=== PATIENT | female | born 1945 | race Caucasian/White ===

== ENCOUNTER → 2016-11-03 | Outpatient (CLI) | payer BC ==
[~2016-11-03] MED LIST: AMOX500C3 PO; ASPEC81 PO; ATOR10TA82 PO; B-CO1CAP3 PO; CEPH500C2 PO; CLTP PO; COEN75CA PO; CYAN100T6 PO; FISHOIL PO; GLC5 PO; GLC500 PO; LISI-725 PO; MULT-506 PO; PROP1TAB PO; SULF800T23 PO; [UNRECOGNIZED DRUG - OTHER]
--- NOTE | 2016-11-03 15:10 | DIAGNOSTIC IMAGING REPORT ---
RIGHT FOOT MIN 3 VIEWS ROUTINE CLINICAL HISTORY: Right first toe nonhealing wound. Evaluate for osteomyelitis. COMPARISON: None FINDINGS: There is extensive posterior calcaneal spurring. No acute fracture is identified. Tarsometatarsal joints are intact. There is mild soft tissue swelling along the medial aspect of the right first toe. There is no radiographic evidence of osteomyelitis. Lateral view demonstrates a suspected wound along the plantar aspect of the first toe. IMPRESSION: 1. No radiographic evidence of osteomyelitis. 2. Suspected wound along the plantar aspect of the right first toe at the level the proximal phalanx. Electronically signed by: Mando Garzon M.D. 11/03/2016 3:09 PM Dictated Date/Time: 11/03/2016 3:05 PM
== END | disposition home or self-care (01) ==
LOC: C.RAD 14:20
PROVIDERS: ATTEND Physician Assistant
DX: S91.301A Unspecified open wound, right foot, initial encounter (principal); X58.XXXA Exposure to other specified factors, initial encounter

== ENCOUNTER 2017-10-13 12:21 | Inpatient (IN) | payer BC, OTHER ==
[~2017-10-13] VITALS: Ht 162.6 cm; Wt 130.7 kg
[~2017-10-13 12:21] MED LIST changes: -AMOX500C3 PO; -CEPH500C2 PO; -SULF800T23 PO
[2017-10-13] MEDS ORDERED: ETOMIDATE 2 MG/ML 20 ML VIAL IV ONE (12:34)
--- NOTE | 2017-10-13 12:36 | EMERGENCY ROOM VISIT NOTE ---
History Report prepared by Laila: Tino Kennedy Under the Supervision of: Dr. Broderick Singh D.O. First contact with patient: 12:18 Stated Complaint: CARDIAC ASSESSMNET History of Present Illness The patient is a 72 year old female who presents to the Emergency Room via EMS with a persistent need for a cardiac assessment that started this morning. Per EMS, the patient had a syncopal episode, and was found laying next to her television. The patient has been having episodes of vomiting and diarrhea since then, and was presently vomiting upon EMS arrival. She says that every time she vomited, she would be incontinent of urine. The patient was then put on the monitor, and was noted to be in SVT. EMS tried to break it with Adenosine, but the patient would shortly thereafter go back into SVT. Per EMS, the patient would get a little chest pain when she did break out of SVT. The patient states that she currently has abdominal pain. She denies any headaches. She states that she has been eating and drinking okay. Her sugars were noted to be 319. The patient states that she has been compliant with her medications. She notes no history of heart attacks. Source of History: patient, EMS, nursing staff Onset: This morning Position: chest Symptom Intensity: noted to be in SVT that won't break Quality: other (need for cardiac assessment) Associated Symptoms: + LOC, + chest pain, + vomiting, + abdominal pain, + diarrhea, + urinary symptoms (incontinence) Review of Systems See HPI for pertinent positives & negatives. A total of 10 systems reviewed and were otherwise negative. Past Medical & Surgical Medical Problems: (1) Diabetic foot ulcer (2) Diabetic peripheral neuropathy associated with type 2 diabetes mellitus (3) Foot deformity (4) Leukocytosis (5) Loss of sensation Family History No pertinent family history Social History Smoking Status: Former Smoker Alcohol Use: none Drug Use: none Marital Status: Occupation Status: retired Current/Historical Medications Scheduled Aspirin (Aspirin Ec), 81 MG PO DAILY Atorvastatin (Lipitor), 10 MG PO DAILY Calcium Carbonate-Vitamin D W/ (Caltrate 600 Plus), 2 TAB PO DAILY Coenzyme Q10 (Ubidecarenone) (Coq10), 1 TAB PO DAILY Dulaglutide (Trulicity), 1.5 MG INJ WK Glipizide (Glucotrol), 10 MG PO BID Hctz/Lisinopril (Lisinopril/Hctz 10/12.5 Mg), 1 TAB PO DAILY Magnesium Oxide (Mag-Ox), 400 MG PO DAILY Metformin Hcl (Glucophage), 500 MG PO TID Multivitamin (Multivitamin), 1 TAB PO DAILY Oxybutynin Chloride (Ditropan), 5 MG PO BID Polyethylene Glycol-Propylene (Systane), 1 DROPS OPB Q2H Propranolol (Inderal), 60 MG PO BID Venlafaxine Hcl (Venlafaxine Hcl Er), 1 TAB PO DAILY Miscellaneous Medications Cinnamon (Cinnamon), 500 MG PO Allergies Coded Allergies: Cetirizine & Related (Verified Allergy, Intermediate, ANAPHYLAXIS, 10/13/17 ) Hallucinations Hydroxyzine (Verified Allergy, Unknown, 10/13/17) Physical Exam Vital Signs Date Time Temp Pulse Resp B/P (MAP) Pulse Ox O2 Delivery O2 Flow Rate FiO2 10/13/17 16:17 96 Room Air 10/13/17 16:14 79 16 135/100 96 Room Air 10/13/17 15:22 84 16 149/72 96 Room Air 10/13/17 14:41 83 15 97 Room Air 10/13/17 14:40 138/73 10/13/17 14:32 118/68 10/13/17 14:11 86 21 98 Room Air 10/13/17 14:03 117/70 10/13/17 14:00 36.4 87 21 117/70 98 Room Air 10/13/17 13:41 87 20 95 10/13/17 13:36 87 21 112/82 98 Room Air 10/13/17 13:31 89 95/60 10/13/17 13:26 90 27 129/80 97 Room Air 10/13/17 13:21 87 24 126/84 95 Room Air 10/13/17 13:19 89 26 119/74 97 Room Air 10/13/17 13:16 134/62 10/13/17 13:11 119/74 10/13/17 13:10 87 29 119/74 100 Nasal Cannula 2.0 10/13/17 13:07 119/82 10/13/17 13:06 31 119/82 100 Nasal Cannula 3.0 10/13/17 13:03 94 10/13/17 13:02 202/173 10/13/17 12:58 143/103 10/13/17 12:58 94 32 143/103 98 Nasal Cannula 4.0 10/13/17 12:56 /80 10/13/17 12:54 100 43 92 Ambu-Bag 15.0 10/13/17 12:52 120/100 10/13/17 12:51 194 23 99 10/13/17 12:50 194 19 99 10/13/17 12:43 195 31 141/90 100 Nasal Cannula 4.0 10/13/17 12:41 141/90 10/13/17 12:41 200 10/13/17 12:38 97 Nasal Cannula 4.0 10/13/17 12:33 99 Nasal Cannula 4.0 10/13/17 12:33 Nasal Cannula 4.0 10/13/17 12:33 202 29 95 Room Air Physical Exam GENERAL: Patient is listless and slow to respond to questioning. Appeared to be very anxious appearing. EYES: The conjunctivae are clear. The pupils are round and reactive. EARS, NOSE, MOUTH AND THROAT: The nose is without any evidence of any deformity. Mucous membranes are moist tongue is midline NECK: The neck is nontender and supple. RESPIRATORY: Lung sounds are shallow with rales at both bases. No tachypnea appreciated. CARDIOVASCULAR: Heart sounds are tachycardic and regular. No definite murmur noted. GASTROINTESTINAL: The abdomen is moderately distended. No guarding or rigidity noted. MUSCULOSKELETAL/EXTREMITIES: There is no evidence of gross deformity full range of motion is noted in the hips and shoulders SKIN: There is pedal edema bilaterally. NEUROLOGIC: Patient is oriented x3, strength is symmetric. Medical Decision & Procedures ER Provider Diagnostic Interpretation: X-ray results as stated below per interpretation by me and the radiologist. CHEST ONE VIEW PORTABLE CLINICAL HISTORY: EVALUATE RESPIRATORY DISTRESS.DYSPNEA dyspnea COMPARISON STUDY: No previous studies for comparison. FINDINGS: The bones soft tissues and hemidiaphragms are normal. The cardiomediastinal silhouette is normal. The lungs are clear. The pulmonary vasculature is normal. IMPRESSION: Negative chest. The above report was generated using voice recognition software. It may contain grammatical, syntax or spelling errors. Electronically signed by: Aurelio Bee M.D. 10/13/2017 12:59 PM Dictated Date/Time: 10/13/2017 12:59 PM Laboratory Results 10/13/17 12:40 Red Blood Count 5.90, Mean Corpuscular Volume 86.4, Mean Corpuscular Hemoglobin 28.3, Mean Corpuscular Hemoglobin Concent 32.7, Mean Platelet Volume 9.6, Neutrophils (%) (Auto) 89.5, Lymphocytes (%) (Auto) 6.3, Monocytes (%) (Auto) 3.6, Eosinophils (%) (Auto) 0.1, Basophils (%) (Auto) 0.1, Neutrophils # (Auto) 20.20, Lymphocytes # (Auto) 1.41, Monocytes # (Auto) 0.81, Eosinophils # (Auto) 0.02, Basophils # (Auto) 0.03 10/13/17 16:13 Test 10/13/17 12:40 10/13/17 12:45 10/13/17 13:44 10/13/17 16:13 White Blood Count 22.55 K/uL (4.8-10.8) Red Blood Count 5.90 M/uL (4.2-5.4) Hemoglobin 16.7 g/dL (12.0-16.0) Hematocrit 51.0 % (37-47) Mean Corpuscular Volume 86.4 fL (80-100) Mean Corpuscular Hemoglobin 28.3 pg (25-34) Mean Corpuscular Hemoglobin Concent 32.7 g/dl (32-36) Platelet Count 337 K/uL (130-400) Mean Platelet Volume 9.6 fL (7.4-10.4) Neutrophils (%) (Auto) 89.5 % Lymphocytes (%) (Auto) 6.3 % Monocytes (%) (Auto) 3.6 % Eosinophils (%) (Auto) 0.1 % Basophils (%) (Auto) 0.1 % Neutrophils # (Auto) 20.20 K/uL (1.4-6.5) Lymphocytes # (Auto) 1.41 K/uL (1.2-3.4) Monocytes # (Auto) 0.81 K/uL (0.11-0.59) Eosinophils # (Auto) 0.02 K/uL (0-0.5) Basophils # (Auto) 0.03 K/uL (0-0.2) RDW Standard Deviation 42.3 fL (36.4-46.3) RDW Coefficient of Variation 13.4 % (11.5-14.5) Immature Granulocyte % (Auto) 0.4 % Immature Granulocyte # (Auto) 0.08 K/uL (0.00-0.02) Prothrombin Time 11.5 SECONDS (9.0-12.0) Prothromb Time International Ratio 1.1 (0.9-1.1) Activated Partial Thromboplast Time 23.0 SECONDS (21.0-31.0) Partial Thromboplastin Ratio 0.9 Magnesium Level 1.8 mg/dl (1.8-2.4) Total Bilirubin 0.3 mg/dl (0.2-1) Aspartate Amino Transf (AST/SGOT) 52 U/L (15-37) Alanine Aminotransferase (ALT/SGPT) 49 U/L (12-78) Alkaline Phosphatase 111 U/L (45-117) Total Creatine Kinase 67 U/L (26-192) Creatine Kinase MB 1.0 ng/ml (0.5-3.6) Creatine Kinase MB Ratio 1.5 (0-3.0) Troponin I < 0.015 ng/ml (0-0.045) Pro-B-Type Natriuretic Peptide 522 pg/ml (0-900) Total Protein 7.8 gm/dl (6.4-8.2) Albumin 3.2 gm/dl (3.4-5.0) Globulin 4.6 gm/dl (2.5-4.0) Albumin/Globulin Ratio 0.7 (0.9-2) Thyroid Stimulating Hormone (TSH) 3.410 uIu/ml (0.300-4.500) Free Thyroxine 1.23 ng/dl (0.80-1.60) Chemistry Specimen Hemolysis Bedside Hemoglobin 19.0 g/dl (12.0-16.0) Bedside Hematocrit 56 % (37-47) Bedside Sodium 138 mEq/L (135-144) Bedside Potassium 6.6 mEq/L (3.3-5.0) Bedside Chloride 100 mEq/L (101-112) Bedside Total CO2 29 mEq/l (24-31) Bedside Blood Urea Nitrogen 33 mg/dl (7-18) Bedside Creatinine 1.0 mg/dl (0.6-1.3) Bedside Glucose (other) 329 mg/dl (70-99) Bedside Ionized Calcium (Mary) 1.05 mmol/l (1.12-1.32) Bedside Lactic Acid Venous 2.75 mmol/L (0.90-1.70) Anion Gap 8.0 mmol/L (3-11) Est Creatinine Clear Calc Drug Dose 68.9 ml/min Estimated GFR () 63.2 Estimated GFR (Non- 54.5 BUN/Creatinine Ratio 21.6 (10-20) Lactic Acid Level 4.1 mmol/L (0.4-2.0) Calcium Level 8.8 mg/dl (8.5-10.1) Lipase 190 U/L (73-393) Laboratory results per my review. Medications Administered Medications (Trade) Dose Ordered Sig/Tasha Route Start Time Stop Time Status Last Admin Dose Admin Etomidate (Amidate Inj) 40 mg STK-MED ONCE IV 10/13/17 12:34 10/13/17 12:35 DC 10/13/17 12:52 20 MG Adenosine (Adenosine Iv) 6 mg STK-MED ONCE .ROUTE 10/13/17 12:43 10/13/17 12:44 DC 10/13/17 12:48 6 MG Adenosine (Adenosine Iv) 6 mg STK-MED ONCE .ROUTE 10/13/17 12:44 10/13/17 12:45 DC 10/13/17 12:48 6 MG Sodium Chloride 1,000 ml @ 999 mls/hr Q1H1M STAT IV 10/13/17 12:51 10/13/17 13:51 DC 10/13/17 12:51 999 MLS/HR Procedure Indication: Unstable SVT. Written consent was obtained after the risks and benefits were explained, including but not limited to pain, thermal burn, allergic reaction, aspiration, airway obstruction, laryngospasm, infection, hypotension, and cardiorespiratory arrest. At this time, the risks of the procedure are less than the risks of NOT performing the procedure. A time out was taken and the correct patient and procedure identified. The patient was on 100% via NRB and end tidal CO2 monitoring prior to the procedure. Suction, airway equipment, medications, respiratory equipment, ACLS cart, and appropriate personnel were prepared prior to the initiation of the procedure. Sedation was achieved utilizing Etomidate 20 mg. The biphasic defibrillator was set to 200 joules of energy and synched. After confirmation of sedation and "all clear" safety check the synchronized shock was delivered. This resulted in successful conversion of the dysrhythmia back into sinus rhythm. See nursing notes for dosages and times. There were no complications and the patient recovered uneventfully from the procedure. ECG Per My Interpretation Indication: chest pain Rate (beats per minute): 198 Rhythm: SVT Findings: ST depression (diffuse), other (no PVCs) Change: Repeat ECG: Normal sinus rhythm at 100 bpm. No ectopy, no acute ST segment abnormalities. No change from 02/22/12. ED Course 1226: The patient was evaluated in room A1. A complete history and physical examination were performed. 1251: NSS 1000 ml @ 999 mls/hr IV. 1255: The cardioversion with sedation was complete and the patient is recovering. 1328: I reevaluated and updated the patient. 1416: Upon reevaluation, the patient is resting. I discussed results and treatment plan with her. She verbalizes agreement and understanding. The patient will be evaluated for further management and care. 1421: I discussed the patient with Thu Emanuel. She will evaluate the patient for further treatment. Medical Decision Differential diagnosis: Etiologies such as cardiac ischemia, aortic dissection, pulmonary embolism, pneumonia, pneumothorax, musculoskeletal, infections, pericarditis, myocarditis , esophageal rupture, gastrointestinal, as well as others were entertained. Nursing notes reviewed. Additional history is obtained from the prehospital personnel. Additional history was obtained from patient's family members. The patient is a 72-year-old female who presented to the emergency department for syncope. She was found to be in SVT by the prehospital personnel. I received a prehospital medical command call about this patient. Valsalva maneuvers failed to resolve the SVT she also received multiple doses of adenosine. The patient arrived in the emergency department with improvement of her prehospital blood pressure. She was given another dose of adenosine and she still did not resolve her narrow complex tachycardia. Ultimately she started having more symptoms and was treated with synchronized cardioversion. The patient was treated with IV fluids. I discussed the patient's laboratory and radiographic studies with her. She was found to have an elevated white blood cell count but at this time I feel could be consistent with the ongoing SVT. The patient was feeling much better on subsequent reevaluation. I discussed her case with the on-call Critical access hospitalist group. They have agreed to evaluate the patient in the emergency department for further management and disposition. Medication Reconcilliation Current Medication List: was personally reviewed by me Blood Pressure Screening Patient's blood pressure: Normal blood pressure Consults Time Called: 1417 Consulting Physician: Thu Emanuel Returned Call: 1421 I discussed the patient with Thu Emanuel. She will evaluate the patient for further treatment. Impression Primary Impression: SVT (supraventricular tachycardia) Additional Impressions: Elevated WBC count Hyperglycemia Hyperkalemia Critical Care I have personally spent greater than 35 minutes of critical care time in the direct management of this patient. This includes bedside care, interpretation of diagnostic studies, and testing, discussion with consultants, patient, and family members, and other required patient management activities. This 35 minutes is in excess of all separately billable procedures. Scribe Attestation The scribe's documentation has been prepared under my direction and personally reviewed by me in its entirety. I confirm that the note above accurately reflects all work, treatment, procedures, and medical decision making performed by me. Departure Information Dispostion Being Evaluated By Hospitalist Jason Connolly M.D. (PCP) Problem Qualifiers Additional Impressions: Elevated WBC count Leukocytosis type: unspecified Qualified Codes: D72.829 - Elevated white blood cell count, unspecified
[2017-10-13] MEDS ORDERED: ADENOSINE IV SOLN 3 MG/ML 2 ML VIAL ONE ×2 (12:43→12:44)
[2017-10-13] MEDS ORDERED: SODIUM CHLORIDE 0.9% 1000ML 1,000 ML IV STA (12:51)
[2017-10-13 12:54] LABS: HEMOGLOBIN 16.7 g/dL (12.0-16.0); MEAN CELL VOLUME 86.4 fL (80-100); MEAN CORPUSCULAR HEMOGLOBIN 28.3 pg (25-34); MEAN CORPUSCULAR HGB CONC 32.7 g/dl (32-36); MEAN PLATELET VOLUME 9.6 fL (7.4-10.4); PLATELET COUNT 337 K/uL (130-400); RED CELL DISTRIBUTION WIDTH CV 13.4 % (11.5-14.5); RED CELL DISTRIBUTION WIDTH SD 42.3 fL (36.4-46.3); WHITE BLOOD COUNT 22.55 K/uL (4.8-10.8)
[2017-10-13 12:58] LABS: ISTAT IONIZED CALCIUM 1.05 mmol/l (1.12-1.32); ISTAT POTASSIUM 6.6 mEq/L (3.3-5.0)
--- NOTE | 2017-10-13 13:01 | DIAGNOSTIC IMAGING REPORT ---
CHEST ONE VIEW PORTABLE CLINICAL HISTORY: EVALUATE RESPIRATORY DISTRESS.DYSPNEA dyspnea COMPARISON STUDY: No previous studies for comparison. FINDINGS: The bones soft tissues and hemidiaphragms are normal. The cardiomediastinal silhouette is normal. The lungs are clear. The pulmonary vasculature is normal. IMPRESSION: Negative chest. The above report was generated using voice recognition software. It may contain grammatical, syntax or spelling errors. Electronically signed by: Aurelio Bee M.D. 10/13/2017 12:59 PM Dictated Date/Time: 10/13/2017 12:59 PM
[2017-10-13] MEDS ORDERED: VENL75CA73 PO (13:05)
[2017-10-13] MEDS ORDERED: DTR/5 PO (13:05)
[2017-10-13] MEDS ORDERED: GLIP10TA3 PO (13:05)
[2017-10-13] MEDS ORDERED: LISI-786 PO (13:05)
[2017-10-13] MEDS ORDERED: GLC/500 PO (13:05)
[2017-10-13] MEDS ORDERED: ASPI81TA28 PO (13:05)
[2017-10-13] MEDS ORDERED: CALCTAB7 PO (13:05)
[2017-10-13 13:06] VITALS: BP 119/82; O2SAT 100
[2017-10-13 13:08] LABS: INR 1.1 (0.9-1.1)
[2017-10-13 13:10] VITALS: BP 119/74; PULSE 87; O2SAT 100
[2017-10-13 13:17] LABS: ALBUMIN 3.2 gm/dl (3.4-5.0); ALT/SGPT 49 U/L (12-78); BLOOD UREA NITROGEN 21 mg/dl (7-18); CALCIUM 9.4 mg/dl (8.5-10.1); CARBON DIOXIDE 25 mmol/L (21-32); CREATININE 1.12 mg/dl (0.60-1.20); GLUCOSE 320 mg/dl (70-99); POTASSIUM 5.9 mmol/L (3.5-5.1); SODIUM 136 mmol/L (136-145)
[2017-10-13 13:19] VITALS: BP 119/74; PULSE 89; O2SAT 97
[2017-10-13 13:23] LABS: ALKALINE PHOSPHATASE 111 U/L (45-117); AST/SGOT 52 U/L (15-37); TOTAL PROTEIN 7.8 gm/dl (6.4-8.2)
[2017-10-13] MEDS ORDERED: MULT-506 PO (13:28)
[2017-10-13] MEDS ORDERED: CINN1CAP2 PO (13:31)
[2017-10-13] MEDS ORDERED: MAGN400T6 PO (13:31)
[2017-10-13] MEDS ORDERED: COEN1CAP PO (13:31)
[2017-10-13 13:34] LABS: BASO % 0.1 %; BASO ABS # 0.03 K/uL (0-0.2); EOS % 0.1 %; EOS ABS # 0.02 K/uL (0-0.5); IG# 0.08 K/uL (0.00-0.02); LYMPH % 6.3 %; LYMPH ABS # 1.41 K/uL (1.2-3.4); MONO % 3.6 %; MONO ABS # 0.81 K/uL (0.11-0.59); NEUT % 89.5 %
[2017-10-13] MEDS ORDERED: POLYETHYLENE (MIRALAX) 17 GM PACK PO PRN (16:00)
[2017-10-13] MEDS ORDERED: ACETAMINOPHEN 325 MG TAB PO PRN (16:00)
[2017-10-13] MEDS ORDERED: NITROGLYCERIN 0.4 MG SL PER TAB CHARGE SL PRN (16:00)
[2017-10-13] MEDS ORDERED: LSN/10125 PO (16:15)
[2017-10-13] MEDS ORDERED: VENL-273 PO (16:15)
[2017-10-13] MEDS ORDERED: POLYSOL4 OPB (16:15)
[2017-10-13] MEDS ORDERED: COEN150C4 PO (16:15)
[2017-10-13] MEDS ORDERED: DULA0.5I INJ (16:15)
[2017-10-13 16:17] VITALS: O2SAT 96; Ht 162.6 cm; Wt 130.7 kg
[2017-10-13] MEDS ORDERED: ONDANSETRON INJ 2 MG/ML 2 ML VIAL IV PRN (16:30)
[2017-10-13 16:47] LABS: CALCIUM 8.8 mg/dl (8.5-10.1); CREATININE 1.02 mg/dl (0.60-1.20); POTASSIUM 5.6 mmol/L (3.5-5.1)
[2017-10-13] MEDS ORDERED: INSULIN HUMAN REGULAR SC STA (17:31)
[2017-10-13] MEDS ORDERED: SODIUM POLYST. SULF SUSP 15G/60ML PO STA (17:31)
[2017-10-13] MEDS ORDERED: GLUCOSE 10 TABS/TUBE PO PRN (17:45)
[2017-10-13] MEDS ORDERED: DEXTROSE 50% 50 ML SYR IV PRN (17:45)
[2017-10-13] MEDS ORDERED: DC ALL PREVIOUSLY ORDERED DIABETES MEDS ONE (17:45)
[2017-10-13] MEDS ORDERED: GLUCAGON FOR INJ 1 MG VIAL SQ PRN (17:45)
[2017-10-13] MEDS ORDERED: GLUCOSE 40% GEL 15 GM TUBE PO PRN (17:45)
[2017-10-13] MEDS ORDERED: CALCIUM GLUCONATE 10% 1,000 MG in SODIUM CHLORIDE 0.9% 50ML 50 ML IV STA (17:55)
[2017-10-13] MEDS ORDERED: INSULIN HUMAN REGULAR PER UNIT 5 UNITS in SYRINGE 4.95 ML IV SCH (18:00)
[2017-10-13] MEDS ORDERED: INSULIN HUMAN REGULAR PER UNIT 10 UNITS in SYRINGE 9.9 ML IV SCH (18:00)
[2017-10-13] MEDS: SODIUM CHLORIDE 0.9% 1000ML 1,000 ML IV SCH (18:25)
[2017-10-13 20:00] VITALS: PULSE 79; TEMP 36.8; O2SAT 95
--- NOTE | 2017-10-13 20:32 | History and Physical ---
History & Physical Date & Time of Service: Oct 13, 2017 at 16:16 Chief Complaint: Cardiac Assessmnet Primary Care Physician: Jason West M.D. History of Present Illness Source: patient, clinic records, hospital records Pt is 72 y/o F with PMH diabetes mellitus 2, GERD, hypertension, PMR, obesity presented to ER via EMS for SVT. Patient reports this morning was feeling well , ate breakfast at 5:00AM, reports around 8 AM was going to go take a shower. Next thing patient knows she woke up on the floor. Patient reports tried to sit up when she did she had dizziness and reports had recurrent syncope times approximately 8 episodes. 2 family members who found her. EMS was called, upon their arrival patient was found to have repetitive vomiting and loose stools and was found to be in SVT. Patient was given adenosine 2 without conversion. Upon arrival to ER patient was sedated and cardioverted and converted to sinus rhythm. Patient given 1 L normal saline in ER. Patient reports prior to cardioversion was having nausea and diffuse abdominal pain. That has since resolved, no further vomiting or diarrhea. Patient denies any chest pain, shortness of breath, palpitations and denies any further dizziness. Patient denies any recent illness or fevers. Reports has been eating and drinking normally. Drinks 2 cups coffee and 4 cups green tea daily. Fasting blood sugars running 120-140. Was using tylenol a couple of weeks ago for left posterior neck discomfort after reported strain. Denies NSAID use. Denies any history of arrhythmias in the past, denies any history of AK. Patient reports chronic lower extremity edema, denies any worsening. Has ALEXANDER hose and compression boots to wear however reports has not been wearing compression boots recently. Denies fever/chills, SOLORZANO, orthopnea, cough, sore throat, choking , otalgia, rhinorrhea, rashes, hematuria, dysuria. History of cardiac cath 2004: Less than 30% LAD, hyperdynamic LV function. History dobutamine stress test in 2011: No inducible ischemia, EF: 55-59%, no significant valvular disease. Past Medical/Surgical History Medical Problems: (1) Diabetic peripheral neuropathy associated with type 2 diabetes mellitus Status: Chronic (2) DM type 2 (diabetes mellitus, type 2) Status: Chronic (3) GERD (gastroesophageal reflux disease) Status: Chronic (4) HTN (hypertension) Status: Chronic (5) Polymyalgia rheumatica Status: Chronic Surgical Problems: (1) Hx of appendectomy Status: Resolved (2) Hx of carpal tunnel repair Status: Resolved (3) Hx of cholecystitis Status: Resolved (4) Hx of rotator cuff surgery Status: Resolved (5) Hx of total hip arthroplasty Status: Resolved (6) Hx of total knee arthroplasty Status: Resolved Family History FH: CAD (coronary artery disease) FH: cancer Hypertension Social History Smoking Status: Former Smoker (quit 1999 - smoked 1.5 ppd x 35 years) Smokeless Tobacco Use: No Alcohol Use: none Drug Use: none Marital Status: Housing status: lives alone Occupational Status: retired Immunizations History of Influenza Vaccine: N/A Influenza Vaccine Date: May 23, 2010 History of Tetanus Vaccine?: Unknown History of Pneumococcal: Yes History of Hepatitis B Vaccine: No Allergies Coded Allergies: Cetirizine & Related (Verified Allergy, Intermediate, ANAPHYLAXIS, 10/13/17 ) Hallucinations Hydroxyzine (Verified Allergy, Unknown, 10/13/17) Home Medications Scheduled Aspirin (Aspirin Ec), 81 MG PO DAILY Atorvastatin (Lipitor), 10 MG PO DAILY Calcium Carbonate-Vitamin D W/ (Caltrate 600 Plus), 2 TAB PO DAILY Coenzyme Q10 (Ubidecarenone) (Coq10), 1 TAB PO DAILY Dulaglutide (Trulicity), 1.5 MG INJ WK Glipizide (Glucotrol), 10 MG PO BID Hctz/Lisinopril (Lisinopril/Hctz 10/12.5 Mg), 1 TAB PO DAILY Magnesium Oxide (Mag-Ox), 400 MG PO DAILY Metformin Hcl (Glucophage), 500 MG PO TID Multivitamin (Multivitamin), 1 TAB PO DAILY Oxybutynin Chloride (Ditropan), 5 MG PO BID Polyethylene Glycol-Propylene (Systane), 1 DROPS OPB Q2H Propranolol (Inderal), 60 MG PO BID Venlafaxine Hcl (Venlafaxine Hcl Er), 1 TAB PO DAILY Miscellaneous Medications Cinnamon (Cinnamon), 500 MG PO Review of Systems Constitutional: No fever, No chills, No weight loss Eyes: No worsening of vision, No eye pain, No redness, No discharge, No diplopia ENT: No hearing loss, No unusual epistaxis, No nasal symptoms, No sore throat, No tinnitus, No trouble swallowing Respiratory: No cough, No sputum, No wheezing, No dyspnea on exertion, No dyspnea at rest, No hemoptysis Cardiovascular: + problem reported (see HPI), No orthopnea, No PND, No palpitations Abdomen: + problem reported (see HPI), No GI bleeding Musculoskeletal: No joint pain, No muscle pain, No calf pain Neurologic: + balance problems (uses walker) Endocrine: No excessive thirst, No excessive urination Hematologic / Lymphatic: No abnormal bleeding/bruising, No clotting problems, No night sweats Integumentary: No rash, No itch Physical Exam Vital Signs Date Time Temp Pulse Resp B/P (MAP) Pulse Ox O2 Delivery O2 Flow Rate FiO2 10/13/17 16:14 79 16 135/100 96 Room Air 10/13/17 15:22 84 16 149/72 96 Room Air 10/13/17 14:41 83 15 97 Room Air 10/13/17 14:40 138/73 10/13/17 14:32 118/68 10/13/17 14:11 86 21 98 Room Air 10/13/17 14:03 117/70 10/13/17 14:00 36.4 87 21 117/70 98 Room Air 10/13/17 13:41 87 20 95 10/13/17 13:36 87 21 112/82 98 Room Air 10/13/17 13:31 89 95/60 10/13/17 13:26 90 27 129/80 97 Room Air 10/13/17 13:21 87 24 126/84 95 Room Air 10/13/17 13:19 89 26 119/74 97 Room Air 10/13/17 13:16 134/62 10/13/17 13:11 119/74 10/13/17 13:10 87 29 119/74 100 Nasal Cannula 2.0 10/13/17 13:07 119/82 10/13/17 13:06 31 119/82 100 Nasal Cannula 3.0 10/13/17 13:03 94 10/13/17 13:02 202/173 10/13/17 12:58 143/103 10/13/17 12:58 94 32 143/103 98 Nasal Cannula 4.0 10/13/17 12:56 /80 10/13/17 12:54 100 43 92 Ambu-Bag 15.0 10/13/17 12:52 120/100 10/13/17 12:51 194 23 99 10/13/17 12:50 194 19 99 10/13/17 12:43 195 31 141/90 100 Nasal Cannula 4.0 10/13/17 12:41 141/90 10/13/17 12:41 200 10/13/17 12:38 97 Nasal Cannula 4.0 10/13/17 12:33 99 Nasal Cannula 4.0 10/13/17 12:33 Nasal Cannula 4.0 10/13/17 12:33 202 29 95 Room Air General Appearance: no apparent distress (at this time), + obese Head: normocephalic, atraumatic Eyes: normal inspection, PERRL, EOMI, sclerae normal ENT: hearing grossly normal, pharynx normal, + pertinent finding (mucous membranes slightly dry) Neck: supple, no JVD, trachea midline Respiratory/Chest: lungs clear, normal breath sounds, no respiratory distress Cardiovascular: regular rate, rhythm, no murmur Abdomen/GI: normal bowel sounds, non tender, soft Extremities/Musculoskelatal: no calf tenderness, normal capillary refill, non- tender, + pertinent finding (pedal pushes and pulls intact, +venous stasis changes bilateral LE. +non-pitting edema LE) Neurologic/Psych: alert, normal mood/affect, oriented x 3 Skin: normal color, warm/dry (noted hair wet, from previous diaphoresis with SVT) Diagnostics Laboratory Results Results Past 24 Hours Test 10/13/17 12:40 10/13/17 12:45 10/13/17 16:13 Range/Units White Blood Count 22.55 4.8-10.8 K/uL Red Blood Count 5.90 4.2-5.4 M/uL Hemoglobin 16.7 12.0-16.0 g/dL Hematocrit 51.0 37-47 % Mean Corpuscular Volume 86.4 80-100 fL Mean Corpuscular Hemoglobin 28.3 25-34 pg Mean Corpuscular Hemoglobin Concent 32.7 32-36 g/dl Platelet Count 337 130-400 K/uL Mean Platelet Volume 9.6 7.4-10.4 fL Neutrophils (%) (Auto) 89.5 % Lymphocytes (%) (Auto) 6.3 % Monocytes (%) (Auto) 3.6 % Eosinophils (%) (Auto) 0.1 % Basophils (%) (Auto) 0.1 % Neutrophils # (Auto) 20.20 1.4-6.5 K/uL Lymphocytes # (Auto) 1.41 1.2-3.4 K/uL Monocytes # (Auto) 0.81 0.11-0.59 K/uL Eosinophils # (Auto) 0.02 0-0.5 K/uL Basophils # (Auto) 0.03 0-0.2 K/uL RDW Standard Deviation 42.3 36.4-46.3 fL RDW Coefficient of Variation 13.4 11.5-14.5 % Immature Granulocyte % (Auto) 0.4 % Immature Granulocyte # (Auto) 0.08 0.00-0.02 K/uL Prothrombin Time 11.5 9.0-12.0 SECONDS Prothromb Time International Ratio 1.1 0.9-1.1 Activated Partial Thromboplast Time 23.0 21.0-31.0 SECONDS Partial Thromboplastin Ratio 0.9 Sodium Level 136 136-145 mmol/L Potassium Level 5.9 3.5-5.1 mmol/L Chloride Level 100 98-107 mmol/L Carbon Dioxide Level 25 21-32 mmol/L Anion Gap 11.0 17.0 16-25 mmol/L Blood Urea Nitrogen 21 7-18 mg/dl Creatinine 1.12 0.60-1.20 mg/dl Estimated GFR () 56.4 Estimated GFR (Non- 48.7 BUN/Creatinine Ratio 19.1 10-20 Random Glucose 320 70-99 mg/dl Calcium Level 9.4 8.5-10.1 mg/dl Magnesium Level 1.8 1.8-2.4 mg/dl Total Bilirubin 0.3 0.2-1 mg/dl Aspartate Amino Transf (AST/SGOT) 52 15-37 U/L Alanine Aminotransferase (ALT/SGPT) 49 12-78 U/L Alkaline Phosphatase 111 45-117 U/L Total Creatine Kinase 67 26-192 U/L Creatine Kinase MB 1.0 0.5-3.6 ng/ml Creatine Kinase MB Ratio 1.5 0-3.0 Troponin I < 0.015 0-0.045 ng/ml Pro-B-Type Natriuretic Peptide 522 0-900 pg/ml Total Protein 7.8 6.4-8.2 gm/dl Albumin 3.2 3.4-5.0 gm/dl Globulin 4.6 2.5-4.0 gm/dl Albumin/Globulin Ratio 0.7 0.9-2 Beta-Hydroxybutyric Acid 0.2-2.81 mg/dL Thyroid Stimulating Hormone (TSH) 3.410 0.300-4.500 uIu/ml Free Thyroxine 1.23 0.80-1.60 ng/dl Chemistry Specimen Hemolysis Bedside Hemoglobin 19.0 12.0-16.0 g/dl Bedside Hematocrit 56 37-47 % Bedside Sodium 138 135-144 mEq/L Bedside Potassium 6.6 3.3-5.0 mEq/L Bedside Chloride 100 101-112 mEq/L Bedside Total CO2 29 24-31 mEq/l Bedside Blood Urea Nitrogen 33 7-18 mg/dl Bedside Creatinine 1.0 0.6-1.3 mg/dl Bedside Glucose (other) 329 70-99 mg/dl Bedside Ionized Calcium (Mary) 1.05 1.12-1.32 mmol/l Microbiology Results 10/13/17 Blood Culture, Received Pending 10/13/17 Blood Culture, Received Pending Diagnostic Radiology CXR: IMPRESSION: Negative chest. EKG Initial EKG: SVT, ST depression inferior, anterior/lateral leads Read by cardiology: Supraventricular tachycardia Left axis deviation Marked ST abnormality, possible inferolateral subendocardial injury Abnormal ECG When compared with ECG of 22-FEB-2012 11:31, Vent. rate has increased BY [address] now depressed in Inferior leads ST now depressed in Lateral leads Confirmed by VIDA MORIN ([id number]) on 10/13/2017 1:22:36 PM Repeat EKG: Sinus rhythm, no further ST depression in V5,V6, poor tracing II, III Read by cardiology: Normal sinus rhythm Low voltage QRS Inferior infarct , age undetermined Cannot rule out Anterior infarct , age undetermined Abnormal ECG When compared with ECG of 13-OCT-2017 12:37, (unconfirmed) Vent. rate has decreased BY 98 BPM Inferior infarct is now Present ST no longer depressed in Inferior leads ST no longer depressed in Anterolateral leads ... Impression Assessment and Plan SVT Pt with syncope this am, found to be in SVT with episodes of vomiting and diarrhea, did not respond to adenosine x 2 by EMS, was cardioverted in ER and in sinus rhythm. Since pt asymptomatic. TSH WNL. Pt given 1L NSS in ER. Magnesium 1.8 -IVF -trend troponin -echo -cardiology consult -cbc, bmp, magnesium in am HYPERKALEMIA K: 5.9 on hemolyzed specimen. repeat K: 5.6. No peaked T waves noted on EKG. -Pt given calcium IV, Insulin 5U IV,Kayexalate -monitor K -hold lisinopril at this time LEUKOCYTOSIS/ELEVATED LACTATE WBC: 22, Lactic acid: 4. Negative CXR. pending U/A and urine culture, pt without urine symptoms. Suspect stress response -IVF -repeat lactic acid -repeat cbc in am N/V/D, ABDOMINAL PAIN Pt had symptoms while in SVT, since converted no further N/V/D or abdominal pain. normal lipase. no abd tenderness on exam -continue to monitor, consider abd/pelvis CT if recurrent symptoms DM II/HYPERGLYCEMIA Glucose: 320, negative beta-hydroxybutyric acid. HA1C was 7.7 on 06/2017 -hold oral meds -Insulin R 5 U IV given -Lantus, NovoLog sliding scale per protocol HTN Stable, monitor at this time -holding lisinopril/hctz secondary to hyperkalemia -will continue propranolol at this time ELEVATED HGB Hgb: 16.7, previous out-pt Hgb WNL. may be concentrated -repeat cbc in am. if continued elevated consider heme/onc consult DVT Prophylaxis -Heparin SQ Disposition admit Tele Full Code as per discussion with pt Follows with Dr West for routine care Pt was seen with Dr Looney. See addendum Addendum: I have seen and examined the patient and agree with the provider above. Patient is stable and asymptomatic status post DC cardioversion earlier today. There is no further nausea vomiting or diarrhea. She denies chest pain or trouble breathing. Of concern is an elevated potassium. Initial sample was hemolyzed and repeated with persistent elevation. Etiologies include but not limited to lisinopril use, beta-iman use, transient acidosis. Will hold lisinopril for now, calcium given 5 units of insulin given with a sugar in the mid 300s which improved to 208, Kayexalate given. Repeat PRP is pending. It is possible that potassium elevation may have caused arrhythmia. Consult cardiology is pending for further workup. Monitor on telemetry overnight. Regarding CBC abnormalities, leukocytosis may be a stress response however in the presence of polycythemia, which the patient needs by diagnostic criteria, malignancy must be considered. Will hydrate overnight and repeat CBC in the morning, however, if abnormalities persist may consider hematology consult. Of note patient is a non-smoker with normal CBC in June of last year and does not have DERRICK or other secondary cause for polycythemia that is obvious at this time. DO Aayush Resuscitation Status Full code VTE Prophylaxis Will order VTE Prophylaxis: Yes Additional Copies To Jason West M.D.
[2017-10-13] MEDS ORDERED: PROPRANOLOL HCL 20 MG TAB PO SCH (21:00)
[2017-10-13 22:07] LABS: CALCIUM 8.9 mg/dl (8.5-10.1); CREATININE 0.88 mg/dl (0.60-1.20); POTASSIUM 4.6 mmol/L (3.5-5.1)
[2017-10-13] MEDS: OXYBUTYNIN CHLORIDE 5 MG TAB PO SCH (22:20)
[2017-10-13] MEDS: INSULIN ASPART 100 UNITS/ML 3 ML PEN SC SCH (22:24)
[2017-10-13] MEDS: INSULIN GLARGINE SOLOSTAR 100 UNITS/ML 3 ML PEN SC SCH (22:24)
[2017-10-13] MEDS: HEPARIN SOD 5000 UNIT/0.5 ML CARP SQ SCH (22:25)
[2017-10-14] VITALS (8 sets, daily range): BP systolic 108–131; BP diastolic 64–97; PULSE 67–118; TEMP 36.4–36.9; O2SAT 92–97
[2017-10-14] MEDS ORDERED: LORAZEPAM 0.5 MG TAB PO ONE (01:28)
[2017-10-14] MEDS: SODIUM CHLORIDE 0.9% 1000ML 1,000 ML IV SCH (02:53)
[2017-10-14 03:58] LABS: PTT PATIENT 23.8 SECONDS (21.0-31.0)
[2017-10-14 04:06] LABS: CALCIUM 8.1 mg/dl (8.5-10.1); CREATININE 0.78 mg/dl (0.60-1.20); POTASSIUM 4.6 mmol/L (3.5-5.1)
[2017-10-14 04:27] LABS: BASO % 0.1 %; BASO ABS # 0.02 K/uL (0-0.2); EOS % 0.9 %; EOS ABS # 0.15 K/uL (0-0.5); HEMATOCRIT 37.1 % (37-47); HEMOGLOBIN 11.9 g/dL (12.0-16.0); IG# 0.05 K/uL (0.00-0.02); LYMPH % 27.7 %; LYMPH ABS # 4.79 K/uL (1.2-3.4); MEAN CELL VOLUME 86.3 fL (80-100); MEAN CORPUSCULAR HEMOGLOBIN 27.7 pg (25-34); MEAN CORPUSCULAR HGB CONC 32.1 g/dl (32-36); MONO % 5.6 %; MONO ABS # 0.97 K/uL (0.11-0.59); NEUT % 65.4 %; NEUT ABS # 11.31 K/uL (1.4-6.5); PLATELET COUNT 271 K/uL (130-400); RED CELL DISTRIBUTION WIDTH CV 13.5 % (11.5-14.5); RED CELL DISTRIBUTION WIDTH SD 42.4 fL (36.4-46.3); WHITE BLOOD COUNT 17.29 K/uL (4.8-10.8)
[2017-10-14] MEDS: HEPARIN SOD 5000 UNIT/0.5 ML CARP SQ SCH ×3 (05:50→21:21)
[2017-10-14 06:54] LABS: HEMOGLOBIN A1C 9.3 % (4.5-5.6)
[2017-10-14] MEDS ORDERED: PROPRANOLOL HCL 20 MG TAB PO ONE (06:58)
[2017-10-14] MEDS: OXYBUTYNIN CHLORIDE 5 MG TAB PO SCH ×2 (07:35→21:19)
[2017-10-14] MEDS: ATORVASTATIN 10 MG TAB PO SCH (07:35)
[2017-10-14] MEDS: MAGNESIUM SULFATE 1GM / D5W 1 GM in PREMIXED IN D5W 100 ML IV SCH ×2 (07:35→07:37)
[2017-10-14] MEDS: MAGNESIUM OXIDE 400 MG TAB PO SCH (07:36)
[2017-10-14] MEDS: CALCIUM 600MG + VIT D 400 IU TAB PO SCH (07:36)
[2017-10-14] MEDS: VENLAFAXINE HCL XR 75 MG CAPXR PO SCH (07:36)
[2017-10-14] MEDS: ASPIRIN 81 MG ECTAB PO SCH (07:36)
[2017-10-14] MEDS: MULTIVITAMIN TAB PO SCH (07:37)
[2017-10-14] MEDS: INSULIN GLARGINE SOLOSTAR 100 UNITS/ML 3 ML PEN SC SCH ×2 (07:38→21:21)
[2017-10-14] MEDS: INSULIN ASPART 100 UNITS/ML 3 ML PEN SC SCH ×4 (07:57→21:00)
[2017-10-14] MEDS ORDERED: LISINOPRIL 10 MG TAB PO SCH (09:00)
[2017-10-14] MEDS ORDERED: APIXABAN 2.5 MG TAB PO ONE (11:00)
[2017-10-14] MEDS ORDERED: METOPROLOL TARTRATE 25 MG TAB PO ONE (11:00)
--- NOTE | 2017-10-14 11:15 | Cardiology Consultation ---
Cardiology Consultation Date of Consultation: Oct 14, 2017 History of Present Illness Ciara Baig is a 72-year-old female seen in cardiology consultation per the request of Shahana De PA-C and Dr Looney for the evaluation of tachycardia and syncope. The patient's primary care provider is Dr. Jason West. The patient has not followed with cardiology in the past. She has a long-standing history of propranolol therapy for hypertension she has been on this medication for years The patient recently been seen as an outpatient by family [facility] and complained of dizziness. An EKG performed as an outpatient was reportedly normal. Earwax was removed from her ears and she felt that her dizziness had since improved. Yesterday she was going about her morning routine she states that she was in her kitchen between 5 AM and 6 AM in the next thing she knew she woke up on the floor and it was closer to 8 AM. She stated that she felt like the room was going "up and down". Every time she would try to get up, she had severe nausea and vomited. She also lost control of both her bowels and bladder. She was ultimately able to retrieve her phone off a nearby table and family members came to her aid. EMS was summoned and upon arrival the patient was found to be in a narrow complex tachycardia at 198 bpm. The patient received adenosine 2 which was unsuccessful in converting her. She was assessed acutely in the emergency room by Dr. Singh and underwent emergent synchronized recurrent cardioversion receiving 200 J of biphasic energy with successful conversion to sinus rhythm yesterday. She remained in a sinus rhythm on telemetry overnight on the telemetry floor until 6:46 AM this morning when she has since converted to atrial fibrillation with mildly elevated ventricular rates in the range of 100 150 bpm at rest. Findings on presentation yesterday included elevated potassium of 5.9-6.6 and she subsequently received medication therapy for this including insulin, calcium gluconate, and Kayexalate as well as IV fluids. Her potassium has improved to 4.6 mmol/L this morning. She had a mildly elevated lactate level of 2.75 mmol/L yesterday. Her initial troponin at 1240 yesterday was negative, but she had 2 borderline mild elevations in the meantime just after midnight last night and at 3:39 AM of 0.077 and 0.73 ng/ml respectively. The patient states that she feels completely fine at present. She describes not having any josias passing out spells prior to yesterday. She denies any cardiac history. Denies any history of tachycardia. As noted above she takes propranolol for the diagnosis of hypertension. She states that she has been in her normal state of health without any recent cough or cold symptoms. She is sitting out of bed in the bedside chair and is completely asymptomatic at the present time. She specifically denies headache. Past Medical/Surgical History Problem List: Medical Problems: (1) Diabetic foot ulcer (2) Diabetic peripheral neuropathy associated with type 2 diabetes mellitus (3) DM type 2 (diabetes mellitus, type 2) (4) Foot deformity (5) GERD (gastroesophageal reflux disease) (6) HTN (hypertension) (7) Leukocytosis (8) Loss of sensation (9) Polymyalgia rheumatica Surgical Problems: (1) Hx of appendectomy (2) Hx of carpal tunnel repair (3) Hx of cholecystitis (4) Hx of rotator cuff surgery (5) Hx of total hip arthroplasty (6) Hx of total knee arthroplasty History Social History: The patient is a non-smoker. She is retired from the [employer]. Family History: No family history of premature coronary heart disease or significant arrhythmia that she recalls. Review Of Systems A 10 point review of systems is reviewed and is negative with the exception of that above. Allergies Coded Allergies: Cetirizine & Related (Verified Allergy, Intermediate, ANAPHYLAXIS, 10/13/17 ) Hallucinations Hydroxyzine (Verified Allergy, Unknown, 10/13/17) Medications Reported Home Medications Medications Dose Route/Sig Max Daily Dose Days Date Category Systane (Polyethylene Glycol-Propylene) 1 Luna Luna 1 Drops OPB Q2H 10/13/17 Reported Venlafaxine Hcl Er (Venlafaxine Hcl) 75 Mg Tab 1 Tab PO DAILY 10/13/17 Reported Lisinopril/Hctz 10/12.5 Mg (HCTZ/Lisinopril) 1 Ea Tab 1 Tab PO DAILY 30 10/13/17 Reported Trulicity (Dulaglutide) 1.5 Mg/0.5 Ml Inj 1.5 Mg INJ WK 10/13/17 Reported Coq10 (Coenzyme Q10 (Ubidecarenone)) 150 Mg Cap 1 Tab PO DAILY 10/13/17 Reported Mag-Ox (Magnesium Oxide) 400 Mg Tab 400 Mg PO DAILY 10/13/17 Reported Cinnamon 500 Mg Cap 500 Mg PO 10/13/17 Reported Multivitamin (Multivitamins) Tab 1 Tab PO DAILY 10/13/17 Reported Caltrate 600 Plus (Calcium Carbonate-Vitamin D W/) 1 Tab Tab 2 Tab PO DAILY 10/13/17 Reported Ditropan (Oxybutynin Chloride) 5 Mg Tab 5 Mg PO BID 10/13/17 Reported Glucotrol (Glipizide) 10 Mg Tab 10 Mg PO BID 10/13/17 Reported Glucophage (Metformin Hcl) 500 Mg Tab 500 Mg PO TID 10/13/17 Reported Aspirin Ec (Aspirin) 81 Mg Tab 81 Mg PO DAILY 10/13/17 Reported Lipitor (Atorvastatin Calcium) 10 Mg Tab 10 Mg PO DAILY 01/27/10 Reported Inderal (Propranolol HCl) 60 Mg Tab 60 Mg PO BID 01/27/10 Reported Physical Exam Vital Signs (Last 8hrs): Last 8 Hrs Date Time Temp Pulse Resp B/P (MAP) Pulse Ox O2 Delivery O2 Flow Rate FiO2 10/14/17 08:00 Room Air 10/14/17 07:42 36.9 117 18 122/92 (102) 97 Room Air 10/14/17 07:27 36.6 116 18 128/86 (100) 94 Room Air 10/14/17 04:17 36.8 67 18 131/64 (86) 96 Room Air 10/14/17 04:00 Room Air General Appearance: Alert and Oriented x3. NAD. Head: Normocephalic Atraumatic. Eyes: PERRLA, EOMI, conjunctiva and sclera clear Neck: Supple. No carotid bruits noted. No JVD. No HJD. Respiratory: Breath sounds clear to auscultation bilaterally. No w/r/r. Cardiovascular: Regular rhythm, tachycardic, no murmurs Abdomen: Normal bowel sounds, soft nontender. no abdominal bruits. Extremities: No edema, no clubbing or cyanosis. distal pulses 2/4 bilaterally. Neuro: No focal deficits. Psychiatric: Normal affect. Data Last Resulted 10/14/17 03:39 Red Blood Count 4.30, Mean Corpuscular Volume 86.3, Mean Corpuscular Hemoglobin 27.7, Mean Corpuscular Hemoglobin Concent 32.1, Mean Platelet Volume 9.0, Neutrophils (%) (Auto) 65.4, Lymphocytes (%) (Auto) 27.7, Monocytes (%) (Auto) 5.6, Eosinophils (%) (Auto) 0.9, Basophils (%) (Auto) 0.1, Neutrophils # (Auto) 11.31, Lymphocytes # (Auto) 4.79, Monocytes # (Auto) 0.97, Eosinophils # (Auto) 0.15, Basophils # (Auto) 0.02 Last Resulted 10/14/17 03:39 Past 24 Hours Test 10/13/17 12:40 10/13/17 18:53 10/14/17 00:20 10/14/17 03:39 Range/Units Creatine Kinase MB 1.0 0.5-3.6 ng/ml Creatine Kinase MB Ratio 1.5 0-3.0 Prothromb Time International Ratio 1.1 0.9-1.1 Prothrombin Time 11.5 9.0-12.0 SECONDS Total Creatine Kinase 67 26-192 U/L Troponin I < 0.015 0.038 0.077 *H 0.073 *H 0-0.045 ng/ml TSH screen is within normal limits at 3.4 EKG #1 ,10/13/2017 at 12:37 PM: Narrow complex tachycardia at 190 bpm, suggestive of supraventricular tachycardia or perhaps atrial flutter with one-to -one conduction. Market ST segment depression was noted in the inferior leads with ST elevation limited to lead aVR consistent with subendocardial ischemia. Compared to the prior EKG performed in 2011 the ventricular rate had increased by 125 bpm. EKG #2, post cardioversion on 10/13/2017 at 1255: Sinus rhythm at 100 bpm, cannot rule out anterior infarct, the previously noted ST segment depression and resolved. EKG # 3, performed this morning 10/14/2017 9:17 AM and reviewed independently: Atrial fibrillation with mildly elevated ventricular rate 101 bpm, previously under poor R-wave progression has resolved, ST segment depression noted on the first EKG remains resolved. Assessment & Plan Impression: 72-year-old female 1. Presented status post syncopal episode in the setting of very rapid tachycardia, EKG consistent with a supraventricular tachycardia or perhaps atrial flutter with one-to-one conduction, the patient had lost postural tone had a somewhat prolonged downtime, and was associated with nauseousness, vomiting, was found to have significant electrolyte abnormalities including hyperkalemia. -Significant ST segment depression was noted on her initial EKG with tachycardia -The tachycardia was refractory to adenosine treatment 2 prehospital by EMS, responded to synchronized emergent direct current cardioversion receiving [address] segment depression resolved. -Sinus rhythm was noted overnight with subsequent conversion to atrial fibrillation at 8:46 AM remains in atrial fibrillation with rapid ventricular rate, asymptomatic 2. History is otherwise notable for type 2 diabetes mellitus with peripheral neuropathy, hypertension, polymyalgia rheumatica Recommendations: At this time her hyperkalemia has resolved. Discontinue Propranolol. Proceed with metoprolol tartrate 25 mg by mouth every 6 hours for rate control. Start anticoagulation with Eliquis 5 mg twice daily for stroke prophylaxis. She is at high risk of cardioembolic stroke given her risk factors of female, age over 65 and almost 74, hypertension, and I do diabetes mellitus. [id number] score 4. I will have my office call her pharmacy to try to predict her out-of- pocket cost for her Eliquis. An echocardiogram has been ordered and will be reviewed when available. Future considerations include outpatient monitor to assess for recurrence of the very rapid narrow complex arrhythmia. This is refractory to conservative medication therapy, electrophysiology study may be necessary in the future.
--- NOTE | 2017-10-14 13:34 | Progress Note ---
Medicine Progress Note Date & Time of Visit: Oct 14, 2017 at 13:08. Subjective Pt was seen and examined Sitting in chair comfortable with family member Pt said that she feels fine Diarrhea and vomiting, dizziness resolved Denies any chest pain, palpitation, SOB Objective Last 8 Hrs Date Time Temp Pulse Resp B/P (MAP) Pulse Ox O2 Delivery O2 Flow Rate FiO2 10/14/17 11:52 36.8 92 20 120/78 (92) 97 Room Air 10/14/17 08:00 Room Air 10/14/17 07:42 36.9 117 18 122/92 (102) 97 Room Air 10/14/17 07:27 36.6 116 18 128/86 (100) 94 Room Air Physical Exam: General- No acute distress Head- atraumatic Eyes- PERRL, EOMI ENT- oropharynx clear Neck- supple, no JVD Lungs- clear to auscultation Heart- No murmur Abdomen- normal bowel sounds, soft Extremities- no calf tenderness Neuro- alert, oriented x 3; PERRL, EOMI Skin- warm & dry Laboratory Results: Last 24 Hours Test 10/13/17 13:44 10/13/17 16:12 10/13/17 16:13 10/13/17 18:53 Bedside Lactic Acid Venous 2.75 mmol/L Bedside Glucose 322 mg/dl Sodium Level 135 mmol/L Potassium Level 5.6 mmol/L Chloride Level 103 mmol/L Carbon Dioxide Level 24 mmol/L Anion Gap 8.0 mmol/L Blood Urea Nitrogen 22 mg/dl Creatinine 1.02 mg/dl Est Creatinine Clear Calc Drug Dose 68.9 ml/min Estimated GFR () 63.2 Estimated GFR (Non- 54.5 BUN/Creatinine Ratio 21.6 Random Glucose 351 mg/dl Lactic Acid Level 4.1 mmol/L Calcium Level 8.8 mg/dl Lipase 190 U/L Beta-Hydroxybutyric Acid 2.37 mg/dL Procalcitonin 0.25 ng/ml Troponin I 0.038 ng/ml Test 10/13/17 20:40 10/13/17 21:19 10/14/17 00:20 10/14/17 03:39 Bedside Glucose 208 mg/dl Sodium Level 137 mmol/L 138 mmol/L Potassium Level 4.6 mmol/L 4.6 mmol/L Chloride Level 103 mmol/L 104 mmol/L Carbon Dioxide Level 28 mmol/L 31 mmol/L Anion Gap 7.0 mmol/L 3.0 mmol/L Blood Urea Nitrogen 21 mg/dl 20 mg/dl Creatinine 0.88 mg/dl 0.78 mg/dl Est Creatinine Clear Calc Drug Dose 79.9 ml/min 90.1 ml/min Estimated GFR () 75.5 87.4 Estimated GFR (Non- 65.2 75.4 BUN/Creatinine Ratio 24.1 25.7 Random Glucose 224 mg/dl 182 mg/dl Lactic Acid Level 3.2 mmol/L Calcium Level 8.9 mg/dl 8.1 mg/dl Troponin I 0.077 ng/ml 0.073 ng/ml White Blood Count 17.29 K/uL Red Blood Count 4.30 M/uL Hemoglobin 11.9 g/dL Hematocrit 37.1 % Mean Corpuscular Volume 86.3 fL Mean Corpuscular Hemoglobin 27.7 pg Mean Corpuscular Hemoglobin Concent 32.1 g/dl Platelet Count 271 K/uL Mean Platelet Volume 9.0 fL Neutrophils (%) (Auto) 65.4 % Lymphocytes (%) (Auto) 27.7 % Monocytes (%) (Auto) 5.6 % Eosinophils (%) (Auto) 0.9 % Basophils (%) (Auto) 0.1 % Neutrophils # (Auto) 11.31 K/uL Lymphocytes # (Auto) 4.79 K/uL Monocytes # (Auto) 0.97 K/uL Eosinophils # (Auto) 0.15 K/uL Basophils # (Auto) 0.02 K/uL RDW Standard Deviation 42.4 fL RDW Coefficient of Variation 13.5 % Immature Granulocyte % (Auto) 0.3 % Immature Granulocyte # (Auto) 0.05 K/uL Activated Partial Thromboplast Time 23.8 SECONDS Partial Thromboplastin Ratio 0.9 Estimated Average Glucose 220 mg/dl Hemoglobin A1c 9.3 % Magnesium Level 1.5 mg/dl Triglycerides Level 228 mg/dl Cholesterol Level 103 mg/dl HDL Cholesterol 32 mg/dl LDL Cholesterol, Calculated 25 mg/dl VLDL Cholesterol, Calculated 46 mg/dl Cholesterol/HDL Ratio 3.2 Test 10/14/17 07:23 10/14/17 07:34 10/14/17 09:59 Bedside Glucose 182 mg/dl Lactic Acid Level 1.6 mmol/L Urine Color YELLOW Urine Appearance CLEAR Urine pH 5.0 Urine Specific [place] 1.015 Urine Protein NEG Urine Glucose (UA) 2+ Urine Ketones NEG Urine Occult Blood NEG Urine Nitrite NEG Urine Bilirubin NEG Urine Urobilinogen NEG Urine Leukocyte Esterase SMALL Urine WBC (Auto) 1-5 /hpf Urine RBC (Auto) 0-4 /hpf Urine Hyaline Casts (Auto) 1-5 /lpf Urine Epithelial Cells (Auto) >30 /lpf Urine Bacteria (Auto) NEG Date/Time Source Procedure Growth Status 10/13/17 13:40 Blood Blood Culture Pending Received 10/13/17 13:35 Blood Blood Culture Pending Received 10/14/17 09:59 Urine , Clean Catch Urine Culture Pending Received Assessment & Plan Rapid Tachycardia Possible supraventricular tachycardia VS atrial flutter with one-to-one conduction Received Adenosine x2 by EMS that was unsuccessful Was cardioverted in the ER at 200J that converted back to Sinus rhythm Now on Afib cardio on board Starting on metoprolol 25 mg q6h by cardio Continue monitor in tele Echo pending Afib HR has been btw 120 to 130 On metoprolol 25 mg q6h [id number] score 4 Starting on eliquis continue monitor HYPERKALEMIA K: 5.9 on admission Seems to be hemolyzed specimen. K stable Continue monitor BMP ELEVATED TROPONIN secondary to cardiovert with 200J Initial troponin negative on admission trop mildly elevated Denies any chest pain ELEVATED WBC Lactate elevated Possible reactive due to stress No signs of infection WBC trending down N/V/D, ABDOMINAL PAIN Resolved DM II/HYPERGLYCEMIA Recent Hba1c 9.3 oral meds on hold Insulin R 5 U IV given Lantus, NovoLog sliding scale per protocol HTN Stable DVT Prophylaxis D/C Heparin SQ since pt starting on eliquis Disposition Continue monitor in Tele Current Inpatient Medications: Current Inpatient Medications Medications (Trade) Dose Ordered Sig/Tasha Route Start Time Stop Time Status Last Admin Dose Admin Acetaminophen (Tylenol Tab) 650 mg Q4H PRN PO 10/13/17 16:00 11/12/17 15:59 Nitroglycerin (Nitrostat Tab) 0.4 mg UD PRN SL 10/13/17 16:00 11/12/17 15:59 Polyethylene (Miralax Powder Packet) 17 gm DAILY PRN PO 10/13/17 16:00 11/12/17 15:59 Ondansetron HCl (Zofran Inj) 4 mg Q6H PRN IV 10/13/17 16:30 11/12/17 16:29 Heparin Sodium (Porcine) (Heparin Sq 5000 Unit/0.5ml) 5,000 unit Q8 SQ 10/13/17 22:00 11/12/17 21:59 10/14/17 05:50 5,000 UNIT Aspirin (Ecotrin Tab) 81 mg DAILY PO 10/14/17 09:00 11/13/17 08:59 10/14/17 07:36 81 MG Atorvastatin Calcium (Lipitor Tab) 10 mg DAILY PO 10/14/17 09:00 11/13/17 08:59 10/14/17 07:35 10 MG Calcium/Vitamin D (Caltrate Plus Tab) 2 tab DAILY PO 10/14/17 09:00 11/13/17 08:59 10/14/17 07:36 2 TAB Magnesium Oxide (Mag-Ox Tab) 400 mg DAILY PO 10/14/17 09:00 11/13/17 08:59 10/14/17 07:36 400 MG Multivitamins (Multivitamin Tab) 1 tab DAILY PO 10/14/17 09:00 11/13/17 08:59 10/14/17 07:37 1 TAB Oxybutynin Chloride (Ditropan Tab) 5 mg BID PO 10/13/17 21:00 11/12/17 20:59 10/14/17 07:35 5 MG Venlafaxine HCl (effeXOR EXTENDED REL CAP) 75 mg DAILY PO 10/14/17 09:00 11/13/17 08:59 10/14/17 07:36 75 MG Miscellaneous Information (Order Awaiting Action) 1 ea QS N/A 10/14/17 00:00 11/13/17 00:00 Insulin Glargine (Lantus Solostar Pen) 10 units Q12 SC 10/13/17 21:00 11/12/17 20:59 10/14/17 07:38 10 UNITS Insulin Aspart (novoLOG ASPART) SLIDING SCALE If C... ACHS SC 10/13/17 21:00 11/12/17 20:59 10/14/17 12:08 6 UNITS Glucose (Glucose 40% Gel) 15-30 GRAMS 15 GRAMS... UD PRN PO 10/13/17 17:45 11/12/17 17:44 Glucose (Glucose Chew Tab) 4-8 Tablets 4 Tabl... UD PRN PO 10/13/17 17:45 11/12/17 17:44 Dextrose (Dextrose 50% 50ML Syringe) 25-50ML OF 50% DW IV FOR... UD PRN IV 10/13/17 17:45 11/12/17 17:44 Glucagon (Glucagon Inj) 1 mg UD PRN SQ 10/13/17 17:45 11/12/17 17:44 Metoprolol Tartrate (Lopressor Tab) 25 mg Q6 PO 10/14/17 18:00 11/13/17 17:59 Apixaban (Eliquis Tab) 5 mg BID PO 10/14/17 21:00 11/13/17 20:59
[2017-10-14] MEDS: METOPROLOL TARTRATE 25 MG TAB PO SCH ×2 (17:22→23:43)
[2017-10-14] MEDS ORDERED: PROPRANOLOL HCL 20 MG TAB PO SCH (21:00)
[2017-10-14] MEDS: APIXABAN 2.5 MG TAB PO SCH (21:20)
[2017-10-15 00:20] VITALS: BP 98/63; PULSE 117; TEMP 36.7; O2SAT 95
[2017-10-15] MEDS: METOPROLOL TARTRATE 25 MG TAB PO SCH ×3 (05:55→17:44)
[2017-10-15] MEDS: HEPARIN SOD 5000 UNIT/0.5 ML CARP SQ SCH ×2 (05:57→13:42)
[2017-10-15 07:35] VITALS: BP 137/80; PULSE 97; TEMP 36.5; O2SAT 95
[2017-10-15] MEDS: CALCIUM 600MG + VIT D 400 IU TAB PO SCH (07:51)
[2017-10-15] MEDS: OXYBUTYNIN CHLORIDE 5 MG TAB PO SCH ×2 (07:51→21:06)
[2017-10-15] MEDS: MULTIVITAMIN TAB PO SCH (07:51)
[2017-10-15] MEDS: APIXABAN 2.5 MG TAB PO SCH ×2 (07:51→21:07)
[2017-10-15] MEDS: ASPIRIN 81 MG ECTAB PO SCH (07:51)
[2017-10-15] MEDS: ATORVASTATIN 10 MG TAB PO SCH (07:51)
[2017-10-15] MEDS: VENLAFAXINE HCL XR 75 MG CAPXR PO SCH (07:51)
[2017-10-15] MEDS: MAGNESIUM OXIDE 400 MG TAB PO SCH (07:51)
[2017-10-15] MEDS: INSULIN GLARGINE SOLOSTAR 100 UNITS/ML 3 ML PEN SC SCH ×2 (08:24→21:13)
[2017-10-15] MEDS: INSULIN ASPART 100 UNITS/ML 3 ML PEN SC SCH ×4 (08:24→21:00)
[2017-10-15 09:46] LABS: HEMATOCRIT 39.5 % (37-47); HEMOGLOBIN 12.1 g/dL (12.0-16.0); MEAN CORPUSCULAR HEMOGLOBIN 26.7 pg (25-34); MEAN CORPUSCULAR HGB CONC 30.6 g/dl (32-36); MEAN PLATELET VOLUME 9.1 fL (7.4-10.4); PLATELET COUNT 256 K/uL (130-400); RED CELL DISTRIBUTION WIDTH CV 13.4 % (11.5-14.5); RED CELL DISTRIBUTION WIDTH SD 42.6 fL (36.4-46.3)
[2017-10-15 10:30] LABS: CALCIUM 8.4 mg/dl (8.5-10.1); CREATININE 0.68 mg/dl (0.60-1.20); POTASSIUM 4.4 mmol/L (3.5-5.1)
[2017-10-15 11:44] VITALS: BP 134/74; PULSE 101; TEMP 36.6; O2SAT 97
[2017-10-15] MEDS ORDERED: DILTIAZEM BOLUS / DRIP IV STA (12:29)
--- NOTE | 2017-10-15 12:40 | ECHOCARDIOGRAM REPORT ---
*NOTICE TO RECEIVING [employer] This information is strictly Confidential and protected under [place] law. [place] law prohibits you from making any further disclosure of this information unless further disclosure is expressly permitted by the written consent of the person to whom it pertains or is authorized by law. A general authorization for the release of medical or other information is not sufficient for this purpose. Hospital accepts no responsibility if the information is made available to any other person, INCLUDING THE PATIENT. Interpretation Summary * Name: ISIDRO MURPHY Study Date: 10/14/2017 02:12 PM BP: 120/78 mmHg * Patient Location: [facility] HR: 92 * : 1945 (M/d/yyyy) Gender: Female Height: 64 in * Age: 72 yrs Ethnicity: [place] Weight: 308 lb * Ordering Physician: Shahana De * Performed By: Imelda Gomes RDCS * * Reason For Study: Supraventricular Tachycardia * BSA: 2.4 m2 * -- Conclusions -- * The study was technically adequate for the referral indication. * Atrial fibrillation with mildly elevated ventricular rate was present during echocardiogram. * There is mild concentric left ventricular hypertrophy. * The left ventricular wall motion is normal. * Ejection Fraction = 60-65%. * The right ventricle is normal size. * The right ventricular systolic function is normal as assessed by tricuspid annular plane systolic excursion (TAPSE) (normal >1.5 cm). * The left atrium is mildly dilated. * Aortic valve sclerosis mild, without significant aortic valvular stenosis. Procedure Details * Limited views were obtained. * A complete two-dimensional transthoracic echocardiogram was performed (2D, M-mode, Doppler and color flow Doppler). Left Ventricle * The left ventricle is normal in size. * There is mild concentric left ventricular hypertrophy. * The basal septum is thickened and angulated consistent with sigmoid septum. * Left ventricular systolic function is normal. * Ejection Fraction = 60-65%. * The left ventricular wall motion is normal. Right Ventricle * The right ventricle is normal size. * The right ventricular systolic function is normal as assessed by tricuspid annular plane systolic excursion (TAPSE) (normal >1.5 cm). Atria * The left atrium is mildly dilated. * Right atrial size is normal. * There is no evidence of atrial septal defect, but resolution does not allow assessment for a patent foramen ovale. Mitral Valve * There is no mitral valve stenosis. * Significant mitral regurgitation is absent. Tricuspid Valve * The tricuspid valve is normal. * There is no tricuspid stenosis. * Significant tricuspid regurgitation is absent. * Doppler findings do not suggest pulmonary hypertension. Aortic Valve * The aortic valve is trileaflet. * Aortic valve sclerosis mild, without significant aortic valvular stenosis. * Aortic stenosis is absent. * There is no significant aortic regurgitation. Pulmonic Valve * The pulmonary valve is not well seen, but the Doppler examination is normal without significant regurgitation or stenosis. Great Vessels * The aortic root and proximal ascending aorta are normal sized. Pericardium/Pleural * There is no pericardial effusion. Great Vessels * Normal inferior vena cava diameter and respiratory variation suggests normal central venous pressure. * Normal inferior vena cava size and collapsability with sniff indicates a normal right atrial pressure of 3 mmHg Left Ventricular Diastolic Function * Left ventricular diastolic function is abnormal based on left atrial enlargement and left ventricular hypertrophy, but is not graded due to the presence of underlying atrial fibrillation. MMode 2D Measurements and Calculations IVSd 1.4 cm IVSs 1.7 cm LVIDd 3.8 cm LVIDs 2.5 cm LVPWd 1.0 cm LVPWs 1.1 cm IVS/LVPW 1.4 FS 35.2 % EDV(Teich) 62.0 ml ESV(Teich) 21.5 ml EF(Teich) 65.3 % EDV(cubed) 54.9 ml ESV(cubed) 14.9 ml EF(cubed) 72.8 % % IVS thick 22.2 % % LVPW thick 6.4 % LV mass(C)d 150.2 grams LV mass(C)dI 63.9 grams/m\S\2 LV mass(C)s 105.0 grams LV mass(C)sI 44.7 grams/m\S\2 SV(Teich) 40.5 ml SI(Teich) 17.2 ml/m\S\2 SV(cubed) 40.0 ml SI(cubed) 17.0 ml/m\S\2 Ao root diam 2.9 cm Ao root area 6.6 cm\S\2 ACS 1.9 cm LA dimension 5.1 cm LA/Ao 1.8 LVAd ap4 33.5 cm\S\2 LVLd ap4 8.7 cm EDV(MOD-sp4) 109.3 ml EDV(sp4-el) 109.6 ml LVAs ap4 17.6 cm\S\2 LVLs ap4 6.8 cm ESV(MOD-sp4) 41.6 ml ESV(sp4-el) 38.6 ml EF(MOD-sp4) 62.0 % EF(sp4-el) 64.8 % LVAd ap2 22.7 cm\S\2 LVLd ap2 7.9 cm EDV(MOD-sp2) 56.1 ml EDV(sp2-el) 55.5 ml LVAs ap2 12.7 cm\S\2 LVLs ap2 6.6 cm ESV(MOD-sp2) 22.4 ml ESV(sp2-el) 20.8 ml EF(MOD-sp2) 60.0 % EF(sp2-el) 62.5 % LVLd %diff -9.78 % EDV(MOD-bp) 78.9 ml LVLs %diff -3.34 % ESV(MOD-bp) 30.3 ml EF(MOD-bp) 61.7 % SV(MOD-sp4) 67.7 ml SI(MOD-sp4) 28.8 ml/m\S\2 SV(MOD-sp2) 33.7 ml SI(MOD-sp2) 14.3 ml/m\S\2 SV(MOD-bp) 48.6 ml SI(MOD-bp) 20.7 ml/m\S\2 SV(sp4-el) 71.0 ml SI(sp4-el) 30.2 ml/m\S\2 SV(sp2-el) 34.7 ml SI(sp2-el) 14.8 ml/m\S\2 Doppler Measurements and Calculations MV E max socrates 120.8 cm/sec MV dec time 0.15 sec Ao V2 max 184.6 cm/sec Ao max PG 13.6 mmHg Ao max PG (full) 9.1 mmHg LV V1 max PG 4.5 mmHg LV V1 max 106.2 cm/sec PA V2 max 138.5 cm/sec PA max PG 7.8 mmHg TR max socrates 207.5 cm/sec
[2017-10-15] MEDS ORDERED: DILTIAZEM HCL INJ 5 MG in SYRINGE 0 ML IV ONE (12:45)
[2017-10-15 13:38] VITALS: BP 121/76; PULSE 108; O2SAT 94
[2017-10-15] MEDS: DILTIAZEM HCL INJ 125 MG in DEXTROSE 5% 100ML IV PRN (13:40)
[2017-10-15] MEDS: MAGNESIUM SULFATE 1GM / D5W 1 GM in PREMIXED IN D5W 100 ML IV SCH ×2 (15:22→16:29)
[2017-10-15 15:29] VITALS: BP 132/85; PULSE 107; TEMP 37; O2SAT 95
--- NOTE | 2017-10-15 16:08 | Cardiology Follow-Up ---
Subjective General Date of Service: Oct 15, 2017. Chief Complaint: follow up atrial fibrillation Pt evaluation today including: conversation w/ patient, physical exam History of Present Illness The patient is a 72 year old female seen in follow up. Patient denies complaints. On telemetry earlier today AF in the 100-120 bpm range present. Pt tx to room 230-2 and Diltiazem infusion initiated at 5 mg/hr, and V rates now 90s. Allergies Coded Allergies: Cetirizine & Related (Verified Allergy, Intermediate, ANAPHYLAXIS, 10/13/17 ) Hallucinations Hydroxyzine (Verified Allergy, Unknown, 10/13/17) Social History Smoking Status: Former Smoker (quit 1999 - smoked 1.5 ppd x 35 years) Hx Tobacco Use In Past Year?: No Hx Alcohol Use - Type And Amou: No Hx Substance Use - Type And Am: No Problem List Medical Problems: (1) Elevated WBC count Status: Acute (2) Hyperglycemia Status: Acute (3) Hyperkalemia Status: Acute (4) SVT (supraventricular tachycardia) Status: Acute Physical Exam Vital Signs Last Vital Signs Documentation Date Time Temp Pulse Resp B/P (MAP) Pulse Ox O2 Delivery O2 Flow Rate FiO2 10/15/17 13:38 108 16 121/76 (91) 94 Room Air 10/15/17 11:44 36.6 10/13/17 13:10 2.0 Physical Exam Constitutional: Level of Distress: NAD Head: normocephalic Neck: supple Lungs: Auscultation: breath sounds normal, no wheezing, no rales/crackles Cardiovascular: Heart Auscultation: RRR, no murmurs, no rubs, irregular rate rhythm Abdomen: Inspection & Palpation: soft, non-distended Extremities: no edema Neurologic: Gait & Station: pertinent finding (no focal neuro deficits ) Assessment and Plan Assessment and Plan Impression: 72 year old female 1. AF, RVR, minimally symptomatic to asymptomatic 2. Presented with episode of josias sycope SVT vs AFL with 1:1: conduction, rate of 200 bpm, requiring emergent DCCV in ED. Plan: Rate control with oral metoprolol and diltiazem. Eliquis for AC. Checked outpt coverage, out of pocket cost $20 /day. Laboratory Results Last 24 Hours Test 10/14/17 16:43 10/14/17 20:54 10/15/17 07:54 10/15/17 09:36 Bedside Glucose 127 mg/dl 128 mg/dl 142 mg/dl White Blood Count 9.00 K/uL Red Blood Count 4.54 M/uL Hemoglobin 12.1 g/dL Hematocrit 39.5 % Mean Corpuscular Volume 87.0 fL Mean Corpuscular Hemoglobin 26.7 pg Mean Corpuscular Hemoglobin Concent 30.6 g/dl RDW Standard Deviation 42.6 fL RDW Coefficient of Variation 13.4 % Platelet Count 256 K/uL Mean Platelet Volume 9.1 fL Sodium Level 139 mmol/L Potassium Level 4.4 mmol/L Chloride Level 104 mmol/L Carbon Dioxide Level 28 mmol/L Anion Gap 7.0 mmol/L Blood Urea Nitrogen 13 mg/dl Creatinine 0.68 mg/dl Est Creatinine Clear Calc Drug Dose 100.0 ml/min Estimated GFR () 100.6 Estimated GFR (Non- 86.8 BUN/Creatinine Ratio 19.5 Random Glucose 214 mg/dl Calcium Level 8.4 mg/dl Magnesium Level 1.5 mg/dl Test 10/15/17 11:51 Bedside Glucose 175 mg/dl
--- NOTE | 2017-10-15 19:07 | Progress Note ---
Medicine Progress Note Date & Time of Visit: Oct 15, 2017 at 18:59. Subjective Pt was seen and examined Sitting at the edge of bed with no distress Pt said that she feels fine Denies any chest pain, palpitation, dizziness and SOB Objective Last 8 Hrs Date Time Temp Pulse Resp B/P (MAP) Pulse Ox O2 Delivery O2 Flow Rate FiO2 10/15/17 15:29 37.0 107 20 132/85 (101) 95 Room Air 10/15/17 13:38 108 16 121/76 (91) 94 Room Air 10/15/17 12:00 Room Air 10/15/17 11:44 36.6 101 17 134/74 (94) 97 Room Air Physical Exam: General- No acute distress Head- atraumatic Eyes- PERRL, EOMI ENT- oropharynx clear Neck- supple, no JVD Lungs- clear to auscultation Heart- No murmur Abdomen- normal bowel sounds, soft Extremities- no calf tenderness Neuro- alert, oriented x 3; PERRL, EOMI Skin- warm & dry Laboratory Results: Last 24 Hours Test 10/14/17 20:54 10/15/17 07:54 10/15/17 09:36 10/15/17 11:51 Bedside Glucose 128 mg/dl 142 mg/dl 175 mg/dl White Blood Count 9.00 K/uL Red Blood Count 4.54 M/uL Hemoglobin 12.1 g/dL Hematocrit 39.5 % Mean Corpuscular Volume 87.0 fL Mean Corpuscular Hemoglobin 26.7 pg Mean Corpuscular Hemoglobin Concent 30.6 g/dl RDW Standard Deviation 42.6 fL RDW Coefficient of Variation 13.4 % Platelet Count 256 K/uL Mean Platelet Volume 9.1 fL Sodium Level 139 mmol/L Potassium Level 4.4 mmol/L Chloride Level 104 mmol/L Carbon Dioxide Level 28 mmol/L Anion Gap 7.0 mmol/L Blood Urea Nitrogen 13 mg/dl Creatinine 0.68 mg/dl Est Creatinine Clear Calc Drug Dose 100.0 ml/min Estimated GFR () 100.6 Estimated GFR (Non- 86.8 BUN/Creatinine Ratio 19.5 Random Glucose 214 mg/dl Calcium Level 8.4 mg/dl Magnesium Level 1.5 mg/dl Test 10/15/17 16:43 Bedside Glucose 119 mg/dl Assessment & Plan AFIB Rapid Tachycardia Possible supraventricular tachycardia VS atrial flutter with one-to-one conduction Received Adenosine x2 by EMS that was unsuccessful Was cardioverted in the ER at 200J that converted back to Sinus rhythm HR has been in the low 100's cardio on board Continue metoprolol 25 mg q6h cardizem 5 mg IV given [id number] score 4 Continue Eliquis Continue monitor in tele Echo showed * The study was technically adequate for the referral indication. * Atrial fibrillation with mildly elevated ventricular rate was present during echocardiogram. * There is mild concentric left ventricular hypertrophy. * The left ventricular wall motion is normal. * Ejection Fraction = 60-65%. * The right ventricle is normal size. * The right ventricular systolic function is normal as assessed by tricuspid annular plane systolic excursion (TAPSE) (normal >1.5 cm). * The left atrium is mildly dilated. * Aortic valve sclerosis mild, without significant aortic valvular stenosis. r HYPERKALEMIA K: 5.9 on admission Seems to be hemolyzed specimen. K stable Continue monitor BMP HYPOMAGNESEMIA Mg 1.5 Replaced Monitor Mg level ELEVATED TROPONIN secondary to cardiovert with 200J Initial troponin negative on admission trop mildly elevated Denies any chest pain ELEVATED WBC Lactate elevated Possible reactive due to stress No signs of infection WBC trending wnl N/V/D, ABDOMINAL PAIN Resolved DM II/HYPERGLYCEMIA Recent Hba1c 9.3 oral meds on hold Insulin R 5 U IV given Lantus, NovoLog sliding scale per protocol HTN Stable DVT Prophylaxis D/C Heparin SQ since pt starting on eliquis Disposition Continue monitor in Tele Current Inpatient Medications: Current Inpatient Medications Medications (Trade) Dose Ordered Sig/Tasha Route Start Time Stop Time Status Last Admin Dose Admin Acetaminophen (Tylenol Tab) 650 mg Q4H PRN PO 10/13/17 16:00 11/12/17 15:59 10/15/17 11:53 650 MG Nitroglycerin (Nitrostat Tab) 0.4 mg UD PRN SL 10/13/17 16:00 11/12/17 15:59 Polyethylene (Miralax Powder Packet) 17 gm DAILY PRN PO 10/13/17 16:00 11/12/17 15:59 Ondansetron HCl (Zofran Inj) 4 mg Q6H PRN IV 10/13/17 16:30 11/12/17 16:29 Heparin Sodium (Porcine) (Heparin Sq 5000 Unit/0.5ml) 5,000 unit Q8 SQ 10/13/17 22:00 11/12/17 21:59 10/15/17 13:42 5,000 UNIT Aspirin (Ecotrin Tab) 81 mg DAILY PO 10/14/17 09:00 11/13/17 08:59 10/15/17 07:51 81 MG Atorvastatin Calcium (Lipitor Tab) 10 mg DAILY PO 10/14/17 09:00 11/13/17 08:59 10/15/17 07:51 10 MG Calcium/Vitamin D (Caltrate Plus Tab) 2 tab DAILY PO 10/14/17 09:00 11/13/17 08:59 10/15/17 07:51 2 TAB Magnesium Oxide (Mag-Ox Tab) 400 mg DAILY PO 10/14/17 09:00 11/13/17 08:59 10/15/17 07:51 400 MG Multivitamins (Multivitamin Tab) 1 tab DAILY PO 10/14/17 09:00 11/13/17 08:59 10/15/17 07:51 1 TAB Oxybutynin Chloride (Ditropan Tab) 5 mg BID PO 10/13/17 21:00 11/12/17 20:59 10/15/17 07:51 5 MG Venlafaxine HCl (effeXOR EXTENDED REL CAP) 75 mg DAILY PO 10/14/17 09:00 11/13/17 08:59 10/15/17 07:51 75 MG Miscellaneous Information (Order Awaiting Action) 1 ea QS N/A 10/14/17 00:00 11/13/17 00:00 Insulin Glargine (Lantus Solostar Pen) 10 units Q12 SC 10/13/17 21:00 11/12/17 20:59 10/15/17 08:24 10 UNITS Insulin Aspart (novoLOG ASPART) SLIDING SCALE If C... ACHS SC 10/13/17 21:00 11/12/17 20:59 10/15/17 17:47 4 UNITS Glucose (Glucose 40% Gel) 15-30 GRAMS 15 GRAMS... UD PRN PO 10/13/17 17:45 11/12/17 17:44 Glucose (Glucose Chew Tab) 4-8 Tablets 4 Tabl... UD PRN PO 10/13/17 17:45 11/12/17 17:44 Dextrose (Dextrose 50% 50ML Syringe) 25-50ML OF 50% DW IV FOR... UD PRN IV 10/13/17 17:45 11/12/17 17:44 Glucagon (Glucagon Inj) 1 mg UD PRN SQ 10/13/17 17:45 11/12/17 17:44 Metoprolol Tartrate (Lopressor Tab) 25 mg Q6 PO 10/14/17 18:00 11/13/17 17:59 10/15/17 17:44 25 MG Apixaban (Eliquis Tab) 5 mg BID PO 10/14/17 21:00 11/13/17 20:59 10/15/17 07:51 5 MG Diltiazem HCl 125 mg/Dextrose 125 ml @ 0 mls/hr Q0M PRN IV 10/15/17 12:45 11/14/17 12:44 10/15/17 13:40 5 MLS/HR
[2017-10-15 20:04] VITALS: BP 159/88; PULSE 114; TEMP 36.7; O2SAT 94
[2017-10-16] VITALS (12 sets, daily range): BP systolic 113–149; BP diastolic 50–96; PULSE 76–112; TEMP 36.3–37.1; O2SAT 93–97
[2017-10-16] MEDS: METOPROLOL TARTRATE 25 MG TAB PO SCH ×4 (00:15→17:01)
[2017-10-16] MEDS: MULTIVITAMIN TAB PO SCH (08:02)
[2017-10-16] MEDS: MAGNESIUM OXIDE 400 MG TAB PO SCH (08:03)
[2017-10-16] MEDS: ASPIRIN 81 MG ECTAB PO SCH (08:03)
[2017-10-16] MEDS: ATORVASTATIN 10 MG TAB PO SCH (08:03)
[2017-10-16] MEDS: CALCIUM 600MG + VIT D 400 IU TAB PO SCH (08:04)
[2017-10-16] MEDS: OXYBUTYNIN CHLORIDE 5 MG TAB PO SCH ×2 (08:04→21:05)
[2017-10-16] MEDS: APIXABAN 2.5 MG TAB PO SCH ×2 (08:04→21:06)
[2017-10-16] MEDS: VENLAFAXINE HCL XR 75 MG CAPXR PO SCH (08:06)
[2017-10-16] MEDS: INSULIN ASPART 100 UNITS/ML 3 ML PEN SC SCH ×4 (08:10→21:00)
[2017-10-16] MEDS: INSULIN GLARGINE SOLOSTAR 100 UNITS/ML 3 ML PEN SC SCH ×2 (08:10→21:08)
[2017-10-16 08:24] LABS: CALCIUM 8.4 mg/dl (8.5-10.1); CREATININE 0.56 mg/dl (0.60-1.20); POTASSIUM 4.5 mmol/L (3.5-5.1)
--- NOTE | 2017-10-16 10:54 | Cardiology Follow-Up ---
Subjective General Date of Service: Oct 16, 2017. Chief Complaint: follow up atrial fibrillation Pt evaluation today including: conversation w/ patient, conversation w/ family , physical exam, chart review, lab review, review of studies, review of inpatient medication list History of Present Illness The patient is a 72 year old female seen in follow-up. States she is feeling well. Denies chest pain or dyspnea on exertion with ambulation in her room. Telemetry demonstrates atrial fibrillation with an average heart rate of 90-100 bpm. Tolerating diet and medications. Intravenous Cardizem infusing at a rate of 5 mg/hr. Family present at bedside. Allergies Coded Allergies: Cetirizine & Related (Verified Allergy, Intermediate, ANAPHYLAXIS, 10/13/17 ) Hallucinations Hydroxyzine (Verified Allergy, Unknown, 10/13/17) Social History Smoking Status: Former Smoker (quit 1999 - smoked 1.5 ppd x 35 years) Hx Tobacco Use In Past Year?: No Hx Alcohol Use - Type And Amou: No Hx Substance Use - Type And Am: No Problem List Medical Problems: (1) Elevated WBC count Status: Acute (2) Hyperglycemia Status: Acute (3) Hyperkalemia Status: Acute (4) SVT (supraventricular tachycardia) Status: Acute Review of Systems Respiratory: + dyspnea on exertion, No cough, No sputum, No wheezing, No shortness of breath, No dyspnea at rest, No hemoptysis Cardiac: No chest pain, No orthopnea, No PND, No edema, No claudication, No palpitations Physical Exam Vital Signs Last Vital Signs Documentation Date Time Temp Pulse Resp B/P (MAP) Pulse Ox O2 Delivery O2 Flow Rate FiO2 10/16/17 08:01 36.8 102 18 131/84 (100) 95 Room Air 10/13/17 13:10 2.0 Physical Exam Constitutional: Level of Distress: NAD Head: normocephalic Neck: supple Lungs: Auscultation: breath sounds normal, no wheezing, no rales/crackles Cardiovascular: Heart Auscultation: RRR, no murmurs, no rubs, irregular rate rhythm Peripheral Pulses: Bruits: none appreciated Abdomen: Inspection & Palpation: soft, non-distended, no tenderness, guarding & rebound Extremities: no edema Neurologic: Gait & Station: pertinent finding (no focal neuro deficits ) Assessment and Plan Assessment and Plan Impression: 1. Atrial fibrillation with borderline rate control on an average ventricular rate of 90-100 bpm -Patient minimally symptomatic to asymptomatic 2. Syncope on presentation secondary to SVT vs AFL with 1:1: conduction, rate of 200 bpm, requiring emergent DCCV in ED. Plan: Continue rate control strategy with oral metoprolol and IV Cardizem. Eliquis for anticoagulation. Continue to monitor telemetry. Laboratory Results Last 24 Hours Test 10/15/17 11:51 10/15/17 16:43 10/15/17 21:04 10/16/17 06:55 Bedside Glucose 175 mg/dl 119 mg/dl 134 mg/dl 138 mg/dl Test 10/16/17 07:51 Sodium Level 139 mmol/L Potassium Level 4.5 mmol/L Chloride Level 105 mmol/L Carbon Dioxide Level 28 mmol/L Anion Gap 6.0 mmol/L Blood Urea Nitrogen 15 mg/dl Creatinine 0.56 mg/dl Est Creatinine Clear Calc Drug Dose 118.4 ml/min Estimated GFR () 107.2 Estimated GFR (Non- 92.5 BUN/Creatinine Ratio 26.3 Random Glucose 157 mg/dl Calcium Level 8.4 mg/dl Magnesium Level 1.6 mg/dl
[2017-10-16] MEDS: MAGNESIUM SULFATE 1GM / D5W 1 GM in PREMIXED IN D5W 100 ML IV SCH ×2 (11:17→12:38)
[2017-10-16] MEDS: DILTIAZEM HCL INJ 125 MG in DEXTROSE 5% 100ML IV PRN (11:53)
[2017-10-16] MEDS ORDERED: NURSING DECISION MEDICATION ORDER SCH (15:00)
[2017-10-16] MEDS ORDERED: LEVALBUTEROL 0.63MG/3 ML NEB INH PRN (15:00)
--- NOTE | 2017-10-16 16:49 | Progress Note ---
Medicine Progress Note Date & Time of Visit: Oct 16, 2017 at 16:36. Subjective Pt was seen and examined Lying in bed with no distress Pt was dizzy when she walked to the bathroom early She said that she was having a hard time to breath She said that she feels someone sitting in her chest Symptoms only last for about 5 minutes I checked the monitor and there was no burst on her HR currently she said that she feels better Pt is very anxious Objective Last 8 Hrs Date Time Temp Pulse Resp B/P (MAP) Pulse Ox O2 Delivery O2 Flow Rate FiO2 10/16/17 15:32 37.1 100 20 135/89 (104) 97 Nasal Cannula 2.0 10/16/17 15:05 98 21 128/96 (107) 97 Nasal Cannula 2.0 10/16/17 12:00 96 Room Air 10/16/17 11:52 36.7 103 18 113/59 (77) 93 Room Air Physical Exam: General- No acute distress Head- atraumatic Eyes- PERRL, EOMI ENT- oropharynx clear Neck- supple, no JVD Lungs- faint wheezing Heart- No murmur Abdomen- normal bowel sounds, soft Extremities- no calf tenderness Neuro- alert, oriented x 3; PERRL, EOMI Skin- warm & dry Laboratory Results: Last 24 Hours Test 10/15/17 16:43 10/15/17 21:04 10/16/17 06:55 10/16/17 07:51 Bedside Glucose 119 mg/dl 134 mg/dl 138 mg/dl Sodium Level 139 mmol/L Potassium Level 4.5 mmol/L Chloride Level 105 mmol/L Carbon Dioxide Level 28 mmol/L Anion Gap 6.0 mmol/L Blood Urea Nitrogen 15 mg/dl Creatinine 0.56 mg/dl Est Creatinine Clear Calc Drug Dose 118.4 ml/min Estimated GFR () 107.2 Estimated GFR (Non- 92.5 BUN/Creatinine Ratio 26.3 Random Glucose 157 mg/dl Calcium Level 8.4 mg/dl Magnesium Level 1.6 mg/dl Test 10/16/17 10:59 Bedside Glucose 187 mg/dl Assessment & Plan AFIB Rapid Tachycardia Possible supraventricular tachycardia VS atrial flutter with one-to-one conduction Received Adenosine x2 by EMS that was unsuccessful Was cardioverted in the ER at 200J that converted back to Sinus rhythm HR has been 90's 100's cardio on board Continue metoprolol 25 mg q6h Continue cardizem infusion [id number] score 4 Continue Eliquis Continue monitor in tele Echo showed * The study was technically adequate for the referral indication. * Atrial fibrillation with mildly elevated ventricular rate was present during echocardiogram. * There is mild concentric left ventricular hypertrophy. * The left ventricular wall motion is normal. * Ejection Fraction = 60-65%. * The right ventricle is normal size. * The right ventricular systolic function is normal as assessed by tricuspid annular plane systolic excursion (TAPSE) (normal >1.5 cm). * The left atrium is mildly dilated. * Aortic valve sclerosis mild, without significant aortic valvular stenosis. DIZZINESS Possible related to vasovagal vs orthostatic No burst or arrhythmia on tele EKG showed no ischemic changes SOB/Chest pressure Possible related to anxiety when she developed dizziness EKG no ischemic changes Will get a chest xray Resolved HYPERKALEMIA K: 5.9 on admission Seems to be hemolyzed specimen. K stable Continue monitor BMP HYPOMAGNESEMIA Mg 1.6 Replaced Monitor Mg level ELEVATED TROPONIN secondary to cardiovert with 200J Initial troponin negative on admission trop mildly elevated Denies any chest pain ELEVATED WBC Lactate elevated Possible reactive due to stress No signs of infection WBC trending wnl N/V/D, ABDOMINAL PAIN Resolved DM II/HYPERGLYCEMIA Recent Hba1c 9.3 oral meds on hold Insulin R 5 U IV given Lantus, NovoLog sliding scale per protocol HTN Stable DVT Prophylaxis D/C Heparin SQ since pt starting on eliquis Disposition Continue monitor in Tele Current Inpatient Medications: Current Inpatient Medications Medications (Trade) Dose Ordered Sig/Tasha Route Start Time Stop Time Status Last Admin Dose Admin Acetaminophen (Tylenol Tab) 650 mg Q4H PRN PO 10/13/17 16:00 11/12/17 15:59 10/15/17 11:53 650 MG Nitroglycerin (Nitrostat Tab) 0.4 mg UD PRN SL 10/13/17 16:00 11/12/17 15:59 Polyethylene (Miralax Powder Packet) 17 gm DAILY PRN PO 10/13/17 16:00 11/12/17 15:59 Ondansetron HCl (Zofran Inj) 4 mg Q6H PRN IV 10/13/17 16:30 11/12/17 16:29 Aspirin (Ecotrin Tab) 81 mg DAILY PO 10/14/17 09:00 11/13/17 08:59 10/16/17 08:03 81 MG Atorvastatin Calcium (Lipitor Tab) 10 mg DAILY PO 10/14/17 09:00 11/13/17 08:59 10/16/17 08:03 10 MG Calcium/Vitamin D (Caltrate Plus Tab) 2 tab DAILY PO 10/14/17 09:00 11/13/17 08:59 10/16/17 08:04 2 TAB Magnesium Oxide (Mag-Ox Tab) 400 mg DAILY PO 10/14/17 09:00 11/13/17 08:59 10/16/17 08:03 400 MG Multivitamins (Multivitamin Tab) 1 tab DAILY PO 10/14/17 09:00 11/13/17 08:59 10/16/17 08:02 1 TAB Oxybutynin Chloride (Ditropan Tab) 5 mg BID PO 10/13/17 21:00 11/12/17 20:59 10/16/17 08:04 5 MG Venlafaxine HCl (effeXOR EXTENDED REL CAP) 75 mg DAILY PO 10/14/17 09:00 11/13/17 08:59 10/16/17 08:06 75 MG Miscellaneous Information (Order Awaiting Action) 1 ea QS N/A 10/14/17 00:00 11/13/17 00:00 Insulin Glargine (Lantus Solostar Pen) 10 units Q12 SC 10/13/17 21:00 11/12/17 20:59 10/16/17 08:10 10 UNITS Insulin Aspart (novoLOG ASPART) SLIDING SCALE If C... ACHS SC 10/13/17 21:00 11/12/17 20:59 10/16/17 11:55 3 UNITS Glucose (Glucose 40% Gel) 15-30 GRAMS 15 GRAMS... UD PRN PO 10/13/17 17:45 11/12/17 17:44 Glucose (Glucose Chew Tab) 4-8 Tablets 4 Tabl... UD PRN PO 10/13/17 17:45 11/12/17 17:44 Dextrose (Dextrose 50% 50ML Syringe) 25-50ML OF 50% DW IV FOR... UD PRN IV 10/13/17 17:45 11/12/17 17:44 Glucagon (Glucagon Inj) 1 mg UD PRN SQ 10/13/17 17:45 11/12/17 17:44 Metoprolol Tartrate (Lopressor Tab) 25 mg Q6 PO 10/14/17 18:00 11/13/17 17:59 10/16/17 11:18 25 MG Apixaban (Eliquis Tab) 5 mg BID PO 10/14/17 21:00 11/13/17 20:59 10/16/17 08:04 5 MG Diltiazem HCl 125 mg/Dextrose 125 ml @ 0 mls/hr Q0M PRN IV 10/15/17 12:45 11/14/17 12:44 10/16/17 11:53 5 MLS/HR Levalbuterol (Xopenex 0.63 Mg/ 3 Ml Neb) 0.63 mg Q6R PRN INH 10/16/17 15:00 11/15/17 14:59 Multi-Ingredient Ointment (Eucerin Unscented Cr) 1 appln BID EXT 10/16/17 21:00 11/15/17 20:59
--- NOTE | 2017-10-16 20:27 | DIAGNOSTIC IMAGING REPORT ---
CHEST ONE VIEW PORTABLE CLINICAL HISTORY: SOB dyspnea COMPARISON STUDY: 10/13/2017 FINDINGS: Mild stable cardia megaly. Chronic elevation right hemidiaphragm. Lungs remain generally clear. Slight accentuation left basilar parenchymal markings. IMPRESSION: Slight accentuation left basilar parenchymal markings. Mild stable cardia megaly. The above report was generated using voice recognition software. It may contain grammatical, syntax or spelling errors. Electronically signed by: Aurelio Bee M.D. 10/16/2017 8:26 PM Dictated Date/Time: 10/16/2017 8:25 PM
[2017-10-16] MEDS: EUCERIN CR 120 GM JAR EXT SCH (21:06)
[2017-10-17] VITALS (8 sets, daily range): BP systolic 107–152; BP diastolic 67–84; PULSE 70–106; TEMP 36.5–36.9; O2SAT 92–96
[2017-10-17] MEDS: METOPROLOL TARTRATE 25 MG TAB PO SCH ×5 (00:28→23:59)
[2017-10-17 06:15] LABS: CALCIUM 8.6 mg/dl (8.5-10.1); CREATININE 0.59 mg/dl (0.60-1.20); POTASSIUM 4.4 mmol/L (3.5-5.1)
[2017-10-17] MEDS: EUCERIN CR 120 GM JAR EXT SCH ×2 (07:43→21:01)
[2017-10-17] MEDS: CALCIUM 600MG + VIT D 400 IU TAB PO SCH (07:44)
[2017-10-17] MEDS: OXYBUTYNIN CHLORIDE 5 MG TAB PO SCH ×2 (08:08→21:00)
[2017-10-17] MEDS: VENLAFAXINE HCL XR 75 MG CAPXR PO SCH (08:09)
[2017-10-17] MEDS: ASPIRIN 81 MG ECTAB PO SCH (08:09)
[2017-10-17] MEDS: ATORVASTATIN 10 MG TAB PO SCH (08:10)
[2017-10-17] MEDS: MULTIVITAMIN TAB PO SCH (08:10)
[2017-10-17] MEDS: APIXABAN 2.5 MG TAB PO SCH ×2 (08:10→21:00)
[2017-10-17] MEDS: MAGNESIUM SULFATE 1GM / D5W 1 GM in PREMIXED IN D5W 100 ML IV SCH ×2 (08:11→10:22)
[2017-10-17] MEDS: INSULIN ASPART 100 UNITS/ML 3 ML PEN SC SCH ×4 (08:16→21:07)
[2017-10-17] MEDS: INSULIN GLARGINE SOLOSTAR 100 UNITS/ML 3 ML PEN SC SCH ×2 (08:17→21:08)
[2017-10-17] MEDS ORDERED: MAGNESIUM SULFATE 1GM / D5W 1 GM in PREMIXED IN D5W 100 ML IV SCH (08:30)
--- NOTE | 2017-10-17 11:35 | Cardiology Follow-Up ---
Subjective General Date of Service: Oct 17, 2017. Chief Complaint: follow up atrial fibrillation Pt evaluation today including: conversation w/ patient, physical exam, chart review, lab review, review of studies, review of inpatient medication list History of Present Illness The patient is a 72 year old female seen in follow-up. Reports episode of dizziness yesterday followed by shortness of breath. Remains in atrial fibrillation on telemetry with an average heart rate of approximately 95-110 bpm. Feeling better today. Denies chest pain or unusual shortness of breath. No lightheadedness, dizziness, syncope, or near syncope. Allergies Coded Allergies: Cetirizine & Related (Verified Allergy, Intermediate, ANAPHYLAXIS, 10/13/17 ) Hallucinations Hydroxyzine (Verified Allergy, Unknown, 10/13/17) Social History Smoking Status: Former Smoker (quit 1999 - smoked 1.5 ppd x 35 years) Hx Tobacco Use In Past Year?: No Hx Alcohol Use - Type And Amou: No Hx Substance Use - Type And Am: No Problem List Medical Problems: (1) Elevated WBC count Status: Acute (2) Hyperglycemia Status: Acute (3) Hyperkalemia Status: Acute (4) SVT (supraventricular tachycardia) Status: Acute Review of Systems Respiratory: + dyspnea on exertion, No cough, No wheezing, No shortness of breath, No dyspnea at rest, No hemoptysis Cardiac: + edema, No chest pain, No orthopnea, No PND, No claudication, No palpitations Physical Exam Vital Signs Last Vital Signs Documentation Date Time Temp Pulse Resp B/P (MAP) Pulse Ox O2 Delivery O2 Flow Rate FiO2 10/17/17 08:00 36.7 70 18 124/84 (97) 92 Room Air 10/16/17 17:29 2.0 Physical Exam Constitutional: Level of Distress: NAD Head: normocephalic Neck: supple Lungs: Auscultation: breath sounds normal, no wheezing, no rales/crackles Cardiovascular: Heart Auscultation: RRR, no murmurs, no rubs, irregular rate rhythm Peripheral Pulses: Bruits: none appreciated Abdomen: Inspection & Palpation: soft, non-distended, no tenderness, guarding & rebound Extremities: no edema Neurologic: Gait & Station: pertinent finding (no focal neuro deficits ) Cranial Nerves: grossly intact Assessment and Plan Assessment and Plan Impression: 1. Atrial fibrillation with borderline rate control on an average ventricular rate of 90-110 bpm -Patient minimally symptomatic 2. Syncope on presentation secondary to SVT vs AFL with 1:1: conduction, rate of 200 bpm, requiring emergent DCCV in ED. Plan: Continue rate control strategy. Increase metoprolol to 37.5 mg every 6 hours. Wean intravenous Cardizem as tolerated. Eliquis for anticoagulation. Continue to monitor telemetry. Laboratory Results Last 24 Hours Test 10/16/17 16:18 10/16/17 20:35 10/17/17 05:20 10/17/17 06:34 Bedside Glucose 143 mg/dl 127 mg/dl 132 mg/dl Sodium Level 140 mmol/L Potassium Level 4.4 mmol/L Chloride Level 106 mmol/L Carbon Dioxide Level 30 mmol/L Anion Gap 5.0 mmol/L Blood Urea Nitrogen 12 mg/dl Creatinine 0.59 mg/dl Est Creatinine Clear Calc Drug Dose 112.3 ml/min Estimated GFR () 105.4 Estimated GFR (Non- 90.9 BUN/Creatinine Ratio 21.0 Random Glucose 134 mg/dl Calcium Level 8.6 mg/dl Magnesium Level 1.5 mg/dl
[2017-10-17] MEDS: DILTIAZEM HCL INJ 125 MG in DEXTROSE 5% 100ML IV PRN (17:13)
--- NOTE | 2017-10-17 17:50 | Progress Note ---
Medicine Progress Note Date & Time of Visit: Oct 17, 2017 at 17:47. Subjective Pt was seen and examined Sitting in chair comfortable with no distress Pt said that she feels much better today She said that she does not have any dizziness and chest pressure today Denies any chest pain, palpitation and SOB Objective Last 8 Hrs Date Time Temp Pulse Resp B/P (MAP) Pulse Ox O2 Delivery O2 Flow Rate FiO2 10/17/17 16:00 36.7 88 18 122/71 (88) 94 Room Air 10/17/17 16:00 96 Room Air 10/17/17 12:00 95 Room Air 10/17/17 11:55 36.5 84 18 107/72 (84) 96 Physical Exam: General- No acute distress Head- atraumatic Eyes- PERRL, EOMI ENT- oropharynx clear Neck- supple, no JVD Lungs- faint wheezing Heart- No murmur, irregular Abdomen- normal bowel sounds, soft Extremities- no calf tenderness Neuro- alert, oriented x 3; PERRL, EOMI Skin- warm & dry Laboratory Results: Last 24 Hours Test 10/16/17 20:35 10/17/17 05:20 10/17/17 06:34 10/17/17 11:38 Bedside Glucose 127 mg/dl 132 mg/dl 187 mg/dl Sodium Level 140 mmol/L Potassium Level 4.4 mmol/L Chloride Level 106 mmol/L Carbon Dioxide Level 30 mmol/L Anion Gap 5.0 mmol/L Blood Urea Nitrogen 12 mg/dl Creatinine 0.59 mg/dl Est Creatinine Clear Calc Drug Dose 112.3 ml/min Estimated GFR () 105.4 Estimated GFR (Non- 90.9 BUN/Creatinine Ratio 21.0 Random Glucose 134 mg/dl Calcium Level 8.6 mg/dl Magnesium Level 1.5 mg/dl Test 10/17/17 16:19 Bedside Glucose 167 mg/dl Assessment & Plan AFIB Rapid Tachycardia Possible supraventricular tachycardia VS atrial flutter with one-to-one conduction Received Adenosine x2 by EMS that was unsuccessful Was cardioverted in the ER at 200J that converted back to Sinus rhythm HR has been 90's 100's cardio on board Metoprolol increased to 37.5 mg BID Continue cardizem infusion [id number] score 4 Continue Eliquis Continue monitor in tele Echo showed * The study was technically adequate for the referral indication. * Atrial fibrillation with mildly elevated ventricular rate was present during echocardiogram. * There is mild concentric left ventricular hypertrophy. * The left ventricular wall motion is normal. * Ejection Fraction = 60-65%. * The right ventricle is normal size. * The right ventricular systolic function is normal as assessed by tricuspid annular plane systolic excursion (TAPSE) (normal >1.5 cm). * The left atrium is mildly dilated. * Aortic valve sclerosis mild, without significant aortic valvular stenosis. DIZZINESS Possible related to vasovagal vs orthostatic No burst or arrhythmia on tele EKG showed no ischemic changes resoled SOB/Chest pressure Possible related to anxiety when she developed dizziness EKG no ischemic changes Will get a chest xray Resolved HYPERKALEMIA K: 5.9 on admission Seems to be hemolyzed specimen. K stable Continue monitor BMP resolved HYPOMAGNESEMIA Mg 1.5 Replaced Check Mg later Monitor Mg level ELEVATED TROPONIN secondary to cardiovert with 200J Initial troponin negative on admission trop mildly elevated Denies any chest pain ELEVATED WBC Lactate elevated Possible reactive due to stress No signs of infection WBC trending wnl resolved N/V/D, ABDOMINAL PAIN Resolved DM II/HYPERGLYCEMIA Recent Hba1c 9.3 oral meds on hold Insulin R 5 U IV given Lantus, NovoLog sliding scale per protocol HTN Stable DVT Prophylaxis D/C Heparin SQ since pt starting on eliquis Disposition Continue monitor in Tele Current Inpatient Medications: Current Inpatient Medications Medications (Trade) Dose Ordered Sig/Tasha Route Start Time Stop Time Status Last Admin Dose Admin Acetaminophen (Tylenol Tab) 650 mg Q4H PRN PO 10/13/17 16:00 11/12/17 15:59 10/15/17 11:53 650 MG Nitroglycerin (Nitrostat Tab) 0.4 mg UD PRN SL 10/13/17 16:00 11/12/17 15:59 Polyethylene (Miralax Powder Packet) 17 gm DAILY PRN PO 10/13/17 16:00 11/12/17 15:59 Ondansetron HCl (Zofran Inj) 4 mg Q6H PRN IV 10/13/17 16:30 11/12/17 16:29 Aspirin (Ecotrin Tab) 81 mg DAILY PO 10/14/17 09:00 11/13/17 08:59 10/17/17 08:09 81 MG Atorvastatin Calcium (Lipitor Tab) 10 mg DAILY PO 10/14/17 09:00 11/13/17 08:59 10/17/17 08:10 10 MG Calcium/Vitamin D (Caltrate Plus Tab) 2 tab DAILY PO 10/14/17 09:00 11/13/17 08:59 10/17/17 07:44 2 TAB Multivitamins (Multivitamin Tab) 1 tab DAILY PO 10/14/17 09:00 11/13/17 08:59 10/17/17 08:10 1 TAB Oxybutynin Chloride (Ditropan Tab) 5 mg BID PO 10/13/17 21:00 11/12/17 20:59 10/17/17 08:08 5 MG Venlafaxine HCl (effeXOR EXTENDED REL CAP) 75 mg DAILY PO 10/14/17 09:00 11/13/17 08:59 10/17/17 08:09 75 MG Miscellaneous Information (Order Awaiting Action) 1 ea QS N/A 10/14/17 00:00 11/13/17 00:00 Insulin Glargine (Lantus Solostar Pen) 10 units Q12 SC 10/13/17 21:00 11/12/17 20:59 10/17/17 08:17 10 UNITS Insulin Aspart (novoLOG ASPART) SLIDING SCALE If C... ACHS SC 10/13/17 21:00 11/12/17 20:59 10/17/17 17:13 9 UNITS Glucose (Glucose 40% Gel) 15-30 GRAMS 15 GRAMS... UD PRN PO 10/13/17 17:45 11/12/17 17:44 Glucose (Glucose Chew Tab) 4-8 Tablets 4 Tabl... UD PRN PO 10/13/17 17:45 11/12/17 17:44 Dextrose (Dextrose 50% 50ML Syringe) 25-50ML OF 50% DW IV FOR... UD PRN IV 10/13/17 17:45 11/12/17 17:44 Glucagon (Glucagon Inj) 1 mg UD PRN SQ 10/13/17 17:45 11/12/17 17:44 Apixaban (Eliquis Tab) 5 mg BID PO 10/14/17 21:00 11/13/17 20:59 10/17/17 08:10 5 MG Diltiazem HCl 125 mg/Dextrose 125 ml @ 0 mls/hr Q0M PRN IV 10/15/17 12:45 11/14/17 12:44 10/17/17 17:13 5 MLS/HR Levalbuterol (Xopenex 0.63 Mg/ 3 Ml Neb) 0.63 mg Q6R PRN INH 10/16/17 15:00 11/15/17 14:59 10/16/17 17:26 0.63 MG Multi-Ingredient Ointment (Eucerin Unscented Cr) 1 appln BID EXT 10/16/17 21:00 11/15/17 20:59 10/17/17 07:43 1 APPLN Magnesium Oxide (Mag-Ox Tab) 400 mg DAILY PO 10/18/17 09:00 11/13/17 08:59 Metoprolol Tartrate (Lopressor Tab) 37.5 mg Q6 PO 10/17/17 12:00 11/13/17 17:59 10/17/17 17:10 37.5 MG
[2017-10-18] VITALS (10 sets, daily range): BP systolic 98–172; BP diastolic 62–86; PULSE 76–100; TEMP 36.3–36.7; O2SAT 94–96
[2017-10-18] MEDS: METOPROLOL TARTRATE 25 MG TAB PO SCH ×3 (06:09→17:14)
[2017-10-18 06:21] LABS: CALCIUM 9.1 mg/dl (8.5-10.1); CREATININE 0.55 mg/dl (0.60-1.20); POTASSIUM 4.6 mmol/L (3.5-5.1)
[2017-10-18] MEDS: APIXABAN 2.5 MG TAB PO SCH ×2 (08:16→20:48)
[2017-10-18] MEDS: OXYBUTYNIN CHLORIDE 5 MG TAB PO SCH ×2 (08:16→21:41)
[2017-10-18] MEDS: CALCIUM 600MG + VIT D 400 IU TAB PO SCH (08:16)
[2017-10-18] MEDS: ATORVASTATIN 10 MG TAB PO SCH (08:16)
[2017-10-18] MEDS: VENLAFAXINE HCL XR 75 MG CAPXR PO SCH (08:16)
[2017-10-18] MEDS: ASPIRIN 81 MG ECTAB PO SCH (08:16)
[2017-10-18] MEDS: EUCERIN CR 120 GM JAR EXT SCH ×2 (08:16→20:46)
[2017-10-18] MEDS: MULTIVITAMIN TAB PO SCH (08:17)
[2017-10-18] MEDS: INSULIN GLARGINE SOLOSTAR 100 UNITS/ML 3 ML PEN SC SCH ×2 (08:18→20:37)
[2017-10-18] MEDS: INSULIN ASPART 100 UNITS/ML 3 ML PEN SC SCH ×4 (08:18→20:37)
[2017-10-18] MEDS ORDERED: MAGNESIUM OXIDE 400 MG TAB PO SCH (09:00)
[2017-10-18] MEDS: MAGNESIUM SULFATE 1GM / D5W 1 GM in PREMIXED IN D5W 100 ML IV SCH ×3 (10:31→13:55)
--- NOTE | 2017-10-18 11:00 | Cardiology Follow-Up ---
Subjective General Date of Service: Oct 18, 2017. Chief Complaint: follow up atrial fibrillation Pt evaluation today including: conversation w/ patient, physical exam, chart review, lab review, review of studies, review of inpatient medication list History of Present Illness The patient is a 72 year old female seen in follow-up. Feeling better today. Denies dizziness or shortness of breath. Ambulating in her room without symptoms. Heart rate improved with titration of metoprolol. Receiving intravenous magnesium infusion. Requesting discharge. Allergies Coded Allergies: Cetirizine & Related (Verified Allergy, Intermediate, ANAPHYLAXIS, 10/13/17 ) Hallucinations Hydroxyzine (Verified Allergy, Unknown, 10/13/17) Social History Smoking Status: Former Smoker (quit 1999 - smoked 1.5 ppd x 35 years) Hx Tobacco Use In Past Year?: No Hx Alcohol Use - Type And Amou: No Hx Substance Use - Type And Am: No Problem List Medical Problems: (1) Elevated WBC count Status: Acute (2) Hyperglycemia Status: Acute (3) Hyperkalemia Status: Acute (4) SVT (supraventricular tachycardia) Status: Acute Review of Systems Respiratory: + dyspnea on exertion, No cough, No wheezing, No shortness of breath, No dyspnea at rest, No hemoptysis Cardiac: No chest pain, No orthopnea, No PND, No edema, No claudication Physical Exam Vital Signs Last Vital Signs Documentation Date Time Temp Pulse Resp B/P (MAP) Pulse Ox O2 Delivery O2 Flow Rate FiO2 10/18/17 08:01 96 Room Air 10/18/17 07:43 36.6 88 16 116/62 (80) 10/16/17 17:29 2.0 Physical Exam Constitutional: Level of Distress: NAD Head: normocephalic Neck: supple Lungs: Auscultation: breath sounds normal, no wheezing, no rales/crackles Cardiovascular: Heart Auscultation: no murmurs, no rubs, irregular rate rhythm Peripheral Pulses: Bruits: none appreciated Abdomen: Inspection & Palpation: soft, non-distended, no tenderness, guarding & rebound Extremities: no clubbing, no ulcers, pertinent finding (Lymphedema with stasis changes.) Neurologic: Gait & Station: pertinent finding (no focal neuro deficits ) Cranial Nerves: grossly intact Assessment and Plan Assessment and Plan Impression: 1. Atrial fibrillation with improved rate control -Patient asymptomatic 2. Syncope on presentation secondary to SVT vs AFL with 1:1: conduction, rate of 200 bpm, requiring emergent DCCV in ED. 3. Hypomagnesemia Plan: Transition patient to Toprol-XL 100 mg in the a.m., 50 mg in the evening at time of discharge. Continue intravenous magnesium replacement with oral supplementation as an outpatient. Discontinue intravenous Cardizem. Eliquis for anticoagulation. Continue to monitor telemetry. Patient may be discharged later after magnesium infusion if heart rate remains within acceptable range. Outpatient electrophysiology consultation recommended. I will schedule close outpatient cardiology follow-up in 1 week. Laboratory Results Last 24 Hours Test 10/17/17 11:38 10/17/17 16:19 10/17/17 19:44 10/17/17 20:22 Bedside Glucose 187 mg/dl 167 mg/dl 187 mg/dl Magnesium Level 1.5 mg/dl Test 10/18/17 05:31 10/18/17 06:56 Sodium Level 140 mmol/L Potassium Level 4.6 mmol/L Chloride Level 104 mmol/L Carbon Dioxide Level 29 mmol/L Anion Gap 7.0 mmol/L Blood Urea Nitrogen 12 mg/dl Creatinine 0.55 mg/dl Est Creatinine Clear Calc Drug Dose 119.1 ml/min Estimated GFR () 107.8 Estimated GFR (Non- 93.1 BUN/Creatinine Ratio 22.0 Random Glucose 162 mg/dl Calcium Level 9.1 mg/dl Magnesium Level 1.4 mg/dl Bedside Glucose 166 mg/dl
--- NOTE | 2017-10-18 17:55 | Progress Note ---
Medicine Progress Note Date & Time of Visit: Oct 18, 2017 at 17:49. Subjective Pt was seen and examined Sitting in chair with no distress eating lunch Pt said that she feels fine She would like to go home She denies any dizziness, palpitation and SOB Objective Last 8 Hrs Date Time Temp Pulse Resp B/P (MAP) Pulse Ox O2 Delivery O2 Flow Rate FiO2 10/18/17 16:07 96 Room Air 10/18/17 15:20 36.7 100 22 123/84 (97) 96 Room Air 10/18/17 12:35 96 Room Air 10/18/17 12:13 36.6 91 18 98/69 (79) 94 Physical Exam: General- No acute distress Head- atraumatic Eyes- PERRL, EOMI ENT- oropharynx clear Neck- supple, no JVD Lungs- faint wheezing Heart- No murmur, irregular Abdomen- normal bowel sounds, soft Extremities- no calf tenderness Neuro- alert, oriented x 3; PERRL, EOMI Skin- warm & dry Laboratory Results: Last 24 Hours Test 10/17/17 19:44 10/17/17 20:22 10/18/17 05:31 10/18/17 06:56 Magnesium Level 1.5 mg/dl 1.4 mg/dl Bedside Glucose 187 mg/dl 166 mg/dl Sodium Level 140 mmol/L Potassium Level 4.6 mmol/L Chloride Level 104 mmol/L Carbon Dioxide Level 29 mmol/L Anion Gap 7.0 mmol/L Blood Urea Nitrogen 12 mg/dl Creatinine 0.55 mg/dl Est Creatinine Clear Calc Drug Dose 119.1 ml/min Estimated GFR () 107.8 Estimated GFR (Non- 93.1 BUN/Creatinine Ratio 22.0 Random Glucose 162 mg/dl Calcium Level 9.1 mg/dl Test 10/18/17 11:06 10/18/17 16:04 Bedside Glucose 157 mg/dl 134 mg/dl Assessment & Plan AFIB Rapid Tachycardia Possible supraventricular tachycardia VS atrial flutter with one-to-one conduction Received Adenosine x2 by EMS that was unsuccessful Was cardioverted in the ER at 200J that converted back to Sinus rhythm HR has btw 115 to 130 on average in the last hour cardio on board Recommended to increase metoprolol to 100mg in am and 50mg HS on discharge cardizem infusion was d/c [id number] score 4 Continue Eliquis Pt just received metoprolol 37.5 mg, will give an additional 12.5 mg Continue monitor in tele Echo showed * The study was technically adequate for the referral indication. * Atrial fibrillation with mildly elevated ventricular rate was present during echocardiogram. * There is mild concentric left ventricular hypertrophy. * The left ventricular wall motion is normal. * Ejection Fraction = 60-65%. * The right ventricle is normal size. * The right ventricular systolic function is normal as assessed by tricuspid annular plane systolic excursion (TAPSE) (normal >1.5 cm). * The left atrium is mildly dilated. * Aortic valve sclerosis mild, without significant aortic valvular stenosis. DIZZINESS Possible related to vasovagal vs orthostatic No burst or arrhythmia on tele EKG showed no ischemic changes resoled SOB/Chest pressure Possible related to anxiety when she developed dizziness EKG no ischemic changes Will get a chest xray Resolved HYPERKALEMIA K: 5.9 on admission Seems to be hemolyzed specimen. K stable Continue monitor BMP resolved HYPOMAGNESEMIA Mg 1.5 Replaced Check Mg later starting on mg supplement ELEVATED TROPONIN secondary to cardiovert with 200J Initial troponin negative on admission trop mildly elevated Denies any chest pain ELEVATED WBC Lactate elevated Possible reactive due to stress No signs of infection WBC trending wnl resolved N/V/D, ABDOMINAL PAIN Resolved DM II/HYPERGLYCEMIA Recent Hba1c 9.3 oral meds on hold Insulin R 5 U IV given Lantus, NovoLog sliding scale per protocol HTN Stable DVT Prophylaxis D/C Heparin SQ since pt starting on eliquis Disposition Continue monitor in Tele Follow up with PCP Dr. West on 10/20 @ 2:45 PM Follow up with Cardiology Dr. sorensen on 10/25 @ 10:45 AM Consultants: Cardio Current Inpatient Medications: Current Inpatient Medications Medications (Trade) Dose Ordered Sig/Tasha Route Start Time Stop Time Status Last Admin Dose Admin Acetaminophen (Tylenol Tab) 650 mg Q4H PRN PO 10/13/17 16:00 11/12/17 15:59 10/15/17 11:53 650 MG Nitroglycerin (Nitrostat Tab) 0.4 mg UD PRN SL 10/13/17 16:00 11/12/17 15:59 Polyethylene (Miralax Powder Packet) 17 gm DAILY PRN PO 10/13/17 16:00 4/13/18 15:59 Ondansetron HCl (Zofran Inj) 4 mg Q6H PRN IV 10/13/17 16:30 11/12/17 16:29 Aspirin (Ecotrin Tab) 81 mg DAILY PO 10/14/17 09:00 11/13/17 08:59 10/18/17 08:16 81 MG Atorvastatin Calcium (Lipitor Tab) 10 mg DAILY PO 10/14/17 09:00 11/13/17 08:59 10/18/17 08:16 10 MG Calcium/Vitamin D (Caltrate Plus Tab) 2 tab DAILY PO 10/14/17 09:00 11/13/17 08:59 10/18/17 08:16 2 TAB Multivitamins (Multivitamin Tab) 1 tab DAILY PO 10/14/17 09:00 11/13/17 08:59 10/18/17 08:17 1 TAB Oxybutynin Chloride (Ditropan Tab) 5 mg BID PO 10/13/17 21:00 11/12/17 20:59 10/18/17 08:16 5 MG Venlafaxine HCl (effeXOR EXTENDED REL CAP) 75 mg DAILY PO 10/14/17 09:00 11/13/17 08:59 10/18/17 08:16 75 MG Miscellaneous Information (Order Awaiting Action) 1 ea QS N/A 10/14/17 00:00 11/13/17 00:00 Insulin Glargine (Lantus Solostar Pen) 10 units Q12 SC 10/13/17 21:00 11/12/17 20:59 10/18/17 08:18 10 UNITS Insulin Aspart (novoLOG ASPART) SLIDING SCALE If C... ACHS SC 10/13/17 21:00 11/12/17 20:59 10/18/17 17:16 5 UNITS Glucose (Glucose 40% Gel) 15-30 GRAMS 15 GRAMS... UD PRN PO 10/13/17 17:45 11/12/17 17:44 Glucose (Glucose Chew Tab) 4-8 Tablets 4 Tabl... UD PRN PO 10/13/17 17:45 11/12/17 17:44 Dextrose (Dextrose 50% 50ML Syringe) 25-50ML OF 50% DW IV FOR... UD PRN IV 10/13/17 17:45 11/12/17 17:44 Glucagon (Glucagon Inj) 1 mg UD PRN SQ 10/13/17 17:45 11/12/17 17:44 Apixaban (Eliquis Tab) 5 mg BID PO 10/14/17 21:00 11/13/17 20:59 10/18/17 08:16 5 MG Levalbuterol (Xopenex 0.63 Mg/ 3 Ml Neb) 0.63 mg Q6R PRN INH 10/16/17 15:00 11/15/17 14:59 10/16/17 17:26 0.63 MG Multi-Ingredient Ointment (Eucerin Unscented Cr) 1 appln BID EXT 10/16/17 21:00 11/15/17 20:59 10/18/17 08:16 1 APPLN Metoprolol Tartrate (Lopressor Tab) 37.5 mg Q6 PO 10/17/17 12:00 11/13/17 17:59 10/18/17 17:14 37.5 MG Magnesium Oxide (Mag-Ox Tab) 400 mg BID PO 10/18/17 21:00 11/13/17 08:59
[2017-10-18] MEDS ORDERED: METOPROLOL TARTRATE 25 MG TAB PO ONE (18:00)
[2017-10-18] MEDS: MAGNESIUM OXIDE 400 MG TAB PO SCH (20:47)
[2017-10-19] MEDS: METOPROLOL TARTRATE 25 MG TAB PO SCH ×3 (00:40→12:24)
[2017-10-19 03:50] VITALS: BP 167/88; PULSE 103; TEMP 36.5; O2SAT 94
[2017-10-19 07:03] VITALS: BP 139/82; PULSE 82; TEMP 36.5; O2SAT 96
[2017-10-19] MEDS: INSULIN ASPART 100 UNITS/ML 3 ML PEN SC SCH ×2 (08:35→12:26)
[2017-10-19] MEDS: ASPIRIN 81 MG ECTAB PO SCH (08:36)
[2017-10-19] MEDS: CALCIUM 600MG + VIT D 400 IU TAB PO SCH (08:36)
[2017-10-19] MEDS: MAGNESIUM OXIDE 400 MG TAB PO SCH (08:36)
[2017-10-19] MEDS: INSULIN GLARGINE SOLOSTAR 100 UNITS/ML 3 ML PEN SC SCH (08:36)
[2017-10-19] MEDS: OXYBUTYNIN CHLORIDE 5 MG TAB PO SCH (08:36)
[2017-10-19] MEDS: MULTIVITAMIN TAB PO SCH (08:36)
[2017-10-19] MEDS: EUCERIN CR 120 GM JAR EXT SCH (08:37)
[2017-10-19] MEDS: APIXABAN 2.5 MG TAB PO SCH (08:37)
[2017-10-19 09:57] LABS: HEMATOCRIT 40.9 % (37-47); HEMOGLOBIN 12.8 g/dL (12.0-16.0); MEAN CELL VOLUME 88.1 fL (80-100); MEAN CORPUSCULAR HEMOGLOBIN 27.6 pg (25-34); MEAN CORPUSCULAR HGB CONC 31.3 g/dl (32-36); PLATELET COUNT 297 K/uL (130-400); RED CELL DISTRIBUTION WIDTH CV 13.6 % (11.5-14.5); RED CELL DISTRIBUTION WIDTH SD 43.3 fL (36.4-46.3); WHITE BLOOD COUNT 10.28 K/uL (4.8-10.8)
[2017-10-19] MEDS: VENLAFAXINE HCL XR 75 MG CAPXR PO SCH (10:13)
[2017-10-19] MEDS: ATORVASTATIN 10 MG TAB PO SCH (10:13)
--- NOTE | 2017-10-19 10:31 | Progress Note ---
Internal Med Progress Note Date of Service: Oct 19, 2017. Provider Documentation: SUBJECTIVE: The patient was seen and examined Denies any complaints No arrhythmia observed in Tele OBJECTIVE: Vital Signs-as noted below Exam: General-No distress at rest Eyes-Normal ENT-normal Neck-supple Lungs-clear to ausucltate bilaterally Heart-Regular,no murmur appreciated Abdomen-Benign,no masses,bowel sound present Extremities-Chronic edema bilaterally Neuro-AAOx3 No focal neuro deficit Lab data as noted below. ASSESSMENT & PLAN: Atrial Fibrillation with RVR Possible supraventricular tachycardia VS atrial flutter with one-to-one conduction Received Adenosine x2 by EMS that was unsuccessful Was cardioverted in the ER at 200J that converted back to Sinus rhythm Was on Cardizem drip Appreciate cardiology input Recommended to increase metoprolol to 100mg in am and 50mg HS on discharge [id number] score 4 Continue Eliquis Echo showed * The study was technically adequate for the referral indication. * Atrial fibrillation with mildly elevated ventricular rate was present during echocardiogram. * There is mild concentric left ventricular hypertrophy. * The left ventricular wall motion is normal. * Ejection Fraction = 60-65%. * The right ventricle is normal size. * The right ventricular systolic function is normal as assessed by tricuspid annular plane systolic excursion (TAPSE) (normal >1.5 cm). * The left atrium is mildly dilated. * Aortic valve sclerosis mild, without significant aortic valvular stenosis. Rate is controlled Will check Electrolytes today Increase ambulation Likely to discharge this afternoon DIZZINESS Possible related to vasovagal vs orthostatic No burst or arrhythmia on tele EKG showed no ischemic changes No more episodes SOB/Chest pressure Possible related to anxiety when she developed dizziness EKG no ischemic changes Will get a chest xray -unremarkable No more episode HYPERKALEMIA K: 5.9 on admission Seems to be hemolyzed specimen. K stable Continue monitor BMP resolved HYPOMAGNESEMIA Mg 1.5 Replaced Check today ELEVATED TROPONIN secondary to cardiovert with 200J Initial troponin negative on admission trop mildly elevated Doubt any ACS ELEVATED WBC Lactate elevated Possible reactive due to stress No signs of infection WBC trending wnl resolved N/V/D, ABDOMINAL PAIN Resolved DM II/HYPERGLYCEMIA Recent Hba1c 9.3 oral meds on hold Insulin R 5 U IV given Lantus, NovoLog sliding scale per protocol HTN Stable DVT Prophylaxis D/C Heparin SQ since pt starting on eliquis Disposition Continue monitor in Tele Follow up with PCP Dr. West on 10/20 @ 2:45 PM Follow up with Cardiology Dr. sorensen on 10/25 @ 10:45 AM Consultants: Cardio Vital Signs: Date Time Temp Pulse Resp B/P (MAP) Pulse Ox O2 Delivery O2 Flow Rate FiO2 10/19/17 07:03 36.5 82 20 139/82 (101) 96 Room Air 10/19/17 04:00 Room Air Nasal Cannula 10/19/17 03:50 36.5 103 20 167/88 (114) 94 Room Air 10/18/17 23:59 Room Air Nasal Cannula 10/18/17 23:50 36.3 87 20 172/76 (108) 95 Room Air 10/18/17 20:00 Room Air Nasal Cannula 10/18/17 19:16 36.6 76 19 162/77 (105) 95 Room Air 10/18/17 16:07 96 Room Air 10/18/17 15:20 36.7 100 22 123/84 (97) 96 Room Air 10/18/17 12:35 96 Room Air 10/18/17 12:13 36.6 91 18 98/69 (79) 94 Lab Results: Results Past 24 Hours Test 10/18/17 11:06 10/18/17 16:04 10/18/17 17:55 10/18/17 20:07 Range/Units Bedside Glucose 157 134 175 70-90 mg/dl Magnesium Level 1.9 1.8-2.4 mg/dl Test 10/19/17 08:31 10/19/17 09:46 Range/Units Bedside Glucose 184 70-90 mg/dl White Blood Count 10.28 4.8-10.8 K/uL Red Blood Count 4.64 4.2-5.4 M/uL Hemoglobin 12.8 12.0-16.0 g/dL Hematocrit 40.9 37-47 % Mean Corpuscular Volume 88.1 80-100 fL Mean Corpuscular Hemoglobin 27.6 25-34 pg Mean Corpuscular Hemoglobin Concent 31.3 32-36 g/dl RDW Standard Deviation 43.3 36.4-46.3 fL RDW Coefficient of Variation 13.6 11.5-14.5 % Platelet Count 297 130-400 K/uL Mean Platelet Volume 9.0 7.4-10.4 fL
[2017-10-19 10:36] LABS: CALCIUM 8.9 mg/dl (8.5-10.1); CREATININE 0.71 mg/dl (0.60-1.20); POTASSIUM 4.7 mmol/L (3.5-5.1)
[2017-10-19 11:57] VITALS: BP 130/70; PULSE 71; TEMP 36.8; O2SAT 91
--- NOTE | 2017-10-19 13:06 | Cardiology Follow-Up ---
Subjective General Date of Service: Oct 19, 2017. Chief Complaint: follow up atrial fibrillation Pt evaluation today including: conversation w/ patient, physical exam, chart review, lab review, review of studies, review of inpatient medication list History of Present Illness The patient is a 72 year old female seen in follow-up. Spontaneously converted to normal sinus rhythm at 8 AM. Patient unaware of rhythm change. Feels well from a cardiovascular standpoint. No recurrent dizziness. Denies chest discomfort or unusual shortness of breath. Denies palpitations. Anxious for discharge. Allergies Coded Allergies: Cetirizine & Related (Verified Allergy, Intermediate, ANAPHYLAXIS, 10/13/17 ) Hallucinations Hydroxyzine (Verified Allergy, Unknown, 10/13/17) Social History Smoking Status: Former Smoker (quit 1999 - smoked 1.5 ppd x 35 years) Hx Tobacco Use In Past Year?: No Hx Alcohol Use - Type And Amou: No Hx Substance Use - Type And Am: No Problem List Medical Problems: (1) Elevated WBC count Status: Acute (2) Hyperglycemia Status: Acute (3) Hyperkalemia Status: Acute (4) SVT (supraventricular tachycardia) Status: Acute Review of Systems Respiratory: + dyspnea on exertion, No cough, No sputum, No wheezing, No shortness of breath, No dyspnea at rest, No hemoptysis Cardiac: No chest pain, No orthopnea, No PND, No edema, No claudication, No palpitations Physical Exam Vital Signs Last Vital Signs Documentation Date Time Temp Pulse Resp B/P (MAP) Pulse Ox O2 Delivery O2 Flow Rate FiO2 10/19/17 12:00 Room Air Nasal Cannula 10/19/17 11:57 36.8 71 19 130/70 (90) 91 10/16/17 17:29 2.0 Physical Exam Constitutional: Level of Distress: NAD Head: normocephalic Neck: supple Lungs: Auscultation: breath sounds normal, no wheezing, no rales/crackles Cardiovascular: Heart Auscultation: no murmurs, no rubs, irregular rate rhythm Peripheral Pulses: Bruits: none appreciated Abdomen: Inspection & Palpation: soft, non-distended, no tenderness, guarding & rebound Extremities: no clubbing, no ulcers, pertinent finding (Lymphedema with stasis changes.) Neurologic: Gait & Station: pertinent finding (no focal neuro deficits ) Cranial Nerves: grossly intact Assessment and Plan Assessment and Plan Impression: 1. Atrial fibrillation with spontaneous conversion to normal sinus rhythm -Patient asymptomatic 2. Syncope on presentation secondary to SVT vs AFL with 1:1: conduction, rate of 200 bpm, requiring emergent DCCV in ED. 3. Hypomagnesemia - supplemented Plan: Continue Toprol-XL 100 mg daily. Will give patient 50 mg Toprol-XL this afternoon prior to discharge. Continue p.o. magnesium supplementation with repeat basic metabolic panel and serum magnesium level in 1 week. Eliquis for anticoagulation. Outpatient electrophysiology consultation ordered. Close outpatient cardiology follow-up in 1 week. Laboratory Results Last 24 Hours Test 10/18/17 16:04 10/18/17 17:55 10/18/17 20:07 10/19/17 08:31 Bedside Glucose 134 mg/dl 175 mg/dl 184 mg/dl Magnesium Level 1.9 mg/dl Test 10/19/17 09:46 10/19/17 11:11 White Blood Count 10.28 K/uL Red Blood Count 4.64 M/uL Hemoglobin 12.8 g/dL Hematocrit 40.9 % Mean Corpuscular Volume 88.1 fL Mean Corpuscular Hemoglobin 27.6 pg Mean Corpuscular Hemoglobin Concent 31.3 g/dl RDW Standard Deviation 43.3 fL RDW Coefficient of Variation 13.6 % Platelet Count 297 K/uL Mean Platelet Volume 9.0 fL Sodium Level 138 mmol/L Potassium Level 4.7 mmol/L Chloride Level 101 mmol/L Carbon Dioxide Level 31 mmol/L Anion Gap 6.0 mmol/L Blood Urea Nitrogen 15 mg/dl Creatinine 0.71 mg/dl Est Creatinine Clear Calc Drug Dose 94.8 ml/min Estimated GFR () 97.9 Estimated GFR (Non- 84.5 BUN/Creatinine Ratio 20.5 Random Glucose 143 mg/dl Calcium Level 8.9 mg/dl Magnesium Level 1.6 mg/dl Chemistry Specimen Hemolysis Bedside Glucose 128 mg/dl
[2017-10-19 14:31] VITALS: BP 109/62; PULSE 67; TEMP 36.7; O2SAT 97
[2017-10-19] MEDS ORDERED: METOPROLOL SUCC 50MG EXT REL TAB PO ONE (15:00)
[2017-10-19] MEDS ORDERED: TPRSR50 PO (16:05)
[2017-10-19] MEDS ORDERED: APIX1TAB3 PO (16:05)
--- NOTE | 2017-10-19 16:07 | Discharge Instructions ---
Discharge Instructions Date of Service Oct 19, 2017. Admission Reason for Admission: Leukocytosis, Svt Discharge Discharge Diagnosis / Problem: A Fib with RVR Discharge Goals Goal(s): Prevent Disease Progression Activity Recommendations Activity Limitations: resume your previous activity . Instructions / Follow-Up Instructions / Follow-Up Follow up with PCP Dr. West on 10/20 @ 2:45 PM Follow up with Cardiology Dr. sorensen on 10/25 @ 10:45 AM Current Hospital Diet Patient's current hospital diet: AHA Diet (Heart Healthy), Diabetes Type 2 Diet Discharge Diet Recommended Diet: AHA Diet (Heart Healthy), Diabetes Type 2 Diet Pending Studies Studies pending at discharge: no Laboratory Results Hemoglobin A1c Test 10/14/17 03:39 Range/Units Estimated Average Glucose 220 mg/dl Hemoglobin A1c 9.3 H 4.5-5.6 % Lipid Panel Test 10/14/17 03:39 Range/Units Triglycerides Level 228 H 0-150 mg/dl Cholesterol Level 103 0-200 mg/dl HDL Cholesterol 32 mg/dl Cholesterol/HDL Ratio 3.2 LDL Cholesterol, Calculated 25 mg/dl Medical Emergencies . Who to Call and When: Medical Emergencies: If at any time you feel your situation is an emergency, please call 911 immediately. . Non-Emergent Contact Non-Emergency issues call your: Primary Care Provider . Past History Medical & Surgical History: (1) Atrial fibrillation with RVR (2) Diabetic peripheral neuropathy associated with type 2 diabetes mellitus (3) SVT (supraventricular tachycardia) (4) HTN (hypertension) (5) DM type 2 (diabetes mellitus, type 2) (6) Polymyalgia rheumatica . "Provider Documentation" section prepared by Franco Pinedo. .
[2017-10-19 16:23] VITALS: BP 109/62; PULSE 67; TEMP 36.7; O2SAT 97
--- NOTE | 2017-10-20 07:37 | Discharge Summary ---
Discharge Summary Date of Service Oct 20, 2017. Discharge Summary Admission Date: Oct 13, 2017 at 15:53 Discharge Date: Oct 19, 2017 Discharge Disposition: Home Principal Diagnosis: A Fib with RVR Secondary Diagnoses/Problems: Please see H&P and Hospital Progress note Consultations: Cardio Medication Reconciliation New Medications: Apixaban (Eliquis) 5 Mg Tab 5 MG PO BID, #60 TAB Metoprolol Succinate (Metoprolol Succinate ER) 50 Mg Tabcr 100 MG PO QAM for 30 Days, #30 Continued Medications: Aspirin (Aspirin Ec) 81 Mg Tab 81 MG PO DAILY Atorvastatin (Lipitor) 10 Mg Tab 10 MG PO DAILY, 0 Refills Calcium Carbonate-Vitamin D W/ (Caltrate 600 Plus) 1 Tab Tab 2 TAB PO DAILY, TAB Cinnamon (Cinnamon) 500 Mg Cap 500 MG PO Coenzyme Q10 (Ubidecarenone) (Coq10) 150 Mg Cap 1 TAB PO DAILY Dulaglutide (Trulicity) 1.5 Mg/0.5 Ml Inj 1.5 MG INJ WK Glipizide (Glucotrol) 10 Mg Tab 10 MG PO BID, TAB Magnesium Oxide (Mag-Ox) 400 Mg Tab 400 MG PO BID, TAB Metformin Hcl (Glucophage) 500 Mg Tab 500 MG PO TID, TAB Multivitamin (Multivitamin) Tab 1 TAB PO DAILY, TAB Oxybutynin Chloride (Ditropan) 5 Mg Tab 5 MG PO BID, TAB Polyethylene Glycol-Propylene (Systane) 1 Luna Luna 1 DROPS OPB Q2H for DRYNESS, #30 ML 5 Refills Venlafaxine Hcl (Venlafaxine Hcl Er) 75 Mg Tab 1 TAB PO DAILY Discontinued Medications: Hctz/Lisinopril (Lisinopril/Hctz 10/12.5 Mg) 1 Ea Tab 1 TAB PO DAILY for 30 Days, #30 TAB 5 Refills Propranolol (Inderal) 60 Mg Tab 60 MG PO BID, 0 Refills Admission Information HPI (per Admitting provider): Pt is 72 y/o F with PMH diabetes mellitus 2, GERD, hypertension, PMR, obesity presented to ER via EMS for SVT. Patient reports this morning was feeling well , ate breakfast at 5:00AM, reports around 8 AM was going to go take a shower. Next thing patient knows she woke up on the floor. Patient reports tried to sit up when she did she had dizziness and reports had recurrent syncope times approximately 8 episodes. 2 family members who found her. EMS was called, upon their arrival patient was found to have repetitive vomiting and loose stools and was found to be in SVT. Patient was given adenosine 2 without conversion. Upon arrival to ER patient was sedated and cardioverted and converted to sinus rhythm. Patient given 1 L normal saline in ER. Patient reports prior to cardioversion was having nausea and diffuse abdominal pain. That has since resolved, no further vomiting or diarrhea. Patient denies any chest pain, shortness of breath, palpitations and denies any further dizziness. Patient denies any recent illness or fevers. Reports has been eating and drinking normally. Drinks 2 cups coffee and 4 cups green tea daily. Fasting blood sugars running 120-140. Was using tylenol a couple of weeks ago for left posterior neck discomfort after reported strain. Denies NSAID use. Denies any history of arrhythmias in the past, denies any history of MS. Patient reports chronic lower extremity edema, denies any worsening. Has ALEXANDER hose and compression boots to wear however reports has not been wearing compression boots recently. Denies fever/chills, SOLORZANO, orthopnea, cough, sore throat, choking , otalgia, rhinorrhea, rashes, hematuria, dysuria. History of cardiac cath 2004: Less than 30% LAD, hyperdynamic LV function. History dobutamine stress test in 2011: No inducible ischemia, EF: 55-59%, no significant valvular disease. Past Medical/Surgical History Medical Problems: (1) Diabetic peripheral neuropathy associated with type 2 diabetes mellitus Status: Chronic (2) DM type 2 (diabetes mellitus, type 2) Status: Chronic (3) GERD (gastroesophageal reflux disease) Status: Chronic (4) HTN (hypertension) Status: Chronic (5) Polymyalgia rheumatica Status: Chronic Surgical Problems: (1) Hx of appendectomy Status: Resolved (2) Hx of carpal tunnel repair Status: Resolved (3) Hx of cholecystitis Status: Resolved (4) Hx of rotator cuff surgery Status: Resolved (5) Hx of total hip arthroplasty Status: Resolved (6) Hx of total knee arthroplasty Status: Resolved Family History FH: CAD (coronary artery disease) FH: cancer Hypertension Social History Smoking Status: Former Smoker (quit 1999 - smoked 1.5 ppd x 35 years) Smokeless Tobacco Use: No Alcohol Use: none Drug Use: none Marital Status: Housing status: lives alone Occupational Status: retired Immunizations History of Influenza Vaccine: N/A Influenza Vaccine Date: May 23, 2010 History of Tetanus Vaccine?: Unknown History of Pneumococcal: Yes History of Hepatitis B Vaccine: No Allergies Coded Allergies: Cetirizine & Related (Verified Allergy, Intermediate, ANAPHYLAXIS, 10/13/17 ) Hallucinations Hydroxyzine (Verified Allergy, Unknown, 10/13/17) Home Medications Scheduled Aspirin (Aspirin Ec), 81 MG PO DAILY Atorvastatin (Lipitor), 10 MG PO DAILY Calcium Carbonate-Vitamin D W/ (Caltrate 600 Plus), 2 TAB PO DAILY Coenzyme Q10 (Ubidecarenone) (Coq10), 1 TAB PO DAILY Dulaglutide (Trulicity), 1.5 MG INJ WK Glipizide (Glucotrol), 10 MG PO BID Hctz/Lisinopril (Lisinopril/Hctz 10/12.5 Mg), 1 TAB PO DAILY Magnesium Oxide (Mag-Ox), 400 MG PO DAILY Metformin Hcl (Glucophage), 500 MG PO TID Multivitamin (Multivitamin), 1 TAB PO DAILY Oxybutynin Chloride (Ditropan), 5 MG PO BID Polyethylene Glycol-Propylene (Systane), 1 DROPS OPB Q2H Propranolol (Inderal), 60 MG PO BID Venlafaxine Hcl (Venlafaxine Hcl Er), 1 TAB PO DAILY Miscellaneous Medications Cinnamon (Cinnamon), 500 MG PO Review of Systems Constitutional: No fever, No chills, No weight loss Eyes: No worsening of vision, No eye pain, No redness, No discharge, No diplopia ENT: No hearing loss, No unusual epistaxis, No nasal symptoms, No sore throat, No tinnitus, No trouble swallowing Respiratory: No cough, No sputum, No wheezing, No dyspnea on exertion, No dyspnea at rest, No hemoptysis Cardiovascular: + problem reported (see HPI), No orthopnea, No PND, No palpitations Abdomen: + problem reported (see HPI), No GI bleeding Musculoskeletal: No joint pain, No muscle pain, No calf pain Neurologic: + balance problems (uses walker) Endocrine: No excessive thirst, No excessive urination Hematologic / Lymphatic: No abnormal bleeding/bruising, No clotting problems, No night sweats Integumentary: No rash, No itch Physical Exam H&P v2 Physical Exam Vital Signs Date Time Temp Pulse Resp B/P (MAP) Pulse Ox O2 Delivery O2 Flow Rate FiO2 10/13/17 16:14 79 16 135/100 96 Room Air 10/13/17 15:22 84 16 149/72 96 Room Air 10/13/17 14:41 83 15 97 Room Air 10/13/17 14:40 138/73 10/13/17 14:32 118/68 10/13/17 14:11 86 21 98 Room Air 10/13/17 14:03 117/70 10/13/17 14:00 36.4 87 21 117/70 98 Room Air 10/13/17 13:41 87 20 95 10/13/17 13:36 87 21 112/82 98 Room Air 10/13/17 13:31 89 95/60 10/13/17 13:26 90 27 129/80 97 Room Air 10/13/17 13:21 87 24 126/84 95 Room Air 10/13/17 13:19 89 26 119/74 97 Room Air 10/13/17 13:16 134/62 10/13/17 13:11 119/74 10/13/17 13:10 87 29 119/74 100 Nasal Cannula 2.0 10/13/17 13:07 119/82 10/13/17 13:06 31 119/82 100 Nasal Cannula 3.0 10/13/17 13:03 94 10/13/17 13:02 202/173 10/13/17 12:58 143/103 10/13/17 12:58 94 32 143/103 98 Nasal Cannula 4.0 10/13/17 12:56 /80 10/13/17 12:54 100 43 92 Ambu-Bag 15.0 10/13/17 12:52 120/100 10/13/17 12:51 194 23 99 10/13/17 12:50 194 19 99 10/13/17 12:43 195 31 141/90 100 Nasal Cannula 4.0 10/13/17 12:41 141/90 10/13/17 12:41 200 10/13/17 12:38 97 Nasal Cannula 4.0 10/13/17 12:33 99 Nasal Cannula 4.0 10/13/17 12:33 Nasal Cannula 4.0 10/13/17 12:33 202 29 95 Room Air General Appearance: no apparent distress (at this time), + obese Head: normocephalic, atraumatic Eyes: normal inspection, PERRL, EOMI, sclerae normal ENT: hearing grossly normal, pharynx normal, + pertinent finding (mucous membranes slightly dry) Neck: supple, no JVD, trachea midline Respiratory/Chest: lungs clear, normal breath sounds, no respiratory distress Cardiovascular: regular rate, rhythm, no murmur Abdomen/GI: normal bowel sounds, non tender, soft Extremities/Musculoskelatal: no calf tenderness, normal capillary refill, non- tender, + pertinent finding (pedal pushes and pulls intact, +venous stasis changes bilateral LE. +non-pitting edema LE) Neurologic/Psych: alert, normal mood/affect, oriented x 3 Skin: normal color, warm/dry (noted hair wet, from previous diaphoresis with SVT) Diagnostics H&P v2 Diagnostics Laboratory Results Results Past 24 Hours Test 10/13/17 12:40 10/13/17 12:45 10/13/17 16:13 Range/Units White Blood Count 22.55 4.8-10.8 K/uL Red Blood Count 5.90 4.2-5.4 M/uL Hemoglobin 16.7 12.0-16.0 g/dL Hematocrit 51.0 37-47 % Mean Corpuscular Volume 86.4 80-100 fL Mean Corpuscular Hemoglobin 28.3 25-34 pg Mean Corpuscular Hemoglobin Concent 32.7 32-36 g/dl Platelet Count 337 130-400 K/uL Mean Platelet Volume 9.6 7.4-10.4 fL Neutrophils (%) (Auto) 89.5 % Lymphocytes (%) (Auto) 6.3 % Monocytes (%) (Auto) 3.6 % Eosinophils (%) (Auto) 0.1 % Basophils (%) (Auto) 0.1 % Neutrophils # (Auto) 20.20 1.4-6.5 K/uL Lymphocytes # (Auto) 1.41 1.2-3.4 K/uL Monocytes # (Auto) 0.81 0.11-0.59 K/uL Eosinophils # (Auto) 0.02 0-0.5 K/uL Basophils # (Auto) 0.03 0-0.2 K/uL RDW Standard Deviation 42.3 36.4-46.3 fL RDW Coefficient of Variation 13.4 11.5-14.5 % Immature Granulocyte % (Auto) 0.4 % Immature Granulocyte # (Auto) 0.08 0.00-0.02 K/uL Prothrombin Time 11.5 9.0-12.0 SECONDS Prothromb Time International Ratio 1.1 0.9-1.1 Activated Partial Thromboplast Time 23.0 21.0-31.0 SECONDS Partial Thromboplastin Ratio 0.9 Sodium Level 136 136-145 mmol/L Potassium Level 5.9 3.5-5.1 mmol/L Chloride Level 100 98-107 mmol/L Carbon Dioxide Level 25 21-32 mmol/L Anion Gap 11.0 17.0 16-25 mmol/L Blood Urea Nitrogen 21 7-18 mg/dl Creatinine 1.12 0.60-1.20 mg/dl Estimated GFR () 56.4 Estimated GFR (Non- 48.7 BUN/Creatinine Ratio 19.1 10-20 Random Glucose 320 70-99 mg/dl Calcium Level 9.4 8.5-10.1 mg/dl Magnesium Level 1.8 1.8-2.4 mg/dl Total Bilirubin 0.3 0.2-1 mg/dl Aspartate Amino Transf (AST/SGOT) 52 15-37 U/L Alanine Aminotransferase (ALT/SGPT) 49 12-78 U/L Alkaline Phosphatase 111 45-117 U/L Total Creatine Kinase 67 26-192 U/L Creatine Kinase MB 1.0 0.5-3.6 ng/ml Creatine Kinase MB Ratio 1.5 0-3.0 Troponin I < 0.015 0-0.045 ng/ml Pro-B-Type Natriuretic Peptide 522 0-900 pg/ml Total Protein 7.8 6.4-8.2 gm/dl Albumin 3.2 3.4-5.0 gm/dl Globulin 4.6 2.5-4.0 gm/dl Albumin/Globulin Ratio 0.7 0.9-2 Beta-Hydroxybutyric Acid 0.2-2.81 mg/dL Thyroid Stimulating Hormone (TSH) 3.410 0.300-4.500 uIu/ml Free Thyroxine 1.23 0.80-1.60 ng/dl Chemistry Specimen Hemolysis Bedside Hemoglobin 19.0 12.0-16.0 g/dl Bedside Hematocrit 56 37-47 % Bedside Sodium 138 135-144 mEq/L Bedside Potassium 6.6 3.3-5.0 mEq/L Bedside Chloride 100 101-112 mEq/L Bedside Total CO2 29 24-31 mEq/l Bedside Blood Urea Nitrogen 33 7-18 mg/dl Bedside Creatinine 1.0 0.6-1.3 mg/dl Bedside Glucose (other) 329 70-99 mg/dl Bedside Ionized Calcium (Mary) 1.05 1.12-1.32 mmol/l Microbiology Results 10/13/17 Blood Culture, Received Pending 10/13/17 Blood Culture, Received Pending Diagnostic Radiology CXR: IMPRESSION: Negative chest. EKG Initial EKG: SVT, ST depression inferior, anterior/lateral leads Read by cardiology: Supraventricular tachycardia Left axis deviation Marked ST abnormality, possible inferolateral subendocardial injury Abnormal ECG When compared with ECG of 22-FEB-2012 11:31, Vent. rate has increased BY [address] now depressed in Inferior leads ST now depressed in Lateral leads Confirmed by VIDA MORIN ([id number]) on 10/13/2017 1:22:36 PM Repeat EKG: Sinus rhythm, no further ST depression in V5,V6, poor tracing II, III Read by cardiology: Normal sinus rhythm Low voltage QRS Inferior infarct , age undetermined Cannot rule out Anterior infarct , age undetermined Abnormal ECG When compared with ECG of 13-OCT-2017 12:37, (unconfirmed) Vent. rate has decreased BY 98 BPM Inferior infarct is now Present ST no longer depressed in Inferior leads ST no longer depressed in Anterolateral leads ... Impression H&P v2 Impression Assessment and Plan SVT Pt with syncope this am, found to be in SVT with episodes of vomiting and diarrhea, did not respond to adenosine x 2 by EMS, was cardioverted in ER and in sinus rhythm. Since pt asymptomatic. TSH WNL. Pt given 1L NSS in ER. Magnesium 1.8 -IVF -trend troponin -echo -cardiology consult -cbc, bmp, magnesium in am HYPERKALEMIA K: 5.9 on hemolyzed specimen. repeat K: 5.6. No peaked T waves noted on EKG. -Pt given calcium IV, Insulin 5U IV,Kayexalate -monitor K -hold lisinopril at this time LEUKOCYTOSIS/ELEVATED LACTATE WBC: 22, Lactic acid: 4. Negative CXR. pending U/A and urine culture, pt without urine symptoms. Suspect stress response -IVF -repeat lactic acid -repeat cbc in am N/V/D, ABDOMINAL PAIN Pt had symptoms while in SVT, since converted no further N/V/D or abdominal pain. normal lipase. no abd tenderness on exam -continue to monitor, consider abd/pelvis CT if recurrent symptoms DM II/HYPERGLYCEMIA Glucose: 320, negative beta-hydroxybutyric acid. HA1C was 7.7 on 06/2017 -hold oral meds -Insulin R 5 U IV given -Lantus, NovoLog sliding scale per protocol HTN Stable, monitor at this time -holding lisinopril/hctz secondary to hyperkalemia -will continue propranolol at this time ELEVATED HGB Hgb: 16.7, previous out-pt Hgb WNL. may be concentrated -repeat cbc in am. if continued elevated consider heme/onc consult DVT Prophylaxis -Heparin SQ Disposition admit Tele Full Code as per discussion with pt Follows with Dr West for routine care Pt was seen with Dr Looney. See addendum Addendum: I have seen and examined the patient and agree with the provider above. Patient is stable and asymptomatic status post DC cardioversion earlier today. There is no further nausea vomiting or diarrhea. She denies chest pain or trouble breathing. Of concern is an elevated potassium. Initial sample was hemolyzed and repeated with persistent elevation. Etiologies include but not limited to lisinopril use, beta-iman use, transient acidosis. Will hold lisinopril for now, calcium given 5 units of insulin given with a sugar in the mid 300s which improved to 208, Kayexalate given. Repeat PRP is pending. It is possible that potassium elevation may have caused arrhythmia. Consult cardiology is pending for further workup. Monitor on telemetry overnight. Regarding CBC abnormalities, leukocytosis may be a stress response however in the presence of polycythemia, which the patient needs by diagnostic criteria, malignancy must be considered. Will hydrate overnight and repeat CBC in the morning, however, if abnormalities persist may consider hematology consult. Of note patient is a non-smoker with normal CBC in June of last year and does not have DERRICK or other secondary cause for polycythemia that is obvious at this time. DO Aayush Resuscitation Status Full code VTE Prophylaxis Will order VTE Prophylaxis: Yes Additional Copies To Jason West M.D. Physical Exam (per Admitting): General Appearance: no apparent distress (at this time), + obese Head: normocephalic, atraumatic Eyes: normal inspection, PERRL, EOMI, sclerae normal ENT: hearing grossly normal, pharynx normal, + pertinent finding (mucous membranes slightly dry) Neck: supple, no JVD, trachea midline Respiratory/Chest: lungs clear, normal breath sounds, no respiratory distress Cardiovascular: regular rate, rhythm, no murmur Abdomen/GI: normal bowel sounds, non tender, soft Extremities/Musculoskelatal: no calf tenderness, normal capillary refill, non-tender, + pertinent finding (pedal pushes and pulls intact, +venous stasis changes bilateral LE. +non-pitting edema LE) Neurologic/Psych: alert, normal mood/affect, oriented x 3 Skin: normal color, warm/dry (noted hair wet, from previous diaphoresis with SVT) Hospital Course Atrial Fibrillation with RVR Possible supraventricular tachycardia VS atrial flutter with one-to-one conduction Received Adenosine x2 by EMS that was unsuccessful Was cardioverted in the ER at 200J that converted back to Sinus rhythm Was on Cardizem drip Appreciate cardiology input Recommended to increase metoprolol to 100mg in am and 50mg HS on discharge [id number] score 4 Continue Eliquis Echo showed * The study was technically adequate for the referral indication. * Atrial fibrillation with mildly elevated ventricular rate was present during echocardiogram. * There is mild concentric left ventricular hypertrophy. * The left ventricular wall motion is normal. * Ejection Fraction = 60-65%. * The right ventricle is normal size. * The right ventricular systolic function is normal as assessed by tricuspid annular plane systolic excursion (TAPSE) (normal >1.5 cm). * The left atrium is mildly dilated. * Aortic valve sclerosis mild, without significant aortic valvular stenosis. Rate is controlled Will check Electrolytes today Increase ambulation Likely to discharge this afternoon DIZZINESS Possible related to vasovagal vs orthostatic No burst or arrhythmia on tele EKG showed no ischemic changes No more episodes SOB/Chest pressure Possible related to anxiety when she developed dizziness EKG no ischemic changes Will get a chest xray -unremarkable No more episode HYPERKALEMIA K: 5.9 on admission Seems to be hemolyzed specimen. K stable Continue monitor BMP resolved HYPOMAGNESEMIA Mg 1.5 Replaced Check today ELEVATED TROPONIN secondary to cardiovert with 200J Initial troponin negative on admission trop mildly elevated Doubt any ACS ELEVATED WBC Lactate elevated Possible reactive due to stress No signs of infection WBC trending wnl resolved N/V/D, ABDOMINAL PAIN Resolved DM II/HYPERGLYCEMIA Recent Hba1c 9.3 oral meds on hold Insulin R 5 U IV given Lantus, NovoLog sliding scale per protocol HTN Stable DVT Prophylaxis D/C Heparin SQ since pt starting on eliquis Disposition Continue monitor in Tele Follow up with PCP Dr. West on 10/20 @ 2:45 PM Follow up with Cardiology Dr. sorensen on 10/25 @ 10:45 AM Consultants: Cardio Total time spent on discharge = 35 minutes This includes examination of the patient, discharge planning, medication reconciliation, and communication with other providers. Discharge Instructions Date of Service Oct 19, 2017. Admission Reason for Admission: Leukocytosis, Svt Discharge Discharge Diagnosis / Problem: A Fib with RVR Discharge Goals Goal(s): Prevent Disease Progression Activity Recommendations Activity Limitations: resume your previous activity . Instructions / Follow-Up Instructions / Follow-Up Follow up with PCP Dr. West on 10/20 @ 2:45 PM Follow up with Cardiology Dr. sorensen on 10/25 @ 10:45 AM Current Hospital Diet Patient's current hospital diet: AHA Diet (Heart Healthy), Diabetes Type 2 Diet Discharge Diet Recommended Diet: AHA Diet (Heart Healthy), Diabetes Type 2 Diet Pending Studies Studies pending at discharge: no Laboratory Results Hemoglobin A1c Test 10/14/17 03:39 Range/Units Estimated Average Glucose 220 mg/dl Hemoglobin A1c 9.3 H 4.5-5.6 % Lipid Panel Test 10/14/17 03:39 Range/Units Triglycerides Level 228 H 0-150 mg/dl Cholesterol Level 103 0-200 mg/dl HDL Cholesterol 32 mg/dl Cholesterol/HDL Ratio 3.2 LDL Cholesterol, Calculated 25 mg/dl Medical Emergencies . Who to Call and When: Medical Emergencies: If at any time you feel your situation is an emergency, please call 911 immediately. . Non-Emergent Contact Non-Emergency issues call your: Primary Care Provider . Past History Medical & Surgical History: (1) Atrial fibrillation with RVR (2) Diabetic peripheral neuropathy associated with type 2 diabetes mellitus (3) SVT (supraventricular tachycardia) (4) HTN (hypertension) (5) DM type 2 (diabetes mellitus, type 2) (6) Polymyalgia rheumatica . "Provider Documentation" section prepared by Franco Pinedo. . <Electronically signed by Franco Pinedo M.D.> Additional Copies To Jason West M.D.
[2017-10-20] MEDS ORDERED: METOPROLOL SUCC 50MG EXT REL TAB PO SCH (09:00)
== END 2017-10-19 18:10 | disposition home or self-care (01) | DRG 309 ==
LOC: EDBD 12:21 → C.EDA 12:22 → C.MED 15:53 → ENRESERV 16:09 → C.2T 10-15 13:35
PROVIDERS: ADMIT Hospitalist; ATTEND Internal Medicine
PROC: 5A2204Z Restoration of Cardiac Rhythm, Single (ICD-10-PCS; principal; 2017-10-13)
DX: I47.1 Supraventricular tachycardia (principal); Z68.42 Body mass index [BMI] 45.0-49.9, adult; I48.91 Unspecified atrial fibrillation; E11.40 Type 2 diabetes mellitus with diabetic neuropathy, unspecified; E11.65 Type 2 diabetes mellitus with hyperglycemia; K21.9 Gastro-esophageal reflux disease without esophagitis; I10 Essential (primary) hypertension; M35.3 Polymyalgia rheumatica; E87.5 Hyperkalemia; R19.7 Diarrhea, unspecified; R11.2 Nausea with vomiting, unspecified; E66.9 Obesity, unspecified; Z79.82 Long term (current) use of aspirin; Z79.84 Long term (current) use of oral hypoglycemic drugs; Z79.899 Other long term (current) drug therapy; Z87.891 Personal history of nicotine dependence; Z88.8 Allergy status to other drugs, medicaments and biological substances; E83.42 Hypomagnesemia; R42 Dizziness and giddiness; F41.9 Anxiety disorder, unspecified

== ENCOUNTER 2017-11-10 13:36 | Inpatient (IN) | payer BC, OTHER ==
[2017-11-10] VITALS (13 sets, daily range): BP systolic 105–150; BP diastolic 57–89; PULSE 80–98; TEMP 36.3–37.3; O2SAT 92–100; Ht 162.6 cm; Wt 122.8 kg
[~2017-11-10] VITALS: Ht 162.6 cm; Wt 122.8 kg
[~2017-11-10 13:36] MED LIST changes: +APIX1TAB3 PO; -ASPEC81 PO; +ASPI81TA28 PO; -B-CO1CAP3 PO; +CALCTAB7 PO; +CINN1CAP2 PO; -CLTP PO; +COEN150C4 PO; -COEN75CA PO; -CYAN100T6 PO; +DTR/5 PO; +DULA0.5I INJ; -FISHOIL PO; +GLC/500 PO; -GLC5 PO; -GLC500 PO; +GLIP10TA3 PO; -LISI-725 PO; +MAGN400T6 PO; +POLYSOL4 OPB; -PROP1TAB PO; +TPRSR50 PO; +VENL-273 PO; -[UNRECOGNIZED DRUG - OTHER]
[2017-11-10] MEDS ORDERED: NITROGLYCERIN 0.4 MG SL PER TAB CHARGE ONE (13:56)
[2017-11-10 13:57] LABS: BASO % 0.2 %; BASO ABS # 0.03 K/uL (0-0.2); EOS % 1.3 %; EOS ABS # 0.17 K/uL (0-0.5); HEMATOCRIT 38.2 % (37-47); HEMOGLOBIN 12.2 g/dL (12.0-16.0); IG# 0.03 K/uL (0.00-0.02); LYMPH % 5.6 %; LYMPH ABS # 0.72 K/uL (1.2-3.4); MEAN CELL VOLUME 86.4 fL (80-100); MEAN CORPUSCULAR HEMOGLOBIN 27.6 pg (25-34); MEAN CORPUSCULAR HGB CONC 31.9 g/dl (32-36); MONO % 4.3 %; MONO ABS # 0.55 K/uL (0.11-0.59); NEUT % 88.4 %; NEUT ABS # 11.39 K/uL (1.4-6.5); PLATELET COUNT 274 K/uL (130-400); RED CELL DISTRIBUTION WIDTH CV 13.4 % (11.5-14.5); RED CELL DISTRIBUTION WIDTH SD 42.4 fL (36.4-46.3); WHITE BLOOD COUNT 12.89 K/uL (4.8-10.8)
[2017-11-10] MEDS ORDERED: NITROGLYCERIN 0.4 MG SL PER TAB CHARGE SL STA (14:02)
[2017-11-10] MEDS ORDERED: SODIUM CHLORIDE 0.9% 1000ML 1,000 ML IV STA (14:02)
[2017-11-10] MEDS ORDERED: MIDAZOLAM HCL 1 MG/ML 2ML VIAL ONE ×2 (14:07→15:47)
[2017-11-10] MEDS ORDERED: FENTANYL CITRATE INJ 50 MCG/1 ML 2 ML VIAL ONE (14:07)
[2017-11-10] MEDS ORDERED: HEPARIN SOD (PORCINE) 1000 UNIT/ML 10 ML VIAL ONE ×2 (14:08→15:21)
[2017-11-10] MEDS ORDERED: NiCARDipine HCL INJ 2.5 MG/ML 10 ML AMP ONE (14:08)
[2017-11-10] MEDS ORDERED: NITROGLYCERIN/D5W 100MCG/ML 20ML SYR ONE (14:08)
[2017-11-10 14:10] LABS: CALCIUM 8.8 mg/dl (8.5-10.1); CREATININE 0.8 mg/dl (0.60-1.20); POTASSIUM 4.4 mmol/L (3.5-5.1)
[2017-11-10 14:13] LABS: TOTAL PROTEIN 7.5 gm/dl (6.4-8.2)
--- NOTE | 2017-11-10 14:21 | Pre Sedation Assessment ---
Pre Sedation Assessment General Date of Sedation: Nov 10, 2017. Vital Signs Past 12 Hours Date Time Temp Pulse Resp B/P (MAP) Pulse Ox O2 Delivery O2 Flow Rate FiO2 11/10/17 13:58 97 28 136/90 100 Nasal Cannula 2.0 11/10/17 13:52 94 Nasal Cannula 2.0 11/10/17 13:52 37.3 102 24 140/79 91 Room Air 11/10/17 13:51 94 Nasal Cannula 3.0 11/10/17 13:51 104 11/10/17 13:51 94 Nasal Cannula 3.0 Review Cardiovascular: regular rate, rhythm, no edema Lungs: chest non-tender, normal breath sounds Pre-Sedation Airway Assessment Smoking Status: Former Smoker Hx of Sleep Apnea: No Hx of difficult intubation: No Short Thick Neck: No Thyro-mental Distance: > 3 Finger Breadths Oral Cavity: WNL Mallampati Classification: Class III ASA Classification: Class III Procedure Planning Contraindications for Sedation: None Current Medications Reviewed: Yes Notes The planned sedation has been discussed with the patient. Informed Consent was obtained. I have identified the patient, determined the appropriateness of sedation and have assessed the patient immediately prior to the procedure. All medicine(s) and interventions are by my order.
--- NOTE | 2017-11-10 14:21 | DIAGNOSTIC IMAGING REPORT ---
SINGLE VIEW CHEST CLINICAL HISTORY: Atypical chest pain. FINDINGS: An AP, portable, upright chest radiograph is compared to study dated 10/16/2017. The examination is degraded by portable technique and patient rotation. The heart is top normal for projection. There is moderate atherosclerotic calcification of the thoracic aorta. There is chronic elevation right hemidiaphragm and bibasilar atelectasis. Chronic interstitial thickening is similar to previous. No airspace consolidation or MR pleural effusion is identified. No pneumothorax is seen. The skeletal structures are osteopenic. The bony thorax is grossly intact. Advanced arthritic change is seen in the shoulders. Surgical anchors are noted in the right humeral head. IMPRESSION: No acute cardiopulmonary abnormality. Electronically signed by: Kofi Lopez M.D. 11/10/2017 2:19 PM Dictated Date/Time: 11/10/2017 2:18 PM
[2017-11-10 14:26] LABS: ISTAT CREATININE 0.6 mg/dl (0.6-1.3); ISTAT IONIZED CALCIUM 1.17 mmol/l (1.12-1.32); ISTAT POTASSIUM 4.3 mEq/L (3.3-5.0)
[2017-11-10] MEDS ORDERED: LIDOCAINE HCL 1% 20 ML VIAL ONE (14:29)
[2017-11-10] MEDS ORDERED: CLOPIDOGREL BISULFATE 300 MG TAB PO ONE (15:58)
[2017-11-10] MEDS ORDERED: IV FLUIDS COMPLETED PRN (16:00)
--- NOTE | 2017-11-10 16:12 | [facility] Post Operative Brief Note ---
Preliminary Procedure Note Procedure Date Nov 10, 2017. Pre-Procedure Diagnosis Non STEMI AUC Score 8 Post-Procedure Diagnosis Severe CAD, Successful PCI, Normal Intracardiac Pressures Procedure(s) Performed Coronary Angiography, Left Heart Cath, Drug Eluting Stent, IVUS Metals Analyst Emanuel Regulatory Lead(s) Glunt Estimated Blood Loss 15 Medication(s) Clopidogrel, Fentanyl, Heparin, Nicardipine, Nitroglycerin, Versed, Lidocaine 1% Preliminary Findings Severe single vessel disease. -80-90% calcified mid LAD stenosis. Successful PCI of mid LAD with one drug-eluting stent. Recommendations PCI without planned CABG Specimens None Anesthesia Moderate Procedural Complication(s) None Disposition PCU
--- NOTE | 2017-11-10 16:14 | Post Sedation Assessment ---
Post Sedation Assessment General Date of Sedation Nov 10, 2017. Vital Signs: Vital Signs Past 12 Hours Date Time Temp Pulse Resp B/P (MAP) Pulse Ox O2 Delivery O2 Flow Rate FiO2 11/10/17 13:58 97 28 136/90 100 Nasal Cannula 2.0 11/10/17 13:52 94 Nasal Cannula 2.0 11/10/17 13:52 37.3 102 24 140/79 91 Room Air 11/10/17 13:51 94 Nasal Cannula 3.0 11/10/17 13:51 104 11/10/17 13:51 94 Nasal Cannula 3.0 Post Procedure Recovery Score Activity: (2) Moves 4 extremities * Respiration: (2) Deep breath/cough Circulation: (2) +/-20% PreAnes Value Consciousness: (2) Fully Awake Oxygen Saturation: (2) > 92% On Room Air Discharge Sedation Level of Care: Fast Track Phase II Post Sedation Plan On clinical assessment, the patient appears to have tolerated the sedation without complications. Patient is recovering as anticipated. Patient will continue to be monitored by nursing and may be discharged when sedation discharge criteria are met per below protocol. Upon Completions of procedure and additional 15 minutes continue every 5 minute vital signs and the P.A.R. score; then discharge to a Phase I or Fast Track to Phase II per the following guidelines: * Discharge Patient to appropriate Phase II area if PAR is 8 or greater or return to pre- procedure baseline. The post - procedure orders will be as directed. * If PAR score is less than 8 or not return to pre-procedure baseline then patient will follow Phase I monitoring till PAR is reached for Phase II. The Phase I may be done in procedure room or may call to secure a Phase I area. * If naloxone or flumazenil are used for reversal, hold in Phase I for an additional 60 -120 minutes before discharge to Phase II. Please call the Sedation Physician to re-evaluate and complete post-note for discharge to Phase II area. Do NOT discharge from procedure sedation or Phase 1 until post- sedation evaluation note is complete by procedure /sedation MD Sedation Discharge Instructions to be given to the patient at discharge to home.
[2017-11-10] MEDS ORDERED: ONDANSETRON INJ 2 MG/ML 2 ML VIAL IV PRN ×2 (16:15→17:00)
[2017-11-10] MEDS ORDERED: ACETAMINOPHEN 325 MG TAB PO PRN ×2 (16:15→17:00)
--- NOTE | 2017-11-10 16:35 | Cardiac Catheterization ---
Procedure Note Procedure Date Nov 10, 2017. 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 2nd diagonal moderate caliber vessel with luminal irregularities Circumflex - Moderate caliber vessel, 30% mid segment; focal 50-60% distal stenosis after take-off of large OM2. OM2 with 40% proximal stenosis. RCA - Dominant, 20% proximal stenosis, distal luminal irregularities. LVEDP - 17 -- PCI -- Antithrombotic therapy: Heparin, Clopidogrel Procedure: LM cannulated with EBU 3.5 guide BMW wire passed across lesion into distal LAD Prowater wire placed into distal 2nd diagonal IVUS used to assess length of lesion, extent of calcification and severity of stenosis -- IVUS revealed moderate to severe calcified disease from 1st diagonal past 2nd diagonal -- IVUS unable to be passed further initially. Mid LAD lesion predilated with 2.5 and 3.0 compliant balloons Dilated lesion stented with 3.0 x 34 Mason ISABEL 2nd diagonal re-wired with whisper wire and prowater wire removed Stent post-dilated with 3.75 noncompliant balloon to high atmospheres IC vasodilators administered for spasm IVUS showed well expanded, well-apposed stent without proximal or distal vessel complications. Post procedure TELMA 3 flow, stent well expanded with minimal residual stenosis and no apparent cardiac complications. Arterial Closure: TR Band Summary: 1. Severe single vessel coronary artery disease - 80-90% calcified diffuse mid LAD stenosis 2. Borderline elevated intracardiac filling pressures 3. Successful PCI of mid LAD with single drug-eluting stent (3.0 x 34 Mason; post -dilated with 3.75 NC). 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 Recommend triple therapy with ASA/Clopidogrel/Apixaban for 1 month, then can drop ASA and continue dual therapy for 1 year Trend troponins until peak, Check Echo Continue beta-iman, start CHRISTINA as BP allows High-dose statin Consult cardiac Rehab Hemodynamics Rest Ao: 110/69/86 Final Ao: 133/79/103 LV: 117/17 Recommendations PCI without planned CABG Specimens None Radiation Exposure (mGy) 4976 Contrast (mls) 135 Fluids (cc crystalloids) 75 Drains None Anesthesia Moderate Procedural Complication(s) None Disposition PCU ACC Data Cardiac Status Clinical evaluation leading to the procedure CAD Presntation: Non STEMI Anginal Classification: CCS IV Heart Failure: No, NYHA Class: CCS I Cardiogenic Shock w/in 24Hrs: No Cardiac Arrest w/in 24Hrs: No Imaging studies past 6 months: Yes Stress studies past 6 months: No Closure Device Percutaneous Entry Location: Radial Closure Device: Radial Band Recommendations: PCI without planned CABG PCI Indication: PCI for high risk Non-STEMI Lesion Segment Name: Mid LAD Culprit Artery: Yes Stenosis Prior to Rx (%): 80-90 Chronic Total Occlusion: No IVUS: Yes FFR: No Pre-Procedure TELMA Flow: 3 Previously Treated Lesion: No Lesion Complexity: High/C Lesion Length (mm): 30 Thrombus Present: Yes Bifurcation Lesion: Yes Guidewire Across Lesion: Yes Guidewire: Stenosis Post-Procedure (%): 0 Post-Procedure TELMA Flow: 3 Device(s) Deployed: Yes Intraprocedure Events Significant Dissection: No Perforation: No
[2017-11-10] MEDS ORDERED: SODIUM CHLORIDE 0.9% 1000ML 1,000 ML IV SCH (16:45)
[2017-11-10] MEDS ORDERED: NITROGLYCERIN 0.4 MG SL PER TAB CHARGE SL PRN (17:00)
[2017-11-10] MEDS ORDERED: GLUCAGON FOR INJ 1 MG VIAL SQ PRN (17:15)
[2017-11-10] MEDS ORDERED: GLUCOSE 40% GEL 15 GM TUBE PO PRN (17:15)
[2017-11-10] MEDS ORDERED: GLUCOSE 10 TABS/TUBE PO PRN (17:15)
[2017-11-10] MEDS ORDERED: DEXTROSE 50% 50 ML SYR IV PRN (17:15)
--- NOTE | 2017-11-10 17:33 | EMERGENCY ROOM VISIT NOTE ---
History Report prepared by Laila: Napoleon Lobato Under the Supervision of: Dr. Francisco Pugh M.D. First contact with patient: 13:34 Chief Complaint: SHORTNESS OF BREATH Stated Complaint: CHEST PAIN/SHORTNESS OF BREATH History of Present Illness The patient is a 72 year old female who presents to the Emergency Room via EMS with complaints of chest pain and dyspnea that began at 1230, 1 hour and 15 minutes ago. The patient states that her symptoms began when she "started to feel very cold" and began shaking. The patient then developed bilateral chest pain and dyspnea. Her pain was initially an 8/10 in severity, which was improved to a 4/10 in severity by 2 tablets of nitroglycerin. She does still currently feel short of breath and has a headache from the nitroglycerin. She denies losing consciousness at any time. She also denies any nausea, vomiting, or diarrhea. She has no history of asthma or COPD. Source of History: patient Onset: 1 hour and 15 minutes ago Position: chest Symptom Intensity: 8/10 at onset, 4/10 currently Modifying Factors (Relieving): other (Nitroglycerin) Associated Symptoms: + SOB (dyspnea), No nausea, No vomiting, No diarrhea Review of Systems See HPI for pertinent positives and negatives. A total of ten systems were reviewed and were otherwise negative. Past Medical & Surgical Medical Problems: (1) Atrial fibrillation (2) DM type 2 (diabetes mellitus, type 2) (3) Dyslipidemia (4) Hypertension (5) Osteoarthritis Surgical Problems: (1) H/O ovarian cystectomy (2) History of appendectomy (3) History of cholecystectomy (4) History of right knee joint replacement (5) History of tonsillectomy Family History FH: CAD (coronary artery disease) FH: cancer Hypertension Social History Smoking Status: Former Smoker Alcohol Use: none Drug Use: none Marital Status: Occupation Status: retired Current/Historical Medications Scheduled Apixaban (Eliquis), 5 MG PO BID Aspirin (Aspirin Ec), 81 MG PO DAILY Atorvastatin (Lipitor), 10 MG PO DAILY Calcium Carbonate-Vitamin D W/ (Caltrate 600 Plus), 2 TAB PO DAILY Coenzyme Q10 (Ubidecarenone) (Coq10), 1 TAB PO DAILY Dulaglutide (Trulicity), 1.5 MG INJ WK Glipizide (Glucotrol), 10 MG PO BID Magnesium Oxide (Mag-Ox), 400 MG PO BID Metformin Hcl (Glucophage), 500 MG PO TID Metoprolol Succinate (Metoprolol Succinate ER), 100 MG PO QAM Multivitamin (Multivitamin), 1 TAB PO DAILY Oxybutynin Chloride (Ditropan), 5 MG PO BID Polyethylene Glycol-Propylene (Systane), 1 DROPS OPB Q2H Venlafaxine Hcl (Venlafaxine Hcl Er), 1 TAB PO DAILY Miscellaneous Medications Cinnamon (Cinnamon), 500 MG PO Allergies Coded Allergies: Cetirizine & Related (Verified Allergy, Intermediate, ANAPHYLAXIS, 10/13/17 ) Hallucinations Hydroxyzine (Verified Allergy, Unknown, 10/13/17) Physical Exam Vital Signs Date Time Temp Pulse Resp B/P (MAP) Pulse Ox O2 Delivery O2 Flow Rate FiO2 11/10/17 13:58 97 28 136/90 100 Nasal Cannula 2.0 11/10/17 13:52 94 Nasal Cannula 2.0 11/10/17 13:52 37.3 102 24 140/79 91 Room Air 11/10/17 13:51 94 Nasal Cannula 3.0 11/10/17 13:51 104 11/10/17 13:51 94 Nasal Cannula 3.0 Physical Exam Physical Exam GENERAL: She is oriented to person, place, and time. She appears well- developed and well-nourished. She does not appear distressed. ____ HENT: Exam performed. Head: Normocephalic and atraumatic. Right Ear: External ear normal. No mastoid tenderness. Left Ear: External ear normal. No mastoid tenderness. Mouth/Throat: The oropharynx is clear and moist. No trismus in the jaw. No dental abscesses or uvula swelling. No oropharyngeal exudate or tonsillar abscesses. ____ EYES: Conjunctivae and EOM are normal. Pupils are equal, round, and reactive to light. Right eye exhibits no discharge. Left eye exhibits no discharge. No scleral icterus. ____ NECK: Normal range of motion. Neck supple. No JVD present. No spinous process tenderness present. No carotid bruit present. No rigidity. No tracheal deviation and normal range of motion present. No Brudzinski's sign and no Kernig 's sign noted. ____ CV: Tachycardic rate, regular rhythm, normal heart sounds and intact distal pulses. There is no peripheral edema. Palpable radial pulses bue. ____ PULM/CHEST: Shallow breathing, rhonchi bilaterally. No respiratory distress. No stridor. She has no wheezes. She has no rales. Chest Wall: She exhibits no tenderness. ____ ABD: Obese. No tenderness to palpation across the abdomen. The abdomen is soft. Bowel sounds are normal. She has no distension. No mass is present. There is no tenderness. There is no rebound, no guarding, no Dacosta's sign and no tenderness at McBurney's point. Rovsig negative MUSC/SKEL: Normal range of motion. 1+ pitting edema edema, tenderness or deformity. Palpable radial pulses in the UE, palpable DP pulses in bilateral LE. LYMPH: No cervical adenopathy. ____ NEURO: She is alert and oriented to person, place, and time. She has normal strength. No cranial nerve deficit or sensory deficit. Coordination and gait normal. GCS eye subscore is 4. GCS verbal subscore is 5. GCS motor subscore is 6. Cerebellar tests wnl. ____ SKIN: Skin is warm and dry. She is not diaphoretic. ____ PSYCH: She has a normal mood and affect. Her behavior is normal. Judgment and thought content normal. ____ Medical Decision & Procedures ER Provider Diagnostic Interpretation: Radiology results as stated below per my review and radiologist interpretation: SINGLE VIEW CHEST CLINICAL HISTORY: Atypical chest pain. FINDINGS: An AP, portable, upright chest radiograph is compared to study dated 10/16/2017. The examination is degraded by portable technique and patient rotation. The heart is top normal for projection. There is moderate atherosclerotic calcification of the thoracic aorta. There is chronic elevation right hemidiaphragm and bibasilar atelectasis. Chronic interstitial thickening is similar to previous. No airspace consolidation or MR pleural effusion is identified. No pneumothorax is seen. The skeletal structures are osteopenic. The bony thorax is grossly intact. Advanced arthritic change is seen in the shoulders. Surgical anchors are noted in the right humeral head. IMPRESSION: No acute cardiopulmonary abnormality. Electronically signed by: Kofi Lopez M.D. 11/10/2017 2:19 PM Dictated Date/Time: 11/10/2017 2:18 PM Laboratory Results 11/10/17 13:45 Red Blood Count 4.42, Mean Corpuscular Volume 86.4, Mean Corpuscular Hemoglobin 27.6, Mean Corpuscular Hemoglobin Concent 31.9, Mean Platelet Volume 9.0, Neutrophils (%) (Auto) 88.4, Lymphocytes (%) (Auto) 5.6, Monocytes (%) (Auto) 4.3, Eosinophils (%) (Auto) 1.3, Basophils (%) (Auto) 0.2, Neutrophils # (Auto) 11.39, Lymphocytes # (Auto) 0.72, Monocytes # (Auto) 0.55, Eosinophils # (Auto) 0.17, Basophils # (Auto) 0.03 11/10/17 13:45 Test 11/10/17 13:45 11/10/17 13:51 11/10/17 13:52 11/10/17 14:11 White Blood Count 12.89 K/uL (4.8-10.8) Red Blood Count 4.42 M/uL (4.2-5.4) Hemoglobin 12.2 g/dL (12.0-16.0) Hematocrit 38.2 % (37-47) Mean Corpuscular Volume 86.4 fL (80-100) Mean Corpuscular Hemoglobin 27.6 pg (25-34) Mean Corpuscular Hemoglobin Concent 31.9 g/dl (32-36) Platelet Count 274 K/uL (130-400) Mean Platelet Volume 9.0 fL (7.4-10.4) Neutrophils (%) (Auto) 88.4 % Lymphocytes (%) (Auto) 5.6 % Monocytes (%) (Auto) 4.3 % Eosinophils (%) (Auto) 1.3 % Basophils (%) (Auto) 0.2 % Neutrophils # (Auto) 11.39 K/uL (1.4-6.5) Lymphocytes # (Auto) 0.72 K/uL (1.2-3.4) Monocytes # (Auto) 0.55 K/uL (0.11-0.59) Eosinophils # (Auto) 0.17 K/uL (0-0.5) Basophils # (Auto) 0.03 K/uL (0-0.2) RDW Standard Deviation 42.4 fL (36.4-46.3) RDW Coefficient of Variation 13.4 % (11.5-14.5) Immature Granulocyte % (Auto) 0.2 % Immature Granulocyte # (Auto) 0.03 K/uL (0.00-0.02) Est Creatinine Clear Calc Drug Dose 86.3 ml/min Estimated GFR () 84.8 Estimated GFR (Non- 73.1 BUN/Creatinine Ratio 17.9 (10-20) Calcium Level 8.8 mg/dl (8.5-10.1) Total Bilirubin 0.4 mg/dl (0.2-1) Direct Bilirubin 0.1 mg/dl (0-0.2) Aspartate Amino Transf (AST/SGOT) 21 U/L (15-37) Alanine Aminotransferase (ALT/SGPT) 26 U/L (12-78) Alkaline Phosphatase 97 U/L (45-117) Total Protein 7.5 gm/dl (6.4-8.2) Albumin 3.0 gm/dl (3.4-5.0) Lipase 148 U/L (73-393) Bedside Troponin I 0.160 ng/ml (0-0.045) Bedside Lactic Acid Venous 2.42 mmol/L (0.90-1.70) Bedside Hemoglobin 13.3 g/dl (12.0-16.0) Bedside Hematocrit 39 % (37-47) Bedside Sodium 138 mEq/L (135-144) Bedside Potassium 4.3 mEq/L (3.3-5.0) Bedside Chloride 98 mEq/L (101-112) Bedside Total CO2 27 mEq/l (24-31) Anion Gap 18.0 mmol/L (16-25) Bedside Blood Urea Nitrogen 15 mg/dl (7-18) Bedside Creatinine 0.6 mg/dl (0.6-1.3) Bedside Glucose (other) 210 mg/dl (70-99) Bedside Ionized Calcium (Mary) 1.17 mmol/l (1.12-1.32) Test 11/10/17 15:34 Kaolin Activated Coagulation Time 257 SECONDS (94-140) Laboratory results reviewed by me Medications Administered Medications (Trade) Dose Ordered Sig/Tasha Route Start Time Stop Time Status Last Admin Dose Admin Nitroglycerin (Nitrostat Tab) 0.4 mg K-MED ONCE .ROUTE 11/10/17 13:56 11/10/17 13:57 DC 11/10/17 13:58 0.4 MG Midazolam HCl (Versed Inj) 2 mg STK-MED ONCE .ROUTE 11/10/17 14:07 11/10/17 14:08 DC 11/10/17 14:07 2 MG Fentanyl Citrate (Fentanyl Inj) 100 mcg STK-MED ONCE .ROUTE 11/10/17 14:07 11/10/17 14:08 DC 11/10/17 14:07 75 MCG Heparin Sodium (Porcine) (Heparin Iv Bolus) 10,000 unit STK-MED ONCE .ROUTE 11/10/17 14:08 11/10/17 14:09 DC 11/10/17 14:08 10,000 UNIT Heparin Sodium (Porcine) (Heparin Iv Bolus) 10,000 unit STK-MED ONCE .ROUTE 11/10/17 15:21 11/10/17 15:22 DC 11/10/17 15:21 2,000 UNIT ECG Per My Interpretation Rate (beats per minute): 107 Rhythm: sinus tachycardia Findings: ST elevation (Mild ST elevation/biphasic T waves in lead V1 V2. Concerning for Wellens/proximal LAD occlusion. ), other (QRS, QTC, MS within normal limits, ) ED Course 1337: The patient was evaluated in room A2. A complete history and physical exam was performed. Called by EMS from the field taken by me. Patient's initial EKG in the field done at 1310 showed sinus tachycardia with a rate of 110 MS QRS and QTc intervals are within normal limits. There was ST elevation in lead V2 as well as slight ST depression in leads V5 and V6. After seeing the initial EKG I instructed the EMS crew to provide aspirin 324 mg as well as sublingual nitro and morphine per ACS protocols. Repeat EKG sent from the field at 1331 showed sinus tachycardia with rate of 104. MS QRS and QTc intervals within normal limits. Continued ST elevation in lead V2. On arrival here in the emergency department, EKG showed sinus tachycardia with a rate of 107. MS QRS and QTc intervals within normal limits. Mild ST elevation/ biphasic T waves in lead V1 V2. Concerning for Wellens/proximal LAD occlusion. Will page Dr. Castellanos interventional cardiology. 1356: Ordered Nitroglycerin 0.4 mg. 1358: Patient reports pain has improved after nitroglycerin. 1401: I discussed the case with Dr. Emanuel Harrington Cardiology. He states to not call the heart alert yet, he will be down to evaluate the patient. 1419: Dr. Castellanos is taking the patient to the record label intern at this time. Medical Decision 1337: The patient was evaluated in room A2. A complete history and physical exam was performed. Called by EMS from the field taken by me. Patient's initial EKG in the field done at 1310 showed sinus tachycardia with a rate of 110 MS QRS and QTc intervals are within normal limits. There was ST elevation in lead V2 as well as slight ST depression in leads V5 and V6. After seeing the initial EKG I instructed the EMS crew to provide aspirin 324 mg as well as sublingual nitro and morphine per ACS protocols. Repeat EKG sent from the field at 1331 showed sinus tachycardia with rate of 104. MS QRS and QTc intervals within normal limits. Continued ST elevation in lead V2. On arrival here in the emergency department, EKG showed sinus tachycardia with a rate of 107. MS QRS and QTc intervals within normal limits. Mild ST elevation/ biphasic T waves in lead V1 V2. Concerning for Wellens/proximal LAD occlusion. Will page Dr. Castellanos interventional cardiology. 1356: Ordered Nitroglycerin 0.4 mg. 1358: Patient reports pain has improved after nitroglycerin. 1401: I discussed the case with Dr. Emanuel Adamson. He states to not call the heart alert yet, he will be down to evaluate the patient. 1419: Dr. Castellanos is taking the patient to the record label intern at this time. Medication Reconcilliation Current Medication List: was personally reviewed by me Blood Pressure Screening Patient's blood pressure: Elevated blood pressure Referred to cardiology. Consults Time Called: 1348 Consulting Physician: Dr. Emanuel Harrington Cardiology Returned Call: 1351 I discussed the case with Dr. Emanuel Harrington Cardiology. He states to not call the heart alert yet, he will be down to evaluate the patient. Impression Primary Impression: STEMI (ST elevation myocardial infarction) Critical Care I have personally spent greater than 40 minutes of critical care time in the direct management of this patient. This includes bedside care, interpretation of diagnostic studies, and testing, discussion with consultants, patient, and family members, and other required patient management activities. This 40 minutes is in excess of all separately billable procedures. Scribe Attestation The scribe's documentation has been prepared under my direction and personally reviewed by me in its entirety. I confirm that the note above accurately reflects all work, treatment, procedures, and medical decision making performed by me. The chart was completed utilizing [employer] Speech voice recognition software. Grammatical errors, random word insertions, pronoun errors, and incomplete sentences are an occasional consequence of this system due to software limitations, ambient noise, and hardware issues. Any formal questions or concerns about the content, text, or information contained within the body of this dictation should be directly addressed to the physician for clarification. Departure Information Dispostion Being Evaluated By Hospitalist Jason Connolly M.D. (PCP) Patient Instructions My [facility] Problem Qualifiers Primary Impression: STEMI (ST elevation myocardial infarction) Involved coronary artery: unspecified coronary artery Qualified Codes: I21.3 - ST elevation (STEMI) myocardial infarction of unspecified site
--- NOTE | 2017-11-10 18:22 | CARDIOLOGY CONSULTATION ---
DATE OF CONSULTATION: 11/10/2017 CONSULTATION REQUESTED BY: Dr. Pugh. REASON FOR CONSULTATION: Chest pain, ST changes. HISTORY OF PRESENT ILLNESS: Ms. Baig is a 72-year-old woman followed by the [facility] cardiology service who was admitted today in the setting of acute onset chest pain, found to have new ST changes and elevated troponin. Ms. Baig's recent cardiac care has been remarkable for an episode of syncope back in September of 2017 where she was found to be in SVT/AFib with RVR. Patient was treated with cardioversion in the ED with return to sinus rhythm. Has since been evaluated by electrophysiology and has plans for SVT ablation next month. Today, patient was at rest, sitting down when all of a sudden developed bilateral chest pain with associated shortness of breath and feeling of chills. Pain lasted for more than half an hour and presented to the ED. Upon arrival, patient received sublingual nitroglycerin and chest pain improved with mild residual 2-3/10 right-sided pain. EKG showed subtle ST elevations in 1, 2, and V1 and V2 as well as new T-wave inversions across V1 through V3. As patient was having active ongoing chest pain and new EKG changes as well as a mildly elevated troponin to 0.14 on presentation, decision was made to proceed with urgent cardiac catheterization and potential PCI. PAST MEDICAL HISTORY: Includes: 1. SVT. 2. AFib with RVR, on anticoagulation. 3. Type 2 diabetes complicated by peripheral neuropathy and prior foot ulcer. 4. Hypertension. 5. GERD. 6. Polymyalgia rheumatica. PAST SURGICAL HISTORY: Includes history of appendectomy, carpal tunnel syndrome, cholecystitis, rotator cuff surgery, total hip arthroplasty and total knee arthroplasty. SOCIAL HISTORY: Patient is a long-term nonsmoker. She is retired from [employer]. FAMILY HISTORY: She reports significant family history of coronary artery disease with her mother who had bypass surgery in her 50s. Her brother had a stroke in age 30s and her sister had an OK in her 40s-50s. REVIEW OF SYSTEMS: Ten-point review of systems completed and otherwise negative unless stated in HPI. PHYSICAL EXAMINATION: VITAL SIGNS: Temperature 37.3, pulse 104, blood pressure was 140/79. She was satting 94% on 3 liters. GENERAL: The patient appeared mildly uncomfortable, in no acute distress. HEENT: Sclerae are anicteric. Oropharynx is clear. Mucous members are moist. NECK: Supple with no lymphadenopathy. LUNGS: Clear to auscultation bilaterally, although breath sounds were distant. HEART: Regular with no appreciable murmurs. ABDOMEN: Soft, nontender, nondistended, obese but with positive bowel sounds. EXTREMITIES: Warm. She has 2+ longstanding edema with signs of chronic venous insufficiency and prior healed ulceration on her anterior house, most notably on the left more than right. NEUROLOGIC: Nonfocal. PSYCHIATRIC: Alert, oriented and appropriate. LABORATORY DATA: White blood cell count 12.9, hemoglobin 12.2, platelets of 274. Sodium of 138, potassium 4.3, BUN of 14, creatinine of 0.8, point care troponin was 0.16. IMAGING: EKG as discussed above. Chest x-ray showed no acute cardiopulmonary process. IMPRESSION AND PLAN: 1. High risk non-ST elevation myocardial infarction. 2. History of supraventricular tachycardia, atrial fibrillation with rapid ventricular response on anticoagulation. 3. Hypertension. 4. Type 2 diabetes. 5. Dyslipidemia. 6. Morbid obesity. Mrs. Baig is here with acute onset of chest pain with associated EKG changes and elevated troponin. At time of interview, she was having active chest pain. Decision was made to proceed with urgent cardiac catheterization and possible PCI. She was found to have a severe 80-90% mid LAD stenosis which was treated with 1 single drug-eluting stent. Post-procedure, patient is chest pain free and will be admitted to telemetry for further monitoring. Going forward, we plan to continue on aspirin and Plavix in addition to home apixaban for at least 1 month. At that time, consider dual antiplatelet therapy with clopidogrel and apixaban for 1 year. Patient was started on high intensity statin, continue on home metoprolol and low dose CHRISTINA inhibitor was added. We will plan for repeat echocardiogram and to trend troponin until peak. Going forward, [facility] cardiology service will resume care of patient tomorrow. Thank you for allowing us to participate in the care of this patient.
--- NOTE | 2017-11-10 19:54 | History and Physical ---
History & Physical Date & Time of Service: Nov 10, 2017 ~ 16:30 Chief Complaint: Chest Pain/Shortness Of Breath Primary Care Physician: Jason West M.D. History of Present Illness 72-year-old female who presented to the ER with a chief complaint of chest pain and shortness of breath. Patient was recently admitted to [facility] 10/13 through [place] 10/23 new onset atrial fibrillation. Patient was discharged on Eliquis and metoprolol. Patient was recently evaluated by electrophysiology as an outpatient and is planning on ablation next week. Patient reports she woke up this morning feeling in her usual state of health. She reports she was working on a puzzle and then developed chills. She then laid down. When she woke up, she reports she had midsternal chest pain. She describes as an ache. She rates the pain at its worst a #6/10. She also had associated shortness of breath. She denies diaphoresis, nausea, or lightheadedness. She has chronic lower extremity edema which is unchanged from baseline. She denies orthopnea. Reports she has been feeling well recently. She denies any fevers. No abdominal pain, vomiting, or diarrhea. She denies any urinary symptoms. In the ED, patient was found to have less than [address] elevation in leads V1 and V2. She also had a mildly elevated troponin. She was evaluated by Dr. Castellanos of interventional cardiology who took the patient to the [facility]. She was found to have an 80-90% mid LAD stenosis and had a drug- eluting stent placed. Patient is doing well post procedure. Past Medical/Surgical History Medical Problems: (1) Atrial fibrillation Status: Chronic (2) DM type 2 (diabetes mellitus, type 2) Status: Chronic (3) Dyslipidemia Status: Chronic (4) Hypertension Status: Chronic (5) Osteoarthritis Status: Chronic Surgical Problems: (1) H/O ovarian cystectomy Status: Chronic (2) History of appendectomy Status: Chronic (3) History of cholecystectomy Status: Chronic (4) History of right knee joint replacement Status: Chronic (5) History of tonsillectomy Status: Chronic Family History FH: CAD (coronary artery disease) MOTHER Hypertension MOTHER Social History Smoking Status: Former Smoker Alcohol Use: occasionally Immunizations History of Influenza Vaccine: Yes Influenza Vaccine Date: Jun 16, 2017 History of Tetanus Vaccine?: Yes Tetanus Immunization Date: Feb 28, 2008 History of Pneumococcal: Yes Pneumococcal Date: Oct 24, 2014 Allergies Coded Allergies: Cetirizine & Related (Verified Allergy, Intermediate, ANAPHYLAXIS, 10/13/17 ) Hallucinations Hydroxyzine (Verified Allergy, Unknown, 10/13/17) Home Medications Scheduled Apixaban (Eliquis), 5 MG PO BID Aspirin (Aspirin Ec), 81 MG PO DAILY Atorvastatin (Lipitor), 10 MG PO DAILY Calcium Carbonate-Vitamin D W/ (Caltrate 600 Plus), 2 TAB PO DAILY Coenzyme Q10 (Ubidecarenone) (Coq10), 1 TAB PO DAILY Dulaglutide (Trulicity), 1.5 MG INJ WK Glipizide (Glucotrol), 10 MG PO BID Magnesium Oxide (Mag-Ox), 400 MG PO BID Metformin Hcl (Glucophage), 500 MG PO TID Metoprolol Succinate (Metoprolol Succinate ER), 100 MG PO QAM Multivitamin (Multivitamin), 1 TAB PO DAILY Oxybutynin Chloride (Ditropan), 5 MG PO BID Polyethylene Glycol-Propylene (Systane), 1 DROPS OPB Q2H Venlafaxine Hcl (Venlafaxine Hcl Er), 1 TAB PO DAILY Miscellaneous Medications Cinnamon (Cinnamon), 500 MG PO Review of Systems ROS per HPI, all other systems reviewed and negative Physical Exam Vital Signs Date Time Temp Pulse Resp B/P (MAP) Pulse Ox O2 Delivery O2 Flow Rate FiO2 11/10/17 16:49 82 18 109/57 (74) 100 Nasal Cannula 2.0 11/10/17 16:34 80 18 113/74 (87) 95 Nasal Cannula 2.0 11/10/17 16:19 36.3 85 18 105/67 (80) 93 Nasal Cannula 2.0 11/10/17 16:11 95 18 128/74 (92) 94 Mask 11/10/17 15:56 94 18 138/80 (99) 96 Mask 11/10/17 13:58 97 28 136/90 100 Nasal Cannula 2.0 11/10/17 13:52 94 Nasal Cannula 2.0 11/10/17 13:52 37.3 102 24 140/79 91 Room Air 11/10/17 13:51 94 Nasal Cannula 3.0 11/10/17 13:51 104 11/10/17 13:51 94 Nasal Cannula 3.0 General Appearance: WD/WN, no apparent distress, + obese Head: normocephalic, atraumatic Eyes: normal inspection, EOMI, sclerae normal ENT: hearing grossly normal, + pertinent finding (Mucous membranes moist) Neck: supple, no JVD, trachea midline Respiratory/Chest: lungs clear, normal breath sounds, no respiratory distress Cardiovascular: regular rate, rhythm, normal peripheral pulses, + pertinent finding (+2 edema BLE) Abdomen/GI: normal bowel sounds, non tender, soft, no organomegaly Extremities/Musculoskelatal: normal inspection, no calf tenderness, normal capillary refill, + pertinent finding (Right radial compression dressing intact , no signs of bleeding) Neurologic/Psych: no motor/sensory deficits, alert, normal mood/affect, oriented x 3 Skin: normal color, warm/dry Diagnostics Laboratory Results Results Past 24 Hours Test 11/10/17 13:45 11/10/17 13:51 11/10/17 13:52 11/10/17 14:11 Range/Units White Blood Count 12.89 4.8-10.8 K/uL Red Blood Count 4.42 4.2-5.4 M/uL Hemoglobin 12.2 12.0-16.0 g/dL Hematocrit 38.2 37-47 % Mean Corpuscular Volume 86.4 80-100 fL Mean Corpuscular Hemoglobin 27.6 25-34 pg Mean Corpuscular Hemoglobin Concent 31.9 32-36 g/dl Platelet Count 274 130-400 K/uL Mean Platelet Volume 9.0 7.4-10.4 fL Neutrophils (%) (Auto) 88.4 % Lymphocytes (%) (Auto) 5.6 % Monocytes (%) (Auto) 4.3 % Eosinophils (%) (Auto) 1.3 % Basophils (%) (Auto) 0.2 % Neutrophils # (Auto) 11.39 1.4-6.5 K/uL Lymphocytes # (Auto) 0.72 1.2-3.4 K/uL Monocytes # (Auto) 0.55 0.11-0.59 K/uL Eosinophils # (Auto) 0.17 0-0.5 K/uL Basophils # (Auto) 0.03 0-0.2 K/uL RDW Standard Deviation 42.4 36.4-46.3 fL RDW Coefficient of Variation 13.4 11.5-14.5 % Immature Granulocyte % (Auto) 0.2 % Immature Granulocyte # (Auto) 0.03 0.00-0.02 K/uL Sodium Level 137 136-145 mmol/L Potassium Level 4.4 3.5-5.1 mmol/L Chloride Level 101 98-107 mmol/L Carbon Dioxide Level 30 21-32 mmol/L Anion Gap 5.0 18.0 16-25 mmol/L Blood Urea Nitrogen 14 7-18 mg/dl Creatinine 0.80 0.60-1.20 mg/dl Est Creatinine Clear Calc Drug Dose 86.3 ml/min Estimated GFR () 84.8 Estimated GFR (Non- 73.1 BUN/Creatinine Ratio 17.9 10-20 Random Glucose 202 70-99 mg/dl Calcium Level 8.8 8.5-10.1 mg/dl Total Bilirubin 0.4 0.2-1 mg/dl Direct Bilirubin 0.1 0-0.2 mg/dl Aspartate Amino Transf (AST/SGOT) 21 15-37 U/L Alanine Aminotransferase (ALT/SGPT) 26 12-78 U/L Alkaline Phosphatase 97 45-117 U/L Total Protein 7.5 6.4-8.2 gm/dl Albumin 3.0 3.4-5.0 gm/dl Lipase 148 73-393 U/L Bedside Troponin I 0.160 0-0.045 ng/ml Bedside Lactic Acid Venous 2.42 0.90-1.70 mmol/L Bedside Hemoglobin 13.3 12.0-16.0 g/dl Bedside Hematocrit 39 37-47 % Bedside Sodium 138 135-144 mEq/L Bedside Potassium 4.3 3.3-5.0 mEq/L Bedside Chloride 98 101-112 mEq/L Bedside Total CO2 27 24-31 mEq/l Bedside Blood Urea Nitrogen 15 7-18 mg/dl Bedside Creatinine 0.6 0.6-1.3 mg/dl Bedside Glucose (other) 210 70-99 mg/dl Bedside Ionized Calcium (Mary) 1.17 1.12-1.32 mmol/l Test 11/10/17 15:07 11/10/17 15:34 Range/Units Kaolin Activated Coagulation Time 257 257 94-140 SECONDS Diagnostic Radiology CXR IMPRESSION: No acute cardiopulmonary abnormality. 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, will continue with Plavix 75 mg daily and aspirin 81 mg daily 1 month then Plavix and Eliquis only -Statin increased to high-dose -Continue beta-iman, started on CHRISTINA inhibitor -Continue to cycle cardiac enzymes until peak -Check resting echocardiogram LEUKOCYTOSIS -WBC 12.8 K -Patient does report chills today however no documented fevers -Mildly elevated lactic acid -Chest x-ray clear -Will check urine -Continue IV fluids, follow lactic acid ATRIAL FIBRILLATION -On beta-iman for rate control -Anticoagulated on Eliquis -Following with EP as an outpatient and is scheduled for ablation next month HTN -BP controlled, continue metoprolol and lisinopril added due to NSTEMI DM -Hgb A1c 9. -Hold oral agents and utilize NovoLog per protocol while hospitalized DVT PROPHYLAXIS -SCDs DISPO -The patient will be placed as observation status for now until further work up is complete. ATTENDING ADDENDUM: The patient was seen and examined the medical floor following cardiac catheterization. She was admitted with chest pain and non-ST elevation KS, underwent cardiac cath with the drug-eluting stent LAD Following the procedure she has been complaining of some chest pain but no other symptoms associated with it. She feels generally well following the procedure On examination: No apparent distress at rest. Hemodynamically stable. Chest-clear to auscultate bilaterally. Heart-S1-S2 regular.,no murmur appreciated Abdomen-benign, nontender, no masses, bowel sounds present. Extremities- trace edema bilaterally. ELECTRONIC ASSEMBLER -alert,awake, orientedX3 Admission labs, EKG, imaging studies and cath report reviewed. Non-ST elevation [place] status post drug-eluting stent in LAD with history of atrial fibrillation on Eliquis. Remains is reasonably stable, Agree with assessment and plan as mentioned above. Dr. Kei Pinedo Resuscitation Status VTE Prophylaxis Will order VTE Prophylaxis: Yes
[2017-11-10] MEDS: MAGNESIUM OXIDE 400 MG TAB PO SCH (20:52)
[2017-11-10] MEDS: OXYBUTYNIN CHLORIDE 5 MG TAB PO SCH (20:52)
[2017-11-10] MEDS: INSULIN ASPART 100 UNITS/ML 3 ML PEN SC SCH (20:55)
[2017-11-10] MEDS ORDERED: BUTALBITAL/ACETAMIN/CAFFEINE TAB PO ONE (21:00)
[2017-11-11] VITALS (34 sets, daily range): BP systolic 52–144; BP diastolic 30–92; PULSE 80–137; TEMP 36.6–37.8; O2SAT 33–100
[2017-11-11] MEDS ORDERED: FUROSEMIDE INJ 20 MG in SYRINGE 0 ML IV ONE ×2 (04:45→08:15)
[2017-11-11 06:05] LABS: BASO % 0.2 %; BASO ABS # 0.02 K/uL (0-0.2); EOS % 0.1 %; EOS ABS # 0.01 K/uL (0-0.5); HEMATOCRIT 39.4 % (37-47); HEMOGLOBIN 12.3 g/dL (12.0-16.0); IG# 0.04 K/uL (0.00-0.02); LYMPH % 9.4 %; MEAN CELL VOLUME 86.2 fL (80-100); MEAN CORPUSCULAR HEMOGLOBIN 26.9 pg (25-34); MEAN CORPUSCULAR HGB CONC 31.2 g/dl (32-36); MEAN PLATELET VOLUME 9.7 fL (7.4-10.4); MONO ABS # 0.42 K/uL (0.11-0.59); NEUT % 85.9 %; NEUT ABS # 9.14 K/uL (1.4-6.5); PLATELET COUNT 268 K/uL (130-400); RED CELL DISTRIBUTION WIDTH CV 13.5 % (11.5-14.5); RED CELL DISTRIBUTION WIDTH SD 42.6 fL (36.4-46.3); WHITE BLOOD COUNT 10.63 K/uL (4.8-10.8)
[2017-11-11 06:34] LABS: CALCIUM 8.6 mg/dl (8.5-10.1); CREATININE 0.7 mg/dl (0.60-1.20); POTASSIUM 4.6 mmol/L (3.5-5.1)
[2017-11-11] MEDS: INSULIN ASPART 100 UNITS/ML 3 ML PEN SC SCH ×4 (07:00→20:53)
[2017-11-11] MEDS: NITROGLYCERIN 0.4 MG SL PER TAB CHARGE SL PRN (07:05)
[2017-11-11] MEDS: METOPROLOL SUCC 50MG EXT REL TAB PO SCH (07:07)
--- NOTE | 2017-11-11 07:42 | DIAGNOSTIC IMAGING REPORT ---
CHEST ONE VIEW PORTABLE CLINICAL HISTORY: 72 years-old Female presenting with SOB. TECHNIQUE: Portable upright AP view of the chest was obtained. COMPARISON: 11/10/2017. FINDINGS: Atherosclerosis of aortic arch. Cardiac silhouette enlarged. Pulmonary vascular prominence. Mildly low lung volumes with chronic elevation of the right hemidiaphragm. Interval development of a small right pleural effusion. Prominent lung markings bilaterally with a basilar predominance. Mild bronchial wall cuffing. No large pneumothorax. Degenerative changes of the thoracic spine. Cholecystectomy clips noted. IMPRESSION: 1. Cardiomegaly with volume overload/congestive change and small right pleural effusion. Developing pulmonary edema may be present. Electronically signed by: Jonas Olivera M.D. 11/11/2017 7:41 AM Dictated Date/Time: 11/11/2017 6:51 AM
[2017-11-11] MEDS ORDERED: FUROSEMIDE 40 MG/4 ML VIAL ONE (07:53)
[2017-11-11] MEDS ORDERED: FENTANYL CITRATE INJ 50 MCG/1 ML 2 ML VIAL ONE (08:32)
[2017-11-11] MEDS ORDERED: NiCARDipine HCL INJ 2.5 MG/ML 10 ML AMP ONE (08:32)
[2017-11-11] MEDS ORDERED: HEPARIN SOD (PORCINE) 1000 UNIT/ML 10 ML VIAL ONE (08:32)
[2017-11-11] MEDS ORDERED: MIDAZOLAM HCL 1 MG/ML 2ML VIAL ONE (08:33)
[2017-11-11] MEDS ORDERED: NITROGLYCERIN/D5W 100MCG/ML 20ML SYR ONE (08:33)
[2017-11-11] MEDS ORDERED: LIDOCAINE HCL 1% 20 ML VIAL ONE (08:45)
[2017-11-11] MEDS ORDERED: COENZYME Q10 PO SCH (09:00)
[2017-11-11] MEDS ORDERED: LISINOPRIL 5 MG TAB PO SCH (09:00)
--- NOTE | 2017-11-11 09:29 | Cardiac Catheterization ---
Procedure Note Procedure Date Nov 11, 2017. Pre-Procedure Diagnosis Angina AUC Score 8 Post-Procedure Diagnosis Moderate CAD, Elevated Intracardiac Pressures Procedure(s) Performed Coronary Angiography, Left Heart Cath Head Operator Emanuel [employer] Specialist(s) Estimated Blood Loss 10 Medication(s) Fentanyl, Nicardipine, Nitroglycerin, Versed, Lidocaine 1% Summary of Findings Patient brought back to the lab coordinator in the setting of recurrent chest pain, heart failure and new severe LV dysfunction. 6Fr right radial artery access [place] catheter FINDINGS: LAD stent widely patent with no apparent coronary complications. Persistent moderate to severe distal circumflex disease after take-off of 2nd OM. RCA with unchanged mild proximal disease. LVEDP: 25 SUMMARY: 1. Widely patent mid LAD stent 2. Elevated left sided filling pressures. RECOMMENDATIONS: - Continue current antiplatelet therapy. - Continued diuresis. Hemodynamics Rest Ao: 118/78/96 Final Ao: 125/77/99 LV: 120/25 Recommendations Medical therapy and/or Counseling Specimens None Radiation Exposure (mGy) 1003 Contrast (mls) 30 Visi Fluids (cc crystalloids) 40 Drains none Anesthesia moderate Procedural Complication(s) None Disposition ICU ACC Data Cardiac Status Clinical evaluation leading to the procedure CAD Presntation: Non STEMI Anginal Classification: CCS IV Heart Failure: NYHA Class: CCS IV Cardiogenic Shock w/in 24Hrs: No Cardiac Arrest w/in 24Hrs: No Imaging studies past 6 months: Yes Stress studies past 6 months: No Diagnostic Status: Urgent Closure Device Percutaneous Entry Location: Radial Closure Device: Radial Band Recommendations: Medical therapy and/or Counseling Intraprocedure Events Significant Dissection: No Perforation: No
[2017-11-11] MEDS ORDERED: LISINOPRIL 5 MG TAB PO ONE (11:30)
--- NOTE | 2017-11-11 11:47 | Progress Note ---
Medicine Progress Note Date & Time of Visit: Nov 11, 2017 at 10:57. Subjective Pt was seen and examined Lying in bed complaining of chest pain Nurse was at bedside Pt said that her breathing seems to improved slightly after given the lasix He said that her chest pain seems to improve slightly She was breathing heavily in the bed Repeat Stat EKG done Case discussed with cardiology Pt was brought to the cardiac lab to evaluate the stent that was placed yesterday Objective Last 8 Hrs Date Time Temp Pulse Resp B/P (MAP) Pulse Ox O2 Delivery O2 Flow Rate FiO2 11/11/17 10:28 98 99 40 11/11/17 09:20 108 28 125/80 (95) 99 Oxymask 10 11/11/17 07:21 37.8 137 26 141/81 (101) 95 Oxymask 8.0 11/11/17 04:00 Oxymask 5.0 11/11/17 03:23 37.1 107 24 121/78 (92) 96 Oxymask 8.0 Physical Exam: General- No acute distress Head- atraumatic Eyes- PERRL, EOMI ENT- oropharynx clear Neck- supple, no JVD Lungs- Decrease breath sound Heart- +tachycardia Abdomen- normal bowel sounds, soft Extremities- no calf tenderness Neuro- alert, oriented x 3; PERRL, EOMI Skin- warm & dry Laboratory Results: Last 24 Hours Test 11/10/17 13:45 11/10/17 13:51 11/10/17 13:52 11/10/17 14:11 White Blood Count 12.89 K/uL Red Blood Count 4.42 M/uL Hemoglobin 12.2 g/dL Hematocrit 38.2 % Mean Corpuscular Volume 86.4 fL Mean Corpuscular Hemoglobin 27.6 pg Mean Corpuscular Hemoglobin Concent 31.9 g/dl Platelet Count 274 K/uL Mean Platelet Volume 9.0 fL Neutrophils (%) (Auto) 88.4 % Lymphocytes (%) (Auto) 5.6 % Monocytes (%) (Auto) 4.3 % Eosinophils (%) (Auto) 1.3 % Basophils (%) (Auto) 0.2 % Neutrophils # (Auto) 11.39 K/uL Lymphocytes # (Auto) 0.72 K/uL Monocytes # (Auto) 0.55 K/uL Eosinophils # (Auto) 0.17 K/uL Basophils # (Auto) 0.03 K/uL RDW Standard Deviation 42.4 fL RDW Coefficient of Variation 13.4 % Immature Granulocyte % (Auto) 0.2 % Immature Granulocyte # (Auto) 0.03 K/uL Sodium Level 137 mmol/L Potassium Level 4.4 mmol/L Chloride Level 101 mmol/L Carbon Dioxide Level 30 mmol/L Anion Gap 5.0 mmol/L 18.0 mmol/L Blood Urea Nitrogen 14 mg/dl Creatinine 0.80 mg/dl Est Creatinine Clear Calc Drug Dose 86.3 ml/min Estimated GFR () 84.8 Estimated GFR (Non- 73.1 BUN/Creatinine Ratio 17.9 Random Glucose 202 mg/dl Calcium Level 8.8 mg/dl Total Bilirubin 0.4 mg/dl Direct Bilirubin 0.1 mg/dl Aspartate Amino Transf (AST/SGOT) 21 U/L Alanine Aminotransferase (ALT/SGPT) 26 U/L Alkaline Phosphatase 97 U/L Total Protein 7.5 gm/dl Albumin 3.0 gm/dl Lipase 148 U/L Bedside Troponin I 0.160 ng/ml Bedside Lactic Acid Venous 2.42 mmol/L Bedside Hemoglobin 13.3 g/dl Bedside Hematocrit 39 % Bedside Sodium 138 mEq/L Bedside Potassium 4.3 mEq/L Bedside Chloride 98 mEq/L Bedside Total CO2 27 mEq/l Bedside Blood Urea Nitrogen 15 mg/dl Bedside Creatinine 0.6 mg/dl Bedside Glucose (other) 210 mg/dl Bedside Ionized Calcium (Mary) 1.17 mmol/l Test 11/10/17 15:07 11/10/17 15:34 11/10/17 17:38 11/10/17 19:58 Kaolin Activated Coagulation Time 257 SECONDS 257 SECONDS Lactic Acid Level 2.2 mmol/L Troponin I 1.860 ng/ml Bedside Glucose 226 mg/dl Test 11/10/17 21:45 11/10/17 22:55 11/11/17 05:16 11/11/17 07:04 Urine Color YELLOW Urine Appearance CLOUDY Urine pH 5.0 Urine Specific [place] > 1.045 Urine Protein 1+ Urine Glucose (UA) 2+ Urine Ketones NEG Urine Occult Blood 3+ Urine Nitrite NEG Urine Bilirubin NEG Urine Urobilinogen NEG Urine Leukocyte Esterase NEG Urine WBC (Auto) 1-5 /hpf Urine RBC (Auto) >30 /hpf Urine Hyaline Casts (Auto) 1-5 /lpf Urine Epithelial Cells (Auto) 5-10 /lpf Urine Bacteria (Auto) NEG Urine Yeast (Auto) BUDDING Lactic Acid Level 1.6 mmol/L Troponin I 2.390 ng/ml 3.780 ng/ml White Blood Count 10.63 K/uL Red Blood Count 4.57 M/uL Hemoglobin 12.3 g/dL Hematocrit 39.4 % Mean Corpuscular Volume 86.2 fL Mean Corpuscular Hemoglobin 26.9 pg Mean Corpuscular Hemoglobin Concent 31.2 g/dl Platelet Count 268 K/uL Mean Platelet Volume 9.7 fL Neutrophils (%) (Auto) 85.9 % Lymphocytes (%) (Auto) 9.4 % Monocytes (%) (Auto) 4.0 % Eosinophils (%) (Auto) 0.1 % Basophils (%) (Auto) 0.2 % Neutrophils # (Auto) 9.14 K/uL Lymphocytes # (Auto) 1.00 K/uL Monocytes # (Auto) 0.42 K/uL Eosinophils # (Auto) 0.01 K/uL Basophils # (Auto) 0.02 K/uL RDW Standard Deviation 42.6 fL RDW Coefficient of Variation 13.5 % Immature Granulocyte % (Auto) 0.4 % Immature Granulocyte # (Auto) 0.04 K/uL Sodium Level 131 mmol/L Potassium Level 4.6 mmol/L Chloride Level 99 mmol/L Carbon Dioxide Level 23 mmol/L Anion Gap 9.0 mmol/L Blood Urea Nitrogen 12 mg/dl Creatinine 0.70 mg/dl Est Creatinine Clear Calc Drug Dose 97.1 ml/min Estimated GFR () 99.6 Estimated GFR (Non- 86.0 BUN/Creatinine Ratio 16.8 Random Glucose 253 mg/dl Calcium Level 8.6 mg/dl Bedside Glucose 317 mg/dl Test 11/11/17 10:15 Blood Gas Sample Site L Radial Bedside Blood Gas pH (LAB) 7.42 Bedside Blood Gas pCO2 (LAB) 39 mmHg Bedside Blood Gas pO2 (LAB) 134 mmHg Bedside Blood Gas HCO3 (LAB) 25 meq/L Bedside Blood Gas Total CO2 27 mEq/l Bedside Blood Gas Base Excess (LAB) 1.0 meq/L Bedside Blood Gas O2 Saturation 99.0 % Bro Test Pass Oxygen Delivery Device Cannula Date/Time Source Procedure Growth Status 11/10/17 21:45 Urine,Catheterized Urine Culture Pending Received Assessment & Plan NSTEMI Presenting with chest pain and shortness of breath on admission n the ED on admission EKG showed subtle ST elevations in 1, 2, and V1 and V2 as well as new T-wave inversions in V1, V2 and V3. Had Cath done yesterday that showed 80-90% LAD lesion and had a drug-eluting stent placed Starting on Aspirin and Plavix and continue eliquis for 1 month, then Plavix and Eliquis for 1 year Continue Statin, Metoprolol and ACEI Developed chest pain this morning Troponin trending up to 3.7 Case discussed with Cardiology and brought her to cardiac cath for eval of the stent that was placed yesterday Widely patent mid LAD stent ECHO done this morning showed new severe LV dysfunction. Pt will be monitor in the ICU ACUTE SYSTOLIC CHF CXR showed cardiomegaly with volume overload/congestive change and small right pleural effusion. Received lasix 20mgx1 Will continue lasix as per cardiology management Final echo report pending LEUKOCYTOSIS WBC 12.8 K on admission, now 10K Mildly elevated lactic acid possible related to NSTEMI CXR showed no sign of pneumonia and UA negative for UTI Continue monitor ATRIAL FIBRILLATION HR was elevated in the 140 Metoprolol was given Now HR in the 90's Continue Eliquis Scheduled for ablation next month HTN BP controlled continue metoprolol and lisinopril DM Last Hgb A1c 9. BS elevated Hold oral agents and utilize NovoLog per protocol while hospitalized Will monitor BS closely DVT PROPHYLAXIS On Eliquis Disposition Will monitor in the ICU Current Inpatient Medications: Current Inpatient Medications Medications (Trade) Dose Ordered Sig/Tasha Route Start Time Stop Time Status Last Admin Dose Admin Miscellaneous (Iv Fluids Completed) 1 ea PRN PRN N/A 11/10/17 16:00 11/10/18 15:59 Nitroglycerin (Nitrostat Tab) 0.4 mg UD PRN SL 11/10/17 16:15 12/10/17 16:14 11/11/17 07:05 0.4 MG Ondansetron HCl (Zofran Inj) 4 mg Q6H PRN IV 11/10/17 16:15 12/10/17 16:14 Clopidogrel Bisulfate (plAVix TAB) 75 mg QAM PO 11/11/17 09:00 12/11/17 08:59 Atorvastatin Calcium (Lipitor Tab) 80 mg QAM PO 4/12/18 09:00 12/11/17 08:59 Lisinopril (Zestril Tab) 5 mg QAM PO 11/11/17 09:00 12/11/17 08:59 Acetaminophen (Tylenol Tab) 650 mg Q4H PRN PO 11/10/17 16:15 12/10/17 16:14 11/10/17 19:12 650 MG Aspirin (Ecotrin Tab) 81 mg DAILY PO 11/11/17 09:00 12/11/17 08:59 Calcium/Vitamin D (Caltrate Plus Tab) 2 tab DAILY PO 11/11/17 09:00 12/11/17 08:59 Magnesium Oxide (Mag-Ox Tab) 400 mg BID PO 11/10/17 21:00 12/10/17 20:59 11/10/17 20:52 400 MG Metoprolol Succinate (Toprol Xl Tab) 100 mg QAM PO 11/11/17 09:00 12/11/17 08:59 11/11/17 07:07 100 MG Multivitamins (Multivitamin Tab) 1 tab DAILY PO 11/11/17 09:00 12/11/17 08:59 Oxybutynin Chloride (Ditropan Tab) 5 mg BID PO 11/10/17 21:00 12/10/17 20:59 11/10/17 20:52 5 MG Venlafaxine HCl (effeXOR EXTENDED REL CAP) 75 mg DAILY PO 11/11/17 09:00 12/11/17 08:59 Apixaban (Eliquis Tab) 5 mg BID PO 11/11/17 09:00 12/11/17 08:59 Insulin Aspart (novoLOG ASPART) SLIDING SCALE If C... ACHS SC 11/10/17 21:00 12/10/17 20:59 11/10/17 20:55 4 UNITS Glucose (Glucose 40% Gel) 15-30 GRAMS 15 GRAMS... UD PRN PO 11/10/17 17:15 12/10/17 17:14 Glucose (Glucose Chew Tab) 4-8 Tablets 4 Tabl... UD PRN PO 11/10/17 17:15 12/10/17 17:14 Dextrose (Dextrose 50% 50ML Syringe) 25-50ML OF 50% DW IV FOR... UD PRN IV 11/10/17 17:15 12/10/17 17:14 Glucagon (Glucagon Inj) 1 mg UD PRN SQ 11/10/17 17:15 12/10/17 17:14
--- NOTE | 2017-11-11 11:52 | Cardiology Consultation ---
Cardiology Consultation Date of Service Nov 11, 2017. Cardiology Consultation Indication: Consultation for acute coronary syndrome History: This is a 72-year-old female who was in the hospital approximately a month ago and found to have an SVT. She was being worked up by the EP service as an outpatient and had actually been scheduled for an EP study if possible ablation for AV davian reentry tachycardia. The patient presented yesterday with chest discomfort and was found to have EKG changes suggesting a possible infarct. Patient was taken to the cardiac catheterization lab by Dr. Castellanos who placed a coronary stent within the LAD. The procedure went well and the patient was doing well on PCU until early this morning she developed what is reported as an SVT. She then went into heart failure. I reviewed the telemetry from last night I think she actually was in a sinus rhythm and developed sinus tachycardia most likely due to respiratory distress from heart failure. The patient's echocardiogram was reviewed and she has an extensive area of hypo-to akinesis of the anterior myocardium consistent with the LAD distribution. Overall the estimated left ventricular ejection fraction is estimated to be 20%. She was placed on BiPAP and given IV diuretics. She was also taken again to the cardiac catheterization lab by Dr. Castellanos for a relook and the coronary stent was open. She is now admitted to the ICU. She is comfortable receiving BiPAP and has had a brisk diuresis. Her heart rates have improved. Her family was there and all questions were addressed and answered. Allergies: Cetirizine and hydroxyzine Reported Home Medications Medications Dose Route/Sig Max Daily Dose Days Date Category Metoprolol Succinate ER (Metoprolol Succinate) 50 Mg Tabcr 100 Mg PO QAM 30 10/19/17 Rx Eliquis (Apixaban) 5 Mg Tab 5 Mg PO BID 10/19/17 Rx Systane (Polyethylene Glycol-Propylene) 1 Luna Luna 1 Drops OPB Q2H 10/13/17 Reported Venlafaxine Hcl Er (Venlafaxine Hcl) 75 Mg Tab 1 Tab PO DAILY 10/13/17 Reported Trulicity (Dulaglutide) 1.5 Mg/0.5 Ml Inj 1.5 Mg INJ WK 10/13/17 Reported Coq10 (Coenzyme Q10 (Ubidecarenone)) 150 Mg Cap 1 Tab PO DAILY 10/13/17 Reported Mag-Ox (Magnesium Oxide) 400 Mg Tab 400 Mg PO BID 10/13/17 Reported Cinnamon 500 Mg Cap 500 Mg PO 10/13/17 Reported Multivitamin (Multivitamins) Tab 1 Tab PO DAILY 10/13/17 Reported Caltrate 600 Plus (Calcium Carbonate-Vitamin D W/) 1 Tab Tab 2 Tab PO DAILY 10/13/17 Reported Ditropan (Oxybutynin Chloride) 5 Mg Tab 5 Mg PO BID 10/13/17 Reported Glucotrol (Glipizide) 10 Mg Tab 10 Mg PO BID 10/13/17 Reported Glucophage (Metformin Hcl) 500 Mg Tab 500 Mg PO TID 10/13/17 Reported Aspirin Ec (Aspirin) 81 Mg Tab 81 Mg PO DAILY 10/13/17 Reported Lipitor (Atorvastatin Calcium) 10 Mg Tab 10 Mg PO DAILY 01/27/10 Reported Past medical history: Including the above the patient has a history of diabetes , hypertension and dyslipidemia. No prior history of coronary artery disease. No prior history of strokes or kidney disease. Social history: Patient is a non-smoker Family medical history: Significant for diabetes. General: The patient is currently on BiPAP Head: The patient denies headache and prior head trauma. Cardiovascular: The patient denies chest pain or chest discomfort, dyspnea on exertion, palpitations, PND, orthopnea, edema, spontaneous shortness of breath, syncope and near syncope. Pulmonary: The patient denies cough, wheeze, pleurisy, hemoptysis, sputum, and excessive snoring. Gastrointestinal: The patient denies nausea, vomiting, diarrhea, constipation, bloating, hematemesis, hematochezia, and abdominal pain. Skin: The patient denies diaphoresis and rash. Musculoskeletal: The patient denies joint pain, joint swelling, myalgia, back pain, neck pain and prior injuries. Neurological: The patient denies prior stroke and seizures Vital Signs Past 12 Hours Date Time Temp Pulse Resp B/P (MAP) Pulse Ox O2 Delivery O2 Flow Rate FiO2 11/11/17 10:28 98 99 40 11/11/17 09:20 108 28 125/80 (95) 99 Oxymask 10 11/11/17 07:21 37.8 137 26 141/81 (101) 95 Oxymask 8.0 11/11/17 04:00 Oxymask 5.0 11/11/17 03:23 37.1 107 24 121/78 (92) 96 Oxymask 8.0 11/10/17 23:59 Oxymask 2.0 11/10/17 23:50 37.1 93 22 145/78 (100) 96 Nasal Cannula 2.0 General Appearance: Alert and Oriented x3. NAD. Head: Normocephalic Atraumatic. Eyes: PERRLA, EOMI, conjunctiva and sclera clear Neck: Supple. No carotid bruits noted. No JVD. No HJD. Respiratory: Breath sounds clear to auscultation bilaterally. No w/r/r. Cardiovascular: Reg rate and rhythm. S1 and S2 noted. No murmurs, rubs, gallops. PMI non displace. Abdomen: Normal bowel sounds, soft nontender. no abdominal bruits. Extremities: No edema, no clubbing or cyanosis. distal pulses 2/4 bilaterally. Neuro: No focal deficits. Psychiatric: Normal affect. Last 24 Hours Test 11/10/17 13:45 11/10/17 13:51 11/10/17 13:52 11/10/17 14:11 White Blood Count 12.89 K/uL Red Blood Count 4.42 M/uL Hemoglobin 12.2 g/dL Hematocrit 38.2 % Mean Corpuscular Volume 86.4 fL Mean Corpuscular Hemoglobin 27.6 pg Mean Corpuscular Hemoglobin Concent 31.9 g/dl Platelet Count 274 K/uL Mean Platelet Volume 9.0 fL Neutrophils (%) (Auto) 88.4 % Lymphocytes (%) (Auto) 5.6 % Monocytes (%) (Auto) 4.3 % Eosinophils (%) (Auto) 1.3 % Basophils (%) (Auto) 0.2 % Neutrophils # (Auto) 11.39 K/uL Lymphocytes # (Auto) 0.72 K/uL Monocytes # (Auto) 0.55 K/uL Eosinophils # (Auto) 0.17 K/uL Basophils # (Auto) 0.03 K/uL RDW Standard Deviation 42.4 fL RDW Coefficient of Variation 13.4 % Immature Granulocyte % (Auto) 0.2 % Immature Granulocyte # (Auto) 0.03 K/uL Sodium Level 137 mmol/L Potassium Level 4.4 mmol/L Chloride Level 101 mmol/L Carbon Dioxide Level 30 mmol/L Anion Gap 5.0 mmol/L 18.0 mmol/L Blood Urea Nitrogen 14 mg/dl Creatinine 0.80 mg/dl Est Creatinine Clear Calc Drug Dose 86.3 ml/min Estimated GFR () 84.8 Estimated GFR (Non- 73.1 BUN/Creatinine Ratio 17.9 Random Glucose 202 mg/dl Calcium Level 8.8 mg/dl Total Bilirubin 0.4 mg/dl Direct Bilirubin 0.1 mg/dl Aspartate Amino Transf (AST/SGOT) 21 U/L Alanine Aminotransferase (ALT/SGPT) 26 U/L Alkaline Phosphatase 97 U/L Total Protein 7.5 gm/dl Albumin 3.0 gm/dl Lipase 148 U/L Bedside Troponin I 0.160 ng/ml Bedside Lactic Acid Venous 2.42 mmol/L Bedside Hemoglobin 13.3 g/dl Bedside Hematocrit 39 % Bedside Sodium 138 mEq/L Bedside Potassium 4.3 mEq/L Bedside Chloride 98 mEq/L Bedside Total CO2 27 mEq/l Bedside Blood Urea Nitrogen 15 mg/dl Bedside Creatinine 0.6 mg/dl Bedside Glucose (other) 210 mg/dl Bedside Ionized Calcium (Mary) 1.17 mmol/l Test 11/10/17 15:07 11/10/17 15:34 11/10/17 17:38 11/10/17 19:58 Kaolin Activated Coagulation Time 257 SECONDS 257 SECONDS Lactic Acid Level 2.2 mmol/L Troponin I 1.860 ng/ml Bedside Glucose 226 mg/dl Test 11/10/17 21:45 11/10/17 22:55 11/11/17 05:16 11/11/17 07:04 Urine Color YELLOW Urine Appearance CLOUDY Urine pH 5.0 Urine Specific [place] > 1.045 Urine Protein 1+ Urine Glucose (UA) 2+ Urine Ketones NEG Urine Occult Blood 3+ Urine Nitrite NEG Urine Bilirubin NEG Urine Urobilinogen NEG Urine Leukocyte Esterase NEG Urine WBC (Auto) 1-5 /hpf Urine RBC (Auto) >30 /hpf Urine Hyaline Casts (Auto) 1-5 /lpf Urine Epithelial Cells (Auto) 5-10 /lpf Urine Bacteria (Auto) NEG Urine Yeast (Auto) BUDDING Lactic Acid Level 1.6 mmol/L Troponin I 2.390 ng/ml 3.780 ng/ml White Blood Count 10.63 K/uL Red Blood Count 4.57 M/uL Hemoglobin 12.3 g/dL Hematocrit 39.4 % Mean Corpuscular Volume 86.2 fL Mean Corpuscular Hemoglobin 26.9 pg Mean Corpuscular Hemoglobin Concent 31.2 g/dl Platelet Count 268 K/uL Mean Platelet Volume 9.7 fL Neutrophils (%) (Auto) 85.9 % Lymphocytes (%) (Auto) 9.4 % Monocytes (%) (Auto) 4.0 % Eosinophils (%) (Auto) 0.1 % Basophils (%) (Auto) 0.2 % Neutrophils # (Auto) 9.14 K/uL Lymphocytes # (Auto) 1.00 K/uL Monocytes # (Auto) 0.42 K/uL Eosinophils # (Auto) 0.01 K/uL Basophils # (Auto) 0.02 K/uL RDW Standard Deviation 42.6 fL RDW Coefficient of Variation 13.5 % Immature Granulocyte % (Auto) 0.4 % Immature Granulocyte # (Auto) 0.04 K/uL Sodium Level 131 mmol/L Potassium Level 4.6 mmol/L Chloride Level 99 mmol/L Carbon Dioxide Level 23 mmol/L Anion Gap 9.0 mmol/L Blood Urea Nitrogen 12 mg/dl Creatinine 0.70 mg/dl Est Creatinine Clear Calc Drug Dose 97.1 ml/min Estimated GFR () 99.6 Estimated GFR (Non- 86.0 BUN/Creatinine Ratio 16.8 Random Glucose 253 mg/dl Calcium Level 8.6 mg/dl Bedside Glucose 317 mg/dl Test 11/11/17 10:15 Blood Gas Sample Site L Radial Bedside Blood Gas pH (LAB) 7.42 Bedside Blood Gas pCO2 (LAB) 39 mmHg Bedside Blood Gas pO2 (LAB) 134 mmHg Bedside Blood Gas HCO3 (LAB) 25 meq/L Bedside Blood Gas Total CO2 27 mEq/l Bedside Blood Gas Base Excess (LAB) 1.0 meq/L Bedside Blood Gas O2 Saturation 99.0 % Bro Test Pass Oxygen Delivery Device Cannula Impression/recommendations:: This is a 72-year-old female who most likely had an anterior wall myocardial infarction within the past several weeks. She presented with chest pain and EKGs changes suggesting ACS was taken to the cardiac catheterization lab where she received a stent within the proximal LAD. The patient's echocardiogram has changed dramatically from the one performed about a month ago, showing extensive wall motion abnormalities of the anterior myocardium consistent with the LAD distribution. The patient has not had a significant rise in her cardiac troponins and this would suggest that she has had perhaps a stuttering course or previous event prior to this hospital admission. She went into heart failure last night after her stent procedure. She has an ischemic cardiomyopathy with very poor LV function and estimated left ventricular ejection fraction 20%. I am hopeful but it is unlikely that this is due to stunned myocardium, but if stunned, we should start to see an improvement over time. Currently she is stable and in the ICU on BiPAP and diuresing nicely after diuretics. I am going to increase her CHRISTINA inhibitor and she will be continued on Eliquis, Plavix and aspirin along with her metoprolol.
--- NOTE | 2017-11-11 12:01 | Critical Care Consultation ---
Critical Care Consultation Date of Consultation: Nov 11, 2017. Attending Physician: Abhinav Moreno DO Reason for Consultation: Acute hypoxic failure in the setting of heart failure History of Present Illness Ms. Baig is a 72 year old female here in the ICU for acute hypoxic failure in the setting of congestive heart failure. Pt presented to the ED yesterday afternoon via EMS due to chest pain and shortness of breath. On arrival here in the emergency department, EKG showed sinus tachycardia, rate of 107. QTc intervals within normal limits, mild ST elevation/biphasic T waves in lead V1 V2, concerning for Wellens/proximal LAD occlusion. Dr. Castellanos performed urgent cardiac catheterization -- she was found to have a severe 80-90% mid LAD stenosis which was treated with 1 single drug-eluting stent. Pt began experiencing symptoms this morning, echo and repeat ECG done. Per Dr. Castellanos, echo showed anterior wall hypokinesis, EF 25-30%. Decision made to re- catheterize. Vessels were patent. Pt hypoxic, decision made to be admitted to ICU for respiratory support and diuresis. Per pt's daughter who is at bedside, had an episode of syncope and fall while at home earlier this month, and was hospitalized here for several days. Per records, pt was here in late September for SVT, was cardioverted and started on Eliquis. Follows with [facility]. Upon arrival to ICU pt was dyspneic. At this time, pt endorses feeling improvement in her breathing at this time with BiPaP in place. Does c/o dry mouth and feeling somewhat nauseous to her stomach, although denies vomiting. Denies chest pain. Reports her leg swelling at this point is at her baseline. Past Medical/Surgical History PAST MEDICAL HISTORY: SVT. AFib with RVR, on anticoagulation. Type 2 diabetes complicated by peripheral neuropathy and prior foot ulcer. Hypertension. GERD. Polymyalgia rheumatica. PAST SURGICAL HISTORY: appendectomy carpal tunnel syndrome cholecystitis rotator cuff surgery total hip arthroplasty total knee arthroplasty. Family History FH: CAD (coronary artery disease) MOTHER Hypertension MOTHER Social History Smoking Status: Former Smoker Alcohol Use: occasionally Marital Status: Housing Status: lives alone Occupation Status: retired Allergies Coded Allergies: Cetirizine & Related (Verified Allergy, Intermediate, ANAPHYLAXIS, 10/13/17 ) Hallucinations Hydroxyzine (Verified Allergy, Unknown, 10/13/17) Home Medications Scheduled Apixaban (Eliquis), 5 MG PO BID Aspirin (Aspirin Ec), 81 MG PO DAILY Atorvastatin (Lipitor), 10 MG PO DAILY Calcium Carbonate-Vitamin D W/ (Caltrate 600 Plus), 2 TAB PO DAILY Coenzyme Q10 (Ubidecarenone) (Coq10), 1 TAB PO DAILY Dulaglutide (Trulicity), 1.5 MG INJ WK Glipizide (Glucotrol), 10 MG PO BID Magnesium Oxide (Mag-Ox), 400 MG PO BID Metformin Hcl (Glucophage), 500 MG PO TID Metoprolol Succinate (Metoprolol Succinate ER), 100 MG PO QAM Multivitamin (Multivitamin), 1 TAB PO DAILY Oxybutynin Chloride (Ditropan), 5 MG PO BID Polyethylene Glycol-Propylene (Systane), 1 DROPS OPB Q2H Venlafaxine Hcl (Venlafaxine Hcl Er), 1 TAB PO DAILY Miscellaneous Medications Cinnamon (Cinnamon), 500 MG PO Current Inpatient Medications Current Inpatient Medications Medications (Trade) Dose Ordered Sig/Tasha Route Start Time Stop Time Status Last Admin Dose Admin Miscellaneous (Iv Fluids Completed) 1 ea PRN PRN N/A 11/10/17 16:00 11/10/18 15:59 Nitroglycerin (Nitrostat Tab) 0.4 mg UD PRN SL 11/10/17 16:15 12/10/17 16:14 11/11/17 07:05 0.4 MG Ondansetron HCl (Zofran Inj) 4 mg Q6H PRN IV 11/10/17 16:15 12/10/17 16:14 Clopidogrel Bisulfate (plAVix TAB) 75 mg QAM PO 11/11/17 09:00 12/11/17 08:59 Atorvastatin Calcium (Lipitor Tab) 80 mg QAM PO 11/11/17 09:00 12/11/17 08:59 Acetaminophen (Tylenol Tab) 650 mg Q4H PRN PO 11/10/17 16:15 12/10/17 16:14 11/10/17 19:12 650 MG Aspirin (Ecotrin Tab) 81 mg DAILY PO 11/11/17 09:00 12/11/17 08:59 Calcium/Vitamin D (Caltrate Plus Tab) 2 tab DAILY PO 11/11/17 09:00 12/11/17 08:59 Magnesium Oxide (Mag-Ox Tab) 400 mg BID PO 11/10/17 21:00 12/10/17 20:59 11/10/17 20:52 400 MG Metoprolol Succinate (Toprol Xl Tab) 100 mg QAM PO 11/11/17 09:00 12/11/17 08:59 11/11/17 07:07 100 MG Multivitamins (Multivitamin Tab) 1 tab DAILY PO 11/11/17 09:00 12/11/17 08:59 Oxybutynin Chloride (Ditropan Tab) 5 mg BID PO 11/10/17 21:00 12/10/17 20:59 11/10/17 20:52 5 MG Venlafaxine HCl (effeXOR EXTENDED REL CAP) 75 mg DAILY PO 11/11/17 09:00 12/11/17 08:59 Apixaban (Eliquis Tab) 5 mg BID PO 11/11/17 09:00 12/11/17 08:59 Insulin Aspart (novoLOG ASPART) SLIDING SCALE If C... ACHS SC 11/10/17 21:00 12/10/17 20:59 11/10/17 20:55 4 UNITS Glucose (Glucose 40% Gel) 15-30 GRAMS 15 GRAMS... UD PRN PO 11/10/17 17:15 12/10/17 17:14 Glucose (Glucose Chew Tab) 4-8 Tablets 4 Tabl... UD PRN PO 11/10/17 17:15 12/10/17 17:14 Dextrose (Dextrose 50% 50ML Syringe) 25-50ML OF 50% DW IV FOR... UD PRN IV 11/10/17 17:15 12/10/17 17:14 Glucagon (Glucagon Inj) 1 mg UD PRN SQ 11/10/17 17:15 12/10/17 17:14 Lisinopril (Zestril Tab) 10 mg QAM PO 11/12/17 09:00 12/11/17 08:59 Review of Systems ROS See HPI for pertinent positives and negatives. Physical Exam Date Time Temp Pulse Resp B/P (MAP) Pulse Ox O2 Delivery O2 Flow Rate FiO2 11/11/17 10:28 98 99 40 11/11/17 09:20 108 28 125/80 (95) 99 Oxymask 10 11/11/17 07:21 37.8 137 26 141/81 (101) 95 Oxymask 8.0 11/11/17 04:00 Oxymask 5.0 11/11/17 03:23 37.1 107 24 121/78 (92) 96 Oxymask 8.0 11/10/17 23:59 Oxymask 2.0 11/10/17 23:50 37.1 93 22 145/78 (100) 96 Nasal Cannula 2.0 11/10/17 22:04 92 20 150/89 (109) 92 Nasal Cannula 2.0 11/10/17 21:04 98 20 139/80 (99) 97 Nasal Cannula 2.0 11/10/17 20:04 37.3 92 20 134/79 (97) 97 Nasal Cannula 2.0 11/10/17 20:00 37.3 92 20 134/79 (97) 97 Nasal Cannula 2.0 11/10/17 20:00 97 Nasal Cannula 2.0 11/10/17 19:04 88 18 126/80 (95) 100 Nasal Cannula 2.0 11/10/17 18:13 36.3 85 20 105/67 93 Nasal Cannula 2.0 11/10/17 18:04 83 18 128/76 (93) 99 Nasal Cannula 2.0 11/10/17 17:34 83 18 118/82 (94) 100 Nasal Cannula 2.0 11/10/17 17:04 83 18 123/80 (94) 95 Nasal Cannula 2.0 11/10/17 16:49 82 18 109/57 (74) 100 Nasal Cannula 2.0 11/10/17 16:34 80 18 113/74 (87) 95 Nasal Cannula 2.0 11/10/17 16:19 36.3 85 18 105/67 (80) 93 Nasal Cannula 2.0 11/10/17 16:11 95 18 128/74 (92) 94 Mask 11/10/17 15:56 94 18 138/80 (99) 96 Mask 11/10/17 13:58 97 28 136/90 100 Nasal Cannula 2.0 11/10/17 13:52 94 Nasal Cannula 2.0 11/10/17 13:52 37.3 102 24 140/79 91 Room Air 11/10/17 13:51 94 Nasal Cannula 3.0 11/10/17 13:51 104 11/10/17 13:51 94 Nasal Cannula 3.0 GENERAL: Awake, alert, tired-appearing, in no distress. BiPaP mask in place. Obese habitus. HENT: Normocephalic, atraumatic. EYES: Normal conjunctiva. Sclera non-icteric. NECK: Supple. No nuchal rigidity. FROM. RESPIRATORY: Somewhat coarse breath sounds bilaterally. CARDIAC: Regular rate, normal rhythm, 97 bpm. Extremities warm and well perfused. Pulses equal. ABDOMEN: Soft, non-distended. No tenderness to palpation. No rebound or guarding. No masses. LOWER EXTREMITIES: Calves are equal size bilaterally. 2+ edema. Some discoloration evident of venous stasis. ACCESS: LT arm PIV x [address], RT arm PIV x [address] NEURO: Normal sensorium. No sensory or motor deficits noted. SKIN: No rash or jaundice noted. Laboratory Results Last 24 Hours Test 11/10/17 13:45 11/10/17 13:51 11/10/17 13:52 11/10/17 14:11 White Blood Count 12.89 K/uL Red Blood Count 4.42 M/uL Hemoglobin 12.2 g/dL Hematocrit 38.2 % Mean Corpuscular Volume 86.4 fL Mean Corpuscular Hemoglobin 27.6 pg Mean Corpuscular Hemoglobin Concent 31.9 g/dl Platelet Count 274 K/uL Mean Platelet Volume 9.0 fL Neutrophils (%) (Auto) 88.4 % Lymphocytes (%) (Auto) 5.6 % Monocytes (%) (Auto) 4.3 % Eosinophils (%) (Auto) 1.3 % Basophils (%) (Auto) 0.2 % Neutrophils # (Auto) 11.39 K/uL Lymphocytes # (Auto) 0.72 K/uL Monocytes # (Auto) 0.55 K/uL Eosinophils # (Auto) 0.17 K/uL Basophils # (Auto) 0.03 K/uL RDW Standard Deviation 42.4 fL RDW Coefficient of Variation 13.4 % Immature Granulocyte % (Auto) 0.2 % Immature Granulocyte # (Auto) 0.03 K/uL Sodium Level 137 mmol/L Potassium Level 4.4 mmol/L Chloride Level 101 mmol/L Carbon Dioxide Level 30 mmol/L Anion Gap 5.0 mmol/L 18.0 mmol/L Blood Urea Nitrogen 14 mg/dl Creatinine 0.80 mg/dl Est Creatinine Clear Calc Drug Dose 86.3 ml/min Estimated GFR () 84.8 Estimated GFR (Non- 73.1 BUN/Creatinine Ratio 17.9 Random Glucose 202 mg/dl Calcium Level 8.8 mg/dl Total Bilirubin 0.4 mg/dl Direct Bilirubin 0.1 mg/dl Aspartate Amino Transf (AST/SGOT) 21 U/L Alanine Aminotransferase (ALT/SGPT) 26 U/L Alkaline Phosphatase 97 U/L Total Protein 7.5 gm/dl Albumin 3.0 gm/dl Lipase 148 U/L Bedside Troponin I 0.160 ng/ml Bedside Lactic Acid Venous 2.42 mmol/L Bedside Hemoglobin 13.3 g/dl Bedside Hematocrit 39 % Bedside Sodium 138 mEq/L Bedside Potassium 4.3 mEq/L Bedside Chloride 98 mEq/L Bedside Total CO2 27 mEq/l Bedside Blood Urea Nitrogen 15 mg/dl Bedside Creatinine 0.6 mg/dl Bedside Glucose (other) 210 mg/dl Bedside Ionized Calcium (Mary) 1.17 mmol/l Test 11/10/17 15:07 11/10/17 15:34 11/10/17 17:38 11/10/17 19:58 Kaolin Activated Coagulation Time 257 SECONDS 257 SECONDS Lactic Acid Level 2.2 mmol/L Troponin I 1.860 ng/ml Bedside Glucose 226 mg/dl Test 11/10/17 21:45 11/10/17 22:55 11/11/17 05:16 11/11/17 07:04 Urine Color YELLOW Urine Appearance CLOUDY Urine pH 5.0 Urine Specific [place] > 1.045 Urine Protein 1+ Urine Glucose (UA) 2+ Urine Ketones NEG Urine Occult Blood 3+ Urine Nitrite NEG Urine Bilirubin NEG Urine Urobilinogen NEG Urine Leukocyte Esterase NEG Urine WBC (Auto) 1-5 /hpf Urine RBC (Auto) >30 /hpf Urine Hyaline Casts (Auto) 1-5 /lpf Urine Epithelial Cells (Auto) 5-10 /lpf Urine Bacteria (Auto) NEG Urine Yeast (Auto) BUDDING Lactic Acid Level 1.6 mmol/L Troponin I 2.390 ng/ml 3.780 ng/ml White Blood Count 10.63 K/uL Red Blood Count 4.57 M/uL Hemoglobin 12.3 g/dL Hematocrit 39.4 % Mean Corpuscular Volume 86.2 fL Mean Corpuscular Hemoglobin 26.9 pg Mean Corpuscular Hemoglobin Concent 31.2 g/dl Platelet Count 268 K/uL Mean Platelet Volume 9.7 fL Neutrophils (%) (Auto) 85.9 % Lymphocytes (%) (Auto) 9.4 % Monocytes (%) (Auto) 4.0 % Eosinophils (%) (Auto) 0.1 % Basophils (%) (Auto) 0.2 % Neutrophils # (Auto) 9.14 K/uL Lymphocytes # (Auto) 1.00 K/uL Monocytes # (Auto) 0.42 K/uL Eosinophils # (Auto) 0.01 K/uL Basophils # (Auto) 0.02 K/uL RDW Standard Deviation 42.6 fL RDW Coefficient of Variation 13.5 % Immature Granulocyte % (Auto) 0.4 % Immature Granulocyte # (Auto) 0.04 K/uL Sodium Level 131 mmol/L Potassium Level 4.6 mmol/L Chloride Level 99 mmol/L Carbon Dioxide Level 23 mmol/L Anion Gap 9.0 mmol/L Blood Urea Nitrogen 12 mg/dl Creatinine 0.70 mg/dl Est Creatinine Clear Calc Drug Dose 97.1 ml/min Estimated GFR () 99.6 Estimated GFR (Non- 86.0 BUN/Creatinine Ratio 16.8 Random Glucose 253 mg/dl Calcium Level 8.6 mg/dl Bedside Glucose 317 mg/dl Test 11/11/17 10:15 Blood Gas Sample Site L Radial Bedside Blood Gas pH (LAB) 7.42 Bedside Blood Gas pCO2 (LAB) 39 mmHg Bedside Blood Gas pO2 (LAB) 134 mmHg Bedside Blood Gas HCO3 (LAB) 25 meq/L Bedside Blood Gas Total CO2 27 mEq/l Bedside Blood Gas Base Excess (LAB) 1.0 meq/L Bedside Blood Gas O2 Saturation 99.0 % Bro Test Pass Oxygen Delivery Device Cannula Diagnostic Results Procedures performed: Cardiac catheterization 11/10/17 Cardiac catheterization 11/11/17 Assessment & Plan (1) STEMI (ST elevation myocardial infarction) (2) Osteoarthritis (3) DM type 2 (diabetes mellitus, type 2) (4) Atrial fibrillation (5) Dyslipidemia (6) Hypertension Reason Critically Ill: 72-year-old female with a significant past medical history of SVT, here for acute hypoxic respiratory failure in the setting of congestive heart failure. Neuro - [facility] ICU: NEGATIVE No concerns at this time. Cardiac - ECHO report shows severe wall motion abnormalities of the anterior, anterior septal, lateral and apical myocardium consistent with an infarct of the LAD distribution. Ejection fraction is around 20%. Repeat catheterization found vessels patent. CARMEN confirmed pleural edema and effusion. Not enough to tap. BiPaP on, tolerating. I/O: almost -1L so far. Lasix 40 BID. 1200 mL fluid restriction. Respiratory - 98 on BiPaP 40%. Last ABG 11/11 7.42/39/134/25 GI - AHA and ADA T2 diet ordered. RENAL/LYTES - No significant electrolyte derangement. Replace lytes as needed. - Whitaker in place. No concerns at this time. ENDO - BSG in high 200s-317. Added 20 units Lantus ONE now. And 10 units BID - tolerated 10 u BID during last hospitalization. Follow. ISS HEME - On Eliquis 5mg BID PO, and plavix 75mg QAM. Stable H&H. ID - No concerns for infection at this point. LINES/IV ACCESS - PIVs intact. DVT PROPHYLAXIS - Eliquis as above. Thank you for allowing us to be part of this patient's care. Please refer to Dr. Meng's documentation for any further recommendations. Resident Physician Supervision Note: Dr. Ashley Dow was resident physician during care of patient. I separately evaluated patient and did history and exam. I discussed the case with the resident and generally agree with the findings and plan. Patient with volume overload secondary to acute systolic congestive heart failure. Completed limited thoracic ultrasound, type B profile bilaterally will utilize CPAP 10, diuretics cautiously add beta iman when able. I have personally spent 40 minutes of critical care time in the direct management of this patient. This is a life/limb threatening event. This includes time spent evaluating patient, direct bedside care, chart review, placing orders, interpretation of diagnostic studies, discussion with consultants, patient, and/or family members regarding treatment decisions, as well as other required patient management activities. This time is exclusive of all separately billable procedures, and teaching time and separate from and in addition to any other critical care service time. Documented By: Domo Meng DO Resident Tracking Resident Involvement: Resident Care Provided Care Provided: Adult Hospital Medicine Problem Qualifiers (1) STEMI (ST elevation myocardial infarction): Involved coronary artery: unspecified coronary artery Qualified Codes: I21.3 - ST elevation (STEMI) myocardial infarction of unspecified site
[2017-11-11] MEDS ORDERED: INSULIN GLARGINE SOLOSTAR 100 UNITS/ML 3 ML PEN SC ONE (14:15)
[2017-11-11] MEDS: CALCIUM 600MG + VIT D 400 IU TAB PO SCH (14:27)
[2017-11-11] MEDS: MAGNESIUM OXIDE 400 MG TAB PO SCH ×2 (14:28→20:49)
[2017-11-11] MEDS: APIXABAN 2.5 MG TAB PO SCH ×2 (14:28→20:49)
[2017-11-11] MEDS: ATORVASTATIN 40 MG TAB PO SCH (14:29)
[2017-11-11] MEDS: ASPIRIN 81 MG ECTAB PO SCH (14:29)
[2017-11-11] MEDS: CLOPIDOGREL BISULFATE 75 MG TAB PO SCH (14:29)
[2017-11-11] MEDS: MULTIVITAMIN TAB PO SCH (14:30)
[2017-11-11] MEDS: OXYBUTYNIN CHLORIDE 5 MG TAB PO SCH ×2 (14:30→20:49)
[2017-11-11] MEDS: VENLAFAXINE HCL XR 75 MG CAPXR PO SCH (14:30)
--- NOTE | 2017-11-11 15:45 | ECHOCARDIOGRAM REPORT ---
*NOTICE TO RECEIVING [employer] This information is strictly Confidential and protected under [place] law. [place] law prohibits you from making any further disclosure of this information unless further disclosure is expressly permitted by the written consent of the person to whom it pertains or is authorized by law. A general authorization for the release of medical or other information is not sufficient for this purpose. Hospital accepts no responsibility if the information is made available to any other person, INCLUDING THE PATIENT. Interpretation Summary * Name: ISIDRO MURPHY Study Date: 11/11/2017 06:53 AM BP: 113/74 mmHg * Patient Location: C.2T\S\S239\S\1 HR: 149 * : 1945 (M/d/y) Gender: Female Height: 65 in * Age: 72 yrs Ethnicity: CA Weight: 292 lb * Ordering Physician: Jd Castellanos * Referring Physician: Self, Referred * Performed By: Imelda Gomes RDCS * * Reason For Study: AMI * BSA: 2.3 m2 * -- Conclusions -- * The left ventricle is normal in size. * There are severe wall motion abnormalities of the anterior, anterior septal, lateral and apical myocardium consistent with an infarct of the LAD distribution. * The estimated left ventricular ejection fraction is around 20%. * The left atrium is severely dilated. * There is moderate mitral regurgitation. Procedure Details * A complete two-dimensional transthoracic echocardiogram was performed (2D, M-mode, Doppler and color flow Doppler). * The study was technically difficult. * The study was technically difficult, but visualization was adequate with the administration of Definity ultrasound contrast. * There were technical limitations due to patient'spoor positioning * A contrast injection of Definity was performed to improve assessment of LV function. * Contrast was injected into an intravenous site in the left arm. * One vial of Definity ultrasound contrast was diluted in normal saline to a total volume of 10 ml. A total of '3' ml of solution was administered during imaging. * Lot # [id number] of Definity utilized for procedure. * Expiration date 1Apr19. * The attending nurse who injected the contrast agent was LONA Capellan. Left Ventricle * The left ventricle is normal in size. * Ejection Fraction = 20-25%. * There is anterior wall akinesis. * There is apical akinesis. * There is severe lateral wall hypokinesis. * There is severe septal hypokinesis. Right Ventricle * The right ventricle is normal size. * The right ventricular systolic function is normal. Atria * The left atrium is severely dilated. * Right atrial size is normal. Mitral Valve * The mitral valve anatomy is normal. * There is moderate mitral regurgitation. Tricuspid Valve * The tricuspid valve anatomy is normal. * Significant tricuspid regurgitation is absent. Aortic Valve * The aortic valve is tricuspid. The leaflet thickness if normal. There is no aortic stenosis, and no significant insufficiency. * No hemodynamically significant valvular aortic stenosis. * There is no significant aortic regurgitation. Pulmonic Valve * The pulmonic valve is not well visualized. Great Vessels * The aortic root and proximal ascending aorta are normal sized. Pericardium/Pleural * There is no pericardial effusion. MMode 2D Measurements and Calculations Ao root diam 2.7 cm Ao root area 5.9 cm\S\2 ACS 1.6 cm LVAd ap4 34.0 cm\S\2 LVLd ap4 8.0 cm EDV(MOD-sp4) 116.7 ml EDV(sp4-el) 122.9 ml LVAs ap4 29.5 cm\S\2 LVLs ap4 7.4 cm ESV(MOD-sp4) 95.5 ml ESV(sp4-el) 99.7 ml EF(MOD-sp4) 18.1 % EF(sp4-el) 18.9 % LVAd ap2 43.2 cm\S\2 LVLd ap2 8.6 cm EDV(MOD-sp2) 177.4 ml EDV(sp2-el) 184.6 ml LVAs ap2 36.3 cm\S\2 LVLs ap2 8.1 cm ESV(MOD-sp2) 134.1 ml ESV(sp2-el) 138.3 ml EF(MOD-sp2) 24.4 % EF(sp2-el) 25.1 % LVLd %diff 7.2 % EDV(MOD-bp) 149.5 ml LVLs %diff 8.4 % ESV(MOD-bp) 117.9 ml EF(MOD-bp) 21.1 % SV(MOD-sp4) 21.2 ml SI(MOD-sp4) 9.1 ml/m\S\2 SV(MOD-sp2) 43.3 ml SI(MOD-sp2) 18.6 ml/m\S\2 SV(MOD-bp) 31.6 ml SI(MOD-bp) 13.6 ml/m\S\2 SV(sp4-el) 23.2 ml SI(sp4-el) 10.0 ml/m\S\2 SV(sp2-el) 46.3 ml SI(sp2-el) 19.9 ml/m\S\2 Doppler Measurements and Calculations MV E max socrates 127.1 cm/sec MV dec time 0.12 sec Ao V2 max 112.2 cm/sec Ao max PG 5.0 mmHg Ao max PG (full) 2.9 mmHg LV V1 max PG 2.1 mmHg LV V1 max 72.3 cm/sec PA V2 max 104.2 cm/sec PA max PG 4.3 mmHg TR max socrates 267.8 cm/sec
[2017-11-11] MEDS: FUROSEMIDE INJ 40 MG in SYRINGE 0 ML IV SCH (20:49)
[2017-11-11] MEDS: INSULIN GLARGINE SOLOSTAR 100 UNITS/ML 3 ML PEN SC SCH (20:54)
[2017-11-11] MEDS ORDERED: POTASSIUM CHLORIDE 20 MEQ TABCR PO SCH (21:00)
[2017-11-12] VITALS (32 sets, daily range): BP systolic 70–128; BP diastolic 45–90; PULSE 69–142; TEMP 36.4–37.3; O2SAT 92–100
[2017-11-12 05:44] LABS: BASO % 0.3 %; BASO ABS # 0.03 K/uL (0-0.2); EOS % 1.3 %; EOS ABS # 0.13 K/uL (0-0.5); HEMATOCRIT 35.9 % (37-47); HEMOGLOBIN 11.3 g/dL (12.0-16.0); IG# 0.02 K/uL (0.00-0.02); LYMPH % 20.7 %; LYMPH ABS # 2.12 K/uL (1.2-3.4); MEAN CELL VOLUME 86.1 fL (80-100); MEAN CORPUSCULAR HEMOGLOBIN 27.1 pg (25-34); MEAN CORPUSCULAR HGB CONC 31.5 g/dl (32-36); MEAN PLATELET VOLUME 9.3 fL (7.4-10.4); MONO % 12.1 %; MONO ABS # 1.24 K/uL (0.11-0.59); NEUT % 65.4 %; NEUT ABS # 6.72 K/uL (1.4-6.5); PLATELET COUNT 244 K/uL (130-400); RED CELL DISTRIBUTION WIDTH CV 13.8 % (11.5-14.5); RED CELL DISTRIBUTION WIDTH SD 43.2 fL (36.4-46.3); WHITE BLOOD COUNT 10.26 K/uL (4.8-10.8)
[2017-11-12 06:13] LABS: CALCIUM 8.2 mg/dl (8.5-10.1); CREATININE 0.9 mg/dl (0.60-1.20); PHOSPHORUS 2.6 mg/dl (2.5-4.9); POTASSIUM 4.6 mmol/L (3.5-5.1)
[2017-11-12] MEDS: MAGNESIUM SULFATE 1GM / D5W 1 GM in PREMIXED IN D5W 100 ML IV SCH ×2 (06:53→08:30)
[2017-11-12] MEDS: FUROSEMIDE INJ 40 MG in SYRINGE 0 ML IV SCH ×2 (08:03→16:49)
[2017-11-12] MEDS ORDERED: ACETAZOLAMIDE IV INFUSION 500 MG in DEXTROSE 5% 100ML 100 ML IV ONE (08:30)
[2017-11-12] MEDS: INSULIN ASPART 100 UNITS/ML 3 ML PEN SC SCH ×4 (08:34→20:53)
[2017-11-12] MEDS: ATORVASTATIN 40 MG TAB PO SCH (08:36)
[2017-11-12] MEDS: METOPROLOL SUCC 50MG EXT REL TAB PO SCH (08:36)
--- NOTE | 2017-11-12 08:36 | Cardiology Follow-Up ---
Subjective Subjective Date of Service: Nov 12, 2017. Pt evaluation today including: conversation w/ patient, physical exam, chart review, lab review, review of studies, review of inpatient medication list Additional Details: The patient has been weaned from BiPAP. She was effectively diuresed overnight. She has no complaints this morning and is feeling better. She has maintained sinus rhythm. I reviewed the results of the echocardiogram as well as her cardiac catheterization. She has evidence of a recent large LAD distribution infarct. Whether this is due to stunning myocardium or completed infarct is unknown. She currently has an ischemic cardiomyopathy with severe LV dysfunction and an estimated left ventricular ejection fraction of around 20% . Hopefully with treatment will be some improvement in her overall cardiac function. Problem List Medical Problems: (1) Elevated WBC count Status: Acute (2) Hyperglycemia Status: Acute (3) Hyperkalemia Status: Acute (4) STEMI (ST elevation myocardial infarction) Status: Acute (5) SVT (supraventricular tachycardia) Status: Acute Review of Systems Respiratory: + dyspnea on exertion Additional ROS Details: General: The patient denies weight change, night sweats, fever, chills. Head: The patient denies headache and prior head trauma. Cardiovascular: The patient denies chest pain or chest discomfort, dyspnea on exertion, palpitations, PND, orthopnea, edema, spontaneous shortness of breath, syncope and near syncope. Pulmonary: The patient denies cough, wheeze, pleurisy, hemoptysis, sputum, and excessive snoring. Gastrointestinal: The patient denies nausea, vomiting, diarrhea, constipation, bloating, hematemesis, hematochezia, and abdominal pain. Skin: The patient denies diaphoresis and rash. Musculoskeletal: The patient denies joint pain, joint swelling, myalgia, back pain, neck pain and prior injuries. Neurological: The patient denies prior stroke and seizures Objective Vital Signs Last Vital Signs Documentation Date Time Temp Pulse Resp B/P (MAP) Pulse Ox O2 Delivery O2 Flow Rate FiO2 11/12/17 06:01 74 28 114/49 (70) 99 BiPAP 40 11/12/17 04:01 36.4 11/12/17 04:00 5.0 Physical Exam: General Appearance: no apparent distress ENT: normal ENT inspection Neck: supple, no adenopathy, thyroid normal, no JVD Respiratory/Chest: chest non-tender, lungs clear, normal breath sounds Cardiovascular: regular rate, rhythm, no gallop, no JVD, no murmur Abdomen: normal bowel sounds, non tender, no organomegaly Extremities: normal inspection, no pedal edema, no calf tenderness Neurologic/Psychiatric: no motor/sensory deficits, alert, normal mood/affect, oriented x 3 Skin: normal color, warm/dry, no rash Lymphatic: no adenopathy Assessment and Plan Impression: 1. Recent anterior wall infarct 2. LAD drug-eluting stent 3. Ischemic cardiomyopathy 4. Diabetes Recommendations: The patient has been on chronic Eliquis for long-term anticoagulation. She received a drug-eluting stent within the LAD. Recommendations are to continue dual antiplatelet therapy along with Eliquis for about a month. Thereafter the patient will remain on Plavix and Eliquis only. She should continue to receive guideline directed medical therapy for her ischemic heart disease. Consideration before discharge should be given for a LifeVest. Medications: Current Inpatient Medications Medications (Trade) Dose Ordered Sig/Tasha Route Start Time Stop Time Status Last Admin Dose Admin Miscellaneous (Iv Fluids Completed) 1 ea PRN PRN N/A 11/10/17 16:00 11/10/18 15:59 Nitroglycerin (Nitrostat Tab) 0.4 mg UD PRN SL 11/10/17 16:15 12/10/17 16:14 11/11/17 07:05 0.4 MG Ondansetron HCl (Zofran Inj) 4 mg Q6H PRN IV 11/10/17 16:15 12/10/17 16:14 Clopidogrel Bisulfate (plAVix TAB) 75 mg QAM PO 11/11/17 09:00 12/11/17 08:59 11/11/17 14:29 75 MG Atorvastatin Calcium (Lipitor Tab) 80 mg QAM PO 11/11/17 09:00 12/11/17 08:59 11/11/17 14:29 80 MG Acetaminophen (Tylenol Tab) 650 mg Q4H PRN PO 11/10/17 16:15 12/10/17 16:14 11/10/17 19:12 650 MG Aspirin (Ecotrin Tab) 81 mg DAILY PO 11/11/17 09:00 12/11/17 08:59 11/11/17 14:29 81 MG Calcium/Vitamin D (Caltrate Plus Tab) 2 tab DAILY PO 11/11/17 09:00 5/12/18 08:59 11/11/17 14:27 2 TAB Magnesium Oxide (Mag-Ox Tab) 400 mg BID PO 11/10/17 21:00 12/10/17 20:59 11/11/17 20:49 400 MG Metoprolol Succinate (Toprol Xl Tab) 100 mg QAM PO 11/11/17 09:00 12/11/17 08:59 11/11/17 07:07 100 MG Multivitamins (Multivitamin Tab) 1 tab DAILY PO 11/11/17 09:00 12/11/17 08:59 11/11/17 14:30 1 TAB Oxybutynin Chloride (Ditropan Tab) 5 mg BID PO 11/10/17 21:00 12/10/17 20:59 11/11/17 20:49 5 MG Venlafaxine HCl (effeXOR EXTENDED REL CAP) 75 mg DAILY PO 11/11/17 09:00 12/11/17 08:59 11/11/17 14:30 75 MG Apixaban (Eliquis Tab) 5 mg BID PO 11/11/17 09:00 12/11/17 08:59 11/11/17 20:49 5 MG Insulin Aspart (novoLOG ASPART) SLIDING SCALE If C... ACHS SC 11/10/17 21:00 12/10/17 20:59 11/12/17 08:34 6 UNITS Glucose (Glucose 40% Gel) 15-30 GRAMS 15 GRAMS... UD PRN PO 11/10/17 17:15 12/10/17 17:14 Glucose (Glucose Chew Tab) 4-8 Tablets 4 Tabl... UD PRN PO 11/10/17 17:15 12/10/17 17:14 Dextrose (Dextrose 50% 50ML Syringe) 25-50ML OF 50% DW IV FOR... UD PRN IV 11/10/17 17:15 12/10/17 17:14 Glucagon (Glucagon Inj) 1 mg UD PRN SQ 11/10/17 17:15 12/10/17 17:14 Lisinopril (Zestril Tab) 10 mg QAM PO 11/12/17 09:00 12/11/17 08:59 Insulin Glargine (Lantus Solostar Pen) 10 units BID SC 11/11/17 21:00 12/11/17 20:59 11/11/17 20:54 10 UNITS Furosemide 40 mg/ Syringe 4 ml @ 4 mls/min BID17 IV 11/11/17 21:00 12/11/17 20:59 11/12/17 08:03 4 MLS/MIN Potassium Chloride (Klor-Con Tab) 20 meq BID PO 11/11/17 21:00 12/11/17 20:59 11/11/17 20:49 20 MEQ Magnesium Sulfate 1 gm/Prmx 100 ml @ 100 mls/hr Q1H IV 11/12/17 06:45 11/12/17 08:44 11/12/17 08:30 100 MLS/HR Famotidine (Pepcid Tab) 20 mg BID PO 11/12/17 09:00 12/12/17 08:59 Acetazolamide Sodium 500 mg/ Dextrose 105 ml @ 100 mls/hr NOW ONCE IV 11/12/17 08:30 11/12/17 09:32 Potassium Chloride (Klor-Con Tab) 20 meq BID17 PO 11/12/17 09:00 12/12/17 08:59 Lab Results: Last 24 Hours Test 11/11/17 10:15 11/11/17 12:10 11/11/17 16:02 11/11/17 19:43 Blood Gas Sample Site L Radial Bedside Blood Gas pH (LAB) 7.42 Bedside Blood Gas pCO2 (LAB) 39 mmHg Bedside Blood Gas pO2 (LAB) 134 mmHg Bedside Blood Gas HCO3 (LAB) 25 meq/L Bedside Blood Gas Total CO2 27 mEq/l Bedside Blood Gas Base Excess (LAB) 1.0 meq/L Bedside Blood Gas O2 Saturation 99.0 % Bro Test Pass Oxygen Delivery Device Cannula Bedside Glucose 266 mg/dl 242 mg/dl 231 mg/dl Test 11/11/17 20:47 11/12/17 05:14 11/12/17 06:33 Bedside Glucose 226 mg/dl 175 mg/dl White Blood Count 10.26 K/uL Red Blood Count 4.17 M/uL Hemoglobin 11.3 g/dL Hematocrit 35.9 % Mean Corpuscular Volume 86.1 fL Mean Corpuscular Hemoglobin 27.1 pg Mean Corpuscular Hemoglobin Concent 31.5 g/dl Platelet Count 244 K/uL Mean Platelet Volume 9.3 fL Neutrophils (%) (Auto) 65.4 % Lymphocytes (%) (Auto) 20.7 % Monocytes (%) (Auto) 12.1 % Eosinophils (%) (Auto) 1.3 % Basophils (%) (Auto) 0.3 % Neutrophils # (Auto) 6.72 K/uL Lymphocytes # (Auto) 2.12 K/uL Monocytes # (Auto) 1.24 K/uL Eosinophils # (Auto) 0.13 K/uL Basophils # (Auto) 0.03 K/uL RDW Standard Deviation 43.2 fL RDW Coefficient of Variation 13.8 % Immature Granulocyte % (Auto) 0.2 % Immature Granulocyte # (Auto) 0.02 K/uL Sodium Level 137 mmol/L Potassium Level 4.6 mmol/L Chloride Level 100 mmol/L Carbon Dioxide Level 35 mmol/L Anion Gap 2.0 mmol/L Blood Urea Nitrogen 19 mg/dl Creatinine 0.90 mg/dl Est Creatinine Clear Calc Drug Dose 75.4 ml/min Estimated GFR () 73.5 Estimated GFR (Non- 63.4 BUN/Creatinine Ratio 21.0 Random Glucose 166 mg/dl Calcium Level 8.2 mg/dl Phosphorus Level 2.6 mg/dl Magnesium Level 1.6 mg/dl
[2017-11-12] MEDS: CALCIUM 600MG + VIT D 400 IU TAB PO SCH (08:37)
[2017-11-12] MEDS: LISINOPRIL 5 MG TAB PO SCH (08:37)
[2017-11-12] MEDS: MAGNESIUM OXIDE 400 MG TAB PO SCH ×2 (08:37→20:42)
[2017-11-12] MEDS: ASPIRIN 81 MG ECTAB PO SCH (08:38)
[2017-11-12] MEDS: APIXABAN 2.5 MG TAB PO SCH ×2 (08:38→20:43)
[2017-11-12] MEDS: MULTIVITAMIN TAB PO SCH (08:38)
[2017-11-12] MEDS: FAMOTIDINE 20 MG TAB PO SCH ×2 (08:39→20:41)
[2017-11-12] MEDS: POTASSIUM CHLORIDE 20 MEQ TABCR PO SCH ×2 (09:05→16:50)
[2017-11-12] MEDS: INSULIN GLARGINE SOLOSTAR 100 UNITS/ML 3 ML PEN SC SCH ×2 (09:29→20:54)
[2017-11-12] MEDS: VENLAFAXINE HCL XR 75 MG CAPXR PO SCH (09:33)
[2017-11-12] MEDS: OXYBUTYNIN CHLORIDE 5 MG TAB PO SCH ×2 (09:33→20:44)
[2017-11-12] MEDS: CLOPIDOGREL BISULFATE 75 MG TAB PO SCH (09:33)
--- NOTE | 2017-11-12 09:33 | Critical Care Progress Note ---
Critical Care Progress Note Date of Service Nov 12, 2017. ICU Day ICU Day Number: [address] Meng Subjective Pt reports feeling much better this morning, slept well overnight with CPAP running at 10 and 30%, no acute events overnight. Hemodynamically stable. This morning denies chest pain or difficulty breathing. Nausea has resolved. Diuresing adequately via man. Objective GENERAL: Awake, alert, in no distress. Nasal cannula in place. Obese habitus. HENT: Normocephalic, atraumatic. EYES: Normal conjunctiva. Sclera non-icteric. NECK: Supple. No nuchal rigidity. FROM. RESPIRATORY: Somewhat coarse breath sounds bilaterally. CARDIAC: Regular rate, normal rhythm, 97 bpm. Extremities warm and well perfused. Pulses equal. ABDOMEN: Soft, non-distended. No tenderness to palpation. No rebound or guarding. No masses. LOWER EXTREMITIES: Calves are equal size bilaterally. 2+ edema. Some discoloration evident of venous stasis. ACCESS: LT arm PIV x [address], RT arm PIV x [address] NEURO: Normal sensorium. No sensory or motor deficits noted. SKIN: Some discoloration evident of venous stasis. Assessment & Plan (1) STEMI (ST elevation myocardial infarction) (2) Osteoarthritis (3) DM type 2 (diabetes mellitus, type 2) (4) Atrial fibrillation (5) Dyslipidemia (6) Hypertension Reason Critically Ill: 72-year-old female with a significant past medical history of SVT/AFIB, here for acute hypoxic respiratory failure in the setting of congestive heart failure. Neuro - [facility] ICU: NEGATIVE No concerns at this time. Cardiac - Cardiac cath 11/10/17 showed severe single vessel coronary artery disease - 80 -90% calcified diffuse mid LAD stenosis - with successful PCI of mid LAD with single drug-eluting stent (3.0 x 34 Valerio; post-dilated with 3.75 NC). Echocardiogram 11/11/17 report showed severe wall motion abnormalities of the anterior, anterior septal, lateral and apical myocardium consistent with an infarct of the LAD distribution. Showed ejection fraction is around 20%. Repeat catheterization 11/11/17 found vessels sufficiently patent, no further intervention at that time. Limited thoracic ultrasound 11/11/17, showed type B profile bilaterally - confirmed pleural edema and effusion. Not enough to tap. CPAP on, tolerating. I/O: -1.3 L so far. Goal today another output -1.5L. Continue Lasix 40 BID. Adding Diamox 500mg IV x 1 today. 1200 mL fluid restriction. Cardiology consult, appreciate recs. Starting Lisinopril, Lipitor 80, ASA 81mg, Toprol 100mg qam, Continue Plavix and Eliquis. Respiratory - 98 on CPAP 10 and 30%. Wean as tolerated. Last ABG 11/11/17 showed 7.42/39/134/25 GI - AHA and ADA T2 diet ordered. RENAL/LYTES - Giving 20meq K PO BID, 400mg MgOx PO BID. Replace lytes as needed. - Man in place. Adequate output. I/O: -1.3 L so far. Goal today another output -1.5L. No concerns at this time. ENDO - BSG in high 200s-317. Added 20 units Lantus ONE now. And 10 units BID - tolerated 10 u BID during last hospitalization. Follow. ISS HEME - On Eliquis 5mg BID PO, and plavix 75mg QAM, ASA 81mg as above. Stable H&H. ID - No concerns for infection at this point. LINES/IV ACCESS - PIVs intact. DVT PROPHYLAXIS - Eliquis as above. Thank you for allowing us to be part of this patient's care. Please refer to Dr. Meng's documentation for any further recommendations. Resident Physician Supervision Note: Dr. sAhley Dow was resident physician during care of patient. I separately evaluated patient and did history and exam. I discussed the case with the resident and generally agree with the findings and plan. Patient required placement back on noninvasive ventilation early this morning. Reviewed I's and O's and patient is globally negative however will continue to diurese at this point. Reviewed cardiology recommendations, they are starting beta-iman at this time we will continue to monitor. Patient remains critically ill due to acute hypoxic respiratory failure in the setting of acute congestive systolic heart failure. I have personally spent 40 minutes of critical care time in the direct management of this patient. This is a life/limb threatening event. This includes time spent evaluating patient, direct bedside care, chart review, placing orders, interpretation of diagnostic studies, discussion with consultants, patient, and/or family members regarding treatment decisions, as well as other required patient management activities. This time is exclusive of all separately billable procedures, and teaching time and separate from and in addition to any other critical care service time. Documented By: Domo Meng DO Consults & Procedures Consultants: Cardiology - Dr. Moreno, Dr. Castellanos Procedures: Cardiac catheterization 11/10/17 Cardiac catheterization 11/11/17 Echocardiogram 11/11/17 Data Medications: Current Inpatient Medications Medications (Trade) Dose Ordered Sig/Tasha Route Start Time Stop Time Status Last Admin Dose Admin Miscellaneous (Iv Fluids Completed) 1 ea PRN PRN N/A 11/10/17 16:00 11/10/18 15:59 Nitroglycerin (Nitrostat Tab) 0.4 mg UD PRN SL 11/10/17 16:15 12/10/17 16:14 11/11/17 07:05 0.4 MG Ondansetron HCl (Zofran Inj) 4 mg Q6H PRN IV 11/10/17 16:15 12/10/17 16:14 Clopidogrel Bisulfate (plAVix TAB) 75 mg QAM PO 11/11/17 09:00 12/11/17 08:59 11/11/17 14:29 75 MG Atorvastatin Calcium (Lipitor Tab) 80 mg QAM PO 11/11/17 09:00 12/11/17 08:59 11/12/17 08:36 80 MG Acetaminophen (Tylenol Tab) 650 mg Q4H PRN PO 11/10/17 16:15 12/10/17 16:14 11/10/17 19:12 650 MG Aspirin (Ecotrin Tab) 81 mg DAILY PO 11/11/17 09:00 12/11/17 08:59 11/12/17 08:38 81 MG Calcium/Vitamin D (Caltrate Plus Tab) 2 tab DAILY PO 11/11/17 09:00 12/11/17 08:59 11/12/17 08:37 2 TAB Magnesium Oxide (Mag-Ox Tab) 400 mg BID PO 11/10/17 21:00 12/10/17 20:59 11/12/17 08:37 400 MG Metoprolol Succinate (Toprol Xl Tab) 100 mg QAM PO 11/11/17 09:00 12/11/17 08:59 11/12/17 08:36 100 MG Multivitamins (Multivitamin Tab) 1 tab DAILY PO 11/11/17 09:00 12/11/17 08:59 11/12/17 08:38 1 TAB Oxybutynin Chloride (Ditropan Tab) 5 mg BID PO 11/10/17 21:00 12/10/17 20:59 11/11/17 20:49 5 MG Venlafaxine HCl (effeXOR EXTENDED REL CAP) 75 mg DAILY PO 11/11/17 09:00 12/11/17 08:59 11/11/17 14:30 75 MG Apixaban (Eliquis Tab) 5 mg BID PO 11/11/17 09:00 12/11/17 08:59 11/12/17 08:38 5 MG Insulin Aspart (novoLOG ASPART) SLIDING SCALE If C... ACHS SC 11/10/17 21:00 12/10/17 20:59 11/12/17 08:34 6 UNITS Glucose (Glucose 40% Gel) 15-30 GRAMS 15 GRAMS... UD PRN PO 11/10/17 17:15 12/10/17 17:14 Glucose (Glucose Chew Tab) 4-8 Tablets 4 Tabl... UD PRN PO 11/10/17 17:15 12/10/17 17:14 Dextrose (Dextrose 50% 50ML Syringe) 25-50ML OF 50% DW IV FOR... UD PRN IV 11/10/17 17:15 12/10/17 17:14 Glucagon (Glucagon Inj) 1 mg UD PRN SQ 11/10/17 17:15 12/10/17 17:14 Lisinopril (Zestril Tab) 10 mg QAM PO 11/12/17 09:00 12/11/17 08:59 11/12/17 08:37 10 MG Insulin Glargine (Lantus Solostar Pen) 10 units BID SC 11/11/17 21:00 12/11/17 20:59 11/11/17 20:54 10 UNITS Furosemide 40 mg/ Syringe 4 ml @ 4 mls/min BID17 IV 11/11/17 21:00 12/11/17 20:59 11/12/17 08:03 4 MLS/MIN Famotidine (Pepcid Tab) 20 mg BID PO 11/12/17 09:00 12/12/17 08:59 11/12/17 08:39 20 MG Acetazolamide Sodium 500 mg/ Dextrose 105 ml @ 100 mls/hr NOW ONCE IV 11/12/17 08:30 11/12/17 09:32 Potassium Chloride (Klor-Con Tab) 20 meq BID17 PO 11/12/17 09:00 12/12/17 08:59 11/12/17 09:05 20 MEQ Vital Signs: Date Time Temp Pulse Resp B/P (MAP) Pulse Ox O2 Delivery O2 Flow Rate FiO2 11/12/17 08:00 Nasal Cannula 3.0 11/12/17 08:00 37.0 86 23 100/45 (63) 98 Nasal Cannula 3.0 11/12/17 06:01 74 28 114/49 (70) 99 BiPAP 40 11/12/17 05:53 74 100 30 11/12/17 05:31 88 23 92/61 (71) 99 BiPAP 40 11/12/17 05:01 72 28 96/70 (79) 99 BiPAP 40 11/12/17 04:31 82 27 83/58 (66) 100 BiPAP 40 11/12/17 04:01 36.4 73 25 128/53 (78) 100 BiPAP 40 11/12/17 04:00 100 BiPAP 5.0 40 11/12/17 03:31 83 29 97/63 (74) 96 BiPAP 40 11/12/17 03:01 83 24 100/58 (72) 99 BiPAP 40 11/12/17 02:26 82 99 30 11/12/17 02:01 86 25 86/52 (63) 100 11/12/17 01:31 78 27 110/57 (74) 100 11/12/17 01:01 69 27 111/60 (77) 100 11/12/17 00:31 81 29 92/51 (65) 99 11/12/17 00:01 37.0 77 30 83/55 (64) 100 11/11/17 23:59 100 BiPAP 5.0 40 11/11/17 23:31 80 30 84/50 (61) 99 11/11/17 23:01 90 20 100/58 (72) 100 11/11/17 22:31 83 29 86/68 (74) 100 11/11/17 22:14 82 100 30 11/11/17 22:01 84 31 88/60 (69) 100 11/11/17 21:31 86 31 117/55 (75) 98 18 21:05 97 23 90/60 (70) 98 11/11/17 21:02 92 29 52/38 (43) 98 11/11/17 20:31 89 31 105/55 (72) 99 18 20:01 87 32 105/66 (79) 99 18 20:00 100 BiPAP 5.0 40 11/11/17 19:32 94 34 103/30 (54) 97 11/11/17 19:27 37.7 11/11/17 19:01 87 33 104/71 (82) 98 11/11/17 18:59 89 99 40 11/11/17 18:00 91 36 104/63 (77) 99 BiPAP 40 11/11/17 16:00 98 BiPAP 40 11/11/17 15:52 102 98 40 11/11/17 15:31 36.6 99 33 144/61 (88) 100 BiPAP 11/11/17 15:30 95 31 144/61 (88) 100 BiPAP 11/11/17 14:30 107 31 126/80 (95) 92 BiPAP 11/11/17 13:30 100 31 142/78 (99) 99 BiPAP 11/11/17 12:30 96 28 111/87 (95) 99 BiPAP 11/11/17 12:00 100 BiPAP 40 11/11/17 11:30 101 28 141/86 (104) 33 BiPAP 11/11/17 11:00 98 28 128/84 (99) 100 BiPAP 11/11/17 10:30 99 28 122/85 (97) 100 BiPAP 11/11/17 10:28 98 99 40 11/11/17 10:15 104 28 108/92 (97) 98 Oxymask 15.0 11/11/17 10:00 106 28 143/83 (103) 97 Oxymask 15.0 11/11/17 09:45 106 28 138/68 (91) 98 Oxymask 15.0 Laboratory Results: Last 24 Hours Test 11/11/17 10:15 11/11/17 12:10 11/11/17 16:02 11/11/17 19:43 Blood Gas Sample Site L Radial Bedside Blood Gas pH (LAB) 7.42 Bedside Blood Gas pCO2 (LAB) 39 mmHg Bedside Blood Gas pO2 (LAB) 134 mmHg Bedside Blood Gas HCO3 (LAB) 25 meq/L Bedside Blood Gas Total CO2 27 mEq/l Bedside Blood Gas Base Excess (LAB) 1.0 meq/L Bedside Blood Gas O2 Saturation 99.0 % Bro Test Pass Oxygen Delivery Device Cannula Bedside Glucose 266 mg/dl 242 mg/dl 231 mg/dl Test 11/11/17 20:47 11/12/17 05:14 11/12/17 06:33 Bedside Glucose 226 mg/dl 175 mg/dl White Blood Count 10.26 K/uL Red Blood Count 4.17 M/uL Hemoglobin 11.3 g/dL Hematocrit 35.9 % Mean Corpuscular Volume 86.1 fL Mean Corpuscular Hemoglobin 27.1 pg Mean Corpuscular Hemoglobin Concent 31.5 g/dl Platelet Count 244 K/uL Mean Platelet Volume 9.3 fL Neutrophils (%) (Auto) 65.4 % Lymphocytes (%) (Auto) 20.7 % Monocytes (%) (Auto) 12.1 % Eosinophils (%) (Auto) 1.3 % Basophils (%) (Auto) 0.3 % Neutrophils # (Auto) 6.72 K/uL Lymphocytes # (Auto) 2.12 K/uL Monocytes # (Auto) 1.24 K/uL Eosinophils # (Auto) 0.13 K/uL Basophils # (Auto) 0.03 K/uL RDW Standard Deviation 43.2 fL RDW Coefficient of Variation 13.8 % Immature Granulocyte % (Auto) 0.2 % Immature Granulocyte # (Auto) 0.02 K/uL Sodium Level 137 mmol/L Potassium Level 4.6 mmol/L Chloride Level 100 mmol/L Carbon Dioxide Level 35 mmol/L Anion Gap 2.0 mmol/L Blood Urea Nitrogen 19 mg/dl Creatinine 0.90 mg/dl Est Creatinine Clear Calc Drug Dose 75.4 ml/min Estimated GFR () 73.5 Estimated GFR (Non- 63.4 BUN/Creatinine Ratio 21.0 Random Glucose 166 mg/dl Calcium Level 8.2 mg/dl Phosphorus Level 2.6 mg/dl Magnesium Level 1.6 mg/dl Problem Qualifiers (1) STEMI (ST elevation myocardial infarction): Involved coronary artery: unspecified coronary artery Qualified Codes: I21.3 - ST elevation (STEMI) myocardial infarction of unspecified site
[2017-11-12] MEDS ORDERED: AMIODARONE IV BOLUS / DRIP IV STA (15:51)
[2017-11-12] MEDS ORDERED: METOPROLOL TARTRATE 1 MG/ML VIAL ONE (15:59)
[2017-11-12] MEDS ORDERED: AMIODARONE / D5W 100 ML IV ONE (16:00)
[2017-11-12] MEDS ORDERED: 0.2 MICRON FILTER SET 1 EA IV SCH (16:00)
[2017-11-12] MEDS ORDERED: METOPROLOL TARTRATE 1 MG/ML VIAL IV ONE (16:05)
[2017-11-12] MEDS ORDERED: AMIODARONE / D5W 200 ML IV SCH (16:10)
[2017-11-12 16:18] LABS: HEMATOCRIT 36.5 % (37-47); HEMOGLOBIN 11.6 g/dL (12.0-16.0); MEAN CELL VOLUME 86.3 fL (80-100); MEAN CORPUSCULAR HEMOGLOBIN 27.4 pg (25-34); MEAN PLATELET VOLUME 9.5 fL (7.4-10.4); PLATELET COUNT 252 K/uL (130-400); RED CELL DISTRIBUTION WIDTH CV 13.8 % (11.5-14.5); RED CELL DISTRIBUTION WIDTH SD 43.4 fL (36.4-46.3); WHITE BLOOD COUNT 12.13 K/uL (4.8-10.8)
[2017-11-12 16:30] LABS: MEAN CORPUSCULAR HGB CONC 31.8 g/dl (32-36)
[2017-11-12 16:39] LABS: CALCIUM 8.9 mg/dl (8.5-10.1); CREATININE 0.87 mg/dl (0.60-1.20); POTASSIUM 4.4 mmol/L (3.5-5.1)
[2017-11-12] MEDS ORDERED: MAGNESIUM SULFATE 1GM / D5W 1 GM in PREMIXED IN D5W 100 ML IV STA (17:36)
--- NOTE | 2017-11-12 18:33 | Progress Note ---
Medicine Progress Note Date & Time of Visit: Nov 12, 2017 at 18:19. Subjective Pt was seen and examined Lying in bed with no distress Pt said that she feels much better today She said that her breathing is better She went back to Afib Denies any chest pain, palpitation, dizziness and SOB Objective Last 8 Hrs Date Time Temp Pulse Resp B/P (MAP) Pulse Ox O2 Delivery O2 Flow Rate FiO2 11/12/17 17:00 142 27 102/71 (81) 95 Room Air 11/12/17 16:30 113 31 103/60 (74) 94 Room Air 11/12/17 16:22 128 32 70/54 (59) 94 Room Air 11/12/17 16:09 130 104/74 11/12/17 16:00 Room Air 11/12/17 16:00 37.0 111 23 93 Room Air 11/12/17 14:00 85 22 89/50 (63) 97 Room Air 11/12/17 12:00 37.1 80 24 108/90 (96) 92 Room Air 11/12/17 12:00 Room Air 11/12/17 11:31 80 31 78/62 (67) 92 Nasal Cannula 2.0 11/12/17 11:02 82 27 85/54 (64) 94 Nasal Cannula 2.0 Physical Exam: General- No acute distress Head- atraumatic Eyes- PERRL, EOMI ENT- oropharynx clear Neck- supple, no JVD Lungs- No wheezing Heart- Irregular Abdomen- normal bowel sounds, soft Extremities- no calf tenderness Neuro- alert, oriented x 3; PERRL, EOMI Skin- warm & dry Laboratory Results: Last 24 Hours Test 11/11/17 19:43 11/11/17 20:47 11/12/17 05:14 11/12/17 06:33 Bedside Glucose 231 mg/dl 226 mg/dl 175 mg/dl White Blood Count 10.26 K/uL Red Blood Count 4.17 M/uL Hemoglobin 11.3 g/dL Hematocrit 35.9 % Mean Corpuscular Volume 86.1 fL Mean Corpuscular Hemoglobin 27.1 pg Mean Corpuscular Hemoglobin Concent 31.5 g/dl Platelet Count 244 K/uL Mean Platelet Volume 9.3 fL Neutrophils (%) (Auto) 65.4 % Lymphocytes (%) (Auto) 20.7 % Monocytes (%) (Auto) 12.1 % Eosinophils (%) (Auto) 1.3 % Basophils (%) (Auto) 0.3 % Neutrophils # (Auto) 6.72 K/uL Lymphocytes # (Auto) 2.12 K/uL Monocytes # (Auto) 1.24 K/uL Eosinophils # (Auto) 0.13 K/uL Basophils # (Auto) 0.03 K/uL RDW Standard Deviation 43.2 fL RDW Coefficient of Variation 13.8 % Immature Granulocyte % (Auto) 0.2 % Immature Granulocyte # (Auto) 0.02 K/uL Sodium Level 137 mmol/L Potassium Level 4.6 mmol/L Chloride Level 100 mmol/L Carbon Dioxide Level 35 mmol/L Anion Gap 2.0 mmol/L Blood Urea Nitrogen 19 mg/dl Creatinine 0.90 mg/dl Est Creatinine Clear Calc Drug Dose 75.4 ml/min Estimated GFR () 73.5 Estimated GFR (Non- 63.4 BUN/Creatinine Ratio 21.0 Random Glucose 166 mg/dl Calcium Level 8.2 mg/dl Phosphorus Level 2.6 mg/dl Magnesium Level 1.6 mg/dl Test 11/12/17 11:35 11/12/17 16:00 11/12/17 16:17 Bedside Glucose 184 mg/dl 155 mg/dl White Blood Count 12.13 K/uL Red Blood Count 4.23 M/uL Hemoglobin 11.6 g/dL Hematocrit 36.5 % Mean Corpuscular Volume 86.3 fL Mean Corpuscular Hemoglobin 27.4 pg Mean Corpuscular Hemoglobin Concent 31.8 g/dl RDW Standard Deviation 43.4 fL RDW Coefficient of Variation 13.8 % Platelet Count 252 K/uL Mean Platelet Volume 9.5 fL Sodium Level 134 mmol/L Potassium Level 4.4 mmol/L Chloride Level 100 mmol/L Carbon Dioxide Level 31 mmol/L Anion Gap 3.0 mmol/L Blood Urea Nitrogen 24 mg/dl Creatinine 0.87 mg/dl Est Creatinine Clear Calc Drug Dose 80.3 ml/min Estimated GFR () 76.6 Estimated GFR (Non- 66.1 BUN/Creatinine Ratio 28.2 Random Glucose 149 mg/dl Calcium Level 8.9 mg/dl Assessment & Plan NSTEMI Presenting with chest pain and shortness of breath on admission n the ED on admission EKG showed subtle ST elevations in 1, 2, and V1 and V2 as well as new T-wave inversions in V1, V2 and V3. Had Cath done yesterday that showed 80-90% LAD lesion and had a drug-eluting stent placed Starting on Aspirin and Plavix and continue eliquis for 1 month, then Plavix and Eliquis for 1 year Continue Statin, Metoprolol and ACEI Developed chest pain this morning Troponin trending up to 3.7 Case discussed with Cardiology and brought her to cardiac cath for eval of the stent that was placed yesterday Widely patent mid LAD stent Will need lifevest before discharge Clinically improved ECHO * The left ventricle is normal in size. * There are severe wall motion abnormalities of the anterior, anterior septal, lateral and apical myocardium consistent with an infarct of the LAD distribution. * The estimated left ventricular ejection fraction is around 20%. * The left atrium is severely dilated. * There is moderate mitral regurgitation. ACUTE SYSTOLIC CHF ACUTE RESPIRATORY DISTRESS CXR showed cardiomegaly with volume overload/congestive change and small right pleural effusion. Echo showed left ventricular ejection fraction is around 20%. Continue lasix 40mg BID Saturated well on RA Clinically improves LEUKOCYTOSIS WBC 12.8 K on admission Mildly elevated lactic acid possible related to NSTEMI CXR showed no sign of pneumonia and UA negative for UTI Continue monitor ATRIAL FIBRILLATION HR was elevated in the 140 Metoprolol was given Now HR in the 90's Continue Eliquis Scheduled for ablation next month HTN BP controlled continue metoprolol and lisinopril DM Last Hgb A1c 9. BS elevated Hold oral agents and utilize NovoLog per protocol while hospitalized Will monitor BS closely DVT PROPHYLAXIS On Eliquis Disposition Will monitor in the ICU Current Inpatient Medications: Current Inpatient Medications Medications (Trade) Dose Ordered Sig/Tasha Route Start Time Stop Time Status Last Admin Dose Admin Miscellaneous (Iv Fluids Completed) 1 ea PRN PRN N/A 11/10/17 16:00 11/10/18 15:59 Nitroglycerin (Nitrostat Tab) 0.4 mg UD PRN SL 11/10/17 16:15 12/10/17 16:14 11/11/17 07:05 0.4 MG Ondansetron HCl (Zofran Inj) 4 mg Q6H PRN IV 11/10/17 16:15 12/10/17 16:14 Clopidogrel Bisulfate (plAVix TAB) 75 mg QAM PO 11/11/17 09:00 12/11/17 08:59 11/12/17 09:33 75 MG Atorvastatin Calcium (Lipitor Tab) 80 mg QAM PO 11/11/17 09:00 12/11/17 08:59 11/12/17 08:36 80 MG Acetaminophen (Tylenol Tab) 650 mg Q4H PRN PO 11/10/17 16:15 12/10/17 16:14 11/10/17 19:12 650 MG Aspirin (Ecotrin Tab) 81 mg DAILY PO 11/11/17 09:00 12/11/17 08:59 11/12/17 08:38 81 MG Calcium/Vitamin D (Caltrate Plus Tab) 2 tab DAILY PO 11/11/17 09:00 12/11/17 08:59 11/12/17 08:37 2 TAB Magnesium Oxide (Mag-Ox Tab) 400 mg BID PO 11/10/17 21:00 12/10/17 20:59 11/12/17 08:37 400 MG Metoprolol Succinate (Toprol Xl Tab) 100 mg QAM PO 11/11/17 09:00 12/11/17 08:59 11/12/17 08:36 100 MG Multivitamins (Multivitamin Tab) 1 tab DAILY PO 11/11/17 09:00 12/11/17 08:59 11/12/17 08:38 1 TAB Oxybutynin Chloride (Ditropan Tab) 5 mg BID PO 11/10/17 21:00 12/10/17 20:59 11/12/17 09:33 5 MG Venlafaxine HCl (effeXOR EXTENDED REL CAP) 75 mg DAILY PO 11/11/17 09:00 12/11/17 08:59 11/12/17 09:33 75 MG Apixaban (Eliquis Tab) 5 mg BID PO 11/11/17 09:00 12/11/17 08:59 11/12/17 08:38 5 MG Insulin Aspart (novoLOG ASPART) SLIDING SCALE If C... ACHS SC 11/10/17 21:00 12/10/17 20:59 11/12/17 16:48 4 UNITS Glucose (Glucose 40% Gel) 15-30 GRAMS 15 GRAMS... UD PRN PO 11/10/17 17:15 12/10/17 17:14 Glucose (Glucose Chew Tab) 4-8 Tablets 4 Tabl... UD PRN PO 11/10/17 17:15 12/10/17 17:14 Dextrose (Dextrose 50% 50ML Syringe) 25-50ML OF 50% DW IV FOR... UD PRN IV 11/10/17 17:15 12/10/17 17:14 Glucagon (Glucagon Inj) 1 mg UD PRN SQ 11/10/17 17:15 12/10/17 17:14 Lisinopril (Zestril Tab) 10 mg QAM PO 11/12/17 09:00 12/11/17 08:59 11/12/17 08:37 10 MG Insulin Glargine (Lantus Solostar Pen) 10 units BID SC 11/11/17 21:00 12/11/17 20:59 11/12/17 09:29 10 UNITS Furosemide 40 mg/ Syringe 4 ml @ 4 mls/min BID17 IV 11/11/17 21:00 12/11/17 20:59 11/12/17 16:49 4 MLS/MIN Famotidine (Pepcid Tab) 20 mg BID PO 11/12/17 09:00 12/12/17 08:59 11/12/17 08:39 20 MG Potassium Chloride (Klor-Con Tab) 20 meq BID17 PO 11/12/17 09:00 12/12/17 08:59 11/12/17 16:50 20 MEQ Amiodarone HCL/ Dextrose 200 ml @ 33.3 mls/hr Q6H1M IV 11/12/17 16:10 11/12/17 22:10 11/12/17 16:23 33.3 MLS/HR Amiodarone HCL/ Dextrose 200 ml @ 16.7 mls/hr [id number] IV 11/12/17 22:10 12/12/17 22:09 Magnesium Sulfate 1 gm/Prmx 100 ml @ 100 mls/hr NOW STAT IV 11/12/17 17:36 11/12/17 18:35
[2017-11-12] MEDS ORDERED: DIGOXIN IV 250 MCG in SYRINGE 9 ML IV ONE (19:00)
--- NOTE | 2017-11-12 19:20 | Critical Care Progress Note ---
Critical Care Progress Note Date of Service Nov 12, 2017. Critical Care Progress Note Pt developed atrial fibrillation with RVR at about 15:45, rate 128. Pt asymptomatic, denied chest pain or difficulty breathing. ECG stat ordered showed no acute ischemic changes. Stat PRP showed adequate potassium. Repleted 1 gm of Magnesium. Gave 2.5mg Metoprolol IV, but pt did not tolerate, her SBP went down to 80s and 90s. Began Amiodarone bolus and infusion. Rate remains high in 120s and 130s one hour later, so began digoxin, .25mg loading dose x 1, then .125mg dose ordered for 6 hours later. Will review kidney function in AM labs before next dose of digoxin. Please refer to Dr. Meng's documentation for any further recommendations. Resident Tracking Resident Involvement: Resident Care Provided Care Provided: Adult [facility]
[2017-11-12] MEDS: AMIODARONE / D5W 200 ML IV SCH (21:40)
[2017-11-13] VITALS (33 sets, daily range): BP systolic 99–148; BP diastolic 70–101; PULSE 97–146; TEMP 36.5–38; O2SAT 88–97
[2017-11-13] MEDS ORDERED: DIGOXIN IV 125 MCG in SYRINGE 9.5 ML IV ONE
[2017-11-13 06:09] LABS: BASO % 0.2 %; BASO ABS # 0.02 K/uL (0-0.2); EOS % 2.3 %; EOS ABS # 0.29 K/uL (0-0.5); HEMATOCRIT 37.8 % (37-47); HEMOGLOBIN 11.9 g/dL (12.0-16.0); IG# 0.03 K/uL (0.00-0.02); LYMPH % 16.3 %; LYMPH ABS # 2.02 K/uL (1.2-3.4); MEAN CELL VOLUME 86.7 fL (80-100); MEAN CORPUSCULAR HEMOGLOBIN 27.3 pg (25-34); MEAN CORPUSCULAR HGB CONC 31.5 g/dl (32-36); MEAN PLATELET VOLUME 9.7 fL (7.4-10.4); MONO % 8.7 %; MONO ABS # 1.08 K/uL (0.11-0.59); NEUT % 72.3 %; NEUT ABS # 8.97 K/uL (1.4-6.5); PLATELET COUNT 266 K/uL (130-400); RED CELL DISTRIBUTION WIDTH CV 13.8 % (11.5-14.5); RED CELL DISTRIBUTION WIDTH SD 43.7 fL (36.4-46.3); WHITE BLOOD COUNT 12.41 K/uL (4.8-10.8)
[2017-11-13 06:40] LABS: CALCIUM 8.6 mg/dl (8.5-10.1); CREATININE 0.74 mg/dl (0.60-1.20); PHOSPHORUS 3.1 mg/dl (2.5-4.9); POTASSIUM 4.1 mmol/L (3.5-5.1)
[2017-11-13] MEDS: VENLAFAXINE HCL XR 75 MG CAPXR PO SCH (07:45)
[2017-11-13] MEDS: CALCIUM 600MG + VIT D 400 IU TAB PO SCH (07:45)
[2017-11-13] MEDS: METOPROLOL SUCC 50MG EXT REL TAB PO SCH (07:46)
[2017-11-13] MEDS: CLOPIDOGREL BISULFATE 75 MG TAB PO SCH (07:46)
[2017-11-13] MEDS: MULTIVITAMIN TAB PO SCH (07:47)
[2017-11-13] MEDS: OXYBUTYNIN CHLORIDE 5 MG TAB PO SCH ×2 (07:47→20:54)
[2017-11-13] MEDS: POTASSIUM CHLORIDE 20 MEQ TABCR PO SCH ×2 (07:48→16:23)
[2017-11-13] MEDS: MAGNESIUM OXIDE 400 MG TAB PO SCH ×2 (07:48→20:55)
[2017-11-13] MEDS: ATORVASTATIN 40 MG TAB PO SCH (07:48)
[2017-11-13] MEDS: APIXABAN 2.5 MG TAB PO SCH ×2 (07:49→20:56)
[2017-11-13] MEDS: ASPIRIN 81 MG ECTAB PO SCH (07:50)
[2017-11-13] MEDS: FAMOTIDINE 20 MG TAB PO SCH ×2 (07:50→20:56)
[2017-11-13] MEDS: INSULIN GLARGINE SOLOSTAR 100 UNITS/ML 3 ML PEN SC SCH ×2 (07:51→21:08)
[2017-11-13] MEDS: LISINOPRIL 5 MG TAB PO SCH (07:53)
[2017-11-13] MEDS: FUROSEMIDE INJ 40 MG in SYRINGE 0 ML IV SCH ×2 (08:02→16:23)
[2017-11-13] MEDS: INSULIN ASPART 100 UNITS/ML 3 ML PEN SC SCH ×4 (08:09→21:07)
--- NOTE | 2017-11-13 08:18 | Critical Care Progress Note ---
Critical Care Progress Note Date of Service Nov 13, 2017. Attending Dr. Meng Subjective Pt is doing well this morning, still asymptomatic despite afib, HR can get up to 140s. Currently on digoxin day 2 and amiodarone drip. Reports she had an episode of mild dull pain that felt like pressure on her upper chest bilaterally. She denies difficulty breathing, sweating, headache, blurry vision , no increased swelling in her legs or pain in the abdomen. Eating breakfast, voiding well. Objective GENERAL: Awake, alert, in no distress. Obese habitus. Breathing room air. HENT: Normocephalic, atraumatic. EYES: Normal conjunctiva. Sclera non-icteric. NECK: Supple. No nuchal rigidity. FROM. RESPIRATORY: Diminished breath sounds bilaterally. CARDIAC: Irregularly irregular rate. Extremities warm and well perfused. Pulses equal. ABDOMEN: Soft, non-distended. No tenderness to palpation. No rebound or guarding. No masses. LOWER EXTREMITIES: Calves are equal size bilaterally. 2+ edema. Some discoloration evident of venous stasis. SCD's in place. ACCESS: LT arm PIV x [address], RT arm PIV x [address] NEURO: Normal sensorium. No sensory or motor deficits noted. SKIN: Some discoloration evident of venous stasis. Assessment & Plan (1) STEMI (ST elevation myocardial infarction) (2) Osteoarthritis (3) DM type 2 (diabetes mellitus, type 2) (4) Atrial fibrillation (5) Dyslipidemia (6) Hypertension Reason Critically Ill: 72-year-old female with a significant past medical history of SVT and paroxysmal AFIB, here for acute hypoxic respiratory failure in the setting of congestive heart failure. Neuro - [facility] ICU: NEGATIVE No concerns at this time. Cardiac - Cardiac cath 11/10/17 showed severe single vessel coronary artery disease - 80 -90% calcified diffuse mid LAD stenosis - with successful PCI of mid LAD with single drug-eluting stent (3.0 x 34 Valerio; post-dilated with 3.75 NC). Echocardiogram 11/11/17 report showed severe wall motion abnormalities of the anterior, anterior septal, lateral and apical myocardium consistent with an infarct of the LAD distribution. Showed ejection fraction is around 20%. Repeat catheterization 11/11/17 found vessels sufficiently patent, no further intervention at that time. Limited thoracic ultrasound 11/11/17, showed type B profile bilaterally - confirmed pleural edema and effusion. Not enough to tap. I/O: -3.4 L so far. Goal today another output -1.0L. Continue Lasix 40 BID. 1200 mL fluid restriction. Cardiology consult, appreciate recs. Increase Amiodarone infusion to 1mg/ min. Diamox switched to aldactone today. Continue Lipitor 80, ASA 81mg, Toprol 100mg qam. Hold lisinopril as pt is a candidate for Entresto and will need to be off lisinopril for 48h. Continue Plavix and Eliquis. Respiratory - 92-94 on Room air. Last ABG 11/11/17 showed 7.42/39/134/25 GI - AHA and ADA T2 diet ordered. RENAL/LYTES - Giving 20meq K PO BID, 400mg MgOx PO BID. - DC'ed Whitaker, voiding well. No concerns at this time. ENDO - BSG in high 172-235. 10 units BID - tolerated 10 u BID during last hospitalization. Follow. ISS HEME - On Eliquis 5mg BID PO, and plavix 75mg QAM, ASA 81mg as above. Stable H&H. ID - No concerns for infection at this point. LINES/IV ACCESS - PIVs intact. DVT PROPHYLAXIS - Eliquis as above. Thank you for allowing us to be part of this patient's care. Please refer to Dr. Meng's documentation for any further recommendations. Resident Physician Supervision Note: Dr. Ashley Dow was resident physician during care of patient. I separately evaluated patient and did history and exam. I discussed the case with the resident and generally agree with the findings and plan. Discontinue Whitaker catheter today, still critically ill due to atrial fibrillation with rapid ventricular response. I discussed the case extensively with cardiology. Modifying diuretics slightly and increasing amiodarone for hopeful chemical cardioversion. I have personally spent 40 minutes of critical care time in the direct management of this patient. This is a life/limb threatening event. This includes time spent evaluating patient, direct bedside care, chart review, placing orders, interpretation of diagnostic studies, discussion with consultants, patient, and/or family members regarding treatment decisions, as well as other required patient management activities. This time is exclusive of all separately billable procedures, and teaching time and separate from and in addition to any other critical care service time. Documented By: Domo Meng DO Consults & Procedures Consultants: Cardiology - Dr. Moreno, Dr. Castellanos Procedures: Cardiac catheterization 11/10/17 Cardiac catheterization 11/11/17 Echocardiogram 11/11/17 Data Medications: Current Inpatient Medications Medications (Trade) Dose Ordered Sig/Tasha Route Start Time Stop Time Status Last Admin Dose Admin Miscellaneous (Iv Fluids Completed) 1 ea PRN PRN N/A 11/10/17 16:00 11/10/18 15:59 Nitroglycerin (Nitrostat Tab) 0.4 mg UD PRN SL 11/10/17 16:15 12/10/17 16:14 11/11/17 07:05 0.4 MG Ondansetron HCl (Zofran Inj) 4 mg Q6H PRN IV 11/10/17 16:15 12/10/17 16:14 Clopidogrel Bisulfate (plAVix TAB) 75 mg QAM PO 11/11/17 09:00 12/11/17 08:59 11/13/17 07:46 75 MG Atorvastatin Calcium (Lipitor Tab) 80 mg QAM PO 11/11/17 09:00 12/11/17 08:59 11/13/17 07:48 80 MG Acetaminophen (Tylenol Tab) 650 mg Q4H PRN PO 11/10/17 16:15 12/10/17 16:14 11/10/17 19:12 650 MG Aspirin (Ecotrin Tab) 81 mg DAILY PO 11/11/17 09:00 12/11/17 08:59 11/13/17 07:50 81 MG Calcium/Vitamin D (Caltrate Plus Tab) 2 tab DAILY PO 11/11/17 09:00 12/11/17 08:59 11/13/17 07:45 2 TAB Magnesium Oxide (Mag-Ox Tab) 400 mg BID PO 11/10/17 21:00 12/10/17 20:59 11/13/17 07:48 400 MG Metoprolol Succinate (Toprol Xl Tab) 100 mg QAM PO 11/11/17 09:00 12/11/17 08:59 11/13/17 07:46 100 MG Multivitamins (Multivitamin Tab) 1 tab DAILY PO 11/11/17 09:00 12/11/17 08:59 11/13/17 07:47 1 TAB Oxybutynin Chloride (Ditropan Tab) 5 mg BID PO 11/10/17 21:00 12/10/17 20:59 11/13/17 07:47 5 MG Venlafaxine HCl (effeXOR EXTENDED REL CAP) 75 mg DAILY PO 11/11/17 09:00 12/11/17 08:59 11/13/17 07:45 75 MG Apixaban (Eliquis Tab) 5 mg BID PO 11/11/17 09:00 12/11/17 08:59 11/13/17 07:49 5 MG Insulin Aspart (novoLOG ASPART) SLIDING SCALE If C... ACHS SC 11/10/17 21:00 12/10/17 20:59 11/13/17 08:09 9 UNITS Glucose (Glucose 40% Gel) 15-30 GRAMS 15 GRAMS... UD PRN PO 11/10/17 17:15 12/10/17 17:14 Glucose (Glucose Chew Tab) 4-8 Tablets 4 Tabl... UD PRN PO 11/10/17 17:15 12/10/17 17:14 Dextrose (Dextrose 50% 50ML Syringe) 25-50ML OF 50% DW IV FOR... UD PRN IV 11/10/17 17:15 12/10/17 17:14 Glucagon (Glucagon Inj) 1 mg UD PRN SQ 11/10/17 17:15 12/10/17 17:14 Lisinopril (Zestril Tab) 10 mg QAM PO 11/12/17 09:00 12/11/17 08:59 11/13/17 07:53 10 MG Insulin Glargine (Lantus Solostar Pen) 10 units BID SC 11/11/17 21:00 12/11/17 20:59 11/13/17 07:51 10 UNITS Furosemide 40 mg/ Syringe 4 ml @ 4 mls/min BID17 IV 11/11/17 21:00 12/11/17 20:59 11/13/17 08:02 4 MLS/MIN Famotidine (Pepcid Tab) 20 mg BID PO 11/12/17 09:00 12/12/17 08:59 11/13/17 07:50 20 MG Potassium Chloride (Klor-Con Tab) 20 meq BID17 PO 11/12/17 09:00 12/12/17 08:59 11/13/17 07:48 20 MEQ Amiodarone HCL/ Dextrose 200 ml @ 16.7 mls/hr [id number] IV 11/12/17 22:10 12/12/17 22:09 11/12/17 21:40 16.7 MLS/HR Digoxin 125 mcg/ Syringe 10 ml @ 2 mls/min DAILY IV 11/13/17 09:00 12/13/17 08:59 11/13/17 07:41 2 MLS/MIN Vital Signs: Date Time Temp Pulse Resp B/P (MAP) Pulse Ox O2 Delivery O2 Flow Rate FiO2 11/13/17 07:41 134 11/13/17 05:01 36.5 100 25 121/85 (97) 92 Room Air 11/13/17 04:01 97 27 125/82 (96) 91 Room Air 11/13/17 04:00 94 Room Air 11/13/17 03:01 100 24 109/88 (95) 92 Room Air 11/13/17 02:01 108 25 113/92 (99) 96 11/13/17 00:01 36.8 113 26 101/72 (82) 95 Room Air 11/12/17 23:59 94 Room Air 11/12/17 23:50 114 11/12/17 23:01 121 29 105/64 (78) 92 Room Air 11/12/17 22:01 118 31 99/71 (80) 92 Room Air 11/12/17 21:00 118 27 99/68 (78) 94 Room Air 11/12/17 20:01 37.3 120 25 109/75 (86) 94 Room Air 11/12/17 20:00 94 Room Air 11/12/17 19:18 135 11/12/17 18:00 114 27 110/64 (79) 94 Room Air 11/12/17 17:00 142 27 102/71 (81) 95 Room Air 11/12/17 16:30 113 31 103/60 (74) 94 Room Air 11/12/17 16:22 128 32 70/54 (59) 94 Room Air 11/12/17 16:09 130 104/74 11/12/17 16:00 Room Air 11/12/17 16:00 37.0 111 23 93 Room Air 4/13/18 14:00 85 22 89/50 (63) 97 Room Air 11/12/17 12:00 37.1 80 24 108/90 (96) 92 Room Air 11/12/17 12:00 Room Air 11/12/17 11:31 80 31 78/62 (67) 92 Nasal Cannula 2.0 11/12/17 11:02 82 27 85/54 (64) 94 Nasal Cannula 2.0 11/12/17 10:00 81 22 86/59 (68) 94 Nasal Cannula 2.0 Laboratory Results: Last 24 Hours Test 11/12/17 11:35 11/12/17 16:00 11/12/17 16:17 11/12/17 20:47 Bedside Glucose 184 mg/dl 155 mg/dl 184 mg/dl White Blood Count 12.13 K/uL Red Blood Count 4.23 M/uL Hemoglobin 11.6 g/dL Hematocrit 36.5 % Mean Corpuscular Volume 86.3 fL Mean Corpuscular Hemoglobin 27.4 pg Mean Corpuscular Hemoglobin Concent 31.8 g/dl RDW Standard Deviation 43.4 fL RDW Coefficient of Variation 13.8 % Platelet Count 252 K/uL Mean Platelet Volume 9.5 fL Sodium Level 134 mmol/L Potassium Level 4.4 mmol/L Chloride Level 100 mmol/L Carbon Dioxide Level 31 mmol/L Anion Gap 3.0 mmol/L Blood Urea Nitrogen 24 mg/dl Creatinine 0.87 mg/dl Est Creatinine Clear Calc Drug Dose 80.3 ml/min Estimated GFR () 76.6 Estimated GFR (Non- 66.1 BUN/Creatinine Ratio 28.2 Random Glucose 149 mg/dl Calcium Level 8.9 mg/dl Test 11/13/17 05:28 11/13/17 05:32 White Blood Count 12.41 K/uL Red Blood Count 4.36 M/uL Hemoglobin 11.9 g/dL Hematocrit 37.8 % Mean Corpuscular Volume 86.7 fL Mean Corpuscular Hemoglobin 27.3 pg Mean Corpuscular Hemoglobin Concent 31.5 g/dl Platelet Count 266 K/uL Mean Platelet Volume 9.7 fL Neutrophils (%) (Auto) 72.3 % Lymphocytes (%) (Auto) 16.3 % Monocytes (%) (Auto) 8.7 % Eosinophils (%) (Auto) 2.3 % Basophils (%) (Auto) 0.2 % Neutrophils # (Auto) 8.97 K/uL Lymphocytes # (Auto) 2.02 K/uL Monocytes # (Auto) 1.08 K/uL Eosinophils # (Auto) 0.29 K/uL Basophils # (Auto) 0.02 K/uL RDW Standard Deviation 43.7 fL RDW Coefficient of Variation 13.8 % Immature Granulocyte % (Auto) 0.2 % Immature Granulocyte # (Auto) 0.03 K/uL Sodium Level 136 mmol/L Potassium Level 4.1 mmol/L Chloride Level 102 mmol/L Carbon Dioxide Level 28 mmol/L Anion Gap 6.0 mmol/L Blood Urea Nitrogen 22 mg/dl Creatinine 0.74 mg/dl Est Creatinine Clear Calc Drug Dose 92.8 ml/min Estimated GFR () 93.2 Estimated GFR (Non- 80.4 BUN/Creatinine Ratio 29.9 Random Glucose 176 mg/dl Calcium Level 8.6 mg/dl Phosphorus Level 3.1 mg/dl Magnesium Level 2.0 mg/dl Bedside Glucose 172 mg/dl Resident Tracking Resident Involvement: Resident Care Provided Care Provided: Adult [facility] Medicine Problem Qualifiers (1) STEMI (ST elevation myocardial infarction): Involved coronary artery: unspecified coronary artery Qualified Codes: I21.3 - ST elevation (STEMI) myocardial infarction of unspecified site
[2017-11-13] MEDS ORDERED: DIGOXIN IV 125 MCG in SYRINGE 9.5 ML IV SCH (09:00)
[2017-11-13] MEDS ORDERED: ACETAZOLAMIDE IV PUSH 500 MG in SYRINGE 0 ML IV ONE (09:15)
[2017-11-13] MEDS: AMIODARONE / D5W 200 ML IV SCH (09:57)
[2017-11-13] MEDS ORDERED: AMIODARONE IV BOLUS / DRIP IV STA (10:20)
[2017-11-13] MEDS ORDERED: AMIODARONE 200 MG TAB PO ONE (10:20)
[2017-11-13] MEDS ORDERED: SPIRONOLACTONE 25 MG TAB PO ONE (10:23)
--- NOTE | 2017-11-13 10:44 | Cardiology Follow-Up ---
Subjective General Date of Service: Nov 13, 2017. Chief Complaint: follow up chest pain, shortness of breath Pt evaluation today including: conversation w/ patient, physical exam, chart review, lab review, review of inpatient medication list History of Present Illness The patient is a 72 year old female seen in cardiology follow up, having taken over rounding responsibilities for Dr Moreno today. Patient known to the undersigned as I had followed her during hospital stay for syncope, SVT, atrial fibrillation in September,. She feels well at present in ICU room 103. UO 3.2 L of urine yesterday. She had some chest discomfort shortly after breakfast, but this was short lived and resolved. On 11/12/17 , the patient reverted to AF at 15:14, with mild RVR, now V rates in the 120-127 bpm range in bed. EKG reveals stable findings. No acute ST changes. A septal Q wave is new this hospital stay that was not present in 09/2017. Allergies Coded Allergies: Cetirizine & Related (Verified Allergy, Intermediate, ANAPHYLAXIS, 10/13/17 ) Hallucinations Hydroxyzine (Verified Allergy, Unknown, 10/13/17) Social History Smoking Status: Former Smoker Hx Tobacco Use In Past Year?: No Hx Alcohol Use - Type And Amou: No Hx Substance Use - Type And Am: No Problem List Medical Problems: (1) Elevated WBC count Status: Acute (2) Hyperglycemia Status: Acute (3) Hyperkalemia Status: Acute (4) STEMI (ST elevation myocardial infarction) Status: Acute (5) SVT (supraventricular tachycardia) Status: Acute Physical Exam Vital Signs Last Vital Signs Documentation Date Time Temp Pulse Resp B/P (MAP) Pulse Ox O2 Delivery O2 Flow Rate FiO2 11/13/17 07:41 134 11/13/17 07:30 95 Room Air 11/13/17 05:01 36.5 25 121/85 (97) 11/12/17 11:31 2.0 11/12/17 06:01 40 Physical Exam Constitutional: Level of Distress: NAD ENMT: hearing grossly normal Neck: supple, trachea midline Lungs: Auscultation: no rhonchi, pertinent finding (mildly decreased BS at the bases.) Cardiovascular: Heart Auscultation: no murmurs, no rubs, irregular rate rhythm Extremities: pertinent finding (trace LE edema) Neurologic: Gait & Station: pertinent finding (no focal deficits ) Assessment and Plan Assessment and Plan IMPRESSION: 1. Presented 11/10/17 with chest pain, non ST elevation acute coronary syndrome, had emergent cardiac cath, ISABEL to LAD, residual Cx territory disease, non amenable to PCI treated medically. 2. Recurrent chest pain, new CHF 11/11/17 prompting repeat cath, Stable findings with patent LAD stent. 3. Acute , newly diagnosed systolic heart failure, new LAD wall motion abnormality this admission, severe LV systolic dysfunction, not present 09/2017, Question of timing of insult regarding this week or more remote (sometime within the last month since prior echo) 4. History of supraventricular tachycardia, episode of 200 bpm required urgent cardioversion 09/2017 5. PAF, with recurrence this admission PLAN: -for CHF DC diamox. CO2 OK on chem panel. Continue IV furosemide 40 mg IV BID. OK to DC man. Add aldactone given acute systolic heart failure (eplerenone is the aldosterone iman agent of choice given recent MD, however aldactone is generic). -Follow electrolytes. -For AF Increase amiodarone infusion to 1 mg /min, and add amiodarone. DC digoxin for now, and maintain metoprolol and amiodarone. continue Eliquis for stroke prevention. -CAD, ASA, clopidogrel, also on Eliquis for AF. plan to DC aspirin after 1 month, continue clopidogrel x 1 year and reassess. Continue Eliquis. DVT prophylaxis: on Eliquis. Discussed with ICU team, and pt's nurse. Laboratory Results Last 24 Hours Test 11/12/17 11:35 11/12/17 16:00 11/12/17 16:17 11/12/17 20:47 Bedside Glucose 184 mg/dl 155 mg/dl 184 mg/dl White Blood Count 12.13 K/uL Red Blood Count 4.23 M/uL Hemoglobin 11.6 g/dL Hematocrit 36.5 % Mean Corpuscular Volume 86.3 fL Mean Corpuscular Hemoglobin 27.4 pg Mean Corpuscular Hemoglobin Concent 31.8 g/dl RDW Standard Deviation 43.4 fL RDW Coefficient of Variation 13.8 % Platelet Count 252 K/uL Mean Platelet Volume 9.5 fL Sodium Level 134 mmol/L Potassium Level 4.4 mmol/L Chloride Level 100 mmol/L Carbon Dioxide Level 31 mmol/L Anion Gap 3.0 mmol/L Blood Urea Nitrogen 24 mg/dl Creatinine 0.87 mg/dl Est Creatinine Clear Calc Drug Dose 80.3 ml/min Estimated GFR () 76.6 Estimated GFR (Non- 66.1 BUN/Creatinine Ratio 28.2 Random Glucose 149 mg/dl Calcium Level 8.9 mg/dl Test 11/13/17 05:28 11/13/17 05:32 White Blood Count 12.41 K/uL Red Blood Count 4.36 M/uL Hemoglobin 11.9 g/dL Hematocrit 37.8 % Mean Corpuscular Volume 86.7 fL Mean Corpuscular Hemoglobin 27.3 pg Mean Corpuscular Hemoglobin Concent 31.5 g/dl Platelet Count 266 K/uL Mean Platelet Volume 9.7 fL Neutrophils (%) (Auto) 72.3 % Lymphocytes (%) (Auto) 16.3 % Monocytes (%) (Auto) 8.7 % Eosinophils (%) (Auto) 2.3 % Basophils (%) (Auto) 0.2 % Neutrophils # (Auto) 8.97 K/uL Lymphocytes # (Auto) 2.02 K/uL Monocytes # (Auto) 1.08 K/uL Eosinophils # (Auto) 0.29 K/uL Basophils # (Auto) 0.02 K/uL RDW Standard Deviation 43.7 fL RDW Coefficient of Variation 13.8 % Immature Granulocyte % (Auto) 0.2 % Immature Granulocyte # (Auto) 0.03 K/uL Sodium Level 136 mmol/L Potassium Level 4.1 mmol/L Chloride Level 102 mmol/L Carbon Dioxide Level 28 mmol/L Anion Gap 6.0 mmol/L Blood Urea Nitrogen 22 mg/dl Creatinine 0.74 mg/dl Est Creatinine Clear Calc Drug Dose 92.8 ml/min Estimated GFR () 93.2 Estimated GFR (Non- 80.4 BUN/Creatinine Ratio 29.9 Random Glucose 176 mg/dl Calcium Level 8.6 mg/dl Phosphorus Level 3.1 mg/dl Magnesium Level 2.0 mg/dl Bedside Glucose 172 mg/dl
--- NOTE | 2017-11-13 16:04 | Procedure Note ---
Procedure Note Date of Service Nov 13, 2017. Procedure Note Critical Care Medicine Point of Care Bedside Ultrasound Procedure: Limited Bedside Lung Ultrasound Procedure Date: November 11, 2017 Indication: Acute hypoxic respiratory failure Attending: Lizandro Meng DO Resident/Physician Paper Baler: Ashley Dow Organs Examined: Lung BLUE point (upper), BLUE point (lower), Phrenic Point (axillary), PLAPS point ( posterior) A lines visualized: Negative, Hemithorax: Bilateral B lines visualized: Positive, Hemithorax: Bilateral Lung Sliding: Positive, Hemithorax: Bilateral Tissue-like Sign: Negative, Hemithorax: Bilateral Shred Sign: Negative, Hemithorax: Bilateral Quad Sign: Negative, Hemithorax: Bilateral Sinusoid Sign: Positive, Hemithorax: Right Type of effusions: Simple, Hemithorax: Right Interpleural distance: Less than 1 cm Impression: Type B profile consistent with likely volume overload and probable small simple pleural effusion in the right chest Plan: Aggressive diuresis and noninvasive mechanical ventilation Images obtained are saved for permanent record
[2017-11-13] MEDS: POLYOLEFIN IV SCH ×4 (16:13→21:03)
[2017-11-13] MEDS: AMIODARONE IV SCH ×4 (16:13→21:03)
[2017-11-13] MEDS: D5W IV SCH ×4 (16:13→21:03)
[2017-11-13] MEDS: AMIODARONE 200 MG TAB PO SCH ×2 (16:14→20:57)
--- NOTE | 2017-11-13 18:06 | Progress Note ---
Medicine Progress Note Date & Time of Visit: Nov 13, 2017 at 17:56. Subjective Pt was seen and examined Lying in bed with no distress Pt said that she is breathing better She denies any chest pain, palpitation, dizziness and SOB Objective Last 8 Hrs Date Time Temp Pulse Resp B/P (MAP) Pulse Ox O2 Delivery O2 Flow Rate FiO2 11/13/17 16:26 37.1 115 24 148/70 (96) 93 Room Air 11/13/17 16:00 106 31 11/13/17 16:00 94 Room Air 11/13/17 15:26 109 27 144/79 (100) 11/13/17 15:00 115 31 144/79 (100) 92 11/13/17 14:01 108 30 112/77 (89) 11/13/17 14:00 124 20 11/13/17 13:01 125 27 122/80 (94) 92 Room Air 11/13/17 13:00 117 24 11/13/17 12:00 124 32 11/13/17 11:30 94 Room Air 11/13/17 11:01 37.2 130 29 99/77 (84) 92 Room Air 11/13/17 11:00 118 39 92 11/13/17 10:01 125 30 123/79 (94) 90 Room Air 11/13/17 10:00 117 34 92 Physical Exam: General- No acute distress Head- atraumatic Eyes- PERRL, EOMI ENT- oropharynx clear Neck- supple, no JVD Lungs- No wheezing Heart- Irregular rhythm Abdomen- normal bowel sounds, soft Extremities- no calf tenderness Neuro- alert, oriented x 3; PERRL, EOMI Skin- warm & dry Laboratory Results: Last 24 Hours Test 11/12/17 20:47 11/13/17 05:28 11/13/17 05:32 11/13/17 11:19 Bedside Glucose 184 mg/dl 172 mg/dl 235 mg/dl White Blood Count 12.41 K/uL Red Blood Count 4.36 M/uL Hemoglobin 11.9 g/dL Hematocrit 37.8 % Mean Corpuscular Volume 86.7 fL Mean Corpuscular Hemoglobin 27.3 pg Mean Corpuscular Hemoglobin Concent 31.5 g/dl Platelet Count 266 K/uL Mean Platelet Volume 9.7 fL Neutrophils (%) (Auto) 72.3 % Lymphocytes (%) (Auto) 16.3 % Monocytes (%) (Auto) 8.7 % Eosinophils (%) (Auto) 2.3 % Basophils (%) (Auto) 0.2 % Neutrophils # (Auto) 8.97 K/uL Lymphocytes # (Auto) 2.02 K/uL Monocytes # (Auto) 1.08 K/uL Eosinophils # (Auto) 0.29 K/uL Basophils # (Auto) 0.02 K/uL RDW Standard Deviation 43.7 fL RDW Coefficient of Variation 13.8 % Immature Granulocyte % (Auto) 0.2 % Immature Granulocyte # (Auto) 0.03 K/uL Sodium Level 136 mmol/L Potassium Level 4.1 mmol/L Chloride Level 102 mmol/L Carbon Dioxide Level 28 mmol/L Anion Gap 6.0 mmol/L Blood Urea Nitrogen 22 mg/dl Creatinine 0.74 mg/dl Est Creatinine Clear Calc Drug Dose 92.8 ml/min Estimated GFR () 93.2 Estimated GFR (Non- 80.4 BUN/Creatinine Ratio 29.9 Random Glucose 176 mg/dl Calcium Level 8.6 mg/dl Phosphorus Level 3.1 mg/dl Magnesium Level 2.0 mg/dl Test 11/13/17 16:16 Bedside Glucose 149 mg/dl Date/Time Source Procedure Growth Status 11/13/17 05:30 Ulcer Toe Right 1 Gram Stain Pending Received 11/13/17 05:30 Ulcer Toe Right 1 Wound Culture Pending Received Assessment & Plan NSTEMI Presenting with chest pain and shortness of breath on admission n the ED on admission EKG showed subtle ST elevations in 1, 2, and V1 and V2 as well as new T-wave inversions in V1, V2 and V3. Had Cath done yesterday that showed 80-90% LAD lesion and had a drug-eluting stent placed Starting on Aspirin and Plavix and continue eliquis for 1 month, then Plavix and Eliquis for 1 year Continue Statin, Metoprolol and ACEI Developed chest pain this morning Troponin trending up to 3.7 Case discussed with Cardiology and brought her to cardiac cath for eval of the stent that was placed yesterday Widely patent mid LAD stent Will need lifevest before discharge Clinically improved ECHO * The left ventricle is normal in size. * There are severe wall motion abnormalities of the anterior, anterior septal, lateral and apical myocardium consistent with an infarct of the LAD distribution. * The estimated left ventricular ejection fraction is around 20%. * The left atrium is severely dilated. * There is moderate mitral regurgitation. ACUTE SYSTOLIC CHF ACUTE RESPIRATORY DISTRESS CXR showed cardiomegaly with volume overload/congestive change and small right pleural effusion. Echo showed left ventricular ejection fraction is around 20%. Continue lasix 40mg BID Starting on Aldactone Saturated well on RA Clinically improves LEUKOCYTOSIS WBC 12.8 K on admission Mildly elevated lactic acid possible related to NSTEMI CXR showed no sign of pneumonia and UA negative for UTI Continue monitor ATRIAL FIBRILLATION HR in the 110 to 120 Starting on amiodarone drip Digoxin d/c Continue monitor HR Cardiology on board Continue Eliquis Scheduled for ablation next month HTN BP controlled continue metoprolol and lisinopril DM Last Hgb A1c BS elevated Hold oral agents and utilize NovoLog per protocol while hospitalized Will monitor BS closely DVT PROPHYLAXIS On Eliquis Disposition Continue monitor in the ICU Current Inpatient Medications: Current Inpatient Medications Medications (Trade) Dose Ordered Sig/Tasha Route Start Time Stop Time Status Last Admin Dose Admin Miscellaneous (Iv Fluids Completed) 1 ea PRN PRN N/A 11/10/17 16:00 11/10/18 15:59 Nitroglycerin (Nitrostat Tab) 0.4 mg UD PRN SL 11/10/17 16:15 12/10/17 16:14 11/11/17 07:05 0.4 MG Ondansetron HCl (Zofran Inj) 4 mg Q6H PRN IV 11/10/17 16:15 12/10/17 16:14 Clopidogrel Bisulfate (plAVix TAB) 75 mg QAM PO 11/11/17 09:00 12/11/17 08:59 11/13/17 07:46 75 MG Atorvastatin Calcium (Lipitor Tab) 80 mg QAM PO 11/11/17 09:00 12/11/17 08:59 11/13/17 07:48 80 MG Acetaminophen (Tylenol Tab) 650 mg Q4H PRN PO 11/10/17 16:15 12/10/17 16:14 11/10/17 19:12 650 MG Aspirin (Ecotrin Tab) 81 mg DAILY PO 11/11/17 09:00 12/11/17 08:59 11/13/17 07:50 81 MG Calcium/Vitamin D (Caltrate Plus Tab) 2 tab DAILY PO 11/11/17 09:00 12/11/17 08:59 11/13/17 07:45 2 TAB Magnesium Oxide (Mag-Ox Tab) 400 mg BID PO 11/10/17 21:00 12/10/17 20:59 11/13/17 07:48 400 MG Metoprolol Succinate (Toprol Xl Tab) 100 mg QAM PO 11/11/17 09:00 12/11/17 08:59 11/13/17 07:46 100 MG Multivitamins (Multivitamin Tab) 1 tab DAILY PO 11/11/17 09:00 12/11/17 08:59 11/13/17 07:47 1 TAB Oxybutynin Chloride (Ditropan Tab) 5 mg BID PO 11/10/17 21:00 12/10/17 20:59 11/13/17 07:47 5 MG Venlafaxine HCl (effeXOR EXTENDED REL CAP) 75 mg DAILY PO 11/11/17 09:00 12/11/17 08:59 11/13/17 07:45 75 MG Apixaban (Eliquis Tab) 5 mg BID PO 11/11/17 09:00 12/11/17 08:59 11/13/17 07:49 5 MG Insulin Aspart (novoLOG ASPART) SLIDING SCALE If C... ACHS SC 11/10/17 21:00 12/10/17 20:59 11/13/17 17:39 6 UNITS Glucose (Glucose 40% Gel) 15-30 GRAMS 15 GRAMS... UD PRN PO 11/10/17 17:15 12/10/17 17:14 Glucose (Glucose Chew Tab) 4-8 Tablets 4 Tabl... UD PRN PO 11/10/17 17:15 12/10/17 17:14 Dextrose (Dextrose 50% 50ML Syringe) 25-50ML OF 50% DW IV FOR... UD PRN IV 11/10/17 17:15 12/10/17 17:14 Glucagon (Glucagon Inj) 1 mg UD PRN SQ 11/10/17 17:15 12/10/17 17:14 Insulin Glargine (Lantus Solostar Pen) 10 units BID SC 11/11/17 21:00 12/11/17 20:59 11/13/17 07:51 10 UNITS Furosemide 40 mg/ Syringe 4 ml @ 4 mls/min BID17 IV 11/11/17 21:00 12/11/17 20:59 11/13/17 16:23 4 MLS/MIN Famotidine (Pepcid Tab) 20 mg BID PO 11/12/17 09:00 12/12/17 08:59 11/13/17 07:50 20 MG Potassium Chloride (Klor-Con Tab) 20 meq BID17 PO 11/12/17 09:00 12/12/17 08:59 11/13/17 16:23 20 MEQ Amiodarone HCl (Cordarone Tab) 200 mg TID PO 11/13/17 14:00 12/13/17 13:59 11/13/17 16:14 200 MG Spironolactone (Aldactone Tab) 12.5 mg QAM PO 11/14/17 09:00 12/14/17 08:59 Amiodarone HCl 450 mg/Dextrose 225 ml @ 30 mls/hr Q7H30M IV 11/13/17 10:30 12/13/17 10:29 11/13/17 16:13 30 MLS/HR
[2017-11-13] MEDS ORDERED: NITROGLYCERIN 0.4 MG SL PER TAB CHARGE SL STA (19:28)
[2017-11-13] MEDS: NITROGLYCERIN 0.4 MG SL PER TAB CHARGE SL PRN (19:33)
--- NOTE | 2017-11-13 19:36 | Cardiology Progress Note ---
Cardiology Progress Note Date of Service Nov 13, 2017. Cardiology Progress Note Patient assessed for acute chest pain after ambulating to [facility]. EKG revealed AF at [address] changes. BP is stable. Symptoms improved with rest when back in bed. Will proceed with SL nitro. Pt already anticoagulated with Eliquis. 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 Continue to follow .
[2017-11-14] VITALS (26 sets, daily range): BP systolic 100–152; BP diastolic 65–99; PULSE 61–114; TEMP 36.7–37.2; O2SAT 93–100
[2017-11-14] MEDS ORDERED: INSULIN IV INFUSION PROTOCOL SCH (02:30)
[2017-11-14] MEDS ORDERED: INSULIN REGULAR 250 UNITS in SODIUM CHLORIDE 0.9% 250ML 250 ML IV SCH (03:00)
[2017-11-14] MEDS ORDERED: NovoLIN R BOLUS FROM BAG IV ONE (03:00)
--- NOTE | 2017-11-14 03:31 | Critical Care Progress Note ---
Critical Care Progress Note Date of Service Nov 14, 2017. ICU Day ICU Day Number: [address] Meng Subjective Pt sleeping comfortably, no acute events overnight. Rates remained in 110s, and down to 96. Pt endorses weeks long history of an ulcer on the bottom of her right foot. Says she is seen by wound care at [facility]. Has been putting aquaporin on it daily since. Objective GENERAL: Awake, alert, in no distress. Obese habitus. Breathing room air. HENT: Normocephalic, atraumatic. EYES: Normal conjunctiva. Sclera non-icteric. NECK: Supple. No nuchal rigidity. FROM. RESPIRATORY: Diminished breath sounds bilaterally. CARDIAC: Irregularly irregular rate. Extremities warm and well perfused. Pulses equal. ABDOMEN: Soft, non-distended. No tenderness to palpation. No rebound or guarding. No masses. LOWER EXTREMITIES: Calves are equal size bilaterally. 2+ edema. Some discoloration evident of venous stasis. SCD's in place. ACCESS: LT arm PIV x [address], RT arm PIV x [address] NEURO: Normal sensorium. No sensory or motor deficits noted. SKIN: Some discoloration evident of venous stasis. 1x2 cm ulcerated lesion, non draining wound located in right plantar surface at base of hallux - no sign of crepitus or gangrene. Assessment & Plan (1) STEMI (ST elevation myocardial infarction) (2) Osteoarthritis (3) DM type 2 (diabetes mellitus, type 2) (4) Atrial fibrillation (5) Dyslipidemia (6) Hypertension Reason Critically Ill: 72-year-old female with a significant past medical history of SVT and paroxysmal AFIB, here for acute hypoxic respiratory failure in the setting of congestive heart failure. Neuro - CAM ICU: NEGATIVE No concerns at this time. Cardiac - Cardiac cath 11/10/17 showed severe single vessel coronary artery disease - 80 -90% calcified diffuse mid LAD stenosis - with successful PCI of mid LAD with single drug-eluting stent (3.0 x 34 [place]; post-dilated with 3.75 NC). Echocardiogram 11/11/17 report showed severe wall motion abnormalities of the anterior, anterior septal, lateral and apical myocardium consistent with an infarct of the LAD distribution. Showed ejection fraction is around 20%. Repeat catheterization 11/11/17 found vessels sufficiently patent, no further intervention at that time. Limited thoracic ultrasound 11/11/17, showed type B profile bilaterally - confirmed pleural edema and effusion. Not enough to tap. I/O: -4.6 L so far. Goal today another output -1.0L. Continue Lasix 40 BID -- follow creatinine, may need to scale back. Diving Fisher today is still wnl. 1200 mL fluid restriction. Cardiology consult, appreciate recs. Cardioversion scheduled today, pt is NPO. Continue Amiodarone infusion to 1mg/min. Continue Aldactone. Continue Lipitor 80, ASA 81mg, Toprol 100mg qam. Hold lisinopril as pt is a candidate for Entresto and will need to be off lisinopril for 48h. Continue Plavix and Eliquis. Respiratory - 92-94 on Room air. Last ABG 11/11/17 showed 7.42/39/134/25 GI - Currently NPO in prep for possible cardioversion. Once cardiology says ok, can resume AHA and ADA T2 diet. RENAL/LYTES - Hypomagnesemic: 20meq K PO BID, 400mg MgOx PO BID. - Voiding well. No concerns at this time. ENDO - BSG in high 240s. ?2/2 exacerbation of foot ulcer in light of myocardial ischemia and atrial fibrillation for 48 hours vs increased intake - several IV meds were also mixed with D5. Switched to insulin infusion overnight per hyperglycemia protocol, moderate stress dose. This will aid with healing ultimately and optimize recovery. HEME - On Eliquis 5mg BID PO, and plavix 75mg QAM, ASA 81mg as above. Stable H&H. ID - Urine culture negative. Wound culture pending. Treatment as below. INTEGUMENTARY - Diabetic foot ulcer, acute on chronic in context of new leukocytosis: Chronic wound, mild to moderate, at base of right plantar hallux noted. Wound care consulted. XR of foot pending. If neg for osteo, would consider starting empiric TMP -SMX 160/800 PO 2 tab q 12hrs and Amoxicillin-clavulanate 875/125 1 tab PO q 12hrs LINES/IV ACCESS - PIVs intact. DVT PROPHYLAXIS - Eliquis as above. Thank you for allowing us to be part of this patient's care. Please refer to Dr. Meng's documentation for any further recommendations. Resident Physician Supervision Note: Dr. Ashley Dow was resident physician during care of patient. I separately evaluated patient and did history and exam. I discussed the case with the resident and generally agree with the findings and plan. Patient still having atrial fibrillation with rapid ventricular response. Discussed with cardiology will provide sedation services for elective cardioversion. Treating hypomagnesemia. Additionally patient requiring insulin infusion now for hyperglycemia, I am concerned the patient has a foot ulcer on the right foot, we will obtain a radiograph and evaluate for possible osteomyelitis. Patient critically ill due to atrial fibrillation with rapid ventricular response undergoing elective cardioversion today. I have personally spent 35 minutes of critical care time in the direct management of this patient. This is a life/limb threatening event. This includes time spent evaluating patient, direct bedside care, chart review, placing orders, interpretation of diagnostic studies, discussion with consultants, patient, and/or family members regarding treatment decisions, as well as other required patient management activities. This time is exclusive of all separately billable procedures, and teaching time and separate from and in addition to any other critical care service time. Documented By: Domo Meng DO Consults & Procedures Consultants: Cardiology - Dr. Moreno, Dr. Castellanos Procedures: Cardiac catheterization 11/10/17 Cardiac catheterization 11/11/17 Echocardiogram 11/11/17 Data Medications: Current Inpatient Medications Medications (Trade) Dose Ordered Sig/Tasha Route Start Time Stop Time Status Last Admin Dose Admin Miscellaneous (Iv Fluids Completed) 1 ea PRN PRN N/A 11/10/17 16:00 11/10/18 15:59 Nitroglycerin (Nitrostat Tab) 0.4 mg UD PRN SL 11/10/17 16:15 12/10/17 16:14 11/13/17 19:33 0.4 MG Ondansetron HCl (Zofran Inj) 4 mg Q6H PRN IV 11/10/17 16:15 12/10/17 16:14 Clopidogrel Bisulfate (plAVix TAB) 75 mg QAM PO 11/11/17 09:00 12/11/17 08:59 11/13/17 07:46 75 MG Atorvastatin Calcium (Lipitor Tab) 80 mg QAM PO 11/11/17 09:00 12/11/17 08:59 11/13/17 07:48 80 MG Acetaminophen (Tylenol Tab) 650 mg Q4H PRN PO 11/10/17 16:15 12/10/17 16:14 11/10/17 19:12 650 MG Aspirin (Ecotrin Tab) 81 mg DAILY PO 11/11/17 09:00 12/11/17 08:59 11/13/17 07:50 81 MG Calcium/Vitamin D (Caltrate Plus Tab) 2 tab DAILY PO 11/11/17 09:00 12/11/17 08:59 11/13/17 07:45 2 TAB Magnesium Oxide (Mag-Ox Tab) 400 mg BID PO 11/10/17 21:00 12/10/17 20:59 11/13/17 20:55 400 MG Metoprolol Succinate (Toprol Xl Tab) 100 mg QAM PO 11/11/17 09:00 12/11/17 08:59 11/13/17 07:46 100 MG Multivitamins (Multivitamin Tab) 1 tab DAILY PO 11/11/17 09:00 12/11/17 08:59 11/13/17 07:47 1 TAB Oxybutynin Chloride (Ditropan Tab) 5 mg BID PO 11/10/17 21:00 12/10/17 20:59 11/13/17 20:54 5 MG Venlafaxine HCl (effeXOR EXTENDED REL CAP) 75 mg DAILY PO 11/11/17 09:00 12/11/17 08:59 11/13/17 07:45 75 MG Apixaban (Eliquis Tab) 5 mg BID PO 11/11/17 09:00 12/11/17 08:59 11/13/17 20:56 5 MG Glucose (Glucose 40% Gel) 15-30 GRAMS 15 GRAMS... UD PRN PO 11/10/17 17:15 12/10/17 17:14 Glucose (Glucose Chew Tab) 4-8 Tablets 4 Tabl... UD PRN PO 11/10/17 17:15 12/10/17 17:14 Dextrose (Dextrose 50% 50ML Syringe) 25-50ML OF 50% DW IV FOR... UD PRN IV 11/10/17 17:15 12/10/17 17:14 Glucagon (Glucagon Inj) 1 mg UD PRN SQ 11/10/17 17:15 12/10/17 17:14 Furosemide 40 mg/ Syringe 4 ml @ 4 mls/min BID17 IV 11/11/17 21:00 12/11/17 20:59 11/13/17 16:23 4 MLS/MIN Famotidine (Pepcid Tab) 20 mg BID PO 11/12/17 09:00 12/12/17 08:59 11/13/17 20:56 20 MG Potassium Chloride (Klor-Con Tab) 20 meq BID17 PO 11/12/17 09:00 12/12/17 08:59 11/13/17 16:23 20 MEQ Amiodarone HCl (Cordarone Tab) 200 mg TID PO 11/13/17 14:00 12/13/17 13:59 11/13/17 20:57 200 MG Spironolactone (Aldactone Tab) 12.5 mg QAM PO 11/14/17 09:00 12/14/17 08:59 Amiodarone HCl 450 mg/Dextrose 225 ml @ 30 mls/hr Q7H30M IV 11/13/17 10:30 12/13/17 10:29 11/13/17 21:03 30 MLS/HR Insulin Aspart (novoLOG ASPART) [facility] 11/14/17 08:00 12/14/17 07:59 Vital Signs: Date Time Temp Pulse Resp B/P (MAP) Pulse Ox O2 Delivery O2 Flow Rate FiO2 11/14/17 02:01 114 24 102/76 (85) 100 Nasal Cannula 2.0 11/14/17 01:01 104 29 129/92 (104) 98 11/14/17 01:01 104 29 129/92 (104) 98 Nasal Cannula 2.0 11/14/17 00:01 37.1 100 27 152/73 (99) 96 Nasal Cannula 2.0 11/13/17 23:59 93 Nasal Cannula 2.0 11/13/17 23:01 119 35 142/93 (109) 93 11/13/17 22:01 115 32 120/74 (89) 97 Nasal Cannula 2.0 11/13/17 21:00 120 38 133/101 (112) 96 Nasal Cannula 2.0 11/13/17 20:00 140 35 113/96 (102) 97 Nasal Cannula 2.0 11/13/17 20:00 93 Nasal Cannula 2.0 11/13/17 19:17 38.0 130 30 111/98 (102) 88 Room Air 11/13/17 17:00 120 23 11/13/17 16:26 37.1 115 24 148/70 (96) 93 Room Air 11/13/17 16:00 106 31 11/13/17 16:00 94 Room Air 11/13/17 15:26 109 27 144/79 (100) 11/13/17 15:00 115 31 144/79 (100) 92 11/13/17 14:01 108 30 112/77 (89) 11/13/17 14:00 124 20 11/13/17 13:01 125 27 122/80 (94) 92 Room Air 11/13/17 13:00 117 24 11/13/17 12:00 124 32 11/13/17 11:30 94 Room Air 11/13/17 11:01 37.2 130 29 99/77 (84) 92 Room Air 11/13/17 11:00 118 39 92 11/13/17 10:01 125 30 123/79 (94) 90 Room Air 11/13/17 10:00 117 34 92 11/13/17 09:01 133 29 105/86 (92) 90 Room Air 11/13/17 09:00 146 23 94 11/13/17 08:02 37.2 134 32 137/83 (101) 94 Room Air 11/13/17 08:00 130 28 94 11/13/17 07:41 134 11/13/17 07:30 95 Room Air 11/13/17 07:00 103 25 122/83 (96) 93 11/13/17 05:01 36.5 100 25 121/85 (97) 92 Room Air 11/13/17 04:01 97 27 125/82 (96) 91 Room Air 11/13/17 04:00 94 Room Air 11/13/17 03:01 100 24 109/88 (95) 92 Room Air Laboratory Results: Last 24 Hours Test 11/13/17 05:28 11/13/17 05:32 11/13/17 11:19 11/13/17 16:16 White Blood Count 12.41 K/uL Red Blood Count 4.36 M/uL Hemoglobin 11.9 g/dL Hematocrit 37.8 % Mean Corpuscular Volume 86.7 fL Mean Corpuscular Hemoglobin 27.3 pg Mean Corpuscular Hemoglobin Concent 31.5 g/dl Platelet Count 266 K/uL Mean Platelet Volume 9.7 fL Neutrophils (%) (Auto) 72.3 % Lymphocytes (%) (Auto) 16.3 % Monocytes (%) (Auto) 8.7 % Eosinophils (%) (Auto) 2.3 % Basophils (%) (Auto) 0.2 % Neutrophils # (Auto) 8.97 K/uL Lymphocytes # (Auto) 2.02 K/uL Monocytes # (Auto) 1.08 K/uL Eosinophils # (Auto) 0.29 K/uL Basophils # (Auto) 0.02 K/uL RDW Standard Deviation 43.7 fL RDW Coefficient of Variation 13.8 % Immature Granulocyte % (Auto) 0.2 % Immature Granulocyte # (Auto) 0.03 K/uL Sodium Level 136 mmol/L Potassium Level 4.1 mmol/L Chloride Level 102 mmol/L Carbon Dioxide Level 28 mmol/L Anion Gap 6.0 mmol/L Blood Urea Nitrogen 22 mg/dl Creatinine 0.74 mg/dl Est Creatinine Clear Calc Drug Dose 92.8 ml/min Estimated GFR () 93.2 Estimated GFR (Non- 80.4 BUN/Creatinine Ratio 29.9 Random Glucose 176 mg/dl Calcium Level 8.6 mg/dl Phosphorus Level 3.1 mg/dl Magnesium Level 2.0 mg/dl Bedside Glucose 172 mg/dl 235 mg/dl 149 mg/dl Test 11/13/17 20:50 11/14/17 02:00 Bedside Glucose 230 mg/dl 240 mg/dl Resident Tracking Resident Involvement: Resident Care Provided Care Provided: Adult Hospital Medicine Problem Qualifiers (1) STEMI (ST elevation myocardial infarction): Involved coronary artery: unspecified coronary artery Qualified Codes: I21.3 - ST elevation (STEMI) myocardial infarction of unspecified site
[2017-11-14] MEDS: D5W IV SCH ×8 (05:41→22:33)
[2017-11-14] MEDS: POLYOLEFIN IV SCH ×8 (05:41→22:33)
[2017-11-14] MEDS: AMIODARONE IV SCH ×8 (05:41→22:33)
[2017-11-14 06:08] LABS: HEMATOCRIT 37.3 % (37-47); HEMOGLOBIN 11.9 g/dL (12.0-16.0); MEAN CELL VOLUME 85.9 fL (80-100); MEAN CORPUSCULAR HEMOGLOBIN 27.4 pg (25-34); MEAN CORPUSCULAR HGB CONC 31.9 g/dl (32-36); MEAN PLATELET VOLUME 9.6 fL (7.4-10.4); PLATELET COUNT 297 K/uL (130-400); RED CELL DISTRIBUTION WIDTH CV 13.6 % (11.5-14.5); RED CELL DISTRIBUTION WIDTH SD 42.7 fL (36.4-46.3); WHITE BLOOD COUNT 12.59 K/uL (4.8-10.8)
[2017-11-14 06:27] LABS: CALCIUM 8.5 mg/dl (8.5-10.1); CREATININE 0.75 mg/dl (0.60-1.20); POTASSIUM 4.4 mmol/L (3.5-5.1)
[2017-11-14] MEDS ORDERED: MAGNESIUM SULFATE 1GM / D5W 1 GM in PREMIXED IN D5W 100 ML IV STA (07:08)
[2017-11-14] MEDS: METOPROLOL SUCC 50MG EXT REL TAB PO SCH (07:55)
[2017-11-14] MEDS: OXYBUTYNIN CHLORIDE 5 MG TAB PO SCH ×2 (07:55→20:39)
[2017-11-14] MEDS: ATORVASTATIN 40 MG TAB PO SCH (07:56)
[2017-11-14] MEDS: AMIODARONE 200 MG TAB PO SCH ×3 (07:56→20:41)
[2017-11-14] MEDS: CLOPIDOGREL BISULFATE 75 MG TAB PO SCH (07:56)
[2017-11-14] MEDS: MAGNESIUM OXIDE 400 MG TAB PO SCH ×2 (07:57→20:39)
[2017-11-14] MEDS: FAMOTIDINE 20 MG TAB PO SCH ×2 (07:57→20:39)
[2017-11-14] MEDS: ASPIRIN 81 MG ECTAB PO SCH (07:57)
[2017-11-14] MEDS: APIXABAN 2.5 MG TAB PO SCH ×2 (07:57→20:40)
[2017-11-14] MEDS: VENLAFAXINE HCL XR 75 MG CAPXR PO SCH (07:57)
[2017-11-14] MEDS: INSULIN ASPART 100 UNITS/ML 3 ML PEN SC SCH ×4 (08:00→20:38)
[2017-11-14] MEDS ORDERED: MAGNESIUM SULFATE 1GM / D5W 1 GM in PREMIXED IN D5W 100 ML IV ONE (08:15)
--- NOTE | 2017-11-14 08:52 | Pre Sedation Assessment ---
Pre Sedation Assessment General Date of Sedation: Nov 14, 2017. Vital Signs Past 12 Hours Date Time Temp Pulse Resp B/P (MAP) Pulse Ox O2 Delivery O2 Flow Rate FiO2 11/14/17 06:00 105 26 131/99 (110) 93 11/14/17 05:45 97 25 98 11/14/17 04:01 36.8 103 29 120/67 (84) 97 11/14/17 04:00 93 Nasal Cannula 2.0 11/14/17 02:01 114 24 102/76 (85) 100 Nasal Cannula 2.0 11/14/17 01:01 104 29 129/92 (104) 98 11/14/17 01:01 104 29 129/92 (104) 98 Nasal Cannula 2.0 11/14/17 00:01 37.1 100 27 152/73 (99) 96 Nasal Cannula 2.0 11/13/17 23:59 93 Nasal Cannula 2.0 11/13/17 23:01 119 35 142/93 (109) 93 11/13/17 22:01 115 32 120/74 (89) 97 Nasal Cannula 2.0 11/13/17 21:00 120 38 133/101 (112) 96 Nasal Cannula 2.0 Review Cardiovascular: no gallop, no JVD, + tachycardia, + irregularly irregular Lungs: chest non-tender, lungs clear, no respiratory distress Pre-Sedation Airway Assessment Smoking Status: Former Smoker Hx of Sleep Apnea: No Hx of difficult intubation: No Short Thick Neck: No Thyro-mental Distance: > 3 Finger Breadths Oral Cavity: Dental Abnormalities Mallampati Classification: Class III ASA Classification: Class IV NPO Status Date of Last Intake of Fluids: Nov 13, 2017 Date of Last Intake of Solids: Nov 13, 2017 Procedure Planning Contraindications for Sedation: None Current Medications Reviewed: Yes Notes The planned sedation has been discussed with the patient. Informed Consent was obtained. I have identified the patient, determined the appropriateness of sedation and have assessed the patient immediately prior to the procedure. All medicine(s) and interventions are by my order.
[2017-11-14] MEDS ORDERED: PERFLUTREN LIPID MICROSPHERE (DEFINITY) IV ONE (08:56)
[2017-11-14] MEDS ORDERED: ETOMIDATE 2 MG/ML 20 ML VIAL IV ONE ×2 (09:00)
[2017-11-14] MEDS ORDERED: FENTANYL CITRATE INJ 50 MCG/1 ML 2 ML VIAL IV ONE (09:00)
--- NOTE | 2017-11-14 09:00 | Cardiology Follow-Up ---
Subjective General Date of Service: Nov 14, 2017. Chief Complaint: follow up chest pain, shortness of breath Pt evaluation today including: conversation w/ patient, physical exam History of Present Illness The patient is a 72 year old female seen in follow up. Since evaluated by the undersigned last evening for chest pain after walking to commode, felt well overnight. Remains in AF, however rate is better controlled at 99 bpm at rest. Allergies Coded Allergies: Cetirizine & Related (Verified Allergy, Intermediate, ANAPHYLAXIS, 10/13/17 ) Hallucinations Hydroxyzine (Verified Allergy, Unknown, 10/13/17) Social History Smoking Status: Former Smoker Hx Tobacco Use In Past Year?: No Hx Alcohol Use - Type And Amou: No Hx Substance Use - Type And Am: No Problem List Medical Problems: (1) Elevated WBC count Status: Acute (2) Hyperglycemia Status: Acute (3) Hyperkalemia Status: Acute (4) STEMI (ST elevation myocardial infarction) Status: Acute (5) SVT (supraventricular tachycardia) Status: Acute Physical Exam Vital Signs Last Vital Signs Documentation Date Time Temp Pulse Resp B/P (MAP) Pulse Ox O2 Delivery O2 Flow Rate FiO2 11/14/17 06:00 105 26 131/99 (110) 93 11/14/17 04:01 36.8 11/14/17 04:00 Nasal Cannula 2.0 11/12/17 06:01 40 Physical Exam Constitutional: Level of Distress: NAD ENMT: hearing grossly normal Neck: supple, trachea midline Lungs: Auscultation: no rhonchi, pertinent finding (mildly decreased BS at the bases.) Cardiovascular: Heart Auscultation: no murmurs, no rubs, irregular rate rhythm Extremities: pertinent finding (trace LE edema) Neurologic: Gait & Station: pertinent finding (no focal deficits ) Assessment and Plan Assessment and Plan IMPRESSION: 1. Presented 11/10/17 with chest pain, non ST elevation acute coronary syndrome, had emergent cardiac cath, ISABEL to LAD, residual Cx territory disease, non amenable to PCI treated medically. 2. Recurrent chest pain, new CHF 11/11/17 prompting repeat cath, Stable findings with patent LAD stent. 3. Acute , newly diagnosed systolic heart failure, new LAD wall motion abnormality this admission, severe LV systolic dysfunction, not present 09/2017, Question of timing of insult regarding this week or more remote (sometime within the last month since prior echo) 4. History of supraventricular tachycardia, episode of 200 bpm required urgent cardioversion 09/2017 5. Persistent atrial fibrillation, onset 11/12/17 6. hypomagnesemia, level 1.5 mg/dl am of 11/14/17 7. Leukocytosis, chronic right sided diabetic foot ulcer PLAN: Limited echo, at bedside to reassess LV systolic function. Question if there is a superimposed tachycardia related cardiomyopathy component , as had significant persistent sinus tachycardia earlier in admission prior to the AF, HR was 140s at the time of the echocardiogram. Replace magnesium. Remains in AF despite metoprolol, IV and Oral amiodarone. Pt symptomatic with minimal walking. Recommend proceeding with direct current cardioversion. Eliquis started on 10/14/17. Missed 1 dose pm of 11/10/17 post cardiac cath, and resumed by 11/11/17. With only 1 missed dose of Eliquis in 1 month, and episode of AF had been < 48 hours, risk of stroke is low. Continue diuretic therapy, other medications. Received Eliquis this am. Laboratory Results Last 24 Hours Test 11/13/17 11:19 11/13/17 16:16 11/13/17 20:50 11/14/17 02:00 Bedside Glucose 235 mg/dl 149 mg/dl 230 mg/dl 240 mg/dl Test 11/14/17 04:11 11/14/17 05:05 11/14/17 05:37 11/14/17 05:45 Bedside Glucose 166 mg/dl 165 mg/dl 160 mg/dl White Blood Count 12.59 K/uL Red Blood Count 4.34 M/uL Hemoglobin 11.9 g/dL Hematocrit 37.3 % Mean Corpuscular Volume 85.9 fL Mean Corpuscular Hemoglobin 27.4 pg Mean Corpuscular Hemoglobin Concent 31.9 g/dl RDW Standard Deviation 42.7 fL RDW Coefficient of Variation 13.6 % Platelet Count 297 K/uL Mean Platelet Volume 9.6 fL Sodium Level 135 mmol/L Potassium Level 4.4 mmol/L Chloride Level 101 mmol/L Carbon Dioxide Level 29 mmol/L Anion Gap 5.0 mmol/L Blood Urea Nitrogen 18 mg/dl Creatinine 0.75 mg/dl Est Creatinine Clear Calc Drug Dose 91.6 ml/min Estimated GFR () 91.7 Estimated GFR (Non- 79.1 BUN/Creatinine Ratio 24.3 Random Glucose 158 mg/dl Calcium Level 8.5 mg/dl Phosphorus Level 3.0 mg/dl Magnesium Level 1.5 mg/dl Troponin I 0.908 ng/ml C-Reactive Protein 11.60 mg/dl Test 11/14/17 08:02 Bedside Glucose 133 mg/dl
[2017-11-14] MEDS ORDERED: FENTANYL CITRATE INJ 50 MCG/1 ML 2 ML VIAL ONE (09:01)
--- NOTE | 2017-11-14 09:09 | Pre Sedation Assessment ---
Pre Sedation Assessment General Date of Sedation: Nov 14, 2017. Vital Signs Past 12 Hours Date Time Temp Pulse Resp B/P (MAP) Pulse Ox O2 Delivery O2 Flow Rate FiO2 11/14/17 06:00 105 26 131/99 (110) 93 11/14/17 05:45 97 25 98 11/14/17 04:01 36.8 103 29 120/67 (84) 97 11/14/17 04:00 93 Nasal Cannula 2.0 11/14/17 02:01 114 24 102/76 (85) 100 Nasal Cannula 2.0 11/14/17 01:01 104 29 129/92 (104) 98 11/14/17 01:01 104 29 129/92 (104) 98 Nasal Cannula 2.0 11/14/17 00:01 37.1 100 27 152/73 (99) 96 Nasal Cannula 2.0 11/13/17 23:59 93 Nasal Cannula 2.0 11/13/17 23:01 119 35 142/93 (109) 93 11/13/17 22:01 115 32 120/74 (89) 97 Nasal Cannula 2.0 Review Cardiovascular: no gallop, no JVD, + tachycardia, + irregularly irregular Lungs: chest non-tender, lungs clear, no respiratory distress Pre-Sedation Airway Assessment Smoking Status: Former Smoker Hx of Sleep Apnea: No Hx of difficult intubation: No Short Thick Neck: No Thyro-mental Distance: > 3 Finger Breadths Oral Cavity: Dental Abnormalities Mallampati Classification: Class III ASA Classification: Class IV NPO Status Date of Last Intake of Fluids: Nov 13, 2017 Date of Last Intake of Solids: Nov 13, 2017 Procedure Planning Contraindications for Sedation: None Current Medications Reviewed: Yes Notes The planned sedation has been discussed with the patient by Dr Meng for sedation and Dr Vaca for cardioversion. Informed Consent was obtained for both sedation and direct current cardioversion. I have identified the patient, determined the appropriateness of sedation and have assessed the patient immediately prior to the procedure. Sedation to be administered per direction of Dr Meng of critical care.
--- NOTE | 2017-11-14 09:12 | Cardiology Progress Note ---
Cardiology Progress Note Date of Service Nov 14, 2017. Cardiology Progress Note Focused bedside echocardiogram performed. Images reviewed at bedside. Severe LV systolic dysfunction noted, with LAD territory wall motion abnormality ( hypokinesis to akinesis) however remaining myocardial segments including the mid and apical lateral wall reveal borderline to mild hypokinesis. Will proceed with cardioversion , with goal of restoring atrioventricular synchrony and improving LV systolic function and symptoms of heart failure. Volume status stable at present.
--- NOTE | 2017-11-14 10:35 | DIAGNOSTIC IMAGING REPORT ---
R FOOT MIN 3 VIEWS ROUTINE CLINICAL HISTORY: 72 years-old Female presenting with FOOT ULCER, RIGHT FOOT. TECHNIQUE: Frontal, oblique, and lateral views the right foot were obtained. COMPARISON: 11/03/2016. FINDINGS: Chronic deformity of the medial aspect of the head of the first metatarsal with erosive changes essentially stable from prior. This is immediately adjacent and overlying bandage and soft tissue swelling, potential he the site of the reported ulcer. No subcutaneous or soft tissue emphysema is radiographically evident. The first metatarsophalangeal joint is spared. Prominent enthesophyte at the insertion of the Achilles tendon. Mild degenerative changes at the ankle mortise. No acute fracture. IMPRESSION: 1. Chronic erosive changes of the first metatarsal head. These have not progressed since the prior radiograph. No convincing evidence of acute osteomyelitis. 2. Suspected wound along the medial soft tissues at the level of the first metatarsophalangeal joint. Electronically signed by: Jonas Olivera M.D. 11/14/2017 10:34 AM Dictated Date/Time: 11/14/2017 10:31 AM
--- NOTE | 2017-11-14 11:03 | Post Sedation Assessment ---
Post Sedation Assessment General Date of Sedation Nov 14, 2017. Vital Signs: Vital Signs Past 12 Hours Date Time Temp Pulse Resp B/P (MAP) Pulse Ox O2 Delivery O2 Flow Rate FiO2 11/14/17 06:00 105 26 131/99 (110) 93 11/14/17 05:45 97 25 98 11/14/17 04:01 36.8 103 29 120/67 (84) 97 11/14/17 04:00 93 Nasal Cannula 2.0 11/14/17 02:01 114 24 102/76 (85) 100 Nasal Cannula 2.0 11/14/17 01:01 104 29 129/92 (104) 98 11/14/17 01:01 104 29 129/92 (104) 98 Nasal Cannula 2.0 11/14/17 00:01 37.1 100 27 152/73 (99) 96 Nasal Cannula 2.0 11/13/17 23:59 93 Nasal Cannula 2.0 Post Procedure Recovery Score Activity: (2) Moves 4 extremities * Respiration: (2) Deep breath/cough Circulation: (2) +/-20% PreAnes Value Consciousness: (2) Fully Awake Oxygen Saturation: (1) O2 needed for >90% Post Anesthesia Score: 9 Discharge Sedation Level of Care: Higher Level of Care Post Sedation Plan On clinical assessment, the patient appears to have tolerated the sedation without complications. Patient is recovering as anticipated. Patient is to remain in ICU today and will remain under ICU monitoring guidelines. She is awake alert and following complex commands she does not have any recollection of cardioversion Medications used: 100 mcg fentanyl IV; 5 mg etomidate IV 1 Procedure start time 1050 Procedural end time 1058
--- NOTE | 2017-11-14 11:06 | Cardioversion ---
Electricial Cardioversion Rpt Date of Service: 11/14/17 Electrical Cardioversion Rprt Procedure Date Nov 14, 2017. Pre-Procedure Diagnosis symptomatic atrial fibrillation Post-Procedure Diagnosis successful conversion to sinus rhythm Procedure(s) Performed direct current cardioversion Container Filler Lisa Vaca, DO Critical Care Dr Meng Estimated Blood Loss none Preliminary Findings Procedure performed in ICU room 103. After informed consent was obtained and a time out was performed the patient was sedated with the assistance of Dr Meng of critical care receiving 100 mcg of IV fentanyl and 5 mg of IV etomidate. The patient then received a singe dose of 300 J of biphasic energy with successful conversion from atrial fibrillation to sinus rhythm at 60-65 bpm. Patient tolerated the procedure well. Procedure start time 10:50 am. End time 10:58 am. Recommendations Continue IV and oral amiodarone. Continue Eliquis. Complication(s) None Disposition Surgical ICU
[2017-11-14] MEDS: SPIRONOLACTONE 25 MG TAB PO SCH (12:23)
[2017-11-14] MEDS: CALCIUM 600MG + VIT D 400 IU TAB PO SCH (12:24)
[2017-11-14] MEDS: MULTIVITAMIN TAB PO SCH (12:24)
[2017-11-14] MEDS: POTASSIUM CHLORIDE 20 MEQ TABCR PO SCH ×2 (12:24→17:40)
[2017-11-14] MEDS: FUROSEMIDE INJ 40 MG in SYRINGE 0 ML IV SCH ×2 (12:26→17:44)
--- NOTE | 2017-11-14 14:57 | Post Sedation Assessment ---
Post Sedation Assessment General Date of Sedation Nov 14, 2017. Vital Signs: Vital Signs Past 12 Hours Date Time Temp Pulse Resp B/P (MAP) Pulse Ox O2 Delivery O2 Flow Rate FiO2 11/14/17 10:57 36.9 61 16 137/78 (97) 98 Nasal Cannula 2.0 11/14/17 10:45 95 Room Air 11/14/17 10:00 112 20 93 11/14/17 09:00 101 25 93 11/14/17 08:01 107 27 105/75 (85) 99 11/14/17 08:00 93 Room Air 11/14/17 08:00 90 29 94 11/14/17 07:53 36.9 107 28 124/75 (91) 99 Room Air 11/14/17 07:00 96 27 97 11/14/17 06:00 105 26 131/99 (110) 93 11/14/17 05:45 97 25 98 11/14/17 04:01 36.8 103 29 120/67 (84) 97 11/14/17 04:00 93 Nasal Cannula 2.0 Post Procedure Recovery Score Activity: (2) Moves 4 extremities * Respiration: (2) Deep breath/cough Circulation: (2) +/-20% PreAnes Value Consciousness: (2) Fully Awake Oxygen Saturation: (1) O2 needed for >90% Post Anesthesia Score: 9 Discharge Sedation Level of Care: Higher Level of Care Post Sedation Plan On clinical assessment, the patient appears to have tolerated the sedation without complications. Patient is recovering as anticipated. Medications used: 100 mcg fentanyl IV; 5 mg etomidate IV 1 Procedure start time 1050 Procedural end time 1058
--- NOTE | 2017-11-14 15:00 | ECHOCARDIOGRAM REPORT ---
*NOTICE TO RECEIVING DEMOCRAT AGENCY This information is strictly Confidential and protected under [place] law. [place] law prohibits you from making any further disclosure of this information unless further disclosure is expressly permitted by the written consent of the person to whom it pertains or is authorized by law. A general authorization for the release of medical or other information is not sufficient for this purpose. Hospital accepts no responsibility if the information is made available to any other person, INCLUDING THE PATIENT. Interpretation Summary * Name: ISIDRO MURPHY Study Date: 11/14/2017 08:42 AM BP: 131/99 mmHg * Patient Location: .MSICU\S\E103\S\1 HR: 105 * : 1945 (M/d/) Gender: Female Height: 64 in * Age: 72 yrs Ethnicity: [place] Weight: 278 lb * Ordering Physician: Tristian Vaca DO, [facility] * Performed By: Rimma Erickson RDCS * * Reason For Study: CHF, CARDIOMYOPATHY, TACHYCARDIA, REASSESS LV EF * BSA: 2.2 m2 * -- Conclusions -- * A focused study was performed per provider request for reassessment of the left ventricular systolic function. * Limited views were therefore obtained. * Atrial fibrillation with ventricular rate of 90-100 bpm was present during the echocardiogram. * There is severe hypokinesis to akinesis of the anteroseptal and inferoseptal segments at the mid and apical levels. * There is apical hypokinesis. * There is lateral wall hypokinesis of the mid and apical levels. * Left ventricular systolic function is severely reduced. * Left ventricle ejection Fraction = 20-25%. * There is a large LAD coronary territory wall motion abnormality, with there is borderline to mild hypokinesis of the remaining myocardial segments also. * Compared to the prior echocardiogram performed 11/11/17, ejection fraction is relatively unchanged. * There is been a significant decline in ejection fraction compared to the prior study performed 10/14/17. Procedure Details * A contrast injection of Definity was performed to improve assessment of LV function. * Contrast was injected into an intravenous site in the right arm. * One vial of Definity ultrasound contrast was diluted in normal saline to a total volume of 10 ml. A total of '3' ml of solution was administered during imaging. * Lot # [id number] of Definity utilized for procedure. * Expiration date 11/18. * The attending nurse who injected the contrast agent was GIOVANNA CADE RN. Left Ventricle * The left ventricle is normal in size. * There is mild concentric left ventricular hypertrophy. * Left ventricular systolic function is severely reduced. * Ejection Fraction = 20-25%. * There is severe hypokinesis to akinesis of the anteroseptal and inferoseptal segments at the mid and apical levels. There is apical hypokinesis. There is lateral wall hypokinesis of the mid and apical levels. Right Ventricle * The right ventricle is normal in size and function. Atria * The left atrium is mildly dilated. Mitral Valve * There is mild mitral annular calcification. Pericardium/Pleural * There is no pericardial effusion. MMode 2D Measurements and Calculations IVSd 1.2 cm IVSs 1.6 cm LVIDd 5.2 cm LVIDs 3.8 cm LVPWd 1.9 cm LVPWs 1.9 cm IVS/LVPW 0.61 FS 28.1 % EDV(Teich) 130.5 ml ESV(Teich) 60.1 ml EF(Teich) 54.0 % EDV(cubed) 142.0 ml ESV(cubed) 52.8 ml EF(cubed) 62.8 % % IVS thick 31.5 % % LVPW thick -2.68 % LV mass(C)d 368.5 grams LV mass(C)dI 163.8 grams/m\S\2 LV mass(C)s 269.5 grams LV mass(C)sI 119.8 grams/m\S\2 SV(Teich) 70.4 ml SI(Teich) 31.3 ml/m\S\2 SV(cubed) 89.2 ml SI(cubed) 39.7 ml/m\S\2 LVAd ap4 36.0 cm\S\2 LVLd ap4 7.9 cm EDV(MOD-sp4) 128.1 ml EDV(sp4-el) 139.4 ml LVAs ap4 23.2 cm\S\2 LVLs ap4 7.1 cm ESV(MOD-sp4) 61.9 ml ESV(sp4-el) 64.0 ml EF(MOD-sp4) 51.7 % EF(sp4-el) 54.1 % LVAd ap2 24.5 cm\S\2 LVLd ap2 6.8 cm EDV(MOD-sp2) 69.9 ml EDV(sp2-el) 74.3 ml LVAs ap2 17.1 cm\S\2 LVLs ap2 7.2 cm ESV(MOD-sp2) 32.5 ml ESV(sp2-el) 34.8 ml EF(MOD-sp2) 53.5 % EF(sp2-el) 53.2 % LVLd %diff -15.44 % EDV(MOD-bp) 101.5 ml LVLs %diff 0.65 % ESV(MOD-bp) 44.2 ml EF(MOD-bp) 56.5 % SV(MOD-sp4) 66.2 ml SI(MOD-sp4) 29.4 ml/m\S\2 SV(MOD-sp2) 37.4 ml SI(MOD-sp2) 16.6 ml/m\S\2 SV(MOD-bp) 57.4 ml SI(MOD-bp) 25.5 ml/m\S\2 SV(sp4-el) 75.3 ml SI(sp4-el) 33.5 ml/m\S\2 SV(sp2-el) 39.5 ml SI(sp2-el) 17.6 ml/m\S\2
[2017-11-14] MEDS ORDERED: PHARMACY GLYCEMIC MGMT CONSULT PRN (16:45)
[2017-11-14] MEDS ORDERED: INSULIN GLARGINE SOLOSTAR 100 UNITS/ML 3 ML PEN SC ONE (16:45)
--- NOTE | 2017-11-14 19:01 | Progress Note ---
Medicine Progress Note Date & Time of Visit: Nov 14, 2017 at 18:53. Subjective Pt was seen and examined Sitting in chair comfortable watching TV Pt said was successfully cardioverted today She said that she feels fine She said that her strength is getting stronger Denies any chest pain, palpitation, dizziness and SOB Objective Last 8 Hrs Date Time Temp Pulse Resp B/P (MAP) Pulse Ox O2 Delivery O2 Flow Rate FiO2 11/14/17 16:00 36.7 66 19 117/65 (82) 96 Room Air 11/14/17 16:00 96 Room Air 11/14/17 15:00 64 27 115/72 (86) 97 11/14/17 14:01 64 27 100/65 (77) 94 Room Air 11/14/17 14:00 64 28 94 11/14/17 13:55 66 19 130/80 (97) 97 11/14/17 13:00 62 23 133/67 (89) 99 Nasal Cannula 2.0 11/14/17 12:01 67 19 110/71 (84) 98 11/14/17 12:00 63 23 100 11/14/17 10:57 36.9 61 16 137/78 (97) 98 Nasal Cannula 2.0 Physical Exam: General- No acute distress Head- atraumatic Eyes- PERRL, EOMI ENT- oropharynx clear Neck- supple, no JVD Lungs- No wheezing Heart- regular Abdomen- normal bowel sounds, soft Extremities- no calf tenderness Neuro- alert, oriented x 3; PERRL, EOMI Skin- warm & dry Laboratory Results: Last 24 Hours Test 11/13/17 20:50 11/14/17 02:00 11/14/17 04:11 11/14/17 05:05 Bedside Glucose 230 mg/dl 240 mg/dl 166 mg/dl 165 mg/dl Test 11/14/17 05:37 11/14/17 05:45 11/14/17 08:02 11/14/17 09:10 Bedside Glucose 160 mg/dl 133 mg/dl 132 mg/dl White Blood Count 12.59 K/uL Red Blood Count 4.34 M/uL Hemoglobin 11.9 g/dL Hematocrit 37.3 % Mean Corpuscular Volume 85.9 fL Mean Corpuscular Hemoglobin 27.4 pg Mean Corpuscular Hemoglobin Concent 31.9 g/dl RDW Standard Deviation 42.7 fL RDW Coefficient of Variation 13.6 % Platelet Count 297 K/uL Mean Platelet Volume 9.6 fL Erythrocyte Sedimentation Rate 75 mm/hr Sodium Level 135 mmol/L Potassium Level 4.4 mmol/L Chloride Level 101 mmol/L Carbon Dioxide Level 29 mmol/L Anion Gap 5.0 mmol/L Blood Urea Nitrogen 18 mg/dl Creatinine 0.75 mg/dl Est Creatinine Clear Calc Drug Dose 91.6 ml/min Estimated GFR () 91.7 Estimated GFR (Non- 79.1 BUN/Creatinine Ratio 24.3 Random Glucose 158 mg/dl Calcium Level 8.5 mg/dl Phosphorus Level 3.0 mg/dl Magnesium Level 1.5 mg/dl Troponin I 0.908 ng/ml C-Reactive Protein 11.60 mg/dl Test 11/14/17 11:08 11/14/17 12:27 11/14/17 13:57 11/14/17 16:05 Bedside Glucose 145 mg/dl 150 mg/dl 164 mg/dl 123 mg/dl Test 11/14/17 17:33 11/14/17 18:33 Bedside Glucose 211 mg/dl 180 mg/dl Assessment & Plan NSTEMI Presenting with chest pain and shortness of breath on admission n the ED on admission EKG showed subtle ST elevations in 1, 2, and V1 and V2 as well as new T-wave inversions in V1, V2 and V3. Had Cath done yesterday that showed 80-90% LAD lesion and had a drug-eluting stent placed Starting on Aspirin and Plavix and continue eliquis for 1 month, then Plavix and Eliquis for 1 year Continue Statin, Metoprolol and ACEI Developed chest pain this morning Troponin trending up to 3.7 Case discussed with Cardiology and brought her to cardiac cath for eval of the stent that was placed yesterday Widely patent mid LAD stent Will need lifevest before discharge Clinically improved ECHO * The left ventricle is normal in size. * There are severe wall motion abnormalities of the anterior, anterior septal, lateral and apical myocardium consistent with an infarct of the LAD distribution. * The estimated left ventricular ejection fraction is around 20%. * The left atrium is severely dilated. * There is moderate mitral regurgitation. Repeat ECHO 11/14/17 * A focused study was performed per provider request for reassessment of the left ventricular systolic function. * Limited views were therefore obtained. * Atrial fibrillation with ventricular rate of 90-100 bpm was present during the echocardiogram. * There is severe hypokinesis to akinesis of the anteroseptal and inferoseptal segments at the mid and apical levels. * There is apical hypokinesis. * There is lateral wall hypokinesis of the mid and apical levels. * Left ventricular systolic function is severely reduced. * Left ventricle ejection Fraction = 20-25%. * There is a large LAD coronary territory wall motion abnormality, with there is borderline to mild hypokinesis of the remaining myocardial segments also. * Compared to the prior echocardiogram performed 11/11/17, ejection fraction is relatively unchanged. * There is been a significant decline in ejection fraction compared to the prior study performed 10/14/17. ACUTE SYSTOLIC CHF ACUTE RESPIRATORY DISTRESS CXR showed cardiomegaly with volume overload/congestive change and small right pleural effusion. Echo showed left ventricular ejection fraction is around 20%. Continue lasix 40mg BID Starting on Aldactone Saturated well on RA Clinically improves LEUKOCYTOSIS WBC 12.8 K on admission Mildly elevated lactic acid possible related to NSTEMI CXR showed no sign of pneumonia and UA negative for UTI Continue monitor ATRIAL FIBRILLATION HR in the 110 to 120 Starting on amiodarone drip Digoxin d/c Continue monitor HR Cardiology on board Continue Eliquis Scheduled for ablation next month 11/14 S/P successful cardioversion Rate controlled Continue Eliquis Continue amiodarone 200mg TID Continue monitor HTN BP controlled continue metoprolol and lisinopril DM Last Hgb A1c 9. BS elevated Hold oral agents and utilize NovoLog per protocol while hospitalized Will monitor BS closely DVT PROPHYLAXIS On Eliquis Disposition Continue monitor in the ICU Current Inpatient Medications: Current Inpatient Medications Medications (Trade) Dose Ordered Sig/Tasha Route Start Time Stop Time Status Last Admin Dose Admin Miscellaneous (Iv Fluids Completed) 1 ea PRN PRN N/A 11/10/17 16:00 11/10/18 15:59 Nitroglycerin (Nitrostat Tab) 0.4 mg UD PRN SL 11/10/17 16:15 12/10/17 16:14 11/13/17 19:33 0.4 MG Ondansetron HCl (Zofran Inj) 4 mg Q6H PRN IV 11/10/17 16:15 12/10/17 16:14 Clopidogrel Bisulfate (plAVix TAB) 75 mg QAM PO 11/11/17 09:00 12/11/17 08:59 11/14/17 07:56 75 MG Atorvastatin Calcium (Lipitor Tab) 80 mg QAM PO 11/11/17 09:00 12/11/17 08:59 11/14/17 07:56 80 MG Acetaminophen (Tylenol Tab) 650 mg Q4H PRN PO 11/10/17 16:15 12/10/17 16:14 11/10/17 19:12 650 MG Aspirin (Ecotrin Tab) 81 mg DAILY PO 11/11/17 09:00 12/11/17 08:59 11/14/17 07:57 81 MG Calcium/Vitamin D (Caltrate Plus Tab) 2 tab DAILY PO 11/11/17 09:00 12/11/17 08:59 11/14/17 12:24 2 TAB Magnesium Oxide (Mag-Ox Tab) 400 mg BID PO 11/10/17 21:00 12/10/17 20:59 11/14/17 07:57 400 MG Metoprolol Succinate (Toprol Xl Tab) 100 mg QAM PO 11/11/17 09:00 12/11/17 08:59 11/14/17 07:55 100 MG Multivitamins (Multivitamin Tab) 1 tab DAILY PO 11/11/17 09:00 12/11/17 08:59 11/14/17 12:24 1 TAB Oxybutynin Chloride (Ditropan Tab) 5 mg BID PO 11/10/17 21:00 12/10/17 20:59 11/14/17 07:55 5 MG Venlafaxine HCl (effeXOR EXTENDED REL CAP) 75 mg DAILY PO 11/11/17 09:00 12/11/17 08:59 11/14/17 07:57 75 MG Apixaban (Eliquis Tab) 5 mg BID PO 11/11/17 09:00 12/11/17 08:59 11/14/17 07:57 5 MG Glucose (Glucose 40% Gel) 15-30 GRAMS 15 GRAMS... UD PRN PO 11/10/17 17:15 12/10/17 17:14 Glucose (Glucose Chew Tab) 4-8 Tablets 4 Tabl... UD PRN PO 11/10/17 17:15 12/10/17 17:14 Dextrose (Dextrose 50% 50ML Syringe) 25-50ML OF 50% DW IV FOR... UD PRN IV 11/10/17 17:15 12/10/17 17:14 Glucagon (Glucagon Inj) 1 mg UD PRN SQ 11/10/17 17:15 12/10/17 17:14 Furosemide 40 mg/ Syringe 4 ml @ 4 mls/min BID17 IV 11/11/17 21:00 12/11/17 20:59 11/14/17 17:44 4 MLS/MIN Famotidine (Pepcid Tab) 20 mg BID PO 11/12/17 09:00 12/12/17 08:59 11/14/17 07:57 20 MG Potassium Chloride (Klor-Con Tab) 20 meq BID17 PO 11/12/17 09:00 12/12/17 08:59 11/14/17 17:40 20 MEQ Amiodarone HCl (Cordarone Tab) 200 mg TID PO 11/13/17 14:00 12/13/17 13:59 11/14/17 14:30 200 MG Spironolactone (Aldactone Tab) 12.5 mg QAM PO 11/14/17 09:00 12/14/17 08:59 11/14/17 12:23 12.5 MG Amiodarone HCl 450 mg/Dextrose 225 ml @ 30 mls/hr Q7H30M IV 11/13/17 10:30 12/13/17 10:29 11/14/17 14:30 30 MLS/HR Insulin Aspart (novoLOG ASPART) SLIDING SCALE [facility] 11/14/17 08:00 11/14/17 22:45 11/14/17 17:45 3 UNITS Insulin Human Regular 250 units/ Sodium Chloride 252.5 ml @ 0 mls/hr Q24H IV 11/14/17 03:00 11/14/17 22:45 11/14/17 03:08 3.4 MLS/HR Trimethoprim/ Sulfamethoxazole (Septra Ds 800/ 160MG Tab) 2 tab Q12 PO 11/14/17 09:00 11/24/17 08:59 Future Hold Amoxicillin/ Clavulanate Potassium (Augmentin Tab) 875 mg BIDM PO 11/14/17 07:15 11/24/17 07:14 Future Hold Miscellaneous Information (Consult Glycemic Management Pharmacy) 1 ea UD PRN N/A 11/14/17 16:45 12/14/17 16:44 Miscellaneous (Stop Order) 1 ea ONE ONCE N/A 11/14/17 22:45 11/14/17 22:46 Insulin Aspart (novoLOG ASPART) SLIDING SCALE ACHS HI 11/15/17 06:45 12/15/17 06:44 Insulin Aspart (novoLOG ASPART) SLIDING SCALE TODAY@0000,0400 HI 11/15/17 00:00 11/15/17 04:01
--- NOTE | 2017-11-14 19:45 | Pharmacy Progress Note ---
Glycemic Control Intl Consult Date of Service Nov 14, 2017. Scope Glycemic Pharmacist consulted by Dr Meng on 11/14/17 for glycemic control and to write orders per [facility] inpatient glycemic control protocol Objective Weight (Kilograms): 126.300 Accuchecks BSG (last 24hrs): Test 11/13/17 20:50 11/14/17 02:00 11/14/17 04:11 11/14/17 05:05 Bedside Glucose 230 mg/dl (70-90) 240 mg/dl (70-90) 166 mg/dl (70-90) 165 mg/dl (70-90) Test 11/14/17 05:37 11/14/17 05:45 11/14/17 08:02 11/14/17 09:10 Bedside Glucose 160 mg/dl (70-90) 133 mg/dl (70-90) 132 mg/dl (70-90) Random Glucose 158 mg/dl (70-99) Test 11/14/17 11:08 11/14/17 12:27 11/14/17 13:57 11/14/17 16:05 Bedside Glucose 145 mg/dl (70-90) 150 mg/dl (70-90) 164 mg/dl (70-90) 123 mg/dl (70-90) Test 11/14/17 17:33 11/14/17 18:33 11/14/17 19:26 Bedside Glucose 211 mg/dl (70-90) 180 mg/dl (70-90) Laboratory Data (last 24hrs) Test 11/14/17 05:45 Anion Gap 5.0 mmol/L BUN/Creatinine Ratio 24.3 Blood Urea Nitrogen 18 mg/dl Creatinine 0.75 mg/dl Potassium Level 4.4 mmol/L Sodium Level 135 mmol/L White Blood Count 12.59 K/uL HbA1c 9.3% 10/14/17 Recent Pertinent Medications Outpatient Anti-diabetic Regimen: * Trulicity 1.5mg SQ weekly * Glipizide 10mg PO BID * Metformin 500mg TID * A1c = 9.3 % 10/14/17 The patient is currently receiving: * IV insulin infusion per moderate stress protocol, goal range 140-180mg/dL * Prandial insulin: Per carb ratio calculated by insulin infusion rate change calc Risk Factors for Insulin Resistance: * IVF: Amiodarone gtt mixed in D5W * Recent Surgery: cardiac cath 11/10 w/ placement ISABEL; cardiac cath 11/11 * Diet: ordered T2DM/AHA diet Assessment & Plan ASSESSMENT: 11/14/17 * Poorly controlled type 2 diabetic, treated with 3 antidiabetic agents prior to admission, all of which are currently on hold * BSGs climbed last evening and peaked in the 230-240 range and patient was placed on IV insulin infusion per moderate stress protocol * Since insulin drip started BSGs have been much better controlled and have remained in goal for ~ 12 hours * Drip did start off at ~3.4 units/hr but has steadily titrated down to 1.8 units/hr and BSG remain at goal. * Of note, the patient dose have 20 units of Lantus on board from 11/13 * Will transition the patient to SQ at this time. It appears that patient was basal deficient leading to the need for an insulin drip. I restart Lantus at a higher dose (based upon moderate stress and weight) * Additional BSG checks overnight and cover with Novolog SQ - should the Lantus dose be inadequate PLAN FOR INPATIENT GLYCEMIC CONTROL: * Lantus 35 units SQ x 1 STAT * DC insulin drip ~6 hours after Lantus given * Lantus/NPH to 18 units SQ BID * BSGs ACHS and at 0000 + 0400 tonight - cover with Novolog SQ * Correction factor 15 mg/dl/unit * Carb ratio 1 unit per 5 grams CHO consumed * Goal range Low 110 mg/dL - High 140 mg/dL * Please note that the plan above was derived based on current level of insulin resistance and hospital stress. These recommendations are appropriate for inpatient admission only. Plan of care upon discharge will need to be reassessed to avoid potential outpatient hypo/hyperglycemia. Thank you.
[2017-11-14] MEDS ORDERED: [UNRECOGNIZED DRUG - REMARK] ONE (22:45)
[2017-11-15] VITALS (33 sets, daily range): BP systolic 94–146; BP diastolic 45–93; PULSE 66–82; TEMP 36.7–37.1; O2SAT 89–95
[2017-11-15] MEDS: INSULIN ASPART 100 UNITS/ML 3 ML PEN SC SCH ×6 (00:09→20:50)
[2017-11-15 06:13] LABS: HEMATOCRIT 36.8 % (37-47); HEMOGLOBIN 11.6 g/dL (12.0-16.0); MEAN CELL VOLUME 85.4 fL (80-100); MEAN CORPUSCULAR HEMOGLOBIN 26.9 pg (25-34); MEAN CORPUSCULAR HGB CONC 31.5 g/dl (32-36); MEAN PLATELET VOLUME 9.6 fL (7.4-10.4); PLATELET COUNT 309 K/uL (130-400); RED CELL DISTRIBUTION WIDTH CV 13.5 % (11.5-14.5); RED CELL DISTRIBUTION WIDTH SD 42.1 fL (36.4-46.3); WHITE BLOOD COUNT 13.12 K/uL (4.8-10.8)
[2017-11-15 06:27] LABS: ALBUMIN 2.4 gm/dl (3.4-5.0); CALCIUM 8.7 mg/dl (8.5-10.1); CREATININE 0.76 mg/dl (0.60-1.20); POTASSIUM 4.8 mmol/L (3.5-5.1)
[2017-11-15 06:35] LABS: PHOSPHORUS 3.6 mg/dl (2.5-4.9); TOTAL PROTEIN 7.1 gm/dl (6.4-8.2)
[2017-11-15] MEDS: POLYOLEFIN IV SCH ×2 (07:12)
[2017-11-15] MEDS: D5W IV SCH ×2 (07:12)
[2017-11-15] MEDS: AMIODARONE IV SCH ×2 (07:12)
[2017-11-15] MEDS: MAGNESIUM OXIDE 400 MG TAB PO SCH ×5 (07:57→20:47)
[2017-11-15] MEDS: AMIODARONE 200 MG TAB PO SCH ×3 (07:58→17:15)
[2017-11-15] MEDS: CLOPIDOGREL BISULFATE 75 MG TAB PO SCH (07:59)
[2017-11-15] MEDS: ATORVASTATIN 40 MG TAB PO SCH (07:59)
[2017-11-15] MEDS: VENLAFAXINE HCL XR 75 MG CAPXR PO SCH (07:59)
[2017-11-15] MEDS: CALCIUM 600MG + VIT D 400 IU TAB PO SCH (07:59)
[2017-11-15] MEDS: METOPROLOL SUCC 50MG EXT REL TAB PO SCH (07:59)
[2017-11-15] MEDS: OXYBUTYNIN CHLORIDE 5 MG TAB PO SCH ×2 (08:01→20:46)
[2017-11-15] MEDS: MULTIVITAMIN TAB PO SCH (08:01)
[2017-11-15] MEDS: APIXABAN 2.5 MG TAB PO SCH ×2 (08:01→20:45)
[2017-11-15] MEDS: FAMOTIDINE 20 MG TAB PO SCH ×2 (08:02→20:48)
[2017-11-15] MEDS: SULFAMETHOXAZOLE/TRIMETHOPRIM DS 800/160MG TAB PO SCH ×2 (08:02→20:47)
[2017-11-15] MEDS: AMOXICILLIN/CLAVULANATE TAB 875 MG TAB PO SCH ×3 (08:03→17:15)
[2017-11-15] MEDS: SPIRONOLACTONE 25 MG TAB PO SCH (08:04)
[2017-11-15] MEDS: ASPIRIN 81 MG ECTAB PO SCH (08:27)
[2017-11-15] MEDS: INSULIN GLARGINE SOLOSTAR 100 UNITS/ML 3 ML PEN SC SCH ×2 (08:29→20:51)
[2017-11-15] MEDS ORDERED: TORSEMIDE 20 MG TAB PO ONE (10:04)
--- NOTE | 2017-11-15 10:09 | Cardiology Follow-Up ---
Subjective General Date of Service: Nov 15, 2017. Chief Complaint: follow up chest pain, shortness of breath Pt evaluation today including: conversation w/ patient, physical exam History of Present Illness The patient is a 72 year old female seen in follow up. Patient feeling well. Denies chest pain. Has mild non productive cough. Telemetry reveals stable SR since cardioversion yesterday. Allergies Coded Allergies: Cetirizine & Related (Verified Allergy, Intermediate, ANAPHYLAXIS, 10/13/17 ) Hallucinations Hydroxyzine (Verified Allergy, Unknown, 10/13/17) Social History Smoking Status: Former Smoker Hx Tobacco Use In Past Year?: No Hx Alcohol Use - Type And Amou: No Hx Substance Use - Type And Am: No Problem List Medical Problems: (1) Elevated WBC count Status: Acute (2) Hyperglycemia Status: Acute (3) Hyperkalemia Status: Acute (4) STEMI (ST elevation myocardial infarction) Status: Acute (5) SVT (supraventricular tachycardia) Status: Acute Physical Exam Vital Signs Last Vital Signs Documentation Date Time Temp Pulse Resp B/P (MAP) Pulse Ox O2 Delivery O2 Flow Rate FiO2 11/15/17 09:34 82 28 123/89 (100) 11/15/17 09:27 94 11/15/17 08:01 36.8 Room Air 11/14/17 13:00 2.0 11/12/17 06:01 40 Physical Exam Constitutional: Level of Distress: NAD ENMT: hearing grossly normal Neck: supple, trachea midline Lungs: Auscultation: no rhonchi, pertinent finding (mildly decreased BS at the bases.) Cardiovascular: Heart Auscultation: RRR, no murmurs, no rubs Extremities: pertinent finding (trace LE edema, varicose veins in LEs) Neurologic: Gait & Station: pertinent finding (no focal deficits ) Assessment and Plan Assessment and Plan IMPRESSION: 1. Presented 11/10/17 with chest pain, non ST elevation acute coronary syndrome, had emergent cardiac cath, ISABEL to LAD, residual Cx territory disease, non amenable to PCI treated medically. 2. Recurrent chest pain, new CHF 11/11/17 prompting repeat cath, Stable findings with patent LAD stent. 3. Acute , newly diagnosed systolic heart failure, new LAD wall motion abnormality this admission, severe LV systolic dysfunction, not present 09/2017, Question of timing of insult regarding this week or more remote (sometime within the last month since prior echo) 4. History of supraventricular tachycardia, episode of 200 bpm required urgent cardioversion 09/2017 5. Persistent atrial fibrillation, onset 11/12/17, DCCV to SR 11/14/17 6. hypomagnesemia 7. Leukocytosis, chronic right sided diabetic foot ulcer PLAN: Limited echo prior to CV revealed continue LV systolic dysfunction. No in SR. DC IV amiodarone. Continue oral load, increase dose to 400 mg TID with meals. DC IV furosemide, start oral torsemide. Continue aldactone. CHRISTINA/ /ARB on hold, plan to start Entresto tomorrow. Continue Eliquis. Stable from my perspective to transfer to telemetry. Laboratory Results Last 24 Hours Test 11/14/17 11:08 11/14/17 12:27 11/14/17 13:57 11/14/17 16:05 Bedside Glucose 145 mg/dl 150 mg/dl 164 mg/dl 123 mg/dl Test 11/14/17 17:33 11/14/17 18:33 11/14/17 19:26 11/14/17 20:32 Bedside Glucose 211 mg/dl 180 mg/dl 182 mg/dl 165 mg/dl Test 11/14/17 21:32 11/14/17 22:39 11/15/17 00:00 11/15/17 04:16 Bedside Glucose 137 mg/dl 123 mg/dl 146 mg/dl 154 mg/dl Test 11/15/17 05:27 11/15/17 05:33 White Blood Count 13.12 K/uL Red Blood Count 4.31 M/uL Hemoglobin 11.6 g/dL Hematocrit 36.8 % Mean Corpuscular Volume 85.4 fL Mean Corpuscular Hemoglobin 26.9 pg Mean Corpuscular Hemoglobin Concent 31.5 g/dl RDW Standard Deviation 42.1 fL RDW Coefficient of Variation 13.5 % Platelet Count 309 K/uL Mean Platelet Volume 9.6 fL Sodium Level 132 mmol/L Potassium Level 4.8 mmol/L Chloride Level 100 mmol/L Carbon Dioxide Level 27 mmol/L Anion Gap 5.0 mmol/L Blood Urea Nitrogen 19 mg/dl Creatinine 0.76 mg/dl Est Creatinine Clear Calc Drug Dose 86.8 ml/min Estimated GFR () 90.2 Estimated GFR (Non- 77.8 BUN/Creatinine Ratio 25.6 Random Glucose 167 mg/dl Calcium Level 8.7 mg/dl Phosphorus Level 3.6 mg/dl Magnesium Level 1.7 mg/dl Total Bilirubin 0.8 mg/dl Direct Bilirubin 0.4 mg/dl Aspartate Amino Transf (AST/SGOT) 25 U/L Alanine Aminotransferase (ALT/SGPT) 34 U/L Alkaline Phosphatase 103 U/L Total Protein 7.1 gm/dl Albumin 2.4 gm/dl Bedside Glucose 165 mg/dl
--- NOTE | 2017-11-15 13:06 | Critical Care Progress Note ---
Critical Care Progress Note Date of Service Nov 15, 2017. Attending Dr. Whitmore Subjective No events occurred overnight, the patient converted to normal sinus rhythm, she was maintained on amiodarone drip and switched to oral amiodarone, today the patient started developing blood-tinged sputum in addition to epistaxis. The patient did not have significant respiratory symptoms whatsoever. Denies any chest pain, no shortness of breath, no orthopnea. Objective GENERAL: Awake, alert, in no distress. Obese habitus. Breathing room air. HENT: Normocephalic, atraumatic. EYES: Normal conjunctiva. Sclera non-icteric. NECK: Supple. No nuchal rigidity. FROM. RESPIRATORY: Diminished breath sounds bilaterally. CARDIAC: Irregularly irregular rate. Extremities warm and well perfused. Pulses equal. ABDOMEN: Soft, non-distended. No tenderness to palpation. No rebound or guarding. No masses. LOWER EXTREMITIES: Calves are equal size bilaterally. 2+ edema. Some discoloration evident of venous stasis. SCD's in place. ACCESS: LT arm PIV x [address], RT arm PIV x [address] NEURO: Normal sensorium. No sensory or motor deficits noted. SKIN: Some discoloration evident of venous stasis. 1x2 cm ulcerated lesion, non draining wound located in right plantar surface at base of hallux - no sign of crepitus or gangrene. Physical exam on 11/15/2017, the patient vital signs remained stable, she is still in normal sinus rhythm, O2 saturation 95%. S1-S2 regular rate and rhythm. Distant breath sounds bilaterally. Abdomen is obese but benign. Venous stasis in the periphery and skin also noted. Neurologically she is intact. Her labs and chest x-ray were reviewed personally and a chest x-ray showed elevation in the right hemidiaphragm which could represent right lower lobe atelectasis versus right hemidiaphragm paralysis. Assessment & Plan 1. A. fib, status post cardioversion,. 2. The patient is anticoagulated for A. fib. Minimal hemoptysis not concerning at this point. 3. History of hypertension hyperlipidemia. 4. None ST elevation [place] status post stenting. 5. Ischemic cardiomyopathy. 6. Infected skin ulcer. Plan: 1. I will continue to monitor the patient's blood-tinged sputum. 2. In case of recurrence, I would proceed with a CAT scan of the chest to evaluate for the right lower lobe. 3. Appreciate Dr. Vaca input from cardiology. 4. Continue with anti-coagulation. 5. Continue with amiodarone. 6. Potassium was stopped due to the other medications that could cause hyperkalemia including Aldactone, Bactrim. 7. Lisinopril will be added today. 8. The patient is orally fed. 9. The patient is already on DVT prophylaxis. 10. Discussed in details with the staff on rounds, with cardiology, appreciate everybody input. Critical care time spent with the patient was 35 minutes. Consults & Procedures Consultants: Cardiology - Dr. Moreno, Dr. Castellanos Procedures: Cardiac catheterization 11/10/17 Cardiac catheterization 11/11/17 Echocardiogram 11/11/17 Data Medications: Current Inpatient Medications Medications (Trade) Dose Ordered Sig/Tasha Route Start Time Stop Time Status Last Admin Dose Admin Miscellaneous (Iv Fluids Completed) 1 ea PRN PRN N/A 11/10/17 16:00 11/10/18 15:59 Nitroglycerin (Nitrostat Tab) 0.4 mg UD PRN SL 11/10/17 16:15 12/10/17 16:14 11/13/17 19:33 0.4 MG Ondansetron HCl (Zofran Inj) 4 mg Q6H PRN IV 11/10/17 16:15 12/10/17 16:14 Clopidogrel Bisulfate (plAVix TAB) 75 mg QAM PO 11/11/17 09:00 12/11/17 08:59 11/15/17 07:59 75 MG Atorvastatin Calcium (Lipitor Tab) 80 mg QAM PO 11/11/17 09:00 12/11/17 08:59 11/15/17 07:59 80 MG Acetaminophen (Tylenol Tab) 650 mg Q4H PRN PO 11/10/17 16:15 12/10/17 16:14 11/10/17 19:12 650 MG Aspirin (Ecotrin Tab) 81 mg DAILY PO 11/11/17 09:00 12/11/17 08:59 11/15/17 08:27 81 MG Calcium/Vitamin D (Caltrate Plus Tab) 2 tab DAILY PO 11/11/17 09:00 12/11/17 08:59 11/15/17 07:59 2 TAB Magnesium Oxide (Mag-Ox Tab) 400 mg BID PO 11/10/17 21:00 12/10/17 20:59 11/15/17 08:28 400 MG Metoprolol Succinate (Toprol Xl Tab) 100 mg QAM PO 11/11/17 09:00 12/11/17 08:59 11/15/17 07:59 100 MG Multivitamins (Multivitamin Tab) 1 tab DAILY PO 11/11/17 09:00 12/11/17 08:59 11/15/17 08:01 1 TAB Oxybutynin Chloride (Ditropan Tab) 5 mg BID PO 11/10/17 21:00 12/10/17 20:59 11/15/17 08:01 5 MG Venlafaxine HCl (effeXOR EXTENDED REL CAP) 75 mg DAILY PO 11/11/17 09:00 12/11/17 08:59 11/15/17 07:59 75 MG Apixaban (Eliquis Tab) 5 mg BID PO 11/11/17 09:00 12/11/17 08:59 11/15/17 08:01 5 MG Glucose (Glucose 40% Gel) 15-30 GRAMS 15 GRAMS... UD PRN PO 11/10/17 17:15 12/10/17 17:14 Glucose (Glucose Chew Tab) 4-8 Tablets 4 Tabl... UD PRN PO 11/10/17 17:15 12/10/17 17:14 Dextrose (Dextrose 50% 50ML Syringe) 25-50ML OF 50% DW IV FOR... UD PRN IV 11/10/17 17:15 12/10/17 17:14 Glucagon (Glucagon Inj) 1 mg UD PRN SQ 11/10/17 17:15 12/10/17 17:14 Famotidine (Pepcid Tab) 20 mg BID PO 11/12/17 09:00 12/12/17 08:59 11/15/17 08:02 20 MG Spironolactone (Aldactone Tab) 12.5 mg QAM PO 11/14/17 09:00 12/14/17 08:59 11/15/17 08:04 12.5 MG Trimethoprim/ Sulfamethoxazole (Septra Ds 800/ 160MG Tab) 2 tab Q12 PO 11/14/17 09:00 11/24/17 08:59 Future hold 11/15/17 08:02 2 TAB Amoxicillin/ Clavulanate Potassium (Augmentin Tab) 875 mg BIDM PO 11/14/17 07:15 11/24/17 07:14 Future hold 11/15/17 08:26 875 MG Miscellaneous Information (Consult Glycemic Management Pharmacy) 1 ea UD PRN N/A 11/14/17 16:45 12/14/17 16:44 Insulin Aspart (novoLOG ASPART) SLIDING SCALE ACHS SC 11/15/17 06:45 12/15/17 06:44 11/15/17 12:07 13 UNITS Insulin Glargine (Lantus Solostar Pen) 18 units BID SC 11/15/17 09:00 12/15/17 08:59 11/15/17 08:29 18 UNITS Diphenhydramine HCl (Benadryl Cap) 50 mg Q8H PRN PO 11/14/17 22:45 12/14/17 22:44 11/14/17 23:22 50 MG Magnesium Oxide (Mag-Ox Tab) 400 mg Q4H PO 11/15/17 06:45 11/15/17 14:46 11/15/17 10:51 400 MG Amiodarone HCl (Cordarone Tab) 400 mg TIDM PO 11/15/17 11:30 12/15/17 11:29 11/15/17 12:04 400 MG Torsemide (Demadex Tab) 10 mg QAM PO 11/16/17 09:00 12/16/17 08:59 Insulin Aspart (novoLOG ASPART) SLIDING SCALE TODAY@0000,0400 [place] 11/16/17 00:00 11/16/17 04:01 Vital Signs: Date Time Temp Pulse Resp B/P (MAP) Pulse Ox O2 Delivery O2 Flow Rate FiO2 11/15/17 11:50 95 Room Air 11/15/17 11:00 36.8 69 26 95 Room Air 11/15/17 10:18 78 94 11/15/17 10:00 77 26 11/15/17 09:34 82 28 123/89 (100) 11/15/17 09:27 78 25 142/70 (94) 94 11/15/17 09:00 77 34 11/15/17 08:01 36.8 80 23 110/93 (99) 93 Room Air 11/15/17 08:00 79 20 89 11/15/17 08:00 Room Air 11/15/17 07:35 94 Room Air 11/15/17 07:00 71 27 145/78 (100) 91 11/15/17 06:31 72 32 146/80 (102) 91 11/15/17 04:00 Room Air 11/15/17 04:00 37.0 71 32 135/86 (102) 93 Room Air 11/15/17 02:00 76 23 126/80 (95) 94 11/15/17 00:01 37.1 73 33 127/73 (91) 93 Room Air 11/14/17 23:59 Room Air 11/14/17 22:01 76 27 115/75 (88) 93 11/14/17 20:00 75 25 126/99 (108) 96 Room Air 11/14/17 20:00 96 Room Air 11/14/17 19:21 37.2 77 33 139/78 (98) Room Air 11/14/17 16:00 36.7 66 19 117/65 (82) 96 Room Air 11/14/17 16:00 96 Room Air 11/14/17 15:00 64 27 115/72 (86) 97 11/14/17 14:01 64 27 100/65 (77) 94 Room Air 11/14/17 14:00 64 28 94 11/14/17 13:55 66 19 130/80 (97) 97 Laboratory Results: Last 24 Hours Test 11/14/17 13:57 11/14/17 16:05 11/14/17 17:33 11/14/17 18:33 Bedside Glucose 164 mg/dl 123 mg/dl 211 mg/dl 180 mg/dl Test 11/14/17 19:26 11/14/17 20:32 11/14/17 21:32 11/14/17 22:39 Bedside Glucose 182 mg/dl 165 mg/dl 137 mg/dl 123 mg/dl Test 11/15/17 00:00 11/15/17 04:16 11/15/17 05:27 11/15/17 05:33 Bedside Glucose 146 mg/dl 154 mg/dl 165 mg/dl White Blood Count 13.12 K/uL Red Blood Count 4.31 M/uL Hemoglobin 11.6 g/dL Hematocrit 36.8 % Mean Corpuscular Volume 85.4 fL Mean Corpuscular Hemoglobin 26.9 pg Mean Corpuscular Hemoglobin Concent 31.5 g/dl RDW Standard Deviation 42.1 fL RDW Coefficient of Variation 13.5 % Platelet Count 309 K/uL Mean Platelet Volume 9.6 fL Sodium Level 132 mmol/L Potassium Level 4.8 mmol/L Chloride Level 100 mmol/L Carbon Dioxide Level 27 mmol/L Anion Gap 5.0 mmol/L Blood Urea Nitrogen 19 mg/dl Creatinine 0.76 mg/dl Est Creatinine Clear Calc Drug Dose 86.8 ml/min Estimated GFR () 90.2 Estimated GFR (Non- 77.8 BUN/Creatinine Ratio 25.6 Random Glucose 167 mg/dl Calcium Level 8.7 mg/dl Phosphorus Level 3.6 mg/dl Magnesium Level 1.7 mg/dl Total Bilirubin 0.8 mg/dl Direct Bilirubin 0.4 mg/dl Aspartate Amino Transf (AST/SGOT) 25 U/L Alanine Aminotransferase (ALT/SGPT) 34 U/L Alkaline Phosphatase 103 U/L Total Protein 7.1 gm/dl Albumin 2.4 gm/dl Test 11/15/17 11:22 Bedside Glucose 237 mg/dl
--- NOTE | 2017-11-15 19:01 | Progress Note ---
Medicine Progress Note Date & Time of Visit: Nov 15, 2017 at 15:48. Subjective Pt was seen and examined Lying in bed with no distress Pt said that she was sitting on the chair for a few hours She said that she is feeling much better She said that she is breathing better Denies any chest pain, palpitation, fever and SOB Objective Last 8 Hrs Date Time Temp Pulse Resp B/P (MAP) Pulse Ox O2 Delivery O2 Flow Rate FiO2 11/15/17 18:02 71 27 128/55 (79) 11/15/17 18:00 71 32 11/15/17 17:02 68 26 125/45 (71) 11/15/17 17:00 70 25 11/15/17 16:15 95 Room Air 11/15/17 16:01 36.7 69 23 132/58 (82) 94 Room Air 11/15/17 16:00 66 28 91 11/15/17 15:02 78 19 107/70 (82) 91 11/15/17 15:00 74 19 95 11/15/17 14:02 72 28 94/76 (82) 93 Room Air 11/15/17 14:00 71 25 92 11/15/17 13:02 76 32 135/46 (75) 94 Room Air 11/15/17 13:00 77 26 92 11/15/17 12:00 70 26 95 11/15/17 11:50 95 Room Air 11/15/17 11:00 36.8 69 26 95 Room Air Physical Exam: General- No acute distress Head- atraumatic Eyes- PERRL, EOMI ENT- oropharynx clear Neck- supple, no JVD Lungs- No wheezing Heart- regular Abdomen- normal bowel sounds, soft Extremities- no calf tenderness Neuro- alert, oriented x 3; PERRL, EOMI Skin- warm & dry Laboratory Results: Last 24 Hours Test 11/14/17 19:26 11/14/17 20:32 11/14/17 21:32 11/14/17 22:39 Bedside Glucose 182 mg/dl 165 mg/dl 137 mg/dl 123 mg/dl Test 11/15/17 00:00 11/15/17 04:16 11/15/17 05:27 11/15/17 05:33 Bedside Glucose 146 mg/dl 154 mg/dl 165 mg/dl White Blood Count 13.12 K/uL Red Blood Count 4.31 M/uL Hemoglobin 11.6 g/dL Hematocrit 36.8 % Mean Corpuscular Volume 85.4 fL Mean Corpuscular Hemoglobin 26.9 pg Mean Corpuscular Hemoglobin Concent 31.5 g/dl RDW Standard Deviation 42.1 fL RDW Coefficient of Variation 13.5 % Platelet Count 309 K/uL Mean Platelet Volume 9.6 fL Sodium Level 132 mmol/L Potassium Level 4.8 mmol/L Chloride Level 100 mmol/L Carbon Dioxide Level 27 mmol/L Anion Gap 5.0 mmol/L Blood Urea Nitrogen 19 mg/dl Creatinine 0.76 mg/dl Est Creatinine Clear Calc Drug Dose 86.8 ml/min Estimated GFR () 90.2 Estimated GFR (Non- 77.8 BUN/Creatinine Ratio 25.6 Random Glucose 167 mg/dl Calcium Level 8.7 mg/dl Phosphorus Level 3.6 mg/dl Magnesium Level 1.7 mg/dl Total Bilirubin 0.8 mg/dl Direct Bilirubin 0.4 mg/dl Aspartate Amino Transf (AST/SGOT) 25 U/L Alanine Aminotransferase (ALT/SGPT) 34 U/L Alkaline Phosphatase 103 U/L Total Protein 7.1 gm/dl Albumin 2.4 gm/dl Test 11/15/17 11:22 11/15/17 16:17 Bedside Glucose 237 mg/dl 176 mg/dl Assessment & Plan NSTEMI Presenting with chest pain and shortness of breath on admission n the ED on admission EKG showed subtle ST elevations in 1, 2, and V1 and V2 as well as new T-wave inversions in V1, V2 and V3. Had Cath done yesterday that showed 80-90% LAD lesion and had a drug-eluting stent placed Starting on Aspirin and Plavix and continue eliquis for 1 month, then Plavix and Eliquis for 1 year Continue Statin, Metoprolol and ACEI Developed chest pain this morning Troponin trending up to 3.7 Case discussed with Cardiology and brought her to cardiac cath for eval of the stent that was placed yesterday Widely patent mid LAD stent Will need lifevest before discharge Clinically improved significantly ECHO * The left ventricle is normal in size. * There are severe wall motion abnormalities of the anterior, anterior septal, lateral and apical myocardium consistent with an infarct of the LAD distribution. * The estimated left ventricular ejection fraction is around 20%. * The left atrium is severely dilated. * There is moderate mitral regurgitation. Repeat ECHO 11/14/17 * A focused study was performed per provider request for reassessment of the left ventricular systolic function. * Limited views were therefore obtained. * Atrial fibrillation with ventricular rate of 90-100 bpm was present during the echocardiogram. * There is severe hypokinesis to akinesis of the anteroseptal and inferoseptal segments at the mid and apical levels. * There is apical hypokinesis. * There is lateral wall hypokinesis of the mid and apical levels. * Left ventricular systolic function is severely reduced. * Left ventricle ejection Fraction = 20-25%. * There is a large LAD coronary territory wall motion abnormality, with there is borderline to mild hypokinesis of the remaining myocardial segments also. * Compared to the prior echocardiogram performed 11/11/17, ejection fraction is relatively unchanged. * There is been a significant decline in ejection fraction compared to the prior study performed 10/14/17. ACUTE SYSTOLIC CHF ACUTE RESPIRATORY DISTRESS CXR showed cardiomegaly with volume overload/congestive change and small right pleural effusion. Echo showed left ventricular ejection fraction is around 20%. Lasix d/c Starting on Torsemide Continue on Aldactone Cardiology plans to start entresto tomorrow Saturated well on RA Clinically improves LEUKOCYTOSIS WBC 12.8 K on admission Mildly elevated lactic acid possible related to NSTEMI CXR showed no sign of pneumonia and UA negative for UTI Continue monitor ATRIAL FIBRILLATION HR in the 110 to 120 Starting on amiodarone drip Digoxin d/c Continue monitor HR Cardiology on board Continue Eliquis Scheduled for ablation next month 11/15 S/P successful cardioversion Rate controlled Continue Eliquis Amiodarone increased to 400mg TID Continue monitor RIGHT PLANTAR FOOD DIABETIC ULCER Continue daily wound care Wound cx grow gram positive cocci and proteus mirabilis Augmentin and Bactrim Wound care physician consulted HTN BP controlled continue metoprolol and lisinopril DM TYPE 2 Last Hgb A1c 9. BS elevated Hold oral agents and utilize NovoLog per protocol while hospitalized Will monitor BS closely DVT PROPHYLAXIS On Eliquis CODE STATUS FULL CODE Disposition Transfer to telemetry Current Inpatient Medications: Current Inpatient Medications Medications (Trade) Dose Ordered Sig/Tasha Route Start Time Stop Time Status Last Admin Dose Admin Miscellaneous (Iv Fluids Completed) 1 ea PRN PRN N/A 11/10/17 16:00 11/10/18 15:59 Nitroglycerin (Nitrostat Tab) 0.4 mg UD PRN SL 11/10/17 16:15 12/10/17 16:14 11/13/17 19:33 0.4 MG Ondansetron HCl (Zofran Inj) 4 mg Q6H PRN IV 11/10/17 16:15 12/10/17 16:14 Clopidogrel Bisulfate (plAVix TAB) 75 mg QAM PO 11/11/17 09:00 12/11/17 08:59 11/15/17 07:59 75 MG Atorvastatin Calcium (Lipitor Tab) 80 mg QAM PO 11/11/17 09:00 12/11/17 08:59 11/15/17 07:59 80 MG Acetaminophen (Tylenol Tab) 650 mg Q4H PRN PO 11/10/17 16:15 12/10/17 16:14 11/10/17 19:12 650 MG Aspirin (Ecotrin Tab) 81 mg DAILY PO 11/11/17 09:00 12/11/17 08:59 11/15/17 08:27 81 MG Calcium/Vitamin D (Caltrate Plus Tab) 2 tab DAILY PO 11/11/17 09:00 12/11/17 08:59 11/15/17 07:59 2 TAB Magnesium Oxide (Mag-Ox Tab) 400 mg BID PO 11/10/17 21:00 12/10/17 20:59 11/15/17 08:28 400 MG Metoprolol Succinate (Toprol Xl Tab) 100 mg QAM PO 11/11/17 09:00 12/11/17 08:59 11/15/17 07:59 100 MG Multivitamins (Multivitamin Tab) 1 tab DAILY PO 11/11/17 09:00 12/11/17 08:59 11/15/17 08:01 1 TAB Oxybutynin Chloride (Ditropan Tab) 5 mg BID PO 11/10/17 21:00 12/10/17 20:59 11/15/17 08:01 5 MG Venlafaxine HCl (effeXOR EXTENDED REL CAP) 75 mg DAILY PO 11/11/17 09:00 12/11/17 08:59 11/15/17 07:59 75 MG Apixaban (Eliquis Tab) 5 mg BID PO 11/11/17 09:00 5/12/18 08:59 11/15/17 08:01 5 MG Glucose (Glucose 40% Gel) 15-30 GRAMS 15 GRAMS... UD PRN PO 11/10/17 17:15 12/10/17 17:14 Glucose (Glucose Chew Tab) 4-8 Tablets 4 Tabl... UD PRN PO 11/10/17 17:15 12/10/17 17:14 Dextrose (Dextrose 50% 50ML Syringe) 25-50ML OF 50% DW IV FOR... UD PRN IV 11/10/17 17:15 12/10/17 17:14 Glucagon (Glucagon Inj) 1 mg UD PRN SQ 11/10/17 17:15 12/10/17 17:14 Famotidine (Pepcid Tab) 20 mg BID PO 11/12/17 09:00 12/12/17 08:59 11/15/17 08:02 20 MG Spironolactone (Aldactone Tab) 12.5 mg QAM PO 11/14/17 09:00 12/14/17 08:59 11/15/17 08:04 12.5 MG Trimethoprim/ Sulfamethoxazole (Septra Ds 800/ 160MG Tab) 2 tab Q12 PO 11/14/17 09:00 11/24/17 08:59 Future hold 11/15/17 08:02 2 TAB Amoxicillin/ Clavulanate Potassium (Augmentin Tab) 875 mg BIDM PO 11/14/17 07:15 11/24/17 07:14 Future hold 11/15/17 17:15 875 MG Miscellaneous Information (Consult Glycemic Management Pharmacy) 1 ea UD PRN N/A 11/14/17 16:45 12/14/17 16:44 Insulin Aspart (novoLOG ASPART) SLIDING SCALE ACHS SC 11/15/17 06:45 12/15/17 06:44 11/15/17 17:13 3 UNITS Insulin Glargine (Lantus Solostar Pen) 18 units BID SC 11/15/17 09:00 12/15/17 08:59 11/15/17 08:29 18 UNITS Diphenhydramine HCl (Benadryl Cap) 50 mg Q8H PRN PO 11/14/17 22:45 12/14/17 22:44 11/14/17 23:22 50 MG Amiodarone HCl (Cordarone Tab) 400 mg TIDM PO 11/15/17 11:30 12/15/17 11:29 11/15/17 17:15 400 MG Torsemide (Demadex Tab) 10 mg QAM PO 11/16/17 09:00 12/16/17 08:59 Insulin Aspart (novoLOG ASPART) SLIDING SCALE TODAY@0000,0400 [place] 11/16/17 00:00 11/16/17 04:01
[2017-11-16] VITALS (7 sets, daily range): BP systolic 94–122; BP diastolic 61–80; PULSE 69–118; TEMP 36.6–37.1; O2SAT 91–95
[2017-11-16] MEDS: INSULIN ASPART 100 UNITS/ML 3 ML PEN SC SCH ×6 (00:23→22:02)
[2017-11-16 07:15] LABS: CREATININE 0.79 mg/dl (0.60-1.20); POTASSIUM 4.6 mmol/L (3.5-5.1)
[2017-11-16] MEDS ORDERED: AMIODARONE IV BOLUS / DRIP IV STA (08:46)
--- NOTE | 2017-11-16 08:51 | Cardiology Follow-Up ---
Subjective General Date of Service: Nov 16, 2017. Chief Complaint: follow up chest pain, shortness of breath Pt evaluation today including: conversation w/ patient, physical exam History of Present Illness The patient is a 72 year old female seen in follow up. Patient feeling tired this am. At 5:38 am pt reverted to AF at 100-108 bpm. Denies palpitations. Allergies Coded Allergies: Cetirizine & Related (Verified Allergy, Intermediate, ANAPHYLAXIS, 10/13/17 ) Hallucinations Hydroxyzine (Verified Allergy, Unknown, 10/13/17) Social History Smoking Status: Former Smoker Hx Tobacco Use In Past Year?: No Hx Alcohol Use - Type And Amou: No Hx Substance Use - Type And Am: No Problem List Medical Problems: (1) Elevated WBC count Status: Acute (2) Hyperglycemia Status: Acute (3) Hyperkalemia Status: Acute (4) STEMI (ST elevation myocardial infarction) Status: Acute (5) SVT (supraventricular tachycardia) Status: Acute Physical Exam Vital Signs Last Vital Signs Documentation Date Time Temp Pulse Resp B/P (MAP) Pulse Ox O2 Delivery O2 Flow Rate FiO2 11/16/17 05:14 36.8 69 23 121/72 (88) 94 Room Air 11/14/17 13:00 2.0 11/12/17 06:01 40 Physical Exam Constitutional: Level of Distress: NAD ENMT: hearing grossly normal Neck: supple, trachea midline Lungs: Auscultation: no rhonchi, pertinent finding (mildly decreased BS at the bases.) Cardiovascular: Heart Auscultation: RRR, no murmurs, no rubs Extremities: pertinent finding (trace LE edema, varicose veins in LEs) Neurologic: Gait & Station: pertinent finding (no focal deficits ) Assessment and Plan Assessment and Plan IMPRESSION: 1. Presented 11/10/17 with chest pain, non ST elevation acute coronary syndrome, had emergent cardiac cath, ISABEL to LAD, residual Cx territory disease, non amenable to PCI treated medically. 2. Recurrent chest pain, new CHF 11/11/17 prompting repeat cath, Stable findings with patent LAD stent. 3. Acute , newly diagnosed systolic heart failure, new LAD wall motion abnormality this admission, severe LV systolic dysfunction, not present 09/2017, Question of timing of insult regarding this week or more remote (sometime within the last month since prior echo) 4. History of supraventricular tachycardia, episode of 200 bpm required urgent cardioversion 09/2017 5. Persistent atrial fibrillation, onset 11/12/17, DCCV to SR 11/14/17, reverted to AF am 11/16/17 6. hypomagnesemia 7. Leukocytosis, chronic right sided diabetic foot ulcer , Right forearm erythema, at prior IV site PLAN: Resume amiodarone infusion, bolus and gtt. Continue oral amiodarone and oral metoprolol. Continue Eliquis. Start Entresto. Laboratory Results Last 24 Hours Test 11/15/17 11:22 11/15/17 16:17 11/15/17 20:42 11/15/17 23:41 Bedside Glucose 237 mg/dl 176 mg/dl 180 mg/dl 181 mg/dl Test 11/16/17 05:10 11/16/17 05:59 11/16/17 06:07 11/16/17 07:06 Bedside Glucose 157 mg/dl 177 mg/dl 173 mg/dl Sodium Level 135 mmol/L Potassium Level 4.6 mmol/L Chloride Level 100 mmol/L Carbon Dioxide Level 28 mmol/L Anion Gap 7.0 mmol/L Blood Urea Nitrogen 16 mg/dl Creatinine 0.79 mg/dl Est Creatinine Clear Calc Drug Dose 82.7 ml/min Estimated GFR () 86.1 Estimated GFR (Non- 74.3 BUN/Creatinine Ratio 20.8 Random Glucose 165 mg/dl Calcium Level 9.0 mg/dl
[2017-11-16] MEDS: AMOXICILLIN/CLAVULANATE TAB 875 MG TAB PO SCH (08:55)
[2017-11-16] MEDS: AMIODARONE 200 MG TAB PO SCH ×3 (08:55→16:59)
[2017-11-16] MEDS ORDERED: AMIODARONE / D5W 100 ML IV SCH (09:00)
[2017-11-16] MEDS ORDERED: AMIODARONE / D5W 200 ML IV SCH (09:10)
[2017-11-16] MEDS: APIXABAN 2.5 MG TAB PO SCH ×2 (09:11→22:04)
[2017-11-16] MEDS: OXYBUTYNIN CHLORIDE 5 MG TAB PO SCH ×2 (09:11→22:03)
[2017-11-16] MEDS: VENLAFAXINE HCL XR 75 MG CAPXR PO SCH (09:11)
[2017-11-16] MEDS: SPIRONOLACTONE 25 MG TAB PO SCH (09:12)
[2017-11-16] MEDS: METOPROLOL SUCC 50MG EXT REL TAB PO SCH (09:13)
[2017-11-16] MEDS: FAMOTIDINE 20 MG TAB PO SCH ×2 (09:13→22:04)
[2017-11-16] MEDS: TORSEMIDE 20 MG TAB PO SCH (09:13)
[2017-11-16] MEDS: ATORVASTATIN 40 MG TAB PO SCH (09:14)
[2017-11-16] MEDS: ASPIRIN 81 MG ECTAB PO SCH (09:14)
[2017-11-16] MEDS: MULTIVITAMIN TAB PO SCH (09:14)
[2017-11-16] MEDS: CALCIUM 600MG + VIT D 400 IU TAB PO SCH (09:14)
[2017-11-16] MEDS: MAGNESIUM OXIDE 400 MG TAB PO SCH ×2 (09:14→22:04)
[2017-11-16] MEDS: CLOPIDOGREL BISULFATE 75 MG TAB PO SCH (09:14)
[2017-11-16] MEDS: SULFAMETHOXAZOLE/TRIMETHOPRIM DS 800/160MG TAB PO SCH (09:15)
[2017-11-16] MEDS: INSULIN GLARGINE SOLOSTAR 100 UNITS/ML 3 ML PEN SC SCH ×2 (09:16→21:58)
[2017-11-16] MEDS ORDERED: 0.2 MICRON FILTER SET 1 EA IV STA (09:30)
[2017-11-16] MEDS ORDERED: AMIODARONE / D5W 100 ML IV STA (09:30)
[2017-11-16] MEDS: SACUBITRIL-VALSARTAN 24-26 MG TAB PO SCH ×2 (09:48→22:03)
--- NOTE | 2017-11-16 09:58 | Progress Note ---
Internal Med Progress Note Date of Service: Nov 16, 2017. Provider Documentation: SUBJECTIVE: Sitting up on bed, finished breakfast Converted to A. fib with RVR earlier this morning Patient denies of any symptoms of palpitation or shortness of breath during that time Monitor shows atrial fibrillation with heart rate of 110s-120 Patient says she does not feel anything different, concerned about having this irregular repeat episode without any warning sign No shortness of breath, in room air, no complaint of orthopnea, no chest heaviness No fever or chills OBJECTIVE: Vital Signs-as noted below Exam: General-very pleasant, no sign of distress noted Eyes-sclera nonicteric ENT-moist oral mucosa Neck-no JVD, no thyromegaly, no carotid bruit Lungs-bibasilar rales Heart-irregular Abdomen-obese, soft nontender Extremities-RIGHT MID ARM: Increased swelling/erythema/increased warmth/ tenderness noted At the site of IV infiltration Possible thrombophlebitis/patient is already on Eliquis Continue pain control/limit elevation/cold compression-patient is counseled at bedside NONHEALING INFECTED WOUND on the plantar side of great to on right, bandage present wound check after removal of bandage shows deep infected wound with purulent base, serosanguineous drainage Neuro-no focal neurological deficit, alert awake oriented 3 Lab data as noted below. ASSESSMENT & PLAN: NON-ST ELEVATED OK Presented with EKG change with subtle ST elevation in lead I, II and in V1 V2, new T-wave inversion in V1, V2 and V3 Underwent cardiac cath: Showed 80-90% LAD lesion had drug-eluting stent placed Patient started with aspirin Plavix will need dual antiplatelet therapy for 1 month Patient is already on Eliquis for chronic A. fib Afterwards will need combination of Plavix and Eliquis for at least one year Patient will be continued with statin metoprolol and CHRISTINA Repeat cardiac cath done for symptomatic chest pain elevated troponin post-cath Showed widely patent mid LAD stent Echo on 11/14/2017 left ventricular EF of 20-25% Severe hypokinesis to akinesis of the anteroseptal and inferoseptal segments at the mid and apical level There is apical hypokinesis/large LAD coronary artery territory abnormality -Appreciate input from cardiology -Patient will continue with cardiac meds including aspirin Plavix statin beta iman -referral to cardiac rehab -Cardiology following closely, appreciate input SEVERE ISCHEMIC CARDIOMYOPATHY -Due to above -EF less than 25% -With severe wall motion abnormality -Continue with diuretics ACUTE CHF WITH SYSTOLIC DYSFUNCTION Due to severe cardiomyopathy Patient is on torsemide/ Aldactone CHRISTINA inhibitor is discontinued started on Entresto( Secubitril /valsartan ) by Cardiology INFECTED RIGHT PLANTER FOOT INFECTION Nonhealing diabetic foot wound plantar surface of right foot -Wound culture growing Proteus/staph species-pansensitive Mild leukocytosis possibly secondary to above -No fever or chills -Will change antibiotic to IV Rocephin (DC Augmentin/Bactrim) xRAY : 11/14/17 : IMPRESSION: 1. Chronic erosive changes of the first metatarsal head. These have not progressed since the prior radiograph. No convincing evidence of acute osteomyelitis. 2. Suspected wound along the medial soft tissues at the level of the first metatarsophalangeal joint. Ordered for MRI of rt foot with and with out contrast to eval for possible osteomyelitis Wound care following-appreciate input plan for possible debridement -Patient will need continued wound clinic follow-up as an outpatient A. FIB WITH RVR History of chronic A. fib Presents with RVR possibly secondary to non-ST elevated OK/severe cardiomyopathy Was on amiodarone drip/transitioned to oral amiodarone -On beta-iman Converted back to rapid A. fib overnight Appreciate input from cardiology IV amiodarone drip restarted On chronic anticoagulation with Eliquis TYPE 2 DIABETES Recent hemoglobin A1c more than 9 Hold oral antidiabetic medications Insulin sliding scale CODE STATUS: Full code DVT PROPHYLAXIS Eliquis DISPOSITION PT OT evaluation prior to discharge to assess need for SNF referral to cardiac rehab Social service consulted for discharge planning Medicine follow-up with Dr. Sherman at [facility] Close follow-up with [facility] cardiology in outpatient Vital Signs: Date Time Temp Pulse Resp B/P (MAP) Pulse Ox O2 Delivery O2 Flow Rate FiO2 11/16/17 09:00 36.6 118 23 106/72 (83) 94 Room Air 11/16/17 07:30 36.6 107 23 99/68 (78) 94 Room Air 11/16/17 07:30 Room Air 11/16/17 05:14 36.8 69 23 121/72 (88) 94 Room Air 11/16/17 04:00 Room Air 11/15/17 23:59 93 Room Air 11/15/17 23:43 36.8 76 32 134/65 (88) 93 Room Air 11/15/17 20:00 95 Room Air 11/15/17 19:30 36.7 82 25 108/71 (83) 92 Room Air 11/15/17 18:02 71 27 128/55 (79) 11/15/17 18:00 71 32 11/15/17 17:02 68 26 125/45 (71) 11/15/17 17:00 70 25 11/15/17 16:15 95 Room Air 11/15/17 16:01 36.7 69 23 132/58 (82) 94 Room Air 11/15/17 16:00 66 28 91 11/15/17 15:02 78 19 107/70 (82) 91 11/15/17 15:00 74 19 95 11/15/17 14:02 72 28 94/76 (82) 93 Room Air 11/15/17 14:00 71 25 92 11/15/17 13:02 76 32 135/46 (75) 94 Room Air 11/15/17 13:00 77 26 92 11/15/17 12:00 70 26 95 11/15/17 11:50 95 Room Air Lab Results: Results Past 24 Hours Test 11/15/17 16:17 11/15/17 20:42 11/15/17 23:41 11/16/17 05:10 Range/Units Bedside Glucose 176 180 181 157 70-90 mg/dl Test 11/16/17 05:59 11/16/17 06:07 11/16/17 07:06 Range/Units Sodium Level 135 136-145 mmol/L Potassium Level 4.6 3.5-5.1 mmol/L Chloride Level 100 98-107 mmol/L Carbon Dioxide Level 28 21-32 mmol/L Anion Gap 7.0 3-11 mmol/L Blood Urea Nitrogen 16 7-18 mg/dl Creatinine 0.79 0.60-1.20 mg/dl Est Creatinine Clear Calc Drug Dose 82.7 ml/min Estimated GFR () 86.1 Estimated GFR (Non- 74.3 BUN/Creatinine Ratio 20.8 10-20 Random Glucose 165 70-99 mg/dl Calcium Level 9.0 8.5-10.1 mg/dl Bedside Glucose 177 173 70-90 mg/dl
[2017-11-16] MEDS: CEFTRIAXONE SOD INJ 1 GM in DEXTROSE 5% ADD-VANTAGE 50ML 50 ML IV SCH (10:30)
--- NOTE | 2017-11-16 12:36 | Pharmacy Progress Note ---
Glycemic: Assessment & Plan Date of Service Nov 16, 2017. Assessment & Plan The patient is currently receiving 67 units of insulin per day. BSGs ranging 157 - 237 mg/dl over the past 24hrs. Given the need for some overnight coverage and fasting BSGs, will slightly increase lantus. Lunch BSG elevated for the second day in a row. I will tighten the carb ratio accordingly. * Basal insulin: Lantus 20 units every 12 hours * Correctional Insulin: Novolog Correction per scale ACHS, and 0000,0400 Goal Range: Low 110 mg/dL - High 140 mg/dL Correction Factor: 15 mg/dL/unit * Prandial insulin: Per carb ratio of 1 unit per 4 grams CHO consumed Pharmacy will continue to monitor patient daily and write orders per [facility] inpatient glycemic control protocol. Thanks. * Please note that the plan above was derived based on current level of insulin resistance and hospital stress. These recommendations are appropriate for inpatient admission only. Plan of care upon discharge will need to be reassessed to avoid potential outpatient hypo/hyperglycemia.
[2017-11-16] MEDS: AMIODARONE / D5W 200 ML IV SCH (15:29)
[2017-11-16] MEDS ORDERED: POLYETHYLENE (MIRALAX) 17 GM PACK PO PRN (17:45)
--- NOTE | 2017-11-16 22:00 | DIAGNOSTIC IMAGING REPORT ---
MRI THE RIGHT FOREFOOT WITHOUT A WITH GADOLINIUM CLINICAL HISTORY: Great toe plantar ulcer. Evaluate for osteomyelitis. COMPARISON STUDY: Conventional radiographic study dated 11/14/2017 FINDINGS: Imaging was performed in the sagittal axial and coronal planes before and after the administration of 12 cc of intravenous Gadavist. The study is compromised due to patient motion artifact. There is a plantar cutaneous ulceration at the level of the base of the distal phalanx of the great toe. There are no fluid collections to indicate an abscess. There are no areas of T1 marrow edema to indicate osteomyelitis. There is trace joint fluid the level of the interphalangeal joint of the great toe. Arthritic changes are present the level the first metatarsal phalangeal joint. There is moderate dorsal soft tissue edema. There is mild edema within the adductor hallucis muscle. IMPRESSION: 1. Plantar cutaneous ulcer at the level of the base the distal phalanx the great toe 2. No evidence of osteomyelitis 3. No evidence of abscess Electronically signed by: Todd Fleming M.D. 11/16/2017 9:59 PM Dictated Date/Time: 11/16/2017 9:53 PM
[2017-11-16] MEDS: DOCUSATE SODIUM 100 MG CAP PO SCH (22:03)
--- NOTE | 2017-11-16 22:25 | Progress Note ---
Post ICU Progress Note Date & Time Nov 16, 2017 at 22:24 Vital Signs Vital Signs Past 12 Hours Date Time Temp Pulse Resp B/P (MAP) Pulse Ox O2 Delivery O2 Flow Rate FiO2 11/16/17 20:00 91 Room Air 11/16/17 19:18 36.9 99 20 122/80 (94) 91 Room Air 11/16/17 16:00 95 Room Air 11/16/17 16:00 37.1 113 21 107/61 (76) 95 Room Air 11/16/17 12:00 36.6 99 20 94/62 (73) 94 Room Air 11/16/17 12:00 Room Air Notes Mental Status: see Notes Nausea / Vomiting: improving with treatment Pain: adequately controlled Airway Patency, RR, SpO2: stable & adequate BP & HR: stable & adequate Patient is a 72-year-old female who was initially admitted to the hospital for high risk N-STEMI who underwent emergent cardiac catheterization with stent placement to the LAD. After placement, the patient developed acute CHF with respiratory distress requiring BiPAP and diuresis. The patient underwent a second catheterization which demonstrated a patent LAD stent. Patient stay was again complicated by rapid A. fib with RVR requiring cardioversion. She tolerated this well and eventually was medically managed without any return of significant atrial fibrillation or respiratory distress. She was eventually downgraded from ICU status. On evaluation this morning, the patient is resting comfortably. She is sleeping in bed. I did not wish to wake the patient for interview as she is currently comfortable and she was restless the night before with limited sleep. Consider outpatient follow up in 1 to 2 weeks with: Cardiology, PCP Repeat imaging needed: Per admitting services. Follow up cultures: N/A Reviewed progress notes, labs, and inpatient medication list Continue current management Additional recommendations: None at this time. Thank you for allowing us to participate in the care of this patient. At this time, Critical Care Services will sign off on this case. Please feel free to reconsult as needed. Consults & Procedures Consultants: Cardiology - Dr. Moreno, Dr. Castellanos Procedures: Cardiac catheterization 11/10/17 Cardiac catheterization 11/11/17 Echocardiogram 11/11/17
[2017-11-17] VITALS (11 sets, daily range): BP systolic 90–126; BP diastolic 63–85; PULSE 79–106; TEMP 36.4–37; O2SAT 91–96
[2017-11-17] MEDS: INSULIN ASPART 100 UNITS/ML 3 ML PEN SC SCH ×6 (00:21→20:37)
[2017-11-17] MEDS: AMIODARONE / D5W 200 ML IV SCH (03:20)
[2017-11-17 06:46] LABS: HEMATOCRIT 41.8 % (37-47); HEMOGLOBIN 13.3 g/dL (12.0-16.0); MEAN CELL VOLUME 84.8 fL (80-100); MEAN CORPUSCULAR HGB CONC 31.8 g/dl (32-36); MEAN PLATELET VOLUME 9.2 fL (7.4-10.4); PLATELET COUNT 432 K/uL (130-400); RED CELL DISTRIBUTION WIDTH CV 13.7 % (11.5-14.5); RED CELL DISTRIBUTION WIDTH SD 42.2 fL (36.4-46.3); WHITE BLOOD COUNT 15.05 K/uL (4.8-10.8)
[2017-11-17 07:16] LABS: CALCIUM 9.1 mg/dl (8.5-10.1); CREATININE 0.97 mg/dl (0.60-1.20); POTASSIUM 4.6 mmol/L (3.5-5.1)
[2017-11-17] MEDS: FAMOTIDINE 20 MG TAB PO SCH ×2 (07:38→20:38)
[2017-11-17] MEDS: MAGNESIUM OXIDE 400 MG TAB PO SCH ×2 (07:38→20:39)
[2017-11-17] MEDS: APIXABAN 2.5 MG TAB PO SCH ×2 (07:38→20:39)
[2017-11-17] MEDS: AMIODARONE 200 MG TAB PO SCH ×3 (07:39→17:16)
[2017-11-17] MEDS: CLOPIDOGREL BISULFATE 75 MG TAB PO SCH (07:39)
[2017-11-17] MEDS: CALCIUM 600MG + VIT D 400 IU TAB PO SCH (07:39)
[2017-11-17] MEDS: DOCUSATE SODIUM 100 MG CAP PO SCH ×2 (07:39→20:37)
[2017-11-17] MEDS: SACUBITRIL-VALSARTAN 24-26 MG TAB PO SCH ×2 (07:39→20:38)
[2017-11-17] MEDS: OXYBUTYNIN CHLORIDE 5 MG TAB PO SCH ×2 (07:40→20:40)
[2017-11-17] MEDS: VENLAFAXINE HCL XR 75 MG CAPXR PO SCH (07:40)
[2017-11-17] MEDS: ATORVASTATIN 40 MG TAB PO SCH (07:40)
[2017-11-17] MEDS: MULTIVITAMIN TAB PO SCH (07:40)
[2017-11-17] MEDS: METOPROLOL SUCC 50MG EXT REL TAB PO SCH (07:40)
[2017-11-17] MEDS: SPIRONOLACTONE 25 MG TAB PO SCH (07:42)
[2017-11-17] MEDS: TORSEMIDE 20 MG TAB PO SCH (07:43)
[2017-11-17] MEDS: ASPIRIN 81 MG ECTAB PO SCH (07:43)
[2017-11-17] MEDS: INSULIN GLARGINE SOLOSTAR 100 UNITS/ML 3 ML PEN SC SCH ×2 (07:50→20:43)
[2017-11-17] MEDS: CEFTRIAXONE SOD INJ 1 GM in DEXTROSE 5% ADD-VANTAGE 50ML 50 ML IV SCH (10:46)
--- NOTE | 2017-11-17 10:52 | Pharmacy Progress Note ---
Pharmacy Glycemic Short Note 2 Date of Service Nov 17, 2017. OUTPATIENT ANTIDIABETIC REGIMEN: * Trulicity 1.5mg SQ weekly * Glipizide 10mg PO BID * Metformin 500mg TID ASSESSMENT: 11/17/17: * BSGs have ranged 136-229 over the last 24 hours * Over the last 24 hours she has received 69 units of insulin and PO intake has been poor * The current BSG pattern suggests she is still basal insulin deficient - will continue to titrate up Lantus dose * Post-prandial hyperglycemia is improving yet still problematic as our targets are not being met. Will continue to monitor today as CR was changed mid-day yesterday, however would have a low threshold for increasing prandial insulin dose, at least with the breakfast meal as pre-lunch hyperglycemia is a recurrent problem. PLAN FOR INPATIENT GLYCEMIC CONTROL: * Hold outpatient oral diabetes medications * Basal insulin * Lantus [22 units SQ BID (dose increase) * Bolus insulin * NovoLog per scale ACHS and at 0200 tonight * Goal Range: Low 110 mg/dL - High 140 mg/dL (no change) * Correction Factor: 15 mg/dL/unit (no change) * Nutritional / Prandial insulin per carb ratio of 1 unit per 4 grams CHO consumed (no change) PLAN FOR DISCHARGE: * Given A1c > 9 would recommend prompt f/u with PCP or endocrinology on discharge to adjust outpt regimen. * It is possible the glipizide is not having much affect on glycemic control at this time and basal insulin may be needed instead in combo with Trulicity and metformin.
--- NOTE | 2017-11-17 12:37 | Cardiology Follow-Up ---
Subjective General Date of Service: Nov 17, 2017. Chief Complaint: follow up chest pain, shortness of breath Pt evaluation today including: conversation w/ patient, conversation w/ family , physical exam History of Present Illness The patient is a 72 year old female seen in cardiology follow-up. Patient states she is feeling better. She is optimistic that she is getting ready to go home. She remains on an IV amiodarone infusion. Atrial fibrillation remains present having reverted from sinus rhythm to atrial fibrillation on 11/16 at 5:38 AM. She has remained bedbound and in the bedside chair for about the last week, and has not started to walk yet other than going to the bathroom. Allergies Coded Allergies: Cetirizine & Related (Verified Allergy, Intermediate, ANAPHYLAXIS, 10/13/17 ) Hallucinations Hydroxyzine (Verified Allergy, Unknown, 10/13/17) Social History Smoking Status: Former Smoker Hx Tobacco Use In Past Year?: No Hx Alcohol Use - Type And Amou: No Hx Substance Use - Type And Am: No Problem List Medical Problems: (1) Elevated WBC count Status: Acute (2) Hyperglycemia Status: Acute (3) Hyperkalemia Status: Acute (4) STEMI (ST elevation myocardial infarction) Status: Acute (5) SVT (supraventricular tachycardia) Status: Acute Physical Exam Vital Signs Last Vital Signs Documentation Date Time Temp Pulse Resp B/P (MAP) Pulse Ox O2 Delivery O2 Flow Rate FiO2 11/17/17 12:00 91 Room Air 2.0 40 11/17/17 11:42 36.4 94 20 98/66 (77) Physical Exam Constitutional: Level of Distress: NAD ENMT: hearing grossly normal Neck: supple, trachea midline Lungs: Auscultation: no rhonchi, pertinent finding (mildly decreased BS at the bases.) Cardiovascular: Heart Auscultation: RRR, no murmurs, no rubs Extremities: pertinent finding (trace LE edema, varicose veins in LEs) Neurologic: Gait & Station: pertinent finding (no focal deficits ) Assessment and Plan Assessment and Plan IMPRESSION: 1. Presented 11/10/17 with chest pain, non ST elevation acute coronary syndrome, had emergent cardiac cath, ISABEL to LAD, residual Cx territory disease, non amenable to PCI treated medically. 2. Recurrent chest pain, new CHF 11/11/17 prompting repeat cath, Stable findings with patent LAD stent. 3. Acute , newly diagnosed systolic heart failure, new LAD wall motion abnormality this admission, severe LV systolic dysfunction, not present 09/2017, Question of timing of insult regarding this week or more remote (sometime within the last month since prior echo) 4. History of supraventricular tachycardia, episode of 200 bpm required urgent cardioversion 09/2017 5. Persistent atrial fibrillation, onset 11/12/17, DCCV to SR 11/14/17, reverted to AF am 11/16/17 6. hypomagnesemia 7. Leukocytosis, chronic right sided diabetic foot ulcer (MRI does not suggest osteomyelitis), Right forearm erythema, at prior IV site PLAN: Discontinue IV amiodarone. Continue oral amiodarone load. Change metoprolol succinate to metoprolol tartrate 50 mg 3 times daily for the purposes of titration. Continue Eliquis. Entresto initiated on 11/16/17. Increase activity as tolerated. Consult physical therapy. I have asked for help from case management regarding planning for [employer] life vest wearable defibrillator for discharge. I have asked for help from my office regarding obtaining prior authorization for Entresto so that it will be available at discharge. Laboratory Results Last 24 Hours Test 11/16/17 16:11 11/16/17 20:20 11/17/17 00:11 11/17/17 03:39 Bedside Glucose 190 mg/dl 164 mg/dl 189 mg/dl 136 mg/dl Test 11/17/17 06:26 11/17/17 06:53 White Blood Count 15.05 K/uL Red Blood Count 4.93 M/uL Hemoglobin 13.3 g/dL Hematocrit 41.8 % Mean Corpuscular Volume 84.8 fL Mean Corpuscular Hemoglobin 27.0 pg Mean Corpuscular Hemoglobin Concent 31.8 g/dl RDW Standard Deviation 42.2 fL RDW Coefficient of Variation 13.7 % Platelet Count 432 K/uL Mean Platelet Volume 9.2 fL Sodium Level 133 mmol/L Potassium Level 4.6 mmol/L Chloride Level 101 mmol/L Carbon Dioxide Level 30 mmol/L Anion Gap 2.0 mmol/L Blood Urea Nitrogen 19 mg/dl Creatinine 0.97 mg/dl Est Creatinine Clear Calc Drug Dose 67.4 ml/min Estimated GFR () 67.2 Estimated GFR (Non- 57.9 BUN/Creatinine Ratio 19.5 Random Glucose 152 mg/dl Calcium Level 9.1 mg/dl Magnesium Level 1.9 mg/dl Bedside Glucose 162 mg/dl
[2017-11-17] MEDS: METOPROLOL TARTRATE 50 MG TAB PO SCH ×2 (13:11→20:39)
--- NOTE | 2017-11-17 16:27 | Cardiology Progress Note ---
Cardiology Progress Note Date of Service Nov 17, 2017. Cardiology Progress Note [employer] Life Vest paper order completed, and placed on the front of chart.
--- NOTE | 2017-11-17 17:39 | Progress Note ---
Internal Med Progress Note Date of Service: Nov 17, 2017. Provider Documentation: SUBJECTIVE: Denies of any chest pain or shortness of breath Feels fine Wants to be discharged home today OBJECTIVE: Vital Signs-as noted below Exam: General-very pleasant, no sign of distress noted Eyes-sclera nonicteric ENT-moist oral mucosa Neck-no JVD, no thyromegaly, no carotid bruit Lungs-bibasilar rales Heart-irregular Abdomen-obese, soft nontender Extremities-RIGHT MID ARM: Increased swelling/erythema/increased warmth/ tenderness noted At the site of IV infiltration Possible thrombophlebitis/patient is already on Eliquis Continue pain control/limit elevation/cold compression-patient is counseled at bedside NONHEALING INFECTED WOUND on the plantar side of great to on right, bandage present wound check after removal of bandage shows deep infected wound with purulent base, serosanguineous drainage Neuro-no focal neurological deficit, alert awake oriented 3 Lab data as noted below. ASSESSMENT & PLAN: NON-ST ELEVATED ID No complaint of chest pain or shortness of breath Denies of any orthopnea Presented with EKG change with subtle ST elevation in lead I, II and in V1 V2, new T-wave inversion in V1, V2 and V3 Underwent cardiac cath: Showed 80-90% LAD lesion had drug-eluting stent placed Patient started with aspirin Plavix will need dual antiplatelet therapy for 1 month Patient is already on Eliquis for chronic A. fib Afterwards will need combination of Plavix and Eliquis for at least one year Patient will be continued with statin metoprolol and CHRISTINA Repeat cardiac cath done for symptomatic chest pain elevated troponin post-cath Showed widely patent mid LAD stent Echo on 11/14/2017 left ventricular EF of 20-25% Severe hypokinesis to akinesis of the anteroseptal and inferoseptal segments at the mid and apical level There is apical hypokinesis/large LAD coronary artery territory abnormality -Appreciate input from cardiology -Patient will continue with cardiac meds including aspirin Plavix statin beta iman -referral to cardiac rehab -Cardiology following closely, appreciate input SEVERE ISCHEMIC CARDIOMYOPATHY -Due to above -EF less than 25% -With severe wall motion abnormality -Continue with diuretics -No evidence of volume overload ACUTE CHF WITH SYSTOLIC DYSFUNCTION Due to severe cardiomyopathy Patient is on torsemide/ Aldactone CHRISTINA inhibitor is discontinued started on Entresto( Secubitril /valsartan ) by Cardiology INFECTED RIGHT PLANTER FOOT INFECTION Nonhealing diabetic foot wound plantar surface of right foot -Wound culture growing Proteus/staph species-pansensitive Mild leukocytosis possibly secondary to above -No fever or chills -Will change antibiotic to IV Rocephin (DC Augmentin/Bactrim) xRAY : 11/14/17 : IMPRESSION: 1. Chronic erosive changes of the first metatarsal head. These have not progressed since the prior radiograph. No convincing evidence of acute osteomyelitis. 2. Suspected wound along the medial soft tissues at the level of the first metatarsophalangeal joint. MRI of rt foot with and with out contrast shows no evidence of osteomyelitis Wound care following-appreciate input plan for possible debridement -Patient will need continued wound clinic follow-up as an outpatient A. FIB WITH RVR History of chronic A. fib Presents with RVR possibly secondary to non-ST elevated ID/severe cardiomyopathy Was on amiodarone drip/transition made to oral amiodarone -On beta-iman On p.o. amiodarone On chronic anticoagulation with Eliquis TYPE 2 DIABETES Recent hemoglobin A1c more than 9 Hold oral antidiabetic medications while inpatient Insulin sliding scale CODE STATUS: Full code DVT PROPHYLAXIS Eliquis DISPOSITION Plan to discharge home when medically stable referral to cardiac rehab Social service consulted for discharge planning Medicine follow-up with Dr. Sherman at [facility] Close follow-up with [facility] cardiology in outpatient Vital Signs: Date Time Temp Pulse Resp B/P (MAP) Pulse Ox O2 Delivery O2 Flow Rate FiO2 11/18/17 16:00 94 Room Air 11/18/17 15:48 36.3 95 18 110/67 (81) 94 Room Air 11/18/17 12:00 91 Room Air 11/18/17 12:00 36.5 70 16 110/72 (85) 94 Room Air 2.0 40 11/18/17 09:09 36.5 74 16 115/74 (88) 96 11/18/17 08:00 94 11/18/17 08:00 91 Room Air 11/18/17 04:23 36.7 86 16 126/84 (98) 94 11/18/17 04:00 Room Air 11/18/17 00:00 Room Air 11/17/17 23:50 36.5 87 18 113/75 (88) 96 Room Air 11/17/17 20:00 Room Air 11/17/17 20:00 36.6 92 20 105/85 (92) 96 Room Air Lab Results: Results Past 24 Hours Test 11/17/17 20:26 11/18/17 02:02 11/18/17 06:27 11/18/17 07:10 Range/Units Bedside Glucose 114 106 128 70-90 mg/dl Sodium Level 137 136-145 mmol/L Potassium Level 5.0 3.5-5.1 mmol/L Chloride Level 101 98-107 mmol/L Carbon Dioxide Level 29 21-32 mmol/L Anion Gap 7.0 3-11 mmol/L Blood Urea Nitrogen 19 7-18 mg/dl Creatinine 0.87 0.60-1.20 mg/dl Est Creatinine Clear Calc Drug Dose 74.5 ml/min Estimated GFR () 76.6 Estimated GFR (Non- 66.1 BUN/Creatinine Ratio 22.1 10-20 Random Glucose 127 70-99 mg/dl Calcium Level 8.9 8.5-10.1 mg/dl Magnesium Level 1.9 1.8-2.4 mg/dl Test 11/18/17 11:01 11/18/17 16:17 Range/Units Bedside Glucose 207 121 70-90 mg/dl
[2017-11-18] VITALS (8 sets, daily range): BP systolic 95–126; BP diastolic 67–84; PULSE 70–95; TEMP 36.3–36.7; O2SAT 91–96
[2017-11-18] MEDS ORDERED: CLONAZEPAM 1 MG TAB PO PRN
[2017-11-18] MEDS ORDERED: INSULIN ASPART 100 UNITS/ML 3 ML PEN SC SCH (02:00)
[2017-11-18] MEDS: DOCUSATE SODIUM 100 MG CAP PO SCH ×2 (08:02→20:41)
[2017-11-18] MEDS: ATORVASTATIN 40 MG TAB PO SCH (08:02)
[2017-11-18] MEDS: CALCIUM 600MG + VIT D 400 IU TAB PO SCH (08:02)
[2017-11-18] MEDS: MULTIVITAMIN TAB PO SCH (08:02)
[2017-11-18] MEDS: CLOPIDOGREL BISULFATE 75 MG TAB PO SCH (08:02)
[2017-11-18] MEDS: OXYBUTYNIN CHLORIDE 5 MG TAB PO SCH ×2 (08:03→20:42)
[2017-11-18] MEDS: AMIODARONE 200 MG TAB PO SCH ×3 (08:03→17:19)
[2017-11-18] MEDS: VENLAFAXINE HCL XR 75 MG CAPXR PO SCH (08:03)
[2017-11-18] MEDS: TORSEMIDE 20 MG TAB PO SCH (08:04)
[2017-11-18] MEDS: SPIRONOLACTONE 25 MG TAB PO SCH (08:04)
[2017-11-18] MEDS: ASPIRIN 81 MG ECTAB PO SCH (08:04)
[2017-11-18] MEDS: APIXABAN 2.5 MG TAB PO SCH ×2 (08:05→20:43)
[2017-11-18] MEDS: METOPROLOL TARTRATE 50 MG TAB PO SCH ×3 (08:05→20:43)
[2017-11-18] MEDS: MAGNESIUM OXIDE 400 MG TAB PO SCH ×2 (08:05→20:44)
[2017-11-18] MEDS: FAMOTIDINE 20 MG TAB PO SCH ×2 (08:05→20:44)
[2017-11-18] MEDS: SACUBITRIL-VALSARTAN 24-26 MG TAB PO SCH ×2 (08:06→20:43)
[2017-11-18 08:08] LABS: CALCIUM 8.9 mg/dl (8.5-10.1); CREATININE 0.87 mg/dl (0.60-1.20)
[2017-11-18] MEDS: INSULIN ASPART 100 UNITS/ML 3 ML PEN SC SCH ×4 (08:10→21:00)
[2017-11-18] MEDS: INSULIN GLARGINE SOLOSTAR 100 UNITS/ML 3 ML PEN SC SCH ×2 (08:11→21:42)
[2017-11-18] MEDS: CEFTRIAXONE SOD INJ 1 GM in DEXTROSE 5% ADD-VANTAGE 50ML 50 ML IV SCH (10:37)
--- NOTE | 2017-11-18 12:26 | Pharmacy Progress Note ---
Pharmacy Glycemic Short Note 2 Date of Service Nov 18, 2017. OUTPATIENT ANTIDIABETIC REGIMEN: * Trulicity 1.5mg SQ weekly * Glipizide 10mg PO BID * Metformin 500mg TID * HbA1c: 9.3% (10/14/17) ASSESSMENT: 11/18/17: * Patient's BSGs dropped somewhat significantly yesterday evening (perhaps secondary to discontinuation of amiodarone infusion, which is mixed in dextrose? ). BSG 159 -> 78 -> 114 -> 106 * Lantus dose decreased slightly this morning d/t downward trend of BSGs. Carb ratio also loosened slightly. * Pre-lunch BSG elevated, so may need to re-tighten carb ratio; will re-eval tomorrow 11/17/17 * BSGs have ranged 136-229 over the last 24 hours * Over the last 24 hours she has received 69 units of insulin and PO intake has been poor * The current BSG pattern suggests she is still basal insulin deficient - will continue to titrate up Lantus dose * Post-prandial hyperglycemia is improving yet still problematic as our targets are not being met. Will continue to monitor today as CR was changed mid-day yesterday, however would have a low threshold for increasing prandial insulin dose, at least with the breakfast meal as pre-lunch hyperglycemia is a recurrent problem. PLAN FOR INPATIENT GLYCEMIC CONTROL: * Hold outpatient oral diabetes medications * Basal insulin * Lantus 18 units SQ BID * Bolus insulin * NovoLog per scale ACHS and at 0200 tonight * Goal Range: Low 110 mg/dL - High 140 mg/dL * Correction Factor: 15 mg/dL/unit * Nutritional / Prandial insulin per carb ratio of 1 unit per 5 grams CHO consumed PLAN FOR DISCHARGE: * Given A1c > 9 would recommend prompt f/u with PCP or endocrinology on discharge to adjust outpt regimen. * It is possible the glipizide is not having much affect on glycemic control at this time and basal insulin may be needed instead in combo with Trulicity and metformin.
--- NOTE | 2017-11-18 13:27 | Wound Consultation: Inpatient ---
Wound Consultation Date of Consultation: Nov 16, 2017. Attending Physician: Shyla Washington M.D. Reason for Consultation: Ulceration right foot History of Present Illness Patient was admitted to [facility] 6 days ago for evaluation treatment of chest pain shortness of breath. Patient states she developed an ulceration on the bottom of her right foot approximately 1 month ago. [facility] [place] [facility] [place] [facility] [place] similar occurrence. Patient states that she has been applying Aquacel Ag dressings daily over the past month to this area. Patient denies any new foot wear. Patient denies any known trauma. Patient denies any significant pain in this area. Patient denies any current fever chills or night sweats. Patient denies any other systemic complaints. Family History FH: CAD (coronary artery disease) MOTHER Hypertension MOTHER Social History Smoking Status: Former Smoker Alcohol Use: occasionally Marital Status: Housing Status: lives alone Occupation Status: retired Allergies Coded Allergies: Cetirizine & Related (Verified Allergy, Intermediate, ANAPHYLAXIS, 10/13/17 ) Hallucinations Hydroxyzine (Verified Allergy, Unknown, 10/13/17) Home Medications Scheduled Apixaban (Eliquis), 5 MG PO BID Aspirin (Aspirin Ec), 81 MG PO DAILY Atorvastatin (Lipitor), 10 MG PO DAILY Calcium Carbonate-Vitamin D W/ (Caltrate 600 Plus), 2 TAB PO DAILY Coenzyme Q10 (Ubidecarenone) (Coq10), 1 TAB PO DAILY Dulaglutide (Trulicity), 1.5 MG INJ WK Glipizide (Glucotrol), 10 MG PO BID Magnesium Oxide (Mag-Ox), 400 MG PO BID Metformin Hcl (Glucophage), 500 MG PO TID Metoprolol Succinate (Metoprolol Succinate ER), 100 MG PO QAM Multivitamin (Multivitamin), 1 TAB PO DAILY Oxybutynin Chloride (Ditropan), 5 MG PO BID Polyethylene Glycol-Propylene (Systane), 1 DROPS OPB Q2H Venlafaxine Hcl (Venlafaxine Hcl Er), 1 TAB PO DAILY Miscellaneous Medications Cinnamon (Cinnamon), 500 MG PO Inpatient Medications Current Inpatient Medications Medications (Trade) Dose Ordered Sig/Tasha Route Start Time Stop Time Status Last Admin Dose Admin Miscellaneous (Iv Fluids Completed) 1 ea PRN PRN N/A 11/10/17 16:00 11/10/18 15:59 Nitroglycerin (Nitrostat Tab) 0.4 mg UD PRN SL 11/10/17 16:15 12/10/17 16:14 11/13/17 19:33 0.4 MG Ondansetron HCl (Zofran Inj) 4 mg Q6H PRN IV 11/10/17 16:15 12/10/17 16:14 11/15/17 20:58 4 MG Clopidogrel Bisulfate (plAVix TAB) 75 mg QAM PO 11/11/17 09:00 12/11/17 08:59 11/18/17 08:02 75 MG Atorvastatin Calcium (Lipitor Tab) 80 mg QAM PO 11/11/17 09:00 12/11/17 08:59 11/18/17 08:02 80 MG Acetaminophen (Tylenol Tab) 650 mg Q4H PRN PO 11/10/17 16:15 12/10/17 16:14 11/10/17 19:12 650 MG Aspirin (Ecotrin Tab) 81 mg DAILY PO 11/11/17 09:00 12/11/17 08:59 11/18/17 08:04 81 MG Calcium/Vitamin D (Caltrate Plus Tab) 2 tab DAILY PO 11/11/17 09:00 12/11/17 08:59 11/18/17 08:02 2 TAB Magnesium Oxide (Mag-Ox Tab) 400 mg BID PO 11/10/17 21:00 12/10/17 20:59 11/18/17 08:05 400 MG Multivitamins (Multivitamin Tab) 1 tab DAILY PO 11/11/17 09:00 12/11/17 08:59 11/18/17 08:02 1 TAB Oxybutynin Chloride (Ditropan Tab) 5 mg BID PO 11/10/17 21:00 12/10/17 20:59 11/18/17 08:03 5 MG Venlafaxine HCl (effeXOR EXTENDED REL CAP) 75 mg DAILY PO 11/11/17 09:00 12/11/17 08:59 11/18/17 08:03 75 MG Apixaban (Eliquis Tab) 5 mg BID PO 11/11/17 09:00 12/11/17 08:59 11/18/17 08:05 5 MG Glucose (Glucose 40% Gel) 15-30 GRAMS 15 GRAMS... UD PRN PO 11/10/17 17:15 12/10/17 17:14 Glucose (Glucose Chew Tab) 4-8 Tablets 4 Tabl... UD PRN PO 11/10/17 17:15 12/10/17 17:14 Dextrose (Dextrose 50% 50ML Syringe) 25-50ML OF 50% DW IV FOR... UD PRN IV 11/10/17 17:15 12/10/17 17:14 Glucagon (Glucagon Inj) 1 mg UD PRN SQ 11/10/17 17:15 12/10/17 17:14 Famotidine (Pepcid Tab) 20 mg BID PO 11/12/17 09:00 12/12/17 08:59 11/18/17 08:05 20 MG Spironolactone (Aldactone Tab) 12.5 mg QAM PO 11/14/17 09:00 12/14/17 08:59 11/18/17 08:04 12.5 MG Miscellaneous Information (Consult Glycemic Management Pharmacy) 1 ea UD PRN N/A 11/14/17 16:45 12/14/17 16:44 Insulin Aspart (novoLOG ASPART) SLIDING SCALE ACHS SC 11/15/17 06:45 12/15/17 06:44 11/18/17 12:04 11 UNITS Diphenhydramine HCl (Benadryl Cap) 50 mg Q8H PRN PO 11/14/17 22:45 12/14/17 22:44 11/14/17 23:22 50 MG Amiodarone HCl (Cordarone Tab) 400 mg TIDM PO 11/15/17 11:30 12/15/17 11:29 11/18/17 12:02 400 MG Torsemide (Demadex Tab) 10 mg QAM PO 11/16/17 09:00 12/16/17 08:59 11/18/17 08:04 10 MG Sacubitril/ Valsartan (Entresto 24-26 Mg) 1 tab BID PO 11/16/17 09:00 12/16/17 08:59 11/18/17 08:06 1 TAB Ceftriaxone Sodium 1 gm/ Dextrose 50 ml @ 100 mls/hr Q24H IV 11/16/17 10:30 11/26/17 10:29 4/19/18 10:37 100 MLS/HR Polyethylene (Miralax Powder Packet) 17 gm DAILY PRN PO 11/16/17 17:45 12/16/17 17:44 Docusate Sodium (coLACE CAP) 100 mg BID PO 11/16/17 21:00 12/16/17 20:59 11/18/17 08:02 100 MG Metoprolol Tartrate (Lopressor Tab) 50 mg TID PO 11/17/17 14:00 12/17/17 13:59 11/18/17 08:05 50 MG Clonazepam (Klonopin Tab) 1 mg HS PRN PO 11/18/17 00:00 12/18/17 00:00 Insulin Glargine (Lantus Solostar Pen) 18 units BID SC 11/18/17 09:00 12/18/17 08:59 11/18/17 08:11 18 UNITS Physical Exam Date Time Temp Pulse Resp B/P (MAP) Pulse Ox O2 Delivery O2 Flow Rate FiO2 11/18/17 12:00 91 Room Air 11/18/17 12:00 36.5 70 16 110/72 (85) 94 Room Air 2.0 40 11/18/17 09:09 36.5 74 16 115/74 (88) 96 11/18/17 08:00 94 11/18/17 08:00 91 Room Air 11/18/17 04:23 36.7 86 16 126/84 (98) 94 11/18/17 04:00 Room Air 11/18/17 00:00 Room Air 11/17/17 23:50 36.5 87 18 113/75 (88) 96 Room Air 11/17/17 20:00 Room Air 11/17/17 20:00 36.6 92 20 105/85 (92) 96 Room Air 11/17/17 17:24 36.6 79 20 108/63 (78) 95 Room Air 11/17/17 16:00 Room Air General: The patient is lying in hospital bed in no distress. Alert, cooperative and appropriate to all questions. HEENT: Pupils equal and reactive to light. Sclera clear, EOM intact. Neck: Supple, No JVD noted Chest: CTA in all delarosa. No deformity Heart: RRR without murmurs, S3, S4, thrills, rubs or heaves Extremities: Patient has an ulceration on the plantar surface of her right foot over the first metatarsal head. The site measures 1 x 0.6 x 0.3 cm. There is some undermining of skin present. Minimal central slough is noted. Some surrounding callus is also present. No pain to palpation or fluctuance noted at the site. No periwound erythema present. No active drainage noted. Some odor is present. Pulses are present +2 Neurological: Alert and oriented x3. No focal deficits. Laboratory Results Last 24 Hours Test 11/17/17 16:18 11/17/17 20:26 11/18/17 02:02 11/18/17 06:27 Bedside Glucose 78 mg/dl 114 mg/dl 106 mg/dl 128 mg/dl Test 11/18/17 07:10 11/18/17 11:01 Sodium Level 137 mmol/L Potassium Level 5.0 mmol/L Chloride Level 101 mmol/L Carbon Dioxide Level 29 mmol/L Anion Gap 7.0 mmol/L Blood Urea Nitrogen 19 mg/dl Creatinine 0.87 mg/dl Est Creatinine Clear Calc Drug Dose 74.5 ml/min Estimated GFR () 76.6 Estimated GFR (Non- 66.1 BUN/Creatinine Ratio 22.1 Random Glucose 127 mg/dl Calcium Level 8.9 mg/dl Magnesium Level 1.9 mg/dl Bedside Glucose 207 mg/dl Assessment & Plan Assessment: Diabetic foot ulcer Wilder grade 2 through skin right foot first metatarsal head Plan: At this time site did require debridement. With patient's permission and after the application of topical Xylocaine 4% the site was debrided with a combination of scissors forceps and a #5 curette. Surrounding undermined skin as well as callus and some slough was removed. Minimal bleeding occurred which was controlled with direct pressure. The site will be dressed with Aquacel Ag and gauze changed on a daily basis. Patient will be evaluated by orthotics for ongoing offloading issues. The site will continue to be monitored through out her hospitalization and followed up in the outpatient clinic upon discharge. This represented a non-excisional debridement of less than 20 cm.
--- NOTE | 2017-11-18 16:18 | Cardiology Follow-Up ---
Subjective General Date of Service: Nov 18, 2017. Chief Complaint: follow up chest pain, shortness of breath Pt evaluation today including: conversation w/ patient, physical exam History of Present Illness The patient is a 72 year old female seen in cardiology follow-up. Patient is feeling well. She is out of bed in a chair. She felt some degree of dizziness standing in the bathroom today but she feels that this is more due to deconditioning as she has been in bed for such a substantial amount of time over the last week. She denies any chest discomfort or subjective palpitations. Telemetry reveals atrial fibrillation with ventricular rates in the 90-110 bpm range. Allergies Coded Allergies: Cetirizine & Related (Verified Allergy, Intermediate, ANAPHYLAXIS, 10/13/17 ) Hallucinations Hydroxyzine (Verified Allergy, Unknown, 10/13/17) Social History Smoking Status: Former Smoker Hx Tobacco Use In Past Year?: No Hx Alcohol Use - Type And Amou: No Hx Substance Use - Type And Am: No Problem List Medical Problems: (1) Elevated WBC count Status: Acute (2) Hyperglycemia Status: Acute (3) Hyperkalemia Status: Acute (4) STEMI (ST elevation myocardial infarction) Status: Acute (5) SVT (supraventricular tachycardia) Status: Acute Physical Exam Vital Signs Last Vital Signs Documentation Date Time Temp Pulse Resp B/P (MAP) Pulse Ox O2 Delivery O2 Flow Rate FiO2 11/18/17 15:48 36.3 95 18 110/67 (81) 94 Room Air 11/18/17 12:00 2.0 40 Physical Exam Constitutional: Level of Distress: NAD ENMT: hearing grossly normal Neck: supple, trachea midline Lungs: Auscultation: no rhonchi, pertinent finding (mildly decreased BS at the bases.) Cardiovascular: Heart Auscultation: RRR, no murmurs, no rubs Extremities: pertinent finding (trace LE edema, varicose veins in LEs) Neurologic: Gait & Station: pertinent finding (no focal deficits ) Assessment and Plan Assessment and Plan IMPRESSION: 1. Presented 11/10/17 with chest pain, non ST elevation acute coronary syndrome, had emergent cardiac cath, ISABEL to LAD, residual Cx territory disease, non amenable to PCI treated medically. 2. Recurrent chest pain, new CHF 11/11/17 prompting repeat cath, Stable findings with patent LAD stent. 3. Acute , newly diagnosed systolic heart failure, new LAD wall motion abnormality this admission, severe LV systolic dysfunction, not present 09/2017, Question of timing of insult regarding this week or more remote (sometime within the last month since prior echo) 4. History of supraventricular tachycardia, episode of 200 bpm required urgent cardioversion 09/2017 5. Persistent atrial fibrillation, onset 11/12/17, DCCV to SR 11/14/17, reverted to AF am 11/16/17 6. hypomagnesemia 7. Leukocytosis, chronic right sided diabetic foot ulcer (MRI does not suggest osteomyelitis), Right forearm erythema, at prior IV site PLAN: CAD, status post LAD stent: Continue aspirin, clopidogrel, reduce atorvastatin dose to 40 mg given amiodarone treatment, continue metoprolol tartrate 50 mg 3 times daily. Atrial fibrillation, SVT: Continue metoprolol, continue amiodarone load 400 mg 3 times daily, plan to reduce amiodarone to 200 mg 3 times daily at discharge, continue Eliquis for anticoagulation Acute systolic heart failure, cardiomyopathy: Continue metoprolol, interested, torsemide, spironolactone. Potassium is mildly elevated at 5 mmol/L today, will repeat tomorrow Laboratory Results Last 24 Hours Test 11/17/17 16:18 11/17/17 20:26 11/18/17 02:02 11/18/17 06:27 Bedside Glucose 78 mg/dl 114 mg/dl 106 mg/dl 128 mg/dl Test 11/18/17 07:10 11/18/17 11:01 Sodium Level 137 mmol/L Potassium Level 5.0 mmol/L Chloride Level 101 mmol/L Carbon Dioxide Level 29 mmol/L Anion Gap 7.0 mmol/L Blood Urea Nitrogen 19 mg/dl Creatinine 0.87 mg/dl Est Creatinine Clear Calc Drug Dose 74.5 ml/min Estimated GFR () 76.6 Estimated GFR (Non- 66.1 BUN/Creatinine Ratio 22.1 Random Glucose 127 mg/dl Calcium Level 8.9 mg/dl Magnesium Level 1.9 mg/dl Bedside Glucose 207 mg/dl
--- NOTE | 2017-11-18 18:56 | Progress Note ---
Internal Med Progress Note Date of Service: Nov 18, 2017. Provider Documentation: SUBJECTIVE: Patient found to be in and out of rapid A. fib Heart rate in 100s She denies of any chest pain or shortness of breath or palpitation Plan to keep her on telemetry overnight-in order to utilize Zoll vest /wearable defibrillator -heart rate needs to be rate controlled/to prevent shock therapy due to rapid A. fib OBJECTIVE: Vital Signs-as noted below Exam: General-very pleasant, no sign of distress noted Eyes-sclera nonicteric ENT-moist oral mucosa Neck-no JVD, no thyromegaly, no carotid bruit Lungs-bibasilar rales Heart-irregular Abdomen-obese, soft nontender Extremities-RIGHT MID ARM: Increased swelling/erythema/increased warmth/ tenderness noted At the site of IV infiltration Possible thrombophlebitis/patient is already on Eliquis Continue pain control/limit elevation/cold compression-patient is counseled at bedside NONHEALING INFECTED WOUND on the plantar side of great to on right, bandage present wound check after removal of bandage shows deep infected wound with purulent base, serosanguineous drainage Neuro-no focal neurological deficit, alert awake oriented 3 Lab data as noted below. ASSESSMENT & PLAN: NON-ST ELEVATED TN No complaint of chest pain or shortness of breath Denies of any orthopnea Remains clinically stable Eager to be discharged home Presented with EKG change with subtle ST elevation in lead I, II and in V1 V2, new T-wave inversion in V1, V2 and V3 Underwent cardiac cath: Showed 80-90% LAD lesion had drug-eluting stent placed Patient started with aspirin Plavix will need dual antiplatelet therapy for 1 month on Eliquis for chronic A. fib will need combination of Plavix and Eliquis for at least one year Patient will be continued with statin metoprolol and CHRISTINA Repeat cardiac cath done for symptomatic chest pain elevated troponin post-cath Showed widely patent mid LAD stent Echo on 11/14/2017 left ventricular EF of 20-25% Severe hypokinesis to akinesis of the anteroseptal and inferoseptal segments at the mid and apical level There is apical hypokinesis/large LAD coronary artery territory abnormality -Appreciate input from cardiology -Patient will continue with cardiac meds including aspirin Plavix statin beta iman -referral to cardiac rehab -Cardiology following closely, appreciate input SEVERE ISCHEMIC CARDIOMYOPATHY -Due to above -EF less than 25% -With severe wall motion abnormality -Continue with diuretics -No evidence of volume overload ACUTE CHF WITH SYSTOLIC DYSFUNCTION Due to severe cardiomyopathy Patient is on torsemide/ Aldactone CHRISTINA inhibitor is discontinued started on Entresto( Secubitril /valsartan ) by Cardiology INFECTED RIGHT PLANTER FOOT INFECTION Nonhealing diabetic foot wound plantar surface of right foot -Wound culture growing Proteus/staph species-pansensitive Mild leukocytosis possibly secondary to above -No fever or chills -Will change antibiotic to IV Rocephin (DC Augmentin/Bactrim) xRAY : 11/14/17 : IMPRESSION: 1. Chronic erosive changes of the first metatarsal head. These have not progressed since the prior radiograph. No convincing evidence of acute osteomyelitis. 2. Suspected wound along the medial soft tissues at the level of the first metatarsophalangeal joint. MRI of rt foot with and with out contrast shows no evidence of osteomyelitis Wound care following-appreciate input plan for possible debridement -Patient will need continued wound clinic follow-up as an outpatient A. FIB WITH RVR Remains on rapid A. fib heart rate 110 Patient does not have any symptoms On beta-iman/amiodarone Appreciate cardiology input On chronic anticoagulation with Eliquis TYPE 2 DIABETES Recent hemoglobin A1c more than 9 Hold oral antidiabetic medications while inpatient Insulin sliding scale CODE STATUS: Full code DVT PROPHYLAXIS Eliquis DISPOSITION Plan to discharge home when medically stable referral to cardiac rehab Social service consulted for discharge planning Medicine follow-up with Dr. Sherman at [facility] Close follow-up with [facility] cardiology in outpatient Vital Signs: Date Time Temp Pulse Resp B/P (MAP) Pulse Ox O2 Delivery O2 Flow Rate FiO2 11/18/17 16:00 94 Room Air 11/18/17 15:48 36.3 95 18 110/67 (81) 94 Room Air 11/18/17 12:00 91 Room Air 11/18/17 12:00 36.5 70 16 110/72 (85) 94 Room Air 2.0 40 11/18/17 09:09 36.5 74 16 115/74 (88) 96 11/18/17 08:00 94 11/18/17 08:00 91 Room Air 11/18/17 04:23 36.7 86 16 126/84 (98) 94 11/18/17 04:00 Room Air 11/18/17 00:00 Room Air 11/17/17 23:50 36.5 87 18 113/75 (88) 96 Room Air 11/17/17 20:00 Room Air 11/17/17 20:00 36.6 92 20 105/85 (92) 96 Room Air Lab Results: Results Past 24 Hours Test 11/17/17 20:26 11/18/17 02:02 11/18/17 06:27 11/18/17 07:10 Range/Units Bedside Glucose 114 106 128 70-90 mg/dl Sodium Level 137 136-145 mmol/L Potassium Level 5.0 3.5-5.1 mmol/L Chloride Level 101 98-107 mmol/L Carbon Dioxide Level 29 21-32 mmol/L Anion Gap 7.0 3-11 mmol/L Blood Urea Nitrogen 19 7-18 mg/dl Creatinine 0.87 0.60-1.20 mg/dl Est Creatinine Clear Calc Drug Dose 74.5 ml/min Estimated GFR () 76.6 Estimated GFR (Non- 66.1 BUN/Creatinine Ratio 22.1 10-20 Random Glucose 127 70-99 mg/dl Calcium Level 8.9 8.5-10.1 mg/dl Magnesium Level 1.9 1.8-2.4 mg/dl Test 11/18/17 11:01 11/18/17 16:17 Range/Units Bedside Glucose 207 121 70-90 mg/dl
[2017-11-19 00:07] VITALS: BP 106/62; PULSE 88; TEMP 36.6; O2SAT 93
[2017-11-19 03:38] VITALS: BP 137/69; PULSE 98; TEMP 36.4; O2SAT 94
[2017-11-19 06:57] LABS: BASO % 0.6 %; BASO ABS # 0.07 K/uL (0-0.2); EOS % 4.5 %; EOS ABS # 0.51 K/uL (0-0.5); HEMATOCRIT 39.6 % (37-47); HEMOGLOBIN 12.3 g/dL (12.0-16.0); IG# 0.03 K/uL (0.00-0.02); LYMPH % 23.5 %; LYMPH ABS # 2.66 K/uL (1.2-3.4); MEAN CELL VOLUME 85.3 fL (80-100); MEAN CORPUSCULAR HEMOGLOBIN 26.5 pg (25-34); MEAN CORPUSCULAR HGB CONC 31.1 g/dl (32-36); MEAN PLATELET VOLUME 9.2 fL (7.4-10.4); MONO ABS # 0.91 K/uL (0.11-0.59); NEUT % 63.1 %; NEUT ABS # 7.15 K/uL (1.4-6.5); PLATELET COUNT 449 K/uL (130-400); RED CELL DISTRIBUTION WIDTH CV 13.8 % (11.5-14.5); RED CELL DISTRIBUTION WIDTH SD 42.9 fL (36.4-46.3); WHITE BLOOD COUNT 11.33 K/uL (4.8-10.8)
[2017-11-19 07:34] LABS: CALCIUM 9.4 mg/dl (8.5-10.1); CREATININE 0.96 mg/dl (0.60-1.20); POTASSIUM 5.2 mmol/L (3.5-5.1)
[2017-11-19 07:45] VITALS: BP 97/65; PULSE 98; TEMP 36.4; O2SAT 94
[2017-11-19] MEDS: AMIODARONE 200 MG TAB PO SCH ×2 (08:20→12:09)
[2017-11-19] MEDS: DOCUSATE SODIUM 100 MG CAP PO SCH (08:21)
[2017-11-19] MEDS: CALCIUM 600MG + VIT D 400 IU TAB PO SCH (08:21)
[2017-11-19] MEDS: CLOPIDOGREL BISULFATE 75 MG TAB PO SCH (08:21)
[2017-11-19] MEDS: MULTIVITAMIN TAB PO SCH (08:21)
[2017-11-19] MEDS: SACUBITRIL-VALSARTAN 24-26 MG TAB PO SCH (08:22)
[2017-11-19] MEDS: FAMOTIDINE 20 MG TAB PO SCH (08:22)
[2017-11-19] MEDS: METOPROLOL TARTRATE 50 MG TAB PO SCH (08:22)
[2017-11-19] MEDS: MAGNESIUM OXIDE 400 MG TAB PO SCH (08:22)
[2017-11-19] MEDS: SPIRONOLACTONE 25 MG TAB PO SCH (08:23)
[2017-11-19] MEDS: VENLAFAXINE HCL XR 75 MG CAPXR PO SCH (08:23)
[2017-11-19] MEDS: ASPIRIN 81 MG ECTAB PO SCH (08:23)
[2017-11-19] MEDS: OXYBUTYNIN CHLORIDE 5 MG TAB PO SCH (08:23)
[2017-11-19] MEDS: APIXABAN 2.5 MG TAB PO SCH (08:23)
[2017-11-19] MEDS: TORSEMIDE 20 MG TAB PO SCH (08:24)
[2017-11-19] MEDS: INSULIN ASPART 100 UNITS/ML 3 ML PEN SC SCH ×2 (08:34→12:11)
[2017-11-19] MEDS: INSULIN GLARGINE SOLOSTAR 100 UNITS/ML 3 ML PEN SC SCH (08:35)
[2017-11-19] MEDS ORDERED: ATORVASTATIN 40 MG TAB PO SCH (09:00)
[2017-11-19] MEDS: CEFTRIAXONE SOD INJ 1 GM in DEXTROSE 5% ADD-VANTAGE 50ML 50 ML IV SCH (10:59)
--- NOTE | 2017-11-19 11:04 | Pharmacy Progress Note ---
Pharmacy Glycemic Short Note 2 Date of Service Nov 19, 2017. OUTPATIENT ANTIDIABETIC REGIMEN: * Trulicity 1.5mg SQ weekly * Glipizide 10mg PO BID * Metformin 500mg TID * HbA1c: 9.3% (10/14/17) ASSESSMENT: 11/19/17: * BSGs stable since Lantus adjusted yesterday. * Carb ratio was tightened this morning in an attempt to reduce pre-lunch hyperglycemia. 11/18/17 * Patient's BSGs dropped somewhat significantly yesterday evening (perhaps secondary to discontinuation of amiodarone infusion, which is mixed in dextrose? ). BSG 159 -> 78 -> 114 -> 106 * Lantus dose decreased slightly this morning d/t downward trend of BSGs. Carb ratio also loosened slightly. * Pre-lunch BSG elevated, so may need to re-tighten carb ratio; will re-eval tomorrow PLAN FOR INPATIENT GLYCEMIC CONTROL: * Hold outpatient oral diabetes medications * Basal insulin * Lantus 18 units SQ BID * Bolus insulin * NovoLog per scale ACHS and at 0200 tonight * Goal Range: Low 110 mg/dL - High 140 mg/dL * Correction Factor: 15 mg/dL/unit * Nutritional / Prandial insulin per carb ratio of 1 unit per 4 grams CHO consumed PLAN FOR DISCHARGE: * Given A1c > 9 would recommend prompt f/u with PCP or endocrinology on discharge to adjust outpt regimen. * It is possible the glipizide is not having much affect on glycemic control at this time and basal insulin may be needed instead in combo with Trulicity and metformin.
[2017-11-19 12:05] VITALS: BP 97/67; PULSE 86; TEMP 36.4; O2SAT 98
--- NOTE | 2017-11-19 13:05 | Cardiology Follow-Up ---
Subjective General Date of Service: Nov 19, 2017. Chief Complaint: follow up chest pain, shortness of breath History of Present Illness The patient is a 72 year old female seen in follow up. She feels subjectively improved. Telemetry reveals ongoing atrial fibrillation for the most part in the 80 bpm range at rest. This morning when she was getting cleaned up in the bathroom and having a bowel movement her ventricular rate was up to 116 bpm. Allergies Coded Allergies: Cetirizine & Related (Verified Allergy, Intermediate, ANAPHYLAXIS, 10/13/17 ) Hallucinations Hydroxyzine (Verified Allergy, Unknown, 10/13/17) Social History Smoking Status: Former Smoker Hx Tobacco Use In Past Year?: No Hx Alcohol Use - Type And Amou: No Hx Substance Use - Type And Am: No Problem List Medical Problems: (1) Elevated WBC count Status: Acute (2) Hyperglycemia Status: Acute (3) Hyperkalemia Status: Acute (4) STEMI (ST elevation myocardial infarction) Status: Acute (5) SVT (supraventricular tachycardia) Status: Acute Physical Exam Vital Signs Last Vital Signs Documentation Date Time Temp Pulse Resp B/P (MAP) Pulse Ox O2 Delivery O2 Flow Rate FiO2 11/19/17 12:10 Room Air 11/19/17 12:05 36.4 86 16 97/67 (77) 98 11/18/17 12:00 2.0 40 Physical Exam Constitutional: Level of Distress: NAD ENMT: hearing grossly normal Neck: supple, trachea midline Lungs: Auscultation: no rhonchi, pertinent finding (mildly decreased BS at the bases.) Cardiovascular: Heart Auscultation: RRR, no murmurs, no rubs Extremities: pertinent finding (trace LE edema, varicose veins in LEs) Neurologic: Gait & Station: pertinent finding (no focal deficits ) Assessment and Plan Assessment and Plan IMPRESSION: 1. Presented 11/10/17 with chest pain, non ST elevation acute coronary syndrome, had emergent cardiac cath, ISABEL to LAD, residual Cx territory disease, non amenable to PCI treated medically. 2. Recurrent chest pain, new CHF 11/11/17 prompting repeat cath, Stable findings with patent LAD stent. 3. Acute , newly diagnosed systolic heart failure, new LAD wall motion abnormality this admission, severe LV systolic dysfunction, not present 09/2017, Question of timing of insult regarding this week or more remote (sometime within the last month since prior echo) 4. History of supraventricular tachycardia, episode of 200 bpm required urgent cardioversion 09/2017 5. Persistent atrial fibrillation, onset 11/12/17, DCCV to SR 11/14/17, reverted to AF am 11/16/17 6. hypomagnesemia 7. Leukocytosis, chronic right sided diabetic foot ulcer (MRI does not suggest osteomyelitis), Right forearm erythema, at prior IV site PLAN: CAD, status post LAD stent: Continue aspirin, clopidogrel, reduce atorvastatin dose to 40 mg given amiodarone treatment. Discharge on metoprolol succinate 100 mg PO BID. Atrial fibrillation, SVT: Continue metoprolol as above. Reduce amiodarone to 200 mg BID at discharge. Continue Eliquis for anticoagulation Acute systolic heart failure, cardiomyopathy: discharge on metoprolol succinate 100 mg twice daily, Entresto 24-26 PO BID , torsemide 10 mg daily. Stop spironolactone 12.5 mg daily due to elevated potassium, 5.2 mmol today. Holding off on digoxin given amiodarone use. Continue magnesium oxide 400 mg twice daily. I received notification from the [facility] that prior auth for Entresto has been approved. She should receive this medication in the mail from [facility] early next week. OK for her to miss a few days. No ACEI oor ARB in the meantime. 4 future follow-up please note that the patient's blood pressure has been borderline low in the 90 mmHg range for much of this hospitalization. This is a stable situation and she is tolerating the above medications well. She is to be discharged with Zoll Life vest after fitting. We will plan on reassessment of her ejection fraction is outpatient in 3 months to determine if she is a candidate for AICD. I have requested a one-week follow-up visit with me, or Dr. Levine. Patient's previously scheduled EP study for consideration of SVT ablation has been canceled pending further treatment of ischemic heart disease, heart failure , and atrial fibrillation. Hopefully the amiodarone will be effective at preventing future SVT episodes in the short-term. Ideally I would like to limit her exposure to amiodarone for a 3 month interval and therefore would like to reassess ongoing use by 02/18/18. Laboratory Results Last 24 Hours Test 4/19/18 14:12 11/18/17 16:17 11/18/17 21:10 11/19/17 06:33 Bedside Glucose 137 mg/dl 121 mg/dl 134 mg/dl White Blood Count 11.33 K/uL Red Blood Count 4.64 M/uL Hemoglobin 12.3 g/dL Hematocrit 39.6 % Mean Corpuscular Volume 85.3 fL Mean Corpuscular Hemoglobin 26.5 pg Mean Corpuscular Hemoglobin Concent 31.1 g/dl Platelet Count 449 K/uL Mean Platelet Volume 9.2 fL Neutrophils (%) (Auto) 63.1 % Lymphocytes (%) (Auto) 23.5 % Monocytes (%) (Auto) 8.0 % Eosinophils (%) (Auto) 4.5 % Basophils (%) (Auto) 0.6 % Neutrophils # (Auto) 7.15 K/uL Lymphocytes # (Auto) 2.66 K/uL Monocytes # (Auto) 0.91 K/uL Eosinophils # (Auto) 0.51 K/uL Basophils # (Auto) 0.07 K/uL RDW Standard Deviation 42.9 fL RDW Coefficient of Variation 13.8 % Immature Granulocyte % (Auto) 0.3 % Immature Granulocyte # (Auto) 0.03 K/uL Sodium Level 138 mmol/L Potassium Level 5.2 mmol/L Chloride Level 102 mmol/L Carbon Dioxide Level 31 mmol/L Anion Gap 5.0 mmol/L Blood Urea Nitrogen 23 mg/dl Creatinine 0.96 mg/dl Est Creatinine Clear Calc Drug Dose 67.5 ml/min Estimated GFR () 68.0 Estimated GFR (Non- 58.7 BUN/Creatinine Ratio 24.4 Random Glucose 108 mg/dl Calcium Level 9.4 mg/dl Magnesium Level 1.9 mg/dl Test 11/19/17 06:45 11/19/17 11:27 Bedside Glucose 103 mg/dl 189 mg/dl
[2017-11-19] MEDS ORDERED: LPT40 PO (13:38)
[2017-11-19] MEDS ORDERED: PLV75 PO (13:38)
[2017-11-19] MEDS ORDERED: APIX1TAB3 PO (13:38)
[2017-11-19] MEDS ORDERED: SACU1TAB PO (13:38)
[2017-11-19] MEDS ORDERED: TPRSR50 PO (13:38)
--- NOTE | 2017-11-19 13:40 | Discharge Instructions ---
Discharge Instructions Date of Service Nov 19, 2017. Admission Reason for Admission: Chest Pain/Shortness Of Breath Discharge Discharge Diagnosis / Problem: NSTEMI/CHF WITH ISCHEMIC CARDIOMYOPAHTY /AFIB Discharge Goals Goal(s): Increase independence, Improve disease control, Diagnostic testing, Therapeutic intervention Activity Recommendations Activity Limitations: as noted below (as tolerated ) . Instructions / Follow-Up Instructions / Follow-Up Follow Up: It is important for you to keep your follow up appointments with your medical provider. HOSPITAL FOLLOW UP : on @ 11:[address] Coni García, [facility] CARDIOLOGY FOLLOW UP : IN A WEEK , OFFICE WILL CALL WITH APPOINTMENT FOLLOW UP WITH [facility] -OFFICE WILL CALL WITH SCHEDULE YOU ARE DISCHARGED ON INSULIN LANTUS 18 U TWICE DAILY ( BEFORE BREAKFAST / BEFORE DINNER ) CHECK YOU BLOOD SUGAR -BEFORE BREAKFAST ( FASTING ) /BEFORE LUNCH /BEFORE DINNER /AT BEDTIME KEEP BLOOD SUGAR LOG AND BRING TO NEXT DOCTOR'S VISIT DO NOT TAKE INSULIN IF BLOOD SUGAR < 100 DO NOT TAKE PRIOR DIABETIC MEDS : METFORMIN GLIPIZIDE TRULICITY YOU WILL NEED CARDIAC REHAB -TO RECOVER FORM RECENT HEART ATTACK OFFICE WILL CALL WITH APPOINTMENT PLEASE GET REFERRAL FROM YOUR FAMILY PHYSICIAN FOR DIABETIC CLINIC YOU HAD A VERY RECENT HEART ATTACK : PLEASE FOLLOW THE INSTRUCTIONS BELOW Home Care: * Take your medications exactly as directed. Don't skip doses. * Remember that recovery after a heart attack takes time. Plan to rest for at lease 4-8 weeks while you recover. Then return to normal activity when your doctor says it's okay. * Ask your doctor about joining a heart rehabilitation program. * Tell your doctor if you are feeling depressed. Feelings of sadness are common after a heart attack, but it is important that you speak to someone if you are feeling overwhelmed by these feelings. * If you are having chest pain, call 911 for an ambulance. Do NOT drive yourself to the hospital. * Ask your family members to learn CPR. * Learn to take your own blood pressure and pulse. Keep a record of your results. Ask your doctor when you should seek emergency medical attention. He or she will tell you which blood pressure reading is dangerous. Lifestyle Changes: * Maintain a healthy weight. Get help to lose any extra pounds. * Cut back on salt. * Limit canned, dried, packaged, and fast foods. * Don't add salt to your food. * Season foods with herbs instead of salt when you cook. * Break the smoking habit. Enroll in a stop-smoking program to improve your chances of success. * Limit fatty foods. * Ask your doctor about having your lipid levels checked regularly. * Build up your activity according to your doctor's recommendation. * Ask your doctor when it's okay to resume sexual activity. * Try to manage stress. CONGESTIVE HEART FAILURE : YOUR HEART SUSTAINED SIGNIFICANT DAMAGE DUE TO HEART ATTACK WITH VERY DIMINISHED PUMPING FUNCTION -CONTINUE TO WEAR ZOLL VEST INSTRUCTED BY CARDIOLOGY PLEASE FOLLOW THE INSTRUCTIONS BELOW TO LIMIT THE CHANCE OF WORSENING OF HEART FAILURE Call your Primary Care doctor if any of the following symptoms or problems start or get worse: * Shortness of breath or difficulty breathing * Wake up at night short of breath * Chest pain * Cough * Swelling of your hands, feet, or legs * More fatigued or tired with your normal activity * Palpitations - sudden fast heart beats WEIGHT * Weigh yourself every morning after using the bathroom. * Use the same scale. * Wear the same amount of clothing. * Write your weight down on a chart. * Call your Primary Care doctor if you gain more than 2-3 pounds in 1-2 days. MEDICATIONS * Use this discharge instruction sheet for medication instructions. * Take your medications at the time your doctor ordered. * Do not skip a dose of your medicines. * If you miss a dose of medicine, take it as soon as possible, but DO NOT DOUBLE A DOSE. * Read your medicine information when you get home. * Know all of the side effects of your medicine. If in doubt, ask your pharmacist * Call your Primary Care doctor's office if you have any side effects. * Be sure all of your doctors know what medicine and herbs you take (including cold, flu, and herbal medicine). Take the following with you to your follow-up doctor appointments: * Weight Chart * Medication List * List of questions Do not drink excessive alcohol, beer or wine. Current Hospital Diet Patient's current hospital diet: AHA Diet (Heart Healthy), Diabetes Type 2 Diet Discharge Diet Recommended Diet: AHA Diet (Heart Healthy), Diabetes Type 2 Diet Pending Studies Studies pending at discharge: no Laboratory Results Hemoglobin A1c Test 10/14/17 03:39 Range/Units Estimated Average Glucose 220 mg/dl Hemoglobin A1c 9.3 H 4.5-5.6 % Lipid Panel Test 10/14/17 03:39 Range/Units Triglycerides Level 228 H 0-150 mg/dl Cholesterol Level 103 0-200 mg/dl HDL Cholesterol 32 mg/dl Cholesterol/HDL Ratio 3.2 LDL Cholesterol, Calculated 25 mg/dl Medical Emergencies . Who to Call and When: Medical Emergencies: If at any time you feel your situation is an emergency, please call 911 immediately. Call 911 immediately or go to your nearest Emergency Room if you experience any of the following: Warning Signs and Symptoms of a Heart Attack * Chest pain that is not relieved by medication * Shortness of breath . Non-Emergent Contact Non-Emergency issues call your: Primary Care Provider . . "Provider Documentation" section prepared by Shyla Washington. . AMI Core Measures Reason no ASA as I/P: Treatment provided - N/A Reason no ASA at D/C: Treatment provided - N/A Reason no statin as I/P: Treatment provided - N/A Reason no statin at D/C: Treatment provided - N/A
[2017-11-19] MEDS ORDERED: DMD20 PO (13:49)
[2017-11-19] MEDS ORDERED: NTRSLP4 SL (13:49)
[2017-11-19] MEDS ORDERED: CRD200 PO (13:50)
[2017-11-19] MEDS ORDERED: INSDGIPEN SC (14:02)
[2017-11-19] MEDS ORDERED: CEPH500C2 PO (15:02)
[2017-11-19 15:09] VITALS: BP 97/67; PULSE 86; TEMP 36.4; O2SAT 98
[2017-11-19] MEDS ORDERED: INSU32MI13 SC (15:22)
--- NOTE | 2017-11-19 16:01 | Discharge Summary ---
Discharge Summary Date of Service Nov 19, 2017. Discharge Summary Admission Date: Nov 12, 2017 at 10:19 Discharge Date: Nov 19, 2017 Discharge Disposition: Home with services Principal Diagnosis: NSTEMI/CHF WITH ISCHEMIC CARDIOMYOPATHY /AFIB Procedures: CARDIAC CATH :Showed 80-90% LAD lesion had drug-eluting stent placed Consultations: [facility] [facility] Medication Reconciliation New Medications: Amiodarone HCl (Amiodarone HCl) 200 Mg Tab 200 MG PO BID for 30 Days, #60 TAB 2 Refills Cephalexin Monohydrate (Keflex) 500 Mg Cap 500 MG PO QID for 10 Days, #40 CAP Insulin Pen Needle (Bd Pen Needle/Linn/Ultra) 1 Mis Mis EA SC, #100 4 Refills Atorvastatin (Lipitor) 40 Mg Tab 40 MG PO QAM for 30 Days, #30 TAB 2 Refills Clopidogrel Bisulfate (Clopidogrel) 75 Mg Tab 75 MG PO QAM for 30 Days, #30 TAB 2 Refills Insulin Glargine (Lantus Solostar) 100 Unit/Ml Inj 18 UNITS SC BID for 30 Days, #1 PEN 3 Refills Metoprolol Succinate (Metoprolol Succinate ER) 50 Mg Tabcr 100 MG PO BID for 30 Days, #120 TABS 2 Refills Nitroglycerin (Nitrostat) 0.4 Mg/1 Tab Subl 0.4 MG SL UD PRN for Chest Pain, #30 TABS Sacubitril-Valsartan (Entresto 24-26 mg) 1 Tab Tab 1 TAB PO BID for 30 Days, #60 TAB Torsemide (Torsemide) 20 Mg Tab 10 MG PO QAM for 30 Days, #15 TAB 2 Refills Continued Medications: Apixaban (Eliquis) 5 Mg Tab 5 MG PO BID for 30 Days, #60 TAB 2 Refills (This prescription has been renewed) Aspirin (Aspirin Ec) 81 Mg Tab 81 MG PO DAILY Calcium Carbonate-Vitamin D W/ (Caltrate 600 Plus) 1 Tab Tab 2 TAB PO DAILY, TAB Cinnamon (Cinnamon) 500 Mg Cap 500 MG PO Coenzyme Q10 (Ubidecarenone) (Coq10) 150 Mg Cap 1 TAB PO DAILY Magnesium Oxide (Mag-Ox) 400 Mg Tab 400 MG PO BID, TAB Multivitamin (Multivitamin) Tab 1 TAB PO DAILY, TAB Oxybutynin Chloride (Ditropan) 5 Mg Tab 5 MG PO BID, TAB Polyethylene Glycol-Propylene (Systane) 1 Luna Luna 1 DROPS OPB Q2H for DRYNESS, #30 ML 5 Refills Venlafaxine Hcl (Venlafaxine Hcl Er) 75 Mg Tab 1 TAB PO DAILY Discontinued Medications: Atorvastatin (Lipitor) 10 Mg Tab 10 MG PO DAILY, 0 Refills Dulaglutide (Trulicity) 1.5 Mg/0.5 Ml Inj 1.5 MG INJ WK Glipizide (Glucotrol) 10 Mg Tab 10 MG PO BID, TAB Metformin Hcl (Glucophage) 500 Mg Tab 500 MG PO TID, TAB Metoprolol Succinate (Metoprolol Succinate ER) 50 Mg Tabcr 100 MG PO QAM for 30 Days, #30 Referrals At Discharge Follow up Referrals: Physician Referral - 11/24/17 with Coni García D.O. Physician Referral - Please Call For Appointment with Aurelio Dover, DO Admission Information HPI (per Admitting provider): 72-year-old female who presented to the ER with a chief complaint of chest pain and shortness of breath. Patient was recently admitted to [facility] 10/13 through pa 10/23 new onset atrial fibrillation. Patient was discharged on Eliquis and metoprolol. Patient was recently evaluated by electrophysiology as an outpatient and is planning on ablation next week. Patient reports she woke up this morning feeling in her usual state of health. She reports she was working on a puzzle and then developed chills. She then laid down. When she woke up, she reports she had midsternal chest pain. She describes as an ache. She rates the pain at its worst a #6/10. She also had associated shortness of breath. She denies diaphoresis, nausea, or lightheadedness. She has chronic lower extremity edema which is unchanged from baseline. She denies orthopnea. Reports she has been feeling well recently. She denies any fevers. No abdominal pain, vomiting, or diarrhea. She denies any urinary symptoms. In the ED, patient was found to have less than [address] elevation in leads V1 and V2. She also had a mildly elevated troponin. She was evaluated by Dr. Castellanos of interventional cardiology who took the patient to the [employer]. She was found to have an 80-90% mid LAD stenosis and had a drug- eluting stent placed. Patient is doing well post procedure. Physical Exam (per Admitting): General Appearance: WD/WN, no apparent distress, + obese Head: normocephalic, atraumatic Eyes: normal inspection, EOMI, sclerae normal ENT: hearing grossly normal, + pertinent finding (Mucous membranes moist) Neck: supple, no JVD, trachea midline Respiratory/Chest: lungs clear, normal breath sounds, no respiratory distress Cardiovascular: regular rate, rhythm, normal peripheral pulses, + pertinent finding (+2 edema BLE) Abdomen/GI: normal bowel sounds, non tender, soft, no organomegaly Extremities/Musculoskelatal: normal inspection, no calf tenderness, normal capillary refill, + pertinent finding (Right radial compression dressing intact , no signs of bleeding) Neurologic/Psych: no motor/sensory deficits, alert, normal mood/affect, oriented x 3 Skin: normal color, warm/dry Hospital Course NON-ST ELEVATED PA No complaint of chest pain or shortness of breath Denies of any orthopnea Remains clinically stable Eager to be discharged home Presented with EKG change with subtle ST elevation in lead I, II and in V1 V2, new T-wave inversion in V1, V2 and V3 Underwent cardiac cath: Showed 80-90% LAD lesion had drug-eluting stent placed Patient started with aspirin Plavix will need dual antiplatelet therapy for 1 month on Eliquis for chronic A. fib will need combination of Plavix and Eliquis for at least one year Patient will be continued with statin metoprolol and CHRISTINA Repeat cardiac cath done for symptomatic chest pain elevated troponin post-cath Showed widely patent mid LAD stent Echo on 11/14/2017 left ventricular EF of 20-25% Severe hypokinesis to akinesis of the anteroseptal and inferoseptal segments at the mid and apical level There is apical hypokinesis/large LAD coronary artery territory abnormality -Appreciate input from cardiology -Patient will continue with cardiac meds including aspirin Plavix statin beta iman -referral to cardiac rehab -Cardiology following closely, appreciate input -STABLE TO BE DISCHARGED HOME TODAY SEVERE ISCHEMIC CARDIOMYOPATHY -Due to above -EF less than 25% -With severe wall motion abnormality -Continue with diuretics -No evidence of volume overload ACUTE CHF WITH SYSTOLIC DYSFUNCTION Due to severe cardiomyopathy Patient is on torsemide/ Aldactone CHRISTINA inhibitor is discontinued started on Entresto( Secubitril /valsartan ) by Cardiology INFECTED RIGHT PLANTER FOOT INFECTION Nonhealing diabetic foot wound plantar surface of right foot -Wound culture growing Proteus/staph species-pansensitive Mild leukocytosis possibly secondary to above -No fever or chills -Will change antibiotic to IV Rocephin (DC Augmentin/Bactrim) xRAY : 11/14/17 : IMPRESSION: 1. Chronic erosive changes of the first metatarsal head. These have not progressed since the prior radiograph. No convincing evidence of acute osteomyelitis. 2. Suspected wound along the medial soft tissues at the level of the first metatarsophalangeal joint. MRI of rt foot with and with out contrast shows no evidence of osteomyelitis Wound care following-appreciate input plan for possible debridement -Patient will need continued wound clinic follow-up as an outpatient A. FIB WITH RVR Remains on rapid A. fib heart rate 110 Patient does not have any symptoms On beta-iman/amiodarone Appreciate cardiology input On chronic anticoagulation with Eliquis TYPE 2 DIABETES Recent hemoglobin A1c more than 9 Hold oral antidiabetic medications while inpatient Insulin sliding scale CODE STATUS: Full code DVT PROPHYLAXIS Eliquis DISPOSITION discharge home today referral to cardiac rehab Social service consulted for discharge planning Medicine follow-up with Dr. Sherman at [facility] Close follow-up with [facility] cardiology in outpatient Total time spent on discharge = 40 MINS This includes examination of the patient, discharge planning, medication reconciliation, and communication with other providers. Discharge Instructions DI: Myocardial v5 Discharge Instructions Date of Service Nov 19, 2017. Admission Reason for Admission: Chest Pain/Shortness Of Breath Discharge Discharge Diagnosis / Problem: NSTEMI/CHF WITH ISCHEMIC CARDIOMYOPATHY /AFIB Discharge Goals Goal(s): Increase independence, Improve disease control, Diagnostic testing, Therapeutic intervention Activity Recommendations Activity Limitations: as noted below (as tolerated ) . Instructions / Follow-Up Instructions / Follow-Up Follow Up: It is important for you to keep your follow up appointments with your medical provider. HOSPITAL FOLLOW UP : on @ 11:[address] Coni García, [facility] CARDIOLOGY FOLLOW UP : IN A WEEK , OFFICE WILL CALL WITH APPOINTMENT FOLLOW UP WITH WOUND CLINIC -OFFICE WILL CALL WITH SCHEDULE YOU ARE DISCHARGED ON INSULIN LANTUS 18 U TWICE DAILY ( BEFORE BREAKFAST / BEFORE DINNER ) CHECK YOU BLOOD SUGAR -BEFORE BREAKFAST ( FASTING ) /BEFORE LUNCH /BEFORE DINNER /AT BEDTIME KEEP BLOOD SUGAR LOG AND BRING TO NEXT DOCTOR'S VISIT DO NOT TAKE INSULIN IF BLOOD SUGAR < 100 DO NOT TAKE PRIOR DIABETIC MEDS : METFORMIN GLIPIZIDE TRULICITY YOU WILL NEED CARDIAC REHAB -TO RECOVER FORM RECENT HEART ATTACK OFFICE WILL CALL WITH APPOINTMENT PLEASE GET REFERRAL FROM YOUR FAMILY PHYSICIAN FOR DIABETIC CLINIC YOU HAD A VERY RECENT HEART ATTACK : PLEASE FOLLOW THE INSTRUCTIONS BELOW Home Care: * Take your medications exactly as directed. Don't skip doses. * Remember that recovery after a heart attack takes time. Plan to rest for at lease 4-8 weeks while you recover. Then return to normal activity when your doctor says it's okay. * Ask your doctor about joining a heart rehabilitation program. * Tell your doctor if you are feeling depressed. Feelings of sadness are common after a heart attack, but it is important that you speak to someone if you are feeling overwhelmed by these feelings. * If you are having chest pain, call 911 for an ambulance. Do NOT drive yourself to the hospital. * Ask your family members to learn CPR. * Learn to take your own blood pressure and pulse. Keep a record of your results. Ask your doctor when you should seek emergency medical attention. He or she will tell you which blood pressure reading is dangerous. Lifestyle Changes: * Maintain a healthy weight. Get help to lose any extra pounds. * Cut back on salt. * Limit canned, dried, packaged, and fast foods. * Don't add salt to your food. * Season foods with herbs instead of salt when you cook. * Break the smoking habit. Enroll in a stop-smoking program to improve your chances of success. * Limit fatty foods. * Ask your doctor about having your lipid levels checked regularly. * Build up your activity according to your doctor's recommendation. * Ask your doctor when it's okay to resume sexual activity. * Try to manage stress. CONGESTIVE HEART FAILURE : YOUR HEART SUSTAINED SIGNIFICANT DAMAGE DUE TO HEART ATTACK WITH VERY DIMINISHED PUMPING FUNCTION -CONTINUE TO WEAR ZOLL VEST INSTRUCTED BY CARDIOLOGY PLEASE FOLLOW THE INSTRUCTIONS BELOW TO LIMIT THE CHANCE OF WORSENING OF HEART FAILURE Call your Primary Care doctor if any of the following symptoms or problems start or get worse: * Shortness of breath or difficulty breathing * Wake up at night short of breath * Chest pain * Cough * Swelling of your hands, feet, or legs * More fatigued or tired with your normal activity * Palpitations - sudden fast heart beats WEIGHT * Weigh yourself every morning after using the bathroom. * Use the same scale. * Wear the same amount of clothing. * Write your weight down on a chart. * Call your Primary Care doctor if you gain more than 2-3 pounds in 1-2 days. MEDICATIONS * Use this discharge instruction sheet for medication instructions. * Take your medications at the time your doctor ordered. * Do not skip a dose of your medicines. * If you miss a dose of medicine, take it as soon as possible, but DO NOT DOUBLE A DOSE. * Read your medicine information when you get home. * Know all of the side effects of your medicine. If in doubt, ask your pharmacist * Call your Primary Care doctor's office if you have any side effects. * Be sure all of your doctors know what medicine and herbs you take (including cold, flu, and herbal medicine). Take the following with you to your follow-up doctor appointments: * Weight Chart * Medication List * List of questions Do not drink excessive alcohol, beer or wine. Current Hospital Diet Patient's current hospital diet: AHA Diet (Heart Healthy), Diabetes Type 2 Diet Discharge Diet Recommended Diet: AHA Diet (Heart Healthy), Diabetes Type 2 Diet Pending Studies Studies pending at discharge: no Laboratory Results Hemoglobin A1c Test 10/14/17 03:39 Range/Units Estimated Average Glucose 220 mg/dl Hemoglobin A1c 9.3 H 4.5-5.6 % Lipid Panel Test 10/14/17 03:39 Range/Units Triglycerides Level 228 H 0-150 mg/dl Cholesterol Level 103 0-200 mg/dl HDL Cholesterol 32 mg/dl Cholesterol/HDL Ratio 3.2 LDL Cholesterol, Calculated 25 mg/dl Medical Emergencies . Who to Call and When: Medical Emergencies: If at any time you feel your situation is an emergency, please call 911 immediately. Call 911 immediately or go to your nearest Emergency Room if you experience any of the following: Warning Signs and Symptoms of a Heart Attack * Chest pain that is not relieved by medication * Shortness of breath . Non-Emergent Contact Non-Emergency issues call your: Primary Care Provider . . "Provider Documentation" section prepared by Shyla Washington. . AMI Core Measures Reason no ASA as I/P: Treatment provided - N/A Reason no ASA at D/C: Treatment provided - N/A Reason no statin as I/P: Treatment provided - N/A Reason no statin at D/C: Treatment provided - N/A
[2017-11-19] MEDS ORDERED: METOPROLOL SUCC 50MG EXT REL TAB PO SCH (21:00)
[2017-11-25] MEDS ORDERED: CRD200 PO (19:40)
== END 2017-11-19 16:13 | disposition home or self-care (01) | DRG 246 ==
LOC: EDBD 13:36 → C.EDA 13:37 → C.2T 15:44 → ENRESERV 16:15 → C.MSICU 11-11 09:45 → OBSVTOIN 11-12 10:19 → ENRESERV 11-16 16:56 → C.2T 11-16 19:20
PROVIDERS: ADMIT Internal Medicine Interventional Cardiology; ATTEND Hospitalist
PROC: B211YZZ Fluoroscopy of Multiple Coronary Arteries using Other Contrast (ICD-10-PCS; principal; 2017-11-10 14:15)
PROC: 027034Z Dilation of Coronary Artery, One Artery with Drug-eluting Intraluminal Device, Percutaneous Approach (ICD-10-PCS; principal; 2017-11-10 14:15)
PROC: 4A023N7 Measurement of Cardiac Sampling and Pressure, Left Heart, Percutaneous Approach (ICD-10-PCS; principal; 2017-11-10 14:15)
PROC: 4A023N7 Measurement of Cardiac Sampling and Pressure, Left Heart, Percutaneous Approach (ICD-10-PCS; 2017-11-11)
PROC: B211YZZ Fluoroscopy of Multiple Coronary Arteries using Other Contrast (ICD-10-PCS; 2017-11-11)
PROC: 5A2204Z Restoration of Cardiac Rhythm, Single (ICD-10-PCS; 2017-11-14)
PROC: 0HDMXZZ Extraction of Right Foot Skin, External Approach (ICD-10-PCS; 2017-11-16)
DX: I21.4 Non-ST elevation (NSTEMI) myocardial infarction (principal); J96.01 Acute respiratory failure with hypoxia; I11.0 Hypertensive heart disease with heart failure; I50.21 Acute systolic (congestive) heart failure; I48.1 Persistent atrial fibrillation; I25.10 Atherosclerotic heart disease of native coronary artery without angina pectoris; D72.829 Elevated white blood cell count, unspecified; E11.40 Type 2 diabetes mellitus with diabetic neuropathy, unspecified; E83.42 Hypomagnesemia; E11.621 Type 2 diabetes mellitus with foot ulcer; L97.519 Non-pressure chronic ulcer of other part of right foot with unspecified severity; K21.9 Gastro-esophageal reflux disease without esophagitis; M35.3 Polymyalgia rheumatica; E66.01 Morbid (severe) obesity due to excess calories; I25.5 Ischemic cardiomyopathy; E78.5 Hyperlipidemia, unspecified; M19.90 Unspecified osteoarthritis, unspecified site; Z82.49 Family history of ischemic heart disease and other diseases of the circulatory system; Z79.01 Long term (current) use of anticoagulants; Z79.82 Long term (current) use of aspirin; Z79.899 Other long term (current) drug therapy; Z79.84 Long term (current) use of oral hypoglycemic drugs; Z88.8 Allergy status to other drugs, medicaments and biological substances; Z87.891 Personal history of nicotine dependence; Z96.649 Presence of unspecified artificial hip joint; Z96.659 Presence of unspecified artificial knee joint; Z98.890 Other specified postprocedural states

== ENCOUNTER 2017-11-24 14:00 | Observation (INO) | payer BC, OTHER ==
[~2017-11-24] VITALS: Ht 162.6 cm; Wt 125.1 kg
[~2017-11-24 14:00] MED LIST changes: -ATOR10TA82 PO; +CEPH500C2 PO; +CRD200 PO; +DMD20 PO; -DULA0.5I INJ; -GLC/500 PO; -GLIP10TA3 PO; +INSDGIPEN SC; +INSU32MI13 SC; +LPT40 PO; +NTRSLP4 SL; +PLV75 PO; +SACU1TAB PO
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
[2017-11-24 14:54] LABS: BASO % 0.5 %; BASO ABS # 0.05 K/uL (0-0.2); EOS % 2.8 %; HEMATOCRIT 39.1 % (37-47); IG# 0.04 K/uL (0.00-0.02); LYMPH % 17.5 %; LYMPH ABS # 1.86 K/uL (1.2-3.4); MEAN CELL VOLUME 86.9 fL (80-100); MEAN CORPUSCULAR HEMOGLOBIN 26.7 pg (25-34); MEAN CORPUSCULAR HGB CONC 30.7 g/dl (32-36); MEAN PLATELET VOLUME 9.3 fL (7.4-10.4); MONO % 5.7 %; MONO ABS # 0.61 K/uL (0.11-0.59); NEUT % 73.1 %; NEUT ABS # 7.76 K/uL (1.4-6.5); PLATELET COUNT 404 K/uL (130-400); RED CELL DISTRIBUTION WIDTH SD 44.2 fL (36.4-46.3); WHITE BLOOD COUNT 10.62 K/uL (4.8-10.8)
--- NOTE | 2017-11-24 15:01 | DIAGNOSTIC IMAGING REPORT ---
SINGLE VIEW CHEST CLINICAL HISTORY: Atypical chest pain. FINDINGS: An AP, portable, upright chest radiograph is compared to study dated 11/11/2017. The examination is degraded by portable technique and patient rotation. The heart is mildly enlarged and there is atherosclerotic calcification of the thoracic aorta. The pulmonary vasculature is noncongested. There is chronic elevation right hemidiaphragm with associated atelectasis. No focal airspace consolidation or large pleural effusion is identified. No pneumothorax is seen. The skeletal structures are osteopenic. Degenerative change is seen in the thoracic spine and shoulders. A surgical anchor is noted in the right humeral head. Surgical clips are noted in the right upper quadrant. IMPRESSION: Cardiomegaly and chronic parenchymal changes as above. No acute cardiopulmonary abnormality is seen. Electronically signed by: Kofi Lopez M.D. 11/24/2017 2:59 PM Dictated Date/Time: 11/24/2017 2:58 PM
[2017-11-24 15:04] LABS: ALBUMIN 3.3 gm/dl (3.4-5.0); CALCIUM 9.6 mg/dl (8.5-10.1); POTASSIUM 4.8 mmol/L (3.5-5.1)
[2017-11-24 15:09] LABS: TOTAL PROTEIN 8.1 gm/dl (6.4-8.2)
[2017-11-24] MEDS ORDERED: ATOR-24 PO (15:55)
[2017-11-24] MEDS ORDERED: METO100T44 PO (15:55)
[2017-11-24] MEDS ORDERED: APIX1TAB3 PO (15:55)
[2017-11-24] MEDS ORDERED: DMD20 PO (15:55)
[2017-11-24] MEDS ORDERED: SACU1TAB PO (15:55)
[2017-11-24] MEDS ORDERED: CEPH500C2 PO (15:55)
[2017-11-24] MEDS ORDERED: CLOP1TAB15 PO (15:55)
[2017-11-24] MEDS ORDERED: NTRGSL/4 UT (15:55)
[2017-11-24] MEDS ORDERED: AMIO200T4 PO (15:55)
[2017-11-24] MEDS ORDERED: INSDGIPEN SC (15:55)
[2017-11-24 16:58] VITALS: O2SAT 98; BMI 47.1
[2017-11-24] MEDS ORDERED: MAGNESIUM SULFATE 1GM / D5W 100 ML IV SCH (16:58)
[2017-11-24] MEDS ORDERED: DEXTROSE 50% 50 ML SYR IV PRN (17:00)
[2017-11-24] MEDS ORDERED: POLYETHYLENE (MIRALAX) 17 GM PACK PO PRN (17:00)
[2017-11-24] MEDS ORDERED: ACETAMINOPHEN 325 MG TAB PO PRN (17:00)
[2017-11-24] MEDS ORDERED: GLUCAGON FOR INJ 1 MG VIAL SQ PRN (17:00)
[2017-11-24] MEDS ORDERED: NITROGLYCERIN 0.4 MG SL PER TAB CHARGE SL PRN (17:00)
[2017-11-24] MEDS ORDERED: GLUCOSE 10 TABS/TUBE PO PRN (17:00)
[2017-11-24] MEDS ORDERED: GLUCOSE 40% GEL 15 GM TUBE PO PRN (17:00)
[2017-11-24] MEDS ORDERED: ARTIFICIAL TEARS OP SOLN OPB PRN (17:30)
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
[2017-11-24 18:52] LABS: INR 1.2 (0.9-1.1); PTT PATIENT 27.5 SECONDS (21.0-31.0)
[2017-11-24 19:40] VITALS: BP 156/93; PULSE 79; TEMP 36.6; O2SAT 97
[2017-11-24] MEDS ORDERED: VENLAFAXINE HCL XR 75 MG CAPXR PO SCH (21:00)
[2017-11-24] MEDS ORDERED: ASPIRIN 81 MG ECTAB PO SCH (21:00)
[2017-11-24] MEDS: APIXABAN 2.5 MG TAB PO SCH (21:26)
[2017-11-24] MEDS: METOPROLOL SUCC 50MG EXT REL TAB PO SCH (21:26)
[2017-11-24] MEDS: OXYBUTYNIN CHLORIDE 5 MG TAB PO SCH (21:27)
[2017-11-24] MEDS: MAGNESIUM OXIDE 400 MG TAB PO SCH (21:27)
[2017-11-24] MEDS: SACUBITRIL-VALSARTAN 24-26 MG TAB PO SCH (21:27)
[2017-11-24] MEDS: CEPHALEXIN MONOHYDRATE 500 MG CAP PO SCH (21:27)
[2017-11-24] MEDS: AMIODARONE 200 MG TAB PO SCH (21:28)
[2017-11-24] MEDS: INSULIN ASPART 100 UNITS/ML 3 ML PEN SC SCH (21:29)
[2017-11-24] MEDS: INSULIN GLARGINE SOLOSTAR 100 UNITS/ML 3 ML PEN SC SCH (21:30)
[2017-11-24] MEDS ORDERED: IV FLUIDS COMPLETED PRN (22:00)
[2017-11-24 23:42] VITALS: BP 113/51; PULSE 61; TEMP 37; O2SAT 94
[2017-11-25] VITALS (9 sets, daily range): BP systolic 107–139; BP diastolic 47–64; PULSE 54–60; TEMP 36.6–37.1; O2SAT 91–98; Ht 162.6 cm; Wt 125.1 kg
[2017-11-25 06:03] LABS: HEMATOCRIT 36.2 % (37-47); HEMOGLOBIN 11.2 g/dL (12.0-16.0); MEAN CELL VOLUME 86.8 fL (80-100); MEAN CORPUSCULAR HEMOGLOBIN 26.9 pg (25-34); MEAN CORPUSCULAR HGB CONC 30.9 g/dl (32-36); MEAN PLATELET VOLUME 9.1 fL (7.4-10.4); PLATELET COUNT 359 K/uL (130-400); RED CELL DISTRIBUTION WIDTH CV 14.2 % (11.5-14.5); RED CELL DISTRIBUTION WIDTH SD 44.7 fL (36.4-46.3); WHITE BLOOD COUNT 7.44 K/uL (4.8-10.8)
[2017-11-25 06:32] LABS: CALCIUM 8.7 mg/dl (8.5-10.1); CREATININE 0.76 mg/dl (0.60-1.20); POTASSIUM 4.4 mmol/L (3.5-5.1)
[2017-11-25] MEDS ORDERED: MAGNESIUM SULFATE 1GM / D5W 100 ML IV ONE (07:30)
[2017-11-25] MEDS: MAGNESIUM OXIDE 400 MG TAB PO SCH (08:07)
[2017-11-25] MEDS: CEPHALEXIN MONOHYDRATE 500 MG CAP PO SCH ×3 (08:07→16:52)
[2017-11-25] MEDS: AMIODARONE 200 MG TAB PO SCH (08:08)
[2017-11-25] MEDS: SACUBITRIL-VALSARTAN 24-26 MG TAB PO SCH (08:08)
[2017-11-25] MEDS: METOPROLOL SUCC 50MG EXT REL TAB PO SCH (08:08)
[2017-11-25] MEDS: APIXABAN 2.5 MG TAB PO SCH (08:08)
[2017-11-25] MEDS: OXYBUTYNIN CHLORIDE 5 MG TAB PO SCH (08:08)
[2017-11-25] MEDS: INSULIN ASPART 100 UNITS/ML 3 ML PEN SC SCH ×3 (08:13→16:15)
[2017-11-25] MEDS: INSULIN GLARGINE SOLOSTAR 100 UNITS/ML 3 ML PEN SC SCH (08:14)
[2017-11-25] MEDS ORDERED: ATORVASTATIN 40 MG TAB PO SCH (09:00)
[2017-11-25] MEDS ORDERED: CLOPIDOGREL BISULFATE 75 MG TAB PO SCH (09:00)
[2017-11-25] MEDS ORDERED: TORSEMIDE 20 MG TAB PO SCH (09:00)
[2017-11-25] MEDS ORDERED: MULTIVITAMIN TAB PO SCH (09:00)
[2017-11-25] MEDS ORDERED: CALCIUM 600MG + VIT D 400 IU TAB PO SCH (09:00)
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
[2017-11-25] MEDS ORDERED: CRD200 PO (19:40)
--- NOTE | 2017-11-25 19:46 | Discharge Instructions ---
Discharge Instructions Date of Service Nov 25, 2017. Admission Reason for Admission: chest pain . Discharge Discharge Diagnosis / Problem: chest pain - no sign of a new heart attack Discharge Goals Goal(s): Decrease discomfort Activity Recommendations Activity Limitations: as noted below Exercise/Sports Limitations: gradually increase as tolerated Driving or Machine Use: no driving until Cardiology says OK . Instructions / Follow-Up Instructions / Follow-Up APPOINTMENTS: FAMILY MEDICINE 12/15/2017 1:00 PM Jason West MD CARDIOLOGY 12/31/2017 10:30 AM Steven Levine Jr., DO [facility]. Office will call you if they can offer an appointment sooner. OTHER INSTRUCTIONS: Reduce amiodarone (Pacerone or Cordarone) dose to 200 mg once a day. Wear vest as instructed. No driving until further notice. Use acetaminophen (Tylenol) for pain as instructed. Do not use ibuprofen (Advil or Motrin), naproxen (Aleve), or other similar medications. Seek medical attention if you have: * temperature above 101 * chest pain or trouble breathing * abdominal pain, nausea, vomiting * diarrhea, dark stools or bloody stools * any unanswered questions or concerns Call 911 if symptoms are severe. Call if you have any questions or problems. My cell # is [phone]. You can also reach a [facility] hospitalist on duty at [facility] 24 hours a day by calling [phone]. Please take good care of yourself. Tee Ace . Current Hospital Diet Patient's current hospital diet: AHA Diet (Heart Healthy), Diabetes Type 2 Diet Discharge Diet Recommended Diet: AHA Diet (Heart Healthy), Diabetes Type 2 Diet Procedures Procedures Performed: CT head CT neck Pending Studies Studies pending at discharge: no Laboratory Results Hemoglobin A1c Test 10/14/17 03:39 Range/Units Estimated Average Glucose 220 mg/dl Hemoglobin A1c 9.3 H 4.5-5.6 % Lipid Panel Test 10/14/17 03:39 Range/Units Triglycerides Level 228 H 0-150 mg/dl Cholesterol Level 103 0-200 mg/dl HDL Cholesterol 32 mg/dl Cholesterol/HDL Ratio 3.2 LDL Cholesterol, Calculated 25 mg/dl Medical Emergencies . Who to Call and When: Medical Emergencies: If at any time you feel your situation is an emergency, please call 911 immediately. . Non-Emergent Contact Non-Emergency issues call your: Primary Care Provider, Chief Customer Officer, Hospital Doctor . . "Provider Documentation" section prepared by Tee Ace. .
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
== END 2017-11-25 20:10 | disposition home or self-care (01) ==
LOC: EDBD 14:00 → C.EDB 14:01 → C.2E 16:40 → ENRESERV 18:40
PROVIDERS: ADMIT Internal Medicine; ATTEND Hospitalist
DX: R07.9 Chest pain, unspecified (principal); V47.0XXA Car driver injured in collision with fixed or stationary object in nontraffic accident, initial encounter; R94.31 Abnormal electrocardiogram [ECG] [EKG]; E83.42 Hypomagnesemia; I25.10 Atherosclerotic heart disease of native coronary artery without angina pectoris; I48.91 Unspecified atrial fibrillation; I11.0 Hypertensive heart disease with heart failure; I50.22 Chronic systolic (congestive) heart failure; E11.9 Type 2 diabetes mellitus without complications; E78.5 Hyperlipidemia, unspecified; I47.1 Supraventricular tachycardia; M19.90 Unspecified osteoarthritis, unspecified site; I25.5 Ischemic cardiomyopathy; I25.2 Old myocardial infarction; E66.9 Obesity, unspecified; Z68.42 Body mass index [BMI] 45.0-49.9, adult; Z87.891 Personal history of nicotine dependence; Z96.651 Presence of right artificial knee joint; Z98.61 Coronary angioplasty status; Z79.82 Long term (current) use of aspirin; Z79.4 Long term (current) use of insulin; Z90.49 Acquired absence of other specified parts of digestive tract; Z82.49 Family history of ischemic heart disease and other diseases of the circulatory system

== ENCOUNTER 2018-11-16 11:44 | Observation (INO) ==
[~2018-11-16 11:44] MED LIST changes: -APIX1TAB3 PO; -ASPI81TA28 PO; -CALCTAB7 PO; +CEFAZOLIN 1000MG 1,000 MG/7.5 ML SYR IV SCH; -CEPH500C2 PO; -CINN1CAP2 PO; -COEN150C4 PO; -CRD200 PO; -DMD20 PO; -DTR/5 PO; -INSDGIPEN SC; -INSU32MI13 SC; -LPT40 PO; -MAGN400T6 PO; -MULT-506 PO; -NTRSLP4 SL; -PLV75 PO; -POLYSOL4 OPB; -SACU1TAB PO; -TPRSR50 PO; -VENL-273 PO
--- NOTE | 2018-11-16 11:51 | Pre Anesthesia Assessment ---
Date of Service November 16, 2018 Pre Sedation Assessment Cardiovascular + bradycardic Respiratory normal respiratory effort, lungs clear to auscultation Pre-Sedation Airway Assessment Smoking Status: Never smoker Hx Difficult Intubation: No Short, Thick Neck: Yes Thyromental Distance: > or= 3.5 Finger Breadths Oral Cavity: + Dental Abnormalities Mallampati Class: III ASA: ASA3 Procedure Planning Contraindications for Sedation: none Current Medications Reviewed: Yes Notes The planned sedation has been discussed with the patient. Informed Consent was obtained. I have identified the patient, determined the appropriateness of sedation and have assessed the patient immediately prior to the procedure. All medicine(s) and interventions are by my order.
--- NOTE | 2018-11-16 11:51 | History & Physical Bridge Note ---
Date of Service November 16, 2018 History & Physical Bridge Note I have examined the patient, reviewed the History & Physical and in the interval since the performance of the History & Physical I have noted the following changes of clinical significance: no changes noted
[2018-11-16] MEDS ORDERED: LIDOCAINE HCL 1% 20 ML VIAL ONE (12:20)
[2018-11-16] MEDS ORDERED: BUPIVACAINE 0.25% 30 ML VIAL ONE (12:20)
[2018-11-16] MEDS ORDERED: BACITRACIN INJ 50,000 UNIT VIAL ONE (12:20)
[2018-11-16] MEDS ORDERED: fentaNYL citrate 100 MCG/2 ML VIAL ONE ×2 (12:27→13:43)
[2018-11-16] MEDS ORDERED: MIDAZOLAM HCL 5 MG/ML 1 ML VIAL ONE ×2 (12:27→13:43)
[2018-11-16] MEDS ORDERED: CEFAZOLIN 3000MG/72.5 ML BAG IV ONE (12:35)
[2018-11-16] MEDS ORDERED: OXYCODONE/ACETAMINOPHEN 5mg/325mg TAB PO PRN (14:31)
[2018-11-16] MEDS ORDERED: ACETAMINOPHEN 325 MG TAB PO PRN (14:31)
--- NOTE | 2018-11-16 14:35 | Operative Report ---
Post Operative Report Pre & Post Diagnosis tbs Operation Date: 11/16/18 13:00 <No data on this case meets the specified criteria> Procedure Operation Date: 11/16/18 13:00 Actual Procedures p Pacer with A/V Leads (Dual) - Ludmila Doty DO Surgeon Ludmila Doty, DO Silver Steward none Estimated Blood Loss 15 Findings Consistent with Post-Op Diagnosis Specimens none Description of Procedure see official report I attest to the content of the Intraoperative Record and any orders documented therein. Any exceptions are noted below.
--- NOTE | 2018-11-16 14:35 | Post Anesthesia Assessment ---
Date of Service November 16, 2018 Post Sedation Assessment Vital Signs Temp Pulse Resp BP Pulse Ox 11/16/18 12:18 36.6 C 63 18 177/53 H 97 Recovery Score Activity: Moves 4 extremities Respiration: Deep Breath/Cough Circulation: +/-20% PreAnes Value Consciousness: Fully Awake Oxygen Saturation: > 92% On Room Air Discharge Sedation Level of Care: Fast Track Phase II Post Sedation Plan On clinical assessment, the patient appears to have tolerated the sedation without complications. Patient is recovering as anticipated. Patient will continue to be monitored by nursing and may be discharged when sedation discharge criteria are met per below protocol. Upon Completions of procedure and additional 15 minutes continue every 5 minute vital signs and the P.A.R. score; then discharge to a Phase I or Fast Track to Phase II per the following guidelines: * Discharge Patient to appropriate Phase II area if PAR is 8 or greater or return to pre- procedure baseline. The post - procedure orders will be as directed. * If PAR score is less than 8 or not return to pre-procedure baseline then patient will follow Phase I monitoring till PAR is reached for Phase II. The Phase I may be done in procedure room or may call to secure a Phase I area. * If naloxone or flumazenil are used for reversal, hold in Phase I for continued monitoring from when last reversal dose was given for a minimum of 60 minutes or longer pending the nurse and/or physician discretion of patient condition before discharge to Phase II. Please call the Sedation Physician to re-evaluate and complete post-note for discharge to Phase II area. Do NOT discharge from procedure sedation or Phase 1 until post- sedation evaluation note is complete by procedure /sedation MD Sedation Discharge Instructions to be given to the patient at discharge to home.
--- NOTE | 2018-11-16 14:41 | Discharge Summary ---
Date of Service November 16, 2018 Admission HPI Pt admitted due to TBS for elective pacemaker Admission Exam Per Admitting Provider aaox3, NAD NC/AT, EOMI Supple No JVD Nrl S1/S2, No murmur CTA b/l no w/r/r soft nt/nd no LE edema b/l skin intact no focal deficits Principal Diagnosis Principal Diagnosis tbs s/p dual chamber ppm Discharge Exam aaox3, NAD NC/AT, EOMI Supple No JVD Nrl S1/S2, No murmur CTA b/l no w/r/r soft nt/nd no LE edema b/l skin intact no focal deficits left pectoral incision intact, no hematoma mild ecchymosis Discharge Data Allergies Allergy/AdvReac Type Severity Reaction Status Date / Time cetirizine Allergy Intermediate ANAPHYLAXIS Verified 08/25/18 10:10 hydroxyzine Allergy Unknown Verified 08/25/18 10:10 Procedures Performed Operation Date: 11/16/18 13:00 Actual Procedures p Pacer with A/V Leads (Dual) - Ludmila Doty DO Ordered Studies 11/16/18 07:00 EP Lab Images for PACS ONCE Hospital Course (1) Tachy-barbra syndrome: Total Time Total Time Spent Total Time Spent (In Minutes): 30 Total Time Includes: Examination of the Patient, Discharge Planning, Medication Reconciliation and Other Discharge Plan Discharge Items Patient Disposition: Home - Self-Care Reason For Visit: Tachy Barbra Syndrome Discharge Diagnosis: tbs Condition: Good Discharge Goals: Improve function Activity: As commented below Activity Comment: do not lift the left elbow over the left shoulder for 1 month Lifting: No more than 10 pounds Lifting Comment: do not lift more than 10 pounds with the left arm for 2 weeks Bathing: Keep incision dry Bathing Comment: can shower wednesday11/18/18 do not scrub the incision just let wa ter run over Sexual Activity: After two weeks Driving/Machine Use: Resume 1 day after discharge Non-emergency contact: Food Scientist Call non-emergency contact if: you have any medication questions Follow-up/Referrals: Jason West MD [Primary Care Provider] - Diet: Heart Healthy Addtl Provider Instructions: device and wound check wednesday11/25/18 as scheduled at [facility] If you notice any swelling call immediately Prescriptions: Continued multivitamin Tablet 1 tab PO PM RF: 0 atorvastatin 40 mg Tablet 40 mg PO QAM RF: 0 torsemide 20 mg tablet 20 mg PO BID RF: 0 metoprolol succinate 100 mg Tablet Extended Release 24 Hr 100 mg PO QAM RF: 0 clopidogrel [Plavix] 75 mg Tablet 75 mg PO QAM RF: 0 nitroglycerin [Nitrostat] 0.4 mg Tablet, Sublingual 0.4 mg Sublingual DIRECTED PRN (Reason: Chest Pain) RF: 0 oxybutynin chloride 5 mg Tablet 5 mg PO BID RF: 0 coenzyme Q10 [CoQ-10] 100 mg Capsule 100 mg PO QDL RF: 0 cinnamon bark [Cinnamon] 500 mg Capsule 500 mg PO QAM RF: 0 Lantus Solostar U-100 Insulin 100 unit/mL (3 mL) Insulin Pen 20 unit SUBCUT BIDM RF: 0 Eliquis 5 mg Tablet 5 mg PO BID RF: 0 Entresto 24-26 mg Tablet 1 tab PO BID RF: 0 magnesium oxide 400 mg magnesium Tablet 400 mg PO BID RF: 0 calcium carbonate [Calcium 600] 600 mg calcium (1,500 mg) Tablet 600 mg PO BIDM RF: 0 Stand-Alone Forms: [facility] Discharge Orders: Discharge Order (Routine); Ordered 11/17/18 Ordered By: Ludmila Doty Admission Data Admit Date/Time: 11/16/18 14:59 Attending Provider: Ludmila Doty Admit Provider: Ludmila Doty Primary Care Provider: Jason West Service: Surgical Services
[2018-11-16] MEDS ORDERED: PHARMACY GLYCEMIC MGMT CONSULT PRN (15:25)
--- NOTE | 2018-11-16 15:40 | Pharmacy Report ---
Pharmacy Glycemic Short Note 2 - Date of Service November 16, 2018 - Glycemic Short BSG Results (Last 24 hours): 11/16/18 12:38 POC Glucose 104 H OUTPATIENT ANTIDIABETIC REGIMEN: * Lantus 20 units SQ BID * HbA1c: 7.7% (06/19/18) -- updated A1c pending with AM labs tomorrow ASSESSMENT: * Ms Baig is a 73yo diabetic female who is POD 0 s/p pacer placement in the OR today. * Patient reports last taking her Lantus yesterday evening. * Patient gets all of her glycemic control from BID Lantus. Since admission is expected to be short, will try to keep patient on a similar regimen here. * If BSGs become unstable, will have to adjust regimen to something closer to 50/50 basal/bolus. * Patient is ordered a heart-healthy diet. Consider adding diabetic diet for carb control. * H&P not available at this time, but based on A1c from <6 months ago, patient appears to have well-managed glycemic control. PLAN FOR INPATIENT GLYCEMIC CONTROL: * Basal insulin * Lantus 18 units SQ BID -- dose reduced slightly empirically, but will resume home dose tomorrow if reasonable to do so -- post-op BSG 104 * Bolus insulin -- for correction only (patient gets prandial coverage from Lantus) * NovoLog per scale ACHS or Q6hrs while NPO * Goal Range: Low 110 mg/dL - High 160 mg/dL * Correction Factor: 40 mg/dL/unit * Nutritional / Prandial insulin: none at this time PLAN FOR DISCHARGE: * A1c pending with tomorrow's labs * Based on A1c from 06/2018, patient's glycemic control is adequate and she should be able to resume home regimen on discharge. * Patient should have a plan in place to modify/hold insulin doses when ill/NPO since she gets all of her basal and prandial coverage from Lantus. If patient reports having episodes of hypoglycemic at home, insulin regimen may require adjustments.
[2018-11-16] MEDS: INSULIN ASPART 100 UNITS/ML 3 ML PEN SC SCH ×2 (17:03→21:12)
[2018-11-16] MEDS: TORSEMIDE 20 MG TAB PO SCH (17:04)
[2018-11-16] MEDS: INSULIN GLARGINE SOLOSTAR 100 UNITS/ML 3 ML PEN SQ SCH (17:05)
[2018-11-16] MEDS: SACUBITRIL-VALSARTAN 24-26 MG TAB PO SCH (21:09)
[2018-11-16] MEDS: OXYBUTYNIN CHLORIDE 5 MG TAB PO SCH (21:09)
[2018-11-16] MEDS: MAGNESIUM OXIDE 400 MG TAB PO SCH (21:10)
[2018-11-16] MEDS: APIXABAN 5 MG TABLET PO SCH (21:10)
[2018-11-16] MEDS ORDERED: COUGH DROP (SUGAR FREE) LOZ 24 LOZ/1 BOX BUCCAL ONE (21:59)
[2018-11-16] MEDS ORDERED: Nursing to Pharmacy Communication ONE (22:02)
[2018-11-16] MEDS ORDERED: COUGH DROP (SUGAR FREE) LOZ 24 LOZ/1 BOX BUCCAL PRN (22:06)
--- NOTE | 2018-11-17 01:38 | Operative Report ---
DATE OF OPERATION: 11/16/2018 PREOPERATIVE DIAGNOSIS: Tachybrady syndrome. POSTOPERATIVE DIAGNOSIS: Tachybrady syndrome. PROCEDURE: Dual chamber rate responsive permanent pacemaker under fluoroscopic guidance. SURGEON: Ludmila Doty DO. GALLERY OR MUSEUM GUIDE: None. ANESTHESIA: Monitored anesthetic care administered under my supervision by Denys Sánchez. Start time 1306 hours and end time 1416 hours. Total of 8 mg of Versed, 200 mcg of fentanyl. INTRAVENOUS FLUIDS: 100 mL ANTIBIOTICS: 3 grams of Ancef. BLOOD LOSS: 15 mL COMPLICATIONS: None. CONDITION: Stable. URINE OUTPUT: None. SPECIMENS: None. FINDINGS: See below. DRAINS: None. INDICATIONS: This is a 73-year-old female who has a past medical history of tachybrady syndrome as well as coronary artery disease, status post a STEMI in October of 2017 where she got a PCI to the LAD. At that time she also had some cardiogenic shock and her ejection fraction was significantly reduced, but it nicely normalized. She has a history of SVT and syncope in 09/2017. Has a history of paroxysmal atrial fibrillation on Eliquis and high dose AV davian blockers, diabetes, hypertension, hyperlipidemia, obesity and snoring. Due to her tachybrady syndrome, she was recommended a dual chamber pacemaker. CONSENT: Consent was obtained prior to the patient going into Electrophysiology Lab. The patient was informed of the risks, benefits, alternative to the procedure. Risks include but not limited to sudden cardiac , cardiac arrhythmia, cerebrovascular accident, myocardial infarction, injury to the blood vessels, chamber of the heart, lung, bleeding and infection. The patient understood these risks and agreed to the procedure as planned. Informed consent was obtained. DESCRIPTION OF THE PROCEDURE: The patient was brought into the electrophysiology lab in a fasting state. She was connected to continuous laboratory monitor. A timeout was performed to ensure patient's identity and procedure correctly. The patient was prepped and draped over the left tonsillar space in normal surgical standard fashion. Monitored conscious sedation was given throughout the procedure for the patient's comfort level. [place] precautions were maintained throughout the procedure. A 10 mL of 1% lidocaine, bupivacaine mixture were given in the left deltopectoral groove. Incision was made in left deltopectoral groove. Blunt dissection performed down to identify cephalic vein. Cephalic vein was identified and isolated using 0 silk ties. The vein was nicked with an 11 blade and a guidewire was inserted without any resistance. An 8-[place] sheath was inserted over the guidewire without any resistance. Guidewire and dilator removed and second guidewire was inserted through the 8-[place] sheath to allow for venous access. The sheath was removed and the dilator was then flushed. Sheath was flushed and the reinserted over the sheath and then the sheath was reinserted over the guidewire. The dilator was removed. Then the guidewire and dilator removed and the right ventricular pacing lead was advanced into right ventricle and positioned in the right ventricular apex under fluoroscopic guidance. There was adequate pacing and sensing thresholds and no diaphragmatic stimulation in high output pacing. The 8-[place] sheath was peeled away and lead was fixated to pectoralis muscle using a suture. A second 8-[place] sheath was inserted over the retained guidewire without any resistance. Guidewire and dilator removed. The right atrial pacing lead was then advanced into right atrium and positioned atrial appendage under fluoroscopic guidance. Initially with a blue J however, it did not hold, so we used a estrada J. There was adequate pacing and sensing thresholds and and no diaphragmatic stimulation in high output pacing. An 8-[place] sheath was peeled away and lead was fixated to pectoralis muscle using 0-silk suture. There was some backbleeding at the cephalic vein site, so a pursestring using 2-[address] needle was placed around to stop the bleeding. Additional 10 mL of 1% lidocaine were given in the pectoralis fascia. Then using blunt dissection with the pectoral fascia over the pectoralis muscle, a pacemaker pocket was created. Pocket was flushed with copious amounts of bacitracin and saline wash and inspected for hemostasis. The pulse generator was then attached to the pins making sure the pins were in appropriate position, passed, set screws and set screws were all tightened. The pulse generator was then placed in the pocket, making sure that the leads were lying flat beneath the device. A stay stitch using 0 silk suture was used to sew this pectoralis muscle. The incision was then closed in 3-layer fashion with 2-0 Vicryl interrupted suture, followed by 3-0 Vicryl suture, followed by 4-0 Monocryl running stitch and Dermabond was applied. EQUIPMENT: 1. Pulse generator is a [facility] XT DR ADELAIDA SantacruzEzekiel [id number], serial #[id number]. 2. Right atrial lead Medtronic 5076-52 cm, serial #[id number]. The ventricular lead, Medtronic 5076-58 cm, serial #[id number]. INTRAOPERATIVE TESTIN. Right atrial lead: P-wave 2 millivolts, impedance 559 ohms, threshold 1.6 volts at 3.4 milliamps. 2. Right ventricular lead: R-wave 7.3 millivolts, impedance 1044 ohms, threshold 0.5 volts at 0.4 milliamps. FINAL MEASUREMENTS THROUGH THE DEVICE: 1. Right atrial lead: P-wave 1.3 millivolts, impedance 475 ohms, threshold 1 volt at 0.4 milliseconds. 2. Right ventricular lead: R-wave 10.6 millivolts, impedance 836 ohms, threshold 0.5 volts at 0.4 milliseconds. FINAL PARAMETERS: MVP-R 60/130, Right atrial amplitude 3.5 volts, pulse width 0.4 milliseconds, sensitivity 0.3 millivolts. Right ventricular amplitude 3.5 volts, pulse width 0.4 milliseconds, sensitivity 1.2 millivolts. IMPRESSION: Successful implantation of dual chamber rate responsive permanent pacemaker under fluoroscopic guidance secondary to tachybrady syndrome. PLAN: Monitor patient overnight with a 12-lead ECG, chest x-ray. She is not allowed to lift left elbow or left shoulder for 1 month. She cannot lift more than 10 pounds with the left arm for 2 weeks. She can shower in 2 days, let water rune over the incision, do not scrub it. She can continue her home medications including her Eliquis. She should follow up in our [facility] office for device and wound check on 11/25/2018, Wednesday morning. I attest to the content of the Intraoperative Record and any orders documented therein. Any exception s are noted below.
[2018-11-17 06:33] LABS: Estimated Average Glucose 166 mg/dl; Hemoglobin A1C 7.4 % (4.5-5.6)
--- NOTE | 2018-11-17 07:54 | XRay Report ---
TWO VIEW CHEST CLINICAL HISTORY: Status post pacemaker implantation.. FINDINGS: PA and lateral chest radiographs are compared to study dated 08/25/2018. Correlation is made with left shoulder radiographs dated 08/25/2018. A 2-lead cardiac pacemaker has been placed. This par tially secures the left lower chest. Leads project over the right atrial appendage and right ventricl e. The heart is mildly enlarged and there is atherosclerotic calcification of the thoracic aorta. The pulmonary vasculature is noncongested. There is chronic elevation of right hemidiaphragm with bibasi lar atelectasis. Chronic interstitial thickening is similar to previous. No airspace consolidation is identified. Trace pleural effusions are suggested in the lateral view. There is no pneumothorax. The skeletal structures are osteopenic. Advanced degenerative change and kyphoscoliosis are noted in the thoracic spine. There is chronic subluxation of the left shoulder joint. Surgical anchors are noted in the right humeral head. Surgical clips are noted in the right upper quadrant. IMPRESSION: 1. A 2-lead cardiac pacemaker has been placed as above. 2. No pneumothorax is seen post procedure. 3. Cardiomegaly without radiographic evidence of congestive failure. 4. Suspect trace pleural effusions. Electronically signed by: Kofi Lopez M.D. 11/17/2018 7:53 AM
[2018-11-17] MEDS: TORSEMIDE 20 MG TAB PO SCH (08:06)
[2018-11-17] MEDS: APIXABAN 5 MG TABLET PO SCH (08:06)
[2018-11-17] MEDS: OXYBUTYNIN CHLORIDE 5 MG TAB PO SCH (08:06)
[2018-11-17] MEDS: SACUBITRIL-VALSARTAN 24-26 MG TAB PO SCH (08:06)
[2018-11-17] MEDS: MAGNESIUM OXIDE 400 MG TAB PO SCH (08:06)
[2018-11-17] MEDS: INSULIN GLARGINE SOLOSTAR 100 UNITS/ML 3 ML PEN SQ SCH (08:07)
[2018-11-17] MEDS: INSULIN ASPART 100 UNITS/ML 3 ML PEN SC SCH (08:07)
[2018-11-17] MEDS ORDERED: ATORVASTATIN 40 MG TAB PO SCH (09:00)
[2018-11-17] MEDS ORDERED: METOPROLOL SUCC 50MG EXT REL TAB PO SCH (09:00)
[2018-11-17] MEDS ORDERED: CLOPIDOGREL BISULFATE 75 MG TAB PO SCH (09:00)
== END 2018-11-17 10:25 | disposition home or self-care (01) ==
LOC: 2S 11:44 → ASU 11:44

== ENCOUNTER 2018-12-19 01:02 | Inpatient (IN) ==
--- OUTSIDE RECORDS SUMMARY | 2018-12-19 01:05 | External Medical Summary | Continuity of Care Document ---
:1945 Author Name Gabriella George, Provider Address Unavailable Unavailable , Care Team Providers Name Role Phone Unavailable Unavailable Unavailable PCP, UNKNOWN Unavailable Unavailable Problems Active medical history not documented Allergies and Adverse Reactions Allergy history not documented Medications Medications not documented Procedures Procedures not documented Immunizations Immunizations not documented Plan of Treatment Planned Observations Planned Goals not documented Results No Known Results Results not documented
[2018-12-19] MEDS ORDERED: GI COCKTAIL ED USE PO ONE (01:21)
[2018-12-19] MEDS ORDERED: LORazepam 0.5 MG/1 ML VIAL IV STA (01:21)
[2018-12-19 01:32] LABS: Basophils # (auto) 0.02 K/uL (0-0.2); Basophils % (auto) 0.2 %; Eosinophils # (auto) 0.16 K/uL (0-0.5); Eosinophils % (auto) 1.9 %; Hematocrit (blood only) 33.3 % (37-47); Hemoglobin 10.6 g/dL (12.0-16.0); Immature Granulocytes # (auto) 0.01 K/uL (0.00-0.02); Immature Granulocytes % (auto) 0.1 %; Lymphocytes # (auto) 3.91 K/uL (1.2-3.4); Lymphocytes % (auto) 46.6 %; Mean Corpuscular Hgb Conc 31.8 g/dL (32-36); Mean Corpuscular Volume 86.5 fL (80-100); Mean Platelet Volume 9.7 fL (7.4-10.4); Monocytes # (auto) 0.71 K/uL (0.11-0.59); Monocytes % (auto) 8.5 %; Neutrophils # (auto) 3.58 K/uL (1.4-6.5); Neutrophils % (auto) 42.7 %; Platelet Count 214 K/uL (130-400); RDW Coefficient of Variation 14.6 % (11.5-14.5); RDW Standard Deviation 45.7 fL (36.4-46.3); Red Blood Count 3.85 M/uL (4.2-5.4); White Blood Count 8.39 K/uL (4.8-10.8)
[2018-12-19 01:39] LABS: Alanine Aminotransferase 21 U/L (12-78); Albumin Level 3.2 gm/dl (3.4-5.0); Aspartate Aminotransferase 17 U/L (15-37); BUN Creatinine Ratio 26.2 (10-20); Blood Urea Nitrogen 30 mg/dl (7-18); Carbon Dioxide 32 mmol/L (21-32); Chloride 104 mmol/L (98-107); Creatinine Clr Calc Pharmacy 57.2 ml/min; Est GFR (African American) 55.4; Est GFR (Non-African American) 47.8; Glucose 84 mg/dl (70-99); Potassium 3.7 mmol/L (3.5-5.1); Sodium 140 mmol/L (136-145)
[2018-12-19 01:42] LABS: INR 1.2 (0.9-1.1); Partial Thromboplastin Time 27.1 Seconds (21.0-31.0); Prothrombin Time 11.9 Seconds (9.0-12.0)
[2018-12-19 01:50] LABS: Albumin Globulin Ratio 0.8 (0.9-2); Alkaline Phosphatase 70 U/L (45-117); Bilirubin,Total 0.3 mg/dl (0.2-1); D Dimer 570 ug/L FEU (0-500); Globulin 3.9 gm/dl (2.5-4.0); NT Pro B Type Natriuretic Pept 401 pg/ml (0-900); Total Protein 7.1 gm/dl (6.4-8.2); Troponin I < 0.015 ng/ml (0-0.045)
--- NOTE | 2018-12-19 02:24 | Emergency Department Note ---
ED Visit Note I saw this patient in conjunction with Tristian Moralez PA-C. I agree with his decision making and treatment plan. .
[2018-12-19] MEDS ORDERED: IOVERSOL 100ml IV PRN (02:26)
[2018-12-19 02:47] LABS: Base Excess VBG 2.6 mEq/L; HCO3 VBG 29 mmol/L; Oxygen Saturation VBG 92.3 %; PCO2 VBG 51 mmHg (38-50); PO2 VBG 66 mmHg; pH VBG 7.37 (7.36-7.41)
--- NOTE | 2018-12-19 02:51 | Emergency Department Note ---
History of Present Illness General Chief complaint: Shortness of Breath/Dyspnea Stated complaint: SHAKEY/SHORT OF BREATH Time Seen by Provider: 12/19/18 01:10 History of Present Illness Maximum Pain Intensity: 5 This is a 73-year-old female presenting to the emergency department for evalu ation of shortness of breath by ambulance that began approximately 8 hours prior to arrival at 6 PM. The patient states that she was at home when she began her symptoms. She states over the next 2 or 3 hours she did develop some epigastric and substernal chest burning. She did take nitroglycerin without any improvement of her symptoms. The patient does have an extensive cardiac history including stenting, atrial fibrillation, and pacemaker placement last month. The patient has not had lightheadedness or dizziness. No recent travel history or medication changes. Her symptoms do seem to worsen with movement. She rates her current discomfort a 5/10. Home Medications Home Medications Medication Instructions Recorded Confirmed Type Eliquis 5 mg PO BID 06/18/18 08/25/18 History Entresto 1 tab PO BID 06/18/18 08/25/18 History Lantus Solostar U-100 Insulin 20 unit SUBCUT BIDM 06/18/18 08/25/18 History atorvastatin 40 mg PO QAM 06/18/18 08/25/18 History calcium carbonate [Calcium 600] 600 mg PO BIDM 06/18/18 08/25/18 History cinnamon bark [Cinnamon] 500 mg PO QAM 06/18/18 08/25/18 History clopidogrel [Plavix] 75 mg PO QAM 06/18/18 08/25/18 History coenzyme Q10 [CoQ-10] 100 mg PO QDL 06/18/18 08/25/18 History magnesium oxide 400 mg PO BID 06/18/18 08/25/18 History metoprolol succinate 100 mg PO QAM 06/18/18 08/25/18 History multivitamin 1 tab PO PM 06/18/18 08/25/18 History nitroglycerin [Nitrostat] 0.4 mg SUBLINGUAL DIRECTED PRN 06/18/18 08/25/18 History oxybutynin chloride 5 mg PO BID 06/18/18 08/25/18 History torsemide 20 mg PO BID 06/18/18 08/25/18 History Allergies Allergy/AdvReac Type Severity Reaction Status Date / Time cetirizine Allergy Intermediate Hallucinati Verified 12/19/18 01:51 ng hydroxyzine AdvReac Intermediate Hallucinati Verified 12/19/18 01:51 ng Past Med/Surg History Medical History Chronic diastolic HF (heart failure) (Chronic) Paroxysmal A-fib (Chronic) on Eliquis Osteoarthritis (Chronic) DM type 2 (diabetes mellitus, type 2) (Chronic) Dyslipidemia (Chronic) Hypertension (Chronic) Coronary artery disease (Chronic) "anterior [place] 11/10/17, LVEF 20-25%, PCI LAD with ISABEL" Hx of supraventricular tachycardia (Chronic) Surgical History H/O ovarian cystectomy (Chronic) History of appendectomy (Chronic) History of right knee joint replacement (Chronic) History of tonsillectomy (Chronic) History of cholecystectomy (Chronic) Status post coronary artery stent placement (Chronic) "PCI LAD with ISABEL 11/10/17" Social History Preferred Language: Albanian Communication Ability: Effective Visual Impairment: No Limitations Beliefs That Will Affect Care: None Current Living Situation: Alone Current Living Situation Comment: States she will be looking to move to assist ed living Feels Safe at Home: Yes Smoking Status: Former smoker Tobacco Type: cigarettes Second Hand Exposure: No Hx Alcohol Use: No Hx Substance Use: No Review of Systems A total of 10 systems reviewed and were otherwise negative Physical Exam Vital Signs Vital Signs - 24 hr 12/19/18 01:02 12/19/18 01:25 12/19/18 01:30 Temperature 36.7 C Temperature Source Oral Sepsis Recent Fever Within 48 Hours No Sepsis New/Unexplained Change in Mental Status No Sepsis Action Taken by Nursing No Action Required Pulse Rate 70 Pulse Rate [Left Finger] Respiratory Rate 18 Blood Pressure 120/45 L Blood Pressure [Left Arm] Blood Pressure Mean 70 Blood Pressure Mean [Left Arm] Blood Pressure Position [Left Arm] Pulse Oximetry 98 82 L 98 Oxygen Delivery Method Room Air Nasal Cannula Oxygen Flow Rate 3 12/19/18 02:28 12/19/18 03:00 12/19/18 03:51 Temperature Temperature Source Sepsis Recent Fever Within 48 Hours Sepsis New/Unexplained Change in Mental Status Sepsis Action Taken by Nursing Pulse Rate Pulse Rate [Left Finger] 63 60 65 Respiratory Rate 16 17 20 Blood Pressure Blood Pressure [Left Arm] 124/60 108/62 124/61 Blood Pressure Mean Blood Pressure Mean [Left Arm] 81 77 82 Blood Pressure Position [Left Arm] Lying Pulse Oximetry 99 100 100 Oxygen Delivery Method Nasal Cannula Nasal Cannula Nasal Cannula Oxygen Flow Rate 3 3 3 12/19/18 03:52 Temperature Temperature Source Sepsis Recent Fever Within 48 Hours Sepsis New/Unexplained Change in Mental Status Sepsis Action Taken by Nursing Pulse Rate Pulse Rate [Left Finger] Respiratory Rate Blood Pressure Blood Pressure [Left Arm] Blood Pressure Mean Blood Pressure Mean [Left Arm] Blood Pressure Position [Left Arm] Pulse Oximetry 100 Oxygen Delivery Method Nasal Cannula Oxygen Flow Rate 3 VITALS: Vitals are noted on the nurse's note and reviewed by myself. Vital signs with low pulse ox GENERAL: Mildly ill-appearing female who is comfortable and cooperative with examination. HEAD: Normocephalic atraumatic. EYES: Pupils equal round and reactive to light and accommodation. Conjunctivae without injection, sclerae without icterus. Extraocular movements intact. MOUTH: Mucous membranes moist. Tonsils are not enlarged. Pharynx without erythema, blood, or exudate. Uvula midline. Airway patent. NECK: Supple without nuchal rigidity. No lymphadenopathy. No thyromegaly. Cervical spine is nontender. HEART: Regular rate and rhythm with mild murmur noted. Pacemaker noted in left upper chest wall. Area is nontender and without significant edema. LUNGS: Clear to auscultation bilaterally without wheezes, rales or rhonchi. No retractions or accessory muscle use. ABDOMEN: Positive normal bowel sounds x 4. Soft, nontender, without masses or organomegaly. MUSCULOSKELETAL: Full range of motion in all extremities. No calf tenderness. Bilateral lower lymphedema noted NEURO: Patient was alert and oriented to person place and time. CN II through XII grossly intact Course Administered Medications Ioversol (Optiray 320 100ml) 100 ml IV ONCE PRN PRN Reason: Interaction Checking Stop: 12/23/18 02:25 Last Admin: 12/19/18 02:27 Dose: 98 ml Documented by: [id number] Discontinued Medications Al Hydrox/Mg Hydrox/Simethicone () 1 dose PO ONE ONE Stop: 12/19/18 01:22 Last Admin: 12/19/18 01:47 Dose: 1 dose Documented by: [id number] Lorazepam (Ativan) 0.5 mg in 1 mls @ 1 mls/min IV NOW STA Stop: 12/19/18 01:22 Last Admin: 12/19/18 01:47 Dose: 1 mls/min Documented by: [id number] Medical Decision Making Differential Diagnosis Differential diagnosis includes, but is not limited to: Myocardial infarction, dysrhythmia, pericarditis, pneumothorax, aortic aneurysm/dissection, DVT/PE, anxiety, GERD, PUD, electrolyte imbalance, thyroid disorder, pneumonia, bronchitis, pancreatitis, and others Laboratory Data Result diagrams: 12/19/18 Unknown 12/19/18 Unknown Lab Results 12/19/18 12/19/18 12/19/18 Range/Units 02:36 Unknown Unknown WBC 8.39 (4.8-10.8) K/uL RBC 3.85 L (4.2-5.4) M/uL Hgb 10.6 L (12.0-16.0) g/dL Hct 33.3 L (37-47) % MCV 86.5 (80-100) fL MCH 27.5 (25-34) pg MCHC 31.8 L (32-36) g/dL RDW Std Deviation 45.7 (36.4-46.3) fL RDW Coeff of [place] 14.6 H (11.5-14.5) % Plt Count 214 (130-400) K/uL MPV 9.7 (7.4-10.4) fL Immature Gran % (Auto) 0.1 % Neut % (Auto) 42.7 % Lymph % (Auto) 46.6 % Coal % (Auto) 8.5 % Eos % (Auto) 1.9 % Baso % (Auto) 0.2 % Immature Gran # (Auto) 0.01 (0.00-0.02) K/uL Neut # (Auto) 3.58 (1.4-6.5) K/uL Lymph # (Auto) 3.91 H (1.2-3.4) K/uL Coal # (Auto) 0.71 H (0.11-0.59) K/uL Eos # (Auto) 0.16 (0-0.5) K/uL Baso # (Auto) 0.02 (0-0.2) K/uL PT 11.9 (9.0-12.0) Seconds INR 1.2 H (0.9-1.1) APTT 27.1 (21.0-31.0) Seconds PTT Ratio 1.0 D-Dimer 570 H* (0-500) ug/L FEU VBG pH 7.37 (7.36-7.41) VBG pCO2 51 H (38-50) mmHg VBG pO2 66 mmHg VBG HCO3 29 mmol/L VBG O2 Saturation 92.3 % VBG Base Excess 2.6 mEq/L Sodium (136-145) mmol/L Potassium (3.5-5.1) mmol/L Chloride (98-107) mmol/L Carbon Dioxide (21-32) mmol/L Anion Gap (3-11) BUN (7-18) mg/dl Creatinine (0.6-1.2) mg/dl Est Cr Clr Drug Dosing ml/min Est GFR ( Amer) Est GFR (Non-Af Amer) BUN/Creatinine Ratio (10-20) Glucose (70-99) mg/dl Calcium (8.5-10.1) mg/dl Magnesium (1.8-2.4) mg/dl Total Bilirubin (0.2-1) mg/dl AST (15-37) U/L ALT (12-78) U/L Alkaline Phosphatase (45-117) U/L Troponin I (0-0.045) ng/ml NT-Pro-B Natriuret Pep (0-900) pg/ml Total Protein (6.4-8.2) gm/dl Albumin (3.4-5.0) gm/dl Globulin (2.5-4.0) gm/dl Albumin/Globulin Ratio (0.9-2) TSH (0.300-4.500) uIu/ml 12/19/18 Range/Units Unknown WBC (4.8-10.8) K/uL RBC (4.2-5.4) M/uL Hgb (12.0-16.0) g/dL Hct (37-47) % MCV (80-100) fL MCH (25-34) pg MCHC (32-36) g/dL RDW Std Deviation (36.4-46.3) fL RDW Coeff of [place] (11.5-14.5) % Plt Count (130-400) K/uL MPV (7.4-10.4) fL Immature Gran % (Auto) % Neut % (Auto) % Lymph % (Auto) % Coal % (Auto) % Eos % (Auto) % Baso % (Auto) % Immature Gran # (Auto) (0.00-0.02) K/uL Neut # (Auto) (1.4-6.5) K/uL Lymph # (Auto) (1.2-3.4) K/uL Coal # (Auto) (0.11-0.59) K/uL Eos # (Auto) (0-0.5) K/uL Baso # (Auto) (0-0.2) K/uL PT (9.0-12.0) Seconds INR (0.9-1.1) APTT (21.0-31.0) Seconds PTT Ratio D-Dimer (0-500) ug/L FEU VBG pH (7.36-7.41) VBG pCO2 (38-50) mmHg VBG pO2 mmHg VBG HCO3 mmol/L VBG O2 Saturation % VBG Base Excess mEq/L Sodium 140 (136-145) mmol/L Potassium 3.7 (3.5-5.1) mmol/L Chloride 104 (98-107) mmol/L Carbon Dioxide 32 (21-32) mmol/L Anion Gap 4.0 (3-11) BUN 30 H (7-18) mg/dl Creatinine 1.13 (0.6-1.2) mg/dl Est Cr Clr Drug Dosing 57.2 ml/min Est GFR ( Amer) 55.4 Est GFR (Non-Af Amer) 47.8 BUN/Creatinine Ratio 26.2 H (10-20) Glucose 84 (70-99) mg/dl Calcium 9.0 (8.5-10.1) mg/dl Magnesium 2.0 (1.8-2.4) mg/dl Total Bilirubin 0.3 (0.2-1) mg/dl AST 17 (15-37) U/L ALT 21 (12-78) U/L Alkaline Phosphatase 70 (45-117) U/L Troponin I < 0.015 (0-0.045) ng/ml NT-Pro-B Natriuret Pep 401 (0-900) pg/ml Total Protein 7.1 (6.4-8.2) gm/dl Albumin 3.2 L (3.4-5.0) gm/dl Globulin 3.9 (2.5-4.0) gm/dl Albumin/Globulin Ratio 0.8 L (0.9-2) TSH 2.240 (0.300-4.500) uIu/ml Imaging Data Radiologist's Impression: Preliminary Findings Only � See Final Report For Complete Findings CTA CHEST: No pulmonary embolus. Cardiomegaly and pacemaker. No effusion or consolidation. Reduced lung volumes and elevation of the right diaphragm. Cholecystectomy. Surgical changes related to the right shoulder MDM Narrative Physical exam and history were performed. Nursing notes, EMR, and Medication List were personally reviewed. Patient appears to have shortness of breath symptoms bringing her to the emergency department this evening. The patient arrives via ambulance and is hypoxic on arrival with room air. She was placed on 3 L nasal cannula which did immediately improve this. EKG was performed and was normal sinus rhythm without acute ST elevation. IV access was established and labs were obtained. The patient's blood work is as above and was reviewed. She does not have a significantly elevated white blood cell count. She is mildly anemic at 10.6 INR is 1.2. Troponin x1 is negative. VBG is unremarkable. D-dimer is elevated at [address] angiogram for PE was performed. CT scan was reviewed by myself and radiology as showing no acute process. The case was discussed with my attending, Dr Coker, who also intermittently evaluated the patient. Overall we do not feel the patient is well for discharge home. She has had shortness of breath with hypoxia. The case was discussed with the on-call [facility] hospitalist. Please see the hospitalist dictation for further patient course, plan, and disposition. The chart was completed utilizing [employer] Speech Voice Recognition Software. Grammatical errors, random word insertions, pronoun errors, and incomplete sentences are an occasional consequence of this system due to software limitations, ambient noise, and hardware issues. Any formal questions or concerns about the content, text, or information contained within the body of this dictation should be directly addressed to the provider for clarification. . Impression & Plan SOB (shortness of breath), Hypoxia Discharge Plan Visit Data Chief Complaint: Shortness of Breath/Dyspnea Stated Complaint: SHAKEY/SHORT OF BREATH ED Provider: Soni Coker ED Midlevel Provider: Tristian Moralez Discharge Problem: SOB (shortness of breath), Hypoxia Patient Disposition: Being Evaluated by Hospitalist Forms Stand Alone Forms: [facility] Prescriptions Prescriptions: No Action multivitamin Tablet 1 tab PO PM RF: 0 atorvastatin 40 mg Tablet 40 mg PO QAM RF: 0 torsemide 20 mg tablet 20 mg PO BID RF: 0 metoprolol succinate 100 mg Tablet Extended Release 24 Hr 100 mg PO QAM RF: 0 clopidogrel [Plavix] 75 mg Tablet 75 mg PO QAM RF: 0 nitroglycerin [Nitrostat] 0.4 mg Tablet, Sublingual 0.4 mg Sublingual DIRECTED PRN (Reason: Chest Pain) RF: 0 oxybutynin chloride 5 mg Tablet 5 mg PO BID RF: 0 coenzyme Q10 [CoQ-10] 100 mg Capsule 100 mg PO QDL RF: 0 cinnamon bark [Cinnamon] 500 mg Capsule 500 mg PO QAM RF: 0 Lantus Solostar U-100 Insulin 100 unit/mL (3 mL) Insulin Pen 20 unit SUBCUT BIDM RF: 0 Eliquis 5 mg Tablet 5 mg PO BID RF: 0 Entresto 24-26 mg Tablet 1 tab PO BID RF: 0 magnesium oxide 400 mg magnesium Tablet 400 mg PO BID RF: 0 calcium carbonate [Calcium 600] 600 mg calcium (1,500 mg) Tablet 600 mg PO BIDM RF: 0 Referrals Referrals: Jason West MD [Primary Care Provider] -
[2018-12-19] MEDS ORDERED: ONDANSETRON INJ 2 MG/ML 2 ML VIAL IV PRN (05:52)
[2018-12-19] MEDS ORDERED: ACETAMINOPHEN 325 MG TAB PO PRN (05:52)
[2018-12-19] MEDS ORDERED: NITROGLYCERIN SL 0.4 MG/TAB TAB SL PRN ×2 (05:52)
[2018-12-19] MEDS ORDERED: ALUMINUM/MAGNESIUM SUSP 30 ML UDC PO PRN (05:52)
[2018-12-19] MEDS ORDERED: FUROSEMIDE 20 MG in SYRINGE 0 ML IV ONE (06:00)
--- NOTE | 2018-12-19 06:18 | XRay Report ---
XR chest 2V routine CLINICAL HISTORY: Cough, sob dyspnea COMPARISON STUDY: 11/17/2018 FINDINGS: Bipolar cardiac pacemaker in good position. Lungs are considered clear. Chronic elevation r ight hemidiaphragm. IMPRESSION: No acute process. The above report was generated using voice recognition software. It may contain grammatical, syntax or spelling errors. Electronically signed by: Aurelio Bee M.D. 12/19/2018 6:17 AM
--- NOTE | 2018-12-19 06:26 | CT Scan Report ---
CT angio chest PE protocol CT DOSE: 709.85 mGy.cm HISTORY: Dyspnea SOB, Elevated dimer TECHNIQUE: Multiaxial CT images of the chest were performed following the intravenous administration of contrast to evaluate the pulmonary arteries. Maximal intensity projection images were also obtaine d. A dose lowering technique was utilized adhering to the principles of ALARA. COMPARISON STUDY: None. FINDINGS: Lungs are considered clear. Pulmonary arterial structures enhance appropriately. Considerab le degenerative changes thoracic spine. No evidence for compression deformity. IMPRESSION: 1. No evidence for pulmonary embolus. 2. Lungs are considered clear. 3. Degenerative changes thoracic spine. The above report was generated using voice recognition software. It may contain grammatical, syntax or spelling errors. Electronically signed by: Aurelio Bee M.D. 12/19/2018 6:24 AM
[2018-12-19] MEDS ORDERED: PERFLUTREN LIPID MICROSPHERE (DEFINITY) IV ONE (07:35)
--- NOTE | 2018-12-19 08:13 | History and Physical Report ---
DATE OF ADMISSION: 12/19/2018 CHIEF COMPLAINT: Shortness of breath and chest discomfort. 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 The patient lives alone. Yesterday evening at 6:00 p.m., she started to notice some shortness of breath and some burning sensation in the chest. She took nitro that did not help her and shortness of breath got worse and she called the EMS and was brought into the hospital. The pain was in the left side of chest, moderate in severity, no radiation. In the ER when she arrived, she was hypoxic 82% room air, and with 3 liters oxygen, saturation improved. With Ativan and GI cocktail, her chest discomfort almost resolved. Currently, resting comfortable and hemodynamically stable. She has chronic lower extremity lymphedema, she says its the same, there is no increase in the edema of the lower extremity. Denies any headache, no blurred vision, no runny nose, no sore throat, no difficulty swallowing. Appetite is okay. The patient is compliant with the salt intake. No nausea, no abdominal pain. Normal bowel and bladder movements. No hematuria, no black stools or hematochezia. Currently, resting comfortable and hemodynamically stable. ALLERGIES: ALTREX, CETIRIZINE. PAST MEDICAL HISTORY: As mentioned above. PAST SURGICAL HISTORY: Appendectomy, right total knee arthroplasty, left heart catheterization, tonsillectomy, adenoidectomy, cholecystectomy, dual chamber pacemaker placement. MEDICATIONS: The patient is on Eliquis 5 mg p.o. b.i.d., Entresto 24/26 mg 1 tablet b.i.d., torsemide 20 mg p.o. b.i.d., Lantus 20 units b.i.d., oxybutynin 5 mg p.o. b.i.d., Lipitor 40 mg p.o. daily, Plavix 75 mg p.o. daily, cinnamon 500 mg p.o. daily, magnesium 400 mg p.o. b.i.d., nitroglycerin 0.4 mg sublingual p.r.n., Toprol-XL 100 mg p.o. daily, calcium 2 tablets daily, Coenzyme Q one tablet daily, multivitamins 1 tablet daily. FAMILY HISTORY: Significant for: Father had cancer. Mother had diabetes, CABG and hypertension. SOCIAL HISTORY: Former smoker, quit in 1999. Prior to that, smoked 1.5 packs a day for 35 years. Alcohol rare. No drug use. REVIEW OF SYMPTOMS: As per HPI. Rest of review of systems is negative. PHYSICAL EXAMINATION: GENERAL: The patient is morbidly obese, not in acute distress. VITAL SIGNS: Temperature 36.7, pulse 64, respiratory rate 20, blood pressure 140/80, oxygen 82% room air, currently 95% on 3 liters. HEENT: No pallor, no icterus. Pupils equal, round, and reactive to light. NECK: No JVD, no neck masses, no carotid bruits. CARDIOVASCULAR: S1, S2 heard, regular rate and rhythm, no murmur, no gallop. RESPIRATORY SYSTEM: Clear to auscultation bilaterally. No wheezing. No crackles, no accessory muscle use. ABDOMEN: Soft, bowel sounds present. Nontender. No distention. CENTRAL NERVOUS SYSTEM: Cranial nerves II-XII grossly intact. Nonfocal. EXTREMITIES: Bilateral chronic lower extremity edema seen. No erythema seen. LABORATORIES: WBC 8.3, hemoglobin 10.6, hematocrit 33.3, platelets 214. PT 11.9, INR 1.2. APTT 27.1. D-dimer 570. Venous blood gases, venous pH of 7.3, venous pCO2 of 51, venous pO2 66, venous bicarbonate 29. Sodium 140, potassium 3.9, chloride 104, bicarbonate 32, BUN 30, creatinine 1.1, serum glucose 84, calcium 9, magnesium 2, total bilirubin 0.3, AST 17, ALT 21, alkaline phosphatase 70. Troponin I less than 0.015. BNP 401. TSH 2.2. Chest x-ray, possible mild congestion. CT of the chest, unofficial report unremarkable. EKG: Atrial paced rhythm with prolonged AV conduction, rate of 67. ASSESSMENT AND PLAN: This is a 73-year-old female who presents with shortness of breath and chest pain and hypoxia. 1. Shortness of breath, hypoxia, 82% room air and saturation improved with 3 liters of oxygen. Possible Acute on chronic diastolic CHF? On exam, she has chronic lower extremity edema and no change in edema, and no wheezing or crackles on exam and chest x-ray, possible mild congestion. , D-dimer is elevated, but CTA of the chest shows no PE. We will wait for the official report. She is on torsemide 20 mg p.o. b.i.d. at home which we will continue and we will give small dose of Lasix iv 20 mg and monitor in tele floor. Consult cardiology and follow echocardiogram.Will follow daily weight's and i/o's. 2. Chest discomfort, mostly a burning sensation which improved with GI cocktail. We will follow serial cardiac enzymes, echocardiogram. Monitor in the tele floor because of the cardiac history. 3. Coronary artery disease, status post stent. Continue her home medications of statin, beta iman, Plavix. 4.History of paroxysmal atrial fibrillation. The patient is on Eliquis, Toprol- XL. Currently stable. 5. Tachybrady syndrome, status post dual chamber pacemaker, pacemaker interrogation, as per cardiology. 6. History of paroxysmal supraventricular tachycardia, on Toprol-XL, currently stable. 7. History of diabetes. We will keep the patient currently n.p.o. until seen by cardiology. We will cut back the Lantus from 20 units b.i.d. to [address] on insulin sliding scale. Follow HbA1c levels. 8. History of hyperlipidemia. Continue statin. 9. Chronic lower extremity lymphedema, seems stable. 10. Morbid obesity, needs counseling. 11. Deep venous thrombosis prophylaxis, on Eliquis. 12. Disposition: Monitor in tele floor. Level 1 full code. MTDD
[2018-12-19] MEDS: INSULIN ASPART 100 UNITS/ML 3 ML PEN SC SCH ×4 (08:46→20:49)
[2018-12-19] MEDS: CALCIUM 600MG + VIT D 400 IU TAB PO SCH ×2 (08:47→17:26)
[2018-12-19] MEDS: APIXABAN 5 MG TABLET PO SCH ×2 (08:47→20:37)
[2018-12-19] MEDS: TORSEMIDE 10 MG TAB PO SCH ×2 (08:47→10:56)
[2018-12-19] MEDS: SACUBITRIL-VALSARTAN 24-26 MG TAB PO SCH ×2 (08:47→20:38)
[2018-12-19] MEDS: METOPROLOL SUCC 50MG EXT REL TAB PO SCH (08:47)
[2018-12-19] MEDS: INSULIN GLARGINE SOLOSTAR 100 UNITS/ML 3 ML PEN SC SCH ×2 (08:48→20:45)
[2018-12-19] MEDS: ATORVASTATIN 40 MG TAB PO SCH (08:48)
[2018-12-19] MEDS: MAGNESIUM OXIDE 400 MG TAB PO SCH ×2 (08:48→20:38)
[2018-12-19] MEDS: CLOPIDOGREL BISULFATE 75 MG TAB PO SCH (08:48)
[2018-12-19] MEDS ORDERED: NON-FORMULARY MEDICATION (Cinnamon Bark [Cinnamon] 500 MG) PO SCH (09:00)
--- NOTE | 2018-12-19 10:46 | Consultation Report ---
DATE OF CONSULTATION: 12/19/2018 INPATIENT CARDIOLOGY CONSULTATION CONSULTATION REQUESTED BY: Dr. Waite. REASON FOR CONSULTATION: Shortness of breath and chest discomfort. HISTORY OF PRESENT ILLNESS: Ms. Baig is a very pleasant 73-year-old woman who normally follows with Aurelio Viera and Dr. Vaca of our cardiology practice. She presented to [facility] via EMS early in the a.m. of 12/19/2018 with complaints of shortness of breath. The patient states that she notes that she is still in short of breath all day, and then in the morning, she developed some chest discomfort. At first, she described it as a burning sensation that seemed to radiate up through her chest, and as the day progressed, it did not resolve. Finally in the evening, she became concerned and EMS was called. She took nitroglycerin without any benefits. Upon arrival to the Emergency Department, her discomfort was improved with a GI cocktail and Ativan. She states that this pain is different than the discomfort she had prior to her last catheterization. She also notes that she has been having multiple stomach issues lately for which she has been following closely with her primary care physician and has opted out of further testing and elected to monitor the situation. She has not taken any medications for her stomach at home, specifically ever trying acids, pressors. Currently, she states that she still feels a little bit of tightness in her chest, but the burning sensation has resolved and she has not received any further treatment for her possible GERD at this time. PAST SURGICAL HISTORY: 1. Tachybrady syndrome, status post dual chamber permanent pacemaker placement October 2018 with a [employer] device. 2. PCI to the LAD October 2017 with repeat catheterization on the showing a patent stent. 3. Total knee replacement. 4. Appendectomy. 5. Cholecystectomy. 6. Tonsillectomy. MEDICAL ILLNESSES: 1. Paroxysmal supraventricular tachycardia. 2. Paroxysmal atrial fibrillation. 3. Tachybrady syndrome, status post dual chamber permanent pacemaker placement. 4. Coronary artery disease, status post successful PCI to the LAD. 5. Dyslipidemia. 6. Diastolic dysfunction. 7. Morbid obesity. 8. Type 2 diabetes. 9. GERD. 10. Lymphedema. 11. Transient ischemic cardiomyopathy, EF 20%, now normalized. FAMILY HISTORY: Noncontributory. SOCIAL HISTORY: The patient is a former smoker, quit in year 1999. Drinks occasional alcohol. Denies any recreational drug use. She lives at home by herself. REVIEW OF SYSTEMS: As per HPI, all other review of systems reviewed and negative at this time. ALLERGIES: 1. ATARAX. 2. CETIRIZINE. MEDICATIONS AN OUTPATIENT: 1. Eliquis 5 mg b.i.d. 2. Entresto of 24/26 mg daily. 3. Torsemide 20 mg b.i.d. 4. Atorvastatin 40 mg daily. 5. Plavix 75 mg daily. 6. Aspirin 81 mg daily. 7. Metoprolol succinate 100 mg daily. 8. Insulin as directed. PHYSICAL EXAMINATION: VITALS: Temperature 36.6, pulse 62, respiratory rate 12, blood pressure 127/56. GENERAL: Awake, alert, oriented x3 in no acute distress. HEENT: Normocephalic, atraumatic. Pupils equal, round, reactive to light and accommodation. Extraocular muscles intact. Anicteric sclerae. Moist mucous membranes. NECK: No JVD, no bruit. CARDIOVASCULAR: Regular. Positive S4. Normal S1 and S2. No S3. 3/6 mid to late systolic ejection murmur greatest at the right sternal border second intercostal space without radiation, no rubs. PULMONARY: Clear to auscultation bilaterally. No rales, rhonchi, or wheezing. ABDOMEN: Bowel sounds x4, soft. No rebound, guarding, tenderness. No organomegaly. EXTREMITIES: No clubbing, cyanosis or edema. +2 pedal pulses bilaterally. SKIN: Warm and dry. MUSCULOSKELETAL: Palpation of her anterior thorax is diffusely tender and able to reproduce her discomfort. TEST RESULTS: A 2D echocardiogram performed today, was read as normal LV chamber size with mild concentric LVH, normal LV systolic function, EF 60-65%, no segmental left ventricular wall motion abnormalities are noted, severe left atrial enlargement, moderate aortic valve sclerosis without stenosis. CTA of the chest was read as no evidence of pulmonary embolism. Lungs are considered clear. Degenerative changes of the thoracic spine. IMPRESSION: 1. Chest discomfort, likely secondary to gastroesophageal reflux disease and musculoskeletal. 2. Shortness of breath. 3. History of ischemic cardiomyopathy, resolved, EF now 60-65%. 4. Diastolic dysfunction. 5. Paroxysmal atrial fibrillation, on chronic Eliquis anticoagulation. 6. Coronary artery disease, status post PCI to the LAD. 7. Diabetes. 8. Morbid obesity. RECOMMENDATIONS: It was my pleasure to see Mrs. Baig in consultation today. From a cardiac standpoint, given the fact that her pain is reproducible along with the fact I believe there is a significant GI component to it. No further cardiac testing intervention is necessary at this time. I have started her on Protonix and recommend she likely be started on H2 iman as well and she can follow up with her family physician for further workup and treatment of her GERD. From a cardiac standpoint, given her history of coronary artery disease, we will perform an outpatient Lexiscan nuclear stress test prior to her next evaluation with Aurelio Viera in March; however, there are no signs of any active ischemia at this time, I do not believe an inpatient ischemic workup is necessary. It is okay to discharge the patient to home from a cardiac standpoint.
[2018-12-19] MEDS: PANTOprazole 40 MG TAB PO SCH (10:56)
[2018-12-19] MEDS: OXYBUTYNIN CHLORIDE 5 MG TAB PO SCH ×2 (10:56→20:37)
[2018-12-19] MEDS ORDERED: NON-FORMULARY MEDICATION (Coenzyme Q10 [Coq-10] 100 MG) PO SCH (11:30)
[2018-12-19 13:04] LABS: Appearance Urine Clear (Clear); Bilirubin Urine Negative (Negative); Blood Urine Negative (Negative); Color Urine Yellow; Glucose Urine UA Negative (Negative); Ketones Urine Negative (Negative); Leukocyte Esterase Urine Negative (Negative); Nitrite Urine Negative (Negative); Protein Urine Negative (Negative); Specific Gravity Urine 1.013 (1.000-1.030); Urobilinogen Urine Negative (Negative)
[2018-12-19] MEDS: SODIUM CHLORIDE 0.9% 1000ML 1,000 ML IV SCH (18:39)
[2018-12-19] MEDS ORDERED: MULTIVITAMIN TAB PO SCH (21:00)
--- NOTE | 2018-12-19 23:36 | Hospitalist Progress Note ---
Date of Service December 19, 2018 Assessment & Plan (1) Orthostatic hypotension: Cleared by cards to go home, and she started to feel some dysequilirium. Tried to perform vitals and she was unable to stand up without feeling as though she need to sit down. Hold diuretics, give IFBvV. (2) Chronic diastolic HF (heart failure): compensated to hypovolemic. (3) Paroxysmal A-fib: cont Eliquis, metoprolol (4) DVT prophylaxis: Eliquis Full COde Dispo-telemetry DO [facility] Subjective Cleared by Cardiology for discharge to home with LExiscan stress as outtpatient Review of Systems Review of Systems: All systems reviewed & are unremarkable except as noted in HPI & below Physical Exam Physical Exam: CONSTITUTIONAL: WNWD, vitals as above, generally well- appearing EYES: EOMI bilaterally, PERRL, normal conjuctivae, no scleral icterus ENT: MMM RESPIRATORY: clear to auscultation bilaterally, no crackles, rales or wheezes, normal respiratory effort CARDIOVASCULAR: regular rate and rhythm, S1 and 2 heard without murmurs, gallops or rubs, no JVD, no peripheral edema CHEST: inspection of chest was normal (+pacemaker, +port) GASTROINTESTINAL: normal bowel sounds, soft, nontender, no hepatomegaly, no guarding MUSCULOSKELETAL: strength 5/5 throughout, head is normocephalic and atraumatic SKIN: warm and dry, no rashes NEUROLOGIC: no gross focal deficits, sensation intact thorughout, strength 5/5 throughout. LYMPHATIC: no LAD Results & Data Vital Signs (Past 12 Hours) Vital Signs Temp Pulse Pulse Resp BP BP Pulse Ox 12/19/18 19:01 36.8 C 60 18 109/70 97 12/19/18 15:20 62 12/19/18 15:11 36.7 C 61 19 129/57 L 96 Laboratory Results Short CBC 12/19/18 Range/Units Unknown WBC 8.39 (4.8-10.8) K/uL Hgb 10.6 L (12.0-16.0) g/dL Hct 33.3 L (37-47) % Plt Count 214 (130-400) K/uL BMP 12/19/18 Unknown Sodium 140 Potassium 3.7 Chloride 104 Carbon Dioxide 32 BUN 30 H Creatinine 1.13 Glucose 84 Calcium 9.0 Cardiac Enzymes 12/19/18 12/19/18 12/19/18 Range/Units 08:03 14:05 20:24 Troponin I < 0.015 < 0.015 < 0.015 (0-0.045) ng/ml 12/19/18 Range/Units Unknown Troponin I < 0.015 (0-0.045) ng/ml Liver Function 12/19/18 Range/Units Unknown Total Bilirubin 0.3 (0.2-1) mg/dl AST 17 (15-37) U/L ALT 21 (12-78) U/L Alkaline Phosphatase 70 (45-117) U/L Albumin 3.2 L (3.4-5.0) gm/dl Urine 12/19/18 Range/Units 12:29 Urine Color Yellow Urine Appearance Clear (Clear) Urine pH 8.0 H (4.5-7.5) Ur Specific [place] 1.013 (1.000-1.030) Urine Protein Negative (Negative) Urine Glucose (UA) Negative (Negative) Medications Administered Current Inpatient Medications Acetaminophen (Tylenol) 650 mg PO Q4H PRN PRN Reason: Pain or Fever Stop: 01/18/19 05:51 Al Hydrox/Mg Hydrox/Simethicone (Maalox) 15 ml PO Q4H PRN PRN Reason: Dyspepsia Stop: 01/18/19 05:51 Apixaban (Eliquis) 5 mg PO BID [facility] Stop: 01/18/19 08:59 Last Admin: 12/19/18 20:37 Dose: 5 mg Documented by: Atorvastatin Calcium (Lipitor) 40 mg PO QAOK [facility] [place] Stop: 01/18/19 08:59 Last Admin: 12/19/18 08:48 Dose: 40 mg Documented by: Clopidogrel Bisulfate (Plavix) 75 mg PO QAOK [facility] [place] Stop: 01/18/19 08:59 Last Admin: 12/19/18 08:48 Dose: 75 mg Documented by: Sodium Chloride (Nss 1000ml) 1,000 mls @ 125 mls/hr IV .Q8H [facility] Stop: 12/20/18 10:14 Last Admin: 12/19/18 18:39 Dose: 125 mls/hr Documented by: Insulin Aspart (Novolog Flexpen) 0 units SC ACHS [facility] Stop: 01/18/19 07:29 Last Admin: 12/19/18 20:49 Dose: Not Given Documented by: Insulin Glargine (Lantus Solostar Pen) 10 units SC BID [facility] Stop: 01/18/19 08:59 Last Admin: 12/19/18 20:45 Dose: 10 units Documented by: Magnesium Oxide (Mag-Ox) 400 mg PO BID [facility] Stop: 01/18/19 08:59 Last Admin: 12/19/18 20:38 Dose: 400 mg Documented by: Metoprolol Succinate (Toprol Xl) 100 mg PO QAM [facility] Stop: 01/18/19 08:59 Last Admin: 12/19/18 08:47 Dose: 100 mg Documented by: Multivitamins (Multivitamin Tab) 1 tab PO PM [facility] Stop: 01/18/19 20:59 Last Admin: 12/19/18 20:39 Dose: 1 tab Documented by: Multivitamins/Minerals (Caltrate Plus) 1 tab PO BIDM [facility] Stop: 01/18/19 07:59 Last Admin: 12/19/18 17:26 Dose: 1 tab Documented by: Nitroglycerin (Nitrostat) 0.4 mg SL UD PRN PRN Reason: Chest Pain Stop: 01/18/19 05:51 Ondansetron HCl (Zofran) 4 mg IV Q6H PRN PRN Reason: Nausea Stop: 01/18/19 05:51 Oxybutynin Chloride (Ditropan) 5 mg PO BID@1130,2100 [facility] Stop: 01/18/19 11:29 Last Admin: 12/19/18 20:37 Dose: 5 mg Documented by: Pantoprazole Sodium (Protonix) 40 mg PO QAM [facility] Stop: 12/22/18 09:01 Last Admin: 12/19/18 10:56 Dose: 40 mg Documented by: Sacubitril/Valsartan (Entresto 24/26mg) 1 tab PO BID [facility] Stop: 01/18/19 08:59 Last Admin: 12/19/18 20:38 Dose: 1 tab Documented by: Torsemide (Demadex) 20 mg PO BID@0900,1130 [facility] Stop: 01/18/19 08:59 Last Admin: 12/19/18 10:56 Dose: 20 mg Documented by:
[2018-12-20] MEDS: SODIUM CHLORIDE 0.9% 1000ML 1,000 ML IV SCH (02:29)
[2018-12-20 05:04] LABS: Basophils # (auto) 0.03 K/uL (0-0.2); Basophils % (auto) 0.4 %; Eosinophils # (auto) 0.14 K/uL (0-0.5); Eosinophils % (auto) 1.9 %; Hematocrit (blood only) 34.2 % (37-47); Hemoglobin 10.9 g/dL (12.0-16.0); Immature Granulocytes # (auto) 0.02 K/uL (0.00-0.02); Immature Granulocytes % (auto) 0.3 %; Lymphocytes # (auto) 2.51 K/uL (1.2-3.4); Mean Corpuscular Hgb Conc 31.9 g/dL (32-36); Mean Platelet Volume 9.3 fL (7.4-10.4); Monocytes # (auto) 0.41 K/uL (0.11-0.59); Monocytes % (auto) 5.7 %; Neutrophils # (auto) 4.07 K/uL (1.4-6.5); Neutrophils % (auto) 56.7 %; Platelet Count 189 K/uL (130-400); RDW Coefficient of Variation 14.4 % (11.5-14.5); RDW Standard Deviation 46.5 fL (36.4-46.3); Red Blood Count 3.93 M/uL (4.2-5.4); White Blood Count 7.18 K/uL (4.8-10.8)
[2018-12-20 05:42] LABS: BUN Creatinine Ratio 22.8 (10-20); Calcium 8.7 mg/dl (8.5-10.1); Creatinine Clr Calc Pharmacy 60.5 ml/min; Est GFR (African American) 60.6; Est GFR (Non-African American) 52.3; Potassium 4.1 mmol/L (3.5-5.1)
[2018-12-20 06:35] LABS: Estimated Average Glucose 154 mg/dl
[2018-12-20] MEDS: INSULIN ASPART 100 UNITS/ML 3 ML PEN SC SCH ×2 (07:58→12:18)
[2018-12-20] MEDS: CLOPIDOGREL BISULFATE 75 MG TAB PO SCH (07:59)
[2018-12-20] MEDS: METOPROLOL SUCC 50MG EXT REL TAB PO SCH (07:59)
[2018-12-20] MEDS: APIXABAN 5 MG TABLET PO SCH (07:59)
[2018-12-20] MEDS: MAGNESIUM OXIDE 400 MG TAB PO SCH (08:00)
[2018-12-20] MEDS: SACUBITRIL-VALSARTAN 24-26 MG TAB PO SCH (08:00)
[2018-12-20] MEDS: CALCIUM 600MG + VIT D 400 IU TAB PO SCH (08:00)
[2018-12-20] MEDS: ATORVASTATIN 40 MG TAB PO SCH (08:00)
[2018-12-20] MEDS: INSULIN GLARGINE SOLOSTAR 100 UNITS/ML 3 ML PEN SC SCH (08:00)
[2018-12-20] MEDS: PANTOprazole 40 MG TAB PO SCH (08:00)
--- NOTE | 2018-12-20 09:25 | Cardiology Progress Note ---
Date of Service December 20, 2018 Assessment & Plan (1) Chest pain: only occurs while lyting down does not examine as volume overloaded no friction rub on exam or pericardial effusion on echo likely GERD I started protonix yesterday will add ranintidine now f/u with PCP or GI as outpatient no objective finding of ischemia for completeness sake, will arrange outpatient nuclear stress test ok to d/c to home from cardiac standpoint (2) Coronary artery disease: stable (3) Ischemic cardiomyopathy: resolved has been on optimal medical therapy will cont for now further management as outpatient Subjective Pt seen and examined, oob in chair, states that she's feeling well now. Had orthostatic event last PM, received IVF with resolution. States that she now bradley lizes that she only has chest pain while lying down. Again, denies associated symptoms. tele reviewed: sinus/atrial paced without arrhythmia Review of Systems Review of Systems: All systems reviewed & are unremarkable except as noted in HPI & below Physical Exam Physical Exam: General: Awake, alert and oriented x 3. No acute distress. HEENT: Normocephalic, atraumatic. Pupils equal, round and reactive to light and accommodation. Extraocular muscles are intact. Anicteric sclera. Moist mucous membranes. Neck: No JVD. No bruit. Cardiovascular: Regular. Positive S-4. Normal S-1 and S-2. No S-3. No murmurs or rubs. Pulmonary: Clear to auscultation B/L. No rales, rhonchi or wheezing Abdomen: Bowel sounds x 4, soft. No rebound, guarding or tenderness. No organomegaly. Extremities: No clubbing, cyanosis or edema. +2 pedal pulses bilaterally. Skin: Warm and dry. Results & Data Vital Signs (Past 12 Hours) Vital Signs Temp Pulse Resp BP BP Pulse Ox 12/20/18 07:46 36.8 C 66 132/76 96 12/20/18 04:22 36.5 C 64 18 137/76 96 12/20/18 00:00 36.5 C 61 20 108/69 97 (1) Coronary artery disease Coronary Disease-Associated Artery/Lesion type: mcgrath artery [place] vs. transplanted heart: mcgrath heart Associated angina: without angina Qualified Code(s): I25.10 - Atherosclerotic heart disease of mcgrath coronary artery without angina pectoris
[2018-12-20] MEDS: OXYBUTYNIN CHLORIDE 5 MG TAB PO SCH (12:17)
--- NOTE | 2018-12-20 13:39 | Discharge Summary ---
Date of Service December 20, 2018 Admission HPI Per Admitting Provider HISTORY OF PRESENT ILLNESS: This is a 73-year-old female with past medical history significant for paroxysmal supraventricular tachycardia, paroxysmal atrial fibrillation, tachybrady syndrome, status post dual chamber pacemaker implantation 11/16/2018, CAD with history of status post stent, complicated by congestive heart failure post procedure,felt to be both ischemia and rate-related tachycardia-induced cardiomyopathy at that time, echo done in June 2008 shows normal EF, diastolic chf, multifactor lower extremity edema with diastolic dysfunction and lymphedema, hyperlipidemia, type 2 diabetes, morbid obesity, depression, presents with shortness of breath and burning sensation in the chest. The patient lives alone. Yesterday evening at 6:00 p.m., she started to notice some shortness of breath and some burning sensation in the chest. She took nitro that did not help her and shortness of breath got worse and she called the EMS and was brought into the hospital. The pain was in the left side of chest, moderate in severity, no radiation. In the ER when she arrived, she was hypoxic 82% room air, and with 3 liters oxygen, saturation improved. With Ativan and GI cocktail, her chest discomfort almost resolved. Currently, resting comfortable and hemodynamically stable. She has chronic lower extremity lymphedema, she says its the same, there is no increase in the edema of the lower extremity. Denies any headache, no blurred vision, no runny nose, no sore throat, no difficulty swallowing. Appetite is okay. The patient is compliant with the salt intake. No nausea, no abdominal pain. Normal bowel and bladder movements. No hematuria, no black stools or hematochezia. Currently, resting comfortable and hemodynamically stable. Admission Exam Per Admitting Provider PHYSICAL EXAMINATION: GENERAL: The patient is morbidly obese, not in acute distress. VITAL SIGNS: Temperature 36.7, pulse 64, respiratory rate 20, blood pressure 140/80, oxygen 82% room air, currently 95% on 3 liters. HEENT: No pallor, no icterus. Pupils equal, round, and reactive to light. NECK: No JVD, no neck masses, no carotid bruits. CARDIOVASCULAR: S1, S2 heard, regular rate and rhythm, no murmur, no gallop. RESPIRATORY SYSTEM: Clear to auscultation bilaterally. No wheezing. No crackles, no accessory muscle use. ABDOMEN: Soft, bowel sounds present. Nontender. No distention. CENTRAL NERVOUS SYSTEM: Cranial nerves II-XII grossly intact. Nonfocal. EXTREMITIES: Bilateral chronic lower extremity edema seen. No erythema seen. Principal Diagnosis Atypical chest pain Hypoxia-resolved Orthostatic hypotension Discharge Data Allergies Allergy/AdvReac Type Severity Reaction Status Date / Time cetirizine Allergy Intermediate Hallucinati Verified 12/19/18 01:51 ng hydroxyzine AdvReac Intermediate Hallucinati Verified 12/19/18 01:51 ng Consultations 12/19/18 02:57 ED Decision to Admit Stat 12/19/18 05:52 Consult Case Management - Discharge Planning Routine 12/19/18 08:00 Consult Cardiology Routine Ordered Studies 12/19/18 01:51 CT angio chest PE protocol Urgent Hospital Course (1) Acute on chronic diastolic (congestive) heart failure: (2) Orthostatic hypotension: . (3) Paroxysmal A-fib: (4) Atypical chest pain: (5) Acid reflux: 73-year-old female presented to the ER with some shortness of breath and a burning sensation in her chest. She lives alone and she was concerned about this as she took nitroglycerin which did not improve her shortness of breath. Her symptoms became worse. She was brought to the hospital via EMS and was found to be hypoxic to 82% on room air improved with 3 L of oxygen via nasal cannula. She was given Ativan and GI cocktail with chest discomfort almost completely resolved. Chest imaging showed some mild congestion and she was on torsemide 20 mg p.o. twice daily at home regularly. She was admitted to the Hospitalist service and was given a small dose of Lasix 20 mg IV with subsequent improvement in her breathing and resolution of the hypoxia of the following day. Serial cardiac enzymes were negative overnight and review of telemetry revealed no acute events. An echocardiogram was performed revealing mild concentric LVH, normal left ventricular systolic function with an EF of 60 to 65%, no segmental left ventricular wall motion abnormalities, diastolic dysfunction, aortic valve sclerosis that is moderate without significant aortic valve stenosis and severe left atrial enlargement. Cardiology was consulted and her symptoms were more suggestive of acid reflux. She was started on Protonix and an H2 iman and was set up for an outpatient Lexiscan nuclear stress stress test the following week. On re-evaluation later that afternoon she appeared to be lightheaded when ambulating, and was orthostatic with position change. She was kept one more night, diuretics were held and IV fluids were given with improvement. The following day she felt completely back to baseline with total resolution of symptoms. Protonix and ranitidine are to be continued and we discussed how best to use these. We also discussed possible diet modifications she could try. Physical exam was unremarkable and she was sent home in stable condition with close primary care follow-up. Total Time Total Time Spent Total Time Spent (In Minutes): 60 Total Time Includes: Examination of the Patient, Discharge Planning, Medication Reconciliation, Communication With Other Providers and Other (followup) Discharge Plan Discharge Items Patient Disposition: Home - Self-Care Reason For Visit: SHORT OF BREATH Discharge Diagnosis: Atypical chest pain Hypoxia-resolved Orthostatic hypotension Condition: Good Discharge Goals: Improve disease control Activity: Resume your previous activity Non-emergency contact: Primary Care Provider Call non-emergency contact if: you have any medication questions, your symptoms worsen, your pain is not controlled and you have a fever Follow-up/Referrals: Jason West MD [Primary Care Provider] - Diet: Carb Consistent or DM2 and Heart Healthy Addtl Provider Instructions: Please take all medications as instructed on discharge list below. You have the following appointment scheduled with your primary care provider: 12/30/2018 10:00 AM Jason West MD [facility] It was a pleasure taking care of you! Please call if you have any questions or problems. You can reach a [facility] hospitalist on duty at [facility] 24 hours a day by calling [phone]. Take care of yourself. Marcelle Looney, DO [facility] Hospitalist Prescriptions: New pantoprazole 40 mg Tablet,Delayed Release (Dr/Ec) 40 mg PO QAM Qty: 30 RF: 2 ranitidine HCl 150 mg Tablet 150 mg PO BID Qty: 30 RF: 1 Continued multivitamin Tablet 1 tab PO PM RF: 0 atorvastatin 40 mg Tablet 40 mg PO QAM RF: 0 torsemide 20 mg tablet 20 mg PO BID RF: 0 metoprolol succinate 100 mg Tablet Extended Release 24 Hr 100 mg PO QAM RF: 0 clopidogrel [Plavix] 75 mg Tablet 75 mg PO QAM RF: 0 nitroglycerin [Nitrostat] 0.4 mg Tablet, Sublingual 0.4 mg Sublingual DIRECTED PRN (Reason: Chest Pain) RF: 0 oxybutynin chloride 5 mg Tablet 5 mg PO BID RF: 0 coenzyme Q10 [CoQ-10] 100 mg Capsule 100 mg PO QDL RF: 0 cinnamon bark [Cinnamon] 500 mg Capsule 500 mg PO QAM RF: 0 Lantus Solostar U-100 Insulin 100 unit/mL (3 mL) Insulin Pen 20 unit SUBCUT BIDM RF: 0 Eliquis 5 mg Tablet 5 mg PO BID RF: 0 Entresto 24-26 mg Tablet 1 tab PO BID RF: 0 magnesium oxide 400 mg magnesium Tablet 400 mg PO BID RF: 0 calcium carbonate [Calcium 600] 600 mg calcium (1,500 mg) Tablet 600 mg PO BIDM RF: 0 Stand-Alone Forms: [facility] Discharge Orders: Discharge Order (Routine); Ordered 12/20/18 Ordered By: Marcelle Looney Admission Data Admit Date/Time: 12/19/18 05:18 Attending Provider: Marcelle Looney Admit Provider: Choco Waite Primary Care Provider: Jason West Other Providers: Choco Waite ; Steven Levine ; Tristian Vaca ; Segun Cooley ; Franc Montiel ; Abhinav Moreno ; Aurelio Viera ; Clementina Anaya ; Ludmila Doty Service: Telemetry Other Interventions: Discharge Summary Assessment (RN) Last Done: 12/20/18 13:20 DC Date/Time DO NOT enter until pt leaves facility: 12/20/18 14:37
== END 2018-12-20 14:37 | disposition home or self-care (01) ==
LOC: ED 01:02 → 2S 05:18

== ENCOUNTER 2020-04-10 23:46 | Inpatient (IN) ==
[2020-04-11] MEDS ORDERED: fentaNYL citrate 100 MCG/2 ML VIAL IV STA (00:09)
--- NOTE | 2020-04-11 00:22 | Emergency Department Note ---
Impression & Plan Midsternal chest pain ED Provider Note NAME: ISIDRO MURPHY AGE: 74 SEX: F ARRIVES VIA: Ambulance INFORMANT: Patient ED PROVIDER(S): Soni Coker DO CHIEF COMPLAINT: Chest pain PLAN: Dis[facility]: [facility] Condition: Stable MEDICAL DECISION MAKING: This is a 74-year-old female patient with an extensive past medical history who presents with substernal chest pain. Patient had an EKG which was unremarkable. She had a negative troponin. Patient's chest discomfort subsided here in the emergency department after receiving IV fentanyl. She had been seen earlier today by [facility] cardiology for follow-up of atrial fibrillation. The patient presented here tonight in an atrial paced rhythm but then upon repeat evaluation was found to be in a normal sinus rhythm. The patient is being [facility]. Triage Nursing notes reviewed and agree them. Prior medical records reviewed Vital Signs: reviewed and remarkable for hypertension Differential diagnosis: GERD, aortic dissection, cardiac ischemia, cardiac dysrhythmia ER treatment provided: IV fentanyl Diagnostics interpreted by me: ECG: Atrial paced rhythm at a rate of 66. There is no ST segment elevation or signs of ischemia. There is no ectopy Cardiac Monitoring: Atrial fib at a rate of 72 Laboratory studies: See below Imaging studies: As per my interpretation Chest x-ray: No acute pulmonary infiltrates or consolidations. There is cardiomegaly HPI: 74/F arrives for evaluation of chest pain. The patient presents to the emergency department after developing midsternal chest pain approximately 2 hours ago. She describes the pain as burning in nature. She describes her ch est as feeling hot. She describes it as a heaviness or as if something is sitting on her chest. She has had this sensation in the past the last episode was more than a year ago. Patient does have a history of A. fib with a pacer in place. She has had cardiac stents placed before. EMS administered aspirin as well as 3 sublingual nitroglycerin. The patient initially rated her discomfort as a 7/10 and she rates it as a 5/10 at this time. ROS: See above HPI for pertinent positives & negatives. A total of 10 systems reviewed and were otherwise negative. PAST MEDICAL HISTORY:See Below PAST SURGICAL HISTORY:See Below FAMILY HISTORY:See Below SOCIAL HISTORY:See Below HOME MEDICATIONS:See list ALLERGIES:See list VITALS:See Below PHYSICAL EXAMINATION: HEENT: Head - normocephalic and atraumatic Pupils are equal, round, and reactive to light. Extraocular eye muscles are intact, and sclera are anicteric. Nose - moist nasal mucosa without discharge. Mouth - moist buccal mucosa. Oropharynx is nonerythematous and there is no tonsillar exudate or edema noted. Neck: Supple; no JVD or cervical lymphadenopathy Heart: Regular rate and rhythm. There is a normal S1 and S2 with no murmurs, clicks, or gallops appreciated. Lungs: Clear to auscultation bilaterally with no wheezes, rales, or rhonchi. Abdomen: Soft, completely nontender, nondistended, with good bowel sounds. There are no palpable pulsatile masses or hepatosplenomegaly. There is no guarding, rigidity, or rebound noted. Extremities: No evidence of cyanosis, clubbing, or edema. There are easily palpable peripheral pulses. Skin: warm and dry with good turgor and no rashes. ED COURSE: Times/Reassessments: 2350: Patient was evaluated in room A4. A complete history and physical was performed. An order was placed for continuous cardiac monitoring. The patient was in A. fib on the monitor. A twelve-lead EKG was obtained. Laboratory studies were drawn as above. The patient was given IV fentanyl for the pain in her chest with significant relief afterwards. 0130: On reevaluation of the patient, she is resting comfortably. In fact, she was sleeping. She states that the pain has resolved. I reviewed the results of the labs and chest x-ray with the patient. The patient will be [facility]. Soni Coker DO Past Med/Surg History Medical History (Updated 04/11/20 @ 04:28 by Soni Coker DO) Chronic diastolic HF (heart failure) Coronary artery disease "anterior [place] 11/10/17, LVEF 20-25%, PCI LAD with ISABEL" DM type 2 (diabetes mellitus, type 2) Dyslipidemia Hx of supraventricular tachycardia Hypertension Osteoarthritis Paroxysmal A-fib on Eliquis Surgical History H/O ovarian cystectomy History of appendectomy History of cholecystectomy History of right knee joint replacement History of tonsillectomy Status post coronary artery stent placement "PCI LAD with ISABEL 11/10/17" Social History Smoking Status: Never smoker Second Hand Exposure: No; Hx Alcohol Use: Yes Hx Substance Use: No Preferred Language: Dutch Communication Ability: Effective Visual Impairment: No Limitations Commercial Intelligence Manager Required: No Beliefs That Will Affect Care: None marital status: / Current Living Situation: Alone Current Living Situation Comment: States she will be looking to move to assisted living Other Information That Helps Us Care for You: No Feels Safe at Home: Yes Safety Concerns: Feels Safe At This Time Allergies Allergies Allergy/AdvReac Type Severity Reaction Status Date / Time cetirizine Allergy Intermediate Hallucinati Verified 04/11/20 00:52 ng hydroxyzine AdvReac Intermediate Hallucinati Verified 04/11/20 00:52 ng Home Meds Home Medications Medication Instructions Recorded Confirmed Eliquis 5 mg PO BID 06/18/18 04/11/20 Lantus Solostar U-100 Insulin 20 unit SUBCUT BIDM 06/18/18 04/11/20 atorvastatin 40 mg PO QAM 06/18/18 04/11/20 metoprolol succinate 100 mg PO QAM 06/18/18 04/11/20 multivitamin 1 tab PO PM 06/18/18 04/11/20 nitroglycerin [Nitrostat] 0.4 mg SUBLINGUAL DIRECTED PRN 06/18/18 04/11/20 oxybutynin chloride 5 mg PO BID 06/18/18 04/11/20 torsemide 20 mg PO BID 06/18/18 04/11/20 sacubitril-valsartan [Entresto] 1 tab PO BID 04/10/20 04/11/20 glipizide 5 mg PO BID 04/11/20 04/11/20 Results & Data (ED) Vital Signs Vital Signs - 24 hr 04/10/20 23:51 04/11/20 00:18 04/11/20 00:29 Temperature 36.7 C Temperature Source Oral Pulse Rate 64 Pulse Rate [Right Finger] Respiratory Rate 18 Respiratory Depth Normal Blood Pressure 118/55 L Blood Pressure [Right Arm] Blood Pressure Mean 76 Blood Pressure Mean [Right Arm] Blood Pressure Position Lying Blood Pressure Position [Right Arm] Pulse Oximetry 96 98 98 Oxygen Delivery Method Room Air Room Air Room Air Oxygen Flow Rate 0 Sepsis Recent Fever Within 48 Hours No Sepsis New/Unexplained Change in Mental Status No Sepsis Action Taken by Nursing No Action Required 04/11/20 01:30 Temperature Temperature Source Pulse Rate Pulse Rate [Right Finger] 60 Respiratory Rate 16 Respiratory Depth Normal Blood Pressure Blood Pressure [Right Arm] 113/47 L Blood Pressure Mean Blood Pressure Mean [Right Arm] 69 Blood Pressure Position Blood Pressure Position [Right Arm] Lying Pulse Oximetry 96 Oxygen Delivery Method Room Air Oxygen Flow Rate Sepsis Recent Fever Within 48 Hours Sepsis New/Unexplained Change in Mental Status Sepsis Action Taken by Nursing Laboratory Data Result diagrams: 04/11/20 00:17 04/11/20 00:17 Lab Results 04/11/20 04/11/20 04/11/20 Range/Units 00:17 00:17 00:17 WBC 9.45 (4.8-10.8) K/uL RBC 4.12 L (4.2-5.4) M/uL Hgb 10.6 L (12.0-16.0) g/dL Hct 35.0 L (37-47) % MCV 85.0 (80-100) fL MCH 25.7 (25-34) pg MCHC 30.3 L (32-36) g/dL RDW Std Deviation 47.4 H (36.4-46.3) fL RDW Coeff of [place] 15.2 H (11.5-14.5) % Plt Count 227 (130-400) K/uL MPV 9.4 (7.4-10.4) fL Immature Gran % (Auto) 0.2 % Neut % (Auto) 64.3 % Lymph % (Auto) 27.9 % [place] % (Auto) 5.6 % Eos % (Auto) 1.8 % Baso % (Auto) 0.2 % Neut # (Auto) 6.07 (1.4-6.5) K/uL Lymph # (Auto) 2.64 (1.2-3.4) K/uL [place] # (Auto) 0.53 (0.11-0.59) K/uL Eos # (Auto) 0.17 (0-0.5) K/uL Baso # (Auto) 0.02 (0-0.2) K/uL Immature Gran # (Auto) 0.02 (0.00-0.02) K/uL PT 12.4 H (9.0-12.0) Seconds INR 1.2 H (0.9-1.1) APTT 25.9 (21.0-31.0) Seconds PTT Ratio 0.9 Sodium 142 (136-145) mmol/L Potassium 4.2 (3.5-5.1) mmol/L Chloride 106 (98-107) mmol/L Carbon Dioxide 31 (21-32) mmol/L Anion Gap 5.0 (3-11) BUN 31 H (7-18) mg/dl Creatinine 1.14 (0.6-1.2) mg/dl Est Cr Clr Drug Dosing 57.5 ml/min Est GFR ( Amer) 54.5 Est GFR (Non-Af Amer) 47.0 BUN/Creatinine Ratio 26.8 H (10-20) Glucose 117 H (70-99) mg/dl Calcium 8.4 L (8.5-10.1) mg/dl Magnesium 2.0 (1.8-2.4) mg/dl Total Bilirubin 0.4 (0.2-1) mg/dl AST 17 (15-37) U/L ALT 22 (12-78) U/L Alkaline Phosphatase 78 (45-117) U/L Troponin I < 0.015 (0-0.045) ng/ml Total Protein 6.5 (6.4-8.2) gm/dl Albumin 2.8 L (3.4-5.0) gm/dl Globulin 3.7 (2.5-4.0) gm/dl Albumin/Globulin Ratio 0.8 L (0.9-2) Lipase 99 (73-393) U/L Administered Medications Sodium Chloride (Nss 1000ml) 1,000 mls @ 40 mls/hr IV .Q24H KAYLA Stop: 05/11/20 03:07 Last Admin: 04/11/20 03:47 Dose: 40 mls/hr Documented by: [id number] Discontinued Medications Fentanyl Citrate (Fentanyl Citrate 100 Mcg/2 Ml Vial) 50 mcg IV NOW STA Stop: 04/11/20 00:10 Last Admin: 04/11/20 00:28 Dose: 50 mcg Documented by: [id number] Discharge Plan Visit Data Chief Complaint: Chest Pain Stated Complaint: CHEST PRESSURE ED Provider: Soni Coker Discharge Problem: Midsternal chest pain Patient Disposition: Admitted As Inpatient Discharge Instructions Interventions: ED Discharge Assessment Last Done: 04/11/20 02:57
[2020-04-11 00:26] LABS: Basophils # (auto) 0.02 K/uL (0-0.2); Basophils % (auto) 0.2 %; Eosinophils # (auto) 0.17 K/uL (0-0.5); Eosinophils % (auto) 1.8 %; Hemoglobin 10.6 g/dL (12.0-16.0); Immature Granulocytes # (auto) 0.02 K/uL (0.00-0.02); Immature Granulocytes % (auto) 0.2 %; Lymphocytes # (auto) 2.64 K/uL (1.2-3.4); Lymphocytes % (auto) 27.9 %; Mean Corpuscular Hemoglobin 25.7 pg (25-34); Mean Corpuscular Hgb Conc 30.3 g/dL (32-36); Mean Platelet Volume 9.4 fL (7.4-10.4); Monocytes # (auto) 0.53 K/uL (0.11-0.59); Monocytes % (auto) 5.6 %; Neutrophils # (auto) 6.07 K/uL (1.4-6.5); Neutrophils % (auto) 64.3 %; Platelet Count 227 K/uL (130-400); RDW Coefficient of Variation 15.2 % (11.5-14.5); RDW Standard Deviation 47.4 fL (36.4-46.3); Red Blood Count 4.12 M/uL (4.2-5.4); White Blood Count 9.45 K/uL (4.8-10.8)
[2020-04-11 00:37] LABS: INR 1.2 (0.9-1.1); Partial Thromboplastin Ratio 0.9; Partial Thromboplastin Time 25.9 Seconds (21.0-31.0); Prothrombin Time 12.4 Seconds (9.0-12.0)
[2020-04-11 00:44] LABS: Alanine Aminotransferase 22 U/L (12-78); Albumin Level 2.8 gm/dl (3.4-5.0); Aspartate Aminotransferase 17 U/L (15-37); BUN Creatinine Ratio 26.8 (10-20); Blood Urea Nitrogen 31 mg/dl (7-18); Calcium 8.4 mg/dl (8.5-10.1); Carbon Dioxide 31 mmol/L (21-32); Chloride 106 mmol/L (98-107); Creatinine Clr Calc Pharmacy 57.5 ml/min; Est GFR (African American) 54.5; Glucose 117 mg/dl (70-99); Lipase 99 U/L (73-393); Potassium 4.2 mmol/L (3.5-5.1); Sodium 142 mmol/L (136-145)
[2020-04-11 00:49] LABS: Albumin Globulin Ratio 0.8 (0.9-2); Alkaline Phosphatase 78 U/L (45-117); Bilirubin,Total 0.4 mg/dl (0.2-1); Globulin 3.7 gm/dl (2.5-4.0); Total Protein 6.5 gm/dl (6.4-8.2); Troponin I < 0.015 ng/ml (0-0.045)
--- NOTE | 2020-04-11 02:21 | History & Physical Report ---
Date of Service April 11, 2020 Assessment & Plan (1) Chest pain: History CAD status post stent Rule out ACS chronic diastolic heart failure (EF 60 to 65%, TTE 2019), at baseline SSS status post PPM on Eliquis, paced rhythm hypertension, stable hyperlipidemia on statin Rx DM 2 insulin requiring, suboptimal control as of recent outpatient hemoglobin A1c of 8.03 Dec 2019 past tobacco abuse OBS PCU Aspirin, beta-iman, statin Rx Trend troponin TTE if with progression Cardiology consult in a.m. RE chest pain, history CAD N.p.o. until patient seen by cardiology Basal insulin adjusted for n.p.o. status, ISS BG goal [id number], update hemoglobin A1c DVT prophylaxis. Eliquis if okay with cardiology Full code Text document was generated using [employer] voice recognition software. It may contain grammatical or spelling errors. Kindly contact undersigned for clarification of any documentation item in question. History of Present Illness Chief Complaint: Chest pain Primary Care Provider: Jason West MD History obtained from patient and records. Medical history significant for chronic diastolic heart failure (EF 60 to 65%, TTE 2018), SSS status post PPM on Eliquis, CAD status post stent, hypertension, hyperlipidemia, DM 2 insulin requiring, past tobacco abuse. Last confinement November 2018 for atypical chest pain. Patient seen at [facility]iology office outpatient yesterday for routine follow-up visit. Appropriate device function on interrogation. Home beta-iman dose adjusted as per note. Patient was watching television at home last night when she experienced substernal heaviness described as heavy burning different from heartburn and without radiation, with some shortness of breath. No cough symptoms. No prior episodes. No unusual weight gain/usual leg swelling at home as per patient.. Chest pain relieved by Fentanyl administration at the ER. 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 Allergies Allergy/AdvReac Type Severity Reaction Status Date / Time cetirizine Allergy Intermediate Hallucinati Verified 04/11/20 00:52 ng hydroxyzine AdvReac Intermediate Hallucinati Verified 04/11/20 00:52 ng Home Medications Home Medications Medication Instructions Recorded Confirmed Type Eliquis 5 mg PO BID 06/18/18 04/11/20 History Lantus Solostar U-100 Insulin 20 unit SUBCUT BIDM 06/18/18 04/11/20 History atorvastatin 40 mg PO QAM 06/18/18 04/11/20 History metoprolol succinate 100 mg PO QAM 06/18/18 04/11/20 History multivitamin 1 tab PO PM 06/18/18 04/11/20 History nitroglycerin [Nitrostat] 0.4 mg SUBLINGUAL DIRECTED PRN 06/18/18 04/11/20 History oxybutynin chloride 5 mg PO BID 06/18/18 04/11/20 History torsemide 20 mg PO BID 06/18/18 04/11/20 History sacubitril-valsartan [Entresto] 1 tab PO BID 04/10/20 04/11/20 History glipizide 5 mg PO BID 04/11/20 04/11/20 History Past Med/Surg History Medical History (Updated 04/11/20 @ 04:35 by Jamison Conner MD) Chronic diastolic HF (heart failure) Coronary artery disease "anterior [place] 11/10/17, LVEF 20-25%, PCI LAD with ISABEL" DM type 2 (diabetes mellitus, type 2) Dyslipidemia Hx of supraventricular tachycardia Hypertension Osteoarthritis Paroxysmal A-fib on Eliquis Surgical History H/O ovarian cystectomy History of appendectomy History of cholecystectomy History of right knee joint replacement History of tonsillectomy Status post coronary artery stent placement "PCI LAD with ISABEL 11/10/17" Social History Smoking Status: Never smoker Second Hand Exposure: No; Hx Alcohol Use: Yes Hx Substance Use: No Preferred Language: Zimbabwean Communication Ability: Effective Visual Impairment: No Limitations Roentgenologist Required: No Beliefs That Will Affect Care: None marital status: / Current Living Situation: Alone Current Living Situation Comment: States she will be looking to move to assisted living Other Information That Helps Us Care for You: No Feels Safe at Home: Yes Safety Concerns: Feels Safe At This Time Review of Systems Review of Systems: As per HPI, all 10 systems reviewed, all other ROS negative Physical Exam Physical Exam: GENERAL: Comfortable, morbidly obese, pleasant, no respiratory distress SKIN: Normal color, warm HEENT: Bespectacled, pink palpebral conjunctivae, no ptosis, moist buccal mucosa NECK : Supple, short neck, no tenderness CHEST : CTA, no tenderness HEART : RRR, no obvious murmurs ABDOMEN: Some distention, nontender EXTREMITIES : Chronic lymphedematous LE swelling, no LE tenderness, no other conspicuous deformities noted NEUROLOGIC : Coherent, no facial asymmetry, no other gross focality Results & Data Results & Data ([facility]) Vital Signs (Past 12 Hours) Vital Signs Temp Pulse Pulse Resp BP BP Pulse Ox 04/11/20 01:30 60 16 113/47 L 96 04/11/20 00:29 98 04/11/20 00:18 98 04/10/20 23:51 36.7 C 64 18 118/55 L 96 Laboratory Results Laboratory Results WBC 9.45 K/uL (4.8-10.8) 04/11/20 00:17 RBC 4.12 M/uL (4.2-5.4) L 04/11/20 00:17 Hgb 10.6 g/dL (12.0-16.0) L 04/11/20 00:17 Hct 35.0 % (37-47) L 04/11/20 00:17 MCV 85.0 fL (80-100) 04/11/20 00:17 MCH 25.7 pg (25-34) 04/11/20 00:17 MCHC 30.3 g/dL (32-36) L 04/11/20 00:17 RDW Std Deviation 47.4 fL (36.4-46.3) H 04/11/20 00:17 RDW Coeff of [place] 15.2 % (11.5-14.5) H 04/11/20 00:17 Plt Count 227 K/uL (130-400) 04/11/20 00:17 MPV 9.4 fL (7.4-10.4) 04/11/20 00:17 Immature Gran % (Auto) 0.2 % 04/11/20 00:17 Neut % (Auto) 64.3 % 04/11/20 00:17 Lymph % (Auto) 27.9 % 04/11/20 00:17 [place] % (Auto) 5.6 % 04/11/20 00:17 Eos % (Auto) 1.8 % 04/11/20 00:17 Baso % (Auto) 0.2 % 04/11/20 00:17 Neut # (Auto) 6.07 K/uL (1.4-6.5) 04/11/20 00:17 Lymph # (Auto) 2.64 K/uL (1.2-3.4) 04/11/20 00:17 [place] # (Auto) 0.53 K/uL (0.11-0.59) 04/11/20 00:17 Eos # (Auto) 0.17 K/uL (0-0.5) 04/11/20 00:17 Baso # (Auto) 0.02 K/uL (0-0.2) 04/11/20 00:17 Immature Gran # (Auto) 0.02 K/uL (0.00-0.02) 04/11/20 00:17 PT 12.4 Seconds (9.0-12.0) H 04/11/20 00:17 INR 1.2 (0.9-1.1) H 04/11/20 00:17 APTT 25.9 Seconds (21.0-31.0) 04/11/20 00:17 PTT Ratio 0.9 04/11/20 00:17 Sodium 142 mmol/L (136-145) 04/11/20 00:17 Potassium 4.2 mmol/L (3.5-5.1) 04/11/20 00:17 Chloride 106 mmol/L (98-107) 04/11/20 00:17 Carbon Dioxide 31 mmol/L (21-32) 04/11/20 00:17 Anion Gap 5.0 (3-11) 04/11/20 00:17 BUN 31 mg/dl (7-18) H 04/11/20 00:17 Creatinine 1.14 mg/dl (0.6-1.2) 04/11/20 00:17 Est Cr Clr Drug Dosing 57.5 ml/min 04/11/20 00:17 Est GFR ( Amer) 54.5 04/11/20 00:17 Est GFR (Non-Af Amer) 47.0 04/11/20 00:17 BUN/Creatinine Ratio 26.8 (10-20) H 04/11/20 00:17 Glucose 117 mg/dl (70-99) H 04/11/20 00:17 Calcium 8.4 mg/dl (8.5-10.1) L 04/11/20 00:17 Magnesium 2.0 mg/dl (1.8-2.4) 04/11/20 00:17 Total Bilirubin 0.4 mg/dl (0.2-1) 04/11/20 00:17 AST 17 U/L (15-37) 04/11/20 00:17 ALT 22 U/L (12-78) 04/11/20 00:17 Alkaline Phosphatase 78 U/L (45-117) 04/11/20 00:17 Troponin I < 0.015 ng/ml (0-0.045) 04/11/20 00:17 Total Protein 6.5 gm/dl (6.4-8.2) 04/11/20 00:17 Albumin 2.8 gm/dl (3.4-5.0) L 04/11/20 00:17 Globulin 3.7 gm/dl (2.5-4.0) 04/11/20 00:17 Albumin/Globulin Ratio 0.8 (0.9-2) L 04/11/20 00:17 Lipase 99 U/L (73-393) 04/11/20 00:17 Diagnostic Findings Chest x-ray as per my interpretation elevated right hemidiaphragm, no congestion, pacemaker left EKG as per my interpretation : Rate 65, paced rhythm
[2020-04-11] MEDS ORDERED: SODIUM CHLORIDE 0.9% 1000ML 1,000 ML IV SCH (03:08)
[2020-04-11] MEDS ORDERED: GLUCOSE 40% GEL 15 GM TUBE PO PRN (03:08)
[2020-04-11] MEDS ORDERED: TRAMADOL HCL 50 MG TABLET PO PRN (03:08)
[2020-04-11] MEDS ORDERED: CARBOHYDRATES FOR HYPOGLYCEMIA PO PRN (03:08)
[2020-04-11] MEDS ORDERED: MoRPHine SULFATE 2 MG/ML CARP IV PRN (03:08)
[2020-04-11] MEDS ORDERED: ACETAMINOPHEN 325 MG TAB PO PRN (03:08)
[2020-04-11] MEDS ORDERED: LORazepam 0.25 MG/0.5 ML VIAL IV PRN (03:08)
[2020-04-11] MEDS ORDERED: GLUCAGON FOR INJ 1 MG VIAL SQ PRN (03:08)
[2020-04-11] MEDS ORDERED: GLUCOSE 10 TABS/TUBE PO PRN (03:08)
[2020-04-11] MEDS ORDERED: DEXTROSE 50% 50 ML SYRINGE IV PRN (03:08)
[2020-04-11 05:47] LABS: Estimated Average Glucose 143 mg/dl; Hemoglobin A1C 6.6 % (4.5-5.6)
[2020-04-11] MEDS: INSULIN ASPART 100 UNITS/ML 3 ML PEN SC SCH ×3 (05:54→17:03)
[2020-04-11 07:43] LABS: Chol HDL Ratio 3; Cholesterol 81 mg/dl (0-200); HDL Cholesterol 26 mg/dl; LDL Cholesterol Calculated 29 mg/dl; Triglycerides 131 mg/dl (0-150); Troponin I < 0.015 ng/ml (0-0.045); VLDL Cholesterol 26 mg/dl
--- NOTE | 2020-04-11 08:14 | XRay Report ---
XR chest 1V portable HISTORY: 74 years-old Female Chest Pain acute atypical chest pain COMPARISON: Chest radiograph and CTA chest 12/19/2018 TECHNIQUE: Portable AP view of the chest FINDINGS: Cardiac mediastinal and hilar silhouettes are unchanged. Left subclavian pacer. No pneumothorax, pleu ral effusion, overt pulmonary edema or airspace consolidation typical for pneumonia. Chronic right he midiaphragmatic elevation. Degenerative changes of the shoulders and spine. Orthopedic anchors the ri ght humeral head. IMPRESSION: No acute process. ACT 112: Negative or not required by law. The above report was generated using voice recognition software. It may contain grammatical, syntax o r spelling errors. Electronically signed by: Sebastien Maddox M.D. 04/11/2020 8:13 AM
[2020-04-11] MEDS: INSULIN GLARGINE SOLOSTAR 100 UNITS/ML 3 ML PEN SQ SCH ×2 (08:15→15:59)
[2020-04-11] MEDS: OXYBUTYNIN CHLORIDE 5 MG TAB PO SCH ×2 (08:16→20:04)
[2020-04-11] MEDS: ATORVASTATIN 40 MG TAB PO SCH (08:16)
[2020-04-11] MEDS: METOPROLOL SUCC 50MG EXT REL TAB PO SCH (08:16)
[2020-04-11] MEDS: SACUBITRIL-VALSARTAN 24-26 MG TAB PO SCH ×2 (08:16→20:05)
[2020-04-11] MEDS ORDERED: APIXABAN 5 MG TABLET PO SCH (09:00)
--- NOTE | 2020-04-11 09:25 | Cardiology Consultation ---
Date of Consultation April 11, 2020 Assessment & Plan (1) Chest pain: Trop is negative x 2. EKG in ED was without ischemic changes. Stat EKG performed at time of reproduction of symptoms at 9:17 am today , when I was at the bedside is normal. Continue observation. Check resting echo. Trend 3rd troponin. Unable to walk on TM due to knee pain. Poor candidate for dobutamine stress test due to paroxysmal AF. Plan for lexiscan nuclear, 2 day protocol. Received Eliquis at 8 am. Will hold Eliquis, start heparin bridge at 20:00 in case cardiac cath becomes necessary. History of Present Illness Attending Physician: David Giraldo MD Allergies Allergy/AdvReac Type Severity Reaction Status Date / Time cetirizine Allergy Intermediate Hallucinati Verified 04/11/20 00:52 ng hydroxyzine AdvReac Intermediate Hallucinati Verified 04/11/20 00:52 ng Home Medications Home Medications Medication Instructions Recorded Confirmed Type Eliquis 5 mg PO BID 06/18/18 04/11/20 History Lantus Solostar U-100 Insulin 20 unit SUBCUT BIDM 06/18/18 04/11/20 History atorvastatin 40 mg PO QAM 06/18/18 04/11/20 History metoprolol succinate 100 mg PO QAM 06/18/18 04/11/20 History multivitamin 1 tab PO PM 06/18/18 04/11/20 History nitroglycerin [Nitrostat] 0.4 mg SUBLINGUAL DIRECTED PRN 06/18/18 04/11/20 History oxybutynin chloride 5 mg PO BID 06/18/18 04/11/20 History torsemide 20 mg PO BID 06/18/18 04/11/20 History sacubitril-valsartan [Entresto] 1 tab PO BID 04/10/20 04/11/20 History glipizide 5 mg PO BID 04/11/20 04/11/20 History Patient History Medical History (Updated 04/11/20 @ 04:35 by Jamison Conner MD) Chronic diastolic HF (heart failure) Coronary artery disease "anterior [place] 11/10/17, LVEF 20-25%, PCI LAD with ISABEL" DM type 2 (diabetes mellitus, type 2) Dyslipidemia Hx of supraventricular tachycardia Hypertension Osteoarthritis Paroxysmal A-fib on Eliquis Surgical History H/O ovarian cystectomy History of appendectomy History of cholecystectomy History of right knee joint replacement History of tonsillectomy Status post coronary artery stent placement "PCI LAD with ISABEL 11/10/17" Social History Smoking Status: Never smoker Second Hand Exposure: No; Hx Alcohol Use: Yes Hx Substance Use: No Preferred Language: Malawian Communication Ability: Effective Visual Impairment: No Limitations Morning News Anchor Required: No Beliefs That Will Affect Care: None marital status: / Current Living Situation: Alone Current Living Situation Comment: States she will be looking to move to assisted living Other Information That Helps Us Care for You: No Feels Safe at Home: Yes Safety Concerns: Feels Safe At This Time Results & Data ([facility]) Vital Signs (Past 12 Hours) Vital Signs Temp Pulse Pulse Pulse Resp BP BP 04/11/20 07:43 36.5 C 74 18 124/74 04/11/20 03:15 36.7 C 71 20 130/59 L 04/11/20 02:57 60 18 113/58 L 04/11/20 01:30 60 16 113/47 L 04/11/20 00:29 04/11/20 00:18 04/10/20 23:51 36.7 C 64 18 118/55 L Pulse Ox 04/11/20 07:43 96 04/11/20 03:15 97 04/11/20 02:57 98 04/11/20 01:30 96 04/11/20 00:29 98 04/11/20 00:18 98 04/10/20 23:51 96
--- NOTE | 2020-04-11 10:13 | Hospitalist Progress Note ---
Date of Service April 11, 2020 Assessment & Plan (1) Chest pain: History CAD status post stent Rule out ACS chronic diastolic heart failure (EF 60 to 65%, TTE 2018), at baseline SSS status post PPM on Eliquis, paced rhythm hypertension, stable hyperlipidemia on statin Rx DM 2 insulin requiring, -outpatient hemoglobin A1c of 8.03 Dec 2019 Current A1c 6.6%, improved Basal insulin adjusted for n.p.o. status, ISS BG goal [id number], update hemoglobin A1c past tobacco abuse OBS - will admit inpt as further cardiac testing required PCU Aspirin, beta-iman, statin Rx Trend troponin TTE ordered by cardiology for further eval Cardiology consult in a.m. RE chest pain, history CAD N.p.o. until patient seen by cardiology Plan for stress test later today and tomorrow AM DVT prophylaxis. Eliquis if okay with cardiology, now pt on heparin Full code Admission and Anticipated Discharge Date Admission Date: April 11, 2020 Subjective Pt is lying in bed in NAD, states her chest pain has mostly resolved. Denies any shortness of breath or palpitations. Reports episode of chest pressure while at est (watching TV) and again in the hospital. Cardiology following. Pt just had her echocardiogram done and plan for stress test afterwards. Review of Systems Review of Systems: All systems reviewed & are unremarkable except as noted in HPI & below Respiratory: no cough and no dyspnea Cardiovascular: + chest pain (resolved) Gastrointestinal: no abdominal pain, no nausea and no vomiting Physical Exam Physical Exam: GENERAL: Comfortable, morbidly obese, pleasant, no respiratory distress SKIN: Normal color, warm HEENT: NC/AT, Bespectacled, pink palpebral conjunctivae NECK : Supple, short neck, no tenderness CHEST : CTAB, no wheezing, rhonchi, crackles HEART : RRR, no obvious murmurs ABDOMEN: + bowel sounds, obese, some distention, nontender EXTREMITIES : Chronic lymphedematous LE swelling, no LE tenderness NEUROLOGIC : Coherent, no facial asymmetry, speech fluent, moves all extremities spontaneously Results & Data Results & Data ([facility]) Vital Signs (Past 12 Hours) Vital Signs Temp Pulse Pulse Pulse Resp BP BP 04/11/20 07:43 36.5 C 74 18 124/74 04/11/20 03:15 36.7 C 71 20 130/59 L 04/11/20 02:57 60 18 113/58 L 04/11/20 01:30 60 16 113/47 L 04/11/20 00:29 04/11/20 00:18 04/10/20 23:51 36.7 C 64 18 118/55 L Pulse Ox 04/11/20 07:43 96 04/11/20 03:15 97 04/11/20 02:57 98 04/11/20 01:30 96 04/11/20 00:29 98 04/11/20 00:18 98 04/10/20 23:51 96 Laboratory Results 04/11/20 04/11/20 04/11/20 Range/Units 06:22 05:53 00:17 WBC (4.8-10.8) K/uL RBC (4.2-5.4) M/uL Hgb (12.0-16.0) g/dL Hct (37-47) % MCV (80-100) fL MCH (25-34) pg MCHC (32-36) g/dL RDW Std Deviation (36.4-46.3) fL RDW Coeff of [place] (11.5-14.5) % Plt Count (130-400) K/uL MPV (7.4-10.4) fL Immature Gran % (Auto) % Neut % (Auto) % Lymph % (Auto) % [place] % (Auto) % Eos % (Auto) % Baso % (Auto) % Neut # (Auto) (1.4-6.5) K/uL Lymph # (Auto) (1.2-3.4) K/uL [place] # (Auto) (0.11-0.59) K/uL Eos # (Auto) (0-0.5) K/uL Baso # (Auto) (0-0.2) K/uL Immature Gran # (Auto) (0.00-0.02) K/uL PT (9.0-12.0) Seconds INR (0.9-1.1) APTT (21.0-31.0) Seconds PTT Ratio Sodium (136-145) mmol/L Potassium (3.5-5.1) mmol/L Chloride (98-107) mmol/L Carbon Dioxide (21-32) mmol/L Anion Gap (3-11) BUN (7-18) mg/dl Creatinine (0.6-1.2) mg/dl Est Cr Clr Drug Dosing ml/min Est GFR ( Amer) Est GFR (Non-Af Amer) BUN/Creatinine Ratio (10-20) Glucose (70-99) mg/dl POC Glucose 122 H (70-99) mg/dl Estimat Average Glucose 143 mg/dl Hemoglobin A1c 6.6 H (4.5-5.6) % Calcium (8.5-10.1) mg/dl Magnesium (1.8-2.4) mg/dl Total Bilirubin (0.2-1) mg/dl AST (15-37) U/L ALT (12-78) U/L Alkaline Phosphatase (45-117) U/L Troponin I < 0.015 (0-0.045) ng/ml Total Protein (6.4-8.2) gm/dl Albumin (3.4-5.0) gm/dl Globulin (2.5-4.0) gm/dl Albumin/Globulin Ratio (0.9-2) Triglycerides 131 (0-150) mg/dl Cholesterol 81 (0-200) mg/dl LDL Cholesterol, Calc 29 mg/dl VLDL Cholesterol, Calc 26 mg/dl HDL Cholesterol 26 mg/dl Cholesterol/HDL Ratio 3 Lipase (73-393) U/L 04/11/20 04/11/20 04/11/20 Range/Units 00:17 00:17 00:17 WBC 9.45 (4.8-10.8) K/uL RBC 4.12 L (4.2-5.4) M/uL Hgb 10.6 L (12.0-16.0) g/dL Hct 35.0 L (37-47) % MCV 85.0 (80-100) fL MCH 25.7 (25-34) pg MCHC 30.3 L (32-36) g/dL RDW Std Deviation 47.4 H (36.4-46.3) fL RDW Coeff of [place] 15.2 H (11.5-14.5) % Plt Count 227 (130-400) K/uL MPV 9.4 (7.4-10.4) fL Immature Gran % (Auto) 0.2 % Neut % (Auto) 64.3 % Lymph % (Auto) 27.9 % [place] % (Auto) 5.6 % Eos % (Auto) 1.8 % Baso % (Auto) 0.2 % Neut # (Auto) 6.07 (1.4-6.5) K/uL Lymph # (Auto) 2.64 (1.2-3.4) K/uL [place] # (Auto) 0.53 (0.11-0.59) K/uL Eos # (Auto) 0.17 (0-0.5) K/uL Baso # (Auto) 0.02 (0-0.2) K/uL Immature Gran # (Auto) 0.02 (0.00-0.02) K/uL PT 12.4 H (9.0-12.0) Seconds INR 1.2 H (0.9-1.1) APTT 25.9 (21.0-31.0) Seconds PTT Ratio 0.9 Sodium 142 (136-145) mmol/L Potassium 4.2 (3.5-5.1) mmol/L Chloride 106 (98-107) mmol/L Carbon Dioxide 31 (21-32) mmol/L Anion Gap 5.0 (3-11) BUN 31 H (7-18) mg/dl Creatinine 1.14 (0.6-1.2) mg/dl Est Cr Clr Drug Dosing 57.5 ml/min Est GFR ( Amer) 54.5 Est GFR (Non-Af Amer) 47.0 BUN/Creatinine Ratio 26.8 H (10-20) Glucose 117 H (70-99) mg/dl POC Glucose (70-99) mg/dl Estimat Average Glucose mg/dl Hemoglobin A1c (4.5-5.6) % Calcium 8.4 L (8.5-10.1) mg/dl Magnesium 2.0 (1.8-2.4) mg/dl Total Bilirubin 0.4 (0.2-1) mg/dl AST 17 (15-37) U/L ALT 22 (12-78) U/L Alkaline Phosphatase 78 (45-117) U/L Troponin I < 0.015 (0-0.045) ng/ml Total Protein 6.5 (6.4-8.2) gm/dl Albumin 2.8 L (3.4-5.0) gm/dl Globulin 3.7 (2.5-4.0) gm/dl Albumin/Globulin Ratio 0.8 L (0.9-2) Triglycerides (0-150) mg/dl Cholesterol (0-200) mg/dl LDL Cholesterol, Calc mg/dl VLDL Cholesterol, Calc mg/dl HDL Cholesterol mg/dl Cholesterol/HDL Ratio Lipase 99 (73-393) U/L Medications Administered Current Inpatient Medications Acetaminophen (Acetaminophen 325 Mg Tab) 650 mg PO Q4H PRN PRN Reason: Pain or Fever Stop: 05/11/20 03:07 Atorvastatin Calcium (Atorvastatin 40 Mg Tab) 40 mg PO QAM KAYLA Stop: 05/11/20 08:59 Last Admin: 04/11/20 08:16 Dose: 40 mg Documented by: Dextrose (Dextrose 50% 50 Ml Syringe) 25 - 50 ml IV UD PRN; Protocol PRN Reason: Hypoglycemia Protocol Stop: 05/11/20 03:07 Glucagon (Glucagon For Inj 1 Mg Vial) 1 mg SQ UD PRN; Protocol PRN Reason: Hypoglycemia Protocol Stop: 05/11/20 03:07 Glucose (Glucose 10 Tabs/Tube) 4 - 8 tabs PO UD PRN; Protocol PRN Reason: Hypoglycemia Protocol Stop: 05/11/20 03:07 Glucose (Glucose 40% Gel 15 Gm Tube) 15 - 30 gm PO UD PRN; Protocol PRN Reason: Hypoglycemia Protocol Stop: 05/11/20 03:07 Lorazepam (Ativan) 0.25 mg in 0.5 mls @ 0.5 mls/min IV Q4H PRN PRN Reason: Anxiety Stop: 05/11/20 03:07 Sodium Chloride (Nss 1000ml) 1,000 mls @ 40 mls/hr IV .Q24H KAYLA Stop: 05/11/20 03:07 Last Admin: 04/11/20 03:47 Dose: 40 mls/hr Documented by: Heparin Sodium/Dextrose (Heparin Sodium/Dextrose) 25,000 units in 500 mls @ 30 mls/hr IV .[id number] KAYLA; Protocol Stop: 05/11/20 19:59 Insulin Aspart (Insulin Aspart 100 Units/Ml 3 Ml Pen) 0 units SC Q6 KAYLA Stop: 05/11/20 05:59 Last Admin: 04/11/20 05:54 Dose: Not Given Documented by: Insulin Glargine (Insulin Glargine Solostar 100 Units/Ml 3 Ml Pen) 5 units SQ BIDM KAYLA Stop: 05/11/20 07:59 Last Admin: 04/11/20 08:15 Dose: 5 units Documented by: Metoprolol Succinate (Metoprolol Succ 50mg Ext Rel Tab) 100 mg PO QAM KAYLA Stop: 05/11/20 08:59 Last Admin: 04/11/20 08:16 Dose: 100 mg Documented by: Miscellaneous (Carbohydrates For Hypoglycemia ) 15 - 30 gm PO UD PRN PRN Reason: Hypoglycemia Protocol Stop: 05/11/20 03:07 Morphine Sulfate (Morphine Sulfate 2 Mg/Ml Carp) 2 mg IV Q3H PRN PRN Reason: Pain Stop: 04/25/20 03:07 Multivitamins (Multivitamin Tab) 1 tab PO PM [facility] Stop: 05/11/20 20:59 Nitroglycerin (Nitroglycerin Sl 0.4 Mg/Tab Tab) 0.4 mg SL UD PRN PRN Reason: Chest Pain Stop: 05/11/20 03:07 Oxybutynin Chloride (Oxybutynin Chloride 5 Mg Tab) 5 mg PO BID KAYLA Stop: 05/11/20 08:59 Last Admin: 04/11/20 08:16 Dose: 5 mg Documented by: Sacubitril/Valsartan (Sacubitril-Valsartan 24-26 Mg Tab) 1 tab PO BID KAYLA Stop: 05/11/20 08:59 Last Admin: 04/11/20 08:16 Dose: 1 tab Documented by: Tramadol HCl (Tramadol Hcl 50 Mg Tablet) 25 - 50 mg PO Q4H PRN PRN Reason: Pain Stop: 05/11/20 03:07
--- NOTE | 2020-04-11 12:56 | Cardiology Consultation ---
Date of Consultation April 11, 2020 Assessment & Plan (1) Chest pain: The patient's complaint of a "pressure "sensation in her chest is certainly concerning, however serial EKG troponin levels have been negative thus far. Cardiogram performed reveals no wall motion abnormalities. At the time of her presentation when she was found to have high-grade LAD occlusion stent placement, she presented with josias angina congestive heart failure. During that admission chest discomfort occurred authorization patent stent. Call assessing her in the intensive care unit for at least 1 more additional episode of chest pressure that admission resolved with conservative therapy duration. At present she does not appear to be volume overloaded. Third troponin, duration toward nuclear stress testing. She is a poor candidate for stress echocardiogram due to her history of atrial fibrillation, and she is unable to walk on the treadmill due to her musculoskeletal allergy. At present, answer diet and allow her to have lunch, plans of proceeding with the resting portion of her nuclear stress test images later this afternoon, and the pharmacologic stress portion tomorrow. To hold her Eliquis. She received a dose at 8 AM. Next dose will be due at 8 PM tonight, therefore start a heparin bridge in case invasive procedure becomes necessary. (2) Paroxysmal A-fib: Device interrogation as an outpatient yesterday. Pacemaker function and adeq uate battery reserve. Remaining longevity 11.9 years. She had recently been observed to have 9 days of atrial tachycardia/atrial fibrillation in the last 40 days, mostly clustered in follow-up of late March until April 09, 2020 presented in sinus rhythm yesterday, and remains in sinus rhythm at present.Continue oral metoprolol. 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 (4) Chronic diastolic HF (heart failure): DC IV fluids. Holding torsemide for now. History of Present Illness Attending Physician: David Giraldo MD History of Present Illness Ciara Baig is a 74 year old female seen in cardiology consultation per the request of Dr. Cox for the evaluation of chest discomfort. The patient is well-known to the undersigned as I have followed her for years on an inpatient and outpatient basis. She describes having been to an outpatient cardiology follow-up visit yesterday and feeling well at that time. Last night at approximately 10 PM while watching television she developed a pressure sensation in her chest that has waxed and waned since arriving to the hospital. Troponin has been negative x2. EKG without acute changes x2. 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 History of LAD territory OR/stent complicated by congestive heart failure postprocedure felt to be due to both ischemia and rate-related tachycardia induced cardiomyopathy at that time 4.Dyslipidemia 5.Multifactorial lower extremity edema with diastolic dysfunction and lymphedema Allergies Allergy/AdvReac Type Severity Reaction Status Date / Time cetirizine Allergy Intermediate Hallucinati Verified 04/11/20 00:52 ng hydroxyzine AdvReac Intermediate Hallucinati Verified 04/11/20 00:52 ng Home Medications Home Medications Medication Instructions Recorded Confirmed Type Eliquis 5 mg PO BID 06/18/18 04/11/20 History Lantus Solostar U-100 Insulin 20 unit SUBCUT BIDM 06/18/18 04/11/20 History atorvastatin 40 mg PO QAM 06/18/18 04/11/20 History metoprolol succinate 100 mg PO QAM 06/18/18 04/11/20 History multivitamin 1 tab PO PM 06/18/18 04/11/20 History nitroglycerin [Nitrostat] 0.4 mg SUBLINGUAL DIRECTED PRN 06/18/18 04/11/20 History oxybutynin chloride 5 mg PO BID 06/18/18 04/11/20 History torsemide 20 mg PO BID 06/18/18 04/11/20 History sacubitril-valsartan [Entresto] 1 tab PO BID 04/10/20 04/11/20 History glipizide 5 mg PO BID 04/11/20 04/11/20 History Patient History Medical History (Updated 04/11/20 @ 04:35 by Jamison Conner MD) Chronic diastolic HF (heart failure) Coronary artery disease "anterior OR 11/10/17, LVEF 20-25%, PCI LAD with ISABEL" DM type 2 (diabetes mellitus, type 2) Dyslipidemia Hx of supraventricular tachycardia Hypertension Osteoarthritis Paroxysmal A-fib on Eliquis Surgical History H/O ovarian cystectomy History of appendectomy History of cholecystectomy History of right knee joint replacement History of tonsillectomy Status post coronary artery stent placement "PCI LAD with ISABEL 11/10/17" Social History Smoking Status: Never smoker Second Hand Exposure: No; Hx Alcohol Use: Yes Hx Substance Use: No Preferred Language: Occitan Communication Ability: Effective Visual Impairment: No Limitations Human Resources Professional Required: No Beliefs That Will Affect Care: None marital status: / Current Living Situation: Alone Current Living Situation Comment: States she will be looking to move to assisted living Other Information That Helps Us Care for You: No Feels Safe at Home: Yes Safety Concerns: Feels Safe At This Time Physical Exam Physical Exam: Temp Pulse Resp BP Pulse Ox 36.5 C 74 18 124/74 96 04/11/20 07:43 04/11/20 07:43 04/11/20 07:43 04/11/20 07:43 04/11/20 07:43 Constitutional: WD/WN, vitals as above Respiratory: normal respiratory effort, lungs clear to auscultation Cardiovascular: Rate/Rhythm: regular rhythm Heart Sounds: no murmur Extremities: + edema (Chronic lower extreme edema, consistent with lymphedema) Gastrointestinal (Abdomen): normal bowel sounds, soft, nontender, no hepatosplenomegaly Neurologic: PERRL, EOMI, accommodation nl, no face palsy, no dysarthria Results & Data ([facility]) Vital Signs (Past 12 Hours) Vital Signs Temp Pulse Pulse Pulse Resp BP BP 04/11/20 07:43 36.5 C 74 18 124/74 04/11/20 03:15 36.7 C 71 20 130/59 L 04/11/20 02:57 60 18 113/58 L 04/11/20 01:30 60 16 113/47 L Pulse Ox 04/11/20 07:43 96 04/11/20 03:15 97 04/11/20 02:57 98 04/11/20 01:30 96 Laboratory Results Cardiac Enzymes 04/11/20 04/11/20 Range/Units 00:17 06:22 AST 17 (15-37) U/L Troponin I < 0.015 < 0.015 (0-0.045) ng/ml Coagulation 04/11/20 Range/Units 00:17 PT 12.4 H (9.0-12.0) Seconds APTT 25.9 (21.0-31.0) Seconds Lipids 04/11/20 Range/Units 06:22 Triglycerides 131 (0-150) mg/dl Cholesterol 81 (0-200) mg/dl HDL Cholesterol 26 mg/dl Cholesterol/HDL Ratio 3 CBC 04/11/20 Range/Units 00:17 WBC 9.45 (4.8-10.8) K/uL RBC 4.12 L (4.2-5.4) M/uL Hgb 10.6 L (12.0-16.0) g/dL Hct 35.0 L (37-47) % Plt Count 227 (130-400) K/uL Neut # (Auto) 6.07 (1.4-6.5) K/uL Lymph # (Auto) 2.64 (1.2-3.4) K/uL [place] # (Auto) 0.53 (0.11-0.59) K/uL Eos # (Auto) 0.17 (0-0.5) K/uL Baso # (Auto) 0.02 (0-0.2) K/uL Comprehensive Metabolic Panel 04/11/20 Range/Units 00:17 Sodium 142 (136-145) mmol/L Potassium 4.2 (3.5-5.1) mmol/L Chloride 106 (98-107) mmol/L Carbon Dioxide 31 (21-32) mmol/L BUN 31 H (7-18) mg/dl Creatinine 1.14 (0.6-1.2) mg/dl Glucose 117 H (70-99) mg/dl Calcium 8.4 L (8.5-10.1) mg/dl AST 17 (15-37) U/L ALT 22 (12-78) U/L Alkaline Phosphatase 78 (45-117) U/L Total Protein 6.5 (6.4-8.2) gm/dl Albumin 2.8 L (3.4-5.0) gm/dl Intake and Output 04/10/20 04/11/20 04/11/20 22:59 06:59 14:59 Other: Other Intake Source NPO Weight 129.7 kg
[2020-04-11] MEDS: PANTOprazole 40 MG TAB PO SCH (13:41)
--- NOTE | 2020-04-11 18:57 | Electrocardiogram Report ---
Test Reason : Blood Pressure : / mmHG Vent. Rate : 066 BPM Atrial Rate : 066 BPM P-R Int : 244 ms QRS Dur : 074 ms QT Int : 430 ms P-R-T Axes : 000 -15 015 degrees QTc Int : 450 ms Atrial-paced rhythm with prolonged AV conduction Low voltage QRS Abnormal ECG When compared with ECG of 20-DEC-2018 06:32, No significant change was found Confirmed by Jd Crowley ([id number]) on 04/11/2020 6:56:51 PM Referred By: REFERRED SELF Confirmed By:Nirmal Crowley
--- NOTE | 2020-04-11 19:02 | Electrocardiogram Report ---
Test Reason : Blood Pressure : / mmHG Vent. Rate : 063 BPM Atrial Rate : 063 BPM P-R Int : 268 ms QRS Dur : 076 ms QT Int : 454 ms P-R-T Axes : 000 -21 011 degrees QTc Int : 464 ms Atrial-paced rhythm with prolonged AV conduction Low voltage QRS Abnormal ECG When compared with ECG of 10-APR-2020 23:51, (unconfirmed) No significant change was found Confirmed by Jd Crowley ([id number] on 04/11/2020 7:01:32 PM Referred By: REFERRED SELF Confirmed By:Nirmal Crowley
[2020-04-11] MEDS ORDERED: Heparin IV Standard *NO* Bolus IV SCH (20:00)
[2020-04-11] MEDS ORDERED: HEPARIN SODIUM/DEXTROSE 25,000 UNITS/500 ML BAG IV SCH (20:00)
[2020-04-11] MEDS: MULTIVITAMIN TAB PO SCH (20:04)
[2020-04-12] MEDS: INSULIN ASPART 100 UNITS/ML 3 ML PEN SC SCH ×5 (00:41→21:22)
[2020-04-12] MEDS: NITROGLYCERIN SL 0.4 MG/TAB TAB SL PRN ×2 (01:02→17:57)
[2020-04-12] MEDS ORDERED: SODIUM CHLORIDE 0.9% 500 ML IV ONE (01:13)
[2020-04-12 02:07] LABS: Basophils # (auto) 0.01 K/uL (0-0.2); Basophils % (auto) 0.1 %; Eosinophils # (auto) 0.22 K/uL (0-0.5); Eosinophils % (auto) 2.6 %; Hematocrit (blood only) 33.7 % (37-47); Hemoglobin 9.9 g/dL (12.0-16.0); Immature Granulocytes # (auto) 0.01 K/uL (0.00-0.02); Immature Granulocytes % (auto) 0.1 %; Lymphocytes # (auto) 2.75 K/uL (1.2-3.4); Lymphocytes % (auto) 31.9 %; Mean Corpuscular Hemoglobin 25.1 pg (25-34); Mean Corpuscular Hgb Conc 29.4 g/dL (32-36); Mean Corpuscular Volume 85.5 fL (80-100); Mean Platelet Volume 9.8 fL (7.4-10.4); Monocytes % (auto) 4.6 %; Neutrophils # (auto) 5.23 K/uL (1.4-6.5); Neutrophils % (auto) 60.7 %; Platelet Count 215 K/uL (130-400); RDW Standard Deviation 47.5 fL (36.4-46.3); Red Blood Count 3.94 M/uL (4.2-5.4); White Blood Count 8.62 K/uL (4.8-10.8)
[2020-04-12 02:24] LABS: Blood Urea Nitrogen 24 mg/dl (7-18); Calcium 8.1 mg/dl (8.5-10.1); Carbon Dioxide 27 mmol/L (21-32); Chloride 112 mmol/L (98-107); Creatinine Clr Calc Pharmacy 65.7 ml/min; Est GFR (African American) 64.6; Est GFR (Non-African American) 55.7; Glucose 108 mg/dl (70-99); Magnesium 1.9 mg/dl (1.8-2.4); Potassium 4.5 mmol/L (3.5-5.1); Sodium 143 mmol/L (136-145)
[2020-04-12 02:28] LABS: Partial Thromboplastin Ratio 2.2
[2020-04-12 02:29] LABS: Troponin I < 0.015 ng/ml (0-0.045)
[2020-04-12 02:40] LABS: Partial Thromboplastin Time 60.1 Seconds (21.0-31.0)
[2020-04-12] MEDS ORDERED: REGADENOSON 0.4 MG/5 ML SYR IV ONE (08:05)
[2020-04-12] MEDS: INSULIN GLARGINE SOLOSTAR 100 UNITS/ML 3 ML PEN SQ SCH ×2 (09:00→18:01)
--- NOTE | 2020-04-12 10:42 | Hospitalist Progress Note ---
Date of Service April 12, 2020 Assessment & Plan (1) Chest pain: History of CAD status post stent Rule out ACS Chronic diastolic heart failure (EF 60 to 65%, TTE 2018), at baseline SSS status post PPM on Eliquis, paced rhythm hypertension, stable hyperlipidemia on statin Rx DM 2 insulin requiring, -outpatient hemoglobin A1c of 8.03 Dec 2019 Current A1c 6.6%, improved ISS BG goal [id number] past tobacco abuse OBS - will admit inpt as further cardiac testing required PCU Aspirin, beta-iman, statin Rx Trend troponin - negative TTE ordered by cardiology for further eval Cardiology consulted Nuclear stress test this AM (04/12/20) normal Pt continues to have episodes of chest pressure Imdur started by cardiology, IV heparin transition to Eliquis In the past attributed symptoms to GERD, will re-start pt on PPI for now DVT prophylaxis. Eliquis if okay with cardiology, now pt on heparin Full code Admission and Anticipated Discharge Date Admission Date: April 11, 2020 Subjective Pt had recurrent chest pressure last night EKG and troponin performed at that time were within normal limits. Sinus rhythm noted on telemetry. Stress test this AM normal. Pt was started on Imdur for possible microvascular disease. Currently she is sitting up in chair in NAD. At this moment denies any chest pain, shortness of breath, diaphoresis. Review of Systems Review of Systems: All systems reviewed & are unremarkable except as noted in HPI & below Constitutional: no fever and no chills Respiratory: no cough and no dyspnea Cardiovascular: no chest pain and no palpitations Gastrointestinal: no abdominal pain, no nausea and no vomiting Physical Exam Physical Exam: GENERAL: Comfortable, morbidly obese, pleasant, no respiratory distress SKIN: Normal color, warm HEENT: NC/AT, Bespectacled, pink palpebral conjunctivae NECK : Supple, short neck, no tenderness CHEST : CTAB, no wheezing, rhonchi, crackles HEART : RRR, no obvious murmurs ABDOMEN: + bowel sounds, obese, some distention, nontender EXTREMITIES : Chronic lymphedematous LE swelling, no LE tenderness, venous stasis changes noted NEUROLOGIC : Coherent, no facial asymmetry, speech fluent, moves all extremities spontaneously Results & Data Results & Data ([facility]) Vital Signs (Past 12 Hours) Vital Signs Temp Pulse Resp BP BP Pulse Ox 04/12/20 07:52 37.0 C 81 18 102/68 96 04/12/20 03:24 36.6 C 70 20 94/58 L 98 04/12/20 01:09 91/58 L 04/12/20 00:10 36.5 C 69 16 109/63 99 Laboratory Results 04/12/20 04/12/20 04/12/20 Range/Units 05:51 01:56 01:56 WBC (4.8-10.8) K/uL RBC (4.2-5.4) M/uL Hgb (12.0-16.0) g/dL Hct (37-47) % MCV (80-100) fL MCH (25-34) pg MCHC (32-36) g/dL RDW Std Deviation (36.4-46.3) fL RDW Coeff of [place] (11.5-14.5) % Plt Count (130-400) K/uL MPV (7.4-10.4) fL Immature Gran % (Auto) % Neut % (Auto) % Lymph % (Auto) % [place] % (Auto) % Eos % (Auto) % Baso % (Auto) % Neut # (Auto) (1.4-6.5) K/uL Lymph # (Auto) (1.2-3.4) K/uL [place] # (Auto) (0.11-0.59) K/uL Eos # (Auto) (0-0.5) K/uL Baso # (Auto) (0-0.2) K/uL Immature Gran # (Auto) (0.00-0.02) K/uL APTT (21.0-31.0) Seconds PTT Ratio Sodium 143 (136-145) mmol/L Potassium 4.5 (3.5-5.1) mmol/L Chloride 112 H (98-107) mmol/L Carbon Dioxide 27 (21-32) mmol/L Anion Gap 4.0 (3-11) BUN 24 H (7-18) mg/dl Creatinine 0.99 (0.6-1.2) mg/dl Est Cr Clr Drug Dosing 65.7 ml/min Est GFR ( Amer) 64.6 Est GFR (Non-Af Amer) 55.7 BUN/Creatinine Ratio 24.0 H (10-20) Glucose 108 H (70-99) mg/dl POC Glucose 112 H (70-99) mg/dl Lactate 0.9 (0.4-2.0) mmol/L Calcium 8.1 L (8.5-10.1) mg/dl Phosphorus 3.0 (2.5-4.9) mg/dl Magnesium 1.9 (1.8-2.4) mg/dl Troponin I < 0.015 (0-0.045) ng/ml 04/12/20 04/12/20 04/12/20 Range/Units 01:56 01:56 00:13 WBC 8.62 (4.8-10.8) K/uL RBC 3.94 L (4.2-5.4) M/uL Hgb 9.9 L (12.0-16.0) g/dL Hct 33.7 L (37-47) % MCV 85.5 (80-100) fL MCH 25.1 (25-34) pg MCHC 29.4 L (32-36) g/dL RDW Std Deviation 47.5 H (36.4-46.3) fL RDW Coeff of [place] 15.0 H (11.5-14.5) % Plt Count 215 (130-400) K/uL MPV 9.8 (7.4-10.4) fL Immature Gran % (Auto) 0.1 % Neut % (Auto) 60.7 % Lymph % (Auto) 31.9 % [place] % (Auto) 4.6 % Eos % (Auto) 2.6 % Baso % (Auto) 0.1 % Neut # (Auto) 5.23 (1.4-6.5) K/uL Lymph # (Auto) 2.75 (1.2-3.4) K/uL [place] # (Auto) 0.40 (0.11-0.59) K/uL Eos # (Auto) 0.22 (0-0.5) K/uL Baso # (Auto) 0.01 (0-0.2) K/uL Immature Gran # (Auto) 0.01 (0.00-0.02) K/uL APTT 60.1 H* (21.0-31.0) Seconds PTT Ratio 2.2 Sodium (136-145) mmol/L Potassium (3.5-5.1) mmol/L Chloride (98-107) mmol/L Carbon Dioxide (21-32) mmol/L Anion Gap (3-11) BUN (7-18) mg/dl Creatinine (0.6-1.2) mg/dl Est Cr Clr Drug Dosing ml/min Est GFR ( Amer) Est GFR (Non-Af Amer) BUN/Creatinine Ratio (10-20) Glucose (70-99) mg/dl POC Glucose 111 H (70-99) mg/dl Lactate (0.4-2.0) mmol/L Calcium (8.5-10.1) mg/dl Phosphorus (2.5-4.9) mg/dl Magnesium (1.8-2.4) mg/dl Troponin I (0-0.045) ng/ml 04/11/20 04/11/20 04/11/20 Range/Units 16:50 12:29 12:01 WBC (4.8-10.8) K/uL RBC (4.2-5.4) M/uL Hgb (12.0-16.0) g/dL Hct (37-47) % MCV (80-100) fL MCH (25-34) pg MCHC (32-36) g/dL RDW Std Deviation (36.4-46.3) fL RDW Coeff of [place] (11.5-14.5) % Plt Count (130-400) K/uL MPV (7.4-10.4) fL Immature Gran % (Auto) % Neut % (Auto) % Lymph % (Auto) % [place] % (Auto) % Eos % (Auto) % Baso % (Auto) % Neut # (Auto) (1.4-6.5) K/uL Lymph # (Auto) (1.2-3.4) K/uL [place] # (Auto) (0.11-0.59) K/uL Eos # (Auto) (0-0.5) K/uL Baso # (Auto) (0-0.2) K/uL Immature Gran # (Auto) (0.00-0.02) K/uL APTT (21.0-31.0) Seconds PTT Ratio Sodium (136-145) mmol/L Potassium (3.5-5.1) mmol/L Chloride (98-107) mmol/L Carbon Dioxide (21-32) mmol/L Anion Gap (3-11) BUN (7-18) mg/dl Creatinine (0.6-1.2) mg/dl Est Cr Clr Drug Dosing ml/min Est GFR ( Amer) Est GFR (Non-Af Amer) BUN/Creatinine Ratio (10-20) Glucose (70-99) mg/dl POC Glucose 92 76 (70-99) mg/dl Lactate (0.4-2.0) mmol/L Calcium (8.5-10.1) mg/dl Phosphorus (2.5-4.9) mg/dl Magnesium (1.8-2.4) mg/dl Troponin I < 0.015 (0-0.045) ng/ml Medications Administered Current Inpatient Medications Acetaminophen (Acetaminophen 325 Mg Tab) 650 mg PO Q4H PRN PRN Reason: Pain or Fever Stop: 05/11/20 03:07 Atorvastatin Calcium (Atorvastatin 40 Mg Tab) 40 mg PO QAM [facility] Stop: 05/11/20 08:59 Last Admin: 04/11/20 08:16 Dose: 40 mg Documented by: Dextrose (Dextrose 50% 50 Ml Syringe) 25 - 50 ml IV UD PRN; Protocol PRN Reason: Hypoglycemia Protocol Stop: 05/11/20 03:07 Glucagon (Glucagon For Inj 1 Mg Vial) 1 mg SQ UD PRN; Protocol PRN Reason: Hypoglycemia Protocol Stop: 05/11/20 03:07 Glucose (Glucose 10 Tabs/Tube) 4 - 8 tabs PO UD PRN; Protocol PRN Reason: Hypoglycemia Protocol Stop: 05/11/20 03:07 Glucose (Glucose 40% Gel 15 Gm Tube) 15 - 30 gm PO UD PRN; Protocol PRN Reason: Hypoglycemia Protocol Stop: 05/11/20 03:07 Lorazepam (Ativan) 0.25 mg in 0.5 mls @ 0.5 mls/min IV Q4H PRN PRN Reason: Anxiety Stop: 05/11/20 03:07 Heparin Sodium/Dextrose (Heparin Sodium/Dextrose) 25,000 units in 500 mls @ 30 mls/hr IV .[id number] KAYLA; Protocol Stop: 05/11/20 19:59 Last Titration: 04/12/20 07:12 Dose: 1,500 units/hr, 30 mls/hr Documented by: Insulin Aspart (Insulin Aspart 100 Units/Ml 3 Ml Pen) 0 units SC Q6 [facility] Stop: 05/11/20 05:59 Last Admin: 04/12/20 05:56 Dose: Not Given Documented by: Insulin Glargine (Insulin Glargine Solostar 100 Units/Ml 3 Ml Pen) 5 units SQ BIDM [facility] Stop: 05/11/20 07:59 Last Admin: 04/11/20 15:59 Dose: Not Given Documented by: Metoprolol Succinate (Metoprolol Succ 50mg Ext Rel Tab) 100 mg PO QAM [facility] Stop: 05/11/20 08:59 Last Admin: 04/11/20 08:16 Dose: 100 mg Documented by: Miscellaneous (Carbohydrates For Hypoglycemia ) 15 - 30 gm PO UD PRN PRN Reason: Hypoglycemia Protocol Stop: 05/11/20 03:07 Morphine Sulfate (Morphine Sulfate 2 Mg/Ml Carp) 2 mg IV Q3H PRN PRN Reason: Pain Stop: 04/25/20 03:07 Multivitamins (Multivitamin Tab) 1 tab PO PM [facility] Stop: 05/11/20 20:59 Last Admin: 04/11/20 20:04 Dose: 1 tab Documented by: Nitroglycerin (Nitroglycerin Sl 0.4 Mg/Tab Tab) 0.4 mg SL UD PRN PRN Reason: Chest Pain Stop: 05/11/20 03:07 Last Admin: 04/12/20 01:02 Dose: 0.4 mg Documented by: Oxybutynin Chloride (Oxybutynin Chloride 5 Mg Tab) 5 mg PO BID [facility] Stop: 05/11/20 08:59 Last Admin: 04/11/20 20:04 Dose: 5 mg Documented by: Pantoprazole Sodium (Pantoprazole 40 Mg Tab) 40 mg PO QAM [facility] Stop: 04/14/20 09:01 Last Admin: 04/11/20 13:41 Dose: 40 mg Documented by: Sacubitril/Valsartan (Sacubitril-Valsartan 24-26 Mg Tab) 1 tab PO BID [facility] Stop: 05/11/20 08:59 Last Admin: 04/11/20 20:05 Dose: 1 tab Documented by: Tramadol HCl (Tramadol Hcl 50 Mg Tablet) 25 - 50 mg PO Q4H PRN PRN Reason: Pain Stop: 05/11/20 03:07
[2020-04-12] MEDS ORDERED: APIXABAN 5 MG TABLET PO STA (11:11)
--- NOTE | 2020-04-12 11:21 | Cardiology Progress Note ---
Date of Service April 12, 2020 Assessment & Plan (1) Chest pain: Description of her episodes is concerning for angina, however, have occurred at rest with normal EKGs and normal serial troponin levels. Has has similar episodes in the past when high grade LAD lesion noted, and with cath findings of patent coronaries. Nuclear stress this am was normal. Plan to advance diet, increase activity to see if symptoms come on with exertion. Repeat EKG in am. Add imdur 15 mg daily, possible microvascular disease. (2) Chronic diastolic HF (heart failure): volume status stable. (3) Atrial fibrillation with RVR: In SR. Continue metoprolol. Transitin back to [facility]. (4) Tachy-barbra syndrome: Recent pacemaker check as outpt earlier this week with normal function. -Dr Montiel rounding on 04/13 Admission and Anticipated Discharge Date Admission Date: April 11, 2020 Adolfo Urbina had recurrent chest pressure last night just after midnight. EKG and troponin performed at that time were within normal limits. SR noted on telemetry. Review of Systems Review of Systems: All systems reviewed & are unremarkable except as noted in HPI & below Physical Exam Physical Exam: Temp Pulse Resp BP Pulse Ox 37.0 C 81 18 102/68 96 04/12/20 07:52 04/12/20 07:52 04/12/20 07:52 04/12/20 07:52 04/12/20 07:52 Constitutional: WD/WN, vitals as above Cardiovascular: RRR, no murmur, no edema Gastrointestinal (Abdomen): normal bowel sounds, soft, nontender, no hepatosplenomegaly Neurologic: PERRL, EOMI, accommodation nl, no face palsy, no dysarthria Results & Data ([facility]) Vital Signs (Past 12 Hours) Vital Signs Temp Pulse Resp BP BP Pulse Ox 04/12/20 07:52 37.0 C 81 18 102/68 96 04/12/20 03:24 36.6 C 70 20 94/58 L 98 04/12/20 01:09 91/58 L 04/12/20 00:10 36.5 C 69 16 109/63 99 Laboratory Results Cardiac Enzymes 04/11/20 04/12/20 Range/Units 12:29 01:56 Troponin I < 0.015 < 0.015 (0-0.045) ng/ml Coagulation 04/12/20 Range/Units 01:56 APTT 60.1 H* (21.0-31.0) Seconds CBC 04/12/20 Range/Units 01:56 WBC 8.62 (4.8-10.8) K/uL RBC 3.94 L (4.2-5.4) M/uL Hgb 9.9 L (12.0-16.0) g/dL Hct 33.7 L (37-47) % Plt Count 215 (130-400) K/uL Neut # (Auto) 5.23 (1.4-6.5) K/uL Lymph # (Auto) 2.75 (1.2-3.4) K/uL [place] # (Auto) 0.40 (0.11-0.59) K/uL Eos # (Auto) 0.22 (0-0.5) K/uL Baso # (Auto) 0.01 (0-0.2) K/uL Comprehensive Metabolic Panel 04/12/20 Range/Units 01:56 Sodium 143 (136-145) mmol/L Potassium 4.5 (3.5-5.1) mmol/L Chloride 112 H (98-107) mmol/L Carbon Dioxide 27 (21-32) mmol/L BUN 24 H (7-18) mg/dl Creatinine 0.99 (0.6-1.2) mg/dl Glucose 108 H (70-99) mg/dl Calcium 8.1 L (8.5-10.1) mg/dl Intake and Output 04/11/20 04/12/20 04/12/20 22:59 06:59 14:59 Intake Total 440 / 1674.5 718.5 / 1674.5 119 / 119 Output Total Balance 440 / 1673.5 717.5 / 1673.5 119 / 119 Intake: IV 718.5 / 1114.5 119 / 119 HEPARIN SODIUM/DEXTROSE 25,000 218.5 / 218.5 119 / 119 units In 500 ml @ 1,500 UNITS/ HR 30 mls/hr IV .[id number] [facility] Rx #:[id number] Nss 500 ml @ 500 mls/hr IV .Q1H 500 / 500 ONE Rx#:[id number] Oral 440 / 560 Output: # Bowel Movements Other: # Unmeasured Voids 1 1 Weight 128.3 kg
[2020-04-12] MEDS: PANTOprazole 40 MG TAB PO SCH (12:05)
[2020-04-12] MEDS: OXYBUTYNIN CHLORIDE 5 MG TAB PO SCH ×2 (12:05→21:16)
[2020-04-12] MEDS: SACUBITRIL-VALSARTAN 24-26 MG TAB PO SCH ×2 (12:05→21:16)
[2020-04-12] MEDS: ATORVASTATIN 40 MG TAB PO SCH (12:05)
[2020-04-12] MEDS: METOPROLOL SUCC 50MG EXT REL TAB PO SCH (12:06)
--- NOTE | 2020-04-12 12:41 | Electrocardiogram Report ---
Test Reason : Blood Pressure : / mmHG Vent. Rate : 061 BPM Atrial Rate : 058 BPM P-R Int : 270 ms QRS Dur : 070 ms QT Int : 444 ms P-R-T Axes : 000 -18 008 degrees QTc Int : 446 ms Atrial-paced rhythm with prolonged AV conduction Low voltage QRS Nonspecific ST abnormality Abnormal ECG When compared with ECG of 11-APR-2020 09:17, No significant change was found Confirmed by Jd Crowley ([id number]) on 04/12/2020 12:41:09 PM Referred By: REFERRED SELF Confirmed By:Nirmal Crowley
[2020-04-12] MEDS: ISOSORBIDE MONO EXTENDED REL 30 MG TABCR PO SCH (12:58)
--- NOTE | 2020-04-12 13:36 | Myocardial Perfusion Study ---
Date of Service April 12, 2020 Myocardial Perfusion Study k Myocardial Perfusion Study Report [place] Act 112: Negative Procedure: 1. Myocardial perfusion study performed in multiple views/images 2. Lexiscan pharmacologic stress ECG Indications: 1. Chest discomfort 2. History of LAD Ordering provider: Dr Vaca Procedural details: A two day rest / stress protocol was performed. The pharmacologic stress ECG portion of the test was supervised in person by the undersigned interpreting. For the rest portion of the study, 24 mCi technetium 99m Cardiolite was injected intravenously at 17:00 on 04/11/2020. 1 hour following the injection, imaging of the heart was performed in multiple projections. For the stress portion of the study, Lexiscan 0.4 mg was intravenously administered followed by a saline flush. This was followed by 23.7 mCi of onel hnetium 99m Cardiolite, injected at 9:00 am on 04/12/2020. 30 minutes following the injection, imaging of the heart was performed in the same projections. Lexiscan stress ECG: Resting ECG demonstrated: Sinus rhythm at 66 bpm, with normal ST segments. Maximum heart rate: 82 bpm Maximal, age-predicted heart rate: 56% Resting blood pressure: 117/57 mmHg Maximum blood pressure: 126/[address] changes: none Arrhythmia: Occasional isolated premature ventricular contractions were noted on the stress EKG. Symptoms: Chest tightness was reported with the administration of Lexiscan which resolved early in the post stress recovery interval Findings: Rotating raw imaging demonstrated no significant lung uptake. There is no significant motion artifact. Heart size appeared normal. Myocardial perfusion demonstrated homogenous tracer uptake on both the stress and rest images. Ejection fraction: 78% Wall motion: normal. No significant transient ischemic dilation. Impression: Normal Lexiscan nuclear stress test without evidence of ischemia or infarction. Calculated left ventricular ejection fraction by gated SPECT= 78%, normal.
[2020-04-12] MEDS ORDERED: ALUMINUM/MAGNESIUM SUSP 30 ML UDC PO STA (18:17)
[2020-04-12] MEDS ORDERED: Nursing to Pharmacy Communication SCH (19:30)
[2020-04-12] MEDS: MULTIVITAMIN TAB PO SCH (21:16)
[2020-04-12] MEDS ORDERED: APIXABAN 5 MG TABLET PO SCH (23:00)
[2020-04-13 06:59] LABS: Partial Thromboplastin Ratio 1.1; Partial Thromboplastin Time 30.2 Seconds (21.0-31.0)
[2020-04-13 07:35] LABS: BUN Creatinine Ratio 19.8 (10-20); Calcium 8.6 mg/dl (8.5-10.1); Creatinine Clr Calc Pharmacy 76.4 ml/min; Est GFR (African American) 77.7; Potassium 5.4 mmol/L (3.5-5.1)
[2020-04-13] MEDS: INSULIN ASPART 100 UNITS/ML 3 ML PEN SC SCH ×2 (08:08→11:38)
[2020-04-13] MEDS: INSULIN GLARGINE SOLOSTAR 100 UNITS/ML 3 ML PEN SQ SCH (08:09)
[2020-04-13] MEDS: SACUBITRIL-VALSARTAN 24-26 MG TAB PO SCH (08:10)
[2020-04-13] MEDS: PANTOprazole 40 MG TAB PO SCH (08:10)
[2020-04-13] MEDS: ISOSORBIDE MONO EXTENDED REL 30 MG TABCR PO SCH (08:10)
[2020-04-13] MEDS: ATORVASTATIN 40 MG TAB PO SCH (08:10)
[2020-04-13] MEDS: METOPROLOL SUCC 50MG EXT REL TAB PO SCH (08:10)
[2020-04-13] MEDS: OXYBUTYNIN CHLORIDE 5 MG TAB PO SCH (08:11)
[2020-04-13] MEDS ORDERED: SODIUM POLYSTYRENE SULFONATE 15G/60ML SUSP PO STA (08:58)
[2020-04-13] MEDS ORDERED: APIXABAN 5 MG TABLET PO SCH (09:00)
--- NOTE | 2020-04-13 09:01 | Hospitalist Progress Note ---
Date of Service April 13, 2020 Assessment & Plan (1) Chest pain: History of CAD status post stent Rule out ACS Chronic diastolic heart failure (EF 60 to 65%, TTE 2018), at baseline SSS status post PPM on Eliquis, paced rhythm Hypertension, stable Hyperlipidemia on statin Rx Hx of past tobacco abuse Cardiology consulted Aspirin, beta-iman, statin Rx Trend troponin - negative TTE ordered by cardiology for further eval Cardiology consulted Nuclear stress test this AM (04/12/20) normal Pt continued to have episodes of chest pressure while inpt, however no EKG changes, troponin stayed negative, and stress test normal Imdur started by cardiology for possible microvascular disease, IV heparin transitioned to Eliquis In the past attributed symptoms to GERD, re-started pt on PPI for now Per cardiology, ok to discharge home, follow-up with them in 1 to 2 weeks. DM 2 insulin requiring, -outpatient hemoglobin A1c of 8.03 Dec 2019 Current A1c 6.6%, improved ISS BG goal [id number] DVT prophylaxis. Eliquis (was on heparin) Full code Admission and Anticipated Discharge Date Admission Date: April 11, 2020 Subjective Patient is sitting up in bed, in no acute distress. She says that she feels much better now. Denies any chest pain, shortness of breath, diaphoresis, dizziness or lightheadedness. Also denies any fevers, chills, abdominal pain, nausea or vomiting. She is inquiring by going home. Review of Systems Review of Systems: All systems reviewed & are unremarkable except as noted in HPI & below Constitutional: no fever and no chills Respiratory: no cough and no dyspnea Cardiovascular: no chest pain and no palpitations Gastrointestinal: no abdominal pain, no nausea and no vomiting Physical Exam Physical Exam: GENERAL: Comfortable, morbidly obese, pleasant, no respiratory distress SKIN: Normal color, warm HEENT: NC/AT, Bespectacled, pink palpebral conjunctivae NECK : Supple, short neck, no tenderness CHEST : CTAB, no wheezing, rhonchi, crackles HEART : RRR, no obvious murmurs ABDOMEN: + bowel sounds, obese, some distention, nontender EXTREMITIES : Chronic lymphedematous LE swelling, no LE tenderness, venous stasis changes noted NEUROLOGIC : Coherent, no facial asymmetry, speech fluent, moves all extremities spontaneously Results & Data Results & Data ([facility]) Vital Signs (Past 12 Hours) Vital Signs Temp Pulse Pulse Resp BP BP Pulse Ox 04/13/20 08:00 36.8 C 62 18 118/56 L 96 04/13/20 07:07 64 04/13/20 04:34 37.1 C 60 20 127/61 97 04/12/20 23:53 37.2 C 64 16 105/52 L 96 04/12/20 23:14 60 Laboratory Results 04/13/20 04/13/20 04/13/20 Range/Units 07:16 06:01 06:01 APTT 30.2 (21.0-31.0) Seconds PTT Ratio 1.1 Sodium 141 (136-145) mmol/L Potassium 5.4 H D (3.5-5.1) mmol/L Chloride 111 H (98-107) mmol/L Carbon Dioxide 26 (21-32) mmol/L Anion Gap 4.0 (3-11) BUN 17 (7-18) mg/dl Creatinine 0.85 (0.6-1.2) mg/dl Est Cr Clr Drug Dosing 76.4 ml/min Est GFR ( Amer) 77.7 Est GFR (Non-Af Amer) 67.0 BUN/Creatinine Ratio 19.8 (10-20) Glucose 113 H (70-99) mg/dl POC Glucose 116 H (70-99) mg/dl Calcium 8.6 (8.5-10.1) mg/dl 04/12/20 04/12/20 04/12/20 Range/Units 21:10 16:20 12:05 APTT (21.0-31.0) Seconds PTT Ratio Sodium (136-145) mmol/L Potassium (3.5-5.1) mmol/L Chloride (98-107) mmol/L Carbon Dioxide (21-32) mmol/L Anion Gap (3-11) BUN (7-18) mg/dl Creatinine (0.6-1.2) mg/dl Est Cr Clr Drug Dosing ml/min Est GFR ( Amer) Est GFR (Non-Af Amer) BUN/Creatinine Ratio (10-20) Glucose (70-99) mg/dl POC Glucose 96 92 98 (70-99) mg/dl Calcium (8.5-10.1) mg/dl Medications Administered Current Inpatient Medications Acetaminophen (Acetaminophen 325 Mg Tab) 650 mg PO Q4H PRN PRN Reason: Pain or Fever Stop: 05/11/20 03:07 Apixaban (Apixaban 5 Mg Tablet) 5 mg PO BID [facility] Stop: 05/13/20 08:59 Last Admin: 04/13/20 08:10 Dose: 5 mg Documented by: Atorvastatin Calcium (Atorvastatin 40 Mg Tab) 40 mg PO [facility] Stop: 05/11/20 08:59 Last Admin: 04/13/20 08:10 Dose: 40 mg Documented by: Dextrose (Dextrose 50% 50 Ml Syringe) 25 - 50 ml IV UD PRN; Protocol PRN Reason: Hypoglycemia Protocol Stop: 05/11/20 03:07 Glucagon (Glucagon For Inj 1 Mg Vial) 1 mg SQ UD PRN; Protocol PRN Reason: Hypoglycemia Protocol Stop: 05/11/20 03:07 Glucose (Glucose 10 Tabs/Tube) 4 - 8 tabs PO UD PRN; Protocol PRN Reason: Hypoglycemia Protocol Stop: 05/11/20 03:07 Glucose (Glucose 40% Gel 15 Gm Tube) 15 - 30 gm PO UD PRN; Protocol PRN Reason: Hypoglycemia Protocol Stop: 05/11/20 03:07 Lorazepam (Ativan) 0.25 mg in 0.5 mls @ 0.5 mls/min IV Q4H PRN PRN Reason: Anxiety Stop: 05/11/20 03:07 Insulin Aspart (Insulin Aspart 100 Units/Ml 3 Ml Pen) 0 units SC ACHS [facility] Stop: 05/11/20 05:59 Last Admin: 04/13/20 08:08 Dose: Not Given Documented by: Insulin Glargine (Insulin Glargine Solostar 100 Units/Ml 3 Ml Pen) 5 units SQ BIDM [facility] Stop: 05/11/20 07:59 Last Admin: 04/13/20 08:09 Dose: 5 units Documented by: Isosorbide Mononitrate (Isosorbide [place] Extended Rel 30 Mg Tabcr) 15 mg PO [facility]; Protocol Stop: 05/12/20 11:14 Last Admin: 04/13/20 08:10 Dose: 15 mg Documented by: Metoprolol Succinate (Metoprolol Succ 50mg Ext Rel Tab) 100 mg PO [facility] Stop: 05/11/20 08:59 Last Admin: 04/13/20 08:10 Dose: 100 mg Documented by: Miscellaneous (Carbohydrates For Hypoglycemia ) 15 - 30 gm PO UD PRN PRN Reason: Hypoglycemia Protocol Stop: 05/11/20 03:07 Morphine Sulfate (Morphine Sulfate 2 Mg/Ml Carp) 2 mg IV Q3H PRN PRN Reason: Pain Stop: 04/25/20 03:07 Multivitamins (Multivitamin Tab) 1 tab PO PM [facility] Stop: 05/11/20 20:59 Last Admin: 04/12/20 21:16 Dose: 1 tab Documented by: Nitroglycerin (Nitroglycerin Sl 0.4 Mg/Tab Tab) 0.4 mg SL UD PRN PRN Reason: Chest Pain Stop: 05/11/20 03:07 Last Admin: 04/12/20 17:57 Dose: 0.4 mg Documented by: Oxybutynin Chloride (Oxybutynin Chloride 5 Mg Tab) 5 mg PO BID [facility] Stop: 05/11/20 08:59 Last Admin: 04/13/20 08:11 Dose: 5 mg Documented by: Pantoprazole Sodium (Pantoprazole 40 Mg Tab) 40 mg PO QAM [facility] Stop: 04/14/20 09:01 Last Admin: 04/13/20 08:10 Dose: 40 mg Documented by: Sacubitril/Valsartan (Sacubitril-Valsartan 24-26 Mg Tab) 1 tab PO BID [facility] Stop: 05/11/20 08:59 Last Admin: 04/13/20 08:10 Dose: 1 tab Documented by: Sodium Polystyrene Sulfonate (Sodium Polystyrene Sulfonate 15g/60ml Susp) 15 gm PO NOW [facility] Stop: 04/13/20 08:59 Tramadol HCl (Tramadol Hcl 50 Mg Tablet) 25 - 50 mg PO Q4H PRN PRN Reason: Pain Stop: 05/11/20 03:07 Last Admin: 04/12/20 18:28 Dose: 25 mg Documented by:
--- NOTE | 2020-04-13 09:41 | Electrocardiogram Report ---
Test Reason : Blood Pressure : / mmHG Vent. Rate : 063 BPM Atrial Rate : 063 BPM P-R Int : 270 ms QRS Dur : 084 ms QT Int : 446 ms P-R-T Axes : 000 -19 011 degrees QTc Int : 456 ms Atrial-paced rhythm with prolonged AV conduction Low voltage QRS Abnormal ECG When compared with ECG of 12-APR-2020 00:55, No significant change was found Confirmed by Anish Mcguire ([id number]) on 04/13/2020 9:41:00 AM Referred By: REFERRED SELF Confirmed By:Anish Mcguire
--- NOTE | 2020-04-13 10:26 | Cardiology Progress Note ---
Date of Service April 13, 2020 Assessment & Plan (1) Chest pain: Normal Lexiscan nuclear stress test 04/13/2020. Patient without recurrent chest discomfort overnight with addition of low-dose long-acting nitrates. Repeat ECG demonstrates atrial paced rhythm without ischemic changes. Ap propriate use of sublingual nitroglycerin reviewed. No further inpatient cardiac testing or intervention at this time. Outpatient cardiology follow-up scheduled in 1 to 2 weeks. (2) Chronic diastolic HF (heart failure): Patient appears compensated/euvolemic. (3) Atrial fibrillation with RVR: Remains in sinus rhythm on telemetry. Continue metoprolol and Eliquis. (4) Tachy-barbra syndrome: Admission and Anticipated Discharge Date Admission Date: April 11, 2020 Subjective Patient seen and examined at the bedside. Denies chest pain or unusual shortness of breath this morning. No recurrent atrial fibrillation on telemetry. Denies orthopnea, or PND. Chronic lower extremity edema unchanged. Review of Systems Review of Systems: All systems reviewed & are unremarkable except as noted in HPI & below Physical Exam Constitutional: well developed, well nourished and + obese Respiratory: normal respiratory effort, lungs clear to auscultation Auscultation: no crackles, no rales, no rhonchi and no wheezes Cardiovascular: Rate/Rhythm: regular rate and regular rhythm Heart Sounds: normal S1 and normal S2; no murmur Vessels: no JVD Extremities: + edema (1+ bilateral pedal edema) Gastrointestinal (Abdomen): Inspection/Auscultation: abdomen normal to inspection and normal bowel sounds; abdomen not distended Percussion/Palpation: abdomen nontender Skin: no rashes, warm and dry Neurologic: moves all extremities; no focal motor deficits Speech / Cogn ition: normal speech Psychiatric: A+Ox3, euthymic affect Results & Data ([facility]) Vital Signs (Past 12 Hours) Vital Signs Temp Pulse Pulse Resp BP BP Pulse Ox 04/13/20 08:00 36.8 C 62 18 118/56 L 96 04/13/20 07:07 64 04/13/20 04:34 37.1 C 60 20 127/61 97 04/12/20 23:53 37.2 C 64 16 105/52 L 96 04/12/20 23:14 60
--- NOTE | 2020-04-13 10:26 | Electrocardiogram Report ---
Test Reason : Blood Pressure : / mmHG Vent. Rate : 063 BPM Atrial Rate : 063 BPM P-R Int : 176 ms QRS Dur : 076 ms QT Int : 428 ms P-R-T Axes : 088 -12 054 degrees QTc Int : 437 ms Atrial-paced rhythm Low voltage QRS Abnormal ECG When compared with ECG of 12-APR-2020 17:56, (unconfirmed) No significant change was found Confirmed by Anish Mcguire ([id number]) on 04/13/2020 10:26:35 AM Referred By: REFERRED SELF Confirmed By:Anish Mcguire
--- NOTE | 2020-04-13 13:45 | Discharge Summary ---
Date of Service April 13, 2020 Admission HPI Per Admitting Provider History obtained from patient and records. Medical history significant for chronic diastolic heart failure (EF 60 to 65%, TTE 2019), SSS status post PPM on Eliquis, CAD status post stent, hypertension, hyperlipidemia, DM 2 insulin requiring, past tobacco abuse. Last confinement November 2018 for atypical chest pain. Patient seen at [facility] Cardiology office outpatient yesterday for routine follow-up visit. Appropriate device function on interrogation. Home beta-iman dose adjusted as per note. Patient was watching television at home last night when she experienced substernal heaviness described as heavy burning different from heartburn and without radiation, with some shortness of breath. No cough symptoms. No prior episodes. No unusual weight gain/usual leg swelling at home as per patient.. Chest pain relieved by Fentanyl administration at the ER. 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 Admission Exam Per Admitting Provider GENERAL: Comfortable, morbidly obese, pleasant, no respiratory distress SKIN: Normal color, warm HEENT: Bespectacled, pink palpebral conjunctivae, no ptosis, moist buccal mucosa NECK : Supple, short neck, no tenderness CHEST : CTA, no tenderness HEART : RRR, no obvious murmurs ABDOMEN: Some distention, nontender EXTREMITIES : Chronic lymphedematous LE swelling, no LE tenderness, no other conspicuous deformities noted NEUROLOGIC : Coherent, no facial asymmetry, no other gross focality Principal Diagnosis Atypical chest pain Discharge Exam GENERAL: Comfortable, morbidly obese, pleasant, no respiratory distress SKIN: Normal color, warm HEENT: NC/AT, Bespectacled, pink palpebral conjunctivae NECK : Supple, short neck, no tenderness CHEST : CTAB, no wheezing, rhonchi, crackles HEART : RRR, no obvious murmurs ABDOMEN: + bowel sounds, obese, some distention, nontender EXTREMITIES : Chronic lymphedematous LE swelling, no LE tenderness, venous stasis changes noted NEUROLOGIC : Coherent, no facial asymmetry, speech fluent, moves all extremities spontaneously Discharge Data Allergies Allergy/AdvReac Type Severity Reaction Status Date / Time cetirizine Allergy Intermediate Hallucinati Verified 04/11/20 00:52 ng hydroxyzine AdvReac Intermediate Hallucinati Verified 04/11/20 00:52 ng Consultations 04/11/20 01:37 ED Decision to Admit Stat 04/11/20 03:08 Consult Cardiology Routine Hospital Course (1) Chest pain: History of CAD status post stent Rule out ACS Chronic diastolic heart failure (EF 60 to 65%, TTE 2018), at baseline SSS status post PPM on Eliquis, paced rhythm Hypertension, stable Hyperlipidemia on statin Rx Hx of past tobacco abuse Cardiology consulted Aspirin, beta-mian, statin Rx Trend troponin - negative TTE ordered by cardiology for further eval Cardiology consulted Nuclear stress test this AM (04/12/20) normal Pt continued to have episodes of chest pressure while inpt, however no EKG changes, troponin stayed negative, and stress test normal Imdur started by cardiology for possible microvascular disease, IV heparin transitioned to Eliquis In the past attributed symptoms to GERD, re-started pt on PPI for now Per cardiology, ok to discharge home, follow-up with them in 1 to 2 weeks. DM 2 insulin requiring, -outpatient hemoglobin A1c of 8.03 Dec 2019 Current A1c 6.6%, improved ISS BG goal 193860 DVT prophylaxis. Eliquis (was on heparin) Full code Total Time Total Time Spent Total Time Spent (In Minutes): 35 Total Time Includes: Examination of the Patient, Discharge Planning, Medication Reconciliation and Communication With Other Providers Discharge Plan Discharge Items Patient Disposition: Home - Self-Care Reason For Visit: CHEST PAIN Discharge Diagnosis: Atypical chest pain Activity: Per Instructions section Non-emergency contact: Primary Care Provider and Jewelsmith Call non-emergency contact if: you have any medication questions and your symptoms worsen Follow-up/Referrals: Jason West MD [Primary Care Provider] - Diet: Carb Consistent or DM2 and Heart Healthy Addtl Attending Provider Instructions: You were prescribed new medication, Imdur, by your cleaning matron. Take Imdur 15 mg daily. You will need to follow-up with cardiology clinic in 1 to 2 weeks. You will be contacted about your appointment. Previously it was believed that your symptoms may be related to acid reflux, pantoprazole was prescribed for you as well. Please take it daily and review further use with your primary care doctor/or cleaning matron. Pending Studies at Discharge: No Stand-Alone Forms: My [facility], Smoking Cessation Medications and DC Order Prescriptions: New isosorbide mononitrate 30 mg Tablet Extended Release 24 Hr 15 mg PO QAM 30 Days Qty: 15 RF: 0 acetaminophen 325 mg Tablet 650 mg PO Q4H PRN (Reason: pain) 5 Days RF: 0 pantoprazole 40 mg Tablet,Delayed Release (Dr/Ec) 40 mg PO QAM 30 Days Qty: 30 RF: 0 Continued multivitamin Tablet 1 tab PO PM RF: 0 atorvastatin 40 mg Tablet 40 mg PO QAM RF: 0 torsemide 20 mg tablet 20 mg PO BID RF: 0 metoprolol succinate 100 mg Tablet Extended Release 24 Hr 100 mg PO QAM RF: 0 nitroglycerin [Nitrostat] 0.4 mg Tablet, Sublingual 0.4 mg Sublingual DIRECTED PRN (Reason: Chest Pain) RF: 0 oxybutynin chloride 5 mg Tablet 5 mg PO BID RF: 0 Lantus Solostar U-100 Insulin 100 unit/mL (3 mL) Insulin Pen 20 unit SUBCUT BIDM RF: 0 Eliquis 5 mg Tablet 5 mg PO BID RF: 0 Entresto 24-26 mg tablet 1 tab PO BID RF: 0 glipizide 5 mg tablet 5 mg PO BID RF: 0 Discharge Orders: Discharge Order (Routine); Ordered 04/13/20 Ordered By: David Miles/Other Patient Handouts: Managing Type 2 Diabetes Admission Data Admit Date/Time: 04/11/20 15:34 Attending Provider: David Giraldo Admit Provider: Jamison Conner Primary Care Provider: Jason West Other Providers: Jamison Conner ; Steven Levine ; Tristian Vaca ; Segun Cooley ; Franc Montiel ; Abhinav Moreno ; Aurelio Viera ; Clementina Anaya ; Ludmila Doty ; Sai Pedersen Other Interventions: Discharge Summary Assessment (RN) Last Done: 04/13/20 13:39
== END 2020-04-13 14:11 | disposition home or self-care (01) | DRG 313 ==
LOC: ED 23:46 → 2S 23:46

== ENCOUNTER 2022-05-18 15:29 | Inpatient (IN) ==
[2022-05-18 16:34] LABS: Basophils # (auto) 0.06 K/uL (0-0.2); Basophils % (auto) 0.6 %; Eosinophils # (auto) 0.08 K/uL (0-0.50); Eosinophils % (auto) 0.8 %; Hematocrit (blood only) 29.7 % (34.1-44.9); Immature Granulocytes # (auto) 0.05 K/uL (0.00-0.02); Immature Granulocytes % (auto) 0.5 %; Lymphocytes # (auto) 1.73 K/uL (1.2-3.4); Lymphocytes % (auto) 17.4 %; Mean Corpuscular Hemoglobin 25.6 pg (25.0-34.0); Mean Corpuscular Hgb Conc 30.3 g/dL (32.0-36.0); Mean Corpuscular Volume 84.4 fL (80.0-100.0); Mean Platelet Volume 10.5 fL (9.4-12.3); Monocytes # (auto) 0.57 K/uL (0.24-0.82); Monocytes % (auto) 5.7 %; Neutrophils # (auto) 7.45 K/uL (1.4-6.5); Platelet Count 258 K/uL (130-400); RDW Coefficient of Variation 15.6 % (11.5-14.5); RDW Standard Deviation 46.9 fL (36.4-46.3); Red Blood Count 3.52 M/uL (3.93-5.22); White Blood Count 9.94 K/ul (4.8-10.8)
--- NOTE | 2022-05-18 16:40 | XRay Report ---
SINGLE VIEW CHEST CLINICAL HISTORY: Atypical chest pain. FINDINGS: An AP, portable, upright chest radiograph is compared to study dated 04/11/2020 and correlat ed with chest CT dated 12/19/2018. A 2-lead cardiac pacemaker is unchanged in position. The heart is m ildly enlarged noting atherosclerotic calcification of the thoracic aorta. The pulmonary vasculature is noncongested. There is chronic elevation of the right hemidiaphragm with bibasilar scarring/atelec tasis. Chronic interstitial thickening is similar to previous. The lungs and pleural spaces are other [place] clear. No pneumothorax is seen. The skeletal structures are osteopenic. The bony thorax is gross ly intact. Postsurgical change is noted in the right shoulder. Cholecystectomy clips are seen in the right upper quadrant. IMPRESSION: No acute cardiopulmonary abnormality. ACT 112: Negative or not required by law. Electronically signed by: Kofi Lopez M.D. 05/18/2022 4:38 PM
--- NOTE | 2022-05-18 16:44 | Emergency Department Note ---
Impression & Plan Chest pain, Atrial fibrillation with rapid ventricular response ED Provider Note INFORMANT: Patient ED PROVIDER(S): Tee Gonzalez MD CHIEF COMPLAINT: Chest pain PLAN: Disposition: Admitted Condition: Good Outpatient prescription management: none Referral: None MEDICAL DECISION MAKING: Patient presented complaining of chest pain. She had rapid A. fib noted on ECG and monitoring. Patient was treated with 2 doses of IV metoprolol. Patient is currently anticoagulated. Chest x-ray was unremarkable. Patient will require further management in the hospital. Patient was in agreement. [facility] Patient was evaluated in the ER admi tted for further management. Triage Nursing notes reviewed and agree them. Vital Signs: reviewed and remarkable for tachycardia Differential diagnosis: Cardiac ischemia, aortic dissection, pulmonary embolism, pneumothorax, pneumonia, pericarditis, myocarditis, esophageal rupture, GERD, cholecystitis, pancreatitis, musculoskeletal, as well as other pathologies. Diagnostics interpreted by me: EC Lead ECG performed and revealed Afib with VR at 124 BPM, Low voltage QRS, normal [place]. No elevation or depression. No PACs or PVCs Cardiac Monitoring: Cardiac monitoring ordered by me: The patient was placed on continuous cardiac monitoring and observed. It revealed Afib at 117 bpm. Imaging studies: Chest x-ray. Findings: A chest x-ray was performed and revealed no pneumothorax, effusion, infiltrate, pulmonary edema, free air under the diaphragm, or wide mediastinum. Impression: No acute disease. HPI: The patient is a 76 year old female who presents to the Emergency Room with complaints of chest pain, central, non-radiating. This started 0700 today and is persisting. The patient also notes the following associated symptoms, nausea, BROWN, SOB. The patient has found no relieving factors. Current pain is rated as 4/10. Hx of afib and on ELiquis.Hx of diabetic neuropathy in the legs and CHF. Pt denies LOC, headache, fevers, chills, diaphoresis, visual changes, neck pain, vomiting, abdominal pain, back pain, melena, hematochezia, urinary symptoms,new numbness, weakness, lymphadenopathy, rash, or other complaints. ROS: See above HPI for pertinent positives & negatives. A total of 10 systems reviewed and were otherwise negative. PAST MEDICAL HISTORY:See Below , Afib PAST SURGICAL HISTORY:See Below, pacemaker, stent FAMILY HISTORY:See Below SOCIAL HISTORY:See Below, non-smoker HOME MEDICATIONS:See Below ALLERGIES:See Below VITALS:See Below PHYSICAL EXAMINATION: GENERAL: Awake, alert, well-appearing, in no distress HENT: Normocephalic, atraumatic. Oropharynx unremarkable. EYES: Normal conjunctiva. Sclera non-icteric. NECK: Inspection normal. Non-tender. Supple. No nuchal rigidity. FROM. No masses. RESPIRATORY: Clear to auscultation. No wheezes. No rales. Normal respiratory effort. CARDIAC: Normal rate. Normal rhythm. No murmurs. No rubs. Extremities warm and well perfused. Pulses equal. No JVD. GI: Soft, non-distended. No tenderness to palpation. No rebound or guarding. No masses. RECTAL: Deferred. MUSCULOSKELETAL: Atraumatic. Chest examination reveals no tenderness. The back is symmetrical on inspection without obvious abnormality. There is no CVA tenderness to palpation. No joint edema. LOWER EXTREMITIES: Calves are equal size bilaterally and non-tender. 1-2+ edema. No discoloration. NEURO: Normal sensorium. No sensory or motor deficits noted. SKIN: No rash or jaundice noted. Tee Gonzalez MD Past Med/Surg History Medical History (Updated 05/19/22 @ 15:54 by Agus Epperson MD) Chronic diastolic HF (heart failure) Coronary artery disease "anterior MS 11/10/17, LVEF 20-25%, PCI LAD with ISABEL" DM type 2 (diabetes mellitus, type 2) Dyslipidemia Hx of supraventricular tachycardia Hypertension Osteoarthritis Paroxysmal A-fib on Eliquis Surgical History H/O ovarian cystectomy History of appendectomy History of cholecystectomy History of right knee joint replacement History of tonsillectomy Status post coronary artery stent placement "PCI LAD with ISABEL 11/10/17" Social History Smoking Status: Former smoker Second Hand Exposure: No; Hx Alcohol Use: No Hx Substance Use: No Preferred Language: Martiniquais Communication Ability: Effective Visual Impairment: Limited Sec Reporting Consultant Required: No Beliefs That Will Affect Care: Restoration Restoration Beliefs: Religion marital status: / Current Living Situation: Alone Current Living Situation Comment: States she will be looking to move to assisted living Other Information That Helps Us Care for You: No Feels Safe at Home: Yes Safety Concerns: Feels Safe At This Time Assistive Devices: Cane and Walker Allergies Allergies Allergy/AdvReac Type Severity Reaction Status Date / Time cetirizine AdvReac Intermediate Hallucinati Verified 05/18/22 19:31 ng hydroxyzine AdvReac Intermediate Hallucinati Verified 05/18/22 19:31 ng Home Meds Home Medications Medication Instructions Recorded Confirmed apixaban 5 mg tablet (Eliquis) 5 mg PO AMHS 06/18/18 05/18/22 atorvastatin 40 mg tablet 40 mg PO QAM 06/18/18 05/18/22 insulin glargine 100 unit/mL (3 20 unit subcut BIDM 06/18/18 05/18/22 mL) subcutaneous pen (Lantus Solostar U-100 Insulin) metoprolol succinate 100 mg See Rx Instructions .Route .COMPLEX 06/18/18 tablet,extended release 24 hr multivitamin 1 tab PO QDL 06/18/18 05/18/22 nitroglycerin 0.4 mg sublingual 0.4 mg sublingual DIRECTED PRN 06/18/18 05/18/22 tablet (Nitrostat) Chest Pain oxybutynin chloride 5 mg tablet 5 mg PO BID 06/18/18 05/18/22 torsemide 20 mg tablet 20 mg PO BID diuretic 06/18/18 05/18/22 sacubitril 24 mg-valsartan 26 mg 0.5 tab PO AMHS 04/10/20 05/18/22 tablet (Entresto) glipizide 5 mg tablet 5 mg PO BIDM 04/11/20 05/18/22 acetaminophen 500 mg tablet 1,000 mg PO DIRECTED PRN 05/18/22 05/18/22 (Tylenol Extra Strength) PAIN/FEVER aspirin 81 mg tablet,delayed 81 mg PO QAM 05/18/22 05/18/22 release calcium carbonate 600 mg-vitamin 1 tab PO QDD 05/18/22 05/18/22 D3 10 mcg (400 unit) tablet (Calcium 600 + D(3)) cinnamon bark 500 mg capsule 1,000 mg PO QDD 05/18/22 05/18/22 (Cinnamon) digoxin 125 mcg (0.125 mg) tablet 0.125 mg PO 3XWK 05/18/22 05/18/22 loratadine 10 mg tablet (Claritin) 10 mg PO DAILY PRN Congestion 05/18/22 05/18/22 magnesium oxide 400 mg PO QDL 05/18/22 05/18/22 peg 400-propylene glycol (PF) 0.4 1 drp OPB DIRECTED PRN Dry Eyes 05/18/22 05/18/22 %-0.3 % eye drops in a dropperette (Systane (PF)) phenylephrine-acetaminophen 5 1 tab PO QID PRN Headache 05/18/22 05/18/22 mg-325 mg tablet (Tylenol Sinus Headache) Results & Data (ED) Vital Signs Vital Signs - 24 hr 05/19/22 04:10 05/19/22 08:00 05/19/22 11:30 Temperature 36.6 C 36.6 C Temperature Source Oral Oral Pulse Rate - Lying Pulse Rate - Standing Pulse Rate 88 Pulse Rate [Apical] 100 H 69 Respiratory Rate 18 19 Respiratory Effort / Characteristics Non-Labored Spontaneous Respiratory Depth Normal Respiratory Pattern Regular Blood Pressure - Lying Blood Pressure- Standing Blood Pressure [Left Arm] 104/69 86/58 L Blood Pressure [Right Arm] 75/56 L Blood Pressure Mean [Left Arm] 80 67 Blood Pressure Mean [Right Arm] 62 Blood Pressure Position [Left Arm] Sitting Blood Pressure Position [Right Arm] Sitting Pulse Oximetry 96 98 Oxygen Delivery Method Room Air 05/19/22 15:03 05/19/22 16:00 05/19/22 16:53 Temperature 36.5 C Temperature Source Oral Pulse Rate - Lying 100 H Pulse Rate - Standing 93 H Pulse Rate Pulse Rate [Apical] 110 H Respiratory Rate 20 Respiratory Effort / Characteristics Respiratory Depth Normal Respiratory Pattern Blood Pressure - Lying 117/106 H Blood Pressure- Standing 73/56 L Blood Pressure [Left Arm] 112/64 Blood Pressure [Right Arm] Blood Pressure Mean [Left Arm] 80 Blood Pressure Mean [Right Arm] Blood Pressure Position [Left Arm] Lying Blood Pressure Position [Right Arm] Pulse Oximetry 96 Oxygen Delivery Method Room Air 05/19/22 18:05 Temperature Temperature Source Pulse Rate - Lying Pulse Rate - Standing Pulse Rate 88 Pulse Rate [Apical] Respiratory Rate Respiratory Effort / Characteristics Respiratory Depth Respiratory Pattern Blood Pressure - Lying Blood Pressure- Standing Blood Pressure [Left Arm] Blood Pressure [Right Arm] Blood Pressure Mean [Left Arm] Blood Pressure Mean [Right Arm] Blood Pressure Position [Left Arm] Blood Pressure Position [Right Arm] Pulse Oximetry Oxygen Delivery Method Laboratory Data Result diagrams: 05/19/22 05:29 05/19/22 05:29 Lab Results 05/18/22 05/18/22 05/18/22 Range/Units 15:21 15:21 15:21 WBC 9.94 (4.8-10.8) K/ul RBC 3.52 L (3.93-5.22) M/uL Hgb 9.0 L (12.0-16.0) g/dl Hct 29.7 L (34.1-44.9) % MCV 84.4 (80.0-100.0) fL MCH 25.6 (25.0-34.0) pg MCHC 30.3 L (32.0-36.0) g/dL RDW Std Deviation 46.9 H (36.4-46.3) fL RDW Coeff of [place] 15.6 H (11.5-14.5) % Plt Count 258 (130-400) K/uL MPV 10.5 (9.4-12.3) fL Immature Gran % (Auto) 0.5 % Neut % (Auto) 75.0 % Lymph % (Auto) 17.4 % Owen % (Auto) 5.7 % Eos % (Auto) 0.8 % Baso % (Auto) 0.6 % Neut # (Auto) 7.45 H (1.4-6.5) K/uL Lymph # (Auto) 1.73 (1.2-3.4) K/uL Owen # (Auto) 0.57 (0.24-0.82) K/uL Eos # (Auto) 0.08 (0-0.50) K/uL Baso # (Auto) 0.06 (0-0.2) K/uL Immature Gran # (Auto) 0.05 H (0.00-0.02) K/uL PT (9.0-12.0) Seconds INR (0.9-1.1) APTT (21.0-31.0) Seconds PTT Ratio Sodium 141 (136-145) mmol/L Potassium 5.5 H (3.5-5.1) mmol/L Chloride 105 (98-107) mmol/L Carbon Dioxide 30 (21-32) mmol/L Anion Gap 6 (3-11) BUN 43 H (6-23) mg/dl Creatinine 0.76 (0.6-1.2) mg/dl Est Cr Clr Drug Dosing 79.4 ml/min Est GFR ( Amer) 87.7 ml/min Est GFR (Non-Af Amer) 75.7 ml/min BUN/Creatinine Ratio 56.6 H (10-20) Glucose 185 H (70-99(Fasting)) mg/dl POC Glucose (70-99) mg/dl Estimat Average Glucose mg/dl Hemoglobin A1c (4.5-5.6) % Calcium 8.8 (8.5-10.1) mg/dl Magnesium (1.7-2.4) mg/dl Iron TIBC Unsaturated IBC Transferrin % Sat Total Bilirubin 0.4 (0.2-1.0) mg/dl AST 14 (13-39) U/L ALT 14 (7-52) U/L Alkaline Phosphatase 79 (34-104) U/L Total Creatine Kinase (26-192) U/L Troponin I High Sens 5.5 (0-14) pg/ml B-Natriuretic Peptide 110 H (0-100) pg/ml Total Protein 6.2 (6.0-8.3) gm/dl Albumin 3.2 L (3.4-5.0) gm/dl Globulin 3.0 (2.5-4.0) gm/dl Albumin/Globulin Ratio 1.1 (0.9-2) Lipase 26 (11-82) U/L Vitamin B12 (180-914) pg/ml Folate (>5.38) ng/ml SARS-CoV-2, RNA, NAAT (NEGATIVE) 05/18/22 05/18/22 05/18/22 Range/Units 15:21 16:59 21:47 WBC (4.8-10.8) K/ul RBC (3.93-5.22) M/uL Hgb (12.0-16.0) g/dl Hct (34.1-44.9) % MCV (80.0-100.0) fL MCH (25.0-34.0) pg MCHC (32.0-36.0) g/dL RDW Std Deviation (36.4-46.3) fL RDW Coeff of [place] (11.5-14.5) % Plt Count (130-400) K/uL MPV (9.4-12.3) fL Immature Gran % (Auto) % Neut % (Auto) % Lymph % (Auto) % Owen % (Auto) % Eos % (Auto) % Baso % (Auto) % Neut # (Auto) (1.4-6.5) K/uL Lymph # (Auto) (1.2-3.4) K/uL Owen # (Auto) (0.24-0.82) K/uL Eos # (Auto) (0-0.50) K/uL Baso # (Auto) (0-0.2) K/uL Immature Gran # (Auto) (0.00-0.02) K/uL PT 12.9 H (9.0-12.0) Seconds INR 1.2 H (0.9-1.1) APTT 23.8 (21.0-31.0) Seconds PTT Ratio 0.9 Sodium (136-145) mmol/L Potassium (3.5-5.1) mmol/L Chloride (98-107) mmol/L Carbon Dioxide (21-32) mmol/L Anion Gap (3-11) BUN (6-23) mg/dl Creatinine (0.6-1.2) mg/dl Est Cr Clr Drug Dosing ml/min Est GFR ( Amer) ml/min Est GFR (Non-Af Amer) ml/min BUN/Creatinine Ratio (10-20) Glucose (70-99(Fasting)) mg/dl POC Glucose 121 H (70-99) mg/dl Estimat Average Glucose mg/dl Hemoglobin A1c (4.5-5.6) % Calcium (8.5-10.1) mg/dl Magnesium (1.7-2.4) mg/dl Iron TIBC Unsaturated IBC Transferrin % Sat Total Bilirubin (0.2-1.0) mg/dl AST (13-39) U/L ALT (7-52) U/L Alkaline Phosphatase (34-104) U/L Total Creatine Kinase (26-192) U/L Troponin I High Sens (0-14) pg/ml B-Natriuretic Peptide (0-100) pg/ml Total Protein (6.0-8.3) gm/dl Albumin (3.4-5.0) gm/dl Globulin (2.5-4.0) gm/dl Albumin/Globulin Ratio (0.9-2) Lipase (11-82) U/L Vitamin B12 (180-914) pg/ml Folate (>5.38) ng/ml SARS-CoV-2, RNA, NAAT NEGATIVE (NEGATIVE) 05/19/22 05/19/22 05/19/22 Range/Units 05:29 05:29 05:29 WBC 10.43 (4.8-10.8) K/ul RBC 3.36 L (3.93-5.22) M/uL Hgb 8.7 L (12.0-16.0) g/dl Hct 27.8 L (34.1-44.9) % MCV 82.7 (80.0-100.0) fL MCH 25.9 (25.0-34.0) pg MCHC 31.3 L (32.0-36.0) g/dL RDW Std Deviation 48.5 H (36.4-46.3) fL RDW Coeff of [place] 15.9 H (11.5-14.5) % Plt Count 254 (130-400) K/uL MPV 10.5 (9.4-12.3) fL Immature Gran % (Auto) 0.3 % Neut % (Auto) 63.0 % Lymph % (Auto) 25.8 % Owen % (Auto) 8.4 % Eos % (Auto) 1.8 % Baso % (Auto) 0.7 % Neut # (Auto) 6.57 H (1.4-6.5) K/uL Lymph # (Auto) 2.69 (1.2-3.4) K/uL Owen # (Auto) 0.88 H (0.24-0.82) K/uL Eos # (Auto) 0.19 (0-0.50) K/uL Baso # (Auto) 0.07 (0-0.2) K/uL Immature Gran # (Auto) 0.03 H (0.00-0.02) K/uL PT (9.0-12.0) Seconds INR (0.9-1.1) APTT (21.0-31.0) Seconds PTT Ratio Sodium (136-145) mmol/L Potassium (3.5-5.1) mmol/L Chloride (98-107) mmol/L Carbon Dioxide (21-32) mmol/L Anion Gap (3-11) BUN (6-23) mg/dl Creatinine (0.6-1.2) mg/dl Est Cr Clr Drug Dosing ml/min Est GFR ( Amer) ml/min Est GFR (Non-Af Amer) ml/min BUN/Creatinine Ratio (10-20) Glucose (70-99(Fasting)) mg/dl POC Glucose (70-99) mg/dl Estimat Average Glucose mg/dl Hemoglobin A1c (4.5-5.6) % Calcium (8.5-10.1) mg/dl Magnesium (1.7-2.4) mg/dl Iron Cancelled TIBC Cancelled Unsaturated IBC Cancelled Transferrin % Sat Cancelled Total Bilirubin (0.2-1.0) mg/dl AST (13-39) U/L ALT (7-52) U/L Alkaline Phosphatase (34-104) U/L Total Creatine Kinase (26-192) U/L Troponin I High Sens Cancelled (0-14) pg/ml B-Natriuretic Peptide (0-100) pg/ml Total Protein (6.0-8.3) gm/dl Albumin (3.4-5.0) gm/dl Globulin (2.5-4.0) gm/dl Albumin/Globulin Ratio (0.9-2) Lipase (11-82) U/L Vitamin B12 296 (180-914) pg/ml Folate > 22.30 (>5.38) ng/ml SARS-CoV-2, RNA, NAAT (NEGATIVE) 05/19/22 05/19/22 05/19/22 Range/Units 05:29 05:29 05:58 WBC (4.8-10.8) K/ul RBC (3.93-5.22) M/uL Hgb (12.0-16.0) g/dl Hct (34.1-44.9) % MCV (80.0-100.0) fL MCH (25.0-34.0) pg MCHC (32.0-36.0) g/dL RDW Std Deviation (36.4-46.3) fL RDW Coeff of [place] (11.5-14.5) % Plt Count (130-400) K/uL MPV (9.4-12.3) fL Immature Gran % (Auto) % Neut % (Auto) % Lymph % (Auto) % Owen % (Auto) % Eos % (Auto) % Baso % (Auto) % Neut # (Auto) (1.4-6.5) K/uL Lymph # (Auto) (1.2-3.4) K/uL Owen # (Auto) (0.24-0.82) K/uL Eos # (Auto) (0-0.50) K/uL Baso # (Auto) (0-0.2) K/uL Immature Gran # (Auto) (0.00-0.02) K/uL PT (9.0-12.0) Seconds INR (0.9-1.1) APTT (21.0-31.0) Seconds PTT Ratio Sodium 142 (136-145) mmol/L Potassium 4.9 (3.5-5.1) mmol/L Chloride 108 H (98-107) mmol/L Carbon Dioxide 28 (21-32) mmol/L Anion Gap 6 (3-11) BUN 50 H (6-23) mg/dl Creatinine 0.77 (0.6-1.2) mg/dl Est Cr Clr Drug Dosing 75.1 ml/min Est GFR ( Amer) 86.3 ml/min Est GFR (Non-Af Amer) 74.5 ml/min BUN/Creatinine Ratio 64.9 H (10-20) Glucose 127 H (70-99(Fasting)) mg/dl POC Glucose 130 H (70-99) mg/dl Estimat Average Glucose 154 mg/dl Hemoglobin A1c 7.0 H (4.5-5.6) % Calcium 9.1 (8.5-10.1) mg/dl Magnesium 1.9 (1.7-2.4) mg/dl Iron 52 TIBC 260 Unsaturated IBC 208 Transferrin % Sat 20 Total Bilirubin (0.2-1.0) mg/dl AST (13-39) U/L ALT (7-52) U/L Alkaline Phosphatase (34-104) U/L Total Creatine Kinase (26-192) U/L Troponin I High Sens 7.3 (0-14) pg/ml B-Natriuretic Peptide (0-100) pg/ml Total Protein (6.0-8.3) gm/dl Albumin (3.4-5.0) gm/dl Globulin (2.5-4.0) gm/dl Albumin/Globulin Ratio (0.9-2) Lipase (11-82) U/L Vitamin B12 (180-914) pg/ml Folate (>5.38) ng/ml SARS-CoV-2, RNA, NAAT (NEGATIVE) 05/19/22 05/19/22 05/19/22 Range/Units 11:02 11:30 14:37 WBC (4.8-10.8) K/ul RBC (3.93-5.22) M/uL Hgb (12.0-16.0) g/dl Hct (34.1-44.9) % MCV (80.0-100.0) fL MCH (25.0-34.0) pg MCHC (32.0-36.0) g/dL RDW Std Deviation (36.4-46.3) fL RDW Coeff of [place] (11.5-14.5) % Plt Count (130-400) K/uL MPV (9.4-12.3) fL Immature Gran % (Auto) % Neut % (Auto) % Lymph % (Auto) % Owen % (Auto) % Eos % (Auto) % Baso % (Auto) % Neut # (Auto) (1.4-6.5) K/uL Lymph # (Auto) (1.2-3.4) K/uL Owen # (Auto) (0.24-0.82) K/uL Eos # (Auto) (0-0.50) K/uL Baso # (Auto) (0-0.2) K/uL Immature Gran # (Auto) (0.00-0.02) K/uL PT (9.0-12.0) Seconds INR (0.9-1.1) APTT (21.0-31.0) Seconds PTT Ratio Sodium (136-145) mmol/L Potassium (3.5-5.1) mmol/L Chloride (98-107) mmol/L Carbon Dioxide (21-32) mmol/L Anion Gap (3-11) BUN (6-23) mg/dl Creatinine (0.6-1.2) mg/dl Est Cr Clr Drug Dosing ml/min Est GFR ( Amer) ml/min Est GFR (Non-Af Amer) ml/min BUN/Creatinine Ratio (10-20) Glucose (70-99(Fasting)) mg/dl POC Glucose 170 H (70-99) mg/dl Estimat Average Glucose mg/dl Hemoglobin A1c (4.5-5.6) % Calcium (8.5-10.1) mg/dl Magnesium (1.7-2.4) mg/dl Iron TIBC Unsaturated IBC Transferrin % Sat Total Bilirubin (0.2-1.0) mg/dl AST (13-39) U/L ALT (7-52) U/L Alkaline Phosphatase (34-104) U/L Total Creatine Kinase 29 (26-192) U/L Troponin I High Sens 6.7 (0-14) pg/ml B-Natriuretic Peptide (0-100) pg/ml Total Protein (6.0-8.3) gm/dl Albumin (3.4-5.0) gm/dl Globulin (2.5-4.0) gm/dl Albumin/Globulin Ratio (0.9-2) Lipase (11-82) U/L Vitamin B12 (180-914) pg/ml Folate (>5.38) ng/ml SARS-CoV-2, RNA, NAAT (NEGATIVE) 05/19/22 05/19/22 Range/Units 16:27 16:43 WBC (4.8-10.8) K/ul RBC (3.93-5.22) M/uL Hgb (12.0-16.0) g/dl Hct (34.1-44.9) % MCV (80.0-100.0) fL MCH (25.0-34.0) pg MCHC (32.0-36.0) g/dL RDW Std Deviation (36.4-46.3) fL RDW Coeff of [place] (11.5-14.5) % Plt Count (130-400) K/uL MPV (9.4-12.3) fL Immature Gran % (Auto) % Neut % (Auto) % Lymph % (Auto) % Owen % (Auto) % Eos % (Auto) % Baso % (Auto) % Neut # (Auto) (1.4-6.5) K/uL Lymph # (Auto) (1.2-3.4) K/uL Owen # (Auto) (0.24-0.82) K/uL Eos # (Auto) (0-0.50) K/uL Baso # (Auto) (0-0.2) K/uL Immature Gran # (Auto) (0.00-0.02) K/uL PT (9.0-12.0) Seconds INR (0.9-1.1) APTT (21.0-31.0) Seconds PTT Ratio Sodium (136-145) mmol/L Potassium (3.5-5.1) mmol/L Chloride (98-107) mmol/L Carbon Dioxide (21-32) mmol/L Anion Gap (3-11) BUN (6-23) mg/dl Creatinine (0.6-1.2) mg/dl Est Cr Clr Drug Dosing ml/min Est GFR ( Amer) ml/min Est GFR (Non-Af Amer) ml/min BUN/Creatinine Ratio (10-20) Glucose (70-99(Fasting)) mg/dl POC Glucose 142 H (70-99) mg/dl Estimat Average Glucose mg/dl Hemoglobin A1c (4.5-5.6) % Calcium (8.5-10.1) mg/dl Magnesium (1.7-2.4) mg/dl Iron TIBC Unsaturated IBC Transferrin % Sat Total Bilirubin (0.2-1.0) mg/dl AST (13-39) U/L ALT (7-52) U/L Alkaline Phosphatase (34-104) U/L Total Creatine Kinase (26-192) U/L Troponin I High Sens 7.1 (0-14) pg/ml B-Natriuretic Peptide (0-100) pg/ml Total Protein (6.0-8.3) gm/dl Albumin (3.4-5.0) gm/dl Globulin (2.5-4.0) gm/dl Albumin/Globulin Ratio (0.9-2) Lipase (11-82) U/L Vitamin B12 (180-914) pg/ml Folate (>5.38) ng/ml SARS-CoV-2, RNA, NAAT (NEGATIVE) Administered Medications Apixaban (Apixaban 5 Mg Tablet) 5 mg PO AMHS [facility] Stop: 06/17/22 21:42 Last Admin: 05/19/22 21:09 Dose: 5 mg Documented By: Admin: 05/19/22 08:24 Dose: 5 mg Documented By: Admin: 05/18/22 22:21 Dose: 5 mg Documented By: MARCY Aspirin (Aspirin 81 Mg Ectab) 81 mg PO [facility] Stop: 06/18/22 08:59 Last Admin: 05/19/22 08:24 Dose: 81 mg Documented By: MANUEL Atorvastatin Calcium (Atorvastatin 40 Mg Tab) 40 mg PO [facility] Stop: 06/18/22 08:59 Last Admin: 05/19/22 08:24 Dose: 40 mg Documented By: MANUEL Calcium/Vitamin D (Calcium 600mg + Vit D 400 Iu Tab) 1 tab PO QDD [facility] Stop: 06/18/22 16:29 Last Admin: 05/19/22 18:27 Dose: 1 tab Documented By: Digoxin (Digoxin 0.125 Mg Tab) 0.125 mg PO [id number] [facility] Stop: 06/17/22 21:59 Last Admin: 05/18/22 22:22 Dose: 0.125 mg Documented By: MARCY Insulin Aspart (Insulin Aspart Per Unit) 0 units SC Q6 [facility] Stop: 06/17/22 21:59 Last Admin: 05/20/22 00:10 Dose: Not Given Documented By: Admin: 05/19/22 17:15 Dose: Not Given Documented By: Admin: 05/19/22 11:47 Dose: 3 units Documented By: MANUEL Co-signed By: Admin: 05/19/22 08:12 Dose: 4 units Documented By: MANUEL Co-signed By: CHANTE Admin: 05/19/22 06:04 Dose: Not Given Documented By: Admin: 05/18/22 22:17 Dose: Not Given Documented By: MARCY Insulin Glargine (Lantus Per Unit Charge) 10 units SQ BID [facility] Stop: 06/17/22 21:42 Last Admin: 05/19/22 20:54 Dose: 10 units Documented By: PK Co-signed By: GIRMA Admin: 05/19/22 08:12 Dose: 10 units Documented By: MANUEL Co-signed By: CHANTE Admin: 05/18/22 22:20 Dose: 10 units Documented By: MARCY Co-signed By: SAMANTHA Loratadine (Loratadine 10 Mg Tab) 10 mg PO DAILY PRN PRN Reason: Congestion Stop: 06/17/22 21:42 Last Admin: 05/20/22 00:15 Dose: 10 mg Documented By: MIA Magnesium Oxide (Magnesium Oxide 400 Mg Tab) 400 mg PO QDL [facility] Stop: 06/18/22 11:29 Last Admin: 05/19/22 11:45 Dose: 400 mg Documented By: MANUEL Metoprolol Succinate (Metoprolol Succ 50mg Ext Rel Tab) 100 mg PO HS [facility] Stop: 06/17/22 21:59 Last Admin: 05/19/22 21:09 Dose: 100 mg Documented By: Admin: 05/18/22 22:22 Dose: 100 mg Documented By: MARCY Metoprolol Succinate (Metoprolol Succ 50mg Ext Rel Tab) 150 mg PO QAM KAYLA Stop: 06/18/22 08:59 Last Admin: 05/19/22 08:25 Dose: 150 mg Documented By: MANUEL Multivitamins (Multivitamin Tab) 1 tab PO QDL [facility] Stop: 06/18/22 11:29 Last Admin: 05/19/22 11:45 Dose: 1 tab Documented By: MANUEL Oxybutynin Chloride (Oxybutynin Chloride 5 Mg Tab) 5 mg PO BID [facility] Stop: 06/17/22 21:42 Last Admin: 05/19/22 21:09 Dose: 5 mg Documented By: Admin: 05/19/22 08:25 Dose: 5 mg Documented By: Admin: 05/18/22 22:21 Dose: 5 mg Documented By: MARCY Sacubitril/Valsartan (Valsartan/Sacubitril 26/24mg Tab) 0.5 tab PO BID KAYLA Stop: 06/17/22 21:59 Last Admin: 05/19/22 21:09 Dose: 0.5 tab Documented By: Admin: 05/19/22 08:25 Dose: 0.5 tab Documented By: Admin: 05/18/22 22:23 Dose: 0.5 tab Documented By: MARCY Torsemide (Torsemide 20 Mg Tab) 20 mg PO [id number] KAYLA Stop: 06/17/22 21:59 Last Admin: 05/19/22 08:25 Dose: 20 mg Documented By: Admin: 05/18/22 22:23 Dose: 20 mg Documented By: MARCY Discontinued Medications Lactated Ringer's (Lr) 1,000 mls @ 50 mls/hr IV .Q20H KAYLA Stop: 05/20/22 00:59 Last Infusion: 05/20/22 02:08 Dose: 0 mls/hr Documented By: Admin: 05/19/22 16:32 Dose: 50 mls/hr Documented By: Metoprolol Tartrate (Metoprolol Tartrate 1 Mg/Ml Vial) 2.5 mg IV NOW STA Stop: 05/18/22 16:46 Last Admin: 05/18/22 16:52 Dose: 2.5 mg Documented By: EVE Metoprolol Tartrate (Metoprolol Tartrate 1 Mg/Ml Vial) 2.5 mg IV NOW STA Stop: 05/18/22 19:08 Last Admin: 05/18/22 19:27 Dose: 2.5 mg Documented By: ATIF Nitroglycerin (Nitroglycerin 2% Ointment 30gm Tube) 0.5 inch EXT NOW STA Stop: 05/18/22 16:46 Last Admin: 05/18/22 16:52 Dose: 0.5 inch Documented By: EVE Ondansetron HCl (Ondansetron Inj 2 Mg/Ml 2 Ml Vial) 4 mg IV NOW STA Stop: 05/18/22 16:46 Last Admin: 05/18/22 16:52 Dose: 4 mg Documented By: EVE Pantoprazole Sodium (Pantoprazole 40 Mg Tab) 40 mg PO BID KAYLA Stop: 05/22/22 21:01 Last Admin: 05/19/22 08:25 Dose: 40 mg Documented By: MANUEL Discharge Plan Visit Data Chief Complaint: Cardiac Assessment ED Provider: Tee Gonzalez Discharge Problem: Chest pain, Atrial fibrillation with rapid ventricular response Patient Disposition: Admitted As Inpatient Discharge Instructions Interventions: ED Discharge Assessment Last Done: 05/18/22 21:12
[2022-05-18] MEDS ORDERED: ONDANSETRON INJ 2 MG/ML 2 ML VIAL IV STA (16:45)
[2022-05-18] MEDS ORDERED: NITROGLYCERIN 2% OINTMENT 30GM TUBE EXT STA (16:45)
[2022-05-18] MEDS ORDERED: METOPROLOL TARTRATE 1 MG/ML VIAL IV STA ×2 (16:45→19:07)
[2022-05-18 16:46] LABS: INR 1.2 (0.9-1.1); Partial Thromboplastin Ratio 0.9; Partial Thromboplastin Time 23.8 Seconds (21.0-31.0); Prothrombin Time 12.9 Seconds (9.0-12.0)
[2022-05-18 17:13] LABS: Troponin I High Sensitivity 5.5 pg/ml (0-14)
[2022-05-18 17:32] LABS: Albumin Globulin Ratio 1.1 (0.9-2); Albumin Level 3.2 gm/dl (3.4-5.0); BUN Creatinine Ratio 56.6 (10-20); Bilirubin,Total 0.4 mg/dl (0.2-1.0); Calcium 8.8 mg/dl (8.5-10.1); Creatinine Clr Calc Pharmacy 79.4 ml/min; Est GFR (African American) 87.7 ml/min; Est GFR (Non-African American) 75.7 ml/min; Potassium 5.5 mmol/L (3.5-5.1); Total Protein 6.2 gm/dl (6.0-8.3)
[2022-05-18] MEDS ORDERED: NITROGLYCERIN SL 0.4 MG/TAB TAB SL PRN ×2 (21:43)
[2022-05-18] MEDS ORDERED: LORATADINE 10 MG TAB PO PRN (21:43)
[2022-05-18] MEDS ORDERED: ONDANSETRON INJ 2 MG/ML 2 ML VIAL IV PRN (21:43)
[2022-05-18] MEDS ORDERED: ARTIFICIAL TEARS OP PRN (21:51)
[2022-05-18] MEDS ORDERED: INFLUENZA VACCINE HIGH DOSE PF 65+ 0.7 ML SYR IM ONE (21:56)
[2022-05-18] MEDS ORDERED: GLUCOSE 40% GEL 15 GM TUBE PO PRN (22:00)
[2022-05-18] MEDS ORDERED: GLUCAGON FOR INJ 1 MG VIAL IM PRN (22:00)
[2022-05-18] MEDS ORDERED: CARBOHYDRATES FOR HYPOGLYCEMIA PO PRN (22:00)
[2022-05-18] MEDS ORDERED: GLUCOSE 10 TAB/TUBE PO PRN (22:00)
[2022-05-18] MEDS ORDERED: DIGOXIN 0.125 MG TAB PO SCH (22:00)
[2022-05-18] MEDS ORDERED: DEXTROSE 50% 50 ML SYRINGE IV PRN (22:00)
[2022-05-18] MEDS: INSULIN ASPART PER UNIT SC SCH (22:17)
[2022-05-18] MEDS: LANTUS PER UNIT CHARGE SQ SCH (22:20)
[2022-05-18] MEDS: APIXABAN 5 MG TABLET PO SCH (22:21)
[2022-05-18] MEDS: OXYBUTYNIN CHLORIDE 5 MG TAB PO SCH (22:21)
[2022-05-18] MEDS: METOPROLOL SUCC 50MG EXT REL TAB PO SCH (22:22)
[2022-05-18] MEDS: VALSARTAN/SACUBITRIL 26/24MG TAB PO SCH (22:23)
[2022-05-18] MEDS: TORSEMIDE 20 MG TAB PO SCH (22:23)
--- NOTE | 2022-05-18 22:27 | History and Physical Report ---
DATE OF ADMISSION: 05/18/2022. CHIEF COMPLAINT: Chest pain, dizzy and imbalance. HISTORY OF PRESENT ILLNESS: A 76-year-old female with past medical history significant for type 2 diabetes, hyperlipidemia, paroxysmal atrial fibrillation, history of CAD, chronic systolic CHF- post-VT, morbid obesity, chronic kidney disease stage III, generalized osteoarthrosis, lymphedema of both lower extremities, depression, presents with chest pain and dizziness. The patient woke up in the morning with dizziness and some nausea and imbalance and chest pain. Nausea improved but still _some what imbalance in the ER, she was using walker to ambulate. At home she uses a cane, but still feeling a little bit wobbly. Her chest pain is improved with nitro,. When she came in chest pain was 4/10 and currently it is only 1-2. Denies any headache. No blurred vision, double vision. No earache, no runny nose, no sore throat, no cough, no fevers. Appetite is okay. No difficulty swallowing. She gets on and off shortness of breath, nothing new. No abdominal pain. Normal bowel and bladder movements. Has chronic lower extremity edema. Currently resting comfortably and hemodynamically stable. ALLERGIES: HYDROXYZINE, CETIRIZINE. PAST MEDICAL HISTORY: As mentioned above. PAST SURGICAL HISTORY: Appendectomy and ovarian cyst procedure, right total knee arthroplasty, left heart catheterization, bilateral ankle surgeries, tonsillectomy, cholecystectomy. MEDICATIONS: The patient is on Tylenol Extra Strength 1000 mg p.o. b.i.d. p.r.n., aspirin 81 mg p.o. a.m., atorvastatin 40 mg p.o. a.m., calcium carbonate 650 one tablet p.o. daily, cinnamon bark 1000 mg p.o. daily, digoxin 0.125 mg p.o. 3 times a week, Eliquis 5 mg p.o. b.i.d., Entresto half tab p.o. b.i.d., glipizide 5 mg p.o. b.i.d., Lantus 20 units b.i.d., loratadine 10 mg p.o. daily p.r.n., magnesium oxide 400 mg p.o. daily, metoprolol succinate 150 mg in a.m. and 100 mg in p.m., multivitamin 1 tablet daily, nitroglycerin 0.4 mg sublingual p.r.n., oxybutynin 5 mg p.o. b.i.d., Systane 1 drop ophthalmic daily p.r.n., torsemide 20 mg p.o. b.i.d. FAMILY HISTORY: Significant for father had cancer, mother had diabetes, CABG, hypertension. SOCIAL HISTORY: . Former smoker, quit in August 1999, smoked 1.5 packs a day for 35 years. Alcohol, rare. No drug use. REVIEW OF SYSTEMS: As per HPI. Rest of review of systems is negative. PHYSICAL EXAMINATION: GENERAL: The patient is obese, not in acute distress. VITAL SIGNS: Temperature 37.1, pulse 103, respiratory rate 20, blood pressure 117/71, oxygen 97% on room air. HEENT: Pupils equal, round and reactive to light. Oral mucosa moist. NECK: No JVD. No neck masses. CARDIOVASCULAR: S1 and S2 heard. Regular rate and rhythm. No murmur, no gallop. RESPIRATORY SYSTEM: Normal AP diameter. No accessory muscle use. No wheezing, no crackles. ABDOMEN: Soft, bowel sounds present, nontender, no distention. CENTRAL NERVOUS SYSTEM: Alert and oriented. Speech is clear. No facial droop. Obeys simple commands. Moves extremities. EXTREMITIES: Bilateral lower extremity lymphedema present. No obvious erythema seen. LABORATORY DATA: WBC 9.9, hemoglobin 9, hematocrit 29.7, platelets 258. PT 12.9, INR 1.2, APTT 23.8. Sodium 141, potassium 5.5, chloride 105, CO2 of 30, BUN 43, creatinine 0.7, serum glucose 185, calcium 8.8, total bilirubin 0.4, AST 14, ALT 14, alkaline phosphatase 79. Troponin I high sensitivity 5.5. Lipase 26. SARS-CoV-2 rapid test negative. IMAGING DATA: Chest x-ray, no acute cardiopulmonary findings. EKG a fib with rate of 102. No acute st changes seen. ASSESSMENT AND PLAN: This is a 76-year-old female who presents with chest pain and dizziness and imbalance. 1. Chest pain: Rule out acute coronary syndrome. Initial workup is negative. We will follow serial enzymes. We will repeat EKG, repeat echo. Monitor in the [facility] floor, n.p.o. Consult cardiology in the a.m. for further recommendations. 2. Dizzy and imbalance. We will get a CT of the head, orthostatics. We will consider consulting neurology in the a.m. 3. Diabetes, currently n.p.o. We will place on Lantus 10 units b.i.d., insulin sliding scale. Hold glipizide. Will follow the blood sugars, follow HbA1c levels. 4. History of paroxysmal atrial fibrillation, rate controlled with metoprolol and digoxin. On Eliquis. 5. History of chronic systolic congestive heart failure, last echo in May 2021, EF is normal at 55%. We will follow up with repeat echo. 6. Bilateral chronic lower extremity lymphedema. Continue on diuretics. 7. Hyperlipidemia: On statin. 8. Hypertension: On metoprolol, Entresto, diuretics. We will monitor the blood pressure. 9. Anemia, hemoglobin currently seems to be between 9 and 10. We will follow the Hemoccult studies and iron studies and vitamin B12, folate levels. 10. Deep venous thrombosis prophylaxis: On Eliquis. DISPOSITION: Closely monitor in the tele floor. Level 1 full code. Expect to discharge home and follow with family doctor. Job ID: [id number] [facility] CENTERJesica
[2022-05-19 06:04] LABS: Basophils # (auto) 0.07 K/uL (0-0.2); Basophils % (auto) 0.7 %; Eosinophils # (auto) 0.19 K/uL (0-0.50); Eosinophils % (auto) 1.8 %; Hematocrit (blood only) 27.8 % (34.1-44.9); Hemoglobin 8.7 g/dl (12.0-16.0); Immature Granulocytes # (auto) 0.03 K/uL (0.00-0.02); Immature Granulocytes % (auto) 0.3 %; Lymphocytes # (auto) 2.69 K/uL (1.2-3.4); Lymphocytes % (auto) 25.8 %; Mean Corpuscular Hemoglobin 25.9 pg (25.0-34.0); Mean Corpuscular Hgb Conc 31.3 g/dL (32.0-36.0); Mean Corpuscular Volume 82.7 fL (80.0-100.0); Mean Platelet Volume 10.5 fL (9.4-12.3); Monocytes # (auto) 0.88 K/uL (0.24-0.82); Monocytes % (auto) 8.4 %; Neutrophils # (auto) 6.57 K/uL (1.4-6.5); Platelet Count 254 K/uL (130-400); RDW Coefficient of Variation 15.9 % (11.5-14.5); RDW Standard Deviation 48.5 fL (36.4-46.3); Red Blood Count 3.36 M/uL (3.93-5.22); White Blood Count 10.43 K/ul (4.8-10.8)
[2022-05-19] MEDS: INSULIN ASPART PER UNIT SC SCH ×4 (06:04→17:15)
[2022-05-19 06:29] LABS: Troponin I High Sensitivity 7.3 pg/ml (0-14)
[2022-05-19 06:31] LABS: BUN Creatinine Ratio 64.9 (10-20); Calcium 9.1 mg/dl (8.5-10.1); Creatinine Clr Calc Pharmacy 75.1 ml/min; Est GFR (African American) 86.3 ml/min; Est GFR (Non-African American) 74.5 ml/min; Magnesium 1.9 mg/dl (1.7-2.4); Potassium 4.9 mmol/L (3.5-5.1)
[2022-05-19 06:49] LABS: Vitamin B12 296 pg/ml (180-914)
--- NOTE | 2022-05-19 06:57 | CT Scan Report ---
CT head/brain wo con CLINICAL HISTORY: 76 years-old Female with dizzy/imbalance. Acute dizziness with weakness TECHNIQUE: Multiple axial CT images of the head were obtained without contrast. A dose lowering tech nique was utilized adhering to the principles of ALARA. CT DOSE: 1381.76 mGy.cm COMPARISON: Head CT 08/25/2018 FINDINGS: No acute intracranial hemorrhage, midline shift, intracranial mass, hydrocephalus, territorial ischem ia or abnormal extra-axial collection. Age-related involutional changes. White matter hypodensities s uggestive of chronic microvascular ischemic disease, mildly progressed from the prior study. The calvarium is intact. Prior bilateral lens repair. The paranasal sinuses, mastoid air cells, and m iddle ear cavities are clear. IMPRESSION: No acute intracranial abnormality identified. ACT 112: Negative or not required by law. The above report was generated using voice recognition software. It may contain grammatical, syntax o r spelling errors. Electronically signed by: Michele Maddox M.D. 05/19/2022 6:56 AM
[2022-05-19 07:09] LABS: Estimated Average Glucose 154 mg/dl
[2022-05-19] MEDS: LANTUS PER UNIT CHARGE SQ SCH ×2 (08:12→20:54)
[2022-05-19] MEDS: ASPIRIN 81 MG ECTAB PO SCH (08:24)
[2022-05-19] MEDS: ATORVASTATIN 40 MG TAB PO SCH (08:24)
[2022-05-19] MEDS: APIXABAN 5 MG TABLET PO SCH ×2 (08:24→21:09)
[2022-05-19] MEDS: TORSEMIDE 20 MG TAB PO SCH (08:25)
[2022-05-19] MEDS: OXYBUTYNIN CHLORIDE 5 MG TAB PO SCH ×2 (08:25→21:09)
[2022-05-19] MEDS: VALSARTAN/SACUBITRIL 26/24MG TAB PO SCH ×2 (08:25→21:09)
[2022-05-19] MEDS: METOPROLOL SUCC 50MG EXT REL TAB PO SCH ×2 (08:25→21:09)
[2022-05-19] MEDS ORDERED: PANTOprazole 40 MG TAB PO SCH (09:00)
--- NOTE | 2022-05-19 09:04 | Electrocardiogram Report ---
Test Reason : Blood Pressure : / mmHG Vent. Rate : 124 BPM Atrial Rate : 174 BPM P-R Int : 000 ms QRS Dur : 064 ms QT Int : 310 ms P-R-T Axes : 000 -14 092 degrees QTc Int : 445 ms Atrial fibrillation with rapid ventricular response Low voltage QRS Poor R wave progression, consider anterior AK vs. lead placement vs. LVH Diffuse Nonspecific T wave abnormality Abnormal ECG When compared with ECG of 13-APR-2020 07:17, Atrial fibrillation has replaced Electronic atrial pacemaker Vent. rate has increased BY 61 BPM Nonspecific T wave abnormality now present Confirmed by Neftaly Prather ([id number]) on 05/19/2022 9:03:54 AM Referred By: REFERRED SELF Confirmed By:Neftaly Prather
--- NOTE | 2022-05-19 09:05 | Electrocardiogram Report ---
Test Reason : Blood Pressure : / mmHG Vent. Rate : 102 BPM Atrial Rate : 300 BPM P-R Int : 000 ms QRS Dur : 066 ms QT Int : 362 ms P-R-T Axes : 000 -24 -24 degrees QTc Int : 471 ms Atrial fibrillation with rapid ventricular response with occasional ventricular-paced complexes Low voltage QRS Diffuse Nonspecific T wave abnormality Abnormal ECG When compared with ECG of 18-MAY-2022 15:38, HR has decreased by 22 bpm Electronic ventricular pacemaker now present Confirmed by Neftaly Prather ([id number]) on 05/19/2022 9:05:17 AM Referred By: REFERRED SELF Confirmed By:Neftaly Prather
--- NOTE | 2022-05-19 11:10 | Cardiology Consultation ---
Date of Consultation May 19, 2022 Assessment & Plan (1) Chest pain: (2) Atrial fibrillation with rapid ventricular response: * Patient with noted atrial fibrillation rapid ventricular response upon arrival. Symptoms feeling improved at present. EKG with nonspecific T wave flattening, no definite ST depression or elevation. High-sensitivity troponin negative on serial basis thus far. Her heart rates are much better controlled on her chronic dose of metoprolol succinate 150 mg every morning, 100 every afternoon and digoxin today. * May need to titrate this, noted rapid ventricular rates noted this hospital stay as well as in the past. * Should previously been on amiodarone for rhythm control strategy, but had ongoing atrial fibrillation. * She is on aspirin and Eliquis on a chronic basis with noted mild anemia. * Volume status appears stable and agree with continuing home dose of Entresto and torsemide. At this time will advance diet. Plan for Lexiscan stress testing. History of Present Illness Attending Physician: Agus Epperson MD History of Present Illness Ciara Baig is a 76-year-old female seen in cardiology consultation per the request of Dr. Waite for the evaluation of chest discomfort. Patient is well-known to the undersigned as I have seen her on an inpatient and outpatient basis for several years. Patient notes that yesterday she went to get out of bed and felt generalized dizziness. Every time she tried to get up she had recurrence of her symptoms and then she noted intermittent chest heaviness. At present she is sitting in bedside chair. Telemetry reveals atrial fibrillation with rates in the 80s, rates as high as the 130s with minimal exertion. 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 She had noted residual circumflex disease that was not amenable to PCI at that time. 4.Dyslipidemia 5.Multifactorial lower extremity edema with diastolic dysfunction and lymphedema Allergies Allergy/AdvReac Type Severity Reaction Status Date / Time cetirizine AdvReac Intermediate Hallucinati Verified 05/18/22 19:31 ng hydroxyzine AdvReac Intermediate Hallucinati Verified 05/18/22 19:31 ng Home Medications Medication Instructions Recorded Confirmed Type apixaban 5 mg tablet (Eliquis) 5 mg PO AMHS 06/18/18 05/18/22 History atorvastatin 40 mg tablet 40 mg PO QAM 06/18/18 05/18/22 History insulin glargine 100 unit/mL (3 20 unit subcut BIDM 06/18/18 05/18/22 History mL) subcutaneous pen (Lantus Solostar U-100 Insulin) metoprolol succinate 100 mg See Rx Instructions .Route .COMPLEX 06/18/18 05/18/22 History tablet,extended release 24 hr multivitamin 1 tab PO QDL 06/18/18 05/18/22 History nitroglycerin 0.4 mg sublingual 0.4 mg sublingual DIRECTED PRN 06/18/18 05/18/22 History tablet (Nitrostat) Chest Pain oxybutynin chloride 5 mg tablet 5 mg PO BID 06/18/18 05/18/22 History torsemide 20 mg tablet 20 mg PO BID diuretic 06/18/18 05/18/22 History sacubitril 24 mg-valsartan 26 mg 0.5 tab PO AMHS 04/10/20 05/18/22 History tablet (Entresto) glipizide 5 mg tablet 5 mg PO BIDM 04/11/20 05/18/22 History acetaminophen 500 mg tablet 1,000 mg PO DIRECTED PRN 05/18/22 05/18/22 History (Tylenol Extra Strength) PAIN/FEVER aspirin 81 mg tablet,delayed 81 mg PO QAM 05/18/22 05/18/22 History release calcium carbonate 600 mg-vitamin 1 tab PO QDD 05/18/22 05/18/22 History D3 10 mcg (400 unit) tablet (Calcium 600 + D(3)) cinnamon bark 500 mg capsule 1,000 mg PO QDD 05/18/22 05/18/22 History (Cinnamon) digoxin 125 mcg (0.125 mg) tablet 0.125 mg PO 3XWK 05/18/22 05/18/22 History loratadine 10 mg tablet (Claritin) 10 mg PO DAILY PRN Congestion 05/18/22 05/18/22 History magnesium oxide 400 mg PO QDL 05/18/22 05/18/22 History peg 400-propylene glycol (PF) 0.4 1 drp OPB DIRECTED PRN Dry Eyes 05/18/22 05/18/22 History %-0.3 % eye drops in a dropperette (Systane (PF)) phenylephrine-acetaminophen 5 1 tab PO QID PRN Headache 05/18/22 05/18/22 History mg-325 mg tablet (Tylenol Sinus Headache) Patient History Medical History Chronic diastolic HF (heart failure) Coronary artery disease "anterior MD 11/10/17, LVEF 20-25%, PCI LAD with ISABEL" DM type 2 (diabetes mellitus, type 2) Dyslipidemia Hx of supraventricular tachycardia Hypertension Osteoarthritis Paroxysmal A-fib on Eliquis Surgical History H/O ovarian cystectomy History of appendectomy History of cholecystectomy History of right knee joint replacement History of tonsillectomy Status post coronary artery stent placement "PCI LAD with ISABEL 11/10/17" Social History Smoking Status: Former smoker Second Hand Exposure: No; Hx Alcohol Use: No Hx Substance Use: No Preferred Language: Faroese Communication Ability: Effective Visual Impairment: Limited Director Of [employer] Required: No Beliefs That Will Affect Care: Druze Druze Beliefs: Roman Catholic marital status: / Current Living Situation: Alone Current Living Situation Comment: States she will be looking to move to assisted living Other Information That Helps Us Care for You: No Feels Safe at Home: Yes Safety Concerns: Feels Safe At This Time Assistive Devices: Cane and Walker Review of Systems Review of Systems: All systems reviewed & are unremarkable except as noted in HPI & below Physical Exam Physical Exam: Temp Pulse Resp BP Pulse Ox O2 Del Method 36.6 C 88 18 104/69 96 05/19/22 04:10 05/19/22 08:00 05/19/22 04:10 05/19/22 04:10 05/19/22 04:10 05/18/22 21:45 Constitutional: + obese; no acute distress Respiratory: normal respiratory effort, lungs clear to auscultation Cardiovascular: Rate/Rhythm: + irregularly irregular Heart Sounds: normal S1 and normal S2; no murmur Extremities: + edema (1+ chronic lower extremity edema due to venous insufficiency, stable) Gastrointestinal (Abdomen): normal bowel sounds, soft, nontender, no hepatosplenomegaly Neurologic: PERRL, EOMI, accommodation nl, no face palsy, no dysarthria Results & Data ([facility]) Vital Signs (Past 12 Hours) Vital Signs Temp Pulse Pulse Resp BP Pulse Ox 05/19/22 08:00 88 05/19/22 04:10 36.6 C 100 H 18 104/69 96 Laboratory Results Cardiac Enzymes 05/18/22 05/18/22 05/19/22 Range/Units 15:21 15:21 05:29 AST 14 (13-39) U/L Troponin I High Sens 5.5 Cancelled (0-14) pg/ml B-Natriuretic Peptide 110 H (0-100) pg/ml 05/19/22 Range/Units 05:29 AST (13-39) U/L Troponin I High Sens 7.3 (0-14) pg/ml B-Natriuretic Peptide (0-100) pg/ml Coagulation 05/18/22 05/18/22 Range/Units 15:21 15:21 PT 12.9 H (9.0-12.0) Seconds APTT 23.8 (21.0-31.0) Seconds B-Natriuretic Peptide 110 H (0-100) pg/ml CBC 05/18/22 05/19/22 Range/Units 15:21 05:29 WBC 9.94 10.43 (4.8-10.8) K/ul RBC 3.52 L 3.36 L (3.93-5.22) M/uL Hgb 9.0 L 8.7 L (12.0-16.0) g/dl Hct 29.7 L 27.8 L (34.1-44.9) % Plt Count 258 254 (130-400) K/uL Neut # (Auto) 7.45 H 6.57 H (1.4-6.5) K/uL Lymph # (Auto) 1.73 2.69 (1.2-3.4) K/uL [place] # (Auto) 0.57 0.88 H (0.24-0.82) K/uL Eos # (Auto) 0.08 0.19 (0-0.50) K/uL Baso # (Auto) 0.06 0.07 (0-0.2) K/uL Comprehensive Metabolic Panel 05/18/22 05/19/22 Range/Units 15:21 05:29 Sodium 141 142 (136-145) mmol/L Potassium 5.5 H 4.9 (3.5-5.1) mmol/L Chloride 105 108 H (98-107) mmol/L Carbon Dioxide 30 28 (21-32) mmol/L BUN 43 H 50 H (6-23) mg/dl Creatinine 0.76 0.77 (0.6-1.2) mg/dl Glucose 185 H 127 H (70-99(Fasting)) mg/dl Calcium 8.8 9.1 (8.5-10.1) mg/dl AST 14 (13-39) U/L ALT 14 (7-52) U/L Alkaline Phosphatase 79 (34-104) U/L Total Protein 6.2 (6.0-8.3) gm/dl Albumin 3.2 L (3.4-5.0) gm/dl Intake and Output 05/18/22 05/19/22 05/19/22 22:59 06:59 14:59 Intake Total 150 / 150 Output Total 1650 / 1650 Balance -1500 / -1500 Intake: Oral 150 / 150 Output: Urine 1650 / 1650 Other: Weight 117.5 kg 115.7 kg Weight Measurement Method Built in [facility] Built in [facility] Diagnostic Findings EKG performed 05/18/2022 at 1538 and reviewed independently: Atrial fibrillation with rapid ventricular sponsor 124 bpm, poor R wave progression consistent with previous history of anterior MD, nonspecific diffuse T wave flattening. Compared to the previous performed in 2019, ventricular rate had increased by 61 bpm. EKG today 05/19/2020, reviewed independently: Atrial fibrillation 102 bpm, nonspecific diffuse T wave flattening.
[2022-05-19] MEDS: MULTIVITAMIN TAB PO SCH (11:45)
[2022-05-19] MEDS: MAGNESIUM OXIDE 400 MG TAB PO SCH (11:45)
--- NOTE | 2022-05-19 14:22 | Neurology Consultation ---
Date of Consultation May 19, 2022 Assessment & Plan (1) Orthostatic hypotension: Impression: The patient has been suffering from postural lightheadedness, which affects her ambulation as well. Orthostatics is suggestive of postural hypotension with poor response of heart rate. The patient has extensive cardiac history on high-dose beta-blockers. Plan/recommendations: Management of postural hypotension, which is likely cause of the patient's postural dizziness. Cardiac ultrasounds study to evaluate for neck vessel stenosis. If the patient's dizziness persists after improvement of postural hypotension, then we would recommend brain MRI/MRA to rule out posterior circulation ischemic event. Physical therapy and Occupational Therapy. (2) Atrial fibrillation with rapid ventricular response: Impression: The patient presented emergency department with atrial fibrillation with rapid ventricular response. Heart rate has been controlled since admission. However, the patient still feels dizzy and lightheaded after standing up. Plan/recommendations: Cardiology is on board. (3) Chest pain: (4) Ischemic cardiomyopathy: (5) Acute on chronic diastolic (congestive) heart failure: (6) Tachy-barbra syndrome: (7) Diabetic polyneuropathy: Impression: The patient has long history of diabetes and related polyneuropathy affecting bilateral lower extremities distally. The patient denies any recent change of sensory symptoms. Plan/recommendations: Blood sugar control. Fall precautions. (8) Physical deconditioning: Impression: The patient has been sedentary with limited ambulation. Today's physical examination suggest proximal muscle weakness symmetrically, consistent with general deconditioning. Myopathic process is less likely. Plan/recommendations: We will check the CPK level to investigate for muscle breakdown. Physical therapy and Occupational Therapy. Fall precautions. Patient might need inpatient rehabilitation. Plan Thank you for the consultation. History of Present Illness Reason for Consultation: Dizziness Requesting Physician: Agus Epperson Attending Physician: Agus Epperson MD History of Present Illness The patient is a 76-year-old pleasant female, who presented emergency department yesterday, with complaints of chest pressure, lightheadedness and dizziness. She has extensive cardiac history including paroxysmal atrial fibrillation, coronary artery disease, pacemaker placement, chronic systolic congestive heart failure, history of myocardial infarction, on Eliquis and aspirin. In emergency department, she was found in atrial fibrillation with rapid ventricular response. She received nitro, with some improvement of chest pressure. The patient reports that she feels dizzy and lightheaded, whenever she stands up for last 2 days. Intermittently, she feels lightheadedness in sitting position as well. The patient denies vertigo, nausea and vomiting. The patient has been on high-dose metoprolol for rhythm control. We checked orthostatics during my visit, which showed systolic blood pressure of 117/106 with pulse 100 in supine position, which dropped down to 75/36 with pulse 93 after standing up with reappearance of dizziness, lightheadedness, as the patient has been experiencing for last few days. Heart rate did not increase as expected when blood pressure dropped. This is suggestive of orthostatic hypotension. The patient denies additional neurological symptoms. She has diabetes mellitus with peripheral polyneuropathy for a long time. She might have additional dysautonomia secondary to diabetes mellitus. Head CT did not show acute intracranial pathology. The patient has been sedentary for a long time. She has generalized weakness involving mostly proximal muscles. On her baseline, she ambulates with walker and sometimes with a cane. For last 2 days, she has not been able to ambulate as usual because of postural lightheadedness. I have reviewed the patient's chart including imaging studies and visualized them personally. I have discussed the case with the patient and answered her questions in detail. Allergies Allergy/AdvReac Type Severity Reaction Status Date / Time cetirizine AdvReac Intermediate Hallucinati Verified 05/18/22 19:31 ng hydroxyzine AdvReac Intermediate Hallucinati Verified 05/18/22 19:31 ng Home Medications Medication Instructions Recorded Confirmed Type apixaban 5 mg tablet (Eliquis) 5 mg PO AMHS 06/18/18 05/18/22 History atorvastatin 40 mg tablet 40 mg PO QAM 06/18/18 05/18/22 History insulin glargine 100 unit/mL (3 20 unit subcut BIDM 06/18/18 05/18/22 History mL) subcutaneous pen (Lantus Solostar U-100 Insulin) metoprolol succinate 100 mg See Rx Instructions .Route .COMPLEX 06/18/18 05/18/22 History tablet,extended release 24 hr multivitamin 1 tab PO QDL 06/18/18 05/18/22 History nitroglycerin 0.4 mg sublingual 0.4 mg sublingual DIRECTED PRN 06/18/18 05/18/22 History tablet (Nitrostat) Chest Pain oxybutynin chloride 5 mg tablet 5 mg PO BID 06/18/18 05/18/22 History torsemide 20 mg tablet 20 mg PO BID diuretic 06/18/18 05/18/22 History sacubitril 24 mg-valsartan 26 mg 0.5 tab PO AMHS 04/10/20 05/18/22 History tablet (Entresto) glipizide 5 mg tablet 5 mg PO BIDM 04/11/20 05/18/22 History acetaminophen 500 mg tablet 1,000 mg PO DIRECTED PRN 05/18/22 05/18/22 History (Tylenol Extra Strength) PAIN/FEVER aspirin 81 mg tablet,delayed 81 mg PO QAM 05/18/22 05/18/22 History release calcium carbonate 600 mg-vitamin 1 tab PO QDD 05/18/22 05/18/22 History D3 10 mcg (400 unit) tablet (Calcium 600 + D(3)) cinnamon bark 500 mg capsule 1,000 mg PO QDD 05/18/22 05/18/22 History (Cinnamon) digoxin 125 mcg (0.125 mg) tablet 0.125 mg PO 3XWK 05/18/22 05/18/22 History loratadine 10 mg tablet (Claritin) 10 mg PO DAILY PRN Congestion 05/18/22 05/18/22 History magnesium oxide 400 mg PO QDL 05/18/22 05/18/22 History peg 400-propylene glycol (PF) 0.4 1 drp OPB DIRECTED PRN Dry Eyes 05/18/22 05/18/22 History %-0.3 % eye drops in a dropperette (Systane (PF)) phenylephrine-acetaminophen 5 1 tab PO QID PRN Headache 05/18/22 05/18/22 History mg-325 mg tablet (Tylenol Sinus Headache) Patient History Medical History (Updated 05/19/22 @ 14:14 by Bharat Bardales MD) Chronic diastolic HF (heart failure) Coronary artery disease "anterior [place] 11/10/17, LVEF 20-25%, PCI LAD with ISABEL" DM type 2 (diabetes mellitus, type 2) Dyslipidemia Hx of supraventricular tachycardia Hypertension Osteoarthritis Paroxysmal A-fib on Eliquis Surgical History H/O ovarian cystectomy History of appendectomy History of cholecystectomy History of right knee joint replacement History of tonsillectomy Status post coronary artery stent placement "PCI LAD with ISABEL 11/10/17" Social History Smoking Status: Former smoker Second Hand Exposure: No; Hx Alcohol Use: No Hx Substance Use: No Preferred Language: Armenian Communication Ability: Effective Visual Impairment: Limited Float Operator Required: No Beliefs That Will Affect Care: Pentecostal Pentecostal Beliefs: Druze marital status: / Current Living Situation: Alone Current Living Situation Comment: States she will be looking to move to assisted living Other Information That Helps Us Care for You: No Feels Safe at Home: Yes Safety Concerns: Feels Safe At This Time Assistive Devices: Cane and Walker Physical Exam Physical Exam: General Examination: Constitutional: Well developed morbidly obese person in no acute distress. HEENT: Normal exam with inspection. CV: Hearth rhythm is irregular. Neck: Supple, no carotid bruits. Lungs: Non-labored and comfortable breathing. Abdomen: Soft, non-tender, non-distended. Skin: No rash or ecchymosis. Extremities: Bilateral foot and ankle edema NEUROLOGICAL EXAMINATION: Mental Status: Alert and oriented to place, person and time. Cranial Nerves: II-XII are intact. No nystagmus. Funduscopy: Normal looking optic discs. Motor: 5/5 BC, TC, intrinsic hand muscles and ankle dorsiflexors symmetrically. Bilateral deltoids are 4+/5. left knee extensors are 4-/5 partially due to knee pain. Righ knee extensors are 4+/5. Tone: Normal without spasticity or rigidity. Sensory: Decreased sensation in distal lower extremities up to knees symmetrically DTRs: 2- in upper extremities, trace in knees and absent in ankles. No Babinski. Coordination: No dysmetria with FTN testing. Speech: Fluent. Comprehension is intact. Gait: She can stands up independently but cannot walk with lightheadedness. Musculoskeletal: Normal muscle bulk, no atrophy. Results & Data ([facility]) Vital Signs (Past 12 Hours) Vital Signs Temp Pulse Pulse Resp BP BP Pulse Ox 05/19/22 11:30 36.6 C 69 19 86/58 L 75/56 L 98 05/19/22 08:00 88 05/19/22 04:10 36.6 C 100 H 18 104/69 96 O2 Del Method 05/19/22 11:30 Room Air 05/19/22 08:00 05/19/22 04:10 Laboratory Results Laboratory Results - last 24 hr 05/18/22 05/18/22 05/18/22 15:21 15:21 15:21 WBC 9.94 RBC 3.52 L Hgb 9.0 L Hct 29.7 L MCV 84.4 MCH 25.6 MCHC 30.3 L RDW Std Deviation 46.9 H RDW Coeff of Yosi 15.6 H Plt Count 258 MPV 10.5 Immature Gran % (Auto) 0.5 Neut % (Auto) 75.0 Lymph % (Auto) 17.4 [place] % (Auto) 5.7 Eos % (Auto) 0.8 Baso % (Auto) 0.6 Neut # (Auto) 7.45 H Lymph # (Auto) 1.73 Shackelford # (Auto) 0.57 Eos # (Auto) 0.08 Baso # (Auto) 0.06 Immature Gran # (Auto) 0.05 H PT INR APTT PTT Ratio Sodium 141 Potassium 5.5 H Chloride 105 Carbon Dioxide 30 Anion Gap 6 BUN 43 H Creatinine 0.76 Est Cr Clr Drug Dosing 79.4 Est GFR ( Amer) 87.7 Est GFR (Non-Af Amer) 75.7 BUN/Creatinine Ratio 56.6 H Glucose 185 H POC Glucose Estimat Average Glucose Hemoglobin A1c Calcium 8.8 Magnesium Iron TIBC Unsaturated IBC Transferrin % Sat Total Bilirubin 0.4 AST 14 ALT 14 Alkaline Phosphatase 79 Troponin I High Sens 5.5 B-Natriuretic Peptide 110 H Total Protein 6.2 Albumin 3.2 L Globulin 3.0 Albumin/Globulin Ratio 1.1 Lipase 26 Vitamin B12 Folate SARS-CoV-2, RNA, NAAT 05/18/22 05/18/22 05/18/22 15:21 16:59 21:47 WBC RBC Hgb Hct MCV MCH MCHC RDW Std Deviation RDW Coeff of Yosi Plt Count MPV Immature Gran % (Auto) Neut % (Auto) Lymph % (Auto) [place]ack[place] % (Auto) Eos % (Auto) Baso % (Auto) Neut # (Auto) Lymph # (Auto) [place] # (Auto) Eos # (Auto) Baso # (Auto) Immature Gran # (Auto) PT 12.9 H INR 1.2 H APTT 23.8 PTT Ratio 0.9 Sodium Potassium Chloride Carbon Dioxide Anion Gap BUN Creatinine Est Cr Clr Drug Dosing Est GFR ( Amer) Est GFR (Non-Af Amer) BUN/Creatinine Ratio Glucose POC Glucose 121 H Estimat Average Glucose Hemoglobin A1c Calcium Magnesium Iron TIBC Unsaturated IBC Transferrin % Sat Total Bilirubin AST ALT Alkaline Phosphatase Troponin I High Sens B-Natriuretic Peptide Total Protein Albumin Globulin Albumin/Globulin Ratio Lipase Vitamin B12 Folate SARS-CoV-2, RNA, NAAT NEGATIVE 05/19/22 05/19/22 05/19/22 05:29 05:29 05:29 WBC 10.43 RBC 3.36 L Hgb 8.7 L Hct 27.8 L MCV 82.7 MCH 25.9 MCHC 31.3 L RDW Std Deviation 48.5 H RDW Coeff of Yosi 15.9 H Plt Count 254 MPV 10.5 Immature Gran % (Auto) 0.3 Neut % (Auto) 63.0 Lymph % (Auto) 25.8 Shackelford % (Auto) 8.4 Eos % (Auto) 1.8 Baso % (Auto) 0.7 Neut # (Auto) 6.57 H Lymph # (Auto) 2.69 [place] # (Auto) 0.88 H Eos # (Auto) 0.19 Baso # (Auto) 0.07 Immature Gran # (Auto) 0.03 H PT INR APTT PTT Ratio Sodium Potassium Chloride Carbon Dioxide Anion Gap BUN Creatinine Est Cr Clr Drug Dosing Est GFR ( Amer) Est GFR (Non-Af Amer) BUN/Creatinine Ratio Glucose POC Glucose Estimat Average Glucose Hemoglobin A1c Calcium Magnesium Iron Cancelled TIBC Cancelled Unsaturated IBC Cancelled Transferrin % Sat Cancelled Total Bilirubin AST ALT Alkaline Phosphatase Troponin I High Sens Cancelled B-Natriuretic Peptide Total Protein Albumin Globulin Albumin/Globulin Ratio Lipase Vitamin B12 296 Folate > 22.30 SARS-CoV-2, RNA, NAAT 05/19/22 05/19/22 05/19/22 05:29 05:29 05:58 WBC RBC Hgb Hct MCV MCH MCHC RDW Std Deviation RDW Coeff of Yosi Plt Count MPV Immature Gran % (Auto) Neut % (Auto) Lymph % (Auto) [place]ack[place] % (Auto) Eos % (Auto) Baso % (Auto) Neut # (Auto) Lymph # (Auto) [place] # (Auto) Eos # (Auto) Baso # (Auto) Immature Gran # (Auto) PT INR APTT PTT Ratio Sodium 142 Potassium 4.9 Chloride 108 H Carbon Dioxide 28 Anion Gap 6 BUN 50 H Creatinine 0.77 Est Cr Clr Drug Dosing 75.1 Est GFR ( Amer) 86.3 Est GFR (Non-Af Amer) 74.5 BUN/Creatinine Ratio 64.9 H Glucose 127 H POC Glucose 130 H Estimat Average Glucose 154 Hemoglobin A1c 7.0 H Calcium 9.1 Magnesium 1.9 Iron 52 TIBC 260 Unsaturated IBC 208 Transferrin % Sat 20 Total Bilirubin AST ALT Alkaline Phosphatase Troponin I High Sens 7.3 B-Natriuretic Peptide Total Protein Albumin Globulin Albumin/Globulin Ratio Lipase Vitamin B12 Folate SARS-CoV-2, RNA, NAAT 05/19/22 05/19/22 11:02 11:30 WBC RBC Hgb Hct MCV MCH MCHC RDW Std Deviation RDW Coeff of Yosi Plt Count MPV Immature Gran % (Auto) Neut % (Auto) Lymph % (Auto) [place] % (Auto) Eos % (Auto) Baso % (Auto) Neut # (Auto) Lymph # (Auto) [place] # (Auto) Eos # (Auto) Baso # (Auto) Immature Gran # (Auto) PT INR APTT PTT Ratio Sodium Potassium Chloride Carbon Dioxide Anion Gap BUN Creatinine Est Cr Clr Drug Dosing Est GFR ( Amer) Est GFR (Non-Af Amer) BUN/Creatinine Ratio Glucose POC Glucose 170 H Estimat Average Glucose Hemoglobin A1c Calcium Magnesium Iron TIBC Unsaturated IBC Transferrin % Sat Total Bilirubin AST ALT Alkaline Phosphatase Troponin I High Sens 6.7 B-Natriuretic Peptide Total Protein Albumin Globulin Albumin/Globulin Ratio Lipase Vitamin B12 Folate SARS-CoV-2, RNA, NAAT Diagnostic Findings Chest X-Ray 05/18/22 16:10 SINGLE VIEW CHEST CLINICAL HISTORY: Atypical chest pain. FINDINGS: An AP, portable, upright chest radiograph is compared to study dated 04/11/2020 and correlated with chest CT dated 12/19/2018. A 2-lead cardiac pacemaker is unchanged in position. The heart is mildly enlarged noting atherosclerotic calcification of the thoracic aorta. The pulmonary vasculature is noncongested. There is chronic elevation of the right hemidiaphragm with bibasilar scarring/atelectasis. Chronic interstitial thickening is similar to previous. The lungs and pleural spaces are otherwise clear. No pneumothorax is seen. The skeletal structures are osteopenic. The bony thorax is grossly intact. Postsurgical change is noted in the right shoulder. Cholecystectomy clips are seen in the right upper quadrant. IMPRESSION: No acute cardiopulmonary abnormality. ACT 112: Negative or not required by law. Electronically signed by: Kofi Lopez M.D. 05/18/2022 4:[address] 05/18/22 20:31 CT head/brain wo con CLINICAL HISTORY: 76 years-old Female with dizzy/imbalance. Acute dizziness with weakness TECHNIQUE: Multiple axial CT images of the head were obtained without contrast. A dose lowering technique was utilized adhering to the principles of ALARA. CT DOSE: 1381.76 mGy.cm COMPARISON: Head CT 08/25/2018 FINDINGS: No acute intracranial hemorrhage, midline shift, intracranial mass, hydrocephalus, territorial ischemia or abnormal extra-axial collection. Age- related involutional changes. White matter hypodensities suggestive of chronic microvascular ischemic disease, mildly progressed from the prior study. The calvarium is intact. Prior bilateral lens repair. The paranasal sinuses, mastoid air cells, and middle ear cavities are clear. IMPRESSION: No acute intracranial abnormality identified. ACT 112: Negative or not required by law. The above report was generated using voice recognition software. It may contain grammatical, syntax or spelling errors. Electronically signed by: Michele Maddox M.D. 05/19/2022 6:56 AM
--- NOTE | 2022-05-19 14:44 | Hospitalist Progress Note ---
Date of Service May 19, 2022 Assessment & Plan (1) Postural dizziness with presyncope: (2) Chest pain: (3) Atrial fibrillation with rapid ventricular response: Plan A 76-year-old female with past medical history significant for type 2 diabetes, hyperlipidemia, paroxysmal atrial fibrillation, history of CAD, chronic systolic CHF- post-KS, morbid obesity, chronic kidney disease stage III, generalized osteoarthrosis, lymphedema of both lower extremities, depression, presents with chest pain and dizziness. Dizziness secondary to postural hypotension Chest pain, ACS ruled out A. fib with RVR Afebrile, hypotensive and saturating well in room air Orthostatic positive CT headno acute intracranial abnormality High sensitive troponin negative EKG shows A. fib with RVR Echo shows EF of 55 to 60% Plan; -In light of her orthostatic being positive and her clinical symptoms. We will hold her diuretics. Holding parameter placed for Entresto. We will start her on LR at 50 cc/h and repeat orthostatic every shift -Neurology on board for dizziness; recommend carotid bilateral. They also recommend further imaging if dizziness does not improve with improvement in postural hypotension -Cardiology on board; continue on metoprolol for rate control. Continue on Eliquis. Anemia,- hemoglobin slightly lower than baseline at 8.5. Her BUN is also elevated. She reports no changes in color of her stool. Plan: On aspirin and Eliquis. Obtain Hemoccult; if hemoglobin drops further we will consider GI consult. Started on Protonix once daily Hyperlipidemia: On statin. Hypertension: On metoprolol, Entresto, diuretics. We will monitor the blood pressure. Deep venous thrombosis prophylaxis: On Eliquis. DISPOSITION: Closely monitor in the tele floor. Level 1 Admission and Anticipated Discharge Date Admission Date: May 18, 2022 Subjective Seen and examined at bedside. She is comfortably sitting up on the bed; not in distress. She reports of dizziness while ambulating. Her orthostatics today positive by the nursing staff Review of Systems Review of Systems: All systems reviewed & are unremarkable except as noted in Subjective Physical Exam Physical Exam: GENERAL: The patient is obese, not in acute distress. HEENT: Pupils equal, round and reactive to light. Oral mucosa moist. NECK: No JVD. No neck masses. CARDIOVASCULAR: S1 and S2 heard. Regular rate and rhythm. No murmur, no gallop. RESPIRATORY SYSTEM: Normal AP diameter. No accessory muscle use. No wheezing, no crackles. ABDOMEN: Soft, bowel sounds present, nontender, no distention. CENTRAL NERVOUS SYSTEM: Alert and oriented. Speech is clear. No facial droop. Obeys simple commands. Moves extremities. EXTREMITIES: Bilateral lower extremity lymphedema present. No obvious erythema seen. Results & Data Results & Data ([facility]) Vital Signs (Past 12 Hours) Vital Signs Temp Pulse Pulse Resp BP BP Pulse Ox 05/19/22 11:30 36.6 C 69 19 86/58 L 75/56 L 98 05/19/22 08:00 88 05/19/22 04:10 36.6 C 100 H 18 104/69 96 O2 Del Method 05/19/22 11:30 Room Air 05/19/22 08:00 05/19/22 04:10 Laboratory Results Laboratory Results WBC 10.43 K/ul (4.8-10.8) 05/19/22 05:29 RBC 3.36 M/uL (3.93-5.22) L 05/19/22 05:29 Hgb 8.7 g/dl (12.0-16.0) L 05/19/22 05:29 Hct 27.8 % (34.1-44.9) L 05/19/22 05:29 MCV 82.7 fL (80.0-100.0) 05/19/22 05:29 MCH 25.9 pg (25.0-34.0) 05/19/22 05:29 MCHC 31.3 g/dL (32.0-36.0) L 05/19/22 05:29 RDW Std Deviation 48.5 fL (36.4-46.3) H 05/19/22 05:29 RDW Coeff of Yosi 15.9 % (11.5-14.5) H 05/19/22 05:29 Plt Count 254 K/uL (130-400) 05/19/22 05:29 MPV 10.5 fL (9.4-12.3) 05/19/22 05:29 Immature Gran % (Auto) 0.3 % 05/19/22 05:29 Neut % (Auto) 63.0 % 05/19/22 05:29 Lymph % (Auto) 25.8 % 05/19/22 05:29 Burt % (Auto) 8.4 % 05/19/22 05:29 Eos % (Auto) 1.8 % 05/19/22 05:29 Baso % (Auto) 0.7 % 05/19/22 05:29 Neut # (Auto) 6.57 K/uL (1.4-6.5) H 05/19/22 05:29 Lymph # (Auto) 2.69 K/uL (1.2-3.4) 05/19/22 05:29 Burt # (Auto) 0.88 K/uL (0.24-0.82) H 05/19/22 05:29 Eos # (Auto) 0.19 K/uL (0-0.50) 05/19/22 05:29 Baso # (Auto) 0.07 K/uL (0-0.2) 05/19/22 05:29 Immature Gran # (Auto) 0.03 K/uL (0.00-0.02) H 05/19/22 05:29 PT 12.9 Seconds (9.0-12.0) H 05/18/22 15:21 INR 1.2 (0.9-1.1) H 05/18/22 15:21 APTT 23.8 Seconds (21.0-31.0) 05/18/22 15:21 PTT Ratio 0.9 05/18/22 15:21 Sodium 142 mmol/L (136-145) 05/19/22 05:29 Potassium 4.9 mmol/L (3.5-5.1) 05/19/22 05:29 Chloride 108 mmol/L (98-107) H 05/19/22 05:29 Carbon Dioxide 28 mmol/L (21-32) 05/19/22 05:29 Anion Gap 6 (3-11) 05/19/22 05:29 BUN 50 mg/dl (6-23) H 05/19/22 05:29 Creatinine 0.77 mg/dl (0.6-1.2) 05/19/22 05:29 Est Cr Clr Drug Dosing 75.1 ml/min 05/19/22 05:29 Est GFR ( Amer) 86.3 ml/min 05/19/22 05:29 Est GFR (Non-Af Amer) 74.5 ml/min 05/19/22 05:29 BUN/Creatinine Ratio 64.9 (10-20) H 05/19/22 05:29 Glucose 127 mg/dl (70-99(Fasting)) H 05/19/22 05:29 POC Glucose 170 mg/dl (70-99) H 05/19/22 11:30 Estimat Average Glucose 154 mg/dl 05/19/22 05:29 Hemoglobin A1c 7.0 % (4.5-5.6) H 05/19/22 05:29 Calcium 9.1 mg/dl (8.5-10.1) 05/19/22 05:29 Magnesium 1.9 mg/dl (1.7-2.4) 05/19/22 05:29 Iron 52 mcg/dl (35-150) 05/19/22 05:29 Iron Cancelled 05/19/22 05:29 TIBC 260 mcg/dl (250-450) 05/19/22 05:29 TIBC Cancelled 05/19/22 05:29 Unsaturated IBC 208 mcg/dl (155-355) 05/19/22 05:29 Unsaturated IBC Cancelled 05/19/22 05:29 Transferrin % Sat 20 % (15-50) 05/19/22 05:29 Transferrin % Sat Cancelled 05/19/22 05:29 Total Bilirubin 0.4 mg/dl (0.2-1.0) 05/18/22 15:21 AST 14 U/L (13-39) 05/18/22 15:21 ALT 14 U/L (7-52) 05/18/22 15:21 Alkaline Phosphatase 79 U/L (34-104) 05/18/22 15:21 Total Creatine Kinase 29 U/L (26-192) 05/19/22 14:37 Troponin I High Sens 6.7 pg/ml (0-14) 05/19/22 11:02 B-Natriuretic Peptide 110 pg/ml (0-100) H 05/18/22 15:21 Total Protein 6.2 gm/dl (6.0-8.3) 05/18/22 15:21 Albumin 3.2 gm/dl (3.4-5.0) L 05/18/22 15:21 Globulin 3.0 gm/dl (2.5-4.0) 05/18/22 15:21 Albumin/Globulin Ratio 1.1 (0.9-2) 05/18/22 15:21 Lipase 26 U/L (11-82) 05/18/22 15:21 Vitamin B12 296 pg/ml (180-914) 05/19/22 05:29 Folate > 22.30 ng/ml (>5.38) 05/19/22 05:29 SARS-CoV-2, RNA, NAAT NEGATIVE (NEGATIVE) 05/18/22 16:59 Impressions Chest X-Ray 05/18/22 16:10 SINGLE VIEW CHEST CLINICAL HISTORY: Atypical chest pain. FINDINGS: An AP, portable, upright chest radiograph is compared to study dated 04/11/2020 and correlated with chest CT dated 12/19/2018. A 2-lead cardiac pacemaker is unchanged in position. The heart is mildly enlarged noting atherosclerotic calcification of the thoracic aorta. The pulmonary vasculature is noncongested. There is chronic elevation of the right hemidiaphragm with b ibasilar scarring/atelectasis. Chronic interstitial thickening is similar to previous. The lungs and pleural spaces are otherwise clear. No pneumothorax is seen. The skeletal structures are osteopenic. The bony thorax is grossly intact. Postsurgical change is noted in the right shoulder. Cholecystectomy clips are seen in the right upper quadrant. IMPRESSION: No acute cardiopulmonary abnormality. ACT 112: Negative or not required by law. Electronically signed by: Kofi Lopez M.D. 05/18/2022 4:[address] 05/18/22 20:31 CT head/brain wo con CLINICAL HISTORY: 76 years-old Female with dizzy/imbalance. Acute dizziness with weakness TECHNIQUE: Multiple axial CT images of the head were obtained without contrast. A dose lowering technique was utilized adhering to the principles of ALARA. CT DOSE: 1381.76 mGy.cm COMPARISON: Head CT 08/25/2018 FINDINGS: No acute intracranial hemorrhage, midline shift, intracranial mass, hydrocepha alessandro, territorial ischemia or abnormal extra-axial collection. Age-related involutional changes. White matter hypodensities suggestive of chronic microvascular ischemic disease, mildly progressed from the prior study. The calvarium is intact. Prior bilateral lens repair. The paranasal sinuses, mastoid air cells, and middle ear cavities are clear. IMPRESSION: No acute intracranial abnormality identified. ACT 112: Negative or not required by law. The above report was generated using voice recognition software. It may contain grammatical, syntax or spelling errors. Electronically signed by: Michele Maddox M.D. 05/19/2022 6:56 AM
[2022-05-19] MEDS ORDERED: LACTATED RINGER'S 1,000 ML IV SCH (16:00)
[2022-05-19] MEDS: CALCIUM 600MG + VIT D 400 IU TAB PO SCH (18:27)
[2022-05-20] MEDS: INSULIN ASPART PER UNIT SC SCH ×5 (00:10→20:26)
[2022-05-20 07:08] LABS: Basophils # (auto) 0.06 K/uL (0-0.2); Basophils % (auto) 0.6 %; Eosinophils % (auto) 2.8 %; Hematocrit (blood only) 26.2 % (34.1-44.9); Hemoglobin 8.1 g/dl (12.0-16.0); Immature Granulocytes # (auto) 0.06 K/uL (0.00-0.02); Immature Granulocytes % (auto) 0.6 %; Lymphocytes # (auto) 2.26 K/uL (1.2-3.4); Lymphocytes % (auto) 21.3 %; Mean Corpuscular Hemoglobin 25.6 pg (25.0-34.0); Mean Corpuscular Hgb Conc 30.9 g/dL (32.0-36.0); Mean Corpuscular Volume 82.9 fL (80.0-100.0); Mean Platelet Volume 10.1 fL (9.4-12.3); Monocytes # (auto) 0.77 K/uL (0.24-0.82); Monocytes % (auto) 7.2 %; Neutrophils # (auto) 7.18 K/uL (1.4-6.5); Neutrophils % (auto) 67.5 %; Platelet Count 240 K/uL (130-400); RDW Coefficient of Variation 16.1 % (11.5-14.5); RDW Standard Deviation 48.3 fL (36.4-46.3); Red Blood Count 3.16 M/uL (3.93-5.22); White Blood Count 10.63 K/ul (4.8-10.8)
--- NOTE | 2022-05-20 07:13 | Ultrasound Report ---
ULTRASOUND OF THE CAROTID ARTERIES CLINICAL HISTORY: Dizziness. COMPARISON STUDY: No priors. TECHNIQUE: Real-time, grayscale, and color Doppler sonography of the carotid arteries is performed. I mages are reviewed in the transverse and longitudinal planes. FINDINGS: The carotid arteries are patent bilaterally and demonstrate antegrade flow. There is mild atheroscler otic plaque seen the carotid bulbs. Normal doppler arterial waveforms are seen throughout. Velocity m easurements are listed below. The cardiac pulsations appear irregular. Common carotid peak systolic velocity (cm/sec): RIGHT: 101 LEFT: 143 ICA proximal peak systolic velocity (cm/sec): RIGHT: 70 LEFT: 79 ICA mid peak systolic velocity (cm/sec): RIGHT: 94 LEFT: 64 ICA distal peak systolic velocity (cm/sec): RIGHT: 56 LEFT: 71 ICA/CC peak systolic ratio: RIGHT: 0.9 LEFT: 0.6 Antegrade flow was shown in the vertebral arteries. The external carotid arteries are patent. IMPRESSION: 1. There is no sonographic evidence of hemodynamically significant stenosis in the right or left english tid arterial system. 2. Antegrade flow is shown in the vertebral arteries. 3. The cardiac pulsations appear irregular. Correlate with EKG for evidence of arrhythmia. ACT 112: Negative or not required by law. Electronically signed by: Kofi Lopez M.D. 05/20/2022 7:12 AM
[2022-05-20 07:25] LABS: Calcium 8.9 mg/dl (8.5-10.1); Creatinine Clr Calc Pharmacy 67.1 ml/min; Est GFR (African American) 75.5 ml/min; Est GFR (Non-African American) 65.2 ml/min; Potassium 4.8 mmol/L (3.5-5.1)
[2022-05-20] MEDS ORDERED: REGADENOSON 0.4 MG/5 ML SYR IV ONE (08:39)
[2022-05-20] MEDS: ATORVASTATIN 40 MG TAB PO SCH (08:47)
[2022-05-20] MEDS: PANTOprazole 40 MG TAB PO SCH (08:47)
[2022-05-20] MEDS: ASPIRIN 81 MG ECTAB PO SCH (08:47)
[2022-05-20] MEDS: APIXABAN 5 MG TABLET PO SCH ×2 (08:49→20:24)
[2022-05-20] MEDS: LANTUS PER UNIT CHARGE SQ SCH ×2 (08:55→20:26)
--- NOTE | 2022-05-20 09:00 | Electrocardiogram Report ---
Test Reason : Blood Pressure : / mmHG Vent. Rate : 103 BPM Atrial Rate : 107 BPM P-R Int : 000 ms QRS Dur : 064 ms QT Int : 340 ms P-R-T Axes : 000 -26 -12 degrees QTc Int : 445 ms Atrial fibrillation with rapid ventricular response Low voltage QRS Diffuse Nonspecific T wave abnormality Abnormal ECG When compared with ECG of 19-MAY-2022 06:01, Electronic ventricular pacemaker no longer apparent Confirmed by Neftaly Prather ([id number]) on 05/20/2022 8:59:59 AM Referred By: REFERRED SELF Confirmed By:Neftaly Prather
--- NOTE | 2022-05-20 10:28 | Cardiology Progress Note ---
Date of Service May 20, 2022 Assessment & Plan (1) Chest pain: (2) Atrial fibrillation with rapid ventricular response: Plan: * Proceed with Lexiscan stress test today. * She is on aspirin and Eliquis on a chronic basis with noted mild anemia. * Volume status appears stable and agree with continuing home dose of Entresto and torsemide. -Likely plan on increasing her digoxin to 0.125 mg every day. Admission and Anticipated Discharge Date Admission Date: May 19, 2022 Subjective Patient seen in cardiology follow-up. Notes generalized tiredness, but no chest discomfort. Telemetry reveals atrial fibrillation with ventricular rate in the range of 100 to 115 bpm. Physical Exam Constitutional: + obese; no acute distress Respiratory: normal respiratory effort, lungs clear to auscultation Cardiovascular: Rate/Rhythm: + irregularly irregular Heart Sounds: normal S1 and normal S2; no murmur Extremities: + edema (1+ chronic lower extremity edema due to venous insufficiency, stable) Gastrointestinal (Abdomen): normal bowel sounds, soft, nontender, no hepatosplenomegaly Neurologic: PERRL, EOMI, accommodation nl, no face palsy, no dysarthria Results & Data ([facility]) Vital Signs (Past 12 Hours) Vital Signs Temp Pulse Pulse Resp BP BP Pulse Ox 05/20/22 06:59 36.8 C 103 H 20 102/70 93 05/20/22 01:45 103 H 05/19/22 23:00 36.8 C 90 16 94/43 L 96 O2 Del Method 05/20/22 06:59 Room Air 05/20/22 01:45 05/19/22 23:00 Room Air Laboratory Results Cardiac Enzymes 05/19/22 05/19/22 Range/Units 11:02 16:43 Troponin I High Sens 6.7 7.1 (0-14) pg/ml CBC 05/20/22 Range/Units 06:29 WBC 10.63 (4.8-10.8) K/ul RBC 3.16 L (3.93-5.22) M/uL Hgb 8.1 L (12.0-16.0) g/dl Hct 26.2 L (34.1-44.9) % Plt Count 240 (130-400) K/uL Neut # (Auto) 7.18 H (1.4-6.5) K/uL Lymph # (Auto) 2.26 (1.2-3.4) K/uL [place] # (Auto) 0.77 (0.24-0.82) K/uL Eos # (Auto) 0.30 (0-0.50) K/uL Baso # (Auto) 0.06 (0-0.2) K/uL Comprehensive Metabolic Panel 05/20/22 Range/Units 06:29 Sodium 141 (136-145) mmol/L Potassium 4.8 (3.5-5.1) mmol/L Chloride 109 H (98-107) mmol/L Carbon Dioxide 28 (21-32) mmol/L BUN 37 H (6-23) mg/dl Creatinine 0.86 (0.6-1.2) mg/dl Glucose 103 H (70-99(Fasting)) mg/dl Calcium 8.9 (8.5-10.1) mg/dl
[2022-05-20] MEDS: MAGNESIUM OXIDE 400 MG TAB PO SCH (13:08)
[2022-05-20] MEDS: VALSARTAN/SACUBITRIL 26/24MG TAB PO SCH ×2 (13:08→20:25)
[2022-05-20] MEDS: MULTIVITAMIN TAB PO SCH (13:09)
[2022-05-20] MEDS: METOPROLOL SUCC 50MG EXT REL TAB PO SCH ×2 (13:09→20:24)
[2022-05-20] MEDS: OXYBUTYNIN CHLORIDE 5 MG TAB PO SCH ×2 (13:10→20:25)
--- NOTE | 2022-05-20 14:15 | Neurology Progress Note ---
Date of Service May 20, 2022 Assessment & Plan (1) Orthostatic hypotension: Plan: Impression: The patient has been suffering from postural lightheadedness, which affects her ambulation as well. Orthostatics was suggestive of postural hypotension with poor response of heart rate. The patient has extensive cardiac history on high-dose beta-blockers. Today she still c/o lightheadedness after standing up. Plan/recommendations: Management of postural hypotension. Keep checking orthostatics and with documentation. Carotid US--unremarkable. --Cardiac scan was done with pending result If the patient's dizziness persists after improvement of postural hypotension and cardiac work up then we would recommend brain MRI/MRA to rule out posterior circulation ischemic event which seems to be unlikely at this time. Physical therapy and Occupational Therapy. --f/u at neurology clinic. i will inform [facility] neurology to set up a f/u appointment. (2) Atrial fibrillation with rapid ventricular response: Plan: Impression: The patient presented emergency department with atrial fibrillation with rapid ventricular response. Heart rate has been controlled since admission. However, the patient still feels dizzy and lightheaded after standing up. Plan/recommendations: Cardiology is on board. (3) Chest pain: (4) Ischemic cardiomyopathy: (5) Acute on chronic diastolic (congestive) heart failure: (6) Tachy-barbra syndrome: (7) Diabetic polyneuropathy: Plan: Impression: The patient has long history of diabetes and related polyneuropathy affecting bilateral lower extremities distally. The patient denies any recent change of sensory symptoms. Plan/recommendations: Blood sugar control. Fall precautions. (8) Physical deconditioning: Plan: Impression: The patient has been sedentary with limited ambulation. Today's physical examination suggest proximal muscle weakness symmetrically, consistent with general deconditioning. Myopathic process is less likely. Plan/recommendations: We will check the CPK level to investigate for muscle breakdown. Physical therapy and Occupational Therapy. Fall precautions. Patient might need inpatient rehabilitation. Admission and Anticipated Discharge Date Admission Date: May 19, 2022 Subjective The patient still feels dizzy, whenever she stands up. Some of her home medications were adjusted. Myocardial perfusion scan was recently completed with pending report. Heart rate has been stable. They have not checked orthostatics today. The patient denies any new neurological symptoms. She has been symptom- free in sitting and supine positions. Review of Systems Review of Systems: All systems reviewed & are unremarkable except as noted in HPI & below Physical Exam Physical Exam: General Examination: Constitutional: Well developed morbidly obese person in no acute distress. HEENT: Normal exam with inspection. CV: Hearth rhythm is irregular. Neck: Supple, no carotid bruits. Lungs: Non-labored and comfortable breathing. Abdomen: Soft, non-tender, non-distended. Skin: No rash or ecchymosis. Extremities: Bilateral foot and ankle edema NEUROLOGICAL EXAMINATION: Mental Status: Alert and oriented to place, person and time. Cranial Nerves: II-XII are intact. No nystagmus. Funduscopy: Normal looking optic discs. Motor: 5/5 BC, TC, intrinsic hand muscles and ankle dorsiflexors symmetrically. Bilateral deltoids are 4+/5. left knee extensors are 4-/5 partially due to knee pain. Righ knee extensors are 4+/5. Tone: Normal without spasticity or rigidity. Sensory: Decreased sensation in distal lower extremities up to knees symmetrically DTRs: 2- in upper extremities, trace in knees and absent in ankles. No Babinski. Coordination: No dysmetria with FTN testing. Speech: Fluent. Comprehension is intact. Gait: She can stands up independently but cannot walk with lightheadedness. Musculoskeletal: Normal muscle bulk, no atrophy. Results & Data ([facility]) Vital Signs (Past 12 Hours) Vital Signs Temp Pulse Pulse Resp BP Pulse Ox O2 Del Method 05/20/22 13:06 36.4 C L 102 H 20 135/70 100 Room Air 05/20/22 08:00 85 05/20/22 06:59 36.8 C 103 H 20 102/70 93 Room Air Laboratory Results Laboratory Results - last 24 hr 05/19/22 05/19/22 05/19/22 14:37 16:27 16:43 WBC RBC Hgb Hct MCV MCH MCHC RDW Std Deviation RDW Coeff of [place] Plt Count MPV Immature Gran % (Auto) Neut % (Auto) Lymph % (Auto) [place] % (Auto) Eos % (Auto) Baso % (Auto) Neut # (Auto) Lymph # (Auto) [place] # (Auto) Eos # (Auto) Baso # (Auto) Immature Gran # (Auto) Sodium Potassium Chloride Carbon Dioxide Anion Gap BUN Creatinine Est Cr Clr Drug Dosing Est GFR ( Amer) Est GFR (Non-Af Amer) BUN/Creatinine Ratio Glucose POC Glucose 142 H Calcium Total Creatine Kinase 29 Troponin I High Sens 7.1 05/19/22 05/20/22 05/20/22 20:32 00:09 06:29 WBC 10.63 RBC 3.16 L Hgb 8.1 L Hct 26.2 L MCV 82.9 MCH 25.6 MCHC 30.9 L RDW Std Deviation 48.3 H RDW Coeff of [place] 16.1 H Plt Count 240 MPV 10.1 Immature Gran % (Auto) 0.6 Neut % (Auto) 67.5 Lymph % (Auto) 21.3 [place] % (Auto) 7.2 Eos % (Auto) 2.8 Baso % (Auto) 0.6 Neut # (Auto) 7.18 H Lymph # (Auto) 2.26 [place] # (Auto) 0.77 Eos # (Auto) 0.30 Baso # (Auto) 0.06 Immature Gran # (Auto) 0.06 H Sodium Potassium Chloride Carbon Dioxide Anion Gap BUN Creatinine Est Cr Clr Drug Dosing Est GFR ( Amer) Est GFR (Non-Af Amer) BUN/Creatinine Ratio Glucose POC Glucose 158 H 131 H Calcium Total Creatine Kinase Troponin I High Sens 05/20/22 05/20/22 05/20/22 06:29 06:29 12:46 WBC RBC Hgb Hct MCV MCH MCHC RDW Std Deviation RDW Coeff of [place] Plt Count MPV Immature Gran % (Auto) Neut % (Auto) Lymph % (Auto) [place] % (Auto) Eos % (Auto) Baso % (Auto) Neut # (Auto) Lymph # (Auto) [place] # (Auto) Eos # (Auto) Baso # (Auto) Immature Gran # (Auto) Sodium 141 Potassium 4.8 Chloride 109 H Carbon Dioxide 28 Anion Gap 4 BUN 37 H Creatinine 0.86 Est Cr Clr Drug Dosing 67.1 Est GFR ( Amer) 75.5 Est GFR (Non-Af Amer) 65.2 BUN/Creatinine Ratio 43.0 H Glucose 103 H POC Glucose 107 H 136 H Calcium 8.9 Total Creatine Kinase Troponin I High Sens Diagnostic Findings Chest X-Ray 05/18/22 16:10 SINGLE VIEW CHEST CLINICAL HISTORY: Atypical chest pain. FINDINGS: An AP, portable, upright chest radiograph is compared to study dated 04/11/2020 and correlated with chest CT dated 12/19/2018. A 2-lead cardiac pacemaker is unchanged in position. The heart is mildly enlarged noting atherosclerotic calcification of the thoracic aorta. The pulmonary vasculature is noncongested. There is chronic elevation of the right hemidiaphragm with bibasilar scarring/atelectasis. Chronic interstitial thickening is similar to previous. The lungs and pleural spaces are otherwise clear. No pneumothorax is seen. The skeletal structures are osteopenic. The bony thorax is grossly intact. Postsurgical change is noted in the right shoulder. Cholecystectomy clips are seen in the right upper quadrant. IMPRESSION: No acute cardiopulmonary abnormality. ACT 112: Negative or not required by law. Electronically signed by: Kofi Lopez M.D. 05/18/2022 4:[address] 05/18/22 20:31 CT head/brain wo con CLINICAL HISTORY: 76 years-old Female with dizzy/imbalance. Acute dizziness with weakness TECHNIQUE: Multiple axial CT images of the head were obtained without contrast. A dose lowering technique was utilized adhering to the principles of ALARA. CT DOSE: 1381.76 mGy.cm COMPARISON: Head CT 08/25/2018 FINDINGS: No acute intracranial hemorrhage, midline shift, intracranial mass, hydrocephalus, territorial ischemia or abnormal extra-axial collection. Age- related involutional changes. White matter hypodensities suggestive of chronic microvascular ischemic disease, mildly progressed from the prior study. The calvarium is intact. Prior bilateral lens repair. The paranasal sinuses, mastoid air cells, and middle ear cavities are clear. IMPRESSION: No acute intracranial abnormality identified. ACT 112: Negative or not required by law. The above report was generated using voice recognition software. It may contain grammatical, syntax or spelling errors. Electronically signed by: Michele Maddox M.D. 05/19/2022 6:56 AM Carotid Doppler Study 05/19/22 14:29 ULTRASOUND OF THE CAROTID ARTERIES CLINICAL HISTORY: Dizziness. COMPARISON STUDY: No priors. TECHNIQUE: Real-time, grayscale, and color Doppler sonography of the carotid arteries is performed. Images are reviewed in the transverse and longitudinal planes. FINDINGS: The carotid arteries are patent bilaterally and demonstrate antegrade flow. There is mild atherosclerotic plaque seen the carotid bulbs. Normal doppler arterial waveforms are seen throughout. Velocity measurements are listed below. The cardiac pulsations appear irregular. Common carotid peak systolic velocity (cm/sec): RIGHT: 101 LEFT: 143 ICA proximal peak systolic velocity (cm/sec): RIGHT: 70 LEFT: 79 ICA mid peak systolic velocity (cm/sec): RIGHT: 94 LEFT: 64 ICA distal peak systolic velocity (cm/sec): RIGHT: 56 LEFT: 71 ICA/CC peak systolic ratio: RIGHT: 0.9 LEFT: 0.6 Antegrade flow was shown in the vertebral arteries. The external carotid arteries are patent. IMPRESSION: 1. There is no sonographic evidence of hemodynamically significant stenosis in the right or left carotid arterial system. 2. Antegrade flow is shown in the vertebral arteries. 3. The cardiac pulsations appear irregular. Correlate with EKG for evidence of arrhythmia. ACT 112: Negative or not required by law. Electronically signed by: Kofi Lopez M.D. 05/20/2022 7:12 AM
[2022-05-20] MEDS ORDERED: bisacodyL 5 MG TABEC PO ONE ×2 (14:35→17:03)
--- NOTE | 2022-05-20 14:56 | Myocardial Perfusion Study ---
Date of Service May 20, 2022 Myocardial Perfusion Study [facility] Myocardial Perfusion Study Report Procedure: 1. Myocardial perfusion study performed in multiple views/images 2. Lexiscan pharmacologic stress ECG Indications: 1. Chest discomfort 2. Persistent atrial fibrillation 3. History of LAD stent Ordering physician: Tristian Vaca DO Procedural details: For the stress portion of the study, Lexiscan 0.4 mg was intravenously administered followed by a saline flush. This was followed by 31.58 mCi of technetium 99m Cardiolite, injected at 11:40 AM on 05/20/2022. 30 minutes following the injection, imaging of the heart was performed in multiple projections. For the rest portion of the study, 10.52 mCi technetium 99m Cardiolite was injected intravenously at 9:15 AM, 05/20/2022. 1 hour following the injection, imaging of the heart was performed in the same projections. Lexiscan stress ECG: Resting ECG demonstrated: Atrial fibrillation at 100 bpm with nonspecific T wave flattening. Maximum heart rate: 126 bpm Maximal, age-predicted heart rate: 88% Resting blood pressure: 98/73 mmHg Maximum blood pressure: 120/[address] changes: The stress EKG response is negative for ischemia Arrhythmia: Persistent atrial fibrillation noted throughout study Symptoms: No symptoms were reported Findings: Rotating raw imaging demonstrated no significant lung uptake. There is no significant motion artifact. Heart size appeared normal. Myocardial perfusion demonstrated normal stress and resting perfusion. Ejection fraction:60% Wall motion: normal No significant transient ischemic dilation. Impression: The Lexiscan myocardial perfusion imaging study has normal with no evidence of scar or inducible ischemia. Left ventricular ejection fraction is normal, 60% by the gated SPECT technique.
--- NOTE | 2022-05-20 15:03 | Communication Note ---
Date of Service: May 20, 2022 Negative nuclear stress. Plan increase digoxin to 0.125 mg daily instead of 3 days per week for additional HR control. Continue chronic metoprolol dose. Pt weighs herself daily in am at home with home wt of 250-258 lbs. Notes symptoms of dizziness when she stands from seated position consistent with orthostatic hypotension. Rather than taking torsemide 20 mg twice daily, will reduce the dose to 20 mg once a day on Mondays, Wednesdays, and Fridays, and 20 mg twice daily the remaining days of the week. Patient to keep an eye out on her daily weights and on her degree of swelling, and take an extra torsemide as needed. Patient to remain in the hospital pending physical therapy assessment and treatment. We will reassess tomorrow.
[2022-05-20] MEDS: CALCIUM 600MG + VIT D 400 IU TAB PO SCH (17:08)
[2022-05-20] MEDS: DIGOXIN 0.125 MG TAB PO SCH (20:25)
--- NOTE | 2022-05-20 23:22 | Hospitalist Progress Note ---
Date of Service May 20, 2022 Assessment & Plan (1) Postural dizziness with presyncope: (2) Chest pain: (3) Atrial fibrillation with rapid ventricular response: Plan A 76-year-old female with past medical history significant for type 2 diabetes, hyperlipidemia, paroxysmal atrial fibrillation, history of CAD, chronic systolic CHF- post-TX, morbid obesity, chronic kidney disease stage III, generalized osteoarthrosis, lymphedema of both lower extremities, depression, presents with chest pain and dizziness. Dizziness secondary to postural hypotension Chest pain, ACS ruled out A. fib with RVR Afebrile, hypotensive and saturating well in room air Orthostatic positive CT headno acute intracranial abnormality High sensitive troponin negative EKG shows A. fib with RVR Echo shows EF of 55 to 60% Due to postural hypotension cardiology recommended to decrease torsimide 20mg daily on // and others days BID Neurology on board for dizziness; recommend carotid bilateral. They also recommend further imaging if dizziness does not improve with improvement in postural hypotension Cardiology on board; continue on metoprolol for rate control. Continue on Eliquis. Digoxin added today for rate control Anemia,- hemoglobin 8.1 today, baseline at 8.5. Her BUN is also elevated. She reports no changes in color of her stool. continue PPI Hyperlipidemia: On statin. Hypertension: On metoprolol, Entresto, diuretics. Continue monitor the blood pressure. Deep venous thrombosis prophylaxis: On Eliquis. DISPOSITION: Closely monitor in the tele floor. Level 1 Admission and Anticipated Discharge Date Admission Date: May 19, 2022 Subjective Pt was seen and examined for follow up. Sitting in chair with no acute distress. Pt said that her breathing improved She said that she is having the fear to go home because she does not want to start having dizziness again. Denies any chest pain, palpitation and SOB Review of Systems Review of Systems: All systems reviewed & are unremarkable except as noted in Subjective Physical Exam Physical Exam: General- No acute distress Head- atraumatic Eyes- PERRL, EOMI, ENT- oropharynx clear Neck- supple, no JVD Lungs- clear to auscultation Heart- irregular rhythm Abdomen- normal bowel sounds, soft, nontender Extremities- no calf tenderness Neuro- alert, oriented x 3; PERRL, EOMI; no facial palsy; no dysarthria Skin- warm & dry Results & Data Results & Data ([facility]) Vital Signs (Past 12 Hours) Vital Signs Temp Pulse Pulse Pulse Resp BP BP 05/20/22 22:13 70 05/20/22 22:53 36.4 C L 96 H 18 118/75 05/20/22 20:25 70 05/20/22 19:05 36.5 C 69 18 112/76 05/20/22 16:00 88 05/20/22 15:04 36.3 C L 119 H 19 98/45 L 05/20/22 13:06 36.4 C L 102 H 20 135/70 Pulse Ox O2 Del Method 05/20/22 22:13 05/20/22 22:53 97 Room Air 05/20/22 20:25 05/20/22 19:05 98 Room Air 05/20/22 16:00 05/20/22 15:04 92 Room Air 05/20/22 13:06 100 Room Air
[2022-05-21] MEDS: ACETAMINOPHEN 325 MG TAB PO PRN (03:01)
[2022-05-21 07:45] LABS: BUN Creatinine Ratio 31.5 (10-20); Calcium 8.6 mg/dl (8.5-10.1); Creatinine Clr Calc Pharmacy 79.1 ml/min; Est GFR (African American) 92.1 ml/min; Est GFR (Non-African American) 79.4 ml/min; Potassium 4.8 mmol/L (3.5-5.1)
[2022-05-21] MEDS: INSULIN ASPART PER UNIT SC SCH ×4 (08:10→21:41)
[2022-05-21] MEDS: ATORVASTATIN 40 MG TAB PO SCH (08:11)
[2022-05-21] MEDS: LANTUS PER UNIT CHARGE SQ SCH ×2 (08:11→21:12)
[2022-05-21] MEDS: PANTOprazole 40 MG TAB PO SCH (08:11)
[2022-05-21] MEDS: ASPIRIN 81 MG ECTAB PO SCH (08:12)
[2022-05-21] MEDS: APIXABAN 5 MG TABLET PO SCH ×2 (08:12→19:42)
[2022-05-21] MEDS: METOPROLOL SUCC 50MG EXT REL TAB PO SCH ×2 (08:12→19:44)
[2022-05-21] MEDS: VALSARTAN/SACUBITRIL 26/24MG TAB PO SCH ×2 (08:12→19:43)
[2022-05-21] MEDS: OXYBUTYNIN CHLORIDE 5 MG TAB PO SCH ×2 (08:12→19:43)
--- NOTE | 2022-05-21 10:21 | Cardiology Progress Note ---
Date of Service May 21, 2022 Assessment & Plan (1) Chest pain: Plan: -improved. -negative chest pain (2) Atrial fibrillation with rapid ventricular response: Plan: -Continue Eliquis -Continue [employer] metoprolol succinate 150 mg q am, 100 q pm. -Digoxin 0.125 mg . frequency increased to daily (3) Postural dizziness with presyncope: Plan: -resume torsemide 20 mg one time per day today. -For discharge, rather than taking torsemide 20 mg twice daily, will reduce the dose to 20 mg once a day on Mondays, Wednesdays, and Fridays, and 20 mg twice daily the remaining days of the week. -Agree with Physical therapy evaluation. Pt interested in home PT if she qualifies. -lives alone. Admission and Anticipated Discharge Date Admission Date: May 19, 2022 Subjective Pt seen in cardiology follow up . She notes no chest pain or SOB. Denies dizziness. Notes generalized weakness. Telemetry =AF in the 80s to 90s (rate improved compared to yesterday) Physical Exam Constitutional: + obese; no acute distress Respiratory: normal respiratory effort, lungs clear to auscultation Cardiovascular: Rate/Rhythm: + irregularly irregular Heart Sounds: normal S1 and normal S2; no murmur Extremities: + edema (1+ chronic lower extremity edema due to venous insufficiency, stable) Gastrointestinal (Abdomen): normal bowel sounds, soft, nontender, no hepatosplenomegaly Neurologic: PERRL, EOMI, accommodation nl, no face palsy, no dysarthria Results & Data ([facility]) Vital Signs (Past 12 Hours) Vital Signs Temp Pulse Pulse Resp BP BP Pulse Ox 05/21/22 07:38 36.6 C 73 18 97/66 L 98 05/21/22 07:08 93 H 05/21/22 03:16 36.6 C 99 H 18 117/56 L 97 05/20/22 22:53 36.4 C L 96 H 18 118/75 97 O2 Del Method 05/21/22 07:38 Room Air 05/21/22 07:08 05/21/22 03:16 Room Air 05/20/22 22:53 Room Air Laboratory Results Comprehensive Metabolic Panel 05/21/22 Range/Units 06:03 Sodium 141 (136-145) mmol/L Potassium 4.8 (3.5-5.1) mmol/L Chloride 110 H (98-107) mmol/L Carbon Dioxide 28 (21-32) mmol/L BUN 23 (6-23) mg/dl Creatinine 0.73 (0.6-1.2) mg/dl Glucose 113 H (70-99(Fasting)) mg/dl Calcium 8.6 (8.5-10.1) mg/dl Intake and Output 05/20/22 05/21/22 05/21/22 22:59 06:59 14:59 Output Total 300 / 1900 800 / 1900 Balance -300 / -1420 -800 / -1420 Output: Urine 300 / 1900 800 / 1900 Other: Weight 115.5 kg Weight Measurement Method Built in [facility]
[2022-05-21] MEDS: MULTIVITAMIN TAB PO SCH (10:55)
[2022-05-21] MEDS: TORSEMIDE 10 MG TAB PO SCH (10:55)
[2022-05-21] MEDS: MAGNESIUM OXIDE 400 MG TAB PO SCH (10:55)
--- NOTE | 2022-05-21 16:14 | Neurology Progress Note ---
Date of Service May 21, 2022 Assessment & Plan (1) Orthostatic hypotension: Plan: Impression: The patient has been suffering from postural lightheadedness, which affects her ambulation as well. Orthostatics was suggestive of postural hypotension with poor response of heart rate. The patient has extensive cardiac history on high-dose beta-blockers and other cardiac meds. After adjustment of cardiac medications, the patient has been doing much better. She is able to stand up and walk with walker independently without much lightheadedness today Plan/recommendations: --The patient is neurologically stable and very close to her baseline. She can be discharged home with outpatient physical therapy. --f/u at neurology clinic. I informed [facility] neurology to set up a f/u appointment. (2) Atrial fibrillation with rapid ventricular response: Plan: Impression: The patient presented emergency department with atrial fibrillation with rapid ventricular response. Heart rate has been controlled since admission. However, the patient still feels dizzy and lightheaded after standing up. Plan/recommendations: Cardiology is on board. (3) Chest pain: (4) Ischemic cardiomyopathy: (5) Acute on chronic diastolic (congestive) heart failure: (6) Tachy-barbra syndrome: (7) Diabetic polyneuropathy: Plan: Impression: The patient has long history of diabetes and related polyneuropathy affecting bilateral lower extremities distally. The patient denies any recent change of sensory symptoms. Plan/recommendations: Blood sugar control. Fall precautions. (8) Physical deconditioning: Plan: Impression: The patient has been sedentary with limited ambulation. Today's physical examination suggest proximal muscle weakness symmetrically, consistent with general deconditioning. Myopathic process is less likely. Plan/recommendations: Physical therapy and Occupational Therapy. Fall precautions. Plan We will sign off. Admission and Anticipated Discharge Date Admission Date: May 19, 2022 Subjective The patient reports that after changing some of her cardiac medications, she has been feeling much better today. She can ambulate with a walker. Her postural lightheadedness has been improved significantly but still, she gets very mild dizzy feeling while walking. She denies any new neurological symptoms. Review of Systems Review of Systems: All systems reviewed & are unremarkable except as noted in HPI & below Physical Exam Physical Exam: General Examination: Constitutional: Well developed morbidly obese person in no acute distress. HEENT: Normal exam with inspection. CV: Hearth rhythm is irregular. Neck: Supple, no carotid bruits. Lungs: Non-labored and comfortable breathing. Abdomen: Soft, non-tender, non-distended. Skin: No rash or ecchymosis. Extremities: Bilateral foot and ankle edema NEUROLOGICAL EXAMINATION: Mental Status: Alert and oriented to place, person and time. Cranial Nerves: II-XII are intact. No nystagmus. Funduscopy: Normal looking optic discs. Motor: 5/5 BC, TC, intrinsic hand muscles and ankle dorsiflexors symmetrically. Bilateral deltoids are 4+/5. left knee extensors are 4-/5 partially due to knee pain. Righ knee extensors are 4+/5. Tone: Normal without spasticity or rigidity. Sensory: Decreased sensation in distal lower extremities up to knees symmetrically DTRs: 2- in upper extremities, trace in knees and absent in ankles. No Babinski. Coordination: No dysmetria with FTN testing. Speech: Fluent. Comprehension is intact. Gait: She can stands up and walk with walker independently. She is very close to her baseline. Musculoskeletal: Normal muscle bulk, no atrophy. Results & Data ([facility]) Vital Signs (Past 12 Hours) Vital Signs Temp Pulse Pulse Resp BP Pulse Ox O2 Del Method 05/21/22 15:00 36.5 C 88 18 129/64 97 05/21/22 11:53 36.5 C 78 18 114/74 99 Room Air 05/21/22 07:38 36.6 C 73 18 97/66 L 98 Room Air 05/21/22 07:08 93 H Laboratory Results Laboratory Results - last 24 hr 05/20/22 05/20/22 05/21/22 16:06 20:02 06:03 Sodium 141 Potassium 4.8 Chloride 110 H Carbon Dioxide 28 Anion Gap 3 BUN 23 Creatinine 0.73 Est Cr Clr Drug Dosing 79.1 Est GFR ( Amer) 92.1 Est GFR (Non-Af Amer) 79.4 BUN/Creatinine Ratio 31.5 H Glucose 113 H POC Glucose 171 H 142 H Calcium 8.6 05/21/22 05/21/22 07:16 11:22 Sodium Potassium Chloride Carbon Dioxide Anion Gap BUN Creatinine Est Cr Clr Drug Dosing Est GFR ( Amer) Est GFR (Non-Af Amer) BUN/Creatinine Ratio Glucose POC Glucose 140 H 163 H Calcium Diagnostic Findings Chest X-Ray 05/18/22 16:10 SINGLE VIEW CHEST CLINICAL HISTORY: Atypical chest pain. FINDINGS: An AP, portable, upright chest radiograph is compared to study dated 04/11/2020 and correlated with chest CT dated 12/19/2018. A 2-lead cardiac pac emaker is unchanged in position. The heart is mildly enlarged noting atherosclerotic calcification of the thoracic aorta. The pulmonary vasculature is noncongested. There is chronic elevation of the right hemidiaphragm with bibasilar scarring/atelectasis. Chronic interstitial thickening is similar to previous. The lungs and pleural spaces are otherwise clear. No pneumothorax is seen. The skeletal structures are osteopenic. The bony thorax is grossly intact. Postsurgical change is noted in the right shoulder. Cholecystectomy clips are seen in the right upper quadrant. IMPRESSION: No acute cardiopulmonary abnormality. ACT 112: Negative or not required by law. Electronically signed by: Kofi Lopez M.D. 05/18/2022 4:[address] 05/18/22 20:31 CT head/brain wo con CLINICAL HISTORY: 76 years-old Female with dizzy/imbalance. Acute dizziness with weakness TECHNIQUE: Multiple axial CT images of the head were obtained without contrast. A dose lowering technique was utilized adhering to the principles of ALARA. CT DOSE: 1381.76 mGy.cm COMPARISON: Head CT 08/25/2018 FINDINGS: No acute intracranial hemorrhage, midline shift, intracranial mass, hydrocephalus, territorial ischemia or abnormal extra-axial collection. Age- related involutional changes. White matter hypodensities suggestive of chronic microvascular ischemic disease, mildly progressed from the prior study. The calvarium is intact. Prior bilateral lens repair. The paranasal sinuses, mastoid air cells, and middle ear cavities are clear. IMPRESSION: No acute intracranial abnormality identified. ACT 112: Negative or not required by law. The above report was generated using voice recognition software. It may contain grammatical, syntax or spelling errors. Electronically signed by: Michele Maddox M.D. 05/19/2022 6:56 AM Carotid Doppler Study 05/19/22 14:29 ULTRASOUND OF THE CAROTID ARTERIES CLINICAL HISTORY: Dizziness. COMPARISON STUDY: No priors. TECHNIQUE: Real-time, grayscale, and color Doppler sonography of the carotid arteries is performed. Images are reviewed in the transverse and longitudinal planes. FINDINGS: The carotid arteries are patent bilaterally and demonstrate antegrade flow. There is mild atherosclerotic plaque seen the carotid bulbs. Normal doppler arterial waveforms are seen throughout. Velocity measurements are listed below. The cardiac pulsations appear irregular. Common carotid peak systolic velocity (cm/sec): RIGHT: 101 LEFT: 143 ICA proximal peak systolic velocity (cm/sec): RIGHT: 70 LEFT: 79 ICA mid peak systolic velocity (cm/sec): RIGHT: 94 LEFT: 64 ICA distal peak systolic velocity (cm/sec): RIGHT: 56 LEFT: 71 ICA/CC peak systolic ratio: RIGHT: 0.9 LEFT: 0.6 Antegrade flow was shown in the vertebral arteries. The external carotid arteries are patent. IMPRESSION: 1. There is no sonographic evidence of hemodynamically significant stenosis in the right or left carotid arterial system. 2. Antegrade flow is shown in the vertebral arteries. 3. The cardiac pulsations appear irregular. Correlate with EKG for evidence of arrhythmia. ACT 112: Negative or not required by law. Electronically signed by: Kofi Lopez M.D. 05/20/2022 7:12 AM
[2022-05-21] MEDS: CALCIUM 600MG + VIT D 400 IU TAB PO SCH (17:21)
[2022-05-21] MEDS: DIGOXIN 0.125 MG TAB PO SCH (19:42)
--- NOTE | 2022-05-21 23:54 | Hospitalist Progress Note ---
Date of Service May 21, 2022 Assessment & Plan (1) Postural dizziness with presyncope: (2) Chest pain: (3) Atrial fibrillation with rapid ventricular response: Plan A 76-year-old female with past medical history significant for type 2 diabetes, hyperlipidemia, paroxysmal atrial fibrillation, history of CAD, chronic systolic CHF- post-HI, morbid obesity, chronic kidney disease stage III, generalized osteoarthrosis, lymphedema of both lower extremities, depression, presents with chest pain and dizziness. Dizziness secondary to postural hypotension Chest pain, ACS ruled out A. fib with RVR Afebrile, hypotensive and saturating well in room air Orthostatic positive CT headno acute intracranial abnormality High sensitive troponin negative EKG shows A. fib with RVR Echo shows EF of 55 to 60% Due to postural hypotension cardiology recommended to decrease torsimide 20mg daily on // and others days BID Neurology on board for dizziness; recommend carotid bilateral. They also recommend further imaging if dizziness does not improve with improvement in postural hypotension Cardiology on board; continue on metoprolol for rate control. Continue on Eliquis. Continue Digoxin daily Anemia,- hemoglobin 8.1 today, baseline at 8.5. Her BUN is also elevated. She reports no changes in color of her stool. continue PPI Hyperlipidemia: On statin. Hypertension: On metoprolol, Entresto, diuretics. Continue monitor the blood pressure. Deep venous thrombosis prophylaxis: On Eliquis. Weakness Continue PT/OT Plan to go to rehab DISPOSITION: Closely monitor in the tele floor. Level 1 Admission and Anticipated Discharge Date Admission Date: May 19, 2022 Subjective Pt was seen and examined for follow up dizziness Lying in bed with no acute distress Pt said that she feels weak today Denies any chest pain, palpitation, dizziness and SOB Review of Systems Review of Systems: All systems reviewed & are unremarkable except as noted in Subjective Physical Exam Physical Exam: General- No acute distress Head- atraumatic Eyes- PERRL, EOMI, ENT- oropharynx clear Neck- supple, no JVD Lungs- clear to auscultation Heart- irregular rhythm Abdomen- normal bowel sounds, soft, nontender Extremities- no calf tenderness Neuro- alert, oriented x 3; PERRL, EOMI; no facial palsy; no dysarthria Skin- warm & dry Results & Data Results & Data ([facility]) Vital Signs (Past 12 Hours) Vital Signs Temp Pulse Pulse Resp BP BP Pulse Ox 05/21/22 23:38 36.4 C L 67 18 108/65 92 05/21/22 19:42 73 05/21/22 19:40 36.5 C 73 16 92/65 L 100 05/21/22 15:00 36.5 C 88 18 129/64 97 05/21/22 11:53 36.5 C 78 18 114/74 99 O2 Del Method 05/21/22 23:38 Room Air 05/21/22 19:42 05/21/22 19:40 Room Air 05/21/22 15:00 05/21/22 11:53 Room Air
[2022-05-22] MEDS: ATORVASTATIN 40 MG TAB PO SCH (08:03)
[2022-05-22] MEDS: VALSARTAN/SACUBITRIL 26/24MG TAB PO SCH ×2 (08:03→20:57)
[2022-05-22] MEDS: ASPIRIN 81 MG ECTAB PO SCH (08:03)
[2022-05-22] MEDS: PANTOprazole 40 MG TAB PO SCH (08:04)
[2022-05-22] MEDS: TORSEMIDE 10 MG TAB PO SCH (08:04)
[2022-05-22] MEDS: APIXABAN 5 MG TABLET PO SCH ×2 (08:04→20:57)
[2022-05-22] MEDS: OXYBUTYNIN CHLORIDE 5 MG TAB PO SCH ×2 (08:04→20:56)
[2022-05-22] MEDS: METOPROLOL SUCC 50MG EXT REL TAB PO SCH ×2 (08:05→20:55)
[2022-05-22] MEDS: LANTUS PER UNIT CHARGE SQ SCH ×2 (08:17→21:01)
[2022-05-22] MEDS: INSULIN ASPART PER UNIT SC SCH ×4 (08:17→20:58)
[2022-05-22] MEDS: MULTIVITAMIN TAB PO SCH (12:12)
[2022-05-22] MEDS: MAGNESIUM OXIDE 400 MG TAB PO SCH (12:12)
--- NOTE | 2022-05-22 14:09 | Cardiology Progress Note ---
Date of Service May 22, 2022 Assessment & Plan (1) Chest pain: Plan: -improved. -negative nuclear stress test. (2) Atrial fibrillation with rapid ventricular response: Plan: -Continue Eliquis -Continue [employer] metoprolol succinate 150 mg q am, 100 q pm. -Digoxin 0.125 mg . frequency increased to daily (3) Postural dizziness with presyncope: Plan: -resume torsemide 20 mg one time per day today. -For discharge, rather than taking torsemide 20 mg twice daily, will reduce the dose to 20 mg once a day on Mondays, Wednesdays, and Fridays, and 20 mg twice daily the remaining days of the week. With extra dose as need for edema/ weight gain. -Systolic blood pressure for the most part) 100 mmHg which has been her recent baseline. Occasional measurements down to the 70s and 80s. - Start trial of midodrine 2.5 mg daily. - Patient stable for discharge to home with home PT or inpatient rehab. Admission and Anticipated Discharge Date Admission Date: May 19, 2022 Subjective Patient seen in cardiology follow-up. Notes ongoing issues with orthostatic dizziness. Comfortable sitting in chair. Ongoing atrial fibrillation with controlled ventricular rate in the 70s to 80s observed. Physical Exam Constitutional: + obese; no acute distress Respiratory: normal respiratory effort, lungs clear to auscultation Cardiovascular: Rate/Rhythm: + irregularly irregular Heart Sounds: normal S1 and normal S2; no murmur Extremities: + edema (1+ chronic lower extremity edema due to venous insufficiency, stable) Gastrointestinal (Abdomen): normal bowel sounds, soft, nontender, no hepatosplenomegaly Neurologic: PERRL, EOMI, accommodation nl, no face palsy, no dysarthria Results & Data ([facility]) Vital Signs (Past 12 Hours) Vital Signs Temp Pulse Pulse Resp BP Pulse Ox O2 Del Method 05/22/22 12:00 36.6 C 78 18 98/60 L 96 05/22/22 07:56 36.7 C 100 H 20 125/67 98 Room Air 05/22/22 07:40 79 05/22/22 04:11 36.4 C L 64 18 110/68 99 Room Air
[2022-05-22] MEDS: MIDODRINE HCL 2.5 MG TAB PO SCH (17:11)
[2022-05-22] MEDS: CALCIUM 600MG + VIT D 400 IU TAB PO SCH (17:11)
[2022-05-22] MEDS: DIGOXIN 0.125 MG TAB PO SCH (20:56)
--- NOTE | 2022-05-22 22:40 | Hospitalist Progress Note ---
Date of Service May 22, 2022 Assessment & Plan (1) Postural dizziness with presyncope: (2) Chest pain: (3) Atrial fibrillation with rapid ventricular response: Plan A 76-year-old female with past medical history significant for type 2 diabetes, hyperlipidemia, paroxysmal atrial fibrillation, history of CAD, chronic systolic CHF- post-SD, morbid obesity, chronic kidney disease stage III, generalized osteoarthrosis, lymphedema of both lower extremities, depression, presents with chest pain and dizziness. Dizziness secondary to postural hypotension Chest pain, ACS ruled out A. fib with RVR Afebrile, hypotensive and saturating well in room air Orthostatic positive CT headno acute intracranial abnormality High sensitive troponin negative EKG shows A. fib with RVR Echo shows EF of 55 to 60% negative nuclear stress test. Due to postural hypotension cardiology recommended to decrease torsimide 20mg daily on // and others days BID Neurology on board for dizziness; recommend carotid bilateral. They also recommend further imaging if dizziness does not improve with improvement in postural hypotension Cardiology on board; continue on metoprolol for rate control. Continue on Eliquis. Continue Digoxin daily Anemia,- hemoglobin 8.1 today, baseline at 8.5. Her BUN is also elevated. She reports no changes in color of her stool. continue PPI Hyperlipidemia: On statin. Hypertension: On metoprolol, Entresto, diuretics. Continue monitor the blood pressure. Deep venous thrombosis prophylaxis: On Eliquis. Weakness Continue PT/OT Plan to go to rehab DISPOSITION: Waiting for placement Admission and Anticipated Discharge Date Admission Date: May 19, 2022 Subjective Pt was seen and examined for follow up dizziness Sitting in chair with no acute distress Pt said that she feels oK Pt said that her system is coming on wednesday to stay with her for 2 weeks She is asking to go home on Wednesday and to arrange for home PT/OT Denies any chest pain, palpitation, dizziness and SOB Review of Systems Review of Systems: All systems reviewed & are unremarkable except as noted in Subjective Physical Exam Physical Exam: General- No acute distress Head- atraumatic Eyes- PERRL, EOMI, ENT- oropharynx clear Neck- supple, no JVD Lungs- clear to auscultation Heart- irregular rhythm Abdomen- normal bowel sounds, soft, nontender Extremities- no calf tenderness Neuro- alert, oriented x 3; PERRL, EOMI; no facial palsy; no dysarthria Skin- warm & dry Results & Data Results & Data ([facility]) Vital Signs (Past 12 Hours) Vital Signs Temp Pulse Pulse Resp BP Pulse Ox O2 Del Method 05/22/22 20:56 78 05/22/22 19:27 36.6 C 78 18 108/65 99 Room Air 05/22/22 16:00 37.0 C 88 18 129/72 97 05/22/22 12:00 36.6 C 78 18 98/60 L 96
[2022-05-23] MEDS: ACETAMINOPHEN 325 MG TAB PO PRN (01:36)
--- NOTE | 2022-05-23 06:27 | Communication Note ---
Date of Service: May 23, 2022 Patient with persistent ringworm rash on left hand as per RN. AP Tinea manuum Topical clotrimazole Will relay to AM provider.
[2022-05-23] MEDS: INSULIN ASPART PER UNIT SC SCH ×4 (08:44→20:53)
[2022-05-23] MEDS: LANTUS PER UNIT CHARGE SQ SCH ×2 (08:44→20:53)
[2022-05-23] MEDS: ASPIRIN 81 MG ECTAB PO SCH (08:53)
[2022-05-23] MEDS: METOPROLOL SUCC 50MG EXT REL TAB PO SCH ×2 (08:53→20:10)
[2022-05-23] MEDS: TORSEMIDE 10 MG TAB PO SCH (08:54)
[2022-05-23] MEDS: VALSARTAN/SACUBITRIL 26/24MG TAB PO SCH ×2 (08:54→20:52)
[2022-05-23] MEDS: APIXABAN 5 MG TABLET PO SCH ×2 (08:54→20:52)
[2022-05-23] MEDS: MIDODRINE HCL 2.5 MG TAB PO SCH ×3 (08:54→17:28)
[2022-05-23] MEDS: PANTOprazole 40 MG TAB PO SCH (08:56)
[2022-05-23] MEDS: ATORVASTATIN 40 MG TAB PO SCH (08:56)
[2022-05-23] MEDS: CLOTRIMAZOLE 1% CR 15 GM TUBE EXT SCH ×2 (08:56→20:54)
[2022-05-23] MEDS: OXYBUTYNIN CHLORIDE 5 MG TAB PO SCH ×2 (08:56→20:52)
[2022-05-23] MEDS: MULTIVITAMIN TAB PO SCH (12:39)
[2022-05-23] MEDS: MAGNESIUM OXIDE 400 MG TAB PO SCH (12:40)
[2022-05-23] MEDS: CALCIUM 600MG + VIT D 400 IU TAB PO SCH (17:27)
--- NOTE | 2022-05-23 17:33 | Hospitalist Progress Note ---
Date of Service May 23, 2022 Assessment & Plan (1) Postural dizziness with presyncope: (2) Chest pain: (3) Atrial fibrillation with rapid ventricular response: Plan A 76-year-old female with past medical history significant for type 2 diabetes, hyperlipidemia, paroxysmal atrial fibrillation, history of CAD, chronic systolic CHF- post-UT, morbid obesity, chronic kidney disease stage III, generalized osteoarthrosis, lymphedema of both lower extremities, depression, presents with chest pain and dizziness. Dizziness secondary to postural hypotension Chest pain, ACS ruled out A. fib with RVR Afebrile, hypotensive and saturating well in room air Orthostatic positive CT headno acute intracranial abnormality High sensitive troponin negative EKG shows A. fib with RVR Echo shows EF of 55 to 60% negative nuclear stress test. Due to postural hypotension cardiology recommended to decrease torsimide 20mg daily on // and others days BID Neurology on board for dizziness; recommend carotid bilateral. They also recommend further imaging if dizziness does not improve with improvement in postural hypotension Cardiology on board; continue on metoprolol for rate control. Continue on Eliquis. Continue Digoxin daily Anemia,- hemoglobin 8.1 today, baseline at 8.5. Her BUN is also elevated. She reports no changes in color of her stool. continue PPI Hyperlipidemia: On statin. Hypertension: continue metoprolol, Entresto, diuretics. Continue monitor the blood pressure. Deep venous thrombosis prophylaxis: On Eliquis. Weakness Continue PT/OT PT recommended rehab, but patient would like to go home with her sister that is coming to stay with her for 2 weeks Fall precaution DISPOSITION: Waiting for placement Admission and Anticipated Discharge Date Admission Date: May 19, 2022 Subjective Pt was seen and examined for follow up dizziness and ambulatory dysfunction Sitting in chair with no acute distress Pt said that she feels alot better today She said that her dizziness improves significantly Pt is very anxious to go home with her sister She participated in therapy today, but therapy recommended rehab Denies any chest pain, palpitation, dizziness and SOB Review of Systems Review of Systems: All systems reviewed & are unremarkable except as noted in Subjective Physical Exam Physical Exam: General- No acute distress Head- atraumatic Eyes- PERRL, EOMI, ENT- oropharynx clear Neck- supple, no JVD Lungs- clear to auscultation Heart- irregular rhythm Abdomen- normal bowel sounds, soft, nontender Extremities- no calf tenderness Neuro- alert, oriented x 3; PERRL, EOMI; no facial palsy; no dysarthria Skin- warm & dry Results & Data Results & Data ([facility]) Vital Signs (Past 12 Hours) Vital Signs Temp Pulse Resp BP BP Pulse Ox O2 Del Method 05/23/22 15:48 36.4 C L 68 18 109/73 98 Room Air 05/23/22 11:18 36.4 C L 75 19 112/56 L 96 Room Air 05/23/22 06:45 36.6 C 69 18 122/64 99 Room Air 05/23/22 05:46 36.6 C 76 18 107/65 93 Room Air
[2022-05-23] MEDS: DIGOXIN 0.125 MG TAB PO SCH (20:51)
[2022-05-24 05:25] LABS: Hematocrit (blood only) 24.2 % (34.1-44.9); Hemoglobin 7.4 g/dl (12.0-16.0); Mean Corpuscular Hemoglobin 25.5 pg (25.0-34.0); Mean Corpuscular Hgb Conc 30.6 g/dL (32.0-36.0); Mean Corpuscular Volume 83.4 fL (80.0-100.0); Mean Platelet Volume 9.8 fL (9.4-12.3); Platelet Count 289 K/uL (130-400); RDW Coefficient of Variation 16.1 % (11.5-14.5); RDW Standard Deviation 48.9 fL (36.4-46.3); White Blood Count 9.19 K/ul (4.8-10.8)
[2022-05-24 05:50] LABS: BUN Creatinine Ratio 28.2 (10-20); Calcium 8.2 mg/dl (8.5-10.1); Creatinine Clr Calc Pharmacy 73.8 ml/min; Est GFR (Non-African American) 73.3 ml/min; Potassium 4.3 mmol/L (3.5-5.1)
[2022-05-24] MEDS: TORSEMIDE 10 MG TAB PO SCH (07:40)
[2022-05-24] MEDS: PANTOprazole 40 MG TAB PO SCH (07:40)
[2022-05-24] MEDS: OXYBUTYNIN CHLORIDE 5 MG TAB PO SCH ×2 (07:40→20:56)
[2022-05-24] MEDS: APIXABAN 5 MG TABLET PO SCH ×2 (07:40→20:57)
[2022-05-24] MEDS: VALSARTAN/SACUBITRIL 26/24MG TAB PO SCH ×2 (07:40→20:56)
[2022-05-24] MEDS: METOPROLOL SUCC 50MG EXT REL TAB PO SCH (07:41)
[2022-05-24] MEDS: MIDODRINE HCL 2.5 MG TAB PO SCH ×3 (07:41→16:40)
[2022-05-24] MEDS: ATORVASTATIN 40 MG TAB PO SCH (07:42)
[2022-05-24] MEDS: ASPIRIN 81 MG ECTAB PO SCH (07:42)
[2022-05-24] MEDS: CLOTRIMAZOLE 1% CR 15 GM TUBE EXT SCH ×2 (07:43→20:57)
[2022-05-24] MEDS: INSULIN ASPART PER UNIT SC SCH ×4 (08:44→20:40)
[2022-05-24] MEDS: LANTUS PER UNIT CHARGE SQ SCH ×2 (08:45→20:57)
[2022-05-24] MEDS ORDERED: SODIUM CHLORIDE 0.9% 250 ML IV PRN (10:45)
[2022-05-24] MEDS: MULTIVITAMIN TAB PO SCH (11:44)
[2022-05-24] MEDS: MAGNESIUM OXIDE 400 MG TAB PO SCH (11:44)
[2022-05-24 12:59] LABS: Hematocrit (blood only) 27.3 % (34.1-44.9); Hemoglobin 8.3 g/dl (12.0-16.0)
[2022-05-24] MEDS: CALCIUM 600MG + VIT D 400 IU TAB PO SCH (16:40)
[2022-05-24] MEDS: DIGOXIN 0.125 MG TAB PO SCH (20:56)
--- NOTE | 2022-05-24 23:51 | Hospitalist Progress Note ---
Date of Service May 24, 2022 Assessment & Plan (1) Postural dizziness with presyncope: (2) Chest pain: (3) Atrial fibrillation with rapid ventricular response: Plan A 76-year-old female with past medical history significant for type 2 diabetes, hyperlipidemia, paroxysmal atrial fibrillation, history of CAD, chronic systolic CHF- post-AR, morbid obesity, chronic kidney disease stage III, generalized osteoarthrosis, lymphedema of both lower extremities, depression, presents with chest pain and dizziness. Dizziness secondary to postural hypotension Chest pain, ACS ruled out A. fib with RVR Afebrile, hypotensive and saturating well in room air Orthostatic positive CT headno acute intracranial abnormality High sensitive troponin negative EKG shows A. fib with RVR Echo shows EF of 55 to 60% negative nuclear stress test. Due to postural hypotension cardiology recommended to decrease torsimide 20mg daily on // and others days BID Neurology on board for dizziness; recommend carotid bilateral. They also recommend further imaging if dizziness does not improve with improvement in postural hypotension Cardiology on board; continue on metoprolol for rate control. Continue on Eliquis. Continue Digoxin daily Anemia,- hemoglobin 7.4 today, baseline at 8.5. Type and crossed done and consent signed Repeat Hgb 8.3 this afternoon Will hold on PRBC transfusion Continue monitor CBC Hyperlipidemia: Continue statin. Weakness Continue PT/OT PT recommended rehab, but patient would like to go home with her sister that is coming to stay with her for 2 weeks Fall precaution Hypertension: continue metoprolol, Entresto, diuretics. Continue monitor the blood pressure. Deep venous thrombosis prophylaxis: On Eliquis. DISPOSITION: Waiting for placement Admission and Anticipated Discharge Date Admission Date: May 19, 2022 Subjective Pt was seen and examined for follow up dizziness and ambulatory dysfunction Lying in bed with no acute distress Pt said that she feels dizzy this morning Hgb this morning 7.4 Pt is not sure if her sister will be able to care for her Denies any chest pain, palpitation, dizziness and SOB Review of Systems Review of Systems: All systems reviewed & are unremarkable except as noted in Subjective Physical Exam Physical Exam: General- No acute distress Head- atraumatic Eyes- PERRL, EOMI, ENT- oropharynx clear Neck- supple, no JVD Lungs- clear to auscultation Heart- irregular rhythm Abdomen- normal bowel sounds, soft, nontender Extremities- no calf tenderness Neuro- alert, oriented x 3; PERRL, EOMI; no facial palsy; no dysarthria Skin- warm & dry Results & Data Results & Data ([facility]) Vital Signs (Past 12 Hours) Vital Signs Temp Pulse Pulse Resp BP Pulse Ox O2 Del Method 05/24/22 19:45 Room Air 05/24/22 22:25 36.4 C L 72 16 100/61 97 Room Air 05/24/22 20:56 70 05/24/22 19:29 36.6 C 83 17 124/68 100 Room Air 05/24/22 16:15 36.4 C L 80 20 122/61 98 Room Air
[2022-05-25] MEDS: INSULIN ASPART PER UNIT SC SCH ×4 (08:32→21:54)
[2022-05-25] MEDS: LANTUS PER UNIT CHARGE SQ SCH ×2 (08:33→22:03)
[2022-05-25] MEDS: MIDODRINE HCL 2.5 MG TAB PO SCH ×3 (08:39→18:03)
[2022-05-25] MEDS: APIXABAN 5 MG TABLET PO SCH ×2 (08:39→20:23)
[2022-05-25] MEDS: CLOTRIMAZOLE 1% CR 15 GM TUBE EXT SCH ×2 (08:40→20:25)
[2022-05-25] MEDS: ATORVASTATIN 40 MG TAB PO SCH (08:40)
[2022-05-25] MEDS: ASPIRIN 81 MG ECTAB PO SCH (08:40)
[2022-05-25] MEDS: VALSARTAN/SACUBITRIL 26/24MG TAB PO SCH ×2 (08:41→20:23)
[2022-05-25] MEDS: OXYBUTYNIN CHLORIDE 5 MG TAB PO SCH ×2 (08:41→20:24)
[2022-05-25] MEDS: PANTOprazole 40 MG TAB PO SCH (08:41)
[2022-05-25] MEDS: TORSEMIDE 10 MG TAB PO SCH (09:27)
[2022-05-25] MEDS: MULTIVITAMIN TAB PO SCH (12:40)
[2022-05-25] MEDS: MAGNESIUM OXIDE 400 MG TAB PO SCH (12:40)
[2022-05-25 15:11] LABS: Hemoglobin 8.2 g/dl (12.0-16.0); Mean Corpuscular Hemoglobin 25.9 pg (25.0-34.0); Mean Corpuscular Hgb Conc 30.4 g/dL (32.0-36.0); Mean Corpuscular Volume 85.2 fL (80.0-100.0); Mean Platelet Volume 9.5 fL (9.4-12.3); Platelet Count 344 K/uL (130-400); RDW Standard Deviation 49.5 fL (36.4-46.3); Red Blood Count 3.17 M/uL (3.93-5.22); White Blood Count 9.44 K/ul (4.8-10.8)
[2022-05-25 16:17] LABS: BUN Creatinine Ratio 17.6 (10-20); Calcium 8.7 mg/dl (8.5-10.1); Creatinine Clr Calc Pharmacy 48.4 ml/min; Potassium 4.6 mmol/L (3.5-5.1)
--- NOTE | 2022-05-25 16:54 | Hospitalist Progress Note ---
Date of Service May 25, 2022 Assessment & Plan (1) Postural dizziness with presyncope: (2) Chest pain: (3) Atrial fibrillation with rapid ventricular response: Plan A 76-year-old female with past medical history significant for type 2 diabetes, hyperlipidemia, paroxysmal atrial fibrillation, history of CAD, chronic systolic CHF- post-OK, morbid obesity, chronic kidney disease stage III, generalized osteoarthrosis, lymphedema of both lower extremities, depression, presents with chest pain and dizziness. Dizziness secondary to postural hypotension Chest pain, ACS ruled out A. fib with RVR Afebrile, hypotensive and saturating well in room air Orthostatic positive CT headno acute intracranial abnormality High sensitive troponin negative EKG shows A. fib with RVR Echo shows EF of 55 to 60% negative nuclear stress test. Due to postural hypotension cardiology recommended to decrease torsemide 20mg daily on // and others days BID Neurology on board for dizziness; recommend carotid bilateral. They also recommend further imaging if dizziness does not improve with improvement in postural hypotension Cardiology on board Continue on metoprolol for rate control. Continue on Eliquis. Continue Digoxin daily Anemia,- hemoglobin 7.4 today, baseline at 8.5. Type and crossed done and consent signed Hgb 8.2 today Continue to hold on PRBC transfusion Continue monitor CBC Hyperlipidemia: Continue statin. Weakness Continue PT/OT PT recommended rehab, but patient would like to go home with her sister that is coming to stay with her for 2 weeks Fall precaution Hypertension: continue metoprolol, Entresto, diuretics. Continue monitor the blood pressure. Deep venous thrombosis prophylaxis: On Eliquis. DISPOSITION: Plan to discharge home tomorrow with home health with sister planning to stay wi th her for 2 weeks Admission and Anticipated Discharge Date Admission Date: May 19, 2022 Subjective Pt was seen and examined for follow up dizziness and ambulatory dysfunction Sitting in chair with no acute distress She said that she feels alot better today She said that she is not having any dizziness today Denies any chest pain, palpitation, dizziness and SOB Review of Systems Review of Systems: All systems reviewed & are unremarkable except as noted in Subjective Physical Exam Physical Exam: General- No acute distress Head- atraumatic Eyes- PERRL, EOMI, ENT- oropharynx clear Neck- supple, no JVD Lungs- clear to auscultation Heart- irregular rhythm Abdomen- normal bowel sounds, soft, nontender Extremities- no calf tenderness Neuro- alert, oriented x 3; PERRL, EOMI; no facial palsy; no dysarthria Skin- warm & dry Results & Data Results & Data ([facility]) Vital Signs (Past 12 Hours) Vital Signs Temp Pulse Pulse Resp BP BP Pulse Ox 05/25/22 15:28 36.7 C 85 17 111/51 L 98 05/25/22 12:35 36.5 C 83 18 91/52 L 84/51 L 99 05/25/22 07:00 72 05/25/22 07:15 37.0 C 71 19 118/63 94 O2 Del Method 05/25/22 15:28 Room Air 05/25/22 12:35 Room Air 05/25/22 07:00 05/25/22 07:15 Room Air
[2022-05-25] MEDS: CALCIUM 600MG + VIT D 400 IU TAB PO SCH (18:03)
[2022-05-25] MEDS: DIGOXIN 0.125 MG TAB PO SCH (22:04)
[2022-05-26 06:22] LABS: Hematocrit (blood only) 24.3 % (34.1-44.9); Hemoglobin 7.5 g/dl (12.0-16.0); Mean Corpuscular Hgb Conc 30.9 g/dL (32.0-36.0); Mean Corpuscular Volume 84.4 fL (80.0-100.0); Mean Platelet Volume 10.2 fL (9.4-12.3); Platelet Count 263 K/uL (130-400); RDW Standard Deviation 48.3 fL (36.4-46.3); Red Blood Count 2.88 M/uL (3.93-5.22); White Blood Count 8.38 K/ul (4.8-10.8)
[2022-05-26 06:47] LABS: BUN Creatinine Ratio 24.2 (10-20); Calcium 8.4 mg/dl (8.5-10.1); Creatinine Clr Calc Pharmacy 60.8 ml/min; Est GFR (Non-African American) 57.8 ml/min; Potassium 4.7 mmol/L (3.5-5.1)
[2022-05-26] MEDS: INSULIN ASPART PER UNIT SC SCH ×2 (08:38→12:29)
[2022-05-26] MEDS: ATORVASTATIN 40 MG TAB PO SCH (08:39)
[2022-05-26] MEDS: APIXABAN 5 MG TABLET PO SCH (08:39)
[2022-05-26] MEDS: MIDODRINE HCL 2.5 MG TAB PO SCH ×2 (08:39→12:29)
[2022-05-26] MEDS: ASPIRIN 81 MG ECTAB PO SCH (08:39)
[2022-05-26] MEDS: CLOTRIMAZOLE 1% CR 15 GM TUBE EXT SCH (08:39)
[2022-05-26] MEDS: PANTOprazole 40 MG TAB PO SCH (08:40)
[2022-05-26] MEDS: VALSARTAN/SACUBITRIL 26/24MG TAB PO SCH (08:40)
[2022-05-26] MEDS: LANTUS PER UNIT CHARGE SQ SCH (08:40)
[2022-05-26] MEDS: OXYBUTYNIN CHLORIDE 5 MG TAB PO SCH (08:40)
[2022-05-26] MEDS: TORSEMIDE 10 MG TAB PO SCH (08:40)
[2022-05-26] MEDS: MULTIVITAMIN TAB PO SCH (12:29)
[2022-05-26] MEDS: MAGNESIUM OXIDE 400 MG TAB PO SCH (12:29)
[2022-05-26 13:20] LABS: Hematocrit (blood only) 27.6 % (34.1-44.9); Hemoglobin 8.5 g/dl (12.0-16.0)
[2022-05-26] MEDS ORDERED: COVID19 BIVALENT Vaccine (Booster ONLY--Pfizer) 30mcg/0.3mL IM ONE (15:21)
--- NOTE | 2022-06-07 18:03 | Discharge Summary ---
Date of Service May 26, 2022 Admission HPI Per Admitting Provider DATE OF ADMISSION: 05/18/2022. CHIEF COMPLAINT: Chest pain, dizzy and imbalance. HISTORY OF PRESENT ILLNESS: A 76-year-old female with past medical history significant for type 2 diabetes, hyperlipidemia, paroxysmal atrial fibrillation, history of CAD, chronic systolic CHF- post-AZ, morbid obesity, chronic kidney disease stage III, generalized osteoarthrosis, lymphedema of both lower extremities, depression, presents with chest pain and dizziness. The patient woke up in the morning with dizziness and some nausea and imbalance and chest pain. Nausea improved but still _some what imbalance in the ER, she was using walker to ambulate. At home she uses a cane, but still feeling a little bit wobbly. Her chest pain is improved with nitro,. When she came in chest pain was 4/10 and currently it is only 1-2. Denies any headache. No blurred vision, double vision. No earache, no runny nose, no sore throat, no cough, no fevers. Appetite is okay. No difficulty swallowing. She gets on and off shortness of breath, nothing new. No abdominal pain. Normal bowel and bladder movements. Has chronic lower extremity edema. Currently resting comfortably and hemodynamically stable. Admission Exam Per Admitting Provider GENERAL: The patient is obese, not in acute distress. VITAL SIGNS: Temperature 37.1, pulse 103, respiratory rate 20, blood pressure 117/71, oxygen 97% on room air. HEENT: Pupils equal, round and reactive to light. Oral mucosa moist. NECK: No JVD. No neck masses. CARDIOVASCULAR: S1 and S2 heard. Regular rate and rhythm. No murmur, no gallop. RESPIRATORY SYSTEM: Normal AP diameter. No accessory muscle use. No wheezing, no crackles. ABDOMEN: Soft, bowel sounds present, nontender, no distention. CENTRAL NERVOUS SYSTEM: Alert and oriented. Speech is clear. No facial droop. Obeys simple commands. Moves extremities. EXTREMITIES: Bilateral lower extremity lymphedema present. No obvious erythema seen. Principal Diagnosis Postural dizziness with presyncope: Chest pain: Atrial fibrillation with rapid ventricular response: Anemia Hyperlipidemia: Weakness Hypertension Discharge Exam General- No acute distress Head- atraumatic Eyes- PERRL, EOMI, ENT- oropharynx clear Neck- supple, no JVD Lungs- clear to auscultation Heart- irregular rhythm Abdomen- normal bowel sounds, soft, nontender Extremities- no calf tenderness Neuro- alert, oriented x 3; PERRL, EOMI; no facial palsy; no dysarthria Skin- warm & dry Discharge Data Allergies Allergy/AdvReac Type Severity Reaction Status Date / Time cetirizine AdvReac Intermediate Hallucinati Verified 05/18/22 19:31 ng hydroxyzine AdvReac Intermediate Hallucinati Verified 05/18/22 19:31 ng Consultations 05/18/22 19:27 ED Decision to Admit Stat 05/19/22 08:00 Consult Cardiology Routine Consult Neurology Routine Ordered Studies 05/18/22 20:31 CT head/brain wo con Urgent 05/19/22 14:29 US carotid doppler BI Routine Laboratory Results WBC 8.38 K/ul (4.8-10.8) 05/26/22 05:38 RBC 2.88 M/uL (3.93-5.22) L 05/26/22 05:38 Hgb 8.5 g/dl (12.0-16.0) L 05/26/22 12:55 Hct 27.6 % (34.1-44.9) L 05/26/22 12:55 MCV 84.4 fL (80.0-100.0) 05/26/22 05:38 MCH 26.0 pg (25.0-34.0) 05/26/22 05:38 MCHC 30.9 g/dL (32.0-36.0) L 05/26/22 05:38 RDW Std Deviation 48.3 fL (36.4-46.3) H 05/26/22 05:38 RDW Coeff of [place] 16.0 % (11.5-14.5) H 05/26/22 05:38 Plt Count 263 K/uL (130-400) 05/26/22 05:38 MPV 10.2 fL (9.4-12.3) 05/26/22 05:38 Immature Gran % (Auto) 0.6 % 05/20/22 06:29 Neut % (Auto) 67.5 % 05/20/22 06:29 Lymph % (Auto) 21.3 % 05/20/22 06:29 [place] % (Auto) 7.2 % 05/20/22 06:29 Eos % (Auto) 2.8 % 05/20/22 06:29 Baso % (Auto) 0.6 % 05/20/22 06:29 Neut # (Auto) 7.18 K/uL (1.4-6.5) H 05/20/22 06:29 Lymph # (Auto) 2.26 K/uL (1.2-3.4) 05/20/22 06:29 [place] # (Auto) 0.77 K/uL (0.24-0.82) 05/20/22 06:29 Eos # (Auto) 0.30 K/uL (0-0.50) 05/20/22 06:29 Baso # (Auto) 0.06 K/uL (0-0.2) 05/20/22 06:29 Immature Gran # (Auto) 0.06 K/uL (0.00-0.02) H 05/20/22 06:29 PT 12.9 Seconds (9.0-12.0) H 05/18/22 15:21 INR 1.2 (0.9-1.1) H 05/18/22 15:21 APTT 23.8 Seconds (21.0-31.0) 05/18/22 15:21 PTT Ratio 0.9 05/18/22 15:21 Sodium 140 mmol/L (136-145) 05/26/22 05:38 Potassium 4.7 mmol/L (3.5-5.1) 05/26/22 05:38 Chloride 106 mmol/L (98-107) 05/26/22 05:38 Carbon Dioxide 31 mmol/L (21-32) 05/26/22 05:38 Anion Gap 3 (3-11) 05/26/22 05:38 BUN 23 mg/dl (6-23) 05/26/22 05:38 Creatinine 0.95 mg/dl (0.6-1.2) 05/26/22 05:38 Est Cr Clr Drug Dosing 60.8 ml/min 05/26/22 05:38 Est GFR ( Amer) 67.0 ml/min 05/26/22 05:38 Est GFR (Non-Af Amer) 57.8 ml/min 05/26/22 05:38 BUN/Creatinine Ratio 24.2 (10-20) H 05/26/22 05:38 Glucose 132 mg/dl (70-99(Fasting)) H 05/26/22 05:38 POC Glucose 196 mg/dl (70-99) H 05/26/22 11:43 Estimat Average Glucose 154 mg/dl 05/19/22 05:29 Hemoglobin A1c 7.0 % (4.5-5.6) H 05/19/22 05:29 Calcium 8.4 mg/dl (8.5-10.1) L 05/26/22 05:38 Magnesium 1.9 mg/dl (1.7-2.4) 05/19/22 05:29 Iron 52 mcg/dl (35-150) 05/19/22 05:29 Iron Cancelled 05/19/22 05:29 TIBC 260 mcg/dl (250-450) 05/19/22 05:29 TIBC Cancelled 05/19/22 05:29 Unsaturated IBC 208 mcg/dl (155-355) 05/19/22 05:29 Unsaturated IBC Cancelled 05/19/22 05:29 Transferrin % Sat 20 % (15-50) 05/19/22 05:29 Transferrin % Sat Cancelled 05/19/22 05:29 Total Bilirubin 0.4 mg/dl (0.2-1.0) 05/18/22 15:21 AST 14 U/L (13-39) 05/18/22 15:21 ALT 14 U/L (7-52) 05/18/22 15:21 Alkaline Phosphatase 79 U/L (34-104) 05/18/22 15:21 Total Creatine Kinase 29 U/L (26-192) 05/19/22 14:37 Troponin I High Sens 7.1 pg/ml (0-14) 05/19/22 16:43 B-Natriuretic Peptide 110 pg/ml (0-100) H 05/18/22 15:21 Total Protein 6.2 gm/dl (6.0-8.3) 05/18/22 15:21 Albumin 3.2 gm/dl (3.4-5.0) L 05/18/22 15:21 Globulin 3.0 gm/dl (2.5-4.0) 05/18/22 15:21 Albumin/Globulin Ratio 1.1 (0.9-2) 05/18/22 15:21 Lipase 26 U/L (11-82) 05/18/22 15:21 Vitamin B12 296 pg/ml (180-914) 05/19/22 05:29 Folate > 22.30 ng/ml (>5.38) 05/19/22 05:29 SARS-CoV-2, RNA, NAAT NEGATIVE (NEGATIVE) 05/18/22 16:59 Blood Type A Positive 05/24/22 11:03 Blood Type Recheck A Positive 05/24/22 04:37 Antibody Screen NEGATIVE 05/24/22 11:03 Crossmatch See Detail 05/24/22 11:03 Impressions Chest X-Ray 05/18/22 16:10 SINGLE VIEW CHEST CLINICAL HISTORY: Atypical chest pain. FINDINGS: An AP, portable, upright chest radiograph is compared to study dated 04/11/2020 and correlated with chest CT dated 12/19/2018. A 2-lead cardiac pacemaker is unchanged in position. The heart is mildly enlarged noting atherosclerotic calcification of the thoracic aorta. The pulmonary vasculature is noncongested. There is chronic elevation of the right hemidiaphragm with bibasilar scarring/atelectasis. Chronic interstitial thickening is similar to previous. The lungs and pleural spaces are otherwise clear. No pneumothorax is seen. The skeletal structures are osteopenic. The bony thorax is grossly intact. Postsurgical change is noted in the right shoulder. Cholecystectomy clips are seen in the right upper quadrant. IMPRESSION: No acute cardiopulmonary abnormality. ACT 112: Negative or not required by law. Electronically signed by: Kofi Lopez M.D. 05/18/2022 4:[address] 05/18/22 20:31 CT head/brain wo con CLINICAL HISTORY: 76 years-old Female with dizzy/imbalance. Acute dizziness with weakness TECHNIQUE: Multiple axial CT images of the head were obtained without contrast. A dose lowering technique was utilized adhering to the principles of ALARA. CT DOSE: 1381.76 mGy.cm COMPARISON: Head CT 08/25/2018 FINDINGS: No acute intracranial hemorrhage, midline shift, intracranial mass, hydrocephalus, territorial ischemia or abnormal extra-axial collection. Age- related involutional changes. White matter hypodensities suggestive of chronic microvascular ischemic disease, mildly progressed from the prior study. The calvarium is intact. Prior bilateral lens repair. The paranasal sinuses, mastoid air cells, and middle ear cavities are clear. IMPRESSION: No acute intracranial abnormality identified. ACT 112: Negative or not required by law. The above report was generated using voice recognition software. It may contain grammatical, syntax or spelling errors. Electronically signed by: Michele Maddox M.D. 05/19/2022 6:56 AM Carotid Doppler Study 05/19/22 14:29 ULTRASOUND OF THE CAROTID ARTERIES CLINICAL HISTORY: Dizziness. COMPARISON STUDY: No priors. TECHNIQUE: Real-time, grayscale, and color Doppler sonography of the carotid arteries is performed. Images are reviewed in the transverse and longitudinal planes. FINDINGS: The carotid arteries are patent bilaterally and demonstrate antegrade flow. There is mild atherosclerotic plaque seen the carotid bulbs. Normal doppler arterial waveforms are seen throughout. Velocity measurements are listed below. The cardiac pulsations appear irregular. Common carotid peak systolic velocity (cm/sec): RIGHT: 101 LEFT: 143 ICA proximal peak systolic velocity (cm/sec): RIGHT: 70 LEFT: 79 ICA mid peak systolic velocity (cm/sec): RIGHT: 94 LEFT: 64 ICA distal peak systolic velocity (cm/sec): RIGHT: 56 LEFT: 71 ICA/CC peak systolic ratio: RIGHT: 0.9 LEFT: 0.6 Antegrade flow was shown in the vertebral arteries. The external carotid arteries are patent. IMPRESSION: 1. There is no sonographic evidence of hemodynamically significant stenosis in the right or left carotid arterial system. 2. Antegrade flow is shown in the vertebral arteries. 3. The cardiac pulsations appear irregular. Correlate with EKG for evidence of arrhythmia. ACT 112: Negative or not required by law. Electronically signed by: Kofi Lopez M.D. 05/20/2022 7:12 AM Hospital Course (1) Postural dizziness with presyncope: (2) Chest pain: (3) Atrial fibrillation with rapid ventricular response: Plan A 76-year-old female with past medical history significant for type 2 diabetes, hyperlipidemia, paroxysmal atrial fibrillation, history of CAD, chronic systolic CHF- post-AZ, morbid obesity, chronic kidney disease stage III, generalized osteoarthrosis, lymphedema of both lower extremities, depression, presents with chest pain and dizziness. Dizziness secondary to postural hypotension Chest pain, ACS ruled out A. fib with RVR Afebrile, hypotensive and saturating well in room air Orthostatic positive CT headno acute intracranial abnormality High sensitive troponin negative EKG shows A. fib with RVR Echo shows EF of 55 to 60% negative nuclear stress test. Due to postural hypotension cardiology recommended to decrease torsemide 20mg daily on // and others days BID Neurology on board for dizziness; recommend carotid bilateral. They also recommend further imaging if dizziness does not improve with improvement in postural hypotension Cardiology on board Continue on metoprolol for rate control. Continue on Eliquis. Continue Digoxin daily Anemia,- hemoglobin 7.4 today, baseline at 8.5. Type and crossed done and consent signed Hgb 8.5 today No PRBC blood transfusion given Continue monitor CBC Hyperlipidemia: Continue statin. Weakness Continue PT/OT PT recommended rehab, but patient would like to go home with her sister that is coming to stay with her for 2 weeks Fall precaution Hypertension: continue metoprolol, Entresto, diuretics. Continue monitor the blood pressure. Deep venous thrombosis prophylaxis: On Eliquis. DISPOSITION: Plan to discharge home tomorrow with home health with sister planning to stay with her for 2 weeks Total Time Total Time Spent Total Time Spent (In Minutes): 35 minutes Discharge Plan Discharge Items Patient Disposition: Home - Home Health Services Reason For Visit: CHEST PAIN Discharge Diagnosis: Postural dizziness with presyncope: Chest pain: Atrial fibrillation with rapid ventricular response: Anemia Hyperlipidemia: Weakness Hypertension: Activity: Resume your previous activity Non-emergency contact: Primary Care Provider and [employer] Mach[employer]ist Call non-emergency contact if: you have any medication questions and your symptoms worsen Follow-up/Referrals: Jason West MD [Primary Care Provider] - (Date & Time 06/01/2022 9:00 AM Provider Jason West MD Department [facility] ) Diet: Heart Healthy Addtl Attending Provider Instructions: Follow up with your primary care provider 06/01/2022 @9:00 AM Jason West MD Department [facility] Follow up with cardiology outpatient ( call to schedule for the follow up appointment) Continue physical and occupational therapy with Home health services Check CBC in 1 week to monitor your hemoglobin Continue monitor your blood pressure and bring your blood pressure log at your next appointment with your provider Continue Torsemide 20mg daily on Mondays, Wednesdays, Fridays and 20mg twice daily on the remaining days of the week Digoxin increased to 0.125 mg at night Fall precaution Seek medical attention if your symptoms worsening or reoccur Pending Studies at Discharge: No Stand-Alone Forms: My [facility], Smoking Cessation Medications and DC Order Prescriptions: New midodrine 5 mg tablet 5 mg PO TID Qty: 90 0RF Rx Instructions: do not give last dose of day after 6PM or within 4 hrs of bedtime Continued multivitamin Tablet 1 tab PO QDL atorvastatin 40 mg Tablet 40 mg PO QAM metoprolol succinate 100 mg Tablet Extended Release 24 Hr See Rx Instructions .ROUTE .COMPLEX Rx Instructions: 100 mg orally; TAKES 150 MG QAM, THEN 100 MG QHS. nitroglycerin [Nitrostat] 0.4 mg Tablet, Sublingual 0.4 mg Sublingual DIRECTED PRN (Reason: Chest Pain) oxybutynin chloride 5 mg Tablet 5 mg PO BID Rx Instructions: take with lunch and at bedtime insulin glargine [Lantus Solostar U-100 Insulin] 100 unit/mL (3 mL) Insulin Pen 20 unit SUBCUT BIDM Eliquis 5 mg Tablet 5 mg PO AMHS Entresto 24-26 mg tablet 0.5 tab PO AMHS Rx Instructions: TAKES 1/2 TAB BID glipizide 5 mg tablet 5 mg PO BIDM aspirin 81 mg Tablet,Delayed Release (Dr/Ec) 81 mg PO QAM acetaminophen [Tylenol Extra Strength] 500 mg Tablet 1,000 mg PO DIRECTED PRN (Reason: PAIN/FEVER) loratadine [Claritin] 10 mg Tablet 10 mg PO DAILY PRN (Reason: Congestion) cinnamon bark [Cinnamon] 500 mg Capsule 1,000 mg PO QDD Systane (PF) 0.4-0.3 % Dropperette 1 drp OPB DIRECTED PRN (Reason: Dry Eyes) Tylenol Sinus Headache 5-325 mg Tablet 1 tab PO QID PRN (Reason: Headache) calcium carbonate-vitamin D3 [Calcium 600 + D(3)] 600 mg-10 mcg (400 unit) Tablet 1 tab PO QDD magnesium oxide 400 mg magnesium Tablet 400 mg PO QDL Changed torsemide 20 mg tablet 20 mg PO DIRECTED Qty: 60 0RF Rx Instructions: Take 1 tab daily on Mon, Wed, Frid. Others days take 1 tab twice a day digoxin 125 mcg (0.125 mg) tablet 0.125 mg PO HS Qty: 30 0RF Rx Instructions: TAKES MON, WED, & FRI AT HS. Discharge Orders: Discharge Order (Routine); Ordered 05/26/22 Ordered By: Brianna Miles/Other Patient Handouts: Managing Type 2 Diabetes, Special Foot Care for Diabetes Admission Data Admit Date/Time: 05/19/22 19:01 Attending Provider: Brianna Funes Admit Provider: Choco Waite Primary Care Provider: Jsaon West Other Providers: Choco Waite ; Steven Levine ; Tristian Vaca ; Segun Cooley ; Franc Montiel ; Abhinav Moreno ; Aurelio Viera ; Clementina Anaya ; Ludmila Doty ; Saba Sutton ; Sai Pedersen ; Domo Neely ; Dixon Benoit ; Anabel Evans ; Ludmila Cannon ; Tee Ureña ; Ludmila Desai ; Bharat Bardales ; Sasha Dacosta ; Moy Tello ; Jinny Spivey ; Shannon Agarwal ; Agus Epperson ; [place] ; [facility] [place] ; [facility] ; [facility] Other Interventions: Discharge Summary Assessment (RN) Last Done: 05/26/22 16:45
== END 2022-05-26 17:09 | disposition home health service (06) | DRG 312 ==
LOC: ED 15:29 → 2S 15:29 → SUATTDRO 05-19 19:01 → 4W 05-23 05:31

== ENCOUNTER 2023-10-21 10:52 | Inpatient (IN) ==
[2023-10-21] MEDS ORDERED: ASPIRIN CHEW 324 MG PO STA (11:15)
--- NOTE | 2023-10-21 11:15 | Emergency Department Note ---
Impression & Plan Chest pain, Shortness of breath, Anemia ED Provider Note NAME: ISIDRO MURPHY AGE: 78 SEX: F : 1945 ARRIVES VIA: Ambulance INFORMANT: Patient ED PROVIDER(S): Faustino Bender DO CHIEF COMPLAINT: Exertional chest pain shortness of breath HPI: Patient is a 78-year-old female with a past medical history of A-fib, diastolic heart failure, diabetes, hypertension, hyperlipidemia, CAD, pacer in place who presents the ER for exertional chest pain and shortness of breath which has been present since this past Wednesday. She notes that today she was walking to the door and started having chest pressure and shortness of breath and she passed out. She denies any belly pain, nausea, vomiting, or diarrhea. No dysuria, urgency, or frequency. She does take Eliquis and digoxin and has not missed any doses. She denies any pain from the fall she notes she fell onto her couch. ADDITIONAL HISTORY OBTAINED: Per HPI Chronic Medical/Social Conditions Affecting Care: Per HPI PAST MEDICAL HISTORY:See Below PAST SURGICAL HISTORY:See Below FAMILY HISTORY:See Below SOCIAL HISTORY:See Below HOME MEDICATIONS:See Below ALLERGIES:See Below VITALS:See Below PHYSICAL EXAMINATION: GENERAL: Sitting up in bed, alert, well appearing, well nourished, no distress, non-toxic EYE EXAM: normal conjunctiva. PERRL and EOM's grossly intact. HEAD: NC/AT OROPHARYNX: no exudate, no erythema, lips, buccal mucosa, and tongue normal and mucous membranes are moist NECK: supple, no nuchal rigidity, no adenopathy, non-tender LUNGS: Clear to auscultation. Normal chest wall mechanics HEART: no murmurs, S1 normal and S2 normal ABDOMEN: abdomen soft, non-tender, normo-active bowel sounds, no masses, no rebound or guarding. UPPER EXTREMITIES: upper extremities are grossly normal. LOWER EXTREMITIES: No pitting edema. NEURO EXAM: Normal sensorium, cranial nerves II-XII intact, normal speech, no weakness of arms, no weakness of legs. No drift. Finger to nose intact. Gross sensation intact. MEDICAL DECISION MAKING: Patient is a 78-year-old female who presents the ER for above-stated complaint. IV was established blood work was obtained. Labs show no significant leukocytosis. Mild anemia 10 which is improved from previous. BMP along with LFTs bilirubin was unremarkable. Troponin was negative. TSH and lipase were normal. Digoxin was normal. Chest x-ray shows no focal infiltrate. Rhythm was ventricularly paced. Did request interrogation but have not received official word from [email or web address]. With the patient's exertional chest pain shortness of breath and syncope case was discussed with the hospitalist for further evaluation management treatment. Patient was given aspirin nitro prior to arrival. Rested in the ER comfortably asymptomatic. Consults/Care Managements Discussions: Per MDM Triage Nursing notes reviewed. Limited review of prior medical records performed Vital Signs: reviewed and remarkable for HTN Differential diagnosis: Cardiac ischemia, aortic dissection, pulmonary embolism, pneumothorax, pneumonia, pericarditis, myocarditis, esophageal rupture, GERD, cholecystitis, pancreatitis, musculoskeletal, as well as other pathologies. ER treatment provided: See below Diagnostics interpreted by me include EKG and cardiac monitoring as listed below: -Cardiac Monitoring: An order was placed for continuous cardiac monitoring. The monitor shows a rate of 70 with ventricular paced rhythm. -ECG: Ventricular paced rate of 68 Normal axis Septal Q waves QTc 508 ST depressions in the lateral leads T wave versions in the high lateral Paced rhythm is new as well as T wave inversions and ST depression -Laboratory studies:Interpreted by me as stated above in MDM and shown below. Imaging studies: Xrays: As interpreted by me: Portable AP upright 1 view of the chest shows no focal Lutrate CTs show: none Procedures:none Critical Care: None Past Med/Surg History Medical History (Updated 10/21/23 @ 15:37 by Faustino Bender DO) Postural dizziness with presyncope Diabetic polyneuropathy Orthostatic hypotension Atrial fibrillation with rapid ventricular response Chest pain Chest pain Acute on chronic diastolic (congestive) heart failure Ischemic cardiomyopathy Tachy-barbra syndrome admitted for elective pacemaker. Underwent procedure no complications; monitored overnight and discharged home. Chronic diastolic HF (heart failure) Paroxysmal A-fib on Eliquis Hx of supraventricular tachycardia Coronary artery disease "anterior [place] 11/10/17, LVEF 20-25%, PCI LAD with ISABEL" Hypertension Dyslipidemia DM type 2 (diabetes mellitus, type 2) Osteoarthritis Surgical History Status post coronary artery stent placement "PCI LAD with ISABEL 11/10/17" History of cholecystectomy History of tonsillectomy History of right knee joint replacement History of appendectomy H/O ovarian cystectomy Social History Smoking Status: Never smoker Second Hand Exposure: No; Do You Dip or Chew Tobacco: No; Hx Alcohol Use: No Hx Substance Use: No Preferred Language: Guinean Communication Ability: Effective Visual Impairment: Limited Nutritional Assistant Required: No Beliefs That Will Affect Care: Zoroastrianism Zoroastrianism Beliefs: Congregational marital status: / Current Living Situation: Alone Current Living Situation Comment: States she will be looking to move to assisted living Feels Safe at Home: Yes Assistive Devices: Cane and Walker Allergies Allergies Allergy/AdvReac Type Severity Reaction Status Date / Time cetirizine AdvReac Intermediate Hallucinati Verified 10/21/23 12:45 ng hydroxyzine AdvReac Intermediate Hallucinati Verified 10/21/23 12:45 ng Home Meds Home Medications Medication Instructions Recorded Confirmed apixaban 5 mg tablet (Eliquis) 5 mg PO AMHS 06/18/18 10/21/23 atorvastatin 40 mg tablet 40 mg PO QAM 06/18/18 10/21/23 insulin glargine 100 unit/mL (3 20 unit subcut BIDM 06/18/18 10/21/23 mL) subcutaneous pen (Lantus Solostar U-100 Insulin) metoprolol succinate 100 mg See Rx Instructions .Route .COMPLEX 06/18/18 10/21/23 tablet,extended release 24 hr multivitamin 1 tab PO QDL 06/18/18 10/21/23 nitroglycerin 0.4 mg sublingual 0.4 mg sublingual DIRECTED PRN 06/18/18 10/21/23 tablet (Nitrostat) Chest Pain oxybutynin chloride 5 mg tablet 5 mg PO BID 06/18/18 10/21/23 sacubitril 24 mg-valsartan 26 mg 0.5 tab PO AMHS 04/10/20 10/21/23 tablet (Entresto) glipizide 5 mg tablet 5 mg PO BIDM 04/11/20 10/21/23 acetaminophen 500 mg tablet 1,000 mg PO TID PRN PAIN/FEVER 05/18/22 10/21/23 (Tylenol Extra Strength) aspirin 81 mg tablet,delayed 81 mg PO QAM 05/18/22 10/21/23 release calcium carbonate 600 mg-vitamin 1 tab PO QDD 05/18/22 10/21/23 D3 10 mcg (400 unit) tablet (Calcium 600 + D(3)) cinnamon bark 500 mg capsule 500 mg PO QDD 05/18/22 10/21/23 (Cinnamon) loratadine 10 mg tablet (Claritin) 10 mg PO DAILY PRN Congestion 05/18/22 10/21/23 magnesium oxide 400 mg PO QDL 05/18/22 10/21/23 peg 400-propylene glycol (PF) 0.4 1 drp OPB DAILY PRN Dry Eyes 05/18/22 10/21/23 %-0.3 % eye drops in a dropperette (Systane (PF)) phenylephrine-acetaminophen 5 1 tab PO QID PRN Headache 05/18/22 10/21/23 mg-325 mg tablet (Tylenol Sinus Headache) torsemide 20 mg tablet 20 mg PO QAM diuretic 10/21/23 10/21/23 Previous Rx's Medication Instructions Recorded digoxin 125 mcg (0.125 mg) tablet 0.125 mg PO HS #30 tabs 05/26/22 midodrine 5 mg tablet 5 mg PO TID #90 tabs 05/26/22 Results & Data (ED) Vital Signs Vital Signs - 24 hr 10/21/23 11:00 10/21/23 11:00 10/21/23 11:18 Temperature 36.6 C Temperature Source Oral Pulse Rate 61 70 Respiratory Rate 16 Blood Pressure 124/53 L Blood Pressure Mean 76 Pulse Oximetry 93 95 Oxygen Delivery Method Room Air Room Air Sepsis Recent Fever Within 48 Hours No Sepsis New/Unexplained Change in Mental Status No Sepsis Action Taken by Nursing No Action Required Laboratory Data 10/21/23 11:33 10/21/23 11:33 Lab Results 10/21/23 10/21/23 Range/Units 11:33 14:02 WBC 10.80 (4.8-10.8) K/ul RBC 3.79 L (4.20-5.40) M/uL Hgb 10.0 L (12.0-16.0) g/dl Hct 33.5 L (37.0-47.0) % MCV 88.4 (80.0-100.0) fL MCH 26.4 (25.0-34.0) pg MCHC 29.9 L (32.0-36.0) g/dL RDW Std Deviation 45.3 (36.4-46.3) fL RDW Coeff of [place] 14.2 (11.5-14.5) % Plt Count 267 (130-400) K/uL MPV 9.7 (9.4-12.4) fL Immature Gran % (Auto) 0.5 % Neut % (Auto) 75.2 % Lymph % (Auto) 15.6 % [place] % (Auto) 7.3 % Eos % (Auto) 0.9 % Baso % (Auto) 0.5 % Neut # (Auto) 8.12 H (1.40-6.50) K/uL Lymph # (Auto) 1.69 (1.20-3.40) K/uL [place] # (Auto) 0.79 H (0.11-0.59) K/uL Eos # (Auto) 0.10 (0.00-0.50) K/uL Baso # (Auto) 0.05 (0.00-0.20) K/uL Immature Gran # (Auto) 0.05 (0.01-0.20) K/uL Sodium 138 (136-145) mmol/L Potassium 5.0 (3.5-5.1) mmol/L Chloride 99 (98-107) mmol/L Carbon Dioxide 34 H (21-32) mmol/L Anion Gap 5 (3-11) BUN 27 H (6-23) mg/dl Creatinine 0.88 (0.6-1.2) mg/dl Est Cr Clr Drug Dosing 60.2 ml/min Est GFR ( Amer) 72.4 ml/min Est GFR (Non-Af Amer) 62.5 ml/min BUN/Creatinine Ratio 30.7 H (10-20) Glucose 171 H (70-99(Fasting)) mg/dl Calcium 9.7 (8.6-10.3) mg/dl Total Bilirubin 0.7 (0.2-1.0) mg/dl AST 18 (13-39) U/L ALT 12 (7-52) U/L Alkaline Phosphatase 71 (34-104) U/L Troponin I High Sens 11.9 (0-14) pg/ml Total Protein 6.8 (6.0-8.3) gm/dl Albumin 3.5 (3.4-5.0) gm/dl Globulin 3.3 (2.5-4.0) gm/dl Albumin/Globulin Ratio 1.1 (0.9-2) Lipase 44 (11-82) U/L TSH 0.852 (0.300-4.500) uIu/ml Digoxin 1.3 (0.8-2.0) ng/ml Imaging Data Radiologist's Impression: Chest X-Ray 10/21/23 11:00 XR chest 1V portable HISTORY: Chest pain, nonspecific COMPARISON: Chest 05/18/2022. FINDINGS: Mild elevation of the right hemidiaphragm, unchanged. The cardiac silhouette remains mildly enlarged. Left-sided pacemaker again noted. Postoperative and degenerative changes within the right shoulder. Prior cholecystectomy. Stable bilateral hilar prominence and mild chronic interstitial thickening. No new focal lung consolidations to suggest pneumonia. No evidence for pulmonary edema. IMPRESSION: No significant change compared to the prior study. No acute process. ACT 112: Negative or not required by law. Electronically signed by: Zeyad Escalera M.D. 10/21/2023 11:59 AM Discharge Plan Visit Data Chief Complaint: Chest Pain Stated Complaint: CHEST PRESSURE ED Provider: Faustino Bender Discharge Problem: Chest pain, Shortness of breath, Anemia Forms Stand Alone Forms: [facility] Prescriptions Prescriptions: No Action multivitamin Tablet 1 tab PO QDL atorvastatin 40 mg Tablet 40 mg PO QAM metoprolol succinate 100 mg Tablet Extended Release 24 Hr See Rx Instructions .ROUTE .COMPLEX Rx Instructions: TAKES 150 MG QAM, THEN 100 MG QHS. nitroglycerin [Nitrostat] 0.4 mg Tablet, Sublingual 0.4 mg Sublingual DIRECTED PRN (Reason: Chest Pain) oxybutynin chloride 5 mg Tablet 5 mg PO BID Rx Instructions: take with lunch and at bedtime insulin glargine [Lantus Solostar U-100 Insulin] 100 unit/mL (3 mL) Insulin Pen 20 unit SUBCUT BIDM Eliquis 5 mg Tablet 5 mg PO AMHS Entresto 24-26 mg tablet 0.5 tab PO AMHS Rx Instructions: TAKES 1/2 TAB BID glipizide 5 mg tablet 5 mg PO BIDM aspirin 81 mg Tablet,Delayed Release (Dr/Ec) 81 mg PO QAM acetaminophen [Tylenol Extra Strength] 500 mg Tablet 1,000 mg PO TID PRN (Reason: PAIN/FEVER) loratadine [Claritin] 10 mg Tablet 10 mg PO DAILY PRN (Reason: Congestion) cinnamon bark [Cinnamon] 500 mg Capsule 500 mg PO QDD Systane (PF) 0.4-0.3 % Dropperette 1 drp OPB DAILY PRN (Reason: Dry Eyes) Tylenol Sinus Headache 5-325 mg Tablet 1 tab PO QID PRN (Reason: Headache) calcium carbonate-vitamin D3 [Calcium 600 + D(3)] 600 mg-10 mcg (400 unit) Tablet 1 tab PO QDD magnesium oxide 400 mg magnesium Tablet 400 mg PO QDL midodrine 5 mg tablet 5 mg PO TID Qty: 90 0RF Rx Instructions: do not give last dose of day after 6PM or within 4 hrs of bedtime digoxin 125 mcg (0.125 mg) tablet 0.125 mg PO HS Qty: 30 0RF Rx Instructions: TAKES MON, WED, & FRI AT HS. torsemide 20 mg tablet 20 mg PO QAM Referrals Referrals: Jason West MD [Primary Care Provider] - Discharge Problem: Chest pain Qualifiers: Chest pain type: unspecified Qualified Code(s): R07.9 - Chest pain, unspecified Anemia Qualifiers: Anemia type: unspecified type Qualified Code(s): D64.9 - Anemia, unspecified
--- NOTE | 2023-10-21 12:00 | XRay Report ---
XR chest 1V portable HISTORY: Chest pain, nonspecific COMPARISON: Chest 05/18/2022. FINDINGS: Mild elevation of the right hemidiaphragm, unchanged. The cardiac silhouette remains mildly enlarged. Left-sided pacemaker again noted. Postoperative and degenerative changes within the right shoulder. Prior cholecystectomy. Stable bilateral hilar prominence and mild chronic interstitial thic kening. No new focal lung consolidations to suggest pneumonia. No evidence for pulmonary edema. IMPRESSION: No significant change compared to the prior study. No acute process. ACT 112: Negative or not required by law. Electronically signed by: Zeyad Escalera M.D. 10/21/2023 11:59 AM
[2023-10-21 12:01] LABS: Basophils # (auto) 0.05 K/uL (0.00-0.20); Basophils % (auto) 0.5 %; Eosinophils % (auto) 0.9 %; Hematocrit (blood only) 33.5 % (37.0-47.0); Immature Granulocytes # (auto) 0.05 K/uL (0.01-0.20); Immature Granulocytes % (auto) 0.5 %; Lymphocytes # (auto) 1.69 K/uL (1.20-3.40); Lymphocytes % (auto) 15.6 %; Mean Corpuscular Hemoglobin 26.4 pg (25.0-34.0); Mean Corpuscular Hgb Conc 29.9 g/dL (32.0-36.0); Mean Corpuscular Volume 88.4 fL (80.0-100.0); Mean Platelet Volume 9.7 fL (9.4-12.4); Monocytes # (auto) 0.79 K/uL (0.11-0.59); Monocytes % (auto) 7.3 %; Neutrophils # (auto) 8.12 K/uL (1.40-6.50); Neutrophils % (auto) 75.2 %; Platelet Count 267 K/uL (130-400); RDW Coefficient of Variation 14.2 % (11.5-14.5); RDW Standard Deviation 45.3 fL (36.4-46.3); Red Blood Count 3.79 M/uL (4.20-5.40)
[2023-10-21 12:17] LABS: Albumin Globulin Ratio 1.1 (0.9-2); Albumin Level 3.5 gm/dl (3.4-5.0); BUN Creatinine Ratio 30.7 (10-20); Bilirubin,Total 0.7 mg/dl (0.2-1.0); Calcium 9.7 mg/dl (8.6-10.3); Creatinine Clr Calc Pharmacy 60.2 ml/min; Est GFR (African American) 72.4 ml/min; Est GFR (Non-African American) 62.5 ml/min; Globulin 3.3 gm/dl (2.5-4.0); Total Protein 6.8 gm/dl (6.0-8.3)
[2023-10-21 12:22] LABS: Troponin I High Sensitivity 11.9 pg/ml (0-14)
[2023-10-21] MEDS ORDERED: ONDANSETRON INJ 2 MG/ML 2 ML VIAL IV PRN (13:20)
[2023-10-21] MEDS ORDERED: MAGNESIUM HYDROXIDE SUSP 30 ML UDC PO PRN (13:20)
[2023-10-21] MEDS ORDERED: ALUMINUM/MAGNESIUM SUSP 30 ML UDC PO PRN (13:20)
--- NOTE | 2023-10-21 13:47 | History & Physical Report ---
Date of Service October 21, 2023 Assessment & Plan (1) Midsternal chest pain: (2) Coronary artery disease: (3) Pacemaker: (4) Dysphagia: (5) Paroxysmal A-fib: (6) DM type 2 (diabetes mellitus, type 2): (7) Hypertension: (8) Dyslipidemia: Plan 78 y/o presents to the ED today with complaints of chest pain and SOB with a headache. Today, she was proceeding to her PCP office and was walking inside her home with her four-wheeled walker. She was able to get to her door but then 'slumped over' onto her couch. Her AUTUMN was with her and reports that the episode lasted 2-3 minutes prior to her being arousable. She does not recall the event happening. She reports that this feels different than other times that she has 'passed out'. She denies hitting her head. She also reports that over the past week she has lost 7 pounds and attributes this to dysphagia that she has been having over the past few weeks. She reports that every time she eats or drinks anything it feels as though something is 'stuck' in her throat and she complains of 'watery mucus' regurgitating. She denies any esophageal difficulties prior to this and denies having GERD. She has a PMH that includes CAD, HTN, HLD, AF (On Eliquis), diabetes mellitus type 2, HFpEF, overactive bladder. 05/23 patient did have a Lexiscan nuke scan with no ischemia in 2004 she had a catheterization with no obstruction noted. ISABEL to LAD 2018. No known history of DERRICK. No leukocytosis, LFTs normal, otherwise labs unremarkable. Troponin pending. Last A1c 03/08/2023 7.5. Patient denies tobacco, alcohol, or recreational drug use. Patient will be admitted for further evaluation of her syncope, chest pain and dysphagia. Will review interrogation of pacer for any additional arrhythmia, consider orthostatic BP versus vasovagal versus neurologic origin. Heart monitor for any arrhythmic changes, trend troponin. Will check Orthostatic BP as patient remains on Midodrine. Patient expressing dysphagia; w ill ask GI and ST to weight in with concerns of dysphagia vs regurgitation. Syncope: Acute Patient with witnessed syncope lasting 2-3 minutes No recollection of event Consider diuretics (she takes Torsemide) and Midodrine as precipitants Ortho BPs ordered Troponin ordered ECHO ordered Head CT ordered Cardiology consult placed Atypical Chest pain: Took 2 sublingual nitro at home a few days ago with relief 1 spray Nitro via EMS with relief Troponin pending QTc 508 today Orthostatic BP's Repeat ordered Cardiology consult placed CAD: Chronic 05/23 Misa nuclear scan; no ischemia ISABEL to LAD 2017 Takes baby aspirin Dysphagia: Acute Reportedly clear mucus and food feeling "stuck" Denies pain with swallowing GI consult and speech therapy consult placed Pacemaker: Chronic 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 West Code Status: Full Code VTE Prophylaxis: On Eliquis I spent a total of 87 minutes coordinating, documenting, and providing care for this patient excluding time spent in the performance of separately billed services. All of the aforementioned completed while collaborating with the assigned attending physician for a full treatment plan. Please see their addendum for further details. History of Present Illness Chief Complaint: chest pain/dysphagia Primary Care Provider: Jason West MD Ms. Baig is a 78 year old that presents to the ED today with complaints of chest pain and SOB with a headache. Today, she was proceeding to her PCP office and was walking inside her home with her four-wheeled walker. She was able to get to her door but then 'slumped over' onto her couch. Her AUTUMN was with her and reports that the episode lasted 2-3 minutes prior to her being arousab le. She does not recall the event happening. She reports that this feels different than other times that she has 'passed out'. She denies hitting her head. She reports taking 2 SL Nitro over the past week with relief. She also reports that over the past week she has lost 7 pounds and attributes this to dysphagia that she has been having over the past few weeks. She reports that every time she eats or drinks anything it feels as though something is 'stuck' in her throat and she complains of 'watery mucus' regurgitating. She denies any esophageal difficulties prior to this and denies having GERD. She has a PMH that includes CAD, HTN, HLD, AF (On Eliquis), diabetes mellitus type 2, HFpEF, overactive bladder. 05/23 patient did have a Lexiscan nuke scan with no ischemia in 2004 she had a catheterization with no obstruction noted. ISABEL to LAD 2018. No known history of DERRICK. No leukocytosis, LFTs normal, otherwise labs unremarkable. Troponin pending. Last A1c 03/08/2023 7.5. Patient denies tobacco, alcohol, or recreational drug use. ECG today with V paced rhythm and slightly prolonged QTc. Comparison of ECG from 05/23 where she had AF RVR. Patient will be admitted for further evaluation of her syncope, chest pain and dysphagia. Will review interrogation of pacer for any additional arrhythmia, consider orthostatic BP versus vasovagal versus neurologic origin. Heart monitor for any arrhythmic changes, trend troponin. Will check Orthostatic BP as patient remains on Midodrine. Due to LOC, will obtain head CT. Patient expressing dysphagia; will ask GI and ST to weight in with concerns of dysphagia vs regurgitation. Allergies Allergy/AdvReac Type Severity Reaction Status Date / Time cetirizine AdvReac Intermediate Hallucinati Verified 10/21/23 12:45 ng hydroxyzine AdvReac Intermediate Hallucinati Verified 10/21/23 12:45 ng Home Medications Medication Instructions Recorded Confirmed Type apixaban 5 mg tablet (Eliquis) 5 mg PO AMHS 06/18/18 10/21/23 History atorvastatin 40 mg tablet 40 mg PO QAM 06/18/18 10/21/23 History insulin glargine 100 unit/mL (3 20 unit subcut BIDM 06/18/18 10/21/23 History mL) subcutaneous pen (Lantus Solostar U-100 Insulin) metoprolol succinate 100 mg See Rx Instructions .Route .COMPLEX 06/18/18 10/21/23 History tablet,extended release 24 hr multivitamin 1 tab PO QDL 06/18/18 10/21/23 History nitroglycerin 0.4 mg sublingual 0.4 mg sublingual DIRECTED PRN 06/18/18 10/21/23 History tablet (Nitrostat) Chest Pain oxybutynin chloride 5 mg tablet 5 mg PO BID 06/18/18 10/21/23 History sacubitril 24 mg-valsartan 26 mg 0.5 tab PO AMHS 04/10/20 10/21/23 History tablet (Entresto) glipizide 5 mg tablet 5 mg PO BIDM 04/11/20 10/21/23 History acetaminophen 500 mg tablet 1,000 mg PO TID PRN PAIN/FEVER 05/18/22 10/21/23 History (Tylenol Extra Strength) aspirin 81 mg tablet,delayed 81 mg PO QAM 05/18/22 10/21/23 History release calcium carbonate 600 mg-vitamin 1 tab PO QDD 05/18/22 10/21/23 History D3 10 mcg (400 unit) tablet (Calcium 600 + D(3)) cinnamon bark 500 mg capsule 500 mg PO QDD 05/18/22 10/21/23 History (Cinnamon) loratadine 10 mg tablet (Claritin) 10 mg PO DAILY PRN Congestion 05/18/22 10/21/23 History magnesium oxide 400 mg PO QDL 05/18/22 10/21/23 History peg 400-propylene glycol (PF) 0.4 1 drp OPB DAILY PRN Dry Eyes 05/18/22 10/21/23 History %-0.3 % eye drops in a dropperette (Systane (PF)) phenylephrine-acetaminophen 5 1 tab PO QID PRN Headache 05/18/22 10/21/23 History mg-325 mg tablet (Tylenol Sinus Headache) digoxin 125 mcg (0.125 mg) tablet 0.125 mg PO HS #30 tabs 05/26/22 10/21/23 Rx midodrine 5 mg tablet 5 mg PO TID #90 tabs 05/26/22 10/21/23 Rx torsemide 20 mg tablet 20 mg PO QAM diuretic 10/21/23 10/21/23 History Past Med/Surg History Medical History (Updated 10/21/23 @ 16:25 by KHADAR Kim) Pacemaker Dysphagia Postural dizziness with presyncope Diabetic polyneuropathy Orthostatic hypotension Atrial fibrillation with rapid ventricular response Chest pain Chest pain Acute on chronic diastolic (congestive) heart failure Ischemic cardiomyopathy Tachy-luis syndrome admitted for elective pacemaker. Underwent procedure no complications; monitored overnight and discharged home. Chronic diastolic HF (heart failure) Paroxysmal A-fib on Eliquis Hx of supraventricular tachycardia Coronary artery disease "anterior NM 11/10/17, LVEF 20-25%, PCI LAD with ISABEL" Hypertension Dyslipidemia DM type 2 (diabetes mellitus, type 2) Osteoarthritis Surgical History Status post coronary artery stent placement "PCI LAD with ISABEL 11/10/17" History of cholecystectomy History of tonsillectomy History of right knee joint replacement History of appendectomy H/O ovarian cystectomy Social History Smoking Status: Never smoker Second Hand Exposure: No; Do You Dip or Chew Tobacco: No; Hx Alcohol Use: No Hx Substance Use: No Preferred Language: Serbian Communication Ability: Effective Visual Impairment: Limited Extractor Filler Required: No Beliefs That Will Affect Care: Episcopalian Episcopalian Beliefs: Mosque marital status: / Current Living Situation: Alone Current Living Situation Comment: States she will be looking to move to assisted living Feels Safe at Home: Yes Assistive Devices: Cane and Walker Review of Systems Review of Systems: Neuro: (+) syncope, (-) trauma, slurred speech HEENT: (+) [place], (+) dizziness, (+) dysphagia, (-) visual or auditory changes CV: (+) CP, palpitations, (-) swelling Resp: (-) SOB GI: (-) appetite changes, N/V/D, bowel changes : (-) urinary changes Skin: (-) rashes Psych: (-) anxiety, depression Physical Exam Physical Exam: Neuro: AAOx4, PERRLA, no aphagia, memory changes, CNII-XII grossly intact HEENT: head normocephalic, atraumatic moist mucus membranes CV: S1/S2, (-) M/G/R, (-) edema, cap refill < 3 seconds Resp: Lungs CTA in all [place]. On RA GI: Abdomen S/NT/ND, Ax4 bowel sounds, (-) CVA tenderness Musculoskeletal: 5/5 B/L UE strength, 5/5 B/L LE strength. No gait disturbance Skin: (-) rashes , (-) erythema, (-) Petechiae. Psych: euthymic mood Results & Data Results & Data Vital Signs (Past 12 Hours) Vital Signs Temp Pulse Resp BP Pulse Ox O2 Del Method 10/21/23 11:18 70 10/21/23 11:00 95 Room Air 10/21/23 11:00 36.6 C 61 16 124/53 L 93 Room Air Laboratory Results Short CBC 10/21/23 Range/Units 11:33 WBC 10.80 (4.8-10.8) K/ul Hgb 10.0 L (12.0-16.0) g/dl Hct 33.5 L (37.0-47.0) % Plt Count 267 (130-400) K/uL BMP 10/21/23 11:33 Sodium 138 Potassium 5.0 Chloride 99 Carbon Dioxide 34 H BUN 27 H Creatinine 0.88 Glucose 171 H Calcium 9.7 Liver Function 10/21/23 Range/Units 11:33 Total Bilirubin 0.7 (0.2-1.0) mg/dl AST 18 (13-39) U/L ALT 12 (7-52) U/L Alkaline Phosphatase 71 (34-104) U/L Albumin 3.5 (3.4-5.0) gm/dl Diagnostic Findings Chest X-Ray 10/21/23 11:00 XR chest 1V portable HISTORY: Chest pain, nonspecific COMPARISON: Chest 05/18/2022. FINDINGS: Mild elevation of the right hemidiaphragm, unchanged. The cardiac autumn houette remains mildly enlarged. Left-sided pacemaker again noted. Postoperative and degenerative changes within the right shoulder. Prior cholecystectomy. Stable bilateral hilar prominence and mild chronic interstitial thickening. No new focal lung consolidations to suggest pneumonia. No evidence for pulmonary edema. IMPRESSION: No significant change compared to the prior study. No acute process. ACT 112: Negative or not required by law. Electronically signed by: Zeyad Escalera M.D. 10/21/2023 11:59 AM Code Status & VTE Plan Code Status Full code in the event of cardiac or respiratory arrest VTE Prophylaxis Plan VTE Prophylaxis will be ordered: Yes Supervising Physician Co-Signing Physician Notes I have seen and discussed the case with the collaborating advanced practitioner. I agree with the above H&P. I have reviewed and confirmed the patients medical history, the findings on physical examination, and the patients diagnosis and treatment plan with Elaine RUBALCAVA and agree with the information documented. In short, Ms. Baig is a 78 year old woman with history of CAD, HTN, HLD, AF (On Eliquis), diabetes mellitus type 2, HFpEF, overactive bladder, orthostatic hypotension on midodrine who is admitted for evaluation of chest pain, dysphagia, and syncopal episode. Patient states that she has experienced increased BROWN and chest pain that is alleviated with rest/nitro. She reports issues with swallowing, more marked by regurgitation and issues with solids that has been ongoing for weeks. Notably, her intake has decreased given the issue with swallowing. She states the syncopal episode occurred while ambulating, not necessarily while position change/ GENERAL APPEARANCE: AxOx4, generally well-appearing woman. no acute distress. HEENT: NC, AT. MMM. EOMI, clear conjunctiva, oropharynx clear. NECK: Supple without lymphadenopathy. No stiffness or restricted ROM. HEART: Normal rate and regular rhythm, normal S1/S1, no m/r/g LUNGS: CTAB, moving air well. No crackles or wheezes are heard. ABDOMEN: Soft, nontender, nondistended with good bowel sounds heard. BACK: No CVAT, no obvious deformity. EXTREMITIES: Without cyanosis, clubbing or edema. NEUROLOGICAL: Grossly nonfocal. Alert and oriented, moving all 4 extremities. CN not formally tested but appear grossly intact. Observed to ambulate with normal gait. Skin: Warm and dry without any rash. 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 #Paroxysmal supraventricular tachycardia Rate controlled. Continue Digoxin Anticoagulated with Eliquis without c/f bleed Pacemaker interrogation pending #HFpEF Appears stable - Continue Entresto, torsemide #Postural hypotension -On midodrine, thought to be polyneuropathy 2/2 diabetes #HLD Continue statin #Dysphagia #regurgitation -Concern with solids>liquids, no aspiration necessarily but regurgitation DDX eosinophilic esophagitis, oropharyngeal dysfunction -Swallow study, GI Rest of plan as above I spent a total of 25 minutes coordinating, documenting, and providing care for this patient excluding time spent in the performance of separately billed services. All of the aforementioned completed outside of collaborating with the assigned advanced practitioner for a full treatment plan. I have reviewed the advanced practitioner's documentation, and I agree with, and take responsibility for the plan of care (2) Coronary artery disease Associated angina: without angina Coronary Disease-Associated Artery/Lesion type: [place] artery [place] vs. transplanted heart: [place] heart Qualified Code(s): I25.10 - Atherosclerotic heart disease of [place] coronary artery without angina pectoris (7) Hypertension Hypertension type: essential hypertension Qualified Code(s): I10 - Essential (primary) hypertension
[2023-10-21 14:46] LABS: Thyroid Stimulating Hormone 0.852 uIu/ml (0.300-4.500)
[2023-10-21] MEDS ORDERED: GLUCOSE 40% GEL 15 GM TUBE PO PRN (16:35)
[2023-10-21] MEDS ORDERED: GLUCAGON FOR INJ 1 MG VIAL SQ PRN (16:35)
[2023-10-21] MEDS ORDERED: CARBOHYDRATES FOR HYPOGLYCEMIA PO PRN (16:35)
[2023-10-21] MEDS ORDERED: DEXTROSE 50% 50 ML SYRINGE IV PRN (16:35)
[2023-10-21] MEDS ORDERED: GLUCOSE 10 TAB/TUBE PO PRN (16:35)
[2023-10-21] MEDS ORDERED: PHARMACY GLYCEMIC MGMT CONSULT PRN (16:35)
[2023-10-21] MEDS: OPTIRAY 320 100ml IV ONE ×2 (17:26→18:07)
--- NOTE | 2023-10-21 18:23 | CT Scan Report ---
CT head/brain wo/w con CT DOSE: 1094.1 mGy.cm CLINICAL HISTORY: syncope TECHNIQUE: Multiaxial CT images of the head were performed both before and after the intravenous admi nistration of contrast. A dose lowering technique was utilized adhering to the principles of ALARA. COMPARISON STUDY: Head CT 05/18/2022. FINDINGS: The paranasal sinuses and mastoid air cells are clear. The calvarium and skull base are int act. The ventricles and sulci demonstrate mild age-related involutional changes. There is no mass, he matoma, midline shift, acute infarct. Postcontrast sequences show no areas of abnormal enhancement. IMPRESSION: No acute intracranial abnormality. ACT 112: Negative or not required by law. Electronically signed by: Zeyad Escalera M.D. 10/21/2023 6:20 PM
[2023-10-21] MEDS: oxyBUTYnin chloride 5 MG TAB PO SCH (21:09)
[2023-10-21] MEDS: METOPROLOL SUCC 50MG EXT REL TAB PO SCH (21:09)
[2023-10-21] MEDS: VALSARTAN/SACUBITRIL 26/24MG TAB PO SCH (21:09)
[2023-10-21] MEDS: MIDODRINE HCL 2.5 MG TAB PO SCH (21:10)
[2023-10-21] MEDS: APIXABAN 5 MG TABLET PO SCH (21:10)
[2023-10-21] MEDS: DIGOXIN 0.125 MG TAB PO SCH (21:10)
[2023-10-21] MEDS: INSULIN ASPART PER UNIT CHARGE SC SCH (21:38)
[2023-10-21] MEDS: LANTUS PER UNIT CHARGE SQ SCH (21:41)
[2023-10-22] MEDS: INSULIN ASPART PER UNIT CHARGE SC SCH (00:03)
--- OUTSIDE RECORDS SUMMARY | 2023-10-22 02:56 | External Medical Summary | Summary of Care ---
Author Name Unknown Organization [facility] Address [address] [place] [address] Phone [phone] Care Team Providers Care Media Associate Name Role Phone Jan Arita MD Primary Care Provider [phone]- [phone] Reason for Visit * Reason Onset Date Comments Medication Refill 09/21/2023 Encounter Details Date Type Department Care Team (Late st Contact Info) Description 09/21/2023 Refill [facility] [address] [place] [address] Jan Arita MD [address] [place] [address] Allergies Active Allergy Reactions Criticality Noted Date Comments Hydroxyzine Hcl 05/12/2012 halluzinating Cetirizine & Related 02/11/1999 HALLUCINATIONS documented as of this encounter (statuses as of 09/22/2023) Medications Medication Sig Dispensed Refills Start Date End Date Status MULTIVITAMIN/MINE RAL FORMULA TABS OR 1 TABLET DAILY 0 0 05/200 2 Active SYSTANE PRESERVATIVE FREE 0.4-0.3 % OP SOLNIndications:O ther anterior corneal dystrophies 1 gtt OU q2h WA 1 box 6 05/04/200 9 Active CALCIUM 1402-4509 MG-UNIT PO CHEW Take 1 Tablet by mouth in the morning. 0 Active Cinnamon 500 MG Capsule Take 2 Capsules by mouth in the morning. 0 Active ONETOUCH ULTRASOFT LANCETS MISCIndications:D M type 2 causing renal disease ([facility]) Use as directed daily. Use up to four times a day as directed. Dx E11.9 3 Box Dosing Unit 3 9 Active aspirin enteric coated 81 MG TBECIndications:C oronary artery disease involving [place] coronary artery of [place] heart without angina pectoris Take 1 Tab by mouth daily. 30 Tab 11 9 Active Loratadine 10 MG Oral Capsule Take 1 Capsule by mouth in the morning. 0 Active Magnesium 400 MG Capsule Take 1 by mouth daily. 30 Cap 11 0 Active acetaminophen (TYLENOL) 325 MG Tablet 2 Tablets. 0 0 Active Nitroglycerin 0.4 MG Sublingual Tablet Sublingual (Nitrostat)Indica tions:Coronary artery disease involving [place] coronary artery of [place] heart without angina pectoris,[place] (myocardial infarction) Place 1 Tablet under the tongue every 5 minutes as needed for Pain, Chest. 25 Tablet 5 3 Active Additional Information Patient not taking.Reported on 03/08/2023 Entresto 24-26 MG Oral Tablet (sacubitril-valsa rtan 24-26 mg per tab)Indications:C hronic systolic heart failure (HCC) Take 1 Tablet by mouth in the morning and 1 Tablet before bedtime. 180 Tablet 3 3 Active Apixaban 5 MG Oral Tablet (Eliquis)Indicati ons:PAF (paroxysmal atrial fibrillation) (HCC) Take 1 Tablet by mouth in the morning and 1 Tablet before bedtime. 180 Tablet 3 3 Active Midodrine HCl 5 MG Oral Tablet (Proamatine)Indic ations:Chronic systolic heart failure (HCC),Coronary artery disease involving [place] coronary artery of [place] heart without angina pectoris TAKE 1 TAB BY MOUTH SHORTLY BEFORE OR UPON RISING IN THE MORNING, AT MIDDAY, AND IN THE LATE AFTERNOON (NO LATER THAN 6PM) 270 Tablet 3 3 Active Insulin Pen Needle 32G X 5 MMIndications:DM type 2 causing renal disease, not at goal ([facility]) use to inject lantus twice per day 200 Each 3 3 Active OneTouch Verio In Vitro Strip (Glucose Blood)Indications :DM type 2 causing renal disease ([facility]) Check blood sugars one time daily. Dx E11.9 300 Strip 2 3 Active glipiZIDE 5 MG Oral Tablet (Glucotrol) Take 1 Tablet by mouth in the morning and 1 Tablet before bedtime. 30 minutes before a meal. 180 Tablet 1 3 Active Atorvastatin Calcium 40 MG Oral Tablet (Lipitor)Indicati ons:Coronary artery disease involving [place] coronary artery of [place] heart without angina pectoris,Dyslipid emia TAKE 1 TABLET DAILY IN THE MORNING 90 Tablet 3 3 Active Insulin Glargine Solostar 100 UNIT/ML Subcutaneous Solution Pen-injector (Lantus SoloStar)Indicati ons:DM type 2 causing renal disease, not at goal ([facility]) INJECT 20 UNITS SUBCUTANEOUSLY TWICE DAILY 30 mL 2 3 Active Digoxin 125 MCG Oral Tablet (Lanoxin)Indicati ons:Chronic systolic heart failure (HCC),Coronary artery disease involving [place] coronary artery of [place] heart without angina pectoris Take 1 Tablet by mouth at bedtime. 90 Tablet 3 4 Active Torsemide 20 MG Oral Tablet (Demadex) Take 1 Tablet by mouth in the morning. 90 Tablet 3 4 Active Metoprolol Succinate ER 100 MG Oral Tablet Extended Release 24 Hour (toPROL XL)Indications:Ch ronic systolic heart failure (HCC) TAKE 1 AND 1/2 TABLETS BY MOUTH IN THE MORNING AND 1 TABLET IN THE EVENING 230 Tablet 3 4 Active oxyBUTYnin Chloride 5 MG Oral Tablet (Ditropan) TAKE 1 TABLET 2 TIMES DAILY 180 Tablet 3 4 Active Oxybutynin Chloride 5 MG Oral Tablet (Ditropan) TAKE 1 TABLET 2 TIMES DAILY 180 Tablet 3 3 09/21/19 24 Discontinu ed(Refill) documented as of this encounter (statuses as of 09/22/2023) Active Problems Problem Noted Date Diagnosed Date Chronic kidney disease, stage 3a 01/14/2021 Overview: Per CKD protocol Type 2 diabetes mellitus wit h stage 3a chronic kidney disease 12/10/2020 Overview: Per CKD protocol Chronic systolic heart failure 11/21/2020 DM type 2 causing renal disease, 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, in full remission 12/07/2018 [place] (myocardial infarction) 03/31/2018 Heart failure, systolic, due to CAD 03/31/2018 Lymphedema of both lower extremities 03/31/2018 Dyslipidemia 02/18/2018 Coronary artery disease invo lving [place] coronary artery of [place] heart without angina pectoris 12/10/2017 PAF (paroxysmal atrial fibrillation) 12/10/2017 Type 2 diabetes mellitus wit h hemoglobin A1c goal of less than 8.0% 09/08/2013 Overview: ICD-10 update of inactive term DJD, CERVICAL SPINE 04/12/2002 GENERAL OSTEOARTHROSIS documented as of this encounter (statuses as of 09/22/2023) Resolved Problems Problem Noted Date Diagnosed Date Resolved Date Diabetes mellitus with stage 3 chronic kidney disease 05/15/2019 12/12/2020 Overview: Per CKD protocol Gastroesophageal reflux disease 12/30/2018 08/18/2019 CHF (congestive heart failure) 12/07/2018 12/30/2018 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 019 Systolic heart failure michela quinones to hypertension 12/07/2018 12/30/2018 Morbid obesity with BMI of 45.0-49.9, adult 03/31/2018 06/01/2022 PSVT (paroxysmal supraventri cular tachycardia) 12/10/2017 04/14/2019 Heart failure, systolic 11/17/2017 07/2 Body mass index (BMI) of 45. 0 to 49.9 in adult 05/03/2017 03/31/2018 Overview: Per Obesity protocol #1 Polymyalgia rheumatica 07/03/201309/28 Cellulitis of foot 11/30/2011 2 Edema 11/30/2011 11/30/2011 Proteinuria 11/30/2011 07/03/2013 DM type 2 causing renal disease, not at goal 2 04/14/2019 Edema 11/30/2011 07/03/2013 Cellulitis of foot 11/30/2011 3 Kidney disease, chronic, sta ge III (GFR 30-59 ml/min) 11/30/2011 10/03/2013 Overview: Per CKD protocol #1 Adult body mass index 50.0-59.9 06/19/2011 05/06/2017 Overview: Per Obesity protocol #1 Obesity, morbid (more than 1 00 lbs over ideal weight or BMI > 40) 10/29/2009 06/19/2011 Overview: Per Obesity Taxonomy ICD-10 update of inactive term HTN, goal below 130/80 08/28/200910/31 Overview: Per HTN Taxonomy. Type 2 diabetes mellitus wit h hemoglobin A1c goal of less than 7.0% 05/30/2009 11/30/2011 Overview: Per Diabetes Taxonomy. ICD-10 update of inactive term Other anterior corneal dystrophies 10/01/2008 03/31/2018 ADVANCE DIRECTIVE INFORMATION 05/12/2007 03/31/2018 Overview: Yes, Copy scanned at patient level in the electronic medical record.(Go to Action, Patient File to view) Patient aware they must notify their healthcare provider of changes. Other chest pain 09/23/2004 08/10/2010 Type 2 diabetes mellitus wit h hemoglobin A1c goal of less than 7.0% 09/05/2004 05/30/2009 Overview: Per Diabetes Taxonomy. ICD-10 update of inactive term Polyneuropathy in other dise ases classified elsewhere 04/24/2002 02/02/2017 NUMBNESS, LEFT HAND, LEFT TOES 04/12/2002 08/10/2010 SEBORRHEIC KERATOSIS 04/12/2002 013 NEVI 04/12/2002 07/03/2013 HEMANGIOMA SKIN 04/12/2002 07/03/2013 Edema 04/12/2002 08/10/2010 ADJ DISORDER W/DEPRES MOOD 05/17/2000 0 03/31/2018 HYPERTENSION NOS 11/26/1999 06/07/2009 Overview: Per HTN Taxonomy Respiratory abnormality 11/26/1999 120 09/2012 Overview: ICD-10 update of inactive term Allergic rhinitis 11/26/1999 03/31/2018 Myalgia and myositis 10/09/1999 013 ELECTROLYT-FLUID DIS NEC 02/11/199904/2011 HTN, goal below 140/90 08/28 Overview: Per HTN Taxonomy. OBESITY, UNSPECIFIED 010 Overview: Per Obesity Taxonomy Menopause 07/03/2013 Family history of other card iovascular diseases 08/10/2010 Overview: ICD-10 update of inactive term FAM HX-DIABETES MELLITUS 04/2011 documented as of this encounter (statuses as of 09/22/2023) Immunizations Name Administration Dates Next Due COVID-19 mRNA, LNP-s, No Pre serve, 2-Dose Series ([employer]) 07/23/2021,11/14/2020,10/24/2020 COVID-19, MRNA-LNP, 23-24, P F, 30 MCG/0.3 mL, 12 YRS AND ABOVE, IM ([employer]-Comirnat) 05/26/2023 Covid-19, Mrna, Lnp-s, Pf, B ivalent, 30 Mcg, IM, 12 yrs and above (Pfizer) 05/26/2022 Pneumococcal Conjugate Vacc, 13 Valent (Prevnar) 10/24/2014 Pneumococcal Polysaccharide PPV23 (Pneumovax) 12/28/2012,12/16/2006 RSV Vac., Bivalent, Perfusio n F, Pf,0.5 Ml (Abrysvo) 06/09/2023 Seasonal Influenza, PF, 6 M & above, IM , (FluLaval or Fluzone) 04/19/2020,04/04/2019 Seasonal Influenza, Quadriva lent Hd (Fluzone Hd) 05/26/2023 Seasonal Influenza, Quadriva lent Hd, 65+ Yrs 05/22/2022 Seasonal Influenza, Quadriva lent, No Preserve, IM 04/27/2018,06/16/2017,08/27/2016,04/23 Seasonal Influenza, Split, I IV3, With Preserve, Inj 04/23/2015,05/08/2014,05/02/2013,04/29,05/04/2011,05/23/2010,05/23/2010 ,05/17/2009,06/11/2008,06/24/2007,06/03 Seasonal Influenza, Trivalen t, Adjuvanted, 65+ yrs 04/30/2021 TDAP (age 10 and older)(Boostrix) 06/29/2023 TDAP (age 11 and older)(Adacel) 02/28/2008 Zoster Vaccine Recombinant (Shingrix) 12/07/2018 ,06/28/2018 documented as of this encounter Social History Tobacco Use Types Packs/Day Years Used Date Smoking Tobacco: Former Cigarettes 1.5 35 0 08/12/1964 - 08/12/1999 Smokeless Tobacco: Never Comments:10/25/98 Alcohol Use Standard Drinks/Week Comments Not Currently 0 (1 standard drink = 0.6 oz pur e alcohol) PHQ-2 Answer Date Recorded PHQ Adult Total Score 0 12/02/2022 Hunger Vital Sign Answer Date Recorded Within the past 12 months, y ou worried that your food would run out before you got the money to buy more. Never true 12/03/19 23 Within the past 12 months, t he food you bought just didn't last and you didn't have money to get more. Never true 12/02/2022 Sex and Gender Information Value Date Recorded Sex Assigned at Female 12/07/2018 9:04 AM EDT Gender Identity Female 12/07/2018 9:04 AM EDT Sexual Orientation Straight 12/07/2018 9: 04 AM EDT Job Start Date Occupation Industry Not on file Not on file Not on file documented as of this encounter Miscellaneous Notes * Telephone Encounter - Jan Arita MD - 09/22/2023 1:28 PM ESTSigned Prescriptions: Disp Refills oxyBUTYnin Chloride 5 MG Oral Tablet (Ditr*180 Ta*3 Sig: TAKE 1 TABLET 2 TIMES DAILYAuthorizing Provider: JAN ARITA * Telephone Encounter - Sosa Rosenberg LPN - 09/22/2023 7:42 AM ESTPending Prescriptions: Disp Refills oxyBUTYnin Chloride 5 MG Oral Tablet (Ditr*180 Ta*3 Sig: TAKE 1 TABLET 2 TIMES DAILY * Telephone Encounter - Imelda Lazaro - 09/21/2023 10:19 PM ESTPending Prescriptions: Disp Refills oxyBUTYnin Chloride 5 MG Oral Tablet (Ditr*180 Ta*3 Sig: TAKE 1TABLET 2 TIMES DAILY documented in this encounter Plan of Treatment Upcoming Encounters Date Type Department Care Team (Late st Contact Info) Description 11/16/2023 10:00 AM EDT Office Visit Cardiology, [facility] [address] [address] Nimo Sewell CRNP [address] [address] 12/31/2023 2:40 PM EDT Office Visit [facility] [address] [facility] [phone] Jan [facility] [address] [facility] [address] 03/08/2024 10:00 AM EDT Cardiac Studies Cardiology, [facility] [address] [facility] [place] [address] [facility] [address] [place] [address] Health Maintenance Due Date Last Done Comments Hepatitis C Screening 1963 Diabetic Foot Exam 03/17/2022 03/17/2021, 0 12/27/2019, 12/07/2018, Additional history exists Diabetic Eye Exam 08/15/2022 08/15/2021, , 03/28/2018, Additional history exists GFR 09/08/2023 03/08/2023, 03/0 09/2022, 01/13/2022, Additional history exists HbA1c 09/08/2023 03/08/2023, 03/0 09/2022, 01/13/2022, Additional history exists Albumin/Creatinine Ratio 10/03/20232 023, 08/28/2021, 11/18/2020, Additional history exists CKD PHOS USE SMARTSET 46713 10/03/2023 03/0 09/2022, 03/17/2021, 08/18/2019, Additional history exists Depression Screening 12/03/2023 12/02/2022 CKD HGB USE SMARTSET 81060 03/08/202403/08, 10/02/2022, 07/29/2021, Additional history exists DIG LEVEL FOR MEDICATION MONITORING YEARLY 03/08/2024 03/08/2023, 10/02/2022, 07/29/2021 DXA Scan 03/21/2026 03/21/2019, 07/02, 07/12/2013, Additional history exists DTaP,Tdap,and Td Vaccines (3 - Td or Tdap) 06/29/2033 06/29/2023, 02/28/2008, 05/02/1992 Pneumococcal Vaccine: 65+ Years Completed 10/24/2014, 12/28/2012, 12/16/2006, Additional history exists Zoster Vaccines Completed 12/07/2018, 06/28/2018 COVID-19 Vaccine Completed 05/26/2023, , 07/23/2021, Additional history exists Influenza Vaccine (FLU shot) Completed , 05/22/2022, 04/30/2021, Additional history exists GARDASIL-HPV IMMUNIZATION SERIES Aged Out No longer eligible based on patient's age to complete this topic Hepatitis B Aged Out No longer eligi ble based on patient's age to complete this topic MENINGOCOCCAL (MENACTRA/MENVEO) Aged Out No longer eligible based on patient's age to complete this topic documented as of this encounter Medical Devices Not on filedocumented as of this encounter Care Teams Media Associate Relationship Specialty Start Date End Date Jan Arita MD [address] [place] [address] PCP - General 02/06/03 documented as of this encounter
--- OUTSIDE RECORDS SUMMARY | 2023-10-22 02:56 | External Medical Summary | Summary of Care ---
Author Name Unknown Organization [facility] Address [address] [place] [address] Phone [phone] Care Team Providers Care [employer] Guidance Counselor Name Role Phone Jason West MD Primary Care Provider [phone]- [phone] Encounter Details Date Type Department Care Team (Late st Contact Info) Description 10/14/2023 Result Scan Unspecified Department Tristian Vaca, DO [address] [place] [address] <No scans attached> Allergies Active Allergy Reactions Criticality Noted Date Comments Hydroxyzine Hcl 05/12/2012 halluzinating Cetirizine & Related 02/11/1999 HALLUCINATIONS documented as of this encounter (statuses as of 10/14/2023) Medications Medication Sig Dispensed Refills Start Date End Date Status 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 0 Active Cinnamon 500 MG Capsule Take 2 Capsules by mouth in the morning. 0 Active ONETOUCH ULTRASOFT LANCETS MISCIndications:DM type 2 causing renal disease (HCC) Use as directed daily. Use up to four times a day as directed. Dx E11.9 3 Box Dosing Unit 3 09/13/2018 Active aspirin enteric coated 81 MG TBECIndications:Co ronary artery disease involving [place] coronary artery of [place] heart without angina pectoris Take 1 Tab by mouth daily. 30 Tab 11 07/17/2019 Active Loratadine 10 MG Oral Capsule Take 1 Capsule by mouth in the morning. 0 Active Magnesium 400 MG Capsule Take 1 by mouth daily. 30 Cap 11 01/11/2020 Active acetaminophen (TYLENOL) 325 MG Tablet 2 Tablets. 0 04/13/2020 Active Nitroglycerin 0.4 MG Sublingual Tablet Sublingual (Nitrostat)Indicat ions:Coronary artery disease involving [place] coronary artery of [place] heart without angina pectoris,[place] (myocardial infarction) Place 1 Tablet under the tongue every 5 minutes as needed for Pain, Chest. 25 Tablet 5 09/03/2022 Active Additional Information Patient not taking.Reported on 03/08/2023 Entresto 24-26 MG Oral Tablet (sacubitril-valsar napoles 24-26 mg per tab)Indications:Ch ronic systolic heart failure (HCC) Take 1 Tablet by mouth in the morning and 1 Tablet before bedtime. 180 Tablet 3 10/14/2022 Active Apixaban 5 MG Oral Tablet (Eliquis)Indicatio ns:PAF (paroxysmal atrial fibrillation) (HCC) Take 1 Tablet by mouth in the morning and 1 Tablet before bedtime. 180 Tablet 3 01/01/2023 Active Midodrine HCl 5 MG Oral Tablet (Proamatine)Indica tions:Chronic systolic heart failure (HCC),Coronary artery disease involving [place] coronary artery of [place] heart without angina pectoris TAKE 1 TAB BY MOUTH SHORTLY BEFORE OR UPON RISING IN THE MORNING, AT MIDDAY, AND IN THE LATE AFTERNOON (NO LATER THAN 6PM) 270 Tablet 3 03/25/2023 Active Insulin Pen Needle 32G X 5 MMIndications:DM type 2 causing renal disease, 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) use to inject lantus twice per day 200 Each 3 03/26/2023 Active OneTouch Verio In Vitro Strip (Glucose Blood)Indications: 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 Dx E11.9 300 Strip 2 05/03/2023 Active glipiZIDE 5 MG Oral Tablet (Glucotrol) Take 1 Tablet by mouth in the morning and 1 Tablet before bedtime. 30 minutes before a meal. 180 Tablet 1 05/27/2023 Active Atorvastatin Calcium 40 MG Oral Tablet (Lipitor)Indicatio ns:Coronary artery disease involving [place] coronary artery of [place] heart without angina pectoris,Dyslipide mona TAKE 1 TABLET DAILY IN THE MORNING 90 Tablet 3 05/27/2023 Active Insulin Glargine Solostar 100 UNIT/ML Subcutaneous Solution Pen-injector (Lantus SoloStar)Indicatio ns:DM type 2 causing renal disease, 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) INJECT 20 UNITS SUBCUTANEOUSLY TWICE DAILY 30 mL 2 07/08/2023 Active Digoxin 125 MCG Oral Tablet (Lanoxin)Indicatio ns:Chronic systolic heart failure (HCC),Coronary artery disease involving [place] coronary artery of [place] heart without angina pectoris Take 1 Tablet by mouth at bedtime. 90 Tablet 3 08/03/2023 Active Torsemide 20 MG Oral Tablet (Demadex) Take 1 Tablet by mouth in the morning. 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 12/10/2020 Overview: Per CKD protocol Chronic systolic heart failure 11/21/2020 DM type 2 causing renal disease, 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, in full remission 12/07/2018 [place] (myocardial infarction) 03/31/2018 Heart failure, systolic, due to CAD 03/31/2018 Lymphedema of both lower extremities 03/31/2018 Dyslipidemia 02/18/2018 Coronary artery disease invo lving [place] coronary artery of [place] heart without angina pectoris 12/10/2017 PAF (paroxysmal atrial fibrillation) 12/10/2017 Type 2 diabetes mellitus wit h hemoglobin A1c goal of less than 8.0% 09/08/2013 Overview: ICD-10 update of inactive term DJD, CERVICAL SPINE 04/12/2002 GENERAL OSTEOARTHROSIS documented as of this encounter (statuses as of 10/14/2023) Resolved Problems Problem Noted Date Diagnosed Date Resolved Date Diabetes mellitus with stage 3 chronic kidney disease 05/15/2019 12/12/2020 Overview: Per CKD protocol Gastroesophageal reflux disease 12/30/2018 08/18/2019 CHF (congestive heart failure) 12/07/2018 12/30/2018 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 019 Systolic heart failure secon joni to hypertension 12/07/2018 12/30/2018 Morbid obesity with BMI of 45.0-49.9, adult 03/31/2018 06/01/2022 PSVT (paroxysmal supraventri cular tachycardia) 12/10/2017 04/14/2019 Heart failure, systolic 11/17/201701/31 Body mass index (BMI) of 45. 0 [...] 06/07/2009 Overview: Per HTN Taxonomy Respiratory abnormality 11/26/199909/2012 Overview: ICD-10 update of inactive term Allergic rhinitis 11/26/1999 03/31/2018 Myalgia and myositis 10/09/1999 013 ELECTROLYT-FLUID DIS NEC 02/11/199904/2011 HTN, goal below 140/90 08/28 Overview: Per HTN Taxonomy. OBESITY, UNSPECIFIED 010 Overview: Per Obesity Taxonomy Menopause 07/03/2013 Family history of other card iovascular diseases 08/10/2010 Overview: ICD-10 update of inactive term FAM HX-DIABETES MELLITUS 04/2011 documented as of this encounter (statuses as of 10/14/2023) Immunizations Name Administration Dates Next Due COVID-19 mRNA, LNP-s, No Pre serve, 2-Dose Series ([employer]) 07/23/2021,11/14/2020,10/24/2020 COVID-19, MRNA-LNP, 23-24, P F, 30 MCG/0.3 mL, 12 YRS AND ABOVE, IM ([employer]) 05/26/2023 Covid-19, Mrna, Lnp-s, Pf, B ivalent, 30 Mcg, IM, 12 yrs and above ([employer]) 05/26/2022 Pneumococcal Conjugate Vacc, 13 Valent (Prevnar) [...] on file documented as of this encounter Plan of Treatment Upcoming Encounters Date Type Department Care Team (Late st Contact Info) Description 11/16/2023 10:00 AM EDT Office Visit Cardiology, [facility] [address] [address] Nimo Sewell CRNP [address] [place] [place] [address] 12/31/2023 2:40 PM EDT Office Visit [facility] [address] [facility] [phone] [facility] West [facility] [address] [facility] [address] 03/08/2024 10:00 AM EDT Cardiac Studies Cardiology, [facility] [address] [facility] [place] [address] [place], [facility] [address] [place] [address] Health Maintenance Due Date Last Done Comments Hepatitis C Screening 1963 Diabetic Foot Exam 03/17/2022 03/17/2021, 0 12/27/2019, 12/07/2018, Additional history exists Diabetic Eye Exam 08/15/2022 08/15/2021, , 03/28/2018, Additional history exists GFR 09/08/2023 03/08/2023, 03/0 09/2022, 01/13/2022, Additional history exists HbA1c 09/08/2023 03/08/2023, 03/0 09/2022, 01/13/2022, Additional history exists Albumin/Creatinine Ratio 10/03/202310/02/2 023, 08/28/2021, 11/18/2020, Additional history exists CKD PHOS USE SMARTSET 58167 10/03/2023 03/0 09/2022, 03/17/2021, 08/18/2019, Additional history exists Depression Screening 12/03/2023 12/02/2022 CKD HGB USE SMARTSET 49639 03/08/202403/08, 10/02/2022, 07/29/2021, Additional history exists DIG [...] Not on filedocumented as of this encounter Procedures Procedure Name Priority Date/Time Associated Diagnosis Comments CARDIOLOGY SCANNED RESULT 10/14/2023 documented in this encounter Results * CARDIOLOGY SCANNED RESULT (10/14/2023) 10/14/2023 Tristian Vaca DO OTHER documented in this encounter Care Teams [employer] Guidance Counselor Relationship Specialty Start Date End Date Jason West MD [address] [place] [address] PCP - General 02/06/03 documented as of this encounter
--- OUTSIDE RECORDS SUMMARY | 2023-10-22 02:56 | External Medical Summary | Summary of Care ---
Author Name Unknown Organization [facility] Address [address] [place] [address] Phone [phone] Care Team Providers Care Home Care Giver Name Role Phone Jason West MD Primary Care Provider [phone]- [phone] Reason for Visit * Reason Onset Date Comments Medication Refill 09/21/2023 Encounter Details Date Type Department Care Team (Late st Contact Info) Description 09/21/2023 Refill Cardiology, [facility] [address] [place] [address] Amrita Navarro PA-C [address] [place] [address] Chronic systolic heart failure (HCC) Allergies Active Allergy Reactions Criticality Noted Date Comments Hydroxyzine Hcl 05/12/2012 halluzinating Cetirizine & Related 02/11/1999 HALLUCINATIONS documented as of this encounter (statuses as of 09/22/2023) Medications Medication Sig Dispensed Refills Start Date End Date Status MULTIVITAMIN/MINE RAL FORMULA TABS OR 1 TABLET DAILY 0 0 2 Active SYSTANE PRESERVATIVE FREE 0.4-0.3 % OP SOLNIndications:O ther anterior corneal dystrophies 1 gtt OU q2h WA 1 box 6 9 Active CALCIUM 1818-6215 MG-UNIT PO CHEW Take 1 Tablet by mouth in the morning. 0 Active Cinnamon 500 MG Capsule Take 2 Capsules by mouth in the morning. 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 Use up to four times a day as directed. Dx E11.9 3 Box Dosing Unit 3 9 Active aspirin enteric coated 81 MG TBECIndications:C oronary artery disease involving [place] coronary artery of [place]ski heart without angina pectoris Take 1 Tab by mouth daily. 30 Tab 11 9 Active Loratadine 10 MG Oral Capsule Take 1 Capsule by mouth in the morning. 0 Active Magnesium 400 MG Capsule Take 1 by mouth daily. 30 Cap 11 0 Active acetaminophen (TYLENOL) 325 MG Tablet 2 Tablets. 0 0 Active Oxybutynin Chloride 5 MG Oral Tablet (Ditropan) TAKE 1 TABLET 2 TIMES DAILY 180 Tablet 3 3 Active Nitroglycerin 0.4 MG Sublingual Tablet Sublingual (Nitrostat)Indica tions:Coronary artery disease involving [place]ski coronary artery of [place] heart without angina pectoris,Old [place] (myocardial infarction) Place 1 Tablet under the [...] systolic heart failure (HCC),Coronary artery disease involving [place] coronary artery of [place] heart without angina pectoris TAKE 1 TAB BY MOUTH SHORTLY BEFORE OR UPON RISING IN THE MORNING, AT MIDDAY, AND IN THE LATE AFTERNOON (NO LATER THAN 6PM) 270 Tablet 3 3 Active Insulin Pen Needle 32G X 5 MMIndications:DM type 2 causing renal disease, not at goal ([facility]) use to inject lantus twice per day 200 Each 3 3 Active OneTouch Verio In Vitro Strip (Glucose Blood)Indications :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 Dx E11.9 300 Strip 2 3 Active glipiZIDE 5 MG Oral Tablet (Glucotrol) Take 1 Tablet by mouth in the morning and 1 Tablet before bedtime. 30 minutes before a meal. 180 Tablet 1 3 Active Atorvastatin Calcium 40 MG Oral Tablet (Lipitor)Indicati ons:Coronary artery disease involving [place] coronary artery of [place] heart without angina pectoris,Dyslipid emia TAKE 1 TABLET DAILY IN THE MORNING 90 Tablet 3 3 Active Insulin Glargine Solostar 100 UNIT/ML Subcutaneous Solution Pen-injector (Lantus SoloStar)Indicati ons:DM type 2 causing renal disease, not at goal ([facility]) INJECT 20 UNITS SUBCUTANEOUSLY TWICE DAILY 30 mL 2 3 Active Digoxin 125 MCG Oral Tablet (Lanoxin)Indicati ons:Chronic systolic heart failure (HCC),Coronary artery disease involving [place]ski coronary artery of bel[place]ski heart without angina pectoris Take 1 Tablet [...] THE EVENING 230 Tablet 3 4 Active Metoprolol Succinate ER 100 MG Oral Tablet Extended Release 24 Hour (toPROL XL)Indications:Ch ronic systolic heart failure (HCC) TAKE 1 AND 1/2 TABLETS BY MOUTH IN THE MORNING AND 1 TABLET IN THE EVENING 230 Tablet 3 3 09/21/19 24 Discontinu ed(Refill) [...] single episode, in full remission 12/07/2018 Old SD (myocardial infarction) 03/31/2018 Heart failure, systolic, due to CAD 03/31/2018 Lymphedema of both lower extremities 03/31/2018 Dyslipidemia 02/18/2018 Coronary artery disease invo lving belkofski coronary artery of belk[place]ski heart without angina pectoris 12/10/2017 PAF (paroxysmal [...] mRNA, LNP-s, No Pre serve, 2-Dose Series ([employer]) 07/23/2021,11/14/2020,10/24/2020 COVID-19, MRNA-LNP, 23-24, P F, 30 MCG/0.3 mL, 12 YRS AND ABOVE, IM ([employer]) 05/26/2023 Covid-19, Mrna, Lnp-s, Pf, B ivalent, [...] encounter Miscellaneous Notes * Telephone Encounter - Amrita Navarro PA-C - 09/22/2023 8:43 AM ESTSigned Prescriptions: Disp Refills Metoprolol Succinate ER 100 MG Oral Tablet*230 Ta*3 Sig: TAKE 1 AND 1/2 TABLETS BY MOUTH IN THE MORNING AND 1 TABLET IN THE EVENING Authorizing Provider: AMRITA NAVARRO * Telephone Encounter - Ginger Mccarthy COT - 09/22/2023 7:33 AM ESTPending Prescriptions: Disp Refills Metoprolol Succinate ER 100 MG Oral Tablet*230 Ta*3 Sig: TAKE 1 AND 1/2 TABLETS BY MOUTH IN THE MORNING AND 1 TABLET IN THE EVENING * Telephone Encounter - Ginger Mccarthy COT - 09/22/2023 7:33 AM EST Pharmacy change Did you pend patient's preferred pharmacy and medication before forwarding?yes Pharmacy: [facility] Pending Prescriptions: Disp Refills Metoprolol Succinate ER 100 MG Oral Table*230 Ta*3 Sig: TAKE 1 AND 1/2 TABLETS BY MOUTH IN THE MORNING AND 1 TABLET IN THE EVENING Last Visit: 03/08/2023 (in office), 07/12/2020 (telemedicine) Next Visit: 11/16/2023 If no future appointments scheduled, and last appointment is greater than a year ago, please schedule patient for a follow-up appointment Last date the medication was ordered: 06-23-2023 Is this request for a controlled substance?No Urine Drug Screen:No results found. However, due to the size of the patient record, not all encounters were searched. Please check Results Review for a complete set of results. Patient Phone Numbers Labs: Lab Results Component Value Date/Time CREAT 0.9 03/08/2023 09:52 AM CREAT 1.3 (H) 04/10/2020 04:40 PM POTASSIUM 4.3 03/08/2023 09:52 AM POTASSIUM 4.7 04/10/2020 04:40 PM TSH 1.19 03/08/2023 09:52 AM TSH 1.06 04/10/2020 04:40 PM LDLCALC 36 11/18/2020 08:25 AM LDLCALC 58 12/13/2018 08:28 AM LDLDIRECT 57 03/08/2023 09:52 AM LDLDIRECT NOT APPLICABLE 12/13/2018 08:28 AM LDLDIRECT 75 08/27/2016 11:17 AM ALT 17 03/08/2023 09:52 AM ALT 24 12/27/2019 10:07 AM HGBA1C 7.5 (H) 03/08/2023 09:52 AM HGBA1C 8.3 (H) 12/27/2019 10:07 AM documented in this encounter Plan of Treatment Upcoming Encounters Date Type Department Care Team (Late st Contact Info) Description 11/16/2023 10:00 AM EDT Office Visit Cardiology, [facility] [address] [facility] [place] [address] Nimo Sewell CRNP [facility] [place] [address] 12/31/2023 2:40 PM EDT [facility] [address] [facility] [phone] Jason West MD [address] [place] [facility] [place] [address] 03/08/2024 10:00 AM EDT Cardiac Studies Cardiology, [facility] [address] [facility] [place] [address] Delmar Palacios [address] [place] [address] Health Maintenance Due Date Last Done Comments Hepatitis C Screening 1963 Diabetic Foot Exam 03/17/2022 03/17/2021, 0 12/27/2019, 12/07/2018, Additional history exists Diabetic Eye Exam 08/15/2022 08/15/2021, , 03/28/2018, Additional history exists GFR 09/08/2023 03/08/2023, 03/0 09/2022, 01/13/2022, Additional history exists HbA1c 09/08/2023 03/08/2023, 03/0 09/2022, 01/13/2022, Additional history exists Albumin/Creatinine Ratio 10/03/2023 023, 08/28/2021, 11/18/2020, Additional history exists CKD PHOS USE SMARTSET 05787 10/03/2023 03/0 09/2022, 03/17/2021, 08/18/2019, Additional history exists Depression Screening 12/03/2023 12/02/2022 CKD HGB USE SMARTSET 89361 03/08/202403/08, 10/02/2022, 07/29/2021, Additional history exists DIG [...] Not on filedocumented as of this encounter Visit Diagnoses Diagnosis Chronic systolic heart failure (HCC) Chronic systolic heart failure documented in this encounter Care Teams Home Care Giver Relationship Specialty Start Date End Date Jason West MD [address] [place] [address] PCP - General 02/06/03 documented as of this encounter
--- OUTSIDE RECORDS SUMMARY | 2023-10-22 02:57 | External Medical Summary | Continuity of Care Document ---
Author Name Unknown Organization [id number] Address [address] [place] [id number] Care Team Providers Care Edge Burnisher Uppers Name Role Phone Jason West Primary Care Physician [phone] [facility] [id number] Date(s): 07/23/23 - 07/23/23 [facility] [address] [place] [id number] [facility] [address] [place] [address] Encounter Diagnosis Diabetes(Discharge Diagnosis) - 07/23/23 Tinea unguium(Discharge Diagnosis) - 07/23/23 Discharge Disposition: Home or Self Care Attending Physician: PERAL Wilkinson Christina L Allergies, Adverse Reactions, Alerts Substance Reaction Severity Status Atarax Hallucinations Moderate Active Assessment and Plan Extracted from: Title:Follow Up Visit Author:PEARL Wilkinson, Zurdo Hermosillo Date:07/23/23 1.Diabetes 2.Tinea unguium -Patient unable to provide self care to toenails due todiabetes - verbal consent obtained for debridement -Recommend toenail debridement -Patient had toenails of bilateral digits 1-5 debrided using nail nippers to tolerance, no bleeding noted -Patient instructed to use emery board to nails once per week -Patient had no ingrown toenails or infection noted -Patient is to follow up in6 months for treatment if needed in the future Medications aspirin 81 mg oral delayed release tablet Start: 01/04/20 9:56:00 EDT, 81 Unknown, Oral Start Date: 01/04/20 Status: Ordered atorvastatin 40 mg oral tablet Start: 01/04/20 9:56:00 EDT, 40 Unknown, Oral Start Date: 01/04/20 Status: Ordered cinnamon 500 mg oral capsule Start: 01/04/20 9:57:00 EDT, 500 Unknown, Oral Start Date: 01/04/20 Status: Ordered Claritin Liqui-Gels 10 mg oral capsule Start: 01/04/20 9:57:00 EDT, 10 Unknown, Oral Start Date: 01/04/20 Status: Ordered Diflucan 150 mg oral tablet Start: 01/04/20 9:57:00 EDT Start Date: 01/04/20 Status: Ordered digoxin 125 mcg (0.125 mg) oral tablet Start: 09/12/21 15:21:00 EST Start Date: 09/12/21 Status: Ordered Eliquis 5 mg oral tablet Start: 01/04/20 9:57:00 EDT, 5 Unknown, Oral Start Date: 01/04/20 Status: Ordered Entresto 24 mg-26 mg oral tablet Start: 09/12/21 15:21:00 EST, 1 tab, PO, bid Start Date: 09/12/21 Status: Ordered glipiZIDE 5 mg oral tablet Start: 12/30/22 14:53:00 EDT Start Date: 12/30/22 Status: Ordered Lantus Solostar Pen 100 units/mL subcutaneous solution Start: 01/04/20 9:58:00 EDT Start Date: 01/04/20 Status: Ordered metoprolol succinate 100 mg oral tablet, extended release Start: 01/04/20 9:58:00 EDT, 100 Unknown, Oral Start Date: 01/04/20 Status: Ordered midodrine 5 mg oral tablet Start: 09/02/22 8:44:00 EST, 270 each Start Date: 09/02/22 Status: Ordered nitroglycerin 0.4 mg sublingual tablet Start: 01/04/20 9:58:00 EDT, 0.4 Unknown, Sublingual Start Date: 01/04/20 Status: Ordered oxybutynin 5 mg oral tablet Start: 01/04/20 9:58:00 EDT, 5 Unknown, Oral Start Date: 01/04/20 Status: Ordered torsemide 20 mg oral tablet Start: 01/04/20 9:58:00 EDT, 20 Unknown, Oral Start Date: 01/04/20 Status: Ordered Mental Status 07/23/23 Barriers to Learning one year None evide nt Mandatory Health Literacy Documentation Yes Health Literacy Communication Barriers N ever Primary Language German Problem List Condition Confirmation Course Effective Dates Status Health St atus Informant CHF (congestive heart failure) Confirmed Active Diabetes Confirmed Active High blood pressure Confirmed Active Tinea unguium Confirmed Active Diagnosis Diagnosis Type Effective Dates Health Status Cl inical Service Informant Diabetes Discharge Diagnosis 07/23/23 Tinea unguium Discharge Diagnosis 07/23/23 Vital Signs Most recent to oldest [Reference Range]: 1 Height 161.7 cm (07/23/23 11:38 AM) Patient Weight 109.6 kg (07/23/23 11:38 AM) Body Mass Index 41.92 kg/m2 (07/23/23 11:38 AM) Social History Social History Type Response Smoking Status Never smoked cigaret rigoberto Sex Female Ortho Outpt Note * PEARL Wilkinson, Shannon Hermosillo: PERFORM Event Display: Ortho Outpt Note Authored Date: Chief Complaint nail care ,stubbed right 5tth digit and concerned with blodd blister Primary Care Provider MD Jenna, Jason Melchor Subjective Patient is a very pleasant 78-year-old female presenting today for care last seen December 30, 2022. Notes that she stubbed her right fifth digit and developed a blood blisterhowever [facility] also had the same concern of a right foot blood blisterand noted it was almost healed at that visit. -Noted today. Review of Systems Diabetes Objective Vitals & Measurements WT:109.600kg(Dosing) WT:109.6kg Physical Exam Problem focused bilateral feet: Dorsalis pedis pulse is nonpalpable, posterior tibial pulses nonpalpable. Patient has significantdorsal foot swelling as well as lower extremity swelling bilaterally related to her lymphedema. Capillary refill time is slightly delayed. Turgor pressure is normal. Pedal hair is absent bilater ally. Significant swelling noted bilateral lower extremities related to CHF Significant swelling bilateral ankles patient additionally has a history of multiple ankle fractures bilateral lower extremities Neuro vascular status is diminished bilaterally patient has no feeling in the distal toes bilaterally the only areas she was able to feel the monofilament was in the medial arch bilaterally. Proprioception is absent bilaterally, light touch is absent bilaterally. Toenails of digits1 through 5 of bilateral feet with elongation, thickening, dystrophy, incurvation and pain recommend debridement Stable right fifth toehistory of blood blister area is now dried and healed clinical photo in chart Multiple healed abrasionsright footgreat toe and third toe clinical photo in chart Skin is clean dry and intact without maceration or breakdown interspaces intact. Images 2023-07-23 11:41:52 2023-07-23 11:45:13 Assessment/Plan 1.Diabetes 2.Tinea unguium -Patient unable to provide self care to toenails due todiabetes - verbal consent obtained for debridement -Recommend toenail debridement -Patient had toenails of bilateral digits 1-5 debrided using nail nippers to tolerance, no bleedingnoted -Patient instructed to use emery board to nails once per week -Patient had no ingrown toenails or infection noted -Patient is to follow up in6 months for treatment if needed in the future Electronic Signature on File Electronically Reviewed/Signed by: Shannon Wilkinson DPM Author Signature Dt/Tm:07/23/2023 11:49 AM Division of Sports Medicine CLR Patient Care team information Care Team Personnel Name: MD West Brett R Position: Referring DIRECT Member Role: Primary Care Provider Address: Address: [address] [place] [id number] [place]
--- OUTSIDE RECORDS SUMMARY | 2023-10-22 02:57 | External Medical Summary | Summary of Care ---
Author Name Unknown Organization [facility] Address [address] [place] [address] Phone [phone] Care Team Providers Care Senior Investment Manager Name Role Phone Jason West MD Primary Care Provider [phone]- [phone] Reason for Visit * Reason Onset Date Comments Health Maintenance 08/25/2023 Encounter Details Date Type Department Care Team (Late st Contact Info) Description 08/25/2023 Telephone [facility] [address] [place] [address] Jason West MD [address] [place] [address] Health Maintenance Allergies Active Allergy Reactions Criticality Noted Date Comments Hydroxyzine Hcl 05/12/2012 halluzinating Cetirizine & Related 02/11/1999 HALLUCINATIONS documented as of this encounter (statuses as of 08/25/2023) Medications Medication Sig Dispensed Refills Start Date End Date Status MULTIVITAMIN/TIMBER MANAGEMENT ASSISTANT AL FORMULA TABS OR 1 TABLET DAILY 0 0 12/02/2001 Active SYSTANE PRESERVATIVE FREE 0.4-0.3 % OP SOLNIndications:Ot her anterior corneal dystrophies 1 gtt OU q2h WA 1 box 6 12/03/2008 Active CALCIUM 3759-3970 MG-UNIT PO CHEW Take 1 Tablet by [...] 81 MG TBECIndications:Co ronary artery disease involving [place] coronary artery of [place] heart without angina pectoris Take 1 Tab by mouth daily. 30 Tab 11 07/17/2019 Active Loratadine 10 MG Oral Capsule Take 1 Capsule by mouth in the morning. 0 Active Magnesium 400 MG Capsule Take 1 by mouth daily. 30 Cap 11 01/11/2020 Active acetaminophen (TYLENOL) 325 MG Tablet 2 Tablets. 0 04/13/2020 Active Oxybutynin Chloride 5 MG Oral Tablet (Ditropan) TAKE 1 TABLET 2 TIMES DAILY 180 Tablet 3 08/28/2022 Active Nitroglycerin 0.4 MG Sublingual Tablet Sublingual (Nitrostat)Indicat ions:Coronary artery disease involving [place] coronary artery of [place] heart without angina pectoris,Old [place] (myocardial infarction) Place 1 Tablet under the [...] systolic heart failure (HCC),Coronary artery disease involving [place] coronary artery of [place] heart without angina pectoris TAKE 1 TAB BY MOUTH SHORTLY BEFORE OR UPON RISING IN THE MORNING, AT MIDDAY, AND IN THE LATE AFTERNOON (NO LATER THAN 6PM) 270 Tablet 3 03/25/2023 Active Insulin Pen Needle 32G X 5 MMIndications:DM type 2 causing renal disease, 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) use to inject lantus twice per day 200 Each 3 03/26/2023 Active LinusToindiana Cronin In Vitro Strip (Glucose Blood)Indications: DM type [...] Oral Tablet (Lipitor)Indicatio ns:Coronary artery disease involving [place] coronary artery of [place] heart without angina pectoris,Dyslipide mona TAKE 1 TABLET DAILY IN THE MORNING 90 Tablet 3 05/27/2023 Active Metoprolol Succinate ER 100 MG Oral Tablet Extended Release 24 Hour (toPROL XL)Indications:Chr onic systolic heart failure (HCC) TAKE 1 AND 1/2 TABLETS BY MOUTH IN THE MORNING AND 1 TABLET IN THE EVENING 230 Tablet 3 06/23/2023 Active Insulin Glargine Solostar 100 UNIT/ML Subcutaneous Solution Pen-injector (Lantus SoloStar)Indicatio ns:DM type 2 causing renal disease, 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) INJECT 20 UNITS SUBCUTANEOUSLY TWICE DAILY 30 mL 2 07/08/2023 Active Digoxin 125 MCG Oral Tablet (Lanoxin)Indicatio ns:Chronic systolic heart failure (HCC),Coronary artery disease involving [place] coronary artery of [place] heart without angina pectoris Take 1 Tablet by mouth at bedtime. 90 Tablet 3 08/03/2023 Active Torsemide 20 MG Oral Tablet (Demadex) Take 1 Tablet by mouth in the morning. 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, in full remission 12/07/2018 Old CO (myocardial infarction) 03/31/2018 Heart failure, systolic, due to CAD 03/31/2018 Lymphedema of both lower extremities 03/31/2018 Dyslipidemia 02/18/2018 Coronary artery disease invo lving [place] coronary artery of [place] heart without angina pectoris 12/10/2017 PAF (paroxysmal atrial fibrillation) 12/10/2017 Type 2 diabetes mellitus wit h hemoglobin A1c goal of less than 8.0% 09/08/2013 Overview: ICD-10 update of inactive term DJD, CERVICAL SPINE 04/12/2002 GENERAL OSTEOARTHROSIS documented as of this encounter (statuses as of 08/25/2023) Resolved Problems Problem Noted Date Diagnosed Date [...] as of this encounter (statuses as of 08/25/2023) Immunizations Name Administration Dates Next Due COVID-19 mRNA, LNP-s, No Pre serve, 2-Dose Series ([employer]) 07/23/2021,11/14/2020,10/24/2020 COVID-19, MRNA-LNP, 23-24, P F, 30 MCG/0.3 mL, 12 YRS AND ABOVE, IM ([employer]) 05/26/2023 Covid-19, Mrna, Lnp-s, Pf, B ivalent, 30 Mcg, IM, 12 yrs and above ([employer]) 05/26/2022 Pneumococcal Conjugate Vacc, 13 Valent (Prevnar) [...] Date Smoking Tobacco: Former Cigarettes 1.5 35 Q uit: 08/12/1999 Smokeless Tobacco: Never Comments:10/25/98 Alcohol Use [...] encounter Miscellaneous Notes * Telephone Encounter - Denia Edouard LPN - 08/25/2023 12:01 PM EST Care Gaps Comprehensive Care Outreach Last Office/Telemedicine Visit: 06/29/2023 (in office), Visit date not found (telemedicine) Next Office Visit: 09/06/2023 Hemoglobin AIC Results: Lab Results Component Value Date/Time HEMOGLOBIN A1C - [facility] 7.5 (H) 03/08/2023 09:52 AM HEMOGLOBIN A1C - [facility] 8.0 (H) 10/02/2022 10:16 AM HEMOGLOBIN A1C - [facility] 7.4 (H) 01/13/2022 09:27 AM HEMOGLOBIN A1C - [facility] 8.3 (H) 12/27/2019 10:07 AM HEMOGLOBIN A1C - [facility] 7.9 (H) 08/18/2019 09:22 AM HEMOGLOBIN A1C - [facility] 7.4 (H) 04/14/2019 08:31 AM Reviewed Health Maintenance below: Health Maintenance Topic Date Due Hepatitis C Screening Never done Hepatitis B (1 of 3 - Risk 3-dose series) Never done Diabetic Foot Exam 03/17/2022 Diabetic Eye Exam 08/15/2022 HbA1c 09/08/2023 Albumin/Creatinine Ratio 10/03/2023 GFR 09/08/2023 CKD PHOS USE SMARTSET 10898 10/03/2023 Eye labs Care Gap Outreach Action Taken: Left message 1 documented in this encounter Plan of Treatment Upcoming Encounters Date Type Department Care Team (Late st Contact Info) Description 09/06/2023 9:20 AM EST Office Visit [place] [address] [facility] [place] [phone] Sita Lopez MD [address] [place] [facility] [place] [address] 11/16/2023 10:00 AM EDT [facility] [address] Nimo Sewell CRNP [address] [facility] [address] 12/31/2023 2:40 PM EDT Office Visit [facility] [address] [place] [facility] [place] [phone] Jason West MD [address] [place] [facility] [place] [address] 03/08/2024 10:00 AM EDT Cardiac Studies Cardiology, [facility] [address] [facility] [place] [address] Delmar Palacios [address] [place] [address] Health Maintenance Due Date Last Done Comments Hepatitis C Screening 1963 Hepatitis B (1 of 3 - Risk 3-dose series) 2004 Diabetic Foot Exam 03/17/2022 03/17/2021, 0 12/27/2019, 12/07/2018, Additional history exists Diabetic Eye Exam 08/15/2022 08/15/2021, , 03/28/2018, Additional history exists GFR 09/08/2023 03/08/2023, 03/0 09/2022, 01/13/2022, Additional history exists HbA1c 09/08/2023 03/08/2023, 03/0 09/2022, 01/13/2022, Additional history exists Albumin/Creatinine Ratio 10/03/2023 023, 08/28/2021, 11/18/2020, Additional history exists CKD PHOS USE SMARTSET 30168 10/03/2023 03/0 09/2022, 03/17/2021, 08/18/2019, Additional history exists Depression Screening 12/03/2023 12/02/2022 CKD HGB USE SMARTSET 39385 03/08/202403/08, 10/02/2022, 07/29/2021, Additional history exists DIG [...] filedocumented as of this encounter Care Teams Senior Investment Manager Relationship Specialty Start Date End Date Jason West MD [address] [place] [address] PCP - General 02/06/03 documented as of this encounter
--- OUTSIDE RECORDS SUMMARY | 2023-10-22 02:57 | External Medical Summary | Summary of Care ---
Author Name Unknown Organization [facility] Address [address] [facility] [place] [address] Phone [phone] Care Team Providers Care Nurse Healthcare Manager Name Role Phone Jason West MD Primary Care Provider [phone]- [phone] Reason for Visit * Reason Onset Date Comments Medication Refill 08/01/2023 Encounter Details Date Type Department Care Team (Late st Contact Info) Description 08/01/2023 Refill Cardiology [facility] [address] [place] [address] Amrita Viera, PA-C [address] [place] [address] Chronic systolic heart failure (HCC); Coronary artery disease involving [place] coronary artery of [place] heart without angina pectoris Allergies Active Allergy Reactions Criticality Noted Date Comments Hydroxyzine Hcl 05/12/2012 halluzinating Cetirizine & Related 02/11/1999 HALLUCINATIONS documented as of this encounter (statuses as of 08/03/2023) Medications Medication Sig Dispensed Refills Start Date End Date Status MULTIVITAMIN/MINE RAL FORMULA TABS OR 1 TABLET DAILY 0 0 2 Active SYSTANE PRESERVATIVE FREE 0.4-0.3 % OP SOLNIndications:O ther anterior corneal dystrophies 1 gtt OU q2h WA 1 box 6 05/04/200 9 Active CALCIUM 1387-7271 MG-UNIT PO CHEW Take 1 Tablet by [...] 81 MG TBECIndications:C oronary artery disease involving [place] coronary artery of [place] heart without angina pectoris Take 1 Tab [...] Tablet Sublingual (Nitrostat)Indica tions:Coronary artery disease involving [place] coronary artery of [place] heart without angina pectoris,Old [place] (myocardial infarction) Place 1 Tablet under the [...] before bedtime. 180 Tablet 3 3 Active Torsemide 20 MG Oral Tablet (Demadex) Take 1 Tablet by mouth in the morning. 180 Tablet 3 3 Active Midodrine HCl 5 MG Oral Tablet (Proamatine)Indic ations:Chronic systolic heart failure (HCC),Coronary artery disease involving [place] coronary artery of [place] heart without angina pectoris TAKE 1 TAB [...] Oral Tablet (Lipitor)Indicati ons:Coronary artery disease involving [place] coronary artery of [place] heart without angina pectoris,Dyslipid emia TAKE 1 TABLET DAILY IN THE MORNING 90 Tablet 3 3 Active Metoprolol Succinate ER 100 MG Oral Tablet Extended Release 24 Hour (toPROL XL)Indications:Ch ronic systolic heart failure (HCC) TAKE 1 AND 1/2 TABLETS BY MOUTH IN THE MORNING AND 1 TABLET IN THE EVENING 230 Tablet 3 3 Active Insulin Glargine Solostar 100 UNIT/ML Subcutaneous Solution Pen-injector (Lantus SoloStar)Indicati ons:DM type 2 causing renal disease, 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) INJECT 20 UNITS SUBCUTANEOUSLY TWICE DAILY 30 mL 2 3 Active Digoxin 125 MCG Oral Tablet (Lanoxin)Indicati ons:Chronic systolic heart failure (HCC),Coronary artery disease involving [place] coronary artery of [place] heart without angina pectoris Take 1 Tablet by mouth at bedtime. 90 Tablet 3 4 Active Digoxin 125 MCG Oral Tablet (Lanoxin)Indicati ons:Chronic systolic heart failure (HCC),Coronary artery disease involving [place] coronary artery of [place] heart without angina pectoris Take 1 Tablet by mouth at bedtime. 90 Tablet 3 3 08/01/20 23 Discontinu ed(Refill) documented as of this encounter (statuses as of 08/03/2023) Active Problems Problem Noted Date Diagnosed Date Chronic kidney disease, stage 3a 01/14/2021 Overview: Per CKD protocol Type 2 diabetes mellitus wit h stage 3a chronic kidney disease 12/10/2020 Overview: Per CKD protocol Chronic systolic heart failure 11/21/2020 DM type 2 causing renal disease, 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, in full remission 12/07/2018 Old [place] (myocardial infarction) 03/31/2018 Heart failure, systolic, due to CAD 03/31/2018 Lymphedema of both lower extremities 03/31/2018 Dyslipidemia 02/18/2018 Coronary artery disease invo lving [place] coronary artery of [place] heart without angina pectoris 12/10/2017 PAF (paroxysmal atrial fibrillation) 12/10/2017 Type 2 diabetes mellitus wit h hemoglobin A1c goal of less than 8.0% 09/08/2013 Overview: ICD-10 update of inactive term DJD, CERVICAL SPINE 04/12/2002 GENERAL OSTEOARTHROSIS documented as of this encounter (statuses as of 08/03/2023) Resolved Problems Problem Noted Date Diagnosed Date [...] as of this encounter (statuses as of 08/03/2023) Immunizations Name Administration Dates Next Due COVID-19 mRNA, LNP-s, No Pre serve, 2-Dose Series ([employer]ovation) 07/23/2021,11/14/2020,10/24/2020 COVID-19, MRNA-LNP, 23-24, P F, 30 MCG/0.3 mL, 12 YRS AND ABOVE, IM (Web[employer]-Comirnaty) 05/26/2023 Covid-19, Mrna, Lnp-s, Pf, B ivalent, [...] Miscellaneous Notes * Telephone Encounter - Amrita Viera PA-C - 08/03/2023 9:03 AM ESTSigned Prescriptions: Disp Refills Digoxin 125 MCG Oral Tablet (Lanoxin) 90 Tab*3 Sig: Take 1 Tablet by mouth at bedtime. Authorizing Provider: MELANIE, AMRITA S * Telephone Encounter - Lacey Holliday RN - 08/03/2023 8:48 AM ESTPending Prescriptions: Disp Refills Digoxin 125 MCG Oral Tablet (Lanoxin) 90 Tab*3 Sig: Take 1 Tablet by mouth at bedtime. * Telephone Encounter - Lacey Holliday RN - 08/03/2023 8:48 AM EST Pending Prescriptions: Disp Refills Digoxin 125 MCG Oral Tablet (Lanoxin) 90 Tab*3 Sig: Take 1 Tablet by mouth at bedtime. documented in this encounter Plan of Treatment Upcoming Encounters Date Type Department Care Team (Late st Contact Info) Description 09/16/2023 10:00 AM EST Office Visit Cardiology, [facility] [address] [facility] [place] [address] Amrita Viera PA-C [address] [place] [address] 12/31/2023 2:40 PM EDT Office Visit [place] [id number] [facility] [place] [address] Jason West MD [address] [place] [address] 03/08/2024 10:00 AM EDT Cardiac Studies Cardiology, [facility] [address] [facility] [place] [address] [place], Pacer [facility] [address] [place] [address] Health Maintenance Due Date Last Done Comments [...] Additional history exists CKD PHOS USE SMARTSET 87718 10/03/2023 03/0 09/2022, 03/17/2021, 08/18/2019, Additional history exists Depression Screening 12/03/2023 12/02/2022 CKD HGB USE SMARTSET 85745 03/08/202403/08, 10/02/2022, 07/29/2021, Additional history exists DIG [...] heart failure (HCC) Chronic systolic heart failure Coronary artery disease involving [place] coronary artery of [place] heart without angina pectoris documented in this encounter Care Teams Nurse Healthcare Manager Relationship Specialty Start Date End Date Jason West MD [address] [place] [address] PCP - General 02/06/03 documented as of this encounter
--- OUTSIDE RECORDS SUMMARY | 2023-10-22 02:57 | External Medical Summary | Summary of Care ---
Author Name Unknown Organization [facility] Address [address] [place] [address] Phone [phone] Care Team Providers Care Night Time Nanny Name Role Phone Jan Arita MD Primary Care Provider [phone]- [phone] Reason for Visit * Reason Onset Date Comments Medication Refill 07/07/2023 Encounter Details Date Type Department Care Team (Late st Contact Info) Description 07/07/2023 Refill [facility] [address] [place] [address] Jan Arita MD [address] [place] [address] DM type 2 causing renal disease, 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) Allergies Active Allergy Reactions Criticality Noted Date Comments Hydroxyzine Hcl 05/12/2012 halluzinating Cetirizine & Related 02/11/1999 HALLUCINATIONS documented as of this encounter (statuses as of 07/08/2023) Medications Medication Sig Dispensed Refills Start Date End Date Status MULTIVITAMIN/MINE RAL FORMULA TABS OR 1 TABLET DAILY 0 0 2 Active SYSTANE PRESERVATIVE FREE 0.4-0.3 % OP SOLNIndications:O ther anterior corneal dystrophies 1 gtt OU q2h WA 1 box 6 9 Active CALCIUM 6192-2990 MG-UNIT PO CHEW Take 1 Tablet by [...] 81 MG TBECIndications:C oronary artery disease involving [place] coronary artery of [place] heart without angina pectoris Take 1 Tab by mouth daily. 30 Tab 11 9 Active Loratadine 10 MG Oral Capsule Take 1 Capsule by mouth in the morning. 0 Active Magnesium 400 MG Capsule Take 1 by mouth daily. 30 Cap 11 0 Active acetaminophen (TYLENOL) 325 MG Tablet 2 Tablets. 0 0 Active Digoxin 125 MCG Oral Tablet (Lanoxin)Indicati ons:Chronic systolic heart failure (HCC),Coronary artery disease involving [place] coronary artery of [place] heart without angina pectoris Take 1 Tablet (125 mcg) by mouth at bedtime. 90 Tablet 3 2 Active Oxybutynin Chloride 5 MG Oral Tablet (Ditropan) TAKE 1 TABLET 2 TIMES DAILY 180 Tablet 3 3 Active Nitroglycerin 0.4 MG Sublingual Tablet Sublingual (Nitrostat)Indica tions:Coronary artery disease involving [place] coronary artery of [place] heart without angina pectoris,Old [place] (myocardial infarction) Place 1 Tablet under the [...] systolic heart failure (HCC),Coronary artery disease involving [place] coronary artery of [place] heart without angina pectoris TAKE 1 TAB [...] Oral Tablet (Lipitor)Indicati ons:Coronary artery disease involving [place] coronary artery of [place] heart without angina pectoris,Dyslipid emia TAKE 1 [...] TWICE DAILY 30 mL 2 3 Active Insulin Glargine Solostar 100 UNIT/ML Subcutaneous Solution Pen-injector (Lantus SoloStar)Indicati ons:DM type 2 causing renal disease, 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) INJECT 20 UNITS SUBCUTANEOUSLY TWICE DAILY 30 mL 3 2 07/07/20 23 Discontinu ed(Refill) documented as of this encounter (statuses as of 07/08/2023) Active Problems Problem Noted Date Diagnosed Date Chronic kidney disease, stage 3a 01/14/2021 Overview: Per CKD protocol Type 2 diabetes mellitus wit h stage 3a chronic kidney disease 12/10/2020 Overview: Per CKD protocol Chronic systolic heart failure 11/21/2020 DM type 2 causing renal disease, 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, in full remission 12/07/2018 Old [place] (myocardial infarction) 03/31/2018 Heart failure, systolic, due to CAD 03/31/2018 Lymphedema of both lower extremities 03/31/2018 Dyslipidemia 02/18/2018 Coronary artery disease invo lving [place] coronary artery of [place] heart without angina pectoris 12/10/2017 PAF (paroxysmal atrial fibrillation) 12/10/2017 Type 2 diabetes mellitus wit h hemoglobin A1c goal of less than 8.0% 09/08/2013 Overview: ICD-10 update of inactive term DJD, CERVICAL SPINE 04/12/2002 GENERAL OSTEOARTHROSIS documented as of this encounter (statuses as of 07/08/2023) Resolved Problems Problem Noted Date Diagnosed Date Resolved Date Diabetes mellitus with stage 3 chronic kidney disease 05/15/2019 12/12/2020 Overview: Per CKD protocol Gastroesophageal reflux disease 12/30/2018 08/18/2019 CHF (congestive heart failure) 12/07/2018 12/30/2018 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 019 Systolic heart failure michela joni to hypertension 12/07/2018 12/30/2018 Morbid obesity [...] as of this encounter (statuses as of 07/08/2023) Immunizations Name Administration Dates Next Due COVID-19 mRNA, LNP-s, No Pre serve, 2-Dose Series (ReachForce) 07/23/2021,11/14/2020,10/24/2020 COVID-19, MRNA-LNP, 23-24, P F, 30 MCG/0.3 mL, 12 YRS AND ABOVE, IM (Mob[employer]-Comirnaty) 05/26/2023 Covid-19, Mrna, Lnp-s, Pf, B ivalent, 30 Mcg, IM, 12 yrs and above (Pfizer) 05/26/2022 Pneumococcal Conjugate Vacc, 13 Valent (Prevnar) 10/24/2014 Pneumococcal Polysaccharide PPV23 (Pneumovax) 12/28/2012,12/16/2006 RSV Vac., Bivalent, Perfusio n F, Pf,0.5 Ml (Abrysvo) 06/09/2023 SEASONAL INFLUENZA, PF, 6 M & Above, IM , (FLULAVAL or FLUZONE) 04/19/2020,04/04/2019 Seasonal Influenza, Quadriva lent Hd (Fluzone [...] encounter Miscellaneous Notes * Telephone Encounter - Katelyn Lemon [facility] - 07/08/2023 9:37 AM ESTSigned Prescriptions: Disp Refills Insulin Glargine Solostar 100 UNIT/ML Subc*30 mL 2 Sig: INJECT 20 UNITS SUBCUTANEOUSLY TWICE DAILYAuthorizing Provider: JAN ARITA User: SHRADDHA, KATELYN MARÍA documented in this encounter Plan of Treatment Upcoming Encounters Date Type Department Care Team (Late st Contact Info) Description 09/16/2023 10:00 AM EST Office Visit Cardiology, [facility] [address] [place] [address] Aurelio Viera PA-C [address] [place] [address] 12/31/2023 2:40 PM EDT Office Visit [facility] [address] [place] [address] Jan Arita MD [address] [place] [address] 03/08/2024 10:00 AM EDT Cardiac Studies Cardiology, [facility] [place] [address] [address] [facility] [address] [facility] [place] [address] Health Maintenance Due Date Last Done Comments [...] Additional history exists CKD PHOS USE SMARTSET 28226 10/03/2023 03/0 09/2022, 03/17/2021, 08/18/2019, Additional history exists Depression Screening 12/03/2023 12/02/2022 CKD HGB USE SMARTSET 96948 03/08/202403/08, 10/02/2022, 07/29/2021, Additional history exists DIG [...] as of this encounter Visit Diagnoses Diagnosis DM type 2 causing renal disease, 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) Type II or unspecified type diabetes mellitus with renal manifestations, not stated as uncontrolled documented in this encounter Care Teams Night Time Nanny Relationship Specialty Start Date End Date Jan Arita MD [address] [place] [facility] [place] [address] PCP - General 02/06/03 documented as of this encounter
--- OUTSIDE RECORDS SUMMARY | 2023-10-22 02:57 | External Medical Summary | Summary of Care ---
Author Name Unknown Organization [facility] Address [address] [facility] [facility] [address] Phone [phone] Care Team Providers Care Realtime Court Reporter Name Role Phone Jason West MD Primary Care Provider +1- [phone] Reason for Visit * Reason Onset Date Comments Medication Refill 07/24/2023 Encounter Details Date Type Department Care Team (Late st Contact Info) Description 07/24/2023 Refill Cardiology [facility] [address] [place] [address] Amrita Navarro, PA-C [address] [place] [address] Chronic systolic heart failure (HCC); Coronary artery disease involving [place] coronary artery of [place] heart without angina pectoris Allergies Active Allergy Reactions Criticality Noted Date Comments Hydroxyzine Hcl 05/12/2012 halluzinating Cetirizine & Related 02/11/1999 HALLUCINATIONS documented as of this encounter (statuses as of 07/28/2023) Medications Medication Sig Dispensed Refills Start Date End Date Status MULTIVITAMIN/MINE RAL FORMULA TABS OR 1 TABLET DAILY 0 0 2 Active SYSTANE PRESERVATIVE FREE 0.4-0.3 % OP SOLNIndications:O ther anterior corneal dystrophies 1 gtt OU q2h WA 1 box 6 05/04/200 9 Active CALCIUM 6708-4125 MG-UNIT PO CHEW Take 1 Tablet by [...] 81 MG TBECIndications:C oronary artery disease involving [place] coronary artery of [place] heart without angina pectoris Take 1 Tab [...] Tablet Sublingual (Nitrostat)Indica tions:Coronary artery disease involving [place] coronary artery of [place] heart without angina pectoris,Old [place] (myocardial infarction) [...] systolic heart failure (HCC),Coronary artery disease involving [place] coronary artery of [place] heart without angina pectoris TAKE 1 TAB [...] Oral Tablet (Lipitor)Indicati ons:Coronary artery disease involving [place] coronary artery of [place] heart without angina pectoris,Dyslipid emia TAKE 1 [...] systolic heart failure (HCC),Coronary artery disease involving [place] coronary artery of [place] heart without angina pectoris Take 1 Tablet by mouth at bedtime. 90 Tablet 3 3 Active Digoxin 125 MCG Oral Tablet (Lanoxin)Indicati ons:Chronic systolic heart failure (HCC),Coronary artery disease involving [place] coronary artery of [place] heart without angina pectoris Take 1 Tablet (125 mcg) by mouth at bedtime. 90 Tablet 3 2 07/24/20 23 Discontinu ed(Refill) documented as of this encounter (statuses as of 07/28/2023) Active Problems Problem Noted Date Diagnosed Date [...] Dyslipidemia 02/18/2018 Coronary artery disease invo lving [place] coronary artery of [place] heart without angina pectoris 12/10/2017 PAF (paroxysmal atrial fibrillation) 12/10/2017 Type 2 diabetes mellitus wit h hemoglobin A1c goal of less than 8.0% 09/08/2013 Overview: ICD-10 update of inactive term DJD, CERVICAL SPINE 04/12/2002 GENERAL OSTEOARTHROSIS documented as of this encounter (statuses as of 07/28/2023) Resolved Problems Problem Noted Date Diagnosed Date [...] as of this encounter (statuses as of 07/28/2023) Immunizations Name Administration Dates Next Due COVID-19 mRNA, LNP-s, No Pre serve, 2-Dose Series (Proxino) 07/23/2021,11/14/2020,10/24/2020 COVID-19, MRNA-LNP, 23-24, P F, 30 MCG/0.3 mL, 12 YRS AND ABOVE, IM ([employer]-Comirnat) 05/26/2023 Covid-19, Mrna, Lnp-s, Pf, B ivalent, [...] Telephone Encounter - Amrita Navarro PA-C - 07/28/2023 2:35 PM ESTSigned Prescriptions: Disp Refills Digoxin 125 MCG Oral Tablet (Lanoxin) 90 Tab*3 Sig: Take 1 Tablet by mouth at bedtime. Authorizing Provider: AMRITA NAVARRO * Telephone Encounter - Yesica Trinidad CMA - 07/28/2023 1:56 PM ESTPending Prescriptions: Disp Refills Digoxin 125 MCG Oral Tablet (Lanoxin) 90 Tab*3 Sig: Take 1 Tablet by mouth at bedtime. * [facility]27/[facility] 3:06 PM ESTPending Prescriptions: Disp Refills Digoxin 125 MCG Oral Tablet (Lanoxin) 90 Tab*3 Sig: Take 1 Tablet by mouth at bedtime. documented in this encounter Plan of Treatment Upcoming Encounters Date Type Department Care Team (Late st Contact Info) Description 09/16/2023 10:00 AM EST Office Visit Cardiology, [facility] [address] [address] Amrita Navarro PA-C [address] [place] [address] 12/31/2023 2:40 PM EDT Office [facility] [place] [address] [place] [address] Jason West MD [address] [place] [address] 03/08/2024 10:00 AM EDT Cardiac Studies Cardiology, [facility] [address] [facility] [place] [address] [facility] [address] [facility] [address] [place] [address] Health Maintenance Due Date Last Done Comments [...] Additional history exists CKD PHOS USE SMARTSET 07197 10/03/2023 03/0 09/2022, 03/17/2021, 08/18/2019, Additional history exists Depression Screening 12/03/2023 12/02/2022 CKD HGB USE SMARTSET 18563 03/08/202403/08, 10/02/2022, 07/29/2021, Additional history exists DIG [...] systolic heart failure Coronary artery disease involving [place] coronary artery of [place] heart without angina pectoris documented in this encounter Care Teams Realtime Court Reporter Relationship Specialty Start Date End Date Jason West MD [address] [place] [address] PCP - General 02/06/03 documented as of this encounter
--- OUTSIDE RECORDS SUMMARY | 2023-10-22 02:58 | External Medical Summary | Summary of Care ---
Author Name Unknown Organization [facility] Address [address] [place] [address] Phone [phone] Care Team Providers Care Technology Integration Specialist Name Role Phone Jason West MD Primary Care Provider [phone]- [phone] Reason for Visit * Reason Comments eRx-Medication Refill Encounter Details Date Type Department Care Team (Late st Contact Info) Description 05/27/2023 Refill Cardiology, [facility] [address] [place] [address] Amrita Navarro, PA-C [address] [facility] [place] [address] Coronary artery disease involving [place] coronary artery of [place] heart without angina pectoris; Dyslipidemia Allergies Active Allergy Reactions Criticality Noted Date Comments Hydroxyzine Hcl 05/12/2012 halluzinating Cetirizine & Related 02/11/1999 HALLUCINATIONS documented as of this encounter (statuses as of 05/27/2023) Medications Medication Sig Dispensed Refills Start Date End Date Status MULTIVITAMIN/MIN ERAL FORMULA TABS OR 1 TABLET DAILY 0 0 2 Active SYSTANE PRESERVATIVE FREE 0.4-0.3 % OP SOLNIndications: Other anterior corneal dystrophies 1 gtt OU q2h WA 1 box 6 9 Active CALCIUM 1055-8134 MG-UNIT PO CHEW Take 1 Tablet by mouth in the morning. 0 Active Cinnamon 500 MG Capsule Take 2 Capsules by mouth in the morning. 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 Use up to four times a day as directed. Dx E11.9 3 Box Dosing Unit 3 9 Active aspirin enteric coated 81 MG TBECIndications: Coronary artery disease involving [place] coronary artery of [place] heart without angina pectoris Take 1 Tab by mouth daily. 30 Tab 11 9 Active Loratadine 10 MG Oral Capsule Take 1 Capsule by mouth in the morning. 0 Active Magnesium 400 MG Capsule Take 1 by mouth daily. 30 Cap 11 0 Active acetaminophen (TYLENOL) 325 MG Tablet 2 Tablets. 0 0 Active Insulin Glargine Solostar 100 UNIT/ML Subcutaneous Solution Pen-injector (Lantus SoloStar)Indicat ions:DM type 2 causing renal disease, 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) INJECT 20 UNITS SUBCUTANEOUSLY TWICE DAILY 30 mL 3 2 Active Metoprolol Succinate ER 100 MG Oral Tablet Extended Release 24 Hour (toPROL XL)Indications:C hronic systolic heart failure (HCC) TAKE 1 AND 1/2 TABLETS IN THE MORNING AND TAKE 1 TABLET IN THE EVENING 224 Tablet 3 2 Active Digoxin 125 MCG Oral Tablet (Lanoxin)Indicat ions:Chronic systolic heart failure (HCC),Coronary artery disease involving [place] coronary artery of [place] heart without angina pectoris Take 1 Tablet (125 mcg) by mouth at bedtime. 90 Tablet 3 2 Active Oxybutynin Chloride 5 MG Oral Tablet (Ditropan) TAKE 1 TABLET 2 TIMES DAILY 180 Tablet 3 3 Active Nitroglycerin 0.4 MG Sublingual Tablet Sublingual (Nitrostat)Indic ations:Coronary artery disease involving [place] coronary artery of [place] heart without angina pectoris,Old [place] (myocardial infarction) Place 1 Tablet under the tongue every 5 minutes as needed for Pain, Chest. 25 Tablet 5 3 Active Additional Information Patient not taking.Reported on 03/08/2023 Entresto 24-26 MG Oral Tablet (sacubitril-vals alon 24-26 mg per tab)Indications: Chronic systolic heart failure (HCC) Take 1 Tablet by mouth in the morning and 1 Tablet before bedtime. 180 Tablet 3 3 Active Apixaban 5 MG Oral Tablet (Eliquis)Indicat ions:PAF (paroxysmal atrial fibrillation) (HCC) Take 1 Tablet by mouth in the morning and 1 Tablet before bedtime. 180 Tablet 3 3 Active Torsemide 20 MG Oral Tablet (Demadex) Take 1 Tablet by mouth in the morning. 180 Tablet 3 3 Active Midodrine HCl 5 MG Oral Tablet (Proamatine)Gretchen cations:Chronic systolic heart failure (HCC),Coronary artery disease involving [place] coronary artery of [place] heart without angina pectoris TAKE 1 TAB BY MOUTH SHORTLY BEFORE OR UPON RISING IN THE MORNING, AT MIDDAY, AND IN THE LATE AFTERNOON (NO LATER THAN 6PM) 270 Tablet 3 3 Active Insulin Pen Needle 32G X 5 MMIndications:DM type 2 causing renal disease, not at goal ([facility]) use to inject lantus twice per day 200 Each 3 3 Active OneTouch Verio In Vitro Strip (Glucose Blood)Indication s:DM type 2 causing renal disease ([facility]) Check blood sugars one time daily. Dx E11.9 300 Strip 2 3 Active COVID-19 mRNA Vaccine 12 years and above Pfizer 30 MCG/0.3 ML IM SUSP Inject into a large muscle as directed 0.3 mL 0 3 Active glipiZIDE 5 MG Oral Tablet (Glucotrol) Take 1 Tablet by mouth in the morning and 1 Tablet before bedtime. 30 minutes before a meal. 180 Tablet 1 3 Active Atorvastatin Calcium 40 MG Oral Tablet (Lipitor)Indicat ions:Coronary artery disease involving [place] coronary artery of [place] heart without angina pectoris,Dyslipi demia TAKE 1 TABLET DAILY IN THE MORNING 90 Tablet 3 3 Active Atorvastatin Calcium 40 MG Oral Tablet (Lipitor)Indicat ions:Coronary artery disease involving [place] coronary artery of [place] heart without angina pectoris,Dyslipi demia Take 1 Tablet (40 mg) by mouth in the morning. 90 Tablet 3 2 05/27/20 23 Discontinued documented as of this encounter (statuses as of 05/27/2023) Active Problems Problem Noted Date Diagnosed Date Chronic kidney disease, stage 3a 01/14/2021 Overview: Per CKD protocol Type 2 diabetes mellitus wit h stage 3a chronic kidney disease 12/10/2020 Overview: Per CKD protocol Chronic systolic heart failure 11/21/2020 DM type 2 causing renal disease, 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, in full remission 12/07/2018 [place] (myocardial infarction) 03/31/2018 Heart failure, systolic, due to CAD 03/31/2018 Lymphedema of both lower extremities 03/31/2018 Dyslipidemia 02/18/2018 Coronary artery disease invo lving [place] coronary artery of [place] heart without angina pectoris 12/10/2017 PAF (paroxysmal atrial fibrillation) 12/10/2017 Type 2 diabetes mellitus wit h hemoglobin A1c goal of less than 8.0% 09/08/2013 Overview: ICD-10 update of inactive term DJD, CERVICAL SPINE 04/12/2002 GENERAL OSTEOARTHROSIS documented as of this encounter (statuses as of 05/27/2023) Resolved Problems Problem Noted Date Diagnosed Date [...] as of this encounter (statuses as of 05/27/2023) Immunizations Name Administration Dates Next Due COVID-19 mRNA, LNP-s, No Pre serve, 2-Dose Series ([facility]) 07/23/2021,11/14/2020,10/24/2020 Covid-19, Mrna, Lnp-s, Pf, B ivalent, 30 Mcg, IM, 12 yrs and above ([facility]) 05/26/2022 Pneumococcal Conjugate Vacc, 13 Valent (Prevnar) 10/24/2014 Pneumococcal Polysaccharide PPV23 (Pneumovax) 12/28/2012,12/16/2006 SEASONAL INFLUENZA, PF, 6 M & Above, IM , (FLULAVAL or FLUZONE) 04/19/2020,04/04/2019 Seasonal Influenza, Quadriva lent Hd (Fluzone Hd) 05/26/2023 Seasonal Influenza, Quadriva lent Hd, 65+ Yrs 05/22/2022 Seasonal Influenza, Quadriva lent, No Preserve, IM 04/27/2018,06/16/2017,08/27/2016,04/23 Seasonal Influenza, Split, I IV3, With Preserve, Inj 04/23/2015,05/08/2014,05/02/2013,04/29,05/04/2011,05/23/2010,05/23/2010 ,05/17/2009,06/11/2008,06/24/2007,06/03 Seasonal Influenza, Trivalen t, Adjuvanted, 65+ yrs 04/30/2021 TDAP (age 11 and older)(Adacel) 02/28/2008 Zoster [...] Telephone Encounter - Amrita Navarro PA-C - 05/27/2023 1:53 PM EDTSigned Prescriptions: Disp Refills Atorvastatin Calcium 40 MG Oral Tablet (Li*90 Tab*3 Sig: TAKE 1 TABLET DAILY IN THE MORNING Authorizing Provider: AMRITA NAVARRO * Telephone Encounter - SAGE Ordaz - 05/27/2023 1:34 PM EDTPending Prescriptions: Disp Refills Atorvastatin Calcium 40 MG Oral Tablet (Li*90 Tab*3 Sig: TAKE 1 TABLET DAILY IN THE MORNING * Telephone Encounter - SAGE Ordaz - 05/27/2023 1:34 PM EDT Did you pend patient's preferred pharmacy and medication before forwarding?yes Pharmacy: [facility]- [place] Pending Prescriptions: Disp Refills Atorvastatin Calcium 40 MG Oral Tablet (L*90 Tab*3 Sig: TAKE 1 TABLET DAILY IN THE MORNING Last Visit: 03/08/2023 (in office), 07/12/2020 (telemedicine) Next Visit: 09/16/2023 If no future appointments scheduled, and last appointment is greater than a year ago, please schedule patient for a follow-up appointment Last date the medication was ordered: 06-09-2022 Is this request for a controlled substance?No [...] Care Team (Late st Contact Info) Description 06/18/2023 10:40 AM EST Office Visit [facility] [address] [place] [address] Jason West MD [address] [place] [address] 09/16/2023 10:00 AM EST Office Visit Cardiology, [facility] [address] [place] [address] Amrita Navarro, PA-C [address] [place] [address] 03/08/2024 10:00 AM EDT Cardiac Studies [facility] [place] [address] [facility] [address] [facility] [place] [address] Health Maintenance Due Date Last Done Comments Hepatitis C Screening 1963 Hepatitis B (1 of 3 - Risk 3-dose series) 2004 DTaP,Tdap,and Td Vaccines (2 - Td or Tdap) 02/27/2018 02/28/2008, 05/02/1992 Diabetic Foot Exam 03/17/2022 03/17/2021, 0 12/27/2019, 12/07/2018, Additional history exists DIABETES-EYE EXAM 08/15/2022 08/15/2021, , 03/28/2018, Additional history exists COVID-19 Vaccine ( season) 2023 05/26/2022, 07/23/2021, 11/14/2020, Additional history exists GFR 09/08/2023 03/08/2023, 03/0 09/2022, 01/13/2022, Additional history exists HbA1c 09/08/2023 03/08/2023, 03/0 09/2022, 01/13/2022, Additional history exists Albumin/Creatinine Ratio 10/03/2023 023, 08/28/2021, 11/18/2020, Additional history exists CKD PHOS USE SMARTSET 14776 10/03/2023 03/0 09/2022, 03/17/2021, 08/18/2019, Additional history exists Depression Screening 12/03/2023 12/02/2022 CKD HGB USE SMARTSET 10989 03/08/202403/08, 10/02/2022, 07/29/2021, Additional history exists DIG LEVEL FOR MEDICATION MONITORING YEARLY 03/08/2024 03/08/2023, 10/02/2022, 07/29/2021 DXA Scan 03/21/2026 03/21/2019, 07/02, 07/12/2013, Additional history exists Pneumococcal Vaccine: 65+ Years Completed 10/24/2014, 12/28/2012, 12/16/2006, Additional history exists Zoster Vaccines Completed 12/07/2018, 06/28/2018 Influenza Vaccine (FLU shot) Completed , 05/22/2022, 04/30/2021, Additional history exists GARDASIL-HPV IMMUNIZATION SERIES Aged Out No longer eligible based on patient's age to complete this topic MENINGOCOCCAL (MENACTRA/MENVEO) Aged Out No longer eligible based on patient's age to complete this topic documented as of this encounter Medical Devices Not on filedocumented as of this encounter Visit Diagnoses Diagnosis Coronary artery disease involving [place] coronary artery of [place] heart without angina pectoris Dyslipidemia Other and unspecified hyperlipidemia documented in this encounter Care Teams Technology Integration Specialist Relationship Specialty Start Date End Date Jason West MD [address] [place] [address] PCP - General 02/06/03 documented as of this encounter
--- OUTSIDE RECORDS SUMMARY | 2023-10-22 02:58 | External Medical Summary | Summary of Care ---
Author Name Unknown Organization [facility] Address [address] [place] [address] Phone [phone] Care Team Providers Care Crude Tester Name Role Phone Jason West MD Primary Care Provider [phone]- [phone] Reason for Visit * Reason Onset Date Comments Referral 06/03/2023 Encounter Details Date Type Department Care Team (Late st Contact Info) Description 06/03/2023 Telephone [facility] [address] [place] [address] Jason West MD [address] [place] [address] Referral Allergies Active Allergy Reactions Criticality Noted Date Comments Hydroxyzine Hcl 05/12/2012 halluzinating Cetirizine & Related 02/11/1999 HALLUCINATIONS documented as of this encounter (statuses as of 06/04/2023) Medications Medication Sig Dispensed Refills Start Date End Date Status MULTIVITAMIN/CARTON WRAPPER AL FORMULA TABS OR 1 TABLET DAILY 0 0 12/02/2001 Active SYSTANE PRESERVATIVE FREE 0.4-0.3 % OP SOLNIndications:Ot her anterior corneal dystrophies 1 gtt OU q2h WA 1 box 6 12/03/2008 Active CALCIUM 5109-6133 MG-UNIT PO CHEW Take 1 Tablet by [...] 81 MG TBECIndications:Co ronary artery disease involving [place] coronary artery of [place] heart without angina pectoris Take 1 Tab by mouth daily. 30 Tab 11 07/17/2019 Active Loratadine 10 MG Oral Capsule Take 1 Capsule by mouth in the morning. 0 Active Magnesium 400 MG Capsule Take 1 by mouth daily. 30 Cap 11 01/11/2020 Active acetaminophen (TYLENOL) 325 MG Tablet 2 Tablets. 0 04/13/2020 Active Insulin Glargine Solostar 100 UNIT/ML Subcutaneous Solution Pen-injector (Lantus SoloStar)Indicatio ns:DM type 2 causing renal disease, 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) INJECT 20 UNITS SUBCUTANEOUSLY TWICE DAILY 30 mL 3 05/01/2022 Active Metoprolol Succinate ER 100 MG Oral Tablet Extended Release 24 Hour (toPROL XL)Indications:Chr onic systolic heart failure (HCC) TAKE 1 AND 1/2 TABLETS IN THE MORNING AND TAKE 1 TABLET IN THE EVENING 224 Tablet 3 06/08/2022 Active Digoxin 125 MCG Oral Tablet (Lanoxin)Indicatio ns:Chronic systolic heart failure (HCC),Coronary artery disease involving [place] coronary artery of [place] heart without angina pectoris Take 1 Tablet (125 mcg) by mouth at bedtime. 90 Tablet 3 06/15/2022 Active Oxybutynin Chloride 5 MG Oral Tablet (Ditropan) TAKE 1 TABLET 2 TIMES DAILY 180 Tablet 3 08/28/2022 Active Nitroglycerin 0.4 MG Sublingual Tablet Sublingual (Nitrostat)Indicat ions:Coronary artery disease involving [place] coronary artery of [place] heart without angina pectoris,Old [place] (myocardial infarction) Place 1 Tablet under the [...] Oral Tablet (Eliquis)Indicatio ns:PAF (paroxysmal atrial fibrillation) ([facility]) Take 1 Tablet by mouth in the morning and 1 Tablet before bedtime. 180 Tablet 3 01/01/2023 Active Torsemide 20 MG Oral Tablet (Demadex) Take 1 Tablet by mouth in the morning. 180 Tablet 3 03/08/2023 Active Midodrine HCl 5 MG Oral Tablet (Proamatine)Indica tions:Chronic systolic heart failure (HCC),Coronary artery disease involving [place] coronary artery of [place] heart without angina pectoris TAKE 1 TAB BY MOUTH SHORTLY BEFORE OR UPON RISING IN THE MORNING, AT MIDDAY, AND IN THE LATE AFTERNOON (NO LATER THAN 6PM) 270 Tablet 3 03/25/2023 Active Insulin Pen Needle 32G X 5 MMIndications:DM type 2 causing renal disease, not at goal ([facility]) use to inject lantus twice per day 200 Each 3 03/26/2023 Active OneTouch Verio In Vitro Strip (Glucose Blood)Indications: DM type 2 causing renal disease ([facility]) Check blood sugars one time daily. Dx E11.9 300 Strip 2 05/03/2023 Active COVID-19 mRNA Vaccine 12 years and above Memopal 30 MCG/0.3 ML IM SUSP Inject into a large muscle as directed 0.3 mL 0 05/26/2023 Active glipiZIDE 5 MG Oral Tablet (Glucotrol) Take 1 Tablet by mouth in the morning and 1 Tablet before bedtime. 30 minutes before a meal. 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 12/10/2020 Overview: Per CKD protocol Chronic systolic heart failure 11/21/2020 DM type 2 causing renal disease, 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, in full remission 12/07/2018 [place] (myocardial infarction) 03/31/2018 Heart failure, systolic, due to CAD 03/31/2018 Lymphedema of both lower extremities 03/31/2018 Dyslipidemia 02/18/2018 Coronary artery disease invo lving [place] coronary artery of [place] heart without angina pectoris 12/10/2017 PAF (paroxysmal atrial fibrillation) 12/10/2017 Type 2 diabetes mellitus wit h hemoglobin A1c goal of less than 8.0% 09/08/2013 Overview: ICD-10 update of inactive term DJD, CERVICAL SPINE 04/12/2002 GENERAL OSTEOARTHROSIS documented as of this encounter (statuses as of 06/04/2023) Resolved Problems Problem Noted Date Diagnosed Date [...] as of this encounter (statuses as of 06/04/2023) Immunizations Name Administration Dates Next Due COVID-19 mRNA, LNP-s, No Pre serve, 2-Dose Series (Memopal) 07/23/2021,11/14/2020,10/24/2020 Covid-19, Mrna, Lnp-s, Pf, B ivalent, [...] encounter Miscellaneous Notes * Telephone Encounter - Shirin Mendez OSA - 06/03/2023 4:00 PM EDT An order was requested for this patient. Name of Requesting Provider: patiemt Order Requested: rsv vaccine Diagnosis/Reason for Request: vaccine If order request is for Mammogram: Is the patient having any breast symptoms? N/A Is there a chance of ? N/A Has the patient had any breast problems in the past? NA What location AND department does the patient wish to have their order completed at? [facility] Fax Number, if applicable: n/a Call Back Number: [phone] If the caller is not a current patient, please advise the patient to call their current PCP to havethe order's prior to being seen in our office. The patient was informed that our providers would not order anything (medication, labs, etc.) prior to being seen. * Telephone Encounter - Farnaz Castillo LPN - 06/03/2023 3:04 PM EDT Left message for patient to return call, pt should check with insurance prior to receiving vaccine to check for coverage. A prescription will then need sent to a local pharmacy for patient to receivevaccine there, will not be covered if given in clinic. * Telephone Encounter - Earline Delgado OSA - 06/03/2023 2:46 PM EDT Pt wants RSV shot but pt first needs referral Pt would like for appt on the if it can be done that same day documented in this encounter Plan of Treatment Upcoming Encounters Date Type Department Care Team (Late st Contact Info) Description 06/29/2023 10:00 AM EST Office Visit [facility] [address] [place] [address] Jason West MD [address] [place] [address] 09/16/2023 10:00 AM EST Office Visit [facility], [facility] [place] [address] Aurelio Viera PA-C [address] [place] [address] 03/08/2024 10:00 AM EDT Cardiac Studies Cardiology, [facility] [address] [place] [address] [facility] [address] [facility] [place] [address] Health Maintenance Due Date Last Done Comments [...] Additional history exists CKD PHOS USE SMARTSET 81980 10/03/2023 03/0 09/2022, 03/17/2021, 08/18/2019, Additional history exists Depression Screening 12/03/2023 12/02/2022 CKD HGB USE SMARTSET 67371 03/08/202403/08, 10/02/2022, 07/29/2021, Additional history exists DIG [...] as of this encounter Visit Diagnoses Diagnosis Need for RSV immunization- Primary Need for prophylactic vaccination and inoculation against respiratory syncytial virus documented in this encounter Care Teams Crude Tester Relationship Specialty Start Date End Date Jason West MD [address] [place] [address] PCP - General 02/06/03 documented as of this encounter
--- OUTSIDE RECORDS SUMMARY | 2023-10-22 02:58 | External Medical Summary | Summary of Care ---
Author Name Unknown Organization [facility] Address [address] [place] [address] Phone [phone] Care Team Providers Care Concrete Bucket Hooker Name Role Phone Jason West MD Primary Care Provider [phone]- [phone] Encounter Details Date Type Department Care Team (Late st Contact Info) Description 07/07/2023 Result Scan Unspecified Department Tristian Vaca, DO [address] [place] [address] <No scans attached> Allergies Active Allergy Reactions Criticality Noted Date Comments Hydroxyzine Hcl 05/12/2012 halluzinating Cetirizine & Related 02/11/1999 HALLUCINATIONS documented as of this encounter (statuses as of 07/07/2023) Medications Medication Sig Dispensed Refills Start Date End Date Status MULTIVITAMIN/ITEM PROCESSOR AL FORMULA TABS OR 1 TABLET DAILY 0 0 12/02/2001 Active SYSTANE PRESERVATIVE FREE 0.4-0.3 % OP SOLNIndications:Ot her anterior corneal dystrophies 1 gtt OU q2h WA 1 box 6 12/03/2008 Active CALCIUM 1930-9811 MG-UNIT PO CHEW Take 1 Tablet by [...] 81 MG TBECIndications:Co ronary artery disease involving timbi-sha shoshone coronary artery of timbi-sha shoshone heart without angina pectoris Take 1 Tab [...] 2 causing renal disease, not at goal ([facility]) INJECT 20 UNITS SUBCUTANEOUSLY TWICE DAILY 30 mL 3 05/01/2022 Active Digoxin 125 MCG Oral Tablet (Lanoxin)Indicatio ns:Chronic systolic heart failure (HCC),Coronary artery disease involving timbi-sha shoshone coronary artery of timbi-sha shoshone heart without angina pectoris Take 1 Tablet (125 mcg) by mouth at bedtime. 90 Tablet 3 06/15/2022 Active Oxybutynin Chloride 5 MG Oral Tablet (Ditropan) TAKE 1 TABLET 2 TIMES DAILY 180 Tablet 3 08/28/2022 Active Nitroglycerin 0.4 MG Sublingual Tablet Sublingual (Nitrostat)Indicat ions:Coronary artery disease involving timbi-sha shoshone coronary artery of timbi-sha shoshone heart without angina pectoris,Old MS (myocardial infarction) Place 1 Tablet under the [...] systolic heart failure (HCC),Coronary artery disease involving timbi-sha shoshone coronary artery of timbi-sha shoshone heart without angina pectoris TAKE 1 TAB BY MOUTH SHORTLY BEFORE OR UPON RISING IN THE MORNING, AT MIDDAY, AND IN THE LATE AFTERNOON (NO LATER THAN 6PM) 270 Tablet 3 03/25/2023 Active Insulin Pen Needle 32G X 5 MMIndications:DM type 2 causing renal disease, not at goal ([facility]) use to inject lantus twice per day 200 Each 3 03/26/2023 Active OneTouch Verio In Vitro Strip (Glucose Blood)Indications: DM type 2 causing renal disease ([facility]) Check blood sugars one time daily. Dx E11.9 300 Strip 2 05/03/2023 Active glipiZIDE 5 MG Oral Tablet (Glucotrol) Take 1 Tablet by mouth in the morning and 1 Tablet before bedtime. 30 minutes before a meal. 180 Tablet 1 05/27/2023 Active Atorvastatin Calcium 40 MG Oral Tablet (Lipitor)Indicatio ns:Coronary artery disease involving timbi-sha shoshone coronary artery of timbi-sha shoshone heart without angina pectoris,Dyslipide mona TAKE 1 TABLET DAILY IN THE MORNING 90 Tablet 3 05/27/2023 Active Metoprolol Succinate ER 100 MG Oral Tablet Extended Release 24 Hour (toPROL XL)Indications:Chr onic systolic heart failure (HCC) TAKE 1 AND 1/2 TABLETS BY MOUTH IN THE MORNING AND 1 TABLET IN THE EVENING 230 Tablet 3 06/23/2023 Active documented as of this encounter (statuses as of 07/07/2023) Active Problems Problem Noted Date Diagnosed Date Chronic kidney disease, stage 3a 01/14/2021 Overview: Per CKD protocol Type 2 diabetes mellitus wit h stage 3a chronic kidney disease 12/10/2020 Overview: Per CKD protocol Chronic systolic heart failure 11/21/2020 DM type 2 causing renal disease, 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, in full remission 12/07/2018 Old MS (myocardial infarction) 03/31/2018 Heart failure, systolic, due to CAD 03/31/2018 Lymphedema of both lower extremities 03/31/2018 Dyslipidemia 02/18/2018 Coronary artery disease invo lving timbi-sha shoshone coronary artery of timbi-sha shoshone heart without angina pectoris 12/10/2017 PAF (paroxysmal atrial fibrillation) 12/10/2017 Type 2 diabetes mellitus wit h hemoglobin A1c goal of less than 8.0% 09/08/2013 Overview: ICD-10 update of inactive term DJD, CERVICAL SPINE 04/12/2002 GENERAL OSTEOARTHROSIS documented as of this encounter (statuses as of 07/07/2023) Resolved Problems Problem Noted Date Diagnosed Date [...] as of this encounter (statuses as of 07/07/2023) Immunizations Name Administration Dates Next Due COVID-19 mRNA, LNP-s, No Pre serve, 2-Dose Series ([employer]) 07/23/2021,11/14/2020,10/24/2020 COVID-19, MRNA-LNP, 23-24, P F, 30 MCG/0.3 mL, 12 YRS AND ABOVE, IM ([employer]) 05/26/2023 Covid-19, Mrna, Lnp-s, Pf, B ivalent, 30 Mcg, IM, 12 yrs and above ([employer]) 05/26/2022 Pneumococcal Conjugate Vacc, 13 Valent (Prevnar) [...] Description 09/16/2023 10:00 AM EST [facility] [address] [address] Aurelio Viera PA-C [address] [address] 12/31/2023 2:40 PM EDT Office Visit [facility] [address] [facility] [place] [phone] Jason West [facility] [address] [facility] [address] 03/08/2024 10:00 AM EDT Cardiac Studies Cardiology, [facility] [address] [place] [address] [facility] [address] [address] Health Maintenance Due Date Last Done Comments [...] Additional history exists CKD PHOS USE SMARTSET 66431 10/03/2023 03/0 09/2022, 03/17/2021, 08/18/2019, Additional history exists Depression Screening 12/03/2023 12/02/2022 CKD HGB USE SMARTSET 70164 03/08/202403/08, 10/02/2022, 07/29/2021, Additional history exists DIG [...] Date/Time Associated Diagnosis Comments CARDIOLOGY SCANNED RESULT 07/07/2023 documented in this encounter Results * CARDIOLOGY SCANNED RESULT (07/07/2023) 07/07/2023 Tristian Vaca DO OTHER documented in this encounter Care Teams Concrete Bucket Hooker Relationship Specialty Start Date End Date Jason West MD [address] [place] [address] PCP - General 02/06/03 documented as of this encounter
--- OUTSIDE RECORDS SUMMARY | 2023-10-22 02:58 | External Medical Summary | Summary of Care ---
Author Name Unknown Organization [facility] Address [address] [place] [address] Phone [phone] Care Team Providers Care Cobbler Mckay Name Role Phone Jason West MD Primary Care Provider [phone]- [phone] Reason for Referral * Evaluate & Treat - Unlimited Visits (Within 30 days (routine)) - Pending Review Specialty Diagnoses / Procedures Referred By Abdullahi t Referred To Contact Physical Therapy / Physical Medicine And Rehab Diagnoses Upper back pain Cervicalgia Chronic pain of both shoulders Jason West MD [address] [place] [address] Referral ID Status Reason Start Date Expiration Date Visits Requested Visits Authorized [id number] Pending Review Specialty Services Required [phone] Question Answer Referral Priority Within 30 days (routine) Where should this appointment be scheduled? External Reason for Visit * Reason Comments Follow Up 4 month return Encounter Details Date Type Department Care Team (Latest Contact Info) Description 06/29/2023 10:00 AM EST Office Visit [facility] [address] [place] [address] Jason West MD [address] [place] [address] Type 2 diabetes mellitus with hemoglobin A1c goal of less than 7.0% ([facility]; Primary osteoarthritis of left knee; Open wound of left thumb, initial encounter; Upper back pain; Cervicalgia; Chronic pain of both shoulders; Coronary artery disease involving alturas coronary artery of alturas heart without angina pectoris; PAF (paroxysmal atrial fibrillation) ([facility]) Allergies Active Allergy Reactions Criticality Noted Date Comments Hydroxyzine Hcl 05/12/2012 halluzinating Cetirizine & Related 02/11/1999 HALLUCINATIONS documented as of this encounter (statuses as of 06/29/2023) Medications Medication Sig Dispensed Refills Start Date End Date Status MULTIVITAMIN/CAST IRON DRAIN PIPE LAYER AL FORMULA TABS OR 1 TABLET DAILY 0 0 12/02/2001 Active SYSTANE PRESERVATIVE FREE 0.4-0.3 % OP SOLNIndications:Ot her anterior corneal dystrophies 1 gtt OU q2h WA 1 box 6 12/03/2008 Active CALCIUM 3812-1984 MG-UNIT PO CHEW Take 1 Tablet by mouth in the morning. 0 Active Cinnamon 500 MG Capsule Take 2 Capsules by mouth in the morning. 0 Active ONETOUCH ULTRASOFT LANCETS MISCIndications:DM type 2 causing renal disease ([facility]) Use as directed daily. Use up to four times a day as directed. Dx E11.9 3 Box Dosing Unit 3 09/13/2018 Active aspirin enteric coated 81 MG TBECIndications:Co ronary artery disease involving alturas coronary artery of alturas heart without angina pectoris Take 1 Tab [...] disease, not at goal ([facility]) INJECT 20 UNITS SUBCUTANEOUSLY TWICE DAILY 30 mL 3 05/01/2022 Active Digoxin 125 MCG Oral Tablet (Lanoxin)Indicatio ns:Chronic systolic heart failure (HCC),Coronary artery disease involving alturas coronary artery of alturas heart without angina pectoris Take 1 Tablet (125 mcg) by mouth at bedtime. 90 Tablet 3 06/15/2022 Active Oxybutynin Chloride 5 MG Oral Tablet (Ditropan) TAKE 1 TABLET 2 TIMES DAILY 180 Tablet 3 08/28/2022 Active Nitroglycerin 0.4 MG Sublingual Tablet Sublingual (Nitrostat)Indicat ions:Coronary artery disease involving alturas coronary artery of alturas heart without angina pectoris,Old NM (myocardial infarction) Place 1 Tablet under the [...] Oral Tablet (Eliquis)Indicatio ns:PAF (paroxysmal atrial fibrillation) ([facility]) Take 1 Tablet by mouth in the morning and 1 Tablet before bedtime. 180 Tablet 3 01/01/2023 Active Torsemide 20 MG Oral Tablet (Demadex) Take 1 Tablet by mouth in the morning. 180 Tablet 3 03/08/2023 Active Midodrine HCl 5 MG Oral Tablet (Proamatine)Indica tions:Chronic systolic heart failure (HCC),Coronary artery disease involving alturas coronary artery of alturas heart without angina pectoris TAKE 1 TAB BY MOUTH SHORTLY BEFORE OR UPON RISING IN THE MORNING, AT MIDDAY, AND IN THE LATE AFTERNOON (NO LATER THAN 6PM) 270 Tablet 3 03/25/2023 Active Insulin Pen Needle 32G X 5 MMIndications:DM type 2 causing renal disease, not at goal ([facility]) use to inject lantus twice per day 200 Each 3 03/26/2023 Active OneTouch Verio In Vitro Strip (Glucose Blood)Indications: DM type 2 causing renal disease ([facility]) Check blood sugars one time daily. Dx E11.9 300 Strip 2 05/03/2023 Active glipiZIDE 5 MG Oral Tablet (Glucotrol) Take 1 Tablet by mouth in the morning and 1 Tablet before bedtime. 30 minutes before a meal. 180 Tablet 1 05/27/2023 Active Atorvastatin Calcium 40 MG Oral Tablet (Lipitor)Indicatio ns:Coronary artery disease involving alturas coronary artery of alturas heart without angina pectoris,Dyslipide mona TAKE 1 [...] as of this encounter (statuses as of 06/29/2023) Active Problems Problem Noted Date Diagnosed Date Chronic kidney disease, stage 3a 01/14/2021 Overview: Per CKD protocol Type 2 diabetes mellitus wit h stage 3a chronic kidney disease 12/10/2020 Overview: Per CKD protocol Chronic systolic heart failure 11/21/2020 DM type 2 causing renal disease, 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, in full remission 12/07/2018 Old NM (myocardial infarction) 03/31/2018 Heart failure, systolic, due to CAD 03/31/2018 Lymphedema of both lower extremities 03/31/2018 Dyslipidemia 02/18/2018 Coronary artery disease invo lving alturas coronary artery of alturas heart without angina pectoris 12/10/2017 PAF (paroxysmal atrial fibrillation) 12/10/2017 Type 2 diabetes mellitus wit h hemoglobin A1c goal of less than 8.0% 09/08/2013 Overview: ICD-10 update of inactive term DJD, CERVICAL SPINE 04/12/2002 GENERAL OSTEOARTHROSIS documented as of this encounter (statuses as of 06/29/2023) Resolved Problems Problem Noted Date Diagnosed Date [...] tachycardia) 12/10/2017 04/14/2019 Heart failure, systolic 11/17/2017 07/ Body mass index (BMI) of 45. 0 [...] as of this encounter (statuses as of 06/29/2023) Immunizations Name Administration Dates Next Due COVID-19 mRNA, LNP-s, No Pre serve, 2-Dose Series ([employer]) 07/23/2021,11/14/2020,10/24/2020 COVID-19, MRNA-LNP, 23-24, P F, 30 MCG/0.3 mL, 12 YRS AND ABOVE, IM ([employer] [facility] [facility]) 05/26/2023 Covid-19, Mrna, Lnp-s, Pf, B ivalent, [...] on file documented as of this encounter Last Filed Vital Signs Vital Sign Reading Time Taken Comments Blood Pressure 124/80 06/29/2023 10:05 AM EST Pulse 79 06/29/2023 10:05 AM EST Temperature 36 C (96.8 F) 06/29/2023 10: 05 AM EST Respiratory Rate 18 06/29/2023 10:0 5 AM EST Oxygen Saturation 97% 06/29/2023 10: 05 AM EST Inhaled Oxygen Concentration - - Weight 110.1 kg (242 lb 12.8 oz) 2022 10:05 AM EST Height 162.6 cm (5' 4") 06/29/2023 10:0 5 AM EST Body Mass Index 41.68 06/29/2023 10:05 AM EST documented in this encounter Progress Notes * Rosibel Gonzalez CCMA - 06/29/2023 11:00 AM EST Pre-Administration Time Out Procedure Performed: Yes Patient Identified (Ask Name/Date of ): Yes Does the patient have a fever greater than 101 degrees today? No Patient allergic to latex? No Has the patient ever fainted after receiving an injection? No VFC Stock: No Immunization(s) verified: Yes, Immunization Name: Tdap (Boostrix), VIS Sheet(s) given: Yes Verified Side and Site: Yes Verified Shot(s) with Parent(s)/Patient: Yes Did a wound care on the L thumb * Jason West MD - 06/29/2023 10:21 AM EST Subjective: Ciara Baig is a 77 year old female here today for Chief Complaint Patient presents with Follow Up 4 month return Patient presents for routine return. Reviewed last labs from March. Hemoglobin A1c was 7.5. Reviewed most recent specialty notes. Patient had reduction in torsemide dose by Cardiology and does appear to be doing well on the reduced dose. Weight is stable. Swelling is stable. She is continuing to have left knee pain. Is not interested in surgical treatments. Is interested in getting the brace that was recommended by orthopedics over a year ago. New DME was printed and faxed to her medical supply store. She does report that she is noticing a change in her posture and that she is stooped over more regularly. She tries to force herself to have better posture and sit up straight but then will develop pain in the upper back, shoulders, neck which will lead to a headache. She can get relief of the headache by laying down. She is noted some increased difficulties using her arms above the level of the shoulders. She cut her left thumb with a kitchen knife and it will continue to bleed - does not seem to be healing. It is noted that she is due for TDAP. Past Medical History: Diagnosis Date DM type 2, goal A1C below 8.0 09/08/2013 Fam hx-cardiovas dis NEC Family history of diabetes mellitus Generalized osteoarthritis GERD (gastroesophageal reflux disease) Heart failure, systolic, due to CAD ([facility]) 03/31/2018 HTN, goal below 140/90 Menopause Mixed dyslipidemia Morbid Obesity, BMI not known Myalgia and myositis PAF (paroxysmal atrial fibrillation) ([facility]) 12/10/2017 Polymyalgia rheumatica ([facility]) Past Surgical History: Procedure Laterality Date ABDOMEN SURGERY PROCEDURE NEC OVARIAN CYST AND APPENDECTOMY ARTHROPLASTY KNEE TOTAL 05/11 Right, [place]. CATHETERIZE LEFT HEART THRU SKIN 09/25/04 <30% LAD, hyperdynamic LV function FRACTURE NOS ANKLES, L AND R REMOVAL OF TONSILS, AGE 12+ Tonsils Removal,12+ Y/O REMOVE GALLBLADDER Cholecystectomy Review of patient's allergies indicates: Allergen Reactions Atarax [Hydroxyzine Hcl] halluzinating Cetirizine & Related HALLUCINATIONS Current Outpatient Medications Medication Sig Dispense Refill ONETOUCH ULTRASOFT LANCETS MISC Use as directed daily. Use up to four times a day as directed. Dx E11.9 3 Box Dosing Unit 3 Oxybutynin Chloride 5 MG Oral Tablet (Ditropan) TAKE 1 TABLET 2 TIMES DAILY 180 Tablet 3 OneTouch Verio In Vitro Strip (Glucose Blood) Check blood sugars one time daily. Dx E11.9 300 Strip2 COVID-19 mRNA Vaccine 12 years and above [employer]ise 30 MCG/0.3 ML IM SUSP Inject into a large muscle asdirected 0.3 mL 0 MULTIVITAMIN/MINERAL FORMULA TABS OR 1 TABLET DAILY 0 0 SYSTANE PRESERVATIVE FREE 0.4-0.3 % OP SOLN 1 gtt OU q2h WA 1 box 6 CALCIUM 2779-6776 MG-UNIT PO CHEW Take 1 Tablet by mouth in the morning. Cinnamon 500 MG Capsule Take 2 Capsules by mouth in the morning. aspirin enteric coated 81 MG TBEC Take 1 Tab by mouth daily. 30 Tab 11 Loratadine 10 MG Oral Capsule Take 1 Capsule by mouth in the morning. Magnesium 400 MG Capsule Take 1 by mouth daily. 30 Cap 11 acetaminophen (TYLENOL) 325 MG Tablet 2 Tablets. Insulin Glargine Solostar 100 UNIT/ML Subcutaneous Solution Pen-injector (Lantus SoloStar) INJECT 20 UNITS SUBCUTANEOUSLY TWICE DAILY 30 mL 3 Digoxin 125 MCG Oral Tablet (Lanoxin) Take 1 Tablet (125 mcg) by mouth at bedtime. 90 Tablet 3 Nitroglycerin 0.4 MG Sublingual Tablet Sublingual (Nitrostat) Place 1 Tablet under the tongue every5 minutes as needed for Pain, Chest. (Patient not taking: Reported on 03/08/2023) 25 Tablet 5 Entresto 24-26 MG Oral Tablet (sacubitril-valsartan 24-26 mg per tab) Take 1 Tablet by mouth in themorning and 1 Tablet before bedtime. 180 Tablet 3 Apixaban 5 MG Oral Tablet (Eliquis) Take 1 Tablet by mouth in the morning and 1 Tablet before bedtime. 180 Tablet 3 Torsemide 20 MG Oral Tablet (Demadex) Take 1 Tablet by mouth in the morning. 180 Tablet 3 Midodrine HCl 5 MG Oral Tablet (Proamatine) TAKE 1 TAB BY MOUTH SHORTLY BEFORE OR UPON RISING IN THE MORNING, AT MIDDAY, AND IN THE LATE AFTERNOON (NO LATER THAN 6PM) 270 Tablet 3 Insulin Pen Needle 32G X 5 MM use to inject lantus twice per day 200 Each 3 Fluzone High-Dose Quadrivalent 0.7 ML Suspension Prefilled Syringe (Influenza Vac High-Dose Quad (65 years and older)) Inject 0.7 ml intramuscularly as directed 0.7 mL 0 glipiZIDE 5 MG Oral Tablet (Glucotrol) Take 1 Tablet by mouth in the morning and 1 Tablet before bedtime. 30 minutes before a meal. 180 Tablet 1 Atorvastatin Calcium 40 MG Oral Tablet (Lipitor) TAKE 1 TABLET DAILY IN THE MORNING 90 Tablet 3 Abrysvo 120 MCG/0.5ML Intramuscular Solution Reconstituted (RSV Pre-Fusion F A&B Vac Rcmb) inject as directed 1 Each 0 Metoprolol Succinate ER 100 MG Oral Tablet Extended Release 24 Hour (toPROL XL) TAKE 1 AND 1/2 TABLETS BY MOUTH IN THE MORNING AND 1 TABLET IN THE EVENING 230 Tablet 3 No current facility-administered medications for this visit. Objective: BP 124/80 (BP Site: Left Arm, BP Position: Sitting, BP Cuff Size: Regular) | Pulse 79 | Temp 36 C (96.8 F) (Temporal Artery) | Resp 18 | Ht 1.626 m (5' 4") | Wt 110.1 kg (242 lb 12.8 oz) | SpO2 97% | BMI 41.68 kg/m | BSA 2.23 m GEN: NAD HEENT: Benign NECK: Supple with no LAD, TM, JVD CHEST: CTA B CV: RRR ABD: Soft, NT/ND, No HSM, NABS EXT: No c,c,e. Left thumb with laceration to tip - nothing to suture. Assessment and Plan: Type 2 diabetes mellitus with hemoglobin A1c goal of less than 7.0% ([facility]) (Primary) - HEMOGLOBIN A1C; Future; Expected date: 06/29/2023 -continue current treatments Primary osteoarthritis of left knee - DURABLE MEDICAL EQUIPMENT - for brace [facility] Open wound of left thumb, initial encounter - TDAP (AGE 10 AND OLDER)(BOOSTRIX), dressing applied. Call for worsening symptoms. Upper back pain Cervicalgia Chronic pain of both shoulders - PHYSICAL THERAPY REFERRAL OP - trying to arrange with [facility] in the home. Coronary artery disease involving alturas coronary artery of alturas heart without angina pectoris PAF (paroxysmal atrial fibrillation) ([facility]) -continue same meds and cardiology follow up. Follow Up: Return in about 4 months (around 10/28/2023) for 4 months or next available.. | For: 4 months or next available. | Check-out note: Trying to set up PT in the home. First, please try [facility]. If they cannot work with patient, please send back to me and will see if we can get her qualified for home health to get some therapy. 42 min with pt, chart review, documentation Jason West MD documented in this encounter Nursing Notes * Rosibel Gonzalez CCMA - 06/29/2023 10:05 AM EST Ciara Baig is a 77 year old female who presents today for Chief Complaint Patient presents with Follow Up 4 month return documented in this encounter Plan of Treatment Upcoming Encounters Date Type Department Care Team (Late st Contact Info) Description 09/16/2023 10:00 AM EST Office Visit Cardiology[facility] [address] [facility] [address] [address] Aurelio Viera PA-C [address] [facility] [address] 12/31/2023 2:40 PM EDT Office Visit [place] [address] [place] [address] Jason West MD [address] [place] [address] 03/08/2024 10:00 AM EDT Cardiac Studies Cardiology, [facility] [address] [facility] [place] [address] [place] [address] [facility] [place] [address] Scheduled Orders Name Type Priority Associated Diagnoses Orde r Schedule HEMOGLOBIN A1C Lab Routine Type 2 diabetes mellitus with hemoglobin A1c goal of less than 7.0% (HCC) Expected: 06/29/2023 (Approximate), Expires: 06/28/2024 Scheduled Referrals Name Type Priority Associated Diagnoses Orde r Schedule PHYSICAL THERAPY REFERRAL OP Referral Within 30 days (routine) Upper back pain Cervicalgia Chronic pain of both shoulders Ordered: 06/29/2023 Health Maintenance Due Date Last Done Comments [...] Additional history exists CKD PHOS USE SMARTSET 98843 10/03/2023 03/0 09/2022, 03/17/2021, 08/18/2019, Additional history exists Depression Screening 12/03/2023 12/02/2022 CKD HGB USE SMARTSET 47235 03/08/202403/08, 10/02/2022, 07/29/2021, Additional history exists DIG [...] as of this encounter Visit Diagnoses Diagnosis Type 2 diabetes mellitus with hemoglobin A1c goal of less than 7.0% ([facility] Primary Primary osteoarthritis of left knee Primary localized osteoarthrosis, lower leg Open wound of left thumb, initial encounter Upper back pain Cervicalgia Chronic pain of both shoulders Pain in joint, shoulder region Coronary artery disease involving alturas coronary artery of alturas heart without angina pectoris PAF (paroxysmal atrial fibrillation) (HCC) Atrial fibrillation documented in this encounter Care Teams Cobbler Mckay Relationship Specialty Start Date End Date Jason West MD [address] [place] [address] PCP - General 02/06/03 documented as of this encounter
--- OUTSIDE RECORDS SUMMARY | 2023-10-22 02:59 | External Medical Summary | Summary of Care ---
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) Allergies Active Allergy Reactions Severity Noted Date Comments Hydroxyzine Hcl 05/12/2012 halluzinating Cetirizine & Related 02/11/1999 HALLUCINATIONS documented as of this encounter (statuses as of 05/03/2023) Medications Medication Sig Dispensed Refills Start Date End Date Status MULTIVITAMIN/MINE RAL FORMULA TABS OR 1 TABLET DAILY 0 0 2 Active SYSTANE PRESERVATIVE FREE 0.4-0.3 % OP SOLNIndications:O ther anterior corneal dystrophies 1 gtt OU q2h WA 1 box 6 9 Active CALCIUM 8105-0500 MG-UNIT PO CHEW Take 1 Tablet by [...] 81 MG TBECIndications:C oronary artery disease involving [place] coronary artery of [place] heart without angina pectoris Take 1 Tab [...] THE EVENING 224 Tablet 3 2 Active Atorvastatin Calcium 40 MG Oral Tablet (Lipitor)Indicati ons:Coronary artery disease involving [place] coronary artery of [place] heart without angina pectoris,Dyslipid emia Take 1 Tablet (40 mg) by mouth in the morning. 90 Tablet 3 2 Active Digoxin 125 MCG Oral Tablet (Lanoxin)Indicati ons:Chronic systolic heart failure (HCC),Coronary artery disease involving [place] coronary artery of [place] heart without angina pectoris Take 1 Tablet (125 mcg) by mouth at bedtime. 90 Tablet 3 2 Active Oxybutynin Chloride 5 MG Oral Tablet (Ditropan) TAKE 1 TABLET 2 TIMES DAILY 180 Tablet 3 3 Active Nitroglycerin 0.4 MG Sublingual Tablet Sublingual (Nitrostat)Indica tions:Coronary artery disease involving [place] coronary artery of [place] heart without angina pectoris,Old [place] (myocardial infarction) Place 1 Tablet under the tongue every 5 minutes as needed for Pain, Chest. 25 Tablet 5 3 Active Additional Information Patient not taking.Reported on 03/08/2023 Entresto 24-26 MG Oral Tablet (sacubitril-valsa rtan 24-26 mg per tab)Indications:C hronic systolic heart failure (HCC) Take 1 Tablet by mouth in the morning and 1 Tablet before bedtime. 180 Tablet 3 3 Active glipiZIDE 5 MG Oral Tablet (Glucotrol) Take 1 Tablet by mouth in the morning and 1 Tablet before bedtime. 30 minutes before a meal. 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, in full remission 12/07/2018 Old [place] (myocardial infarction) 8 Heart failure, systolic, due to CAD 03/04 Lymphedema of both lower extremities Dyslipidemia 02/18/2018 Coronary artery disease invo lving [place] coronary artery of [place] heart without angina pectoris 12/10/2017 PAF (paroxysmal atrial fibrillation) 06/2018 Type 2 diabetes mellitus with hemoglobin A1c goal of less than 8.0% 09/08/2013 Overview: ICD-10 update of inactive term DJD, CERVICAL SPINE 04/12/2002 GENERAL OSTEOARTHROSIS documented as of this encounter (statuses as of 05/03/2023) Resolved Problems Problem Noted Date Resolved Date Diabetes mellitus with stage 3 chronic kidney di sease 05/15/2019 12/12/2020 Overview: Per CKD protocol Gastroesophageal reflux disease 12/30/2018 08/18/2019 CHF (congestive heart failure) 12/07/2018 0 12/30/2018 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 04/14/2019 Systolic heart failure secondary to hypertension 12/07/2018 12/30/2018 Morbid obesity with BMI of 45.0-49.9, adult /06/01/2022 PSVT (paroxysmal supraventricular tachycardia) 0 12/10/2017 04/14/2019 Heart failure, systolic 11/17/2017 02/19/20 18 Body mass index (BMI) of 45.0 to 49.9 in adult 1 03/31/2018 Overview: Per Obesity protocol #1 Polymyalgia rheumatica 07/03/2013 8 Cellulitis of foot 11/30/2011 11/30/2011 Edema 11/30/2011 11/30/2011 Proteinuria 11/30/2011 07/03/2013 DM type 2 causing renal disease, not at goal 04/14/2019 Edema 11/30/2011 07/03/2013 Cellulitis of foot 11/30/2011 07/03/2013 Kidney disease, chronic, stage III (GFR 30-59 ml /min) 11/30/2011 10/03/2013 Overview: Per CKD protocol #1 Adult body mass index 50.0-59.9 06/19/2011 05/06/2017 Overview: Per Obesity protocol #1 Obesity, morbid (more than 1 00 lbs over ideal weight or BMI > 40) 10/29/2009 06/19/2011 Overview: Per Obesity Taxonomy ICD-10 update of inactive term HTN, goal below 130/80 08/28/2009 4 Overview: Per HTN Taxonomy. Type 2 diabetes mellitus wit h hemoglobin A1c goal of less than 7.0% 05/30/2009 11/30/2011 Overview: Per Diabetes Taxonomy. ICD-10 update of inactive term Other anterior corneal dystrophies 10/01/2008 03/31/2018 ADVANCE DIRECTIVE INFORMATION 05/12/2007 Overview: Yes, Copy scanned at patient level in the electronic medical record.(Go to Action, Patient File to view) Patient aware they must notify their healthcare provider of changes. Other chest pain 09/23/2004 08/10/2010 Type 2 diabetes mellitus wit h hemoglobin A1c goal of less than 7.0% 09/05/2004 05/30/2009 Overview: Per Diabetes Taxonomy. ICD-10 update of inactive term Polyneuropathy in other diseases classified else where 04/24/2002 02/02/2017 NUMBNESS, LEFT HAND, LEFT TOES 04/12/2002 0 08/10/2010 SEBORRHEIC KERATOSIS 04/12/2002 07/03/2013 NEVI 04/12/2002 07/03/2013 HEMANGIOMA SKIN 04/12/2002 07/03/2013 Edema 04/12/2002 08/10/2010 ADJ DISORDER W/DEPRES MOOD 05/17/200003/31 HYPERTENSION NOS 11/26/1999 06/07/2009 Overview: Per HTN Taxonomy Respiratory abnormality 11/26/1999 12/02/20 13 Overview: ICD-10 update of inactive term Allergic rhinitis 11/26/1999 03/31/2018 Myalgia and myositis 10/09/1999 07/03/2013 ELECTROLYT-FLUID DIS NEC 02/11/1999 011 HTN, goal below 140/90 0 Overview: Per HTN Taxonomy. OBESITY, UNSPECIFIED 10/29/2009 Overview: Per Obesity Taxonomy Menopause 07/03/2013 Family history of other cardiovascular diseases 08/10/2010 Overview: ICD-10 update of inactive term FAM HX-DIABETES MELLITUS 011 documented as of this encounter (statuses as of 05/03/2023) Immunizations Name Administration Dates Next Due COVID-19 mRNA, LNP-s, No Pre serve, 2-Dose Series (Elo7) 07/23/2021,11/14/2020,10/24/2020 Covid-19, Mrna, Lnp-s, Pf, B ivalent, 30 Mcg, IM, 12 yrs and above (Elo7) 05/26/2022 Pneumococcal Conjugate Vacc, 13 Valent (Prevnar) 10/24/2014 Pneumococcal Polysaccharide PPV23 (Pneumovax) 12/28/2012,12/16/2006 SEASONAL INFLUENZA, PF, 6 M & Above, IM , (FLULAVAL or FLUZONE) 04/19/2020,04/04/2019 Seasonal Influenza, Quadriva lent Hd, 65+ Yrs [...] drink = 0.6 oz pur e alcohol) Food Insecurity Answer Date Recorded Within the past 12 months, y ou worried that your food would run out before you got money to buy more. Never true 12/02/2022 Within the past 12 months, t he food you bought just didn't last and you didn't have money to get more. Never true 12/02/2022 Sex Assigned at Date Recorded Female 12/07/2018 9:04 AM E DT Job Start Date Occupation Industry Not on file Not on file Not on file documented as of this encounter Miscellaneous Notes * Telephone Encounter - Yelena Amador RPh - 05/03/2023 4:22 PM EDTSigned Prescriptions: Disp Refills OneTouch Verio In Vitro Strip (Glucose Blo*300 St*2 Sig: Check blood sugars one time daily. Dx E11.9Authorizing Provider: JAN ARITA User: YELENA AMADOR documented in this encounter Plan of Treatment Upcoming Encounters Date Type Specialty Care Team Description 06/18/2023 Office Visit Family Medicine Jan Arita MD [address] [facility] [place] [address] 09/16/2023 Office Visit Cardiology Aurelio Viera PA-C [address] [place] [address] 03/08/2024 Cardiac Studies Cardiology [facility] [address] [place] [address] Health Maintenance Due Date Last Done Comments Hepatitis C Screening 1963 DTaP,Tdap,and Td Vaccines (2 - Td or Tdap) 02/27/2018 02/28/2008, 05/02/1992 Diabetic Foot Exam 03/17/2022 03/17/2021, 0 12/27/2019, 12/07/2018, Additional history exists DIABETES-EYE EXAM 08/15/2022 08/15/2021, , 03/28/2018, Additional history exists Influenza Vaccine (FLU shot) (#1) 2023 05/22/2022, 04/30/2021, 04/19/2020, Additional history exists GFR 09/08/2023 03/08/2023, 03/0 09/2022, 01/13/2022, Additional history exists HbA1c 09/08/2023 03/08/2023, 03/0 09/2022, 01/13/2022, Additional history exists Albumin/Creatinine Ratio 10/03/202310/02/2 023, 08/28/2021, 11/18/2020, Additional history exists CKD PHOS USE SMARTSET 67721 10/03/2023 03/0 09/2022, 03/17/2021, 08/18/2019, Additional history exists Depression Screening 12/03/2023 12/02/2022 CKD HGB USE SMARTSET 14702 03/08/202403/08, 10/02/2022, 07/29/2021, Additional history exists DIG LEVEL FOR MEDICATION MONITORING YEARLY 03/08/2024 03/08/2023, 10/02/2022, 07/29/2021 DXA Scan 03/21/2026 03/21/2019, 07/02, 07/12/2013, Additional history exists Pneumococcal Vaccine: 65+ Years Completed 10/24/2014, 12/28/2012, 12/16/2006, Additional history exists Zoster Vaccines Completed 12/07/2018, 06/28/2018 COVID-19 Vaccine Completed 05/26/2022, , 11/14/2020, Additional history exists GARDASIL-HPV IMMUNIZATION SERIES Aged [...] Diagnoses Diagnosis 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
--- OUTSIDE RECORDS SUMMARY | 2023-10-22 02:59 | External Medical Summary | Summary of Care ---
Author Name Unknown Organization [facility] Address [address] [place] [address] Phone [phone] Care Team Providers Care Regulatory Affairs Intern Name Role Phone Jan Arita MD Primary Care Provider [phone]- [phone] Reason for Visit * Reason Onset Date Comments Medication Refill 05/26/2023 Encounter Details Date Type Department Care Team (Late st Contact Info) Description 05/26/2023 Refill Family Practice [facility] [address] [place] [address] Jan Arita MD [address] [place] [address] Allergies Active Allergy Reactions Criticality [...] WA 1 box 6 9 Active CALCIUM 7797-3813 MG-UNIT PO CHEW Take 1 Tablet by [...] 81 MG TBECIndications:C oronary artery disease involving [place] coronary artery of [place] heart without angina pectoris Take 1 Tab [...] Oral Tablet (Lipitor)Indicati ons:Coronary artery disease involving [place] coronary artery of [place] heart without angina pectoris,Dyslipid emia Take 1 Tablet (40 mg) by mouth in the morning. 90 Tablet 3 2 Active Digoxin 125 MCG Oral Tablet (Lanoxin)Indicati ons:Chronic systolic heart failure (HCC),Coronary artery disease involving [place] coronary artery of [place] heart without angina pectoris Take 1 Tablet (125 mcg) by mouth at bedtime. 90 Tablet 3 2 Active Oxybutynin Chloride 5 MG Oral Tablet (Ditropan) TAKE 1 TABLET 2 TIMES DAILY 180 Tablet 3 3 Active Nitroglycerin 0.4 MG Sublingual Tablet Sublingual (Nitrostat)Indica tions:Coronary artery disease involving [place] coronary artery of [place] heart without angina pectoris,Old [place] (myocardial infarction) Place 1 Tablet under the [...] systolic heart failure (HCC),Coronary artery disease involving [place] coronary artery of [place] heart without angina pectoris TAKE 1 TAB BY MOUTH SHORTLY BEFORE OR UPON RISING IN THE MORNING, AT MIDDAY, AND IN THE LATE AFTERNOON (NO LATER THAN 6PM) 270 Tablet 3 3 Active Insulin Pen Needle 32G X 5 MMIndications:DM type 2 causing renal disease, not at goal ([facility]) use to inject lantus twice per day 200 Each 3 3 Active OneTouch Verio In Vitro Strip (Glucose Blood)Indications :DM type 2 causing renal disease ([facility]) Check blood sugars one time daily. Dx E11.9 300 Strip 2 3 Active COVID-19 mRNA Vaccine 12 years and above Oxyntix 30 MCG/0.3 ML IM SUSP Inject into a large muscle as directed 0.3 mL 0 3 Active glipiZIDE 5 MG Oral Tablet (Glucotrol) Take 1 Tablet by mouth in the morning and 1 Tablet before bedtime. 30 minutes before a meal. 180 Tablet 1 3 Active glipiZIDE 5 MG Oral Tablet (Glucotrol) Take 1 Tablet by mouth in the morning and 1 Tablet before bedtime. 30 minutes before a meal. 180 Tablet 1 3 05/26/20 23 Discontinu ed(Refill) documented as of this [...] single episode, in full remission 12/07/2018 Old [place] (myocardial infarction) 03/31/2018 Heart failure, systolic, due to CAD 03/31/2018 Lymphedema of both lower extremities 03/31/2018 Dyslipidemia 02/18/2018 Coronary artery disease invo lving [place] coronary artery of [place] heart without angina pectoris 12/10/2017 PAF (paroxysmal [...] mRNA, LNP-s, No Pre serve, 2-Dose Series (Oxyntix) 07/23/2021,11/14/2020,10/24/2020 Covid-19, Mrna, Lnp-s, Pf, B ivalent, [...] encounter Miscellaneous Notes * Telephone Encounter - Cesar Loving [facility] - 05/27/2023 12:50 PM EDTSigned Prescriptions: Disp Refills glipiZIDE 5 MG Oral Tablet (Glucotrol) 180 Ta*1 Sig: Take 1 Tablet by mouth in the morning and 1 Tablet before bedtime. 30 minutes before a meal.Authorizing Provider: JAN ARITA User: CESAR LOVING documented in this encounter Plan of Treatment Upcoming Encounters Date Type Department Care Team (Late st Contact Info) Description 06/18/2023 10:40 AM EST Office Visit [facility] [address] [facility], [place] [address] Jan Arita MD [address] [place] [facility] [place] [address] 09/16/2023 10:00 AM EST Office Visit Cardiology, [facility] [address] [facility] [place] [address] Aurelio Viera PA-C [address] [place] [address] 03/08/2024 10:00 AM EDT Cardiac Studies Cardiology, [facility] [address] [place] [address] [facility] [address] [place] [address] Health Maintenance Due Date Last Done Comments [...] 01/13/2022, Additional history exists HbA1c 09/08/2023 03/08/2023, 030 09/2022, 01/13/2022, Additional history exists Albumin/Creatinine Ratio 10/03/2023 023, 08/28/2021, 11/18/2020, Additional history exists CKD PHOS USE SMARTSET 08896 10/03/2023 03/0 09/2022, 03/17/2021, 08/18/2019, Additional history exists Depression Screening 12/03/2023 12/02/2022 CKD HGB USE SMARTSET 35188 03/08/202403/08, 10/02/2022, 07/29/2021, Additional history exists DIG [...] filedocumented as of this encounter Care Teams Regulatory Affairs Intern Relationship Specialty Start Date End Date Jan Arita MD [address] [place] [address] PCP - General 02/06/03 documented as of this encounter
[2023-10-22 06:50] LABS: Hematocrit (blood only) 30.6 % (37.0-47.0); Hemoglobin 9.3 g/dl (12.0-16.0); Mean Corpuscular Hemoglobin 26.4 pg (25.0-34.0); Mean Corpuscular Hgb Conc 30.4 g/dL (32.0-36.0); Mean Corpuscular Volume 86.9 fL (80.0-100.0); Mean Platelet Volume 9.9 fL (9.4-12.4); Platelet Count 255 K/uL (130-400); RDW Coefficient of Variation 14.4 % (11.5-14.5); RDW Standard Deviation 45.2 fL (36.4-46.3); Red Blood Count 3.52 M/uL (4.20-5.40); White Blood Count 12.32 K/ul (4.8-10.8)
[2023-10-22 07:03] LABS: Albumin Globulin Ratio 1.1 (0.9-2); Albumin Level 3.2 gm/dl (3.4-5.0); BUN Creatinine Ratio 39.2 (10-20); Bilirubin,Total 0.5 mg/dl (0.2-1.0); Calcium 8.8 mg/dl (8.6-10.3); Chol HDL Ratio 3.3 (0-5); Creatinine Clr Calc Pharmacy 69.8 ml/min; Est GFR (African American) 89.3 ml/min; Est GFR (Non-African American) 77.1 ml/min; Globulin 2.9 gm/dl (2.5-4.0); Potassium 4.3 mmol/L (3.5-5.1); Total Protein 6.1 gm/dl (6.0-8.3)
[2023-10-22 07:44] LABS: Estimated Average Glucose 163 mg/dl; Hemoglobin A1C 7.3 % (4.5-5.6)
[2023-10-22] MEDS: METOPROLOL SUCC 50MG EXT REL TAB PO SCH (08:30)
[2023-10-22] MEDS: TORSEMIDE 20 MG TAB PO SCH (08:30)
[2023-10-22] MEDS: ATORVASTATIN 40 MG TAB PO SCH (08:31)
[2023-10-22] MEDS: ASPIRIN 81 MG ECTAB PO SCH (08:31)
--- NOTE | 2023-10-22 09:19 | Cardiology Consultation ---
Date of Consultation October 22, 2023 Assessment & Plan (1) Syncope and collapse: (2) Orthostatic hypotension: (3) Pacemaker: (4) Atrial fibrillation with RVR: (5) Chronic diastolic HF (heart failure): (6) Atypical chest pain: Plan 78-year-old female admitted with syncope followed by episode of atypical chest discomfort. I suspect syncope related to longstanding orthostatic hypotension and chronic borderline resting hypotension. Pacemaker interrogation reveals normal function. No prolonged episodes of tachycardia or ventricular arrhythmias. Discontinue Entresto and monitor blood pressure during hospitalization. Hold torsemide for 24-48 hours and repeat assess volume status, GFR, and electrolytes in the a.m. Continue midodrine, digoxin, and metoprolol. Repeat echocardiogram demonstrates preserved LV systolic function (stable/unchanged). No significant valvular pathology. Findings and recommendations reviewed with patient. All questions answered to her satisfaction. Thank you for allow me to participate in the care of your patient. I spent a total of 60 minutes on the date of service in preparation, delivery, and documentation of the care provided to this patient, excluding any time spent in the performance of separately billed services. History of Present Illness Reason for Consultation: Syncope on midodrine and Entresto Requesting Physician: Dara RUBALCAVA Attending Physician: Valerio Ken MD History of Present Illness 78-year-old female presents to the emergency department with chest discomfort, shortness of breath, and syncope. History of recurrent syncope on midodrine. Reports feeling acutely lightheaded when walking to the door. She was attempting to leave for a doctor's appointment. Passed out and fell over a chair. No injuries. Bystander reports patient unconscious for up to 2 minutes. EMS was summoned and she was brought to the emergency department. Chest discomfort reported en route treated with sublingual nitroglycerin. Chest pain-free upon arrival to the ER. Negative high-sensitivity troponins. ECG demonstrates atrial fibrillation with demand ventricular pacing. Telemetry reveals atrial fibrillation, demand pacing, occasional brief episodes of A-fib with RVR noted this morning. Patient was sent for a swallow evaluation earlier today. Upon returning she became diaphoretic and lightheaded. Telemetry reveals a elevation of her heart heart rate, atrial fibrillation with RVR up to approximately 140 bpm. The episode was brief. Patient was being evaluated the bedside by nursing with no overt syncope. Received a.m. medications including high-dose beta-iman. Denies orthopnea, PND, or change in chronic, bilateral lower extremity edema. 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 Postprocedure, with ischemia and rate related tachycardia induced cardiomyopathy suspected. Nonischemic Lexiscan nuclear stress test May 2022. Allergies Allergy/AdvReac Type Severity Reaction Status Date / Time cetirizine AdvReac Intermediate Hallucinati Verified 10/21/23 12:45 ng hydroxyzine AdvReac Intermediate Hallucinati Verified 10/21/23 12:45 ng Home Medications Medication Instructions Recorded Confirmed Type apixaban 5 mg tablet (Eliquis) 5 mg PO AMHS 06/18/18 10/21/23 History atorvastatin 40 mg tablet 40 mg PO QAM 06/18/18 10/21/23 History insulin glargine 100 unit/mL (3 20 unit subcut BIDM 06/18/18 10/21/23 History mL) subcutaneous pen (Lantus Solostar U-100 Insulin) metoprolol succinate 100 mg See Rx Instructions .Route .COMPLEX 06/18/18 10/21/23 History tablet,extended release 24 hr multivitamin 1 tab PO QDL 06/18/18 10/21/23 History nitroglycerin 0.4 mg sublingual 0.4 mg sublingual DIRECTED PRN 06/18/18 10/21/23 History tablet (Nitrostat) Chest Pain oxybutynin chloride 5 mg tablet 5 mg PO BID 06/18/18 10/21/23 History sacubitril 24 mg-valsartan 26 mg 0.5 tab PO AMHS 04/10/20 10/21/23 History tablet (Entresto) glipizide 5 mg tablet 5 mg PO BIDM 04/11/20 10/21/23 History acetaminophen 500 mg tablet 1,000 mg PO TID PRN PAIN/FEVER 05/18/22 10/21/23 History (Tylenol Extra Strength) aspirin 81 mg tablet,delayed 81 mg PO QAM 05/18/22 10/21/23 History release calcium carbonate 600 mg-vitamin 1 tab PO QDD 05/18/22 10/21/23 History D3 10 mcg (400 unit) tablet (Calcium 600 + D(3)) cinnamon bark 500 mg capsule 500 mg PO QDD 05/18/22 10/21/23 History (Cinnamon) loratadine 10 mg tablet (Claritin) 10 mg PO DAILY PRN Congestion 05/18/22 10/21/23 History magnesium oxide 400 mg PO QDL 05/18/22 10/21/23 History peg 400-propylene glycol (PF) 0.4 1 drp OPB DAILY PRN Dry Eyes 05/18/22 10/21/23 History %-0.3 % eye drops in a dropperette (Systane (PF)) phenylephrine-acetaminophen 5 1 tab PO QID PRN Headache 05/18/22 10/21/23 History mg-325 mg tablet (Tylenol Sinus Headache) digoxin 125 mcg (0.125 mg) tablet 0.125 mg PO HS #30 tabs 05/26/22 10/21/23 Rx midodrine 5 mg tablet 5 mg PO TID #90 tabs 05/26/22 10/21/23 Rx torsemide 20 mg tablet 20 mg PO QAM diuretic 10/21/23 10/21/23 History Patient History Medical History Pacemaker Dysphagia Postural dizziness with presyncope Diabetic polyneuropathy Orthostatic hypotension Atrial fibrillation with rapid ventricular response Chest pain Chest pain Acute on chronic diastolic (congestive) heart failure Ischemic cardiomyopathy Tachy-barbra syndrome admitted for elective pacemaker. Underwent procedure no complications; monitored overnight and discharged home. Chronic diastolic HF (heart failure) Paroxysmal A-fib on Eliquis Hx of supraventricular tachycardia Coronary artery disease "anterior [place] 11/10/17, LVEF 20-25%, PCI LAD with ISABEL" Hypertension Dyslipidemia DM type 2 (diabetes mellitus, type 2) Osteoarthritis Surgical History Status post coronary artery stent placement "PCI LAD with ISABEL 11/10/17" History of cholecystectomy History of tonsillectomy History of right knee joint replacement History of appendectomy H/O ovarian cystectomy Social History Smoking Status: Former smoker Second Hand Exposure: No; Do You Dip or Chew Tobacco: No; Hx Alcohol Use: No Hx Substance Use: No Preferred Language: French Communication Ability: Effective Visual Impairment: Limited Rn Documentation Required: No Beliefs That Will Affect Care: None marital status: / Current Living Situation: Alone Current Living Situation Comment: States she will be looking to move to assisted living Other Information That Helps Us Care for You: No Feels Safe at Home: Yes Safety Concerns: Feels Safe At This Time Assistive Devices: Glasses and Walker Review of Systems Review of Systems: All systems reviewed & are unremarkable except as noted in Subjective Physical Exam Constitutional: well nourished and + morbidly obese; no acute distress Respiratory: no respiratory distress, no labored breathing and no retractions Auscultation: no crackles, no rales, no rhonchi and no wheezes Cardiovascular: Rate/Rhythm: + irregularly irregular Heart Sounds: normal S1, normal S2 and + murmur (1/6 systolic ejection murmur heard best at the right second intercostal spa) Vessels: no JVD and no carotid bruit Extremities: + edema (1+ bilateral pedal and pretibial edema.) Gastrointestinal (Abdomen): Inspection/Auscultation: abdomen normal to inspection and normal bowel sounds; abdomen not distended Percussion/Palpation: abdomen soft; abdomen nontender, no guarding and abdomen not rigid Neurologic: CN's II-XI intact bilaterally and moves all extremities; no focal motor deficits Results & Data Vital Signs (Past 12 Hours) Vital Signs Temp Pulse Pulse Resp BP Pulse Ox O2 Del Method 10/22/23 07:58 36.8 C 69 20 121/69 98 Room Air 10/22/23 02:53 36.6 C 62 18 114/66 98 Room Air 10/21/23 23:00 36.5 C 68 19 104/65 94 Room Air 10/21/23 22:00 61 Laboratory Results Cardiac Enzymes 10/22/23 Range/Units 06:08 AST 15 (13-39) U/L Troponin I High Sens 11.0 (0-14) pg/ml Lipids 10/22/23 Range/Units 06:08 Triglycerides 147 (0-150) mg/dl Cholesterol 86 (0-200) mg/dl HDL Cholesterol 26 mg/dl Cholesterol/HDL Ratio 3.3 (0-5) CBC 10/22/23 Range/Units 06:08 WBC 12.32 H (4.8-10.8) K/ul RBC 3.52 L (4.20-5.40) M/uL Hgb 9.3 L (12.0-16.0) g/dl Hct 30.6 L (37.0-47.0) % Plt Count 255 (130-400) K/uL Comprehensive Metabolic Panel 10/22/23 Range/Units 06:08 Sodium 140 (136-145) mmol/L Potassium 4.3 (3.5-5.1) mmol/L Chloride 104 (98-107) mmol/L Carbon Dioxide 30 (21-32) mmol/L BUN 29 H (6-23) mg/dl Creatinine 0.74 (0.6-1.2) mg/dl Glucose 113 H (70-99(Fasting)) mg/dl Calcium 8.8 (8.6-10.3) mg/dl AST 15 (13-39) U/L ALT 10 (7-52) U/L Alkaline Phosphatase 57 (34-104) U/L Total Protein 6.1 (6.0-8.3) gm/dl Albumin 3.2 L (3.4-5.0) gm/dl Intake and Output 10/21/23 10/22/23 10/22/23 22:59 06:59 14:59 Output Total 450 / 450 Balance -450 / -450 Output: Urine 450 / 450 Other: Other Intake Source NPO Weight 100.8 kg 100.8 kg Weight Measurement Method Standing Scale Built in [facility] Diagnostic Findings May 19, 2022 TTE Interpretation Summary ([facility], Dr. Vaca): Study is technically adequate for the evaluation of referral indication. Atrial fibrillation present during the echocardiogram study. The left ventricular wall motion is normal. The left ventricular ejection fraction is normal, 55 to 60%. The left atrium is moderately dilated. There was mild aortic valve sclerosis without significant aortic valve stenosis. Pulmonary artery systolic pressure estimated to be 30 to 39 mmHg (normal to mildly elevated). May 2022 Lexiscan nuclear stress test Impression ([facility]): The Lexiscan myocardial perfusion imaging study has normal with no evidence of scar or inducible ischemia. Left ventricular ejection fraction is normal, 60% by the gated SPECT technique Device interrogation on March 2023 Demonstrated appropriate function. Remaining longevity: 10.0 years. Time in AT/AF: 100%. Rates well co ntrolled. Ventricular paced 50.9%.
--- NOTE | 2023-10-22 09:35 | Gastrointestinal Consultation ---
Date of Consultation October 22, 2023 Assessment & Plan (1) Dysphagia: Pt is a 78 yo female w syncope, SOLORZANO, CP, SOB symptoms seen for dysphagia issues since last week. Never had EGD eval before - PPI PO daily - Given pending workup for her syncope, will defer inpt EGD. - Recommend UGI study w Speech therapy evaluation - OP EGD will be arranged - FL diet, advance as tolerated - Call over weekend if any issues arise Supervising Physician Co-Signing Physician Notes I Saw and evaluated the patient, we were asked to evaluate the patient due to difficulty with swallowing which been ongoing for patient is able to tolerate substances without any difficulty. The patient does not recall having a recent upper endoscopy performed. Of note she was admitted to the hospital due to a syncopal episode and is presently undergoing a cardiac evaluation. Patient is chronic anticoagulation as well. Recomendation: Soft food only please Protonix 40 mg per day Upper GI series / swallowing study OP EGD off anticoagulation so we may perform a dilation History of Present Illness Reason for Consultation: Dysphagia Requesting Physician: Dr. Valerio Ken Attending Physician: Dr. Blaire Paul History of Present Illness Pt is a 78 you female who presented w c/o CP, SOB, SOLORZANO and syncope. Significant medical hx include Afib on Eliquis, s/p pacemaker, CAD, DM II, HTN, HLD. GI consulted for dysphagia. She reports was having no issues w her swallowing until last week. She was eating then suddenly have lots of watery mucus regurgitation. Since then she felt that she's unable to swallow well but admits she kept oatmeal down. This AM was able to swallow pills but afterwards regurgitated lots of mucus too. She denies abd pain, n/v, changes in bowel habits Allergies Allergy/AdvReac Type Severity Reaction Status Date / Time cetirizine AdvReac Intermediate Hallucinati Verified 10/21/23 12:45 ng hydroxyzine AdvReac Intermediate Hallucinati Verified 10/21/23 12:45 ng Home Medications Medication Instructions Recorded Confirmed Type apixaban 5 mg tablet (Eliquis) 5 mg PO AMHS 06/18/18 10/21/23 History atorvastatin 40 mg tablet 40 mg PO QAM 06/18/18 10/21/23 History insulin glargine 100 unit/mL (3 20 unit subcut BIDM 06/18/18 10/21/23 History mL) subcutaneous pen (Lantus Solostar U-100 Insulin) metoprolol succinate 100 mg See Rx Instructions .Route .COMPLEX 06/18/18 10/21/23 History tablet,extended release 24 hr multivitamin 1 tab PO QDL 06/18/18 10/21/23 History nitroglycerin 0.4 mg sublingual 0.4 mg sublingual DIRECTED PRN 06/18/18 10/21/23 History tablet (Nitrostat) Chest Pain oxybutynin chloride 5 mg tablet 5 mg PO BID 06/18/18 10/21/23 History sacubitril 24 mg-valsartan 26 mg 0.5 tab PO AMHS 04/10/20 10/21/23 History tablet (Entresto) glipizide 5 mg tablet 5 mg PO BIDM 04/11/20 10/21/23 History acetaminophen 500 mg tablet 1,000 mg PO TID PRN PAIN/FEVER 05/18/22 10/21/23 History (Tylenol Extra Strength) aspirin 81 mg tablet,delayed 81 mg PO QAM 05/18/22 10/21/23 History release calcium carbonate 600 mg-vitamin 1 tab PO QDD 05/18/22 10/21/23 History D3 10 mcg (400 unit) tablet (Calcium 600 + D(3)) cinnamon bark 500 mg capsule 500 mg PO QDD 05/18/22 10/21/23 History (Cinnamon) loratadine 10 mg tablet (Claritin) 10 mg PO DAILY PRN Congestion 05/18/22 10/21/23 History magnesium oxide 400 mg PO QDL 05/18/22 10/21/23 History peg 400-propylene glycol (PF) 0.4 1 drp OPB DAILY PRN Dry Eyes 05/18/22 10/21/23 History %-0.3 % eye drops in a dropperette (Systane (PF)) phenylephrine-acetaminophen 5 1 tab PO QID PRN Headache 05/18/22 10/21/23 Histo ry mg-325 mg tablet (Tylenol Sinus Headache) digoxin 125 mcg (0.125 mg) tablet 0.125 mg PO HS #30 tabs 05/26/22 10/21/23 Rx midodrine 5 mg tablet 5 mg PO TID #90 tabs 05/26/22 10/21/23 Rx torsemide 20 mg tablet 20 mg PO QAM diuretic 10/21/23 10/21/23 History Patient History Medical History Pacemaker Dysphagia Postural dizziness with presyncope Diabetic polyneuropathy Orthostatic hypotension Atrial fibrillation with rapid ventricular response Chest pain Chest pain Acute on chronic diastolic (congestive) heart failure Ischemic cardiomyopathy Tachy-barbra syndrome admitted for elective pacemaker. Underwent procedure no complications; monitored overnight and discharged home. Chronic diastolic HF (heart failure) Paroxysmal A-fib on Eliquis Hx of supraventricular tachycardia Coronary artery disease "anterior [place] 11/10/17, LVEF 20-25%, PCI LAD with ISABEL" Hypertension Dyslipidemia DM type 2 (diabetes mellitus, type 2) Osteoarthritis Surgical History Status post coronary artery stent placement "PCI LAD with ISABEL 11/10/17" History of cholecystectomy History of tonsillectomy History of right knee joint replacement History of appendectomy H/O ovarian cystectomy Social History Smoking Status: Former smoker Second Hand Exposure: No; Do You Dip or Chew Tobacco: No; Hx Alcohol Use: No Hx Substance Use: No Preferred Language: Faroese Communication Ability: Effective Visual Impairment: Limited Automation And Controls Manager Required: No Beliefs That Will Affect Care: None marital status: / Current Living Situation: Alone Current Living Situation Comment: States she will be looking to move to assisted living Other Information That Helps Us Care for You: No Feels Safe at Home: Yes Safety Concerns: Feels Safe At This Time Assistive Devices: Glasses and Walker Review of Systems Review of Systems: All systems reviewed & are unremarkable except as noted in HPI & below Physical Exam Constitutional: WD/WN, vitals as above well groomed, cooperative and comfortable Eyes: PERRL, conjunctivae normal, anicteric sclerae ENMT: external ear and nose normal, oropharynx normal Respiratory: normal respiratory effort, lungs clear to auscultation Cardiovascular: RRR, no murmur, no edema Gastrointestinal (Abdomen): normal bowel sounds, soft, nontender, no hepatosplenomegaly Skin: no rashes, warm and dry no jaundice Psychiatric: A+Ox3, euthymic affect Lymphatic: no lymphedema Results & Data Vital Signs (Past 12 Hours) Vital Signs Temp Pulse Pulse Resp BP Pulse Ox O2 Del Method 10/22/23 07:58 36.8 C 69 20 121/69 98 Room Air 10/22/23 02:53 36.6 C 62 18 114/66 98 Room Air 10/21/23 23:00 36.5 C 68 19 104/65 94 Room Air 10/21/23 22:00 61
--- NOTE | 2023-10-22 11:05 | Fluoroscopy Report ---
FL video swallow HISTORY: dysphagia TECHNIQUE: Video fluoroscopic evaluation of swallowing was performed in the AP and lateral projection s by the speech pathology staff. The patient is fed nectar-thick and thin liquid barium, and barium p udding. FLUOROSCOPY TIME: 1 minute and 10 seconds.. Ka,r: 10.5 mGy COMPARISON STUDY: None. FINDINGS: There is normal hyoid excursion and epiglottic deflection. Difficult study to interpret as there is significant motion throughout the examination. There is moderate cricopharyngeal dysfunction identified. Swallowing function appears to be within normal limits. However, there are multiple epis odes of regurgitation of the swallowed barium contrast from the esophagus into the hypopharynx. IMPRESSION: 1. No aspiration identified. 2. Swallowing function appears to be within normal limits. However, there are multiple episodes of re gurgitation of the swallowed barium contrast from the esophagus back into the hypopharynx throughout the examination. 3. Please see the speech pathologist report for detailed findings and recommendations. ACT 112: Negative or not required by law. Electronically signed by: Zeyad Escalera M.D. 10/22/2023 11:04 AM
--- NOTE | 2023-10-22 11:54 | Electrocardiogram Report ---
Test Reason : Blood Pressure : / mmHG Vent. Rate : 068 BPM Atrial Rate : 069 BPM P-R Int : 000 ms QRS Dur : 194 ms QT Int : 478 ms P-R-T Axes : 000 -65 096 degrees QTc Int : 508 ms Ventricular-paced rhythm with occasional , and consecutive supraventricular complexes Abnormal ECG When compared with ECG of 20-MAY-2022 06:39, Electronic ventricular pacemaker has replaced Atrial fibrillation Vent. rate has decreased BY 35 BPM Confirmed by Jd Crowley ([id number]) on 10/22/2023 11:53:55 AM Referred By: Confirmed By:Nirmal Crowley
--- NOTE | 2023-10-22 12:43 | Pharmacy Report ---
Pharmacy Glycemic Short Note 2 - Date of Service October 22, 2023 - Glycemic Short BSG Results (Last 24 hours): 10/21/23 10/21/23 10/22/23 16:47 21:07 00:00 Glucose POC Glucose 106 H 151 H 127 H 10/22/23 10/22/23 10/22/23 06:08 06:12 07:28 Glucose 113 H POC Glucose 121 H 155 H 10/22/23 11:18 Glucose POC Glucose 195 H OUTPATIENT ANTIDIABETIC REGIMEN: * Lantus 20 units SQ BIDM * glipizide 10mg PO BIDM * HbA1c 7.3% (10/22/23) ASSESSMENT: * Ciara is a 78 YOF admitted with chest pain/shortness of breath and a history of T2DM. Pharmacy has been consulted for glycemic management while inpatient. * Currently NPO per speech therapy recommendations after swallow eval, to be continued through the weekend for EGD on Wednesday. Fasting BSG this AM acceptable, continue current basal regimen (weight based stress of 1) and 50% home regimen. * No glycemic stressors noted at this time. * BSGs mostly within goal range, diet ordered for some time this morning potentially causing elevated lunchtime BSG today as no Novolog was administered. Continue NovoLog at a weight based stress of 2. PLAN FOR INPATIENT GLYCEMIC CONTROL: * Hold outpatient oral diabetes medications * Basal insulin * Lantus 10 units SQ BID * Bolus insulin * NovoLog per scale ACHS or Q6hrs while NPO * Goal Range: Low 120 mg/dL - High 160 mg/dL * Correction Factor: 20 mg/dL/unit * Nutritional / Prandial insulin per carb ratio of 1 unit per 7 grams CHO consumed
--- NOTE | 2023-10-22 14:35 | Hospitalist Progress Note ---
Date of Service October 22, 2023 Assessment & Plan (1) Midsternal chest pain: (2) Coronary artery disease: (3) Pacemaker: (4) Dysphagia: (5) Paroxysmal A-fib: (6) DM type 2 (diabetes mellitus, type 2): (7) Hypertension: (8) Dyslipidemia: Plan 78 y/o presents to the ED today with complaints of chest pain and SOB with a headache. Today, she was proceeding to her PCP office and was walking inside her home with her four-wheeled walker. She was able to get to her door but then 'slumped over' onto her couch. Her AUTUMN was with her and reports that the episode lasted 2-3 minutes prior to her being arousable. She does not recall the event happening. She reports that this feels different than other times that she has 'passed out'. She denies hitting her head. She also reports that over the past week she has lost 7 pounds and attributes this to dysphagia that she has been having over the past few weeks. She reports that every time she eats or drinks anything it feels as though something is 'stuck' in her throat and she complains of 'watery mucus' regurgitating. She denies any esophageal difficulties prior to this and denies having GERD. She has a PMH that includes CAD, HTN, HLD, AF (On Eliquis), diabetes mellitus type 2, HFpEF, overactive bladder. 05/23 patient did have a Lexiscan nuke scan with no ischemia in 2005 she had a catheterization with no obstruction noted. ISABEL to LAD 2018. No known history of DERRICK. No leukocytosis, LFTs normal, otherwise labs unremarkable. Troponin pending. Last A1c 03/08/2023 7.5. Patient denies tobacco, alcohol, or recreational drug use. Patient will be admitted for further evaluation of her syncope, chest pain and dysphagia. Syncope and Collapse: Likely secondary to orthostatic hypotension --CT Head:No acute intracranial abnormality. --ECHO: No significant change when compared to prior study. EF 60 to 65%. Mild concentric LVH. Basal septum is thickened and angulated consistent with sigmoid septum. Left atrium is severely dilated. Aortic valve sclerosis mild, without significant arctic valve stenosis. Mild tricuspid regurgitation. Findings not suggestive of pulmonary hypertension -Pacemaker interrogation showed normal function per cardiology Monitor on telemetry for any arrhythmias Orthostatics significantly positive Entresto discontinued Hold torsemide for now Gentle IV fluids Continue midodrine Continue metoprolol with holding parameters Compression stockings ordered Appreciate cardiology input Atypical Chest pain: Likely secondary to dysphagia H/O CAD S/P ISABEL to LAD 2017 Troponin Negative Normal left ventricle wall motion on echo Continue aspirin, Lipitor, metoprolol Monitor Dysphagia: Video Swallow:No aspiration identified.Swallowing function appears to be within normal limits. However, there are multiple episodes of regurgitation of the swallowed barium contrast from the esophagus back into the hypopharynx throughout the examination. 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 Quit smoking 2017 Interrogation of pacer completed Paroxysmal A-fib: Chronic Continue digoxin, metoprolol Eliquis held for EGD HFpEF: Chronic Entresto discontinued Hold torsemide for now Echo as above Monitor volume status Diabetes mellitus type 2: HbA1c 7.3 Takes glipizide; hold while inpatient Continue insulin while hospitalized Monitor BGs HLD: continue Lipitor DVT Px: Heparin SQ for now Code Status: Full Code Admission and Anticipated Discharge Date Admission Date: October 21, 2023 Subjective Patient is seen and examined at bedside Reports chronic dyspnea on exertion Also reports dysphagia, some discomfort while swallowing Patient denies any chest pain, nausea, vomiting, abdominal pain today Had speech therapy evaluation today Patient was unsure about events of possible syncope Review of Systems Review of Systems: All systems reviewed & are unremarkable except as noted in Subjective Physical Exam Physical Exam: Physical Exam: Vitals signs as noted above General Appearance:Obese, no apparent distress Head: normocephalic, Atraumatic Eyes: normal inspection, EOMI Neck: supple, Trachea midline Respiratory/Chest: Normal breath sounds, CTA, No accessory muscle use Cardiovascular: Irregularly irregular, + murmur. +Pacer Abdomen/GI:Soft, Non tender, Bowel sounds present Extremities/Musculoskeletal:normal inspection, 1+ pedal edema Neurologic/Psych:AAOX3, grossly no focal neurological deficits Skin: normal color, warm Results & Data Results & Data Vital Signs (Past 12 Hours) Vital Signs Temp Pulse Pulse Resp BP Pulse Ox O2 Del Method 10/22/23 11:17 36.8 C 89 18 100/69 96 Room Air 10/22/23 10:08 71 10/22/23 07:58 36.8 C 69 20 121/69 98 Room Air 10/22/23 02:53 36.6 C 62 18 114/66 98 Room Air Laboratory Results Short CBC 10/22/23 Range/Units 06:08 WBC 12.32 H (4.8-10.8) K/ul Hgb 9.3 L (12.0-16.0) g/dl Hct 30.6 L (37.0-47.0) % Plt Count 255 (130-400) K/uL BMP 10/22/23 06:08 Sodium 140 Potassium 4.3 Chloride 104 Carbon Dioxide 30 BUN 29 H Creatinine 0.74 Glucose 113 H Calcium 8.8 Liver Function 10/22/23 Range/Units 06:08 Total Bilirubin 0.5 (0.2-1.0) mg/dl AST 15 (13-39) U/L ALT 10 (7-52) U/L Alkaline Phosphatase 57 (34-104) U/L Albumin 3.2 L (3.4-5.0) gm/dl (2) Coronary artery disease Coronary Disease-Associated Artery/Lesion type: [place] artery [place] vs. transplanted heart: [place] heart Associated angina: without angina Qualified Code(s): I25.10 - Atherosclerotic heart disease of [place] coronary artery without angina pectoris (7) Hypertension Hypertension type: essential hypertension Qualified Code(s): I10 - Essential (primary) hypertension
[2023-10-22] MEDS: SODIUM CHLORIDE 0.9% 500 ML IV ONE (15:00)
[2023-10-22] MEDS: HEPARIN SOD 5,000 UNIT/0.5 ML VIAL SQ SCH (20:08)
[2023-10-22] MEDS: LANTUS PER UNIT CHARGE SQ ONE (20:14)
[2023-10-23 07:08] LABS: Hematocrit (blood only) 27.7 % (37.0-47.0); Hemoglobin 8.7 g/dl (12.0-16.0); Mean Corpuscular Hgb Conc 31.4 g/dL (32.0-36.0); Mean Platelet Volume 9.5 fL (9.4-12.4); Platelet Count 247 K/uL (130-400); RDW Coefficient of Variation 14.6 % (11.5-14.5); RDW Standard Deviation 45.2 fL (36.4-46.3); Red Blood Count 3.22 M/uL (4.20-5.40); White Blood Count 11.22 K/ul (4.8-10.8)
[2023-10-23 07:37] LABS: BUN Creatinine Ratio 39.7 (10-20); Calcium 8.8 mg/dl (8.6-10.3); Creatinine Clr Calc Pharmacy 71.1 ml/min; Est GFR (African American) 90.8 ml/min; Est GFR (Non-African American) 78.3 ml/min; Magnesium 1.9 mg/dl (1.7-2.4); Potassium 4.8 mmol/L (3.5-5.1)
[2023-10-23] MEDS: SODIUM CHLORIDE 0.9% 1,000 ML IV ONE (10:03)
--- NOTE | 2023-10-23 10:35 | Cardiology Progress Note ---
<Statement entered by Jennifer Quiñones MD - 10/23/23 11:01> I have reviewed the advanced practitioner's documentation on the date of service referenced in note, and I agree with, and take responsibility for the plan of care. 78 yr old with history of HF preserved EF on entresto, torsemide, admitted with syncope , orthostatic hypotension receiving fluids, entresto discontinued diuretics on hold. feeling better exam : SM normal rate , no edema AP: diuretics on hold , on discharge will likely need lower dose metoprolol at lower dose. entresto discontinued continue digoxin, midodrine I spent a total of [15] minutes coordinating, documenting, and providing care for this patient excluding time spent in the performance of separately billed services or time spent by another provider. Date of Service October 23, 2023 Assessment & Plan (1) Syncope and collapse: (2) Orthostatic hypotension: (3) Pacemaker: (4) Atrial fibrillation with RVR: (5) Chronic diastolic HF (heart failure): (6) Atypical chest pain: Plan Admitted with syncope followed by an episode of atypical chest discomfort Patient has not having anything to eat since Wednesday PM + Intermittent hypotension, and orthostasis. Pacemaker interrogation demonstrated appropriate function, well controlled rates. Resting echocardiography demonstrated preserved LV systolic function (stable/unchanged). No significant valvular pathology. Recommendations: 1. Hold Torsemide 2. Decrease Toprol XL to 100 mg BID 3. Holding Entresto 4. Continue digoxin, midodrine, ASA and atorvastatin 6. Resume Eliquis post EGD I spent a total of 30 minutes on the date of service in preparation, delivery, and documentation of the care provided to this patient excluding any time spent in the performance of separately billed services. This visit was a split-shared visit with the substantive portion of the medical decision making performed by the supervising spinal surgeon/billing provider. Admission and Anticipated Discharge Date Admission Date: October 21, 2023 Subjective Patient seen and examined. Chart, medications, telemetry reviewed. + Lightheadedness and dyspnea when positional change. No chest pain. No palpitations. No edema. No fevers or chills, NPO for EGD on Wednesday, October 25, 2023 Telemetry: Atrial fibrillation, paced, well controlled heart rates. Review of Systems Review of Systems: Complete Review of Systems is as stated above, negative, or noncontributory Physical Exam Physical Exam: General: A&Ox3. NAD. HENT: Normocephalic. Atraumatic. Eyes: PER. Conjunctiva pink, sclera clear. Neck: No JVD. No HJR. Heart: Regular, paced. Systolic murmur. Lungs: Clear to auscultation. Abdomen: +BS. Soft. Nontender. No masses or organomegaly. Extremities: Minimal edema. Stasis changes. Skin: ? Tinea on dorsal aspect of left wrist. Limited neurological examination is without focal deficits. Pulses: radial=2/4, posterior tibial=1/4. Results & Data Vital Signs (Past 12 Hours) Vital Signs Temp Pulse Pulse Resp BP Pulse Ox O2 Del Method 10/23/23 07:48 36.8 C 64 16 98/65 L 96 Room Air 10/23/23 04:29 36.4 C L 73 16 136/73 97 Room Air 10/22/23 22:57 73 Laboratory Results CBC 10/23/23 Range/Units 06:45 WBC 11.22 H (4.8-10.8) K/ul RBC 3.22 L (4.20-5.40) M/uL Hgb 8.7 L (12.0-16.0) g/dl Hct 27.7 L (37.0-47.0) % Plt Count 247 (130-400) K/uL Comprehensive Metabolic Panel 10/23/23 Range/Units 06:45 Sodium 141 (136-145) mmol/L Potassium 4.8 (3.5-5.1) mmol/L Chloride 105 (98-107) mmol/L Carbon Dioxide 31 (21-32) mmol/L BUN 29 H (6-23) mg/dl Creatinine 0.73 (0.6-1.2) mg/dl Glucose 109 H (70-99(Fasting)) mg/dl Calcium 8.8 (8.6-10.3) mg/dl Intake and Output 10/22/23 10/23/23 10/23/23 22:59 06:59 14:59 Intake Total 560 / 810 Output Total 400 / 600 Balance 160 / 210 Intake: IV 500 / 500 Sodium Chloride 0.9% 500 ml @ 500 / 500 50 mls/hr IV .Q10H [facility] Rx#: [id number] Oral 60 / 310 Output: Urine 400 / 600 Other: Other Intake Source NPO # Unmeasured Voids 1 Weight 100.8 kg 101.7 kg Weight Measurement Method Built in [facility]
[2023-10-23] MEDS: SODIUM CHLORIDE 0.9% 1,000 ML IV SCH (15:13)
--- NOTE | 2023-10-23 16:11 | Hospitalist Progress Note ---
Date of Service October 23, 2023 Assessment & Plan (1) Midsternal chest pain: (2) Coronary artery disease: (3) Pacemaker: (4) Dysphagia: (5) Paroxysmal A-fib: (6) DM type 2 (diabetes mellitus, type 2): (7) Hypertension: (8) Dyslipidemia: Plan 78 y/o presents to the ED today with complaints of chest pain and SOB with a headache. Today, she was proceeding to her PCP office and was walking inside her home with her four-wheeled walker. She was able to get to her door but then 'slumped over' onto her couch. Her AUTUMN was with her and reports that the episode lasted 2-3 minutes prior to her being arousable. She does not recall the event happening. She reports that this feels different than other times that she has 'passed out'. She denies hitting her head. She also reports that over the past week she has lost 7 pounds and attributes this to dysphagia that she has been having over the past few weeks. She reports that every time she eats or drinks anything it feels as though something is 'stuck' in her throat and she complains of 'watery mucus' regurgitating. She denies any esophageal difficulties prior to this and denies having GERD. She has a PMH that includes CAD, HTN, HLD, AF (On Eliquis), diabetes mellitus type 2, HFpEF, overactive bladder. 05/23 patient did have a Lexiscan nuke scan with no ischemia in 2005 she had a catheterization with no obstruction noted. ISABEL to LAD 2018. No known history of DERRICK. No leukocytosis, LFTs normal, otherwise labs unremarkable. Troponin pending. Last A1c 03/08/2023 7.5. Patient denies tobacco, alcohol, or recreational drug use. Patient will be admitted for further evaluation of her syncope, chest pain and dysphagia. Syncope and Collapse: Likely secondary to orthostatic hypotension --CT Head:No acute intracranial abnormality. --ECHO: No significant change when compared to prior study. EF 60 to 65%. Mild concentric LVH. Basal septum is thickened and angulated consistent with sigmoid septum. Left atrium is severely dilated. Aortic valve sclerosis mild, without significant arctic valve stenosis. Mild tricuspid regurgitation. Findings not suggestive of pulmonary hypertension -Pacemaker interrogation showed normal function per cardiology Monitor on telemetry for any arrhythmias Orthostatics significantly positive Entresto discontinued Hold torsemide for now Digoxin changed to every alternate day Gentle IV fluids Continue midodrine Continue metoprolol decreased to 100 mg twice daily Compression stockings ordered Appreciate cardiology input Atypical Chest pain: Likely secondary to dysphagia H/O CAD S/P ISABEL to LAD 2017 Troponin Negative Normal left ventricle wall motion on echo Continue aspirin, Lipitor, metoprolol Monitor Dysphagia: Video Swallow:No aspiration identified.Swallowing function appears to be within normal limits. However, there are multiple episodes of regurgitation of the swallowed barium contrast from the esophagus back into the hypopharynx throughout the examination. Appreciate GI, speech therapy evaluation NPO for now Continue PPI Eliquis held for EGD on Wednesday for possible dilatation Strict n.p.o. recommended by speech therapy Pacemaker: Chronic Inserted 10/2018 status post tachybradycardia syndrome Quit smoking 2017 Interrogation of pacer completed Paroxysmal A-fib: Chronic Continue metoprolol Eliquis held for EGD Digoxin changed to Wednesday only HFpEF: Chronic Entresto discontinued Hold torsemide for now Echo as above Monitor volume status Diabetes mellitus type 2: HbA1c 7.3 Takes glipizide; hold while inpatient Continue insulin while hospitalized Monitor BGs HLD: continue Lipitor DVT Px: Heparin SQ for now Code Status: Full Code Admission and Anticipated Discharge Date Admission Date: October 21, 2023 Subjective Patient is seen and examined at bedside Sitting in chair during my encounter Reports dyspnea on exertion and positional dizziness Denies any chest pain today Patient denies any chest pain, nausea, vomiting, abdominal pain today Had speech therapy evaluation again today Review of Systems Review of Systems: All systems reviewed & are unremarkable except as noted in Subjective Physical Exam Physical Exam: Physical Exam: Vitals signs as noted above General Appearance:Obese, no apparent distress Head: normocephalic, Atraumatic Eyes: normal inspection, EOMI Neck: supple, Trachea midline Respiratory/Chest: Normal breath sounds, CTA, No accessory muscle use Cardiovascular: Irregularly irregular, + murmur. +Pacer Abdomen/GI:Soft, Non tender, Bowel sounds present Extremities/Musculoskeletal:normal inspection, 1+ pedal edema Neurologic/Psych:AAOX3, grossly no focal neurological deficits Skin: normal color, warm Results & Data Results & Data Vital Signs (Past 12 Hours) Vital Signs Temp Pulse Pulse Resp BP Pulse Ox O2 Del Method 10/23/23 15:32 36.8 C 68 18 115/68 96 Room Air 10/23/23 12:14 36.5 C 59 L 17 96/57 L 95 Room Air 10/23/23 08:00 64 10/23/23 07:48 36.8 C 64 16 98/65 L 96 Room Air 10/23/23 04:29 36.4 C L 73 16 136/73 97 Room Air Laboratory Results Short CBC 10/23/23 Range/Units 06:45 WBC 11.22 H (4.8-10.8) K/ul Hgb 8.7 L (12.0-16.0) g/dl Hct 27.7 L (37.0-47.0) % Plt Count 247 (130-400) K/uL BMP 10/23/23 06:45 Sodium 141 Potassium 4.8 Chloride 105 Carbon Dioxide 31 BUN 29 H Creatinine 0.73 Glucose 109 H Calcium 8.8 (2) Coronary artery disease Coronary Disease-Associated Artery/Lesion type: [place] artery [place] vs. transplanted heart: [place] heart Associated angina: without angina Qualified Code(s): I25.10 - Atherosclerotic heart disease of [place] coronary artery without angina pectoris (7) Hypertension Hypertension type: essential hypertension Qualified Code(s): I10 - Essential (primary) hypertension
[2023-10-23] MEDS: LANTUS PER UNIT CHARGE SQ SCH (20:19)
[2023-10-23] MEDS: METOPROLOL SUCC 50MG EXT REL TAB PO SCH (20:20)
[2023-10-24 05:52] LABS: Hematocrit (blood only) 26.5 % (37.0-47.0); Hemoglobin 8.1 g/dl (12.0-16.0); Mean Corpuscular Hemoglobin 26.8 pg (25.0-34.0); Mean Corpuscular Hgb Conc 30.6 g/dL (32.0-36.0); Mean Corpuscular Volume 87.7 fL (80.0-100.0); Mean Platelet Volume 9.9 fL (9.4-12.4); Platelet Count 239 K/uL (130-400); RDW Coefficient of Variation 14.6 % (11.5-14.5); RDW Standard Deviation 46.5 fL (36.4-46.3); Red Blood Count 3.02 M/uL (4.20-5.40); White Blood Count 10.07 K/ul (4.8-10.8)
[2023-10-24 06:10] LABS: BUN Creatinine Ratio 37.7 (10-20); Creatinine Clr Calc Pharmacy 75.6 ml/min; Est GFR (Non-African American) 82.8 ml/min; Potassium 4.1 mmol/L (3.5-5.1)
[2023-10-24] MEDS ORDERED: LANTUS PER UNIT CHARGE SQ SCH ×2 (09:00)
--- NOTE | 2023-10-24 11:04 | Pharmacy Report ---
Pharmacy Glycemic Short Note 2 - Date of Service October 24, 2023 - Glycemic Short BSG Results (Last 24 hours): 10/23/23 10/23/23 10/23/23 12:05 15:15 18:11 Glucose POC Glucose 142 H 129 H 105 H 10/23/23 10/23/23 10/24/23 20:14 23:53 05:17 Glucose 82 POC Glucose 102 H 79 10/24/23 06:03 Glucose POC Glucose 90 OUTPATIENT ANTIDIABETIC REGIMEN: * Lantus 20 units SQ BIDM * glipizide 10mg PO BIDM * HbA1c 7.3% (10/22/23) ASSESSMENT: 10/23 * Pt NPO last 2 days, yesterday had 15 units of insulin, all basal, blood sugars at goal, but patient does feel symptomatically low at 79mg/dl. Continue higher goal range. * Held AM Lantus, resumed at lunch when clear liquid diet resumed. * Will keep reduced dose of basal for today with PRN dose HS for BSG > 180mg/dl. 10/21 * Ciara is a 78 YOF admitted with chest pain/shortness of breath and a history of T2DM. Pharmacy has been consulted for glycemic management while inpatient. * Currently NPO per speech therapy recommendations after swallow eval, to be continued through the weekend for EGD on Wednesday. Fasting BSG this AM acceptable, continue current basal regimen (weight based stress of 1) and 50% home regimen. * No glycemic stressors noted at this time. * BSGs mostly within goal range, diet ordered for some time this morning potentially causing elevated lunchtime BSG today as no Novolog was administered. Continue NovoLog at a weight based stress of 2. PLAN FOR INPATIENT GLYCEMIC CONTROL: * Hold outpatient oral diabetes medications * Basal insulin * Lantus 10 units SQ daily starting at 1130 today * Lantus 5 units SQ HS for BSG > 180mg/dl * Bolus insulin * NovoLog per scale ACHS or Q6hrs while NPO * Goal Range: Low 120 mg/dL - High 160 mg/dL * Correction Factor: 20 mg/dL/unit * Nutritional / Prandial insulin per carb ratio of 1 unit per 7 grams CHO consumed
[2023-10-24] MEDS: INSULIN ASPART PER UNIT CHARGE SC SCH (12:02)
[2023-10-24] MEDS: LANTUS PER UNIT CHARGE SQ SCH ×2 (12:03→20:06)
--- NOTE | 2023-10-24 13:12 | Cardiology Progress Note ---
Date of Service October 24, 2023 Assessment & Plan (1) Syncope and collapse: (2) Orthostatic hypotension: (3) Pacemaker: (4) Atrial fibrillation with RVR: (5) Chronic diastolic HF (heart failure): (6) Atypical chest pain: Plan 78-year-old female admitted following syncopal episode, and atypical chest discomfort Intermittent hypotension and orthostasis observed. Pacemaker interrogation demonstrated appropriate function, well controlled rates. Resting echocardiography demonstrated preserved LV systolic function (stable/unchanged). No significant valvular pathology. Recommendations: 1. Continue to hold Torsemide. Will need lower dose on discharge. 2. Entresto discontinued this admission. 3. Digoxin decreased to only on MWF this admission 4. Metoprolol succinate decreased to 100 mg twice daily this admission. 4. Continue midodrine, aspirin, atorvastatin 5. Resume Eliquis post EGD when able Admission and Anticipated Discharge Date Admission Date: October 21, 2023 Supervising Physician Co-Signing Physician Notes I have reviewed the advanced practitioner's documentation on the date of service referenced in note, and I agree with, and take responsibility for the plan of care. 78-year-old female with syncopal episode hypotension positive orthostatics History of heart failure with preserved ejection fraction was on Entresto torsemide. Entresto was discontinued torsemide has been held She is scheduled for endoscopy for evaluation of dysphagia Digoxin and metoprolol dose have been reduced Continued on midodrine I spent a total of [15] minutes coordinating, documenting, and providing care for this patient excluding time spent in the performance of separately billed services or time spent by another provider. Subjective Patient seen and examined. Chart, medications, and telemetry reviewed "I am 1000% better." No chest pain. No palpitations. No shortness of breath. Less edema today as compared to yesterday Telemetry: Atrial fibrillation, paced in the 60s Review of Systems Review of Systems: Complete Review of Systems is as stated above, negative, or noncontributory Physical Exam Physical Exam: General: A&Ox3. NAD. HENT: Normocephalic. Atraumatic. Eyes: PER. Conjunctiva pink, sclera clear. Neck: No JVD. No HJR. Heart: Regular, paced. Systolic murmur. Lungs: Clear to auscultation. Abdomen: +BS. Soft. Nontender. No masses or organomegaly. Extremities: Minimal nonpitting edema. Stasis changes. Skin: ? Tinea on dorsal aspect of left wrist. Limited neurological examination is without focal deficits. Pulses: radial=2/4, posterior tibial=1/4. Results & Data Vital Signs (Past 12 Hours) Vital Signs Temp Pulse Pulse Resp BP Pulse Ox O2 Del Method 10/24/23 11:34 36.5 C 61 17 95/55 L 97 Room Air 10/24/23 08:00 60 10/24/23 07:36 36.6 C 66 17 114/66 97 Room Air 10/24/23 03:00 36.6 C 81 18 128/74 91 Room Air Laboratory Results CBC 10/24/23 Range/Units 05:17 WBC 10.07 (4.8-10.8) K/ul RBC 3.02 L (4.20-5.40) M/uL Hgb 8.1 L (12.0-16.0) g/dl Hct 26.5 L (37.0-47.0) % Plt Count 239 (130-400) K/uL Comprehensive Metabolic Panel 10/24/23 Range/Units 05:17 Sodium 141 (136-145) mmol/L Potassium 4.1 (3.5-5.1) mmol/L Chloride 107 (98-107) mmol/L Carbon Dioxide 27 (21-32) mmol/L BUN 26 H (6-23) mg/dl Creatinine 0.69 (0.6-1.2) mg/dl Glucose 82 (70-99(Fasting)) mg/dl Calcium 8.0 L (8.6-10.3) mg/dl Intake and Output 10/23/23 10/24/23 10/24/23 22:59 06:59 14:59 Intake Total 429 / 1279 850 / 1279 Output Total 400 / 400 Balance 429 / 879 450 / 879 Intake: IV 429 / 1159 730 / 1159 Sodium Chloride 0.9% 1,000 ml @ 429 / 1159 730 / 1159 75 mls/hr IV .[id number] [facility] Rx#: [id number] Oral 120 / 120 Output: Urine 400 / 400 Other: Other Intake Source NPO # Unmeasured Voids 1 Weight 102.4 kg Weight Measurement Method Built in [facility]
--- NOTE | 2023-10-24 13:57 | Hospitalist Progress Note ---
Date of Service October 24, 2023 Assessment & Plan (1) Midsternal chest pain: (2) Coronary artery disease: (3) Pacemaker: (4) Dysphagia: (5) Paroxysmal A-fib: (6) DM type 2 (diabetes mellitus, type 2): (7) Hypertension: (8) Dyslipidemia: Plan 78 y/o presents to the ED today with complaints of chest pain and SOB with a headache. Today, she was proceeding to her PCP office and was walking inside her home with her four-wheeled walker. She was able to get to her door but then 'slumped over' onto her couch. Her AUTUMN was with her and reports that the episode lasted 2-3 minutes prior to her being arousable. She does not recall the event happening. She reports that this feels different than other times that she has 'passed out'. She denies hitting her head. She also reports that over the past week she has lost 7 pounds and attributes this to dysphagia that she has been having over the past few weeks. She reports that every time she eats or drinks anything it feels as though something is 'stuck' in her throat and she complains of 'watery mucus' regurgitating. She denies any esophageal difficulties prior to this and denies having GERD. She has a PMH that includes CAD, HTN, HLD, AF (On Eliquis), diabetes mellitus type 2, HFpEF, overactive bladder. 05/23 patient did have a Lexiscan nuke scan with no ischemia in 2005 she had a catheterization with no obstruction noted. ISABEL to LAD 2018. No known history of DERRICK. No leukocytosis, LFTs normal, otherwise labs unremarkable. Troponin pending. Last A1c 03/08/2023 7.5. Patient denies tobacco, alcohol, or recreational drug use. Patient will be admitted for further evaluation of her syncope, chest pain and dysphagia. Syncope and Collapse: Likely secondary to orthostatic hypotension --CT Head:No acute intracranial abnormality. --ECHO: No significant change when compared to prior study. EF 60 to 65%. Mild concentric LVH. Basal septum is thickened and angulated consistent with sigmoid septum. Left atrium is severely dilated. Aortic valve sclerosis mild, without significant arctic valve stenosis. Mild tricuspid regurgitation. Findings not suggestive of pulmonary hypertension -Pacemaker interrogation showed normal function per cardiology Monitor on telemetry for any arrhythmias Orthostatics significantly positive Entresto discontinued Hold torsemide for now Digoxin changed to every alternate day Gentle IV fluids Continue midodrine Continue metoprolol decreased to 100 mg twice daily Compression stockings ordered Appreciate cardiology input Continue to hold diuretics, Entresto for now Atypical Chest pain: Likely secondary to dysphagia H/O CAD S/P ISABEL to LAD 2017 Troponin Negative Normal left ventricle wall motion on echo Continue aspirin, Lipitor, metoprolol Monitor Plan for EGD tomorrow Dysphagia: Video Swallow:No aspiration identified.Swallowing function appears to be within normal limits. However, there are multiple episodes of regurgitation of the swallowed barium contrast from the esophagus back into the hypopharynx throughout the examination. Appreciate GI, speech therapy evaluation NPO for now Continue PPI Eliquis held for EGD and possible dilatation Evaluated by speech therapy Plan for EGD tomorrow Pacemaker: Chronic Inserted 10/2018 status post tachybradycardia syndrome Quit smoking 2017 Interrogation of pacer completed Paroxysmal A-fib: Chronic Continue metoprolol Eliquis held for EGD Digoxin changed to Wednesday only HFpEF: Chronic Entresto discontinued Hold torsemide for now Echo as above Monitor volume status Diabetes mellitus type 2: HbA1c 7.3 Takes glipizide; hold while inpatient Continue insulin while hospitalized Monitor BGs HLD: continue Lipitor DVT Px: Heparin SQ for now Resume Eliquis as able Code Status: Full Code Admission and Anticipated Discharge Date Admission Date: October 21, 2023 Subjective Patient is seen and examined at bedside Feels a lot better today Denies any chest pain, dyspnea at rest, nausea, vomiting, abdominal pain Dizziness improved No new complaints Review of Systems Review of Systems: All systems reviewed & are unremarkable except as noted in Subjective Physical Exam Physical Exam: Physical Exam: Vitals signs as noted above General Appearance:Obese, no apparent distress Head: normocephalic, Atraumatic Eyes: normal inspection, EOMI Neck: supple, Trachea midline Respiratory/Chest: Normal breath sounds, CTA, No accessory muscle use Cardiovascular: Irregularly irregular, + murmur. +Pacer Abdomen/GI:Soft, Non tender, Bowel sounds present Extremities/Musculoskeletal:normal inspection, 1+ pedal edema Neurologic/Psych:AAOX3, grossly no focal neurological deficits Skin: normal color, warm Results & Data Results & Data Vital Signs (Past 12 Hours) Vital Signs Temp Pulse Pulse Resp BP Pulse Ox O2 Del Method 10/24/23 11:34 36.5 C 61 17 95/55 L 97 Room Air 10/24/23 08:00 60 10/24/23 07:36 36.6 C 66 17 114/66 97 Room Air 10/24/23 03:00 36.6 C 81 18 128/74 91 Room Air Laboratory Results Short CBC 10/24/23 Range/Units 05:17 WBC 10.07 (4.8-10.8) K/ul Hgb 8.1 L (12.0-16.0) g/dl Hct 26.5 L (37.0-47.0) % Plt Count 239 (130-400) K/uL BMP 10/24/23 05:17 Sodium 141 Potassium 4.1 Chloride 107 Carbon Dioxide 27 BUN 26 H Creatinine 0.69 Glucose 82 Calcium 8.0 L (2) Coronary artery disease Associated angina: without angina Coronary Disease-Associated Artery/Lesion type: [place] artery [place] vs. transplanted heart: [place] heart Qualified Code(s): I25.10 - Atherosclerotic heart disease of [place] coronary artery without angina pectoris (7) Hypertension Hypertension type: essential hypertension Qualified Code(s): I10 - Essential (primary) hypertension
[2023-10-25] MEDS ORDERED: Nursing to Pharmacy Communication SCH ×2 (04:45→11:00)
[2023-10-25 06:14] LABS: Hematocrit (blood only) 28.2 % (37.0-47.0); Hemoglobin 8.6 g/dl (12.0-16.0); Mean Corpuscular Hemoglobin 26.9 pg (25.0-34.0); Mean Corpuscular Hgb Conc 30.5 g/dL (32.0-36.0); Mean Corpuscular Volume 88.1 fL (80.0-100.0); Mean Platelet Volume 9.8 fL (9.4-12.4); Platelet Count 264 K/uL (130-400); RDW Coefficient of Variation 14.4 % (11.5-14.5); RDW Standard Deviation 45.6 fL (36.4-46.3); White Blood Count 7.74 K/ul (4.8-10.8)
[2023-10-25] MEDS: INSULIN ASPART PER UNIT CHARGE SC SCH ×2 (06:25→12:25)
[2023-10-25 06:33] LABS: BUN Creatinine Ratio 21.1 (10-20); Calcium 8.4 mg/dl (8.6-10.3); Creatinine Clr Calc Pharmacy 73.3 ml/min; Est GFR (African American) 93.9 ml/min; Potassium 4.3 mmol/L (3.5-5.1)
--- NOTE | 2023-10-25 08:26 | Anesthesiology Consultation ---
Date of Service October 25, 2023 Assessment & Plan Consults Requested medical & cardiac Pulmonary History Surgery Operation Date: 10/25/23 16:30 Proposed Procedures p Esophagogastroduodenoscopy Dr Isaacs - Whitney Aranda MD Height/Weight Height: 5 ft 3 in Weight: 102 kg Allergies Allergy/AdvReac Type Severity Reaction Status Date / Time cetirizine AdvReac Intermediate Hallucinati Verified 10/21/23 12:45 ng hydroxyzine AdvReac Intermediate Hallucinati Verified 10/21/23 12:45 ng Medications Home Medications Medication Instructions Recorded Confirmed Last Taken apixaban 5 mg tablet (Eliquis) 5 mg PO AMHS 06/18/18 10/21/23 05/16/22 atorvastatin 40 mg tablet 40 mg PO QAM 06/18/18 10/21/23 05/16/22 insulin glargine 100 unit/mL (3 20 unit subcut BIDM 06/18/18 10/21/23 05/16/22 mL) subcutaneous pen (Lantus Solostar U-100 Insulin) metoprolol succinate 100 mg See Rx Instructions .Route .COMPLEX 06/18/18 10/21/23 05/16/22 tablet,extended release 24 hr multivitamin 1 tab PO QDL 06/18/18 10/21/23 05/16/22 nitroglycerin 0.4 mg sublingual 0.4 mg sublingual DIRECTED PRN 06/18/18 10/21/23 Unknown tablet (Nitrostat) Chest Pain oxybutynin chloride 5 mg tablet 5 mg PO BID 06/18/18 10/21/23 05/16/22 sacubitril 24 mg-valsartan 26 mg 0.5 tab PO AMHS 04/10/20 10/21/23 05/16/22 tablet (Entresto) glipizide 5 mg tablet 5 mg PO BIDM 04/11/20 10/21/23 05/16/22 acetaminophen 500 mg tablet 1,000 mg PO TID PRN PAIN/FEVER 05/18/22 10/21/23 Unknown (Tylenol Extra Strength) aspirin 81 mg tablet,delayed 81 mg PO QAM 05/18/22 10/21/23 05/16/22 release calcium carbonate 600 mg-vitamin 1 tab PO QDD 05/18/22 10/21/23 05/16/22 D3 10 mcg (400 unit) tablet (Calcium 600 + D(3)) cinnamon bark 500 mg capsule 500 mg PO QDD 05/18/22 10/21/23 05/16/22 (Cinnamon) loratadine 10 mg tablet (Claritin) 10 mg PO DAILY PRN Congestion 05/18/22 10/21/23 Unknown magnesium oxide 400 mg PO QDL 05/18/22 10/21/23 05/16/22 peg 400-propylene glycol (PF) 0.4 1 drp OPB DAILY PRN Dry Eyes 05/18/22 10/21/23 Unknown %-0.3 % eye drops in a dropperette (Systane (PF)) phenylephrine-acetaminophen 5 1 tab PO QID PRN Headache 05/18/22 10/21/23 Unknown mg-325 mg tablet (Tylenol Sinus Headache) digoxin 125 mcg (0.125 mg) tablet 0.125 mg PO HS #30 tabs 05/26/22 10/21/23 Unknown midodrine 5 mg tablet 5 mg PO TID #90 tabs 05/26/22 10/21/23 Unknown torsemide 20 mg tablet 20 mg PO QAM diuretic 10/21/23 10/21/23 Unknown Active Medications Generic Name Dose Route Start Last Admin Trade Name Freq PRN Reason Stop Dose Admin Apixaban 5 mg 10/21/23 21:00 10/22/23 11:32 Apixaban 5 Mg Tablet PO 11/20/23 20:59 5 mg AMHS KAYLA Administration Aspirin 81 mg 10/22/23 09:00 10/24/23 08:52 Aspirin 81 Mg Ectab PO 11/21/23 08:59 81 mg QAM KALYA Administration Atorvastatin Calcium 40 mg 10/22/23 09:00 10/24/23 08:51 Atorvastatin 40 Mg Tab PO 11/21/23 08:59 40 mg QAM KAYLA Administration Heparin Sodium (Porcine) 5,000 units 10/22/23 21:00 10/24/23 20:06 Heparin Sod 5,000 Unit/0.5 Ml Vial SQ 11/21/23 20:59 5,000 units Q12 KAYLA Administration Insulin Aspart 0 units 10/25/23 06:00 10/25/23 06:25 Insulin Aspart Per Unit Charge SC 11/24/23 05:59 Not Given Q6 [facility] Insulin Glargine 0 units 10/24/23 21:00 10/24/23 20:06 Lantus Per Unit Charge SQ 11/23/23 20:59 Not Given HS [facility] Protocol Metoprolol Succinate 100 mg 10/23/23 21:00 10/24/23 20:05 Metoprolol Succ 50mg Ext Rel Tab PO 11/22/23 20:59 100 mg BID KAYLA Administration Midodrine 5 mg 10/21/23 21:00 10/24/23 20:05 Midodrine Hcl 2.5 Mg Tab PO 11/20/23 20:59 5 mg TID KAYLA Administration Oxybutynin Chloride 5 mg 10/21/23 21:00 10/24/23 20:04 Oxybutynin Chloride 5 Mg Tab PO 11/20/23 20:59 5 mg BID KAYLA Administration Sacubitril/Valsartan 0.5 tab 10/21/23 21:00 10/22/23 08:30 Valsartan/Sacubitril 26/24mg Tab PO 11/20/23 20:59 0.5 tab AMHS KAYLA Administration Torsemide 20 mg 10/22/23 09:00 10/23/23 08:53 Torsemide 20 Mg Tab PO 11/21/23 08:59 Not Given QAM [facility] Past Medical History Medical History Pacemaker Dysphagia Postural dizziness with presyncope Diabetic polyneuropathy Orthostatic hypotension Atrial fibrillation with rapid ventricular response Chest pain Chest pain Acute on chronic diastolic (congestive) heart failure Ischemic cardiomyopathy Tachy-barbra syndrome admitted for elective pacemaker. Underwent procedure no complications; monitored overnight and discharged home. Chronic diastolic HF (heart failure) Paroxysmal A-fib on Eliquis Hx of supraventricular tachycardia Coronary artery disease "anterior [place] 11/10/17, LVEF 20-25%, PCI LAD with ISABEL" Hypertension Dyslipidemia DM type 2 (diabetes mellitus, type 2) Osteoarthritis Past Surgical History Surgical History Status post coronary artery stent placement "PCI LAD with ISABEL 11/10/17" History of cholecystectomy History of tonsillectomy History of right knee joint replacement History of appendectomy H/O ovarian cystectomy Social History Smoking Status: Former smoker tobacco type: cigarettes Do You Dip or Chew Tobacco: No Hx Alcohol Use: No alcohol intake frequency: holidays/special occasions only Hx Substance Use: No Physical Exam Vital Signs Last Vital Signs Temp 36.7 C 10/25/23 08:17 Pulse 70 10/25/23 08:17 Resp 16 10/25/23 08:17 BP 132/74 10/25/23 08:17 Pulse Ox 98 10/25/23 08:17 O2 Del Method Room Air 10/25/23 08:17 Testing Laboratory Results 10/25/23 05:33 10/25/23 05:33 Hemoglobin A1c 7.3 % (4.5-5.6) H 10/22/23 06:08 10/25/23 10/25/23 06:56 06:24 POC Glucose 117 H 112 H
--- NOTE | 2023-10-25 08:38 | History & Physical Report ---
Date of Service October 25, 2023 Assessment & Plan Admission and Anticipated Discharge Date Admission Date: October 21, 2023 History of Present Illness Primary Care Provider: Jason West MD dysphagia CV: RRR Resp: CTA Abd: soft A/p: EGD Allergies Allergy/AdvReac Type Severity Reaction Status Date / Time cetirizine AdvReac Intermediate Hallucinati Verified 10/21/23 12:45 ng hydroxyzine AdvReac Intermediate Hallucinati Verified 10/21/23 12:45 ng Home Medications Medication Instructions Recorded Confirmed Type apixaban 5 mg tablet (Eliquis) 5 mg PO AMHS 06/18/18 10/21/23 History atorvastatin 40 mg tablet 40 mg PO QAM 06/18/18 10/21/23 History insulin glargine 100 unit/mL (3 20 unit subcut BIDM 06/18/18 10/21/23 History mL) subcutaneous pen (Lantus Solostar U-100 Insulin) metoprolol succinate 100 mg See Rx Instructions .Route .COMPLEX 06/18/18 10/21/23 History tablet,extended release 24 hr multivitamin 1 tab PO QDL 06/18/18 10/21/23 History nitroglycerin 0.4 mg sublingual 0.4 mg sublingual DIRECTED PRN 06/18/18 10/21/23 History tablet (Nitrostat) Chest Pain oxybutynin chloride 5 mg tablet 5 mg PO BID 06/18/18 10/21/23 History sacubitril 24 mg-valsartan 26 mg 0.5 tab PO AMHS 04/10/20 10/21/23 History tablet (Entresto) glipizide 5 mg tablet 5 mg PO BIDM 04/11/20 10/21/23 History acetaminophen 500 mg tablet 1,000 mg PO TID PRN PAIN/FEVER 05/18/22 10/21/23 History (Tylenol Extra Strength) aspirin 81 mg tablet,delayed 81 mg PO QAM 05/18/22 10/21/23 History release calcium carbonate 600 mg-vitamin 1 tab PO QDD 05/18/22 10/21/23 History D3 10 mcg (400 unit) tablet (Calcium 600 + D(3)) cinnamon bark 500 mg capsule 500 mg PO QDD 05/18/22 10/21/23 History (Cinnamon) loratadine 10 mg tablet (Claritin) 10 mg PO DAILY PRN Congestion 05/18/22 10/21/23 History magnesium oxide 400 mg PO QDL 05/18/22 10/21/23 History peg 400-propylene glycol (PF) 0.4 1 drp OPB DAILY PRN Dry Eyes 05/18/22 10/21/23 History %-0.3 % eye drops in a dropperette (Systane (PF)) phenylephrine-acetaminophen 5 1 tab PO QID PRN Headache 05/18/22 10/21/23 History mg-325 mg tablet (Tylenol Sinus Headache) digoxin 125 mcg (0.125 mg) tablet 0.125 mg PO HS #30 tabs 05/26/22 10/21/23 Rx midodrine 5 mg tablet 5 mg PO TID #90 tabs 05/26/22 10/21/23 Rx torsemide 20 mg tablet 20 mg PO QAM diuretic 10/21/23 10/21/23 History Past Med/Surg History Medical History Pacemaker Dysphagia Postural dizziness with presyncope Diabetic polyneuropathy Orthostatic hypotension Atrial fibrillation with rapid ventricular response Chest pain Chest pain Acute on chronic diastolic (congestive) heart failure Ischemic cardiomyopathy Tachy-barbra syndrome admitted for elective pacemaker. Underwent procedure no complications; monitored overnight and discharged home. Chronic diastolic HF (heart failure) Paroxysmal A-fib on Eliquis Hx of supraventricular tachycardia Coronary artery disease "anterior [place] 11/10/17, LVEF 20-25%, PCI LAD with ISABEL" Hypertension Dyslipidemia DM type 2 (diabetes mellitus, type 2) Osteoarthritis Surgical History Status post coronary artery stent placement "PCI LAD with ISABEL 11/10/17" History of cholecystectomy History of tonsillectomy History of right knee joint replacement History of appendectomy H/O ovarian cystectomy Social History Smoking Status: Former smoker Second Hand Exposure: No; Do You Dip or Chew Tobacco: No; Hx Alcohol Use: No Hx Substance Use: No Preferred Language: [place] Communication Ability: Effective Visual Impairment: Limited Electric Lineman Required: No Beliefs That Will Affect Care: None marital status: / Current Living Situation: Alone Current Living Situation Comment: States she will be looking to move to assisted living Other Information That Helps Us Care for You: No Feels Safe at Home: Yes Safety Concerns: Feels Safe At This Time Assistive Devices: Cane and Walker Results & Data Results & Data Vital Signs (Past 12 Hours) Vital Signs Temp Pulse Pulse Resp BP Pulse Ox O2 Del Method 10/25/23 08:17 36.7 C 70 16 132/74 98 Room Air 10/25/23 08:01 61 10/25/23 07:13 36.5 C 87 18 137/70 99 Room Air 10/25/23 02:57 36.4 C L 66 18 115/67 99 Room Air 10/24/23 22:54 36.7 C 65 18 121/72 99 Room Air 10/24/23 22:34 75 10/24/23 20:45 Room Air Code Status & VTE Plan VTE Prophylaxis Plan VTE Prophylaxis will be ordered: Yes
--- NOTE | 2023-10-25 09:24 | GI REPORT ---
Patient Name: Ciara Baig Procedure Date: 10/25/2023 8:37 AM Date of : 1945 Admit Type: Inpatient Age: 78 Gender: Female Attending MD: Whitney Aranda MD, Procedure: Upper GI endoscopy Providers: Whitney Aranda MD Referring MD: Valerio Ken Md Indications: Dysphagia Medicines: See the Anesthesia note for documentation of the administered medications Complications: No immediate complications. Estimated Blood Loss: Estimated blood loss: none. Procedure: Pre-Anesthesia Assessment: - ASA Grade Assessment: III - A patient with severe systemic disease. After obtaining informed consent, the endoscope was passed under direct vision. Throughout the procedure, the patient's blood pressure, pulse, and oxygen saturations were monitored continuously. The Endoscope was introduced through the mouth, and advanced to the second part of duodenum. The upper GI endoscopy was accomplished without difficulty. The patient tolerated the procedure well. Findings: There was diminished motility in the body of the esophagus. The GE junction was at 40 cm. There was a non obstructing janneth circumferential mass 2 cm in length with central area of depression and advanced pit pattern by NBI. Edges were biopsied. The GE junction was mildly narrowed, but the scope and cap could easily be passed beyond the GE junction. There was marked edema of the cardia and fundus. The mass was not seen on retroflexion. The cardia was biopsied. There were a few erosions in the antrum, duodenal bulb, and second portion of the duodenum. The duodenum was otherwise normal. The stomach was biopsied due to the concern for Helicobacter. Impression: Non-obstructing GE junction mass. Her swallow study suggests dysphagia that appears more severe than endoscopic findings - she may have pseudoachalasia vs intermittent obstruction. Recommendation: - Discharge patient to floor. - Resume full liquids after d/w pt; follow for ssx aspiration. - Complete staging w/u, follow up pathology . - Discuss resumption of anticoagulation with primary service. Whitney Aranda M.D. Whitney Aranda MD 10/25/2023 9:23:20 AM This report has been signed electronically. Note Initiated On: 10/25/2023 8:37 AM Number of Addenda: 0 I attest to the content of the Intraoperative Record and orders documented therein, exceptions below {[id number]}
[2023-10-25] MEDS: ACETAMINOPHEN 325 MG TAB PO PRN (10:00)
[2023-10-25] MEDS: OPTIRAY 320 100ml IV ONE (10:05)
--- NOTE | 2023-10-25 10:34 | CT Scan Report ---
CT chest diagnostic w con CLINICAL HISTORY: r/o malignancy process TECHNIQUE: Multidetector row helical CT of the chest was performed with intravenous contrast. Coronal and sagittal reformations were obtained. Automated dose lowering techniques and/or adjustment accord ing to patient size were utilized for this exam. CT DOSE: 2256.15 mGy.cm Comparison: Comparison is made to 12/19/2018 FINDINGS: Lungs and pleura: Mild atelectasis is seen. Tree-in-bud nodularity is seen most prominently in the ri ght middle lobe and lingula. There is mild bronchiectasis. There is a 4 mm nodule in the right upper lobe (series 6 image 81), 4 mm nodule in the right upper lobe (image 99). There is a 6 mm nodule in t he left lower lobe (image 117) which previously measured 3 mm. Heart and pericardium: Cardiomegaly is seen with biatrial enlargement. Vessels: Severe atherosclerotic changes in the aorta and coronary arteries. No pulmonary edema. Mediastinum and iker: Unremarkable. Chest wall and lower neck: Small thyroid nodules are noted which do not require follow-up by ACR yvette valdez. Abdomen: Patient is status post cholecystectomy. Bones: Degenerative changes in the thoracic spine. IMPRESSION: 1. Tree in bud nodularity compatible with chronic infectious/inflammatory process such as atypical m ycobacterial infection. 2. A few pulmonary nodules are seen. There is enlargement of a 6 mm nodule in the left lower lobe fr om 2019. According to Fleischner criteria, CT chest should be performed at 6-12 months. In high-risk patients, a 18-24 month follow-up is recommended, in low-risk patients, this 18-24 month follow-up CT is optional. ACT 112: Negative or not required by law. Electronically signed by: Guille Gibbs M.D. 10/25/2023 10:31 AM
[2023-10-25] MEDS: PROPOFOL IV EMULSION 10 MG/ML 20 ML VIAL IV ONE ×2 (10:39→10:40)
[2023-10-25] MEDS: LIDOCAINE 2% 2 ML VIAL/AMP(20MG/ML) INFIL ONE (10:39)
--- NOTE | 2023-10-25 11:07 | CT Scan Report ---
CT abd pelvis IV con only CLINICAL HISTORY: esophageal mass; CT for staging TECHNIQUE: Helical axial images of the abdomen and pelvis were obtained and displayed. Automated dose lowering techniques and/or adjustment according to patient size were utilized for this exam. This e xam was performed with intravenous contrast. COMPARISON: None available at the time of this dictation. FINDINGS: Lower chest: For findings above the diaphragm, please see CT chest performed same day. Liver: Unremarkable. No focal lesions are seen. Gallbladder and biliary tree: Patient is status post cholecystectomy. Physiologic prominence of the b iliary ducts is noted. Pancreas: There is a 26 mm cystic lesion in the pancreatic head. Spleen: Unremarkable. Adrenals: Bilateral adrenal nodules are seen. Kidneys and ureters: Calcified exophytic right renal cyst is seen. Bladder: Limited evaluation due to underdistention. Reproductive organs: Unremarkable. Bowel: Thickening at the gastroesophageal junction is noted. Lymph nodes Retroperitoneal: Unremarkable. Pelvic: Subcentimeter lymph nodes are noted. Mesenteric: Unremarkable. Peritoneum: Normal. Vessels: Atherosclerotic calcifications are seen. Abdominal wall: Unremarkable. Bones: Right total hip arthroplasty is seen. IMPRESSION: 1. Thickening is noted at the gastroesophageal junction compatible with EGD findings. 2. Bilateral adrenal nodules are seen. These can be further evaluated by adrenal protocol CT or MRI if desired, metastasis may also be excluded by PET/CT. 3. Otherwise no evidence of metastatic disease. ACT 112: Negative or not required by law. Electronically signed by: Guille Gibbs M.D. 10/25/2023 11:05 AM
[2023-10-25] MEDS: LANTUS PER UNIT CHARGE SQ ONE (12:26)
--- NOTE | 2023-10-25 15:38 | Anesthesiology Progress Note ---
Date of Service October 25, 2023 Anesthesia Post Procedure Vital Signs Vital Signs: Temp Pulse Pulse Resp BP Pulse Ox O2 Del Method 10/25/23 15:06 63 10/25/23 14:39 36.5 C 62 19 123/49 L 99 Room Air 10/25/23 10:52 36.4 C L 61 19 144/60 H 99 Room Air 10/25/23 10:30 Room Air 10/25/23 10:28 63 16 137/62 100 Room Air 10/25/23 09:43 62 16 142/48 H 98 Room Air 10/25/23 09:30 64 16 124/44 L 99 Room Air 10/25/23 09:15 78 16 101/31 L 99 Room Air 10/25/23 08:17 36.7 C 70 16 132/74 98 Room Air 10/25/23 08:01 61 10/25/23 07:13 36.5 C 87 18 137/70 99 Room Air 10/25/23 02:57 36.4 C L 66 18 115/67 99 Room Air 10/24/23 22:54 36.7 C 65 18 121/72 99 Room Air 10/24/23 22:34 75 10/24/23 20:45 Room Air 10/24/23 19:48 36.7 C 65 18 123/70 99 Room Air 10/24/23 16:25 36.6 C 60 17 112/60 98 Room Air 10/24/23 16:13 59 L Transfer of Care Handoff Completed per policy Notes Mental Status: alert / awake / arousable and participated in evaluation Nausea / Vomiting: adequately controlled Pain: adequately controlled Airway Patency, RR, SpO2: stable & adequate BP & HR: stable & adequate Hydration State: stable & adequate Anesthetic Complications: no major complications apparent and Pt Satisfied with anesthetic care
[2023-10-25] MEDS: DIGOXIN 0.125 MG TAB PO SCH (16:08)
--- NOTE | 2023-10-25 16:45 | Hospitalist Progress Note ---
Date of Service October 25, 2023 Assessment & Plan (1) Midsternal chest pain: (2) Coronary artery disease: (3) Pacemaker: (4) Dysphagia: (5) Paroxysmal A-fib: (6) DM type 2 (diabetes mellitus, type 2): (7) Hypertension: (8) Dyslipidemia: Plan 78 y/o presents to the ED today with complaints of chest pain and SOB with a headache. Today, she was proceeding to her PCP office and was walking inside her home with her four-wheeled walker. She was able to get to her door but then 'slumped over' onto her couch. Her AUTUMN was with her and reports that the episode lasted 2-3 minutes prior to her being arousable. She does not recall the event happening. She reports that this feels different than other times that she has 'passed out'. She denies hitting her head. She also reports that over the past week she has lost 7 pounds and attributes this to dysphagia that she has been having over the past few weeks. She reports that every time she eats or drinks anything it feels as though something is 'stuck' in her throat and she complains of 'watery mucus' regurgitating. She denies any esophageal difficulties prior to this and denies having GERD. She has a PMH that includes CAD, HTN, HLD, AF (On Eliquis), diabetes mellitus type 2, HFpEF, overactive bladder. 05/23 patient did have a Lexiscan nuke scan with no ischemia in 2005 she had a catheterization with no obstruction noted. ISABEL to LAD 2018. No known history of DERRICK. No leukocytosis, LFTs normal, otherwise labs unremarkable. Troponin pending. Last A1c 03/08/2023 7.5. Patient denies tobacco, alcohol, or recreational drug use. Patient will be admitted for further evaluation of her syncope, chest pain and dysphagia. Syncope and Collapse: Likely secondary to orthostatic hypotension --CT Head:No acute intracranial abnormality. --ECHO: No significant change when compared to prior study. EF 60 to 65%. Mild concentric LVH. Basal septum is thickened and angulated consistent with sigmoid septum. Left atrium is severely dilated. Aortic valve sclerosis mild, without significant arctic valve stenosis. Mild tricuspid regurgitation. 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 Her swallow study suggests dysphagia that appears more severe than endoscopic findings - she may have pseudoachalasia vs intermittent obstruction. --Pathology pending --CT Chest:Tree in bud nodularity compatible with chronic infectious/inflammatory process such as atypical mycobacterial infection. A few pulmonary nodules are seen. There is enlargement of a 6 mm nodule in the left lower lobe from 2019 --CT ABD:Thickening is noted at the gastroesophageal junction compatible with EGD findings.. Bilateral adrenal nodules are seen. These can be further ev aluated by adrenal protocol CT or MRI if desired, metastasis may also be excluded by PET/CT. Otherwise no evidence of metastatic disease. --Video Swallow:No aspiration identified.Swallowing function appears to be within normal limits. However, there are multiple episodes of regurgitation of the swallowed barium contrast from the esophagus back into the hypopharynx throughout the examination. 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 Quit smoking 2017 Interrogation of pacer completed Paroxysmal A-fib: Chronic Continue metoprolol Eliquis held for EGD Digoxin changed to Wednesday only HFpEF: Chronic Entresto discontinued Hold torsemide for now Echo as above Monitor volume status Diabetes mellitus type 2: HbA1c 7.3 Takes glipizide; hold while inpatient Continue insulin while hospitalized Monitor BGs HLD: continue Lipitor DVT Px: Heparin SQ for now Resume Eliquis likely tmw Code Status: Full Code Admission and Anticipated Discharge Date Admission Date: October 21, 2023 Subjective Patient is seen and examined at bedside Patient overwhelmed with information regarding endoscopy this morning Reports headache earlier today which later improved Discussed with GI today Denies any chest pain, dyspnea at rest, nausea, vomiting, abdominal pain Review of Systems Review of Systems: All systems reviewed & are unremarkable except as noted in Subjective Physical Exam Physical Exam: Physical Exam: Vitals signs as noted above General Appearance:Obese, no apparent distress Head: normocephalic, Atraumatic Eyes: normal inspection, EOMI Neck: supple, Trachea midline Respiratory/Chest: Normal breath sounds, CTA, No accessory muscle use Cardiovascular: Irregularly irregular, + murmur. +Pacer Abdomen/GI:Soft, Non tender, Bowel sounds present Extremities/Musculoskeletal:normal inspection, 1+ pedal edema Neurologic/Psych:AAOX3, grossly no focal neurological deficits Skin: normal color, warm Results & Data Results & Data Vital Signs (Past 12 Hours) Vital Signs Temp Pulse Pulse Resp BP Pulse Ox O2 Del Method 10/25/23 16:08 63 10/25/23 15:06 63 10/25/23 14:39 36.5 C 62 19 123/49 L 99 Room Air 10/25/23 10:52 36.4 C L 61 19 144/60 H 99 Room Air 10/25/23 10:30 Room Air 10/25/23 10:28 63 16 137/62 100 Room Air 10/25/23 09:43 62 16 142/48 H 98 Room Air 10/25/23 09:30 64 16 124/44 L 99 Room Air 10/25/23 09:15 78 16 101/31 L 99 Room Air 10/25/23 08:17 36.7 C 70 16 132/74 98 Room Air 10/25/23 08:01 61 10/25/23 07:13 36.5 C 87 18 137/70 99 Room Air Laboratory Results Short CBC 10/25/23 Range/Units 05:33 WBC 7.74 (4.8-10.8) K/ul Hgb 8.6 L (12.0-16.0) g/dl Hct 28.2 L (37.0-47.0) % Plt Count 264 (130-400) K/uL BMP 10/25/23 05:33 Sodium 141 Potassium 4.3 Chloride 108 H Carbon Dioxide 27 BUN 15 Creatinine 0.71 Glucose 99 Calcium 8.4 L (2) Coronary artery disease Coronary Disease-Associated Artery/Lesion type: [place] artery [place] vs. transplanted heart: [place] heart Associated angina: without angina Qualified Code(s): I25.10 - Atherosclerotic heart disease of [place] coronary artery without angina pectoris (7) Hypertension Hypertension type: essential hypertension Qualified Code(s): I10 - Essential (primary) hypertension
--- NOTE | 2023-10-25 17:49 | Cardiology Progress Note ---
Date of Service October 25, 2023 Assessment & Plan (1) Syncope and collapse: (2) Orthostatic hypotension: (3) Pacemaker: (4) Atrial fibrillation with RVR: (5) Chronic diastolic HF (heart failure): (6) Atypical chest pain: Plan 78-year-old female admitted following syncopal episode, and atypical chest discomfort Intermittent hypotension and orthostasis observed. Pacemaker interrogation demonstrated appropriate function, well controlled rates. Resting echocardiography demonstrated preserved LV systolic function (stable/unchanged). No significant valvular pathology. Recommendations: 1. Continue to hold Torsemide. Will need lower dose on discharge. 2. Entresto discontinued this admission. 3. Digoxin decreased to only on MWF this admission 4. Metoprolol succinate decreased to 100 mg twice daily this admission. 4. Continue midodrine, aspirin, atorvastatin 5. Resume Eliquis post EGD when able Plan as already outlined above. Will continue to hold Entresto given symptomatic orthostasis, preserved LV systolic function. Admission and Anticipated Discharge Date Admission Date: October 21, 2023 Subjective Patient was seen and personally examined. No further chest pain or chest pressure symptoms. Underwent endoscopy earlier today with nonobstructing mass at GE junction of esophagus Blood pressures improved on reduction in medical therapy Hemodynamically stable Physical Exam Constitutional: well nourished and + morbidly obese; no acute distress Respiratory: no respiratory distress, no labored breathing and no retractions Auscultation: no crackles, no rales, no rhonchi and no wheezes Cardiovascular: Rate/Rhythm: + irregularly irregular Heart Sounds: normal S1, normal S2 and + murmur (1/6 systolic ejection murmur heard best at the right second intercostal spa) Vessels: no JVD and no carotid bruit Extremities: + edema (1+ bilateral pedal and pretibial edema.) Gastrointestinal (Abdomen): Inspection/Auscultation: abdomen normal to inspection and normal bowel sounds; abdomen not distended Percussion/Palpation: abdomen soft; abdomen nontender, no guarding and abdomen not rigid Neurologic: CN's II-XI intact bilaterally and moves all extremities; no focal motor deficits Results & Data Vital Signs (Past 12 Hours) Vital Signs Temp Pulse Pulse Resp BP Pulse Ox O2 Del Method 10/25/23 16:08 63 10/25/23 15:06 63 10/25/23 14:39 36.5 C 62 19 123/49 L 99 Room Air 10/25/23 10:52 36.4 C L 61 19 144/60 H 99 Room Air 10/25/23 10:30 Room Air 10/25/23 10:28 63 16 137/62 100 Room Air 10/25/23 09:43 62 16 142/48 H 98 Room Air 10/25/23 09:30 64 16 124/44 L 99 Room Air 10/25/23 09:15 78 16 101/31 L 99 Room Air 10/25/23 08:17 36.7 C 70 16 132/74 98 Room Air 10/25/23 08:01 61 10/25/23 07:13 36.5 C 87 18 137/70 99 Room Air
[2023-10-25] MEDS: LANTUS PER UNIT CHARGE SQ SCH (20:26)
[2023-10-26 07:06] LABS: Hematocrit (blood only) 28.9 % (37.0-47.0); Hemoglobin 8.7 g/dl (12.0-16.0); Mean Corpuscular Hemoglobin 26.6 pg (25.0-34.0); Mean Corpuscular Hgb Conc 30.1 g/dL (32.0-36.0); Mean Corpuscular Volume 88.4 fL (80.0-100.0); Mean Platelet Volume 9.5 fL (9.4-12.4); Platelet Count 286 K/uL (130-400); RDW Coefficient of Variation 14.4 % (11.5-14.5); RDW Standard Deviation 46.3 fL (36.4-46.3); Red Blood Count 3.27 M/uL (4.20-5.40); White Blood Count 7.74 K/ul (4.8-10.8)
[2023-10-26] MEDS: LANTUS PER UNIT CHARGE SQ SCH (08:30)
--- NOTE | 2023-10-26 08:43 | Pharmacy Report ---
Pharmacy Glycemic Short Note 2 - Date of Service October 26, 2023 - Glycemic Short BSG Results (Last 24 hours): 10/25/23 10/25/23 10/25/23 11:01 16:00 20:00 POC Glucose 122 H 185 H 156 H 10/26/23 07:43 POC Glucose 101 H OUTPATIENT ANTIDIABETIC REGIMEN: * Lantus 20 units SQ BIDM * glipizide 10mg PO BIDM HbA1c 7.3% (10/22/23) ASSESSMENT: 10/26/23: * Blood sugars remain reasonably well-controlled, somewhat elevated at dinner yesterday * Originally NPO yesterday for EGD, ordered diet afterwards * Received 22 units of insulin (10 units of basal and 12 units of prandial/correctional bolus) * Fasting blood sugar of 101 mg/dL this morning - do not anticipate any changes to regimen today 10/23 * Pt NPO last 2 days, yesterday had 15 units of insulin, all basal, blood sugars at goal, but patient does feel symptomatically low at 79mg/dl. Continue higher goal range. * Held AM Lantus, resumed at lunch when clear liquid diet resumed. * Will keep reduced dose of basal for today with PRN dose HS for BSG > 180mg/dl. 10/21 * Ciara is a 78 YOF admitted with chest pain/shortness of breath and a history of T2DM. Pharmacy has been consulted for glycemic management while inpatient. * Currently NPO per speech therapy recommendations after swallow eval, to be continued through the weekend for EGD on Wednesday. Fasting BSG this AM acceptable, continue current basal regimen (weight based stress of 1) and 50% home regimen. * No glycemic stressors noted at this time. * BSGs mostly within goal range, diet ordered for some time this morning potentially causing elevated lunchtime BSG today as no Novolog was administ ered. Continue NovoLog at a weight based stress of 2. PLAN FOR INPATIENT GLYCEMIC CONTROL: * Hold outpatient oral diabetes medications * Basal insulin * Lantus 10 units SC daily * Bolus insulin - slightly adjust top end of goal range from 160 to 150 mg/dL * NovoLog per scale ACHS or Q6hrs while NPO * Goal Range: Low 120 mg/dL - High 150 mg/dL * Correction Factor: 20 mg/dL/unit * Nutritional / Prandial insulin per carb ratio of 1 unit per 7 grams CHO consumed
--- NOTE | 2023-10-26 10:27 | Gastroenterology Progress Note ---
Date of Service October 26, 2023 Assessment & Plan (1) Mass of esophagus: Plan 1. May advance diet to pured 2. Will need outpatient PET scan and outpatient EUS. Our office will call to arrange. 3. If able to tolerate diet, no GI contraindication to discharge today. 4. GI will sign off. Please notify us if new questions/problems. Admission and Anticipated Discharge Date Admission Date: October 21, 2023 Subjective 78 yr old female admitted 10/21 for sycnope, anemia. EGD yesterday with a lower esophageal mass. CT chest abdomen pelvis without obvious metastasis. There was a lung nodule with recommendation for future surveillance. She feels well this morning. Able to swallow clear liquid diet without any dysphagia or odynophagia Review of Systems Review of Systems: ROS: Gen:+ weakness (improving), No fevers or weight loss Eyes: No eye redness, or pain, no recent vision changes Resp: No SOB, no cough Cardio: No palpitations/irregular beats, no chest pain GI: As per HPI otherwise negative : Denies pain on urination Skin: No jaundice, itching or new rashes Physical Exam Constitutional: WD/WN, vitals as above Eyes: PERRL, conjunctivae normal, anicteric sclerae ENMT: external ear and nose normal, oropharynx normal Neck: trachea midline, no thyromegaly Respiratory: normal respiratory effort, lungs clear to auscultation Cardiovascular: Rate/Rhythm: regular rate and regular rhythm trace bilat lower leg edema Gastrointestinal (Abdomen): normal bowel sounds, soft, nontender, no hepatosplenomegaly Skin: no rashes, warm and dry Psychiatric: A+Ox3, euthymic affect Lymphatic: no cervical or axillary lymphadenopathy Results & Data Vital Signs (Past 12 Hours) Vital Signs Temp Pulse Pulse Resp BP Pulse Ox O2 Del Method 10/26/23 08:00 Room Air 10/26/23 07:58 36.7 C 69 20 131/60 95 Room Air 10/26/23 07:47 60 10/26/23 02:59 36.8 C 66 18 125/73 97 Room Air 10/25/23 23:43 72 10/25/23 22:54 36.5 C 63 20 131/74 99 Room Air Laboratory Results 10/26/23 10/26/23 10/25/23 Range/Units 07:43 06:26 20:00 WBC 7.74 (4.8-10.8) K/ul RBC 3.27 L (4.20-5.40) M/uL Hgb 8.7 L (12.0-16.0) g/dl Hct 28.9 L (37.0-47.0) % MCV 88.4 (80.0-100.0) fL MCH 26.6 (25.0-34.0) pg MCHC 30.1 L (32.0-36.0) g/dL RDW Std Deviation 46.3 (36.4-46.3) fL RDW Coeff of [place] 14.4 (11.5-14.5) % Plt Count 286 (130-400) K/uL MPV 9.5 (9.4-12.4) fL POC Glucose 101 H 156 H (70-99) mg/dl Procalcitonin 0.03 (0-0.5) ng/ml 10/25/23 10/25/23 Range/Units 16:00 11:01 WBC (4.8-10.8) K/ul RBC (4.20-5.40) M/uL Hgb (12.0-16.0) g/dl Hct (37.0-47.0) % MCV (80.0-100.0) fL MCH (25.0-34.0) pg MCHC (32.0-36.0) g/dL RDW Std Deviation (36.4-46.3) fL RDW Coeff of [place] (11.5-14.5) % Plt Count (130-400) K/uL MPV (9.4-12.4) fL POC Glucose 185 H 122 H (70-99) mg/dl Procalcitonin (0-0.5) ng/ml Diagnostic Findings EGD 10/25/2023: Nonobstructing GE junction mass, few antral erosions, normal duodenum. Path is pending CTAP w IV 10/25/23: 1. Thickening is noted at the gastroesophageal junction compatible with EGD findings. 2. Bilateral adrenal nodules are seen. These can be further evaluated by adrenal protocol CT or MRI if desired, metastasis may also be excluded by PET/CT. 3. Otherwise no evidence of metastatic disease. CTA chest 3/25/24: 1. Tree in bud nodularity compatible with chronic infectious/inflammatory process such as atypical mycobacterial infection. 2. A few pulmonary nodules are seen. There is enlargement of a 6 mm nodule in the left lower lobe from 2019. According to Fleischner criteria, CT chest should be performed at 6-12 months. In high-risk patients, a 18-24 month follow-up is recommended, in low-risk patients, this 18-24 month follow-up CT is optional. Video swallow 10/22/23: 1. No aspiration identified. 2. Swallowing function appears to be within normal limits. However, there are multiple episodes of regurgitation of the swallowed barium contrast from the esophagus back into the hypopharynx throughout the examination. 3. Please see the speech pathologist report for detailed findings and recommendations.
--- NOTE | 2023-10-26 16:30 | Hospitalist Progress Note ---
Date of Service October 26, 2023 Assessment & Plan (1) Midsternal chest pain: (2) Coronary artery disease: (3) Pacemaker: (4) Dysphagia: (5) Paroxysmal A-fib: (6) DM type 2 (diabetes mellitus, type 2): (7) Hypertension: (8) Dyslipidemia: Plan 78 y/o presents to the ED today with complaints of chest pain and SOB with a headache. Today, she was proceeding to her PCP office and was walking inside her home with her four-wheeled walker. She was able to get to her door but then 'slumped over' onto her couch. Her AUTUMN was with her and reports that the episode lasted 2-3 minutes prior to her being arousable. She does not recall the event happening. She reports that this feels different than other times that she has 'passed out'. She denies hitting her head. She also reports that over the past week she has lost 7 pounds and attributes this to dysphagia that she has been having over the past few weeks. She reports that every time she eats or drinks anything it feels as though something is 'stuck' in her throat and she complains of 'watery mucus' regurgitating. She denies any esophageal difficulties prior to this and denies having GERD. She has a PMH that includes CAD, HTN, HLD, AF (On Eliquis), diabetes mellitus type 2, HFpEF, overactive bladder. 05/23 patient did have a Lexiscan nuke scan with no ischemia in 2005 she had a catheterization with no obstruction noted. ISABEL to LAD 2018. No known history of DERRICK. No leukocytosis, LFTs normal, otherwise labs unremarkable. Troponin pending. Last A1c 03/08/2023 7.5. Patient denies tobacco, alcohol, or recreational drug use. Patient will be admitted for further evaluation of her syncope, chest pain and dysphagia. Syncope and Collapse: Likely secondary to orthostatic hypotension --CT Head:No acute intracranial abnormality. --ECHO: No significant change when compared to prior study. EF 60 to 65%. Mild concentric LVH. Basal septum is thickened and angulated consistent with sigmoid septum. Left atrium is severely dilated. Aortic valve sclerosis mild, without significant arctic valve stenosis. Mild tricuspid regurgitation. Findings not suggestive of pulmonary hypertension -Pacemaker interrogation showed normal function per cardiology Monitor on telemetry for any arrhythmias Orthostatics significantly positive Entresto discontinued Hold torsemide for now Digoxin changed to every alternate day Received IV fluids Continue midodrine Continue metoprolol decreased to 100 mg twice daily Compression stockings ordered Appreciate cardiology input Continue to hold diuretics, Entresto for now Will need adjustment of medications on discharge Dysphagia--POA Secondary to GE junction mass--likely malignancy--POA -S/P EGD: Non-obstructing GE junction mass. Her swallow study suggests dysphagia that appears more severe than endoscopic findings - she may have pseudoachalasia vs intermittent obstruction. --Pathology pending --CT Chest:Tree in bud nodularity compatible with chronic infectious/inflammatory process such as atypical mycobacterial infection. A few pulmonary nodules are seen. There is enlargement of a 6 mm nodule in the left lower lobe from 2019 --CT ABD:Thickening is noted at the gastroesophageal junction compatible with EGD findings.. Bilateral adrenal nodules are seen. These can be further evaluated by adrenal protocol CT or MRI if desired, metastasis may also be excluded by PET/CT. Otherwise no evidence of metastatic disease. --Video Swallow:No aspiration identified.Swallowing function appears to be within normal limits. However, there are multiple episodes of regurgitation of the swallowed barium contrast from the esophagus back into the hypopharynx throughout the examination. -Appreciate GI help--can resume Eliquis likely tomorrow Speech therapy following Aspiration Precautions Will need follow-up with oncology on discharge Advance to a pured diet today Will need outpatient PET scan, endoscopic ultrasound Atypical Chest pain: Secondary to dysphagia H/O CAD S/P ISABEL to LAD 2017 Troponin Negative Normal left ventricle wall motion on echo Continue aspirin, Lipitor, metoprolol Chest pain resolved Pulm nodules Incidental finding on CT Needs follow-up as outpatient Pacemaker: Chronic Inserted 10/2018 status post tachybradycardia syndrome Quit smoking 2017 Interrogation of pacer completed Paroxysmal A-fib: Chronic Continue metoprolol Digoxin changed to Wednesday only Eliquis resume HFpEF: Chronic Entresto discontinued Hold torsemide for now Echo as above Monitor volume status Diabetes mellitus type 2: HbA1c 7.3 Takes glipizide; hold while inpatient Continue insulin while hospitalized Monitor BGs HLD: continue Lipitor DVT Px: Eliquis Code Status: Full Code Admission and Anticipated Discharge Date Admission Date: October 21, 2023 Subjective Patient is seen and examined at bedside Tolerating full liquid diet Sitting in chair during my encounter Offers no new complaints Denies any chest pain, dyspnea at rest, nausea, vomiting, abdominal pain No other complaints Review of Systems Review of Systems: All systems reviewed & are unremarkable except as noted in Subjective Physical Exam Physical Exam: Physical Exam: Vitals signs as noted above General Appearance:Obese, no apparent distress Head: normocephalic, Atraumatic Eyes: normal inspection, EOMI Neck: supple, Trachea midline Respiratory/Chest: Normal breath sounds, CTA, No accessory muscle use Cardiovascular: Irregularly irregular, + murmur. +Pacer Abdomen/GI:Soft, Non tender, Bowel sounds present Extremities/Musculoskeletal:normal inspection, 1+ pedal edema Neurologic/Psych:AAOX3, grossly no focal neurological deficits Skin: normal color, warm Results & Data Results & Data Vital Signs (Past 12 Hours) Vital Signs Temp Pulse Pulse Resp BP Pulse Ox O2 Del Method 10/26/23 14:58 61 10/26/23 11:00 36.9 C 74 18 125/77 97 Room Air 10/26/23 08:00 Room Air 10/26/23 07:58 36.7 C 69 20 131/60 95 Room Air 10/26/23 07:47 60 Laboratory Results Short CBC 10/26/23 Range/Units 06:26 WBC 7.74 (4.8-10.8) K/ul Hgb 8.7 L (12.0-16.0) g/dl Hct 28.9 L (37.0-47.0) % Plt Count 286 (130-400) K/uL (2) Coronary artery disease Coronary Disease-Associated Artery/Lesion type: [place] artery [place] vs. transplanted heart: [place] heart Associated angina: without angina Qualified Code(s): I25.10 - Atherosclerotic heart disease of [place] coronary artery without angina pectoris (7) Hypertension Hypertension type: essential hypertension Qualified Code(s): I10 - Essential (primary) hypertension
[2023-10-26] MEDS: POLYETHYLENE (MIRALAX) 17 GM PACK PO PRN (20:15)
--- NOTE | 2023-10-27 12:39 | Hospitalist Progress Note ---
Date of Service October 27, 2023 Assessment & Plan (1) Midsternal chest pain: (2) Coronary artery disease: (3) Pacemaker: (4) Dysphagia: (5) Paroxysmal A-fib: (6) DM type 2 (diabetes mellitus, type 2): (7) Hypertension: (8) Dyslipidemia: Plan 78 y/o presents to the ED today with complaints of chest pain and SOB with a headache. Today, she was proceeding to her PCP office and was walking inside her home with her four-wheeled walker. She was able to get to her door but then 'slumped over' onto her couch. Her AUTUMN was with her and reports that the episode lasted 2-3 minutes prior to her being arousable. She does not recall the event happening. She reports that this feels different than other times that she has 'passed out'. She denies hitting her head. She also reports that over the past week she has lost 7 pounds and attributes this to dysphagia that she has been having over the past few weeks. She reports that every time she eats or drinks anything it feels as though something is 'stuck' in her throat and she complains of 'watery mucus' regurgitating. She denies any esophageal difficulties prior to this and denies having GERD. She has a PMH that includes CAD, HTN, HLD, AF (On Eliquis), diabetes mellitus type 2, HFpEF, overactive bladder. 05/23 patient did have a Lexiscan nuke scan with no ischemia in 2005 she had a catheterization with no obstruction noted. ISABEL to LAD 2018. No known history of DERRICK. No leukocytosis, LFTs normal, otherwise labs unremarkable. Troponin pending. Last A1c 03/08/2023 7.5. Patient denies tobacco, alcohol, or recreational drug use. Patient will be admitted for further evaluation of her syncope, chest pain and dysphagia. Syncope and Collapse: Likely secondary to orthostatic hypotension --CT Head:No acute intracranial abnormality. --ECHO: No significant change when compared to prior study. EF 60 to 65%. Mild concentric LVH. Basal septum is thickened and angulated consistent with sigmoid septum. Left atrium is severely dilated. Aortic valve sclerosis mild, without significant arctic valve stenosis. Mild tricuspid regurgitation. 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 Her swallow study suggests dysphagia that appears more severe than endoscopic findings - she may have pseudoachalasia vs intermittent obstruction. --Pathology pending --CT Chest:Tree in bud nodularity compatible with chronic infectious/inflammatory process such as atypical mycobacterial infection. A few pulmonary nodules are seen. There is enlargement of a 6 mm nodule in the left lower lobe from 2019 --CT ABD:Thickening is noted at the gastroesophageal junction compatible with EGD findings.. Bilateral adrenal nodules are seen. These can be further evaluated by adrenal protocol CT or MRI if desired, metastasis may also be excluded by PET/CT. Otherwise no evidence of metastatic disease. --Video Swallow:No aspiration identified.Swallowing function appears to be within normal limits. However, there are multiple episodes of regurgitation of the swallowed barium contrast from the esophagus back into the hypopharynx throughout the examination. -Appreciate GI help--can resume Eliquis likely tomorrow Speech therapy following Aspiration Precautions Will need follow-up with oncology on discharge currently on pured diet Will need outpatient PET scan, endoscopic ultrasound Atypical Chest pain: Secondary to dysphagia H/O CAD S/P ISABEL to LAD 2017 Troponin Negative Normal left ventricle wall motion on echo Continue aspirin, Lipitor, metoprolol Chest pain resolved Pulm nodules Incidental finding on CT Needs follow-up as outpatient Pacemaker: Chronic Inserted 10/2018 status post tachybradycardia syndrome Quit smoking 2017 Interrogation of pacer completed Paroxysmal A-fib: Chronic Continue metoprolol Digoxin changed to Wednesday only Eliquis resume HFpEF: Chronic Entresto discontinued Hold torsemide for now Echo as above Monitor volume status Diabetes mellitus type 2: HbA1c 7.3 Takes glipizide; hold while inpatient Continue insulin while hospitalized Monitor BGs HLD: continue Lipitor DVT Px: Eliquis Code Status: Full Code Disposition Home with home health Admission and Anticipated Discharge Date Admission Date: October 21, 2023 Subjective Patient is seen and examined at bedside States feeling a lot better today No new complaints Tolerating current diet Denies any chest pain, dyspnea at rest, nausea, vomiting, abdominal pain Plan to be discharged home today Review of Systems Review of Systems: All systems reviewed & are unremarkable except as noted in Subjective Physical Exam Physical Exam: Physical Exam: Vitals signs as noted above General Appearance:Obese, no apparent distress Head: normocephalic, Atraumatic Eyes: normal inspection, EOMI Neck: supple, Trachea midline Respiratory/Chest: Normal breath sounds, CTA, No accessory muscle use Cardiovascular: Irregularly irregular, + murmur. +Pacer Abdomen/GI:Soft, Non tender, Bowel sounds present Extremities/Musculoskeletal:normal inspection, 1+ pedal edema Neurologic/Psych:AAOX3, grossly no focal neurological deficits Skin: normal color, warm Results & Data Results & Data Vital Signs (Past 12 Hours) Vital Signs Temp Pulse Pulse Resp BP Pulse Ox O2 Del Method 10/27/23 10:57 36.7 C 59 L 19 131/72 97 Room Air 10/27/23 08:00 61 10/27/23 07:21 36.4 C L 65 16 115/59 L 98 Room Air 10/27/23 02:53 36.5 C 66 16 147/79 H 98 Room Air (2) Coronary artery disease Associated angina: without angina Coronary Disease-Associated Artery/Lesion type: [place] artery [place] vs. transplanted heart: [place] heart Qualified Code(s): I25.10 - Atherosclerotic heart disease of [place] coronary artery without angina pectoris (7) Hypertension Hypertension type: essential hypertension Qualified Code(s): I10 - Essential (primary) hypertension
--- NOTE | 2023-10-27 13:36 | Discharge Summary ---
Date of Service October 27, 2023 Admission HPI Per Admitting Provider Chief Complaint: chest pain/dysphagia Primary Care Provider: Jason West MD Ms. Baig is a 78 year old that presents to the ED today with complaints of chest pain and SOB with a headache. Today, she was proceeding to her PCP office and was walking inside her home with her four-wheeled walker. She was able to get to her door but then 'slumped over' onto her couch. Her AUTUMN was with her and reports that the episode lasted 2-3 minutes prior to her being arousable. She does not recall the event happening. She reports that this feels different than other times that she has 'passed out'. She denies hitting her head. She reports taking 2 SL Nitro over the past week with relief. She also reports that over the past week she has lost 7 pounds and attributes this to dysphagia that she has been having over the past few weeks. She reports that every time she eats or drinks anything it feels as though something is 'stuck' in her throat and she complains of 'watery mucus' regurgitating. She denies any esophageal difficulties prior to this and denies having GERD. She has a PMH that includes CAD, HTN, HLD, AF (On Eliquis), diabetes mellitus type 2, HFpEF, overactive bladder. 05/23 patient did have a Lexiscan nuke scan with no ischemia in 2004 she had a catheterization with no obstruction noted. ISABEL to LAD 2018. No known history of DERRICK. No leukocytosis, LFTs normal, otherwise labs unremarkable. Troponin pending. Last A1c 03/08/2023 7.5. Patient denies tobacco, alcohol, or recreational drug use. ECG today with V paced rhythm and slightly prolonged QTc. Comparison of ECG from 05/23 where she had AF RVR. Patient will be admitted for further evaluation of her syncope, chest pain and dysphagia. Will review interrogation of pacer for any additional arrhythmia, consider orthostatic BP versus vasovagal versus neurologic origin. Heart monitor for any arrhythmic changes, trend troponin. Will check Orthostatic BP as patient remains on Midodrine. Due to LOC, will obtain head CT. Patient expressing dysphagia; will ask GI and ST to weight in with concerns of dysphagia vs regurgitation. Admission Exam Per Admitting Provider Neuro: AAOx4, PERRLA, no aphagia, memory changes, CNII-XII grossly intact HEENT: head normocephalic, atraumatic moist mucus membranes CV: S1/S2, (-) M/G/R, (-) edema, cap refill < 3 seconds Resp: Lungs CTA in all delarosa. On RA GI: Abdomen S/NT/ND, Ax4 bowel sounds, (-) CVA tenderness Musculoskeletal: 5/5 B/L UE strength, 5/5 B/L LE strength. No gait disturbance Skin: (-) rashes , (-) erythema, (-) Petechiae. Psych: euthymic mood Principal Diagnosis Gastrointestinal adenocarcinoma Syncope and Collapse Pulmonary nodule H.Pylori Infection Discharge Data Allergies Allergy/AdvReac Type Severity Reaction Status Date / Time cetirizine AdvReac Intermediate Hallucinati Verified 10/21/23 12:45 ng hydroxyzine AdvReac Intermediate Hallucinati Verified 10/21/23 12:45 ng Consultations 10/21/23 13:02 ED Decision to Admit Stat 10/21/23 13:51 Consult Gastroenterology Routine 10/21/23 13:54 Consult Cardiology Routine Procedures Performed Operation Date: 10/25/23 16:30 Actual Procedures p EGD Biopsy Cytology - Whitney Aranda MD Laboratory Results WBC 7.74 K/ul (4.8-10.8) 10/26/23 06: RBC 3.27 M/uL (4.20-5.40) L 10/26/23 06:26 Hgb 8.7 g/dl (12.0-16.0) L 10/26/23 06:26 Hct 28.9 % (37.0-47.0) L 10/26/23 06:26 MCV 88.4 fL (80.0-100.0) 10/26/23 06:26 MCH 26.6 pg (25.0-34.0) 10/26/23 06: MCHC 30.1 g/dL (32.0-36.0) L 10/26/23 06:26 RDW Std Deviation 46.3 fL (36.4-46.3) 10/26/23 06:26 RDW Coeff of [place] 14.4 % (11.5-14.5) 10/26/23 06:26 Plt Count 286 K/uL (130-400) 10/26/23 06: MPV 9.5 fL (9.4-12.4) 10/26/23 06: Immature Gran % (Auto) 0.5 % 10/21/23 11:33 Neut % (Auto) 75.2 % 10/21/23 11:33 Lymph % (Auto) 15.6 % 10/21/23 11:33 [place] % (Auto) 7.3 % 10/21/23 11:33 Eos % (Auto) 0.9 % 10/21/23 11:33 Baso % (Auto) 0.5 % 10/21/23 11:33 Neut # (Auto) 8.12 K/uL (1.40-6.50) H 10/21/23 11:33 Lymph # (Auto) 1.69 K/uL (1.20-3.40) 10/21/23 11:33 [place] # (Auto) 0.79 K/uL (0.11-0.59) H 10/21/23 11:33 Eos # (Auto) 0.10 K/uL (0.00-0.50) 10/21/23 11:33 Baso # (Auto) 0.05 K/uL (0.00-0.20) 10/21/23 11:33 Immature Gran # (Auto) 0.05 K/uL (0.01-0.20) 10/21/23 11:33 Sodium 141 mmol/L (136-145) 10/25/23 05:33 Potassium 4.3 mmol/L (3.5-5.1) 10/25/23 05:33 Chloride 108 mmol/L (98-107) H 10/25/23 05:33 Carbon Dioxide 27 mmol/L (21-32) 10/25/23 05:33 Anion Gap 6 (3-11) 10/25/23 05:33 BUN 15 mg/dl (6-23) 10/25/23 05:33 Creatinine 0.71 mg/dl (0.6-1.2) 10/25/23 05:33 Est Cr Clr Drug Dosing 73.3 ml/min 10/25/23 05:33 Est GFR ( Amer) 93.9 ml/min 10/25/23 05:33 Est GFR (Non-Af Amer) 81.0 ml/min 10/25/23 05:33 BUN/Creatinine Ratio 21.1 (10-20) H 10/25/23 05:33 Glucose 99 mg/dl (70-99(Fasting)) 10/25/23 05:33 POC Glucose 140 mg/dl (70-99) H 10/27/23 11:31 Estimat Average Glucose 163 mg/dl 10/22/23 06:08 Hemoglobin A1c 7.3 % (4.5-5.6) H 10/22/23 06:08 Calcium 8.4 mg/dl (8.6-10.3) L 10/25/23 05:33 Magnesium 1.9 mg/dl (1.7-2.4) 10/23/23 06:45 Total Bilirubin 0.5 mg/dl (0.2-1.0) 10/22/23 06:08 AST 15 U/L (13-39) 10/22/23 06:08 ALT 10 U/L (7-52) 10/22/23 06:08 Alkaline Phosphatase 57 U/L (34-104) 10/22/23 06:08 Troponin I High Sens 11.0 pg/ml (0-14) 10/22/23 06:08 Total Protein 6.1 gm/dl (6.0-8.3) 10/22/23 06:08 Albumin 3.2 gm/dl (3.4-5.0) L 10/22/23 06:08 Globulin 2.9 gm/dl (2.5-4.0) 10/22/23 06:08 Albumin/Globulin Ratio 1.1 (0.9-2) 10/22/23 06:08 Triglycerides 147 mg/dl (0-150) 10/22/23 06:08 Cholesterol 86 mg/dl (0-200) 10/22/23 06:08 LDL Cholesterol, Calc 31 mg/dl 10/22/23 06:08 VLDL Cholesterol, Calc 29 mg/dl (0-30) 10/22/23 06:08 HDL Cholesterol 26 mg/dl 10/22/23 06:08 Cholesterol/HDL Ratio 3.3 (0-5) 10/22/23 06:08 Lipase 44 U/L (11-82) 10/21/23 11:33 Procalcitonin 0.03 ng/ml (0-0.5) 10/26/23 06:26 TSH 0.852 uIu/ml (0.300-4.500) 10/21/23 11:33 Digoxin 1.3 ng/ml (0.8-2.0) 10/21/23 14:02 Impressions Chest X-Ray 10/21/23 11:00 XR chest 1V portable HISTORY: Chest pain, nonspecific COMPARISON: Chest 05/18/2022. FINDINGS: Mild elevation of the right hemidiaphragm, unchanged. The cardiac silhouette remains mildly enlarged. Left-sided pacemaker again noted. Postoperative and degenerative changes within the right shoulder. Prior cholecystectomy. Stable bilateral hilar prominence and mild chronic interstitial thickening. No new focal lung consolidations to suggest pneumonia. No evidence for pulmonary edema. IMPRESSION: No significant change compared to the prior study. No acute process. ACT 112: Negative or not required by law. Electronically signed by: Zeyad Escalera M.D. 10/21/2023 11:[address] 10/21/23 16:52 CT head/brain wo/w con CT DOSE: 1094.1 mGy.cm CLINICAL HISTORY: syncope TECHNIQUE: Multiaxial CT images of the head were performed both before and after the intravenous administration of contrast. A dose lowering technique was utilized adhering to the principles of ALARA. COMPARISON STUDY: Head CT 05/18/2022. FINDINGS: The paranasal sinuses and mastoid air cells are clear. The calvarium and skull base are intact. The ventricles and sulci demonstrate mild age-related involutional changes. There is no mass, hematoma, midline shift, acute infarct. Postcontrast sequences show no areas of abnormal enhancement. IMPRESSION: No acute intracranial abnormality. ACT 112: Negative or not required by law. Electronically signed by: Zeyad Escalera M.D. 10/21/2023 6:20 PM Videofluoroscopic Swallow 10/22/23 09:52 FL video swallow HISTORY: dysphagia TECHNIQUE: Video fluoroscopic evaluation of swallowing was performed in the AP and lateral projections by the speech pathology staff. The patient is fed nectar-thick and thin liquid barium, and barium pudding. FLUOROSCOPY TIME: 1 minute and 10 seconds.. Ka,r: 10.5 mGy COMPARISON STUDY: None. FINDINGS: There is normal hyoid excursion and epiglottic deflection. Difficult study to interpret as there is significant motion throughout the examination. There is moderate cricopharyngeal dysfunction identified. Swallowing function appears to be within normal limits. However, there are multiple episodes of regurgitation of the swallowed barium contrast from the esophagus into the hypopharynx. IMPRESSION: 1. No aspiration identified. 2. Swallowing function appears to be within normal limits. However, there are multiple episodes of regurgitation of the swallowed barium contrast from the esophagus back into the hypopharynx throughout the examination. 3. Please see the speech pathologist report for detailed findings and recommendations. ACT 112: Negative or not required by law. Electronically signed by: Zeyad Escalera M.D. 10/22/2023 11:[address] 10/25/23 09:54 CT chest diagnostic w con CLINICAL HISTORY: r/o malignancy process TECHNIQUE: Multidetector row helical CT of the chest was performed with intravenous contrast. Coronal and sagittal reformations were obtained. Automated dose lowering techniques and/or adjustment according to patient size were utilized for this exam. CT DOSE: 2256.15 mGy.cm Comparison: Comparison is made to 12/19/2018 FINDINGS: Lungs and pleura: Mild atelectasis is seen. Tree-in-bud nodularity is seen most prominently in the right middle lobe and lingula. There is mild bronchiectasis. There is a 4 mm nodule in the right upper lobe (series 6 image 81), 4 mm nodule in the right upper lobe (image 99). There is a 6 mm nodule in the left lower lobe (image 117) which previously measured 3 mm. Heart and pericardium: Cardiomegaly is seen with biatrial enlargement. Vessels: Severe atherosclerotic changes in the aorta and coronary arteries. No pulmonary edema. Mediastinum and iker: Unremarkable. Chest wall and lower neck: Small thyroid nodules are noted which do not require follow-up by ACR criteria. Abdomen: Patient is status post cholecystectomy. Bones: Degenerative changes in the thoracic spine. IMPRESSION: 1. Tree in bud nodularity compatible with chronic infectious/inflammatory process such as atypical mycobacterial infection. 2. A few pulmonary nodules are seen. There is enlargement of a 6 mm nodule in the left lower lobe from 2019. According to Fleischner criteria, CT chest should be performed at 6-12 months. In high-risk patients, a 18-24 month follow-up is recommended, in low-risk patients, this 18-24 month follow-up CT is optional. ACT 112: Negative or not required by law. Electronically signed by: Guille Gibbs M.D. 10/25/2023 10:31 AM Abdomen/Pelvis CT 10/25/23 10:04 CT abd pelvis IV con only CLINICAL HISTORY: esophageal mass; CT for staging TECHNIQUE: Helical axial images of the abdomen and pelvis were obtained and displayed. Automated dose lowering techniques and/or adjustment according to patient size were utilized for this exam. This exam was performed with intravenous contrast. COMPARISON: None available at the time of this dictation. FINDINGS: Lower chest: For findings above the diaphragm, please see CT chest performed same day. Liver: Unremarkable. No focal lesions are seen. Gallbladder and biliary tree: Patient is status post cholecystectomy. Physiologic prominence of the biliary ducts is noted. Pancreas: There is a 26 mm cystic lesion in the pancreatic head. Spleen: Unremarkable. Adrenals: Bilateral adrenal nodules are seen. Kidneys and ureters: Calcified exophytic right renal cyst is seen. Bladder: Limited evaluation due to underdistention. Reproductive organs: Unremarkable. Bowel: Thickening at the gastroesophageal junction is noted. Lymph nodes Retroperitoneal: Unremarkable. Pelvic: Subcentimeter lymph nodes are noted. Mesenteric: Unremarkable. Peritoneum: Normal. Vessels: Atherosclerotic calcifications are seen. Abdominal wall: Unremarkable. Bones: Right total hip arthroplasty is seen. IMPRESSION: 1. Thickening is noted at the gastroesophageal junction compatible with EGD findings. 2. Bilateral adrenal nodules are seen. These can be further evaluated by adrenal protocol CT or MRI if desired, metastasis may also be excluded by PET/CT. 3. Otherwise no evidence of metastatic disease. ACT 112: Negative or not required by law. Electronically signed by: Guille Gibbs M.D. 10/25/2023 11:05 AM Ordered Studies 10/21/23 16:52 CT head/brain wo/w con Routine 10/22/23 09:52 FL video swallow Routine 10/25/23 09:54 CT chest diagnostic w con Routine 10/25/23 10:04 CT abd pelvis IV con only Routine Hospital Course (1) Midsternal chest pain: (2) Coronary artery disease: (3) Pacemaker: (4) Dysphagia: (5) Paroxysmal A-fib: (6) DM type 2 (diabetes mellitus, type 2): (7) Hypertension: (8) Dyslipidemia: Plan 78 y/o presents to the ED today with complaints of chest pain and SOB with a headache. Today, she was proceeding to her PCP office and was walking inside her home with her four-wheeled walker. She was able to get to her door but then 'slumped over' onto her couch. Her AUTUMN was with her and reports that the episode lasted 2-3 minutes prior to her being arousable. She does not recall the event happening. She reports that this feels different than other times that she has 'passed out'. She denies hitting her head. She also reports that over the past week she has lost 7 pounds and attributes this to dysphagia that she has been having over the past few weeks. She reports that every time she eats or drinks anything it feels as though something is 'stuck' in her throat and she complains of 'watery mucus' regurgitating. She denies any esophageal difficulties prior to this and denies having GERD. She has a PMH that includes CAD, HTN, HLD, AF (On Eliquis), diabetes mellitus type 2, HFpEF, overactive bladder. 05/23 patient did have a Lexiscan nuke scan with no ischemia in 2004 she had a catheterization with no obstruction noted. ISABEL to LAD 2018. No known history of DERRICK. No leukocytosis, LFTs normal, otherwise labs unremarkable. Troponin pending. Last A1c 03/08/2023 7.5. Patient denies tobacco, alcohol, or recreational drug use. Patient will be admitted for further evaluation of her syncope, chest pain and dysphagia. Syncope and Collapse: Likely secondary to orthostatic hypotension --CT Head:No acute intracranial abnormality. --ECHO: No significant change when compared to prior study. EF 60 to 65%. Mild concentric LVH. Basal septum is thickened and angulated consistent with sigmoid septum. Left atrium is severely dilated. Aortic valve sclerosis mild, without significant arctic valve stenosis. Mild tricuspid regurgitation. 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 Her swallow study suggests dysphagia that appears more severe than endoscopic findings - she may have pseudoachalasia vs intermittent obstruction. --Pathology pending --CT Chest:Tree in bud nodularity compatible with chronic infectious/inflammatory process such as atypical mycobacterial infection. A few pulmonary nodules are seen. There is enlargement of a 6 mm nodule in the left lower lobe from 2019 --CT ABD:Thickening is noted at the gastroesophageal junction compatible with EGD findings.. Bilateral adrenal nodules are seen. These can be further evaluated by adrenal protocol CT or MRI if desired, metastasis may also be excluded by PET/CT. Otherwise no evidence of metastatic disease. --Video Swallow:No aspiration identified.Swallowing function appears to be within normal limits. However, there are multiple episodes of regurgitation of the swallowed barium contrast from the esophagus back into the hypopharynx t hroughout the examination. 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 Quit smoking 2017 Interrogation of pacer completed Paroxysmal A-fib: Chronic Continue metoprolol Digoxin changed to Wednesday only Eliquis resume HFpEF: Chronic Entresto discontinued Hold torsemide for now Echo as above Monitor volume status Diabetes mellitus type 2: HbA1c 7.3 Takes glipizide; hold while inpatient Continue insulin while hospitalized Monitor BGs HLD: continue Lipitor DVT Px: Eliquis Code Status: Full Code Disposition Home with home health Total Time Total Time Spent Total Time Spent (In Minutes): 59 minutes Discharge Plan Discharge Items Patient Disposition: Home - Home Health Services Reason For Visit: CHEST PAIN Discharge Diagnosis: Gastrointestinal adenocarcinoma Syncope and Collapse Pulmonary nodule H.Pylori Infection Activity: Per Instructions section Exercise/Sports: Wait until after follow-up appointment Non-emergency contact: Primary Care Provider, [employer] Builder and Oncologist Call non-emergency contact if: you have any medication questions, your symptoms worsen, your pain is concerning for you and you have a fever Follow-up/Referrals: Jason West MD [Primary Care Provider] - Diet: Carb Consistent or DM2 Diet Texture: Pureed (blended smooth) Addtl Attending Provider Instructions: Follow-up with your primary care physician on 11/02/23 at 11:00AM Follow-up with your note specialist Dr. Aranda in 2-3 weeks Follow-up with your oncologist as able Follow-up with your casting director Dr. Cooley in 3 to 4 weeks --- Complete the antibiotic course for H. pylori infection as recommended by note specialist. --Get an EKG in 1 week to monitor your QTC. Seek immediate medical attention if your symptoms reoccur or worsen Please take all medications as instructed on discharge list below. Please call if you have any questions or problems. You can reach a [facility] hospitalist on duty at [facility] 24 hours a day by calling [phone] Pending Studies at Discharge: Yes Stand-Alone Forms: My [facility], Smoking Cessation Medications and DC Order Prescriptions: New amoxicillin 500 mg Capsule 1,000 mg PO BID 10 Days Qty: 40 0RF clarithromycin 500 mg Tablet 500 mg PO BID 10 Days Qty: 20 0RF metoprolol succinate 50 mg Tablet Extended Release 24 Hr 100 mg PO BID Qty: 60 0RF Advanced Probiotic 625 mg (10 billion cell) Capsule 1 cap PO DAILY Qty: 30 0RF pantoprazole 40 mg Tablet,Delayed Release (Dr/Ec) 40 mg PO BID Qty: 60 0RF torsemide 10 mg tablet 10 mg PO DAILY Qty: 30 0RF Continued multivitamin Tablet 1 tab PO QDL atorvastatin 40 mg Tablet 40 mg PO QAM nitroglycerin [Nitrostat] 0.4 mg Tablet, Sublingual 0.4 mg Sublingual DIRECTED PRN (Reason: Chest Pain) oxybutynin chloride 5 mg Tablet 5 mg PO BID Rx Instructions: take with lunch and at bedtime insulin glargine [Lantus Solostar U-100 Insulin] 100 unit/mL (3 mL) Insulin Pen 20 unit SUBCUT BIDM Eliquis 5 mg Tablet 5 mg PO AMHS glipizide 5 mg tablet 5 mg PO BIDM aspirin 81 mg Tablet,Delayed Release (Dr/Ec) 81 mg PO QAM acetaminophen [Tylenol Extra Strength] 500 mg Tablet 1,000 mg PO TID PRN (Reason: PAIN/FEVER) loratadine [Claritin] 10 mg Tablet 10 mg PO DAILY PRN (Reason: Congestion) cinnamon bark [Cinnamon] 500 mg Capsule 500 mg PO QDD Systane (PF) 0.4-0.3 % Dropperette 1 drp OPB DAILY PRN (Reason: Dry Eyes) Tylenol Sinus Headache 5-325 mg Tablet 1 tab PO QID PRN (Reason: Headache) calcium carbonate-vitamin D3 [Calcium 600 + D(3)] 600 mg-10 mcg (400 unit) Tablet 1 tab PO QDD magnesium oxide 400 mg magnesium Tablet 400 mg PO QDL midodrine 5 mg tablet 5 mg PO TID Qty: 90 0RF Rx Instructions: do not give last dose of day after 6PM or within 4 hrs of bedtime Changed digoxin 125 mcg (0.125 mg) tablet 0.125 mg PO UD Qty: 30 0RF Rx Instructions: TAKES MON, WED, & FRI AT HS. (3 times a week) Discontinued metoprolol succinate 100 mg Tablet Extended Release 24 Hr See Rx Instructions .ROUTE .COMPLEX Rx Instructions: TAKES 150 MG QAM, THEN 100 MG QHS. Entresto 24-26 mg tablet 0.5 tab PO AMHS Rx Instructions: TAKES 1/2 TAB BID torsemide 20 mg tablet 20 mg PO QAM Discharge Orders: Discharge Order (Routine); Ordered 10/27/23 Ordered By: Valerio Miles/Other Patient Handouts: Managing Type 2 Diabetes Admission Data Admit Date/Time: 10/21/23 13:20 Attending Provider: Valerio Ken Admit Provider: Rupali Gan Primary Care Provider: Jason West Other Providers: Rupali Gan; Blaire Paul; Franc Montiel Other Interventions: Discharge Summary Assessment (RN) Last Done: 10/25/23 09:43
[2023-10-27] MEDS ORDERED: CLARITHROMYCIN 500 MG TAB PO SCH (21:00)
[2023-10-27] MEDS ORDERED: AMOXICILLIN 500 MG CAP PO SCH (21:00)
[2023-10-27] MEDS ORDERED: PANTOprazole 40 MG TAB PO SCH (21:00)
[2023-10-28] MEDS ORDERED: ADVANCED PROBIOTIC 625 MG CAPSULE PO SCH (09:00)
== END 2023-10-27 16:00 | disposition home health service (06) | DRG 375 ==
LOC: ED 10:52 → 2S 13:20 → SUATTDRO 13:20 → 2S 19:25
DX: R07.89 Other chest pain; I48.20 Chronic atrial fibrillation, unspecified; I48.0 Paroxysmal atrial fibrillation; B96.81 Helicobacter pylori [H. pylori] as the cause of diseases classified elsewhere; Z79.84 Long term (current) use of oral hypoglycemic drugs; C16.0 Malignant neoplasm of cardia; I50.32 Chronic diastolic (congestive) heart failure; E78.5 Hyperlipidemia, unspecified; R06.02 Shortness of breath; I95.1 Orthostatic hypotension; Z88.8 Allergy status to other drugs, medicaments and biological substances; I25.10 Atherosclerotic heart disease of native coronary artery without angina pectoris; Z79.82 Long term (current) use of aspirin; Z87.891 Personal history of nicotine dependence; Z95.5 Presence of coronary angioplasty implant and graft; R13.10 Dysphagia, unspecified; R55 Syncope and collapse; I11.0 Hypertensive heart disease with heart failure; E11.9 Type 2 diabetes mellitus without complications; Z79.01 Long term (current) use of anticoagulants; I49.5 Sick sinus syndrome; Z95.0 Presence of cardiac pacemaker

== ENCOUNTER 2023-12-20 17:08 | Inpatient (IN) ==
--- NOTE | 2023-12-20 17:21 | ED Triage Note ---
Date of Service December 20, 2023 Provider in Triage Author: Ruth Ann Ramos History of Present Illness This patient was briefly evaluated while in triage. An abbreviated physical exam was performed. This patient is a 78-year-old Female who presents to the ED for evaluation of anemia. She states that she was told by her doctor to come in due to her blood work. She was recently diagnosed with esophageal cancer and is not yet getting any treatment for this. She had labs done 3 days ago and was called today and told that she needed a transfusion. Physical Exam GENERAL: Non-toxic and in no acute distress. Sitting in wheelchair in triage. HEENT: Pupils equal. No obvious scleral icterus. HEART: Regular rate and rhythm. LUNGS: Clear to auscultation. No accessory muscle use. EXTREMITIES: Edema noted to bilateral lower extremities. NEURO: Alert and oriented. No obvious neurological deficits on quick neuro exam. Initial orders for labs and / or imaging were placed and patient was placed in the waiting area until a bed is available. Please see further documentation for the full ED course.
[2023-12-20] MEDS ORDERED: SODIUM CHLORIDE 0.9% 250 ML IV PRN ×3 (17:22→21:56)
[2023-12-20 18:09] LABS: Hematocrit (blood only) 22.4 % (37.0-47.0); Hemoglobin 6.4 g/dl (12.0-16.0); Mean Corpuscular Hemoglobin 22.7 pg (25.0-34.0); Mean Corpuscular Hgb Conc 28.6 g/dL (32.0-36.0); Mean Corpuscular Volume 79.4 fL (80.0-100.0); Mean Platelet Volume 9.1 fL (9.4-12.4); Platelet Count 456 K/uL (130-400); RDW Standard Deviation 48.7 fL (36.4-46.3); Red Blood Count 2.82 M/uL (4.20-5.40); White Blood Count 10.19 K/ul (4.8-10.8)
[2023-12-20 18:22] LABS: Alanine Aminotransferase 9 U/L (7-52); Albumin Level 3.4 gm/dl (3.4-5.0); Alkaline Phosphatase 65 U/L (34-104); Anion Gap 7 (3-11); Aspartate Aminotransferase 16 U/L (13-39); BUN Creatinine Ratio 27.8 (10-20); Bilirubin,Total 0.4 mg/dl (0.2-1.0); Blood Urea Nitrogen 20 mg/dl (6-23); Calcium 9.3 mg/dl (8.6-10.3); Carbon Dioxide 27 mmol/L (21-32); Chloride 103 mmol/L (98-107); Est GFR (African American) 92.3 ml/min; Est GFR (Non-African American) 79.7 ml/min; Globulin 3.3 gm/dl (2.5-4.0); Glucose 139 mg/dl (70-99(Fasting)); Potassium 4.5 mmol/L (3.5-5.1); Sodium 137 mmol/L (136-145); Total Protein 6.7 gm/dl (6.0-8.3)
[2023-12-20 18:31] LABS: Basophils # (auto) 0.07 K/uL (0.00-0.20); Basophils % (auto) 0.7 %; Eosinophils # (auto) 0.17 K/uL (0.00-0.50); Eosinophils % (auto) 1.7 %; Hypochromasia Present; Immature Granulocytes # (auto) 0.05 K/uL (0.01-0.20); Immature Granulocytes % (auto) 0.5 %; Lymphocytes % (auto) 21.6 %; Microcytosis Present; Monocytes # (auto) 0.88 K/uL (0.11-0.59); Monocytes % (auto) 8.6 %; Neutrophils # (auto) 6.82 K/uL (1.40-6.50); Neutrophils % (auto) 66.9 %
[2023-12-20 18:36] LABS: INR 1.2 (0.9-1.1)
[2023-12-20] MEDS: PANTOprazole 40 MG in SYRINGE 0 ML IV ONE ×2 (18:47→20:42)
--- NOTE | 2023-12-20 18:58 | Emergency Department Note ---
Impression & Plan Symptomatic anemia, Anemia requiring transfusions, Acute GI bleeding, Melena ED Provider Note HISTORY OF PRESENT ILLNESS: Patient is a 78-year-old female presenting with melena and anemia. Patient reports that she has had dark tarry black stools for the last 3 to 4 weeks. She is on Eliquis. Reports that she had a follow-up with her cover operator 4 days ago and had lab work done. She was instructed to come to the ER for transfusion. She was recently diagnosed with esophageal cancer and is supposed to start chemotherapy and radiation therapy later this month. She was called by her oncologist to present to the emergency department for transfusion given that her hemoglobin was 6. She states that she had labs done through [facility]. She denies any chest pain, but does report significant shortness of breath over the last 3 to 4 weeks. Reports she is only able to walk a few steps before becoming winded. Denies any fevers. Denies any cough. Denies any recent sick contact exposures. Denies any dysuria or hematuria. ROS: as above PHYSICAL EXAM: Constitutional: Patient appears in no acute distress. HENT: Head: Normocephalic and atraumatic. Eyes: EOMI, PERRL Mouth/Throat: Mucous membranes moist. Neck: Trachea midline. Neck supple. Cardiovascular: RRR, No murmurs, rubs or gallops. Intact distal pulses. Pulmonary/Chest: No respiratory distress. Breath sounds clear and equal bilaterally. No wheezes or rales. Abdominal: Abdomen soft, no tenderness, rebound or guarding. Rectal: Chaperoned by nursing staff. Patient has no palpable masses or hemorrhoids. Sean melena on glove. Hemoccult positive. Musculoskeletal: No edema, tenderness or deformity noted. Skin: Warm and dry. No rash, erythema, pallor or cyanosis Psychiatric: Appropriate mood and affect for situation. Neurological: Alert and keenly responsive. CN II-XII grossly intact, moving all extremities equally and fully. MDM: - Vitals signs showed hypertension and borderline fever - History obtained via patient. History as above. - Chronic conditions affecting care: CAD (s/p PCI); HTN; HLD; DM-2; Afib (on Eliquis); CHF - Differential diagnoses include, but are not limited to: bleeding peptic ulcer; esophageal mass bleeding; diverticular bleed; coagulopathy - Order placed for continuous cardiac monitoring. At this time, monitor showed rate of 77 bpm with normal sinus rhythm, per my interpretation. - External medical records reviewed. Otolaryngology note dated 12/06/2023 was reviewed. 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 - EKG interpreted by myself showed atrial fibrillation. Rate 75 bpm. QT 392. No acute ischemic changes - Laboratory workup interpreted by myself showed normal WBC; anemia (Hgb 6.4); elevated INR (1.2); stable electrolytes - Type and screen obtained. Patient was consented for blood. Patient typed for 2 units of PRBC. 1 unit ordered to transfuse now. - Viral respiratory panel negative - CXR negative for pneumonia, per my interpretation. Patient dose have some blunting of her left costophrenic angle, but may be due to positioning. - Patient given 40 mg IV protonix. - Discussion was had with case filler about patient's case and need for admission - Hospitalist consulted for admission - Patient admitted to [facility] service for further evaluation and management. I have personally spent 34 minutes of critical care time in the direct management of this patient. This includes bedside care, interpretation of diagnostic studies, and testing, discussion with consultants, patient, and family members, and other required patient management activities. This 34 minutes is in excess of all separately billable procedures. 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) Mass of esophagus Syncope and collapse Pacemaker Dysphagia Anemia (Acute) Shortness of breath (Acute) Chest pain (Acute) Midsternal chest pain (Acute) Acid reflux Atypical chest pain Chest pain DVT prophylaxis Orthostatic hypotension SOB (shortness of breath) (Acute) Hypoxia (Acute) Fall (Acute) Atrial fibrillation with RVR (Acute) Chronic diastolic HF (heart failure) (Chronic) Paroxysmal A-fib (Chronic) on Eliquis Elevated lactic acid level (Acute) Osteoarthritis (Chronic) DM type 2 (diabetes mellitus, type 2) (Chronic) Dyslipidemia (Chronic) Hypertension (Chronic) Coronary artery disease (Chronic) "anterior MT 11/10/17, LVEF 20-25%, PCI LAD with ISABEL" Hx of supraventricular tachycardia (Chronic) H/O ovarian cystectomy (Chronic) History of appendectomy (Chronic) History of right knee joint replacement (Chronic) History of tonsillectomy (Chronic) History of cholecystectomy (Chronic) Status post coronary artery stent placement (Chronic) "PCI LAD with ISABEL 11/10/17" Medical History (Updated 12/20/23 @ 19:05 by Katelyn Giang MD) Overactive bladder Postural dizziness with presyncope Diabetic polyneuropathy Orthostatic hypotension Atrial fibrillation with rapid ventricular response Chest pain Chest pain Acute on chronic diastolic (congestive) heart failure Ischemic cardiomyopathy Tachy-barbra syndrome admitted for elective pacemaker. Underwent procedure no complications; monitored overnight and discharged home. Surgical History (Updated 12/16/23 @ 10:30 by Lisa Fischer RN) H/O esophagogastroduodenoscopy Social History (Updated 12/16/23 @ 10:30 by Lisa Fischer RN) Smoking Status: Former smoker Tobacco Type: Cigarettes Cigarettes Per Day: 1.5 PPD x 35yrs; Second Hand Exposure: No; Do You Dip or Chew Tobacco: No; Hx Alcohol Use: No Hx Substance Use: No Preferred Language: Macedonian Communication Ability: Effective Visual Impairment: Limited Cosmetic Assembler Required: No Beliefs That Will Affect Care: None marital status: / Current Living Situation: Alone Current Living Situation Comment: States she will be looking to move to assisted living Feels Safe at Home: Yes Assistive Devices: Cane and Walker Allergies Allergies Allergy/AdvReac Type Severity Reaction Status Date / Time cetirizine AdvReac Intermediate Hallucinati Verified 10/21/23 12:45 ng hydroxyzine AdvReac Intermediate Hallucinati Verified 10/21/23 12:45 ng Home Meds Home Medications Medication Instructions Recorded Confirmed apixaban 5 mg tablet (Eliquis) 5 mg PO AMHS 06/18/18 12/16/23 atorvastatin 40 mg tablet 40 mg PO QAM 06/18/18 12/16/23 insulin glargine 100 unit/mL (3 20 unit subcut BIDM 06/18/18 12/16/23 mL) subcutaneous pen (Lantus Solostar U-100 Insulin) multivitamin 1 tab PO QDL 06/18/18 12/16/23 nitroglycerin 0.4 mg sublingual 0.4 mg sublingual DIRECTED PRN 06/18/18 12/16/23 tablet (Nitrostat) Chest Pain oxybutynin chloride 5 mg tablet 5 mg PO BID 06/18/18 12/16/23 glipizide 5 mg tablet 5 mg PO BIDM 04/11/20 12/16/23 acetaminophen 500 mg tablet 1,000 mg PO TID PRN PAIN/FEVER 05/18/22 12/16/23 (Tylenol Extra Strength) aspirin 81 mg tablet,delayed 81 mg PO QAM 05/18/22 12/16/23 release cinnamon bark 500 mg capsule 500 mg PO QDD 05/18/22 12/16/23 (Cinnamon) loratadine 10 mg tablet (Claritin) 10 mg PO DAILY PRN Congestion 05/18/22 12/16/23 magnesium oxide 400 mg PO QDL 05/18/22 12/16/23 peg 400-propylene glycol (PF) 0.4 1 drp OPB DAILY PRN Dry Eyes 05/18/22 12/16/23 %-0.3 % eye drops in a dropperette (Systane (PF)) phenylephrine-acetaminophen 5 1 tab PO QID PRN Headache 05/18/22 10/21/23 mg-325 mg tablet (Tylenol Sinus Headache) calcium carbonate 600 mg-vitamin 2 cap PO DAILY 12/16/23 12/16/23 D3 12.5 mcg (500 unit) capsule (Calcium 600 with Vitamin D3) metoprolol succinate 100 mg 100 mg PO .In the PM 12/16/23 12/16/23 capsule sprinkle, ext. release 24 hr metoprolol succinate 100 mg 150 mg PO .In the AM 12/16/23 12/16/23 tablet,extended release 24 hr Previous Rx's Medication Instructions Recorded midodrine 5 mg tablet 5 mg PO TID #90 tabs 05/26/22 L.acidop,casei,lactis,rham-B.lact,prince 1 cap PO DAILY #30 caps 10/27/23 625 mg (10 billion cell) capsule (Advanced Probiotic) digoxin 125 mcg (0.125 mg) tablet 0.125 mg PO UD #30 tabs 10/27/23 pantoprazole 40 mg tablet,delayed 40 mg PO BID #60 tabs 10/27/23 release torsemide 10 mg tablet 10 mg PO DAILY #30 tabs 10/27/23 Results & Data (ED) Vital Signs Vital Signs - 24 hr 12/20/23 17:19 12/20/23 18:25 12/20/23 18:28 Temperature 37.6 C H Temperature Source Temporal Artery Scan Pulse Rate 84 76 Pulse Rate [Apical] 88 Pulse Rhythm [Apical] Regular Respiratory Rate 14 20 Respiratory Effort / Characteristics Non-Labored Spontaneous Non-Labored Spontaneous Respiratory Depth Normal Normal Respiratory Pattern Regular Blood Pressure 124/75 Blood Pressure [Right Arm] 156/70 H Blood Pressure Mean 91 Blood Pressure Mean [Right Arm] 98 Blood Pressure Position [Right Arm] Lying Pulse Oximetry 97 97 Oxygen Delivery Method Room Air Room Air Sepsis Recent Fever Within 48 Hours No Sepsis New/Unexplained Change in Mental Status No Sepsis Action Taken by Nursing No Action Required 12/20/23 19:45 Temperature 36.8 C Temperature Source Oral Pulse Rate 77 Pulse Rate [Apical] Pulse Rhythm [Apical] Respiratory Rate 18 Respiratory Effort / Characteristics Respiratory Depth Respiratory Pattern Blood Pressure 133/90 Blood Pressure [Right Arm] Blood Pressure Mean 104 Blood Pressure Mean [Right Arm] Blood Pressure Position [Right Arm] Pulse Oximetry 98 Oxygen Delivery Method Sepsis Recent Fever Within 48 Hours Sepsis New/Unexplained Change in Mental Status Sepsis Action Taken by Nursing Laboratory Data 12/20/23 17:46 12/20/23 17:46 Lab Results 12/20/23 12/20/23 Range/Units 17:46 18:36 WBC 10.19 (4.8-10.8) K/ul RBC 2.82 L (4.20-5.40) M/uL Hgb 6.4 L* (12.0-16.0) g/dl Hct 22.4 L (37.0-47.0) % MCV 79.4 L (80.0-100.0) fL MCH 22.7 L (25.0-34.0) pg MCHC 28.6 L (32.0-36.0) g/dL RDW Std Deviation 48.7 H (36.4-46.3) fL RDW Coeff of [place] 17.0 H (11.5-14.5) % Plt Count 456 H (130-400) K/uL MPV 9.1 L (9.4-12.4) fL Immature Gran % (Auto) 0.5 % Neut % (Auto) 66.9 % Lymph % (Auto) 21.6 % [place] % (Auto) 8.6 % Eos % (Auto) 1.7 % Baso % (Auto) 0.7 % Neut # (Auto) 6.82 H (1.40-6.50) K/uL Lymph # (Auto) 2.20 (1.20-3.40) K/uL [place] # (Auto) 0.88 H (0.11-0.59) K/uL Eos # (Auto) 0.17 (0.00-0.50) K/uL Baso # (Auto) 0.07 (0.00-0.20) K/uL Immature Gran # (Auto) 0.05 (0.01-0.20) K/uL Hypochromasia Present Microcytosis Present PT 13.0 H (9.0-12.0) Seconds INR 1.2 H (0.9-1.1) Sodium 137 (136-145) mmol/L Potassium 4.5 (3.5-5.1) mmol/L Chloride 103 (98-107) mmol/L Carbon Dioxide 27 (21-32) mmol/L Anion Gap 7 (3-11) BUN 20 (6-23) mg/dl Creatinine 0.72 (0.6-1.2) mg/dl Est Cr Clr Drug Dosing Not Reportable Est GFR ( Amer) 92.3 ml/min Est GFR (Non-Af Amer) 79.7 ml/min BUN/Creatinine Ratio 27.8 H (10-20) Glucose 139 H (70-99(Fasting)) mg/dl Calcium 9.3 (8.6-10.3) mg/dl Total Bilirubin 0.4 (0.2-1.0) mg/dl AST 16 (13-39) U/L ALT 9 (7-52) U/L Alkaline Phosphatase 65 (34-104) U/L Total Protein 6.7 (6.0-8.3) gm/dl Albumin 3.4 (3.4-5.0) gm/dl Globulin 3.3 (2.5-4.0) gm/dl Albumin/Globulin Ratio 1.0 (0.9-2) Adenovirus (PCR) Not Detected (NotDetected) B. pertussis DNA (PCR) Not Detected (NotDetected) B.parapertussis DNA PCR Not Detected (NotDetected) C. pneumoniae DNA (PCR) Not Detected (NotDetected) Coronavirus OC43 (PCR) Not Detected (NotDetected) Coronavirus HKU1 (PCR) Not Detected (NotDetected) Coronavirus 229E (PCR) Not Detected (NotDetected) SARS-CoV-2 (PCR) Not Detected (NotDetected) Coronavirus NL63 (PCR) Not Detected (NotDetected) Human Metapneumovir PCR Not Detected (NotDetected) Influenza Type A (PCR) Not Detected (NotDetected) Influenza Type B (PCR) Not Detected (NotDetected) M. pneumoniae (PCR) Not Detected (NotDetected) Parainfluenza 1 (PCR) Not Detected (NotDetected) Parainfluenza 2 (PCR) Not Detected (NotDetected) Parainfluenza 3 (PCR) Not Detected (NotDetected) Parainfluenza 4 (PCR) Not Detected (NotDetected) RSV (PCR) Not Detected (NotDetected) Entero/Rhino (PCR) Not Detected (NotDetected) Blood Type A Positive Antibody Screen NEGATIVE Crossmatch See Detail Administered Medications Discontinued Medications Pantoprazole Sodium 40 mg/ (Syringe) 10 mls @ 5 mls/min IV NOW ONE Stop: 12/20/23 18:22 Last Admin: 12/20/23 18:47 Dose: 5 mls/min Documented By: CARLOS ALBERTO Discharge Plan Visit Data Chief Complaint: Referred by Doctor Stated Complaint: TRANSFUSION ED Provider: Katelyn Giang Discharge Problem: Symptomatic anemia, Anemia requiring transfusions, Acute GI bleeding, Melena Forms Stand Alone Forms: My [facility] Art Qualified Prescriptions Prescriptions: No Action calcium carbonate-vitamin D3 [Calcium 600 with Vitamin D3] 600 mg-12.5 mcg (500 unit) capsule 2 cap PO DAILY metoprolol succinate 100 mg tablet extended release 24 hr 150 mg PO .In the AM metoprolol succinate 100 mg capsule,sprinkle,ER 24hr 100 mg PO .In the PM multivitamin Tablet 1 tab PO QDL atorvastatin 40 mg Tablet 40 mg PO QAM Hold Instructions: Until further recommendations from your primary care physician nitroglycerin [Nitrostat] 0.4 mg Tablet, Sublingual 0.4 mg Sublingual DIRECTED PRN (Reason: Chest Pain) oxybutynin chloride 5 mg Tablet 5 mg PO BID Rx Instructions: take with lunch and at bedtime insulin glargine [Lantus Solostar U-100 Insulin] 100 unit/mL (3 mL) Insulin Pen 20 unit SUBCUT BIDM Eliquis 5 mg Tablet 5 mg PO AMHS glipizide 5 mg tablet 5 mg PO BIDM aspirin 81 mg Tablet,Delayed Release (Dr/Ec) 81 mg PO QAM acetaminophen [Tylenol Extra Strength] 500 mg Tablet 1,000 mg PO TID PRN (Reason: PAIN/FEVER) loratadine [Claritin] 10 mg Tablet 10 mg PO DAILY PRN (Reason: Congestion) cinnamon bark [Cinnamon] 500 mg Capsule 500 mg PO QDD Systane (PF) 0.4-0.3 % Dropperette 1 drp OPB DAILY PRN (Reason: Dry Eyes) Tylenol Sinus Headache 5-325 mg Tablet 1 tab PO QID PRN (Reason: Headache) magnesium oxide 400 mg magnesium Tablet 400 mg PO QDL midodrine 5 mg tablet 5 mg PO TID Qty: 90 0RF Rx Instructions: do not give last dose of day after 6PM or within 4 hrs of bedtime Advanced Probiotic 625 mg (10 billion cell) Capsule 1 cap PO DAILY Qty: 30 0RF pantoprazole 40 mg Tablet,Delayed Release (Dr/Ec) 40 mg PO BID Qty: 60 0RF torsemide 10 mg tablet 10 mg PO DAILY Qty: 30 0RF digoxin 125 mcg (0.125 mg) tablet 0.125 mg PO UD Qty: 30 0RF Rx Instructions: TAKES MON, WED, & FRI AT HS. (3 times a week) Referrals Referrals: Jason West MD [Primary Care Provider] -
[2023-12-20 19:46] LABS: Adenovirus PCR Not Detected (NotDetected); Bordetella parapertussis PCR Not Detected (NotDetected); Bordetella pertussis PCR Not Detected (NotDetected); Chlamydia pneumoniae PCR Not Detected (NotDetected); Coronavirus 229E PCR Not Detected (NotDetected); Coronavirus CoV-2 (COVID19)PCR Not Detected (NotDetected); Coronavirus HKU1 PCR Not Detected (NotDetected); Coronavirus NL63 PCR Not Detected (NotDetected); Coronavirus OC43PCR Not Detected (NotDetected); Human Metapneumovirus PCR Not Detected (NotDetected); Influenza A PCR Not Detected (NotDetected); Influenza B PCR Not Detected (NotDetected); Mycoplasma pneumoniae PCR Not Detected (NotDetected); Parainfluenza Virus 1 PCR Not Detected (NotDetected); Parainfluenza Virus 2 PCR Not Detected (NotDetected); Parainfluenza Virus 3 PCR Not Detected (NotDetected); Parainfluenza Virus 4 PCR Not Detected (NotDetected); Respiratory Syncytial VirusPCR Not Detected (NotDetected); Rhinovirus/Enterovirus PCR Not Detected (NotDetected)
[2023-12-20 20:20] LABS: Magnesium 1.8 mg/dl (1.7-2.4)
--- NOTE | 2023-12-20 22:07 | History & Physical Report ---
Date of Service December 20, 2023 Assessment & Plan (1) Acute GI bleeding: Plan: UGIB In the setting GE junction adenocarcinoma and aspirin and Eliquis Rx, hx CAD status post stent, SSS status post PPM on Eliquis Symptomatic anemia secondary to above chronic diastolic heart failure (65%%, TTE 2023), If without response patient euvolemic to dry hypertension, slightly elevated hyperlipidemia on statin Rx DM2 on oral medications, well-controlled as of recent hemoglobin A1c of 6.09 Dec 2023 parotid masses, [facility] ENT following past tobacco abuse Medical telemetry IV PPI Transfuse PRBC to maintain hemoglobin of at least 8, history CAD Appropriate to hold Eliquis and aspirin for now given active UGIB N.p.o. until patient seen by GI in anticipation of endoscopy Basal insulin adjusted for n.p.o. status, ISS BG goal [id number], update hemoglobin A1c DVT prophylaxis. SCDs Re: UGIB Full code Text document was generated using [employer] voice recognition software. It may contain grammatical or spelling errors. Kindly contact undersigned for clarification of any documentation item in question. History of Present Illness Chief Complaint: Abnormal blood work Primary Care Provider: Jason West MD History obtained from patient and records. Medical history significant for chronic diastolic heart failure (65%%, TTE 2023), CAD status post stent, SSS sp PPM on Eliquis, mild TR, PSVT hypertension, hyperlipidemia, GE junction adenocarcinoma, DM2 on oral medications, PMR, parotid masses, pulmonary nodule, past tobacco abuse Last confinement October 2023 for dysphagia attributed to GE junction mass. Moderate to poorly differentiated adenocarcinoma on pathology. Chemoradiation contemplated by [facility] oncologist. 2 weeks ago, patient noted melanotic stools without abdominal pain. Patient also noted generalized fatigue and worsening shortness of breath on exertion. No chest pain, no headache symptoms. Denies OTC NSAID intake. No consultations done. Outpatient hemoglobin last 12/16 noted to be 7.1. Patient directed to ER for evaluation. Protonix and 1 unit PRBC administered at the ER. 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 Allergies Allergy/AdvReac Type Severity Reaction Status Date / Time cetirizine AdvReac Intermediate Hallucinati Verified 12/20/23 20:54 ng hydroxyzine AdvReac Intermediate Hallucinati Verified 12/20/23 20:54 ng Home Medications Medication Instructions Recorded Confirmed Type apixaban 5 mg tablet (Eliquis) 5 mg PO AMHS 06/18/18 12/20/23 History atorvastatin 40 mg tablet 40 mg PO QAM 06/18/18 12/20/23 History insulin glargine 100 unit/mL (3 20 unit subcut BIDM 06/18/18 12/20/23 History mL) subcutaneous pen (Lantus Solostar U-100 Insulin) multivitamin 1 tab PO QDL 06/18/18 12/20/23 History nitroglycerin 0.4 mg sublingual 0.4 mg sublingual DIRECTED PRN 06/18/18 12/20/23 History tablet (Nitrostat) Chest Pain oxybutynin chloride 5 mg tablet 5 mg PO BID 06/18/18 12/20/23 History glipizide 5 mg tablet 5 mg PO BIDM 04/11/20 12/20/23 History acetaminophen 500 mg tablet 1,000 mg PO TID PRN PAIN/FEVER 05/18/22 12/20/23 History (Tylenol Extra Strength) aspirin 81 mg tablet,delayed 81 mg PO QAM 05/18/22 12/20/23 History release cinnamon bark 500 mg capsule 1,000 mg PO QDD 05/18/22 12/20/23 History (Cinnamon) magnesium oxide 400 mg PO QDL 05/18/22 12/20/23 History peg 400-propylene glycol (PF) 0.4 1 drp OPB DAILY PRN Dry Eyes 05/18/22 12/20/23 History %-0.3 % eye drops in a dropperette (Systane (PF)) midodrine 5 mg tablet 5 mg PO TID #90 tabs 05/26/22 12/20/23 Rx L.acidop,casei,lactis,rham-B.lact,prince 1 cap PO DAILY #30 caps 10/27/23 12/20/23 Rx 625 mg (10 billion cell) capsule (Advanced Probiotic) digoxin 125 mcg (0.125 mg) tablet 0.125 mg PO UD #30 tabs 10/27/23 12/20/23 Rx pantoprazole 40 mg tablet,delayed 40 mg PO BID #60 tabs 10/27/23 12/20/23 Rx release torsemide 10 mg tablet 10 mg PO DAILY #30 tabs 10/27/23 12/20/23 Rx calcium carbonate 600 mg-vitamin 1 cap PO BID 12/16/23 12/20/23 History D3 12.5 mcg (500 unit) capsule (Calcium 600 with Vitamin D3) metoprolol succinate 100 mg 100 mg PO BID 12/16/23 12/20/23 History tablet,extended release 24 hr cetirizine 5 mg tablet 5 mg PO DAILY PRN .ALLERGIES 12/20/23 12/20/23 History hydroxyzine HCl 10 mg tablet 0 mg PO DIRECTED PRN .. 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) Mass of esophagus Syncope and collapse Pacemaker Dysphagia Anemia (Acute) Shortness of breath (Acute) Chest pain (Acute) Midsternal chest pain (Acute) Acid reflux Atypical chest pain Chest pain DVT prophylaxis Orthostatic hypotension SOB (shortness of breath) (Acute) Hypoxia (Acute) Fall (Acute) Atrial fibrillation with RVR (Acute) Chronic diastolic HF (heart failure) (Chronic) Paroxysmal A-fib (Chronic) on Eliquis Elevated lactic acid level (Acute) Osteoarthritis (Chronic) DM type 2 (diabetes mellitus, type 2) (Chronic) Dyslipidemia (Chronic) Hypertension (Chronic) Coronary artery disease (Chronic) "anterior RI 11/10/17, LVEF 20-25%, PCI LAD with ISABEL" Hx of supraventricular tachycardia (Chronic) H/O ovarian cystectomy (Chronic) History of appendectomy (Chronic) History of right knee joint replacement (Chronic) History of tonsillectomy (Chronic) History of cholecystectomy (Chronic) Status post coronary artery stent placement (Chronic) "PCI LAD with ISABEL 11/10/17" Medical History (Updated 12/20/23 @ 19:05 by Katelyn Giang MD) Overactive bladder Postural dizziness with presyncope Diabetic polyneuropathy Orthostatic hypotension Atrial fibrillation with rapid ventricular response Chest pain Chest pain Acute on chronic diastolic (congestive) heart failure Ischemic cardiomyopathy Tachy-barbra syndrome admitted for elective pacemaker. Underwent procedure no complications; monitored overnight and discharged home. Surgical History (Updated 12/16/23 @ 10:30 by Lisa Fischer RN) H/O esophagogastroduodenoscopy Social History (Updated 12/16/23 @ 10:30 by Lisa Fischer RN) Smoking Status: Former smoker Tobacco Type: Cigarettes Cigarettes Per Day: 1.5 PPD x 35yrs; Second Hand Exposure: No; Do You Dip or Chew Tobacco: No; Hx Alcohol Use: No Hx Substance Use: No Preferred Language: Icelandic Communication Ability: Effective Visual Impairment: Limited Car Clerk Pullman Required: No Beliefs That Will Affect Care: None marital status: / Current Living Situation: Alone Current Living Situation Comment: States she will be looking to move to assisted living Other Information That Helps Us Care for You: No Feels Safe at Home: Yes Safety Concerns: Feels Safe At This Time Assistive Devices: Glasses Review of Systems Review of Systems: As per HPI, all other systems reviewed and negative Physical Exam Physical Exam: GENERAL: Comfortable, morbidly obese, pleasant, no respiratory distress SKIN: Pallor, warm HEENT: Bespectacled, pale palpebral conjunctivae, no ptosis, moist buccal mucosa NECK : Supple, short neck, no tenderness CHEST : CTA, no tenderness HEART : Irregular, no obvious murmurs ABDOMEN: Some distention, nontender EXTREMITIES : Chronic LE swelling, no LE tenderness, no other conspicuous deformities noted NEUROLOGIC : Coherent, no facial asymmetry, no other gross focality Results & Data Results & Data Vital Signs (Past 12 Hours) Vital Signs Temp Pulse Pulse Resp BP BP Pulse Ox 12/20/23 20:52 36.7 C 77 18 125/75 98 12/20/23 20:22 36.8 C 74 16 138/74 98 12/20/23 20:07 36.8 C 68 16 139/60 97 12/20/23 19:45 36.8 C 77 18 133/90 98 12/20/23 18:28 76 12/20/23 18:25 88 20 156/70 H 97 12/20/23 17:19 37.6 C H 84 14 124/75 97 O2 Del Method 12/20/23 20:52 12/20/23 20:22 12/20/23 20:07 12/20/23 19:45 12/20/23 18:28 12/20/23 18:25 Room Air 12/20/23 17:19 Room Air Laboratory Results Laboratory Results WBC 10.19 K/ul (4.8-10.8) 12/20/23 17:46 RBC 2.82 M/uL (4.20-5.40) L 12/20/23 17:46 Hgb 6.4 g/dl (12.0-16.0) L* 12/20/23 17:46 Hct 22.4 % (37.0-47.0) L 12/20/23 17:46 MCV 79.4 fL (80.0-100.0) L 12/20/23 17:46 MCH 22.7 pg (25.0-34.0) L 12/20/23 17:46 MCHC 28.6 g/dL (32.0-36.0) L 12/20/23 17:46 RDW Std Deviation 48.7 fL (36.4-46.3) H 12/20/23 17:46 RDW Coeff of Yosi 17.0 % (11.5-14.5) H 12/20/23 17:46 Plt Count 456 K/uL (130-400) H 12/20/23 17:46 MPV 9.1 fL (9.4-12.4) L 12/20/23 17:46 Immature Gran % (Auto) 0.5 % 12/20/23 17:46 Neut % (Auto) 66.9 % 12/20/23 17:46 Lymph % (Auto) 21.6 % 12/20/23 17:46 Archer % (Auto) 8.6 % 12/20/23 17:46 Eos % (Auto) 1.7 % 12/20/23 17:46 Baso % (Auto) 0.7 % 12/20/23 17:46 Neut # (Auto) 6.82 K/uL (1.40-6.50) H 12/20/23 17:46 Lymph # (Auto) 2.20 K/uL (1.20-3.40) 12/20/23 17:46 Archer # (Auto) 0.88 K/uL (0.11-0.59) H 12/20/23 17:46 Eos # (Auto) 0.17 K/uL (0.00-0.50) 12/20/23 17:46 Baso # (Auto) 0.07 K/uL (0.00-0.20) 12/20/23 17:46 Immature Gran # (Auto) 0.05 K/uL (0.01-0.20) 12/20/23 17:46 Hypochromasia Present 12/20/23 17:46 Microcytosis Present 12/20/23 17:46 PT 13.0 Seconds (9.0-12.0) H 12/20/23 17:46 INR 1.2 (0.9-1.1) H 12/20/23 17:46 Sodium 137 mmol/L (136-145) 12/20/23 17:46 Potassium 4.5 mmol/L (3.5-5.1) 12/20/23 17:46 Chloride 103 mmol/L (98-107) 12/20/23 17:46 Carbon Dioxide 27 mmol/L (21-32) 12/20/23 17:46 Anion Gap 7 (3-11) 12/20/23 17:46 BUN 20 mg/dl (6-23) 12/20/23 17:46 Creatinine 0.72 mg/dl (0.6-1.2) 12/20/23 17:46 Est Cr Clr Drug Dosing Not Reportable 12/20/23 17:46 Est GFR ( Amer) 92.3 ml/min 12/20/23 17:46 Est GFR (Non-Af Amer) 79.7 ml/min 12/20/23 17:46 BUN/Creatinine Ratio 27.8 (10-20) H 12/20/23 17:46 Glucose 139 mg/dl (70-99(Fasting)) H 12/20/23 17:46 Calcium 9.3 mg/dl (8.6-10.3) 12/20/23 17:46 Magnesium 1.8 mg/dl (1.7-2.4) 12/20/23 17:46 Total Bilirubin 0.4 mg/dl (0.2-1.0) 12/20/23 17:46 AST 16 U/L (13-39) 12/20/23 17:46 ALT 9 U/L (7-52) 12/20/23 17:46 Alkaline Phosphatase 65 U/L (34-104) 12/20/23 17:46 Total Protein 6.7 gm/dl (6.0-8.3) 12/20/23 17:46 Albumin 3.4 gm/dl (3.4-5.0) 12/20/23 17:46 Globulin 3.3 gm/dl (2.5-4.0) 12/20/23 17:46 Albumin/Globulin Ratio 1.0 (0.9-2) 12/20/23 17:46 Adenovirus (PCR) Not Detected (NotDetected) 12/20/23 18:36 B. pertussis DNA (PCR) Not Detected (NotDetected) 12/20/23 18:36 B.parapertussis DNA PCR Not Detected (NotDetected) 12/20/23 18:36 C. pneumoniae DNA (PCR) Not Detected (NotDetected) 12/20/23 18:36 Coronavirus OC43 (PCR) Not Detected (NotDetected) 12/20/23 18:36 Coronavirus HKU1 (PCR) Not Detected (NotDetected) 12/20/23 18:36 Coronavirus 229E (PCR) Not Detected (NotDetected) 12/20/23 18:36 SARS-CoV-2 (PCR) Not Detected (NotDetected) 12/20/23 18:36 Coronavirus NL63 (PCR) Not Detected (NotDetected) 12/20/23 18:36 Human Metapneumovir PCR Not Detected (NotDetected) 12/20/23 18:36 Influenza Type A (PCR) Not Detected (NotDetected) 12/20/23 18:36 Influenza Type B (PCR) Not Detected (NotDetected) 12/20/23 18:36 M. pneumoniae (PCR) Not Detected (NotDetected) 12/20/23 18:36 Parainfluenza 1 (PCR) Not Detected (NotDetected) 12/20/23 18:36 Parainfluenza 2 (PCR) Not Detected (NotDetected) 12/20/23 18:36 Parainfluenza 3 (PCR) Not Detected (NotDetected) 12/20/23 18:36 Parainfluenza 4 (PCR) Not Detected (NotDetected) 12/20/23 18:36 RSV (PCR) Not Detected (NotDetected) 12/20/23 18:36 Entero/Rhino (PCR) Not Detected (NotDetected) 12/20/23 18:36 Blood Type A Positive 12/20/23 17:46 Antibody Screen NEGATIVE 12/20/23 17:46 Crossmatch See Detail 12/20/23 17:46 Diagnostic Findings Chest x-ray as per them interpretation cardiomegaly, right pleural effusion EKG as per my interpretation : Rate 75, A-fib, LAD, LAFB, nonspecific T wave abnormalities, PVCs
[2023-12-20] MEDS ORDERED: PROMETHAZINE HCL 6.25 MG in SODIUM CHLORIDE 0.9% 50 ML IV PRN (22:11)
[2023-12-20] MEDS: FUROSEMIDE INJ 20 MG/2 ML VIAL IV ONE (22:48)
[2023-12-20] MEDS ORDERED: GLUCOSE 40% GEL 15 GM TUBE PO PRN (23:32)
[2023-12-20] MEDS ORDERED: GLUCAGON FOR INJ 1 MG VIAL SQ PRN (23:32)
[2023-12-20] MEDS ORDERED: NITROGLYCERIN SL 0.4 MG/TAB TAB SL PRN (23:32)
[2023-12-20] MEDS ORDERED: CARBOHYDRATES FOR HYPOGLYCEMIA PO PRN (23:32)
[2023-12-20] MEDS ORDERED: GLUCOSE 10 TAB/TUBE PO PRN (23:32)
[2023-12-20] MEDS ORDERED: DEXTROSE 50% 50 ML SYRINGE IV PRN (23:32)
[2023-12-20] MEDS ORDERED: ARTIFICIAL TEARS OP PRN (23:50)
[2023-12-21] MEDS: INSULIN ASPART PER UNIT CHARGE SC SCH (00:12)
[2023-12-21] MEDS: PANTOprazole 40 MG in DEXTROSE 5% MINI-B 100 ML IV SCH (00:29)
[2023-12-21] MEDS: METOPROLOL SUCC 50MG EXT REL TAB PO SCH (00:29)
[2023-12-21 00:50] LABS: Appearance Urine Clear (Clear); Bilirubin Urine Negative (Negative); Blood Urine Negative (Negative); Color Urine Yellow; Glucose Urine UA Negative (Negative); Ketones Urine Negative (Negative); Leukocyte Esterase Urine Negative (Negative); Nitrite Urine Negative (Negative); Protein Urine Negative (Negative); Specific Gravity Urine 1.004 (1.000-1.030); Urobilinogen Urine Negative (Negative); pH Urine 6.5 (4.5-7.5)
[2023-12-21 06:03] LABS: BUN Creatinine Ratio 24.2 (10-20); Calcium 8.8 mg/dl (8.6-10.3); Est GFR (African American) 97.4 ml/min; Potassium 4.4 mmol/L (3.5-5.1)
[2023-12-21 06:19] LABS: Basophils # (auto) 0.08 K/uL (0.00-0.20); Basophils % (auto) 0.7 %; Eosinophils # (auto) 0.24 K/uL (0.00-0.50); Eosinophils % (auto) 2.2 %; Hematocrit (blood only) 28.6 % (37.0-47.0); Hemoglobin 8.6 g/dl (12.0-16.0); Immature Granulocytes # (auto) 0.03 K/uL (0.01-0.20); Immature Granulocytes % (auto) 0.3 %; Lymphocytes # (auto) 1.65 K/uL (1.20-3.40); Lymphocytes % (auto) 15.2 %; Mean Corpuscular Hemoglobin 24.4 pg (25.0-34.0); Mean Corpuscular Hgb Conc 30.1 g/dL (32.0-36.0); Mean Corpuscular Volume 81.3 fL (80.0-100.0); Mean Platelet Volume 8.9 fL (9.4-12.4); Monocytes # (auto) 0.98 K/uL (0.11-0.59); Monocytes % (auto) 9.1 %; Neutrophils # (auto) 7.84 K/uL (1.40-6.50); Neutrophils % (auto) 72.5 %; Platelet Count 371 K/uL (130-400); RDW Coefficient of Variation 15.7 % (11.5-14.5); RDW Standard Deviation 45.8 fL (36.4-46.3); Red Blood Count 3.52 M/uL (4.20-5.40); White Blood Count 10.82 K/ul (4.8-10.8)
--- NOTE | 2023-12-21 07:52 | XRay Report ---
XR chest 1V portable CLINICAL HISTORY: Shortness of breath. COMPARISON STUDY: Chest radiograph October 21, 2023. Chest CT October 25, 2023. PET/CT November 23, 2023. FINDINGS: Elevation/eventration of the right hemidiaphragm appears increased although could be relate d to lordotic positioning. Left subclavian pacer is in place. There is cardiomegaly without evidence for pulmonary edema. A trace right pleural effusion is noted. There is no pneumothorax. No definite c onsolidation to suggest pneumonia. IMPRESSION: 1. Trace right pleural effusion. No pneumothorax. 2. Cardiomegaly. No evidence for pulmonary edema. 3. Elevation/eventration of the right hemidiaphragm. ACT 112: Negative or not required by law. Electronically signed by: Mando Garzon M.D. 12/21/2023 7:51 AM
[2023-12-21] MEDS: hydrOXYzine HCl 10 MG TAB PO PRN (08:03)
[2023-12-21] MEDS: ADVANCED PROBIOTIC 625 MG CAPSULE PO SCH (08:04)
[2023-12-21] MEDS: ATORVASTATIN 40 MG TAB PO SCH (08:04)
[2023-12-21] MEDS: MIDODRINE HCL 2.5 MG TAB PO SCH (08:07)
--- OUTSIDE RECORDS SUMMARY | 2023-12-21 08:52 | External Medical Summary | Summary of Care ---
Author Name Unknown Organization [facility] Address [address] [place] [address] Phone [phone] Care Team Providers Care Senior Service Technician Name Role Phone Jason West MD Primary Care Provider [phone] Reason for Visit * Reason Onset Date Comments Appointment 12/17/2023 Return in about 4 months (around 04/18/2024) for recheck. Encounter Details Date Type Department Care Team (Late st Contact Info) Description 12/17/2023 Telephone [facility] [address] [place] [address] Jason West MD [address] [place] [address] Appointment (Return in about 4 months (diane... Allergies Active Allergy Reactions Criticality Noted Date Comments Hydroxyzine Hcl 05/12/2012 halluzinating Cetirizine & Related 02/11/1999 HALLUCINATIONS documented as of this encounter (statuses as of 12/17/2023) Medications Medication Sig Dispensed Refills Start Date End Date Status MULTIVITAMIN/MILLWRIGHT APPRENTICE AL FORMULA TABS OR 1 TABLET DAILY 0 0 12/02/2001 Active SYSTANE PRESERVATIVE FREE 0.4-0.3 % OP SOLNIndications:Ot her anterior corneal dystrophies 1 gtt OU q2h WA 1 box 6 12/03/2008 Active CALCIUM 8984-9635 MG-UNIT PO CHEW Take 1 Tablet by mouth in the morning. 0 Active Cinnamon 500 MG Capsule Take 2 Capsules by mouth in the morning. 0 Active ONETOUCH ULTRASOFT LANCETS MISCIndications:DM type 2 causing renal disease ([facility]) Use as directed daily. Use up to four times a day as directed. Dx E11.9 3 Box Dosing Unit 3 09/13/2018 Active aspirin enteric coated 81 MG TBECIndications:Co ronary artery disease involving yuhaaviatam coronary artery of yuhaaviatam heart without angina pectoris Take 1 Tab [...] Tablet Sublingual (Nitrostat)Indicat ions:Coronary artery disease involving yuhaaviatam coronary artery of yuhaaviatam heart without angina pectoris,Old [place] (myocardial infarction) Place 1 Tablet under the tongue every 5 minutes as needed for Pain, Chest. 25 Tablet 5 09/03/2022 Active Apixaban 5 MG Oral Tablet (Eliquis)Indicatio ns:PAF (paroxysmal atrial fibrillation) ([facility]) Take 1 Tablet by mouth in the morning and 1 Tablet before bedtime. 180 Tablet 3 01/01/2023 Active Midodrine HCl 5 MG Oral Tablet (Proamatine)Indica tions:Chronic systolic heart failure (HCC),Coronary artery disease involving yuhaaviatam coronary artery of yuhaaviatam heart without angina pectoris TAKE 1 TAB BY MOUTH SHORTLY BEFORE OR UPON RISING IN THE MORNING, AT MIDDAY, AND IN THE LATE AFTERNOON (NO LATER THAN 6PM) 270 Tablet 3 03/25/2023 Active Insulin Pen Needle 32G X 5 MMIndications:DM type 2 causing renal disease, not at goal ([facility]) use to inject lantus twice per day 200 Each 3 03/26/2023 Active OneTouch Verio In Vitro Strip (Glucose Blood)Indications: DM type 2 causing renal disease ([facility]) Check blood sugars one time daily. Dx E11.9 300 Strip 2 05/03/2023 Active Atorvastatin Calcium 40 MG Oral Tablet (Lipitor)Indicatio ns:Coronary artery disease involving yuhaaviatam coronary artery of yuhaaviatam heart without angina pectoris,Dyslipide mona TAKE 1 TABLET DAILY IN THE MORNING 90 Tablet 3 05/27/2023 Active Insulin Glargine Solostar 100 UNIT/ML Subcutaneous Solution Pen-injector (Lantus SoloStar)Indicatio ns:DM type 2 causing renal disease, 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) INJECT 20 UNITS SUBCUTANEOUSLY TWICE DAILY 30 mL 2 07/08/2023 Active Digoxin 125 MCG Oral Tablet (Lanoxin)Indicatio ns:Chronic systolic heart failure (HCC),Coronary artery disease involving yuhaaviatam coronary artery of yuhaaviatam heart without angina pectoris Take 1 Tablet by mouth at bedtime. 90 Tablet 3 08/03/2023 Active oxyBUTYnin Chloride 5 MG Oral Tablet (Ditropan) TAKE 1 TABLET 2 TIMES DAILY 180 Tablet 3 09/22/2023 Active Metoprolol Succinate ER 100 MG Oral Tablet Extended Release 24 Hour (toPROL XL)Indications:Chr onic systolic heart failure (HCC) TAKE 1 AND 1/2 TABLETS BY MOUTH IN THE MORNING AND 1 TABLET IN THE EVENING 230 Tablet 3 09/22/2023 Active Torsemide 10 MG Oral Tablet (Demadex) Take 1 Tablet by mouth in the morning. 0 Active Advanced Probiotic Oral Capsule Take 1 Capsule by mouth daily. 0 Active glipiZIDE 5 MG Oral Tablet (Glucotrol) Take 1 Tablet by mouth in the morning and 1 Tablet before bedtime 30 minutes before a meal 180 Tablet 1 12/07/2023 Active Ketoconazole 2 % External Shampoo Apply topically to affected area every 3 days for 28 days. Shampoo twice a week for 4 weeks. 120 mL 1 12/17/2023 4 Active documented as of this encounter (statuses as of 12/17/2023) Active Problems Problem Noted Date Diagnosed Date 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 Chronic kidney disease, stage 3a 01/14/2021 Overview: Per CKD protocol Type 2 diabetes mellitus wit h stage 3a chronic kidney disease 12/10/2020 Overview: Per CKD protocol Chronic systolic heart failure 11/21/2020 DM type 2 causing renal disease, 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, in full remission 12/07/2018 Old AK (myocardial infarction) 03/31/2018 Heart failure, systolic, due to CAD 03/31/2018 Lymphedema of both lower extremities 03/31/2018 Dyslipidemia 02/18/2018 Coronary artery disease invo lving yuhaaviatam coronary artery of yuhaaviatam heart without angina pectoris 12/10/2017 PAF (paroxysmal atrial fibrillation) 12/10/2017 Type 2 diabetes mellitus wit h hemoglobin A1c goal of less than 8.0% 09/08/2013 Overview: ICD-10 update of inactive term DJD, CERVICAL SPINE 04/12/2002 GENERAL OSTEOARTHROSIS documented as of this encounter (statuses as of 12/17/2023) Resolved Problems Problem Noted Date Diagnosed Date [...] as of this encounter (statuses as of 12/17/2023) Immunizations Name Administration Dates Next Due COVID-19 mRNA, LNP-s, No Pre serve, 2-Dose Series ([employer]) 07/23/2021,11/14/2020,10/24/2020 COVID-19, MRNA-LNP, 23-24, P F, 30 MCG/0.3 mL, 12 YRS AND ABOVE, IM ([employer]Com[employer]) 05/26/2023 Covid-19, Mrna, Lnp-s, Pf, B ivalent, 30 Mcg, IM, 12 yrs and above ([employer]) 05/26/2022 Diptheria/Tetanus (Adult) 05/02/1992 Pneumococcal Conjugate Vacc, 13 Valent (Prevnar) 10/24/2014 Pneumococcal Polysaccharide PPV23 (Pneumovax) 12/28/2012,12/16/2006,09/30/2001,05/23 RSV Vac., Bivalent, Perfusio n F, Pf,0.5 Ml (Abrysvo) 06/09/2023 Seasonal Influenza Virus Vac cine, Unspecified Formulation 05/14/1998 Seasonal Influenza, PF, 6 M & above, IM , (FluLaval or Fluzone) 04/19/2020,04/04/2019 Seasonal Influenza, Quadriva lent Hd (Fluzone Hd) 05/26/2023 Seasonal Influenza, Quadriva lent Hd, 65+ Yrs 05/22/2022 Seasonal Influenza, Quadriva lent, No Preserve, IM 04/27/2018,06/16/2017,08/27/2016,04/23 Seasonal Influenza, Split, I IV3, With Preserve, Inj 04/23/2015,05/08/2014,05/02/2013,04/29,05/04/2011,05/23/2010,05/23/2010 ,05/17/2009,06/11/2008,06/24/2007,06/03,05/26/2005,06/19/2003, 1,07/12/2000,06/06/1999 Seasonal Influenza, Trivalen t, Adjuvanted, 65+ yrs 04/30/2021 TDAP (age 10 and older)(Boostrix) 06/29/2023 TDAP (age 11 and older)(Adacel) 02/28/2008 Unknown Immunization 2001 Zoster Vaccine Recombinant (Shingrix) 12/07/2018 ,06/28/2018 documented [...] encounter Miscellaneous Notes * Telephone Encounter - Jason West MD - 12/17/2023 4:27 PM EDT Please use 04/05/24 appt at 10 AM - 40 min * Telephone Encounter - Thu Banks OSA - 12/17/2023 1:40 PM EDT Per 12/17/2023 checkout notes: Return in about 4 months (around 04/18/2024) for recheck. Patient states we are to use a HD or FIELD ADMINISTRATIVE ASSISTANT appt slot. Please advise date and time for patient to return. 12/17/2023 documented in this encounter Plan of Treatment Upcoming Encounters Date Type Department Care Team (Late st Contact Info) Description 12/20/2023 2:00 PM EDT Office Visit Hematology/Oncology [facility] [address] [place] [phone] Marquez Kolb MD [address] [place] [address] 01/04/2024 2:25 PM EDT Office Visit Hematology/Oncology [facility] [address] [place] [id number] Marquez Kolb MD [address] [place] [address] 02/21/2024 9:30 AM EDT Office Visit Cardiology, [facility] [address] [place] [address] Aurelio Viera PA-C [address] [place] [address] 03/08/2024 10:00 AM EDT Cardiac Studies Cardiology, [facility] [address] [place] [address] [facility] [address] [place] [address] Health Maintenance Due Date Last Done Comments Hepatitis C Screening 1963 GFR 09/08/2023 03/08/2023, 03/0 09/2022, 01/13/2022, Additional history exists HbA1c 09/08/2023 03/08/2023, 03/0 09/2022, 01/13/2022, Additional history exists Albumin/Creatinine Ratio 10/03/202310/02/ 023, 08/28/2021, 11/18/2020, Additional history exists CKD PHOS USE SMARTSET 12309 10/03/2023 03/0 09/2022, 03/17/2021, 08/18/2019, Additional history exists CKD HGB USE SMARTSET 59320 03/08/202403/08, 10/02/2022, 07/29/2021, Additional history exists DIG LEVEL FOR MEDICATION MONITORING YEARLY 03/08/2024 03/08/2023, 10/02/2022, 07/29/2021 Diabetic Eye Exam 11/01/2024 11/02/2023, , 04/07/2019, Additional history exists Diabetic Foot Exam 11/01/2024 11/02/2023, 0 03/17/2021, 12/27/2019, Additional history exists DXA Scan 03/21/2026 03/21/2019, 07/02, 07/12/2013, Additional [...] as of this encounter Care Teams Senior Service Technician Relationship Specialty Start Date End Date Jason West MD [address] [place] [address] PCP - General 02/06/03 documented as of this encounter
--- OUTSIDE RECORDS SUMMARY | 2023-12-21 08:52 | External Medical Summary ---
Author Name Unknown Address Unknown Organization [id number]:LABORATORY [facility] - [address] [facility] [address] Laboratory Report Ordering Provider Test Date Status MELANIE CROWE 12/20/2023 10:04:50 Final Observation Date Value Abnormality Reference (Units ) Status Color of Urine by Auto 12/20/2023 10:04:50 Light Yellow Colorless, Light Yellow, Yellow, Dark Yellow Final Clarity, Urine 12/20/2023 10:04:50 Clear Clear Final Glucose [Mass/volume] in Urine by Automated test strip 12/20/2023 10:04:50 Negative Negative (mg/dL) Final Bilirubin.total [Presence] in Urine by Automated test strip 12/20/2023 10:04:50 Negative Negative Final Ketones [Mass/volume] in Urine by Automated test strip 12/20/2023 10:04:50 Negative Negative (mg/dL) Final Specific gravity, Urine 12/20/2023 10:04:50 1.016 1.003-1.030 Final Hemoglobin [Presence] in Urine by Automated test strip 12/20/2023 10:04:50 Negative Negative Final pH, Urine 12/20/2023 10:04:50 6.0 5.0-7.5 (Units) Final Protein [Mass/volume] in Urine by Automated test strip 12/20/2023 10:04:50 Negative Negative (mg/dL) Final Urobilinogen [Mass/volume] in Urine by Automated test strip 12/20/2023 10:04:50 Normal Normal (mg/dL) Final Nitrite [Presence] in Urine by Automated test strip 12/20/2023 10:04:50 Negative Negative Final Leukocyte esterase [Presence] in Urine by Automated test strip 12/20/2023 10:04:50 Moderate Abnormal Negative Final RBC, Urine 12/20/2023 10:04:50 0-2 0-2 (/HPF) Final WBC, Urine 12/20/2023 10:04:50 6-9 Abnormal 0-2 (/HPF) Final Bacteria [#/area] in Urine sediment by Microscopy high power field 12/20/2023 10:04:50 26-50 Abnormal 0-25 (/HPF) Final Hyaline casts, Urine 12/20/2023 10:04:50 1-4 Abnormal None (/LPF) Final Performing Location LABORATORY [facility] - [facility] [address] [facility] [address]
--- OUTSIDE RECORDS SUMMARY | 2023-12-21 08:52 | External Medical Summary | Summary of Care ---
Author Name Unknown Organization [facility] Address [address] [place] [address] Phone [phone] Care Team Providers Care Barker Operator Name Role Phone Jason West MD Primary Care Provider [phone]- [phone] Reason for Visit * Reason Onset Date Comments Appointment 12/17/2023 Return in about 4 months (around 04/18/2024) for recheck. Encounter Details Date Type Department Care Team (Late st Contact Info) Description 12/17/2023 Telephone [facility] [address] [place] [address] Jason West MD [address] [place] [address] Appointment (Return in about 4 months (diane... Allergies Active Allergy Reactions Criticality Noted Date Comments Hydroxyzine Hcl 05/12/2012 halluzinating Cetirizine & Related 02/11/1999 HALLUCINATIONS documented as of this encounter (statuses as of 12/17/2023) Medications Medication Sig Dispensed Refills Start Date End Date Status MULTIVITAMIN/COMPRESSOR OPERATOR PORTABLE AL FORMULA TABS OR 1 TABLET DAILY 0 0 12/02/2001 Active SYSTANE PRESERVATIVE FREE 0.4-0.3 % OP SOLNIndications:Ot her anterior corneal dystrophies 1 gtt OU q2h WA 1 box 6 12/03/2008 Active CALCIUM 3196-0239 MG-UNIT PO CHEW Take 1 Tablet by mouth in the morning. 0 Active Cinnamon 500 MG Capsule Take 2 Capsules by mouth in the morning. 0 Active ONETOUCH ULTRASOFT LANCETS MISCIndications:DM type 2 causing renal disease ([facility]) Use as directed daily. Use up to four times a day as directed. Dx E11.9 3 Box Dosing Unit 3 09/13/2018 Active aspirin enteric coated 81 MG TBECIndications:Co ronary artery disease involving mohegan coronary artery of mohegan heart without angina pectoris Take 1 Tab [...] Tablet Sublingual (Nitrostat)Indicat ions:Coronary artery disease involving mohegan coronary artery of mohe[place] heart without angina pectoris,Old [place] (myocardial infarction) Place 1 Tablet under the tongue every 5 minutes as needed for Pain, Chest. 25 Tablet 5 09/03/2022 Active Apixaban 5 MG Oral Tablet (Eliquis)Indicatio ns:PAF (paroxysmal atrial fibrillation) ([facility]) Take 1 Tablet by mouth in the morning and 1 Tablet before bedtime. 180 Tablet 3 01/01/2023 Active Midodrine HCl 5 MG Oral Tablet (Proamatine)Indica tions:Chronic systolic heart failure (HCC),Coronary artery disease involving mohegan coronary artery of mohegan heart without angina pectoris TAKE 1 TAB BY MOUTH SHORTLY BEFORE OR UPON RISING IN THE MORNING, AT MIDDAY, AND IN THE LATE AFTERNOON (NO LATER THAN 6PM) 270 Tablet 3 03/25/2023 Active Insulin Pen Needle 32G X 5 MMIndications:DM type 2 causing renal disease, not at goal ([facility]) use to inject lantus twice per day 200 Each 3 03/26/2023 Active OneTouch Verio In Vitro Strip (Glucose Blood)Indications: DM type 2 causing renal disease ([facility]) Check blood sugars one time daily. Dx E11.9 300 Strip 2 05/03/2023 Active Atorvastatin Calcium 40 MG Oral Tablet (Lipitor)Indicatio ns:Coronary artery disease involving mohegan coronary artery of mohegan heart without angina pectoris,Dyslipide mona TAKE 1 TABLET DAILY IN THE MORNING 90 Tablet 3 05/27/2023 Active Insulin Glargine Solostar 100 UNIT/ML Subcutaneous Solution Pen-injector (Lantus SoloStar)Indicatio ns:DM type 2 causing renal disease, 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) INJECT 20 UNITS SUBCUTANEOUSLY TWICE DAILY 30 mL 2 07/08/2023 Active Digoxin 125 MCG Oral Tablet (Lanoxin)Indicatio ns:Chronic systolic heart failure (HCC),Coronary artery disease involving mohegan coronary artery of mohegan heart without angina pectoris Take 1 Tablet [...] single episode, in full remission 12/07/2018 Old [place] (myocardial infarction) 03/31/2018 Heart failure, systolic, due to CAD 03/31/2018 Lymphedema of both lower extremities 03/31/2018 Dyslipidemia 02/18/2018 Coronary artery disease invo lving mohegan coronary artery of mohegan heart without angina pectoris 12/10/2017 PAF (paroxysmal [...] mRNA, LNP-s, No Pre serve, 2-Dose Series ([employer]) 07/23/2021,11/14/2020,10/24/2020 COVID-19, MRNA-LNP, 23-24, P F, 30 MCG/0.3 mL, 12 YRS AND ABOVE, IM (PFIZER-Comirnaty) 05/26/2023 Covid-19, Mrna, Lnp-s, Pf, B ivalent, [...] encounter Miscellaneous Notes * Telephone Encounter - Thu Banks OSA - 12/17/2023 1:40 PM EDT Per 12/17/2023 checkout notes: Return in about 4 months (around 04/18/2024) for recheck. Patient states we are to use a HD or GAMING DEPARTMENT HEAD appt slot. Please advise date and time for patient to return. 12/17/2023 documented in this encounter Plan of Treatment Upcoming Encounters Date Type Department Care Team (Late st Contact Info) Description 12/20/2023 2:00 PM EDT Office Visit Hematology/Oncology [facility] [address] [place] [phone] Marquez Kolb MD [address] [place] [address] 01/04/2024 2:25 PM EDT Office Visit [facility]ematology[facility] [facility] [place] [address] [place] [phone] Marquez Kolb MD [address] [place] [address] 02/21/2024 9:30 AM EDT Office Visit Cardiology, [facility] [address] [place] [address] Aurelio Viera PA-C [address] [place] [address] 03/08/2024 10:00 AM EDT Cardiac Studies Cardiology, [facility] [address] [place] [address] [facility] [address] [place] [address] Health Maintenance Due Date Last Done Comments Hepatitis C Screening 1963 GFR 09/08/2023 03/08/2023, 030 09/2022, 01/13/2022, Additional history exists HbA1c 09/08/2023 03/08/2023, 03/0 09/2022, 01/13/2022, Additional history exists Albumin/Creatinine Ratio 10/03/2023 023, 08/28/2021, 11/18/2020, Additional history exists CKD PHOS USE SMARTSET 30698 10/03/2023 03/0 09/2022, 03/17/2021, 08/18/2019, Additional history exists CKD HGB USE SMARTSET 75952 03/08/202403/08, 10/02/2022, 07/29/2021, Additional history exists DIG [...] filedocumented as of this encounter Care Teams Barker Operator Relationship Specialty Start Date End Date Jason West MD [address] [place] [address] PCP - General 02/06/03 documented as of this encounter
--- OUTSIDE RECORDS SUMMARY | 2023-12-21 08:52 | External Medical Summary | Summary of Care ---
Author Name Unknown Organization [facility] Address [address] [facility] [address] Phone [phone] Care Team Providers Care Heavy Duty Diesel Mechanic Name Role Phone Jason West MD Primary Care Provider +1- [phone] Reason for Visit * Reason Onset Date Comments Test Results Imaging Study 12/15/2023 Encounter Details Date Type Department Care Team (Late st Contact Info) Description 12/15/2023 Telephone [facility]ol[facility]ology [facility] [place] [address] Raymon Lord PA-C [address] [place] [address] Test Results Imaging Study Allergies Active Allergy Reactions Criticality Noted Date Comments Hydroxyzine Hcl 05/12/2012 halluzinating Cetirizine & Related 02/11/1999 HALLUCINATIONS documented as of this encounter (statuses as of 12/20/2023) Medications Medication Sig Dispensed Refills Start Date End Date Status MULTIVITAMIN/MINE RAL FORMULA TABS OR 1 TABLET DAILY 0 0 2 Active SYSTANE PRESERVATIVE FREE 0.4-0.3 % OP SOLNIndications:O ther anterior corneal dystrophies 1 gtt OU q2h WA 1 box 6 9 Active CALCIUM 0894-9108 MG-UNIT PO CHEW Take 1 Tablet by mouth in the morning. Active Cinnamon 500 MG Capsule Take 2 Capsules by mouth in the morning. Active ONETOUCH ULTRASOFT LANCETS MISCIndications:D M type 2 causing renal disease ([facility]) Use as directed daily. Use up to four times a day as directed. Dx E11.9 3 Box Dosing Unit 3 9 Active aspirin enteric coated 81 MG TBECIndications:C oronary artery disease involving [place] coronary artery of [place] heart without angina pectoris Take 1 Tab by mouth daily. 30 Tab 11 9 Active Loratadine 10 MG Oral Capsule Take 1 Capsule by mouth in the morning. Active Magnesium 400 MG Capsule Take 1 by mouth daily. 30 Cap 11 0 Active acetaminophen (TYLENOL) 325 MG Tablet 2 Tablets. 0 Active Nitroglycerin 0.4 MG Sublingual Tablet Sublingual (Nitrostat)Indica tions:Coronary artery disease involving [place] coronary artery of [place] heart without angina pectoris,Old [place] (myocardial infarction) Place 1 Tablet under the tongue every 5 minutes as needed for Pain, Chest. 25 Tablet 5 3 Active Apixaban 5 MG Oral Tablet (Eliquis)Indicati ons:PAF (paroxysmal atrial fibrillation) ([facility]) Take 1 Tablet by mouth in the morning and 1 Tablet before bedtime. 180 Tablet 3 3 Active Midodrine HCl 5 MG Oral Tablet (Proamatine)Indic ations:Chronic systolic heart failure (HCC),Coronary artery disease involving [place] coronary artery of [place] heart without angina pectoris TAKE 1 TAB BY MOUTH SHORTLY BEFORE OR UPON RISING IN THE MORNING, AT MIDDAY, AND IN THE LATE AFTERNOON (NO LATER THAN 6PM) 270 Tablet 3 3 Active Insulin Pen Needle 32G X 5 MMIndications:DM type 2 causing renal disease, not at goal ([facility]) use to inject lantus twice per day 200 Each 3 3 Active OneTouch Verio In Vitro Strip (Glucose Blood)Indications :DM type 2 causing renal disease ([facility]) Check blood sugars one time daily. Dx E11.9 300 Strip 2 3 Active Atorvastatin Calcium 40 MG Oral Tablet (Lipitor)Indicati ons:Coronary artery disease involving [place] coronary artery of [place] heart without angina pectoris,Dyslipid emia TAKE 1 TABLET DAILY IN THE MORNING 90 Tablet 3 3 Active Insulin Glargine Solostar 100 UNIT/ML Subcutaneous Solution Pen-injector (Lantus SoloStar)Indicati ons:DM type 2 causing renal disease, 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) INJECT 20 UNITS SUBCUTANEOUSLY TWICE DAILY 30 mL 2 3 Active Digoxin 125 MCG Oral Tablet (Lanoxin)Indicati ons:Chronic systolic heart failure (HCC),Coronary artery disease involving [place] coronary artery of [place] heart without angina pectoris Take 1 Tablet by mouth at bedtime. 90 Tablet 3 4 Active oxyBUTYnin Chloride 5 MG Oral Tablet (Ditropan) TAKE 1 TABLET 2 TIMES DAILY 180 Tablet 3 4 Active Metoprolol Succinate ER 100 MG Oral Tablet Extended Release 24 Hour (toPROL XL)Indications:Ch ronic systolic heart failure (HCC) TAKE 1 AND 1/2 TABLETS BY MOUTH IN THE MORNING AND 1 TABLET IN THE EVENING 230 Tablet 3 4 Active Torsemide 10 MG Oral Tablet (Demadex) Take 1 Tablet by mouth in the morning. Active Advanced Probiotic Oral Capsule Take 1 Capsule by mouth daily. Active glipiZIDE 5 MG Oral Tablet (Glucotrol) Take 1 Tablet by mouth in the morning and 1 Tablet before bedtime 30 minutes before a meal 180 Tablet 1 4 Active Pantoprazole Sodium 40 MG Oral Tablet Delayed Release (Protonix) Take 1 Tablet by mouth 2 times a day. 12/17/19 Discontinu ed(Medicat ion List Clean Up) Amoxicillin 500 MG Oral Capsule (Amoxil) Take 2 Capsules by mouth in the morning and 2 Capsules before bedtime. For 10 days. 12/17/19 Discontinu ed(Medicat ion List Clean Up) Clarithromycin 500 MG Oral Tablet (Biaxin) Take 1 Tablet by mouth in the morning and 1 Tablet before bedtime. For 10 days. 12/17/19 Discontinu ed(Medicat ion List Clean Up) documented as of this encounter (statuses as of 12/20/2023) Active Problems Problem Noted Date Diagnosed Date [...] Dyslipidemia 02/18/2018 Coronary artery disease invo lving shag[place] coronary artery of [place] heart without angina pectoris 12/10/2017 PAF (paroxysmal atrial fibrillation) 12/10/2017 Type 2 diabetes mellitus wit h hemoglobin A1c goal of less than 8.0% 09/08/2013 Overview: ICD-10 update of inactive term DJD, CERVICAL SPINE 04/12/2002 GENERAL OSTEOARTHROSIS documented as of this encounter (statuses as of 12/20/2023) Resolved Problems Problem Noted Date Diagnosed Date [...] as of this encounter (statuses as of 12/20/2023) Immunizations Name Administration Dates Next Due COVID-19 mRNA, LNP-s, No Pre serve, 2-Dose Series ([employer]) 07/23/2021,11/14/2020,10/24/2020 COVID-19, MRNA-LNP, 23-24, P F, 30 MCG/0.3 mL, 12 YRS AND ABOVE, IM ([employer]-Comirnat) 05/26/2023 Covid-19, Mrna, Lnp-s, Pf, B ivalent, [...] encounter Miscellaneous Notes * Telephone Encounter - Raymon Lord PA-C - 12/15/2023 11:38 AM EDT IMPRESSION: 1. Redemonstrated bilateral parotid lesions which have a homogeneous appearance. Consider tissue sampling for further evaluation. 2. No pathologically enlarged or necrotic cervical lymphadenopathy. documented in this encounter Plan of Treatment Upcoming Encounters Date Type Department Care Team (Late st Contact Info) Description 12/20/2023 2:00 PM EDT Office Visit Hematology/Oncology [facility] [address] [place] [phone] Marquez Kolb MD [address] [place] [address] 01/04/2024 2:25 PM EDT Office Visit Hematology/Oncology [facility] [place] [address] [place] [phone] Marquez Kolb MD [address] [facility] [place] [address] 02/21/2024 9:30 AM EDT Office Visit Cardiology, [facility] [address] [place] [address] Aurelio Viera PA-C [address] [place] [address] 03/08/2024 10:00 AM EDT Cardiac Studies Cardiology, [facility] [address] [facility] [place] [address] [place] [address] [facility] [place] [address] Health Maintenance Due Date Last Done Comments Hepatitis C Screening 1963 COVID-19 Vaccine (2022- season) 2023 05/26/2023, 05/26/2022, 07/23/2021, Additional history exists Albumin/Creatinine Ratio 10/03/2023 023, 08/28/2021, 11/18/2020, Additional history exists CKD PHOS USE SMARTSET 13525 10/03/2023 03/0 09/2022, 03/17/2021, 08/18/2019, Additional history exists DIG LEVEL FOR MEDICATION MONITORING YEARLY 03/08/2024 03/08/2023, 10/02/2022, 07/29/2021 GFR 06/18/2024 12/17/2023, 08/0 01/2023, 10/02/2022, Additional history exists HbA1c 06/18/2024 12/17/2023, 08/0 01/2023, 10/02/2022, Additional history exists Diabetic Eye Exam 11/01/2024 11/02/2023, , 04/07/2019, Additional history exists Diabetic Foot Exam 11/01/2024 11/02/2023, 0 03/17/2021, 12/27/2019, Additional history exists CKD HGB USE SMARTSET 17890 12/16/202412/16, 12/17/2023, 03/08/2023, Additional history exists DXA Scan 03/21/2026 03/21/2019, [...] filedocumented as of this encounter Care Teams Heavy Duty Diesel Mechanic Relationship Specialty Start Date End Date Jason West MD [address] [place] [address] PCP - General 02/06/03 documented as of this encounter
--- OUTSIDE RECORDS SUMMARY | 2023-12-21 08:52 | External Medical Summary | Summary of Care ---
Author Name Unknown Organization [facility] Address [address] [place] [facility] [place] [address] Phone [phone] Care Team Providers Care Computer Trainer Name Role Phone Jason West MD Primary Care Provider +1- [phone] Reason for Visit * Reason Onset Date Comments Appointment 12/17/2023 Return in about 4 months (around 04/18/2024) for recheck. Encounter Details Date Type Department Care Team (Late st Contact Info) Description 12/17/2023 Telephone [facility] [address] [place] [address] Jason West MD [address], [place] [phone] Appointment (Return in about 4 months (diane... Allergies Active Allergy Reactions Criticality Noted Date Comments Hydroxyzine Hcl 05/12/2012 halluzinating Cetirizine & Related 02/11/1999 HALLUCINATIONS documented as of this encounter (statuses as of 12/20/2023) Medications Medication Sig Dispensed Refills Start Date End Date Status MULTIVITAMIN/FRAME TABLE OPERATOR AL FORMULA TABS OR 1 TABLET DAILY 0 0 12/02/2001 Active SYSTANE PRESERVATIVE FREE 0.4-0.3 % OP SOLNIndications:Ot her anterior corneal dystrophies 1 gtt OU q2h WA 1 box 6 12/03/2008 Active CALCIUM 0881-4399 MG-UNIT PO CHEW Take 1 Tablet by mouth in the morning. Active Cinnamon 500 MG Capsule Take 2 Capsules by mouth in the morning. Active ONETOUCH ULTRASOFT LANCETS MISCIndications:DM type 2 causing renal disease ([facility]) Use as directed daily. Use up to four times a day as directed. Dx E11.9 3 Box Dosing Unit 3 09/13/2018 Active aspirin enteric coated 81 MG TBECIndications:Co ronary artery disease involving assiniboine and sioux coronary artery of assiniboine and sioux heart without angina pectoris Take 1 Tab by mouth daily. 30 Tab 11 07/17/2019 Active Loratadine 10 MG Oral Capsule Take 1 Capsule by mouth in the morning. Active Magnesium 400 MG Capsule Take 1 by mouth daily. 30 Cap 11 01/11/2020 Active acetaminophen (TYLENOL) 325 MG Tablet 2 Tablets. 04/13/2020 Active Nitroglycerin 0.4 MG Sublingual Tablet Sublingual (Nitrostat)Indicat ions:Coronary artery disease involving assiniboine and sioux coronary artery of assiniboine and sioux heart without angina pectoris,Old [place] (myocardial infarction) [...] systolic heart failure (HCC),Coronary artery disease involving assiniboine and sioux coronary artery of assiniboine and sioux heart without angina pectoris TAKE 1 TAB [...] Oral Tablet (Lipitor)Indicatio ns:Coronary artery disease involving assiniboine and sioux coronary artery of assiniboine and sioux heart without angina pectoris,Dyslipide mona TAKE 1 TABLET DAILY IN THE MORNING 90 Tablet 3 05/27/2023 Active Insulin Glargine Solostar 100 UNIT/ML Subcutaneous Solution Pen-injector (Lantus SoloStar)Indicatio ns:DM type 2 causing renal disease, 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) INJECT 20 UNITS SUBCUTANEOUSLY TWICE DAILY 30 mL 2 07/08/2023 Active Digoxin 125 MCG Oral Tablet (Lanoxin)Indicatio ns:Chronic systolic heart failure (HCC),Coronary artery disease involving assiniboine and sioux coronary artery of assiniboine and sioux heart without angina pectoris Take 1 Tablet [...] Dyslipidemia 02/18/2018 Coronary artery disease invo lving assiniboine and sioux coronary artery of assiniboine and sioux heart without angina pectoris 12/10/2017 PAF (paroxysmal [...] cular tachycardia) 12/10/2017 04/14/2019 Heart failure, systolic 11/17/20172 Body mass index (BMI) of 45. 0 [...] Overview: Per HTN Taxonomy Respiratory abnormality 11/26/1999 12/0 09/2012 Overview: ICD-10 update of inactive term [...] mRNA, LNP-s, No Pre serve, 2-Dose Series ([employer]) 07/23/2021,11/14/2020,10/24/2020 COVID-19, MRNA-LNP, 23-24, P F, 30 MCG/0.3 mL, 12 YRS AND ABOVE, IM ([employer]ui-Comirnat) 05/26/2023 Covid-19, Mrna, Lnp-s, Pf, B ivalent, 30 Mcg, IM, 12 yrs and above ([employer]) 05/26/2022 Diptheria/Tetanus (Adult) 05/02/1992 Pneumococcal Conjugate Vacc, [...] Telephone Encounter - Thu Banks OSA - 12/20/2023 9:47 AM EDT Requested via overbook group. Patient aware. 12/20/2023 * Telephone Encounter - Jason West MD - 12/17/2023 4:27 PM EDT Please use 04/05/24 appt at 10 AM - 40 min * Telephone Encounter - Thu Banks OSA - 12/17/2023 1:40 PM EDT Per 12/17/2023 checkout notes: Return in about 4 months (around 04/18/2024) for recheck. Patient states we are to use a HD or SHEET ROCKER appt slot. Please advise date and time for patient to return. 12/17/2023 documented in this encounter Plan of Treatment Upcoming Encounters Date Type Department Care Team (Late st Contact Info) Description 12/20/2023 2:00 PM EDT Office Visit Hematology/Oncology [facility] [address] [facility] [place] [phone] Marquez Kolb MD [address] [facility] [place] [address] 01/04/2024 2:25 PM EDT Office Visit Hematology/Oncology [facility] [address] [place] [phone] Marquez Kolb MD [address] [facility] [place] [address] 02/21/2024 9:30 AM EDT Office Visit Cardiology, [facility] [address] [place] [address] Aurelio Viera PA-C [address] [place] [address] 03/08/2024 10:00 AM EDT Cardiac Studies Cardiology, [facility] [address] [place] [address] [place] [address] [place] [address] Health Maintenance Due Date Last Done Comments Hepatitis C Screening 1963 COVID-19 Vaccine ( season) 2023 05/26/2023, 05/26/2022, 07/23/2021, Additional history exists Albumin/Creatinine Ratio 10/03/2023 023, 08/28/2021, 11/18/2020, Additional history exists CKD PHOS USE SMARTSET 07364 10/03/2023 03/0 09/2022, 03/17/2021, 08/18/2019, Additional history exists DIG LEVEL FOR MEDICATION MONITORING YEARLY 03/08/2024 03/08/2023, 10/02/2022, 07/29/2021 GFR 06/18/2024 12/17/2023, 08/0 01/2023, 10/02/2022, Additional history exists HbA1c 06/18/2024 12/17/2023, 08/0 01/2023, 10/02/2022, Additional history exists Diabetic Eye Exam 11/01/2024 11/02/2023, , 04/07/2019, Additional history exists Diabetic Foot Exam 11/01/2024 11/02/2023, 0 03/17/2021, 12/27/2019, Additional history exists CKD HGB USE SMARTSET 13584 12/16/202412/16, 12/17/2023, 03/08/2023, Additional history exists DXA [...] filedocumented as of this encounter Care Teams Computer Trainer Relationship Specialty Start Date End Date Jason West MD [address] [place] [address] PCP - General 02/06/03 documented as of this encounter
--- OUTSIDE RECORDS SUMMARY | 2023-12-21 08:52 | External Medical Summary | Summary of Care ---
Author Name Unknown Organization [facility] Address [address] [place] [address] Phone [phone] Care Team Providers Care Otorhinolaryngologist Name Role Phone Jason West MD Primary Care Provider [phone]- [phone] Reason for Visit * Reason Comments Outpatient Testing Encounter Details Date Type Department Care Team (Late st Contact Info) Description 12/20/2023 10:10 AM EDT Laboratory Laboratory, [place] [address] [place] [address] [place] [address] [place] [address] Arrived Allergies Active Allergy Reactions Criticality Noted Date Comments Hydroxyzine Hcl 05/12/2012 halluzinating Cetirizine & Related 02/11/1999 HALLUCINATIONS documented as of this encounter (statuses as of 12/20/2023) Medications Medication Sig Dispensed Refills Start Date End Date Status MULTIVITAMIN/MANAGER DOCUMENT AL FORMULA TABS OR 1 TABLET DAILY 0 0 12/02/2001 Active SYSTANE PRESERVATIVE FREE 0.4-0.3 % OP SOLNIndications:Ot her anterior corneal dystrophies 1 gtt OU q2h [place] 1 box 6 12/03/2008 Active CALCIUM 3946-8588 MG-UNIT PO CHEW Take 1 Tablet by mouth in the morning. Active Cinnamon 500 MG Capsule Take 2 Capsules by mouth in the morning. Active ONETOUCH ULTRASOFT LANCETS MISCIndications:DM type 2 causing renal disease ([facility]) Use as directed daily. Use up to four times a day as directed. Dx E11.9 3 Box Dosing Unit 3 09/13/2018 Active aspirin enteric coated 81 MG TBECIndications:Co ronary artery disease involving [place] coronary artery of [place] heart without angina pectoris Take 1 Tab by mouth daily. 30 Tab 11 07/17/2019 Active Loratadine 10 MG Oral Capsule Take 1 Capsule by mouth in the morning. Active Magnesium 400 MG Capsule Take 1 by mouth daily. 30 Cap 11 01/11/2020 Active acetaminophen (TYLENOL) 325 MG Tablet 2 Tablets. 04/13/2020 Active Nitroglycerin 0.4 MG Sublingual Tablet Sublingual (Nitrostat)Indicat ions:Coronary artery disease involving [place] coronary artery of [place] heart without angina pectoris,Old [place] (myocardial infarction) Place 1 Tablet under the tongue every 5 minutes as needed for Pain, Chest. 25 Tablet 5 09/03/2022 Active Apixaban 5 MG Oral Tablet (Eliquis)Indicatio ns:PAF (paroxysmal atrial fibrillation) ([facility]) Take 1 Tablet by mouth in the morning and 1 Tablet before bedtime. 180 Tablet 3 01/01/2023 Active Midodrine HCl 5 MG Oral Tablet (Proamatine)Indica tions:Chronic systolic heart failure (HCC),Coronary artery disease involving [place] coronary artery of [place] heart without angina pectoris TAKE 1 TAB BY MOUTH SHORTLY BEFORE OR UPON RISING IN THE MORNING, AT MIDDAY, AND IN THE LATE AFTERNOON (NO LATER THAN 6PM) 270 Tablet 3 03/25/2023 Active Insulin Pen Needle 32G X 5 MMIndications:DM type 2 causing renal disease, not at goal ([facility]) use to inject lantus twice per day 200 Each 3 03/26/2023 Active OneTouch Verio In Vitro Strip (Glucose Blood)Indications: DM type 2 causing renal disease ([facility]) Check blood sugars one time daily. Dx E11.9 300 Strip 2 05/03/2023 Active Atorvastatin Calcium 40 MG Oral Tablet (Lipitor)Indicatio ns:Coronary artery disease involving [place] coronary artery of [place] heart without angina pectoris,Dyslipide mona TAKE 1 TABLET DAILY IN THE MORNING 90 Tablet 3 05/27/2023 Active Insulin Glargine Solostar 100 UNIT/ML Subcutaneous Solution Pen-injector (Lantus SoloStar)Indicatio ns:DM type 2 causing renal disease, 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) INJECT 20 UNITS SUBCUTANEOUSLY TWICE DAILY 30 mL 2 07/08/2023 Active Digoxin 125 MCG Oral Tablet (Lanoxin)Indicatio ns:Chronic systolic heart failure (HCC),Coronary artery disease involving [place] coronary artery of [place] heart without angina pectoris Take 1 Tablet [...] single episode, in full remission 12/07/2018 Old [place] (myocardial infarction) 03/31/2018 Heart failure, systolic, due to CAD 03/31/2018 Lymphedema of both lower extremities 03/31/2018 Dyslipidemia 02/18/2018 Coronary artery disease invo lving [place] coronary artery of [place] heart without angina pectoris 12/10/2017 PAF (paroxysmal [...] mRNA, LNP-s, No Pre serve, 2-Dose Series (Water Innovate) 07/23/2021,11/14/2020,10/24/2020 COVID-19, MRNA-LNP, 23-24, P F, 30 MCG/0.3 mL, 12 YRS AND ABOVE, IM (Local Lift-Comirnat) 05/26/2023 Covid-19, Mrna, Lnp-s, Pf, B ivalent, [...] 12/20/2023 2:00 PM EDT Office Visit Hematology[facility] [place] [address] [place] [phone] Marquez Kolb MD [address] [place] [address] 01/04/2024 2:25 PM EDT Office Visit Hematology/On[facility] [place] [facility] [address] [place] [phone] Marquez Kolb MD [address] [facility] [place] [address] 02/21/2024 9:30 AM EDT Office Visit Cardiology, [facility] [address] [facility] [place] [address] Aurelio Viera PA-C [address] [facility] [place] [address] 03/08/2024 10:00 AM EDT Cardiac Studies Cardiology, [facility] 132 [facility] [place] [address] Delmar [address] [facility] 132 [facility] [place] [address] 04/05/2024 1:00 PM EDT Office Visit [facility] [address] [place] [phone] Jason West MD [address] [place] [address] Health Maintenance Due Date Last Done Comments Hepatitis C Screening 1963 COVID-19 Vaccine ( season) 2023 05/26/2023, 05/26/2022, 07/23/2021, Additional history exists Albumin/Creatinine Ratio 10/03/20232 023, 08/28/2021, 11/18/2020, Additional history exists CKD PHOS USE SMARTSET 88121 10/03/2023 03/0 09/2022, 03/17/2021, 08/18/2019, Additional history exists DIG LEVEL FOR MEDICATION MONITORING YEARLY 03/08/2024 03/08/2023, 10/02/2022, 07/29/2021 GFR 06/18/2024 12/17/2023, 08/0 01/2023, 10/02/2022, Additional history exists HbA1c 06/18/2024 12/17/2023, 08/0 01/2023, 10/02/2022, Additional history exists Diabetic Eye Exam 11/01/2024 11/02/2023, , 04/07/2019, Additional history exists Diabetic Foot Exam 11/01/2024 11/02/2023, 0 03/17/2021, 12/27/2019, Additional history exists CKD HGB USE SMARTSET 26108 12/16/202412/16, 12/17/2023, 03/08/2023, Additional history exists DXA [...] filedocumented as of this encounter Care Teams Otorhinolaryngologist Relationship Specialty Start Date End Date Jason West MD [address] [place] [address] PCP - General 02/06/03 documented as of this encounter
--- OUTSIDE RECORDS SUMMARY | 2023-12-21 08:52 | External Medical Summary | Summary of Care ---
Author Name Unknown Organization [facility] Address [address] [facility] [address] Phone [phone] Care Team Providers Care Survey Analyst Name Role Phone Jason West MD Primary Care Provider [phone]- [phone] Reason for Visit * Reason Onset Date Comments Test Results Imaging Study 12/15/2023 Encounter Details Date Type Department Care Team (Late st Contact Info) Description 12/15/[address] [facility] [place] [address] Raymon Lord PA-C [address] [place] [address] Test Results Imaging Study Allergies Active Allergy [...] WA 1 box 6 9 Active CALCIUM 5535-0070 MG-UNIT PO CHEW Take 1 Tablet by mouth in the morning. Active Cinnamon 500 MG Capsule Take 2 Capsules by mouth in the morning. Active ONETOUCH ULTRASOFT LANCETS MISCIndications:D M type 2 causing renal disease ([facility]) Use as directed daily. Use up to four times a day as directed. Dx E11.9 3 Box Dosing Unit 3 9 Active aspirin enteric coated 81 MG TBECIndications:C oronary artery disease involving [place] coronary artery of [place] heart without angina pectoris Take 1 Tab by mouth daily. 30 Tab 11 9 Active Loratadine 10 MG Oral Capsule Take 1 Capsule by mouth in the morning. Active Magnesium 400 MG Capsule Take 1 by mouth daily. 30 Cap 11 0 Active acetaminophen (TYLENOL) 325 MG Tablet 2 Tablets. 0 Active Nitroglycerin 0.4 MG Sublingual Tablet Sublingual (Nitrostat)Indica tions:Coronary artery disease involving [place] coronary artery of [place] heart without angina pectoris,Old [place] (myocardial infarction) Place 1 Tablet under the tongue every 5 minutes as needed for Pain, Chest. 25 Tablet 5 3 Active Apixaban 5 MG Oral Tablet (Eliquis)Indicati ons:PAF (paroxysmal atrial fibrillation) ([facility]) Take 1 Tablet by mouth in the morning and 1 Tablet before bedtime. 180 Tablet 3 3 Active Midodrine HCl 5 MG Oral Tablet (Proamatine)Indic ations:Chronic systolic heart failure (HCC),Coronary artery disease involving [place] coronary artery of [place] heart without angina pectoris TAKE 1 TAB [...] Oral Tablet (Lipitor)Indicati ons:Coronary artery disease involving [place] coronary artery of [place] heart without angina pectoris,Dyslipid emia TAKE 1 TABLET DAILY IN THE MORNING 90 Tablet 3 3 Active Insulin Glargine Solostar 100 UNIT/ML Subcutaneous Solution Pen-injector (Lantus SoloStar)Indicati ons:DM type 2 causing renal disease, 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) INJECT 20 UNITS SUBCUTANEOUSLY TWICE DAILY 30 mL 2 3 Active Digoxin 125 MCG Oral Tablet (Lanoxin)Indicati ons:Chronic systolic heart failure (HCC),Coronary artery disease involving [place] coronary artery of [place] heart without angina pectoris Take 1 Tablet [...] Dyslipidemia 02/18/2018 Coronary artery disease invo lving [place] coronary artery of [place] heart without angina pectoris 12/10/2017 PAF (paroxysmal [...] mRNA, LNP-s, No Pre serve, 2-Dose Series (SimpleOrder) 07/23/2021,11/14/2020,10/24/2020 COVID-19, MRNA-LNP, 23-24, P F, 30 MCG/0.3 mL, 12 YRS AND ABOVE, IM (OnePIN-Comirnat) 05/26/2023 Covid-19, Mrna, Lnp-s, Pf, B ivalent, 30 Mcg, IM, 12 yrs and above (SimpleOrder) 05/26/2022 Diptheria/Tetanus (Adult) 05/02/1992 Pneumococcal Conjugate Vacc, [...] encounter Miscellaneous Notes * Telephone Encounter - Mounika [place] LPN - 12/20/2023 9:02 AM EDT Pt has order for FNA. Please assist scheduling. * Telephone Encounter - Raymon Lord PA-C - 12/15/2023 11:38 AM EDT IMPRESSION: 1. Redemonstrated bilateral parotid lesions which have a homogeneous appearance. Consider tissue sampling for further evaluation. 2. No pathologically enlarged or necrotic cervical lymphadenopathy. documented in this encounter Plan of Treatment Upcoming Encounters Date Type Department Care Team (Late st Contact Info) Description 12/20/2023 2:00 PM EDT Office Visit Hematology/Oncology [facility] [address] [facility] [place] [phone] Marquez Kolb MD [address] [facility] [address] [place] [address] 01/04/2024 2:25 PM EDT Office Visit Hematology/Oncology [facility] [address] [facility] [place] [address] Marquez Kolb MD [address] [facility] [place] [address] 02/21/2024 9:30 AM EDT Office Visit Cardiology [facility] [address] [facility] [place] [address] Aurelio Viera PA-C [address] [place] [address] 03/08/2024 10:00 AM EDT Cardiac Studies Cardiology, [facility] [address] [place] [address] [facility] [address] [place] [address] Health Maintenance Due Date Last Done Comments Hepatitis C Screening 1963 COVID-19 Vaccine ( season) 2023 05/26/2023, 05/26/2022, 07/23/2021, Additional history exists Albumin/Creatinine Ratio 10/03/2023 023, 08/28/2021, 11/18/2020, Additional history exists CKD PHOS USE SMARTSET 09569 10/03/2023 03/0 09/2022, 03/17/2021, 08/18/2019, Additional history exists DIG LEVEL FOR MEDICATION MONITORING YEARLY 03/08/2024 03/08/2023, 10/02/2022, 07/29/2021 GFR 06/18/2024 12/17/2023, 08/0 01/2023, 10/02/2022, Additional history exists HbA1c 06/18/2024 12/17/2023, 08/0 01/2023, 10/02/2022, Additional history exists Diabetic Eye Exam 11/01/2024 11/02/2023, , 04/07/2019, Additional history exists Diabetic Foot Exam 11/01/2024 11/02/2023, 0 03/17/2021, 12/27/2019, Additional history exists CKD HGB USE SMARTSET 83868 12/16/202412/16, 12/17/2023, 03/08/2023, Additional history exists DXA [...] filedocumented as of this encounter Care Teams Survey Analyst Relationship Specialty Start Date End Date Jason West MD [address] [place] [address] PCP - General 02/06/03 documented as of this encounter
--- OUTSIDE RECORDS SUMMARY | 2023-12-21 08:52 | External Medical Summary | Summary of Care ---
Author Name Unknown Organization [facility] Address [address] [place] [address] Phone [phone] Care Team Providers Care Striker Off Name Role Phone Jason West MD Primary Care Provider +1- [phone] Reason for Visit * Reason Comments Outpatient Testing Encounter Details Date Type Department Care Team (Late st Contact Info) Description 12/17/2023 12:30 PM EDT Laboratory Laboratory, [place] [address] [place] [address] [place], [facility] [address] [place] [address] Dizziness; Tachy-barbra syndrome (HCC); Persistent atrial fibrillation (HCC); Difficulty breathing; Type 2 diabetes mellitus with hemoglobin A1c goal of less than 7.0% (HCC); Mass of both parotid glands Allergies Active Allergy Reactions Criticality Noted Date Comments Hydroxyzine Hcl 05/12/2012 halluzinating Cetirizine & Related 02/11/1999 HALLUCINATIONS documented as of this encounter (statuses as of 12/17/2023) Medications Medication Sig Dispensed Refills Start Date End Date Status MULTIVITAMIN/ROAD MACHINERY INSPECTOR AL FORMULA TABS OR 1 TABLET DAILY 0 0 12/02/2001 Active SYSTANE PRESERVATIVE FREE 0.4-0.3 % OP SOLNIndications:Ot her anterior corneal dystrophies 1 gtt OU q2h WA 1 box 6 12/03/2008 Active CALCIUM 6473-0894 MG-UNIT PO CHEW Take 1 Tablet by mouth in the morning. 0 Active Cinnamon 500 MG Capsule Take 2 Capsules by mouth in the morning. 0 Active ONETOUCH ULTRASOFT LANCETS MISCIndications:DM type 2 causing renal disease ([facility]) Use as directed daily. Use up to four times a day as directed. Dx E11.9 3 Box Dosing Unit 3 09/13/2018 Active aspirin enteric coated 81 MG TBECIndications:Co ronary artery disease involving [place] coronary artery of [place] heart without angina pectoris Take 1 Tab [...] Tablet Sublingual (Nitrostat)Indicat ions:Coronary artery disease involving [place] coronary artery of [place] heart without angina pectoris,Old [place] (myocardial infarction) Place 1 Tablet under the tongue every 5 minutes as needed for Pain, Chest. 25 Tablet 5 09/03/2022 Active Apixaban 5 MG Oral Tablet (Eliquis)Indicatio ns:PAF (paroxysmal atrial fibrillation) ([facility]) Take 1 Tablet by mouth in the morning and 1 Tablet before bedtime. 180 Tablet 3 01/01/2023 Active Midodrine HCl 5 MG Oral Tablet (Proamatine)Indica tions:Chronic systolic heart failure (HCC),Coronary artery disease involving [place] coronary artery of [place] heart without angina pectoris TAKE 1 TAB BY MOUTH SHORTLY BEFORE OR UPON RISING IN THE MORNING, AT MIDDAY, AND IN THE LATE AFTERNOON (NO LATER THAN 6PM) 270 Tablet 3 03/25/2023 Active Insulin Pen Needle 32G X 5 MMIndications:DM type 2 causing renal disease, not at goal ([facility]) use to inject lantus twice per day 200 Each 3 03/26/2023 Active OneTouch Verio In Vitro Strip (Glucose Blood)Indications: DM type 2 causing renal disease ([facility]) Check blood sugars one time daily. Dx E11.9 300 Strip 2 05/03/2023 Active Atorvastatin Calcium 40 MG Oral Tablet (Lipitor)Indicatio ns:Coronary artery disease involving [place] coronary artery of [place] heart without angina pectoris,Dyslipide mona TAKE 1 TABLET DAILY IN THE MORNING 90 Tablet 3 05/27/2023 Active Insulin Glargine Solostar 100 UNIT/ML Subcutaneous Solution Pen-injector (Lantus SoloStar)Indicatio ns:DM type 2 causing renal disease, 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) INJECT 20 UNITS SUBCUTANEOUSLY TWICE DAILY 30 mL 2 07/08/2023 Active Digoxin 125 MCG Oral Tablet (Lanoxin)Indicatio ns:Chronic systolic heart failure (HCC),Coronary artery disease involving [place] coronary artery of [place] heart without angina pectoris Take 1 Tablet [...] by mouth in the morning. 0 Active Pantoprazole Sodium 40 MG Oral Tablet Delayed Release (Protonix) Take 1 Tablet by mouth 2 times a day. 0 Active Advanced Probiotic Oral Capsule Take 1 Capsule by mouth daily. 0 Active Amoxicillin 500 MG Oral Capsule (Amoxil) Take 2 Capsules by mouth in the morning and 2 Capsules before bedtime. For 10 days. 0 Active Clarithromycin 500 MG Oral Tablet (Biaxin) Take 1 Tablet by mouth in the morning and 1 Tablet before bedtime. For 10 days. 0 Active glipiZIDE 5 MG Oral Tablet (Glucotrol) Take 1 Tablet by mouth in the morning and 1 Tablet before bedtime 30 minutes before a meal 180 Tablet 1 12/07/2023 Active documented as of this encounter (statuses [...] single episode, in full remission 12/07/2018 Old [place] (myocardial infarction) 03/31/2018 Heart failure, systolic, due to CAD 03/31/2018 Lymphedema of both lower extremities 03/31/2018 Dyslipidemia 02/18/2018 Coronary artery disease invo lving [place] coronary artery of [place] heart without angina pectoris 12/10/2017 PAF (paroxysmal [...] cular tachycardia) 12/10/2017 04/14/2019 Heart failure, systolic 11/17/2017/2 Body mass index (BMI) of 45. 0 [...] Overview: Per HTN Taxonomy Respiratory abnormality 11/26/1999 1209/2012 Overview: ICD-10 update of inactive term Allergic [...] mRNA, LNP-s, No Pre serve, 2-Dose Series (Chatalog) 07/23/2021,11/14/2020,10/24/2020 COVID-19, MRNA-LNP, 23-24, P F, 30 MCG/0.3 mL, 12 YRS AND ABOVE, IM ([facility]) 05/26/2023 Covid-19, Mrna, Lnp-s, Pf, B ivalent, 30 Mcg, IM, 12 yrs and above (Chatalog) 05/26/2022 Pneumococcal Conjugate Vacc, 13 Valent (Prevnar) [...] Team (Late st Contact Info) Description 12/17/2023 1:00 PM EDT Office Visit [facility] [address] [place] [address] Jason West MD [address] [facility] [place] [address] Risk and functional assessment* 12/20/2023 2:00 PM EDT Office Visit Hematology/Oncology [facility] [address] [place] [phone] Marquez Kolb MD [address] [place] [address] 01/04/2024 2:25 PM EDT Office Visit Hematology/Oncology [facility] [address] [place] [phone] Marquez Kolb MD [address] [place], [place] [address] 02/21/2024 9:30 AM EDT Office Visit Cardiology, [facility] [address] [facility] [place] [address] Aurelio Viera PA-C [facility] [place] [address] 03/08/2024 10:00 AM EDT Cardiac Studies Cardiology, [facility] [place] [address] [facility] [address] [facility] [place] [address] Pending Results Name Type Priority Associated Diagnoses Date /Time CBC WITH WBC DIFFERENTIAL Lab Routine Tachy-barbra syndrome (HCC) Persistent atrial fibrillation (HCC) Dizziness Difficulty breathing 12/17/2023 12:18 PM EDT HEMOGLOBIN A1C Lab Routine Type 2 diabetes mellitus with hemoglobin A1c goal of less than 7.0% (HCC) 12/17/2023 12:18 PM EDT CREATININE Lab Routine Mass of both parotid glands 12/17/2023 12:18 PM EDT CBC Lab Routine Tachy-barbra syndrome (HCC) Persistent atrial fibrillation (HCC) Dizziness Difficulty breathing 12/17/2023 12:18 PM EDT DIFFERENTIAL, AUTOMATED Lab Routine Tachy-barbra syndrome (HCC) Persistent atrial fibrillation (HCC) Dizziness Difficulty breathing 12/17/2023 12:18 PM EDT Health Maintenance Due Date Last Done Comments Hepatitis C Screening 1963 GFR 09/08/2023 03/08/2023, 03/0 09/2022, 01/13/2022, Additional history exists HbA1c 09/08/2023 03/08/2023, 03/0 09/2022, 01/13/2022, Additional history exists Albumin/Creatinine Ratio 10/03/202310/02/ 023, 08/28/2021, 11/18/2020, Additional history exists CKD PHOS USE SMARTSET 30570 10/03/2023 03/0 09/2022, 03/17/2021, 08/18/2019, Additional history exists CKD HGB USE SMARTSET 45586 03/08/202403/08, 10/02/2022, 07/29/2021, Additional history exists DIG [...] as of this encounter Visit Diagnoses Diagnosis Risk and functional assessment- Primary Screening for unspecified condition Dizziness Dizziness and giddiness Tachy-barbra syndrome (HCC) Sinoatrial node dysfunction Persistent atrial fibrillation (HCC) Atrial fibrillation Difficulty breathing Other dyspnea and respiratory abnormality Type 2 diabetes mellitus with hemoglobin A1c goal of less than 7.0% (HCC) Mass of both parotid glands documented in this encounter Care Teams Striker Off Relationship Specialty Start Date End Date Jason West MD [address] [place] [address] PCP - General 02/06/03 documented as of this encounter
--- OUTSIDE RECORDS SUMMARY | 2023-12-21 08:53 | External Medical Summary ---
Author Name Unknown Address Unknown Organization [id number]:LABORATORY [facility] - [address] [place] [address] Laboratory Report Ordering Provider Test Date Status MELANIE CROWE 12/17/2023 12:18:10 Final Observation Date Value Abnormality Reference (Units ) Status Vitamin B12 12/17/2023 12:18:10 [phone] (pg/mL) Final Performing Location LABORATORY [facility] - [address] [place] [address]
--- OUTSIDE RECORDS SUMMARY | 2023-12-21 08:53 | External Medical Summary ---
Author Name Unknown Address Unknown Organization K01:LABORATORY [facility] - [address] [facility] [address] Laboratory Report Ordering Provider Test Date Status JUAN J MONTOYA 12/17/2023 12:18:10 Final Observation Date Value Abnormality Reference (Units ) Status HbA1C 12/17/2023 12:18:10 6.5 Above high normal 4. 0-5.6 (%) Final The use of HbA1c to monitor glycemic status is based on normal hemoglobin and HbA composition. This test should not be used in patients with abnormal hemoglobin that affects the half life of the red blood cell or the in vivo glycation rates. Glucose, estimated average 12/17/2023 12:18:10 140 Above high normal <126 (mg/dL) Axel lopez Performing Location LABORATORY [facility] - [address] [facility] [address]
--- OUTSIDE RECORDS SUMMARY | 2023-12-21 08:53 | External Medical Summary ---
Author Name Unknown Address Unknown Organization K01:LABORATORY [facility] [place] - [address] [facility] [address] Laboratory Report Ordering Provider Test Date Status MELANIE CROWE 12/17/2023 12:18:10 Final Observation Date Value Abnormality Reference (Units ) Status Ferritin 12/17/2023 12:18:10 20 13-150 (ng /mL) Final Postmenopausal women have hi gher ferritin levels than pre-menopausal women. The above reference interval is based on pre-menopausal women. Performing Location LABORATORY [facility] - [address] [place] [address]
--- OUTSIDE RECORDS SUMMARY | 2023-12-21 08:53 | External Medical Summary ---
Author Name Unknown Address Unknown Organization [id number]:LABORATORY [facility] [place] - [facility] [address] [facility] [address] Laboratory Report Ordering Provider Test Date Status MELANIE CROWE 12/17/2023 12:18:10 Final Observation Date Value Abnormality Reference (Units ) Status WBC, Total 12/17/2023 12:18:10 10.24 4.00-10.80 (K/uL) Final RBC 12/17/2023 12:18:10 3.07 3.85-5.15 (M/uL) Final Hemoglobin 12/17/2023 12:18:10 7.1 Below low normal 12.0-15.3 (g/dL) Final HCT 12/17/2023 12:18:10 26.7 Below low normal 36.0-45.2 (%) Final MCV 12/17/2023 12:18:10 87.0 81.5-97.5 (fL) Final MCH 12/17/2023 12:18:10 23.1 27.0-34.0 (pg) Final MCHC 12/17/2023 12:18:10 26.6 32.0-36.0 (g/dL) Final RDW 12/17/2023 12:18:10 17.4 11.5-15.5 (%) Final Platelets 12/17/2023 12:18:10 478 Above high normal 140-400 (K/uL) Final MPV 12/17/2023 12:18:10 10.1 6.6-11.1 (fL) Final Nucleated erythrocytes/100 leukocytes [Ratio] in Blood by Automated count 12/17/2023 12:18:10 0 <=0 (/100 WBCs) Final Performing Location LABORATORY [facility] [place] - [address] [place] [address]
--- OUTSIDE RECORDS SUMMARY | 2023-12-21 08:53 | External Medical Summary ---
Author Name Unknown Address Unknown Organization [id number]:LABORATORY [facility] [place] - [address] [facility] [address] Laboratory Report Ordering Provider Test Date Status MELANIE CROWE 12/17/2023 12:18:10 Final Observation Date Value Abnormality Reference (Units ) Status SYNC LEUKOCYTES IN BLOOD BY AUTOMATED COUNT 12/17/2023 12:18:10 10.24 4.00-10.80 (K/uL) Final Segs 12/17/2023 12:18:10 71.9 40.0-75.0 (%) Final Lymphs % 12/17/2023 12:18:10 18.2 18.0-42.0 (%) Final Monos 12/17/2023 12:18:10 6.9 1.0-11.0 (%) Final Eosinophils 12/17/2023 12:18:10 1.5 0.0-6.0 (%) Final Basos 12/17/2023 12:18:10 1.0 0.0-2.0 (%) Final Immature Granulocyte, Percent 12/17/2023 12:18:10 0.5 0.0-2.0 (%) Final Absolute Segs 12/17/2023 12:18:10 7.37 1.80-7.70 (K/uL) Final Lymphs, absolute 12/17/2023 12:18:10 1.86 1.00-4.80 (K/ul) Final Monos, Abs 12/17/2023 12:18:10 0.71 0.00-1.10 (K/uL) Final Eos, Abs 12/17/2023 12:18:10 0.15 0.00-0.70 (K/uL) Final Basos, Abs 12/17/2023 12:18:10 0.10 0.00-0.20 (K/uL) Final Immature Granulocytes, Number 12/17/2023 12:18:10 0.05 0.00-0.20 (K/uL) Final Performing Location LABORATORY [facility] [place] - [facility] [address] [facility] [address]
--- OUTSIDE RECORDS SUMMARY | 2023-12-21 08:53 | External Medical Summary | Summary of Care ---
Author Name Unknown Organization [facility] Address [address] [place] [address] Phone [phone] Care Team Providers Care Reference Librarian Name Role Phone Jason West MD Primary Care Provider [phone]- [phone] Reason for Visit * Reason Onset Date Comments Test Results Imaging Study 12/15/2023 Encounter Details Date Type Department Care Team (Late st Contact Info) Description 12/15/2023 Telephone Otolaryngology [facility] [address] [place] [address] Raymon Lord PA-C [address] [place] [address] Test Results Imaging Study Allergies Active Allergy Reactions Criticality Noted Date Comments Hydroxyzine Hcl 05/12/2012 halluzinating Cetirizine & Related 02/11/1999 HALLUCINATIONS documented as of this encounter (statuses as of 12/15/2023) Medications Medication Sig Dispensed Refills Start Date End Date Status MULTIVITAMIN/STUDENT DEVELOPMENT SPECIALIST AL FORMULA TABS OR 1 TABLET DAILY 0 0 12/02/2001 Active SYSTANE PRESERVATIVE FREE 0.4-0.3 % OP SOLNIndications:Ot her anterior corneal dystrophies 1 gtt OU q2h WA 1 box 6 12/03/2008 Active CALCIUM 0848-2660 MG-UNIT PO CHEW Take 1 Tablet by mouth in the morning. 0 Active Cinnamon 500 MG Capsule Take 2 Capsules by mouth in the morning. 0 Active ONETOUCH ULTRASOFT LANCETS MISCIndications:DM type 2 causing renal disease ([facility]) Use as directed daily. Use up to four times a day as directed. Dx E11.9 3 Box Dosing Unit 3 09/13/2018 Active aspirin enteric coated 81 MG TBECIndications:Co ronary artery disease involving prairie band coronary artery of prairie band heart without angina pectoris Take 1 Tab [...] Tablet Sublingual (Nitrostat)Indicat ions:Coronary artery disease involving prairie band coronary artery of prairie band heart without angina pectoris,Old NE (myocardial infarction) Place 1 Tablet under the tongue every 5 minutes as needed for Pain, Chest. 25 Tablet 5 09/03/2022 Active Apixaban 5 MG Oral Tablet (Eliquis)Indicatio ns:PAF (paroxysmal atrial fibrillation) ([facility]) Take 1 Tablet by mouth in the morning and 1 Tablet before bedtime. 180 Tablet 3 01/01/2023 Active Midodrine HCl 5 MG Oral Tablet (Proamatine)Indica tions:Chronic systolic heart failure (HCC),Coronary artery disease involving prairie band coronary artery of prairie band heart without angina pectoris TAKE 1 TAB BY MOUTH SHORTLY BEFORE OR UPON RISING IN THE MORNING, AT MIDDAY, AND IN THE LATE AFTERNOON (NO LATER THAN 6PM) 270 Tablet 3 03/25/2023 Active Insulin Pen Needle 32G X 5 MMIndications:DM type 2 causing renal disease, not at goal ([facility]) use to inject lantus twice per day 200 Each 3 03/26/2023 Active OneTouch Verio In Vitro Strip (Glucose Blood)Indications: DM type 2 causing renal disease ([facility]) Check blood sugars one time daily. Dx E11.9 300 Strip 2 05/03/2023 Active Atorvastatin Calcium 40 MG Oral Tablet (Lipitor)Indicatio ns:Coronary artery disease involving prairie band coronary artery of prairie band heart without angina pectoris,Dyslipide mona TAKE 1 TABLET DAILY IN THE MORNING 90 Tablet 3 05/27/2023 Active Insulin Glargine Solostar 100 UNIT/ML Subcutaneous Solution Pen-injector (Lantus SoloStar)Indicatio ns:DM type 2 causing renal disease, not at goal ([facility]) INJECT 20 UNITS SUBCUTANEOUSLY TWICE DAILY 30 mL 2 07/08/2023 Active Digoxin 125 MCG Oral Tablet (Lanoxin)Indicatio ns:Chronic systolic heart failure (HCC),Coronary artery disease involving prairie band coronary artery of prairie band heart without angina pectoris Take 1 Tablet [...] as of this encounter (statuses as of 12/15/2023) Active Problems Problem Noted Date Diagnosed Date 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 Chronic kidney disease, stage 3a 01/14/2021 Overview: Per CKD protocol Type 2 diabetes mellitus wit h stage 3a chronic kidney disease 12/10/2020 Overview: Per CKD protocol Chronic systolic heart failure 11/21/2020 DM type 2 causing renal disease, 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, in full remission 12/07/2018 Old NE (myocardial infarction) 03/31/2018 Heart failure, systolic, due to CAD 03/31/2018 Lymphedema of both lower extremities 03/31/2018 Dyslipidemia 02/18/2018 Coronary artery disease invo lving prairie band coronary artery of prairie band heart without angina pectoris 12/10/2017 PAF (paroxysmal atrial fibrillation) 12/10/2017 Type 2 diabetes mellitus wit h hemoglobin A1c goal of less than 8.0% 09/08/2013 Overview: ICD-10 update of inactive term DJD, CERVICAL SPINE 04/12/2002 GENERAL OSTEOARTHROSIS documented as of this encounter (statuses as of 12/15/2023) Resolved Problems Problem Noted Date Diagnosed Date [...] as of this encounter (statuses as of 12/15/2023) Immunizations Name Administration Dates Next Due COVID-19 mRNA, LNP-s, No Pre serve, 2-Dose Series (SinCola) 07/23/2021,11/14/2020,10/24/2020 COVID-19, MRNA-LNP, 23-24, P F, 30 [...] Description 12/17/2023 1:00 PM EDT Office Visit [facility] [address] [facility], [place] [phone] Jason West MD [address] [place] [place] [address] 01/04/2024 2:25 PM EDT Office Visit Hematology/Oncology [facility] [address] [facility] [place] [phone] Marquez Kolb MD [address] [facility] [place] [address] 02/21/2024 9:30 AM EDT Office Visit Cardiology, [facility] [address] [place] [address] Aurelio Viera PA-C [address] [place] [address] 03/08/2024 10:00 AM EDT Cardiac Studies Cardiology, [facility] [place] [address] [facility] [address] [place] [address] Health Maintenance Due Date Last Done Comments Hepatitis C Screening 1963 GFR 09/08/2023 03/08/2023, 030 09/2022, 01/13/2022, Additional history exists HbA1c 09/08/2023 03/08/2023, 030 09/2022, 01/13/2022, Additional history exists Albumin/Creatinine Ratio 10/03/20232 023, 08/28/2021, 11/18/2020, Additional history exists CKD PHOS USE SMARTSET 67522 10/03/2023 03/0 09/2022, 03/17/2021, 08/18/2019, Additional history exists CKD HGB USE SMARTSET 33075 03/08/202403/08, 10/02/2022, 07/29/2021, Additional history exists DIG [...] filedocumented as of this encounter Care Teams Reference Librarian Relationship Specialty Start Date End Date Jason West MD [address] [place] [address] PCP - General 02/06/03 documented as of this encounter
--- OUTSIDE RECORDS SUMMARY | 2023-12-21 08:53 | External Medical Summary ---
Author Name Unknown Address Unknown Organization K01:LABORATORY [facility] [place] - [address] [place] [address] Laboratory Report Ordering Provider Test Date Status MELANIE CROWE 12/17/2023 12:18:10 Final Observation Date Value Abnormality Reference (Units ) Status Folic Acid 12/17/2023 12:18:10 >20.0 >4.5 (ng/ mL) Final Performing Location LABORATORY [facility] - [address] [place] [address]
--- OUTSIDE RECORDS SUMMARY | 2023-12-21 08:53 | External Medical Summary | Summary of Care ---
Author Name Unknown Organization [facility] Address [address] [place] [address] Phone [phone] Care Team Providers Care Programming Engineer Name Role Phone Jason West MD Primary Care Provider [phone]- [phone] Reason for Visit * Reason Comments Outpatient Testing Encounter Details Date Type Department Care Team (Late st Contact Info) Description 12/17/2023 12:30 PM EDT Laboratory Laboratory, [facility] [address] [place] [address] [facility] [address] [place] [address] Dizziness; Tachy-barbra syndrome (HCC); Persistent [...] Dispensed Refills Start Date End Date Status MULTIVITAMIN/CAMPUS COORDINATOR AL FORMULA TABS OR 1 TABLET DAILY 0 0 12/02/2001 Active SYSTANE PRESERVATIVE FREE 0.4-0.3 % OP SOLNIndications:Ot her anterior corneal dystrophies 1 gtt OU q2h WA 1 box 6 12/03/2008 Active CALCIUM 0292-6302 MG-UNIT PO CHEW Take 1 Tablet by mouth in the morning. 0 Active Cinnamon 500 MG Capsule Take 2 Capsules by mouth in the morning. 0 Active ONETOUCH ULTRASOFT LANCETS MISCIndications:DM type 2 causing renal disease ([facility]) Use as directed daily. Use up to four times a day as directed. Dx E11.9 3 Box Dosing Unit 3 09/13/2018 Active aspirin enteric coated 81 MG TBECIndications:Co ronary artery disease involving nikolai coronary artery of nikolai heart without angina pectoris Take 1 Tab [...] Tablet Sublingual (Nitrostat)Indicat ions:Coronary artery disease involving nikolai coronary artery of nikolai heart without angina pectoris,Old CT (myocardial infarction) Place 1 Tablet under the tongue every 5 minutes as needed for Pain, Chest. 25 Tablet 5 09/03/2022 Active Apixaban 5 MG Oral Tablet (Eliquis)Indicatio ns:PAF (paroxysmal atrial fibrillation) ([facility]) Take 1 Tablet by mouth in the morning and 1 Tablet before bedtime. 180 Tablet 3 01/01/2023 Active Midodrine HCl 5 MG Oral Tablet (Proamatine)Indica tions:Chronic systolic heart failure (HCC),Coronary artery disease involving nikolai coronary artery of nikolai heart without angina pectoris TAKE 1 TAB BY MOUTH SHORTLY BEFORE OR UPON RISING IN THE MORNING, AT MIDDAY, AND IN THE LATE AFTERNOON (NO LATER THAN 6PM) 270 Tablet 3 03/25/2023 Active Insulin Pen Needle 32G X 5 MMIndications:DM type 2 causing renal disease, not at goal ([facility]) use to inject lantus twice per day 200 Each 3 03/26/2023 Active OneTouch Verio In Vitro Strip (Glucose Blood)Indications: DM type 2 causing renal disease ([facility]) Check blood sugars one time daily. Dx E11.9 300 Strip 2 05/03/2023 Active Atorvastatin Calcium 40 MG Oral Tablet (Lipitor)Indicatio ns:Coronary artery disease involving nikolai coronary artery of nikolai heart without angina pectoris,Dyslipide mona TAKE 1 TABLET DAILY IN THE MORNING 90 Tablet 3 05/27/2023 Active Insulin Glargine Solostar 100 UNIT/ML Subcutaneous Solution Pen-injector (Lantus SoloStar)Indicatio ns:DM type 2 causing renal disease, 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) INJECT 20 UNITS SUBCUTANEOUSLY TWICE DAILY 30 mL 2 07/08/2023 Active Digoxin 125 MCG Oral Tablet (Lanoxin)Indicatio ns:Chronic systolic heart failure (HCC),Coronary artery disease involving nikolai coronary artery of nikolai heart without angina pectoris Take 1 Tablet [...] single episode, in full remission 12/07/[address] (myocardial infarction) 03/31/2018 Heart failure, systolic, due to CAD 03/31/2018 Lymphedema of both lower extremities 03/31/2018 Dyslipidemia 02/18/2018 Coronary artery disease invo lving nikolai coronary artery of nikolai heart without angina pectoris 12/10/2017 PAF (paroxysmal [...] mRNA, LNP-s, No Pre serve, 2-Dose Series (Exelis) 07/23/2021,11/14/2020,10/24/2020 COVID-19, MRNA-LNP, 23-24, P F, 30 MCG/0.3 mL, 12 YRS AND ABOVE, IM ([facility]) 05/26/2023 Covid-19, Mrna, Lnp-s, Pf, B ivalent, 30 Mcg, IM, 12 yrs and above (Exelis) 05/26/2022 Pneumococcal Conjugate Vacc, 13 Valent (Prevnar) [...] Description 12/17/2023 1:00 PM EDT Office Visit [facility] [address] [place] [phone] Jason West MD [address] [place] [address] Arrived 12/20/2023 2:00 PM EDT Office Visit Hematology/Oncology [facility] [address] [place] [phone] Marquez Kolb MD [address] [place] [address] 01/04/2024 2:25 PM EDT Office Visit Hematology/Oncology [facility] [place] [address] [place] [phone] Marquez Kolb MD [address] [place] [address] 02/21/2024 9:30 AM EDT Office Visit Cardiology, [facility] [address] [facility] [place] [address] Aurelio Viera PA-C [facility] [place] [address] 03/08/2024 10:00 AM EDT Cardiac Studies Cardiology, [facility] [address] [facility] [place] [address] [facility] [place] [address] Pending Results Name Type Priority Associated Diagnoses [...] Additional history exists CKD PHOS USE SMARTSET 13341 10/03/2023 03/0 09/2022, 03/17/2021, 08/18/2019, Additional history exists CKD HGB USE SMARTSET 23839 03/08/202403/08, 10/02/2022, 07/29/2021, Additional history exists DIG [...] as of this encounter Visit Diagnoses Diagnosis Dizziness Dizziness and giddiness Tachy-barbra syndrome (HCC) Sinoatrial node dysfunction Persistent atrial fibrillation (HCC) Atrial fibrillation Difficulty breathing Other dyspnea and respiratory abnormality Type 2 diabetes mellitus with hemoglobin A1c goal of less than 7.0% (HCC) Mass of both parotid glands documented in this encounter Care Teams Programming Engineer Relationship Specialty Start Date End Date Jason West MD [address] [place] [address] PCP - General 02/06/03 documented as of this encounter
--- OUTSIDE RECORDS SUMMARY | 2023-12-21 08:53 | External Medical Summary ---
Author Name Unknown Address Unknown Organization K01:LABORATORY [facility] [place] [facility] [address] [place] [address] Laboratory Report Ordering Provider Test Date Status MELANIE CROWE 12/17/2023 12:18:10 Final Observation Date Value Abnormality Reference (Units ) Status Retic, % (auto) 12/17/2023 12:18:10 4.42 Above high normal 0.80-1.90 (%) Final Reticulocytes, Absolute 12/17/2023 12:18:10 130.4 Above high normal 31.3-100.1 (K/uL) Final Reticulocyte fraction, immature 12/17/2023 12:18:10 29.9 Above high normal 2.5-20.6 (%) Final Reticulocyte HGB 12/17/2023 12:18:10 19.9 Below low normal 29.7-37.4 (pg) Final Performing Location LABORATORY [facility] [place] - [address] [place] [address]
--- OUTSIDE RECORDS SUMMARY | 2023-12-21 08:53 | External Medical Summary | Summary of Care ---
Author Name Unknown Organization [facility] Address [address] [place] [address] Phone [phone] Care Team Providers Care Bingo Checker Name Role Phone Jason West MD Primary Care Provider [phone]- [phone] Reason for Referral * Precert (Within 10 days (routine)) - Authorized Specialty Diagnoses / Procedures Referred By Contac t Referred To Contact Radiology Diagnoses Mass of both parotid glands Procedures CT NECK W CONTRAST Raymon Lord PA-C [address] [place] [address] Referral ID Status Reason Start Date Expiration Date V isits Requested Visits Authorized [id number] Authorized Precert 12/09/2023 06/06/2024 999 [id number] Reason for Visit * Precert (Within 10 days (routine)) - Authorized Specialty Diagnoses / Procedures Referred By Contgisela melo Referred To Contact Radiology Diagnoses Mass of both parotid glands Procedures CT NECK W CONTRAST Raymon Lord PA-C [address] [place] [address] Referral ID Status Reason Start Date Expiration Date V isits Requested Visits Authorized [id number] Authorized Precert 12/09/2023 06/06/2024 999 [id number] Encounter Details Date Type Department Care Team (Latest Contact Info) Description 12/14/2023 11:04 AM EDT - 12/14/2023 11:59 PM EDT Hospital Encounter Radiology, [facility] [address] [place] [address] Arrived Discharge Disposition: Home - Self Care Allergies Active Allergy Reactions Criticality Noted Date Comments Hydroxyzine Hcl 05/12/2012 halluzinating Cetirizine & Related 02/11/1999 HALLUCINATIONS documented as of this encounter (statuses as of 12/15/2023) Medications Medication Sig Dispensed Refills Start Date End Date Status MULTIVITAMIN/HEALTH AND WELLNESS COACH AL FORMULA TABS OR 1 TABLET DAILY 0 0 12/02/2001 Active SYSTANE PRESERVATIVE FREE 0.4-0.3 % OP SOLNIndications:Ot her anterior corneal dystrophies 1 gtt OU q2h WA 1 box 6 12/03/2008 Active CALCIUM 0175-5093 MG-UNIT PO CHEW Take 1 Tablet by mouth in the morning. 0 Active Cinnamon 500 MG Capsule Take 2 Capsules by mouth in the morning. 0 Active ONETOUCH ULTRASOFT LANCETS MISCIndications:DM type 2 causing renal disease ([facility]) Use as directed daily. Use up to four times a day as directed. Dx E11.9 3 Box Dosing Unit 3 09/13/2018 Active aspirin enteric coated 81 MG TBECIndications:Co ronary artery disease involving [place] coronary artery of [place] heart without angina pectoris Take 1 Tab [...] Tablet Sublingual (Nitrostat)Indicat ions:Coronary artery disease involving [place] coronary artery of [place] heart without angina pectoris,[place] (myocardial infarction) Place 1 Tablet under the tongue every 5 minutes as needed for Pain, Chest. 25 Tablet 5 09/03/2022 Active Apixaban 5 MG Oral Tablet (Eliquis)Indicatio ns:PAF (paroxysmal atrial fibrillation) ([facility]) Take 1 Tablet by mouth in the morning and 1 Tablet before bedtime. 180 Tablet 3 01/01/2023 Active Midodrine HCl 5 MG Oral Tablet (Proamatine)Indica tions:Chronic systolic heart failure (HCC),Coronary artery disease involving [place] coronary artery of [place] heart without angina pectoris TAKE 1 TAB BY MOUTH SHORTLY BEFORE OR UPON RISING IN THE MORNING, AT MIDDAY, AND IN THE LATE AFTERNOON (NO LATER THAN 6PM) 270 Tablet 3 03/25/2023 Active Insulin Pen Needle 32G X 5 MMIndications:DM type 2 causing renal disease, not at goal ([facility]) use to inject lantus twice per day 200 Each 3 03/26/2023 Active OneTouch Verio In Vitro Strip (Glucose Blood)Indications: DM type 2 causing renal disease ([facility]) Check blood sugars one time daily. Dx E11.9 300 Strip 2 05/03/2023 Active Atorvastatin Calcium 40 MG Oral Tablet (Lipitor)Indicatio ns:Coronary artery disease involving [place] coronary artery of [place] heart without angina pectoris,Dyslipide mona TAKE 1 TABLET DAILY IN THE MORNING 90 Tablet 3 05/27/2023 Active Insulin Glargine Solostar 100 UNIT/ML Subcutaneous Solution Pen-injector (Lantus SoloStar)Indicatio ns:DM type 2 causing renal disease, not at goal ([facility]) INJECT 20 UNITS SUBCUTANEOUSLY TWICE DAILY 30 mL 2 07/08/2023 Active Digoxin 125 MCG Oral Tablet (Lanoxin)Indicatio ns:Chronic systolic heart failure (HCC),Coronary artery disease involving [place] coronary artery of [place] heart without angina pectoris Take 1 Tablet [...] single episode, in full remission 12/07/2018 [place] (myocardial infarction) 03/31/2018 Heart failure, systolic, due to CAD 03/31/2018 Lymphedema of both lower extremities 03/31/2018 Dyslipidemia 02/18/2018 Coronary artery disease invo lving [place] coronary artery of [place] heart without angina pectoris 12/10/2017 PAF (paroxysmal [...] mRNA, LNP-s, No Pre serve, 2-Dose Series ([employer]) 07/23/2021,11/14/2020,10/24/2020 COVID-19, MRNA-LNP, 23-24, P F, 30 MCG/0.3 mL, 12 YRS AND ABOVE, IM ([facility]) 05/26/2023 Covid-19, Mrna, Lnp-s, Pf, B ivalent, [...] Description 12/17/2023 1:00 PM EDT Office Visit [facility] [address] [place] [facility] [place] [address] Jason West MD [address] [place] [address] 01/04/2024 2:25 PM EDT Office Visit [facility] [address] [facility] [place] [id number] Marquez Kolb MD [address] [facility] [place] [address] 02/21/2024 9:30 AM EDT Office Visit Cardiology, [facility] [address] [place] [address] Aurelio Viera PA-C [address] [place] [address] 03/08/2024 10:00 AM EDT Cardiac Studies Cardiology, [facility] [address] [place] [address] [place] [address] [place] [address] Health Maintenance Due Date Last Done Comments Hepatitis C Screening 1963 GFR 09/08/2023 03/08/2023, 030 09/2022, 01/13/2022, Additional history exists HbA1c 09/08/2023 03/08/2023, 03/0 09/2022, 01/13/2022, Additional history exists Albumin/Creatinine Ratio 10/03/2023 023, 08/28/2021, 11/18/2020, Additional history exists CKD PHOS USE SMARTSET 36678 10/03/2023 03/0 09/2022, 03/17/2021, 08/18/2019, Additional history exists CKD HGB USE SMARTSET 84446 03/08/202403/08, 10/02/2022, 07/29/2021, Additional history exists DIG [...] Procedure Name Priority Date/Time Associated Diagnosis Comments CT NECK W CONTRAST Routine 12/14/2023 11 :50 AM EDT Mass of both parotid glands documented in this encounter Results * CT NECK W CONTRAST (12/14/2023 11:50 AM EDT) Anatomical Region Laterality Modality Neck, Head, Sinus Computed Tomog viviana 12/14/2023 5:20 PM EDT Impressions 12/14/2023 5:18 PM EDT IMPRESSION: 1. Redemonstrated bilateral parotid lesions which have a homogeneous appearance. Consider tissue sampling for further evaluation. 2. No pathologically enlarged or necrotic cervical lymphadenopathy. Narrative 12/14/2023 5:18 PM EDT EXAM: CT NECK W CONTRAST 12/14/2023 HISTORY: bilateral parotid masses TECHNIQUE: Axial CT imaging of the neck was performed after administration of intravenous contrast. Coronal and sagittal reformats were processed. COMPARISON: PET CT dated 11/23/2023 FINDINGS: Redemonstrated bilateral parotid lesions which have a homogeneous appearance measuring 1.4 x 2.0 cm on the right and 1.4 x 0.9 cm on the left. No pathologically enlarged or necrotic cervical lymphadenopathy. Areas of calcification seen within the thyroid gland bilaterally. Submandibular glands are within normal limits. No acute abnormality involving the major neck vasculature. Right greater than left bilateral pleural effusions are partially visualized. Partially visualized left-sided pacer is present. No acute abnormality involving the visualized intracranial structures or orbits. Procedure Note Franc Garcia MD - 12/14/2023 EXAM: CT NECK W CONTRAST 12/14/2023 HISTORY: bilateral parotid masses TECHNIQUE: Axial CT imaging of the neck was performed after administration ofintravenous contrast. Coronal and sagittal reformats were processed. COMPARISON: PET CT dated 11/23/2023 FINDINGS: Redemonstrated bilateral parotid lesions which have a homogeneousappearance measuring 1.4 x 2.0 cm on the right and 1.4 x 0.9 cm on theleft. No pathologically enlarged or necrotic cervical lymphadenopathy. Areas ofcalcification seen within the thyroid gland bilaterally. Submandibularglands are within normal limits. No acute abnormality involving the major neck vasculature. Right greaterthan left bilateral pleural effusions are partially visualized. Partiallyvisualized left- sided pacer is present. No acute abnormality involving the visualized intracranial structures ororbits. IMPRESSION IMPRESSION: 1. Redemonstrated bilateral parotid lesions which have a homogeneousappearance. Consider tissue sampling for further evaluation. 2. No pathologically enlarged or necrotic cervical lymphadenopathy. Raymon Lord PA-C RAD CT documented in this encounter Visit Diagnoses Diagnosis Mass of both parotid glands documented in this encounter Administered Medications Inactive Administered Medications - up to 3 most recent administrations Medication Order MAR Action Action Date Dose Rate Site Iopamidol (Isovue 370) inj 100 mL 100 mL, Intravenous, ONCE, On Wed12/14/23 at 1153, For 1 dose, Radiology Medication Routing (Non-IR) Given 12/14/2023 11:53 AM EDT 75 mL documented in this encounter Care Teams Bingo Checker Relationship Specialty Start Date End Date Jason West MD [address] [place] [address] PCP - General 02/06/03 documented as of this encounter
--- OUTSIDE RECORDS SUMMARY | 2023-12-21 08:53 | External Medical Summary ---
Author Name Unknown Address Unknown Organization [id number]:LABORATORY [facility] [place] - [address] [place] [address] Laboratory Report Ordering Provider Test Date Status MELANIE CROWE 12/17/2023 12:18:10 Final Observation Date Value Abnormality Reference (Units ) Status Iron 12/17/2023 12:18:10 17 Below low normal 33-151 (ug/dL) Final Iron-binding capacity 12/17/2023 12:18:10 366 250-425 (ug/dL) Final Transferrin Sat % 12/17/2023 12:18:10 5 Below low normal 15-55 (%) Final Performing Location LABORATORY [facility] [place] - [address] [place] [address]
--- OUTSIDE RECORDS SUMMARY | 2023-12-21 08:53 | External Medical Summary ---
Author Name Unknown Address Unknown Organization K01:LABORATORY [place] [address] [place] [address] Laboratory Report Ordering Provider Test Date Status LEANNAALL 12/17/2023 12:18:10 Final Observation Date Value Abnormality Reference (Units ) Status Creatinine 12/17/2023 12:18:10 0.7 0.5-1.0 (mg/dL) Final Glomerular filtration rate/1.73 sq M.predicted [Volume Rate/Area] in Serum, Plasma or Blood by Creatinine-based formula (CKD-EPI) 12/17/2023 12:18:10 88 >=60 (mL/min) Final eGFR is calculated based on the CKD-EPI 2020 equation Performing Location LABORATORY [facility] [place] - [facility] [address] [place] [address]
--- OUTSIDE RECORDS SUMMARY | 2023-12-21 08:53 | External Medical Summary ---
Author Name Unknown Address Unknown Organization [id number]:LABORATORY [facility] [place] - [address] [place] [address] Laboratory Report Ordering Provider Test Date Status MELANIE CROWE 12/17/2023 12:18:10 Final Observation Date Value Abnormality Reference (Units ) Status TSH 12/17/2023 12:18:10 1.07 0.27-4.20 (uIU/mL) Final Performing Location LABORATORY [facility] [place] - [address] [place] [address]
--- OUTSIDE RECORDS SUMMARY | 2023-12-21 08:54 | External Medical Summary | Summary of Care ---
Author Name Unknown Organization [facility] Address [address] [place] [address] Phone [phone] Care Team Providers Care Lead Operator Name Role Phone Jason West MD Primary Care Provider +1- [phone] Reason for Visit * Reason Onset Date Comments Follow Up 11/22/2023 Encounter Details Date Type Department Care Team (Late st Contact Info) Description 11/22/2023 Telephone [facility] [address] [place] [address] Jason West MD [address] [place] [address] Follow Up Allergies Active Allergy Reactions Criticality Noted Date Comments Hydroxyzine Hcl 05/12/2012 halluzinating Cetirizine & Related 02/11/1999 HALLUCINATIONS documented as of this encounter (statuses as of 11/25/2023) Medications Medication Sig Dispensed Refills Start Date End Date Status MULTIVITAMIN/PRESS CLIPPER AL FORMULA TABS OR 1 TABLET DAILY 0 0 12/02/2001 Active SYSTANE PRESERVATIVE FREE 0.4-0.3 % OP SOLNIndications:Ot her anterior corneal dystrophies 1 gtt OU q2h WA 1 box 6 12/03/2008 Active CALCIUM 2961-7334 MG-UNIT PO CHEW Take 1 Tablet by [...] 81 MG TBECIndications:Co ronary artery disease involving [place] coronary artery of [place] heart without angina pectoris Take 1 Tab [...] Tablet Sublingual (Nitrostat)Indicat ions:Coronary artery disease involving [place] coronary artery of [place] heart without angina pectoris,[place] (myocardial infarction) [...] systolic heart failure (HCC),Coronary artery disease involving [place] coronary artery of [place] heart without angina pectoris TAKE 1 TAB [...] Oral Tablet (Lipitor)Indicatio ns:Coronary artery disease involving [place] coronary artery of [place] heart without angina pectoris,Dyslipide mona TAKE 1 TABLET DAILY IN THE MORNING 90 Tablet 3 05/27/2023 Active Insulin Glargine Solostar 100 UNIT/ML Subcutaneous Solution Pen-injector (Lantus SoloStar)Indicatio ns:DM type 2 causing renal disease, 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) INJECT 20 UNITS SUBCUTANEOUSLY TWICE DAILY 30 mL 2 07/08/2023 Active Digoxin 125 MCG Oral Tablet (Lanoxin)Indicatio ns:Chronic systolic heart failure (HCC),Coronary artery disease involving [place] coronary artery of [place] heart without angina pectoris Take 1 Tablet [...] before bedtime. For 10 days. 0 Active documented as of this encounter (statuses as of 11/25/2023) Active Problems Problem Noted Date Diagnosed Date [...] Dyslipidemia 02/18/2018 Coronary artery disease invo lving [place] coronary artery of [place] heart without angina pectoris 12/10/2017 PAF (paroxysmal atrial fibrillation) 12/10/2017 Type 2 diabetes mellitus wit h hemoglobin A1c goal of less than 8.0% 09/08/2013 Overview: ICD-10 update of inactive term DJD, CERVICAL SPINE 04/12/2002 GENERAL OSTEOARTHROSIS documented as of this encounter (statuses as of 11/25/2023) Resolved Problems Problem Noted Date Diagnosed Date [...] as of this encounter (statuses as of 11/25/2023) Immunizations Name Administration Dates Next Due COVID-19 mRNA, LNP-s, No Pre serve, 2-Dose Series ([employer]) 07/23/2021,11/14/2020,10/24/2020 COVID-19, MRNA-LNP, 23-24, P F, 30 MCG/0.3 mL, 12 YRS AND ABOVE, IM ([employer]Comir[employer]) 05/26/2023 Covid-19, Mrna, Lnp-s, Pf, B ivalent, [...] money to buy more. Never true 12/03/19 Within the past 12 months, t he [...] encounter Miscellaneous Notes * Telephone Encounter - Whitney Aranda MD - 11/25/2023 4:38 PM EDT PET scan results d/w pt by oncologist. * Telephone Encounter - Lissa Powell LPN - 11/23/2023 9:17 AM EDT Printed most recent results and placed on providers desk. * Telephone Encounter - Jason West MD - 11/22/2023 7:24 PM EDT Please check [facility] system if further details are available on the cultures from her bronchoscopy from last admission in September. We are waiting to see the results of AFB culture. documented in this encounter Plan of Treatment Upcoming Encounters Date Type Department Care Team (Late st Contact Info) Description 12/17/2023 1:00 PM EDT Office Visit [place] [address] [place] [phone] Jason West MD [address] [place] [address] 02/09/2024 3:00 PM EDT Office Visit Cardiology, [facility] [address] [place] [address] Aurelio Viera PA-C [address] [place] [address] 03/08/2024 10:00 AM EDT Cardiac Studies Cardiology, [facility] [address] [place] [address] [facility] [address] [place] [address] Health Maintenance Due Date Last Done Comments Hepatitis C Screening 1963 GFR 09/08/2023 03/08/2023, 09/2022, 01/13/2022, Additional history exists HbA1c 09/08/2023 03/08/2023, 0 09/2022, 01/13/2022, Additional history exists Albumin/Creatinine Ratio 10/03/2023 023, 08/28/2021, 11/18/2020, Additional history exists CKD PHOS USE SMARTSET 96996 10/03/2023 03/0 09/2022, 03/17/2021, 08/18/2019, Additional history exists CKD HGB USE SMARTSET 74527 03/08/202403/08, 10/02/2022, 07/29/2021, Additional history exists DIG [...] filedocumented as of this encounter Care Teams Lead Operator Relationship Specialty Start Date End Date Jason West MD [address] [place] [address] PCP - General 02/06/03 documented as of this encounter
--- OUTSIDE RECORDS SUMMARY | 2023-12-21 08:54 | External Medical Summary | Summary of Care ---
Author Name Unknown Organization [facility] Address [address] [place] [address] Phone [phone] Care Team Providers Care Lead Operator Name Role Phone Jason West MD Primary Care Provider +1- [phone] Encounter Details Date Type Department Care Team (Late st Contact Info) Description 11/24/2023 Telephone Hematology/Oncology, [address] [address] Marquez Kolb MD [address] [place] [address] Allergies Active Allergy Reactions Criticality Noted Date Comments Hydroxyzine Hcl 05/12/2012 halluzinating Cetirizine & Related 02/11/1999 HALLUCINATIONS documented as of this encounter (statuses as of 11/26/2023) Medications Medication Sig Dispensed Refills Start Date End Date Status MULTIVITAMIN/CHIEF STEWARD/STEWARDESS AL FORMULA TABS OR 1 TABLET DAILY 0 0 12/02/2001 Active SYSTANE PRESERVATIVE FREE 0.4-0.3 % OP SOLNIndications:Ot her anterior corneal dystrophies 1 gtt OU q2h WA 1 box 6 12/03/2008 Active CALCIUM 8980-0326 MG-UNIT PO CHEW Take 1 Tablet by [...] 81 MG TBECIndications:Co ronary artery disease involving [place] coronary artery of [place] heart without angina pectoris Take 1 Tab [...] Tablet Sublingual (Nitrostat)Indicat ions:Coronary artery disease involving [place] coronary artery of [place] heart without angina pectoris,Old [place] (myocardial infarction) Place 1 Tablet under the [...] systolic heart failure (HCC),Coronary artery disease involving [place] coronary artery of [place] heart without angina pectoris TAKE 1 TAB BY MOUTH SHORTLY BEFORE OR UPON RISING IN THE MORNING, AT MIDDAY, AND IN THE LATE AFTERNOON (NO LATER THAN 6PM) 270 Tablet 3 03/25/2023 Active Insulin Pen Needle 32G X 5 MMIndications:DM type 2 causing renal disease, not at goal ([facility]) use to inject lantus twice per day 200 Each 3 03/26/2023 Active OneTouch Verio In Vitro Strip (Glucose Blood)Indications: DM type 2 causing renal disease ([facility]) Check blood sugars one time daily. Dx E11.9 300 Strip 2 05/03/2023 Active glipiZIDE 5 MG Oral Tablet (Glucotrol) Take 1 Tablet by mouth in the morning and 1 Tablet before bedtime. 30 minutes before a meal. 180 Tablet 1 05/27/2023 Active Atorvastatin Calcium 40 MG Oral Tablet (Lipitor)Indicatio ns:Coronary artery disease involving [place] coronary artery of [place] heart without angina pectoris,Dyslipide mona TAKE 1 TABLET DAILY IN THE MORNING 90 Tablet 3 05/27/2023 Active Insulin Glargine Solostar 100 UNIT/ML Subcutaneous Solution Pen-injector (Lantus SoloStar)Indicatio ns:DM type 2 causing renal disease, 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) INJECT 20 UNITS SUBCUTANEOUSLY TWICE DAILY 30 mL 2 07/08/2023 Active Digoxin 125 MCG Oral Tablet (Lanoxin)Indicatio ns:Chronic systolic heart failure (HCC),Coronary artery disease involving [place] coronary artery of [place] heart without angina pectoris Take 1 Tablet [...] as of this encounter (statuses as of 11/26/2023) Active Problems Problem Noted Date Diagnosed Date 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 Chronic kidney disease, stage 3a 01/14/2021 Overview: Per CKD protocol Type 2 diabetes mellitus wit h stage 3a chronic kidney disease 12/10/2020 Overview: Per CKD protocol Chronic systolic heart failure 11/21/2020 DM type 2 causing renal disease, 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, in full remission 12/07/2018 [place] (myocardial infarction) 03/31/2018 Heart failure, systolic, due to CAD 03/31/2018 Lymphedema of both lower extremities 03/31/2018 Dyslipidemia 02/18/2018 Coronary artery disease invo lving [place] coronary artery of [place] heart without angina pectoris 12/10/2017 PAF (paroxysmal atrial fibrillation) 12/10/2017 Type 2 diabetes mellitus wit h hemoglobin A1c goal of less than 8.0% 09/08/2013 Overview: ICD-10 update of inactive term DJD, CERVICAL SPINE 04/12/2002 GENERAL OSTEOARTHROSIS documented as of this encounter (statuses as of 11/26/2023) Resolved Problems Problem Noted Date Diagnosed Date [...] as of this encounter (statuses as of 11/26/2023) Immunizations Name Administration Dates Next Due COVID-19 mRNA, LNP-s, No Pre serve, 2-Dose Series ([employer]) 07/23/2021,11/14/2020,10/24/2020 COVID-19, MRNA-LNP, 23-24, P F, 30 MCG/0.3 mL, 12 YRS AND ABOVE, IM ([employer]-Comirnaty) 05/26/2023 Covid-19, Mrna, Lnp-s, Pf, B ivalent, 30 Mcg, IM, 12 yrs and above ([employer]) 05/26/2022 Diptheria/Tetanus (Adult) 05/02/1992 Pneumococcal Conjugate Vacc, [...] encounter Miscellaneous Notes * Telephone Encounter - Tano Cole OSA - 11/26/2023 9:15 AM EDT Pt has been scheduled. DERRICK Clifton * Telephone Encounter - Raymon Lord PA-C - 11/25/2023 4:45 PM EDT Can offer 840 5/6 with me unless someone else has sooner. Thank you! 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] Scheduling please call pt to schedule documented in this encounter Plan of Treatment Upcoming Encounters Date Type Department Care Team (Late st Contact Info) Description 12/06/2023 8:40 AM EDT Office Visit Otolaryngology [facility] [address] [facility] [place] [address] Raymon Lord PA-C [address] [place] [address] 12/17/2023 1:00 PM EDT Office Visit [facility] [address] [place] [place] [phone] Jason West MD [address] [place] [address] 02/09/2024 3:00 PM EDT Office Visit Cardiology, [facility] [address] [place] [address] Aurelio Viera PA-C [address] [place] [address] 03/08/2024 10:00 AM EDT Cardiac Studies Cardiology, [facility] [address] [place] [address] [facility] [address] [place] [address] Health Maintenance Due Date Last Done Comments Hepatitis C Screening 1963 GFR 09/08/2023 03/08/2023, 03/0 09/2022, 01/13/2022, Additional history exists HbA1c 09/08/2023 03/08/2023, 03/0 09/2022, 01/13/2022, Additional history exists Albumin/Creatinine Ratio 10/03/20232 023, 08/28/2021, 11/18/2020, Additional history exists CKD PHOS USE SMARTSET 98473 10/03/2023 03/0 09/2022, 03/17/2021, 08/18/2019, Additional history exists CKD HGB USE SMARTSET 60288 03/08/202403/08, 10/02/2022, 07/29/2021, Additional history exists DIG [...] End Date Jason West MD [address] [place] [address] PCP - General 02/06/03 documented as of this encounter
--- OUTSIDE RECORDS SUMMARY | 2023-12-21 08:54 | External Medical Summary | Summary of Care ---
Author Name Unknown Organization [facility] Address [address] [place] [address] Phone [phone] Care Team Providers Care Viner Operator Name Role Phone Jason West MD Primary Care Provider [phone] Reason for Visit * Reason Comments Follow Up Encounter Details Date Type Department Care Team (Late st Contact Info) Description 12/13/2023 10:15 AM EDT Office Visit Hematology/Oncology [facility] [address] [facility] [place] [address] Marquez Kolb MD [address] [place] [address] Parotid mass*; Malignant neoplasm of lower third of esophagus (HCC) Allergies Active Allergy Reactions Criticality Noted Date Comments Hydroxyzine Hcl 05/12/2012 halluzinating Cetirizine & Related 02/11/1999 HALLUCINATIONS documented as of this encounter (statuses as of 12/13/2023) Medications Medication Sig Dispensed Refills Start Date End Date Status MULTIVITAMIN/ROTOR COIL TAPER AL FORMULA TABS OR 1 TABLET DAILY 0 0 12/02/2001 Active SYSTANE PRESERVATIVE FREE 0.4-0.3 % OP SOLNIndications:Ot her anterior corneal dystrophies 1 gtt OU q2h WA 1 box 6 12/03/2008 Active CALCIUM 5004-7172 MG-UNIT PO CHEW Take 1 Tablet by mouth in the morning. 0 Active Cinnamon 500 MG Capsule Take 2 Capsules by mouth in the morning. 0 Active ONETOUCH ULTRASOFT LANCETS MISCIndications:DM type 2 causing renal disease ([facility]) Use as directed daily. Use up to four times a day as directed. Dx E11.9 3 Box Dosing Unit 3 09/13/2018 Active aspirin enteric coated 81 MG TBECIndications:Co ronary artery disease involving [place] coronary artery of [place] heart without angina pectoris Take 1 Tab [...] Tablet Sublingual (Nitrostat)Indicat ions:Coronary artery disease involving [place] coronary artery of [place] heart without angina pectoris,Old [place] (myocardial infarction) Place 1 Tablet under the tongue every 5 minutes as needed for Pain, Chest. 25 Tablet 5 09/03/2022 Active Apixaban 5 MG Oral Tablet (Eliquis)Indicatio ns:PAF (paroxysmal atrial fibrillation) ([facility]) Take 1 Tablet by mouth in the morning and 1 Tablet before bedtime. 180 Tablet 3 01/01/2023 Active Midodrine HCl 5 MG Oral Tablet (Proamatine)Indica tions:Chronic systolic heart failure (HCC),Coronary artery disease involving [place] coronary artery of [place] heart without angina pectoris TAKE 1 TAB BY MOUTH SHORTLY BEFORE OR UPON RISING IN THE MORNING, AT MIDDAY, AND IN THE LATE AFTERNOON (NO LATER THAN 6PM) 270 Tablet 3 03/25/2023 Active Insulin Pen Needle 32G X 5 MMIndications:DM type 2 causing renal disease, not at goal ([facility]) use to inject lantus twice per day 200 Each 3 03/26/2023 Active OneTouch Verio In Vitro Strip (Glucose Blood)Indications: DM type 2 causing renal disease ([facility]) Check blood sugars one time daily. Dx E11.9 300 Strip 2 05/03/2023 Active Atorvastatin Calcium 40 MG Oral Tablet (Lipitor)Indicatio ns:Coronary artery disease involving [place] coronary artery of [place] heart without angina pectoris,Dyslipide mona TAKE 1 TABLET DAILY IN THE MORNING 90 Tablet 3 05/27/2023 Active Insulin Glargine Solostar 100 UNIT/ML Subcutaneous Solution Pen-injector (Lantus SoloStar)Indicatio ns:DM type 2 causing renal disease, not at goal ([facility]) INJECT 20 UNITS SUBCUTANEOUSLY TWICE DAILY 30 mL 2 07/08/2023 Active Digoxin 125 MCG Oral Tablet (Lanoxin)Indicatio ns:Chronic systolic heart failure (HCC),Coronary artery disease involving [place] coronary artery of [place] heart without angina pectoris Take 1 Tablet [...] as of this encounter (statuses as of 12/13/2023) Active Problems Problem Noted Date Diagnosed Date 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 Chronic kidney disease, stage 3a 01/14/2021 Overview: Per CKD protocol Type 2 diabetes mellitus wit h stage 3a chronic kidney disease 12/10/2020 Overview: Per CKD protocol Chronic systolic heart failure 11/21/2020 DM type 2 causing renal disease, 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, in full remission 12/07/2018 [place] (myocardial infarction) 03/31/2018 Heart failure, systolic, due to CAD 03/31/2018 Lymphedema of both lower extremities 03/31/2018 Dyslipidemia 02/18/2018 Coronary artery disease invo lving [place] coronary artery of [place] heart without angina pectoris 12/10/2017 PAF (paroxysmal atrial fibrillation) 12/10/2017 Type 2 diabetes mellitus wit h hemoglobin A1c goal of less than 8.0% 09/08/2013 Overview: ICD-10 update of inactive term DJD, CERVICAL SPINE 04/12/2002 GENERAL OSTEOARTHROSIS documented as of this encounter (statuses as of 12/13/2023) Resolved Problems Problem Noted Date Diagnosed Date [...] as of this encounter (statuses as of 12/13/2023) Immunizations Name Administration Dates Next Due COVID-19 mRNA, LNP-s, No Pre serve, 2-Dose Series ([employer]) 07/23/2021,11/14/2020,10/24/2020 COVID-19, MRNA-LNP, 23-24, P F, 30 [...] Sign Reading Time Taken Comments Blood Pressure 108/70 12/13/2023 10:23 AM EDT Pulse 102 12/13/2023 10:23 AM EDT Temperature 36.3 C (97.3 F) 12/13/2023 1 0:23 AM EDT Respiratory Rate 18 12/13/2023 10:2 3 AM EDT Oxygen Saturation 92% 12/13/2023 10: 23 AM EDT Inhaled Oxygen Concentration - - Weight 102.9 kg (226 lb 14.4 oz) 2023 10:23 AM EDT Height - - Body Mass Index 40.19 12/06/2023 8:47 AM EDT documented in this encounter Progress Notes * Marquez Kolb MD - 12/13/2023 10:09 AM EDT Outpatient Consult Note Data Source: Patient, Epic record. Data Source: Patient, Epic record. 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 Current Treatment: For discussion Previous Treatment: none Oncologic History : 78-year-old female with complicated past medical history including coronary artery disease, hypertension, hyperlipidemia, AFib on Eliquis, type 2 diabetes, heart failure with preserved ejection fraction and overactive bladder referred with the about diagnosis. She was admitted to [facility] between 10/21/23 - 10/27/23. Presented to the emergency department with chest pain, shortness of breath, headache. She has had some swallowing difficulties and weight loss. Swallowing difficulties had been present for few weeks. She had endoscopy done on 10/25/2023 which revealed There was a non obstructing janneth circumferential mass 2 cm in length. Endoscopic ultrasound was done on 11/12/2023 which revealed hypoechoic mass was found in the lower third of the esophagus. The lesion was almost circumferential. The endosonographic borders were well-defined, mass measured up to 10 mm in thickness, there was sonographic evidence suggesting invasion into the adventitia (Layer 5). There was no sign of significant e ndosonographic abnormality in the visualized portion of the liver, no lymphadenopathy seen. Biopsy from the masses consistent with moderately to poorly-differentiated adenocarcinoma with the mismatch repair proficient and HER2 Solomon negative FINAL DIAGNOSIS A. Stomach, biopsy: - Chronic gastritis with mild activity. - Helicobacter pylori immunohistochemistry stain: Positive. - Intestinal metaplasia, complete subtype. Negative for dysplasia. B. Stomach, cardia, biopsy: - Nonspecific chronic gastritis with moderate activity. - Helicobacter pylori immunohistochemistry stain: Negative. - No intestinal metaplasia identified. C. 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 - HER2/solomon overexpression: Negative (score 0). [employer]new Mismatch Repair (MMR) Immunohistochemistry Panel Results: Mismatch repair proficient (MMRp). Immunohistochemistry: MLH1 Protein: Intact. PMS2 Protein: Intact. MSH2 Protein: Intact. MSH6 Protein: Intact. Interpretation: Intact expression of all four proteins (MLH1, MSH2, MSH6 and PMS2) is present. The immunohistochemistry findings are not consistent with microsatellite instability. FISH analysis shows no evidence of HER2 amplification and as such this is considered a NEGATIVE result. [employer] PD-L1 LDT: Detected Total PD-L1 Expression: 30 (combined positive score). 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 She continues to complain generalized weakness and difficulty in swallowing solid food. Currently she is on soft diet with good tolerance. She denies any chest pain, shortness of breath, abdominal pain or distention, nausea, vomiting, fever, night sweats, bleeding, bruising, change in the bowel habits. She denies smoking or drinking. Family history significant for mother and father both were diagnosed of pancreatic cancer in their 80s. Mother at 84 and father at 81. One sister was diagnosed of brain tumor. Interval History: She is appointment with radiation therapy on 12/16/2023. She was also seen by Dr. Hernandez and planning for CT-guided biopsy of the right thyroid mass. She is also scheduled for the repeat CT scan on 12/14/2023. She continues to complain of difficulty in swallowing And generalized weakness. LABS/IMAGING: Results for orders placed or performed during the hospital encounter of 11/12/23 GLUCOSE METER, POINT OF CARE Result Value Ref Range Glucose Meter 202 (H) 70 - 120 mg/dL *Note: Due to a large number of results and/or encounters for the requested time period, some results have not been displayed. A complete set of results can be found in Results Review. REVIEW OF SYSTEMS: General: No Fever, chills, night sweats HEENT: No change in visual acuity, blurred or double vision. No epistaxis, facial pain, nasal discharge or change in hearing. Complain of dysphagia, no muscosal ulceration, or sores noted. Cardiovascular: No chest pain, BROWN, or palpitations Respiratory: No shortness of breath, cough, hemoptysis, or pleuritic chest pain Gastrointestinal: No abdominal pain, nausea, vomiting, diarrhea, rectal pain or bleeding Genitourinary: Denies Hematuria or dysuria Musculoskeletal: generalized weakness and fatigue Psychiatric: No vegetative signs of depression Endocrine: No symptoms of hypothyroidism or hyperglycemia Hematologic: No bleeding or lymph nodes noted As mentioned above, all of the systems were reviewed in full and are unremarkable. Past Medical History: Diagnosis Date DM type 2, goal A1C below 8.0 09/08/2013 Fam hx-cardiovas dis NEC Family history of diabetes mellitus Generalized osteoarthritis GERD (gastroesophageal reflux disease) Heart failure, systolic, due to CAD ([facility]) 03/31/2018 HTN, goal below 140/90 Menopause Mixed dyslipidemia Morbid Obesity, BMI not known Myalgia and myositis PAF (paroxysmal atrial fibrillation) ([facility]) 12/10/2017 Polymyalgia rheumatica ([facility]) Current Outpatient Medications Medication Sig Dispense Refill MULTIVITAMIN/MINERAL FORMULA TABS OR 1 TABLET DAILY 0 0 SYSTANE PRESERVATIVE FREE 0.4-0.3 % OP SOLN 1 gtt OU q2h WA 1 box 6 CALCIUM 1793-0813 MG-UNIT PO CHEW Take 1 Tablet by mouth in the morning. Cinnamon 500 MG Capsule Take 2 Capsules by mouth in the morning. ONETOUCH ULTRASOFT LANCETS MISC Use as directed daily. Use up to four times a day as directed. Dx E11.9 3 Box Dosing Unit 3 aspirin enteric coated 81 MG TBEC Take 1 Tab by mouth daily. 30 Tab 11 Loratadine 10 MG Oral Capsule Take 1 Capsule by mouth in the morning. Magnesium 400 MG Capsule Take 1 by mouth daily. 30 Cap 11 acetaminophen (TYLENOL) 325 MG Tablet 2 Tablets. Nitroglycerin 0.4 MG Sublingual Tablet Sublingual (Nitrostat) Place 1 Tablet under the tongue every5 minutes as needed for Pain, Chest. 25 Tablet 5 Apixaban 5 MG Oral Tablet (Eliquis) Take 1 Tablet by mouth in the morning and 1 Tablet before bedtime. 180 Tablet 3 Midodrine HCl 5 MG Oral Tablet (Proamatine) TAKE 1 TAB BY MOUTH SHORTLY BEFORE OR UPON RISING IN THE MORNING, AT MIDDAY, AND IN THE LATE AFTERNOON (NO LATER THAN 6PM) 270 Tablet 3 Insulin Pen Needle 32G X 5 MM use to inject lantus twice per day 200 Each 3 OneTouch Verio In Vitro Strip (Glucose Blood) Check blood sugars one time daily. Dx E11.9 300 Strip2 COVID-19 mRNA Vaccine 12 years and above Pfizer 30 MCG/0.3 ML IM SUSP Inject into a large muscle asdirected 0.3 mL 0 Fluzone High-Dose Quadrivalent 0.7 ML Suspension Prefilled Syringe (Influenza Vac High-Dose Quad (65 years and older)) Inject 0.7 ml intramuscularly as directed 0.7 mL 0 Atorvastatin Calcium 40 MG Oral Tablet (Lipitor) TAKE 1 TABLET DAILY IN THE MORNING 90 Tablet 3 Abrysvo 120 MCG/0.5ML Intramuscular Solution Reconstituted (RSV Pre-Fusion F A&B Vac Rcmb) inject as directed 1 Each 0 Insulin Glargine Solostar 100 UNIT/ML Subcutaneous Solution Pen-injector (Lantus SoloStar) INJECT 20 UNITS SUBCUTANEOUSLY TWICE DAILY 30 mL 2 Digoxin 125 MCG Oral Tablet (Lanoxin) Take 1 Tablet by mouth at bedtime. 90 Tablet 3 oxyBUTYnin Chloride 5 MG Oral Tablet (Ditropan) TAKE 1 TABLET 2 TIMES DAILY 180 Tablet 3 Metoprolol Succinate ER 100 MG Oral Tablet Extended Release 24 Hour (toPROL XL) TAKE 1 AND 1/2 TABLETS BY MOUTH IN THE MORNING AND 1 TABLET IN THE EVENING 230 Tablet 3 Torsemide 10 MG Oral Tablet (Demadex) Take 1 Tablet by mouth in the morning. Pantoprazole Sodium 40 MG Oral Tablet Delayed Release (Protonix) Take 1 Tablet by mouth 2 times a day. Advanced Probiotic Oral Capsule Take 1 Capsule by mouth daily. Amoxicillin 500 MG Oral Capsule (Amoxil) Take 2 Capsules by mouth in the morning and 2 Capsules before bedtime. For 10 days. (Patient not taking: Reported on 11/02/2023) Clarithromycin 500 MG Oral Tablet (Biaxin) Take 1 Tablet by mouth in the morning and 1 Tablet before bedtime. For 10 days. (Patient not taking: Reported on 12/06/2023) glipiZIDE 5 MG Oral Tablet (Glucotrol) Take 1 Tablet by mouth in the morning and 1 Tablet before bedtime 30 minutes before a meal 180 Tablet 1 No current facility-administered medications for this visit. Social History Tobacco Use Smoking status: Former Current packs/day: 0.00 Average packs/day: 1.5 packs/day for 35.0 years (52.5 ttl pk-yrs) Types: Cigarettes Start date: 08/12/1964 Quit date: 08/12/1999 Years since quittin.3 Smokeless tobacco: Never Tobacco comments: 10/25/98 Vaping Use Vaping Use: Never used Substance Use Topics Alcohol use: Not Currently Drug use: No Review of patient's allergies indicates: Allergen Reactions Atarax [Hydroxyzine Hcl] halluzinating Cetirizine & Related HALLUCINATIONS PHYSICAL EXAMINATION: General Appearance: Healthy appearing patient in no acute distress There were no vitals taken for this visit. Vitals reviewed. HEENT: No oral or pharyngeal masses, ulceration or thrush noted, no sinus tenderness. Neck is supple with no thyromegaly or JVD noted. Lymph Nodes: No lymphadenopathy noted in the occipital, pre and post auricular, cervical, supra andinfraclavicular, axillary, epitrochlear, inguinal, and popliteal region. Lungs/Thorax: Clear to auscultation, no accessory muscles of respiration being used. Heart: Regular rate and rhythm, normal S1, S2 Abdomen: Soft, nontender, bowel sounds present, no appreciable hepatosplenomegaly, no palpable masses Extremeties: Good pulses bilaterally, bilateral lower extremity lymphedema ASSESSMENT: 78-year-old female with complicated past medical history including coronary artery disease, hypertension, hyperlipidemia, AFib on Eliquis, type 2 diabetes, heart failure with preserved ejection fraction and overactive bladder referred fatigue diagnosis of GE junction adenocarcinoma. She presented with complaint of generalized weakness, shortness of breath and difficulty in swallowing and weight loss she would endoscopy done which revealed GE junction tumor and biopsy was positive for moderatelyto poorly differentiated adenocarcinoma with mismatch repair proficient and HER2 Solomon negative. [id number] was 30 CPS. Endo sonographic ultrasound revealed T3 N 0 disease. 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 She was seen by Dr. Hernandez who is plan for CT-guided biopsy of the para-aortic lesion. She is also scheduled for the repeat CT scan. She also has appointment with Radiation Oncology on 12/16/2023. Discussed with the patient about diagnosis reviewed all the available reports with her. She wants to wait for the biopsy result from the parotid gland and also discuss with Radiation before make final decision about the treatment. I think her esophageal cancer is more aggressive and should be treated 1st with the chemotherapy concurrent with radiation therapy. PLAN: Return to clinic in 3 weeks The patient voiced understanding of all of the above. All questions and concerns were addressed in an apparently satisfactory manner. Marquez Kolb MD (This note was completed using the dictation program Fluency Direct. As such, there may be misspellings, word substitutions, or other variations that should not change the essence of the clinical content of this encounter note. If there is need for further clarification, please direct questions to me.) documented in this encounter Nursing Notes * Annie Paz MED ASSIST - 12/13/2023 10:24 AM EDT Patient identifed by name and birthdate Do you have any concerns about pain management for today's visit? Yes. Patient instructed to discuss pain concerns with provider during the visit today Living Will or Advance Directive for Health Care as noted on the problem list. [facility] is a way you can talk to your provider on line through e-mail. Would you like to sign up? I can activate it for you? ALREADY ACTIVE Filed Vitals: 12/13/23 1023 BP: 108/70 Pulse: 102 Resp: 18 Temp: 36.3 C (97.3 F) TempSrc: Tympanic SpO2: 92% Weight: 102.9 kg (226 lb 14.4 oz) Patient was instructed to not get up on the exam table/exam chair until directed and assisted by their provider; patient is to remain seated in the chair/ wheelchair/ exam table/ exam chair for fall prevention and safety reasons. Patient is aware to have assistance to step down off exam table/exam chair with personnel. Patient voiced full comprehension of instructions. Pt reported uncontrollable shaking of the hands Tingling and numbness documented in this encounter Plan of Treatment Upcoming Encounters Date Type Department Care Team (Late st Contact Info) Description 12/14/2023 11:30 AM EDT Hospital Encounter Radiology, [address] [place] [address] 12/17/2023 1:00 PM EDT Office [facility] [address] [phone] Jason West [facility] [address] [facility] [address] 01/04/2024 2:25 PM EDT Office Visit Hematology/Oncology [facility] [address] [facility] [employer] [phone] Marquez Kolb MD [address] [facility] [place] [employer] [place] [address] 02/21/2024 9:30 AM EDT Office Visit Cardiology, [facility] [address] [place] [address] Aurelio Viera PA-Clotilde [address] [place] [address] 03/08/2024 10:00 AM EDT Cardiac Studies Cardiology, [facility] [address] [place] [address] [facility] [address] [place] [address] Health Maintenance Due Date Last Done Comments Hepatitis C Screening 1963 GFR 09/08/2023 03/08/2023, 09/2022, 01/13/2022, Additional history exists HbA1c 09/08/2023 03/08/2023, 09/2022, 01/13/2022, Additional history exists Albumin/Creatinine Ratio 10/03/2023 023, 08/28/2021, 11/18/2020, Additional history exists CKD PHOS USE SMARTSET 11022 10/03/20230 09/2022, 03/17/2021, 08/18/2019, Additional history exists CKD HGB USE SMARTSET 84471 03/08/202403/08, 10/02/2022, 07/29/2021, Additional history exists DIG [...] as of this encounter Visit Diagnoses Diagnosis Parotid mass- Primary Swelling, mass, or lump in head and neck 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
--- OUTSIDE RECORDS SUMMARY | 2023-12-21 08:54 | External Medical Summary | Summary of Care ---
Author Name Unknown Organization [facility] Address [address] [place] [address] Phone [phone] Care Team Providers Care Sales Representative Publications Name Role Phone Jason Arita MD Primary Care Provider [phone] Reason for Visit * Reason Onset Date Comments Medication Refill 12/06/2023 Encounter Details Date Type Department Care Team (Late st Contact Info) Description 12/06/2023 Refill [facility] Practice [facility] [address] [facility] [address] Jason Arita MD [address] [place] [address] Allergies Active Allergy Reactions Criticality Noted Date Comments Hydroxyzine Hcl 05/12/2012 halluzinating Cetirizine & Related 02/11/1999 HALLUCINATIONS documented as of this encounter (statuses as of 12/07/2023) Medications Medication Sig Dispensed Refills Start Date End Date Status MULTIVITAMIN/MINE RAL FORMULA TABS OR 1 TABLET DAILY 0 0 2 Active SYSTANE PRESERVATIVE FREE 0.4-0.3 % OP SOLNIndications:O ther anterior corneal dystrophies 1 gtt OU q2h WA 1 box 6 9 Active CALCIUM 8718-7661 MG-UNIT PO CHEW Take 1 Tablet by [...] 81 MG TBECIndications:C oronary artery disease involving the [place] coronary artery of [place] heart without angina pectoris Take 1 Tab [...] Tablet Sublingual (Nitrostat)Indica tions: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 25 Tablet 5 3 Active Apixaban 5 MG Oral Tablet (Eliquis)Indicati ons:PAF (paroxysmal atrial fibrillation) ([facility]) Take 1 Tablet by mouth in the morning and 1 Tablet before bedtime. 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 180 Tablet 1 4 Active glipiZIDE 5 MG Oral Tablet (Glucotrol) Take 1 Tablet by mouth in the morning and 1 Tablet before bedtime. 30 minutes before a meal. 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 Chronic kidney disease, stage 3a 01/14/2021 Overview: Per CKD protocol Type 2 diabetes mellitus wit h stage 3a chronic kidney disease 12/10/2020 Overview: Per CKD protocol Chronic systolic heart failure 11/21/2020 DM type 2 causing renal disease, 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, in full remission 12/07/2018 Old MT (myocardial infarction) 03/31/2018 Heart failure, systolic, due to CAD 03/31/2018 Lymphedema of both lower extremities 03/31/2018 Dyslipidemia 02/18/2018 Coronary artery disease invo lving the [place] coronary artery of [place] heart without angina pectoris 12/10/2017 PAF (paroxysmal atrial fibrillation) 12/10/2017 Type 2 diabetes mellitus wit h hemoglobin A1c goal of less than 8.0% 09/08/2013 Overview: ICD-10 update of inactive term DJD, CERVICAL SPINE 04/12/2002 GENERAL OSTEOARTHROSIS documented as of this encounter (statuses as of 12/07/2023) Resolved Problems Problem Noted Date Diagnosed Date [...] cular tachycardia) 12/10/2017 04/14/2019 Heart failure, systolic 11/17/2017/ Body mass index (BMI) of 45. 0 [...] as of this encounter (statuses as of 12/07/2023) Immunizations Name Administration Dates Next Due COVID-19 mRNA, LNP-s, No Pre serve, 2-Dose Series (M[employer]) 07/23/2021,11/14/2020,10/24/2020 COVID-19, MRNA-LNP, 23-24, P F, 30 MCG/0.3 mL, 12 YRS AND ABOVE, IM ([employer] Your [employer]-Comirnat) 05/26/2023 Covid-19, Mrna, Lnp-s, Pf, B ivalent, [...] encounter Miscellaneous Notes * Telephone Encounter - Jd Rojas, [facility] - 12/07/2023 4:51 PM EDT Signed Prescriptions: Disp Refills glipiZIDE 5 MG Oral Tablet (Glucotrol) 180 Ta*1 Sig: Take 1 Tablet by mouth in the morning and 1 Tablet before bedtime. 30 minutes before a meal.Authorizing Provider: JASON ARITA User: JD ROJAS documented in this encounter Plan of Treatment Upcoming Encounters Date Type Department Care Team (Late st Contact Info) Description 12/13/2023 10:15 AM EDT [facility] [place] [address] [facility] [place] [phone] Marquez Kolb MD [address] [facility] [place] [address] 12/14/2023 11:30 AM EDT Appointment Radiology, [address] [address] 12/17/2023 1:00 PM EDT Office Visit [address] [phone] Jason Arita MD [address] [place] [address] 02/21/2024 9:30 AM EDT Office Visit Cardiology, [facility] [address] [place] [address] Aurelio Viera PA-C [address] [place] [address] 03/08/2024 10:00 AM EDT Cardiac Studies Cardiology, [facility] [address] [place] [address] Delmar Palacios [facility] [address] [place] [address] Health Maintenance Due Date Last Done Comments Hepatitis C Screening 1963 GFR 09/08/2023 03/08/2023, 03/0 09/2022, 01/13/2022, Additional history exists HbA1c 09/08/2023 03/08/2023, 03/0 09/2022, 01/13/2022, Additional history exists Albumin/Creatinine Ratio 10/03/2023 023, 08/28/2021, 11/18/2020, Additional history exists CKD PHOS USE SMARTSET 62394 10/03/2023/0 09/2022, 03/17/2021, 08/18/2019, Additional history exists CKD HGB USE SMARTSET 75149 03/08/202403/08, 10/02/2022, 07/29/2021, Additional history exists DIG [...] filedocumented as of this encounter Care Teams Sales Representative Publications Relationship Specialty Start Date End Date Jason Arita MD [address] [place] [address] PCP - General 02/06/03 documented as of this encounter
--- OUTSIDE RECORDS SUMMARY | 2023-12-21 08:54 | External Medical Summary | Summary of Care ---
Author Name Unknown Organization [facility] Address [address] [place] [address] Phone [phone] Care Team Providers Care Digital Strategist Name Role Phone Jason West MD Primary Care Provider [phone]- [phone] Encounter Details Date Type Department Care Team (Late st Contact Info) Description 11/24/2023 Telephone Hematology/Oncology, [address] [address] Marquez Kolb MD [address] [place] [address] Allergies Active Allergy Reactions Criticality Noted Date Comments Hydroxyzine Hcl 05/12/2012 halluzinating Cetirizine & Related 02/11/1999 HALLUCINATIONS documented as of this encounter (statuses as of 11/26/2023) Medications Medication Sig Dispensed Refills Start Date End Date Status MULTIVITAMIN/TICKET DISPATCHER AL FORMULA TABS OR 1 TABLET DAILY 0 0 12/02/2001 Active SYSTANE PRESERVATIVE FREE 0.4-0.3 % OP SOLNIndications:Ot her anterior corneal dystrophies 1 gtt OU q2h WA 1 box 6 12/03/2008 Active CALCIUM 6022-9713 MG-UNIT PO CHEW Take 1 Tablet by [...] 81 MG TBECIndications:Co ronary artery disease involving [place] coronary artery of [place] heart without angina pectoris Take 1 Tab [...] Tablet Sublingual (Nitrostat)Indicat ions:Coronary artery disease involving [place] coronary artery of [place] heart without angina pectoris,Old [place] (myocardial infarction) Place 1 Tablet under the [...] systolic heart failure (HCC),Coronary artery disease involving [place] coronary artery of [place] heart without angina pectoris TAKE 1 TAB BY MOUTH SHORTLY BEFORE OR UPON RISING IN THE MORNING, AT MIDDAY, AND IN THE LATE AFTERNOON (NO LATER THAN 6PM) 270 Tablet 3 03/25/2023 Active Insulin Pen Needle 32G X 5 MMIndications:DM type 2 causing renal disease, not at goal ([facility]) use to inject lantus twice per day 200 Each 3 03/26/2023 Active OneTouch Verio In Vitro Strip (Glucose Blood)Indications: DM type 2 causing renal disease ([facility]) Check blood sugars one time daily. Dx E11.9 300 Strip 2 05/03/2023 Active glipiZIDE 5 MG Oral Tablet (Glucotrol) Take 1 Tablet by mouth in the morning and 1 Tablet before bedtime. 30 minutes before a meal. 180 Tablet 1 05/27/2023 Active Atorvastatin Calcium 40 MG Oral Tablet (Lipitor)Indicatio ns:Coronary artery disease involving [place] coronary artery of [place] heart without angina pectoris,Dyslipide mona TAKE 1 TABLET DAILY IN THE MORNING 90 Tablet 3 05/27/2023 Active Insulin Glargine Solostar 100 UNIT/ML Subcutaneous Solution Pen-injector (Lantus SoloStar)Indicatio ns:DM type 2 causing renal disease, 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) INJECT 20 UNITS SUBCUTANEOUSLY TWICE DAILY 30 mL 2 07/08/2023 Active Digoxin 125 MCG Oral Tablet (Lanoxin)Indicatio ns:Chronic systolic heart failure (HCC),Coronary artery disease involving [place] coronary artery of [place] heart without angina pectoris Take 1 Tablet [...] single episode, in full remission 12/07/2018 Old HI (myocardial infarction) 03/31/2018 Heart failure, systolic, due to CAD 03/31/2018 Lymphedema of both lower extremities 03/31/2018 Dyslipidemia 02/18/2018 Coronary artery disease invo lving [place] coronary artery of [place] heart without angina pectoris 12/10/2017 PAF (paroxysmal [...] mRNA, LNP-s, No Pre serve, 2-Dose Series (Arsanis) 07/23/2021,11/14/2020,10/24/2020 COVID-19, MRNA-LNP, 23-24, P F, 30 MCG/0.3 mL, 12 YRS AND ABOVE, IM ([facility] Plus-Comirnaty) 05/26/2023 Covid-19, Mrna, Lnp-s, Pf, B ivalent, 30 Mcg, IM, 12 yrs and above (Arsanis) 05/26/2022 Diptheria/Tetanus (Adult) 05/02/1992 Pneumococcal Conjugate Vacc, [...] encounter Miscellaneous Notes * Telephone Encounter - Saba Sevilla OSA - 11/26/2023 9:25 AM EDT Apt is scheduled for 12/12 and pt is aware * Telephone Encounter - Zeyad Hernandez RN - 11/26/2023 9:11 AM EDT Scheduling- pt is scheduled 12/05 with [facility] and 12/06 with Rad Onc - Dr. Kolb wanted patient to be seenfor follow up after these appointments. 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] Called [facility] Rad ONC No answer will try again tomorrow and will fx referral documented in this encounter Plan of Treatment Upcoming Encounters Date Type Department Care Team (Late st Contact Info) Description 12/06/2023 8:40 AM EDT Office Visit Otolaryngology [facility] [address] [place] [address] Raymon Lord PA-C [address] [place] [address] 12/13/2023 10:15 AM EDT Office Visit Hematology/Oncology [facility] [place] [address] [facility] [place] [phone] Marquez Kolb MD [address] [facility] [place] [address] 12/17/2023 1:00 PM EDT Office Visit [facility] [address] [place] [phone] Jason West MD [address] [place], [place] [phone] 02/09/2024 3:00 PM EDT Office Visit [facility]iology, [facility] [place] [address] Aurelio Viera PA-C [address] [place] [address] 03/08/2024 10:00 AM EDT Cardiac Studies Cardiology, [facility] [address] [facility] [place] [address] [facility] [address] [facility] [place] [address] Health Maintenance Due Date Last Done Comments Hepatitis C Screening 1963 GFR 09/08/2023 03/08/2023, 0 09/2022, 01/13/2022, Additional history exists HbA1c 09/08/2023 03/08/2023, 0 09/2022, 01/13/2022, Additional history exists Albumin/Creatinine Ratio 10/03/2023 023, 08/28/2021, 11/18/2020, Additional history exists CKD PHOS USE SMARTSET 02551 10/03/[address] 09/2022, 03/17/2021, 08/18/2019, Additional history exists CKD HGB USE SMARTSET 35319 03/08/202403/08, 10/02/2022, 07/29/2021, Additional history exists DIG [...] filedocumented as of this encounter Care Teams Digital Strategist Relationship Specialty Start Date End Date Jason West MD [address] [facility] [place] [address] PCP - General 02/06/03 documented as of this encounter
--- OUTSIDE RECORDS SUMMARY | 2023-12-21 08:54 | External Medical Summary | Summary of Care ---
Author Name Unknown Organization [facility] Address [address] [place] [address] Phone [phone] Care Team Providers Care Assistant Dean Name Role Phone Jason West MD Primary Care Provider [phone] Reason for Referral * Precert (Within 10 days (routine)) - Pending Review Specialty Diagnoses / Procedures Referred By Abdullahi melo Referred To Contact Radiology Diagnoses Mass of both parotid glands Procedures CT NECK W CONTRAST Raymon Lord PA-C [address] [place] [address] Referral ID Status Reason Start Date Expiration Date V isits Requested Visits Authorized [id number] Pending Review 12/06/2023 [id number] Reason for Visit * Reason Comments NEW PATIENT Parotid mass seen on PET scan * Evaluate & Treat - Unlimited Visits (Within 10 days (routine)) - Pending Review Specialty Diagnoses / Procedures Referred By Abdullahi melo Referred To Contact Otolaryngology Diagnoses Parotid mass Marquez Kolb MD [address] [place] [address] Referral ID Status Reason Start Date Expiration Date Visits Requested Visits Authorized [id number] Pending Review Specialty Services Required 11/24/2023 [id number] Encounter Details Date Type Department Care Team (Late st Contact Info) Description 12/06/2023 8:40 AM EDT Office Visit Otolaryngology [facility] [address] [place] [address] Raymon Lord PA-C [address] [place] [address] Mass of both parotid glands*; Hoarseness of voice [R49.0] Allergies Active Allergy Reactions Criticality Noted Date Comments Hydroxyzine Hcl 05/12/2012 halluzinating Cetirizine & Related 02/11/1999 HALLUCINATIONS documented as of this encounter (statuses as of 12/06/2023) Medications Medication Sig Dispensed Refills Start Date End Date Status MULTIVITAMIN/IRISH MOSS BLEACHER AL FORMULA TABS OR 1 TABLET DAILY 0 0 12/02/2001 Active SYSTANE PRESERVATIVE FREE 0.4-0.3 % OP SOLNIndications:Ot her anterior corneal dystrophies 1 gtt OU q2h WA 1 box 6 12/03/2008 Active CALCIUM 1354-6781 MG-UNIT PO CHEW Take 1 Tablet by [...] 81 MG TBECIndications:Co ronary artery disease involving [place] coronary artery of [place] heart without angina pectoris Take 1 [...] Tablet Sublingual (Nitrostat)Indicat ions:Coronary artery disease involving [place] coronary artery of [place] heart without angina pectoris,Old UT (myocardial infarction) Place 1 Tablet under the tongue every 5 minutes as needed for Pain, Chest. 25 Tablet 5 09/03/2022 Active Apixaban 5 MG Oral Tablet (Eliquis)Indicatio ns:PAF (paroxysmal atrial fibrillation) ([facility]) Take 1 Tablet by mouth in the morning and 1 Tablet before bedtime. 180 Tablet 3 01/01/2023 Active Midodrine HCl 5 MG Oral Tablet (Proamatine)Indica tions:Chronic systolic heart failure (HCC),Coronary artery disease involving [place] coronary artery of [place] heart without angina pectoris TAKE 1 TAB BY MOUTH SHORTLY BEFORE OR UPON RISING IN THE MORNING, AT MIDDAY, AND IN THE LATE AFTERNOON (NO LATER THAN 6PM) 270 Tablet 3 03/25/2023 Active Insulin Pen Needle 32G X 5 MMIndications:DM type 2 causing renal disease, not at goal ([facility]) use to inject lantus twice per day 200 Each 3 03/26/2023 Active OneTouch Verio In Vitro Strip (Glucose Blood)Indications: DM type 2 causing renal disease ([facility]) Check blood sugars one time daily. Dx E11.9 300 Strip 2 05/03/2023 Active glipiZIDE 5 MG Oral Tablet (Glucotrol) Take 1 Tablet by mouth in the morning and 1 Tablet before bedtime. 30 minutes before a meal. 180 Tablet 1 05/27/2023 Active Atorvastatin Calcium 40 MG Oral Tablet (Lipitor)Indicatio ns:Coronary artery disease involving [place] coronary artery of [place] heart without angina pectoris,Dyslipide mona TAKE 1 TABLET DAILY IN THE MORNING 90 Tablet 3 05/27/2023 Active Insulin Glargine Solostar 100 UNIT/ML Subcutaneous Solution Pen-injector (Lantus SoloStar)Indicatio ns:DM type 2 causing renal disease, not at goal ([facility]) INJECT 20 UNITS SUBCUTANEOUSLY TWICE DAILY 30 mL 2 07/08/2023 Active Digoxin 125 MCG Oral Tablet (Lanoxin)Indicatio ns:Chronic systolic heart failure ([facility]),Coronary artery disease involving [place] coronary artery of [place] heart without angina pectoris Take 1 Tablet by mouth at bedtime. 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 Chronic kidney disease, stage 3a 01/14/2021 Overview: Per CKD protocol Type 2 diabetes mellitus wit h stage 3a chronic kidney disease 12/10/2020 Overview: Per CKD protocol Chronic systolic heart failure 11/21/2020 DM type 2 causing renal disease, 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, in full remission 12/07/2018 Old UT (myocardial infarction) 03/31/2018 Heart failure, systolic, due to CAD 03/31/2018 Lymphedema of both lower extremities 03/31/2018 Dyslipidemia 02/18/2018 Coronary artery disease invo lving blue [place] coronary artery of [place] heart without angina pectoris 12/10/2017 PAF (paroxysmal atrial fibrillation) 12/10/2017 Type 2 diabetes mellitus wit h hemoglobin A1c goal of less than 8.0% 09/08/2013 Overview: ICD-10 update of inactive term DJD, CERVICAL SPINE 04/12/2002 GENERAL OSTEOARTHROSIS documented as of this encounter (statuses as of 12/06/2023) Resolved Problems Problem Noted Date Diagnosed Date [...] as of this encounter (statuses as of 12/06/2023) Immunizations Name Administration Dates Next Due COVID-19 mRNA, LNP-s, No Pre serve, 2-Dose Series (Soum) 07/23/2021,11/14/2020,10/24/2020 COVID-19, MRNA-LNP, 23-24, P F, 30 [...] 0 08/12/1965 - 08/12/1999 Smokeless Tobacco: Never Tobacco Cessation:Counseling Given: Not Answered Comments:10/25/98 Alcohol Use Standard Drinks/Week Comments Not [...] Sign Reading Time Taken Comments Blood Pressure - - Pulse - - Temperature 35.8 C (96.5 F) 12/06/2023 8:47 AM ED T Respiratory Rate - - Oxygen Saturation - - Inhaled Oxygen Concentration - - Weight 104.1 kg (229 lb 9.6 oz) 12/06/2023 8:47 AM EDT Height 160 cm (5' 3") 12/06/2023 8:47 AM EDT Body Mass Index 40.67 12/06/2023 8:47 AM EDT documented in this encounter Progress Notes * Raymon Lord PA-C - 12/06/2023 8:40 AM EDT HISTORY OF PRESENT ILLNESS This 78 year old female is seen at the request of Marquez Kolb MD for the initial evaluation of parotid mass Patient is accompanied by self Her PMHx is significant for: CAD, HTN, HLD, A-fib on Eliquis, T2DM, Heart failure, OAB She had recent hospital admission 10/21/23-10/27/23 for CP, SOB, SOLORZANO, dysphagia and weight loss. She had an EGD done 10/25/23 which showed GE junction tumor, biopsy consistent with adenocarcinoma. She had PET scan done 11/23/23 which showed metabolically active bilateral parotid masses which mayreflect primary parotid neoplasm. Head / Neck: Metabolically active bilateral parotid masses, measuring 1.5 x 1.8 cm with SUV 24.9 onthe right and 0.8 x 0.8 cm with SUV 17.0 on the left. She notes ongoing dysphagia since September 30, she has basically been on a liquid diet since then. Denies otalgia, blood tinged mucous. She does not feel any lumps or bumps in her neck or facial weakness-- is asymptomatic. She does note intermittent hoarseness-- felt it was related to allergies. No hx of head and neck surgeries other than T&A. No family hx of head and neck cancer. Former smoker-- quit 30+ years ago. 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] 11/22/2023 Chronic kidney disease, stage 3a (HCC) [N18.31] 01/14/2021 Per CKD protocol Type 2 diabetes mellitus with stage 3a chronic kidney disease (HCC) [E11.22, N18.31] 12/10/2020 Per CKD protocol Chronic systolic heart failure ([facility]) [I50.22] 11/21/2020 DM type 2 causing renal disease, not at goal ([facility]) [E11.29] 08/18/2019 Major depressive disorder with single episode, in full remission ([facility]) [F32.5] 12/07/2018 Old UT (myocardial infarction) [I25.2] 03/31/2018 Heart failure, systolic, due to CAD ([facility]) [I50.20, I25.10] 03/31/2018 Lymphedema of both lower extremities [I89.0] 03/31/2018 Dyslipidemia [E78.5] 02/18/2018 Coronary artery disease involving [place] coronary artery of [place] heart without angina pectoris [I25.10] 12/10/2017 PAF (paroxysmal atrial fibrillation) ([facility]) [I48.0] 12/10/2017 Type 2 diabetes mellitus with hemoglobin A1c goal of less than 8.0% ([facility]) [E11.9] 09/08/2013 ICD-10 update of inactive term DJD, CERVICAL SPINE [M19.90] 04/12/2002 GENERAL OSTEOARTHROSIS [M15.9] Past Medical History: Diagnosis Date DM type 2, goal A1C below 8.0 09/08/2013 Fam hx-cardiovas dis NEC Family history of diabetes mellitus Generalized osteoarthritis GERD (gastroesophageal reflux disease) Heart failure, systolic, due to CAD ([facility]) 03/31/2018 HTN, goal below 140/90 Menopause Mixed dyslipidemia Morbid Obesity, BMI not known Myalgia and myositis PAF (paroxysmal atrial fibrillation) ([facility]) 12/10/2017 Polymyalgia rheumatica (HCC) Past Surgical History: Procedure Laterality Date ABDOMEN SURGERY PROCEDURE NEC OVARIAN CYST AND APPENDECTOMY ARTHROPLASTY KNEE TOTAL 05/11 Right, [place]. CATHETERIZE LEFT HEART THRU SKIN 09/25/04 <30% LAD, hyperdynamic LV function EGD, W/ENDOSCOPIC US N/A 11/12/2023 ESOPHAGOGASTRODUODENOSCOPY (EGD), FLEXIBLE, TRANSORAL, ENDOSCOPIC ULTRASOUND performed by Fer Solano MD at ENDOSCOPY [facility] FRACTURE NOS ANKLES, L AND R REMOVAL OF TONSILS, AGE 12+ Tonsils Removal,12+ Y/O REMOVE GALLBLADDER Cholecystectomy Current Outpatient Medications Medication Sig Dispense Refill MULTIVITAMIN/MINERAL FORMULA TABS OR 1 TABLET DAILY 0 0 SYSTANE PRESERVATIVE FREE 0.4-0.3 % OP SOLN 1 gtt OU q2h WA 1 box 6 CALCIUM 9708-7554 MG-UNIT PO CHEW Take 1 Tablet by [...] one time daily. Dx E11.9 300 Strip2 glipiZIDE 5 MG Oral Tablet (Glucotrol) Take [...] Capsule Take 1 Capsule by mouth daily. COVID-19 mRNA Vaccine 12 years and above Soum 30 MCG/0.3 ML IM SUSP Inject into a large muscle asdirected 0.3 mL 0 Fluzone High-Dose Quadrivalent 0.7 ML Suspension Prefilled Syringe (Influenza Vac High-Dose Quad (65 years and older)) Inject 0.7 ml intramuscularly as directed 0.7 mL 0 Amoxicillin 500 MG Oral Capsule (Amoxil) Take 2 Capsules by mouth in the morning and 2 Capsules before bedtime. For 10 days. (Patient not taking: Reported on 11/02/2023) Clarithromycin 500 MG Oral Tablet (Biaxin) Take 1 Tablet by mouth in the morning and 1 Tablet before bedtime. For 10 days. (Patient not taking: Reported on 12/06/2023) No current facility-administered medications for this visit. Review of patient's allergies indicates: Allergen Reactions Atarax [Hydroxyzine Hcl] halluzinating Cetirizine & Related HALLUCINATIONS Family History Problem Relation Age of Onset Diabetes Mother Hypertension Mother Heart Disorder Mother CABG Cancer Father Other (Other) Other pt denies family hx of skin cancer Social History Social History Tobacco Use Smoking status: Former Current packs/day: 0.00 Average packs/day: 1.5 packs/day for 35.0 years (52.5 ttl pk-yrs) Types: Cigarettes Start date: [birth year]/1964 Quit date: 08/12/1999 Years since quittin.3 Smokeless tobacco: Never Tobacco comments: 10/25/98 Substance Use Topics Alcohol use: Not Currently Vaping/E-Cigarette Use Vaping/E-Cigarette Use Never User Vaping/E-Cigarette Substances Vaping/E-Cigarette Devices I reviewed the updated past medical history, problem list, past surgical history, social history, family history, allergy and current medication list. Occupational History Work: ROS General: No recent weight loss/gain. No fatigue. Cardio: No palpitations, chest pain, no orthopnea, or dyspnea on exertion. Lung: No cough, wheezing, sputum or shortness of breath. Nerve: No numbness, weakness of extremities, diplopia, vertigo, mental status change Heme: No easy bruising, bleeding. No fever. No chills. No sweats. Neuro: No memory loss, no weakness, no numbness. Skin: No rash, itching or new/changing lesions. Eyes: No change in vision, redness of the eyes, or ocular pain. ROS otherwise negative unless stated in PMH or HPI. Temp 35.8 C (96.5 F) (Tympanic) | Ht 1.6 m (5' 3") | Wt 104.1 kg (229 lb 9.6 oz) | BMI 40.67 kg/m | BSA 2.15 m PHYSICAL EXAMINATION: Gen: Patient is a healthy female and appears her stated age. She is alert, oriented, cooperative and in no acute distress. The patient is obese.. She is appropriately conversant and Her voice is normal in character and quality. Face: No facial asymmetry. There was no erythema or edema noted. Facial movement was symmetric without weakness. No skin lesions were detected. Eyes: The pupils are equal round. No scleral icterus. Ears: The auricles are normally formed without lesions. The external auditory canals are patent andwithout lesion. Both tympanic membranes are intact and freely mobile without perforation, effusion or significant retraction pockets. Nose: The septum is non obstructing and the turbinates are without abnormality. No masses, polyps, mucopus, or other lesion are visualized. Oral Cavity: The mucosa is moist without lesion. The hard palate is intact. The soft palate is intact . The occlusion is stable. Tongue is of normal size with normal mobility. Oropharynx: The tonsils are surgically absent. There is no erythema and no exudate on either side. Salivary glands: No visible or palpable abnormalities of the submandibular glands bilaterally; there was palpable right sided parotid mass Neck: Thyroid- no thyromegaly. No neck mass to palpation. Lymphatics: No visible or palpable abnormalities of the lymph nodes of the posterior triangle, anterior cervical chain, central neck or submandibular region. Cranial nerves: Cranial nerves II, III, IV, and were noted to be intact via extra-ocular muscle movement testing. Cranial nerve VII noted to be intact and symmetric by facial movement. Cranial nerve VIII was grossly normal (not tested with tuning forks).. Cranial nerves IX and X noted to be intact by gag reflex and palatal movement. Cranial nerve XII noted to be intact by active and symmetric tongue movement. CV/Heart: regular rate Lungs: No audible stridor No increased work of breathing Able to speak in full sentences Procedure: Due to patient's inability to cooperate with mirror exam or concern for structures otherwise not evaluated, fiberoptic examination of the larynx was performed. The nose was first topically decongested with topical oxymetazoline 0.05% spray and topically anesthetized with topical Lidocaine 4% spray. Nasopharynx was visualized and was without masses or lesions. Fiberoptic examination revealed no mass lesions. Vocal cord mobility was normal without paralysis or paresis. There was no significant edema or erythema of the larynx. No vocal cord masses were visualized. Exam was negative for post cricoid or pyriform sinuses lesions. The patient tolerated the procedure well. Patient should refrain from eating or drinking for 30-45 minutes due to anesthesia of the pharynx and possible interference with swallowing. I performed and Dr. Alex Hernandez was present for the procedure. ASSESSMENT: 1. Mass of both parotid glands - CT NECK W CONTRAST; Future - CREATININE; Future - IR BIOPSY - CYTOLOGY; Future 2. Hoarseness of voice [R49.0] Plan: -CT neck w contrast -FNA of RIGHT parotid (left too small for FNA). -F/U with results once available Patient was seen, clinical exam confirmed and plan of care reviewed by Dr. Alex Lord PA-C [facility]ol[facility] [place], [place] 12/02/2023 9:39 AM The patient is being seen in follow up for the treatment of K11.8 Mass of both parotid glands (primary encounter diagnosis) R49.0 Hoarseness of voice [R49.0] incident to the plan of care established by Dr. Alex Hernandez. Type of Supervision: Shared-Does not meet incident-to STAFF NOTE I performed a history and physical examination of the patient, including specifically on history, ROS, on physical exam, and my impression and plan are found below I have discussed the patient's management with Raymon Lord PA-C. Please refer to the physician starch treating assistant's note for the documented findings and plan of care. HPI: 78-year-old female recently diagnosed with esophageal cancer who was incidentally noted to have bilateral parotid masses on a PET-CT scan, right larger than left. Patient is asymptomatic withoutany pain. No history of facial weakness. On exam Neck: Visualization and palpation of the neck revealed a palpable right-sided parotid mass No skin lesions or inflammatory processes were detected. The cervical musculature was normal to palpation. Lymphatics (cervical): There were no palpable lymph nodes in the posterior triangle, submandibular triangle, jugulodigastric region, or central neck. Assessment: 78-year-old female with recently diagnosed esophageal cancer with incidentally noted bilateral parotid masses left side subcentimeter in size Plan: - recommend ultrasound-guided needle biopsy of the right parotid mass at [facility]. Left parotid masses subcentimeter and likely not amenable to FNA - will contact her with results Alex Hernandez DO, [place] [facility] Otolaryngology Head [facility] Neck Surgery [place], [place] 12/06/2023 9:26 AM documented in this encounter Nursing Notes * Robin De CMA - 12/06/2023 8:45 AM EDT Chief Complaint Patient presents with NEW PATIENT Parotid mass seen on PET scan Ciara Baig is a 78 year old female who presents today with bilateral parotid masses that were seen on a PET scan that she had on 11/23/2023. She states that she has esophageal cancer and had the pet scan to see if it spread. She has no pain and she can feel no masses. She states that Dr. Kolb wants a copy of today's office visit note. documented in this encounter Plan of Treatment Upcoming Encounters Date Type Department Care Team (Late st Contact Info) Description 12/13/2023 10:15 AM EDT Office Visit Hematology/Oncology [facility] [place] [address] [place] [id number] Marquez Kolb MD [address] [place] [address] 12/14/2023 11:30 AM EDT [address] [address] 12/17/2023 1:00 PM EDT Office Visit [place] [id number] [place] [phone] Jason West MD [address] [place] [address] 02/21/2024 9:30 AM EDT Office Visit Cardiology, [facility] [address] [facility] [place] [address] Aurelio Viera PAJuanyC [address] [facility] [place] [address] 03/08/2024 10:00 AM EDT Cardiac Studies Cardiology, [facility] [address] [facility] [place] [address] [facility] [address] [facility] [place] [address] Scheduled Orders Name Type Priority Associated Diagnoses Orde r Schedule CT NECK W CONTRAST Medical Imaging Routine Mass of both parotid glands Expected: 12/06/2023, Expires: 01/05/2025 CREATININE Lab Routine Mass of both parotid glands Expected: 12/06/2023, Expires: 12/05/2024 IR BIOPSY Medical Imaging Routine Mass of both parotid glands Ordered: 12/06/2023 CYTOLOGY Pathology Routine Mass of both parotid glands Expected: 12/06/2023, Expires: 01/05/2025 Health Maintenance Due Date Last Done Comments Hepatitis C Screening 1963 GFR 09/08/2023 03/08/2023, 03/0 09/2022, 01/13/2022, Additional history exists HbA1c 09/08/2023 03/08/2023, 03/0 09/2022, 01/13/2022, Additional history exists Albumin/Creatinine Ratio 10/03/2023 023, 08/28/2021, 11/18/2020, Additional history exists CKD PHOS USE SMARTSET 44758 10/03/2023 03/0 09/2022, 03/17/2021, 08/18/2019, Additional history exists CKD HGB USE SMARTSET 93492 03/08/202403/08, 10/02/2022, 07/29/2021, Additional history exists DIG [...] as of this encounter Visit Diagnoses Diagnosis Mass of both parotid glands- Primary Hoarseness of voice [R49.0] Dysphonia documented in this encounter Care Teams Assistant Dean Relationship Specialty Start Date End Date Jason West MD [address] [place] [address] PCP - General 02/06/03 documented as of this encounter
--- OUTSIDE RECORDS SUMMARY | 2023-12-21 08:54 | External Medical Summary | Summary of Care ---
Author Name Unknown Organization [facility] Address [address] [place] [address] Phone [phone] Care Team Providers Care Cylinder Machine Operator Name Role Phone Jason West MD Primary Care Provider +1- [phone] Encounter Details Date Type Department Care Team (Late st Contact Info) Description 11/24/2023 Telephone Hematology/Oncology, [address] [address] Marquez Kolb MD [address] [place] [address] Allergies Active Allergy Reactions Criticality Noted Date Comments Hydroxyzine Hcl 05/12/2012 halluzinating Cetirizine & Related 02/11/1999 HALLUCINATIONS documented as of this encounter (statuses as of 11/26/2023) Medications Medication Sig Dispensed Refills Start Date End Date Status MULTIVITAMIN/PREHEMMER AL FORMULA TABS OR 1 TABLET DAILY 0 0 12/02/2001 Active SYSTANE PRESERVATIVE FREE 0.4-0.3 % OP SOLNIndications:Ot her anterior corneal dystrophies 1 gtt OU q2h WA 1 box 6 12/03/2008 Active CALCIUM 5953-7228 MG-UNIT PO CHEW Take 1 Tablet by [...] 81 MG TBECIndications:Co ronary artery disease involving syc[place] coronary artery of sycuan heart without angina pectoris Take 1 Tab [...] Tablet Sublingual (Nitrostat)Indicat ions:Coronary artery disease involving syc[place] coronary artery of sycuan heart without angina pectoris,Old [place] (myocardial infarction) Place 1 Tablet under the [...] systolic heart failure (HCC),Coronary artery disease involving syc[place] coronary artery of sycuan heart without angina pectoris TAKE 1 TAB BY MOUTH SHORTLY BEFORE OR UPON RISING IN THE MORNING, AT MIDDAY, AND IN THE LATE AFTERNOON (NO LATER THAN 6PM) 270 Tablet 3 03/25/2023 Active Insulin Pen Needle 32G X 5 MMIndications:DM type 2 causing renal disease, not at goal ([facility]) use to inject lantus twice per day 200 Each 3 03/26/2023 Active OneTouch Verio In Vitro Strip (Glucose Blood)Indications: DM type 2 causing renal disease ([facility]) Check blood sugars one time daily. Dx E11.9 300 Strip 2 05/03/2023 Active glipiZIDE 5 MG Oral Tablet (Glucotrol) Take 1 Tablet by mouth in the morning and 1 Tablet before bedtime. 30 minutes before a meal. 180 Tablet 1 05/27/2023 Active Atorvastatin Calcium 40 MG Oral Tablet (Lipitor)Indicatio ns:Coronary artery disease involving syc[place] coronary artery of sycuan heart without angina pectoris,Dyslipide mona TAKE 1 TABLET DAILY IN THE MORNING 90 Tablet 3 05/27/2023 Active Insulin Glargine Solostar 100 UNIT/ML Subcutaneous Solution Pen-injector (Lantus SoloStar)Indicatio ns:DM type 2 causing renal disease, 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) INJECT 20 UNITS SUBCUTANEOUSLY TWICE DAILY 30 mL 2 07/08/2023 Active Digoxin 125 MCG Oral Tablet (Lanoxin)Indicatio ns:Chronic systolic heart failure (HCC),Coronary artery disease involving syc[place] coronary artery of syc[place] heart without angina pectoris Take 1 Tablet [...] single episode, in full remission 12/07/2018 Old [place] (myocardial infarction) 03/31/2018 Heart failure, systolic, due to CAD 03/31/2018 Lymphedema of both lower extremities 03/31/2018 Dyslipidemia 02/18/2018 Coronary artery disease invo lving sycuan coronary artery of sycuan heart without angina pectoris 12/10/2017 PAF (paroxysmal [...] mRNA, LNP-s, No Pre serve, 2-Dose Series (inDplay) 07/23/2021,11/14/2020,10/24/2020 COVID-19, MRNA-LNP, 23-24, P F, 30 MCG/0.3 mL, 12 YRS AND ABOVE, IM ([employer]-Comirnaty) 05/26/2023 Covid-19, Mrna, Lnp-s, Pf, B ivalent, 30 Mcg, IM, 12 yrs and above (inDplay) 05/26/2022 Diptheria/Tetanus (Adult) 05/02/1992 Pneumococcal Conjugate Vacc, [...] ADULT/PEDS OTOLARYNGOLOGY REFERRAL OP Status: Needs Scheduling ([id number] Pending) Requested appt date: Authorizing: Marquez Kolb MD in HEM/ONC [facility] Referral: [id number] (Pending Review) Priority: Within 10 days (routine) 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] Scheduling please call pt to schedule documented in this encounter Plan of Treatment Upcoming Encounters Date Type Department Care Team (Late st Contact Info) Description 12/17/2023 1:00 PM EDT Office Visit [facility] [address] [place] [address] Jason West MD [address] [place] [address] 02/09/2024 3:00 PM EDT Office Visit Cardiology, [facility] [place] [address] Aurelio Viera PA-C [address] [place] [address] 03/08/2024 10:00 AM EDT Cardiac Studies Cardiology, [facility] [place] [address] [facility] [address] [place] [address] Health Maintenance Due Date Last Done Comments Hepatitis C Screening 1963 GFR 09/08/2023 03/08/2023, 03/0 09/2022, 01/13/2022, Additional history exists HbA1c 09/08/2023 03/08/2023, 03/0 09/2022, 01/13/2022, Additional history exists Albumin/Creatinine Ratio 10/03/2023 023, 08/28/2021, 11/18/2020, Additional history exists CKD PHOS USE SMARTSET 07993 10/03/2023 03/0 09/2022, 03/17/2021, 08/18/2019, Additional history exists CKD HGB USE SMARTSET 54214 03/08/202403/08, 10/02/2022, 07/29/2021, Additional history exists DIG [...] filedocumented as of this encounter Care Teams Cylinder Machine Operator Relationship Specialty Start Date End Date Jason West MD [address] [place] [address] PCP - General 02/06/03 documented as of this encounter
--- OUTSIDE RECORDS SUMMARY | 2023-12-21 08:54 | External Medical Summary | Summary of Care ---
Author Name Unknown Organization [facility] Address [address] [place] [address] Phone [phone] Care Team Providers Care Ceramic Capacitor Processor Name Role Phone Jason West MD Primary Care Provider [phone]- [phone] Reason for Visit * Reason Onset Date Comments Films 11/30/2023 Encounter Details Date Type Department Care Team (Late st Contact Info) Description 11/30/2023 Telephone Radiology [facility] [address] [place] [address] Whitney Aranda MD [address] [place] [address] Films Allergies Active Allergy Reactions Criticality Noted Date Comments Hydroxyzine Hcl 05/12/2012 halluzinating Cetirizine & Related 02/11/1999 HALLUCINATIONS documented as of this encounter (statuses as of 11/30/2023) Medications Medication Sig Dispensed Refills Start Date End Date Status MULTIVITAMIN/HEMMER CHAINSTITCH AL FORMULA TABS OR 1 TABLET DAILY 0 0 12/02/2001 Active SYSTANE PRESERVATIVE FREE 0.4-0.3 % OP SOLNIndications:Ot her anterior corneal dystrophies 1 gtt OU q2h WA 1 box 6 12/03/2008 Active CALCIUM 2262-7675 MG-UNIT PO CHEW Take 1 Tablet by mouth in the morning. 0 Active Cinnamon 500 MG Capsule Take 2 Capsules by mouth in the morning. 0 Active ONETOUCH ULTRASOFT LANCETS MISCIndications:DM type 2 causing renal disease ([facility]) Use as directed daily. Use up to four times a day as directed. Dx E11.9 3 Box Dosing Unit 3 09/13/2018 Active aspirin enteric coated 81 MG TBECIndications:Co ronary artery disease involving [place] coronary artery of [place] heart without angina pectoris Take 1 Tab [...] Tablet Sublingual (Nitrostat)Indicat ions:Coronary artery disease involving [place] coronary artery of [place] heart without angina pectoris,Old [place] (myocardial infarction) Place 1 Tablet under the tongue every 5 minutes as needed for Pain, Chest. 25 Tablet 5 09/03/2022 Active Apixaban 5 MG Oral Tablet (Eliquis)Indicatio ns:PAF (paroxysmal atrial fibrillation) ([facility]) Take 1 Tablet by mouth in the morning and 1 Tablet before bedtime. 180 Tablet 3 01/01/2023 Active Midodrine HCl 5 MG Oral Tablet (Proamatine)Indica tions:Chronic systolic heart failure (HCC),Coronary artery disease involving [place] coronary artery of [place] heart without angina pectoris TAKE 1 TAB BY MOUTH SHORTLY BEFORE OR UPON RISING IN THE MORNING, AT MIDDAY, AND IN THE LATE AFTERNOON (NO LATER THAN 6PM) 270 Tablet 3 03/25/2023 Active Insulin Pen Needle 32G X 5 MMIndications:DM type 2 causing renal disease, not at goal ([facility]) use to inject lantus twice per day 200 Each 3 03/26/2023 Active OneTouch Verio In Vitro Strip (Glucose Blood)Indications: DM type 2 causing renal disease ([facility]) Check blood sugars one time daily. Dx E11.9 300 Strip 2 05/03/2023 Active glipiZIDE 5 MG Oral Tablet (Glucotrol) Take 1 Tablet by mouth in the morning and 1 Tablet before bedtime. 30 minutes before a meal. 180 Tablet 1 05/27/2023 Active Atorvastatin Calcium 40 MG Oral Tablet (Lipitor)Indicatio ns:Coronary artery disease involving [place] coronary artery of [place] heart without angina pectoris,Dyslipide mona TAKE 1 TABLET DAILY IN THE MORNING 90 Tablet 3 05/27/2023 Active Insulin Glargine Solostar 100 UNIT/ML Subcutaneous Solution Pen-injector (Lantus SoloStar)Indicatio ns:DM type 2 causing renal disease, 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) INJECT 20 UNITS SUBCUTANEOUSLY TWICE DAILY 30 mL 2 07/08/2023 Active Digoxin 125 MCG Oral Tablet (Lanoxin)Indicatio ns:Chronic systolic heart failure (HCC),Coronary artery disease involving [place] coronary artery of [place] heart without angina pectoris Take 1 Tablet [...] as of this encounter (statuses as of 11/30/2023) Active Problems Problem Noted Date Diagnosed Date [...] Dyslipidemia 02/18/2018 Coronary artery disease invo lving [place] coronary artery of lone pine heart without angina pectoris 12/10/2017 PAF (paroxysmal atrial fibrillation) 12/10/2017 Type 2 diabetes mellitus wit h hemoglobin A1c goal of less than 8.0% 09/08/2013 Overview: ICD-10 update of inactive term DJD, CERVICAL SPINE 04/12/2002 GENERAL OSTEOARTHROSIS documented as of this encounter (statuses as of 11/30/2023) Resolved Problems Problem Noted Date Diagnosed Date [...] as of this encounter (statuses as of 11/30/2023) Immunizations Name Administration Dates Next Due COVID-19 mRNA, LNP-s, No Pre serve, 2-Dose Series ([employer]) 07/23/2021,11/14/2020,10/24/2020 COVID-19, MRNA-LNP, 23-24, P F, 30 MCG/0.3 mL, 12 YRS AND ABOVE, IM ([employer]-Comirnaty) 05/26/2023 Covid-19, Mrna, Lnp-s, Pf, B ivalent, [...] encounter Miscellaneous Notes * Telephone Encounter - Annie Sellers OSA - 11/30/2023 3:08 PM EDT Rubi from [facility] Radiation Oncology department requesting11/12/23 Endoscopic Ultrasound and 11/23/[address] images be pushed through PACS. Meta Authorization to Release on file. Images pushed to [facility] PACS. documented in this encounter Plan of Treatment Upcoming Encounters Date Type Department Care Team (Late st Contact Info) Description 12/06/2023 8:40 AM EDT Office Visit Otolaryngology [facility] [address] [address] Raymon Lord PA-C [address] [place] [address] 12/13/2023 10:15 AM EDT Office Visit [facility]ology[facility]On[facility] [address] [facility] [place] [phone] Marquez Kolb MD [address] [facility] [place] [address] 12/17/2023 1:00 PM EDT Office Visit [address] [phone] Jason West MD [address] [place] [address] 02/21/2024 9:30 AM EDT Office Visit Cardiology, [facility] [address] [place] [address] Aurelio Viera PA-C [address] [place] [address] 03/08/2024 10:00 AM EDT Cardiac Studies Cardiology, [facility] [address] [place] [address] [facility] [address] [place] [address] Health Maintenance Due Date Last Done Comments Hepatitis C Screening 1963 GFR 09/08/2023 03/08/2023, 030 09/2022, 01/13/2022, Additional history exists HbA1c 09/08/2023 03/08/2023, 030 09/2022, 01/13/2022, Additional history exists Albumin/Creatinine Ratio 10/03/2023 023, 08/28/2021, 11/18/2020, Additional history exists CKD PHOS USE SMARTSET 64020 10/03/2023 03/0 09/2022, 03/17/2021, 08/18/2019, Additional history exists CKD HGB USE SMARTSET 18839 03/08/202403/08, 10/02/2022, 07/29/2021, Additional history exists DIG [...] filedocumented as of this encounter Care Teams Ceramic Capacitor Processor Relationship Specialty Start Date End Date Jason West MD [address] [place] [address] PCP - General 02/06/03 documented as of this encounter
--- OUTSIDE RECORDS SUMMARY | 2023-12-21 08:54 | External Medical Summary | Summary of Care ---
Author Name Unknown Organization [facility] Address [address] [place] [address] Phone [phone] Care Team Providers Care Primary Clinician Name Role Phone Jason West MD Primary Care Provider +1- [phone] Encounter Details Date Type Department Care Team (Late st Contact Info) Description 12/09/2023 Orders Only PATIENT PORTAL DO NOT DELETE THIS DEPT USED BY [place] [address] Allergies Active Allergy Reactions Criticality Noted Date Comments Hydroxyzine Hcl 05/12/2012 halluzinating Cetirizine & Related 02/11/1999 HALLUCINATIONS documented as of this encounter (statuses as of 12/09/2023) Medications Medication Sig Dispensed Refills Start Date End Date Status MULTIVITAMIN/CHANGE ANALYST AL FORMULA TABS OR 1 TABLET DAILY 0 0 12/02/2001 Active SYSTANE PRESERVATIVE FREE 0.4-0.3 % OP SOLNIndications:Ot her anterior corneal dystrophies 1 gtt OU q2h WA 1 box 6 12/03/2008 Active CALCIUM 1295-3930 MG-UNIT PO CHEW Take 1 Tablet by [...] 81 MG TBECIndications:Co ronary artery disease involving [place] coronary artery of [place] heart without angina pectoris Take 1 Tab [...] Tablet Sublingual (Nitrostat)Indicat ions:Coronary artery disease involving [place] coronary artery of [place] heart without angina pectoris,Old [place] (myocardial infarction) Place 1 Tablet under the tongue every 5 minutes as needed for Pain, Chest. 25 Tablet 5 09/03/2022 Active Apixaban 5 MG Oral Tablet (Eliquis)Indicatio ns:PAF (paroxysmal atrial fibrillation) ([facility]) Take 1 Tablet by mouth in the morning and 1 Tablet before bedtime. 180 Tablet 3 01/01/2023 Active Midodrine HCl 5 MG Oral Tablet (Proamatine)Indica tions:Chronic systolic heart failure (HCC),Coronary artery disease involving [place] coronary artery of [place] heart without angina pectoris TAKE 1 TAB BY MOUTH SHORTLY BEFORE OR UPON RISING IN THE MORNING, AT MIDDAY, AND IN THE LATE AFTERNOON (NO LATER THAN 6PM) 270 Tablet 3 03/25/2023 Active Insulin Pen Needle 32G X 5 MMIndications:DM type 2 causing renal disease, not at goal ([facility]) use to inject lantus twice per day 200 Each 3 03/26/2023 Active OneTouch Verio In Vitro Strip (Glucose Blood)Indications: DM type 2 causing renal disease ([facility]) Check blood sugars one time daily. Dx E11.9 300 Strip 2 05/03/2023 Active Atorvastatin Calcium 40 MG Oral Tablet (Lipitor)Indicatio ns:Coronary artery disease involving [place] coronary artery of [place] heart without angina pectoris,Dyslipide mona TAKE 1 TABLET DAILY IN THE MORNING 90 Tablet 3 05/27/2023 Active Insulin Glargine Solostar 100 UNIT/ML Subcutaneous Solution Pen-injector (Lantus SoloStar)Indicatio ns:DM type 2 causing renal disease, not at goal ([facility]) INJECT 20 UNITS SUBCUTANEOUSLY TWICE DAILY 30 mL 2 07/08/2023 Active Digoxin 125 MCG Oral Tablet (Lanoxin)Indicatio ns:Chronic systolic heart failure (HCC),Coronary artery disease involving [place] coronary artery of [place] heart without angina pectoris Take 1 Tablet [...] as of this encounter (statuses as of 12/09/2023) Active Problems Problem Noted Date Diagnosed Date 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 Chronic kidney disease, stage 3a 01/14/2021 Overview: Per CKD protocol Type 2 diabetes mellitus wit h stage 3a chronic kidney disease 12/10/2020 Overview: Per CKD protocol Chronic systolic heart failure 11/21/2020 DM type 2 causing renal disease, 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, in full remission 12/07/2018 Old [place] (myocardial infarction) 03/31/2018 Heart failure, systolic, due to CAD 03/31/2018 Lymphedema of both lower extremities 03/31/2018 Dyslipidemia 02/18/2018 Coronary artery disease invo lving [place] coronary artery of [place] heart without angina pectoris 12/10/2017 PAF (paroxysmal atrial fibrillation) 12/10/2017 Type 2 diabetes mellitus wit h hemoglobin A1c goal of less than 8.0% 09/08/2013 Overview: ICD-10 update of inactive term DJD, CERVICAL SPINE 04/12/2002 GENERAL OSTEOARTHROSIS documented as of this encounter (statuses as of 12/09/2023) Resolved Problems Problem Noted Date Diagnosed Date [...] as of this encounter (statuses as of 12/09/2023) Immunizations Name Administration Dates Next Due COVID-19 mRNA, LNP-s, No Pre serve, 2-Dose Series ([employer]) 07/23/2021,11/14/2020,10/24/2020 COVID-19, MRNA-LNP, 23-24, P F, 30 MCG/0.3 mL, 12 YRS AND ABOVE, IM ([employer]-Comirzkipster) 05/26/2023 Covid-19, Mrna, Lnp-s, Pf, B ivalent, 30 Mcg, IM, 12 yrs and above ([employer]) 05/26/2022 Pneumococcal Conjugate Vacc, 13 Valent (Prevnar) [...] AM EDT Office Visit Hematology/Oncology [facility] [address] [place] [phone] Marquze Kolb MD [address] [place] [address] 12/14/2023 11:30 AM EDT Appointment Radiology, [address] [place] [id number] 12/17/2023 1:00 PM EDT Office Visit [place] [address] [place] [address] Jason West MD [address] [place] [facility] [place] [address] 02/21/2024 9:30 AM EDT Office Visit Cardiology, [facility] [address] [place] [address] Aurelio Viera PA-C [address] [place] [address] 03/08/2024 10:00 AM EDT Cardiac Studies Cardiology, [facility] [address] [place] [address] [facility] [address] [place] [address] Health Maintenance Due Date Last Done Comments Hepatitis C Screening 1963 GFR 09/08/2023 03/08/2023, 03/0 09/2022, 01/13/2022, Additional history exists HbA1c 09/08/2023 03/08/2023, 03/0 09/2022, 01/13/2022, Additional history exists Albumin/Creatinine Ratio 10/03/2023 023, 08/28/2021, 11/18/2020, Additional history exists CKD PHOS USE SMARTSET 94718 10/03/2023 03/0 09/2022, 03/17/2021, 08/18/2019, Additional history exists CKD HGB USE SMARTSET 39119 03/08/202403/08, 10/02/2022, 07/29/2021, Additional history exists DIG [...] filedocumented as of this encounter Care Teams Primary Clinician Relationship Specialty Start Date End Date Jason West MD [address] [place] [address] PCP - General 02/06/03 documented as of this encounter
--- OUTSIDE RECORDS SUMMARY | 2023-12-21 08:54 | External Medical Summary | Summary of Care ---
Author Name Unknown Organization [facility] Address [address] [place] [address] Phone [phone] Care Team Providers Care Document Control Associate Name Role Phone Jason West MD Primary Care Provider [phone]- [phone] Encounter Details Date Type Department Care Team (Late st Contact Info) Description 11/24/2023 Telephone Hematology/Oncology, [address] [address] Marquez Kolb MD [address] [place] [address] Allergies Active Allergy Reactions Criticality Noted Date Comments Hydroxyzine Hcl 05/12/2012 halluzinating Cetirizine & Related 02/11/1999 HALLUCINATIONS documented as of this encounter (statuses as of 11/26/2023) Medications Medication Sig Dispensed Refills Start Date End Date Status MULTIVITAMIN/INFORMATION TECHNOLOGY DATA ANALYST AL FORMULA TABS OR 1 TABLET DAILY 0 0 12/02/2001 Active SYSTANE PRESERVATIVE FREE 0.4-0.3 % OP SOLNIndications:Ot her anterior corneal dystrophies 1 gtt OU q2h WA 1 box 6 12/03/2008 Active CALCIUM 2200-9753 MG-UNIT PO CHEW Take 1 Tablet by [...] 81 MG TBECIndications:Co ronary artery disease involving [place] coronary artery of [place] heart without angina pectoris Take 1 Tab [...] Tablet Sublingual (Nitrostat)Indicat ions:Coronary artery disease involving [place] coronary artery of [place] heart without angina pectoris,Old [place] (myocardial infarction) Place 1 Tablet under the [...] systolic heart failure (HCC),Coronary artery disease involving [place] coronary artery of [place] heart without angina pectoris TAKE 1 TAB BY MOUTH SHORTLY BEFORE OR UPON RISING IN THE MORNING, AT MIDDAY, AND IN THE LATE AFTERNOON (NO LATER THAN 6PM) 270 Tablet 3 03/25/2023 Active Insulin Pen Needle 32G X 5 MMIndications:DM type 2 causing renal disease, not at goal ([facility]) use to inject lantus twice per day 200 Each 3 03/26/2023 Active OneTouch Verio In Vitro Strip (Glucose Blood)Indications: DM type 2 causing renal disease ([facility]) Check blood sugars one time daily. Dx E11.9 300 Strip 2 05/03/2023 Active glipiZIDE 5 MG Oral Tablet (Glucotrol) Take 1 Tablet by mouth in the morning and 1 Tablet before bedtime. 30 minutes before a meal. 180 Tablet 1 05/27/2023 Active Atorvastatin Calcium 40 MG Oral Tablet (Lipitor)Indicatio ns:Coronary artery disease involving [place] coronary artery of [place] heart without angina pectoris,Dyslipide mona TAKE 1 TABLET DAILY IN THE MORNING 90 Tablet 3 05/27/2023 Active Insulin Glargine Solostar 100 UNIT/ML Subcutaneous Solution Pen-injector (Lantus SoloStar)Indicatio ns:DM type 2 causing renal disease, 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) INJECT 20 UNITS SUBCUTANEOUSLY TWICE DAILY 30 mL 2 07/08/2023 Active Digoxin 125 MCG Oral Tablet (Lanoxin)Indicatio ns:Chronic systolic heart failure (HCC),Coronary artery disease involving [place] coronary artery of [place] heart without angina pectoris Take 1 Tablet [...] single episode, in full remission 12/07/2018 Old [place] (myocardial infarction) 03/31/2018 Heart failure, systolic, due to CAD 03/31/2018 Lymphedema of both lower extremities 03/31/2018 Dyslipidemia 02/18/2018 Coronary artery disease invo lving [place] coronary artery of [place] heart without angina pectoris 12/10/2017 PAF (paroxysmal [...] mRNA, LNP-s, No Pre serve, 2-Dose Series ([employer]) 07/23/2021,11/14/2020,10/24/2020 COVID-19, MRNA-LNP, 23-24, P F, 30 MCG/0.3 mL, 12 YRS AND ABOVE, IM ([employer]-Comirnaty) 05/26/2023 Covid-19, Mrna, Lnp-s, Pf, B ivalent, 30 Mcg, IM, 12 yrs and above ([employer]) 05/26/2022 Diptheria/Tetanus (Adult) 05/02/1992 Pneumococcal Conjugate Vacc, [...] encounter Miscellaneous Notes * Telephone Encounter - Zeyad Hernandez, RN - 11/26/2023 9:11 AM EDT Scheduling- [...] our organization) Requested appt date: Authorizing: Marquez Kolb MD in HEM/ONC [facility] Referral: [id number] (Pending Review) Priority: Within 10 days (routine) 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] Called [facility] Rad ONC No answer will try again tomorrow and will fx referral documented in this encounter Plan of Treatment Upcoming Encounters Date Type Department Care Team (Late st Contact Info) Description 12/06/2023 8:40 AM EDT Office Visit Otolaryngology [facility] [address] [address] Raymon Lord PA-C [address] [place] [address] 12/17/2023 1:00 PM EDT Office Visit [place] [address] [place] [facility] [place] [address] Jason West MD [address] [place] [facility] [address] 02/09/2024 3:00 PM EDT Office Visit Cardiology, [facility] [address] [place] [address] Aurelio Viera PA-C [address] [place] [address] 03/08/2024 10:00 AM EDT Cardiac Studies Cardiology, [facility] [address] [place] [address] [facility] [address] [place] [address] Health Maintenance Due Date Last Done Comments Hepatitis C Screening 1963 GFR 09/08/2023 03/08/2023, 03/0 09/2022, 01/13/2022, Additional history exists HbA1c 09/08/2023 03/08/2023, 03/0 09/2022, 01/13/2022, Additional history exists Albumin/Creatinine Ratio 10/03/2023 023, 08/28/2021, 11/18/2020, Additional history exists CKD PHOS USE SMARTSET 75195 10/03/2023 03/0 09/2022, 03/17/2021, 08/18/2019, Additional history exists CKD HGB USE SMARTSET 01251 03/08/202403/08, 10/02/2022, 07/29/2021, Additional history exists DIG [...] filedocumented as of this encounter Care Teams Document Control Associate Relationship Specialty Start Date End Date Jason West MD [address] [place] [address] PCP - General 02/06/03 documented as of this encounter
--- OUTSIDE RECORDS SUMMARY | 2023-12-21 08:55 | External Medical Summary | Summary of Care ---
Author Name Unknown Organization [facility] Address [address] [place] [address] Phone [phone] Care Team Providers Care Global Director Air And Climate Change Name Role Phone Jason West MD Primary Care Provider +1- [phone] Encounter Details Date Type Department Care Team (Late st Contact Info) Description 11/24/2023 Telephone Hematology/Oncology, [address] [address] Marquez Kolb MD [address] [place] [address] Allergies Active Allergy Reactions Criticality Noted Date Comments Hydroxyzine Hcl 05/12/2012 halluzinating Cetirizine & Related 02/11/1999 HALLUCINATIONS documented as of this encounter (statuses as of 11/25/2023) Medications Medication Sig Dispensed Refills Start Date End Date Status MULTIVITAMIN/ENGINE HOUSE HELPER AL FORMULA TABS OR 1 TABLET DAILY 0 0 12/02/2001 Active SYSTANE PRESERVATIVE FREE 0.4-0.3 % OP SOLNIndications:Ot her anterior corneal dystrophies 1 gtt OU q2h [place] 1 box 6 12/03/2008 Active CALCIUM 8821-2097 MG-UNIT PO CHEW Take 1 Tablet by [...] 81 MG TBECIndications:Co ronary artery disease involving [place] coronary artery of [place] heart without angina pectoris Take 1 Tab [...] Tablet Sublingual (Nitrostat)Indicat ions:Coronary artery disease involving [place] coronary artery of [place] heart without angina pectoris,[place] (myocardial infarction) [...] failure (HCC),Coronary artery disease involving [place] coronary artery of [place] heart without angina pectoris TAKE 1 TAB BY MOUTH SHORTLY BEFORE OR UPON RISING IN THE MORNING, AT MIDDAY, AND IN THE LATE AFTERNOON (NO LATER THAN 6PM) 270 Tablet 3 03/25/2023 Active Insulin Pen Needle 32G X 5 MMIndications:DM type 2 causing renal disease, not at goal ([facility]) use to inject lantus twice per day 200 Each 3 03/26/2023 Active OneTouch Verio In Vitro Strip (Glucose Blood)Indications: DM type 2 causing renal disease ([facility]) Check blood sugars one time daily. Dx E11.9 300 Strip 2 05/03/2023 Active glipiZIDE 5 MG Oral Tablet (Glucotrol) Take 1 Tablet by mouth in the morning and 1 Tablet before bedtime. 30 minutes before a meal. 180 Tablet 1 05/27/2023 Active Atorvastatin Calcium 40 MG Oral Tablet (Lipitor)Indicatio ns:Coronary artery disease involving [place] coronary artery of [place] heart without angina pectoris,Dyslipide mona TAKE 1 [...] failure (HCC),Coronary artery disease involving [place] coronary artery of [place] heart without angina pectoris Take 1 Tablet [...] Coronary artery disease invo lving [place] coronary artery of [place] heart without angina pectoris 12/10/2017 PAF (paroxysmal [...] mRNA, LNP-s, No Pre serve, 2-Dose Series ([employer]) 07/23/2021,11/14/2020,10/24/2020 COVID-19, MRNA-LNP, 23-24, P F, 30 MCG/0.3 mL, 12 YRS AND ABOVE, IM ([employer]-Comirnaty) 05/26/2023 Covid-19, Mrna, Lnp-s, Pf, B ivalent, 30 Mcg, IM, 12 yrs and above ([employer]) 05/26/2022 Diptheria/Tetanus (Adult) 05/02/1992 Pneumococcal Conjugate Vacc, [...] ADULT/PEDS OTOLARYNGOLOGY REFERRAL OP Status: Needs Scheduling (Mzie-ck-Otngdgh Pending) Requested appt date: Authorizing: Marquez Kolb MD in HEM/ONC [facility] Referral: [id number] (Pending Review) Priority: Within 10 days (routine) 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] Scheduling please call pt to schedule documented in this encounter Plan of Treatment Upcoming Encounters Date Type Department Care Team (Late st Contact Info) Description 12/17/2023 1:00 PM EDT Office Visit [place] [address] [place] [address] Jason West MD [address] [place] [address] 02/09/2024 3:00 PM EDT Office Visit Cardiology, [facility] [address] [place] [address] Aurelio Viera PA-C [address] [place] [address] 03/08/2024 10:00 AM EDT Cardiac Studies Cardiology, [facility] [address] [place] [address] [facility] [address] [place] [address] Health Maintenance Due Date Last Done Comments Hepatitis C Screening 1963 GFR 09/08/2023 03/08/2023, 0 09/2022, 01/13/2022, Additional history exists HbA1c 09/08/2023 03/08/2023, 03/0 09/2022, 01/13/2022, Additional history exists Albumin/Creatinine Ratio 10/03/2023 023, 08/28/2021, 11/18/2020, Additional history exists CKD PHOS USE SMARTSET 52314 10/03/2023 03/0 09/2022, 03/17/2021, 08/18/2019, Additional history exists CKD HGB USE SMARTSET 96856 03/08/202403/08, 10/02/2022, 07/29/2021, Additional history exists DIG [...] filedocumented as of this encounter Care Teams Global Director Air And Climate Change Relationship Specialty Start Date End Date Jason West MD [address] [place] [address] PCP - General 02/06/03 documented as of this encounter
--- OUTSIDE RECORDS SUMMARY | 2023-12-21 08:55 | External Medical Summary | Summary of Care ---
Author Name Unknown Organization [facility] Address [address] [place] [address] Phone [phone] Care Team Providers Care Maint Mechanic Name Role Phone Jason West MD Primary Care Provider [phone]- [phone] Encounter Details Date Type Department Care Team (Late st Contact Info) Description 11/24/2023 Telephone Hematology/Oncology, [address] [address] Marquez Kolb MD [address] [place] [address] Allergies Active Allergy Reactions Criticality Noted Date Comments Hydroxyzine Hcl 05/12/2012 halluzinating Cetirizine & Related 02/11/1999 HALLUCINATIONS documented as of this encounter (statuses as of 11/25/2023) Medications Medication Sig Dispensed Refills Start Date End Date Status MULTIVITAMIN/SENIOR COMPENSATION ANALYST AL FORMULA TABS OR 1 TABLET DAILY 0 0 12/02/2001 Active SYSTANE PRESERVATIVE FREE 0.4-0.3 % OP SOLNIndications:Ot her anterior corneal dystrophies 1 gtt OU q2h WA 1 box 6 12/03/2008 Active CALCIUM 1744-2271 MG-UNIT PO CHEW Take 1 Tablet by [...] 81 MG TBECIndications:Co ronary artery disease involving [place] coronary artery of [place] heart without angina pectoris Take 1 Tab [...] Tablet Sublingual (Nitrostat)Indicat ions:Coronary artery disease involving [place] coronary artery of [place] heart without angina pectoris,[place] (myocardial infarction) Place 1 Tablet under the [...] systolic heart failure (HCC),Coronary artery disease involving [place] coronary artery of [place] heart without angina pectoris TAKE 1 TAB BY MOUTH SHORTLY BEFORE OR UPON RISING IN THE MORNING, AT MIDDAY, AND IN THE LATE AFTERNOON (NO LATER THAN 6PM) 270 Tablet 3 03/25/2023 Active Insulin Pen Needle 32G X 5 MMIndications:DM type 2 causing renal disease, not at goal ([facility]) use to inject lantus twice per day 200 Each 3 03/26/2023 Active OneTouch Verio In Vitro Strip (Glucose Blood)Indications: DM type 2 causing renal disease ([facility]) Check blood sugars one time daily. Dx E11.9 300 Strip 2 05/03/2023 Active glipiZIDE 5 MG Oral Tablet (Glucotrol) Take 1 Tablet by mouth in the morning and 1 Tablet before bedtime. 30 minutes before a meal. 180 Tablet 1 05/27/2023 Active Atorvastatin Calcium 40 MG Oral Tablet (Lipitor)Indicatio ns:Coronary artery disease involving [place] coronary artery of [place] heart without angina pectoris,Dyslipide mona TAKE 1 TABLET DAILY IN THE MORNING 90 Tablet 3 05/27/2023 Active Insulin Glargine Solostar 100 UNIT/ML Subcutaneous Solution Pen-injector (Lantus SoloStar)Indicatio ns:DM type 2 causing renal disease, 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) INJECT 20 UNITS SUBCUTANEOUSLY TWICE DAILY 30 mL 2 07/08/2023 Active Digoxin 125 MCG Oral Tablet (Lanoxin)Indicatio ns:Chronic systolic heart failure (HCC),Coronary artery disease involving [place] coronary artery of [place] heart without angina pectoris Take 1 Tablet [...] single episode, in full remission 12/07/2018 [place] (myocardial infarction) 03/31/2018 Heart failure, systolic, due to CAD 03/31/2018 Lymphedema of both lower extremities 03/31/2018 Dyslipidemia 02/18/2018 Coronary artery disease invo lving [place] coronary artery of [place] heart without angina pectoris 12/10/2017 PAF (paroxysmal [...] mRNA, LNP-s, No Pre serve, 2-Dose Series ([employer]) 07/23/2021,11/14/2020,10/24/2020 COVID-19, MRNA-LNP, 23-24, P F, 30 MCG/0.3 mL, 12 YRS AND ABOVE, IM ([employer]-Comirnaty) 05/26/2023 Covid-19, Mrna, Lnp-s, Pf, B ivalent, 30 Mcg, IM, 12 yrs and above ([employer]) 05/26/2022 Diptheria/Tetanus (Adult) 05/02/1992 Pneumococcal Conjugate Vacc, [...] date: Authorizing: Marquez Kolb MD in HEM/ONC [facility] Referral: [id number] (Pending Review) Priority: Within 10 days (routine) 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 [address] [facility] [place] [address] Aurelio Viera PA-C [address] [place] [address] 03/08/2024 10:00 AM EDT Cardiac Studies Cardiology, [facility] [address] [place] [address] [facility] [address] [place] [address] Health Maintenance Due Date Last Done Comments Hepatitis C Screening 1963 GFR 09/08/2023 03/08/2023, 03/0 09/2022, 01/13/2022, Additional history exists HbA1c 09/08/2023 03/08/2023, 03/0 09/2022, 01/13/2022, Additional history exists Albumin/Creatinine Ratio 10/03/2023 023, 08/28/2021, 11/18/2020, Additional history exists CKD PHOS USE SMARTSET 58613 10/03/2023 03/0 09/2022, 03/17/2021, 08/18/2019, Additional history exists CKD HGB USE SMARTSET 65527 03/08/202403/08, 10/02/2022, 07/29/2021, Additional history exists DIG [...] filedocumented as of this encounter Care Teams Maint Mechanic Relationship Specialty Start Date End Date Jason West MD [address] [place] [address] PCP - General 02/06/03 documented as of this encounter
--- OUTSIDE RECORDS SUMMARY | 2023-12-21 08:55 | External Medical Summary | Summary of Care ---
Author Name Unknown Organization [facility] Address [address] [place] [address] Phone [phone] Care Team Providers Care Senior Cytotechnologist Name Role Phone Jason West MD Primary Care Provider [phone]- [phone] Encounter Details Date Type Department Care Team (Late st Contact Info) Description 11/24/2023 Telephone Hematology/Oncology, [address] [address] Marquez Kolb MD [address] [place] [address] Allergies Active Allergy Reactions Criticality Noted Date Comments Hydroxyzine Hcl 05/12/2012 halluzinating Cetirizine & Related 02/11/1999 HALLUCINATIONS documented as of this encounter (statuses as of 11/25/2023) Medications Medication Sig Dispensed Refills Start Date End Date Status MULTIVITAMIN/HAT CONE INSPECTOR AL FORMULA TABS OR 1 TABLET DAILY 0 0 12/02/2001 Active SYSTANE PRESERVATIVE FREE 0.4-0.3 % OP SOLNIndications:Ot her anterior corneal dystrophies 1 gtt OU q2h WA 1 box 6 12/03/2008 Active CALCIUM 2656-9733 MG-UNIT PO CHEW Take 1 Tablet by [...] 81 MG TBECIndications:Co ronary artery disease involving [place] coronary artery of [place] heart without angina pectoris Take 1 Tab [...] Tablet Sublingual (Nitrostat)Indicat ions:Coronary artery disease involving [place] coronary artery of [place] heart without angina pectoris,Old [place] (myocardial infarction) Place 1 Tablet under the [...] systolic heart failure (HCC),Coronary artery disease involving [place] coronary artery of [place] heart without angina pectoris TAKE 1 TAB BY MOUTH SHORTLY BEFORE OR UPON RISING IN THE MORNING, AT MIDDAY, AND IN THE LATE AFTERNOON (NO LATER THAN 6PM) 270 Tablet 3 03/25/2023 Active Insulin Pen Needle 32G X 5 MMIndications:DM type 2 causing renal disease, not at goal ([facility]) use to inject lantus twice per day 200 Each 3 03/26/2023 Active OneTouch Verio In Vitro Strip (Glucose Blood)Indications: DM type 2 causing renal disease ([facility]) Check blood sugars one time daily. Dx E11.9 300 Strip 2 05/03/2023 Active glipiZIDE 5 MG Oral Tablet (Glucotrol) Take 1 Tablet by mouth in the morning and 1 Tablet before bedtime. 30 minutes before a meal. 180 Tablet 1 05/27/2023 Active Atorvastatin Calcium 40 MG Oral Tablet (Lipitor)Indicatio ns:Coronary artery disease involving [place] coronary artery of [place] heart without angina pectoris,Dyslipide mona TAKE 1 TABLET DAILY IN THE MORNING 90 Tablet 3 05/27/2023 Active Insulin Glargine Solostar 100 UNIT/ML Subcutaneous Solution Pen-injector (Lantus SoloStar)Indicatio ns:DM type 2 causing renal disease, 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) INJECT 20 UNITS SUBCUTANEOUSLY TWICE DAILY 30 mL 2 07/08/2023 Active Digoxin 125 MCG Oral Tablet (Lanoxin)Indicatio ns:Chronic systolic heart failure (HCC),Coronary artery disease involving [place] coronary artery of [place] heart without angina pectoris Take 1 Tablet [...] single episode, in full remission 12/07/2018 [place] (myocardial infarction) 03/31/2018 Heart failure, systolic, due to CAD 03/31/2018 Lymphedema of both lower extremities 03/31/2018 Dyslipidemia 02/18/2018 Coronary artery disease invo lving [place] coronary artery of [place] heart without angina pectoris 12/10/2017 PAF (paroxysmal [...] mRNA, LNP-s, No Pre serve, 2-Dose Series ([employer]) 07/23/2021,11/14/2020,10/24/2020 COVID-19, MRNA-LNP, 23-24, P F, 30 MCG/0.3 mL, 12 YRS AND ABOVE, IM ([employer]-Comirnaty) 05/26/2023 Covid-19, Mrna, Lnp-s, Pf, B ivalent, 30 Mcg, IM, 12 yrs and above ([employer]) 05/26/2022 Diptheria/Tetanus (Adult) 05/02/1992 Pneumococcal Conjugate Vacc, [...] date: Authorizing: Marquez Kolb MD in HEM/ONC [facility] Referral: [id number] (Pending Review) Priority: Within 10 days (routine) 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] Called [facility] Rad ONC No answer will try again tomorrow and will fx referral documented in this encounter Plan of Treatment Upcoming Encounters Date Type Department Care Team (Late st Contact Info) Description 12/17/2023 1:00 PM EDT Office Visit [facility] [address] [place] [phone] Jason West MD [address] [place] [address] 02/09/2024 3:00 PM EDT Office Visit Cardiology, [facility] [address] [place] [address] Aurelio Viera PA-C [address] [place] [address] 03/08/2024 10:00 AM EDT Cardiac Studies Cardiology, [facility] [address] [place] [address] [facility] [address] [place] [address] Health Maintenance Due Date Last Done Comments Hepatitis C Screening 1963 GFR 09/08/2023 03/08/2023, 03/0 09/2022, 01/13/2022, Additional history exists HbA1c 09/08/2023 03/08/2023, 03/0 09/2022, 01/13/2022, Additional history exists Albumin/Creatinine Ratio 10/03/2023 023, 08/28/2021, 11/18/2020, Additional history exists CKD PHOS USE SMARTSET 95925 10/03/2023 03/0 09/2022, 03/17/2021, 08/18/2019, Additional history exists CKD HGB USE SMARTSET 13142 03/08/202403/08, 10/02/2022, 07/29/2021, Additional history exists DIG [...] as of this encounter Care Teams Senior Cytotechnologist Relationship Specialty Start Date End Date Jason West MD [address] [place] [address] PCP - General 02/06/03 documented as of this encounter
--- OUTSIDE RECORDS SUMMARY | 2023-12-21 08:55 | External Medical Summary | Summary of Care ---
Author Name Unknown Organization [facility] Address [address] [place] [address] Phone [phone] Care Team Providers Care Plant And Equipment Worker Name Role Phone Jason West MD Primary Care Provider +1- [phone] Encounter Details Date Type Department Care Team (Late st Contact Info) Description 11/24/2023 Telephone Hematology/Oncology, [address] [address] Marquez Kolb MD [address] [place] [address] Allergies Active Allergy Reactions Criticality Noted Date Comments Hydroxyzine Hcl 05/12/2012 halluzinating Cetirizine & Related 02/11/1999 HALLUCINATIONS documented as of this encounter (statuses as of 11/25/2023) Medications Medication Sig Dispensed Refills Start Date End Date Status MULTIVITAMIN/LINING PRESSER AL FORMULA TABS OR 1 TABLET DAILY 0 0 12/02/2001 Active SYSTANE PRESERVATIVE FREE 0.4-0.3 % OP SOLNIndications:Ot her anterior corneal dystrophies 1 gtt OU q2h [place] 1 box 6 12/03/2008 Active CALCIUM 7662-6749 MG-UNIT PO CHEW Take 1 Tablet by [...] 81 MG TBECIndications:Co ronary artery disease involving [place] coronary artery of [place] heart without angina pectoris Take 1 Tab [...] Tablet Sublingual (Nitrostat)Indicat ions:Coronary artery disease involving [place] coronary artery of [place] heart without angina pectoris,[place] (myocardial infarction) [...] systolic heart failure (HCC),Coronary artery disease involving [place] coronary artery of [place] heart without angina pectoris TAKE 1 TAB BY MOUTH SHORTLY BEFORE OR UPON RISING IN THE MORNING, AT MIDDAY, AND IN THE LATE AFTERNOON (NO LATER THAN 6PM) 270 Tablet 3 03/25/2023 Active Insulin Pen Needle 32G X 5 MMIndications:DM type 2 causing renal disease, not at goal ([facility]) use to inject lantus twice per day 200 Each 3 03/26/2023 Active OneTouch Verio In Vitro Strip (Glucose Blood)Indications: DM type 2 causing renal disease ([facility]) Check blood sugars one time daily. Dx E11.9 300 Strip 2 05/03/2023 Active glipiZIDE 5 MG Oral Tablet (Glucotrol) Take 1 Tablet by mouth in the morning and 1 Tablet before bedtime. 30 minutes before a meal. 180 Tablet 1 05/27/2023 Active Atorvastatin Calcium 40 MG Oral Tablet (Lipitor)Indicatio ns:Coronary artery disease involving [place] coronary artery of [place] heart without angina pectoris,Dyslipide mona TAKE 1 TABLET DAILY IN THE MORNING 90 Tablet 3 05/27/2023 Active Insulin Glargine Solostar 100 UNIT/ML Subcutaneous Solution Pen-injector (Lantus SoloStar)Indicatio ns:DM type 2 causing renal disease, 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) INJECT 20 UNITS SUBCUTANEOUSLY TWICE DAILY 30 mL 2 07/08/2023 Active Digoxin 125 MCG Oral Tablet (Lanoxin)Indicatio ns:Chronic systolic heart failure (HCC),Coronary artery disease involving [place] coronary artery of [place] heart without angina pectoris Take 1 Tablet [...] Dyslipidemia 02/18/2018 Coronary artery disease invo lving [place] coronary artery of [place] heart without angina pectoris 12/10/2017 PAF (paroxysmal [...] mRNA, LNP-s, No Pre serve, 2-Dose Series ([employer]) 07/23/2021,11/14/2020,10/24/2020 COVID-19, MRNA-LNP, 23-24, P F, 30 MCG/0.3 mL, 12 YRS AND ABOVE, IM ([employer]-Comirnaty) 05/26/2023 Covid-19, Mrna, Lnp-s, Pf, B ivalent, 30 Mcg, IM, 12 yrs and above ([employer]) 05/26/2022 Diptheria/Tetanus (Adult) 05/02/1992 Pneumococcal Conjugate Vacc, [...] ADULT/PEDS OTOLARYNGOLOGY REFERRAL OP Status: Needs Scheduling (Oyfb-ya-Dkewjlq Pending) Requested appt date: Authorizing: Marquez Kolb MD in HEM/ONC [facility] Referral: [id number] (Pending Review) Priority: Within 10 days (routine) 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] Scheduling please call pt to schedule documented in this encounter Plan of Treatment Upcoming Encounters Date Type Department Care Team (Late st Contact Info) Description 12/17/2023 1:00 PM EDT Office Visit [facility] [address] [place] [address] Jason West MD [address] [place] [address] 02/09/2024 3:00 PM EDT Office Visit Cardiology, [facility] [address] [facility] [place] [address] Aurelio Viera PA-C [address] [place] [address] 03/08/2024 10:00 AM EDT Cardiac Studies Cardiology, [facility] [address] [facility] [place] [address] [facility] [address] [place] [address] Health Maintenance Due Date Last Done Comments Hepatitis C Screening 1963 GFR 09/08/2023 03/08/2023, 03/0 09/2022, 01/13/2022, Additional history exists HbA1c 09/08/2023 03/08/2023, 03/0 09/2022, 01/13/2022, Additional history exists Albumin/Creatinine Ratio 10/03/2023 023, 08/28/2021, 11/18/2020, Additional history exists CKD PHOS USE SMARTSET 40795 10/03/2023 03/0 09/2022, 03/17/2021, 08/18/2019, Additional history exists CKD HGB USE SMARTSET 25860 03/08/202403/08, 10/02/2022, 07/29/2021, Additional history exists DIG [...] filedocumented as of this encounter Care Teams Plant And Equipment Worker Relationship Specialty Start Date End Date Jason West MD [address] [place] [address] PCP - General 02/06/03 documented as of this encounter
--- OUTSIDE RECORDS SUMMARY | 2023-12-21 08:56 | External Medical Summary | Summary of Care ---
Author Name Unknown Organization [facility] Address [address] [place] [address] Phone [phone] Care Team Providers Care Plate Painter Apprentice Name Role Phone Jason West MD Primary Care Provider [phone]- [phone] Encounter Details Date Type Department Care Team (Late st Contact Info) Description 11/24/2023 Telephone Hematology/Oncology, [address] [address] Marquez Kolb MD [address] [place] [address] Allergies Active Allergy Reactions Criticality Noted Date Comments Hydroxyzine Hcl 05/12/2012 halluzinating Cetirizine & Related 02/11/1999 HALLUCINATIONS documented as of this encounter (statuses as of 11/25/2023) Medications Medication Sig Dispensed Refills Start Date End Date Status MULTIVITAMIN/FARM IMPLEMENT MECHANIC AL FORMULA TABS OR 1 TABLET DAILY 0 0 12/02/2001 Active SYSTANE PRESERVATIVE FREE 0.4-0.3 % OP SOLNIndications:Ot her anterior corneal dystrophies 1 gtt OU q2h WA 1 box 6 12/03/2008 Active CALCIUM 1450-6612 MG-UNIT PO CHEW Take 1 Tablet by [...] 81 MG TBECIndications:Co ronary artery disease involving [place] coronary artery of [place] heart without angina pectoris Take 1 Tab [...] Tablet Sublingual (Nitrostat)Indicat ions:Coronary artery disease involving [place] coronary artery of [place] heart without angina pectoris,Old [place] (myocardial infarction) Place 1 Tablet under the [...] systolic heart failure (HCC),Coronary artery disease involving [place] coronary artery of [place] heart without angina pectoris TAKE 1 TAB [...] Oral Tablet (Lipitor)Indicatio ns:Coronary artery disease involving [place] coronary artery of [place] heart without angina pectoris,Dyslipide mona TAKE 1 TABLET DAILY IN THE MORNING 90 Tablet 3 05/27/2023 Active Insulin Glargine Solostar 100 UNIT/ML Subcutaneous Solution Pen-injector (Lantus SoloStar)Indicatio ns:DM type 2 causing renal disease, 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) INJECT 20 UNITS SUBCUTANEOUSLY TWICE DAILY 30 mL 2 07/08/2023 Active Digoxin 125 MCG Oral Tablet (Lanoxin)Indicatio ns:Chronic systolic heart failure (HCC),Coronary artery disease involving [place] coronary artery of [place] heart without angina pectoris Take 1 Tablet [...] single episode, in full remission 12/07/2018 [place] (myocardial infarction) 03/31/2018 Heart failure, systolic, due to CAD 03/31/2018 Lymphedema of both lower extremities 03/31/2018 Dyslipidemia 02/18/2018 Coronary artery disease invo lving [place] coronary artery of [place] heart without angina pectoris 12/10/2017 PAF (paroxysmal [...] mRNA, LNP-s, No Pre serve, 2-Dose Series ([employer]) 07/23/2021,11/14/2020,10/24/2020 COVID-19, MRNA-LNP, 23-24, P F, 30 MCG/0.3 mL, 12 YRS AND ABOVE, IM ([employer]-Comirnaty) 05/26/2023 Covid-19, Mrna, Lnp-s, Pf, B ivalent, 30 Mcg, IM, 12 yrs and above ([employer]) 05/26/2022 Diptheria/Tetanus (Adult) 05/02/1992 Pneumococcal Conjugate Vacc, [...] Authorizing: Marquez Kolb MD in HEM/ONC [facility] Referral: [id number] (Pending Review) Priority: Within 10 days (routine) 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] Called [facility] Rad ONC No answer will try again tomorrow and will fx referral documented in this encounter Plan of Treatment Upcoming Encounters Date Type Department Care Team (Late st Contact Info) Description 12/17/2023 1:00 PM EDT Office Visit [place] [address] [place] [address] Jason West MD [address] [place] [address] 02/09/2024 3:00 PM EDT Office Visit Cardiology, [facility] [address] [facility] [place] [address] Aurelio Viera PA-C [address] [place] [address] 03/08/2024 10:00 AM EDT Cardiac Studies Cardiology, [facility] [address] [place] [address] [facility] [address] [place] [address] Health Maintenance Due Date Last Done Comments Hepatitis C Screening 1963 GFR 09/08/2023 03/08/2023, 03/0 09/2022, 01/13/2022, Additional history exists HbA1c 09/08/2023 03/08/2023, 03/0 09/2022, 01/13/2022, Additional history exists Albumin/Creatinine Ratio 10/03/2023 023, 08/28/2021, 11/18/2020, Additional history exists CKD PHOS USE SMARTSET 19340 10/03/2023 03/0 09/2022, 03/17/2021, 08/18/2019, Additional history exists CKD HGB USE SMARTSET 25727 03/08/202403/08, 10/02/2022, 07/29/2021, Additional history exists DIG [...] filedocumented as of this encounter Care Teams Plate Painter Apprentice Relationship Specialty Start Date End Date Jason West MD [address] [place] [address] PCP - General 02/06/03 documented as of this encounter
--- OUTSIDE RECORDS SUMMARY | 2023-12-21 08:56 | External Medical Summary | Summary of Care ---
Author Name Unknown Organization [facility] Address [address] [place] [address] Phone [phone] Care Team Providers Care Supervisor Hard Candy Name Role Phone Jason West MD Primary Care Provider [phone]- [phone] Encounter Details Date Type Department Care Team (Late st Contact Info) Description 11/24/2023 Telephone Hematology/Oncology, [address] [address] Marquez Kolb MD [address] [place] [address] Allergies Active Allergy Reactions Criticality Noted Date Comments Hydroxyzine Hcl 05/12/2012 halluzinating Cetirizine & Related 02/11/1999 HALLUCINATIONS documented as of this encounter (statuses as of 11/24/2023) Medications Medication Sig Dispensed Refills Start Date End Date Status MULTIVITAMIN/REPAIR DEPARTMENT MANAGER AL FORMULA TABS OR 1 TABLET DAILY 0 0 12/02/2001 Active SYSTANE PRESERVATIVE FREE 0.4-0.3 % OP SOLNIndications:Ot her anterior corneal dystrophies 1 gtt OU q2h WA 1 box 6 12/03/2008 Active CALCIUM 0443-6342 MG-UNIT PO CHEW Take 1 Tablet by [...] 81 MG TBECIndications:Co ronary artery disease involving [place] coronary artery of [place] heart without angina pectoris Take 1 Tab [...] Tablet Sublingual (Nitrostat)Indicat ions:Coronary artery disease involving [place] coronary artery of [place] heart without angina pectoris,Old [place] (myocardial infarction) [...] systolic heart failure (HCC),Coronary artery disease involving [place] coronary artery of [place] heart without angina pectoris TAKE 1 TAB [...] Oral Tablet (Lipitor)Indicatio ns:Coronary artery disease involving [place] coronary artery of [place] heart without angina pectoris,Dyslipide mona TAKE 1 TABLET DAILY IN THE MORNING 90 Tablet 3 05/27/2023 Active Insulin Glargine Solostar 100 UNIT/ML Subcutaneous Solution Pen-injector (Lantus SoloStar)Indicatio ns:DM type 2 causing renal disease, 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) INJECT 20 UNITS SUBCUTANEOUSLY TWICE DAILY 30 mL 2 07/08/2023 Active Digoxin 125 MCG Oral Tablet (Lanoxin)Indicatio ns:Chronic systolic heart failure (HCC),Coronary artery disease involving [place] coronary artery of [place] heart without angina pectoris Take 1 Tablet [...] as of this encounter (statuses as of 11/24/2023) Active Problems Problem Noted Date Diagnosed Date [...] Dyslipidemia 02/18/2018 Coronary artery disease invo lving [place] coronary artery of [place] heart without angina pectoris 12/10/2017 PAF (paroxysmal atrial fibrillation) 12/10/2017 Type 2 diabetes mellitus wit h hemoglobin A1c goal of less than 8.0% 09/08/2013 Overview: ICD-10 update of inactive term DJD, CERVICAL SPINE 04/12/2002 GENERAL OSTEOARTHROSIS documented as of this encounter (statuses as of 11/24/2023) Resolved Problems Problem Noted Date Diagnosed Date [...] as of this encounter (statuses as of 11/24/2023) Immunizations Name Administration Dates Next Due COVID-19 mRNA, LNP-s, No Pre serve, 2-Dose Series ([employer]) 07/23/2021,11/14/2020,10/24/2020 COVID-19, MRNA-LNP, 23-24, P F, 30 MCG/0.3 mL, 12 YRS AND ABOVE, IM ([employer]-Comirnaty) 05/26/2023 Covid-19, Mrna, Lnp-s, Pf, B ivalent, 30 Mcg, IM, 12 yrs and above ([employer]) 05/26/2022 Diptheria/Tetanus (Adult) 05/02/1992 Pneumococcal Conjugate Vacc, [...] ADULT/PEDS OTOLARYNGOLOGY REFERRAL OP Status: Needs Scheduling ([id number]-Flryhxb Pending) Requested appt date: Authorizing: Marquez Kolb MD in HEM/ONC [facility] Referral: [id number] (Pending Review) Priority: Within 10 days (routine) 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] Scheduling please call pt to schedule documented in this encounter Plan of Treatment Upcoming Encounters Date Type Department Care Team (Late st Contact Info) Description 12/17/2023 1:00 PM EDT Office Visit [place] [address] [place] [address] Jason West MD [address] [place] [address] 02/09/2024 3:00 PM EDT Office Visit Cardiology, [facility] [address] [place] [address] Aurelio Viera PA-C [address] [place] [address] 03/08/2024 10:00 AM EDT Cardiac Studies Cardiology, [facility] [address] [place] [address] [facility] [address] [place] [address] Health Maintenance Due Date Last Done Comments Hepatitis C Screening 1963 GFR 09/08/2023 03/08/2023, 0 09/2022, 01/13/2022, Additional history exists HbA1c 09/08/2023 03/08/2023, 03/0 09/2022, 01/13/2022, Additional history exists Albumin/Creatinine Ratio 10/03/2023 023, 08/28/2021, 11/18/2020, Additional history exists CKD PHOS USE SMARTSET 53089 10/03/2023 03/0 09/2022, 03/17/2021, 08/18/2019, Additional history exists CKD HGB USE SMARTSET 82865 03/08/202403/08, 10/02/2022, 07/29/2021, Additional history exists DIG [...] filedocumented as of this encounter Care Teams Supervisor Hard Candy Relationship Specialty Start Date End Date Jason West MD [address] [place] [address] PCP - General 02/06/03 documented as of this encounter
--- OUTSIDE RECORDS SUMMARY | 2023-12-21 08:56 | External Medical Summary | Summary of Care ---
Author Name Unknown Organization [facility] Address [address] [place] [address] Phone [phone] Care Team Providers Care Pest Controller Assistant Name Role Phone Jason West MD Primary Care Provider +1- [phone] Encounter Details Date Type Department Care Team (Late st Contact Info) Description 11/24/2023 Telephone Hematology/Oncology, [address] [address] Marquez Kolb MD [address] [place] [address] Allergies Active Allergy Reactions Criticality Noted Date Comments Hydroxyzine Hcl 05/12/2012 halluzinating Cetirizine & Related 02/11/1999 HALLUCINATIONS documented as of this encounter (statuses as of 11/24/2023) Medications Medication Sig Dispensed Refills Start Date End Date Status MULTIVITAMIN/FINAL INSPECTOR MOVEMENT ASSEMBLY AL FORMULA TABS OR 1 TABLET DAILY 0 0 12/02/2001 Active SYSTANE PRESERVATIVE FREE 0.4-0.3 % OP SOLNIndications:Ot her anterior corneal dystrophies 1 gtt OU q2h WA 1 box 6 12/03/2008 Active CALCIUM 8961-5060 MG-UNIT PO CHEW Take 1 Tablet by [...] 81 MG TBECIndications:Co ronary artery disease involving [place] coronary artery of [place] heart without angina pectoris Take 1 Tab [...] Tablet Sublingual (Nitrostat)Indicat ions:Coronary artery disease involving [place] coronary artery of [place] heart without angina pectoris,Old [place] (myocardial infarction) Place 1 Tablet under the [...] systolic heart failure (HCC),Coronary artery disease involving [place] coronary artery of [place] heart without angina pectoris TAKE 1 TAB BY MOUTH SHORTLY BEFORE OR UPON RISING IN THE MORNING, AT MIDDAY, AND IN THE LATE AFTERNOON (NO LATER THAN 6PM) 270 Tablet 3 03/25/2023 Active Insulin Pen Needle 32G X 5 MMIndications:DM type 2 causing renal disease, not at goal ([facility]) use to inject lantus twice per day 200 Each 3 03/26/2023 Active OneTouch Verio In Vitro Strip (Glucose Blood)Indications: DM type 2 causing renal disease ([facility]) Check blood sugars one time daily. Dx E11.9 300 Strip 2 05/03/2023 Active glipiZIDE 5 MG Oral Tablet (Glucotrol) Take 1 Tablet by mouth in the morning and 1 Tablet before bedtime. 30 minutes before a meal. 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) INJECT 20 UNITS SUBCUTANEOUSLY TWICE DAILY 30 mL 2 07/08/2023 Active Digoxin 125 MCG Oral Tablet (Lanoxin)Indicatio ns:Chronic systolic heart failure (HCC),Coronary artery disease involving [place] coronary artery of [place] heart without angina pectoris Take 1 Tablet [...] single episode, in full remission 12/07/2018 [place] (myocardial infarction) 03/31/2018 Heart failure, systolic, due to CAD 03/31/2018 Lymphedema of both lower extremities 03/31/2018 Dyslipidemia 02/18/2018 Coronary artery disease invo lving [place] coronary artery of [place] heart without angina pectoris 12/10/2017 PAF (paroxysmal [...] mRNA, LNP-s, No Pre serve, 2-Dose Series ([employer]) 07/23/2021,11/14/2020,10/24/2020 COVID-19, MRNA-LNP, 23-24, P F, 30 MCG/0.3 mL, 12 YRS AND ABOVE, IM ([employer]-Comirnaty) 05/26/2023 Covid-19, Mrna, Lnp-s, Pf, B ivalent, 30 Mcg, IM, 12 yrs and above ([employer]) 05/26/2022 Diptheria/Tetanus (Adult) 05/02/1992 Pneumococcal Conjugate Vacc, [...] ADULT/PEDS OTOLARYNGOLOGY REFERRAL OP Status: Needs Scheduling (Mtfq-er-Darclwm Pending) Requested appt date: Authorizing: Marquez Kolb MD in HEM/ONC [facility] Referral: [id number] (Pending Review) Priority: Within 10 days (routine) 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] Scheduling please call pt to schedule documented in this encounter Plan of Treatment Upcoming Encounters Date Type Department Care Team (Late st Contact Info) Description 12/17/2023 1:00 PM EDT Office Visit [place] [facility] [address] [place] [address] Jason West MD [address] [place] [address] 02/09/2024 3:00 PM EDT Office Visit Cardiology, [facility] [address] [place] [address] Aurelio Viera PA-C [address] [place] [address] 03/08/2024 10:00 AM EDT Cardiac Studies Cardiology, [facility] [address] [place] [address] [facility] [address] [place] [address] Health Maintenance Due Date Last Done Comments Hepatitis C Screening 1963 GFR 09/08/2023 03/08/2023, 0 09/2022, 01/13/2022, Additional history exists HbA1c 09/08/2023 03/08/2023, 03/0 09/2022, 01/13/2022, Additional history exists Albumin/Creatinine Ratio 10/03/2023 023, 08/28/2021, 11/18/2020, Additional history exists CKD PHOS USE SMARTSET 47390 10/03/2023 03/0 09/2022, 03/17/2021, 08/18/2019, Additional history exists CKD HGB USE SMARTSET 76500 03/08/202403/08, 10/02/2022, 07/29/2021, Additional history exists DIG [...] filedocumented as of this encounter Care Teams Pest Controller Assistant Relationship Specialty Start Date End Date Jason West MD [address] [place] [address] PCP - General 02/06/03 documented as of this encounter
--- OUTSIDE RECORDS SUMMARY | 2023-12-21 08:56 | External Medical Summary | Summary of Care ---
Author Name Unknown Organization [facility] Address [address] [place] [address] Phone [phone] Care Team Providers Care Financial Systems Administrator Name Role Phone Jason West MD Primary Care Provider +1- [phone] Encounter Details Date Type Department Care Team (Late st Contact Info) Description 11/24/2023 Telephone Hematology/Oncology, [address] [address] Marquez Kolb MD [address] [place] [address] Allergies Active Allergy Reactions Criticality Noted Date Comments Hydroxyzine Hcl 05/12/2012 halluzinating Cetirizine & Related 02/11/1999 HALLUCINATIONS documented as of this encounter (statuses as of 11/24/2023) Medications Medication Sig Dispensed Refills Start Date End Date Status MULTIVITAMIN/GARMENT MANUFACTURER AL FORMULA TABS OR 1 TABLET DAILY 0 0 12/02/2001 Active SYSTANE PRESERVATIVE FREE 0.4-0.3 % OP SOLNIndications:Ot her anterior corneal dystrophies 1 gtt OU q2h WA 1 box 6 12/03/2008 Active CALCIUM 2920-2912 MG-UNIT PO CHEW Take 1 Tablet by [...] 81 MG TBECIndications:Co ronary artery disease involving [place] coronary artery of [place] heart without angina pectoris Take 1 Tab [...] Tablet Sublingual (Nitrostat)Indicat ions:Coronary artery disease involving [place] coronary artery of [place] heart without angina pectoris,Old [place] (myocardial infarction) Place 1 Tablet under the [...] systolic heart failure (HCC),Coronary artery disease involving [place] coronary artery of [place] heart without angina pectoris TAKE 1 TAB [...] Oral Tablet (Lipitor)Indicatio ns:Coronary artery disease involving [place] coronary artery of [place] heart without angina pectoris,Dyslipide mona TAKE 1 TABLET DAILY IN THE MORNING 90 Tablet 3 05/27/2023 Active Insulin Glargine Solostar 100 UNIT/ML Subcutaneous Solution Pen-injector (Lantus [employer])Indicatio ns:DM type 2 causing renal disease, 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) INJECT 20 UNITS SUBCUTANEOUSLY TWICE DAILY 30 mL 2 07/08/2023 Active Digoxin 125 MCG Oral Tablet (Lanoxin)Indicatio ns:Chronic systolic heart failure (HCC),Coronary artery disease involving [place] coronary artery of [place] heart without angina pectoris Take 1 Tablet [...] single episode, in full remission 12/07/2018 [place] (myocardial infarction) 03/31/2018 Heart failure, systolic, due to CAD 03/31/2018 Lymphedema of both lower extremities 03/31/2018 Dyslipidemia 02/18/2018 Coronary artery disease invo lving [place] coronary artery of [place] heart without angina pectoris 12/10/2017 PAF (paroxysmal [...] mRNA, LNP-s, No Pre serve, 2-Dose Series (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] Called [facility] Rad ONC No answer will try again tomorrow and will fx referral documented in this encounter Plan of Treatment Upcoming Encounters Date Type Department Care Team (Late st Contact Info) Description 12/17/2023 1:00 PM EDT [facility] [address] [facility] [address] [facility] [address] [facility] [address] 02/09/2024 3:00 PM EDT Office Visit Cardiology, [facility] [address] [place] [address] Aurelio Viear PA-C [address] [place] [address] 03/08/2024 10:00 AM EDT Cardiac Studies Cardiology, [facility] [address] [place] [address] [place] [address] [place] [address] Health Maintenance Due Date Last Done Comments Hepatitis C Screening 1963 GFR 09/08/2023 03/08/2023, 0 09/2022, 01/13/2022, Additional history exists HbA1c 09/08/2023 03/08/2023, 030 09/2022, 01/13/2022, Additional history exists Albumin/Creatinine Ratio 10/03/20232 023, 08/28/2021, 11/18/2020, Additional history exists CKD PHOS USE SMARTSET 50852 10/03/20[address] 09/2022, 03/17/2021, 08/18/2019, Additional history exists CKD HGB USE SMARTSET 44498 03/08/202403/08, 10/02/2022, 07/29/2021, Additional history exists DIG [...] filedocumented as of this encounter Care Teams Financial Systems Administrator Relationship Specialty Start Date End Date Jason West MD [address] [place] [address] PCP - General 02/06/03 documented as of this encounter
--- OUTSIDE RECORDS SUMMARY | 2023-12-21 08:56 | External Medical Summary | Summary of Care ---
Author Name Unknown Organization [facility] Address [address] [place] [address] Phone [phone] Care Team Providers Care Parking Enforcement Specialist Name Role Phone Jason West MD Primary Care Provider [phone] Reason for Referral * Evaluate & Treat - Unlimited Visits (Within 10 days (routine)) - Pending Review Specialty Diagnoses / Procedures Referred By Abdullahi melo Referred To Contact Radiation Oncology Diagnoses Malignant neoplasm of lower third of esophagus (HCC) Marquez Kolb MD [address] [place] [address] Referral ID Status Reason Start Date Expiration Date Visits Requested Visits Authorized [id number] Pending Review Specialty Services Required 11/24/2023 [id number] Question Answer Referral Priority Within 10 days (routine) Where should this appointment be scheduled? [facility] Comments Esophageal ca * Evaluate & Treat - Unlimited Visits (Within 10 days (routine)) - Pending Review Specialty Diagnoses / Procedures Referred By Abdullahi melo Referred To Contact Otolaryngology Diagnoses Parotid mass Marquez Kolb MD [address] [place] [address] Referral ID Status Reason Start Date Expiration Date Visits Requested Visits Authorized [id number] Pending Review Specialty Services Required 11/24/[phone] Question Answer Referral Priority Within 10 days (routine) Where should this appointment be scheduled? [facility] Reason for Referral Head/Neck/Cancer Conditions Reason for Visit * Reason Comments NEW PATIENT GL[facility] SANDER-GE [place] Carci noma * Evaluate & Treat - Unlimited Visits (Within 10 days (routine)) - Authorized Specialty Diagnoses / Procedures Referred By Contac t Referred To Contact Hematology/Oncology / Hematology Oncology Diagnoses GE junction carcinoma (HCC) Fer Solano MD [address] [place] [address] Referral ID Status Reason Start Date Expiration Date Visits Requested Visits Authorized [id number] Authorized Specialty Services Required 11/12/2023 11/11/2024 [id number] Encounter Details Date Type Department Care Team (Late st Contact Info) Description 11/24/2023 3:00 PM EDT Office Visit Hematology/Oncology [facility] [address] [place] [address] [place] [address] Marquez Kolb MD [address] [place] [address] Parotid mass*; Malignant neoplasm of lower third of esophagus (HCC) Allergies Active Allergy Reactions Criticality Noted Date Comments Hydroxyzine Hcl 05/12/2012 halluzinating Cetirizine & Related 02/11/1999 HALLUCINATIONS documented as of this encounter (statuses as of 11/24/2023) Medications Medication Sig Dispensed Refills Start Date End Date Status MULTIVITAMIN/CHILD CARE SITTER AL FORMULA TABS OR 1 TABLET DAILY 0 0 12/02/2001 Active SYSTANE PRESERVATIVE FREE 0.4-0.3 % OP SOLNIndications:Ot her anterior corneal dystrophies 1 gtt OU q2h [place] 1 box 6 12/03/2008 Active CALCIUM 4046-3986 MG-UNIT PO CHEW Take 1 Tablet by [...] 81 MG TBECIndications:Co ronary artery disease involving lovelock coronary artery of lovelock heart without angina pectoris Take 1 Tab [...] Tablet Sublingual (Nitrostat)Indicat ions:Coronary artery disease involving lovelock coronary artery of lovelock heart without angina pectoris,Old SC (myocardial infarction) Place 1 Tablet under the tongue every 5 minutes as needed for Pain, Chest. 25 Tablet 5 09/03/2022 Active Apixaban 5 MG Oral Tablet (Eliquis)Indicatio ns:PAF (paroxysmal atrial fibrillation) ([facility]) Take 1 Tablet by mouth in the morning and 1 Tablet before bedtime. 180 Tablet 3 01/01/2023 Active Midodrine HCl 5 MG Oral Tablet (Proamatine)Indica tions:Chronic systolic heart failure (HCC),Coronary artery disease involving lovelock coronary artery of lovelock heart without angina pectoris TAKE 1 TAB BY MOUTH SHORTLY BEFORE OR UPON RISING IN THE MORNING, AT MIDDAY, AND IN THE LATE AFTERNOON (NO LATER THAN 6PM) 270 Tablet 3 03/25/2023 Active Insulin Pen Needle 32G X 5 MMIndications:DM type 2 causing renal disease, not at goal ([facility]) use to inject lantus twice per day 200 Each 3 03/26/2023 Active OneTouch Verio In Vitro Strip (Glucose Blood)Indications: DM type 2 causing renal disease ([facility]) Check blood sugars one time daily. Dx E11.9 300 Strip 2 05/03/2023 Active glipiZIDE 5 MG Oral Tablet (Glucotrol) Take 1 Tablet by mouth in the morning and 1 Tablet before bedtime. 30 minutes before a meal. 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) INJECT 20 UNITS SUBCUTANEOUSLY TWICE DAILY 30 mL 2 07/08/2023 Active Digoxin 125 MCG Oral Tablet (Lanoxin)Indicatio ns:Chronic systolic heart failure (HCC),Coronary artery disease involving lovelock coronary artery of lovelock heart without angina pectoris Take 1 Tablet [...] Dyslipidemia 02/18/2018 Coronary artery disease invo lving lovelock coronary artery of lovelock heart without angina pectoris 12/10/2017 PAF (paroxysmal [...] mRNA, LNP-s, No Pre serve, 2-Dose Series (Algentis) 07/23/2021,11/14/2020,10/24/2020 COVID-19, MRNA-LNP, 23-24, P F, 30 MCG/0.3 mL, 12 YRS AND ABOVE, IM ([employer]-ComirnatFONU2) 05/26/2023 Covid-19, Mrna, Lnp-s, Pf, B ivalent, 30 Mcg, IM, 12 yrs and above (Algentis) 05/26/2022 Pneumococcal Conjugate Vacc, 13 Valent (Prevnar) [...] Sign Reading Time Taken Comments Blood Pressure 167/83 11/24/2023 3:03 PM EDT Pulse 88 11/24/2023 3:03 PM EDT Temperature 36.5 C (97.7 F) 11/24/2023 3:03 PM ED T Respiratory Rate - - Oxygen Saturation 97% 11/24/2023 3:03 PM EDT Inhaled Oxygen Concentration - - Weight 104.4 kg (230 lb 3.2 oz) 11/24/2023 3:03 PM EDT Height 160 cm (5' 3") 11/24/2023 3:03 PM EDT Body Mass Index 40.78 11/24/2023 3:03 PM EDT documented in this encounter Progress Notes * Marquez Kolb MD - 11/24/2023 2:55 PM EDT Outpatient Consult Note Data Source: Patient, Epic record. 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 HPI: 78-year-old female with complicated past medical history including coronary artery disease, hypertension, hyperlipidemia, AFib on Eliquis, type 2 diabetes, heart failure with preserved ejection fraction and overactive bladder referred with the about diagnosis. She was admitted to [facility] between 10/21/23 - 10/27/23. Presented to the [...] (MMRp). - HER2/solomon overexpression: Negative (score 0). [place] Mismatch Repair (MMR) Immunohistochemistry Panel Results: Mismatch repair proficient (MMRp). Immunohistochemistry: MLH1 Protein: Intact. PMS2 Protein: Intact. MSH2 Protein: Intact. MSH6 Protein: Intact. Interpretation: Intact expression of all four proteins (MLH1, MSH2, MSH6 and PMS2) is present. The immunohistochemistry findings are not consistent with microsatellite instability. FISH analysis shows no evidence of HER2 amplification and as such this is considered a NEGATIVE result. [employer] ([employer]) PD-L1 LDT: Detected Total PD-L1 Expression: 30 [...] One sister was diagnosed of brain tumor. Past Medical History: Diagnosis Date DM type 2, goal A1C below 8.0 09/08/2013 Fam hx-cardiovas dis NEC Family history of diabetes mellitus Generalized osteoarthritis GERD (gastroesophageal reflux disease) Heart failure, systolic, due to CAD ([facility]) 03/31/2018 HTN, goal below 140/90 Menopause Mixed dyslipidemia Morbid Obesity, BMI not known Myalgia and myositis PAF (paroxysmal atrial fibrillation) ([facility]) 12/10/2017 Polymyalgia rheumatica ([facility]) Current Outpatient Medications Medication Sig Dispense Refill MULTIVITAMIN/MINERAL FORMULA TABS OR 1 TABLET DAILY 0 0 SYSTANE PRESERVATIVE FREE 0.4-0.3 % OP SOLN 1 gtt OU q2h WA 1 box 6 CALCIUM 4096-9757 MG-UNIT PO CHEW Take 1 Tablet by [...] lantus twice per day 200 Each 3 [employer] In Vitro Strip (Glucose Blood) Check blood sugars one time daily. Dx E11.9 300 Strip2 COVID-19 mRNA Vaccine 12 years and above Algentis 30 MCG/0.3 ML IM SUSP Inject into [...] 1 Tablet before bedtime. For 10 days. No current facility-administered medications for this visit. 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 Employer: [employer] Tobacco Use Smoking status: Former Current packs/day: 0.00 Average packs/day: 1.5 packs/day for 35.0 years (52.5 ttl pk-yrs) Types: Cigarettes Start date: 08/12/1964 Quit date: 08/12/1999 Years since quittin.3 Smokeless tobacco: Never Tobacco comments: 10/25/98 Vaping Use Vaping Use: Never used Substance and Sexual Activity Alcohol use: Not Currently Drug use: No Sexual activity: Yes Partners: Male Other Topics Concern Service No Blood Transfusions No Caffeine Concern No Occupational Exposure No Hobby Hazards No Sleep Concern Yes Comment: AWAKENS FREQ Stress Concern No Comment: NOT DEPRESSED, NOT AFRAID Weight Concern No Special Diet Not Asked Back Care No Comment: DOING WELL Exercise No Bike Helmet Not Asked Seat Belt Yes Self-Exams Yes Social History Narrative Not on file Social Determinants of Health Financial Resource Strain: Not on file Food Insecurity: No Food Insecurity (12/02/2022) Hunger Vital Sign Worried About Running Out of Food in the Last Year: Never true Ran Out of Food in the Last Year: Never true Transportation Needs: Not on file Physical Activity: Not on file Stress: Not on file Social Connections: Not on file Intimate Partner Violence: Not on file Housing Stability: Not on file Family History Problem Relation Age of Onset Diabetes Mother Hypertension Mother Heart Disorder Mother CABG Cancer Father Other (Other) Other pt denies family hx of skin cancer REVIEW OF SYSTEMS: General: No Fever, chills, night sweats HEENT: No change in visual acuity, blurred or double vision. No epistaxis, facial pain, nasal discharge or change in hearing. Complain ofdysphagia, no muscosal ulceration, or sores noted. Cardiovascular: [...] lymph nodes noted As mentioned above, all other systems were reviewed in full and are unremarkable. Review of patient's allergies indicates: Allergen Reactions Atarax [Hydroxyzine Hcl] halluzinating Cetirizine & Related HALLUCINATIONS PHYSICAL EXAMINATION: General Appearance: Weak appearing patient in no acute distress There were no vitals taken for this visit. Vitals were reviewed. HEENT: No oral or pharyngeal masses, ulceration or thrush noted, no sinus tenderness. Neck is supple with no thyromegaly or JVD noted. Lymph Nodes: No lymphadenopathy noted in the occipital, pre and post auricular, cervical, supra andinfraclavicular, axillary, epitrochlear, inguinal, and popliteal region. Lungs/Thorax: Clear to auscultation, no accessory muscles of respiration being used. Heart: Regular rate and rhythm, normal S1, S2. Abdomen: Soft, nontender, bowel sounds present, no appreciable hepatosplenomegaly, no palpable masses Extremeties: Good pulses bilaterally, bilateral lower extremity edema ASSESSMENT: 78-year-old female with complicated past medical [...] mismatch repair proficient and HER2 Solomon negative. [id number] was 30 CPS. Endo sonographic ultrasound revealed T3 N 0 disease. 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 She has localized esophageal GE junction carcinoma. 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 Discussed with the patient in detail about the diagnosis and prognosis reviewed all the available blood tests and PET scan finding with her. I also personally reviewed the radiology images of the PET scan. 1st we need to clarify about parotid gland finding and I will refer her to Otolaryngology for evaluation and their opinion. I will also refer her to Radiation for the opinion. I think her esophageal cancer will be more aggressive and should betreated 1st with the chemotherapy concurrent with radiation therapy. After detailed discussion she a greed with the plan. PLAN: Refer her to Radiation Oncology and Otolaryngology. She will return to clinic for follow-up in 2-3 weeks after seen by the Radiation Oncology and Otolaryngology. The patient voiced understanding of all of [...] documented in this encounter Nursing Notes * Rubi Carreno, MED ASSIST - 11/24/2023 3:04 PM EDT Patient identifed by name and birthdate Do you have any concerns about pain management for today's visit? No Living Will or Advance Directive for Health Care as noted on the problem list. [facility] is a way you can talk to your provider on line through e-mail. Would you like to sign up? I can activate it for you? ALREADY ACTIVE Filed Vitals: 11/24/23 1503 BP: 167/83 Pulse: 88 Temp: 36.5 C (97.7 F) TempSrc: Tympanic SpO2: 97% Weight: 104.4 kg (230 lb 3.2 oz) Height: 1.6 m (5' 3") Patient was instructed to not get up on the exam table/exam chair until directed and assisted by their provider; patient is to remain seated in the chair/ wheelchair/ exam table/ exam chair for fall prevention and safety reasons. Patient is aware to have assistance to step down off exam table/exam chair with personnel. Patient voiced full comprehension of instructions. documented in this encounter Plan of Treatment Upcoming Encounters Date Type Department Care Team (Late st Contact Info) Description 12/17/2023 1:00 PM EDT Office Visit [facility] [address] [place] [id number] Jason West MD [address] [place] [address] 02/09/2024 3:00 PM EDT Office Visit Cardiology, [facility] [place] [address] [facility] [place] [address] [address] [place] [address] 03/08/2024 10:00 AM EDT Cardiac Studies Cardiology, [facility] [place] [address] [facility] [place] [address] [facility] [address] [place] [address] Scheduled Referrals Name Type Priority Associated Diagnoses Order Schedule ADULT/PEDS OTOLARYNGOLOGY REFERRAL OP Referral Within 10 days (routine) Parotid mass Ordered: 11/24/2023 RADIATION/ONCOLOGY REFERRAL OP Referral Within 10 days (routine) Malignant neoplasm of lower third of esophagus (HCC) Ordered: 11/24/2023 Health Maintenance Due Date Last Done Comments Hepatitis C Screening 1963 GFR 09/08/2023 03/08/2023, 0 09/2022, 01/13/2022, Additional history exists HbA1c 09/08/2023 03/08/2023, 0 09/2022, 01/13/2022, Additional history exists Albumin/Creatinine Ratio 10/03/20232 023, 08/28/2021, 11/18/2020, Additional history exists CKD PHOS USE SMARTSET 87169 10/03/2023 03/0 09/2022, 03/17/2021, 08/18/2019, Additional history exists CKD HGB USE SMARTSET 19203 03/08/202403/08, 10/02/2022, 07/29/2021, Additional history exists DIG [...] esophagus documented in this encounter Care Teams Parking Enforcement Specialist Relationship Specialty Start Date End Date Jason West MD [address] [place] [address] PCP - General 02/06/03 documented as of this encounter
--- OUTSIDE RECORDS SUMMARY | 2023-12-21 08:56 | External Medical Summary | Summary of Care ---
Author Name Unknown Organization [facility] Address [address] [place] [address] Phone [phone] Care Team Providers Care Wire Harness Assembler Name Role Phone Jason West MD Primary Care Provider [phone]- [phone] Reason for Visit * Reason Onset Date Comments Hospital Follow-Up Patient was a dmitted from er on the 14 of octoberPatient would like to discuss scheduled tests and medications Hospital Follow-Up 11/22/2023 Encounter Details Date Type Department Care Team (Late st Contact Info) Description 11/02/2023 11:00 AM EDT Office Visit [facility] [address] [place] [address] Jason West MD [address] [place] [address] GE junction carcinoma (HCC)*; Need for hepatitis C screening test; Chronic kidney disease, stage 3a (HCC); Chronic systolic heart failure (HCC); PAF (paroxysmal atrial fibrillation) (HCC); Type 2 diabetes mellitus with stage 3a chronic kidney disease, unspecified whether shelter insulin use (HCC); Hospital discharge follow-up Allergies Active Allergy Reactions Criticality Noted Date Comments Hydroxyzine Hcl 05/12/2012 halluzinating Cetirizine & Related 02/11/1999 HALLUCINATIONS documented as of this encounter (statuses as of 11/22/2023) Medications Medication Sig Dispensed Refills Start Date End Date Status MULTIVITAMIN/REVERSE UNIT OPERATOR FISHERMAN AL FORMULA TABS OR 1 TABLET DAILY 0 0 12/02/2001 Active SYSTANE PRESERVATIVE FREE 0.4-0.3 % OP SOLNIndications:Ot her anterior corneal dystrophies 1 gtt OU q2h [place] 1 box 6 12/03/2008 Active CALCIUM 2549-7484 MG-UNIT PO CHEW Take 1 Tablet by mouth in the morning. 0 Active Cinnamon 500 MG Capsule Take 2 Capsules by mouth in the morning. 0 Active ONETOUCH ULTRASOFT LANCETS MISCIndications:DM type 2 causing renal disease ([facility]) Use as directed daily. Use up to four times a day as directed. Dx E11.9 3 Box Dosing Unit 3 09/13/2018 Active aspirin enteric coated 81 MG TBECIndications:Co ronary artery disease involving [place] coronary artery of [place] heart without angina pectoris Take 1 Tab [...] Tablet Sublingual (Nitrostat)Indicat ions:Coronary artery disease involving [place] coronary artery of [place] heart without angina pectoris,Old [place] (myocardial infarction) [...] systolic heart failure (HCC),Coronary artery disease involving [place] coronary artery of [place] heart without angina pectoris TAKE 1 TAB BY MOUTH SHORTLY BEFORE OR UPON RISING IN THE MORNING, AT MIDDAY, AND IN THE LATE AFTERNOON (NO LATER THAN 6PM) 270 Tablet 3 03/25/2023 Active Insulin Pen Needle 32G X 5 MMIndications:DM type 2 causing renal disease, not at goal ([facility]) use to inject lantus twice per day 200 Each 3 03/26/2023 Active Tad Cronin In Vitro Strip (Glucose Blood)Indications: DM type 2 causing renal disease ([facility]) Check blood sugars one time daily. Dx E11.9 300 Strip 2 05/03/2023 Active glipiZIDE 5 MG Oral Tablet (Glucotrol) Take 1 Tablet by mouth in the morning and 1 Tablet before bedtime. 30 minutes before a meal. 180 Tablet 1 05/27/2023 Active Atorvastatin Calcium 40 MG Oral Tablet (Lipitor)Indicatio ns:Coronary artery disease involving [place] coronary artery of [place] heart without angina pectoris,Dyslipide mona TAKE 1 TABLET DAILY IN THE MORNING 90 Tablet 3 05/27/2023 Active Insulin Glargine Solostar 100 UNIT/ML Subcutaneous Solution Pen-injector (Lantus SoloStar)Indicatio ns:DM type 2 causing renal disease, not at goal ([facility]) INJECT 20 UNITS SUBCUTANEOUSLY TWICE DAILY 30 mL 2 07/08/2023 Active Digoxin 125 MCG Oral Tablet (Lanoxin)Indicatio ns:Chronic systolic heart failure (HCC),Coronary artery disease involving [place] coronary artery of [place] heart without angina pectoris Take 1 Tablet [...] as of this encounter (statuses as of 11/22/2023) Active Problems Problem Noted Date Diagnosed Date [...] Dyslipidemia 02/18/2018 Coronary artery disease invo lving [place] coronary artery of [place] heart without angina pectoris 12/10/2017 PAF (paroxysmal atrial fibrillation) 12/10/2017 Type 2 diabetes mellitus wit h hemoglobin A1c goal of less than 8.0% 09/08/2013 Overview: ICD-10 update of inactive term DJD, CERVICAL SPINE 04/12/2002 GENERAL OSTEOARTHROSIS documented as of this encounter (statuses as of 11/22/2023) Resolved Problems Problem Noted Date Diagnosed Date [...] as of this encounter (statuses as of 11/22/2023) Immunizations Name Administration Dates Next Due COVID-19 mRNA, LNP-s, No Pre serve, 2-Dose Series (JotSpot) 07/23/2021,11/14/2020,10/24/2020 COVID-19, MRNA-LNP, 23-24, P F, 30 MCG/0.3 mL, 12 YRS AND ABOVE, IM (Lookback-Comirnaty) 05/26/2023 Covid-19, Mrna, Lnp-s, Pf, B ivalent, [...] Sign Reading Time Taken Comments Blood Pressure 120/80 11/02/2023 11:15 AM EDT Pulse 80 11/02/2023 11:15 AM EDT Temperature 36.2 C (97.1 F) 11/02/2023 11:15 AM E DT Respiratory Rate 16 11/02/2023 11:15 AM EDT Oxygen Saturation 98% 11/02/2023 11:15 AM EDT Inhaled Oxygen Concentration - - Weight 105.7 kg (233 lb) 11/02/2023 11:15 AM EDT Height - - Body Mass Index 39.99 06/29/2023 10:05 AM EST documented in this encounter Progress Notes * Jason West MD - 11/22/2023 7:18 PM EDT Subjective: Ciara Baig is a 78 year old female here today for Chief Complaint Patient presents with Hospital Follow-Up Patient was admitted from er on the 14 of october Patient would like to discuss scheduled tests and medications Hospital Follow-Up Patient presents for hospital follow-up visit. She was admitted to [facility] 10/21/23 - 10/27/23. Please see discharge summary for full details. Presented to the emergency department with chest pain, shortness of breath, headache. She has had some swallowing difficulties and weight loss. Swallowing difficulties had been present for few weeks. 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 She was seen in consultation by Gastroenterology. CT of the head negative. Swallowing study showed no evidence for aspiration. Patient has follow up with Gastroenterology, Oncology, Cardiology. She was given a course of antibiotic treatment for H pylori. Past Medical History: Diagnosis Date DM type 2, goal A1C below 8.0 09/08/2013 Fam hx-cardiovas dis NEC Family history of diabetes mellitus Generalized osteoarthritis GERD (gastroesophageal reflux disease) Heart failure, systolic, due to CAD ([facility]) 03/31/2018 HTN, goal below 140/90 Menopause Mixed dyslipidemia Morbid Obesity, BMI not known Myalgia and myositis PAF (paroxysmal atrial fibrillation) ([facility]) 12/10/2017 Polymyalgia rheumatica ([facility]) Past Surgical History: Procedure Laterality Date ABDOMEN SURGERY PROCEDURE NEC OVARIAN CYST AND APPENDECTOMY ARTHROPLASTY KNEE TOTAL 05/11 Right, [place]. CATHETERIZE LEFT HEART THRU SKIN 09/25/04 <30% LAD, hyperdynamic LV function EGD, W/ENDOSCOPIC US N/A 11/12/2023 ESOPHAGOGASTRODUODENOSCOPY (EGD), FLEXIBLE, TRANSORAL, ENDOSCOPIC ULTRASOUND performed by Fer Solano MD at ENDOSCOPY [facility] FRACTURE NOS ANKLES, L AND R [...] OU q2h WA 1 box 6 CALCIUM 4366-6566 MG-UNIT PO CHEW Take 1 Tablet by mouth in the morning. Cinnamon 500 MG Capsule Take 2 Capsules by mouth in the morning. ONETOUCH ULTRASOFT LANCETS MIS Use as directed daily. Use up to [...] COVID-19 mRNA Vaccine 12 years and above JotSpot 30 MCG/0.3 ML IM SUSP Inject into [...] Capsule Take 1 Capsule by mouth daily. Clarithromycin 500 MG Oral Tablet (Biaxin) Take 1 Tablet by mouth in the morning and 1 Tablet before bedtime. For 10 days. Amoxicillin 500 MG Oral Capsule (Amoxil) Take 2 Capsules by mouth in the morning and 2 Capsules before bedtime. For 10 days. (Patient not taking: Reported on 11/02/2023) No current facility-administered medications for this visit. Objective: BP 120/80 | Pulse 80 | Temp 36.2 C (97.1 F) (Temporal Artery) | Resp 16 | Wt 105.7 kg (233 lb) | SpO2 98% | BMI 39.99 kg/m | BSA 2.18 m GEN: NAD HEENT: Benign NECK: Supple with no LAD, TM, JVD CHEST: CTA B CV: RRR ABD: Soft, NT/ND, No HSM, NABS EXT: No c,c,e Assessment and Plan: GE junction carcinoma (HCC) (Primary) - GI follow up and studies as ordered. Oncology visit arranged. -call for new or worsening symptoms Need for hepatitis C screening test Type 2 diabetes mellitus with stage 3a chronic kidney disease (HCC) - DIABETES FOOT EXAM - TELEMEDICINE DIABETIC EYE Chronic kidney disease, stage 3a (HCC) Chronic systolic heart failure (HCC) PAF (paroxysmal atrial fibrillation) (HCC) Type 2 diabetes mellitus with stage 3a chronic kidney disease, unspecified whether watermelon harvesting supervisor insulin use (HCC) -continue current [facility] Hospital discharge follow-up Check-out note: She was to have PET/CT at [facility] 11/08 - got cancelled and their machine is down. She was told it should be rescheduled at [place] - but she does not have transportation out of our area. Please see if we can arrange at [facility]. Order already placed - please schedule joyce. Jason West MD * Lissa Powell LPN - 11/02/2023 11:24 AM EDT Socks and Shoes Removed for Annual Diabetic Foot Screening RIGHT FOOT: No Reddened, Cracking, Or Open Areas Noted. RIGHT Dorsalis Pedis Pulse: Palpable RIGHT Posterior Tibial Pulse: Palpable RIGHT Monofilament:Patient reports difficulty feeling monofilament at Great toe- plantar surface, Third toe-plantar surface, Ball of Foot-base of great toe, Ball of Foot-base of 3rd toe, and Ball of Foot-base of little toe LEFT FOOT: No Reddened, Cracking or Open Areas Noted. LEFT Dorsalis Pedis Pulse: Palpable LEFT Posterior Tibial Pulse: Palpable LEFT Monofilament:Patient reports difficulty feeling monofilament at Great toe- plantar surface, Third toe-plantar surface, Ball of Foot-base of great toe, Ball of Foot-base of 3rd toe, and Ball of Foot-base of little toe Do you need diabetic shoes: Yes documented in this encounter Nursing Notes * Lul Eduardo, Student - 11/02/2023 11:21 AM EDT The patient has been properly identified by confirmation of name and date of . Chief Complaint Patient presents with Hospital Follow-Up Patient was admitted from er on the 14 of october Patient would like to discuss scheduled tests and medications documented in this encounter Plan of Treatment Upcoming Encounters Date Type Department Care Team (Late st Contact Info) Description 11/23/2023 1:45 PM EDT Imaging Radiology, [facility] [address] [place] [address] 11/24/2023 3:00 PM EDT Office Visit Hematology/Oncology [facility] [address] [facility] [place] [phone] Marquez Kolb MD [address] [facility] [place] [address] 12/17/2023 1:00 PM EDT Office Visit [facility] [address] [place] [address] Jason West MD [address] [place] [address] 02/09/2024 3:00 PM EDT Office Visit Cardiology, [facility] [address] [facility] [place] [address] Aurelio Viera PA-C [address] [facility] [place] [address] 03/08/2024 10:00 AM EDT Cardiac Studies Cardiology, [facility] [address] [facility] [place] [address] [address] [facility] [address] [facility] [place] [address] Health Maintenance Due Date Last Done Comments Hepatitis C Screening 1963 GFR 09/08/2023 03/08/2023, 03/0 09/2022, 01/13/2022, Additional history exists HbA1c 09/08/2023 03/08/2023, 03/0 09/2022, 01/13/2022, Additional history exists Albumin/Creatinine Ratio 10/03/202310/02/ 023, 08/28/2021, 11/18/2020, Additional history exists CKD PHOS USE SMARTSET 14970 10/03/2023 03/0 09/2022, 03/17/2021, 08/18/2019, Additional history exists CKD HGB USE SMARTSET 44206 03/08/202403/08, 10/02/2022, 07/29/2021, Additional history exists DIG [...] Procedure Name Priority Date/Time Associated Diagnosis Comments TELEMEDICINE DIABETIC EYE Routine 11/02/2023 documented in this encounter Results * TELEMEDICINE DIABETIC EYE (11/02/2023) 11/02/2023 Jason West MD DIGITAL PHOTOGRAPH Y documented in this encounter Visit Diagnoses Diagnosis 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 Need for hepatitis C screening test Special screening examination for other specified viral diseases Chronic kidney disease, stage 3a (HCC) Chronic systolic heart failure (HCC) Chronic systolic heart failure PAF (paroxysmal atrial fibrillation) (HCC) Atrial fibrillation Type 2 diabetes mellitus with stage 3a chronic kidney disease, unspecified whether shelter insulin use (HCC) Hospital discharge follow-up Other follow-up examination documented in this encounter Care Teams Wire Harness Assembler Relationship Specialty Start Date End Date Jason West MD [address] [place] [address] PCP - General 02/06/03 documented as of this encounter"
--- OUTSIDE RECORDS SUMMARY | 2023-12-21 08:56 | External Medical Summary | Summary of Care ---
Author Name Unknown Organization [facility] Address [address] [place] [address] Phone [phone] Care Team Providers Care Margin Analyst Name Role Phone Jason West MD Primary Care Provider [phone]- [phone] Encounter Details Date Type Department Care Team (Late st Contact Info) Description 11/24/2023 Telephone Hematology/Oncology, [address] [address] Marquez Kolb MD [address] [place] [address] Allergies Active Allergy Reactions Criticality Noted Date Comments Hydroxyzine Hcl 05/12/2012 halluzinating Cetirizine & Related 02/11/1999 HALLUCINATIONS documented as of this encounter (statuses as of 11/24/2023) Medications Medication Sig Dispensed Refills Start Date End Date Status MULTIVITAMIN/HOOD FITTER AL FORMULA TABS OR 1 TABLET DAILY 0 0 12/02/2001 Active SYSTANE PRESERVATIVE FREE 0.4-0.3 % OP SOLNIndications:Ot her anterior corneal dystrophies 1 gtt OU q2h WA 1 box 6 12/03/2008 Active CALCIUM 1121-3373 MG-UNIT PO CHEW Take 1 Tablet by [...] 81 MG TBECIndications:Co ronary artery disease involving [place] coronary artery of [place] heart without angina pectoris Take 1 [...] Tablet Sublingual (Nitrostat)Indicat ions:Coronary artery disease involving [place] coronary artery of [place] heart without angina pectoris,Old [place] (myocardial infarction) Place 1 Tablet under the [...] systolic heart failure (HCC),Coronary artery disease involving [place] coronary artery of [place] heart without angina pectoris TAKE 1 TAB BY MOUTH SHORTLY BEFORE OR UPON RISING IN THE MORNING, AT MIDDAY, AND IN THE LATE AFTERNOON (NO LATER THAN 6PM) 270 Tablet 3 03/25/2023 Active Insulin Pen Needle 32G X 5 MMIndications:DM type 2 causing renal disease, not at goal ([facility]) use to inject lantus twice per day 200 Each 3 03/26/2023 Active OneTouch Verio In Vitro Strip (Glucose Blood)Indications: DM type 2 causing renal disease ([facility]) Check blood sugars one time daily. Dx E11.9 300 Strip 2 05/03/2023 Active glipiZIDE 5 MG Oral Tablet (Glucotrol) Take 1 Tablet by mouth in the morning and 1 Tablet before bedtime. 30 minutes before a meal. 180 Tablet 1 05/27/2023 Active Atorvastatin Calcium 40 MG Oral Tablet (Lipitor)Indicatio ns:Coronary artery disease involving [place] coronary artery of [place] heart without angina pectoris,Dyslipide mona TAKE 1 TABLET DAILY IN THE MORNING 90 Tablet 3 05/27/2023 Active Insulin Glargine Solostar 100 UNIT/ML Subcutaneous Solution Pen-injector (Lantus SoloStar)Indicatio ns:DM type 2 causing renal disease, 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) INJECT 20 UNITS SUBCUTANEOUSLY TWICE DAILY 30 mL 2 07/08/2023 Active Digoxin 125 MCG Oral Tablet (Lanoxin)Indicatio ns:Chronic systolic heart failure (HCC),Coronary artery disease involving [place] coronary artery of [place] heart without angina pectoris Take 1 [...] single episode, in full remission 12/07/2018 [place] (myocardial infarction) 03/31/2018 Heart failure, systolic, due to CAD 03/31/2018 Lymphedema of both lower extremities 03/31/2018 Dyslipidemia 02/18/2018 Coronary artery disease invo lving [place] coronary artery of sioux heart without angina pectoris 12/10/2017 PAF [...] mRNA, LNP-s, No Pre serve, 2-Dose Series (Acteavo) 07/23/2021,11/14/2020,10/24/2020 COVID-19, MRNA-LNP, 23-24, P F, 30 MCG/0.3 mL, 12 YRS AND ABOVE, IM ([employer]em[employer] Discovery-Comirnaty) 05/26/2023 Covid-19, Mrna, Lnp-s, Pf, B ivalent, 30 Mcg, IM, 12 yrs and above (Acteavo) 05/26/2022 Diptheria/Tetanus (Adult) 05/02/1992 Pneumococcal Conjugate Vacc, [...] ADULT/PEDS OTOLARYNGOLOGY REFERRAL OP Status: Needs Scheduling (Cjty-[id number]-Pbawknu Pending) Requested appt date: Authorizing: Marquez Kolb MD in HEM/ONC [facility] Referral: [id number] (Pending Review) Priority: Within 10 days (routine) 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] Scheduling please call pt to schedule documented in this encounter Plan of Treatment Upcoming Encounters Date Type Department Care Team (Late st Contact Info) Description 12/17/2023 1:00 PM EDT Office Visit [place] [id number] [place] [address] Jason West MD [address] [place] [address] 02/09/2024 3:00 PM EDT Office Visit Cardiology, [facility] [address] [place] [address] Aurelio Viera PA-C [address] [place] [address] 03/08/2024 10:00 AM EDT Cardiac Studies Cardiology, [facility] [address] [place] [address] [facility] [address] [place] [address] Health Maintenance Due Date Last Done Comments Hepatitis C Screening 1963 GFR 09/08/2023 03/08/2023, 0 09/2022, 01/13/2022, Additional history exists HbA1c 09/08/2023 03/08/2023, 03/0 09/2022, 01/13/2022, Additional history exists Albumin/Creatinine Ratio 10/03/2023 023, 08/28/2021, 11/18/2020, Additional history exists CKD PHOS USE SMARTSET 65503 10/03/2023 03/0 09/2022, 03/17/2021, 08/18/2019, Additional history exists CKD HGB USE SMARTSET 55389 03/08/202403/08, 10/02/2022, 07/29/2021, Additional history exists DIG [...] filedocumented as of this encounter Care Teams Margin Analyst Relationship Specialty Start Date End Date Jason West MD [address] [place] [address] PCP - General 02/06/03 documented as of this encounter
--- OUTSIDE RECORDS SUMMARY | 2023-12-21 08:56 | External Medical Summary | Summary of Care ---
Author Name Unknown Organization [facility] Address [address] [place] [address] Phone [phone] Care Team Providers Care Fastener Technologist Name Role Phone Jason West MD Primary Care Provider +1- [phone] Encounter Details Date Type Department Care Team (Late st Contact Info) Description 11/24/2023 Telephone Hematology/Oncology, [address] [address] Marquez Kolb MD [address] [place] [address] Allergies Active Allergy Reactions Criticality Noted Date Comments Hydroxyzine Hcl 05/12/2012 halluzinating Cetirizine & Related 02/11/1999 HALLUCINATIONS documented as of this encounter (statuses as of 11/24/2023) Medications Medication Sig Dispensed Refills Start Date End Date Status MULTIVITAMIN/MANAGER GENERAL AL FORMULA TABS OR 1 TABLET DAILY 0 0 12/02/2001 Active SYSTANE PRESERVATIVE FREE 0.4-0.3 % OP SOLNIndications:Ot her anterior corneal dystrophies 1 gtt OU q2h WA 1 box 6 12/03/2008 Active CALCIUM 5973-8890 MG-UNIT PO CHEW Take 1 Tablet by [...] 81 MG TBECIndications:Co ronary artery disease involving [place] coronary artery of [place] heart without angina pectoris Take 1 Tab [...] Tablet Sublingual (Nitrostat)Indicat ions:Coronary artery disease involving [place] coronary artery of [place] heart without angina pectoris,Old [place] (myocardial infarction) Place 1 Tablet under the [...] systolic heart failure (HCC),Coronary artery disease involving [place] coronary artery of [place] heart without angina pectoris TAKE 1 TAB [...] Oral Tablet (Lipitor)Indicatio ns:Coronary artery disease involving [place] coronary artery of [place] heart without angina pectoris,Dyslipide mona TAKE 1 TABLET DAILY IN THE MORNING 90 Tablet 3 05/27/2023 Active Insulin Glargine Solostar 100 UNIT/ML Subcutaneous Solution Pen-injector (Lantus SoloStar)Indicatio ns:DM type 2 causing renal disease, 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) INJECT 20 UNITS SUBCUTANEOUSLY TWICE DAILY 30 mL 2 07/08/2023 Active Digoxin 125 MCG Oral Tablet (Lanoxin)Indicatio ns:Chronic systolic heart failure (HCC),Coronary artery disease involving [place] coronary artery of [place] heart without angina pectoris Take 1 Tablet [...] single episode, in full remission 12/07/2018 Old [place] (myocardial infarction) 03/31/2018 Heart failure, systolic, due to CAD 03/31/2018 Lymphedema of both lower extremities 03/31/2018 Dyslipidemia 02/18/2018 Coronary artery disease invo lving [place] coronary artery of [place] heart without angina pectoris 12/10/2017 PAF (paroxysmal [...] mRNA, LNP-s, No Pre serve, 2-Dose Series ([employer]) 07/23/2021,11/14/2020,10/24/2020 COVID-19, MRNA-LNP, 23-24, P F, 30 MCG/0.3 mL, 12 YRS AND ABOVE, IM ([employer]-Comirnaty) 05/26/2023 Covid-19, Mrna, Lnp-s, Pf, B ivalent, 30 Mcg, IM, 12 yrs and above ([employer]) 05/26/2022 Diptheria/Tetanus (Adult) 05/02/1992 Pneumococcal Conjugate Vacc, [...] ADULT/PEDS OTOLARYNGOLOGY REFERRAL OP Status: Needs Scheduling (Gcxd-[id number]-Olairub Pending) Requested appt date: Authorizing: Marquez Kolb MD in HEM/ONC [facility] Referral: [id number] (Pending Review) Priority: Within 10 days (routine) 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] Scheduling please call pt to schedule documented in this encounter Plan of Treatment Upcoming Encounters Date Type Department Care Team (Late st Contact Info) Description 12/17/2023 1:00 PM EDT Office Visit [place] [address] [place] [address] Jason West MD [address] [place] [address] 02/09/2024 3:00 PM EDT Office Visit Cardiology, [facility] [address] [place] [address] Aurelio Viera PA-C [address] [place] [address] 03/08/2024 10:00 AM EDT Cardiac Studies Cardiology, [facility] [address] [place] [address] [facility] [address] [place] [address] Health Maintenance Due Date Last Done Comments Hepatitis C Screening 1963 GFR 09/08/2023 03/08/2023, 0 09/2022, 01/13/2022, Additional history exists HbA1c 09/08/2023 03/08/2023, 03/0 09/2022, 01/13/2022, Additional history exists Albumin/Creatinine Ratio 10/03/2023 023, 08/28/2021, 11/18/2020, Additional history exists CKD PHOS USE SMARTSET 92120 10/03/2023 03/0 09/2022, 03/17/2021, 08/18/2019, Additional history exists CKD HGB USE SMARTSET 57775 03/08/202403/08, 10/02/2022, 07/29/2021, Additional history exists DIG [...] filedocumented as of this encounter Care Teams Fastener Technologist Relationship Specialty Start Date End Date Jason West MD [address] [place] [address] PCP - General 02/06/03 documented as of this encounter
--- OUTSIDE RECORDS SUMMARY | 2023-12-21 08:56 | External Medical Summary | Summary of Care ---
Author Name Unknown Organization [facility] Address [address] [place] [address] Phone [phone] Care Team Providers Care Tv News Director Name Role Phone Jason West MD Primary Care Provider [phone]- [phone] Reason for Visit * Reason Onset Date Comments Appointment 11/15/2023 Encounter Details Date Type Department Care Team (Late st Contact Info) Description 11/15/2023 Telephone Cardiology, [facility] [address] [place] [address] Aurelio Viera PA-C [address] [place] [id number] Appointment Allergies Active Allergy Reactions Criticality Noted Date Comments Hydroxyzine Hcl 05/12/2012 halluzinating Cetirizine & Related 02/11/1999 HALLUCINATIONS documented as of this encounter (statuses as of 11/24/2023) Medications Medication Sig Dispensed Refills Start Date End Date Status MULTIVITAMIN/R[place] AL FORMULA TABS OR 1 TABLET DAILY 0 0 12/02/2001 Active SYSTANE PRESERVATIVE FREE 0.4-0.3 % OP SOLNIndications:Ot her anterior corneal dystrophies 1 gtt OU q2h [place] 1 box 6 12/03/2008 Active CALCIUM 9321-3605 MG-UNIT PO CHEW Take 1 Tablet by mouth in the morning. 0 Active Cinnamon 500 MG Capsule Take 2 Capsules by mouth in the morning. 0 Active ONETOUCH ULTRASOFT LANCETS MISCIndications:DM type 2 causing renal disease ([facility]) Use as directed daily. Use up to four times a day as directed. Dx E11.9 3 Box Dosing Unit 3 09/13/2018 Active aspirin enteric coated 81 MG TBECIndications:Co ronary artery disease involving [place] coronary artery of [place] heart without angina pectoris Take 1 Tab [...] (Nitrostat)Indicat ions:Coronary artery disease involving [place] coronary artery of [place] heart without angina pectoris,[place] (myocardial infarction) Place 1 Tablet under the tongue every 5 minutes as needed for Pain, Chest. 25 Tablet 5 09/03/2022 Active Apixaban 5 MG Oral Tablet (Eliquis)Indicatio ns:PAF (paroxysmal atrial fibrillation) ([facility]) Take 1 Tablet by mouth in the morning and 1 Tablet before bedtime. 180 Tablet 3 01/01/2023 Active Midodrine HCl 5 MG Oral Tablet (Proamatine)Indica tions:Chronic systolic heart failure (HCC),Coronary artery disease involving [place] coronary artery of [place] heart without angina pectoris TAKE 1 TAB BY MOUTH SHORTLY BEFORE OR UPON RISING IN THE MORNING, AT MIDDAY, AND IN THE LATE AFTERNOON (NO LATER THAN 6PM) 270 Tablet 3 03/25/2023 Active Insulin Pen Needle 32G X 5 MMIndications:DM type 2 causing renal disease, not at goal ([facility]) use to inject lantus twice per day 200 Each 3 03/26/2023 Active OneTouch Verio In Vitro Strip (Glucose Blood)Indications: DM type 2 causing renal disease ([facility]) Check blood sugars one time daily. Dx E11.9 300 Strip 2 05/03/2023 Active glipiZIDE 5 MG Oral Tablet (Glucotrol) Take 1 Tablet by mouth in the morning and 1 Tablet before bedtime. 30 minutes before a meal. 180 Tablet 1 05/27/2023 Active Atorvastatin Calcium 40 MG Oral Tablet (Lipitor)Indicatio ns:Coronary artery disease involving [place] coronary artery of [place] heart without angina pectoris,Dyslipide mona TAKE 1 [...] failure (HCC),Coronary artery disease involving [place] coronary artery of [place] heart without angina pectoris Take 1 Tablet [...] Coronary artery disease invo lving [place] coronary artery of [place] heart without angina pectoris 12/10/2017 PAF (paroxysmal [...] mRNA, LNP-s, No Pre serve, 2-Dose Series ([employer]) 07/23/2021,11/14/2020,10/24/2020 COVID-19, MRNA-LNP, 23-24, P F, 30 MCG/0.3 mL, 12 YRS AND ABOVE, IM ([employer]Ex-ComirnatFleck) 05/26/2023 Covid-19, Mrna, Lnp-s, Pf, B ivalent, [...] Miscellaneous Notes * Telephone Encounter - Zeyad White OSA - 11/15/2023 1:16 PM EDT Patient has been called and is aware of the date and time for the FU with Aurelio Viera, on: Wednesday Arrive by 2:45 PMAppt at 3:00 PM (30 min) * Telephone Encounter - Ginger Cornelius RN - 11/15/2023 8:20 AM EDT Called, spoke with patient regarding appointment with Aurelio Viera PA-C scheduled for today. Aurelio overbooked at 1130A; calling to see if patient able to come in at 12P instead. Spoke with patient who reports thinking appointment for today was previously cancelled, not planning to come today. Advised patient will cancel appointment as requested. --Scheduling, please assist in rescheduling appointment today for next available with Aurelio per patient request. documented in this encounter Plan of Treatment Upcoming Encounters Date Type Department Care Team (Late st Contact Info) Description 12/17/2023 1:00 PM EDT Office Visit [facility] [address] [place] [address] Jason West MD [address] [place] [address] 02/09/2024 3:00 PM EDT Office Visit Cardiology, [facility] [address] [facility] [place] [address] Aurelio Viera PA-C [address] [place] [address] 03/08/2024 10:00 AM EDT Cardiac Studies Cardiology, [facility] [address] [place] [address] [facility] [address] [place] [address] Health Maintenance Due Date Last Done Comments Hepatitis C Screening 1963 GFR 09/08/2023 03/08/2023, 09/2022, 01/13/2022, Additional history exists HbA1c 09/08/2023 03/08/2023, 0 09/2022, 01/13/2022, Additional history exists Albumin/Creatinine Ratio 10/03/2023 023, 08/28/2021, 11/18/2020, Additional history exists CKD PHOS USE SMARTSET 21422 10/03/2023 03/0 09/2022, 03/17/2021, 08/18/2019, Additional history exists CKD HGB USE SMARTSET 74613 03/08/202403/08, 10/02/2022, 07/29/2021, Additional history exists DIG [...] filedocumented as of this encounter Care Teams Tv News Director Relationship Specialty Start Date End Date Jason West MD [address] [place] [address] PCP - General 02/06/03 documented as of this encounter
--- OUTSIDE RECORDS SUMMARY | 2023-12-21 08:57 | External Medical Summary | Summary of Care ---
Author Name Unknown Organization [facility] Address [address] [place] [address] Phone [phone] Care Team Providers Care Care Management Coordinator Name Role Phone Jason West MD Primary Care Provider [phone]- [phone] Reason for Referral * Precert (Within 10 days (routine)) - Pending Review Specialty Diagnoses / Procedures Referred By Abdullahi melo Referred To Contact Radiology Diagnoses Malignant neoplasm of lower third of esophagus (HCC) Procedures PET CT SKULL BASE TO MID-THIGH FDG Whitney Mckenzie MD [address] [place] [address] Referral ID Status Reason Start Date Expiration Date V isits Requested Visits Authorized [id number] Pending Review 11/19/[phone] Reason for Visit * Reason Onset Date Comments Other 11/12/2023 Encounter Details Date Type Department Care Team (Late st Contact Info) Description 11/12/2023 Telephone Gastroenterology, [facility] [address] [place] [address] Whitney Mckenzie MD [address] [place] [address] Other Allergies Active Allergy Reactions Criticality Noted Date Comments Hydroxyzine Hcl 05/12/2012 halluzinating Cetirizine & Related 02/11/1999 HALLUCINATIONS documented as of this encounter (statuses as of 11/15/2023) Medications Medication Sig Dispensed Refills Start Date End Date Status MULTIVITAMIN/BACK [place]UF[place] AL FORMULA TABS OR 1 TABLET DAILY 0 0 12/02/2001 Active SYSTANE PRESERVATIVE FREE 0.4-0.3 % OP SOLNIndications:Ot her anterior corneal dystrophies 1 gtt OU q2h WA 1 box 6 12/03/2008 Active CALCIUM 9750-8778 MG-UNIT PO CHEW Take 1 Tablet by mouth in the morning. 0 Active Cinnamon 500 MG Capsule Take 2 Capsules by mouth in the morning. 0 Active ONETOUCH ULTRASOFT LANCETS MISCIndications:DM type 2 causing renal disease ([facility]) Use as directed daily. Use up to four times a day as directed. Dx E11.9 3 Box Dosing Unit 3 09/13/2018 Active aspirin enteric coated 81 MG TBECIndications:Co ronary artery disease involving [place] coronary artery of [place] heart without angina pectoris Take 1 Tab [...] Tablet Sublingual (Nitrostat)Indicat ions:Coronary artery disease involving [place] coronary artery of [place] heart without angina pectoris,Old [place] (myocardial infarction) Place 1 Tablet under the tongue every 5 minutes as needed for Pain, Chest. 25 Tablet 5 09/03/2022 Active Apixaban 5 MG Oral Tablet (Eliquis)Indicatio ns:PAF (paroxysmal atrial fibrillation) ([facility]) Take 1 Tablet by mouth in the morning and 1 Tablet before bedtime. 180 Tablet 3 01/01/2023 Active Midodrine HCl 5 MG Oral Tablet (Proamatine)Indica tions:Chronic systolic heart failure (HCC),Coronary artery disease involving [place] coronary artery of [place] heart without angina pectoris TAKE 1 TAB BY MOUTH SHORTLY BEFORE OR UPON RISING IN THE MORNING, AT MIDDAY, AND IN THE LATE AFTERNOON (NO LATER THAN 6PM) 270 Tablet 3 03/25/2023 Active Insulin Pen Needle 32G X 5 MMIndications:DM type 2 causing renal disease, not at goal ([facility]) use to inject lantus twice per day 200 Each 3 03/26/2023 Active OneTouch Verio In Vitro Strip (Glucose Blood)Indications: DM type 2 causing renal disease ([facility]) Check blood sugars one time daily. Dx E11.9 300 Strip 2 05/03/2023 Active glipiZIDE 5 MG Oral Tablet (Glucotrol) Take 1 Tablet by mouth in the morning and 1 Tablet before bedtime. 30 minutes before a meal. 180 Tablet 1 05/27/2023 Active Atorvastatin Calcium 40 MG Oral Tablet (Lipitor)Indicatio ns:Coronary artery disease involving [place] coronary artery of [place] heart without angina pectoris,Dyslipide mona TAKE 1 TABLET DAILY IN THE MORNING 90 Tablet 3 05/27/2023 Active Insulin Glargine Solostar 100 UNIT/ML Subcutaneous Solution Pen-injector (Lantus SoloStar)Indicatio ns:DM type 2 causing renal disease, not at goal ([facility]) INJECT 20 UNITS SUBCUTANEOUSLY TWICE DAILY 30 mL 2 07/08/2023 Active Digoxin 125 MCG Oral Tablet (Lanoxin)Indicatio ns:Chronic systolic heart failure (HCC),Coronary artery disease involving [place] coronary artery of [place] heart without angina pectoris Take 1 Tablet [...] as of this encounter (statuses as of 11/15/2023) Active Problems Problem Noted Date Diagnosed Date Chronic kidney disease, stage 3a 01/14/2021 Overview: Per CKD protocol Type 2 diabetes mellitus wit h stage 3a chronic kidney disease 12/10/2020 Overview: Per CKD protocol Chronic systolic heart failure 11/21/2020 DM type 2 causing renal disease, 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, in full remission 12/07/2018 [place] (myocardial infarction) 03/31/2018 Heart failure, systolic, due to CAD 03/31/2018 Lymphedema of both lower extremities 03/31/2018 Dyslipidemia 02/18/2018 Coronary artery disease invo lving [place] coronary artery of [place] heart without angina pectoris 12/10/2017 PAF (paroxysmal atrial fibrillation) 12/10/2017 Type 2 diabetes mellitus wit h hemoglobin A1c goal of less than 8.0% 09/08/2013 Overview: ICD-10 update of inactive term DJD, CERVICAL SPINE 04/12/2002 GENERAL OSTEOARTHROSIS documented as of this encounter (statuses as of 11/15/2023) Resolved Problems Problem Noted Date Diagnosed Date [...] as of this encounter (statuses as of 11/15/2023) Immunizations Name Administration Dates Next Due COVID-19 mRNA, LNP-s, No Pre serve, 2-Dose Series ([employer]) 07/23/2021,11/14/2020,10/24/2020 COVID-19, MRNA-LNP, 23-24, P F, 30 MCG/0.3 mL, 12 YRS AND ABOVE, IM (77 Pieces-Comirnaty) 05/26/2023 Covid-19, Mrna, Lnp-s, Pf, B ivalent, 30 Mcg, IM, 12 yrs and above (Pfizer) 05/26/2022 Diptheria/Tetanus (Adult) 05/02/1992 Pneumococcal Conjugate Vacc, [...] encounter Miscellaneous Notes * Telephone Encounter - Tami Reeder OSA - 11/15/2023 2:19 PM EDT Called pt and adolfo'd at [facility] for 11/22 at 1:45 pm. NPO 6 hrs and meds with sip of water. Pt agreeable. * Telephone Encounter - Tami Reeder OSA - 11/15/2023 1:36 PM EDT I placed the appropriate order with the appropriate diagnosis. Obviously, 1 month for a staging test is too long to wait. Please schedule for own or [place] ifpossible. Needs to be done 1-2 weeks. * Telephone Encounter - Tami Reeder OSA - 11/15/2023 10:08 AM EDT Lmm * Addendum Note - Whitney Mckenzie MD - 11/12/2023 3:15 PM EDTAddended by: WHITNEY MCKENZIE on: 11/12/2023 03:15 PM Modules accepted: Orders * Telephone Encounter - eFr Solano MD - 11/12/2023 2:53 PM EDT Forwarding to who ordered this. * Telephone Encounter - Karli Hill OSA - 11/12/2023 2:23 PM EDT There are [address] orders in the pt's chart; however, it will need to [place]. [place] [address] - skull to mid thigh DX codes - R93.3 - Abnormal findings on diagnostic imaging of other parts of digestive tract C16.0 - - [place] Adenocarcinoma I sent email to rad cert team for prior auth. Called [facility] and d/t them having the construction, they are not there as much and right now their first available appt is 12/15/23 - [place] PET CT DERRICK Diaz 11/12/2023 2:34 PM documented in this encounter Plan of Treatment Upcoming Encounters Date Type Department Care Team (Late st Contact Info) Description 11/23/2023 1:45 PM EDT Imaging Radiology, [address] [place] [id number] 12/31/2023 2:40 PM EDT Office Visit [facility] [address] [place] [address] Jason West MD [address] [place] [address] 02/09/2024 3:00 PM EDT Office Visit [facility], [facility] [address] [facility] [place] [address] Aurelio Viera PA-C [address] [place] [address] 03/08/2024 10:00 AM EDT Cardiac Studies [facility] [place] [address] [address] [address] [place] [address] Scheduled Orders Name Type Priority Associated Diagnoses Orde r Schedule PET CT SKULL BASE TO MID-THIGH FDG Medical Imaging Routine Malignant neoplasm of lower third of esophagus (HCC) Expected: 11/19/2023, Expires: 12/11/2024 Health Maintenance Due Date Last Done Comments Hepatitis C Screening 1963 GFR 09/08/2023 03/08/2023, 030 09/2022, 01/13/2022, Additional history exists HbA1c 09/08/2023 03/08/2023, 0 09/2022, 01/13/2022, Additional history exists Albumin/Creatinine Ratio 10/03/2023 023, 08/28/2021, 11/18/2020, Additional history exists CKD PHOS USE SMARTSET 58361 10/03/2023 03/0 09/2022, 03/17/2021, 08/18/2019, Additional history exists CKD HGB USE SMARTSET 29631 03/08/202403/08, 10/02/2022, 07/29/2021, Additional history exists DIG [...] as of this encounter Visit Diagnoses Diagnosis Malignant neoplasm of lower third of esophagus (HCC)- Primary Malignant neoplasm of lower third of esophagus documented in this encounter Care Teams Care Management Coordinator Relationship Specialty Start Date End Date Jason West MD [address] [place] [address] PCP - General 02/06/03 documented as of this encounter
--- OUTSIDE RECORDS SUMMARY | 2023-12-21 08:57 | External Medical Summary | Summary of Care ---
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] Procedures EGD, W/ENDOSCOPIC US ESOPHAGOGASTRODUODENOSCOPY (EGD), FLEXIBLE, TRANSORAL, ENDOSCOPIC ULTRASOUND Fer Solano MD [address] [place] [address] [facility] [address] [place] [address] Referral ID Status Reason Start Date Expiration Date Visits Re quested Visits Authorized [id number] Encounter Details Date Type Department Care Team (Latest Contact Info) Description 11/12/2023 12:17 PM EDT - 11/12/2023 3:02 PM EDT Hospital Encounter [facility], Endoscopy Room [facility] [address] [place] [address] Fer Solano MD [address] [place] [address] Upper Endoscopic US Discharge Disposition: Home - Self Care Allergies Active Allergy Reactions Criticality Noted Date Comments Hydroxyzine Hcl 05/12/2012 halluzinating Cetirizine & Related 02/11/1999 HALLUCINATIONS documented as of this encounter (statuses as of 11/13/2023) Medications Medication Sig Dispensed Refills Start Date End Date Status 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 0 Active Cinnamon 500 MG Capsule Take 2 Capsules by mouth in the morning. 0 Active ONETOUCH ULTRASOFT LANCETS MISCIndications:DM type 2 causing renal disease ([facility]) Use as directed daily. Use up to four times a day as directed. Dx E11.9 3 Box Dosing Unit 3 09/13/2018 Active aspirin enteric coated 81 MG TBECIndications:Co ronary artery disease involving [place] coronary artery of [place] heart without angina pectoris Take 1 Tab [...] Tablet Sublingual (Nitrostat)Indicat ions:Coronary artery disease involving [place] coronary artery of [place] heart without angina pectoris,[place] (myocardial infarction) Place 1 Tablet under the tongue every 5 minutes as needed for Pain, Chest. 25 Tablet 5 09/03/2022 Active Apixaban 5 MG Oral Tablet (Eliquis)Indicatio ns:PAF (paroxysmal atrial fibrillation) ([facility]) Take 1 Tablet by mouth in the morning and 1 Tablet before bedtime. 180 Tablet 3 01/01/2023 Active Midodrine HCl 5 MG Oral Tablet (Proamatine)Indica tions:Chronic systolic heart failure (HCC),Coronary artery disease involving [place] coronary artery of [place] heart without angina pectoris TAKE 1 TAB [...] Oral Tablet (Lipitor)Indicatio ns:Coronary artery disease involving [place] coronary artery of [place] heart without angina pectoris,Dyslipide mona TAKE 1 TABLET DAILY IN THE MORNING 90 Tablet 3 05/27/2023 Active Insulin Glargine Solostar 100 UNIT/ML Subcutaneous Solution Pen-injector (Lantus SoloStar)Indicatio ns:DM type 2 causing renal disease, not at goal ([facility]) INJECT 20 UNITS SUBCUTANEOUSLY TWICE DAILY 30 mL 2 07/08/2023 Active Digoxin 125 MCG Oral Tablet (Lanoxin)Indicatio ns:Chronic systolic heart failure (HCC),Coronary artery disease involving [place] coronary artery of [place] heart without angina pectoris Take 1 Tablet [...] as of this encounter (statuses as of 11/13/2023) Active Problems Problem Noted Date Diagnosed Date Chronic kidney disease, stage 3a 01/14/2021 Overview: Per CKD protocol Type 2 diabetes mellitus wit h stage 3a chronic kidney disease 12/10/2020 Overview: Per CKD protocol Chronic systolic heart failure 11/21/2020 DM type 2 causing renal disease, 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, in full remission 12/07/2018 [place] (myocardial infarction) 03/31/2018 Heart failure, systolic, due to CAD 03/31/2018 Lymphedema of both lower extremities 03/31/2018 Dyslipidemia 02/18/2018 Coronary artery disease invo lving [place] coronary artery of [place] heart without angina pectoris 12/10/2017 PAF (paroxysmal atrial fibrillation) 12/10/2017 Type 2 diabetes mellitus wit h hemoglobin A1c goal of less than 8.0% 09/08/2013 Overview: ICD-10 update of inactive term DJD, CERVICAL SPINE 04/12/2002 GENERAL OSTEOARTHROSIS documented as of this encounter (statuses as of 11/13/2023) Resolved Problems Problem Noted Date Diagnosed Date [...] as of this encounter (statuses as of 11/13/2023) Immunizations Name Administration Dates Next Due COVID-19 mRNA, LNP-s, No Pre serve, 2-Dose Series ([employer]) 07/23/2021,11/14/2020,10/24/2020 COVID-19, MRNA-LNP, 23-24, P F, 30 [...] Sign Reading Time Taken Comments Blood Pressure 120/60 11/12/2023 2:00 PM EDT Pulse 73 11/12/2023 2:00 PM EDT Temperature 36.2 C (97.1 F) 11/12/2023 1:34 PM ED T Respiratory Rate 17 11/12/2023 2:00 PM EDT Oxygen Saturation 100% 11/12/2023 2:00 PM EDT Inhaled Oxygen Concentration - - Weight 105.7 kg (233 lb) 11/12/2023 12:33 PM EDT Height 162.6 cm (5' 4") 11/12/2023 12:33 PM EDT Body Mass Index 39.99 11/12/2023 12:33 PM EDT documented in this encounter H&P Notes * Fer Solano MD - 11/12/2023 12:23 PM EDT Endoscopy Pre-Procedure Assessment Name: Ciara Baig Date: 11/12/2023 Time: 12:23 PM Procedure(s): Endoscopic Ultrasound; with Indication(s) of evaluation of abnormalities seen during routine endoscopy Endoscopy Pre-Procedure Assessment: Prior to the procedure, the patient was identified. The patient's history, medications and allergies were reviewed as per the Anesthesia Assessment. The patient is competent. The risks and benefits of the proposed procedure and the planned sedation were discussed with the patient. All questions were answered and informed consent for the procedure was obtained. Ht 1.626 m (5' 4") | Wt 105.7 kg (233 lb) | BMI 39.99 kg/m | BSA 2.18 m Review of patient's allergies indicates: Allergen Reactions Atarax [Hydroxyzine Hcl] halluzinating Cetirizine & Related HALLUCINATIONS Prior to Admission medications Medication Sig Last Dose Discont. Advanced Probiotic Oral Capsule Take 1 Capsule by mouth daily. 11/10/2023 Pantoprazole Sodium 40 MG Oral Tablet Delayed Release (Protonix) Take 1 Tablet by mouth 2 times a day. 11/10/2023 Torsemide 10 MG Oral Tablet (Demadex) Take 1 Tablet by mouth in the morning. 11/10/2023 Metoprolol Succinate ER 100 MG Oral Tablet Extended Release 24 Hour (toPROL XL) TAKE 1 AND 1/2 TABLETS BY MOUTH IN THE MORNING AND 1 TABLET IN THE EVENING 11/10/2023 oxyBUTYnin Chloride 5 MG Oral Tablet (Ditropan) TAKE 1 TABLET 2 TIMES DAILY 11/10/2023 Digoxin 125 MCG Oral Tablet (Lanoxin) Take 1 Tablet by mouth at bedtime. 11/09/2023 Insulin Glargine Solostar 100 UNIT/ML Subcutaneous Solution Pen-injector (Lantus SoloStar) INJECT 20 UNITS SUBCUTANEOUSLY TWICE DAILY 11/10/2023 Atorvastatin Calcium 40 MG Oral Tablet (Lipitor) TAKE 1 TABLET DAILY IN THE MORNING 11/10/2023 glipiZIDE 5 MG Oral Tablet (Glucotrol) Take 1 Tablet by mouth in the morning and 1 Tablet before bedtime. 30 minutes before a meal. 11/10/2023 Insulin Pen Needle 32G X 5 MM use to inject lantus twice per day 11/10/2023 Midodrine HCl 5 MG Oral Tablet (Proamatine) TAKE 1 TAB BY MOUTH SHORTLY BEFORE OR UPON RISING IN THE MORNING, AT MIDDAY, AND IN THE LATE AFTERNOON (NO LATER THAN 6PM) 11/10/2023 Apixaban 5 MG Oral Tablet (Eliquis) Take 1 Tablet by mouth in the morning and 1 Tablet before bedtime. 11/10/2023 acetaminophen (TYLENOL) 325 MG Tablet 2 Tablets. Past Month Magnesium 400 MG Capsule Take 1 by mouth daily. 11/10/2023 aspirin enteric coated 81 MG TBEC Take 1 Tab by mouth daily. 11/10/2023 ONETOUCH ULTRASOFT LANCETS MISC Use as directed daily. Use up to four times a day as directed. Dx E11.9 11/10/2023 Cinnamon 500 MG Capsule Take 2 Capsules by mouth in the morning. 11/10/2023 CALCIUM 8618-3716 MG-UNIT PO CHEW Take 1 Tablet by mouth in the morning. 11/10/2023 MULTIVITAMIN/MINERAL FORMULA TABS OR 1 TABLET DAILY 11/10/2023 Amoxicillin 500 MG Oral Capsule (Amoxil) Take 2 Capsules by mouth in the morning and 2 Capsules before bedtime. For 10 days. Patient not taking: Reported on 11/02/2023 Not Taking Clarithromycin 500 MG Oral Tablet (Biaxin) Take 1 Tablet by mouth in the morning and 1 Tablet before bedtime. For 10 days. Over 30 Days Abrysvo 120 MCG/0.5ML Intramuscular Solution Reconstituted (RSV Pre-Fusion F A&B Vac Rcmb) inject as directed COVID-19 mRNA Vaccine 12 years and above Pfizer 30 MCG/0.3 ML IM SUSP Inject into a large muscle asdirected Fluzone High-Dose Quadrivalent 0.7 ML Suspension Prefilled Syringe (Influenza Vac High-Dose Quad (65 years and older)) Inject 0.7 ml intramuscularly as directed OneRevo Round VerZhui Xin In Vitro Strip (Glucose Blood) Check blood sugars one time daily. Dx E11.9 Nitroglycerin 0.4 MG Sublingual Tablet Sublingual (Nitrostat) Place 1 Tablet under the tongue every5 minutes as needed for Pain, Chest. Over 30 Days Loratadine 10 MG Oral Capsule Take 1 Capsule by mouth in the morning. Over 30 Days SYSTANE PRESERVATIVE FREE 0.4-0.3 % OP SOLN 1 gtt OU q2h WA Physical Exam: Mental Status Examination: alert and oriented. Airway Examination: normal oropharyngeal airway and neck mobility. Respiratory Examination: clear to auscultation. CV Examination: Regular rate and rythm, no murmurs. ASA Grade: II - A patient with mild systemic disease. After reviewing the risks and benefits, the patient was deemed in satisfactory condition to undergothe procedure. The anesthesia plan was to use sedation. Patient was explained in detail regarding risks, benefits, limitations and alternatives of the above endoscopic procedure. Risks of intravenous sedation used for procedure were also explained. Risks include, but not limited to perforation, bleeding, infection, respiratory distress, cardiac arrest and . Risk of acute pancreatitis and necrosis if ERCP is done. Patient is also aware about the possibility of missed lesion. Patient's questions were answered. The patient verbalized understandingthe information and agreed to undergo the procedure. Discussed with the patient that he/she is at an explicit higher risk for complications in comparison to other patients Fer Solano MD 11/12/2023 documented in this encounter Procedure Notes * Whitney Aranda MD - 11/12/2023 12:24 PM EDTAssociated Order(s): UPPER ENDOSCOPIC U/S [facility] Patient Name: Ciara Baig Procedure Date: 11/12/2023 12:24 PM Date of : 1945 Admit Type: Outpatient Note Status: Draft Date of : 1945 Admit Type: Outpatient Age: 78 Room: Advanced [facility] Gender: Female Note Status: Finalized Procedure: Upper EUS Indications: Staging of esophageal adenocarcinoma Providers: Fer Solano MD (Doctor), [place] Grover RN Referring MD: Whitney Aranda MD (Referring MD), Jason West MD (Referring MD) Medicines: Propofol per Anesthesia Complications: No immediate complications. Procedure: Pre-Anesthesia Assessment: - Prior to the procedure, a History and Physical was performed, and patient medications, allergies and sensitivities were reviewed. The patient's tolerance of previous anesthesia was reviewed. - The risks and benefits of the procedure and the sedation options and risks were discussed with the patient. All questions were answered and informed consent was obtained. - Patient identification and proposed procedure were verified prior to the procedure by the physician and the nurse. The procedure was verified in the procedure room. - Pre-procedure physical examination revealed no contraindications to sedation. After obtaining informed consent, the endoscope was passed under direct vision. All instruments were visually inspected immediately before and after removal from the patient to ensure they are fully intact. Throughout the procedure, the patient's blood pressure, pulse, and oxygen saturations were monitored continuously.The upper EUS was accomplished without difficulty. The patient tolerated the procedure well. The [id number] Endoscope ([id number]) was introduced through the mouth, and advanced to the second part of duodenum. The GIF-H180 Endoscope ([id number]) was introduced through the mouth, and advanced to the second part of duodenum. Findings & Specimens: ENDOSONOGRAPHIC FINDING: : A hypoechoic mass was found in the lower third of the esophagus. The mass was encountered at 39 cm from the incisors. The lesion was almost circumferential. The endosonographic borders were well-defined.The mass measured up to 10 mm in thickness. There was sonographic evidence suggesting invasion into the adventitia (Layer 5). There was no sign of significant endosonographic abnormality in the visualized portion of the liver. Homogeneous parenchyma was identified. No lymphadenopathy seen. Impression: - A mass was found in the lower third of the esophagus/GEJ extending deeply into the gastric cardia consistent with adenocarcinoma. This was staged T3 N0 Mx by endosonographic criteria. - There was no evidence of significant pathology in the visualized portion of the liver. - No specimens collected. Recommendation: - Discharge patient to home. - Return to referring physician. - Refer to an oncologist. Fer Solano MD 11/12/2023 1:38:50 PM This report has been signed electronically. documented in this encounter Nursing Notes * Monique Ortiz RN - 11/12/2023 3:00 PM EDT Patient is alert, pain free, passing flatus and tolerating po fluids prior to discharge. Patient has been visited by Dr. Solano. Patient has received and demonstrates understanding of discharge instructions. Patient is transported via w/c to private auto accompanied by endo staff. * Jonas Carrera RN - 11/12/2023 2:53 PM EDT Patient is alert, pain free, tolerating po fluids prior to discharge. Patient has been visited by Dr. Solano. Patient has received and demonstrates understanding of discharge instructions. Patient ambulated to private auto accompanied by endo staff. * Jonas Carrera RN - 11/12/2023 2:52 PM EDT Pt sitting at bedside dressing self denies any pain or dizziness. * Monique Ortiz RN - 11/12/2023 1:34 PM EDT Patient transferred to post endo s/p egd/eus. Patient awake and oriented. Respirations are even and unlabored on room air. NSR in the 80s on the monitor. Abdomen soft and non distended. Vital signs stable. * Benoit Grover RN - 11/12/2023 1:32 PM EDT See anesthesia record for medication administered during procedure. Benoit Grover RN Pre cleaning of scope at the bedside started by aviation technician aircraft. * Deidra Mirza RN - 11/12/2023 12:50 PM EDT The following pt discharge instructions reviewed with pt prior to prodedure: No driving today. No alcohol today. No signing of legal documents. Rest as much as possible today and can return to normal activities tomorrow. No operating any heavy equipment today. Diet as tolerated. Pt verbalized understanding. documented in this encounter Plan of Treatment Upcoming Encounters Date Type Department Care Team (Late st Contact Info) Description 11/15/2023 11:30 AM EDT Office Visit Cardiology, [facility] [address] [facility] [place] [address] Aurelio Viera PA-C [address] [facility] [place] [address] 12/31/2023 2:40 PM EDT Office Visit [facility] [address] [place] [facility] [place] [phone] Jason West MD [address] [place] [address] 03/08/2024 10:00 AM EDT Cardiac Studies Cardiology, [facility] [address] [place] [address] Delmar Palacios [facility] [address] [place] [address] Scheduled Orders Name Type Priority Associated Diagnoses Orde r Schedule GLUCOSE METER, POINT OF CARE (COMMUNICATION ORDER) Point of Care Testing Routine Perform Now for 1 Occurrences starting 11/12/2023 until 11/12/2023 Health Maintenance Due Date Last Done Comments Hepatitis C Screening 1963 GFR 09/08/2023 03/08/2023, 03/0 09/2022, 01/13/2022, Additional history exists HbA1c 09/08/2023 03/08/2023, 03/0 09/2022, 01/13/2022, Additional history exists Albumin/Creatinine Ratio 10/03/2023 023, 08/28/2021, 11/18/2020, Additional history exists CKD PHOS USE SMARTSET 93321 10/03/2023 03/0 09/2022, 03/17/2021, 08/18/2019, Additional history exists CKD HGB USE SMARTSET 37085 03/08/202403/08, 10/02/2022, 07/29/2021, Additional history exists DIG [...] Procedure Name Priority Date/Time Associated Diagnosis Comments GLUCOSE METER, POINT OF CARE SKIP 11/12/2023 12:38 PM EDT UPPER ENDOSCOPIC U/S 11/12/2023 12:24 PM EDT documented in this encounter Results * (ABNORMAL) GLUCOSE METER, POINT OF CARE (11/12/2023 12:38 PM EDT) Glucose Meter 202(H) 70 - 120 mg/dL 11/12/2023 2:52 PM EDT LAB[facility] 57-00 Blood Whole blood specimen / Unknown 11/12/2023 12:38 PM EDT 11/12/2023 2:52 PM EDT Fer Solano MD LAB POINT OF CARE T EST DOCKED DEVICE UNSOLICITED RESULTS LABORATORY [facility] 57-00 [address] [facility] [place] [address] * UPPER ENDOSCOPIC U/S (11/12/2023 12:24 PM EDT) 11/12/2023 12:2 4 PM EDT Narrative Procedure Note Whitney Aranda MD - 11/12/2023 12:24 PM EDT [facility] Patient Name: Ciara Baig Procedure Date: 11/12/2023 12:24 PMMRN: [id number] Date of : 1945 Admit Type: Outpatient Note Status:Draft Date of : 1945 Admit Type: Outpatient Age: 78 Room: Advanced Endo Gender: Female Note Status: Finalized Procedure: Upper EUS Indications: Staging of esophageal adenocarcinoma Providers: Fer Solano MD (Doctor), [place] Grover RN Referring MD: Whitney Aranda MD (Referring MD), Jason Bates MD (Referring MD) Medicines: Propofol per Anesthesia Complications: No immediate complications. Procedure: Pre-Anesthesia Assessment: - Prior to the procedure, a History and Physicalwas performed, and patient medications, allergies and sensitivities werereviewed. The patient's tolerance of previous anesthesia was reviewed. - The risks and benefits of the procedure and thesedation options and risks were discussed with the patient. All questions wereanswered and informed consent was obtained. - Patient identification and proposed procedurewere verified prior to the procedure by the physician and the nurse. The procedure wasverified in the procedure room. - Pre-procedure physical examination revealed nocontraindications to sedation. After obtaining informed consent, the endoscope waspassed under direct vision. All instruments were visually inspected immediatelybefore and after removal from the patient to ensure they are fully intact. Throughout the procedure, the patient's bloodpressure, pulse, and oxygen saturations were monitored continuously.The upper EUS wasaccomplished without difficulty. The patient tolerated the procedure well. The [id number] ([id number]) was introduced through the mouth, and advanced to the second partof duodenum. The GIF-H180 Endoscope ([id number]) was introduced through themouth, and advanced to the second part of duodenum. Findings & Specimens: ENDOSONOGRAPHIC FINDING: : A hypoechoic mass was found in the lower third of the esophagus. Themass was encountered at 39 cm from the incisors. The lesion was almost circumferential. Theendosonographic borders were well-defined. The mass measured up to 10 mm in thickness. There was sonographicevidence suggesting invasion into the adventitia (Layer 5). There was no sign of significant endosonographic abnormality in thevisualized portion of the liver. Homogeneous parenchyma was identified. No lymphadenopathy seen. Impression: - A mass was found in the lower third of theesophagus/GEJ extending deeply into the gastric cardia consistent with adenocarcinoma. Thiswas staged T3 N0 Mx by endosonographic criteria. - There was no evidence of significant pathology inthe visualized portion of the liver. - No specimens collected. Recommendation: - Discharge patient to home. - Return to referring physician. - Refer to an oncologist. Fer Solano MD 11/12/2023 1:38:50 PM This report has been signed electronically. Whitney Aranda MD GASTRO UPPER documented in this encounter Administered Medications Inactive Administered Medications - up to 3 most recent administrations Medication Order MAR Action Action Date Dose Rate Site isolyte-S pH 7.4 infusion Intravenous, at 100 mL/hr, Plasma-LYTE 148, isolyte-S, and isolyte-S pH 7.4 are considered equivalent - including for MAR barcode scanning., CONTINUOUS, Starting on Wed11/12/23 at 1300, Until Wed11/12/23 at 1902, Pre-Op Restarted 11/12/2023 1:34 PM EDT Continue from Pre-Op 11/12/2023 1:01 PM EDT 100 mL/hr New Bag 11/12/2023 12:48 PM EDT 100 mL/hr documented in this encounter Active and Recently Administered Medications Times are shown in EDT. Continuous Medication Order 11/10/2023 11/11/2023 11/12/2023 isolyte-S pH 7.4 infusion Intravenous, at 100 mL/hr, Plasma-LYTE 148, isolyte-S, and isolyte-S pH 7.4 are considered equivalent - including for MAR barcode scanning., CONTINUOUS, Starting on Wed11/12/23 at 1300, Until Wed11/12/23 at 1902, Pre-Op 1248 (New Bag - Prov ider: Deidra Mirza RN)1301 (Continue from Pre-Op - Provider: Jillian Russo CRNA)1333 (Paused - Provider: Jillian Russo CRNA - Comment: Switch to gravity)1334 (Restarted - Provider: Jillian Russo CRNA) documented in this encounter Care Teams Centerless Grinder Relationship Specialty Start Date End Date Jason West MD [address] [facility] [place] [address] PCP - General 02/06/03 documented as of this encounter
--- OUTSIDE RECORDS SUMMARY | 2023-12-21 08:57 | External Medical Summary | Summary of Care ---
Author Name Unknown Organization [facility] Address [address] [place] [address] Phone [phone] Care Team Providers Care Insurance Territory Manager Name Role Phone Jason West MD Primary Care Provider [phone]- [phone] Reason for Referral * Precert (Within 10 days (routine)) - Pending Review Specialty Diagnoses / Procedures Referred By Abdullahi melo Referred To Contact Radiology Diagnoses Malignant neoplasm of lower third of esophagus (HCC) Procedures PET CT SKULL BASE TO MID-THIGH FDG Whitney Mckenzie MD [address] [place] [address] Referral ID Status Reason Start Date Expiration Date V isits Requested Visits Authorized [id number] Pending Review 11/19/2023 999 999 Reason for Visit * Reason Onset Date Comments Other 11/12/2023 Encounter Details Date Type Department Care Team (Late st Contact Info) Description 11/12/2023 Telephone Gastroenterology, [facility] [address] [place] [address] Whitney Mckenzie MD [address] [place] [address] Other Allergies Active Allergy Reactions Criticality Noted Date Comments Hydroxyzine Hcl 05/12/2012 halluzinating Cetirizine & Related 02/11/1999 HALLUCINATIONS documented as of this encounter (statuses as of 11/15/2023) Medications Medication Sig Dispensed Refills Start Date End Date Status MULTIVITAMIN/PIANO INSTRUCTOR AL FORMULA TABS OR 1 TABLET DAILY 0 0 12/02/2001 Active SYSTANE PRESERVATIVE FREE 0.4-0.3 % OP SOLNIndications:Ot her anterior corneal dystrophies 1 gtt OU q2h WA 1 box 6 12/03/2008 Active CALCIUM 9798-1764 MG-UNIT PO CHEW Take 1 Tablet by mouth in the morning. 0 Active Cinnamon 500 MG Capsule Take 2 Capsules by mouth in the morning. 0 Active ONETOUCH ULTRASOFT LANCETS MISCIndications:DM type 2 causing renal disease ([facility]) Use as directed daily. Use up to four times a day as directed. Dx E11.9 3 Box Dosing Unit 3 09/13/2018 Active aspirin enteric coated 81 MG TBECIndications:Co ronary artery disease involving [place] coronary artery of [place] heart without angina pectoris Take 1 Tab [...] Tablet Sublingual (Nitrostat)Indicat ions:Coronary artery disease involving [place] coronary artery of [place] heart without angina pectoris,Old [place] (myocardial infarction) Place 1 Tablet under the tongue every 5 minutes as needed for Pain, Chest. 25 Tablet 5 09/03/2022 Active Apixaban 5 MG Oral Tablet (Eliquis)Indicatio ns:PAF (paroxysmal atrial fibrillation) ([facility]) Take 1 Tablet by mouth in the morning and 1 Tablet before bedtime. 180 Tablet 3 01/01/2023 Active Midodrine HCl 5 MG Oral Tablet (Proamatine)Indica tions:Chronic systolic heart failure (HCC),Coronary artery disease involving [place] coronary artery of [place] heart without angina pectoris TAKE 1 TAB BY MOUTH SHORTLY BEFORE OR UPON RISING IN THE MORNING, AT MIDDAY, AND IN THE LATE AFTERNOON (NO LATER THAN 6PM) 270 Tablet 3 03/25/2023 Active Insulin Pen Needle 32G X 5 MMIndications:DM type 2 causing renal disease, not at goal ([facility]) use to inject lantus twice per day 200 Each 3 03/26/2023 Active OneTouch Verio In Vitro Strip (Glucose Blood)Indications: DM type 2 causing renal disease ([facility]) Check blood sugars one time daily. Dx E11.9 300 Strip 2 05/03/2023 Active glipiZIDE 5 MG Oral Tablet (Glucotrol) Take 1 Tablet by mouth in the morning and 1 Tablet before bedtime. 30 minutes before a meal. 180 Tablet 1 05/27/2023 Active Atorvastatin Calcium 40 MG Oral Tablet (Lipitor)Indicatio ns:Coronary artery disease involving [place] coronary artery of [place] heart without angina pectoris,Dyslipide mona TAKE 1 TABLET DAILY IN THE MORNING 90 Tablet 3 05/27/2023 Active Insulin Glargine Solostar 100 UNIT/ML Subcutaneous Solution Pen-injector (Lantus SoloStar)Indicatio ns:DM type 2 causing renal disease, not at goal ([facility]) INJECT 20 UNITS SUBCUTANEOUSLY TWICE DAILY 30 mL 2 07/08/2023 Active Digoxin 125 MCG Oral Tablet (Lanoxin)Indicatio ns:Chronic systolic heart failure (HCC),Coronary artery disease involving [place] coronary artery of [place] heart without angina pectoris Take 1 Tablet [...] single episode, in full remission 12/07/2018 [place] (myocardial infarction) 03/31/2018 Heart failure, systolic, due to CAD 03/31/2018 Lymphedema of both lower extremities 03/31/2018 Dyslipidemia 02/18/2018 Coronary artery disease invo lving [place] coronary artery of [place] heart without angina pectoris 12/10/2017 PAF (paroxysmal [...] mRNA, LNP-s, No Pre serve, 2-Dose Series ([employer]) 07/23/2021,11/14/2020,10/24/2020 COVID-19, MRNA-LNP, 23-24, P F, 30 MCG/0.3 mL, 12 YRS AND ABOVE, IM ([employer]-Comirnaty) 05/26/2023 Covid-19, Mrna, Lnp-s, Pf, B ivalent, [...] PM EDT Called pt and adolfo'd at [facility] for 11/22 at 1:45 pm. NPO 6 hrs and meds with sip of water. Pt agreeable. * Telephone Encounter - Tami Reeder OSA - 11/15/2023 1:36 PM EDT I placed the appropriate order with the appropriate diagnosis. Obviously, 1 month for a staging test is too long to wait. Please schedule for own or [place] ifpossible. Needs to be done 1-2 weeks. * Telephone Encounter - Tami Reeder OSA - 11/15/2023 10:08 AM EDT Lmm * Addendum Note - Whitney Mckenzie MD - 11/12/2023 3:15 PM EDTAddended by: WHITNEY MCKENZIE on: 11/12/2023 03:15 PM Modules accepted: Orders * Telephone Encounter - Fer Solano MD - 11/12/2023 2:53 PM EDT Forwarding to who ordered this. * Telephone Encounter - Karli Hill OSA - 11/12/2023 2:23 PM EDT There are [address] orders in the pt's chart; however, it will need to [place]. [place] [address] - skull to mid thigh DX codes [...] Description 11/23/2023 1:45 PM EDT Imaging Radiology, [address] [place] [id number] 12/31/2023 2:40 PM EDT Office Visit [facility] [address] [place] [address] Jason West MD [address] [place] [address] 02/09/2024 3:00 PM EDT Office [facility] [place] [address] Aurelio Viera PA-C [address] [place] [address] 03/08/2024 10:00 AM EDT Cardiac Studies [facility], [facility] [place] [address] [address] [place] [place] [address] Scheduled Orders Name Type Priority Associated Diagnoses [...] Additional history exists CKD PHOS USE SMARTSET 88260 10/03/2023 03/0 09/2022, 03/17/2021, 08/18/2019, Additional history exists CKD HGB USE SMARTSET 86839 03/08/202403/08, 10/02/2022, 07/29/2021, Additional history exists DIG [...] esophagus documented in this encounter Care Teams Insurance Territory Manager Relationship Specialty Start Date End Date Jason West MD [address] [place] [address] PCP - General 02/06/03 documented as of this encounter
--- OUTSIDE RECORDS SUMMARY | 2023-12-21 08:57 | External Medical Summary | Summary of Care ---
Author Name Unknown Organization [facility] Address [address] [place] [address] Phone [phone] Care Team Providers Care Order Builder Name Role Phone Jason West MD Primary Care Provider +1- [phone] Reason for Referral * Evaluate & Treat - Unlimited Visits (Within 10 days (routine)) - Authorized Specialty Diagnoses / Procedures Referred By Abdullahi melo Referred To Contact Hematology/Oncology / Hematology Oncology Diagnoses GE junction carcinoma (HCC) Fer Solano MD [address] [place] [id number] Referral ID Status Reason Start Date Expiration Date Visits Requested Visits Authorized [id number] Authorized Specialty Services Required 11/12/2023 11/11/2024 999 999 Question Answer Referral Priority Within 10 days (routine) Where should this appointment be scheduled? [facility] Reason for Referral Malignant Oncology (Solid Organ Cancer) Comments Esophageal adenocarcinoma Encounter Details Date Type Department Care Team (Late st Contact Info) Description 11/12/2023 Telephone Gastroenterology, [facility] [address] [address] Fer Solano MD [address] [place] [address] Allergies Active Allergy Reactions Criticality Noted Date Comments Hydroxyzine Hcl 05/12/2012 halluzinating Cetirizine & Related 02/11/1999 HALLUCINATIONS documented as of this encounter (statuses as of 11/15/2023) Medications Medication Sig Dispensed Refills Start Date End Date Status MULTIVITAMIN/DRUG ENFORCEMENT ADMINISTRATION AGENT AL FORMULA TABS OR 1 TABLET DAILY 0 0 12/02/2001 Active SYSTANE PRESERVATIVE FREE 0.4-0.3 % OP SOLNIndications:Ot her anterior corneal dystrophies 1 gtt OU q2h WA 1 box 6 12/03/2008 Active CALCIUM 5209-8910 MG-UNIT PO CHEW Take 1 Tablet by mouth in the morning. 0 Active Cinnamon 500 MG Capsule Take 2 Capsules by mouth in the morning. 0 Active ONETOUCH ULTRASOFT LANCETS MISCIndications:DM type 2 causing renal disease ([facility]) Use as directed daily. Use up to four times a day as directed. Dx E11.9 3 Box Dosing Unit 3 09/13/2018 Active aspirin enteric coated 81 MG TBECIndications:Co ronary artery disease involving [place] coronary artery of [place] heart without angina pectoris Take 1 [...] Tablet Sublingual (Nitrostat)Indicat ions:Coronary artery disease involving [place] coronary artery of [place] heart without angina pectoris,Old [place] (myocardial infarction) Place 1 Tablet under the tongue every 5 minutes as needed for Pain, Chest. 25 Tablet 5 09/03/2022 Active Apixaban 5 MG Oral Tablet (Eliquis)Indicatio ns:PAF (paroxysmal atrial fibrillation) ([facility]) Take 1 Tablet by mouth in the morning and 1 Tablet before bedtime. 180 Tablet 3 01/01/2023 Active Midodrine HCl 5 MG Oral Tablet (Proamatine)Indica tions:Chronic systolic heart failure (HCC),Coronary artery disease involving [place] coronary artery of [place] heart without angina pectoris TAKE 1 TAB BY MOUTH SHORTLY BEFORE OR UPON RISING IN THE MORNING, AT MIDDAY, AND IN THE LATE AFTERNOON (NO LATER THAN 6PM) 270 Tablet 3 03/25/2023 Active Insulin Pen Needle 32G X 5 MMIndications:DM type 2 causing renal disease, not at goal ([facility]) use to inject lantus twice per day 200 Each 3 03/26/2023 Active OneTouch Verio In Vitro Strip (Glucose Blood)Indications: DM type 2 causing renal disease ([facility]) Check blood sugars one time daily. Dx E11.9 300 Strip 2 05/03/2023 Active glipiZIDE 5 MG Oral Tablet (Glucotrol) Take 1 Tablet by mouth in the morning and 1 Tablet before bedtime. 30 minutes before a meal. 180 Tablet 1 05/27/2023 Active Atorvastatin Calcium 40 MG Oral Tablet (Lipitor)Indicatio ns:Coronary artery disease involving [place] coronary artery of [place] heart without angina pectoris,Dyslipide mona TAKE 1 TABLET DAILY IN THE MORNING 90 Tablet 3 05/27/2023 Active Insulin Glargine Solostar 100 UNIT/ML Subcutaneous Solution Pen-injector (Lantus SoloStar)Indicatio ns:DM type 2 causing renal disease, not at goal ([facility]) INJECT 20 UNITS SUBCUTANEOUSLY TWICE DAILY 30 mL 2 07/08/2023 Active Digoxin 125 MCG Oral Tablet (Lanoxin)Indicatio ns:Chronic systolic heart failure (HCC),Coronary artery disease involving [place] coronary artery of [place] heart without angina pectoris Take 1 [...] Dyslipidemia 02/18/2018 Coronary artery disease invo lving [place] coronary artery of [place] heart without angina pectoris 12/10/2017 PAF [...] mRNA, LNP-s, No Pre serve, 2-Dose Series ([employer]) 07/23/2021,11/14/2020,10/24/2020 COVID-19, MRNA-LNP, 23-24, P F, 30 [...] encounter Miscellaneous Notes * Telephone Encounter - Fer Solano MD - 11/12/2023 2:34 PM EDT Please schedule referral to Oncology. documented in this encounter Plan of Treatment Upcoming Encounters Date Type Department Care Team (Late st Contact Info) Description 11/23/2023 1:45 PM EDT Imaging Radiology, [place] [address] [place] [id number] 12/31/2023 2:40 PM EDT Office Visit [facility] [address] [place] [address] Jason West MD [address] [place] [address] 02/09/2024 3:00 PM EDT Office Visit Cardiology, [facility] [address] [facility] [place] [address] Aurelio Viera PA-C 132 [facility] [place] [address] 03/08/2024 10:00 AM EDT Cardiac Studies Cardiology, [facility] 132 [facility] [place] [address] [facility] [address] [facility] [place] [address] Scheduled Referrals Name Type Priority Associated Diagnoses Orde r Schedule HEMATOLOGY/ONCOLOGY REFERRAL OP Referral Within 10 days (routine) GE junction carcinoma (HCC) Ordered: 11/12/2023 Health Maintenance Due Date Last Done Comments Hepatitis C Screening 1963 GFR 09/08/2023 03/08/2023, 03/0 09/2022, 01/13/2022, Additional history exists HbA1c 09/08/2023 03/08/2023, 03/0 09/2022, 01/13/2022, Additional history exists Albumin/Creatinine Ratio 10/03/202310/02/ 023, 08/28/2021, 11/18/2020, Additional history exists CKD PHOS USE SMARTSET 82528 10/03/2023 03/0 09/2022, 03/17/2021, 08/18/2019, Additional history exists CKD HGB USE SMARTSET 46907 03/08/202403/08, 10/02/2022, 07/29/2021, Additional history exists DIG [...] as of this encounter Visit Diagnoses Diagnosis 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
--- OUTSIDE RECORDS SUMMARY | 2023-12-21 08:57 | External Medical Summary | Summary of Care ---
Author Name Unknown Organization [facility] Address [address] [place] [address] Phone [phone] Care Team Providers Care Factorer Name Role Phone Jason West MD Primary Care Provider +1- [phone] Reason for Referral * Evaluate & Treat - Unlimited Visits (Within 10 days (routine)) - Authorized Specialty Diagnoses / Procedures Referred By Abdullahi melo Referred To Contact Hematology/Oncology / Hematology Oncology Diagnoses GE junction carcinoma (HCC) Fer Solano MD [address] [place] [address] Referral ID Status Reason Start Date Expiration Date Visits Requested Visits Authorized [id number] Authorized Specialty Services Required 11/12/2023 11/11/2024 999 999 Question Answer Referral Priority Within 10 days (routine) Where should this appointment be scheduled? [facility] Reason for Referral Malignant Oncology (Solid Organ Cancer) Comments Esophageal adenocarcinoma Encounter Details Date Type Department Care Team (Late st Contact Info) Description 11/12/2023 Telephone Gastroenterology, [facility] [address] [place] [address] Fer Solano MD [address] [place] [address] Allergies Active Allergy Reactions Criticality Noted Date Comments Hydroxyzine Hcl 05/12/2012 halluzinating Cetirizine & Related 02/11/1999 HALLUCINATIONS documented as of this encounter (statuses as of 11/16/2023) Medications Medication Sig Dispensed Refills Start Date End Date Status MULTIVITAMIN/LIGHTING ADVISER AL FORMULA TABS OR 1 TABLET DAILY 0 0 12/02/2001 Active SYSTANE PRESERVATIVE FREE 0.4-0.3 % OP SOLNIndications:Ot her anterior corneal dystrophies 1 gtt OU q2h WA 1 box 6 12/03/2008 Active CALCIUM 9060-4111 MG-UNIT PO CHEW Take 1 Tablet by mouth in the morning. 0 Active Cinnamon 500 MG Capsule Take 2 Capsules by mouth in the morning. 0 Active ONETOUCH ULTRASOFT LANCETS MISCIndications:DM type 2 causing renal disease ([facility]) Use as directed daily. Use up to four times a day as directed. Dx E11.9 3 Box Dosing Unit 3 09/13/2018 Active aspirin enteric coated 81 MG TBECIndications:Co ronary artery disease involving [place] coronary artery of [place] heart without angina pectoris Take 1 Tab [...] Tablet Sublingual (Nitrostat)Indicat ions:Coronary artery disease involving [place] coronary artery of [place] heart without angina pectoris,Old [place] (myocardial infarction) Place 1 Tablet under the tongue every 5 minutes as needed for Pain, Chest. 25 Tablet 5 09/03/2022 Active Apixaban 5 MG Oral Tablet (Eliquis)Indicatio ns:PAF (paroxysmal atrial fibrillation) ([facility]) Take 1 Tablet by mouth in the morning and 1 Tablet before bedtime. 180 Tablet 3 01/01/2023 Active Midodrine HCl 5 MG Oral Tablet (Proamatine)Indica tions:Chronic systolic heart failure (HCC),Coronary artery disease involving [place] coronary artery of [place] heart without angina pectoris TAKE 1 TAB BY MOUTH SHORTLY BEFORE OR UPON RISING IN THE MORNING, AT MIDDAY, AND IN THE LATE AFTERNOON (NO LATER THAN 6PM) 270 Tablet 3 03/25/2023 Active Insulin Pen Needle 32G X 5 MMIndications:DM type 2 causing renal disease, not at goal ([facility]) use to inject lantus twice per day 200 Each 3 03/26/2023 Active OneTouch Verio In Vitro Strip (Glucose Blood)Indications: DM type 2 causing renal disease ([facility]) Check blood sugars one time daily. Dx E11.9 300 Strip 2 05/03/2023 Active glipiZIDE 5 MG Oral Tablet (Glucotrol) Take 1 Tablet by mouth in the morning and 1 Tablet before bedtime. 30 minutes before a meal. 180 Tablet 1 05/27/2023 Active Atorvastatin Calcium 40 MG Oral Tablet (Lipitor)Indicatio ns:Coronary artery disease involving [place] coronary artery of [place] heart without angina pectoris,Dyslipide mona TAKE 1 TABLET DAILY IN THE MORNING 90 Tablet 3 05/27/2023 Active Insulin Glargine Solostar 100 UNIT/ML Subcutaneous Solution Pen-injector (Lantus SoloStar)Indicatio ns:DM type 2 causing renal disease, not at goal ([facility]) INJECT 20 UNITS SUBCUTANEOUSLY TWICE DAILY 30 mL 2 07/08/2023 Active Digoxin 125 MCG Oral Tablet (Lanoxin)Indicatio ns:Chronic systolic heart failure (HCC),Coronary artery disease involving [place] coronary artery of [place] heart without angina pectoris Take 1 Tablet [...] as of this encounter (statuses as of 11/16/2023) Active Problems Problem Noted Date Diagnosed Date Chronic kidney disease, stage 3a 01/14/2021 Overview: Per CKD protocol Type 2 diabetes mellitus wit h stage 3a chronic kidney disease 12/10/2020 Overview: Per CKD protocol Chronic systolic heart failure 11/21/2020 DM type 2 causing renal disease, 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, in full remission 12/07/2018 [place] (myocardial infarction) 03/31/2018 Heart failure, systolic, due to CAD 03/31/2018 Lymphedema of both lower extremities 03/31/2018 Dyslipidemia 02/18/2018 Coronary artery disease invo lving [place] coronary artery of [place] heart without angina pectoris 12/10/2017 PAF (paroxysmal atrial fibrillation) 12/10/2017 Type 2 diabetes mellitus wit h hemoglobin A1c goal of less than 8.0% 09/08/2013 Overview: ICD-10 update of inactive term DJD, CERVICAL SPINE 04/12/2002 GENERAL OSTEOARTHROSIS documented as of this encounter (statuses as of 11/16/2023) Resolved Problems Problem Noted Date Diagnosed Date [...] as of this encounter (statuses as of 11/16/2023) Immunizations Name Administration Dates Next Due COVID-19 mRNA, LNP-s, No Pre serve, 2-Dose Series ([employer]) 07/23/2021,11/14/2020,10/24/2020 COVID-19, MRNA-LNP, 23-24, P F, 30 [...] encounter Miscellaneous Notes * Telephone Encounter - Karli Hill OSA - 11/16/2023 11:23 AM EDT Scheduled DERRICK Diaz 11/16/2023 11:23 AM * Telephone Encounter - Fer Solano MD - 11/12/2023 2:34 PM EDT Please schedule referral to Oncology. documented in this encounter Plan of Treatment Upcoming Encounters Date Type Department Care Team (Late st Contact Info) Description 11/23/2023 1:45 PM EDT Imaging Radiology, [address] [place] [address] 11/24/2023 3:00 PM EDT [facility] [address] [place] [phone] Marquez Kolb MD [address] [place] [address] 12/17/2023 1:00 PM EDT Office Visit Loc[facility] [address] [facility] [id number] Jason West MD [address] [place], [place] [id number] 02/09/2024 3:00 PM EDT Office Visit Cardiology, [facility] [address] [place] [address] Aurelio Viera PA-C [address] [place] [address] 03/08/2024 10:00 AM EDT Cardiac Studies Cardiology, [facility] [address] [place] [address] [facility] [address] [place] [address] Scheduled Referrals Name Type Priority Associated Diagnoses [...] Additional history exists CKD PHOS USE SMARTSET 57761 10/03/2023 03/0 09/2022, 03/17/2021, 08/18/2019, Additional history exists CKD HGB USE SMARTSET 38706 03/08/202403/08, 10/02/2022, 07/29/2021, Additional history exists DIG [...] cardia documented in this encounter Care Teams Factorer Relationship Specialty Start Date End Date Jason West MD [address] [place] [address] PCP - General 02/06/03 documented as of this encounter
--- OUTSIDE RECORDS SUMMARY | 2023-12-21 08:57 | External Medical Summary | Summary of Care ---
Author Name Unknown Organization [facility] Address [address] [place] [address] Phone [phone] Care Team Providers Care Field Artillery Cannoneer Name Role Phone Jason West MD Primary Care Provider [phone]- [phone] Reason for Referral * Precert (Within 10 days (routine)) - Pending Review Specialty Diagnoses / Procedures Referred By Abdullahi melo Referred To Contact Radiology Diagnoses Malignant neoplasm of lower third of esophagus (HCC) Procedures PET CT SKULL BASE TO MID-THIGH FDG Whitney Mckenzie MD [address] [place] [address] Referral ID Status Reason Start Date Expiration Date V isits Requested Visits Authorized [id number] Pending Review 11/19/2023 999 999 Reason for Visit * Reason Onset Date Comments Other 11/12/2023 Encounter Details Date Type Department Care Team (Late st Contact Info) Description 11/12/2023 Telephone Gastroenterology, [facility] [address] [place] [address] Whitney Mckenzie MD [address] [place] [address] Other Allergies Active Allergy Reactions Criticality Noted Date Comments Hydroxyzine Hcl 05/12/2012 halluzinating Cetirizine & Related 02/11/1999 HALLUCINATIONS documented as of this encounter (statuses as of 11/15/2023) Medications Medication Sig Dispensed Refills Start Date End Date Status MULTIVITAMIN/PRODUCTION MANAGER AL FORMULA TABS OR 1 TABLET DAILY 0 0 12/02/2001 Active SYSTANE PRESERVATIVE FREE 0.4-0.3 % OP SOLNIndications:Ot her anterior corneal dystrophies 1 gtt OU q2h WA 1 box 6 12/03/2008 Active CALCIUM 9420-0663 MG-UNIT PO CHEW Take 1 Tablet by mouth in the morning. 0 Active Cinnamon 500 MG Capsule Take 2 Capsules by mouth in the morning. 0 Active ONETOUCH ULTRASOFT LANCETS MISCIndications:DM type 2 causing renal disease ([facility]) Use as directed daily. Use up to four times a day as directed. Dx E11.9 3 Box Dosing Unit 3 09/13/2018 Active aspirin enteric coated 81 MG TBECIndications:Co ronary artery disease involving [place] coronary artery of [place] heart without angina pectoris Take 1 Tab [...] Tablet Sublingual (Nitrostat)Indicat ions:Coronary artery disease involving [place] coronary artery of [place] heart without angina pectoris,[place] (myocardial infarction) Place 1 Tablet under the tongue every 5 minutes as needed for Pain, Chest. 25 Tablet 5 09/03/2022 Active Apixaban 5 MG Oral Tablet (Eliquis)Indicatio ns:PAF (paroxysmal atrial fibrillation) ([facility]) Take 1 Tablet by mouth in the morning and 1 Tablet before bedtime. 180 Tablet 3 01/01/2023 Active Midodrine HCl 5 MG Oral Tablet (Proamatine)Indica tions:Chronic systolic heart failure (HCC),Coronary artery disease involving [place] coronary artery of [place] heart without angina pectoris TAKE 1 TAB BY MOUTH SHORTLY BEFORE OR UPON RISING IN THE MORNING, AT MIDDAY, AND IN THE LATE AFTERNOON (NO LATER THAN 6PM) 270 Tablet 3 03/25/2023 Active Insulin Pen Needle 32G X 5 MMIndications:DM type 2 causing renal disease, not at goal ([facility]) use to inject lantus twice per day 200 Each 3 03/26/2023 Active OneTouch Verio In Vitro Strip (Glucose Blood)Indications: DM type 2 causing renal disease ([facility]) Check blood sugars one time daily. Dx E11.9 300 Strip 2 05/03/2023 Active glipiZIDE 5 MG Oral Tablet (Glucotrol) Take 1 Tablet by mouth in the morning and 1 Tablet before bedtime. 30 minutes before a meal. 180 Tablet 1 05/27/2023 Active Atorvastatin Calcium 40 MG Oral Tablet (Lipitor)Indicatio ns:Coronary artery disease involving [place] coronary artery of [place] heart without angina pectoris,Dyslipide mona TAKE 1 TABLET DAILY IN THE MORNING 90 Tablet 3 05/27/2023 Active Insulin Glargine Solostar 100 UNIT/ML Subcutaneous Solution Pen-injector (Lantus SoloStar)Indicatio ns:DM type 2 causing renal disease, not at goal ([facility]) INJECT 20 UNITS SUBCUTANEOUSLY TWICE DAILY 30 mL 2 07/08/2023 Active Digoxin 125 MCG Oral Tablet (Lanoxin)Indicatio ns:Chronic systolic heart failure (HCC),Coronary artery disease involving [place] coronary artery of [place] heart without angina pectoris Take 1 Tablet [...] single episode, in full remission 12/07/2018 [place] (myocardial infarction) 03/31/2018 Heart failure, systolic, due to CAD 03/31/2018 Lymphedema of both lower extremities 03/31/2018 Dyslipidemia 02/18/2018 Coronary artery disease invo lving [place] coronary artery of [place] heart without angina pectoris 12/10/2017 PAF (paroxysmal [...] mRNA, LNP-s, No Pre serve, 2-Dose Series ([employer]) 07/23/2021,11/14/2020,10/24/2020 COVID-19, MRNA-LNP, 23-24, P F, 30 MCG/0.3 mL, 12 YRS AND ABOVE, IM (TUNJI-Comirnaty) 05/26/2023 Covid-19, Mrna, Lnp-s, Pf, B ivalent, [...] [place]. [place] [address] - skull to mid thigh DX codes - R93.3 - Abnormal findings on diagnostic imaging of other parts of digestive tract C16.0 - - [place] Adenocarcinoma I sent email to rad cert team for prior auth. Called [facility] and d/t them having the construction, they are not there as much and right now their first available appt is 12/15/23 - Mobile PET CT DERRICK Diaz 11/12/2023 2:34 PM documented in this encounter Plan of Treatment Upcoming Encounters Date Type Department Care Team (Late st Contact Info) Description 12/31/2023 2:40 PM EDT [facility] [address] [facility] [id number] Jason West MD [address] [place] [facility] [address] 03/08/2024 10:00 AM EDT Cardiac Studies Cardiology, [facility] [address] [facility] [place] [address] [facility] [address] [address] Scheduled Orders Name Type Priority Associated Diagnoses [...] Additional history exists CKD PHOS USE SMARTSET 11584 10/03/2023 03/0 09/2022, 03/17/2021, 08/18/2019, Additional history exists CKD HGB USE SMARTSET 22167 03/08/202403/08, 10/02/2022, 07/29/2021, Additional history exists DIG [...] esophagus documented in this encounter Care Teams Field Artillery Cannoneer Relationship Specialty Start Date End Date Jason West MD [address] [place] [address] PCP - General 02/06/03 documented as of this encounter
--- OUTSIDE RECORDS SUMMARY | 2023-12-21 08:57 | External Medical Summary | Summary of Care ---
Author Name Unknown Organization [facility] Address [address] [place] [address] Phone [phone] Care Team Providers Care 911 Operator Name Role Phone Jason West MD Primary Care Provider [phone]- [phone] Reason for Referral * Precert (Within 10 days (routine)) - Pending Review Specialty Diagnoses / Procedures Referred By Abdullahi melo Referred To Contact Radiology Diagnoses Malignant neoplasm of lower third of esophagus (HCC) Procedures PET CT SKULL BASE TO MID-THIGH FDG Whitney Mckenzie MD [address] [place] [address] Referral ID Status Reason Start Date Expiration Date V isits Requested Visits Authorized [id number] Pending Review 11/19/2023 999 999 Reason for Visit * Reason Onset Date Comments Other 11/12/2023 Encounter Details Date Type Department Care Team (Late st Contact Info) Description 11/12/2023 Telephone Gastroenterology, [facility] [address] [place] [address] Whitney Mckenzie MD [address] [place] [address] Other Allergies Active Allergy Reactions Criticality Noted Date Comments Hydroxyzine Hcl 05/12/2012 halluzinating Cetirizine & Related 02/11/1999 HALLUCINATIONS documented as of this encounter (statuses as of 11/15/2023) Medications Medication Sig Dispensed Refills Start Date End Date Status MULTIVITAMIN/BICYCLE TAXI DRIVER AL FORMULA TABS OR 1 TABLET DAILY 0 0 12/02/2001 Active SYSTANE PRESERVATIVE FREE 0.4-0.3 % OP SOLNIndications:Ot her anterior corneal dystrophies 1 gtt OU q2h WA 1 box 6 12/03/2008 Active CALCIUM 9964-0512 MG-UNIT PO CHEW Take 1 Tablet by mouth in the morning. 0 Active Cinnamon 500 MG Capsule Take 2 Capsules by mouth in the morning. 0 Active ONETOUCH ULTRASOFT LANCETS MISCIndications:DM type 2 causing renal disease ([facility]) Use as directed daily. Use up to four times a day as directed. Dx E11.9 3 Box Dosing Unit 3 09/13/2018 Active aspirin enteric coated 81 MG TBECIndications:Co ronary artery disease involving [place] coronary artery of [place] heart without angina pectoris Take 1 Tab [...] Tablet Sublingual (Nitrostat)Indicat ions:Coronary artery disease involving [place] coronary artery of [place] heart without angina pectoris,Old [place] (myocardial infarction) Place 1 Tablet under the tongue every 5 minutes as needed for Pain, Chest. 25 Tablet 5 09/03/2022 Active Apixaban 5 MG Oral Tablet (Eliquis)Indicatio ns:PAF (paroxysmal atrial fibrillation) ([facility]) Take 1 Tablet by mouth in the morning and 1 Tablet before bedtime. 180 Tablet 3 01/01/2023 Active Midodrine HCl 5 MG Oral Tablet (Proamatine)Indica tions:Chronic systolic heart failure (HCC),Coronary artery disease involving [place] coronary artery of [place] heart without angina pectoris TAKE 1 TAB BY MOUTH SHORTLY BEFORE OR UPON RISING IN THE MORNING, AT MIDDAY, AND IN THE LATE AFTERNOON (NO LATER THAN 6PM) 270 Tablet 3 03/25/2023 Active Insulin Pen Needle 32G X 5 MMIndications:DM type 2 causing renal disease, not at goal ([facility]) use to inject lantus twice per day 200 Each 3 03/26/2023 Active OneTouch Verio In Vitro Strip (Glucose Blood)Indications: DM type 2 causing renal disease ([facility]) Check blood sugars one time daily. Dx E11.9 300 Strip 2 05/03/2023 Active glipiZIDE 5 MG Oral Tablet (Glucotrol) Take 1 Tablet by mouth in the morning and 1 Tablet before bedtime. 30 minutes before a meal. 180 Tablet 1 05/27/2023 Active Atorvastatin Calcium 40 MG Oral Tablet (Lipitor)Indicatio ns:Coronary artery disease involving [place] coronary artery of [place] heart without angina pectoris,Dyslipide mona TAKE 1 TABLET DAILY IN THE MORNING 90 Tablet 3 05/27/2023 Active Insulin Glargine Solostar 100 UNIT/ML Subcutaneous Solution Pen-injector (Lantus SoloStar)Indicatio ns:DM type 2 causing renal disease, not at goal ([facility]) INJECT 20 UNITS SUBCUTANEOUSLY TWICE DAILY 30 mL 2 07/08/2023 Active Digoxin 125 MCG Oral Tablet (Lanoxin)Indicatio ns:Chronic systolic heart failure (HCC),Coronary artery disease involving [place] coronary artery of [place] heart without angina pectoris Take 1 Tablet [...] single episode, in full remission 12/07/2018 [place] (myocardial infarction) 03/31/2018 Heart failure, systolic, due to CAD 03/31/2018 Lymphedema of both lower extremities 03/31/2018 Dyslipidemia 02/18/2018 Coronary artery disease invo lving [place] coronary artery of [place] heart without angina pectoris 12/10/2017 PAF (paroxysmal [...] mRNA, LNP-s, No Pre serve, 2-Dose Series ([employer]) 07/23/2021,11/14/2020,10/24/2020 COVID-19, MRNA-LNP, 23-24, P F, 30 MCG/0.3 mL, 12 YRS AND ABOVE, IM ([place]-Comirnaty) 05/26/2023 Covid-19, Mrna, Lnp-s, Pf, B ivalent, [...] PM EDT Called pt and adolfo'd at [facility] for 11/22 at 1:45 pm. NPO 6 hrs and meds with sip of water. Pt agreeable. * Telephone Encounter - Tami Reeder OSA - 11/15/2023 1:36 PM EDT I placed the appropriate order with the appropriate diagnosis. Obviously, 1 month for a staging test is too long to wait. Please schedule for own or [place] ifpossible. Needs to be done 1-2 weeks. [...] be changed. [place] [address] - skull to mid thigh DX codes [...] Description 11/23/2023 1:45 PM EDT Imaging Radiology, [address] [place] [id number] 12/31/2023 2:40 PM EDT Office Visit [facility] [address] [place] [address] Jason West MD [address] [place] [address] 02/09/2024 3:00 PM EDT Office Visit [facility], [facility] [place] [address] Aurelio Viera PA-C [address] [place] [address] 03/08/2024 10:00 AM EDT Cardiac Studies [facility], [facility] [place] [address] [address] [place] [address] Scheduled Orders Name Type Priority Associated Diagnoses [...] Additional history exists CKD PHOS USE SMARTSET 95338 10/03/2023 03/0 09/2022, 03/17/2021, 08/18/2019, Additional history exists CKD HGB USE SMARTSET 67363 03/08/202403/08, 10/02/2022, 07/29/2021, Additional history exists DIG [...] esophagus documented in this encounter Care Teams 911 Operator Relationship Specialty Start Date End Date Jason West MD [address] [place] [address] PCP - General 02/06/03 documented as of this encounter
--- OUTSIDE RECORDS SUMMARY | 2023-12-21 08:58 | External Medical Summary | Summary of Care ---
Author Name Unknown Organization [facility] Address [address] [place] [address] Phone [phone] Care Team Providers Care Intranet Developer Name Role Phone Jason West MD Primary Care Provider [phone]- [phone] Reason for Referral * Evaluate & Treat - Unlimited Visits (Within 10 days (routine)) - Pending Review Specialty Diagnoses / Procedures Referred By Abdullahi melo Referred To Contact Hematology/Oncology / Hematology Oncology Diagnoses GE junction carcinoma (HCC) Fer Solano MD [address] [employer] [place] [address] Referral ID Status Reason Start Date Expiration Date Visits Requested Visits Authorized [id number] Pending Review Specialty Services Required 11/12/[phone] Question Answer Referral Priority Within 10 days (routine) Where should this appointment be scheduled? [facility] Reason for Referral Malignant Oncology (Solid Organ Cancer) Comments Esophageal adenocarcinoma Encounter Details Date Type Department Care Team (Late st Contact Info) Description 11/12/2023 Telephone Gastroenterology, [facility] [address] [place] [address] Fer Solano MD [address] [place] [address] Allergies Active Allergy Reactions Criticality Noted Date Comments Hydroxyzine Hcl 05/12/2012 halluzinating Cetirizine & Related 02/11/1999 HALLUCINATIONS documented as of this encounter (statuses as of 11/12/2023) Medications Medication Sig Dispensed Refills Start Date End Date Status MULTIVITAMIN/RN CASE MANAGEMENT AL FORMULA TABS OR 1 TABLET DAILY 0 0 12/02/2001 Active SYSTANE PRESERVATIVE FREE 0.4-0.3 % OP SOLNIndications:Ot her anterior corneal dystrophies 1 gtt OU q2h WA 1 box 6 12/03/2008 Active CALCIUM 1289-8198 MG-UNIT PO CHEW Take 1 Tablet by mouth in the morning. 0 Active Cinnamon 500 MG Capsule Take 2 Capsules by mouth in the morning. 0 Active ONETOUCH ULTRASOFT LANCETS MISCIndications:DM type 2 causing renal disease ([facility]) Use as directed daily. Use up to four times a day as directed. Dx E11.9 3 Box Dosing Unit 3 09/13/2018 Active aspirin enteric coated 81 MG TBECIndications:Co ronary artery disease involving [place] coronary artery of [place] heart without angina pectoris Take 1 Tab [...] Tablet Sublingual (Nitrostat)Indicat ions:Coronary artery disease involving [place] coronary artery of [place] heart without angina pectoris,Old [place] (myocardial infarction) Place 1 Tablet under the tongue every 5 minutes as needed for Pain, Chest. 25 Tablet 5 09/03/2022 Active Apixaban 5 MG Oral Tablet (Eliquis)Indicatio ns:PAF (paroxysmal atrial fibrillation) ([facility]) Take 1 Tablet by mouth in the morning and 1 Tablet before bedtime. 180 Tablet 3 01/01/2023 Active Midodrine HCl 5 MG Oral Tablet (Proamatine)Indica tions:Chronic systolic heart failure (HCC),Coronary artery disease involving [place] coronary artery of [place] heart without angina pectoris TAKE 1 TAB BY MOUTH SHORTLY BEFORE OR UPON RISING IN THE MORNING, AT MIDDAY, AND IN THE LATE AFTERNOON (NO LATER THAN 6PM) 270 Tablet 3 03/25/2023 Active Insulin Pen Needle 32G X 5 MMIndications:DM type 2 causing renal disease, not at goal ([facility]) use to inject lantus twice per day 200 Each 3 03/26/2023 Active OneTouch Verio In Vitro Strip (Glucose Blood)Indications: DM type 2 causing renal disease ([facility]) Check blood sugars one time daily. Dx E11.9 300 Strip 2 05/03/2023 Active glipiZIDE 5 MG Oral Tablet (Glucotrol) Take 1 Tablet by mouth in the morning and 1 Tablet before bedtime. 30 minutes before a meal. 180 Tablet 1 05/27/2023 Active Atorvastatin Calcium 40 MG Oral Tablet (Lipitor)Indicatio ns:Coronary artery disease involving [place] coronary artery of [place] heart without angina pectoris,Dyslipide moan TAKE 1 TABLET DAILY IN THE MORNING 90 Tablet 3 05/27/2023 Active Insulin Glargine Solostar 100 UNIT/ML Subcutaneous Solution Pen-injector (Lantus SoloStar)Indicatio ns:DM type 2 causing renal disease, not at goal ([facility]) INJECT 20 UNITS SUBCUTANEOUSLY TWICE DAILY 30 mL 2 07/08/2023 Active Digoxin 125 MCG Oral Tablet (Lanoxin)Indicatio ns:Chronic systolic heart failure ([facility]),Coronary artery disease involving [place] coronary artery of [place] heart without angina pectoris Take 1 Tablet by mouth at bedtime. 90 Tablet 3 08/03/2023 Active oxyBUTYnin Chloride 5 MG Oral Tablet (Ditropan) TAKE 1 TABLET 2 TIMES DAILY 180 Tablet 3 09/22/2023 Active Metoprolol Succinate ER 100 MG Oral Tablet Extended Release 24 Hour (toPROL XL)Indications:Chr onic systolic heart failure ([facility]) TAKE 1 AND 1/2 TABLETS BY MOUTH [...] as of this encounter (statuses as of 11/12/2023) Active Problems Problem Noted Date Diagnosed Date [...] Dyslipidemia 02/18/2018 Coronary artery disease invo lving [place] coronary artery of [place] heart without angina pectoris 12/10/2017 PAF (paroxysmal atrial fibrillation) 12/10/2017 Type 2 diabetes mellitus wit h hemoglobin A1c goal of less than 8.0% 09/08/2013 Overview: ICD-10 update of inactive term DJD, CERVICAL SPINE 04/12/2002 GENERAL OSTEOARTHROSIS documented as of this encounter (statuses as of 11/12/2023) Resolved Problems Problem Noted Date Diagnosed Date [...] as of this encounter (statuses as of 11/12/2023) Immunizations Name Administration Dates Next Due COVID-19 mRNA, LNP-s, No Pre serve, 2-Dose Series ([employer]) 07/23/2021,11/14/2020,10/24/2020 COVID-19, MRNA-LNP, 23-24, P F, [...] 11/15/2023 11:30 AM EDT Office [facility] [place] [address] Aurelio Viera PA-C [address] [facility] [place] [address] 12/31/2023 2:40 PM EDT Office Visit [place] [address] [place] [address] Jason West MD [address] [place] [address] 03/08/2024 10:00 AM EDT Cardiac Studies Cardiology, [facility] [address] [facility] [place] [address] [facility] [address] [facility] [place] [address] Scheduled Procedures Name Priority Associated Diagnoses Date/Ti me ESOPHAGOGASTRODUODENOSCOPY ( EGD), FLEXIBLE, TRANSORAL, ENDOSCOPIC ULTRASOUND GE junction carcinoma (HCC) 11/12/2023 1:04 PM EDT Scheduled Referrals Name Type Priority Associated Diagnoses [...] Additional history exists CKD PHOS USE SMARTSET 21752 10/03/2023 03/0 09/2022, 03/17/2021, 08/18/2019, Additional history exists CKD HGB USE SMARTSET 87374 03/08/202403/08, 10/02/2022, 07/29/2021, Additional history exists DIG [...] cardia documented in this encounter Care Teams Intranet Developer Relationship Specialty Start Date End Date Jason West MD [address] [place] [address] PCP - General 02/06/03 documented as of this encounter
--- OUTSIDE RECORDS SUMMARY | 2023-12-21 08:58 | External Medical Summary | Summary of Care ---
Author Name Unknown Organization [facility] Address [address] [place] [address] Phone [phone] Care Team Providers Care Library Circulation Clerk Name Role Phone Jason West MD Primary Care Provider [phone]- [phone] Reason for Visit * Reason Onset Date Comments Other 11/12/2023 Encounter Details Date Type Department Care Team (Late st Contact Info) Description 11/12/2023 Telephone Gastroenterology, [facility] 132 [facility] [place] [address] Whitney Aranda MD 132 [facility] [place] [address] Other Allergies Active Allergy Reactions Criticality Noted Date Comments Hydroxyzine Hcl 05/12/2012 halluzinating Cetirizine & Related 02/11/1999 HALLUCINATIONS documented as of this encounter (statuses as of 11/12/2023) Medications Medication Sig Dispensed Refills Start Date End Date Status MULTIVITAMIN/CLIENT SUCCESS SPECIALIST AL FORMULA TABS OR 1 TABLET DAILY 0 0 12/02/2001 Active SYSTANE PRESERVATIVE FREE 0.4-0.3 % OP SOLNIndications:Ot her anterior corneal dystrophies 1 gtt OU q2h WA 1 box 6 12/03/2008 Active CALCIUM 5289-2367 MG-UNIT PO CHEW Take 1 Tablet by mouth in the morning. 0 Active Cinnamon 500 MG Capsule Take 2 Capsules by mouth in the morning. 0 Active ONETOUCH ULTRASOFT LANCETS MISCIndications:DM type 2 causing renal disease ([facility]) Use as directed daily. Use up to four times a day as directed. Dx E11.9 3 Box Dosing Unit 3 09/13/2018 Active aspirin enteric coated 81 MG TBECIndications:Co ronary artery disease involving nikolski coronary artery of nikolski heart without angina pectoris Take 1 Tab [...] Tablet Sublingual (Nitrostat)Indicat ions:Coronary artery disease involving nikolski coronary artery of nikolski heart without angina pectoris,Old [place] (myocardial infarction) Place 1 Tablet under the tongue every 5 minutes as needed for Pain, Chest. 25 Tablet 5 09/03/2022 Active Apixaban 5 MG Oral Tablet (Eliquis)Indicatio ns:PAF (paroxysmal atrial fibrillation) ([facility]) Take 1 Tablet by mouth in the morning and 1 Tablet before bedtime. 180 Tablet 3 01/01/2023 Active Midodrine HCl 5 MG Oral Tablet (Proamatine)Indica tions:Chronic systolic heart failure (HCC),Coronary artery disease involving nikolski coronary artery of nikolski heart without angina pectoris TAKE 1 TAB BY MOUTH SHORTLY BEFORE OR UPON RISING IN THE MORNING, AT MIDDAY, AND IN THE LATE AFTERNOON (NO LATER THAN 6PM) 270 Tablet 3 03/25/2023 Active Insulin Pen Needle 32G X 5 MMIndications:DM type 2 causing renal disease, not at goal ([facility]) use to inject lantus twice per day 200 Each 3 03/26/2023 Active OneTouch Verio In Vitro Strip (Glucose Blood)Indications: DM type 2 causing renal disease ([facility]) Check blood sugars one time daily. Dx E11.9 300 Strip 2 05/03/2023 Active glipiZIDE 5 MG Oral Tablet (Glucotrol) Take 1 Tablet by mouth in the morning and 1 Tablet before bedtime. 30 minutes before a meal. 180 Tablet 1 05/27/2023 Active Atorvastatin Calcium 40 MG Oral Tablet (Lipitor)Indicatio ns:Coronary artery disease involving nikolski coronary artery of nikolski heart without angina pectoris,Dyslipide mona TAKE 1 TABLET DAILY IN THE MORNING 90 Tablet 3 05/27/2023 Active Insulin Glargine Solostar 100 UNIT/ML Subcutaneous Solution Pen-injector (Lantus SoloStar)Indicatio ns:DM type 2 causing renal disease, 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) INJECT 20 UNITS SUBCUTANEOUSLY TWICE DAILY 30 mL 2 07/08/2023 Active Digoxin 125 MCG Oral Tablet (Lanoxin)Indicatio ns:Chronic systolic heart failure (HCC),Coronary artery disease involving nikolski coronary artery of nikolski heart without angina pectoris Take 1 Tablet [...] Dyslipidemia 02/18/2018 Coronary artery disease invo lving nikolski coronary artery of nikolski heart without angina pectoris 12/10/2017 PAF (paroxysmal [...] mRNA, LNP-s, No Pre serve, 2-Dose Series ([employer]) 07/23/2021,11/14/2020,10/24/2020 COVID-19, MRNA-LNP, 23-24, P F, 30 MCG/0.3 mL, 12 YRS AND ABOVE, IM ([employer]) 05/26/2023 Covid-19, Mrna, Lnp-s, Pf, B ivalent, 30 Mcg, IM, 12 yrs and above ([employer]) 05/26/2022 Diptheria/Tetanus (Adult) 05/02/1992 Pneumococcal Conjugate Vacc, [...] [place]. [place] [address] - skull to mid thigh DX codes [...] 11/15/2023 11:30 AM EDT Office Visit Cardiology, [facility] [address] [place] [address] Aurelio Viera PA-C [address] [place] [address] 12/31/2023 2:40 PM EDT [facility] [address] [facility] [phone] Jason West MD [address] [facility] [place] [address] 03/08/2024 10:00 AM EDT Cardiac Studies Cardiology, [facility] [address] [place] [address] [facility] [address] [place] [address] Scheduled Procedures Name Priority Associated Diagnoses Date/Ti me ESOPHAGOGASTRODUODENOSCOPY ( EGD), FLEXIBLE, TRANSORAL, ENDOSCOPIC ULTRASOUND GE junction carcinoma (HCC) 11/12/2023 1:04 PM EDT Health Maintenance Due Date Last Done Comments Hepatitis C Screening 1963 GFR 09/08/2023 03/08/2023, 03/0 09/2022, 01/13/2022, Additional history exists HbA1c 09/08/2023 03/08/2023, 03/0 09/2022, 01/13/2022, Additional history exists Albumin/Creatinine Ratio 10/03/2023 023, 08/28/2021, 11/18/2020, Additional history exists CKD PHOS USE SMARTSET 18635 10/03/2023 03/0 09/2022, 03/17/2021, 08/18/2019, Additional history exists CKD HGB USE SMARTSET 30799 03/08/202403/08, 10/02/2022, 07/29/2021, Additional history exists DIG [...] filedocumented as of this encounter Care Teams Library Circulation Clerk Relationship Specialty Start Date End Date Jason West MD [address] [place] [address] PCP - General 02/06/03 documented as of this encounter
--- OUTSIDE RECORDS SUMMARY | 2023-12-21 08:58 | External Medical Summary | Summary of Care ---
Author Name Unknown Organization [facility] Address [address] [place] [address] Phone [phone] Care Team Providers Care Radiology Manager Name Role Phone Jason West MD Primary Care Provider [phone]- [phone] Reason for Visit * Reason Onset Date Comments Other 11/12/2023 Encounter Details Date Type Department Care Team (Late st Contact Info) Description 11/12/2023 Telephone Gastroenterology, [facility] 132 [facility] [place] [address] Whitney Aranda MD 132 [facility] [place] [address] Other Allergies Active Allergy Reactions Criticality Noted Date Comments Hydroxyzine Hcl 05/12/2012 halluzinating Cetirizine & Related 02/11/1999 HALLUCINATIONS documented as of this encounter (statuses as of 11/12/2023) Medications Medication Sig Dispensed Refills Start Date End Date Status MULTIVITAMIN/MINE RAL FORMULA TABS OR 1 TABLET DAILY 0 0 05/200 2 Suspended SYSTANE PRESERVATIVE FREE 0.4-0.3 % OP SOLNIndications:O ther anterior corneal dystrophies 1 gtt OU q2h WA 1 box 6 05/04/200 9 Suspended Additional Information CALCIUM 8746-4429 MG-UNIT PO CHEW Take 1 Tablet by mouth in the morning. 0 Suspended Cinnamon 500 MG Capsule Take 2 Capsules by mouth in the morning. 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 Use up to four times a day as directed. Dx E11.9 3 Box Dosing Unit 3 9 Suspended Additional Information aspirin enteric coated 81 MG TBECIndications:C oronary artery disease involving sun'aq coronary artery of sun'aq heart without angina pectoris Take 1 Tab by mouth daily. 30 Tab 11 9 Suspended Additional Information Loratadine 10 MG Oral Capsule Take 1 Capsule by mouth in the morning. 0 Suspended Magnesium 400 MG Capsule Take 1 by mouth daily. 30 Cap 11 0 Suspended acetaminophen (TYLENOL) 325 MG Tablet 2 Tablets. 0 0 Suspended Nitroglycerin 0.4 MG Sublingual Tablet Sublingual (Nitrostat)Indica tions:Coronary artery disease involving sun'aq coronary artery of sun'aq heart without angina pectoris,Old [place] (myocardial infarction) Place 1 Tablet under the tongue every 5 minutes as needed for Pain, Chest. 25 Tablet 5 3 Suspended Additional Information Apixaban 5 MG Oral Tablet (Eliquis)Indicati ons:PAF (paroxysmal atrial fibrillation) ([facility]) Take 1 Tablet by mouth in the morning and 1 Tablet before bedtime. 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 Dx E11.9 300 Strip 2 3 Suspended Additional Information glipiZIDE 5 MG Oral Tablet (Glucotrol) Take 1 Tablet by mouth in the morning and 1 Tablet before bedtime. 30 minutes before a meal. 180 Tablet 1 3 Suspended Additional Information Atorvastatin Calcium 40 MG Oral Tablet (Lipitor)Indicati ons:Coronary artery disease involving sun'aq coronary artery of sun'aq heart without angina pectoris,Dyslipid emia TAKE 1 TABLET DAILY IN THE MORNING 90 Tablet 3 3 Suspended Additional Information Insulin Glargine Solostar 100 UNIT/ML Subcutaneous Solution Pen-injector (Lantus SoloStar)Indicati ons:DM type 2 causing renal disease, 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) INJECT 20 UNITS SUBCUTANEOUSLY TWICE DAILY 30 mL 2 3 Suspended Additional Information Digoxin 125 MCG Oral Tablet (Lanoxin)Indicati ons:Chronic systolic heart failure (HCC),Coronary artery disease involving sun'aq coronary artery of sun'aq heart without angina pectoris Take 1 Tablet by mouth at bedtime. 90 Tablet 3 4 Suspended Additional Information oxyBUTYnin Chloride 5 MG Oral Tablet (Ditropan) TAKE 1 TABLET 2 TIMES DAILY 180 Tablet 3 4 Suspended Additional Information Metoprolol Succinate ER 100 MG Oral Tablet Extended Release 24 Hour (toPROL XL)Indications:Ch ronic systolic heart failure (HCC) TAKE 1 AND 1/2 TABLETS BY MOUTH IN THE MORNING AND 1 TABLET IN THE EVENING 230 Tablet 3 4 Suspended Additional Information Torsemide 10 MG Oral Tablet (Demadex) Take 1 Tablet by mouth in the morning. 0 Suspended Pantoprazole Sodium 40 MG Oral Tablet Delayed Release (Protonix) Take 1 Tablet by mouth 2 times a day. 0 Suspended Advanced Probiotic Oral Capsule Take 1 Capsule by mouth daily. 0 Suspended Amoxicillin 500 MG Oral Capsule (Amoxil) Take 2 Capsules by mouth in the morning and 2 Capsules before bedtime. For 10 days. 0 Suspended Clarithromycin 500 MG Oral Tablet (Biaxin) Take 1 Tablet by mouth in the morning and 1 Tablet before bedtime. For 10 days. 0 Suspended documented as of this encounter (statuses as [...] Dyslipidemia 02/18/2018 Coronary artery disease invo lving sun'aq coronary artery of sun'aq heart without angina pectoris 12/10/2017 PAF (paroxysmal [...] mRNA, LNP-s, No Pre serve, 2-Dose Series ([employer]) 07/23/2021,11/14/2020,10/24/2020 COVID-19, MRNA-LNP, 23-24, P F, 30 MCG/0.3 mL, 12 YRS AND ABOVE, IM ([employer] 05/26/2023 Covid-19, Mrna, Lnp-s, Pf, B ivalent, 30 Mcg, IM, 12 yrs and above ([employer]) 05/26/2022 Diptheria/Tetanus (Adult) 05/02/1992 Pneumococcal Conjugate Vacc, [...] be [place]. [place] [address] - skull to mid thigh DX codes [...] 11/15/2023 11:30 AM EDT Office Visit Cardiology, [facility] [address] [facility] [place] [address] Aurelio Viera PA-C [address] [facility] [place] [address] 12/31/2023 2:40 PM EDT Office Visit [facility] [address] [facility] [id number] Jason West [facility] [address] [facility] [address] 03/08/2024 10:00 AM EDT Cardiac Studies Cardiology, [facility] [address] [facility] [place] [address] [address] [place] [address] Scheduled Procedures Name Priority Associated Diagnoses Date/Ti [...] Additional history exists CKD PHOS USE SMARTSET 24881 10/03/20230 09/2022, 03/17/2021, 08/18/2019, Additional history exists CKD HGB USE SMARTSET 12143 03/08/202403/08, 10/02/2022, 07/29/2021, Additional history exists DIG [...] filedocumented as of this encounter Care Teams Radiology Manager Relationship Specialty Start Date End Date Jason West MD [address] [place] [address] PCP - General 02/06/03 documented as of this encounter
--- OUTSIDE RECORDS SUMMARY | 2023-12-21 08:58 | External Medical Summary | Summary of Care ---
Author Name Unknown Organization [facility] Address [address] [place] [address] Phone [phone] Care Team Providers Care Floor Scrubber Name Role Phone Jason West MD Primary Care Provider [phone]- [phone] Reason for Referral * Precert (Within 10 days (routine)) - Pending Review Specialty Diagnoses / Procedures Referred By Abdullahi melo Referred To Contact Radiology Diagnoses Malignant neoplasm of lower third of esophagus (HCC) Procedures PET CT SKULL BASE TO MID-THIGH FDG Whitney Mckenzie MD [address] [place] [address] Referral ID Status Reason Start Date Expiration Date V isits Requested Visits Authorized [id number] Pending Review 11/19/2023 999 [id number] Reason for Visit * Reason Onset Date Comments Other 11/12/2023 Encounter Details Date Type Department Care Team (Late st Contact Info) Description 11/12/2023 Telephone Gastroenterology, [facility] [address] [place] [address] Whitney Mckenzie MD [address] [place] [address] Other Allergies Active Allergy Reactions Criticality Noted Date Comments Hydroxyzine Hcl 05/12/2012 halluzinating Cetirizine & Related 02/11/1999 HALLUCINATIONS documented as of this encounter (statuses as of 11/12/2023) Medications Medication Sig Dispensed Refills Start Date End Date Status MULTIVITAMIN/ASBESTOS BRAKE LINING FINISHER HELPER AL FORMULA TABS OR 1 TABLET DAILY 0 0 12/02/2001 Active SYSTANE PRESERVATIVE FREE 0.4-0.3 % OP SOLNIndications:Ot her anterior corneal dystrophies 1 gtt OU q2h WA 1 box 6 12/03/2008 Active CALCIUM 8317-1522 MG-UNIT PO CHEW Take 1 Tablet by mouth in the morning. 0 Active Cinnamon 500 MG Capsule Take 2 Capsules by mouth in the morning. 0 Active ONETOUCH ULTRASOFT LANCETS MISCIndications:DM type 2 causing renal disease ([facility]) Use as directed daily. Use up to four times a day as directed. Dx E11.9 3 Box Dosing Unit 3 09/13/2018 Active aspirin enteric coated 81 MG TBECIndications:Co ronary artery disease involving twenty-nine palms coronary artery of twenty-nine palms heart without angina pectoris Take 1 Tab [...] Tablet Sublingual (Nitrostat)Indicat ions:Coronary artery disease involving twenty-nine palms coronary artery of twenty-nine palms heart without angina pectoris,Old [place] (myocardial infarction) Place 1 Tablet under the tongue every 5 minutes as needed for Pain, Chest. 25 Tablet 5 09/03/2022 Active Apixaban 5 MG Oral Tablet (Eliquis)Indicatio ns:PAF (paroxysmal atrial fibrillation) ([facility]) Take 1 Tablet by mouth in the morning and 1 Tablet before bedtime. 180 Tablet 3 01/01/2023 Active Midodrine HCl 5 MG Oral Tablet (Proamatine)Indica tions:Chronic systolic heart failure (HCC),Coronary artery disease involving twenty-nine palms coronary artery of twenty-nine palms heart without angina pectoris TAKE 1 TAB BY MOUTH SHORTLY BEFORE OR UPON RISING IN THE MORNING, AT MIDDAY, AND IN THE LATE AFTERNOON (NO LATER THAN 6PM) 270 Tablet 3 03/25/2023 Active Insulin Pen Needle 32G X 5 MMIndications:DM type 2 causing renal disease, not at goal ([facility]) use to inject lantus twice per day 200 Each 3 03/26/2023 Active OneTouch Verio In Vitro Strip (Glucose Blood)Indications: DM type 2 causing renal disease ([facility]) Check blood sugars one time daily. Dx E11.9 300 Strip 2 05/03/2023 Active glipiZIDE 5 MG Oral Tablet (Glucotrol) Take 1 Tablet by mouth in the morning and 1 Tablet before bedtime. 30 minutes before a meal. 180 Tablet 1 05/27/2023 Active Atorvastatin Calcium 40 MG Oral Tablet (Lipitor)Indicatio ns:Coronary artery disease involving twenty-nine palms coronary artery of twenty-nine palms heart without angina pectoris,Dyslipide mona TAKE 1 TABLET DAILY IN THE MORNING 90 Tablet 3 05/27/2023 Active Insulin Glargine Solostar 100 UNIT/ML Subcutaneous Solution Pen-injector (Lantus SoloStar)Indicatio ns:DM type 2 causing renal disease, not at goal ([facility]) INJECT 20 UNITS SUBCUTANEOUSLY TWICE DAILY 30 mL 2 07/08/2023 Active Digoxin 125 MCG Oral Tablet (Lanoxin)Indicatio ns:Chronic systolic heart failure (HCC),Coronary artery disease involving twenty-nine palms coronary artery of twenty-nine palms heart without angina pectoris Take 1 Tablet [...] single episode, in full remission 12/07/2018 Old [place] (myocardial infarction) 03/31/2018 Heart failure, systolic, due to CAD 03/31/2018 Lymphedema of both lower extremities 03/31/2018 Dyslipidemia 02/18/2018 Coronary artery disease invo lving twenty-nine palms coronary artery of twenty-nine palms heart without angina pectoris 12/10/2017 PAF (paroxysmal [...] mRNA, LNP-s, No Pre serve, 2-Dose Series ([employer]) 07/23/2021,11/14/2020,10/24/2020 COVID-19, MRNA-LNP, 23-24, P F, 30 MCG/0.3 mL, 12 YRS AND ABOVE, IM ([employer]) 05/26/2023 Covid-19, Mrna, Lnp-s, Pf, B ivalent, [...] as of this encounter Miscellaneous Notes * Addendum Note - Whitney Mckenzie MD [...] [place]. [place] [address] - skull to mid thigh DX codes [...] 11/15/2023 11:30 AM EDT [facility] [place] [address] Aurelio Viera PAJuanyC [facility] [place] [address] 12/31/2023 2:40 PM EDT Office Visit [facility] [address] [facility] [place] [phone] Jason West MD [address] [facility], [place] [address] 03/08/2024 10:00 AM EDT Cardiac Studies Cardiology, [facility] [address] [place] [address] [facility] [place] [address] Scheduled Orders Name Type Priority Associated Diagnoses Orde r Schedule PET CT SKULL BASE TO MID-THIGH FDG Medical Imaging Routine Malignant neoplasm of lower third of esophagus (HCC) Expected: 11/19/2023, Expires: 12/11/2024 Scheduled Procedures Name Priority Associated Diagnoses Date/Ti [...] Additional history exists CKD PHOS USE SMARTSET 34834 10/03/2023 03/0 09/2022, 03/17/2021, 08/18/2019, Additional history exists CKD HGB USE SMARTSET 16951 03/08/202403/08, 10/02/2022, 07/29/2021, Additional history exists DIG [...] esophagus documented in this encounter Care Teams Floor Scrubber Relationship Specialty Start Date End Date Jason West MD [address] [place] [address] PCP - General 02/06/03 documented as of this encounter
--- OUTSIDE RECORDS SUMMARY | 2023-12-21 08:59 | External Medical Summary | Summary of Care ---
Author Name Unknown Organization [facility] Address [address] [place] [address] Phone [phone] Care Team Providers Care Coating Machine Feeder Name Role Phone Jason West MD Primary Care Provider [phone]- [phone] Reason for Visit * Reason Onset Date Comments Other 11/12/2023 Encounter Details Date Type Department Care Team (Late st Contact Info) Description 11/12/2023 Telephone Gastroenterology, [facility] [address] [facility] [place] [address] Whitney Aranda MD [address] [facility] [place] [address] Other Allergies Active Allergy Reactions Criticality Noted [...] 6 05/04/200 9 Suspended Additional Information CALCIUM 6605-7280 MG-UNIT PO CHEW Take 1 Tablet by mouth in the morning. 0 Suspended Cinnamon 500 MG Capsule Take 2 Capsules by mouth in the morning. 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 Use up to four times a day as directed. Dx E11.9 3 Box Dosing Unit 3 9 Suspended Additional Information aspirin enteric coated 81 MG TBECIndications:C oronary artery disease involving [place] coronary artery of [place] heart without angina pectoris Take 1 Tab [...] Tablet Sublingual (Nitrostat)Indica tions:Coronary artery disease involving [place] coronary artery of [place] heart without angina pectoris,Old [place] (myocardial infarction) Place 1 Tablet under the tongue every 5 minutes as needed for Pain, Chest. 25 Tablet 5 3 Suspended Additional Information Apixaban 5 MG Oral Tablet (Eliquis)Indicati ons:PAF (paroxysmal atrial fibrillation) ([facility]) Take 1 Tablet by mouth in the morning and 1 Tablet before bedtime. 180 Tablet 3 3 Suspended Additional Information Midodrine HCl 5 MG Oral Tablet (Proamatine)Indic ations:Chronic systolic heart failure (HCC),Coronary artery disease involving [place] coronary artery of [place] heart without angina pectoris TAKE 1 TAB BY MOUTH SHORTLY BEFORE OR UPON RISING IN THE MORNING, AT MIDDAY, AND IN THE LATE AFTERNOON (NO LATER THAN 6PM) 270 Tablet 3 3 Suspended Additional Information Insulin Pen Needle 32G X 5 MMIndications:DM type 2 causing renal disease, not at goal ([facility]) use to inject lantus twice per day 200 Each 3 3 Suspended Additional Information OneTouch Verio In Vitro Strip (Glucose Blood)Indications :DM type 2 causing renal disease ([facility]) Check blood sugars one time daily. Dx E11.9 300 Strip 2 3 Suspended Additional Information glipiZIDE 5 MG Oral Tablet (Glucotrol) Take 1 Tablet by mouth in the morning and 1 Tablet before bedtime. 30 minutes before a meal. 180 Tablet 1 3 Suspended Additional Information Atorvastatin Calcium 40 MG Oral Tablet (Lipitor)Indicati ons:Coronary artery disease involving [place] coronary artery of [place] heart without angina pectoris,Dyslipid emia TAKE 1 [...] systolic heart failure (HCC),Coronary artery disease involving [place] coronary artery of [place] heart without angina pectoris Take 1 Tablet [...] Dyslipidemia 02/18/2018 Coronary artery disease invo lving [place] coronary artery of [place] heart without angina pectoris 12/10/2017 PAF (paroxysmal [...] 06/07/2009 Overview: Per HTN Taxonomy Respiratory abnormality 11/26/1999/09/2012 Overview: ICD-10 update of inactive term Allergic [...] mRNA, LNP-s, No Pre serve, 2-Dose Series ([employer]) 07/23/2021,11/14/2020,10/24/2020 COVID-19, MRNA-LNP, 23-24, P F, 30 MCG/0.3 mL, 12 YRS AND ABOVE, IM ([employer]) 05/26/2023 Covid-19, Mrna, Lnp-s, Pf, B ivalent, [...] [place] [address] - skull to mid thigh DX codes [...] 11/15/2023 11:30 AM EDT Office Visit Cardiology, [facility] [address] [place] [address] Aurelio Viera PAJuanyC [address] [place] [address] 12/31/2023 2:40 PM EDT Office Visit [facility] [address] [place] [facility] [place] [address] Jason West MD [address] [place] [address] 03/08/2024 10:00 AM EDT Cardiac Studies Cardiology, [facility] [place] [address] [facility] [address] [place] [address] Scheduled Procedures Name Priority Associated Diagnoses Date/Ti [...] Additional history exists CKD PHOS USE SMARTSET 49858 10/03/2023 03/0 09/2022, 03/17/2021, 08/18/2019, Additional history exists CKD HGB USE SMARTSET 29414 03/08/202403/08, 10/02/2022, 07/29/2021, Additional history exists DIG [...] filedocumented as of this encounter Care Teams Coating Machine Feeder Relationship Specialty Start Date End Date Jason West MD [address] [place] [address] PCP - General 02/06/03 documented as of this encounter
--- OUTSIDE RECORDS SUMMARY | 2023-12-21 08:59 | External Medical Summary | Summary of Care ---
Author Name Unknown Organization [facility] Address [address] [place] [address] Phone [phone] Care Team Providers Care Helper Coordinator Name Role Phone Jason Sanchez MD Primary Care Provider [phone]- [phone] Reason for Visit * Reason Onset Date Comments Advice 11/08/2023 Test Results 11/08/2023 Encounter Details Date Type Department Care Team (Late st Contact Info) Description 11/08/2023 Telephone [facility] [address] [place] [address] Jason Sanchez MD [address] [place] [address] Advice; Test Results Allergies Active Allergy Reactions Criticality Noted Date Comments Hydroxyzine Hcl 05/12/2012 halluzinating Cetirizine & Related 02/11/1999 HALLUCINATIONS documented as of this encounter (statuses as of 11/10/2023) Medications Medication Sig Dispensed Refills Start Date End Date Status MULTIVITAMIN/CABLE TELEVISION TECHNICIAN AL FORMULA TABS OR 1 TABLET DAILY 0 0 12/02/2001 Active SYSTANE PRESERVATIVE FREE 0.4-0.3 % OP SOLNIndications:Ot her anterior corneal dystrophies 1 gtt OU q2h WA 1 box 6 12/03/2008 Active CALCIUM 7208-5185 MG-UNIT PO CHEW Take 1 Tablet by [...] artery of chilkat heart without angina pectoris,Old [place] (myocardial infarction) [...] as of this encounter (statuses as of 11/10/2023) Active Problems Problem Noted Date Diagnosed Date [...] as of this encounter (statuses as of 11/10/2023) Resolved Problems Problem Noted Date Diagnosed Date [...] Overview: Per HTN Taxonomy Respiratory abnormality 11/26/1999 12/09/2012 Overview: ICD-10 update of inactive term Allergic rhinitis 11/26/1999 03/31/2018 Myalgia and myositis 10/09/1999 013 ELECTROLYT-FLUID DIS NEC 02/11/199904/2011 HTN, goal below 140/90 08/28 Overview: Per HTN Taxonomy. OBESITY, UNSPECIFIED 010 Overview: Per Obesity Taxonomy Menopause 07/03/2013 Family history of other card iovascular diseases 08/10/2010 Overview: ICD-10 update of inactive term FAM HX-DIABETES MELLITUS 04/2011 documented as of this encounter (statuses as of 11/10/2023) Immunizations Name Administration Dates Next Due COVID-19 mRNA, LNP-s, No Pre serve, 2-Dose Series ([employer]) 07/23/2021,11/14/2020,10/24/2020 COVID-19, MRNA-LNP, 23-24, P F, 30 MCG/0.3 mL, 12 YRS AND ABOVE, IM ([employer]) 05/26/2023 Covid-19, Mrna, Lnp-s, Pf, B ivalent, 30 Mcg, IM, 12 yrs and above ([employer]) 05/26/2022 Diptheria/Tetanus (Adult) 05/02/1992 Pneumococcal Conjugate Vacc, [...] encounter Miscellaneous Notes * Telephone Encounter - Colette Ken LPN - 11/10/2023 12:31 PM EDT Lakeisha aranaLEO calling about TB results. I did inform her of Dr sanchez's message. Pt had a spuoid CT on 10/24 at [facility]. She is inquiring once sputum results return if she can be notified. MTB potive they can prove treatment. Phone LEO- [phone] * Telephone Encounter - Sosa Rosenberg LPN - 11/09/2023 2:20 PM EDT I identified pt by name and , verified by patient. Pt has been informed of below message and verbalized understanding. * Telephone Encounter - Jason Sanchez MD - 11/09/2023 2:08 PM EDT Sorry to make things confusing but please inform the patient that she has not been proven to have TB yet. Her sputum from the hospital has grown acid fast bacilli. There are different types of acid fast bacilli. There are forms that cause tuberculosis and forms that do not cause tuberculosis. We do not yet know which form she has. The hospital has sent the sputum out for further analysis at an outside lab and it may take days to a few weeks to know the answer. If she has a form that is not tuberculosis, she may not need anything else done. If she does have tuberculosis, she has no evidence for it being active by her symptoms or recent imaging. So, we have to wait for further details but it is fine for her sister to visit. She is not under any type of isolation at this time. * Telephone Encounter - Lissa Powell LPN - 11/09/2023 10:14 AM EDT I called and spoke with patient and informed her that we did receive the results from [facility] she does have TB but per Dr. Kelley we would need to know if it is active or not and she should reach out to [facility] and vero stated they informed her to ask us. Patient needs to know if sister can come as the sister watches a child when she goes home and she does not want to get the child sick. * Telephone Encounter - Hema Friend OSA - 11/09/2023 9:02 AM EDT Patient calling in regarding messages below. She stated that she was advised by Dr. Ken at [facility] that she has tuberculosis. She also stated that her sister is flying in tomorrow and she needs to be able to confirm her diagnosis so that her sister cancel her flight today. Please advise. * Telephone Encounter - Jason Sanchez MD - 11/08/2023 4:43 PM EDT I will need more information than this. Why does she think that she has tuberculosis? If this is based on a call from [facility], can we look in her hospital chart? Please look under microbiology for any cultures or tissue samples. * Telephone Encounter - Jinny Norris OSA - 11/08/2023 1:16 PM EDT Patient advising that she believes she has tuberculosis * Telephone Encounter - Delmy Estes OSA - 11/08/2023 8:10 AM EDT Reason for patient's call: [facility] told pt to call first thing this morning about test results. Stated that they are urgent documented in this encounter Plan of Treatment Upcoming Encounters Date Type Department Care Team (Latest Contact Info) Description 11/12/2023 1:00 PM EDT Hospital Encounter ENDO OSSC, Endoscopy Room [facility] [address] [place] [phone] Fer Solano MD [address] [place] [address] 11/12/2023 1:00 PM EDT - 11/12/2023 2:00 PM EDT Surgery ENDO O[facility], Endoscopy Room [facility] [address] [place] [phone] Fer Solano MD [address] [place] [address] ESOPHAGOGASTRODUODENOSCOPY (EGD), FLEXIBLE, TRANSORAL, ENDOSCOPIC ULTRASOUND 11/15/2023 11:30 AM EDT Office Visit Cardiology, [facility] [address] [place] [address] Aurelio Viera PA-C [address] [place] [address] 12/31/2023 2:40 PM EDT [facility] [address] [facility] [phone] Jason Sanchez MD [address] [place] [address] 03/08/2024 10:00 AM EDT Cardiac Studies Cardiology, [facility] [address] [place] [address] [facility] [address] [place] [address] Scheduled Procedures Name Priority Associated Diagnoses Date/Ti me ESOPHAGOGASTRODUODENOSCOPY ( EGD), FLEXIBLE, TRANSORAL, ENDOSCOPIC ULTRASOUND GE junction carcinoma (HCC) 11/12/2023 1:00 PM EDT Health Maintenance Due Date Last Done Comments Hepatitis C Screening 1963 GFR 09/08/2023 03/08/2023, 03/0 09/2022, 01/13/2022, Additional history exists HbA1c 09/08/2023 03/08/2023, 03/0 09/2022, 01/13/2022, Additional history exists Albumin/Creatinine Ratio 10/03/2023 023, 08/28/2021, 11/18/2020, Additional history exists CKD PHOS USE SMARTSET 00112 10/03/2023 03/0 09/2022, 03/17/2021, 08/18/2019, Additional history exists CKD HGB USE SMARTSET 47861 03/08/202403/08, 10/02/2022, 07/29/2021, Additional history exists DIG [...] filedocumented as of this encounter Care Teams Helper Coordinator Relationship Specialty Start Date End Date Jason Sanchez MD [address] [place] [address] PCP - General 02/06/03 documented as of this encounter
--- OUTSIDE RECORDS SUMMARY | 2023-12-21 08:59 | External Medical Summary | Summary of Care ---
Author Name Unknown Organization [facility] Address [address] [place] [address] Phone [phone] Care Team Providers Care Top Former Name Role Phone Jason West MD Primary Care Provider +1- [phone] Reason for Visit * Reason Onset Date Comments Advice 11/08/2023 Test Results 11/08/2023 Encounter Details Date Type Department Care Team (Late st Contact Info) Description 11/08/2023 Telephone [facility] [address] [place] [address] Jason West MD [address] [place] [address] Advice; Test Results Allergies Active Allergy Reactions Criticality Noted Date Comments Hydroxyzine Hcl 05/12/2012 halluzinating Cetirizine & Related 02/11/1999 HALLUCINATIONS documented as of this encounter (statuses as of 11/11/2023) Medications Medication Sig Dispensed Refills Start Date End Date Status MULTIVITAMIN/SOLID WASTE LANDFILL TECHNICIAN AL FORMULA TABS OR 1 TABLET DAILY 0 0 12/02/2001 Active SYSTANE PRESERVATIVE FREE 0.4-0.3 % OP SOLNIndications:Ot her anterior corneal dystrophies 1 gtt OU q2h WA 1 box 6 12/03/2008 Active CALCIUM 1945-7136 MG-UNIT PO CHEW Take 1 Tablet by [...] 81 MG TBECIndications:Co ronary artery disease involving [place]da coronary artery of mechoopda heart without angina pectoris Take 1 Tab [...] Tablet Sublingual (Nitrostat)Indicat ions:Coronary artery disease involving [place] coronary artery of [place] heart without angina pectoris,Old [place] (myocardial infarction) [...] systolic heart failure (HCC),Coronary artery disease involving [place] coronary artery of [place]cho[place]da heart without angina pectoris TAKE 1 TAB [...] Oral Tablet (Lipitor)Indicatio ns:Coronary artery disease involving [place]cho[place]da coronary artery of mechoopda heart without angina pectoris,Dyslipide mona TAKE 1 TABLET DAILY IN THE MORNING 90 Tablet 3 05/27/2023 Active Insulin Glargine Solostar 100 UNIT/ML Subcutaneous Solution Pen-injector (Lantus SoloStar)Indicatio ns:DM type 2 causing renal disease, 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) INJECT 20 UNITS SUBCUTANEOUSLY TWICE DAILY 30 mL 2 07/08/2023 Active Digoxin 125 MCG Oral Tablet (Lanoxin)Indicatio ns:Chronic systolic heart failure (HCC),Coronary artery disease involving mechoopda coronary artery of mechoopda heart without angina pectoris Take 1 Tablet [...] as of this encounter (statuses as of 11/11/2023) Active Problems Problem Noted Date Diagnosed Date [...] Dyslipidemia 02/18/2018 Coronary artery disease invo lving mechoopda coronary artery of mechoopda heart without angina pectoris 12/10/2017 PAF (paroxysmal atrial fibrillation) 12/10/2017 Type 2 diabetes mellitus wit h hemoglobin A1c goal of less than 8.0% 09/08/2013 Overview: ICD-10 update of inactive term DJD, CERVICAL SPINE 04/12/2002 GENERAL OSTEOARTHROSIS documented as of this encounter (statuses as of 11/11/2023) Resolved Problems Problem Noted Date Diagnosed Date [...] as of this encounter (statuses as of 11/11/2023) Immunizations Name Administration Dates Next Due COVID-19 mRNA, LNP-s, No Pre serve, 2-Dose Series ([employer]™) 07/23/2021,11/14/2020,10/24/2020 COVID-19, MRNA-LNP, 23-24, P F, 30 MCG/0.3 mL, 12 YRS AND ABOVE, IM ([facility]) 05/26/2023 Covid-19, Mrna, Lnp-s, Pf, B ivalent, 30 Mcg, IM, 12 yrs and above ([employer]™) 05/26/2022 Diptheria/Tetanus (Adult) 05/02/1992 Pneumococcal Conjugate Vacc, [...] Telephone Encounter - Jason West MD - 11/11/2023 8:17 AM EDT Yes - we will call [facility] once results are known. Will need to check [facility] system regularly for results. * Telephone Encounter - Colette Ken LPN - 11/10/2023 12:31 PM EDT Laekisha from [facility] calling about TB results. I did inform her of Dr West's message. Pt had a suspicious CT on 10/24 at [facility]. She is inquiring once sputum results return if she can be notified if the M-TB results are positiveor not. If they are positive, the [facility] will treat the pt. Phone [facility]- [phone] * Telephone Encounter - Sosa Rosenberg LPN - 11/09/2023 2:20 PM EDT I identified pt by name and , verified by patient. Pt has been informed of below message and verbalized understanding. * Telephone Encounter - Jason West MD - 11/09/2023 2:08 PM EDT Sorry [...] that we did receive the results from [facility] she does have TB but per Dr. Kelley we would need to know if it is active or not and she should reach out to [facility] and tadeojo stated they informed her to ask us. Patient needs to know if sister can come as the sister watches a child when she goes home and she does not want to get the child sick. * Telephone Encounter - Hema Friend OSA - 11/09/2023 9:02 AM EDT Patient calling in regarding messages below. She stated that she was advised by Dr. Ken at [facility] that she has tuberculosis. She also stated that her sister is flying in tomorrow and she needs to be able to confirm her diagnosis so that her sister cancel her flight today. Please advise. * Telephone Encounter - Jason West MD - 11/08/2023 4:43 PM EDT I will need more information than this. Why does she think that she has tuberculosis? If this is based on a call from [facility], can we look in her hospital chart? Please look under microbiology for any cultures or tissue samples. * Telephone Encounter - Jinny Norris OSA - 11/08/2023 1:16 PM EDT Patient advising that she believes she has tuberculosis * Telephone Encounter - Delmy Estes OSA - 11/08/2023 8:10 AM EDT Reason for patient's call: markel woodson told pt to call first thing this morning about test results. Stated that they are urgent documented in this encounter Plan of Treatment Upcoming Encounters Date Type Department Care Team (Latest Contact Info) Description 11/12/2023 1:00 PM EDT Hospital Encounter ENDO OSSC, Endoscopy Room [facility] [address] [place] [phone] Fer Solano MD [address] [place] [address] 11/12/2023 1:00 PM EDT - 11/12/2023 2:00 PM EDT Surgery ENDO OSSC, Endoscopy Room [facility] [address] [place] [phone] Fer Solano MD [address] [place] [address] ESOPHAGOGASTRODUODENOSCOPY (EGD), FLEXIBLE, TRANSORAL, ENDOSCOPIC ULTRASOUND 11/15/2023 11:30 AM EDT Office Visit Cardiology, [facility] [address] [place] [address] Aurelio Viera PASaud [address] [place] [address] 12/31/2023 2:40 PM EDT Office Visit [facility] [address] [facility], [place] [phone] Jason West MD [address] [facility] [place] [address] 03/08/2024 10:00 AM EDT Cardiac Studies Cardiology, [facility] [address] [place] [address] Delmar [facility] [address] [place] [address] Scheduled Procedures Name Priority Associated Diagnoses Date/Ti [...] Additional history exists CKD PHOS USE SMARTSET 34222 10/03/2023 03/0 09/2022, 03/17/2021, 08/18/2019, Additional history exists CKD HGB USE SMARTSET 45463 03/08/202403/08, 10/02/2022, 07/29/2021, Additional history exists DIG [...] filedocumented as of this encounter Care Teams Top Former Relationship Specialty Start Date End Date Jason West MD [address] [place] [address] PCP - General 02/06/03 documented as of this encounter
--- OUTSIDE RECORDS SUMMARY | 2023-12-21 08:59 | External Medical Summary | Summary of Care ---
Author Name Unknown Organization [facility] Address [address] [place] [address] Phone [phone] Care Team Providers Care Guest Service Team Leader Name Role Phone Jason West MD Primary Care Provider [phone]- [phone] Reason for Visit * Reason Onset Date Comments Advice 11/08/2023 Test Results 11/08/2023 Encounter Details Date Type Department Care Team (Late st Contact Info) Description 11/08/2023 Telephone [facility] [address] [place] [address] Jason West MD [address] [place] [address] Advice; Test Results Allergies Active Allergy Reactions Criticality Noted Date Comments Hydroxyzine Hcl 05/12/2012 halluzinating Cetirizine & Related 02/11/1999 HALLUCINATIONS documented as of this encounter (statuses as of 11/09/2023) Medications Medication Sig Dispensed Refills Start Date End Date Status MULTIVITAMIN/COCONUT BOILER AL FORMULA TABS OR 1 TABLET DAILY 0 0 12/02/2001 Active SYSTANE PRESERVATIVE FREE 0.4-0.3 % OP SOLNIndications:Ot her anterior corneal dystrophies 1 gtt OU q2h WA 1 box 6 12/03/2008 Active CALCIUM 7648-1332 MG-UNIT PO CHEW Take 1 Tablet by mouth in the morning. 0 Active Cinnamon 500 MG Capsule Take 2 Capsules by mouth in the morning. 0 Active ONETOUCH ULTRASOFT LANCETS MISCIndications:DM type 2 causing renal disease ([facility]) Use as directed daily. Use up to four times a day as directed. Dx E11.9 3 Box Dosing Unit 3 09/13/2018 Active aspirin enteric coated 81 MG TBECIndications:Co ronary artery disease involving [place] ira coronary artery of [place] heart without angina pectoris Take 1 [...] Tablet Sublingual (Nitrostat)Indicat ions:Coronary artery disease involving [place] ira coronary artery of [place] heart without angina pectoris,[place] (myocardial infarction) Place 1 Tablet under the tongue every 5 minutes as needed for Pain, Chest. 25 Tablet 5 09/03/2022 Active Apixaban 5 MG Oral Tablet (Eliquis)Indicatio ns:PAF (paroxysmal atrial fibrillation) ([facility]) Take 1 Tablet by mouth in the morning and 1 Tablet before bedtime. 180 Tablet 3 01/01/2023 Active Midodrine HCl 5 MG Oral Tablet (Proamatine)Indica tions:Chronic systolic heart failure (HCC),Coronary artery disease involving [place] ira coronary artery of [place] ir[place] heart without angina pectoris TAKE 1 TAB BY MOUTH SHORTLY BEFORE OR UPON RISING IN THE MORNING, AT MIDDAY, AND IN THE LATE AFTERNOON (NO LATER THAN 6PM) 270 Tablet 3 03/25/2023 Active Insulin Pen Needle 32G X 5 MMIndications:DM type 2 causing renal disease, not at goal ([facility]) use to inject lantus twice per day 200 Each 3 03/26/2023 Active OneTouch Verio In Vitro Strip (Glucose Blood)Indications: DM type 2 causing renal disease ([facility]) Check blood sugars one time daily. Dx E11.9 300 Strip 2 05/03/2023 Active glipiZIDE 5 MG Oral Tablet (Glucotrol) Take 1 Tablet by mouth in the morning and 1 Tablet before bedtime. 30 minutes before a meal. 180 Tablet 1 05/27/2023 Active Atorvastatin Calcium 40 MG Oral Tablet (Lipitor)Indicatio ns:Coronary artery disease involving sh[place] ira coronary artery of [place] ir[place] heart without angina pectoris,Dyslipide mona TAKE 1 TABLET DAILY IN THE MORNING 90 Tablet 3 05/27/2023 Active Insulin Glargine Solostar 100 UNIT/ML Subcutaneous Solution Pen-injector (Lantus SoloStar)Indicatio ns:DM type 2 causing renal disease, 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) INJECT 20 UNITS SUBCUTANEOUSLY TWICE DAILY 30 mL 2 07/08/2023 Active Digoxin 125 MCG Oral Tablet (Lanoxin)Indicatio ns:Chronic systolic heart failure (HCC),Coronary artery disease involving sh[place] ira coronary artery of [place] ir[place] heart without angina pectoris Take 1 [...] as of this encounter (statuses as of 11/09/2023) Active Problems Problem Noted Date Diagnosed Date Chronic kidney disease, stage 3a 01/14/2021 Overview: Per CKD protocol Type 2 diabetes mellitus wit h stage 3a chronic kidney disease 12/10/2020 Overview: Per CKD protocol Chronic systolic heart failure 11/21/2020 DM type 2 causing renal disease, 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, in full remission 12/07/2018 [place] (myocardial infarction) 03/31/2018 Heart failure, systolic, due to CAD 03/31/2018 Lymphedema of both lower extremities 03/31/2018 Dyslipidemia 02/18/2018 Coronary artery disease invo lving shishmaref ira coronary artery of [place] ir[place] heart without angina pectoris 12/10/2017 PAF (paroxysmal atrial fibrillation) 12/10/2017 Type 2 diabetes mellitus wit h hemoglobin A1c goal of less than 8.0% 09/08/2013 Overview: ICD-10 update of inactive term DJD, CERVICAL SPINE 04/12/2002 GENERAL OSTEOARTHROSIS documented as of this encounter (statuses as of 11/09/2023) Resolved Problems Problem Noted Date Diagnosed Date [...] as of this encounter (statuses as of 11/09/2023) Immunizations Name Administration Dates Next Due COVID-19 mRNA, LNP-s, No Pre serve, 2-Dose Series ([employer]) 07/23/2021,11/14/2020,10/24/2020 COVID-19, MRNA-LNP, 23-24, P F, 30 MCG/0.3 mL, 12 YRS AND ABOVE, IM ([employer] [facility]) 05/26/2023 Covid-19, Mrna, Lnp-s, Pf, B ivalent, 30 Mcg, IM, 12 yrs and above ([employer]) 05/26/2022 Pneumococcal Conjugate Vacc, 13 Valent (Prevnar) [...] encounter Miscellaneous Notes * Telephone Encounter - Sosa Rosenberg LPN [...] that we did receive the results from [facility] she does have TB but per Dr. Kelley we would need to know if it is active or not and she should reach out to [facility] and vero stated they informed her to [...] she was advised by Dr. Ken at [facility] that she has tuberculosis. She also stated [...] this is based on a call from [facility], can we look in her hospital chart? [...] EDT Hospital Encounter ENDO OSSC, Endoscopy Room [facility] [address] [place] [phone] Fer Solano MD [address] [place] [address] 11/12/2023 1:00 PM EDT - 11/12/2023 2:00 PM EDT Surgery ENDO OSSC, Endoscopy Room [facility] [address] [place] [phone] Fer Solano MD [address] [place] [address] ESOPHAGOGASTRODUODENOSCOPY (EGD), FLEXIBLE, TRANSORAL, ENDOSCOPIC ULTRASOUND 11/15/2023 11:30 AM EDT Office [facility] [place] [address] Aurelio Viera PA-C [address] [facility] [place] [address] 12/31/2023 2:40 PM EDT Office Visit [facility] [address] [facility], [place] [phone] Jason West MD [address] [facility] [place] [address] 03/08/2024 10:00 AM EDT Cardiac Studies Cardiology, [facility] [address] [facility] [place] [address] Delmar Palacios [facility] [address] [facility] [place] [address] Scheduled Procedures Name Priority Associated Diagnoses Date/Ti [...] Additional history exists CKD PHOS USE SMARTSET 51452 10/03/2023 03/0 09/2022, 03/17/2021, 08/18/2019, Additional history exists CKD HGB USE SMARTSET 70572 03/08/202403/08, 10/02/2022, 07/29/2021, Additional history exists DIG [...] filedocumented as of this encounter Care Teams Guest Service Team Leader Relationship Specialty Start Date End Date Jason West MD [address] [place] [address] PCP - General 02/06/03 documented as of this encounter
--- OUTSIDE RECORDS SUMMARY | 2023-12-21 08:59 | External Medical Summary | Summary of Care ---
Author Name Unknown Organization [facility] Address [address] [place] [address] Phone [phone] Care Team Providers Care Power Generation Technician Name Role Phone Jason West MD Primary Care Provider [phone]- [phone] Reason for Visit * Reason Onset Date Comments Advice 11/08/2023 Test Results 11/08/2023 Encounter Details Date Type Department Care Team (Late st Contact Info) Description 11/08/2023 Telephone [facility] [address] [place] [address] Jason West MD [address] [place] [address] Advice; Test Results Allergies Active Allergy Reactions Criticality Noted Date Comments Hydroxyzine Hcl 05/12/2012 halluzinating Cetirizine & Related 02/11/1999 HALLUCINATIONS documented as of this encounter (statuses as of 11/10/2023) Medications Medication Sig Dispensed Refills Start Date End Date Status MULTIVITAMIN/MEMBERSHIP COORDINATOR AL FORMULA TABS OR 1 TABLET DAILY 0 0 12/02/2001 Active SYSTANE PRESERVATIVE FREE 0.4-0.3 % OP SOLNIndications:Ot her anterior corneal dystrophies 1 gtt OU q2h WA 1 box 6 12/03/2008 Active CALCIUM 4098-1891 MG-UNIT PO CHEW Take 1 Tablet by mouth in the morning. 0 Active Cinnamon 500 MG Capsule Take 2 Capsules by mouth in the morning. 0 Active ONETOUCH ULTRASOFT LANCETS MISCIndications:DM type 2 causing renal disease ([facility]) Use as directed daily. Use up to four times a day as directed. Dx E11.9 3 Box Dosing Unit 3 09/13/2018 Active aspirin enteric coated 81 MG TBECIndications:Co ronary artery disease involving agdaagux coronary artery of agdaagux heart without angina pectoris Take 1 Tab [...] Tablet Sublingual (Nitrostat)Indicat ions:Coronary artery disease involving agdaagux coronary artery of agda[place] heart without angina pectoris,[place] (myocardial infarction) Place 1 Tablet under the tongue every 5 minutes as needed for Pain, Chest. 25 Tablet 5 09/03/2022 Active Apixaban 5 MG Oral Tablet (Eliquis)Indicatio ns:PAF (paroxysmal atrial fibrillation) ([facility]) Take 1 Tablet by mouth in the morning and 1 Tablet before bedtime. 180 Tablet 3 01/01/2023 Active Midodrine HCl 5 MG Oral Tablet (Proamatine)Indica tions:Chronic systolic heart failure (HCC),Coronary artery disease involving agdaagux coronary artery of agdaagux heart without angina pectoris TAKE 1 TAB BY MOUTH SHORTLY BEFORE OR UPON RISING IN THE MORNING, AT MIDDAY, AND IN THE LATE AFTERNOON (NO LATER THAN 6PM) 270 Tablet 3 03/25/2023 Active Insulin Pen Needle 32G X 5 MMIndications:DM type 2 causing renal disease, not at goal ([facility]) use to inject lantus twice per day 200 Each 3 03/26/2023 Active OneTouch Verio In Vitro Strip (Glucose Blood)Indications: DM type 2 causing renal disease ([facility]) Check blood sugars one time daily. Dx E11.9 300 Strip 2 05/03/2023 Active glipiZIDE 5 MG Oral Tablet (Glucotrol) Take 1 Tablet by mouth in the morning and 1 Tablet before bedtime. 30 minutes before a meal. 180 Tablet 1 05/27/2023 Active Atorvastatin Calcium 40 MG Oral Tablet (Lipitor)Indicatio ns:Coronary artery disease involving agdaagux coronary artery of agdaagux heart without angina pectoris,Dyslipide mona TAKE 1 TABLET DAILY IN THE MORNING 90 Tablet 3 05/27/2023 Active Insulin Glargine Solostar 100 UNIT/ML Subcutaneous Solution Pen-injector (Lantus SoloStar)Indicatio ns:DM type 2 causing renal disease, 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) INJECT 20 UNITS SUBCUTANEOUSLY TWICE DAILY 30 mL 2 07/08/2023 Active Digoxin 125 MCG Oral Tablet (Lanoxin)Indicatio ns:Chronic systolic heart failure (HCC),Coronary artery disease involving agdaagux coronary artery of agdaagux heart without angina pectoris Take 1 Tablet [...] Dyslipidemia 02/18/2018 Coronary artery disease invo lving agdaagux coronary artery of agdaagux heart without angina pectoris 12/10/2017 PAF (paroxysmal [...] mRNA, LNP-s, No Pre serve, 2-Dose Series ([employer]) 07/23/2021,11/14/2020,10/24/2020 COVID-19, MRNA-LNP, 23-24, P F, 30 MCG/0.3 mL, 12 YRS AND ABOVE, IM ([employer]) 05/26/2023 Covid-19, Mrna, Lnp-s, Pf, B ivalent, 30 Mcg, IM, 12 yrs and above ([employer]) 05/26/2022 Diptheria/Tetanus (Adult) 05/02/1992 Pneumococcal Conjugate Vacc, [...] LPN - 11/10/2023 12:31 PM EDT Lakeisha from [facility] calling about TB results. I did inform her of Dr West's message. Pt had a suspicious CT on 10/24 at [facility]. She is inquiring once sputum results return if she can be notified if the M-TB results are positiveor not. If they are positive, the [facility] will treat the pt. Phone [facility]- [phone] * Telephone Encounter - Sosa Rosenberg LPN [...] that we did receive the results from [facility] she does have TB but per Dr. Kelley we would need to know if it is active or not and she should reach out to [facility] and vero stated they informed her to [...] she was advised by Dr. Ken at [facility] that she has tuberculosis. She [...] this is based on a call from [facility], can we look in her hospital chart? Please look under microbiology for any cultures or tissue samples. * Telephone Encounter - Jinny Norris OSA - 11/08/2023 1:16 PM EDT Patient advising that she believes she has tuberculosis * Telephone Encounter - Delmy Estes OSA - 11/08/2023 8:10 AM EDT Reason for patient's call: [facility] told pt to call first thing this morning about test results. Stated that they are urgent documented in this encounter Plan of Treatment Upcoming Encounters Date Type Department Care Team (Latest Contact Info) Description 11/12/2023 1:00 PM EDT Hospital Encounter ENDO OSSC, Endoscopy Room [facility] [address] [place] [phone] Fer Solano MD [address] [place] [address] 11/12/2023 1:00 PM EDT - 11/12/2023 2:00 PM EDT Surgery ENDO OSSC, Endoscopy Room [facility] [address] [place] [phone] Fer Solano MD [address] [place] [address] ESOPHAGOGASTRODUODENOSCOPY (EGD), FLEXIBLE, TRANSORAL, ENDOSCOPIC ULTRASOUND 11/15/2023 11:30 AM EDT Office Visit Cardiology, [facility] [address] [place] [address] Aurelio Viera PA-C [address] [place] [address] 12/31/2023 2:40 PM EDT Office Visit [facility] [address] [facility] [address] [facility]Wst [facility] [address] [facility] [address] 03/08/2024 10:00 AM EDT Cardiac Studies Cardiology, [facility] [address] [place] [address] [facility] [address] [place] [address] Scheduled Procedures Name Priority Associated Diagnoses Date/Ti [...] Additional history exists CKD PHOS USE SMARTSET 35467 10/03/2023/0 09/2022, 03/17/2021, 08/18/2019, Additional history exists CKD HGB USE SMARTSET 62212 03/08/202403/08, 10/02/2022, 07/29/2021, Additional history exists DIG [...] filedocumented as of this encounter Care Teams Power Generation Technician Relationship Specialty Start Date End Date Jason West MD [address] [place] [address] PCP - General 02/06/03 documented as of this encounter
--- OUTSIDE RECORDS SUMMARY | 2023-12-21 08:59 | External Medical Summary ---
Author Name Unknown Address Unknown Organization : Laboratory Report Ordering Provider Test Date Status DUARTE EVANS 11/12/2023 12:38:54 Final Observation Date Value Abnormality Reference (Units ) Status Glucose Point of Care 11/12/2023 12:38:54 202 Above high normal 70-120 (mg/dL) Final Performing Location
--- OUTSIDE RECORDS SUMMARY | 2023-12-21 08:59 | External Medical Summary | Summary of Care ---
Author Name Unknown Organization [facility] Address [address] [place] [address] Phone [phone] Care Team Providers Care Food Cashier Name Role Phone Jason West MD Primary Care Provider +1- [phone] Reason for Visit * Reason Onset Date Comments Advice 11/08/2023 Test Results 11/08/2023 Encounter Details Date Type Department Care Team (Late st Contact Info) Description 11/08/2023 Telephone [facility] [address] [place] [address] Jason West MD [address] [place] [address] Advice; Test Results Allergies Active Allergy Reactions Criticality Noted Date Comments Hydroxyzine Hcl 05/12/2012 halluzinating Cetirizine & Related 02/11/1999 HALLUCINATIONS documented as of this encounter (statuses as of 11/11/2023) Medications Medication Sig Dispensed Refills Start Date End Date Status MULTIVITAMIN/BARREL REAMER AL FORMULA TABS OR 1 TABLET DAILY 0 0 12/02/2001 Active SYSTANE PRESERVATIVE FREE 0.4-0.3 % OP SOLNIndications:Ot her anterior corneal dystrophies 1 gtt OU q2h WA 1 box 6 12/03/2008 Active CALCIUM 6760-2607 MG-UNIT PO CHEW Take 1 Tablet by mouth in the morning. 0 Active Cinnamon 500 MG Capsule Take 2 Capsules by mouth in the morning. 0 Active ONETOUCH ULTRASOFT LANCETS MISCIndications:DM type 2 causing renal disease ([facility]) Use as directed daily. Use up to [...] artery of agdaagux heart without angina pectoris,[place] (myocardial infarction) Place 1 Tablet under the tongue every 5 minutes as needed for Pain, Chest. 25 Tablet 5 09/03/2022 Active Apixaban 5 MG Oral Tablet (Eliquis)Indicatio ns:PAF (paroxysmal atrial fibrillation) ([facility]) Take 1 Tablet by mouth in the [...] renal disease, not at goal ([facility]) use to inject lantus twice per day 200 Each 3 03/26/2023 Active OneTouch Verio In Vitro Strip (Glucose Blood)Indications: DM type 2 causing renal disease ([facility]) Check blood sugars one time daily. Dx [...] mRNA, LNP-s, No Pre serve, 2-Dose Series ([employer]) 07/23/2021,11/14/2020,10/24/2020 COVID-19, MRNA-LNP, 23-24, P F, 30 MCG/0.3 mL, 12 YRS AND ABOVE, IM ([employer]) 05/26/2023 Covid-19, Mrna, Lnp-s, Pf, B ivalent, 30 Mcg, IM, 12 yrs and above ([employer]) 05/26/2022 Diptheria/Tetanus (Adult) 05/02/1992 Pneumococcal Conjugate Vacc, [...] encounter Miscellaneous Notes * Telephone Encounter - Lissa Powell LPN - 11/11/2023 9:43 AM EDT I did not see any change on the [facility] site to the results. The only current results are the preliminary. * Telephone Encounter - Jason West MD - 11/11/2023 8:17 AM EDT Yes - we will call [facility] once results are known. Will need to check [facility] system regularly for results. * Telephone Encounter - Colette Ken LPN - 11/10/2023 12:31 PM EDT Lakeisha from [facility] calling about TB results. I did inform her of Dr West's message. Pt had a suspicious CT on 10/24 at [facility]. She is inquiring once sputum results return if she can be notified if the M-TB results are positiveor not. If they are positive, the [facility] will treat the pt. Phone [facility]- [phone] * Telephone Encounter - Sosa Rosenberg LPN [...] that we did receive the results from [facility] she does have TB but per Dr. Kelley we would need to know if it is active or not and she should reach out to [facility] and vero stated they informed her [...] she was advised by Dr. Ken at [facility] that she has tuberculosis. She also [...] this is based on a call from [facility], can we look in her hospital chart? Please look under microbiology for any cultures or tissue samples. * Telephone Encounter - Jinny Norris OSA - 11/08/2023 1:16 PM EDT Patient advising that she believes she has tuberculosis * Telephone Encounter - Delmy Estes OSA - 11/08/2023 8:10 AM EDT Reason for patient's call: markel kandice told pt to call first thing this morning about test results. Stated that they are urgent documented in this encounter Plan of Treatment Upcoming Encounters Date Type Department Care Team (Latest Contact Info) Description 11/12/2023 1:00 PM EDT Hospital Encounter ENDO OSSC, Endoscopy Room [facility] [address] [place] [phone] Fer Solano MD [address] [place] [address] 11/12/2023 1:00 PM EDT - 11/12/2023 2:00 PM EDT Surgery ENDO OSSC, Endoscopy Room [facility] [address] [place] [address] Fer Solano MD [address] [place] [address] ESOPHAGOGASTRODUODENOSCOPY (EGD), FLEXIBLE, TRANSORAL, ENDOSCOPIC ULTRASOUND 11/15/2023 11:30 AM EDT Office Visit Cardiology, [facility] [address] [place] [address] Aurelio Viera PA-C [address] [place] [address] 12/31/2023 2:40 PM EDT Office Visit [facility] [place] [address] [place] [address] Jason West MD [address] [place] [address] 03/08/2024 10:00 AM EDT Cardiac Studies Cardiology, [facility] [place] [address] [facility] [address] [place] [address] Scheduled Procedures Name Priority Associated Diagnoses Date/Ti [...] Additional history exists CKD PHOS USE SMARTSET 74184 10/03/2023 03/0 09/2022, 03/17/2021, 08/18/2019, Additional history exists CKD HGB USE SMARTSET 90939 03/08/202403/08, 10/02/2022, 07/29/2021, Additional history exists DIG [...] filedocumented as of this encounter Care Teams Food Cashier Relationship Specialty Start Date End Date Jason West MD [address] [place] [address] PCP - General 02/06/03 documented as of this encounter
--- OUTSIDE RECORDS SUMMARY | 2023-12-21 08:59 | External Medical Summary | Summary of Care ---
Author Name Unknown Organization [facility] Address [address] [place] [address] Phone [phone] Care Team Providers Care Stockroom Helper Name Role Phone Jason West MD Primary Care Provider [phone]- [phone] Reason for Referral * Precert (Within 10 days (routine)) - Pending Review Specialty Diagnoses / Procedures Referred By Abdullahi melo Referred To Contact Radiology Diagnoses GE junction carcinoma (HCC) Procedures PET SKULL BASE TO MID-THIGH FDG Rachel Bruner CRNP [address] [place] [address] Referral ID Status Reason Start Date Expiration Date V isits Requested Visits Authorized [id number] Pending Review 11/05/2023 999 999 Reason for Visit * Reason Onset Date Comments Hospital Follow-Up 10/29/2023 Encounter Details Date Type Department Care Team (Late st Contact Info) Description 10/29/2023 [facility] [address] [place] [address] Rachel Bruner CRNP [address] [place] [address] Hospital Follow-Up Allergies Active Allergy Reactions Criticality Noted Date Comments Hydroxyzine Hcl 05/12/2012 halluzinating Cetirizine & Related 02/11/1999 HALLUCINATIONS documented as of this encounter (statuses as of 11/01/2023) Medications Medication Sig Dispensed Refills Start Date End Date Status MULTIVITAMIN/PAINT STOCKMAN AL FORMULA TABS OR 1 TABLET DAILY 0 0 12/02/2001 Active SYSTANE PRESERVATIVE FREE 0.4-0.3 % OP SOLNIndications:Ot her anterior corneal dystrophies 1 gtt OU q2h [place] 1 box 6 12/03/2008 Active CALCIUM 0273-1789 MG-UNIT PO CHEW Take 1 Tablet by [...] 81 MG TBECIndications:Co ronary artery disease involving [place] coronary artery of [place] heart without angina pectoris Take 1 Tab [...] Tablet Sublingual (Nitrostat)Indicat ions:Coronary artery disease involving [place] coronary artery of [place] heart without angina pectoris,Old [place] (myocardial infarction) Place 1 Tablet under the tongue every 5 minutes as needed for Pain, Chest. 25 Tablet 5 09/03/2022 Active Additional Information Patient not taking.Reported on 03/08/2023 Apixaban 5 MG Oral Tablet (Eliquis)Indicatio ns:PAF (paroxysmal atrial fibrillation) (FORMERLY [facility]) Take 1 Tablet by mouth in the morning and 1 Tablet before bedtime. 180 Tablet 3 01/01/2023 Active Midodrine HCl 5 MG Oral Tablet (Proamatine)Indica tions:Chronic systolic heart failure (HCC),Coronary artery disease involving [place] coronary artery of [place] heart without angina pectoris TAKE 1 TAB [...] Oral Tablet (Lipitor)Indicatio ns:Coronary artery disease involving [place] coronary artery of [place] heart without angina pectoris,Dyslipide mona TAKE 1 TABLET DAILY IN THE MORNING 90 Tablet 3 05/27/2023 Active Insulin Glargine Solostar 100 UNIT/ML Subcutaneous Solution Pen-injector (Lantus SoloStar)Indicatio ns:DM type 2 causing renal disease, not at goal ([facility]LY [facility]) INJECT 20 UNITS SUBCUTANEOUSLY TWICE DAILY 30 mL 2 07/08/2023 Active Digoxin 125 MCG Oral Tablet (Lanoxin)Indicatio ns:Chronic systolic heart failure (HCC),Coronary artery disease involving [place] coronary artery of [place] heart without angina pectoris Take 1 Tablet [...] as of this encounter (statuses as of 11/01/2023) Active Problems Problem Noted Date Diagnosed Date [...] Dyslipidemia 02/18/2018 Coronary artery disease invo lving [place] coronary artery of [place] heart without angina pectoris 12/10/2017 PAF (paroxysmal atrial fibrillation) 12/10/2017 Type 2 diabetes mellitus wit h hemoglobin A1c goal of less than 8.0% 09/08/2013 Overview: ICD-10 update of inactive term DJD, CERVICAL SPINE 04/12/2002 GENERAL OSTEOARTHROSIS documented as of this encounter (statuses as of 11/01/2023) Resolved Problems Problem Noted Date Diagnosed Date [...] as of this encounter (statuses as of 11/01/2023) Immunizations Name Administration Dates Next Due COVID-19 mRNA, LNP-s, No Pre serve, 2-Dose Series (MPV) 07/23/2021,11/14/2020,10/24/2020 COVID-19, MRNA-LNP, 23-24, P F, 30 MCG/0.3 mL, 12 YRS AND ABOVE, IM ([employer]-Comirnaty) 05/26/2023 Covid-19, Mrna, Lnp-s, Pf, B ivalent, [...] encounter Miscellaneous Notes * Telephone Encounter - Elvie Mendoza OSA - 11/01/2023 3:14 PM EDT Pt is adolfo'd for EUS 11/12/23. * Telephone Encounter - Rachel Bruner CRNP - 10/29/2023 12:53 PM EDT Pt seen in consult at [facility] for dysphagia. EGD w mass, path w adenocarcinoma. CT at [facility] w/o mets. EGD w non obstructing GE junction mass Path: . 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 - HER2/adam overexpression: Negative (score 0). - See comment. Comment: The specimen will be sent for FISH analysis of HER2/adam. Those results will be documented in an addendum and separate [employer] report. In addition, the specimen will be evaluated for PD-L1. Those results will be documented in an addendum. at 0933. Please arrange OP EUS for staging and OP PET scan (message sent by Dr. Aranda 2 days ago about the PET but he also recommends EUS). documented in this encounter Plan of Treatment Upcoming Encounters Date Type Department Care Team (Latest Contact Info) Description 11/02/2023 11:00 AM EDT Office Visit [address] [phone] Jason West [facility] [address] [facility] [place] [address] 11/09/2023 11:45 AM EDT Imaging Radiology [address] [place], [place] [address] 11/12/2023 1:00 PM EDT Hospital Encounter ENDO [facility], Endoscopy Room [facility] [address] [place] [phone] Fer Solano MD [address] [place] [address] 11/12/2023 1:00 PM EDT - 11/12/2023 2:00 PM EDT Surgery ENDO [facility], Endoscopy Room [facility] [address] [place] [phone] Fer Solano MD [address] [place] [address] ESOPHAGOGASTRODUODENOSCOPY (EGD), FLEXIBLE, TRANSORAL, ENDOSCOPIC ULTRASOUND 11/15/2023 11:30 AM EDT Office Visit Cardiology, [facility] [address] [place] [address] Aurelio Viera PA-C [address] [place] [address] 12/31/2023 2:40 PM EDT Office Visit [facility] [place] [address] [facility] [phone] Jason West [facility] [address] [facility] [address] 03/08/2024 10:00 AM EDT Cardiac Studies Cardiology, [facility] [address] [place] [address] Shyla Palaciosr [facility] [address] [place] [address] Scheduled Orders Name Type Priority Associated Diagnoses Orde r Schedule US ENDOSCOPIC Medical Imaging Routine GE junction carcinoma (HCC) Expected: 11/05/2023, Expires: 11/28/2024 PET SKULL BASE TO MID-THIGH FDG Medical Imaging Routine GE junction carcinoma (HCC) Expected: 11/05/2023, Expires: 11/28/2024 Scheduled Procedures Name Priority Associated Diagnoses Date/Ti hi ESOPHAGOGASTRODUODENOSCOPY ( EGD), FLEXIBLE, TRANSORAL, ENDOSCOPIC ULTRASOUND [...] Additional history exists CKD PHOS USE SMARTSET 56233 10/03/2023 03/0 09/2022, 03/17/2021, 08/18/2019, Additional history exists Depression Screening 12/03/2023 12/02/2022 CKD HGB USE SMARTSET 15955 03/08/202403/08, 10/02/2022, 07/29/2021, Additional history exists DIG [...] carcinoma (HCC)- Primary 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
--- OUTSIDE RECORDS SUMMARY | 2023-12-21 09:00 | External Medical Summary | Summary of Care ---
Author Name Unknown Organization [facility] Address [address] [place] [address] Phone [phone] Care Team Providers Care Procurement Director Name Role Phone Jason West MD Primary Care Provider [phone]- [phone] Reason for Referral * Precert (Within 10 days (routine)) - Pending Review Specialty Diagnoses / Procedures Referred By Abdullahi melo Referred To Contact Radiology Diagnoses Esophageal mass Procedures PET CT WHOLE BODY FDG Whitney Aranda MD [address] [place] [address] Referral ID Status Reason Start Date Expiration Date Visits Requested Visits Authorized [id number] Pending Review Precert 11/10/[phone] Reason for Visit * Reason Onset Date Comments Appointment 10/27/2023 Encounter Details Date Type Department Care Team (Late st Contact Info) Description 10/27/2023 Telephone Gastroenterology, [facility] [address] [place] [address] Whitney Aranda MD [address] [place] [address] Appointment Allergies Active Allergy Reactions Criticality Noted Date Comments Hydroxyzine Hcl 05/12/2012 halluzinating Cetirizine & Related 02/11/1999 HALLUCINATIONS documented as of this encounter (statuses as of 10/29/2023) Medications Medication Sig Dispensed Refills Start Date End Date Status MULTIVITAMIN/MINE RAL FORMULA TABS OR 1 TABLET DAILY 0 0 2 Active SYSTANE PRESERVATIVE FREE 0.4-0.3 % OP SOLNIndications:O ther anterior corneal dystrophies 1 gtt OU q2h WA 1 box 6 9 Active CALCIUM 8325-9875 MG-UNIT PO CHEW Take 1 Tablet by mouth in the morning. 0 Active Cinnamon 500 MG Capsule Take 2 Capsules by mouth in the morning. 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 Use up to four times a day as directed. Dx E11.9 3 Box Dosing Unit 3 9 Active aspirin enteric coated 81 MG TBECIndications:C oronary artery disease involving [place] coronary artery of redding heart without angina pectoris Take 1 Tab [...] Tablet Sublingual (Nitrostat)Indica tions:Coronary artery disease involving redd[place] coronary artery of redding heart without angina pectoris,Old [place] (myocardial infarction) Place 1 Tablet under the tongue every 5 minutes as needed for Pain, Chest. 25 Tablet 5 3 Active Additional Information Patient not taking.Reported on 03/08/2023 Apixaban 5 MG Oral Tablet (Eliquis)Indicati ons:PAF (paroxysmal atrial fibrillation) (HCC) Take 1 Tablet by mouth in the morning and 1 Tablet before bedtime. 180 Tablet 3 3 Active Midodrine HCl 5 MG Oral Tablet (Proamatine)Indic ations:Chronic systolic heart failure (HCC),Coronary artery disease involving [place] coronary artery of redding heart without angina pectoris TAKE 1 TAB [...] :DM type 2 causing renal disease ([facility] [...] Oral Tablet (Lipitor)Indicati ons:Coronary artery disease involving [place] coronary artery of redding heart without angina pectoris,Dyslipid emia TAKE 1 [...] systolic heart failure (HCC),Coronary artery disease involving [place] coronary artery of redding heart without angina pectoris Take 1 Tablet [...] THE EVENING 230 Tablet 3 4 Active Entresto 24-26 MG Oral Tablet (sacubitril-valsa rtan 24-26 mg per tab)Indications:C hronic systolic heart failure (HCC) Take 1 Tablet by mouth in the morning and 1 Tablet before bedtime. 180 Tablet 3 3 10/28/19 24 Discontinu ed(Dischar ged) Torsemide 20 MG Oral Tablet (Demadex) Take 1 Tablet by mouth in the morning. 90 Tablet 3 4 10/28/19 24 Discontinu ed(Medicat ion/Dose Changed) documented as of this encounter (statuses as of 10/29/2023) Active Problems Problem Noted Date Diagnosed Date [...] Dyslipidemia 02/18/2018 Coronary artery disease invo lving redd[place] coronary artery of redding heart without angina pectoris 12/10/2017 PAF (paroxysmal atrial fibrillation) 12/10/2017 Type 2 diabetes mellitus wit h hemoglobin A1c goal of less than 8.0% 09/08/2013 Overview: ICD-10 update of inactive term DJD, CERVICAL SPINE 04/12/2002 GENERAL OSTEOARTHROSIS documented as of this encounter (statuses as of 10/29/2023) Resolved Problems Problem Noted Date Diagnosed Date [...] as of this encounter (statuses as of 10/29/2023) Immunizations Name Administration Dates Next Due COVID-19 mRNA, LNP-s, No Pre serve, 2-Dose Series ([employer]) 07/23/2021,11/14/2020,10/24/2020 COVID-19, MRNA-LNP, 23-24, P F, 30 MCG/0.3 mL, 12 YRS AND ABOVE, IM ([employer]-Comirnaty) 05/26/2023 Covid-19, Mrna, Lnp-s, Pf, B ivalent, [...] Telephone Encounter - Tami Reeder OSA - 10/29/2023 1:50 PM EDT Eus 11/11 * Telephone Encounter - Maria Luisa Ron OSA - 10/29/2023 12:10 PM EDT Pt is scheduled for a PET scan on 11/01 @ 2:45 PM * Telephone Encounter - Elvie Mendoza OSA - 10/28/2023 11:23 AM EDT Ok for [facility] per PAT for EUS, looking or appt for pt. Lmm for pt to schedule PET scan per Dr Aranda. * Telephone Encounter - Frieda Mejia CRNP - 10/27/2023 2:37 PM EDT GI notes from [facility] reviewed. She was seen by Dr. Aranda & Rachel prior to DC. Pt doesn'tnot need outpt EGD but needs EUS. Pls schedule EUS and then f/u in GI clinic. KHADAR Levi . * Telephone Encounter - Laurie Dorman OSA - 10/27/2023 12:48 PM EDT Ciara was discharged today from [facility] and they would like her to see Dr Aranda. Please advise. documented in this encounter Plan of Treatment Upcoming Encounters Date Type Department Care Team (Latest Contact Info) Description 11/02/2023 11:00 AM EDT [facility] [address] [facility] [phone] Jason West MD [address] [facility] [address] 11/09/2023 11:45 AM EDT Imaging Radiology [address] [place] [address] 11/12/2023 1:00 PM EDT Hospital Encounter ENDO [facility], Endoscopy Room [facility] [address] [place] [phone] Fer Solano MD [address] [place] [address] 11/12/2023 1:00 PM EDT - 11/12/2023 2:00 PM EDT Surgery ENDO [facility], Endoscopy Room [facility] [address] [place] [phone] Fer Solano MD [address] [place] [address] ESOPHAGOGASTRODUODENOSCOPY (EGD), FLEXIBLE, TRANSORAL, ENDOSCOPIC ULTRASOUND 11/15/2023 11:30 AM EDT Office Visit Cardiology, [facility] [address] [place] [address] Aurelio Viera PAJuanyC [address] [place] [address] 12/31/2023 2:40 PM EDT Office Visit [facility] [address] [facility] [phone] Jason West MD [address] [facility] [place] [address] 03/08/2024 10:00 AM EDT Cardiac Studies Cardiology, [facility] [address] [place] [address] [facility] [address] [place] [address] Scheduled Orders Name Type Priority Associated Diagnoses Orde r Schedule US ENDOSCOPIC Medical Imaging Routine Esophageal mass Ordered: 10/27/[address] WHOLE BODY FDG Medical Imaging Routine Esophageal mass Expected: 11/10/2023, Expires: 11/26/2024 Scheduled Procedures Name Priority Associated Diagnoses Date/Ti [...] Additional history exists CKD PHOS USE SMARTSET 91463 10/03/2023 03/0 09/2022, 03/17/2021, 08/18/2019, Additional history exists Depression Screening 12/03/2023 12/02/2022 CKD HGB USE SMARTSET 08614 03/08/202403/08, 10/02/2022, 07/29/2021, Additional history exists DIG [...] as of this encounter Visit Diagnoses Diagnosis Esophageal mass- Primary 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
--- OUTSIDE RECORDS SUMMARY | 2023-12-21 09:00 | External Medical Summary | Summary of Care ---
Author Name Unknown Organization [facility] Address [address] [place] [address] Phone [phone] Care Team Providers Care Clinical Marketing Manager Name Role Phone Jason West MD Primary Care Provider +1- [phone] Reason for Referral * Precert (Within 10 days (routine)) - Pending Review Specialty Diagnoses / Procedures Referred By Abdullahi melo Referred To Contact Radiology Diagnoses Esophageal mass Procedures PET CT WHOLE BODY FDG Whitney Aranda MD [address] [place] [address] Referral ID Status Reason Start Date Expiration Date Visits Requested Visits Authorized [id number] Pending Review Precert 11/10/[phone] Reason for Visit * Reason Onset Date Comments Appointment 10/27/2023 Encounter Details Date Type Department Care Team (Late st Contact Info) Description 10/27/2023 Telephone Gastroenterology, [facility] [address] [place] [address] Whitney Aranda MD [address] [place] [address] Appointment Allergies Active Allergy Reactions Criticality [...] WA 1 box 6 9 Active CALCIUM 1684-4927 MG-UNIT PO CHEW Take 1 Tablet by mouth in the morning. 0 Active Cinnamon 500 MG Capsule Take 2 Capsules by mouth in the morning. 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 Use up to four times a day as directed. Dx E11.9 3 Box Dosing Unit 3 9 Active aspirin enteric coated 81 MG TBECIndications:C oronary artery disease involving [place] coronary artery of [place] heart without angina pectoris Take 1 Tab [...] Tablet Sublingual (Nitrostat)Indica tions:Coronary artery disease involving [place] coronary artery of [place] heart without angina pectoris,Old [place] (myocardial infarction) [...] systolic heart failure (HCC),Coronary artery disease involving [place] coronary artery of [place] heart without angina pectoris TAKE 1 TAB BY MOUTH SHORTLY BEFORE OR UPON RISING IN THE MORNING, AT MIDDAY, AND IN THE LATE AFTERNOON (NO LATER THAN 6PM) 270 Tablet 3 3 Active Insulin Pen Needle 32G X 5 MMIndications:DM type 2 causing renal disease, not at goal ([facility]) use to inject lantus twice per day 200 Each 3 3 Active OneTouch Verio In Vitro Strip (Glucose Blood)Indications :DM type 2 causing renal disease ([facility]) Check blood sugars one time daily. Dx E11.9 300 Strip 2 3 Active glipiZIDE 5 MG Oral Tablet (Glucotrol) Take 1 Tablet by mouth in the morning and 1 Tablet before bedtime. 30 minutes before a meal. 180 Tablet 1 3 Active Atorvastatin Calcium 40 MG Oral Tablet (Lipitor)Indicati ons:Coronary artery disease involving [place] coronary artery of [place] heart without angina pectoris,Dyslipid emia TAKE 1 TABLET DAILY IN THE MORNING 90 Tablet 3 3 Active Insulin Glargine Solostar 100 UNIT/ML Subcutaneous Solution Pen-injector (Lantus SoloStar)Indicati ons:DM type 2 causing renal disease, not at goal ([facility]) INJECT 20 UNITS SUBCUTANEOUSLY TWICE DAILY 30 mL 2 3 Active Digoxin 125 MCG Oral Tablet (Lanoxin)Indicati ons:Chronic systolic heart failure (HCC),Coronary artery disease involving [place] coronary artery of [place] heart without angina pectoris Take 1 Tablet [...] Dyslipidemia 02/18/2018 Coronary artery disease invo lving [place] coronary artery of [place] heart without angina pectoris 12/10/2017 PAF (paroxysmal [...] mRNA, LNP-s, No Pre serve, 2-Dose Series ([employer]) 07/23/2021,11/14/2020,10/24/2020 COVID-19, MRNA-LNP, 23-24, P F, 30 MCG/0.3 mL, 12 YRS AND ABOVE, IM ([employer]-Comirnaty) 05/26/2023 Covid-19, Mrna, Lnp-s, Pf, B ivalent, [...] encounter Miscellaneous Notes * Telephone Encounter - Maria Luisa Ron [...] 10/27/2023 2:37 PM EDT GI notes from [facility] reviewed. She was seen by Dr. Aranda & Rachel prior to DC. Pt doesn'tnot need outpt EGD but needs EUS. Pls schedule EUS and then f/u in GI clinic. KHADAR Levi . * Telephone Encounter - Laurie Dorman OSA - 10/27/2023 12:48 PM EDT Ciara was discharged today from [facility] and they would like her to see Dr Aranda. Please advise. documented in this encounter Plan of Treatment Upcoming Encounters Date Type Department Care Team (Late st Contact Info) Description 11/02/2023 11:00 AM EDT Office Visit [facility] [place] [address] [facility] [phone] Jason West MD [address] [facility] [address] 11/02/2023 2:45 PM EDT [facility] [address] [place] [address] 11/15/2023 11:30 AM EDT Office Visit Cardiology, [facility] [address] [facility] [place] [address] Aurelio Viera PA-C [address] [facility] [place] [address] 12/31/2023 2:40 PM EDT Office Visit [facility] [place] [address] [facility] [phone] Jason West MD [address] [facility] [place] [address] 03/08/2024 10:00 AM EDT Cardiac Studies Cardiology, [facility] [address] [facility] [place] [address] [facility] [address] [facility] [place] [address] Scheduled Orders Name Type Priority Associated Diagnoses Orde r Schedule US ENDOSCOPIC Medical Imaging Routine Esophageal mass Ordered: 10/27/[address] WHOLE BODY FDG Medical Imaging Routine Esophageal mass Expected: 11/10/2023, Expires: 11/26/2024 Health Maintenance Due Date Last Done Comments Hepatitis C Screening 1963 Diabetic Foot Exam 03/17/2022 03/17/2021, 0 12/27/2019, 12/07/2018, Additional history exists Diabetic Eye Exam 08/15/2022 08/15/2021, , 03/28/2018, Additional history exists GFR 09/08/2023 03/08/2023, 03/0 09/2022, 01/13/2022, Additional history exists HbA1c 09/08/2023 03/08/2023, 03/0 09/2022, 01/13/2022, Additional history exists Albumin/Creatinine Ratio 10/03/2023 023, 08/28/2021, 11/18/2020, Additional history exists CKD PHOS USE SMARTSET 67697 10/03/2023 03/0 09/2022, 03/17/2021, 08/18/2019, Additional history exists Depression Screening 12/03/2023 12/02/2022 CKD HGB USE SMARTSET 81879 03/08/202403/08, 10/02/2022, 07/29/2021, Additional history exists DIG [...] Esophageal mass- Primary Unspecified disorder of esophagus documented in this encounter Care Teams Clinical Marketing Manager Relationship Specialty Start Date End Date Jason West MD [address] [place] [address] PCP - General 02/06/03 documented as of this encounter
--- OUTSIDE RECORDS SUMMARY | 2023-12-21 09:00 | External Medical Summary | Summary of Care ---
Author Name Unknown Organization [facility] Address [address] [place] [address] Phone [phone] Care Team Providers Care Documentation Specialist Name Role Phone Jason West MD Primary Care Provider [phone] Reason for Visit * Reason Onset Date Comments Hospital Follow-Up 10/28/2023 HUSSAIN Encounter Details Date Type Department Care Team (Late st Contact Info) Description 10/28/2023 Telephone [facility] [address] [place] [address] Sakshi Ashton RN Hospital Follow-Up (HUSSAIN) Allergies Active Allergy Reactions Criticality Noted Date Comments Hydroxyzine Hcl 05/12/2012 halluzinating Cetirizine & Related 02/11/1999 HALLUCINATIONS documented as of this encounter (statuses as of 10/28/2023) Medications Medication Sig Dispensed Refills Start Date End Date Status MULTIVITAMIN/MINE RAL FORMULA TABS OR 1 TABLET DAILY 0 0 2 Active SYSTANE PRESERVATIVE FREE 0.4-0.3 % OP SOLNIndications:O ther anterior corneal dystrophies 1 gtt OU q2h WA 1 box 6 9 Active CALCIUM 0760-4728 MG-UNIT PO CHEW Take 1 Tablet by [...] 81 MG TBECIndications:C oronary artery disease involving [place] coronary artery of [place] heart without angina pectoris Take 1 Tab [...] Tablet Sublingual (Nitrostat)Indica tions:Coronary artery disease involving [place] coronary artery of [place] heart without angina pectoris,Old [place] (myocardial infarction) Place 1 Tablet under the tongue every 5 minutes as needed for Pain, Chest. 25 Tablet 5 3 Active Additional Information Patient not taking.Reported on 03/08/2023 Apixaban 5 MG Oral Tablet (Eliquis)Indicati ons:PAF (paroxysmal atrial fibrillation) ([facility]) Take 1 Tablet by mouth in the morning and 1 Tablet before bedtime. 180 Tablet 3 3 Active Midodrine HCl 5 MG Oral Tablet (Proamatine)Indic ations:Chronic systolic heart failure (HCC),Coronary artery disease involving [place] coronary artery of [place] heart without angina pectoris TAKE 1 TAB BY MOUTH SHORTLY BEFORE OR UPON RISING IN THE MORNING, AT MIDDAY, AND IN THE LATE AFTERNOON (NO LATER THAN 6PM) 270 Tablet 3 3 Active Insulin Pen Needle 32G X 5 MMIndications:DM type 2 causing renal disease, not at goal ([facility]) use to inject lantus twice per day [...] Oral Tablet (Lipitor)Indicati ons:Coronary artery disease involving [place] coronary artery of [place] heart without angina pectoris,Dyslipid emia TAKE 1 TABLET DAILY IN THE MORNING 90 Tablet 3 3 Active Insulin Glargine Solostar 100 UNIT/ML Subcutaneous Solution Pen-injector (Lantus SoloStar)Indicati ons:DM type 2 causing renal disease, 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) INJECT 20 UNITS SUBCUTANEOUSLY TWICE DAILY 30 mL 2 3 Active Digoxin 125 MCG Oral Tablet (Lanoxin)Indicati ons:Chronic systolic heart failure (HCC),Coronary artery disease involving [place] coronary artery of [place] heart without angina pectoris Take 1 Tablet [...] before bedtime. For 10 days. 0 Active Entresto 24-26 MG Oral Tablet (sacubitril-valsa [...] as of this encounter (statuses as of 10/28/2023) Active Problems Problem Noted Date Diagnosed Date [...] Dyslipidemia 02/18/2018 Coronary artery disease invo lving te[place] coronary artery of [place] heart without angina pectoris 12/10/2017 PAF (paroxysmal atrial fibrillation) 12/10/2017 Type 2 diabetes mellitus wit h hemoglobin A1c goal of less than 8.0% 09/08/2013 Overview: ICD-10 update of inactive term DJD, CERVICAL SPINE 04/12/2002 GENERAL OSTEOARTHROSIS documented as of this encounter (statuses as of 10/28/2023) Resolved Problems Problem Noted Date Diagnosed Date [...] as of this encounter (statuses as of 10/28/2023) Immunizations Name Administration Dates Next Due COVID-19 mRNA, LNP-s, No Pre serve, 2-Dose Series ([employer]) 07/23/2021,11/14/2020,10/24/2020 COVID-19, MRNA-LNP, 23-24, P F, 30 [...] encounter Miscellaneous Notes * Telephone Encounter - Sakshi Ashton RN - 10/28/2023 1:48 PM EDT Transitions of Care Note Reason for Referral:Recent Admission Phone visit for follow up: HUSSAIN Admitted to: [facility], Date: 10/21/2023 Discharged to: Home, Date: 10/27/2023 Diagnosis driving hospitalization: GI Adenocarcinoma, Syncope and Collapse, Pulmonary nodule, H. Pylori Infection Source/Contact: Patient SUBJECTIVE Consent: Verbal consent for review of hospital discharge: Yes REVIEW OF SYSTEMS Patient/Other Reports: Current patient/caregiver problems or concerns: Doing OK at home, feels anxious with new diagnosis.Active listening and support given. States her 's niece is coming daily to spend time with her. Last BM 10/21/23. Miralax given in hospital 10/26/23. Denies any abdominal discomfort, no bloating, nausea or vomiting. No flatus. States was on liquid diet until 10/25, but didn't really eat much. On pureed diet, tolerating shakes and soups, pudding. Had mashed scrambled eggs this AM. CV: Denies problems Pulmonary: Denies problems Chills/Sweats/Fever:Denies chills/sweats Denies fever Appetite:Denies problems such as nausea, vomiting, burning, decreased appetite Current diet: Pureed Bowel: See above Bladder: denies problems Wound (If applicable): N/A Pain:Denies Sleep:Denies problems FUNCTIONAL STATUS: ADL'S: Needs Assistance With:N/A as pt is independent IADL'S: Needs Assistance With:N/A as pt is independent Cognitive and Mental Health: denies problems, alert and oriented x 3, and able to communicate, understand instructions, process information. MEDICATION RECONCILIATION Medications: Discharge med list reviewed with patient or caregiver New medications: Amoxicillin, Clarithromycin, Metoprolol 50 mg, Advanced Probiotic, Pantoprazole, Torsemide Changed medication: Digoxin Discontinued medications: Metoprolol 100 mg, Entresto, Torsemide On Hold: Atorvastatin States she gets meds delivered from the pharmacy and antibiotics, Probiotic and Pantoprazole shouldarrive tomorrow. ASSESSMENT Medication Risk Assessment: No risks identified Did patient fail outpatient treatment? No Discharge instructions available for review? Yes PLAN Symptom Monitoring Interventions:Member/caregiver education - signs and symptoms to contact PrimaryCare (DO NOT DELETE-Three quinn symptoms patient is to report to PCP) 1. Chest Pain/SOB 2. Fever/chills 3. No BM in next few days, nausea/vomiting, bloating, abdominal pain Admin SecretaryPlacement Secretary of Care interventions/Action Plan: 5 - 7 day follow-up with PCP in place - Date: PCP appointment 11/02/2023 Educated on role of HUSSAIN completed with patient/caregiver. Educated patient/caregiver on patient right to have input on HUSSAIN plan of care. Verification of Home Health/DME if indicated: YES Energy PT Identified Care Gaps: No Care Gaps closed this call: Appointment made or confirmed and Transition of Care follow-up communication Re-evaluation of Plan of Care and progress towards goals achievement: Patient education this visit: Verbal, Confirmed PCP appointment, discussed reasons to call sooner as above Plan to instructed to call Primary Care Provider with change in symptoms or as needed before next follow-up, discharge needs met, verbalizes understanding and agrees with plan. Discussed with Dr. West, No BM since 10/20 and no flatus. Possibly due to NPO/change in diet. Symptoms based - to call is vomiting/bloating/ abdominal pain. Ok to try prunes or Miralax, enema ifhard stool. Also notified of Antibiotics to be delivered tomorrow and OK. Returned call to patient and notified of above, verbalized understanding. Sakshi Ashton, RN documented in this encounter Plan of Treatment Upcoming Encounters Date Type Department Care Team (Late st Contact Info) Description 11/02/2023 11:00 AM EDT [facility] [address] [facility] [phone] Jason West [facility] [address] [facility] [place] [address] 11/15/2023 11:30 AM EDT Office Visit Cardiology, [facility] [address] [place] [address] Aurelio Viera PA-C [address] [place] [address] 12/31/2023 2:40 PM EDT Office Visit [facility] [place] [address] [place] [address] Jason West [facility] [address] [facility] [address] 03/08/2024 10:00 AM EDT Cardiac Studies Cardiology, [facility] [address] [place] [address] Delmar Palacios [facility] [address] [place] [address] Health Maintenance Due Date Last Done Comments Hepatitis C Screening 1963 Diabetic Foot Exam 03/17/2022 03/17/2021, 0 12/27/2019, 12/07/2018, Additional history exists Diabetic Eye Exam 08/15/2022 08/15/2021, , 03/28/2018, Additional history exists GFR 09/08/2023 03/08/2023, 03/0 09/2022, 01/13/2022, Additional history exists HbA1c 09/08/2023 03/08/2023, 03/0 09/2022, 01/13/2022, Additional history exists Albumin/Creatinine Ratio 10/03/2023032 023, 08/28/2021, 11/18/2020, Additional history exists CKD PHOS USE SMARTSET 55206 10/03/2023 03/0 09/2022, 03/17/2021, 08/18/2019, Additional history exists Depression Screening 12/03/2023 12/02/2022 CKD HGB USE SMARTSET 88297 03/08/202403/08, 10/02/2022, 07/29/2021, Additional history exists DIG [...] filedocumented as of this encounter Care Teams Documentation Specialist Relationship Specialty Start Date End Date Jason West MD [address] [place] [address] PCP - General 02/06/03 documented as of this encounter
--- OUTSIDE RECORDS SUMMARY | 2023-12-21 09:00 | External Medical Summary | Summary of Care ---
Author Name Unknown Organization [facility] Address [address] [place] [address] Phone [phone] Care Team Providers Care Dimpling Machine Operator Name Role Phone Jason West MD Primary Care Provider [phone]- [phone] Reason for Referral * Precert (Within 10 days (routine)) - Pending Review Specialty Diagnoses / Procedures Referred By Abdullahi melo Referred To Contact Radiology Diagnoses Esophageal mass Procedures PET CT WHOLE BODY FDG Whitney Aranda MD [address] [place] [id number] Referral ID Status Reason Start Date Expiration Date V isits Requested Visits Authorized [id number] Pending Review 11/10/2023 999 999 Reason for Visit * Reason Onset Date Comments Appointment 10/27/2023 Encounter Details Date Type Department Care Team (Late st Contact Info) Description 10/27/2023 Telephone Gastroenterology, [facility] [address] [place] [address] Whitney Aranda MD [address] [place] [...] WA 1 box 6 9 Active CALCIUM 4254-0317 MG-UNIT PO CHEW Take 1 Tablet by mouth in the morning. 0 Active Cinnamon 500 MG Capsule Take 2 Capsules by mouth in the morning. 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) Use as directed daily. Use up to four times a day as directed. Dx E11.9 3 Box Dosing Unit 3 9 Active aspirin enteric coated 81 MG TBECIndications:C oronary artery disease involving [place] coronary artery of [place] heart without angina pectoris Take 1 Tab [...] Tablet Sublingual (Nitrostat)Indica tions:Coronary artery disease involving [place] coronary artery of [place] heart without angina pectoris,[place] (myocardial infarction) [...] systolic heart failure (HCC),Coronary artery disease involving [place] coronary artery of [place] heart without angina pectoris TAKE 1 TAB BY MOUTH SHORTLY BEFORE OR UPON RISING IN THE MORNING, AT MIDDAY, AND IN THE LATE AFTERNOON (NO LATER THAN 6PM) 270 Tablet 3 3 Active Insulin Pen Needle 32G X 5 MMIndications:DM type 2 causing renal disease, 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) use to inject lantus twice per day 200 Each 3 3 Active OneTouch Verio In Vitro Strip (Glucose Blood)Indications :DM type 2 causing renal disease ([facility]) Check blood sugars one time daily. Dx E11.9 300 Strip 2 3 Active glipiZIDE 5 MG Oral Tablet (Glucotrol) Take 1 Tablet by mouth in the morning and 1 Tablet before bedtime. 30 minutes before a meal. 180 Tablet 1 3 Active Atorvastatin Calcium 40 MG Oral Tablet (Lipitor)Indicati ons:Coronary artery disease involving [place] coronary artery of [place] heart without angina pectoris,Dyslipid emia TAKE 1 TABLET DAILY IN THE MORNING 90 Tablet 3 3 Active Insulin Glargine Solostar 100 UNIT/ML Subcutaneous Solution Pen-injector (Lantus SoloStar)Indicati ons:DM type 2 causing renal disease, 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) INJECT 20 UNITS SUBCUTANEOUSLY TWICE DAILY 30 mL 2 3 Active Digoxin 125 MCG Oral Tablet (Lanoxin)Indicati ons:Chronic systolic heart failure (HCC),Coronary artery disease involving [place] coronary artery of [place] heart without angina pectoris Take 1 Tablet [...] Dyslipidemia 02/18/2018 Coronary artery disease invo lving [place] tribe coronary artery of [place] tribe heart without angina pectoris 12/10/2017 PAF (paroxysmal [...] mRNA, LNP-s, No Pre serve, 2-Dose Series ([employer]) 07/23/2021,11/14/2020,10/24/2020 COVID-19, MRNA-LNP, 23-24, P F, 30 MCG/0.3 mL, 12 YRS AND ABOVE, IM ([employer]-Comirnaty) 05/26/2023 Covid-19, Mrna, Lnp-s, Pf, B ivalent, [...] 10/27/2023 2:37 PM EDT GI notes from [facility] reviewed. She was seen by Dr. Aranda & Rachel prior to DC. Pt doesn'tnot need outpt EGD but needs EUS. Pls schedule EUS and then f/u in GI clinic. KHADAR Levi . * Telephone Encounter - Laurie Dorman OSA - 10/27/2023 12:48 PM EDT Ciara was discharged today from [facility] and they would like her to see Dr Aranda. Please advise. documented in this encounter Plan of Treatment Upcoming Encounters Date Type Department Care Team (Late st Contact Info) Description 11/02/2023 11:00 AM EDT Office Visit [address] [address] Jason West MD [address] [place] [address] 11/15/2023 11:30 AM EDT Office Visit Cardiology, [facility] [address] [facility] [place] [address] Aurelio Viera PA-C [address] [facility] [place] [address] 12/31/2023 2:40 PM EDT Office Visit [facility] [address] [facility] [phone] Jason West MD [address] [place] [address] 03/08/2024 10:00 AM EDT Cardiac Studies Cardiology, [facility] [address] [facility] [place] [address] [facility] [address] [facility] [place] [address] Scheduled Orders Name Type Priority Associated Diagnoses [...] Additional history exists CKD PHOS USE SMARTSET 28558 10/03/2023 03/0 09/2022, 03/17/2021, 08/18/2019, Additional history exists Depression Screening 12/03/2023 12/02/2022 CKD HGB USE SMARTSET 06300 03/08/202403/08, 10/02/2022, 07/29/2021, Additional history exists DIG [...] esophagus documented in this encounter Care Teams Dimpling Machine Operator Relationship Specialty Start Date End Date Jason West MD [address] [place] [address] PCP - General 02/06/03 documented as of this encounter
--- OUTSIDE RECORDS SUMMARY | 2023-12-21 09:00 | External Medical Summary | Summary of Care ---
Author Name Unknown Organization [facility] Address [address] [place] [address] Phone [phone] Care Team Providers Care Regulatory Affairs Analyst Name Role Phone Jason West MD Primary Care Provider [phone]- [phone] Reason for Referral * Precert (Within 10 days (routine)) - Pending Review Specialty Diagnoses / Procedures Referred By Abdullahi melo Referred To Contact Radiology Diagnoses Esophageal mass Procedures PET CT WHOLE BODY FDG Whitney Aranda MD [address] [place] [phone] Referral ID Status Reason Start Date Expiration Date V isits Requested Visits Authorized [id number] Pending Review 11/10/2023 999 999 Reason for Visit * Reason Onset Date Comments Appointment 10/27/2023 Encounter Details Date Type Department Care Team (Late st Contact Info) Description 10/27/2023 Telephone Gastroenterology, [facility] [address] [place] [address] Whitney Aranda MD [address] [place] [address] Appointment Allergies Active Allergy Reactions Criticality Noted Date Comments Hydroxyzine Hcl 05/12/2012 halluzinating Cetirizine & Related 02/11/1999 HALLUCINATIONS documented as of this encounter (statuses as of 10/28/2023) Medications Medication Sig Dispensed Refills Start Date End Date Status MULTIVITAMIN/STUDIO RECEPTIONIST AL FORMULA TABS OR 1 TABLET DAILY 0 0 12/02/2001 Active SYSTANE PRESERVATIVE FREE 0.4-0.3 % OP SOLNIndications:Ot her anterior corneal dystrophies 1 gtt OU q2h WA 1 box 6 12/03/2008 Active CALCIUM 7337-7717 MG-UNIT PO CHEW Take 1 Tablet by [...] artery of [place] heart without angina pectoris,Old [place] (myocardial infarction) [...] mRNA, LNP-s, No Pre serve, 2-Dose Series ([employer]) 07/23/2021,11/14/2020,10/24/2020 COVID-19, MRNA-LNP, 23-24, P F, 30 MCG/0.3 mL, 12 YRS AND ABOVE, IM ([employer]-Comirnaty) 05/26/2023 Covid-19, Mrna, Lnp-s, Pf, B [...] Mendoza OSA - 10/28/2023 11:23 AM EDT Checking with PAT if she needs hospital setting. * Telephone Encounter - Frieda Mejia CRNP - 10/27/2023 2:37 PM EDT GI notes from [facility] reviewed. She was seen by Dr. Aranda & Rachel prior to DC. Pt doesn'tnot need outpt EGD but needs EUS. Pls schedule EUS and then f/u in GI clinic. KHADAR Levi . * Telephone Encounter - Laurie Dorman OSA - 10/27/2023 12:48 PM EDT Ciara was discharged today from [facility] and they would like her to see Dr Aranda. Please advise. documented in this encounter Plan of Treatment Upcoming Encounters Date Type Department Care Team (Late st Contact Info) Description 11/02/2023 11:00 AM EDT Office Visit [facility] [address] [place] [address] Jason West MD [address] [facility] [place] [id number] 11/16/2023 10:00 AM EDT Office Visit Cardiology, [facility] [address] [facility] [place] [address] Nimo Sewell CRNP [address] [facility] [place] [address] 12/31/2023 2:40 PM EDT Office Visit [facility] [address] [facility] [phone] Jason West MD [address] [place] [address] 03/08/2024 10:00 AM EDT Cardiac Studies Cardiology, [facility] [place] [address] [facility] [address] [facility] [place] [address] Scheduled Orders Name Type Priority Associated Diagnoses [...] Additional history exists CKD PHOS USE SMARTSET 78306 10/03/2023 03/0 09/2022, 03/17/2021, 08/18/2019, Additional history exists Depression Screening 12/03/2023 12/02/2022 CKD HGB USE SMARTSET 91155 03/08/202403/08, 10/02/2022, 07/29/2021, Additional history exists DIG [...] esophagus documented in this encounter Care Teams Regulatory Affairs Analyst Relationship Specialty Start Date End Date Jason West MD [address] [place] [address] PCP - General 02/06/03 documented as of this encounter
--- OUTSIDE RECORDS SUMMARY | 2023-12-21 09:00 | External Medical Summary | Summary of Care ---
Author Name Unknown Organization [facility] Address [address] [place] [address] Phone [phone] Care Team Providers Care Roll Threader Operator Name Role Phone Jason West MD Primary Care Provider +1- [phone] Reason for Referral * Precert (Within 10 days (routine)) - Pending Review Specialty Diagnoses / Procedures Referred By Abdullahi melo Referred To Contact Radiology Diagnoses GE junction carcinoma (HCC) Procedures PET SKULL BASE TO MID-THIGH FDG Rachel Bruner CRNP [address] [place] [address] Referral ID Status Reason Start Date Expiration Date V isits Requested Visits Authorized [id number] Pending Review 11/05/2023 999 999 Reason for Visit * Reason Onset Date Comments Hospital Follow-Up 10/29/2023 Encounter Details Date Type Department Care Team (Late st Contact Info) Description 10/29/2023 [facility] [address] [place] [address] Rachel Bruner CRNP [address] [place] [address] Hospital Follow-Up Allergies Active Allergy Reactions Criticality Noted Date Comments Hydroxyzine Hcl 05/12/2012 halluzinating Cetirizine & Related 02/11/1999 HALLUCINATIONS documented as of this encounter (statuses as of 10/29/2023) Medications Medication Sig Dispensed Refills Start Date End Date Status MULTIVITAMIN/FLY FRAME TENDER AL FORMULA TABS OR 1 TABLET DAILY 0 0 12/02/2001 Active SYSTANE PRESERVATIVE FREE 0.4-0.3 % OP SOLNIndications:Ot her anterior corneal dystrophies 1 gtt OU q2h [place] 1 box 6 12/03/2008 Active CALCIUM 6221-7675 MG-UNIT PO CHEW Take 1 Tablet by [...] 81 MG TBECIndications:Co ronary artery disease involving [place] coronary artery of [place] heart without angina pectoris Take 1 Tab [...] Tablet Sublingual (Nitrostat)Indicat ions:Coronary artery disease involving [place] coronary artery of [place] heart without angina pectoris,Old [place] (myocardial infarction) Place 1 Tablet under the [...] systolic heart failure (HCC),Coronary artery disease involving [place] coronary artery of [place] heart without angina pectoris TAKE 1 TAB [...] Oral Tablet (Lipitor)Indicatio ns:Coronary artery disease involving [place] coronary artery of [place] heart without angina pectoris,Dyslipide mona TAKE 1 [...] systolic heart failure (HCC),Coronary artery disease involving [place] coronary artery of [place] heart without angina pectoris Take 1 Tablet [...] single episode, in full remission 12/07/2018 Old [place] (myocardial infarction) 03/31/2018 Heart failure, systolic, due to CAD 03/31/2018 Lymphedema of both lower extremities 03/31/2018 Dyslipidemia 02/18/2018 Coronary artery disease invo lving [place] coronary artery of [place] heart without angina pectoris 12/10/2017 PAF (paroxysmal [...] mRNA, LNP-s, No Pre serve, 2-Dose Series (Netechy) 07/23/2021,11/14/2020,10/24/2020 COVID-19, MRNA-LNP, 23-24, P F, 30 [...] encounter Miscellaneous Notes * Telephone Encounter - Rachel Bruner CRNP - 10/29/2023 12:53 PM EDT Pt seen in consult at [facility] for dysphagia. EGD w mass, path w adenocarcinoma. CT at [facility] w/o mets. EGD w non obstructing GE junction mass Path: . 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 - HER2/adam overexpression: Negative (score 0). - See comment. Comment: The specimen will be sent for FISH analysis of HER2/adam. Those results will be documented in an addendum and separate [employer] report. In addition, the specimen will be [...] Description 11/02/2023 11:00 AM EDT Office Visit [facility] [address] [place] [id number] [facility] [address] [facility] [address] 11/02/2023 2:45 PM EDT Imaging Radiology [facility] [address] [place] [address] 11/15/2023 11:30 AM EDT Office Visit Cardiology, [facility] [address] [place] [address] Aurelio Viera PA-C [address] [place] [address] 12/31/2023 2:40 PM EDT Office Visit [facility] [place] [address] [address] Jason West MD [address] [place] [facility] [place] [address] 03/08/2024 10:00 AM EDT Cardiac Studies Cardiology, [facility] [address] [place] [address] Delmar Palacios [facility] [address] [place] [address] Scheduled Orders Name Type Priority Associated Diagnoses Orde r Schedule US ENDOSCOPIC Medical Imaging Routine GE junction carcinoma (HCC) Expected: 11/05/2023, Expires: 11/28/2024 PET SKULL BASE TO MID-THIGH FDG Medical Imaging Routine GE junction carcinoma (HCC) Expected: 11/05/2023, Expires: 11/28/2024 Health Maintenance Due Date Last Done Comments Hepatitis C Screening 1963 Diabetic Foot Exam 03/17/2022 03/17/2021, 0 12/27/2019, 12/07/2018, Additional history exists Diabetic Eye Exam 08/15/2022 08/15/2021, , 03/28/2018, Additional history exists GFR 09/08/2023 03/08/2023, 03/0 09/2022, 01/13/2022, Additional history exists HbA1c 09/08/2023 03/08/2023, 03/0 09/2022, 01/13/2022, Additional history exists Albumin/Creatinine Ratio 10/03/202310/02/2 023, 08/28/2021, 11/18/2020, Additional history exists CKD PHOS USE SMARTSET 31551 10/03/2023 03/0 09/2022, 03/17/2021, 08/18/2019, Additional history exists Depression Screening 12/03/2023 12/02/2022 CKD HGB USE SMARTSET 43039 03/08/202403/08, 10/02/2022, 07/29/2021, Additional history exists DIG [...] cardia documented in this encounter Care Teams Roll Threader Operator Relationship Specialty Start Date End Date Jason West MD [address] [place] [address] PCP - General 02/06/03 documented as of this encounter
--- OUTSIDE RECORDS SUMMARY | 2023-12-21 09:00 | External Medical Summary | Summary of Care ---
Author Name Unknown Organization [facility] Address [address] [place] [address] Phone [phone] Care Team Providers Care Development Editor Name Role Phone Jason West MD Primary Care Provider [phone]- [phone] Reason for Visit * Reason Onset Date Comments Hospital Follow-Up 10/28/2023 HUSSAIN Encounter Details Date Type Department Care Team (Late st Contact Info) Description 10/28/2023 Telephone [facility] [address] [place] [address] Sakshi Ashton RN Hospital Follow-Up [...] WA 1 box 6 9 Active CALCIUM 8986-3246 MG-UNIT PO CHEW Take 1 Tablet by [...] 81 MG TBECIndications:C oronary artery disease involving [place] coronary artery of [place] heart without angina pectoris Take 1 Tab [...] Tablet Sublingual (Nitrostat)Indica tions:Coronary artery disease involving [place] coronary artery of [place] heart without angina pectoris,Old [place] (myocardial infarction) Place 1 Tablet under the tongue every 5 minutes as needed for Pain, Chest. 25 Tablet 5 3 Active Additional Information Patient not taking.Reported on 03/08/2023 Apixaban 5 MG Oral Tablet (Eliquis)Indicati ons:PAF (paroxysmal atrial fibrillation) ([facility]) Take 1 Tablet by mouth in the morning and 1 Tablet before bedtime. 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 goal ([facility]) use to inject lantus twice [...] Oral Tablet (Lipitor)Indicati ons:Coronary artery disease involving [place] coronary artery of [place] heart without angina pectoris,Dyslipid emia TAKE 1 TABLET DAILY IN THE MORNING 90 Tablet 3 3 Active Insulin Glargine Solostar 100 UNIT/ML Subcutaneous Solution Pen-injector (Lantus SoloStar)Indicati ons:DM type 2 causing renal disease, 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) INJECT 20 UNITS SUBCUTANEOUSLY TWICE DAILY 30 mL 2 3 Active Digoxin 125 MCG Oral Tablet (Lanoxin)Indicati ons:Chronic systolic heart failure (HCC),Coronary artery disease involving [place] coronary artery of [place] heart without angina pectoris Take 1 Tablet [...] single episode, in full remission 12/07/2018 [place] (myocardial infarction) 03/31/2018 Heart failure, systolic, due to CAD 03/31/2018 Lymphedema of both lower extremities 03/31/2018 Dyslipidemia 02/18/2018 Coronary artery disease invo lving [place] coronary artery of [place] heart without angina pectoris 12/10/2017 PAF (paroxysmal [...] mRNA, LNP-s, No Pre serve, 2-Dose Series (DotBlu) 07/23/2021,11/14/2020,10/24/2020 COVID-19, MRNA-LNP, 23-24, P F, 30 [...] Telephone Encounter - Sakshi Ashton RN - 10/29/2023 2:37 PM EDT Addendum noted to discharge summary today. Amoxicillin and Clarithromycin discontinued. Bismuth, Doxy and Flagyl added. Spoke with [facility], they did not send Amoxicillin or Clarithromycin. They did mail all others to patient yesterday. Patient called and notified of change, verbalizes understanding. Patient also reports taking prunes and Miralax yesterday, +BM today. 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 Specialist of Care interventions/Action Plan: 5 - 7 [...] Description 11/02/2023 11:00 AM EDT Office Visit [facility] [address] [facility], [place] [address] Jason West MD [address] [facility], [place] [address] 11/09/2023 11:45 AM EDT Imaging Radiology [address] [place] [address] 11/12/2023 1:00 PM EDT Hospital Encounter ENDO OSS[facility], Endoscopy Room [facility] [address] [place] [address] Fer Solano MD [address] [place] [address] 11/12/2023 1:00 PM EDT - 11/12/2023 2:00 PM EDT Surgery ENDO [facility], Endoscopy Room [facility] [address] [place] [phone] Fer Solano MD [address] [place] [address] ESOPHAGOGASTRODUODENOSCOPY (EGD), FLEXIBLE, TRANSORAL, ENDOSCOPIC ULTRASOUND 11/15/2023 11:30 AM EDT Office Visit Cardiology, [facility] [address] [place] [address] Aurelio Viera PA-C [address] [place] [address] 12/31/2023 2:40 PM EDT Office Visit [facility], [place] [address] [facility] [place] [phone] Jason West MD [address] [facility] [place] [address] 03/08/2024 10:00 AM EDT Cardiac Studies Cardiology, [facility] [address] [facility] [place] [address] [employer] Pacer [facility] [place] [address] Scheduled Procedures Name Priority Associated Diagnoses Date/Ti [...] Additional history exists CKD PHOS USE SMARTSET 94498 10/03/2023 03/0 09/2022, 03/17/2021, 08/18/2019, Additional history exists Depression Screening 12/03/2023 12/02/2022 CKD HGB USE SMARTSET 66689 03/08/202403/08, 10/02/2022, 07/29/2021, Additional history exists DIG [...] filedocumented as of this encounter Care Teams Development Editor Relationship Specialty Start Date End Date Jason West MD [address] [place] [address] PCP - General 02/06/03 documented as of this encounter
--- OUTSIDE RECORDS SUMMARY | 2023-12-21 09:01 | External Medical Summary | Summary of Care ---
Author Name Unknown Organization [facility] Address [address] [place] [address] Phone [phone] Care Team Providers Care Cable Tv Installer Name Role Phone Jason West MD Primary Care Provider +1- [phone] Encounter Details Date Type Department Care Team (Late st Contact Info) Description 10/26/2023 Orders Only Gastroenterology, [facility] [address] [place] [address] Frieda Mejia CRNP [address] [place] [address] Allergies Active Allergy Reactions Criticality Noted Date Comments Hydroxyzine Hcl 05/12/2012 halluzinating Cetirizine & Related 02/11/1999 HALLUCINATIONS documented as of this encounter (statuses as of 10/26/2023) Medications Medication Sig Dispensed Refills Start Date End Date Status MULTIVITAMIN/DOUGH MIXING MACHINE OPERATOR AL FORMULA TABS OR 1 TABLET DAILY 0 0 12/02/2001 Active SYSTANE PRESERVATIVE FREE 0.4-0.3 % OP SOLNIndications:Ot her anterior corneal dystrophies 1 gtt OU q2h WA 1 box 6 12/03/2008 Active CALCIUM 8564-3122 MG-UNIT PO CHEW Take 1 Tablet by mouth in the morning. 0 Active Cinnamon 500 MG Capsule Take 2 Capsules by mouth in the morning. 0 Active ONETOUCH ULTRASOFT LANCETS MISCIndications:DM type 2 causing renal disease ([facility]) Use as directed daily. Use up to four times a day as directed. Dx E11.9 3 Box Dosing Unit 3 09/13/2018 Active aspirin enteric coated 81 MG TBECIndications:Co ronary artery disease involving [place] coronary artery of [place] heart without angina pectoris Take 1 Tab [...] Tablet Sublingual (Nitrostat)Indicat ions:Coronary artery disease involving [place] coronary artery of [place] heart without angina pectoris,Old [place] (myocardial infarction) [...] systolic heart failure (HCC),Coronary artery disease involving [place] coronary artery of [place] heart without angina pectoris TAKE 1 TAB BY MOUTH SHORTLY BEFORE OR UPON RISING IN THE MORNING, AT MIDDAY, AND IN THE LATE AFTERNOON (NO LATER THAN 6PM) 270 Tablet 3 03/25/2023 Active Insulin Pen Needle 32G X 5 MMIndications:DM type 2 causing renal disease, not at goal ([facility]) use to inject lantus twice per day [...] Oral Tablet (Lipitor)Indicatio ns:Coronary artery disease involving [place] coronary artery of [place] heart without angina pectoris,Dyslipide mona TAKE 1 TABLET DAILY IN THE MORNING 90 Tablet 3 05/27/2023 Active Insulin Glargine Solostar 100 UNIT/ML Subcutaneous Solution Pen-injector (Lantus SoloStar)Indicatio ns:DM type 2 causing renal disease, not at goal ([facility]) INJECT 20 UNITS SUBCUTANEOUSLY TWICE DAILY 30 mL 2 07/08/2023 Active Digoxin 125 MCG Oral Tablet (Lanoxin)Indicatio ns:Chronic systolic heart failure (HCC),Coronary artery disease involving [place] coronary artery of [place] heart without angina pectoris Take 1 Tablet [...] as of this encounter (statuses as of 10/26/2023) Active Problems Problem Noted Date Diagnosed Date [...] Dyslipidemia 02/18/2018 Coronary artery disease invo lving [place] coronary artery of [place] heart without angina pectoris 12/10/2017 PAF (paroxysmal atrial fibrillation) 12/10/2017 Type 2 diabetes mellitus wit h hemoglobin A1c goal of less than 8.0% 09/08/2013 Overview: ICD-10 update of inactive term DJD, CERVICAL SPINE 04/12/2002 GENERAL OSTEOARTHROSIS documented as of this encounter (statuses as of 10/26/2023) Resolved Problems Problem Noted Date Diagnosed Date [...] as of this encounter (statuses as of 10/26/2023) Immunizations Name Administration Dates Next Due COVID-19 mRNA, LNP-s, No Pre serve, 2-Dose Series ([employer]) 07/23/2021,11/14/2020,10/24/2020 COVID-19, MRNA-LNP, 23-24, P F, 30 MCG/0.3 mL, 12 YRS AND ABOVE, IM (Zum[employer]-Comirnat) 05/26/2023 Covid-19, Mrna, Lnp-s, Pf, B ivalent, [...] 11/16/2023 10:00 AM EDT Office Visit Cardiology, [facility] [address] [place] [address] Nimo Sewell CRNP [address] [place] [address] 12/31/2023 2:40 PM EDT Office Visit [address] [place] [address] Jason West MD [address] [facility] [place] [address] 03/08/2024 10:00 AM EDT Cardiac Studies Cardiology, [facility] [address] [place] [address] [place] [address] [place] [address] Health Maintenance Due Date Last Done Comments Hepatitis C Screening 1963 Diabetic Foot Exam 03/17/2022 03/17/2021, 0 12/27/2019, 12/07/2018, Additional history exists Diabetic Eye Exam 08/15/2022 08/15/2021, , 03/28/2018, Additional history exists GFR 09/08/2023 03/08/2023, 03/0 09/2022, 01/13/2022, Additional history exists HbA1c 09/08/2023 03/08/2023, 03/0 09/2022, 01/13/2022, Additional history exists Albumin/Creatinine Ratio 10/03/202310/02/2 023, 08/28/2021, 11/18/2020, Additional history exists CKD PHOS USE SMARTSET 59000 10/03/2023 03/0 09/2022, 03/17/2021, 08/18/2019, Additional history exists Depression Screening 12/03/2023 12/02/2022 CKD HGB USE SMARTSET 73766 03/08/202403/08, 10/02/2022, 07/29/2021, Additional history exists DIG [...] Name Priority Date/Time Associated Diagnosis Comments CT CHEST W CONTRAST Routine 10/25/2023 documented in this encounter Results * CT CHEST W CONTRAST (10/25/2023) Anatomical Region Laterality Modality Chest, Body, Cardio Other 10/25/[address] documented in this encounter Care Teams Cable Tv Installer Relationship Specialty Start Date End Date Jason West MD [address] [place] [address] PCP - General 02/06/03 documented as of this encounter
--- OUTSIDE RECORDS SUMMARY | 2023-12-21 09:01 | External Medical Summary | Summary of Care ---
Author Name Unknown Organization [facility] Address [address] [place] [address] Phone [phone] Care Team Providers Care Safety Coordinator Name Role Phone Jason West MD Primary Care Provider +1- [phone] Encounter Details Date Type Department Care Team (Late st Contact Info) Description 10/22/2023 Result Scan Unspecified Department <No scans attached> Allergies Active Allergy Reactions Criticality Noted Date Comments Hydroxyzine Hcl 05/12/2012 halluzinating Cetirizine & Related 02/11/1999 HALLUCINATIONS documented as of this encounter (statuses as of 10/25/2023) Medications Medication Sig Dispensed Refills Start Date End Date Status MULTIVITAMIN/SKIP PIT WORKER AL FORMULA TABS OR 1 TABLET DAILY 0 0 12/02/2001 Active SYSTANE PRESERVATIVE FREE 0.4-0.3 % OP SOLNIndications:Ot her anterior corneal dystrophies 1 gtt OU q2h [place] 1 box 6 12/03/2008 Active CALCIUM 5462-6473 MG-UNIT PO CHEW Take 1 Tablet by [...] TBECIndications:Co ronary artery disease involving [place] coronary artery of [place] heart without angina pectoris Take 1 Tab [...] (Nitrostat)Indicat ions:Coronary artery disease involving [place] coronary artery of [place] heart without angina pectoris,Old [place] (myocardial infarction) Place 1 Tablet under the [...] failure (HCC),Coronary artery disease involving [place] coronary artery of [place] heart without angina pectoris TAKE 1 TAB [...] (Lipitor)Indicatio ns:Coronary artery disease involving [place] coronary artery of [place] heart without angina pectoris,Dyslipide mona TAKE 1 [...] failure (HCC),Coronary artery disease involving [place] coronary artery of [place] heart without angina pectoris Take 1 Tablet [...] as of this encounter (statuses as of 10/25/2023) Active Problems Problem Noted Date Diagnosed Date Chronic kidney disease, stage 3a 01/14/2021 Overview: Per CKD protocol Type 2 diabetes mellitus wit h stage 3a chronic kidney disease 12/10/2020 Overview: Per CKD protocol Chronic systolic heart failure 11/21/2020 DM type 2 causing renal disease, 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, in full remission 12/07/2018 [place] (myocardial infarction) 03/31/2018 Heart failure, systolic, due to CAD 03/31/2018 Lymphedema of both lower extremities 03/31/2018 Dyslipidemia 02/18/2018 Coronary artery disease invo lving [place] coronary artery of [place] heart without angina pectoris 12/10/2017 PAF (paroxysmal atrial fibrillation) 12/10/2017 Type 2 diabetes mellitus wit h hemoglobin A1c goal of less than 8.0% 09/08/2013 Overview: ICD-10 update of inactive term DJD, CERVICAL SPINE 04/12/2002 GENERAL OSTEOARTHROSIS documented as of this encounter (statuses as of 10/25/2023) Resolved Problems Problem Noted Date Diagnosed Date [...] as of this encounter (statuses as of 10/25/2023) Immunizations Name Administration Dates Next Due COVID-19 mRNA, LNP-s, No Pre serve, 2-Dose Series ([employer]ak) 07/23/2021,11/14/2020,10/24/2020 COVID-19, MRNA-LNP, 23-24, P F, 30 MCG/0.3 mL, 12 YRS AND ABOVE, IM ([employer] (STIE)-ComirnatWine Ring) 05/26/2023 Covid-19, Mrna, Lnp-s, Pf, B ivalent, 30 Mcg, IM, 12 yrs and above ([employer]ak) 05/26/2022 Pneumococcal Conjugate Vacc, 13 Valent (Prevnar) [...] Description 11/16/2023 10:00 AM EDT [facility] [address] [place] [address] Nimo Sewell CRNP [address] [place] [address] 12/31/2023 2:40 PM EDT Office Visit [facility] [address] [facility] [phone] Jason West MD [address] [facility] [place] [address] 03/08/2024 10:00 AM EDT Cardiac Studies Cardiology, [facility] [address] [place] [address] [facility] [address] [place] [address] Health Maintenance Due Date Last Done Comments Hepatitis C Screening 1963 Diabetic Foot Exam 03/17/2022 03/17/2021, 0 12/27/2019, 12/07/2018, Additional history exists Diabetic Eye Exam 08/15/2022 08/15/2021, , 03/28/2018, Additional history exists GFR 09/08/2023 03/08/2023, 03/0 09/2022, 01/13/2022, Additional history exists HbA1c 09/08/2023 03/08/2023, 03/0 09/2022, 01/13/2022, Additional history exists Albumin/Creatinine Ratio 10/03/2023 023, 08/28/2021, 11/18/2020, Additional history exists CKD PHOS USE SMARTSET 37001 10/03/2023 03/0 09/2022, 03/17/2021, 08/18/2019, Additional history exists Depression Screening 12/03/2023 12/02/2022 CKD HGB USE SMARTSET 19427 03/08/202403/08, 10/02/2022, 07/29/2021, Additional history exists DIG [...] Procedure Name Priority Date/Time Associated Diagnosis Comments RADIOLOGY SCANNED RESULT 10/22/2023 documented in this encounter Results * RADIOLOGY SCANNED RESULT (10/22/2023) 10/22/2023 No Physician Data Unknown DIAGNOSTIC RAD IOLOGY SERVICES documented in this encounter Care Teams Safety Coordinator Relationship Specialty Start Date End Date Jason West MD [address] [place] [address] PCP - General 02/06/03 documented as of this encounter
--- OUTSIDE RECORDS SUMMARY | 2023-12-21 09:01 | External Medical Summary | Summary of Care ---
Author Name Unknown Organization [facility] Address [address] [place] [address] Phone [phone] Care Team Providers Care Storage And Backup Administrator Name Role Phone Jason West MD Primary Care Provider +1- [phone] Encounter Details Date Type Department Care Team (Late st Contact Info) Description 10/25/2023 Result Scan Unspecified Department Whitney Aranda MD [address] [place] [address] <No scans attached> Allergies Active Allergy Reactions Criticality Noted Date Comments Hydroxyzine Hcl 05/12/2012 halluzinating Cetirizine & Related 02/11/1999 HALLUCINATIONS documented as of this encounter (statuses as of 10/28/2023) Medications Medication Sig Dispensed Refills Start Date End Date Status MULTIVITAMIN/PLASTIC TILE LAYER AL FORMULA TABS OR 1 TABLET DAILY 0 0 12/02/2001 Active SYSTANE PRESERVATIVE FREE 0.4-0.3 % OP SOLNIndications:Ot her anterior corneal dystrophies 1 gtt OU q2h WA 1 box 6 12/03/2008 Active CALCIUM 0581-0744 MG-UNIT PO CHEW Take 1 Tablet by [...] 81 MG TBECIndications:Co ronary artery disease involving [place] coronary artery of [place] heart without angina pectoris Take 1 Tab [...] Tablet Sublingual (Nitrostat)Indicat ions:Coronary artery disease involving [place] coronary artery of [place] heart without angina pectoris,Old [place] (myocardial infarction) [...] systolic heart failure (HCC),Coronary artery disease involving [place] coronary artery of [place] heart without angina pectoris TAKE 1 TAB [...] Oral Tablet (Lipitor)Indicatio ns:Coronary artery disease involving [place] coronary artery of [place] heart without angina pectoris,Dyslipide mona TAKE 1 TABLET DAILY IN THE MORNING 90 Tablet 3 05/27/2023 Active Insulin Glargine Solostar 100 UNIT/ML Subcutaneous Solution Pen-injector (Lantus SoloStar)Indicatio ns:DM type 2 causing renal disease, not at goal ([facility]) INJECT 20 UNITS SUBCUTANEOUSLY TWICE DAILY 30 mL 2 07/08/2023 Active Digoxin 125 MCG Oral Tablet (Lanoxin)Indicatio ns:Chronic systolic heart failure ([facility]),Coronary artery disease involving [place] coronary artery of [place] heart without angina pectoris Take 1 Tablet [...] Dyslipidemia 02/18/2018 Coronary artery disease invo lving [place] coronary artery of [place] heart without angina pectoris 12/10/2017 PAF (paroxysmal [...] mRNA, LNP-s, No Pre serve, 2-Dose Series ([employer]) 07/23/2021,11/14/2020,10/24/2020 COVID-19, MRNA-LNP, 23-24, P F, 30 MCG/0.3 mL, 12 YRS AND ABOVE, IM ([employer] 05/26/2023 Covid-19, Mrna, Lnp-s, Pf, B ivalent, [...] Description 11/02/2023 11:00 AM EDT Office Visit Family [facility] [address] [facility] [place] [address] Jason West MD [address] [facility] [place] [address] 11/16/2023 10:00 AM EDT Office Visit Cardiology, [facility] [address] [address] Nimo Sewell CRNP [address] [place] [address] 12/31/2023 2:40 PM EDT Office Visit Family [facility] [place] [address] [place] [phone] Jason West MD [address] [facility] [place] [address] 03/08/2024 10:00 AM EDT Cardiac Studies Cardiology, [facility] [address] [place] [address] [facility] [address] [place] [address] Health Maintenance Due Date Last Done Comments Hepatitis C Screening 1963 Diabetic Foot Exam 03/17/2022 03/17/2021, 0 12/27/2019, 12/07/2018, Additional history exists Diabetic Eye Exam 08/15/2022 08/15/2021, , 03/28/2018, Additional history exists GFR 09/08/2023 03/08/2023, 03/0 09/2022, 01/13/2022, Additional history exists HbA1c 09/08/2023 03/08/2023, 03/0 09/2022, 01/13/2022, Additional history exists Albumin/Creatinine Ratio 10/03/20232 023, 08/28/2021, 11/18/2020, Additional history exists CKD PHOS USE SMARTSET 03043 10/03/2023 03/0 09/2022, 03/17/2021, 08/18/2019, Additional history exists Depression Screening 12/03/2023 12/02/2022 CKD HGB USE SMARTSET 55100 03/08/202403/08, 10/02/2022, 07/29/2021, Additional history exists DIG [...] Procedure Name Priority Date/Time Associated Diagnosis Comments PATHOLOGY SCANNED RESULT 10/25/2023 documented in this encounter Results * PATHOLOGY SCANNED RESULT (10/25/2023) 10/25/2023 Whitney Aranda MD PATHOLOGY documented in this encounter Care Teams Storage And Backup Administrator Relationship Specialty Start Date End Date Jason West MD [address] [place] [address] PCP - General 02/06/03 documented as of this encounter
--- OUTSIDE RECORDS SUMMARY | 2023-12-21 09:01 | External Medical Summary | Summary of Care ---
Author Name Unknown Organization [facility] Address [address] [place] [address] Phone [phone] Care Team Providers Care Cheese Weigher Name Role Phone Jason West MD Primary Care Provider +1- [phone] Reason for Visit * Reason Onset Date Comments Appointment 10/22/2023 Encounter Details Date Type Department Care Team (Late st Contact Info) Description 10/22/2023 Telephone Gastroenterology, [facility] [address] [place] [address] Frieda Mejia CRNP [address] [place] [address] Appointment Allergies Active Allergy Reactions Criticality Noted Date Comments Hydroxyzine Hcl 05/12/2012 halluzinating Cetirizine & Related 02/11/1999 HALLUCINATIONS documented as of this encounter (statuses as of 10/27/2023) Medications Medication Sig Dispensed Refills Start Date End Date Status MULTIVITAMIN/MATLAB DEVELOPER AL FORMULA TABS OR 1 TABLET DAILY 0 0 12/02/2001 Active SYSTANE PRESERVATIVE FREE 0.4-0.3 % OP SOLNIndications:Ot her anterior corneal dystrophies 1 gtt OU q2h WA 1 box 6 12/03/2008 Active CALCIUM 7358-7318 MG-UNIT PO CHEW Take 1 Tablet by mouth in the morning. 0 Active Cinnamon 500 MG Capsule Take 2 Capsules by mouth in the morning. 0 Active ONETOUCH ULTRASOFT LANCETS MISCIndications:DM type 2 causing renal disease ([facility]) Use as directed daily. Use up to four times a day as directed. Dx E11.9 3 Box Dosing Unit 3 09/13/2018 Active aspirin enteric coated 81 MG TBECIndications:Co ronary artery disease involving [place] coronary artery of [place] heart without angina pectoris Take 1 Tab [...] Tablet Sublingual (Nitrostat)Indicat ions:Coronary artery disease involving [place] coronary artery of [place] heart without angina pectoris,Old [place] (myocardial infarction) [...] systolic heart failure (HCC),Coronary artery disease involving [place] coronary artery of [place] heart without angina pectoris TAKE 1 TAB BY MOUTH SHORTLY BEFORE OR UPON RISING IN THE MORNING, AT MIDDAY, AND IN THE LATE AFTERNOON (NO LATER THAN 6PM) 270 Tablet 3 03/25/2023 Active Insulin Pen Needle 32G X 5 MMIndications:DM type 2 causing renal disease, not at goal ([facility]) use to inject lantus twice [...] Oral Tablet (Lipitor)Indicatio ns:Coronary artery disease involving [place] coronary artery of [place] heart without angina pectoris,Dyslipide mona TAKE 1 TABLET DAILY IN THE MORNING 90 Tablet 3 05/27/2023 Active Insulin Glargine Solostar 100 UNIT/ML Subcutaneous Solution Pen-injector (Lantus SoloStar)Indicatio ns:DM type 2 causing renal disease, 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) INJECT 20 UNITS SUBCUTANEOUSLY TWICE DAILY 30 mL 2 07/08/2023 Active Digoxin 125 MCG Oral Tablet (Lanoxin)Indicatio ns:Chronic systolic heart failure (HCC),Coronary artery disease involving [place] coronary artery of [place] heart without angina pectoris Take 1 Tablet [...] as of this encounter (statuses as of 10/27/2023) Active Problems Problem Noted Date Diagnosed Date [...] Dyslipidemia 02/18/2018 Coronary artery disease invo lving [place] coronary artery of [place] heart without angina pectoris 12/10/2017 PAF (paroxysmal atrial fibrillation) 12/10/2017 Type 2 diabetes mellitus wit h hemoglobin A1c goal of less than 8.0% 09/08/2013 Overview: ICD-10 update of inactive term DJD, CERVICAL SPINE 04/12/2002 GENERAL OSTEOARTHROSIS documented as of this encounter (statuses as of 10/27/2023) Resolved Problems Problem Noted Date Diagnosed Date [...] as of this encounter (statuses as of 10/27/2023) Immunizations Name Administration Dates Next Due COVID-19 mRNA, LNP-s, No Pre serve, 2-Dose Series ([employer]) 07/23/2021,11/14/2020,10/24/2020 COVID-19, MRNA-LNP, 23-24, P F, 30 MCG/0.3 mL, 12 YRS AND ABOVE, IM ([employer]) 05/26/2023 Covid-19, Mrna, Lnp-s, Pf, B ivalent, 30 Mcg, IM, 12 yrs and above ([employer]) 05/26/2022 Diptheria/Tetanus (Adult) 05/02/1992 Pneumococcal Conjugate Vacc, [...] Telephone Encounter - Elvie Mendoza OSA - 10/27/2023 2:11 PM EDT See tele enc from 10/27/23, asking if ov is needed message sent to Frieda. * Telephone Encounter - Frieda Mejia CRNP - 10/22/2023 9:54 AM EDT Pt admitted at [facility] for syncope, getting workup. Needs OP egd evaluation for dysphagia, pls arrange KHADAR Levi documented in this encounter Plan of Treatment Upcoming Encounters Date Type Department Care Team (Late st Contact Info) Description 11/02/2023 11:00 AM EDT Office Visit [facility] [address] [facility] [phone] Jason West MD [address] [place] [facility] [place] [address] 11/16/2023 10:00 AM EDT Office Visit Cardiology, [facility] [address] [facility] [place] [address] Nimo Sewell CRNP [address] [facility] [place] [address] 12/31/2023 2:40 PM EDT Office Visit [facility] [address] [facility] [phone] Jason West MD [address] [facility] [address] 03/08/2024 10:00 AM EDT Cardiac Studies Cardiology, [facility] [address] [facility] [place] [address] [facility] [address] [place] [address] Scheduled Orders Name Type Priority Associated Diagnoses Orde r Schedule EGD, FLEXIBLE, DIAGNOSTIC Procedures Routine Dysphagia, unspecified type Ordered: 10/22/2023 Health Maintenance Due Date Last Done Comments Hepatitis C Screening 1963 Diabetic Foot Exam 03/17/2022 03/17/2021, 0 12/27/2019, 12/07/2018, Additional history exists Diabetic Eye Exam 08/15/2022 08/15/2021, , 03/28/2018, Additional history exists GFR 09/08/2023 03/08/2023, 03/0 09/2022, 01/13/2022, Additional history exists HbA1c 09/08/2023 03/08/2023, 03/0 09/2022, 01/13/2022, Additional history exists Albumin/Creatinine Ratio 10/03/2023 023, 08/28/2021, 11/18/2020, Additional history exists CKD PHOS USE SMARTSET 50127 10/03/2023 03/0 09/2022, 03/17/2021, 08/18/2019, Additional history exists Depression Screening 12/03/2023 12/02/2022 CKD HGB USE SMARTSET 08810 03/08/202403/08, 10/02/2022, 07/29/2021, Additional history exists DIG [...] as of this encounter Visit Diagnoses Diagnosis Dysphagia, unspecified type- Primary documented in this encounter Care Teams Cheese Weigher Relationship Specialty Start Date End Date Jason West MD [address] [place] [address] PCP - General 02/06/03 documented as of this encounter
--- OUTSIDE RECORDS SUMMARY | 2023-12-21 09:01 | External Medical Summary | Summary of Care ---
Author Name Unknown Organization [facility] Address [address] [place] [address] Phone [phone] Care Team Providers Care Asphalt Plant Operator Name Role Phone Jason West MD Primary Care Provider +1- [phone] Reason for Referral * Precert (Within 10 days (routine)) - Pending Review Specialty Diagnoses / Procedures Referred By Abdullahi melo Referred To Contact Radiology Diagnoses Esophageal mass Procedures PET CT WHOLE BODY FDG Whitney Aranda MD [address] [place] [address] Referral ID Status Reason Start Date Expiration Date V isits Requested Visits Authorized [id number] Pending Review 11/10/2023 999 999 Reason for Visit * Reason Onset Date Comments Appointment 10/27/2023 Encounter Details Date Type Department Care Team (Late st Contact Info) Description 10/27/2023 Telephone Gastroenterology, [facility] [address] [place] [address] Whitney Aranda MD [address] [place] [address] Appointment Allergies Active Allergy Reactions Criticality Noted Date Comments Hydroxyzine Hcl 05/12/2012 halluzinating Cetirizine & Related 02/11/1999 HALLUCINATIONS documented as of this encounter (statuses as of 10/27/2023) Medications Medication Sig Dispensed Refills Start Date End Date Status MULTIVITAMIN/STYLIST APPRENTICE AL FORMULA TABS OR 1 TABLET DAILY 0 0 12/02/2001 Active SYSTANE PRESERVATIVE FREE 0.4-0.3 % OP SOLNIndications:Ot her anterior corneal dystrophies 1 gtt OU q2h WA 1 box 6 12/03/2008 Active CALCIUM 6492-4423 MG-UNIT PO CHEW Take 1 Tablet by [...] 81 MG TBECIndications:Co ronary artery disease involving [place] coronary artery of [place] heart without angina pectoris Take 1 Tab [...] Tablet Sublingual (Nitrostat)Indicat ions:Coronary artery disease involving [place] coronary artery of [place] heart without angina pectoris,Old [place] (myocardial infarction) [...] systolic heart failure (HCC),Coronary artery disease involving [place] coronary artery of [place] heart without angina pectoris TAKE 1 TAB [...] Oral Tablet (Lipitor)Indicatio ns:Coronary artery disease involving [place] coronary artery of [place] heart without angina pectoris,Dyslipide mona TAKE 1 [...] systolic heart failure (HCC),Coronary artery disease involving [place] coronary artery of [place] heart without angina pectoris Take 1 Tablet [...] Dyslipidemia 02/18/2018 Coronary artery disease invo lving [place] coronary artery of [place] heart without angina pectoris 12/10/2017 PAF (paroxysmal [...] mRNA, LNP-s, No Pre serve, 2-Dose Series ([employer]) 07/23/2021,11/14/2020,10/24/2020 COVID-19, MRNA-LNP, 23-24, P F, 30 [...] encounter Miscellaneous Notes * Telephone Encounter - Frieda Mejia CRNP - 10/27/2023 2:37 PM EDT GI notes from [facility] reviewed. She was seen by Dr. Aranda & Rachel prior to DC. Pt doesn'tnot need outpt EGD but needs EUS. Pls schedule EUS and then f/u in GI clinic. KHADAR Levi . * Telephone Encounter - Laurie Dorman OSA - 10/27/2023 12:48 PM EDT Ciara was discharged today from [facility] and they would like her to see Dr Aranda. Please advise. documented in this encounter Plan of Treatment Upcoming Encounters Date Type Department Care Team (Late st Contact Info) Description 11/02/2023 11:00 AM EDT [address] [phone] Jason West MD [address] [place] [facility] [place] [place] [address] 11/16/2023 10:00 AM EDT Office Visit Cardiology, [facility] [address] [place] [address] Nimo Sewell CRNP [address] [place] [address] 12/31/2023 2:40 PM EDT Office Visit [place] [address] [facility] [phone] Jason West MD [address] [place] [facility] [place] [place] [address] 03/08/2024 10:00 AM EDT Cardiac Studies Cardiology, [facility] [address] [place] [address] [place] [address] [place] [address] Scheduled Orders Name Type Priority Associated Diagnoses [...] Additional history exists CKD PHOS USE SMARTSET 16027 10/03/2023 03/0 09/2022, 03/17/2021, 08/18/2019, Additional history exists Depression Screening 12/03/2023 12/02/2022 CKD HGB USE SMARTSET 94782 03/08/202403/08, 10/02/2022, 07/29/2021, Additional history exists DIG [...] esophagus documented in this encounter Care Teams Asphalt Plant Operator Relationship Specialty Start Date End Date Jason West MD [address] [place] [address] PCP - General 02/06/03 documented as of this encounter
--- OUTSIDE RECORDS SUMMARY | 2023-12-21 09:01 | External Medical Summary | Summary of Care ---
Author Name Unknown Organization [facility] Address [address] [place] [address] Phone [phone] Care Team Providers Care Business Control Specialist Name Role Phone Jason West MD Primary Care Provider +1- [phone] Encounter Details Date Type Department Care Team (Late st Contact Info) Description 10/25/2023 Orders Only Gastroenterology, [facility] [address] [facility] [place] [address] Whitney Aranda MD [address] [place] [address] Allergies Active Allergy Reactions Criticality Noted Date Comments Hydroxyzine Hcl 05/12/2012 halluzinating Cetirizine & Related 02/11/1999 HALLUCINATIONS documented as of this encounter (statuses as of 10/25/2023) Medications Medication Sig Dispensed Refills Start Date End Date Status MULTIVITAMIN/TV PRODUCTION ASSISTANT AL FORMULA TABS OR 1 TABLET DAILY 0 0 12/02/2001 Active SYSTANE PRESERVATIVE FREE 0.4-0.3 % OP SOLNIndications:Ot her anterior corneal dystrophies 1 gtt OU q2h WA 1 box 6 12/03/2008 Active CALCIUM 8747-2233 MG-UNIT PO CHEW Take 1 Tablet by mouth in the morning. 0 Active Cinnamon 500 MG Capsule Take 2 Capsules by mouth in the morning. 0 Active ONETOUCH ULTRASOFT LANCETS MISCIndications:DM type 2 causing renal disease ([facility]) Use as directed daily. Use up to four times a day as directed. Dx E11.9 3 Box Dosing Unit 3 09/13/2018 Active aspirin enteric coated 81 MG TBECIndications:Co ronary artery disease involving [place] coronary artery of [place] heart without angina pectoris Take 1 Tab [...] Tablet Sublingual (Nitrostat)Indicat ions:Coronary artery disease involving [place] coronary artery of [place] heart without angina pectoris,Old [place] (myocardial infarction) [...] systolic heart failure (HCC),Coronary artery disease involving [place] coronary artery of [place] heart without angina pectoris TAKE 1 TAB [...] Oral Tablet (Lipitor)Indicatio ns:Coronary artery disease involving [place] coronary artery of [place] heart without angina pectoris,Dyslipide mona TAKE 1 TABLET DAILY IN THE MORNING 90 Tablet 3 05/27/2023 Active Insulin Glargine Solostar 100 UNIT/ML Subcutaneous Solution Pen-injector (Lantus SoloStar)Indicatio ns:DM type 2 causing renal disease, 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) INJECT 20 UNITS SUBCUTANEOUSLY TWICE DAILY 30 mL 2 07/08/2023 Active Digoxin 125 MCG Oral Tablet (Lanoxin)Indicatio ns:Chronic systolic heart failure (HCC),Coronary artery disease involving [place] coronary artery of [place] heart without angina pectoris Take 1 Tablet [...] Dyslipidemia 02/18/2018 Coronary artery disease invo lving [place] coronary artery of [place] heart without angina pectoris 12/10/2017 PAF (paroxysmal [...] mRNA, LNP-s, No Pre serve, 2-Dose Series ([facility]) 07/23/2021,11/14/2020,10/24/2020 COVID-19, MRNA-LNP, 23-24, P F, 30 MCG/0.3 mL, 12 YRS AND ABOVE, IM ([employer]-Comirnat) 05/26/2023 Covid-19, Mrna, Lnp-s, Pf, B ivalent, [...] 11/16/2023 10:00 AM EDT Office Visit Cardiology, [facility] [address] [place] [address] Nimo Sewell CRNP [address] [place] [address] 12/31/2023 2:40 PM EDT Office Visit [address] [place] [address] Jason West MD [address] [facility] [place] [address] 03/08/2024 10:00 AM EDT Cardiac Studies Cardiology, [facility] [address] [place] [address] [place] [address] [place] [address] Health Maintenance Due Date Last Done Comments Hepatitis C Screening 1963 Diabetic Foot Exam 03/17/2022 03/17/2021, 0 12/27/2019, 12/07/2018, Additional history exists Diabetic Eye Exam 08/15/2022 08/15/2021, , 03/28/2018, Additional history exists GFR 09/08/2023 03/08/2023, 03/0 09/2022, 01/13/2022, Additional history exists HbA1c 09/08/2023 03/08/2023, 03/0 09/2022, 01/13/2022, Additional history exists Albumin/Creatinine Ratio 10/03/202310/02/2 023, 08/28/2021, 11/18/2020, Additional history exists CKD PHOS USE SMARTSET 05555 10/03/2023 03/0 09/2022, 03/17/2021, 08/18/2019, Additional history exists Depression Screening 12/03/2023 12/02/2022 CKD HGB USE SMARTSET 85665 03/08/202403/08, 10/02/2022, 07/29/2021, Additional history exists DIG [...] Procedure Name Priority Date/Time Associated Diagnosis Comments UPPER GI ENDOSCOPY 10/25/2023 documented in this encounter Results * UPPER GI ENDOSCOPY (10/25/2023) 10/25/2023 Whitney Aranda MD GASTRO UPPER documented in this encounter Care Teams Business Control Specialist Relationship Specialty Start Date End Date Jason West MD [address] [place] [address] PCP - General 02/06/03 documented as of this encounter
--- OUTSIDE RECORDS SUMMARY | 2023-12-21 09:01 | External Medical Summary | Summary of Care ---
Author Name Unknown Organization [facility] Address [address] [place] [address] Phone [phone] Care Team Providers Care Dietetic Aide Name Role Phone Jason West MD Primary Care Provider [phone]- [phone] Encounter Details Date Type Department Care Team (Late st Contact Info) Description 10/25/2023 Result Scan Unspecified Department Rachel Bruner CRNP [address] [place] [address] <No scans attached> Allergies Active Allergy Reactions Criticality Noted Date Comments Hydroxyzine Hcl 05/12/2012 halluzinating Cetirizine & Related 02/11/1999 HALLUCINATIONS documented as of this encounter (statuses as of 10/26/2023) Medications Medication Sig Dispensed Refills Start Date End Date Status MULTIVITAMIN/IMPERSONATOR CHARACTER AL FORMULA TABS OR 1 TABLET DAILY 0 0 12/02/2001 Active SYSTANE PRESERVATIVE FREE 0.4-0.3 % OP SOLNIndications:Ot her anterior corneal dystrophies 1 gtt OU q2h WA 1 box 6 12/03/2008 Active CALCIUM 8221-9843 MG-UNIT PO CHEW Take 1 Tablet by [...] 81 MG TBECIndications:Co ronary artery disease involving [place] coronary artery of [place] heart without angina pectoris Take 1 Tab [...] Tablet Sublingual (Nitrostat)Indicat ions:Coronary artery disease involving [place] coronary artery of [place] heart without angina pectoris,Old [place] (myocardial infarction) [...] systolic heart failure (HCC),Coronary artery disease involving [place] coronary artery of [place] heart without angina pectoris TAKE 1 TAB [...] Oral Tablet (Lipitor)Indicatio ns:Coronary artery disease involving [place] coronary artery of [place] heart without angina pectoris,Dyslipide mona TAKE 1 TABLET DAILY IN THE MORNING 90 Tablet 3 05/27/2023 Active Insulin Glargine Solostar 100 UNIT/ML Subcutaneous Solution Pen-injector (Lantus SoloStar)Indicatio ns:DM type 2 causing renal disease, 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) INJECT 20 UNITS SUBCUTANEOUSLY TWICE DAILY 30 mL 2 07/08/2023 Active Digoxin 125 MCG Oral Tablet (Lanoxin)Indicatio ns:Chronic systolic heart failure (HCC),Coronary artery disease involving [place] coronary artery of [place] heart without angina pectoris Take 1 Tablet [...] Dyslipidemia 02/18/2018 Coronary artery disease invo lving [place] coronary artery of [place] heart without angina pectoris 12/10/2017 PAF (paroxysmal [...] mRNA, LNP-s, No Pre serve, 2-Dose Series ([employer]) 07/23/2021,11/14/2020,10/24/2020 COVID-19, MRNA-LNP, 23-24, P F, 30 MCG/0.3 mL, 12 YRS AND ABOVE, IM (HomeViva-Comirnat) 05/26/2023 Covid-19, Mrna, Lnp-s, Pf, B ivalent, [...] 11/16/2023 10:00 AM EDT Office Visit Cardiology, [facility] [address] [facility] [place] [address] Nimo Sewell CRNP [address] [place] [address] 12/31/2023 2:40 PM EDT Office Visit [facility] [address] [place] [facility] [facility] [place] [phone] Jason West MD [address] [facility] [place] [address] 03/08/2024 10:00 AM EDT Cardiac Studies Cardiology, [facility] [address] [facility] [place] [address] [place], Pacer [facility] [address] [place] [address] Health Maintenance Due Date Last Done Comments Hepatitis C Screening 1963 Diabetic Foot Exam 03/17/2022 03/17/2021, 0 12/27/2019, 12/07/2018, Additional history exists Diabetic Eye Exam 08/15/2022 08/15/2021, , 03/28/2018, Additional history exists GFR 09/08/2023 03/08/2023, 03/0 09/2022, 01/13/2022, Additional history exists HbA1c 09/08/2023 03/08/2023, 03/0 09/2022, 01/13/2022, Additional history exists Albumin/Creatinine Ratio 10/03/202310/02/2 023, 08/28/2021, 11/18/2020, Additional history exists CKD PHOS USE SMARTSET 52384 10/03/2023 03/0 09/2022, 03/17/2021, 08/18/2019, Additional history exists Depression Screening 12/03/2023 12/02/2022 CKD HGB USE SMARTSET 85833 03/08/202403/08, 10/02/2022, 07/29/2021, Additional history exists DIG [...] Date/Time Associated Diagnosis Comments RADIOLOGY SCANNED RESULT 10/25/2023 documented in this encounter Results * RADIOLOGY SCANNED RESULT (10/25/2023) 10/25/2023 Rachel [facility] documented in this encounter Care Teams Dietetic Aide Relationship Specialty Start Date End Date Jason West MD [address] [place] [address] PCP - General 02/06/03 documented as of this encounter
--- OUTSIDE RECORDS SUMMARY | 2023-12-21 09:02 | External Medical Summary | Summary of Care ---
Author Name Unknown Organization [facility] Address [address] [place] [address] Phone [phone] Care Team Providers Care Machinist Helper Marine Name Role Phone Jason West MD Primary Care Provider [phone]- [phone] Reason for Visit * Reason Onset Date Comments Appointment 10/22/2023 Encounter Details Date Type Department Care Team (Late st Contact Info) Description 10/22/2023 Telephone Gastroenterology, [facility] [address] [place] [address] Frieda Mejia CRNP [address] [place] [address] Appointment Allergies Active Allergy Reactions Criticality Noted Date Comments Hydroxyzine Hcl 05/12/2012 halluzinating Cetirizine & Related 02/11/1999 HALLUCINATIONS documented as of this encounter (statuses as of 10/22/2023) Medications Medication Sig Dispensed Refills Start Date End Date Status MULTIVITAMIN/INFORMATION ARCHITECT AL FORMULA TABS OR 1 TABLET DAILY 0 0 12/02/2001 Active SYSTANE PRESERVATIVE FREE 0.4-0.3 % OP SOLNIndications:Ot her anterior corneal dystrophies 1 gtt OU q2h [place] 1 box 6 12/03/2008 Active CALCIUM 3897-2246 MG-UNIT PO CHEW Take 1 Tablet by mouth in the morning. 0 Active Cinnamon 500 MG Capsule Take 2 Capsules by mouth in the morning. 0 Active ONETOUCH ULTRASOFT LANCETS MISCIndications:DM type 2 causing renal disease ([facility]) Use as directed daily. Use up to four times a day as directed. Dx E11.9 3 Box Dosing Unit 3 09/13/2018 Active aspirin enteric coated 81 MG TBECIndications:Co ronary artery disease involving [place] coronary artery of ramona heart without angina pectoris Take 1 Tab [...] Tablet Sublingual (Nitrostat)Indicat ions:Coronary artery disease involving [place] coronary artery of ramona heart without angina pectoris,Old [place] (myocardial infarction) [...] systolic heart failure (HCC),Coronary artery disease involving [place] coronary artery of ramona heart without angina pectoris TAKE 1 TAB [...] Oral Tablet (Lipitor)Indicatio ns:Coronary artery disease involving [place] coronary artery of ramona heart without angina pectoris,Dyslipide mona TAKE 1 TABLET DAILY IN THE MORNING 90 Tablet 3 05/27/2023 Active Insulin Glargine Solostar 100 UNIT/ML Subcutaneous Solution Pen-injector (Lantus SoloStar)Indicatio ns:DM type 2 causing renal disease, 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) INJECT 20 UNITS SUBCUTANEOUSLY TWICE DAILY 30 mL 2 07/08/2023 Active Digoxin 125 MCG Oral Tablet (Lanoxin)Indicatio ns:Chronic systolic heart failure (HCC),Coronary artery disease involving [place] coronary artery of ramona heart without angina pectoris Take 1 Tablet [...] as of this encounter (statuses as of 10/22/2023) Active Problems Problem Noted Date Diagnosed Date [...] Dyslipidemia 02/18/2018 Coronary artery disease invo lving ramona coronary artery of ramona heart without angina pectoris 12/10/2017 PAF (paroxysmal atrial fibrillation) 12/10/2017 Type 2 diabetes mellitus wit h hemoglobin A1c goal of less than 8.0% 09/08/2013 Overview: ICD-10 update of inactive term DJD, CERVICAL SPINE 04/12/2002 GENERAL OSTEOARTHROSIS documented as of this encounter (statuses as of 10/22/2023) Resolved Problems Problem Noted Date Diagnosed Date [...] as of this encounter (statuses as of 10/22/2023) Immunizations Name Administration Dates Next Due COVID-19 mRNA, LNP-s, No Pre serve, 2-Dose Series (Commissioner) 07/23/2021,11/14/2020,10/24/2020 COVID-19, MRNA-LNP, 23-24, P F, 30 [...] 10/22/2023 9:54 AM EDT Pt admitted at [facility] for syncope, getting workup. Needs OP egd evaluation for dysphagia, pls KHADAR Allison documented in this encounter Plan of Treatment Upcoming Encounters Date Type Department Care Team (Late st Contact Info) Description 11/16/2023 10:00 AM EDT Office Visit Cardiology, [facility] [address] [facility] [place] [address] Nimo Sewell CRNP [address] [place] [address] 12/31/2023 2:40 PM EDT Office Visit [facility] [address] [facility] [phone] Jason West [facility] [address] [facility] [address] 03/08/2024 10:00 AM EDT Cardiac Studies [facility]iology, [facility] [place] [address] [facility] [address] [facility] [place] [address] Scheduled Orders Name Type Priority Associated Diagnoses [...] Additional history exists CKD PHOS USE SMARTSET 67711 10/03/2023 03/0 09/2022, 03/17/2021, 08/18/2019, Additional history exists Depression Screening 12/03/2023 12/02/2022 CKD HGB USE SMARTSET 10542 03/08/202403/08, 10/02/2022, 07/29/2021, Additional history exists DIG [...] Primary documented in this encounter Care Teams Machinist Helper Marine Relationship Specialty Start Date End Date Jason West MD [address] [place] [address] PCP - General 02/06/03 documented as of this encounter
--- NOTE | 2023-12-21 10:01 | Gastrointestinal Consultation ---
Date of Consultation December 21, 2023 Assessment & Plan (1) Melena: (2) Anemia: Plan Patient is a 78 year old female with recent diagnosis of esophageal cancer who presented to the ED after she had outpatient labs with hgb in the 6 range. reports 3-4 weeks of dark stools. no bowel movements reported since admission with last bowel movements being Wednesday. As such, this does not sound like an active bleed. Likely her bleeding is related to her known esophageal cancer. I discussed case with Dr. Evans. Unsure of role for an EGD at this time. she may require surgery for her esophageal mass. - continue with PPI drip. - monitor hgb/hct. transfuse as needed. - check stool h pylori to confirm eradication. Supervising Physician Co-Signing Physician Notes Agree with MILAN Velasquez as above Interviewed and examined patient and agree with above Abd: Soft, NT, ND, +BS No overt GI bleeding at present, and in fact no BM's for the past 2 days Continue current therapy and supportive care History of Present Illness Reason for Consultation: UGIB Requesting Physician: Jamison Conner MD Attending Physician: Mary Anne Rowley MD History of Present Illness Patient is a 78 year old female with a past medical history significant for esophageal cancer diagnosed October 2023, planned for chemo and radiation starting next week, who presented to the ED after having outpatient labs showing a hgb in the 6 range. she admits to dark stools over the past 3-4 weeks. she had rectal exam in the ED showing dark stools and tested heme positive. she tells me she tends to move her bowels about 4 times a week with her last bowel movement being 2 days ago. she tells me that she does a liquid diet given difficulty with swallowing related to her esophageal cancer. Patient tells me that she is following with Oncology at [facility] and at the current time there is no plan for any surgery. She was planned to start chemo and radiation next week. she did have h pylori on her last EGD as well that was treated. unclear if eradication was confirmed. Patient denies any current issues with nausea, vomiting, heartburn, abdominal pain, change in bowels, or bright red blood per rectum. Allergies Allergy/AdvReac Type Severity Reaction Status Date / Time cetirizine AdvReac Intermediate Hallucinati Verified 12/20/23 20:54 ng hydroxyzine AdvReac Intermediate Hallucinati Verified 12/20/23 20:54 ng Home Medications Medication Instructions Recorded Confirmed Type apixaban 5 mg tablet (Eliquis) 5 mg PO AMHS 06/18/18 12/20/23 History atorvastatin 40 mg tablet 40 mg PO QAM 06/18/18 12/20/23 History insulin glargine 100 unit/mL (3 20 unit subcut BIDM 06/18/18 12/20/23 History mL) subcutaneous pen (Lantus Solostar U-100 Insulin) multivitamin 1 tab PO QDL 06/18/18 12/20/23 History nitroglycerin 0.4 mg sublingual 0.4 mg sublingual DIRECTED PRN 06/18/18 12/20/23 History tablet (Nitrostat) Chest Pain oxybutynin chloride 5 mg tablet 5 mg PO BID 06/18/18 12/20/23 History glipizide 5 mg tablet 5 mg PO BIDM 04/11/20 12/20/23 History acetaminophen 500 mg tablet 1,000 mg PO TID PRN PAIN/FEVER 05/18/22 12/20/23 History (Tylenol Extra Strength) aspirin 81 mg tablet,delayed 81 mg PO QAM 05/18/22 12/20/23 History release cinnamon bark 500 mg capsule 1,000 mg PO QDD 05/18/22 12/20/23 History (Cinnamon) magnesium oxide 400 mg PO QDL 05/18/22 12/20/23 History peg 400-propylene glycol (PF) 0.4 1 drp OPB DAILY PRN Dry Eyes 05/18/22 12/20/23 History %-0.3 % eye drops in a dropperette (Systane (PF)) midodrine 5 mg tablet 5 mg PO TID #90 tabs 05/26/22 12/20/23 Rx L.acidop,casei,lactis,rham-B.lact,prince 1 cap PO DAILY #30 caps 10/27/23 12/20/23 Rx 625 mg (10 billion cell) capsule (Advanced Probiotic) digoxin 125 mcg (0.125 mg) tablet 0.125 mg PO UD #30 tabs 10/27/23 12/20/23 Rx pantoprazole 40 mg tablet,delayed 40 mg PO BID #60 tabs 10/27/23 12/20/23 Rx release torsemide 10 mg tablet 10 mg PO DAILY #30 tabs 10/27/23 12/20/23 Rx calcium carbonate 600 mg-vitamin 1 cap PO BID 12/16/23 12/20/23 History D3 12.5 mcg (500 unit) capsule (Calcium 600 with Vitamin D3) metoprolol succinate 100 mg 100 mg PO BID 12/16/23 12/20/23 History tablet,extended release 24 hr cetirizine 5 mg tablet 5 mg PO DAILY PRN .ALLERGIES 12/20/23 12/20/23 History hydroxyzine HCl 10 mg tablet 0 mg PO DIRECTED PRN .. 12/20/23 12/20/23 History ketoconazole 2 % shampoo 1 applic topical DIRECTED 12/20/23 12/20/23 History Patient History Medical History (Updated 12/20/23 @ 19:05 by Katelyn Giang MD) Overactive bladder Postural dizziness with presyncope Diabetic polyneuropathy Orthostatic hypotension Atrial fibrillation with rapid ventricular response Chest pain Chest pain Acute on chronic diastolic (congestive) heart failure Ischemic cardiomyopathy Tachy-barbra syndrome admitted for elective pacemaker. Underwent procedure no complications; monitored overnight and discharged home. Surgical History (Updated 12/16/23 @ 10:30 by Lisa Fischer RN) H/O esophagogastroduodenoscopy Social History (Updated 12/16/23 @ 10:30 by Lisa Fischer RN) Smoking Status: Former smoker Tobacco Type: Cigarettes Cigarettes Per Day: 1.5 PPD x 35yrs; Second Hand Exposure: No; Do You Dip or Chew Tobacco: No; Hx Alcohol Use: No Hx Substance Use: No Preferred Language: Spanish Communication Ability: Effective Visual Impairment: Limited Quality Control Supervisor Required: No Beliefs That Will Affect Care: None marital status: / Current Living Situation: Alone Current Living Situation Comment: States she will be looking to move to assisted living Other Information That Helps Us Care for You: No Feels Safe at Home: Yes Safety Concerns: Feels Safe At This Time Assistive Devices: Bedside Commode, Cane and Walker Review of Systems Review of Systems: All systems reviewed & are unremarkable except as noted in HPI & below Physical Exam Constitutional: WD/WN, vitals as above Respiratory: normal respiratory effort, lungs clear to auscultation Cardiovascular: RRR, no murmur, no edema Gastrointestinal (Abdomen): normal bowel sounds, soft, nontender, no hepatosplenomegaly Skin: no rashes, warm and dry Psychiatric: Orientation: alert and oriented x 3 Affect: euthymic affect Results & Data Vital Signs (Past 12 Hours) Vital Signs Temp Pulse Pulse Resp BP BP Pulse Ox 12/21/23 08:07 98.2 F 73 20 150/78 H 93 12/21/23 07:00 79 12/21/23 04:21 97.9 F 85 18 139/61 92 12/21/23 02:54 98.1 F 67 20 157/71 H 97 12/21/23 01:50 97.3 F L 70 18 130/53 L 94 12/21/23 01:23 98.1 F 64 18 122/62 95 12/21/23 00:53 97.5 F L 65 18 102/54 L 95 12/21/23 00:38 97.9 F 76 20 137/75 94 12/21/23 00:34 97.9 F 68 18 141/76 H 97 12/21/23 00:19 97.7 F 65 16 150/81 H 94 12/20/23 23:48 12/20/23 23:48 97.7 F 64 20 114/70 97 12/20/23 23:33 67 12/20/23 22:41 97.5 F L 63 16 144/70 H 99 12/20/23 22:26 63 O2 Del Method 12/21/23 08:07 Room Air 12/21/23 07:00 12/21/23 04:21 12/21/23 02:54 12/21/23 01:50 12/21/23 01:23 12/21/23 00:53 12/21/23 00:38 12/21/23 00:34 12/21/23 00:19 12/20/23 23:48 Room Air 12/20/23 23:48 Room Air 12/20/23 23:33 12/20/23 22:41 12/20/23 22:26 Coding Level of Care Code 47379 INT INP/OBS CARE 2/55MIN Diagnoses Melena K92.1 Anemia D64.9 Anemia type: unspecified type (2) Anemia Anemia type: unspecified type Qualified Code(s): D64.9 - Anemia, unspecified
--- OUTSIDE RECORDS SUMMARY | 2023-12-21 10:58 | External Medical Summary | Summary of Care ---
Author Name Unknown Organization [facility] [address] [facility] [address] Phone [phone] Care Team Providers Care Commercial Account Manager Name Role Phone Jason West MD Primary Care Provider +1- [phone] Reason for Visit * Reason Onset Date Comments No Show 12/20/2023 Encounter Details Date Type Department Care Team (Late st Contact Info) Description 12/20/2023 Telephone Hematology/Oncology [facility] [place] [address] [place] [phone] Marquez Kolb MD [address] [place] [address] No Show Allergies Active Allergy Reactions Criticality Noted Date Comments Hydroxyzine Hcl 05/12/2012 halluzinating Cetirizine & Related 02/11/1999 HALLUCINATIONS documented as of this encounter (statuses as of 12/20/2023) Medications Medication Sig Dispensed Refills Start Date End Date Status MULTIVITAMIN/COAL TOWER OPERATOR AL FORMULA TABS OR 1 TABLET DAILY 0 0 12/02/2001 Active SYSTANE PRESERVATIVE FREE 0.4-0.3 % OP SOLNIndications:Ot her anterior corneal dystrophies 1 gtt OU q2h WA 1 box 6 12/03/2008 Active CALCIUM 7290-1246 MG-UNIT PO CHEW Take 1 Tablet by [...] 81 MG TBECIndications:Co ronary artery disease involving [place] coronary artery of [place] heart without angina pectoris Take 1 [...] Tablet Sublingual (Nitrostat)Indicat ions:Coronary artery disease involving [place] coronary artery of [place] heart without angina pectoris,Old [place] (myocardial infarction) Place 1 Tablet under the tongue every 5 minutes as needed for Pain, Chest. 25 Tablet 5 09/03/2022 Active Apixaban 5 MG Oral Tablet (Eliquis)Indicatio ns:PAF (paroxysmal atrial fibrillation) ([facility]) Take 1 Tablet by mouth in the morning and 1 Tablet before bedtime. 180 Tablet 3 01/01/2023 Active Midodrine HCl 5 MG Oral Tablet (Proamatine)Indica tions:Chronic systolic heart failure (HCC),Coronary artery disease involving [place] coronary artery of [place] heart without angina pectoris TAKE 1 [...] Oral Tablet (Lipitor)Indicatio ns:Coronary artery disease involving [place] coronary artery of [place] heart without angina pectoris,Dyslipide mona TAKE 1 TABLET DAILY IN THE MORNING 90 Tablet 3 05/27/2023 Active Insulin Glargine Solostar 100 UNIT/ML Subcutaneous Solution Pen-injector (Lantus SoloStar)Indicatio ns:DM type 2 causing renal disease, 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) INJECT 20 UNITS SUBCUTANEOUSLY TWICE DAILY 30 mL 2 07/08/2023 Active Digoxin 125 MCG Oral Tablet (Lanoxin)Indicatio ns:Chronic systolic heart failure (HCC),Coronary artery disease involving [place] coronary artery of [place] heart without angina pectoris Take 1 [...] Dyslipidemia 02/18/2018 Coronary artery disease invo lving [place] coronary artery of [place] heart without angina pectoris 12/10/2017 PAF [...] mRNA, LNP-s, No Pre serve, 2-Dose Series ([employer]) 07/23/2021,11/14/2020,10/24/2020 COVID-19, MRNA-LNP, 23-24, P F, 30 MCG/0.3 mL, 12 YRS AND ABOVE, IM (Kerecis-Comirnat) 05/26/2023 Covid-19, Mrna, Lnp-s, Pf, B ivalent, 30 Mcg, IM, 12 yrs and above ([employer]) 05/26/2022 Diptheria/Tetanus (Adult) 05/02/1992 Pneumococcal Conjugate Vacc, [...] Miscellaneous Notes * Telephone Encounter - Saba Bolivar OSA - 12/20/2023 3:17 PM EDT Pt already had apt scheduled w/ [facility] * Telephone Encounter - Rubi Carreno MED ASSIST - 12/20/2023 2:59 PM EDT Scheduling- please contact patient to reschedule appt missed with today. Thank you. documented in this encounter Plan of Treatment Upcoming Encounters Date Type Department Care Team (Late st Contact Info) Description 01/04/2024 2:25 PM EDT Office Visit Hematology/Oncology [facility] [address] [facility] [place] [phone] Marquez Kolb MD [address] [facility] [place] [address] 02/21/2024 9:30 AM EDT Office Visit Cardiology, [facility] [address] [facility] [place] [address] Aurelio Viera PA-C [address] [place] [address] 03/08/2024 10:00 AM EDT Cardiac Studies Cardiology, [facility] [address] [place] [address] [place], [facility] [address] [place] [address] 04/05/2024 1:00 PM EDT Office Visit [facility] [address] [place] [facility] [place] [phone] Jason West MD [address] [place] [facility] [place] [address] Health Maintenance Due Date Last Done Comments Hepatitis C Screening 1963 COVID-19 Vaccine ( season) 2023 05/26/2023, 05/26/2022, 07/23/2021, Additional history exists Albumin/Creatinine Ratio 10/03/2023 023, 08/28/2021, 11/18/2020, Additional history exists CKD PHOS USE SMARTSET 15952 10/03/2023 03/0 09/2022, 03/17/2021, 08/18/2019, Additional history exists DIG LEVEL FOR MEDICATION MONITORING YEARLY 03/08/2024 03/08/2023, 10/02/2022, 07/29/2021 GFR 06/18/2024 12/17/2023, 08/0 01/2023, 10/02/2022, Additional history exists HbA1c 06/18/2024 12/17/2023, 08/0 01/2023, 10/02/2022, Additional history exists Diabetic Eye Exam 11/01/2024 11/02/2023, , 04/07/2019, Additional history exists Diabetic Foot Exam 11/01/2024 11/02/2023, 0 03/17/2021, 12/27/2019, Additional history exists CKD HGB USE SMARTSET 11450 12/16/202412/16, 12/17/2023, 03/08/2023, Additional history exists DXA [...] filedocumented as of this encounter Care Teams Commercial Account Manager Relationship Specialty Start Date End Date Jason West MD [address] [place] [address] PCP - General 02/06/03 documented as of this encounter
--- OUTSIDE RECORDS SUMMARY | 2023-12-21 10:58 | External Medical Summary | Summary of Care ---
Author Name Unknown Organization [facility] Address [address] [address] Phone [phone] Care Team Providers Care Incubator Machine Operator Name Role Phone Jason West MD Primary Care Provider [phone] Reason for Visit * Reason Onset Date Comments No Show 12/20/2023 Encounter Details Date Type Department Care Team (Late st Contact Info) Description 12/20/2023 Telephone Hematology/Oncology [facility] [place] [address] [place] [phone] Marquez Kolb MD [address] [place] [address] No Show Allergies Active Allergy Reactions Criticality Noted Date Comments Hydroxyzine Hcl 05/12/2012 halluzinating Cetirizine & Related 02/11/1999 HALLUCINATIONS documented as of this encounter (statuses as of 12/20/2023) Medications Medication Sig Dispensed Refills Start Date End Date Status MULTIVITAMIN/COMPLIANCE ADVISOR AL FORMULA TABS OR 1 TABLET DAILY 0 0 12/02/2001 Active SYSTANE PRESERVATIVE FREE 0.4-0.3 % OP SOLNIndications:Ot her anterior corneal dystrophies 1 gtt OU q2h WA 1 box 6 12/03/2008 Active CALCIUM 1621-8422 MG-UNIT PO CHEW Take 1 Tablet by mouth in the morning. Active Cinnamon 500 MG Capsule Take 2 Capsules by mouth in the morning. Active ONETOUCH ULTRASOFT LANCETS MISCIndications:DM type 2 causing renal disease ([facility]) Use as directed daily. Use up to four times a day as directed. Dx E11.9 3 Box Dosing Unit 3 09/13/2018 Active aspirin enteric coated 81 MG TBECIndications:Co ronary artery disease involving [place] coronary artery of afogn[place] heart without angina pectoris Take 1 Tab by mouth daily. 30 Tab 11 07/17/2019 Active Loratadine 10 MG Oral Capsule Take 1 Capsule by mouth in the morning. Active Magnesium 400 MG Capsule Take 1 by mouth daily. 30 Cap 11 01/11/2020 Active acetaminophen (TYLENOL) 325 MG Tablet 2 Tablets. 04/13/2020 Active Nitroglycerin 0.4 MG Sublingual Tablet Sublingual (Nitrostat)Indicat ions:Coronary artery disease involving [place] coronary artery of [place] heart without angina pectoris,[place] (myocardial infarction) Place 1 Tablet under the tongue every 5 minutes as needed for Pain, Chest. 25 Tablet 5 09/03/2022 Active Apixaban 5 MG Oral Tablet (Eliquis)Indicatio ns:PAF (paroxysmal atrial fibrillation) ([facility]) Take 1 Tablet by mouth in the morning and 1 Tablet before bedtime. 180 Tablet 3 01/01/2023 Active Midodrine HCl 5 MG Oral Tablet (Proamatine)Indica tions:Chronic systolic heart failure (HCC),Coronary artery disease involving af[place] coronary artery of [place] heart without angina pectoris TAKE 1 TAB [...] Blood)Indications: DM type 2 causing renal disease ([facility]) Check blood sugars one time daily. Dx E11.9 300 Strip 2 05/03/2023 Active Atorvastatin Calcium 40 MG Oral Tablet (Lipitor)Indicatio ns:Coronary artery disease involving [place] coronary artery of [place] heart without angina pectoris,Dyslipide mona TAKE 1 TABLET DAILY IN THE MORNING 90 Tablet 3 05/27/2023 Active Insulin Glargine Solostar 100 UNIT/ML Subcutaneous Solution Pen-injector (Lantus SoloStar)Indicatio ns:DM type 2 causing renal disease, 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) INJECT 20 UNITS SUBCUTANEOUSLY TWICE DAILY 30 mL 2 07/08/2023 Active Digoxin 125 MCG Oral Tablet (Lanoxin)Indicatio ns:Chronic systolic heart failure (HCC),Coronary artery disease involving [place] coronary artery of [place] heart without angina pectoris Take 1 Tablet [...] single episode, in full remission 12/07/2018 [place] (myocardial infarction) 03/31/2018 Heart failure, systolic, due to CAD 03/31/2018 Lymphedema of both lower extremities 03/31/2018 Dyslipidemia 02/18/2018 Coronary artery disease invo lving [place] coronary artery of [place] heart without angina pectoris 12/10/2017 PAF (paroxysmal [...] mRNA, LNP-s, No Pre serve, 2-Dose Series (Attenex) 07/23/2021,11/14/2020,10/24/2020 COVID-19, MRNA-LNP, 23-24, P F, 30 MCG/0.3 mL, 12 YRS AND ABOVE, IM (Skiin Fundementals-ComirnatPixafy) 05/26/2023 Covid-19, Mrna, Lnp-s, Pf, B ivalent, [...] encounter Miscellaneous Notes * Telephone Encounter - Rubi Carreno MED ASSIST - 12/20/2023 2:59 PM EDT Scheduling- please contact patient to reschedule appt missed with today. Thank you. documented in this encounter Plan of Treatment Upcoming Encounters Date Type Department Care Team (Late st Contact Info) Description 01/04/2024 2:25 PM EDT Office Visit Hematology/Oncology [facility] [place] [address] [place] [address] Marquez Kolb MD [address] [place] [address] 02/21/2024 9:30 AM EDT Office Visit Cardiology, [facility] [address] [facility] [place] [address] Aurelio Viera PA-C [address] [place] [address] 03/08/2024 10:00 AM EDT Cardiac Studies Cardiology, [facility] [address] [facility] [place] [address] [facility] [address] [facility] [place] [address] 04/05/2024 1:00 PM EDT Office Visit [facility] [address] [place] [phone] Jason West MD [address], [place] [id number] Health Maintenance Due Date Last Done Comments Hepatitis C Screening 1963 COVID-19 Vaccine ( season) 2023 05/26/2023, 05/26/2022, 07/23/2021, Additional history exists Albumin/Creatinine Ratio 10/03/2023 023, 08/28/2021, 11/18/2020, Additional history exists CKD PHOS USE SMARTSET 60808 10/03/202309/2022, 03/17/2021, 08/18/2019, Additional history exists DIG LEVEL FOR MEDICATION MONITORING YEARLY 03/08/2024 03/08/2023, 10/02/2022, 07/29/2021 GFR 06/18/2024 12/17/2023, 01/2023, 10/02/2022, Additional history exists HbA1c 06/18/2024 12/17/2023, 08/0 01/2023, 10/02/2022, Additional history exists Diabetic Eye Exam 11/01/2024 11/02/2023, , 04/07/2019, Additional history exists Diabetic Foot Exam 11/01/2024 11/02/2023, 0 03/17/2021, 12/27/2019, Additional history exists CKD HGB USE SMARTSET 74990 12/16/202412/16, 12/17/2023, 03/08/2023, Additional history exists DXA [...] filedocumented as of this encounter Care Teams Incubator Machine Operator Relationship Specialty Start Date End Date Jason West MD [address] [place] [address] PCP - General 02/06/03 documented as of this encounter
[2023-12-21] MEDS: MULTIVITAMIN TAB PO SCH (11:19)
[2023-12-21] MEDS: oxyBUTYnin chloride 5 MG TAB PO SCH (11:41)
[2023-12-21] MEDS: LORazepam 0.25 MG in SYRINGE 0.125 ML IV ONE (13:06)
[2023-12-21] MEDS: traMADol HCL 50 MG TABLET PO PRN (13:44)
--- NOTE | 2023-12-21 14:50 | XRay Report ---
XR chest 1V portable CLINICAL HISTORY: Chest pain. COMPARISON STUDY: Chest CT October 25, 2023. Chest radiograph December 20, 2023. PET CT November 23, 2023. FINDINGS: Left subclavian pacer is in place. Elevation/eventration of the right hemidiaphragm is agai n noted. There is no pneumothorax. Small right pleural effusion is present. Cardiomegaly with pulmona ry vascular congestion. Mild bibasilar opacities are present. IMPRESSION: 1. Cardiomegaly with pulmonary vascular congestion. Small right pleural effusion. 2. Bibasilar opacities which could reflect an infectious process or atelectasis. ACT 112: Negative or not required by law. Electronically signed by: Mando Garzon M.D. 12/21/2023 2:49 PM
--- NOTE | 2023-12-21 15:52 | Electrocardiogram Report ---
Test Reason : Blood Pressure : / mmHG Vent. Rate : 075 BPM Atrial Rate : 000 BPM P-R Int : 000 ms QRS Dur : 086 ms QT Int : 392 ms P-R-T Axes : 000 -18 -64 degrees QTc Int : 437 ms Atrial fibrillation with occasional ventricular-paced complexes T wave abnormality, consider anterolateral ischemia Abnormal ECG When compared with ECG of 21-OCT-2023 10:58, Vent. rate has increased BY 7 BPM Confirmed by Broderick Morales ([id number]) on 12/21/2023 3:52:18 PM Referred By: Marquez Kolb Confirmed By:Broderick Morales
--- NOTE | 2023-12-21 16:29 | Electrocardiogram Report ---
Test Reason : Blood Pressure : / mmHG Vent. Rate : 064 BPM Atrial Rate : 300 BPM P-R Int : 000 ms QRS Dur : 094 ms QT Int : 422 ms P-R-T Axes : 000 -23 -43 degrees QTc Int : 435 ms Atrial fibrillation with frequent ventricular-paced complexes T wave abnormality, consider anterolateral ischemia Abnormal ECG When compared with ECG of 20-DEC-2023 19:19, Vent. rate has decreased BY 11 BPM Confirmed by Broderick Morales ([id number]) on 12/21/2023 4:28:45 PM Referred By: Marquez Kolb Confirmed By:Broderick Morales
[2023-12-21] MEDS: OPTIRAY 320 125ml IV ONE (17:36)
--- NOTE | 2023-12-21 18:03 | CT Scan Report ---
CT angio chest PE protocol CLINICAL HISTORY: PE TECHNIQUE: Multidetector row helical CT of the chest was performed with angiographic protocol. Lowe l and sagittal reformations were obtained. Coronal and sagittal MIPS were obtained from the axial jozef a set and were submitted for review. Automated dose lowering techniques and/or adjustment according to patient size were utilized for this exam. CT DOSE: 889.65 mGy.cm Comparison: Comparison is made to chest 10/25/2023 FINDINGS: Lungs and pleura: Small to moderate bilateral pleural effusions are seen. Tree-in-bud nodularity in t he right middle lobe and right upper lobe are seen. Interval stability of 3 mm pulmonary nodule in th e right upper lobe (series 4 image 121) and 5 mm nodule in the left lower lobe (image 106). Heart and pericardium: Cardiomegaly is seen with biatrial enlargement. Vessels: No evidence of pulmonary embolism, although evaluation is limited by patient motion. Pulmona ry trunk measures 34 mm in diameter. 2 atherosclerotic changes are seen in the coronary arteries. Mediastinum and iker: Unremarkable. Chest wall and lower neck: Small thyroid nodules are noted which do not require follow-up by ACR yvette valdez. Abdomen: Patient is status post cholecystectomy. Right adrenal nodule is seen. Bones: Degenerative changes in the thoracic spine. IMPRESSION: 1. Exam is limited by patient motion however no evidence of pulmonary embolus is seen. 2. Iuory-tg-rqventrd bilateral pleural effusions with underlying atelectasis. Stable nodules as abov e. 3. Pulmonary hypertension. ACT 112: Negative or not required by law. Electronically signed by: Guille Gibbs M.D. 12/21/2023 6:01 PM
--- NOTE | 2023-12-21 19:42 | Hospitalist Progress Note ---
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 UGIB In the setting GE junction adenocarcinoma and aspirin and Eliquis Rx, IV PPI s/p PRBC transfusion to maintain hemoglobin of at least 8, history CAD hold Eliquis and aspirin GI consulted, appreciate recs Chest Pain On 12/20 EKG with a fib, trop wnl Chest xray, chest CTA repeated Pain control Continue to monitor on telemetry hx CAD status post stent SSS status post PPM Atrial Fibrillation on Eliquis and aspirin , currently on hold as above Consider Cardiology follow up chronic diastolic heart failure (65%%, TTE 2023) Lasix with transfusions Home torsemide on hold in setting of above Continue to monitor hypertension slightly elevated hyperlipidemia on statin Rx DM2 on oral medications well-controlled as of recent hemoglobin A1c of 6.09 Dec 2023 Basal insulin adjusted for n.p.o. status, ISS BG goal [id number], update hemoglobin A1c parotid masses GMG ENT following DVT prophylaxis. SCDs Re: UGIB Full code Admission and Anticipated Discharge Date Admission Date: December 20, 2023 Subjective Pt was seen multiple times during the day. Initially concerned that she was not having a procedure. States she would like to know why she is bleeding. Later, informed that pt was having chest pain. Pain reproducible on exam, associated with some SOB. Review of Systems Review of Systems: All systems reviewed & are unremarkable except as noted in Subjective Physical Exam Physical Exam: General: Alert, oriented. No acute distress Skin: No noted rashes or bruises Psych: Appropriate mood and affect Neuro: No gross deficits HEENT: NC/AT Chest: tender to palpation over the sternum CV: Irregular Resp: Breath sounds clear bilaterally, no increased effort of breathing. Abdomen: Soft, nontender Extremities: ++++ edema in lower extremities bilaterally. Results & Data Results & Data Vital Signs (Past 12 Hours) Vital Signs Temp Pulse Pulse Resp BP BP Pulse Ox 12/21/23 08:07 36.8 C 73 20 150/78 H 93 12/21/23 07:00 79 12/21/23 04:21 36.6 C 85 18 139/61 92 12/21/23 02:54 36.7 C 67 20 157/71 H 97 12/21/23 01:50 36.3 C L 70 18 130/53 L 94 12/21/23 01:23 36.7 C 64 18 122/62 95 12/21/23 00:53 36.4 C L 65 18 102/54 L 95 12/21/23 00:38 36.6 C 76 20 137/75 94 12/21/23 00:34 36.6 C 68 18 141/76 H 97 12/21/23 00:19 36.5 C 65 16 150/81 H 94 12/20/23 23:48 12/20/23 23:48 36.5 C 64 20 114/70 97 12/20/23 23:33 67 12/20/23 22:41 36.4 C L 63 16 144/70 H 99 12/20/23 22:26 63 12/20/23 21:52 36.9 C 64 18 114/63 98 O2 Del Method 12/21/23 08:07 Room Air 12/21/23 07:00 12/21/23 04:21 12/21/23 02:54 12/21/23 01:50 12/21/23 01:23 12/21/23 00:53 12/21/23 00:38 12/21/23 00:34 12/21/23 00:19 12/20/23 23:48 Room Air 12/20/23 23:48 Room Air 12/20/23 23:33 12/20/23 22:41 12/20/23 22:26 12/20/23 21:52 Diagnostic Findings Chest X-Ray 12/20/23 19:05 XR chest 1V portable CLINICAL HISTORY: Shortness of breath. COMPARISON STUDY: Chest radiograph October 21, 2023. Chest CT October 25, 2023. PET/CT November 23, 2023. FINDINGS: Elevation/eventration of the right hemidiaphragm appears increased although could be related to lordotic positioning. Left subclavian pacer is in place. There is cardiomegaly without evidence for pulmonary edema. A trace right pleural effusion is noted. There is no pneumothorax. No definite consolidation to suggest pneumonia. IMPRESSION: 1. Trace right pleural effusion. No pneumothorax. 2. Cardiomegaly. No evidence for pulmonary edema. 3. Elevation/eventration of the right hemidiaphragm. ACT 112: Negative or not required by law. Electronically signed by: Mando Garzon M.D. 12/21/2023 7:51 AM Chest X-Ray 12/21/23 14:14 XR chest 1V portable CLINICAL HISTORY: Chest pain. COMPARISON STUDY: Chest CT October 25, 2023. Chest radiograph December 20, 2023. PET CT November 23, 2023. FINDINGS: Left subclavian pacer is in place. Elevation/eventration of the right hemidiaphragm is again noted. There is no pneumothorax. Small right pleural effusion is present. Cardiomegaly with pulmonary vascular congestion. Mild bibasilar opacities are present. IMPRESSION: 1. Cardiomegaly with pulmonary vascular congestion. Small right pleural effusion. 2. Bibasilar opacities which could reflect an infectious process or atelectasis. ACT 112: Negative or not required by law. Electronically signed by: Mando Garzon M.D. 12/21/2023 2:49 PM Chest CTA 12/21/23 15:43 CT angio chest PE protocol CLINICAL HISTORY: PE TECHNIQUE: Multidetector row helical CT of the chest was performed with angiographic protocol. Coronal and sagittal reformations were obtained. Coronal and sagittal MIPS were obtained from the axial data set and were submitted for review. Automated dose lowering techniques and/or adjustment according to patient size were utilized for this exam. CT DOSE: 889.65 mGy.cm Comparison: Comparison is made to chest 10/25/2023 FINDINGS: Lungs and pleura: Small to moderate bilateral pleural effusions are seen. Tree-in-bud nodularity in the right middle lobe and right upper lobe are seen. Interval stability of 3 mm pulmonary nodule in the right upper lobe (series 4 image 121) and 5 mm nodule in the left lower lobe (image 106). Heart and pericardium: Cardiomegaly is seen with biatrial enlargement. Vessels: No evidence of pulmonary embolism, although evaluation is limited by patient motion. Pulmonary trunk measures 34 mm in diameter. 2 atherosclerotic changes are seen in the coronary arteries. Mediastinum and iker: Unremarkable. Chest wall and lower neck: Small thyroid nodules are noted which do not require follow-up by ACR criteria. Abdomen: Patient is status post cholecystectomy. Right adrenal nodule is seen. Bones: Degenerative changes in the thoracic spine. IMPRESSION: 1. Exam is limited by patient motion however no evidence of pulmonary embolus is seen. 2. Juyti-mn-ywkbvtzh bilateral pleural effusions with underlying atelectasis. Stable nodules as above. 3. Pulmonary hypertension. ACT 112: Negative or not required by law. Electronically signed by: Guille Gibbs M.D. 12/21/2023 6:01 PM
[2023-12-21] MEDS ORDERED: Nursing to Pharmacy Communication SCH (21:45)
[2023-12-22] MEDS: INSULIN ASPART PER UNIT CHARGE SC SCH ×2 (00:31→17:51)
[2023-12-22 08:11] LABS: Hematocrit (blood only) 30.3 % (37.0-47.0); Mean Corpuscular Hemoglobin 24.3 pg (25.0-34.0); Mean Corpuscular Hgb Conc 29.7 g/dL (32.0-36.0); Mean Corpuscular Volume 81.9 fL (80.0-100.0); Mean Platelet Volume 8.9 fL (9.4-12.4); Platelet Count 373 K/uL (130-400); RDW Coefficient of Variation 15.9 % (11.5-14.5); RDW Standard Deviation 47.7 fL (36.4-46.3); White Blood Count 9.69 K/ul (4.8-10.8)
[2023-12-22 08:47] LABS: BUN Creatinine Ratio 17.5 (10-20); Calcium 8.9 mg/dl (8.6-10.3); Creatinine Clr Calc Pharmacy 83.3 ml/min; Est GFR (African American) 98.9 ml/min; Est GFR (Non-African American) 85.3 ml/min; Magnesium 1.7 mg/dl (1.7-2.4); Phosphorus 3.6 mg/dl (2.5-4.9); Potassium 4.6 mmol/L (3.5-5.1)
--- NOTE | 2023-12-22 08:52 | Hospitalist Progress Note ---
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 UGIB In the setting GE junction adenocarcinoma and aspirin and Eliquis Rx, IV PPI s/p PRBC transfusion to maintain hemoglobin of at least 8, history CAD hold Eliquis and aspirin GI consulted, appreciate recs - no procedure planned at this time, cont. supportive care Chest Pain On 12/20 EKG with a fib, trop wnl Chest xray chest CTA repeated -1. Exam is limited by patient motion however no evidence of pulmonary embolus is seen. 2. Ecsqe-sn-fcsbfcek bilateral pleural effusions with underlying atelectasis. Stable nodules as above. 3. Pulmonary hypertension. Pain control Continue to monitor on telemetry Continues to have chest discomfort on 12/21 however feels improved - ECG - Afib Will hold midodrine for now and will discuss w/ cardiology hx CAD status post stent SSS status post PPM Atrial Fibrillation on Eliquis and aspirin , currently on hold as above Cardiology consulted - as above chronic diastolic heart failure (65%%, TTE 2023) Lasix with transfusions Home torsemide on hold in setting of above Continue to monitor hypertension slightly elevated hyperlipidemia on statin Rx DM2 on oral medications well-controlled as of recent hemoglobin A1c of 6.09 Dec 2023 Basal insulin adjusted for n.p.o. status, ISS BG goal [id number] parotid masses GMG ENT following DVT prophylaxis. SCDs Re: UGIB Full code Admission and Anticipated Discharge Date Admission Date: December 20, 2023 Subjective Pt seen in follow up of anemia/ GI bleed, esoph. ca, Afib s/p 2 units of pRBCs on admission Seen by GI yesterday - no plan for procedure at this time Developed chest pain- CT PE obtained yesterday Afib on ECG ASA, Eliquis on hold for GI bleed/ anemia- currently no stools/ no bleed Pt says yesterday had severe chest pain/ pressure -> CT PE was obtained This AM notified of chest pain by RN - pt says it feels more like ache and it's not as severe as yesterday No abd. pain Have not started treatment for esoph. ca, seen by Dr. Kolb Says she follows with [facility] cardiology -Aurelio Viera and Dr. Vaca - takes midodrine and torsemide ( and other meds as previously) She is NPO and would like her diet advanced Review of Systems Review of Systems: All systems reviewed & are unremarkable except as noted in Subjective Physical Exam Physical Exam: GENERAL: morbidly obese F in NAD HEENT: NC/AT, dry mucous membranes NECK : Supple HEART : Irregular, no obvious murmurs ABDOMEN: Some distention, soft, nontender EXTREMITIES : Chronic LE swelling, no LE tenderness, moves extremities NEUROLOGIC : awake, alert, no facial asymmetry, speech fluent, answers appropriately, moves extremities SKIN: Pallor, warm, dry Results & Data Results & Data Vital Signs (Past 12 Hours) Vital Signs Temp Pulse Pulse Resp BP Pulse Ox O2 Del Method 12/22/23 07:56 36.5 C 76 18 140/64 90 Room Air 12/22/23 07:27 69 12/22/23 02:50 36.7 C 70 18 132/75 92 Room Air 12/21/23 22:58 36.7 C 61 18 145/79 H 92 Room Air 12/21/23 22:38 73 Laboratory Results 12/22/23 12/22/23 12/22/23 Range/Units 07:35 05:29 00:29 WBC 9.69 (4.8-10.8) K/ul RBC 3.70 L (4.20-5.40) M/uL Hgb 9.0 L (12.0-16.0) g/dl Hct 30.3 L (37.0-47.0) % MCV 81.9 (80.0-100.0) fL MCH 24.3 L (25.0-34.0) pg MCHC 29.7 L (32.0-36.0) g/dL RDW Std Deviation 47.7 H (36.4-46.3) fL RDW Coeff of [place] 15.9 H (11.5-14.5) % Plt Count 373 (130-400) K/uL MPV 8.9 L (9.4-12.4) fL Sodium 140 (136-145) mmol/L Potassium 4.6 (3.5-5.1) mmol/L Chloride 105 (98-107) mmol/L Carbon Dioxide 30 (21-32) mmol/L Anion Gap 5 (3-11) BUN 11 (6-23) mg/dl Creatinine 0.63 (0.6-1.2) mg/dl Est Cr Clr Drug Dosing 83.3 ml/min Est GFR ( Amer) 98.9 ml/min Est GFR (Non-Af Amer) 85.3 ml/min BUN/Creatinine Ratio 17.5 (10-20) Glucose 118 H (70-99(Fasting)) mg/dl POC Glucose 135 H 114 H (70-99) mg/dl Calcium 8.9 (8.6-10.3) mg/dl Phosphorus 3.6 (2.5-4.9) mg/dl Magnesium 1.7 (1.7-2.4) mg/dl Troponin I High Sens (0-14) pg/ml 12/21/23 12/21/23 12/21/23 Range/Units 16:41 13:04 11:51 WBC (4.8-10.8) K/ul RBC (4.20-5.40) M/uL Hgb (12.0-16.0) g/dl Hct (37.0-47.0) % MCV (80.0-100.0) fL MCH (25.0-34.0) pg MCHC (32.0-36.0) g/dL RDW Std Deviation (36.4-46.3) fL RDW Coeff of Yosi (11.5-14.5) % Plt Count (130-400) K/uL MPV (9.4-12.4) fL Sodium (136-145) mmol/L Potassium (3.5-5.1) mmol/L Chloride (98-107) mmol/L Carbon Dioxide (21-32) mmol/L Anion Gap (3-11) BUN (6-23) mg/dl Creatinine (0.6-1.2) mg/dl Est Cr Clr Drug Dosing ml/min Est GFR ( Amer) ml/min Est GFR (Non-Af Amer) ml/min BUN/Creatinine Ratio (10-20) Glucose (70-99(Fasting)) mg/dl POC Glucose 120 H 137 H (70-99) mg/dl Calcium (8.6-10.3) mg/dl Phosphorus (2.5-4.9) mg/dl Magnesium (1.7-2.4) mg/dl Troponin I High Sens 10.6 (0-14) pg/ml Medications Administered Current Inpatient Medications Acetaminophen (Acetaminophen 325 Mg Tab) 650 mg PO QID PRN PRN Reason: pain/fever Stop: 01/19/24 22:10 Artificial Tears (Artificial Tears) 1 drops OP DAILY PRN PRN Reason: Dry Eyes Stop: 01/19/24 23:49 Atorvastatin Calcium (Atorvastatin 40 Mg Tab) 40 mg PO QAM KAYLA Stop: 01/20/24 08:59 Last Admin: 12/22/23 08:12 Dose: 40 mg Dextrose (Dextrose 50% 50 Ml Syringe) 25 - 50 ml IV UD PRN; Protocol PRN Reason: Hypoglycemia Protocol Stop: 01/19/24 23:31 Glucagon (Glucagon For Inj 1 Mg Vial) 1 mg SQ UD PRN; Protocol PRN Reason: Hypoglycemia Protocol Stop: 01/19/24 23:31 Glucose (Glucose 40% Gel 15 Gm Tube) 15 - 30 gm PO UD PRN; Protocol PRN Reason: Hypoglycemia Protocol Stop: 01/19/24 23:31 Glucose (Glucose 10 Tab/Tube) 4 - 8 tab PO UD PRN; Protocol PRN Reason: Hypoglycemia Treatment Stop: 01/19/24 23:31 Hydroxyzine HCl (Hydroxyzine Hcl 10 Mg Tab) 10 mg PO QID PRN PRN Reason: Anxiety Stop: 01/19/24 22:10 Last Admin: 12/21/23 08:03 Dose: 10 mg Promethazine HCl 6.25 mg/ (Sodium Chloride) 50.25 mls @ 201 mls/hr IV Q6H PRN PRN Reason: Nausea And Vomiting Stop: 01/19/24 22:10 Pantoprazole Sodium 40 mg/ (Dextrose) 100 mls @ 20 mls/hr IV Q5H KAYLA Stop: 01/19/24 22:14 Last Admin: 12/22/23 05:27 Dose: 8 mg/hr, 20 mls/hr Magnesium Sulfate/Dextrose (Magnesium Sulfate / D5w) 1 gm in 100 mls @ 50 mls/hr IV ONE ONE Stop: 12/22/23 10:49 Insulin Aspart (Insulin Aspart Per Unit Charge) 0 units SC Q6 [facility] Stop: 01/21/24 00:00 Last Admin: 12/22/23 05:30 Dose: Not Given Lactobacillus Acidophilus (Advanced Probiotic 625 Mg Capsule) 1,250 mg PO DAILY KAYLA Stop: 01/20/24 08:59 Last Admin: 12/22/23 08:12 Dose: 1,250 mg Metoprolol Succinate (Metoprolol Succ 50mg Ext Rel Tab) 100 mg PO BID KAYLA Stop: 01/19/24 23:31 Last Admin: 12/22/23 08:12 Dose: 100 mg Midodrine (Midodrine Hcl 2.5 Mg Tab) 5 mg PO TID@0800,1200,1700 [facility] Stop: 01/20/24 07:59 Last Admin: 12/22/23 08:11 Dose: Not Given Miscellaneous (Carbohydrates For Hypoglycemia ) 15 - 30 gm PO UD PRN PRN Reason: Hypoglycemia Protocol Stop: 01/19/24 23:31 Multivitamins (Multivitamin Tab) 1 tab PO QDL KAYLA Stop: 01/20/24 11:29 Last Admin: 12/21/23 11:19 Dose: 1 tab Nitroglycerin (Nitroglycerin Sl 0.4 Mg/Tab Tab) 0.4 mg SL UD PRN PRN Reason: Chest Pain Stop: 01/19/24 23:31 Oxybutynin Chloride (Oxybutynin Chloride 5 Mg Tab) 5 mg PO BID@1200,2100 [facility] Stop: 01/20/24 11:59 Last Admin: 12/21/23 21:49 Dose: 5 mg Tramadol HCl (Tramadol Hcl 50 Mg Tablet) 25 - 50 mg PO Q4H PRN PRN Reason: Pain Stop: 01/19/24 22:10 Last Admin: 12/21/23 13:44 Dose: 50 mg
[2023-12-22] MEDS: MAGNESIUM SULFATE / D5W 1 GM/100 ML BAG IV ONE (09:36)
--- NOTE | 2023-12-22 14:09 | Cardiology Consultation ---
Date of Consultation December 22, 2023 Assessment & Plan (1) Atypical chest pain: (2) Coronary artery disease: (3) Permanent atrial fibrillation: (4) Acute GI bleeding: (5) Anemia requiring transfusions: (6) Primary carcinoma of lower third of esophagus: (7) Hypertension: (8) Dyslipidemia: Plan Assessment: 78 year old female with known chronic A-fib previously on oral AC therapy presents with an acute GI bleed with a HgB of 6.4 requiring transfusion. Hx of chronic chest pain with recurrence yesterday prompting cardiology to be consulted for evaluation. Plan: 1. Atypical Chest pain 2. CAD -Known chronic chest pain which patient states the episodes was similar in natu re, only more intense and persistent for hours. Pain is reproducible to palpitation. -EKG at time of episodes demonstrates no acute ischemic changes. - Troponin negative x1. -symptoms appear atypical in nature and no acute ischemic concerns on labs or EKG -Obtain pacer interrogation -Obtain echo to assess overall structure and function. -Continue Toprol xl 100mg PO BID, Atorvastatin 40mg daily as part of GDMT -BP elevated and may need to consider adding low dose IRVING-I or ARB to regimen as Torsemide is presently on hold with acute bleed. 3. Permanent atrial fibrillation -Rate controlled. Continue Toprol xl -Discussed risk vs benefit with known A-fib and other comorbidities which increase the patient's risk of an acute thromboembolic event. Unfortunately in the setting of an acute GI bleed, would recommend that her AC therapy continue to remain on hold until her H/H stabilizes. Would appreciate input form heme/onc as she will be starting chemo soon. 4. Acute GI bleed: 5. Anemia requiring transfusions 6. Primary carcinoma of lower third of esophageus -Continued management per primary team with close monitoring. Will need to continue to hold oral AC therapy at this time. Patient understands risk vs benefit. 7. HTN: -Above target. -Continue Toprol xl, but if remains above target, may need to add low dose Irving-I or ARB -Monitor fluid status closely and consider restarting torsemide if H/H remain stable. 8 Dyslipidemia: -Continue Atorvastatin as per current regimen. Case has been discussed with Dr. Montiel. Further recommendations regarding plan of care as per his assessment. I spent a total of 40 minutes on the date of service in preparation, delivery, documentation of the care provided to the patient excluding any time spent in the performance of separately billed services. KHADAR Toth [facility] Cardiology [facility] Supervising Physician Co-Signing Physician Notes I have personally performed a history and physical examination on the patient. I have reviewed the advance practitioner's documentation, and I agree with, and take responsibility for the plan of care. 78 year old female with acute GIB/anemia requiring transfusion. She has received 2 units PRBCs without signs/symptoms of ongoing GI blood loss. Aspirin and eliquis currently on hold. Repeat H/H in AM. Further discussion with GI regarding possible endoscopy prior to restarting anticoagulation and antiplatelet therapy. I spent a total of 40 minutes on the date of service in preparation, delivery, and documentation of the care provided to this patient, excluding any time spent in the performance of separately billed services. History of Present Illness Reason for Consultation: A-fib and chest pain Requesting Physician: [facility] hospitalist Attending Physician: David Giraldo MD History of Present Illness HPI: patient is a 78 year-old female with PMHx significant for HFpEF, CAD with prior stent, SSS s/p PPM, Chronic A-fib, mild TR, PSVT hypertension, hyperlipidemia, GE junction adenocarcinoma, DM2 on oral medications, PMR, parotid masses, pulmonary nodule, past tobacco abuse that presented to the ED with 2 week history of melanotic stools with accompanying abdominal pain. OP HgB was 7.1. Upon arrival her HgB was 6.4. patient received 2 units of PRBC's on admission. Seen by GI with no plans for invasive intervention at this time. patient had complained of chest pain yesterday and was noted to be in A-fib (this is chronic) . CT chest obtained to rule out PE. Continues with a "chest ache today" and therefore cardiology has been asked to see her for further evaluation as well as recommendation regards to oral AC therapy. She is resting in bed visiting with friends. She reports that she has had chronic chest pain for years even post PCI. Yesterday's episode seemed "more intense" described more as a pressure and hot feeling in her chest that lasted several hours. She reports that it is more of a mild ache today, but is tender to palpitation. Denies any associated shortness of breath, no PND, pre-syncope, syncope or edema. EKG A-fib with PVC, T wave abnormality, consider anterolateral ischemia, Rate 64bpm Patient has a [employer] device, most recent interrogation 10/14/23 demonstrates normal function. Allergies Allergy/AdvReac Type Severity Reaction Status Date / Time cetirizine AdvReac Intermediate Hallucinati Verified 12/20/23 20:54 ng hydroxyzine AdvReac Intermediate Hallucinati Verified 12/20/23 20:54 ng Home Medications Medication Instructions Recorded Confirmed Type apixaban 5 mg tablet (Eliquis) 5 mg PO AMHS 06/18/18 12/20/23 History atorvastatin 40 mg tablet 40 mg PO QAM 06/18/18 12/20/23 History insulin glargine 100 unit/mL (3 20 unit subcut BIDM 06/18/18 12/20/23 History mL) subcutaneous pen (Lantus Solostar U-100 Insulin) multivitamin 1 tab PO QDL 06/18/18 12/20/23 History nitroglycerin 0.4 mg sublingual 0.4 mg sublingual DIRECTED PRN 06/18/18 12/20/23 History tablet (Nitrostat) Chest Pain oxybutynin chloride 5 mg tablet 5 mg PO BID 06/18/18 12/20/23 History glipizide 5 mg tablet 5 mg PO BIDM 04/11/20 12/20/23 History acetaminophen 500 mg tablet 1,000 mg PO TID PRN PAIN/FEVER 05/18/22 12/20/23 History (Tylenol Extra Strength) aspirin 81 mg tablet,delayed 81 mg PO QAM 05/18/22 12/20/23 History release cinnamon bark 500 mg capsule 1,000 mg PO QDD 05/18/22 12/20/23 History (Cinnamon) magnesium oxide 400 mg PO QDL 05/18/22 12/20/23 History peg 400-propylene glycol (PF) 0.4 1 drp OPB DAILY PRN Dry Eyes 05/18/22 12/20/23 History %-0.3 % eye drops in a dropperette (Systane (PF)) midodrine 5 mg tablet 5 mg PO TID #90 tabs 05/26/22 12/20/23 Rx L.acidop,casei,lactis,rham-B.lact,prince 1 cap PO DAILY #30 caps 10/27/23 12/20/23 Rx 625 mg (10 billion cell) capsule (Advanced Probiotic) digoxin 125 mcg (0.125 mg) tablet 0.125 mg PO UD #30 tabs 10/27/23 12/20/23 Rx pantoprazole 40 mg tablet,delayed 40 mg PO BID #60 tabs 10/27/23 12/20/23 Rx release torsemide 10 mg tablet 10 mg PO DAILY #30 tabs 10/27/23 12/20/23 Rx calcium carbonate 600 mg-vitamin 1 cap PO BID 12/16/23 12/20/23 History D3 12.5 mcg (500 unit) capsule (Calcium 600 with Vitamin D3) metoprolol succinate 100 mg 100 mg PO BID 12/16/23 12/20/23 History tablet,extended release 24 hr cetirizine 5 mg tablet 5 mg PO DAILY PRN .ALLERGIES 12/20/23 12/20/23 History hydroxyzine HCl 10 mg tablet 0 mg PO DIRECTED PRN .. 12/20/23 12/20/23 History ketoconazole 2 % shampoo 1 applic topical DIRECTED 12/20/23 12/20/23 History Patient History Medical History (Updated 12/22/23 @ 15:53 by KHADAR Toth) Overactive bladder Postural dizziness with presyncope Diabetic polyneuropathy Orthostatic hypotension Atrial fibrillation with rapid ventricular response Chest pain Chest pain Acute on chronic diastolic (congestive) heart failure Ischemic cardiomyopathy Tachy-barbra syndrome admitted for elective pacemaker. Underwent procedure no complications; monitored overnight and discharged home. Surgical History (Updated 12/16/23 @ 10:30 by Lisa Fischer RN) H/O esophagogastroduodenoscopy Social History (Updated 12/16/23 @ 10:30 by Lisa Fischer RN) Smoking Status: Former smoker Tobacco Type: Cigarettes Cigarettes Per Day: 1.5 PPD x 35yrs; Second Hand Exposure: No; Do You Dip or Chew Tobacco: No; Hx Alcohol Use: No Hx Substance Use: No Preferred Language: Andorran Communication Ability: Effective Visual Impairment: Limited Operator Cavity Pump Required: No Beliefs That Will Affect Care: None marital status: / Current Living Situation: Alone Current Living Situation Comment: States she will be looking to move to assisted living Other Information That Helps Us Care for You: No Feels Safe at Home: Yes Safety Concerns: Feels Safe At This Time Assistive Devices: Bedside Commode, Cane and Walker Review of Systems Review of Systems: All systems reviewed & are unremarkable except as noted in HPI & below Physical Exam Constitutional: well developed and well nourished; no acute distress and not ill appearing Neck: normal visual inspection and trachea midline Respiratory: normal respiratory effort, lungs clear to auscultation Cardiovascular: Rate/Rhythm: + irregularly irregular Heart Sounds: normal S1 and normal S2; no murmur Vessels: dorsalis pedis pulses present; no JVD Extremities: no edema Skin: no rashes, warm and dry Psychiatric: A+Ox3, euthymic affect Results & Data Vital Signs (Past 12 Hours) Vital Signs Temp Pulse Pulse Resp BP Pulse Ox O2 Del Method 12/22/23 11:09 36.2 C L 68 18 115/72 90 Room Air 12/22/23 08:15 Room Air 12/22/23 07:56 36.5 C 76 18 140/64 90 Room Air 12/22/23 07:27 69 12/22/23 02:50 36.7 C 70 18 132/75 92 Room Air Laboratory Results CBC 12/22/23 Range/Units 07:35 WBC 9.69 (4.8-10.8) K/ul RBC 3.70 L (4.20-5.40) M/uL Hgb 9.0 L (12.0-16.0) g/dl Hct 30.3 L (37.0-47.0) % Plt Count 373 (130-400) K/uL Comprehensive Metabolic Panel 12/22/23 Range/Units 07:35 Sodium 140 (136-145) mmol/L Potassium 4.6 (3.5-5.1) mmol/L Chloride 105 (98-107) mmol/L Carbon Dioxide 30 (21-32) mmol/L BUN 11 (6-23) mg/dl Creatinine 0.63 (0.6-1.2) mg/dl Glucose 118 H (70-99(Fasting)) mg/dl Calcium 8.9 (8.6-10.3) mg/dl Intake and Output 12/22/23 12/22/23 12/22/23 06:59 14:59 22:59 Intake Total 200 / 500 725 / 825 100 / 825 Output Total 300 / 750 Balance -100 / -250 725 / 825 100 / 825 Intake: IV 200 / 500 200 / 300 100 / 300 Magnesium Sulfate / D5w 1 gm In 100 / 100 100 ml @ 50 mls/hr IV ONE ONE Rx#:[id number] PANTOprazole 40 mg In Dextrose 200 / 500 100 / 200 100 / 200 5% Mini-B 100 ml @ 8 MG/HR 20 mls/hr IV Q5H KAYLA Rx#:[id number] Oral 525 / 525 Output: Urine 300 / 750 Other: Other Intake Source npo sips/chips # Unmeasured Voids 1 Weight 103.6 kg Weight Measurement Method [facility] ([facility]) Coronary artery disease Associated angina: without angina Coronary Disease-Associated Artery/Lesion type: aug[place]ine artery [place] vs. transplanted heart: augustine heart Qualified Code(s): I25.10 - Atherosclerotic heart disease of augustine coronary artery without angina pectoris (7) Hypertension Hypertension type: essential hypertension Qualified Code(s): I10 - Essential (primary) hypertension
[2023-12-22] MEDS ORDERED: Nursing to Pharmacy Communication SCH (14:15)
--- NOTE | 2023-12-22 16:39 | Electrocardiogram Report ---
Test Reason : Blood Pressure : / mmHG Vent. Rate : 075 BPM Atrial Rate : 055 BPM P-R Int : 000 ms QRS Dur : 088 ms QT Int : 408 ms P-R-T Axes : 000 -21 -51 degrees QTc Int : 455 ms Atrial fibrillation with occasional ventricular-paced complexes T wave abnormality, consider anterolateral ischemia Abnormal ECG When compared with ECG of 21-DEC-2023 12:38, Vent. rate has increased BY 11 BPM Confirmed by Broderick Morales ([id number]) on 12/22/2023 4:39:18 PM Referred By: Marquez Kolb Confirmed By:Broderick Morales
[2023-12-23] MEDS: ACETAMINOPHEN 325 MG TAB PO PRN (05:49)
[2023-12-23] MEDS: ALBUT/IPRATROP 3MG/0.5MG NEB 3 ML VIAL NEB PRN (06:20)
[2023-12-23 07:11] LABS: Hematocrit (blood only) 31.8 % (37.0-47.0); Hemoglobin 9.5 g/dl (12.0-16.0); Mean Corpuscular Hemoglobin 24.3 pg (25.0-34.0); Mean Corpuscular Hgb Conc 29.9 g/dL (32.0-36.0); Mean Corpuscular Volume 81.3 fL (80.0-100.0); Mean Platelet Volume 8.8 fL (9.4-12.4); Platelet Count 349 K/uL (130-400); RDW Coefficient of Variation 15.9 % (11.5-14.5); RDW Standard Deviation 47.6 fL (36.4-46.3); Red Blood Count 3.91 M/uL (4.20-5.40); White Blood Count 9.35 K/ul (4.8-10.8)
--- NOTE | 2023-12-23 07:30 | XRay Report ---
XR chest 1V portable HISTORY: 78 years-old Female sob acute shortness of breath COMPARISON: 12/21/2023 TECHNIQUE: AP view of the chest FINDINGS: Cardiomediastinal and hilar silhouettes are unchanged. Left subclavian pacer. No pneumothorax. Pulmon kathy vascular congestion. Bilateral reticulonodular densities. Persistent layering pleural effusions w ith bibasilar consolidation. IMPRESSION: 1. Cardiomegaly with mild pulmonary edema. 2. Layering pleural effusions with dependent bibasilar atelectasis. 3. Mild bilateral reticular nodular opacities, better seen on the CTA chest suggestive of an infectio us or inflammatory bronchiolitis. ACT 112: Negative or not required by law. The above report was generated using voice recognition software. It may contain grammatical, syntax o r spelling errors. Electronically signed by: Michele Maddox M.D. 12/23/2023 7:27 AM
[2023-12-23 07:31] LABS: BUN Creatinine Ratio 13.3 (10-20); Calcium 8.8 mg/dl (8.6-10.3); Creatinine Clr Calc Pharmacy 87.6 ml/min; Est GFR (African American) 100.5 ml/min; Est GFR (Non-African American) 86.7 ml/min; Magnesium 1.6 mg/dl (1.7-2.4); Phosphorus 3.1 mg/dl (2.5-4.9); Potassium 4.3 mmol/L (3.5-5.1)
--- NOTE | 2023-12-23 07:36 | Hospitalist Progress Note ---
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 UGIB In the setting GE junction adenocarcinoma and aspirin and Eliquis Rx, IV PPI s/p PRBC transfusion to maintain hemoglobin of at least 8, history CAD hold Eliquis and aspirin GI consulted, appreciate recs - no procedure planned at this time, cont. supportive care Chest Pain On 12/20 EKG with a fib, trop wnl Chest xray chest CTA repeated -1. Exam is limited by patient motion however no evidence of pulmonary embolus is seen. 2. Ekevs-cn-pgbueodc bilateral pleural effusions with underlying atelectasis. Stable nodules as above. 3. Pulmonary hypertension. Pain control Continue to monitor on telemetry Continues to have chest discomfort on 12/21 however feels improved - ECG - Afib hold midodrine for now (12/21) and will discuss w/ cardiology Resume at 2.5 tid as BP on lower side this AM and giving iv lasix hx CAD status post stent SSS status post PPM Atrial Fibrillation on Eliquis and aspirin , currently on hold as above Cardiology consulted - as above chronic diastolic heart failure (65%%, TTE 2023) Lasix with transfusions Home torsemide on hold in setting of above Continue to monitor hypertension slightly elevated hyperlipidemia on statin Rx DM2 on oral medications well-controlled as of recent hemoglobin A1c of 6.09 Dec 2023 Basal insulin adjusted for n.p.o. status, ISS BG goal [id number] parotid masses GMG ENT following DVT prophylaxis. SCDs Re: UGIB Full code Admission and Anticipated Discharge Date Admission Date: December 20, 2023 Subjective Pt seen in follow up of anemia/ GI bleed, esoph. ca, Afib s/p 2 units of pRBCs on admission Seen by GI - no plan for procedure at this time Developed chest pain- CT PE obtained, Afib on ECG ASA, Eliquis on hold for GI bleed/ anemia- currently no stools/ no bleed No abd. pain Have not started treatment for esoph. ca, seen by Dr. Kolb Says she follows with [facility] cardiology -Aurelio Viera and Dr. Vaca - takes midodrine and torsemide ( and other meds as previously) , placed midodrine on hold yesterday Short of breath early this AM, cxr w/ pulm. vasc. congestion - gave IV lasix, restarting torsemide Review of Systems Review of Systems: All systems reviewed & are unremarkable except as noted in Subjective Physical Exam Physical Exam: GENERAL: morbidly obese F in NAD HEENT: NC/AT, dry mucous membranes NECK : Supple HEART : Irregular, no obvious murmurs LUNGS: mild basilar crackles ABDOMEN: Some distention, soft, nontender EXTREMITIES : Chronic LE swelling, no LE tenderness, moves extremities NEUROLOGIC : awake, alert, no facial asymmetry, speech fluent, answers appropriately, moves extremities SKIN: warm, dry Results & Data Results & Data Vital Signs (Past 12 Hours) Vital Signs Temp Pulse Pulse Resp BP Pulse Ox O2 Del Method 12/23/23 07:00 77 12/23/23 06:21 67 18 98 Nasal Cannula 12/23/23 03:00 36.8 C 88 16 128/82 94 Room Air 12/22/23 23:32 36.5 C 68 16 131/73 90 Room Air 12/22/23 22:14 71 12/22/23 20:00 Room Air 12/22/23 19:51 36.5 C 74 14 144/72 H 94 Room Air O2 Flow Rate 12/23/23 07:00 12/23/23 06:21 2 12/23/23 03:00 12/22/23 23:32 12/22/23 22:14 12/22/23 20:00 12/22/23 19:51 Laboratory Results 12/23/23 12/22/23 12/22/23 Range/Units 06:46 20:03 17:03 WBC 9.35 (4.8-10.8) K/ul RBC 3.91 L (4.20-5.40) M/uL Hgb 9.5 L (12.0-16.0) g/dl Hct 31.8 L (37.0-47.0) % MCV 81.3 (80.0-100.0) fL MCH 24.3 L (25.0-34.0) pg MCHC 29.9 L (32.0-36.0) g/dL RDW Std Deviation 47.6 H (36.4-46.3) fL RDW Coeff of [place] 15.9 H (11.5-14.5) % Plt Count 349 (130-400) K/uL MPV 8.8 L (9.4-12.4) fL Sodium 138 (136-145) mmol/L Potassium 4.3 (3.5-5.1) mmol/L Chloride 104 (98-107) mmol/L Carbon Dioxide 28 (21-32) mmol/L Anion Gap 6 (3-11) BUN 8 (6-23) mg/dl Creatinine 0.60 (0.6-1.2) mg/dl Est Cr Clr Drug Dosing 87.6 ml/min Est GFR ( Amer) 100.5 ml/min Est GFR (Non-Af Amer) 86.7 ml/min BUN/Creatinine Ratio 13.3 (10-20) Glucose 144 H (70-99(Fasting)) mg/dl POC Glucose 214 H 154 H (70-99) mg/dl Calcium 8.8 (8.6-10.3) mg/dl Phosphorus 3.1 (2.5-4.9) mg/dl Magnesium 1.6 L (1.7-2.4) mg/dl 12/22/23 12/22/23 Range/Units 12:22 07:35 WBC 9.69 (4.8-10.8) K/ul RBC 3.70 L (4.20-5.40) M/uL Hgb 9.0 L (12.0-16.0) g/dl Hct 30.3 L (37.0-47.0) % MCV 81.9 (80.0-100.0) fL MCH 24.3 L (25.0-34.0) pg MCHC 29.7 L (32.0-36.0) g/dL RDW Std Deviation 47.7 H (36.4-46.3) fL RDW Coeff of [place] 15.9 H (11.5-14.5) % Plt Count 373 (130-400) K/uL MPV 8.9 L (9.4-12.4) fL Sodium 140 (136-145) mmol/L Potassium 4.6 (3.5-5.1) mmol/L Chloride 105 (98-107) mmol/L Carbon Dioxide 30 (21-32) mmol/L Anion Gap 5 (3-11) BUN 11 (6-23) mg/dl Creatinine 0.63 (0.6-1.2) mg/dl Est Cr Clr Drug Dosing 83.3 ml/min Est GFR ( Amer) 98.9 ml/min Est GFR (Non-Af Amer) 85.3 ml/min BUN/Creatinine Ratio 17.5 (10-20) Glucose 118 H (70-99(Fasting)) mg/dl POC Glucose 129 H (70-99) mg/dl Calcium 8.9 (8.6-10.3) mg/dl Phosphorus 3.6 (2.5-4.9) mg/dl Magnesium 1.7 (1.7-2.4) mg/dl Medications Administered Current Inpatient Medications Acetaminophen (Acetaminophen 325 Mg Tab) 650 mg PO QID PRN PRN Reason: pain/fever Stop: 01/19/24 22:10 Last Admin: 12/23/23 05:49 Dose: 650 mg Albuterol (Albut/Ipratrop 3mg/0.5mg Neb 3 Ml Vial) 3 ml NEB Q4H PRN; Protocol PRN Reason: Shortness Of Breath Or Wheezing Stop: 01/22/24 06:09 Last Admin: 12/23/23 06:20 Dose: 3 ml Artificial Tears (Artificial Tears) 1 drops OP DAILY PRN PRN Reason: Dry Eyes Stop: 01/19/24 23:49 Atorvastatin Calcium (Atorvastatin 40 Mg Tab) 40 mg PO QAM [facility] Stop: 01/20/24 08:59 Last Admin: 12/22/23 08:12 Dose: 40 mg Dextrose (Dextrose 50% 50 Ml Syringe) 25 - 50 ml IV UD PRN; Protocol PRN Reason: Hypoglycemia Protocol Stop: 01/19/24 23:31 Glucagon (Glucagon For Inj 1 Mg Vial) 1 mg SQ UD PRN; Protocol PRN Reason: Hypoglycemia Protocol Stop: 01/19/24 23:31 Glucose (Glucose 40% Gel 15 Gm Tube) 15 - 30 gm PO UD PRN; Protocol PRN Reason: Hypoglycemia Protocol Stop: 01/19/24 23:31 Glucose (Glucose 10 Tab/Tube) 4 - 8 tab PO UD PRN; Protocol PRN Reason: Hypoglycemia Treatment Stop: 01/19/24 23:31 Hydroxyzine HCl (Hydroxyzine Hcl 10 Mg Tab) 10 mg PO QID PRN PRN Reason: Anxiety Stop: 01/19/24 22:10 Last Admin: 12/21/23 08:03 Dose: 10 mg Promethazine HCl 6.25 mg/ (Sodium Chloride) 50.25 mls @ 201 mls/hr IV Q6H PRN PRN Reason: Nausea And Vomiting Stop: 01/19/24 22:10 Pantoprazole Sodium 40 mg/ (Dextrose) 100 mls @ 20 mls/hr IV Q5H [facility]AYLA Stop: 01/19/24 22:14 Last Admin: 12/23/23 06:27 Dose: 8 mg/hr, 20 mls/hr Magnesium Sulfate/Dextrose (Magnesium Sulfate / D5w) 1 gm in 100 mls @ 50 mls/hr IV ONE ONE Stop: 12/23/23 09:31 Insulin Aspart (Insulin Aspart Per Unit Charge) 0 units SC ACHS [facility] Stop: 01/21/24 16:29 Last Admin: 12/22/23 20:35 Dose: 3 units Lactobacillus Acidophilus (Advanced Probiotic 625 Mg Capsule) 1,250 mg PO DAILY [facility] Stop: 01/20/24 08:59 Last Admin: 12/22/23 08:12 Dose: 1,250 mg Magnesium Oxide (Magnesium Oxide 400 Mg Tab) 400 mg PO BID [facility] Stop: 01/22/24 08:59 Metoprolol Succinate (Metoprolol Succ 50mg Ext Rel Tab) 100 mg PO BID [facility] Stop: 01/19/24 23:31 Last Admin: 12/22/23 20:35 Dose: 100 mg Midodrine (Midodrine Hcl 2.5 Mg Tab) 5 mg PO TID@0800,1200,1700 [facility] Stop: 01/20/24 07:59 Last Admin: 12/22/23 08:11 Dose: Not Given Miscellaneous (Carbohydrates For Hypoglycemia ) 15 - 30 gm PO UD PRN PRN Reason: Hypoglycemia Protocol Stop: 01/19/24 23:31 Multivitamins (Multivitamin Tab) 1 tab PO QDL [facility] Stop: 01/20/24 11:29 Last Admin: 12/22/23 11:41 Dose: 1 tab Nitroglycerin (Nitroglycerin Sl 0.4 Mg/Tab Tab) 0.4 mg SL UD PRN PRN Reason: Chest Pain Stop: 01/19/24 23:31 Oxybutynin Chloride (Oxybutynin Chloride 5 Mg Tab) 5 mg PO BID@1200,2100 [facility] Stop: 01/20/24 11:59 Last Admin: 12/22/23 20:37 Dose: 5 mg Polyethylene Glycol (Polyethylene (Miralax) 17 Gm Pack) 17 gm PO DAILY [facility] Stop: 01/22/24 08:59 Tramadol HCl (Tramadol Hcl 50 Mg Tablet) 25 - 50 mg PO Q4H PRN PRN Reason: Pain Stop: 01/19/24 22:10 Last Admin: 12/21/23 13:44 Dose: 50 mg
[2023-12-23] MEDS: MAGNESIUM SULFATE / D5W 1 GM/100 ML BAG IV ONE (07:46)
[2023-12-23] MEDS: FUROSEMIDE 40 MG/4 ML VIAL IV ONE (07:46)
[2023-12-23] MEDS: POLYETHYLENE (MIRALAX) 17 GM PACK PO SCH (09:04)
--- NOTE | 2023-12-23 09:08 | Cardiology Progress Note ---
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 Hx of chronic chest pain with recurrence yesterday prompting cardiology to be consulted for evaluation. Plan: 1. Atypical Chest pain 2. CAD -Known chronic chest pain which patient states the episodes was similar in nature, only more intense and persistent for hours. Pain is reproducible to palpitation. -EKG at time of episodes demonstrates no acute ischemic changes. - Troponin negative x1. -symptoms appear atypical in nature and no acute ischemic concerns on labs or EKG -Obtain pacer interrogation -Obtain echo to assess overall structure and function. -Continue Toprol xl 100mg PO BID, Atorvastatin 40mg daily as part of GDMT -BP elevated and may need to consider adding low dose IRVING-I or ARB to regimen as Torsemide is presently on hold with acute bleed. 3. Permanent atrial fibrillation -Rate controlled. Continue Toprol xl -Discussed risk vs benefit with known A-fib and other comorbidities which increase the patient's risk of an acute thromboembolic event. Unfortunately in the setting of an acute GI bleed, would recommend that her AC therapy continue to remain on hold until her H/H stabilizes. Would appreciate input form heme/onc as she will be starting chemo soon. 4. Acute GI bleed: 5. Anemia requiring transfusions 6. Primary carcinoma of lower third of esophageus -Continued management per primary team with close monitoring. Will need to continue to hold oral AC therapy at this time. Patient understands risk vs benefit. 7. HTN: -Above target. -Continue Toprol xl, but if remains above target, may need to add low dose [place]-I or ARB -Monitor fluid status closely and consider restarting torsemide if H/H remain stable. 8 Dyslipidemia: -Continue Atorvastatin as per current regimen. 12/23/2023: Case discussed with GI this morning and concern for inability to restart oral anticoagulation therapy without further GI evaluation to identify primary source of bleed. Plan is for patient to be NPO after midnight for scope in the AM for further evaluation. Continue to hold anticoagulation therapy today, and monitor H/H closely. Further recommendations pending testing tomorrow. Remainder of plan of care as noted above. Case has been discussed with Dr. Montiel. Further recommendations regarding plan of care as per his assessment. I spent a total of 30 minutes on the date of service in preparation, delivery, documentation of the care provided to the patient excluding any time spent in the performance of separately billed services. KHADAR Toth [facility] Admission and Anticipated Discharge Date Admission Date: December 20, 2023 Supervising Physician Co-Signing Physician Notes I have personally performed a history and physical examination on the patient. I have reviewed the advance practitioner's documentation, and I agree with, and take responsibility for the plan of care. 78 year old female with acute GIB/anemia requiring transfusion. She has received 2 units PRBCs without signs/symptoms of ongoing GI blood loss. Hemoglobin has stabilized. Aspirin and eliquis currently on hold. EGD scheduled 12/24/2023. Further recommendations regarding anticoagulation/antiplatelet medication pending result. I spent a total of 30 minutes on the date of service in preparation, delivery, and documentation of the care provided to this patient, excluding any time spent in the performance of separately billed services. Subjective 12/23/23: Patient seen and examined in follow up today. Feeling well overall. She is currently out of bed in a chair. Denies chest pain, pressure, palpitations, shortness of breath, PND, pre- syncope, syncope or edema. HgB remains stable. patient has not moved her bowels in several days and was started on Miralax regimen. Labs, vitals, diagnostics, telemetry and documentation reviewed. Telemetry reviewed showing Paced rhythm with underlying A-fib. Occ. PVC. Rates 60-90bpm Dr. Montiel in contact with GI this morning to discuss their plan of care. Review of Systems Review of Systems: All systems reviewed & are unremarkable except as noted in HPI & below Physical Exam Constitutional: well developed and well nourished; no acute distress and not ill appearing Neck: normal visual inspection and trachea midline Respiratory: normal respiratory effort, lungs clear to auscultation Cardiovascular: Rate/Rhythm: + irregularly irregular Heart Sounds: normal S1 and normal S2; no murmur Vessels: dorsalis pedis pulses present; no JVD Extremities: no edema Skin: no rashes, warm and dry Psychiatric: A+Ox3, euthymic affect Results & Data Vital Signs (Past 12 Hours) Vital Signs Temp Pulse Pulse Resp BP Pulse Ox O2 Del Method 12/23/23 07:58 36.6 C 53 L 18 106/66 98 Nasal Cannula 12/23/23 07:00 77 12/23/23 06:21 67 18 98 Nasal Cannula 12/23/23 03:00 36.8 C 88 16 128/82 94 Room Air 12/22/23 23:32 36.5 C 68 16 131/73 90 Room Air 12/22/23 22:14 71 O2 Flow Rate 12/23/23 07:58 2 12/23/23 07:00 12/23/23 06:21 2 12/23/23 03:00 12/22/23 23:32 12/22/23 22:14 Laboratory Results CBC 12/23/23 Range/Units 06:46 WBC 9.35 (4.8-10.8) K/ul RBC 3.91 L (4.20-5.40) M/uL Hgb 9.5 L (12.0-16.0) g/dl Hct 31.8 L (37.0-47.0) % Plt Count 349 (130-400) K/uL Comprehensive Metabolic Panel 12/23/23 Range/Units 06:46 Sodium 138 (136-145) mmol/L Potassium 4.3 (3.5-5.1) mmol/L Chloride 104 (98-107) mmol/L Carbon Dioxide 28 (21-32) mmol/L BUN 8 (6-23) mg/dl Creatinine 0.60 (0.6-1.2) mg/dl Glucose 144 H (70-99(Fasting)) mg/dl Calcium 8.8 (8.6-10.3) mg/dl Intake and Output 12/22/23 12/23/23 12/23/23 22:59 06:59 14:59 Intake Total 200 / 2210 1285 / 2210 200 / 200 Balance 200 / 2210 1285 / 2210 200 / 200 Intake: IV 200 / 600 200 / 600 200 / 200 Magnesium Sulfate / D5w 1 gm In 100 / 100 100 ml @ 50 mls/hr IV ONE ONE Rx#:[id number] PANTOprazole 40 mg In Dextrose 200 / 500 200 / 500 100 / 100 5% Mini-B 100 ml @ 8 MG/HR 20 mls/hr IV Q5H [facility] Rx#:[id number] Oral 1085 / 1610 Other: Other Intake Source SIPS Weight 103.8 kg 103.8 kg Weight Measurement Method Built in [facility] Patient Weight 12/24/23 06:59 Weight 103.8 kg (2) Coronary artery disease Associated angina: without angina Coronary Disease-Associated Artery/Lesion type: [place] artery [place] vs. transplanted heart: [place] heart Qualified Code(s): I25.10 - Atherosclerotic heart disease of [place] coronary artery without angina pectoris (7) Hypertension Hypertension type: essential hypertension Qualified Code(s): I10 - Essential (primary) hypertension
[2023-12-23] MEDS: MAGNESIUM OXIDE 400 MG TAB PO SCH (09:28)
[2023-12-23] MEDS: guaiFENesin 600 MG TABCR PO SCH (09:28)
--- NOTE | 2023-12-23 10:19 | Gastroenterology Progress Note ---
Date of Service December 23, 2023 Assessment & Plan (1) Melena: (2) Anemia: Plan No signs of active GI bleeding at this time. hgb is improved. primary team wishes to restart anticoagulation and questioning her having an EGD prior to doing so. I discussed this with the patient and she is agreeable to having done. Unfortunately she already had breakfast today. - NPO at midnight. - will plan for EGD tomorrow. - can continue to monitor hgb/hct. Admission and Anticipated Discharge Date Admission Date: December 20, 2023 Supervising Physician Co-Signing Physician Notes Agree with Victor Manuel Karimi, PAC as above Interviewed and examined patient and agree with above Abd: Soft, NT, ND, +BS Continue current therapy and supportive care Proceed with EGD in AM Subjective Seen earlier in hospital stay for dark stools and anemia. no signs of any active bleeding at this time. 12/22 hgb 9.5 (previously was 9). we were contacted by the primary team as they are concerned with her having to restart anticoagulation and requesting EGD. Patient tolerated breakfast this morning without issues. Review of Systems Review of Systems: All systems reviewed & are unremarkable except as noted in HPI & below Physical Exam Constitutional: WD/WN, vitals as above Respiratory: nonlabored breathing. Cardiovascular: RRR Gastrointestinal (Abdomen): normal bowel sounds, soft, nontender, no hepatosplenomegaly Psychiatric: Orientation: alert and oriented x 3 Affect: euthymic affect Results & Data Results & Data Vital Signs (Past 12 Hours) Vital Signs Temp Pulse Pulse Resp BP Pulse Ox O2 Del Method 12/23/23 09:00 Nasal Cannula 12/23/23 07:58 97.9 F 53 L 18 106/66 98 Nasal Cannula 12/23/23 07:00 77 12/23/23 06:21 67 18 98 Nasal Cannula 12/23/23 03:00 98.2 F 88 16 128/82 94 Room Air 12/22/23 23:32 97.7 F 68 16 131/73 90 Room Air O2 Flow Rate 12/23/23 09:00 2 12/23/23 07:58 2 12/23/23 07:00 12/23/23 06:21 2 12/23/23 03:00 12/22/23 23:32 Coding Level of Care Code 68791 SUB INP/OBS CARE 2/35MIN Diagnoses Melena K92.1 Anemia D64.9 Anemia type: unspecified type (2) Anemia Anemia type: unspecified type Qualified Code(s): D64.9 - Anemia, unspecified
[2023-12-23] MEDS: MIDODRINE HCL 2.5 MG TAB PO SCH (12:37)
[2023-12-24 07:11] LABS: Hematocrit (blood only) 32.2 % (37.0-47.0); Hemoglobin 9.6 g/dl (12.0-16.0); Mean Corpuscular Hemoglobin 24.4 pg (25.0-34.0); Mean Corpuscular Hgb Conc 29.8 g/dL (32.0-36.0); Mean Corpuscular Volume 81.7 fL (80.0-100.0); Platelet Count 356 K/uL (130-400); RDW Coefficient of Variation 16.1 % (11.5-14.5); RDW Standard Deviation 48.7 fL (36.4-46.3); Red Blood Count 3.94 M/uL (4.20-5.40); White Blood Count 9.88 K/ul (4.8-10.8)
--- NOTE | 2023-12-24 07:35 | Hospitalist Progress Note ---
Date of Service December 24, 2023 Assessment & Plan (1) Acute GI bleeding: Plan Pt is a 78yoF with PMhx significant for chronic diastolic heart failure (65%%, TTE 2023), CAD status post stent, SSS sp PPM on Eliquis, mild TR, PSVT hypertension, hyperlipidemia, GE junction adenocarcinoma, DM2 on oral medications, PMR, parotid masses, pulmonary nodule, past tobacco abuse admitted for suspected GI Bleed. UGIB Acute blood loss anemia In the setting GE junction adenocarcinoma and aspirin and Eliquis Rx, IV PPI s/p PRBC transfusion to maintain hemoglobin of at least 8, history CAD hold Eliquis and aspirin GI consulted and discussed with - underwent EGD 12/23 - Findings: A small, ulcerating mass with minimal bleeding was found at the gastroesophageal junction, 40 cm from the incisors. The mass was non-obstructing. Diffuse moderate inflammation characterized by erythema was found in the entire examined stomach. The examined duodenum was normal. 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 - Gastritis. - Normal examined duodenum. - No specimens collected. Recommendation: - [facility]. - Resume previous diet. - Continue present medications. Per GI - recommend to hold Eliquis and only cont. ASA - this was also discussed with cardiology - in agreement Hgb stable, current Hgb 9.6 - recommend to re-check CBC within 1 week Chest Pain On 12/20 EKG with a fib, trop wnl Chest xray chest CTA repeated -1. Exam is limited by patient motion however no evidence of pulmonary embolus is seen. 2. Ciamc-ob-qrkailao bilateral pleural effusions with underlying atelectasis. Stable nodules as above. 3. Pulmonary hypertension. Pain control Continue to monitor on telemetry Continued to have chest discomfort on 12/21 however feels improved - ECG - Afib Cardiology following as above Decreased midodrine to 2.5 tid as BP Chest pain has resolved hx CAD status post stent SSS status post PPM Atrial Fibrillation on Eliquis and aspirin , currently on hold as above - will restart ASA, cont. to hold Eliquis Cardiology consulted - as above chronic diastolic heart failure (65%%, TTE 2023) Lasix with transfusions Home torsemide on hold in setting of above Continue to monitor hypertension slightly elevated hyperlipidemia on statin Rx DM2 on oral medications well-controlled as of recent hemoglobin A1c of 6.09 Dec 2023 Basal insulin adjusted for n.p.o. status, ISS BG goal [id number] parotid masses GMG ENT following DVT prophylaxis. SCDs Re: UGIB Full code Admission and Anticipated Discharge Date Admission Date: December 20, 2023 Subjective Pt seen in follow up of anemia/ GI bleed, esoph. ca, Afib s/p 2 units of pRBCs on admission Seen by GI and discussed with - plan for EGD today ASA, Eliquis on hold for GI bleed/ anemia No abd. pain Have not started treatment for esoph. ca, seen by Dr. Kolb Feeling well today and inquires about going home Review of Systems Review of Systems: All systems reviewed & are unremarkable except as noted in Subjective Physical Exam Physical Exam: GENERAL: morbidly obese F in NAD HEENT: NC/AT, dry mucous membranes NECK : Supple HEART : Irregular, no obvious murmurs LUNGS: mild basilar crackles ABDOMEN: Some distention, soft, nontender EXTREMITIES : Chronic LE swelling, no LE tenderness, moves extremities NEUROLOGIC : awake, alert, no facial asymmetry, speech fluent, answers appropriately, moves extremities SKIN: warm, dry Results & Data Results & Data Vital Signs (Past 12 Hours) Vital Signs Temp Pulse Pulse Resp BP Pulse Ox O2 Del Method 12/24/23 07:00 82 12/24/23 03:21 36.9 C 87 16 119/77 94 Room Air 12/23/23 23:12 36.6 C 71 16 140/78 91 Room Air 12/23/23 22:08 67 12/23/23 21:41 56 L 12/23/23 20:30 36.5 C 61 20 138/77 92 Nasal Cannula O2 Flow Rate 12/24/23 07:00 12/24/23 03:21 12/23/23 23:12 12/23/23 22:08 12/23/23 21:41 12/23/23 20:30 2 Laboratory Results 12/24/23 12/23/23 12/23/23 Range/Units 06:51 20:01 17:29 WBC 9.88 (4.8-10.8) K/ul RBC 3.94 L (4.20-5.40) M/uL Hgb 9.6 L (12.0-16.0) g/dl Hct 32.2 L (37.0-47.0) % MCV 81.7 (80.0-100.0) fL MCH 24.4 L (25.0-34.0) pg MCHC 29.8 L (32.0-36.0) g/dL RDW Std Deviation 48.7 H (36.4-46.3) fL RDW Coeff of [place] 16.1 H (11.5-14.5) % Plt Count 356 (130-400) K/uL MPV 9.0 L (9.4-12.4) fL Sodium Pending Potassium Pending Chloride Pending Carbon Dioxide Pending Anion Gap Pending BUN Pending Creatinine Pending Est Cr Clr Drug Dosing Pending Est GFR ( Amer) Pending Est GFR (Non-Af Amer) Pending BUN/Creatinine Ratio Pending Glucose Pending POC Glucose 141 H 187 H (70-99) mg/dl Calcium Pending Phosphorus Pending Magnesium Pending Stool H. pylori Ag Crossmatch 12/23/23 12/23/23 12/23/23 Range/Units 15:55 12:30 08:01 WBC (4.8-10.8) K/ul RBC (4.20-5.40) M/uL Hgb (12.0-16.0) g/dl Hct (37.0-47.0) % MCV (80.0-100.0) fL MCH (25.0-34.0) pg MCHC (32.0-36.0) g/dL RDW Std Deviation (36.4-46.3) fL RDW Coeff of [place]osi (11.5-14.5) % Plt Count (130-400) K/uL MPV (9.4-12.4) fL Sodium Potassium Chloride Carbon Dioxide Anion Gap BUN Creatinine Est Cr Clr Drug Dosing Est GFR ( Amer) Est GFR (Non-Af Amer) BUN/Creatinine Ratio Glucose POC Glucose 186 H 169 H (70-99) mg/dl Calcium Phosphorus Magnesium Stool H. pylori Ag Pending Crossmatch 12/20/23 Range/Units 17:46 WBC (4.8-10.8) K/ul RBC (4.20-5.40) M/uL Hgb (12.0-16.0) g/dl Hct (37.0-47.0) % MCV (80.0-100.0) fL MCH (25.0-34.0) pg MCHC (32.0-36.0) g/dL RDW Std Deviation (36.4-46.3) fL RDW Coeff of [place]osi (11.5-14.5) % Plt Count (130-400) K/uL MPV (9.4-12.4) fL Sodium Potassium Chloride Carbon Dioxide Anion Gap BUN Creatinine Est Cr Clr Drug Dosing Est GFR ( Amer) Est GFR (Non-Af Amer) BUN/Creatinine Ratio Glucose POC Glucose (70-99) mg/dl Calcium Phosphorus Magnesium Stool H. pylori Ag Crossmatch See Detail Medications Administered Current Inpatient Medications Acetaminophen (Acetaminophen 325 Mg Tab) 650 mg PO QID PRN PRN Reason: pain/fever Stop: 01/19/24 22:10 Last Admin: 12/23/23 05:49 Dose: 650 mg Albuterol (Albut/Ipratrop 3mg/0.5mg Neb 3 Ml Vial) 3 ml NEB Q4H PRN; Protocol PRN Reason: Shortness Of Breath Or Wheezing Stop: 01/22/24 06:09 Last Admin: 12/23/23 06:20 Dose: 3 ml Artificial Tears (Artificial Tears) 1 drops OP DAILY PRN PRN Reason: Dry Eyes Stop: 01/19/24 23:49 Atorvastatin Calcium (Atorvastatin 40 Mg Tab) 40 mg PO QAM [facility] Stop: 01/20/24 08:59 Last Admin: 12/23/23 09:01 Dose: 40 mg Dextrose (Dextrose 50% 50 Ml Syringe) 25 - 50 ml IV UD PRN; Protocol PRN Reason: Hypoglycemia Protocol Stop: 01/19/24 23:31 Glucagon (Glucagon For Inj 1 Mg Vial) 1 mg SQ UD PRN; Protocol PRN Reason: Hypoglycemia Protocol Stop: 01/19/24 23:31 Glucose (Glucose 40% Gel 15 Gm Tube) 15 - 30 gm PO UD PRN; Protocol PRN Reason: Hypoglycemia Protocol Stop: 01/19/24 23:31 Glucose (Glucose 10 Tab/Tube) 4 - 8 tab PO UD PRN; Protocol PRN Reason: Hypoglycemia Treatment Stop: 01/19/24 23:31 Guaifenesin (Guaifenesin 600 Mg Tabcr) 600 mg PO Q12 [facility] Stop: 01/22/24 09:04 Last Admin: 12/23/23 21:40 Dose: 600 mg Hydroxyzine HCl (Hydroxyzine Hcl 10 Mg Tab) 10 mg PO QID PRN PRN Reason: Anxiety Stop: 01/19/24 22:10 Last Admin: 12/21/23 08:03 Dose: 10 mg Promethazine HCl 6.25 mg/ (Sodium Chloride) 50.25 mls @ 201 mls/hr IV Q6H PRN PRN Reason: Nausea And Vomiting Stop: 01/19/24 22:10 Pantoprazole Sodium 40 mg/ (Dextrose) 100 mls @ 20 mls/hr IV Q5H [facility] Stop: 01/19/24 22:14 Last Admin: 12/24/23 02:40 Dose: 8 mg/hr, 20 mls/hr Insulin Aspart (Insulin Aspart Per Unit Charge) 0 units SC ACHS [facility] Stop: 01/21/24 16:29 Last Admin: 12/23/23 21:55 Dose: 1 units Lactobacillus Acidophilus (Advanced Probiotic 625 Mg Capsule) 1,250 mg PO DAILY [facility] Stop: 01/20/24 08:59 Last Admin: 12/23/23 09:00 Dose: 1,250 mg Magnesium Oxide (Magnesium Oxide 400 Mg Tab) 400 mg PO BID [facility] Stop: 01/22/24 08:59 Last Admin: 12/23/23 21:40 Dose: 400 mg Metoprolol Succinate (Metoprolol Succ 50mg Ext Rel Tab) 100 mg PO BID [facility] Stop: 01/19/24 23:31 Last Admin: 12/23/23 21:41 Dose: Not Given Midodrine (Midodrine Hcl 2.5 Mg Tab) 2.5 mg PO TID@0800,1200,1700 [facility] Stop: 01/22/24 11:59 Last Admin: 12/23/23 16:34 Dose: 2.5 mg Miscellaneous (Carbohydrates For Hypoglycemia ) 15 - 30 gm PO UD PRN PRN Reason: Hypoglycemia Protocol Stop: 01/19/24 23:31 Multivitamins (Multivitamin Tab) 1 tab PO QDL [facility] Stop: 01/20/24 11:29 Last Admin: 12/23/23 12:37 Dose: 1 tab Nitroglycerin (Nitroglycerin Sl 0.4 Mg/Tab Tab) 0.4 mg SL UD PRN PRN Reason: Chest Pain Stop: 06/19/24 23:31 Oxybutynin Chloride (Oxybutynin Chloride 5 Mg Tab) 5 mg PO BID@1200,2100 [facility] Stop: 01/20/24 11:59 Last Admin: 12/23/23 21:40 Dose: 5 mg Polyethylene Glycol (Polyethylene (Miralax) 17 Gm Pack) 17 gm PO DAILY [facility] Stop: 01/22/24 08:59 Last Admin: 12/23/23 09:04 Dose: 17 gm Torsemide (Torsemide 10 Mg Tab) 10 mg PO DAILY [facility] Stop: 01/23/24 08:59 Tramadol HCl (Tramadol Hcl 50 Mg Tablet) 25 - 50 mg PO Q4H PRN PRN Reason: Pain Stop: 01/19/24 22:10 Last Admin: 12/21/23 13:44 Dose: 50 mg
[2023-12-24 07:39] LABS: BUN Creatinine Ratio 11.1 (10-20); Calcium 8.5 mg/dl (8.6-10.3); Creatinine Clr Calc Pharmacy 81.7 ml/min; Est GFR (African American) 98.9 ml/min; Est GFR (Non-African American) 85.3 ml/min; Magnesium 1.6 mg/dl (1.7-2.4); Phosphorus 3.4 mg/dl (2.5-4.9); Potassium 4.4 mmol/L (3.5-5.1)
[2023-12-24] MEDS: TORSEMIDE 10 MG TAB PO SCH (08:47)
--- NOTE | 2023-12-24 09:00 | Cardiology Progress Note ---
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 Hx of chronic chest pain with recurrence yesterday prompting cardiology to be consulted for evaluation. Plan: 1. Atypical Chest pain 2. CAD -Known chronic chest pain which patient states the episodes was similar in nature, only more intense and persistent for hours. Pain is reproducible to palpitation. -EKG at time of episodes demonstrates no acute ischemic changes. - Troponin negative x1. -symptoms appear atypical in nature and no acute ischemic concerns on labs or EKG -Obtain pacer interrogation -Obtain echo to assess overall structure and function. -Continue Toprol xl 100mg PO BID, Atorvastatin 40mg daily as part of GDMT -BP elevated and may need to consider adding low dose IRVING-I or ARB to regimen as Torsemide is presently on hold with acute bleed. 3. Permanent atrial fibrillation -Rate controlled. Continue Toprol xl -Discussed risk vs benefit with known A-fib and other comorbidities which increase the patient's risk of an acute thromboembolic event. Unfortunately in the setting of an acute GI bleed, would recommend that her AC therapy continue to remain on hold until her H/H stabilizes. Would appreciate input form heme/onc as she will be starting chemo soon. 4. Acute GI bleed: 5. Anemia requiring transfusions 6. Primary carcinoma of lower third of esophageus -Continued management per primary team with close monitoring. Will need to continue to hold oral AC therapy at this time. Patient understands risk vs benefit. 7. HTN: -Above target. -Continue Toprol xl, but if remains above target, may need to add low dose [place]-I or ARB -Monitor fluid status closely and consider restarting torsemide if H/H remain stable. 8 Dyslipidemia: -Continue Atorvastatin as per current regimen. 12/23/2023: Case discussed with GI this morning and concern for inability to restart oral anticoagulation therapy without further GI evaluation to identify primary source of bleed. Plan is for patient to be NPO after midnight for scope in the AM for further evaluation. Continue to hold anticoagulation therapy today, and monitor H/H closely. Further recommendations pending testing tomorrow. Remainder of plan of care as noted above. Case has been discussed with Dr. Montiel. Further recommendations regarding plan of care as per his assessment. I spent a total of 30 minutes on the date of service in preparation, delivery, documentation of the care provided to the patient excluding any time spent in the performance of separately billed services. KHADAR Toth [facility] Admission and Anticipated Discharge Date Admission Date: December 20, 2023 Supervising Physician Co-Signing Physician Notes Attending Staff: Patient seen and evaluated with [facility] Staff Concur with observations and plans 78 yo woman presenting with anemia - Hgb 7.1, then 6.4 + Melena Recent Dx of Esophageal CA Transfusion Consultation: * Chronic Afib - question of anticoagulation. GI evaluation: * Endoscopy * Bleeding for GE Junction Tumor * Plans for ASA ONLY; no systemic anticoagulation. Plans: * Afib * No RVR * Current HR 93 BPM, SBP 113 mmHg * Continue Toprol XL 100 mg po BID for ongoing rate control * No systemic anticoagulation as per GI recs s/p endocscopy * ASA 81 mg po per day - trial * Ongoing oncologic follow up * Please arrange for follow up with [facility] (Aurelio Viera) * 40 min spent addressing challeges, educating and advancing daily plan of care * Please call back with any additional questions Robin Jalloh Subjective 12/24/23: Patient seen and examined in follow up today. Feeling better Labs, vitals, diagnostics, telemetry and documentation reviewed. Telemetry reviewed showing Paced/underlying A-fib. rates typically 80's -90's, lowest 60bpm overnight. NPO for upper endoscopy today. Review of Systems Review of Systems: All systems reviewed & are unremarkable except as noted in HPI & below Physical Exam Physical Exam: No elevation in JVP S1S2 No significant murmurs CTA B on Anterior Exam 1+ Bilateral LE edema - chronic venous s tasis changes (lymphedema hx) Constitutional: well developed and well nourished; no acute distress and not ill appearing Neck: normal visual inspection and trachea midline Respiratory: normal respiratory effort, lungs clear to auscultation Cardiovascular: Rate/Rhythm: + irregularly irregular Heart Sounds: normal S1 and normal S2; no murmur Vessels: dorsalis pedis pulses present; no JVD Extremities: no edema Skin: no rashes, warm and dry Psychiatric: A+Ox3, euthymic affect Results & Data Vital Signs (Past 12 Hours) Vital Signs Temp Pulse Pulse Resp BP Pulse Ox O2 Del Method 12/24/23 08:08 36.7 C 91 H 18 104/44 L 93 Room Air 12/24/23 07:00 82 12/24/23 03:21 36.9 C 87 16 119/77 94 Room Air 12/23/23 23:12 36.6 C 71 16 140/78 91 Room Air 12/23/23 22:08 67 12/23/23 21:41 56 L Laboratory Results CBC 12/24/23 Range/Units 06:51 WBC 9.88 (4.8-10.8) K/ul RBC 3.94 L (4.20-5.40) M/uL Hgb 9.6 L (12.0-16.0) g/dl Hct 32.2 L (37.0-47.0) % Plt Count 356 (130-400) K/uL Comprehensive Metabolic Panel 12/24/23 Range/Units 06:51 Sodium 140 (136-145) mmol/L Potassium 4.4 (3.5-5.1) mmol/L Chloride 104 (98-107) mmol/L Carbon Dioxide 31 (21-32) mmol/L BUN 7 (6-23) mg/dl Creatinine 0.63 (0.6-1.2) mg/dl Glucose 144 H (70-99(Fasting)) mg/dl Calcium 8.5 L (8.6-10.3) mg/dl Intake and Output 12/23/23 12/24/23 12/24/23 22:59 06:59 14:59 Intake Total 91 / 1919 100 / 1919 141.333 / 141.333 Output Total 851 / 2701 Balance 68 / -782 100 / -782 141.333 / 141.333 Intake: IV 199 / 499 100 / 499 141.333 / 141.333 PANTOprazole 40 mg In Dextrose 199 / 399 100 / 399 141.333 / 141.333 5% Mini-B 100 ml @ 8 MG/HR 20 mls/hr IV Q5H [facility] Rx#:[id number] Sodium Chloride 0.9% 500 ml @ 0 / 0 15 mls/hr IV .Q24H [facility] Rx#: [id number] Oral 720 / 1420 Output: Urine 850 / 2700 # Bowel Movements Other: Other Intake Source NPO Weight 100.1 kg 100.1 kg Patient Weight 12/25/23 06:59 Weight 100.1 kg Diagnostic Findings Echocardiogram 10/21/2023 LVEF 60-65% mild concentric LVH Basal septum is thickened and angulated with sigmoid septum left atrium severely dilated Mild aortic valve sclerosis without stenosis mild TR No pulm. HTN (2) Coronary artery disease Associated angina: without angina Coronary Disease-Associated Artery/Lesion type: [place] artery [place] vs. transplanted heart: [place] heart Qualified Code(s): I25.10 - Atherosclerotic heart disease of [place] coronary artery without angina pectoris (7) Hypertension Hypertension type: essential hypertension Qualified Code(s): I10 - Essential (primary) hypertension
[2023-12-24] MEDS: SODIUM CHLORIDE 0.9% 500 ML IV SCH ×2 (09:16)
--- NOTE | 2023-12-24 09:16 | Communication Note ---
Date of Service: December 24, 2023 S: Ciara is feeling well this AM. She has not had any further bleeding. She denies any fevers, chills, nausea, vomiting, hematemesis, melena or hematochezi a. She has no further complaints. O: VSS Chest: Decreased BS in bilateral bases CVS: Irregularly irregular Abd: Soft, NT, ND, +BS A: 78 yo CF with Esophageal cancer, melena and acute blood loss anemia. P: Proceed with EGD now. Continue current therapy and supportive care.
--- NOTE | 2023-12-24 09:41 | Anesthesiology Consultation ---
Date of Service December 24, 2023 Assessment & Plan Chart Review Chart Review: Acceptable Risk for Surgery and Patient NOT seen in Pre Admission Testing Consults Requested none ASA ASA3 Proposed Anesthesia Anesthesia Type: MAC Risk / Benefits Reviewed With: PT / POA / Parent / Guardian, Accepts Plan and Informed Consent Obtained History Surgery Operation Date: 12/24/23 16:30 Proposed Procedures p Esophagogastroduodenoscopy Dr Evans - Farhad Coronel Case, DO Height/Weight Height: 5 ft 3 in Weight: 100.1 kg Allergies Allergy/AdvReac Type Severity Reaction Status Date / Time cetirizine AdvReac Intermediate Hallucinati Verified 12/24/23 09:07 ng hydroxyzine AdvReac Intermediate Hallucinati Verified 12/24/23 09:07 ng Medications Home Medications Medication Instructions Recorded Confirmed Last Taken apixaban 5 mg tablet (Eliquis) 5 mg PO AMHS 06/18/18 12/20/23 12/20/23 09:00 atorvastatin 40 mg tablet 40 mg PO QAM 06/18/18 12/20/23 12/20/23 insulin glargine 100 unit/mL (3 20 unit subcut BIDM 06/18/18 12/20/23 12/20/23 08:00 mL) subcutaneous pen (Lantus Solostar U-100 Insulin) multivitamin 1 tab PO QDL 06/18/18 12/20/23 05/16/22 nitroglycerin 0.4 mg sublingual 0.4 mg sublingual DIRECTED PRN 06/18/18 12/20/23 Unknown tablet (Nitrostat) Chest Pain oxybutynin chloride 5 mg tablet 5 mg PO BID 06/18/18 12/20/23 12/20/23 09:00 glipizide 5 mg tablet 5 mg PO BIDM 04/11/20 12/20/23 12/20/23 08:00 acetaminophen 500 mg tablet 1,000 mg PO TID PRN PAIN/FEVER 05/18/22 12/20/23 Unknown (Tylenol Extra Strength) aspirin 81 mg tablet,delayed 81 mg PO QAM 05/18/22 12/20/23 12/20/23 release cinnamon bark 500 mg capsule 1,000 mg PO QDD 05/18/22 12/20/23 05/16/22 (Cinnamon) magnesium oxide 400 mg PO QDL 05/18/22 12/20/23 05/16/22 peg 400-propylene glycol (PF) 0.4 1 drp OPB DAILY PRN Dry Eyes 05/18/22 12/20/23 Unknown %-0.3 % eye drops in a dropperette (Systane (PF)) midodrine 5 mg tablet 5 mg PO TID #90 tabs 05/26/22 12/20/23 12/20/23 12:00 L.acidop,casei,lactis,rham-B.lact,prince 1 cap PO DAILY #30 caps 10/27/23 12/20/23 Unknown 625 mg (10 billion cell) capsule (Advanced Probiotic) digoxin 125 mcg (0.125 mg) tablet 0.125 mg PO UD #30 tabs 10/27/23 12/20/23 12/19/23 pantoprazole 40 mg tablet,delayed 40 mg PO BID #60 tabs 10/27/23 12/20/23 12/20/23 09:00 release torsemide 10 mg tablet 10 mg PO DAILY #30 tabs 10/27/23 12/20/23 12/20/23 09:00 calcium carbonate 600 mg-vitamin 1 cap PO BID 12/16/23 12/20/23 Unknown D3 12.5 mcg (500 unit) capsule (Calcium 600 with Vitamin D3) metoprolol succinate 100 mg 100 mg PO BID 12/16/23 12/20/23 Unknown tablet,extended release 24 hr cetirizine 5 mg tablet 5 mg PO DAILY PRN .ALLERGIES 12/20/23 12/20/23 Unknown hydroxyzine HCl 10 mg tablet 0 mg PO DIRECTED PRN .. 12/20/23 12/20/23 Unknown ketoconazole 2 % shampoo 1 applic topical DIRECTED 12/20/23 12/20/23 Unknown Active Medications Generic Name Dose Route Start Last Admin Trade Name Freq PRN Reason Stop Dose Admin Acetaminophen 650 mg 12/20/23 22:11 12/23/23 05:49 Acetaminophen 325 Mg Tab PO 01/19/24 22:10 650 mg QID PRN Administration pain/fever Albuterol 3 ml 12/23/23 06:10 12/23/23 06:20 Albut/Ipratrop 3mg/0.5mg Neb 3 Ml Vial NEB 01/22/24 06:09 3 ml Q4H PRN Administration Shortness Of Breath Or Wheezing Protocol Atorvastatin Calcium 40 mg 12/21/23 09:00 12/24/23 08:47 Atorvastatin 40 Mg Tab PO 01/20/24 08:59 40 mg QAM KAYLA Administration Guaifenesin 600 mg 12/23/23 09:05 12/24/23 08:46 Guaifenesin 600 Mg Tabcr PO 01/22/24 09:04 Not Given Q12 KAYLA Hydroxyzine HCl 10 mg 12/20/23 22:11 12/21/23 08:03 Hydroxyzine Hcl 10 Mg Tab PO 01/19/24 22:10 10 mg QID PRN Administration Anxiety Pantoprazole Sodium 40 mg/ 100 mls @ 20 mls/hr 12/20/23 23:30 12/24/23 07:56 Dextrose IV 01/19/24 22:14 8 mg/hr Q5H KAYLA 20 mls/hr Administration 8 MG/HR Sodium Chloride 500 mls @ 15 mls/hr 12/24/23 07:30 12/24/23 09:16 Nss IV 12/25/23 07:29 Infused .Q24H KAYLA Infusion Sodium Chloride 500 mls @ 15 mls/hr 12/24/23 07:30 12/24/23 09:16 Nss IV 12/25/23 07:29 Not Given .Q24H KAYLA Insulin Aspart 0 units 12/22/23 16:30 12/24/23 08:55 Insulin Aspart Per Unit Charge SC 01/21/24 16:29 1 units ACHS KAYLA Administration Lactobacillus Acidophilus 1,250 mg 12/21/23 09:00 12/23/23 09:00 Advanced Probiotic 625 Mg Capsule PO 01/20/24 08:59 1,250 mg DAILY KAYLA Administration Magnesium Oxide 400 mg 12/23/23 09:00 12/24/23 08:46 Magnesium Oxide 400 Mg Tab PO 01/22/24 08:59 400 mg BID KAYLA Administration Metoprolol Succinate 100 mg 12/20/23 23:32 12/24/23 08:46 Metoprolol Succ 50mg Ext Rel Tab PO 01/19/24 23:31 100 mg BID KAYLA Administration Midodrine 2.5 mg 12/23/23 12:00 12/24/23 08:45 Midodrine Hcl 2.5 Mg Tab PO 01/22/24 11:59 2.5 mg TID@0800,1200,1700 KAYLA Administration Multivitamins 1 tab 12/21/23 11:30 12/23/23 12:37 Multivitamin Tab PO 01/20/24 11:29 1 tab QDL KAYLA Administration Oxybutynin Chloride 5 mg 12/21/23 12:00 12/23/23 21:40 Oxybutynin Chloride 5 Mg Tab PO 01/20/24 11:59 5 mg BID@1200,2100 KAYLA Administration Polyethylene Glycol 17 gm 12/23/23 09:00 12/24/23 08:47 Polyethylene (Miralax) 17 Gm Pack PO 01/22/24 08:59 Not Given DAILY KAYLA Torsemide 10 mg 12/24/23 09:00 12/24/23 08:47 Torsemide 10 Mg Tab PO 01/23/24 08:59 10 mg DAILY KAYLA Administration Tramadol HCl 25 - 50 mg 12/20/23 22:11 12/21/23 13:44 Tramadol Hcl 50 Mg Tablet PO 01/19/24 22:10 50 mg Q4H PRN Administration Pain NPO Date Last Intake of Fluids: 12/24/23 Time Last Intake of Fluids: 08:00 Last Intake of Fluids Comment: sip with meds Date Last Intake of Solids: 12/19/23 Past Medical History Medical History Overactive bladder Postural dizziness with presyncope Diabetic polyneuropathy Orthostatic hypotension Atrial fibrillation with rapid ventricular response Chest pain Chest pain Acute on chronic diastolic (congestive) heart failure Ischemic cardiomyopathy Tachy-barbra syndrome admitted for elective pacemaker. Underwent procedure no complications; monitored overnight and discharged home. Exercise / Class Metabolic Activity II 4-5 Yardwork/Stairs/Walk up hill Past Surgical History Surgical History H/O esophagogastroduodenoscopy Past Anesthesia History No Hx of Anesthesia Complications and No Family Hx of Anesthesia Complications History of PONV No Hx of PONV and No Hx of Motion Sickness Social History Smoking Status: Former smoker tobacco type: cigarettes Smoking cigarettes per day: 1.5 PPD x 35yrs Do You Dip or Chew Tobacco: No Hx Alcohol Use: No alcohol intake frequency: holidays/special occasions only Hx Substance Use: No substance use type: does not use Review of Systems ROS Unobtainable: All systems reviewed & are unremarkable except as noted in HPI & below Physical Exam Vital Signs Last Vital Signs Temp 36.7 C 12/24/23 09:08 Pulse 89 12/24/23 09:08 Resp 16 12/24/23 09:08 BP 169/85 H 12/24/23 09:08 Pulse Ox 98 12/24/23 09:08 O2 Del Method Room Air 12/24/23 09:08 O2 Flow Rate 2 12/23/23 20:30 ENMT Mouth: no TMJ abnormality Thyromental Distance: > or= 3.5 Finger Breadths Mallampati Class: II Neck normal visual inspection and trachea midline; neck extension not limited Respiratory normal respiratory effort Auscultation: lungs clear to auscultation bilaterally Cardiovascular Rate/Rhythm: regular rate and regular rhythm Heart Sounds: no murmur Musculoskeletal Spine: normal cervical ROM Extremities: full ROM of extremities Neurologic moves all extremities Psychiatric Orientation: alert and oriented x 3 Testing Laboratory Results 12/24/23 06:51 12/24/23 06:51 PT 13.0 Seconds (9.0-12.0) H 12/20/23 17:46 INR 1.2 (0.9-1.1) H 12/20/23 17:46 Urine Color Yellow 12/21/23 00:06 Urine Appearance Clear (Clear) 12/21/23 00:06 Urine pH 6.5 (4.5-7.5) 12/21/23 00:06 Ur Specific [place] 1.004 (1.000-1.030) 12/21/23 00:06 Urine Protein Negative (Negative) 12/21/23 00:06 Urine Glucose (UA) Negative (Negative) 12/21/23 00:06 Urine Ketones Negative (Negative) 12/21/23 00:06 Urine Nitrite Negative (Negative) 12/21/23 00:06 Ur Leukocyte Esterase Negative (Negative) 12/21/23 00:06 Blood Type A Positive 12/20/23 17:46 Antibody Screen NEGATIVE 12/20/23 17:46 12/24/23 08:51 POC Glucose 153 H Electrocardiogram Date: 12/22/23 Atrial fibrillation with occasional ventricular-paced complexes T wave abnormality, consider anterolateral ischemia Abnormal ECG When compared with ECG of 21-DEC-2023 12:38, Vent. rate has increased BY 11 BPM Confirmed by Eaton, Broderick ([id number]) on 12/22/2023 4:39:18 PM Echocardiogram Date: 10/21/23 EF: 60-65 LV Function: normal Other Findings: + atrial enlargement (left) and + LVH Valvular Disease: + no significant valvular disease
--- NOTE | 2023-12-24 10:39 | GI REPORT ---
Patient Name: Ciara Baig Procedure Date: 12/24/2023 10:03 AM Date of : 1945 Admit Type: Inpatient Age: 78 Gender: Female Attending MD: Farhad Evans DO, Procedure: Upper GI endoscopy Providers: Farhad Evans DO Referring MD: Marquez Kolb MD, David Giraldo MD Indications: Acute post hemorrhagic anemia Medicines: Monitored Anesthesia Care Complications: No immediate complications. Estimated Blood Loss: Estimated blood loss: none. Procedure: Pre-Anesthesia Assessment: - Prior to the procedure, a History and Physical was performed, and patient medications and allergies were reviewed. The patient's tolerance of previous anesthesia was also reviewed. The risks and benefits of the procedure and the sedation options and risks were discussed with the patient. All questions were answered, and informed consent was obtained. Prior Anticoagulants: The patient has taken no anticoagulant or antiplatelet agents. ASA Grade Assessment: III - A patient with severe systemic disease. After reviewing the risks and benefits, the patient was deemed in satisfactory condition to undergo the procedure. After obtaining informed consent, the endoscope was passed under direct vision. Throughout the procedure, the patient's blood pressure, pulse, and oxygen saturations were monitored continuously. The Endoscope was introduced through the mouth, and advanced to the second part of duodenum. The upper GI endoscopy was accomplished without difficulty. The patient tolerated the procedure well. Findings: A small, ulcerating mass with minimal bleeding was found at the gastroesophageal junction, 40 cm from the incisors. The mass was non-obstructing. Diffuse moderate inflammation characterized by erythema was found in the entire examined stomach. The examined duodenum was normal. 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 - Gastritis. - Normal examined duodenum. - No specimens collected. Recommendation: - [facility]. - Resume previous diet. - Continue present medications. Farhad Evans DO 12/24/2023 10:38:35 AM This report has been signed electronically. Note Initiated On: 12/24/2023 10:03 AM Number of Addenda: 0 I attest to the content of the Intraoperative Record and orders documented therein, exceptions below {[id number]}
[2023-12-24] MEDS: PROPOFOL IV EMULSION 10 MG/ML 20 ML VIAL IV ONE (11:45)
[2023-12-24] MEDS: LIDOCAINE 2% 2 ML VIAL/AMP(20MG/ML) INFIL ONE (11:45)
--- NOTE | 2023-12-24 11:55 | Anesthesiology Progress Note ---
Date of Service December 24, 2023 Anesthesia Post Procedure Vital Signs Vital Signs: Temp Pulse Pulse Resp BP BP Pulse Ox 12/24/23 11:06 75 16 166/86 H 98 12/24/23 10:51 76 16 123/88 98 12/24/23 10:36 89 16 141/65 H 94 12/24/23 09:08 36.7 C 89 16 169/85 H 98 12/24/23 08:08 36.7 C 91 H 18 104/44 L 93 12/24/23 07:00 82 12/24/23 03:21 36.9 C 87 16 119/77 94 12/23/23 23:12 36.6 C 71 16 140/78 91 12/23/23 22:08 67 12/23/23 21:41 56 L 12/23/23 20:30 36.5 C 61 20 138/77 92 12/23/23 16:16 36.5 C 74 18 121/67 96 12/23/23 15:00 67 O2 Del Method O2 Flow Rate 12/24/23 11:06 Room Air 12/24/23 10:51 Room Air 12/24/23 10:36 Room Air 12/24/23 09:08 Room Air 12/24/23 08:08 Room Air 12/24/23 07:00 12/24/23 03:21 Room Air 12/23/23 23:12 Room Air 12/23/23 22:08 12/23/23 21:41 12/23/23 20:30 Nasal Cannula 2 12/23/23 16:16 Room Air 12/23/23 15:00 Pain Intensity Left Chest: Pain Intensity: 0 Transfer of Care Handoff Completed per policy Notes Mental Status: alert / awake / arousable Patient Amnestic to Procedure: Yes Nausea / Vomiting: adequately controlled Pain: adequately controlled Airway Patency, RR, SpO2: stable & adequate BP & HR: stable & adequate Hydration State: stable & adequate Anesthetic Complications: no major complications apparent and Pt Satisfied with anesthetic care
[2023-12-24] MEDS: MAGNESIUM SULFATE / D5W 1 GM/100 ML BAG IV ONE (12:28)
[2023-12-24] MEDS: ASPIRIN 81 MG ECTAB PO SCH (13:25)
[2023-12-25 06:30] LABS: Hematocrit (blood only) 31.6 % (37.0-47.0); Hemoglobin 9.2 g/dl (12.0-16.0); Mean Corpuscular Hemoglobin 23.9 pg (25.0-34.0); Mean Corpuscular Hgb Conc 29.1 g/dL (32.0-36.0); Mean Corpuscular Volume 82.1 fL (80.0-100.0); Platelet Count 345 K/uL (130-400); RDW Coefficient of Variation 16.4 % (11.5-14.5); RDW Standard Deviation 49.1 fL (36.4-46.3); Red Blood Count 3.85 M/uL (4.20-5.40); White Blood Count 7.12 K/ul (4.8-10.8)
[2023-12-25 06:33] LABS: Calcium 8.4 mg/dl (8.6-10.3); Potassium 3.9 mmol/L (3.5-5.1)
[2023-12-25 06:39] LABS: BUN Creatinine Ratio 11.3 (10-20); Creatinine Clr Calc Pharmacy 73.3 ml/min; Est GFR (African American) 93.9 ml/min
--- NOTE | 2023-12-25 09:52 | Discharge Summary ---
Date of Service December 25, 2023 Admission HPI Per Admitting Provider History obtained from patient and records. Medical history significant for chronic diastolic heart failure (65%%, TTE 2023), CAD status post stent, SSS sp PPM on Eliquis, mild TR, PSVT hypertension, hyperlipidemia, GE junction adenocarcinoma, DM2 on oral medications, PMR, parotid masses, pulmonary nodule, past tobacco abuse Last confinement October 2023 for dysphagia attributed to GE junction mass. Moderate to poorly differentiated adenocarcinoma on pathology. Chemoradiation contemplated by [facility] oncologist. 2 weeks ago, patient noted melanotic stools without abdominal pain. Patient also noted generalized fatigue and worsening shortness of breath on exertion. No chest pain, no headache symptoms. Denies OTC NSAID intake. No consultations done. Outpatient hemoglobin last 12/16 noted to be 7.1. Patient directed to ER for evaluation. Protonix and 1 unit PRBC administered at the ER. 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 Admission Exam Per Admitting Provider GENERAL: Comfortable, morbidly obese, pleasant, no respiratory distress SKIN: Pallor, warm HEENT: Bespectacled, pale palpebral conjunctivae, no ptosis, moist buccal mucosa NECK : Supple, short neck, no tenderness CHEST : CTA, no tenderness HEART : Irregular, no obvious murmurs ABDOMEN: Some distention, nontender EXTREMITIES : Chronic LE swelling, no LE tenderness, no other conspicuous deformities noted NEUROLOGIC : Coherent, no facial asymmetry, no other gross focality Principal Diagnosis GI bleed, anemia Afib Discharge Exam GENERAL: morbidly obese F in NAD HEENT: NC/AT, dry mucous membranes NECK : Supple HEART : Irregular, no obvious murmurs LUNGS: mild basilar crackles ABDOMEN: Some distention, soft, nontender EXTREMITIES : Chronic LE swelling, no LE tenderness, moves extremities NEUROLOGIC : awake, alert, no facial asymmetry, speech fluent, answers appropriately, moves extremities SKIN: warm, dry Discharge Data Allergies Allergy/AdvReac Type Severity Reaction Status Date / Time cetirizine AdvReac Intermediate Hallucinati Verified 12/24/23 09:07 ng hydroxyzine AdvReac Intermediate Hallucinati Verified 12/24/23 09:07 ng Consultations 05/20/24 19:32 ED Decision to Admit Stat 12/20/23 23:32 Consult Gastroenterology Routine 12/22/23 10:49 Consult Cardiology Routine Procedures Performed Operation Date: 12/24/23 16:30 Actual Procedures p Esophagogastroduodenoscopy - Farhad Berna Case, DO Ordered Studies 12/21/23 15:43 CT angio chest PE protocol Urgent FINDINGS: Lungs and pleura: Small to moderate bilateral pleural effusions are seen. Tree-in-bud nodularity in the right middle lobe and right upper lobe are seen. Interval stability of 3 mm pulmonary nodule in the right upper lobe (series 4 image 121) and 5 mm nodule in the left lower lobe (image 106). Heart and pericardium: Cardiomegaly is seen with biatrial enlargement. Vessels: No evidence of pulmonary embolism, although evaluation is limited by patient motion. Pulmonary trunk measures 34 mm in diameter. 2 atherosclerotic changes are seen in the coronary arteries. Mediastinum and iker: Unremarkable. Chest wall and lower neck: Small thyroid nodules are noted which do not require follow-up by ACR criteria. Abdomen: Patient is status post cholecystectomy. Right adrenal nodule is seen. Bones: Degenerative changes in the thoracic spine. IMPRESSION: 1. Exam is limited by patient motion however no evidence of pulmonary embolus is seen. 2. Khexb-ye-rcwatnlz bilateral pleural effusions with underlying atelectasis. Stable nodules as above. 3. Pulmonary hypertension. Hospital Course (1) Acute GI bleeding: Plan Pt is a 78yoF with PMhx significant for chronic diastolic heart failure (65%%, TTE 2023), CAD status post stent, SSS sp PPM on Eliquis, mild TR, PSVT hypertension, hyperlipidemia, GE junction adenocarcinoma, DM2 on oral medications, PMR, parotid masses, pulmonary nodule, past tobacco abuse admitted for suspected GI Bleed. UGIB Acute blood loss anemia In the setting GE junction adenocarcinoma and aspirin and Eliquis Rx, IV PPI s/p PRBC transfusion to maintain hemoglobin of at least 8, history CAD hold Eliquis and aspirin GI consulted and discussed with - underwent EGD 12/23 - Findings: A small, ulcerating mass with minimal bleeding was found at the gastroesophageal junction, 40 cm from the incisors. The mass was non-obstructing. Diffuse moderate inflammation characterized by erythema was found in the entire examined stomach. The examined duodenum was normal. 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 - Gastritis. - Normal examined duodenum. - No specimens collected. Recommendation: - Return patient to [facility] for [facility] care. - Resume previous diet. - Continue present medications. Per GI - recommend to hold Eliquis and only cont. ASA - this was also discussed with cardiology - in agreement Current Hgb 9.2 - recommend to re-check CBC within 1 week Chest Pain On 12/20 EKG with a fib, trop wnl Chest xray chest CTA repeated -1. Exam is limited by patient motion however no evidence of pulmonary embolus is seen. 2. Luaqw-fo-witxpplh bilateral pleural effusions with underlying atelectasis. Stable nodules as above. 3. Pulmonary hypertension. Pain control Continue to monitor on telemetry Continued to have chest discomfort on 12/21 however feels improved - ECG - Afib Cardiology following as above Decreased midodrine to 2.5 tid as BP Chest pain has resolved hx CAD status post stent SSS status post PPM Atrial Fibrillation on Eliquis and aspirin , currently on hold - restarted ASA, cont. to hold Eliquis on discharge Cardiology consulted - as above chronic diastolic heart failure (65%%, TTE 2023) Lasix with transfusions Home torsemide on hold in setting of above Continue to monitor hypertension slightly elevated hyperlipidemia on statin Rx DM2 on oral medications well-controlled as of recent hemoglobin A1c of 6.09 Dec 2023 Basal insulin adjusted for n.p.o. status, ISS BG goal [id number] parotid masses GMG ENT following Total Time Total Time Spent Total Time Spent (In Minutes): 40 Discharge Plan Discharge Items Patient Disposition: Home - Self-Care Reason For Visit: ANEMIA; GI BLEED Discharge Diagnosis: GI bleed, anemia Afib Activity: Per Instructions section Non-emergency contact: Primary Care Provider and Oncologist Call non-emergency contact if: you have any medication questions and your symptoms worsen Follow-up/Referrals: Jason West MD [Primary Care Provider] - Diet: Carb Consistent or DM2 Diet Texture: Dental soft (bite-sized) Addtl Attending Provider Instructions: Follow up with your primary care doctor, oncologist and educational interpreter. You will be contacted about your appointments. Stop taking Eliquis. Continue taking aspirin, also continue taking pantoprazole and magnesium supplement. Continue taking metoprolol as prescribed. Decrease midodrine to 2.5 three times a day. Pending Studies at Discharge: Yes Studies:: Stool H. pylori results pending Stand-Alone Forms: [facility], Smoking Cessation Medications and DC Order Prescriptions: New midodrine 2.5 mg Tablet 2.5 mg PO TID Qty: 60 0RF Continued calcium carbonate-vitamin D3 [Calcium 600 with Vitamin D3] 600 mg-12.5 mcg (500 unit) capsule 1 cap PO BID metoprolol succinate 100 mg tablet extended release 24 hr 100 mg PO BID multivitamin Tablet 1 tab PO QDL atorvastatin 40 mg Tablet 40 mg PO QAM Hold Instructions: Until further recommendations from your primary care physician nitroglycerin [Nitrostat] 0.4 mg Tablet, Sublingual 0.4 mg Sublingual DIRECTED PRN (Reason: Chest Pain) oxybutynin chloride 5 mg Tablet 5 mg PO BID Rx Instructions: take with lunch and at bedtime insulin glargine [Lantus Solostar U-100 Insulin] 100 unit/mL (3 mL) Insulin Pen 20 unit SUBCUT BIDM glipizide 5 mg tablet 5 mg PO BIDM aspirin 81 mg Tablet,Delayed Release (Dr/Ec) 81 mg PO QAM acetaminophen [Tylenol Extra Strength] 500 mg Tablet 1,000 mg PO TID PRN (Reason: PAIN/FEVER) cinnamon bark [Cinnamon] 500 mg Capsule 1,000 mg PO QDD Systane (PF) 0.4-0.3 % Dropperette 1 drp OPB DAILY PRN (Reason: Dry Eyes) magnesium oxide 400 mg magnesium Tablet 400 mg PO QDL Advanced Probiotic 625 mg (10 billion cell) Capsule 1 cap PO DAILY Qty: 30 0RF pantoprazole 40 mg Tablet,Delayed Release (Dr/Ec) 40 mg PO BID Qty: 60 0RF torsemide 10 mg tablet 10 mg PO DAILY Qty: 30 0RF digoxin 125 mcg (0.125 mg) tablet 0.125 mg PO UD Qty: 30 0RF Rx Instructions: TAKES MON, WED, & FRI AT HS. (3 times a week) ketoconazole 2 % shampoo 1 applic TOPICAL DIRECTED cetirizine 5 mg Tablet 5 mg PO DAILY PRN (Reason: .ALLERGIES) hydroxyzine HCl 10 mg Tablet 0 mg PO DIRECTED PRN (Reason: ..) Discontinued Eliquis 5 mg Tablet 5 mg PO AMHS midodrine 5 mg tablet 5 mg PO TID Qty: 90 0RF Rx Instructions: do not give last dose of day after 6PM or within 4 hrs of bedtime Discharge Orders: Discharge Order (Routine); Ordered 12/25/23 Ordered By: David Giraldo Admission Data Admit Date/Time: 12/20/23 22:10 Attending Provider: David Giraldo Admit Provider: Jamison Conner Primary Care Provider: Jason West Other Providers: Jamison Conner; Farhad Evans
== END 2023-12-25 12:10 | disposition home or self-care (01) | DRG 375 ==
LOC: ED 17:08 → 2N 22:10 → SUATTDRO 22:10 → 2N 23:03

== ENCOUNTER 2024-02-22 10:13 | Inpatient (IN) ==
[2024-02-22] MEDS: dilTIAZem HCl 5 MG/ML 5 ML VIAL IV ONE (10:39)
[2024-02-22] MEDS: SODIUM CHLORIDE 0.9% 1,000 ML IV ONE (10:45)
[2024-02-22] MEDS: dilTIAZem HCl 5 MG/ML 5 ML VIAL IV STA (10:45)
--- NOTE | 2024-02-22 10:48 | Emergency Department Note ---
Impression & Plan Atrial fibrillation with rapid ventricular response, Pulmonary emboli, Acute dyspnea, Hypomagnesemia, Elevated troponin ED Provider Note HISTORY OF PRESENT ILLNESS: Patient is a 78 year old female presenting with shortness of breath and tachycardia. Patient reports she has had progressively worsening shortness of breath for the past week. States she went for radiation therapy today and saw her provider and then was referred to the ER due to tachycardia. Patient reports that she has not had any chest pain. No DVT or PE history. She denies any history of cardiac stents. Denies any fevers. Reports she has had a cough productive of white mucous. Denies any recent sick contact exposures. Has a history of Afib and is on Eliquis. She reports she was feeling weaker than normal today. Denies any lightheadedness or dizziness. Her last chemo treatment was 1 week ago. ROS: as above PHYSICAL EXAM: Constitutional: Patient appears in no acute distress. HENT: Head: Normocephalic and atraumatic. Eyes: EOMI, PERRL Mouth/Throat: Mucous membranes moist. Neck: Trachea midline. Neck supple. Cardiovascular: Tachycardic with irregularly irregular rhythm. No murmurs, rubs or gallops. Intact distal pulses. Pulmonary/Chest: No respiratory distress. Breath sounds clear and equal bilaterally. No wheezes or rales. No chest wall tenderness to palpation. Abdominal: Abdomen soft, no tenderness, rebound or guarding. Musculoskeletal: No edema, tenderness or deformity noted. Skin: Warm and dry. No rash, erythema, pallor or cyanosis Psychiatric: Appropriate mood and affect for situation. Neurological: Alert and keenly responsive. CN II-XII grossly intact, moving all extremities equally and fully. MDM: - Vitals signs showed hypertension and tachycardia. - History obtained via patient. History as above. - Chronic conditions affecting care: hx of GI bleed; permanent Afib; tachy-barbra syndrome; CHF; HTN; HLD; DM-2; esophageal cancer - Differential diagnoses include, but are not limited to: Congestive heart failure; acute coronary syndrome; COPD/asthma exacerbation; pulmonary edema; pulmonary embolism; pneumonia; pneumothorax; viral syndrome - Order placed for continuous cardiac monitoring. At this time, monitor showed rate of 121 bpm with irregular rhythm, per my interpretation. - External medical records reviewed. [facility] oncology note from 12/29/2023 was reviewed. 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 - EKG interpreted by myself showed atrial fibrillation. Rate tachycardic at 148 bpm. QT 294. No acute ischemic changes. - Laboratory workup interpreted by myself showed leukopenia (WBC 1.54); anemia (Hgb 9.7); stable electrolytes other than hypomagnesemia (Mg 1.5); elevated total bilirubin (1.4); normal liver function; elevated troponin (17.8); elevated BNP (103) - Patient's HR in the 150s on arrival. Given 1L NS and 10 mg IV cardizem. HR did come down to the 50s 60s bpm. However, heart rate did become elevated again into the 130s. Patient was started on Cardizem drip. - CXR negative for pneumonia, per my interpretation - Viral respiratory panel negative - VBG normal - CT head wo contrast negative for acute pathology - Given patient's shortness of breath and tachycardia, CT PE was obtained. CT PE showed bilateral segmental and subsegmental PEs with probable associated right heart strain. - Given patient's history of esophageal cancer, heparin drip without a bolus was ordered for her pulmonary emboli. - Discussion was had with residential case manager about patient's case and need for admission - Hospitalist consulted for admission - [facility]. I have personally spent 63 minutes of critical care time in the direct management of this patient. This includes bedside care, interpretation of diagnostic studies, and testing, discussion with consultants, patient, and family members, and other required patient management activities. This 63 minutes is in excess of all separately billable procedures. ASSESSMENT AND PLAN: Diagnosis: Afib with RVR; bilateral pulmonary emboli; hypomagnesemia; acute dyspnea; elevated troponin Plan: admit Past Med/Surg History Problem List (Updated 01/25/24 @ 00:06 by Background Daemon) Tachy-barbra syndrome admitted for elective pacemaker. Underwent procedure no complications; monitored overnight and discharged home. 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) Mass of esophagus Syncope and collapse Pacemaker Dysphagia Anemia (Acute) Shortness of breath (Acute) Chest pain (Acute) Midsternal chest pain (Acute) Acid reflux Atypical chest pain Chest pain DVT prophylaxis Orthostatic hypotension SOB (shortness of breath) (Acute) Hypoxia (Acute) Fall (Acute) Atrial fibrillation with RVR (Acute) Chronic diastolic HF (heart failure) (Chronic) Paroxysmal A-fib (Chronic) on Eliquis Elevated lactic acid level (Acute) Osteoarthritis (Chronic) DM type 2 (diabetes mellitus, type 2) (Chronic) Dyslipidemia (Chronic) Hypertension (Chronic) Coronary artery disease (Chronic) "anterior [place] 11/10/17, LVEF 20-25%, PCI LAD with ISABEL" Hx of supraventricular tachycardia (Chronic) H/O ovarian cystectomy (Chronic) History of appendectomy (Chronic) History of right knee joint replacement (Chronic) History of tonsillectomy (Chronic) History of cholecystectomy (Chronic) Status post coronary artery stent placement (Chronic) "PCI LAD with ISABEL 11/10/17" Medical History (Updated 02/22/24 @ 13:06 by Shahana De PA-C) Polymyalgia rheumatica Overactive bladder Postural dizziness with presyncope Diabetic polyneuropathy Orthostatic hypotension Atrial fibrillation with rapid ventricular response Chest pain Chest pain Acute on chronic diastolic (congestive) heart failure Ischemic cardiomyopathy Surgical History (Updated 01/25/24 @ 00:06 by Malaika Houston) History of ankle surgery Bilateral due to fracture History of cataract surgery Bilateral H/O shoulder surgery Right rotator cuff surgery History of carpal tunnel surgery Bilateral History of right hip replacement H/O esophagogastroduodenoscopy Family History (Updated 12/29/23 @ 10:31 by Lisa Fischer RN) Mother , 83yo Pancreatic cancer S/P CABG x 4 Diabetes Stroke Hypertension Father , 79yo Pancreatic cancer Myocardial infarction Hypertension Diabetes Brother , in his 50s Congenital heart defect Brother Myocardial infarction Stroke Brother Heart disease Brother No problems noted. Brother Bladder cancer Sister Thyroid cancer Sister No problems noted. Sister No problems noted. Social History (Updated 12/29/23 @ 10:33 by Lisa Fischer, LONA) Smoking Status: Former smoker Tobacco Type: Cigarettes Cigarettes Per Day: 1.5 PPD x 35yrs; Second Hand Exposure: No; Do You Dip or Chew Tobacco: No; Hx Alcohol Use: No Hx Substance Use: No Preferred Language: Bruneian Communication Ability: Effective Visual Impairment: Limited Hearing Ability: Normal Creative Resource Manager Required: No Beliefs That Will Affect Care: None marital status: / Current Living Situation: Alone Current Living Situation Comment: States she will be looking to move to assisted living current occupational status: retired current occupation: [employer] in [employer] How many Children do You have: 0 Feels Safe at Home: Yes Diet: other caffeine: No during the past year weight has: decreased > 10 lbs Assistive Devices: Bedside Commode, Cane and Walker Allergies Allergies Allergy/AdvReac Type Severity Reaction Status Date / Time cetirizine AdvReac Intermediate Hallucinati Verified 02/22/24 09:26 ng hydroxyzine AdvReac Intermediate Hallucinati Verified 02/22/24 09:26 ng Home Meds Home Medications Medication Instructions Recorded Confirmed atorvastatin 40 mg tablet 40 mg PO QAM 06/18/18 02/22/24 nitroglycerin 0.4 mg sublingual 0.4 mg sublingual DIRECTED PRN 06/18/18 02/22/24 tablet (Nitrostat) Chest Pain oxybutynin chloride 5 mg tablet 5 mg PO BID 06/18/18 02/22/24 acetaminophen 500 mg tablet 1,000 mg PO TID PRN PAIN/FEVER 05/18/22 02/22/24 (Tylenol Extra Strength) aspirin 81 mg tablet,delayed 81 mg PO QAM 05/18/22 02/22/24 release cinnamon bark 500 mg capsule 1,000 mg PO QDD 05/18/22 02/22/24 (Cinnamon) magnesium oxide 400 mg PO QDL 05/18/22 02/22/24 peg 400-propylene glycol (PF) 0.4 1 drp OPB DAILY PRN Dry Eyes 05/18/22 02/22/24 %-0.3 % eye drops in a dropperette (Systane (PF)) calcium carbonate 600 mg-vitamin 1 cap PO BID 12/16/23 02/22/24 D3 12.5 mcg (500 unit) capsule (Calcium 600 with Vitamin D3) metoprolol succinate 100 mg 100 mg PO BID 12/16/23 02/22/24 tablet,extended release 24 hr ketoconazole 2 % shampoo 1 applic topical DIRECTED 12/20/23 02/22/24 loratadine 10 mg tablet (Claritin) 10 mg PO DAILY 12/29/23 02/22/24 insulin glargine 100 unit/mL (3 15 unit subcut BIDM 02/01/24 02/22/24 mL) subcutaneous pen (Lantus Solostar U-100 Insulin) Previous Rx's Medication Instructions Recorded digoxin 125 mcg (0.125 mg) tablet 0.125 mg PO UD #30 tabs 10/27/23 torsemide 10 mg tablet 10 mg PO DAILY #30 tabs 10/27/23 midodrine 2.5 mg tablet 2.5 mg PO TID #60 tabs 12/25/23 pantoprazole 40 mg tablet,delayed 40 mg PO BID #60 tabs 12/25/23 release Results & Data (ED) Vital Signs Vital Signs - 24 hr 02/22/24 10:14 02/22/24 10:42 02/22/24 10:43 Temperature 36.5 C Temperature Source Temporal Artery Scan Pulse Rate 116 H 102 H Pulse Rate [Apical] 98 H Pulse Rhythm Irregular Pulse Rhythm [Apical] Irregular Respiratory Rate 26 H 24 24 Respiratory Effort / Characteristics Respiratory Depth Blood Pressure 155/86 H Blood Pressure [Left Arm] 157/117 H Blood Pressure Mean 109 Blood Pressure Mean [Left Arm] 130 Blood Pressure Position [Left Arm] Pulse Oximetry 98 95 94 Oxygen Delivery Method Room Air Room Air Sepsis Recent Fever Within 48 Hours No Sepsis New/Unexplained Change in Mental Status N/A Sepsis Action Taken by Nursing No Action Required 02/22/24 10:54 02/22/24 12:13 02/22/24 12:44 Temperature Temperature Source Pulse Rate 58 L Pulse Rate [Apical] 120 H 120 H Pulse Rhythm Pulse Rhythm [Apical] Respiratory Rate 20 20 Respiratory Effort / Characteristics Non-Labored Non-Labored Spontaneous Respiratory Depth Normal Blood Pressure Blood Pressure [Left Arm] 155/102 H 159/118 H Blood Pressure Mean Blood Pressure Mean [Left Arm] 119 131 Blood Pressure Position [Left Arm] Sitting Pulse Oximetry 96 Oxygen Delivery Method Room Air Room Air Sepsis Recent Fever Within 48 Hours Sepsis New/Unexplained Change in Mental Status Sepsis Action Taken by Nursing Laboratory Data 02/22/24 10:37 02/22/24 10:37 Lab Results 02/22/24 02/22/24 02/22/24 Range/Units 10:37 10:56 Unknown WBC 1.54 L (4.8-10.8) K/ul RBC 4.11 L (4.20-5.40) M/uL Hgb 9.7 L (12.0-16.0) g/dl Hct 32.1 L (37.0-47.0) % MCV 78.1 L (80.0-100.0) fL MCH 23.6 L (25.0-34.0) pg MCHC 30.2 L (32.0-36.0) g/dL RDW Std Deviation 52.4 H (36.4-46.3) fL RDW Coeff of Y[place] 18.9 H (11.5-14.5) % Plt Count 147 (130-400) K/uL MPV 10.5 (9.4-12.4) fL Immature Gran % (Auto) 1.3 % Neut % (Auto) 66.3 % Lymph % (Auto) 8.4 % Stanley % (Auto) 22.1 % Eos % (Auto) 1.3 % Baso % (Auto) 0.6 % Neut # (Auto) 1.02 L (1.40-6.50) K/uL Lymph # (Auto) 0.13 L (1.20-3.40) K/uL Stanley # (Auto) 0.34 (0.11-0.59) K/uL Eos # (Auto) 0.02 (0.00-0.50) K/uL Baso # (Auto) 0.01 (0.00-0.20) K/uL Immature Gran # (Auto) 0.02 (0.01-0.20) K/uL Absolute Nucleated RBC 0.04 (0.00-0.12) K/uL Nucleated RBC % (auto) 2.6 % Ovalocytes 1+ PT 12.3 H (9.0-12.0) Seconds INR 1.1 (0.9-1.1) VBG pH 7.36 (7.36-7.41) VBG pCO2 49 (38-50) mmHg VBG pO2 31 mmHg VBG HCO3 28 mmol/L VBG O2 Saturation < 60.0 % VBG Base Excess 1.7 mEq/L Sodium 142 (136-145) mmol/L Potassium 4.5 (3.5-5.1) mmol/L Chloride 104 (98-107) mmol/L Carbon Dioxide 29 (21-32) mmol/L Anion Gap 9 (3-11) BUN 22 (6-23) mg/dl Creatinine 0.82 (0.6-1.2) mg/dl Est Cr Clr Drug Dosing 59.2 ml/min Est GFR ( Amer) 78.9 ml/min Est GFR (Non-Af Amer) 68.1 ml/min BUN/Creatinine Ratio 26.8 H (10-20) Glucose 219 H (70-99(Fasting)) mg/dl Calcium 9.4 (8.6-10.3) mg/dl Magnesium 1.5 L (1.7-2.4) mg/dl Total Bilirubin 1.4 H (0.2-1.0) mg/dl AST 21 (13-39) U/L ALT 18 (7-52) U/L Alkaline Phosphatase 74 (34-104) U/L Troponin I High Sens 17.8 H (0-14) pg/ml B-Natriuretic Peptide 103 H (0-100) pg/ml Total Protein 7.4 (6.0-8.3) gm/dl Albumin 3.8 (3.4-5.0) gm/dl Globulin 3.6 (2.5-4.0) gm/dl Albumin/Globulin Ratio 1.1 (0.9-2) Adenovirus (PCR) Not Detected (NotDetected) B. pertussis DNA (PCR) Not Detected (NotDetected) B.parapertussis DNA PCR Not Detected (NotDetected) C. pneumoniae DNA (PCR) Not Detected (NotDetected) Coronavirus OC43 (PCR) Not Detected (NotDetected) Coronavirus HKU1 (PCR) Not Detected (NotDetected) Coronavirus 229E (PCR) Not Detected (NotDetected) SARS-CoV-2 (PCR) Not Detected (NotDetected) Coronavirus NL63 (PCR) Not Detected (NotDetected) Human Metapneumovir PCR Not Detected (NotDetected) Influenza Type A (PCR) Not Detected (NotDetected) Influenza Type B (PCR) Not Detected (NotDetected) M. pneumoniae (PCR) Not Detected (NotDetected) Parainfluenza 1 (PCR) Not Detected (NotDetected) Parainfluenza 2 (PCR) Not Detected (NotDetected) Parainfluenza 3 (PCR) Not Detected (NotDetected) Parainfluenza 4 (PCR) Not Detected (NotDetected) RSV (PCR) Not Detected (NotDetected) Entero/Rhino (PCR) Not Detected (NotDetected) Administered Medications Diltiazem HCl 125 mg/ Dextrose 125 mls @ 5 mls/hr IV .Q24H KAYLA; Protocol Stop: 03/23/24 10:44 Last Admin: 02/22/24 13:27 Dose: 5 mg/hr, 5 mls/hr Documented By: CC Co-signed By: LIN Discontinued Medications Diltiazem HCl (Diltiazem Hcl 5 Mg/Ml 5 Ml Vial) Confirm Administered Dose 25 mg IV .STK-MED ONE Stop: 02/22/24 10:37 Last Increment: 02/22/24 10:39 Dose: 10 mg Documented By: KV Co-signed By: LIN Diltiazem HCl (Diltiazem Hcl 5 Mg/Ml 5 Ml Vial) 10 mg IV NOW STA Stop: 02/22/24 10:44 Last Admin: 02/22/24 10:45 Dose: Not Given Documented By: KV Sodium Chloride (Nss) 1,000 mls @ 999 mls/hr IV .Q1H1M ONE Stop: 02/22/24 11:43 Last Admin: 02/22/24 10:45 Dose: 999 mls/hr Documented By: PRAFUL Magnesium Sulfate/Dextrose (Magnesium Sulfate / D5w) 1 gm in 100 mls @ 100 mls/hr IV NOW STA Stop: 02/22/24 13:06 Last Admin: 02/22/24 12:18 Dose: 100 mls/hr Documented By: CALEB Ioversol (Optiray 320 125ml) 112 ml IV ONCE ONE Stop: 02/22/24 11:33 Last Admin: 02/22/24 11:32 Dose: 112 ml Documented By: AMENA Imaging Data Radiologist's Impression: Chest CTA 02/22/24 10:23 CT angio chest PE protocol CT DOSE: 1397.22 mGy.cm HISTORY: 78 years-old Female with PE; CA hx, tachycardia, SOB. Acute shortness of breath with tachycardia TECHNIQUE: Multiple CTA images of the chest were obtained after the intravenous administration of 112 ml Optiray. Coronal and sagittal MIPS were obtained from the axial data set and were submitted for review. All measurements were obtained according to NASCET criteria. A dose lowering technique was utilized adhering to the principles of ALARA. COMPARISON: 12/21/2023. FINDINGS: CTA: Cardiomegaly with left subclavian pacer. No pericardial effusion. Extensive coronary artery calcifications. Atherosclerosis of aorta without aneurysm or dissection. Descending thoracic aortic tortuosity. Bilateral segmental and subsegmental pulmonary emboli are most pronounced in the left upper and right lower lobes. Mild straightening of the intraventricular septum. CT CHEST: Calcified thyroid nodules. No lymphadenopathy. No pneumothorax, pleural effusion, or overt pulmonary edema. 5 mm solid nodule noted within the superior segment right lower lobe, unchanged. Unchanged clustered solid nodules within the right upper lobe measuring up to 1.2 cm on image 158. Additional tree-in-bud nodules within the right middle lobe and lingula with areas of mild bronchiectasis. Solid nodules in the left lower lobe 5 mm, unchanged. Central airways are patent. Exophytic 2.1 cm peripherally calcified lesion of the right kidney. Cholecystectomy. Unremarkable soft tissues. No acute fracture or destructive bone lesion. IMPRESSION: 1. Cardiomegaly with bilateral segmental and subsegmental pulmonary emboli and probable associated right heart strain. 2. No pleural effusion or pulmonary infarct. 3. Mild lingular and right middle lobe bronchiectasis with stable subcentimeter nodules including tree-in-bud nodules which are likely infectious or inflammatory. A chronic bronchiolitis such as nontuberculous mycobacterium considered. 4. No lymphadenopathy. ACT 112: Negative or not required by law. The above report was generated using voice recognition software. It may contain grammatical, syntax or spelling errors. Electronically signed by: Michele Maddox M.D. 02/22/2024 12:37 PM Chest X-Ray 02/22/24 10:23 XR chest 1V portable CLINICAL HISTORY: Dyspnea. COMPARISON STUDY: Chest radiograph December 23, 2023. Chest CT December 21, 2023. PET/CT November 23, 2023. FINDINGS: Left subclavian pacer is in place. Elevation of the right hemidiaphragm is increased. Cardiomediastinal silhouette is stable. There is no evidence for pulmonary edema. There is a possible small right pleural effusion. No pneumothorax. IMPRESSION: 1. Increase in moderate elevation of the right hemidiaphragm. Suspected small right pleural effusion. 2. No consolidation to suggest pneumonia. No evidence for pulmonary edema. ACT 112: Negative or not required by law. Electronically signed by: Mando Garzon M.D. 02/22/2024 11:[address] 02/22/24 10:[address] DOSE: HISTORY: CA hx; gait instability TECHNIQUE: Multiaxial CT images of the head were performed without the use of intravenous contrast. Automated exposure control was utilized for this study. A dose lowering technique was utilized adhering to the principles of ALARA. Comparison: Head CT 10/21/2023. Findings: The paranasal sinuses and mastoid air cells are clear. The calvarium and skull base are intact. There is no mass, hematoma, midline shift, acute infarct. White matter hypodensity is nonspecific but suggestive of microvascular ischemic change. The ventricles and sulci demonstrate mild age-related involutional changes. Impression: No acute intracranial abnormality. ACT 112: Negative or not required by law. Electronically signed by: Zeyad Escalera M.D. 02/22/2024 12:46 PM Discharge Plan Visit Data Chief Complaint: Referred by Doctor Stated Complaint: elevated hr ED Provider: Katelyn Giang Discharge Problem: Atrial fibrillation with rapid ventricular response, Pulmonary emboli, Acute dyspnea, Hypomagnesemia, Elevated troponin Forms Stand Alone Forms: [employer] Prescriptions Prescriptions: No Action loratadine [Claritin] 10 mg tablet 10 mg PO DAILY calcium carbonate-vitamin D3 [Calcium 600 with Vitamin D3] 600 mg-12.5 mcg (500 unit) capsule 1 cap PO BID metoprolol succinate 100 mg tablet extended release 24 hr 100 mg PO BID atorvastatin 40 mg Tablet 40 mg PO QAM Hold Instructions: Until further recommendations from your primary care physician nitroglycerin [Nitrostat] 0.4 mg Tablet, Sublingual 0.4 mg Sublingual DIRECTED PRN (Reason: Chest Pain) oxybutynin chloride 5 mg Tablet 5 mg PO BID Rx Instructions: take with lunch and at bedtime insulin glargine [Lantus Solostar U-100 Insulin] 100 unit/mL (3 mL) insulin pen 15 unit SUBCUT BIDM aspirin 81 mg Tablet,Delayed Release (Dr/Ec) 81 mg PO QAM acetaminophen [Tylenol Extra Strength] 500 mg Tablet 1,000 mg PO TID PRN (Reason: PAIN/FEVER) cinnamon bark [Cinnamon] 500 mg Capsule 1,000 mg PO QDD Systane (PF) 0.4-0.3 % Dropperette 1 drp OPB DAILY PRN (Reason: Dry Eyes) magnesium oxide 400 mg magnesium Tablet 400 mg PO QDL torsemide 10 mg tablet 10 mg PO DAILY Qty: 30 0RF digoxin 125 mcg (0.125 mg) tablet 0.125 mg PO UD Qty: 30 0RF Rx Instructions: TAKES MON, WED, & FRI AT HS. (3 times a week) ketoconazole 2 % shampoo 1 applic TOPICAL DIRECTED midodrine 2.5 mg Tablet 2.5 mg PO TID Qty: 60 0RF pantoprazole 40 mg Tablet,Delayed Release (Dr/Ec) 40 mg PO BID Qty: 60 0RF Referrals Referrals: Jason West MD [Primary Care Provider] -
[2024-02-22 11:03] LABS: Base Excess VBG 1.7 mEq/L; HCO3 VBG 28 mmol/L; Oxygen Saturation VBG < 60.0 %; PCO2 VBG 49 mmHg (38-50); PO2 VBG 31 mmHg; pH VBG 7.36 (7.36-7.41)
[2024-02-22 11:23] LABS: Albumin Globulin Ratio 1.1 (0.9-2); Albumin Level 3.8 gm/dl (3.4-5.0); BUN Creatinine Ratio 26.8 (10-20); Bilirubin,Total 1.4 mg/dl (0.2-1.0); Calcium 9.4 mg/dl (8.6-10.3); Creatinine Clr Calc Pharmacy 59.2 ml/min; Est GFR (African American) 78.9 ml/min; Est GFR (Non-African American) 68.1 ml/min; Globulin 3.6 gm/dl (2.5-4.0); Magnesium 1.5 mg/dl (1.7-2.4); Potassium 4.5 mmol/L (3.5-5.1); Total Protein 7.4 gm/dl (6.0-8.3)
[2024-02-22 11:24] LABS: Basophils # (auto) 0.01 K/uL (0.00-0.20); Basophils % (auto) 0.6 %; Eosinophils # (auto) 0.02 K/uL (0.00-0.50); Eosinophils % (auto) 1.3 %; Hematocrit (blood only) 32.1 % (37.0-47.0); Hemoglobin 9.7 g/dl (12.0-16.0); Immature Granulocytes # (auto) 0.02 K/uL (0.01-0.20); Immature Granulocytes % (auto) 1.3 %; Lymphocytes # (auto) 0.13 K/uL (1.20-3.40); Lymphocytes % (auto) 8.4 %; Mean Corpuscular Hemoglobin 23.6 pg (25.0-34.0); Mean Corpuscular Hgb Conc 30.2 g/dL (32.0-36.0); Mean Corpuscular Volume 78.1 fL (80.0-100.0); Mean Platelet Volume 10.5 fL (9.4-12.4); Monocytes # (auto) 0.34 K/uL (0.11-0.59); Monocytes % (auto) 22.1 %; Neutrophils # (auto) 1.02 K/uL (1.40-6.50); Neutrophils % (auto) 66.3 %; Nucleated RBC # (auto) 0.04 K/uL (0.00-0.12); Nucleated RBC % (auto) 2.6 %; Platelet Count 147 K/uL (130-400); RDW Coefficient of Variation 18.9 % (11.5-14.5); RDW Standard Deviation 52.4 fL (36.4-46.3); Red Blood Count 4.11 M/uL (4.20-5.40); White Blood Count 1.54 K/ul (4.8-10.8)
--- NOTE | 2024-02-22 11:26 | XRay Report ---
XR chest 1V portable CLINICAL HISTORY: Dyspnea. COMPARISON STUDY: Chest radiograph December 23, 2023. Chest CT December 21, 2023. PET/CT November 23, 2023. FINDINGS: Left subclavian pacer is in place. Elevation of the right hemidiaphragm is increased. Cardi omediastinal silhouette is stable. There is no evidence for pulmonary edema. There is a possible smal l right pleural effusion. No pneumothorax. IMPRESSION: 1. Increase in moderate elevation of the right hemidiaphragm. Suspected small right pleural effusion. 2. No consolidation to suggest pneumonia. No evidence for pulmonary edema. ACT 112: Negative or not required by law. Electronically signed by: Mando Garzon M.D. 02/22/2024 11:25 AM
[2024-02-22 11:27] LABS: Troponin I High Sensitivity 17.8 pg/ml (0-14)
[2024-02-22] MEDS: OPTIRAY 320 125ml IV ONE (11:32)
[2024-02-22 11:38] LABS: INR 1.1 (0.9-1.1); Prothrombin Time 12.3 Seconds (9.0-12.0)
--- NOTE | 2024-02-22 11:58 | Electrocardiogram Report ---
Test Reason : Blood Pressure : / mmHG Vent. Rate : 148 BPM Atrial Rate : 000 BPM P-R Int : 000 ms QRS Dur : 072 ms QT Int : 294 ms P-R-T Axes : 000 -37 -86 degrees QTc Int : 461 ms Atrial fibrillation with rapid ventricular response with premature ventricular or aberrantly conducte d complexes Left axis deviation Diffuse Nonspecific T wave abnormality Abnormal ECG When compared with ECG of 22-DEC-2023 08:21, Electronic ventricular pacemaker no longer apparent Vent. rate has increased BY 73 BPM Confirmed by Neftaly Prather ([id number]) on 02/22/2024 11:58:07 AM Referred By: Confirmed By:Neftaly Prather
[2024-02-22 12:03] LABS: Ovalocytes 1+
[2024-02-22 12:08] LABS: Adenovirus PCR Not Detected (NotDetected); Bordetella parapertussis PCR Not Detected (NotDetected); Bordetella pertussis PCR Not Detected (NotDetected); Chlamydia pneumoniae PCR Not Detected (NotDetected); Coronavirus 229E PCR Not Detected (NotDetected); Coronavirus CoV-2 (COVID19)PCR Not Detected (NotDetected); Coronavirus HKU1 PCR Not Detected (NotDetected); Coronavirus NL63 PCR Not Detected (NotDetected); Coronavirus OC43PCR Not Detected (NotDetected); Human Metapneumovirus PCR Not Detected (NotDetected); Influenza A PCR Not Detected (NotDetected); Influenza B PCR Not Detected (NotDetected); Mycoplasma pneumoniae PCR Not Detected (NotDetected); Parainfluenza Virus 1 PCR Not Detected (NotDetected); Parainfluenza Virus 2 PCR Not Detected (NotDetected); Parainfluenza Virus 3 PCR Not Detected (NotDetected); Parainfluenza Virus 4 PCR Not Detected (NotDetected); Respiratory Syncytial VirusPCR Not Detected (NotDetected); Rhinovirus/Enterovirus PCR Not Detected (NotDetected)
[2024-02-22] MEDS: MAGNESIUM SULFATE / D5W 1 GM/100 ML BAG IV STA (12:18)
--- NOTE | 2024-02-22 12:39 | CT Scan Report ---
CT angio chest PE protocol CT DOSE: 1397.22 mGy.cm HISTORY: 78 years-old Female with PE; CA hx, tachycardia, SOB. Acute shortness of breath with tachy cardia TECHNIQUE: Multiple CTA images of the chest were obtained after the intravenous administration of 112 ml Optiray. Coronal and sagittal MIPS were obtained from the axial data set and were submitted for review. All measurements were obtained according to NASCET criteria. A dose lowering technique was u tilized adhering to the principles of ALARA. COMPARISON: 12/21/2023. FINDINGS: CTA: Cardiomegaly with left subclavian pacer. No pericardial effusion. Extensive coronary artery calcifica tions. Atherosclerosis of aorta without aneurysm or dissection. Descending thoracic aortic tortuosity . Bilateral segmental and subsegmental pulmonary emboli are most pronounced in the left upper and rig ht lower lobes. Mild straightening of the intraventricular septum. CT CHEST: Calcified thyroid nodules. No lymphadenopathy. No pneumothorax, pleural effusion, or overt pulmonary edema. 5 mm solid nodule noted within the superior segment right lower lobe, unchanged. Unchanged clu stered solid nodules within the right upper lobe measuring up to 1.2 cm on image 158. Additional tree -in-bud nodules within the right middle lobe and lingula with areas of mild bronchiectasis. Solid nod ules in the left lower lobe 5 mm, unchanged. Central airways are patent. Exophytic 2.1 cm peripherally calcified lesion of the right kidney. Cholecystectomy. Unremarkable sof t tissues. No acute fracture or destructive bone lesion. IMPRESSION: 1. Cardiomegaly with bilateral segmental and subsegmental pulmonary emboli and probable associated ri ght heart strain. 2. No pleural effusion or pulmonary infarct. 3. Mild lingular and right middle lobe bronchiectasis with stable subcentimeter nodules including debbie e-in-bud nodules which are likely infectious or inflammatory. A chronic bronchiolitis such as nontube rculous mycobacterium considered. 4. No lymphadenopathy. ACT 112: Negative or not required by law. The above report was generated using voice recognition software. It may contain grammatical, syntax o r spelling errors. Electronically signed by: Michele Maddox M.D. 02/22/2024 12:37 PM
--- NOTE | 2024-02-22 12:47 | CT Scan Report ---
HEAD CT NONCONTRAST CT DOSE: HISTORY: CA hx; gait instability TECHNIQUE: Multiaxial CT images of the head were performed without the use of intravenous contrast. A utomated exposure control was utilized for this study. A dose lowering technique was utilized adheri ng to the principles of ALARA. Comparison: Head CT 10/21/2023. Findings: The paranasal sinuses and mastoid air cells are clear. The calvarium and skull base are int act. There is no mass, hematoma, midline shift, acute infarct. White matter hypodensity is nonspecifi c but suggestive of microvascular ischemic change. The ventricles and sulci demonstrate mild age-rela sigrid involutional changes. Impression: No acute intracranial abnormality. ACT 112: Negative or not required by law. Electronically signed by: Zeyad Escalera M.D. 02/22/2024 12:46 PM
--- NOTE | 2024-02-22 13:07 | History & Physical Report ---
Date of Service February 22, 2024 Assessment & Plan (1) Atrial fibrillation with RVR: Plan: Patient is 78-year-old female with PMH CAD s/p stent, atrial fibrillation, SSS s/p pacemaker, chronic HFpEF, HTN, HLD, DM II, esophageal cancer currently receiving chemo and radiation and others listed below presented to ER from oncology center for tachycardia. Reported patient heart rate in 160s and had received Cardizem bolus, in ER after received Cardizem bolus with heart rate down to 58. Patient has trended back up into the 120s with BP 155/102. Cardizem drip has been started History Afib. Likely now RVR secondary to underlying PE On Cardizem drip with HR much improved to 108 with BP: 124/77 Patient did not have home metoprolol succinate (150 mg twice daily) yet today Will dose oral metoprolol tartrate now. Spoke to cardiology who recommended stopping Cardizem drip and metoprolol succinate 150mg AM and 100mg PM TSH level pending Digoxin level pending Troponin: 17.8-->18.6. EKG diffuse T wave changes. Likely secondary to heart strain from Afib RVR and PE Echo Pacemaker interrogation Started on Heparin IV in ER and will continue. Closely monitor for any signs or symptoms of bleeding EKG in a.m. Trend troponin Replace magnesium Cardiology consult CBC, BMP, magnesium labs in am (2) SOB (shortness of breath): (3) Pulmonary embolism: Plan: Off Eliquis since 12/2023 secondary to GI bleed. SOB x several days. Current esophageal cancer CTA Chest: 1. Cardiomegaly with bilateral segmental and subsegmental pulmonary emboli and probable associated right heart strain. 2. No pleural effusion or pulmonary infarct. 3. Mild lingular and right middle lobe bronchiectasis with stable subcentimeter nodules including tree-in-bud nodules which are likely infectious or inflammatory. A chronic bronchiolitis such as nontuberculous mycobacterium considered. 4. No lymphadenopathy. 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 Clear productive cough x several months CTA chest ?infectious vs inflammatory changes. Negative biofire respiratory panel Isolation precautions Will place on empiric cefepime for now Pulmonology consult CBC in am (6) Primary carcinoma of lower third of esophagus: Plan: Dysphagia Currently receiving chemo and radiation Last chemo reported 02/14/[address] Kolb Progressive dysphagia with recent diagnosis esophageal cancer. Patient has been following liquid diet Aspiration precautions Speech consult Ticket Collector consult for assistance with oral supplement Liquid diet for now (7) Chronic heart failure with preserved ejection fraction (HFpEF): Plan: Appears euvolemic Continue torsemide (8) DM type 2 (diabetes mellitus, type 2): Plan: A1c: 7.3 on 10/22/2023 Random glucose in ER 219 Hold home glipizide Continue home Lantus NovoLog sliding scale per protocol A1c in a.m. 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 See addendum I spent a total of 79 minutes reviewing notes, outpatient records, labs, medication, coordinating, documenting and providing care for this patient excluding time spent in the performance of separately billed services. History of Present Illness Primary Care Provider: Jason West MD Patient is 78-year-old female with PMH CAD s/p stent, atrial fibrillation, SSS s/p pacemaker, chronic HFpEF, HTN, HLD, DM II, esophageal cancer currently receiving chemo and radiation and others listed below presented to ER from oncology center for tachycardia. History obtained from patient, inpatient and outpatient chart review. Per chart review recent [facility] hospital admission 12/20/2023-12/25/2023 for upper GI bleed in setting of GE junction adenocarcinoma, gastritis, and on on aspirin and Eliquis in which she was was treated with IV PPI, s/p PRBC transfusion. During that admission cardiology and GI were consulted and it was recommended patient hold Eliquis and continue aspirin. Reported shortness of breath x 1 week. Cough for past several months productive clear sputum. Denies increased cough or hematuria. Reports a couple of days ago felt like her heart was pounding hard. Patient states that lasted a short while and then seem to resolve. She states the past several days has been having generalized weakness and "feels like a wet noodle". She uses a rollator walker for ambulating. States has not been ambulating much secondary to weakness. Denies any falls. Denies any headache, chest pain, fever, chills. Denies any noted epistaxis, hematuria, melena, hematochezia. Patient had presented to oncology office today for scheduled There she was found to be tachycardic in the 160s and was sent to ER. Last chemo reported 02/14/24. was unable to receive chemo secondary to leukopenia. She reports progressive dysphagia Denies fever/chills, diaphoresis, N/V/D/C, SOLORZANO, dizziness, syncope, vision changes, neck pain, CP, orthopnea, sore throat, otalgia, rhinorrhea, abdominal pain, paresthesias, increased extremity edema, rashes, urinary symptoms. Allergies Allergy/AdvReac Type Severity Reaction Status Date / Time cetirizine AdvReac Intermediate Hallucinati Verified 02/22/24 09:26 ng hydroxyzine AdvReac Intermediate Hallucinati Verified 02/22/24 09:26 ng Home Medications Medication Instructions Recorded Confirmed Type atorvastatin 40 mg tablet 40 mg PO QAM 06/18/18 02/22/24 History nitroglycerin 0.4 mg sublingual 0.4 mg sublingual DIRECTED PRN 06/18/18 02/22/24 History tablet (Nitrostat) Chest Pain oxybutynin chloride 5 mg tablet 5 mg PO BID 06/18/18 02/22/24 History acetaminophen 500 mg tablet 1,000 mg PO TID PRN PAIN/FEVER 05/18/22 02/22/24 History (Tylenol Extra Strength) aspirin 81 mg tablet,delayed 81 mg PO QAM 05/18/22 02/22/24 History release magnesium oxide 400 mg PO QDL 05/18/22 02/22/24 History peg 400-propylene glycol (PF) 0.4 1 drp OPB Q2H PRN Dry Eyes 05/18/22 02/22/24 History %-0.3 % eye drops in a dropperette (Systane (PF)) torsemide 10 mg tablet 10 mg PO DAILY #30 tabs 10/27/23 02/22/24 Rx calcium carbonate 600 mg-vitamin 1 cap PO BID 12/16/23 02/22/24 History D3 12.5 mcg (500 unit) capsule (Calcium 600 with Vitamin D3) metoprolol succinate 100 mg 150 mg PO BID 12/16/23 02/22/24 History tablet,extended release 24 hr pantoprazole 40 mg tablet,delayed 40 mg PO BID #60 tabs 12/25/23 02/22/24 Rx release loratadine 10 mg tablet (Claritin) 10 mg PO DAILY PRN allergies 12/29/23 02/22/24 History insulin glargine 100 unit/mL (3 20 unit subcut BIDM 02/01/24 02/22/24 History mL) subcutaneous pen (Lantus Solostar U-100 Insulin) digoxin 125 mcg (0.125 mg) tablet 0.125 mg PO PM 02/22/24 02/22/24 History glipizide 5 mg tablet 5 mg PO BID 02/22/24 02/22/24 History midodrine 2.5 mg tablet 2.5 mg PO UD 02/22/24 02/22/24 History Past Med/Surg History Problem List Bronchiectasis Multiple pulmonary nodules Neutropenia Tachy-barbra syndrome admitted for elective pacemaker. Underwent procedure no complications; monitored overnight and discharged home. 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) Mass of esophagus Syncope and collapse Pacemaker Dysphagia Anemia (Acute) Shortness of breath (Acute) Chest pain (Acute) Midsternal chest pain (Acute) Acid reflux Atypical chest pain Chest pain DVT prophylaxis Orthostatic hypotension SOB (shortness of breath) (Acute) Hypoxia (Acute) Fall (Acute) Atrial fibrillation with RVR (Acute) Chronic diastolic HF (heart failure) (Chronic) Paroxysmal A-fib (Chronic) on Eliquis Elevated lactic acid level (Acute) Osteoarthritis (Chronic) DM type 2 (diabetes mellitus, type 2) (Chronic) Dyslipidemia (Chronic) Hypertension (Chronic) Coronary artery disease (Chronic) "anterior CT 11/10/17, LVEF 20-25%, PCI LAD with ISABEL" Hx of supraventricular tachycardia (Chronic) H/O ovarian cystectomy (Chronic) History of appendectomy (Chronic) History of right knee joint replacement (Chronic) History of tonsillectomy (Chronic) History of cholecystectomy (Chronic) Status post coronary artery stent placement (Chronic) "PCI LAD with ISABEL 11/10/17" Medical History Polymyalgia rheumatica Overactive bladder Postural dizziness with presyncope Diabetic polyneuropathy Orthostatic hypotension Atrial fibrillation with rapid ventricular response Chest pain Chest pain Acute on chronic diastolic (congestive) heart failure Ischemic cardiomyopathy Surgical History History of ankle surgery Bilateral due to fracture History of cataract surgery Bilateral H/O shoulder surgery Right rotator cuff surgery History of carpal tunnel surgery Bilateral History of right hip replacement H/O esophagogastroduodenoscopy Family History Mother , 83yo Pancreatic cancer S/P CABG x 4 Diabetes Stroke Hypertension Father , 79yo Pancreatic cancer Myocardial infarction Hypertension Diabetes Brother , in his 50s Congenital heart defect Brother Myocardial infarction Stroke Brother Heart disease Brother No problems noted. Brother Bladder cancer Sister Thyroid cancer Sister No problems noted. Sister No problems noted. Social History Smoking Status: Never smoker Tobacco Type: Cigarettes Cigarettes Per Day: 1.5 PPD x 35yrs; Second Hand Exposure: No; Do You Dip or Chew Tobacco: No; Hx Alcohol Use: No Hx Substance Use: No Preferred Language: [place]an Communication Ability: Effective Visual Impairment: Limited Hearing Ability: Normal Tinner Automatic Required: No Beliefs That Will Affect Care: Oriental Orthodox Oriental Orthodox Beliefs: Sabianist marital status: / Current Living Situation: Alone Current Living Situation Comment: States she will be looking to move to assisted living current occupational status: retired current occupation: [employer] in [employer] How many Children do You have: 0 Other Information That Helps Us Care for You: Yes (States she may need to go to assisted living facility) Feels Safe at Home: Yes Safety Concerns: Feels Safe At This Time Diet: other caffeine: No during the past year weight has: decreased > 10 lbs Assistive Devices: Cane Assistive Devices Comment: Lisa with three wheels Review of Systems Review of Systems: All systems reviewed & are unremarkable except as noted in HPI & below Physical Exam Physical Exam: General: no current distress, +chronic ill appearing Head: normocephalic, atraumatic Eyes: conjunctiva non-injected, anicteric ENT: normal inspection external ears, nose, mucous membranes moist Neck: supple, trachea midline Lungs: clear, no respiratory distress, pulse ox 98% on RA, faint rhonchi noted LLL which cleared after coughing, no rales or wheezing noted CV: irregularly irregular, rate 124, 1+pretibial edema Abd: normal BS, soft, non-tender Ext: +brown skin discolorations bilateral lower legs noted, no cyanosis or other erythema noted, no calf tenderness Neuro: A&O x 3, no focal deficits noted, normal affect Skin: warm, dry Results & Data Results & Data Vital Signs (Past 12 Hours) Vital Signs Temp Pulse Pulse Resp BP BP Pulse Ox 02/22/24 12:44 120 H 20 159/118 H 96 02/22/24 12:13 120 H 20 155/102 H 02/22/24 10:54 58 L 02/22/24 10:43 102 H 24 94 02/22/24 10:42 98 H 24 157/117 H 95 02/22/24 10:14 36.5 C 116 H 26 H 155/86 H 98 O2 Del Method 02/22/24 12:44 Room Air 02/22/24 12:13 Room Air 02/22/24 10:54 02/22/24 10:43 Room Air 02/22/24 10:42 Room Air 02/22/24 10:14 Laboratory Results Short CBC 02/22/24 Range/Units 10:37 WBC 1.54 L (4.8-10.8) K/ul Hgb 9.7 L (12.0-16.0) g/dl Hct 32.1 L (37.0-47.0) % Plt Count 147 (130-400) K/uL BMP 02/22/24 10:37 Sodium 142 Potassium 4.5 Chloride 104 Carbon Dioxide 29 BUN 22 Creatinine 0.82 Glucose 219 H Calcium 9.4 Liver Function 02/22/24 Range/Units 10:37 Total Bilirubin 1.4 H (0.2-1.0) mg/dl AST 21 (13-39) U/L ALT 18 (7-52) U/L Alkaline Phosphatase 74 (34-104) U/L Albumin 3.8 (3.4-5.0) gm/dl Diagnostic Findings Chest CTA 02/22/24 10:23 CT angio chest PE protocol CT DOSE: 1397.22 mGy.cm HISTORY: 78 years-old Female with PE; CA hx, tachycardia, SOB. Acute shortness of breath with tachycardia TECHNIQUE: Multiple CTA images of the chest were obtained after the intravenous administration of 112 ml Optiray. Coronal and sagittal MIPS were obtained from the axial data set and were submitted for review. All measurements were obtained according to NASCET criteria. A dose lowering technique was utilized adhering to the principles of ALARA. COMPARISON: 12/21/2023. FINDINGS: CTA: Cardiomegaly with left subclavian pacer. No pericardial effusion. Extensive coronary artery calcifications. Atherosclerosis of aorta without aneurysm or dissection. Descending thoracic aortic tortuosity. Bilateral segmental and subsegmental pulmonary emboli are most pronounced in the left upper and right lower lobes. Mild straightening of the intraventricular septum. CT CHEST: Calcified thyroid nodules. No lymphadenopathy. No pneumothorax, pleural effusion, or overt pulmonary edema. 5 mm solid nodule noted within the superior segment right lower lobe, unchanged. Unchanged clustered solid nodules within the right upper lobe measuring up to 1.2 cm on image 158. Additional tree-in-bud nodules within the right middle lobe and lingula with areas of mild bronchiectasis. Solid nodules in the left lower lobe 5 mm, unchanged. Central airways are patent. Exophytic 2.1 cm peripherally calcified lesion of the right kidney. Cholecystectomy. Unremarkable soft tissues. No acute fracture or destructive bone lesion. IMPRESSION: 1. Cardiomegaly with bilateral segmental and subsegmental pulmonary emboli and probable associated right heart strain. 2. No pleural effusion or pulmonary infarct. 3. Mild lingular and right middle lobe bronchiectasis with stable subcentimeter nodules including tree-in-bud nodules which are likely infectious or inflammatory. A chronic bronchiolitis such as nontuberculous mycobacterium considered. 4. No lymphadenopathy. ACT 112: Negative or not required by law. The above report was generated using voice recognition software. It may contain grammatical, syntax or spelling errors. Electronically signed by: Michele Maddox M.D. 02/22/2024 12:37 PM Chest X-Ray 02/22/24 10:23 XR chest 1V portable CLINICAL HISTORY: Dyspnea. COMPARISON STUDY: Chest radiograph December 23, 2023. Chest CT December 21, 2023. PET/CT November 23, 2023. FINDINGS: Left subclavian pacer is in place. Elevation of the right hemidiaphragm is increased. Cardiomediastinal silhouette is stable. There is no evidence for pulmonary edema. There is a possible small right pleural effusion. No pneumothorax. IMPRESSION: 1. Increase in moderate elevation of the right hemidiaphragm. Suspected small right pleural effusion. 2. No consolidation to suggest pneumonia. No evidence for pulmonary edema. ACT 112: Negative or not required by law. Electronically signed by: Mando Garzon M.D. 02/22/2024 11:[address] 02/22/24 10:[address] DOSE: HISTORY: CA hx; gait instability TECHNIQUE: Multiaxial CT images of the head were performed without the use of intravenous contrast. Automated exposure control was utilized for this study. A dose lowering technique was utilized adhering to the principles of ALARA. Comparison: Head CT 10/21/2023. Findings: The paranasal sinuses and mastoid air cells are clear. The calvarium and skull base are intact. There is no mass, hematoma, midline shift, acute infarct. White matter hypodensity is nonspecific but suggestive of microvascular ischemic change. The ventricles and sulci demonstrate mild age-related involutional changes. Impression: No acute intracranial abnormality. ACT 112: Negative or not required by law. Electronically signed by: Zeyad Escalera M.D. 02/22/2024 12:46 PM ECG Additional Comments: Atrial fibrillation, RVR, rate 148, diffuse T wave abnormality per my interpretation Supervising Physician Co-Signing Physician Notes Pt was seen and examined by myself, Mary Anne Rowley MD on the day of service. Care was coordinated with Shahana De PA-C. 78yoF with complex medical Hx including esophageal cancer currently being treated with chemotherapy/radiation, current neutropenia, a fib presenting with difficulty breathing after being sent over from oncology for noted tachycardia. On exam, resting comfortably in bed. Irregular HR, breath sounds decreased No increased oxygen requirement, abd soft, nontender SOB, Pulmonary emboli, R pleural effusion, bronchiectasis- noted on CT chest. IV heparin, echo for noted heart strain, pulmonology consult. IV cefepime for infectious pulm etiology with neutropenia Atrial Fibrillation with RVR- received diltiazem load in the ED, no further doses. Home metoprolol succ dose resumed, cardiology consulted, appreciate recs Chronic Anemia-AM anemia panel with iron, b12 and folate, supplement as needed. Transfuse as needed Hyperglycemia-am [id number] Hypomagnesemia- replete as needed Elevated trop- trend, likely demand in setting of above, Hyperthyroidism- noted low tsh, elevated t4. possibly transient in this acute setting, continue to monitor. Consider Endocrine followup if persistent Esophageal cancer- following with oncology Otherwise as above. I spent a total [id number] coordinating, documenting, and providing care for this patient excluding time spent in the performance of separately billed services (9) Coronary artery disease Associated angina: without angina Coronary Disease-Associated Artery/Lesion type: [place] artery [place] vs. transplanted heart: [place] heart Qualified Code(s): I25.10 - Atherosclerotic heart disease of [place] coronary artery without angina pectoris (11) Hypertension Hypertension type: essential hypertension Qualified Code(s): I10 - Essential (primary) hypertension
[2024-02-22] MEDS: dilTIAZem HCL 125 MG in DEXTROSE 5% 100 ML IV SCH (13:27)
[2024-02-22 13:59] LABS: Troponin I High Sensitivity 18.6 pg/ml (0-14)
[2024-02-22 14:08] LABS: Thyroid Stimulating Hormone 0.087 uIu/ml (0.300-4.500)
[2024-02-22] MEDS: HEPARIN SODIUM/DEXTROSE 25,000 UNITS/500 ML BAG IV SCH (14:10)
[2024-02-22] MEDS: METOPROLOL TARTRATE 50 MG TAB PO STA (14:19)
[2024-02-22 14:45] LABS: T4 Free Thyroxine 1.7 ng/dl (0.61-1.60)
[2024-02-22] MEDS ORDERED: POLYETHYLENE (MIRALAX) 17 GM PACK PO PRN (14:55)
[2024-02-22] MEDS ORDERED: GLUCOSE 40% GEL 15 GM TUBE PO PRN (14:55)
[2024-02-22] MEDS ORDERED: ACETAMINOPHEN 325 MG TAB PO PRN (14:55)
[2024-02-22] MEDS ORDERED: GLUCAGON FOR INJ 1 MG VIAL SQ PRN (14:55)
[2024-02-22] MEDS ORDERED: DEXTROSE 50% 50 ML SYRINGE IV PRN (14:55)
[2024-02-22] MEDS ORDERED: GLUCOSE 10 TAB/TUBE PO PRN (14:55)
[2024-02-22] MEDS ORDERED: ONDANSETRON INJ 2 MG/ML 2 ML VIAL IV PRN (14:55)
[2024-02-22] MEDS: STAT IV Infusion **Titration per Protocol STA (15:06)
[2024-02-22] MEDS: Heparin IV Adult Wt-Based Standard *NO* INITIAL Bolus Protocol IV STA (15:07)
[2024-02-22] MEDS: CEFEPIME 2,000 MG in SYRINGE 0 ML IV SCH (15:08)
[2024-02-22] MEDS: MAGNESIUM SULFATE / D5W 1 GM/100 ML BAG IV ONE (15:09)
--- NOTE | 2024-02-22 15:51 | Pulmonary Consultation ---
Date of Consultation February 22, 2024 Assessment & Plan (1) Pulmonary embolism: (2) Permanent atrial fibrillation: (3) Multiple pulmonary nodules: (4) Bronchiectasis: Plan CTA chest 02/22/2024 personally reviewed: Motion degraded study Multiple pulmonary nodules appreciated bilaterally upper and lower lobes Pulmonary emboli in the left upper as well as right lower pulmonary arteries Tree-in-bud opacities appreciated in the lingula as well as the right middle lobe with minimal bronchiectasis No significant mediastinal lymphadenopathy -- Pulmonary emboli sPESI score 2, high sec to history of cancer Doppler lower extremities negative for DVT Saturating 99% room air No indication for tPA -- Abnormal chest CT Minimal bronchiectasis in the right middle as well as the lingula One of the sputum culture 10/25/2023 was positive for Mycobacterium avium complex Will repeat AFB -- Multiple pulmonary nodules Up to 5 mm Continue to monitor -- History of A-fib On Eliquis at home It seems that patient was not able to take Eliquis twice a day is because of her throwing it up Plan: No indication for tPA. Continue with anticoagulation, will need lifelong anticoagulation given the history of esophageal cancer. Recommend patient be discharged on Lovenox therapeutic twice daily given the inability to keep pills down consistently Follow-up AFB Flutter valve with Mucinex to help bring up the phlegm Please note the above document was generated using voice recognition software. It may contain grammatical, syntax or spelling errors.Any formal questions or concerns about the content, text or information contained within the body of this dictation should be directly addressed to the provider for clarification. History of Present Illness Attending Physician: Mary Anne Rowley MD History of Present Illness 78-year-old female presented to the hospital for tachycardia Past medical history: Esophageal cancer, currently receiving chemo and radiation, coronary artery disease s/p stent, sick sinus syndrome status post pacemaker, HFpEF, hypertension, dyslipidemia, diabetes Pulmonary consulted for abnormal chest CT At the time of examination patient was not in any respiratory distress Patient was saturating 99% on room air with heart rate in the high 80s to low 90s. She denies any chest pain, no headache, no blurry vision With the chemotherapy going on she has been having difficulty keeping her pills down. Eliquis which is supposed to be taken twice a day, she stated that in the last 3 weeks she might have taken it only once a day because she used to throw up most of the time Secondary to above Appetite is poor Social: ex smoker, quit a long time ago Allergies Allergy/AdvReac Type Severity Reaction Status Date / Time cetirizine AdvReac Intermediate Hallucinati Verified 02/22/24 09:26 ng hydroxyzine AdvReac Intermediate Hallucinati Verified 02/22/24 09:26 ng Home Medications Medication Instructions Recorded Confirmed Type atorvastatin 40 mg tablet 40 mg PO QAM 06/18/18 02/22/24 History nitroglycerin 0.4 mg sublingual 0.4 mg sublingual DIRECTED PRN 06/18/18 02/22/24 History tablet (Nitrostat) Chest Pain oxybutynin chloride 5 mg tablet 5 mg PO BID 06/18/18 02/22/24 History acetaminophen 500 mg tablet 1,000 mg PO TID PRN PAIN/FEVER 05/18/22 02/22/24 History (Tylenol Extra Strength) aspirin 81 mg tablet,delayed 81 mg PO QAM 05/18/22 02/22/24 History release magnesium oxide 400 mg PO QDL 05/18/22 02/22/24 History peg 400-propylene glycol (PF) 0.4 1 drp OPB Q2H PRN Dry Eyes 05/18/22 02/22/24 History %-0.3 % eye drops in a dropperette (Systane (PF)) torsemide 10 mg tablet 10 mg PO DAILY #30 tabs 10/27/23 02/22/24 Rx calcium carbonate 600 mg-vitamin 1 cap PO BID 12/16/23 02/22/24 History D3 12.5 mcg (500 unit) capsule (Calcium 600 with Vitamin D3) metoprolol succinate 100 mg 150 mg PO BID 12/16/23 02/22/24 History tablet,extended release 24 hr pantoprazole 40 mg tablet,delayed 40 mg PO BID #60 tabs 12/25/23 02/22/24 Rx release loratadine 10 mg tablet (Claritin) 10 mg PO DAILY PRN allergies 12/29/23 02/22/24 History insulin glargine 100 unit/mL (3 20 unit subcut BIDM 02/01/24 02/22/24 History mL) subcutaneous pen (Lantus Solostar U-100 Insulin) digoxin 125 mcg (0.125 mg) tablet 0.125 mg PO PM 02/22/24 02/22/24 History glipizide 5 mg tablet 5 mg PO BID 02/22/24 02/22/24 History midodrine 2.5 mg tablet 2.5 mg PO UD 02/22/24 02/22/24 History Patient History Medical History Polymyalgia rheumatica Overactive bladder Postural dizziness with presyncope Diabetic polyneuropathy Orthostatic hypotension Atrial fibrillation with rapid ventricular response Chest pain Chest pain Acute on chronic diastolic (congestive) heart failure Ischemic cardiomyopathy Surgical History History of ankle surgery Bilateral due to fracture History of cataract surgery Bilateral H/O shoulder surgery Right rotator cuff surgery History of carpal tunnel surgery Bilateral History of right hip replacement H/O esophagogastroduodenoscopy Family History Mother , 83yo Pancreatic cancer S/P CABG x 4 Diabetes Stroke Hypertension Father , 79yo Pancreatic cancer Myocardial infarction Hypertension Diabetes Brother , in his 50s Congenital heart defect Brother Myocardial infarction Stroke Brother Heart disease Brother No problems noted. Brother Bladder cancer Sister Thyroid cancer Sister No problems noted. Sister No problems noted. Social History Smoking Status: Never smoker Tobacco Type: Cigarettes Cigarettes Per Day: 1.5 PPD x 35yrs; Second Hand Exposure: No; Do You Dip or Chew Tobacco: No; Hx Alcohol Use: No Hx Substance Use: No Preferred Language: Czech Communication Ability: Effective Visual Impairment: Limited Hearing Ability: Normal R&D Lab Technician Required: No Beliefs That Will Affect Care: Voodoo Voodoo Beliefs: Hinduism marital status: / Current Living Situation: Alone Current Living Situation Comment: States she will be looking to move to assisted living current occupational status: retired current occupation: [employer] in [employer] How many Children do You have: 0 Other Information That Helps Us Care for You: Yes (States she may need to go to assisted living facility) Feels Safe at Home: Yes Safety Concerns: Feels Safe At This Time Diet: other caffeine: No during the past year weight has: decreased > 10 lbs Assistive Devices: Cane Assistive Devices Comment: Wlcherri with three wheels Review of Systems 2 Review of Systems: All systems reviewed & are unremarkable except as noted in HPI & below Physical Exam 2 Physical Exam: Constitutional: No acute distress HEENT: EOMI, PERRLA Respiratory system: Decreased air entry bilaterally, no wheeze, no rhonchi, mild crackles bilateral lower lobes CVS: S1-S2 positive, no murmurs or gallops Abdomen: Soft, nontender, nondistended, positive bowel sounds x4 Extremities: +2 pulses bilaterally radialis/ dorsalis pedis, no cyanosis, +1 pitting edema bilateral lower extremity Neuro: Awake alert oriented x3 Psych: Normal mood and affect G/U: No Whitaker Skin: no rashes, warm and dry Lymphatic: no cervical or axillary lymphadenopathy Results & Data Results & Data Vital Signs (Past 12 Hours) Vital Signs Temp Pulse Pulse Resp BP BP Pulse Ox 02/22/24 14:00 106 H 22 124/87 98 02/22/24 12:44 120 H 20 159/118 H 96 02/22/24 12:13 120 H 20 155/102 H 02/22/24 10:54 58 L 02/22/24 10:43 102 H 24 94 02/22/24 10:42 98 H 24 157/117 H 95 02/22/24 10:14 36.5 C 116 H 26 H 155/86 H 98 O2 Del Method 02/22/24 14:00 Room Air 02/22/24 12:44 Room Air 02/22/24 12:13 Room Air 02/22/24 10:54 02/22/24 10:43 Room Air 02/22/24 10:42 Room Air 02/22/24 10:14 Laboratory Results 02/22/24 10:37 02/22/24 10:37 PG Care Time/CCT Total # of Minutes Spent Total Time Spent with Patient: Total time spent is greater than 50% in coordination of care (as documented) at patient's floor/unit and/or counseling patient: Coding Level of Care Code 82537 INT INP/OBS CARE 3/75MIN Diagnoses Pulmonary embolism I26.99 Permanent atrial fibrillation I48.21 Multiple pulmonary nodules R91.8 Bronchiectasis J47.9
--- NOTE | 2024-02-22 16:28 | Ultrasound Report ---
BILATERAL LOWER EXTREMITY VENOUS DOPPLER CLINICAL HISTORY: Bilateral lower extremity edema. Pulmonary emboli. Evaluate for pulmonary embolus. COMPARISON STUDY: No previous studies for comparison. TECHNIQUE: Sonography of the deep venous system of the bilateral lower extremities was performed. Co mpression and augmentation were evaluated. FINDINGS: This exam is mildly compromised given suboptimal penetration. The bilateral common femoral , superficial femoral and popliteal veins were compressible. Augmentation was normal. Flow was shown within the deep calf vessels. IMPRESSION: Exam mildly compromised from a technical standpoint but no evidence of deep venous thromb us within the bilateral lower extremities. ACT 112: Negative or not required by law. Electronically signed by: Mando Garzon M.D. 02/22/2024 4:27 PM
[2024-02-22] MEDS: PANTOprazole 40 MG TAB PO ONE (16:30)
[2024-02-22] MEDS: DIGOXIN 0.125 MG TAB PO SCH (16:30)
[2024-02-22] MEDS: DOXYCYCLINE HYCLATE 100 MG in DEXTROSE 5% MINI-B 100 ML IV SCH (16:31)
[2024-02-22] MEDS: MIDODRINE HCL 2.5 MG TAB PO SCH (16:31)
[2024-02-22] MEDS ORDERED: METOPROLOL TARTRATE 50 MG TAB PO SCH (17:00)
[2024-02-22] MEDS: INSULIN ASPART PER UNIT CHARGE SC SCH (17:42)
[2024-02-22] MEDS: CALCIUM 600MG + VIT D 400 IU TAB PO SCH (20:04)
[2024-02-22] MEDS: PANTOprazole 40 MG TAB PO SCH (20:05)
[2024-02-22] MEDS: oxyBUTYnin chloride 5 MG TAB PO SCH (20:05)
[2024-02-22] MEDS: guaiFENesin 600 MG TABCR PO SCH (20:05)
[2024-02-22] MEDS: METOPROLOL SUCC 50MG EXT REL TAB PO SCH (20:06)
[2024-02-22] MEDS: LANTUS PER UNIT CHARGE SQ SCH (20:11)
[2024-02-22 20:27] LABS: ANTI-Xa, UFH(UnfractionatedHep 0.49 IU/ml (0.3-0.7)
[2024-02-22 22:40] LABS: Appearance Urine Clear (Clear); Bacteria Urine Automated None Seen (None Seen); Bilirubin Urine Negative (Negative); Blood Urine Negative (Negative); Color Urine Yellow; Epithelial Cell Urine Auto 0-2 /hpf (0-2); Glucose Urine UA 2+ (Negative); Ketones Urine Trace (Negative); Leukocyte Esterase Urine Negative (Negative); Nitrite Urine Negative (Negative); Protein Urine Trace (Negative); Specific Gravity Urine > 1.045 (1.000-1.030); Urobilinogen Urine Negative (Negative); WBC Urine Automated 0-5 /hpf (0-5); pH Urine 5.5 (4.5-7.5)
--- OUTSIDE RECORDS SUMMARY | 2024-02-23 02:41 | External Medical Summary | Summary of Care ---
Author Name Unknown Organization [facility] Address [address] [place] [facility] [place] [address] Phone [phone] Care Team Providers Care Oil Furnace Installer Name Role Phone Jason West MD Primary Care Provider [phone] Reason for Visit * Reason Comments Nurse Documentation Delay treatment Encounter Details Date Type Department Care Team (Latest Contact Info) Description 02/21/2024 10:00 AM EDT Hem/Onc Treatment Hematology/Oncology Treatment, [place] [address] [place] [address] GE junction carcinoma (HCC)* Allergies Active Allergy Reactions Criticality Noted Date Comments Hydroxyzine Hcl 05/12/2012 halluzinating Cetirizine & Related 02/11/1999 HALLUCINATIONS documented as of this encounter (statuses as of 02/21/2024) Medications Medication Sig Dispensed Refills Start Date End Date Status MULTIVITAMIN/COOK APPRENTICE AL FORMULA TABS OR 1 TABLET DAILY 0 0 12/02/2001 Active SYSTANE PRESERVATIVE FREE 0.4-0.3 % OP SOLNIndications:Ot her anterior corneal dystrophies 1 gtt OU q2h WA 1 box 6 12/03/2008 Active CALCIUM 4659-0602 MG-UNIT PO CHEW Take 1 Tablet by [...] 81 MG TBECIndications:Co ronary artery disease involving tling[place] & [place] coronary artery of tling[place] & [place] heart without angina pectoris Take 1 Tab by mouth daily. 30 Tab 11 07/17/2019 Active Loratadine 10 MG Oral Capsule Take 1 Capsule by mouth in the morning. Active Magnesium 400 MG Capsule Take 1 by mouth daily. 30 Cap 11 01/11/2020 Active acetaminophen (TYLENOL) 325 MG Tablet 2 Tablets. 04/13/2020 Active Nitroglycerin 0.4 MG Sublingual Tablet Sublingual (Nitrostat)Indicat ions:Coronary artery disease involving tling[place] & ha[place] coronary artery of tling[place] & [place] heart without angina pectoris,Old MS (myocardial infarction) Place 1 Tablet under the tongue every 5 minutes as needed for Pain, Chest. 25 Tablet 5 09/03/2022 Active Insulin Pen Needle 32G X 5 [...] Oral Tablet (Lipitor)Indicatio ns:Coronary artery disease involving tling[place] & [place] coronary artery of tling[place] & [place] heart without angina pectoris,Dyslipide mona TAKE 1 TABLET DAILY IN THE MORNING 90 Tablet 3 05/27/2023 Active Insulin Glargine Solostar 100 UNIT/ML Subcutaneous Solution Pen-injector (Lantus SoloStar)Indicatio ns:DM type 2 causing renal disease, not at goal ([facility]) INJECT 20 UNITS SUBCUTANEOUSLY TWICE DAILY 30 mL 2 07/08/2023 Active Digoxin 125 MCG Oral Tablet (Lanoxin)Indicatio ns:Chronic systolic heart failure (HCC),Coronary artery disease involving tling[place] & haida coronary artery of tling[place] & [place] heart without angina pectoris Take 1 Tablet [...] THE EVENING 230 Tablet 3 09/22/2023 Active Advanced Probiotic Oral Capsule Take 1 Capsule by mouth daily. Active glipiZIDE 5 MG Oral Tablet (Glucotrol) Take 1 Tablet by mouth in the morning and 1 Tablet before bedtime. 180 Tablet 3 12/28/2023 Active Ondansetron HCl 8 MG Oral TabletIndications: GE junction carcinoma (HCC) Take 1 Tablet by mouth every 8 hours as needed for Nausea. 30 Tablet 01/04/2024 Active Prochlorperazine Maleate 10 MG Oral Tablet (Compazine)Indicat ions:GE junction carcinoma (HCC) Take 1 Tablet by mouth every 6 hours as needed for Nausea. 30 Tablet 01/04/2024 Active dexAMETHasone 4 MG Oral TabletIndications: GE junction carcinoma (HCC) 12 mg (3 tab) 12 and 6 hours before chemotherapy 40 Tablet 01/04/2024 Active Midodrine HCl 2.5 MG Oral Tablet (Proamatine) Take 1 tablet shortly before or upon rising in the morning, midday, and again in late afternoon but no later than 6:00 p.m.. 270 Tablet 3 01/10/2024 Active Torsemide 10 MG Oral Tablet (Demadex) Take 1 Tablet by mouth in the morning. 90 Tablet 3 01/10/2024 Active Pantoprazole Sodium 40 MG Oral Tablet Delayed Release (Protonix) Take 1 Tablet by mouth 2 times a day. 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 Chronic kidney disease, [...] Dyslipidemia 02/18/2018 Coronary artery disease invo lving tlingit & haida coronary artery of tling[place] & ha[place] heart without angina pectoris 12/10/2017 PAF (paroxysmal atrial fibrillation) 12/10/2017 Type 2 diabetes mellitus wit h hemoglobin A1c goal of less than 8.0% 09/08/2013 Overview: ICD-10 update of inactive term DJD, CERVICAL SPINE 04/12/2002 GENERAL OSTEOARTHROSIS documented as of this encounter (statuses as of 02/21/2024) Resolved Problems Problem Noted Date Diagnosed Date [...] as of this encounter (statuses as of 02/21/2024) Immunizations Name Administration Dates Next Due COVID-19 mRNA, LNP-s, No Pre serve, 2-Dose Series (Audingo) 07/23/2021,11/14/2020,10/24/2020 COVID-19, MRNA-LNP, 23-24, P F, 30 MCG/0.3 mL, 12 YRS AND ABOVE, IM ([facility] 05/26/2023 Covid-19, Mrna, Lnp-s, Pf, B ivalent, 30 Mcg, IM, 12 yrs and above (Audingo) 05/26/2022 Pneumococcal Conjugate Vacc, 13 Valent (Prevnar) [...] 04/30/2021 TDAP (age 10 and older)(Boostrix) 06/29/2023 TDAP, Age 7 and older, IM (Adacel) 02/28/2008 Zoster Vaccine Recombinant (Shingrix) 12/07/2018 ,06/28/2018 [...] money to get more. Never true 12/02/2022 Utilities Answer Date Recorded Do you have trouble paying y our heating, water, or electric bill? (Adult - for ages 18 years and over) Not on file 01/18/2024 Is your family able to pay t he heat, water, or electric bill? (Household - for ages 0-17 years) Not on file 01/18/2024 Does your family have access to good internet? (Household - for ages 0-17 years) Not on file 01/18/2024 Social Connections Answer Date Recorded How often do you feel lonely or isolated from those around you? (Adult - for ages 18 years and over) Not on file 01/18/2024 Sex and Gender Information Value Date Recorded Sex Assigned at Female 12/07/2018 9:04 AM EDT Gender Identity Female 12/07/2018 9:04 AM EDT Sexual Orientation Straight 12/07/2018 9: 04 AM EDT Job Start Date Occupation Industry Not on file Not on file Not on file documented as of this encounter Nursing Notes * Christie Sotelo RN - 02/21/2024 12:[address] Kolb, reschedule treatment to Wednesday02/25/24. Pt scheduled accordingly. documented in this encounter Plan of Treatment Upcoming Encounters Date Type Department Care Team (Late st Contact Info) Description 02/24/2024 10:00 AM EDT Laboratory Laboratory, [place] [address] [place] [facility] [place] [phone] [facility] [address] [facility] [place] [id number] 02/25/2024 10:15 AM EDT [facility] [address] [place] [phone] Jeny, Chair 5 Hem Onc [facility] [address] [facility] [place] [address] 03/01/2024 12:30 PM EDT Office Visit Hematology/Oncology [facility] [address] [facility] [place] [phone] Marquez Kolb MD [address] [facility] [place] [address] 04/05/2024 1:00 PM EDT Office Visit [facility] [address] [facility] [place] [phone] Jason West MD [address] [place] [facility] [place] [address] 05/15/2024 10:45 AM EDT Imaging Radiology [facility] 1st Floor, [address] [place] [address] Health Maintenance Due Date Last Done Comments Hepatitis C Screening 1963 COVID-19 Vaccine (2022- season) 2023 05/26/2023, 05/26/2022, 07/23/2021, Additional history exists Depression Monitoring 12/03/2023 12/02/2022 DIG LEVEL FOR MEDICATION MONITORING YEARLY 03/08/2024 03/08/2023, 10/02/2022, 07/29/2021 Influenza Vaccine (FLU shot) (#1) 2024 05/26/2023, 05/22/2022, 04/30/2021, Additional history exists HbA1c 06/18/2024 12/17/2023, 08/01/2023, 10/02/2022, Additional history exists GFR 08/21/2024 02/19/2024, 01/30, 02/05/2024, Additional history exists Diabetic Eye Exam 11/01/2024 11/02/2023, , 04/07/2019, Additional history exists Diabetic Foot Exam 11/01/2024 11/02/2023, 0 03/17/2021, 12/27/2019, Additional history exists Albumin/Creatinine Ratio 02/18/2025 024, 10/02/2022, 08/28/2021, Additional history exists CKD HGB USE SMARTSET 55444 02/18/202502/18, 02/19/2024, 02/12/2024, Additional history exists CKD PHOS USE SMARTSET 31168 02/18/2025 07/2 , 10/02/2022, 03/17/2021, Additional history exists DXA Scan 03/21/2026 03/21/2019, 07/02, 07/12/2013, Additional history exists DTaP,Tdap,and Td Vaccines (3 - Td or Tdap) 06/29/2033 06/29/2023, 02/28/2008, 05/02/1992 Pneumococcal Vaccine: 65+ Years Completed 10/24/2014, 12/28/2012, 12/16/2006, Additional history exists Zoster Vaccines Completed 12/07/2018, 06/28/2018 HPV (Gardasil) Vaccine Aged Out No lo nger eligible based on patient's age to complete this topic Hepatitis B Vaccine Aged Out No longe r eligible based on patient's age to complete this topic MENINGOCOCCAL (MENACTRA/MENVEO) Aged Out No longer eligible based on patient's age to complete this topic documented as of this encounter Medical Devices Not on filedocumented as of this encounter Visit Diagnoses Diagnosis 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
--- OUTSIDE RECORDS SUMMARY | 2024-02-23 02:41 | External Medical Summary | Summary of Care ---
Author Name Unknown Organization [facility] Address [address] [facility] [address] Phone [phone] Care Team Providers Care Refuse Laborer Name Role Phone Jason West MD Primary Care Provider +1- [phone] Reason for Visit * Reason Onset Date Comments Test Results Lab 02/19/2024 Encounter Details Date Type Department Care Team (Late st Contact Info) Description 02/19/2024 Telephone Hematology/Oncology [place] 200 [facility] [place] [phone] Pete Iqbal MD 200 [place] [address] Test Results Lab Allergies Active Allergy Reactions Criticality Noted Date Comments Hydroxyzine Hcl 05/12/2012 halluzinating Cetirizine & Related 02/11/1999 HALLUCINATIONS documented as of this encounter (statuses as of 02/21/2024) Medications Medication Sig Dispensed Refills Start Date End Date Status MULTIVITAMIN/IT COMMUNICATIONS SPECIALIST AL FORMULA TABS OR 1 TABLET DAILY 0 0 12/02/2001 Active SYSTANE PRESERVATIVE FREE 0.4-0.3 % OP SOLNIndications:Ot her anterior corneal dystrophies 1 gtt OU q2h [place] 1 box 6 12/03/2008 Active CALCIUM 9663-8308 MG-UNIT PO CHEW Take 1 Tablet by [...] 81 MG TBECIndications:Co ronary artery disease involving [place] coronary artery of [place] heart without angina pectoris Take 1 Tab by mouth daily. 30 Tab 11 07/17/2019 Active Loratadine 10 MG Oral Capsule Take 1 Capsule by mouth in the morning. Active Magnesium 400 MG Capsule Take 1 by mouth daily. 30 Cap 11 01/11/2020 Active acetaminophen (TYLENOL) 325 MG Tablet 2 Tablets. 04/13/2020 Active Nitroglycerin 0.4 MG Sublingual Tablet Sublingual (Nitrostat)Indicat ions:Coronary artery disease involving [place] coronary artery of [place] heart without angina pectoris,Old [place] (myocardial infarction) [...] Oral Tablet (Lipitor)Indicatio ns:Coronary artery disease involving [place] coronary artery of 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 coronary artery of [place] heart without angina pectoris Take 1 Tablet [...] a day. 180 Tablet 3 01/10/2024 Active Zitra.com Verio w/Device Kit Use up to 4 [...] Dyslipidemia 02/18/2018 Coronary artery disease invo lving [place] coronary artery of [place] heart without angina pectoris 12/10/2017 PAF (paroxysmal [...] mRNA, LNP-s, No Pre serve, 2-Dose Series (Insightix) 07/23/2021,11/14/2020,10/24/2020 COVID-19, MRNA-LNP, 23-24, P F, 30 MCG/0.3 mL, 12 YRS AND ABOVE, IM ([facility]) 05/26/2023 Covid-19, Mrna, Lnp-s, Pf, [...] Age 7 and older, IM (Adacel) 02/28/2008 Unknown Immunization 2001 Zoster Vaccine Recombinant [...] Telephone Encounter - Saba Sevilla OSA - 02/21/2024 11:57 AM EDT Pt is scheduled called pt to make aware * Addendum Note - Delmy Beal RN - 02/21/2024 10:56 AM EDTAddended by: DELMY BEAL on: 02/21/2024 10:56 AM Modules accepted: Orders * Telephone Encounter - Delmy Beal RN - 02/21/2024 10:19 AM EDT Patient presented- does not want repeat labs. Would be agreeable to labs if this could be done withIV start, but does not want to wait for results. Reviewed with Dr Kolb- delay treatment to Wednesday. Patient agreeable, would like to do labs in [place]. She does not remember what time she is scheduled for radiation either of these days. Spoke to rad/onc, she is scheduled at 9:05 and Wednesday Scheduling: - please schedule lab appt 02/23 in [place] around 10am "CBCd, CMP" - please schedule 3 hour appt Saturday 02/24 "C1D29 carbo/ taxol" at 10am Sent staff message with who can be moved to accommodate. * Telephone Encounter - Saba Sevilla OSA - 02/21/2024 9:21 AM EDT Pt added to the schedule * Telephone Encounter - Delmy Beal RN - 02/21/2024 8:10 AM EDT Attempted to call patient. Left message asking her to come at 9am this morning instead of 10am for repeat lab work. Scheduling: please add lab appt today at 9am "CBCd, CMP". Left message for patient regarding this. Thanks! * Telephone Encounter - Delmy Beal RN - 02/21/2024 7:42 AM EDT Patient is scheduled for chemotherapy today at 10am. * Telephone Encounter - Pete Iqbal MD - 02/19/2024 10:37 AM EDT I received [place] text from lab regarding low WBC count of 0.79, H&H of 9.3/30.9, platelet countof 93,000. I spoke with the patient, reviewed her blood workup findings, no fever, feeling weak and tired, currently he received weekly paclitaxel carboplatin along with radiation treatment. No need for prophylactic antibiotic therapy. She scheduled for next cycle of chemotherapy on 02/21/2024. I'm not sure why blood workup was done today and not on the day of the treatment. She will need another CBCD on 02/21/2024 before we proceed for next cycle of chemotherapy. documented in this encounter Plan of Treatment Upcoming Encounters Date Type Department Care Team (Late st Contact Info) Description 02/24/2024 10:00 AM EDT Laboratory [facility], [place] [address] [facility] [phone] [facility] Laboratory [address] [place] [facility] [place] [address] 02/25/2024 10:15 AM EDT Hem/Onc Treatment Hematology/Oncology Treatment, [place] [address] [place] [phone] Jeny, Chair 5 Hem Onc [facility] [address] [place] [address] 03/01/2024 12:30 PM EDT Office Visit Hematology/Oncology [facility] [place] [address] [place] [phone] Marquez Kolb MD [address] [place] [address] 04/05/2024 1:00 PM EDT Office Visit Family Practice, [place] [address] [facility] [phone] Jason West MD [address] [place] [facility] [place] [address] 05/15/2024 10:45 AM EDT Imaging Radiology [facility]st [facility], [place] [address] [facility] [place] [address] Health Maintenance Due Date Last Done Comments Hepatitis C Screening 1963 COVID-19 Vaccine (2022- season) 2023 05/26/2023, 05/26/2022, 07/23/2021, Additional history exists Depression Monitoring 12/03/2023 12/02/2022 DIG LEVEL FOR MEDICATION MONITORING YEARLY 03/08/2024 03/08/2023, 10/02/2022, 07/29/2021 Influenza Vaccine (FLU shot) (#1) 2024 05/26/2023, 05/22/2022, 04/30/2021, Additional history exists HbA1c 06/18/2024 12/17/2023, 08/0 01/2023, 10/02/2022, Additional history exists GFR 08/21/2024 02/19/2024, 01/30, 02/05/2024, Additional history exists Diabetic Eye Exam 11/01/2024 11/02/2023, , 04/07/2019, Additional history exists Diabetic Foot Exam 11/01/2024 11/02/2023, 0 03/17/2021, 12/27/2019, Additional history exists Albumin/Creatinine Ratio 02/18/2025 024, 10/02/2022, 08/28/2021, Additional history exists CKD HGB USE SMARTSET 12012 02/18/202502/18, 02/19/2024, 02/12/2024, Additional history exists CKD PHOS USE SMARTSET 25498 02/18/2025 07/2 , 10/02/2022, 03/17/2021, Additional history [...] filedocumented as of this encounter Care Teams Refuse Laborer Relationship Specialty Start Date End Date Jason West MD [address] [place] [address] PCP - General 02/06/03 documented as of this encounter
--- OUTSIDE RECORDS SUMMARY | 2024-02-23 02:42 | External Medical Summary | Summary of Care ---
Author Name Unknown Organization [facility] Address [address] [facility] [address] Phone [phone] Care Team Providers Care Doughnut Icer Machine Name Role Phone Jason West MD Primary Care Provider [phone]- [phone] Reason for Visit * Reason Onset Date Comments Test Results Lab 02/19/2024 Encounter Details Date Type Department Care Team (Late st Contact Info) Description 02/19/2024 Telephone Hematology/Oncology [place] Jeny [place] 200 [facility] [place] [phone] Pete Iqbal MD 200 [place] [address] Test Results Lab Allergies Active Allergy Reactions Criticality Noted Date Comments Hydroxyzine Hcl 05/12/2012 halluzinating Cetirizine & Related 02/11/1999 HALLUCINATIONS documented as of this encounter (statuses as of 02/21/2024) Medications Medication Sig Dispensed Refills Start Date End Date Status MULTIVITAMIN/STEAMER BLOCKER AL FORMULA TABS OR 1 TABLET DAILY 0 0 12/02/2001 Active SYSTANE PRESERVATIVE FREE 0.4-0.3 % OP SOLNIndications:Ot her anterior corneal dystrophies 1 gtt OU q2h WA 1 box 6 12/03/2008 Active CALCIUM 2513-9586 MG-UNIT PO CHEW Take 1 Tablet by [...] 81 MG TBECIndications:Co ronary artery disease involving [place] coronary artery of [place] heart without angina pectoris Take 1 Tab by mouth daily. 30 Tab 11 07/17/2019 Active Loratadine 10 MG Oral Capsule Take 1 Capsule by mouth in the morning. Active Magnesium 400 MG Capsule Take 1 by mouth daily. 30 Cap 11 01/11/2020 Active acetaminophen (TYLENOL) 325 MG Tablet 2 Tablets. 04/13/2020 Active Nitroglycerin 0.4 MG Sublingual Tablet Sublingual (Nitrostat)Indicat ions:Coronary artery disease involving [place] coronary artery of [place] heart without angina pectoris,Old [place] (myocardial infarction) Place 1 Tablet under the tongue every 5 minutes as needed for Pain, Chest. 25 Tablet 5 09/03/2022 Active Insulin Pen Needle 32G X 5 MMIndications:DM type 2 causing renal disease, not at goal ([facility]) use to inject lantus twice per day 200 Each 3 03/26/2023 Active OneTouch Verio In Vitro Strip (Glucose Blood)Indications: DM type 2 causing renal disease ([facility]) Check blood sugars one time daily. 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 180 Tablet 3 01/10/2024 Active Cryoport Verio w/Device Kit Use up to 4 [...] Dyslipidemia 02/18/2018 Coronary artery disease invo lving [place] coronary artery of [place] heart without angina pectoris 12/10/2017 PAF (paroxysmal [...] mRNA, LNP-s, No Pre serve, 2-Dose Series (Ludesi) 07/23/2021,11/14/2020,10/24/2020 COVID-19, MRNA-LNP, 23-24, P F, 30 MCG/0.3 mL, 12 YRS AND ABOVE, IM ([facility]) 05/26/2023 Covid-19, Mrna, Lnp-s, Pf, B [...] encounter Miscellaneous Notes * Telephone Encounter - Delmy Beal RN [...] - 02/19/2024 10:37 AM EDT I received [place] text from lab regarding low WBC count [...] Care Team (Late st Contact Info) Description 02/21/2024 10:00 AM EDT Hem/Onc Treatment Hematology/Oncology Treatment, [place] 200 [place] [phone] 03/01/2024 12:30 PM EDT Office Visit Hematology/Oncology [facility] 200 [place] [phone] Marquez Kolb [facility] [address] [facility] [address] 04/05/2024 1:00 PM EDT Office Visit [facility] [address] [place] [address] Jason West MD [address] [place] [address] 05/15/2024 10:45 AM EDT Imaging Radiology [address], [place] [address] [facility] [place] [address] Health Maintenance Due Date Last Done Comments [...] Additional history exists CKD HGB USE SMARTSET 86088 02/18/202502/18, 02/19/2024, 02/12/2024, Additional history exists CKD PHOS USE SMARTSET 04241 02/18/202501/31, 10/02/2022, 03/17/2021, Additional history exists DXA Scan [...] filedocumented as of this encounter Care Teams Doughnut Icer Machine Relationship Specialty Start Date End Date Jason West MD [address] [place] [address] PCP - General 02/06/03 documented as of this encounter
--- OUTSIDE RECORDS SUMMARY | 2024-02-23 02:42 | External Medical Summary | Summary of Care ---
Author Name Unknown Organization [facility] Address [address] [facility] [address] Phone [phone] Care Team Providers Care Help Desk Intern Name Role Phone Jason West MD Primary Care Provider +1- [phone] Encounter Details Date Type Department Care Team (Late st Contact Info) Description 02/21/2024 Orders Only Hematology/Oncology [facility] Jeny [place] 200 [facility] [place] [phone] Marquez Kolb MD 200 [facility] [place] [address] Allergies Active Allergy Reactions Criticality Noted Date Comments Hydroxyzine Hcl 05/12/2012 halluzinating Cetirizine & Related 02/11/1999 HALLUCINATIONS documented as of this encounter (statuses as of 02/21/2024) Medications Medication Sig Dispensed Refills Start Date End Date Status MULTIVITAMIN/INSOLE DOUBLER AL FORMULA TABS OR 1 TABLET DAILY 0 0 12/02/2001 Active SYSTANE PRESERVATIVE FREE 0.4-0.3 % OP SOLNIndications:Ot her anterior corneal dystrophies 1 gtt OU q2h WA 1 box 6 12/03/2008 Active CALCIUM 9329-1421 MG-UNIT PO CHEW Take 1 Tablet by [...] 81 MG TBECIndications:Co ronary artery disease involving [place] coronary artery of [...] Tablet Sublingual (Nitrostat)Indicat ions:Coronary artery disease involving [place] coronary artery of [place] heart without angina pectoris,Old [place] (myocardial infarction) Place 1 Tablet under the tongue every 5 minutes as needed for Pain, Chest. 25 Tablet 5 09/03/2022 Active Insulin Pen Needle 32G X 5 MMIndications:DM type 2 causing renal disease, not at goal ([facility]) use to inject lantus twice per day 200 Each 3 03/26/2023 Active OneTouch Verio In Vitro Strip (Glucose Blood)Indications: 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 Dx E11.9 300 Strip 2 05/03/2023 Active Atorvastatin Calcium 40 MG Oral Tablet (Lipitor)Indicatio ns:Coronary artery disease involving [place] coronary artery of [place] heart without angina pectoris,Dyslipide mona TAKE 1 TABLET DAILY IN THE MORNING 90 Tablet 3 05/27/2023 Active Insulin Glargine Solostar 100 UNIT/ML Subcutaneous Solution Pen-injector (Lantus SoloStar)Jasmintio ns:DM type 2 causing renal disease, not at goal ([facility]) INJECT 20 UNITS SUBCUTANEOUSLY TWICE DAILY 30 mL 2 07/08/2023 Active Digoxin 125 MCG Oral Tablet (Lanoxin)Jasmintio ns:Chronic systolic heart failure (HCC),Coronary artery disease [...] a day. 180 Tablet 3 01/10/2024 Active OneTouch Verio w/Device Kit Use up to 4 times a day E11.9 1 Kit 02/15/2024 Active Benzonatate 100 MG Oral Capsule (Tessalon Perles)Indications :Malignant neoplasm of lower third of esophagus (HCC) Take 1 Capsule by mouth 3 times a day as needed for Cough. 42 Capsule 02/21/2024 Active documented as of this encounter (statuses [...] mRNA, LNP-s, No Pre serve, 2-Dose Series (Linebacker) 07/23/2021,11/14/2020,10/24/2020 COVID-19, MRNA-LNP, 23-24, P F, 30 [...] Care Team (Late st Contact Info) Description 03/01/2024 12:30 PM EDT Office Visit [facility] 200 [facility] [place] [phone] Marquez Kolb MD 200 [facility] [place] [address] 04/05/2024 1:00 PM EDT Office Visit [facility] [address] [place] [phone] Jason West MD [address] [place], [place] [phone] 05/15/2024 10:45 AM EDT Imaging Radiology [address] 132 [facility] [place] [id number] Health Maintenance Due Date Last Done Comments Hepatitis C Screening 1963 COVID-19 Vaccine (2022- season) 2023 05/26/2023, 05/26/2022, 07/23/2021, Additional history exists Depression Monitoring 12/03/2023 12/02/2022 DIG LEVEL FOR MEDICATION MONITORING YEARLY 03/08/2024 03/08/2023, 10/02/2022, 07/29/2021 Influenza Vaccine (FLU shot) (#1) 2024 05/26/2023, 05/22/2022, 04/30/2021, Additional history exists HbA1c 06/18/2024 12/17/2023, 0801/2023, 10/02/2022, Additional history exists GFR 08/21/2024 02/19/2024, 01/30, 02/05/2024, Additional history exists Diabetic Eye Exam 11/01/2024 11/02/2023, , 04/07/2019, Additional history exists Diabetic Foot Exam 11/01/2024 11/02/2023, 0 03/17/2021, 12/27/2019, Additional history exists Albumin/Creatinine Ratio 02/18/2025 024, 10/02/2022, 08/28/2021, Additional history exists CKD HGB USE SMARTSET 02429 02/18/202502/18, 02/19/2024, 02/12/2024, Additional history exists CKD PHOS USE SMARTSET 87143 02/18/2025 07, 10/02/2022, 03/17/2021, Additional history exists DXA Scan [...] filedocumented as of this encounter Care Teams Help Desk Intern Relationship Specialty Start Date End Date Jason West MD [address] [place] [address] PCP - General 02/06/03 documented as of this encounter
--- OUTSIDE RECORDS SUMMARY | 2024-02-23 02:42 | External Medical Summary | Summary of Care ---
Author Name Unknown Organization [facility] Address [address] [place] [address] Phone [phone] Care Team Providers Care Tower Switch Operator Name Role Phone Jason West MD Primary Care Provider +1- [phone] Reason for Visit * Reason Comments Outpatient Testing Encounter Details Date Type Department Care Team (Late st Contact Info) Description 02/21/2024 9:20 AM EDT Laboratory Laboratory [facility] [address] [place] [phone] [place], [address] Scen[address] [place] [address] Arrived Allergies Active Allergy Reactions Criticality Noted Date Comments Hydroxyzine Hcl 05/12/2012 halluzinating Cetirizine & Related 02/11/1999 HALLUCINATIONS documented as of this encounter (statuses as of 02/21/2024) Medications Medication Sig Dispensed Refills Start Date End Date Status MULTIVITAMIN/ATTORNEY RECRUITER AL FORMULA TABS OR 1 TABLET DAILY 0 0 12/02/2001 Active SYSTANE PRESERVATIVE FREE 0.4-0.3 % OP SOLNIndications:Ot her anterior corneal dystrophies 1 gtt OU q2h WA 1 box 6 12/03/2008 Active CALCIUM 5323-3217 MG-UNIT PO CHEW Take 1 Tablet by [...] 81 MG TBECIndications:Co ronary artery disease involving [place] coronary artery of [place] heart without angina pectoris Take 1 Tab by mouth daily. 30 Tab 11 07/17/2019 Active Loratadine 10 MG Oral Capsule Take 1 Capsule by mouth in the morning. Active Magnesium 400 MG Capsule Take 1 by mouth daily. 30 Cap 11 01/11/2020 Active acetaminophen (TYLENOL) 325 MG Tablet 2 Tablets. 04/13/2020 Active Nitroglycerin 0.4 MG Sublingual Tablet Sublingual (Nitrostat)Indicat ions:Coronary artery disease involving [place] coronary artery of [place] heart without angina pectoris,Old [place] (myocardial infarction) Place 1 Tablet under the [...] Oral Tablet (Lipitor)Indicatio ns:Coronary artery disease involving [place] coronary artery of [place] heart without angina pectoris,Dyslipide mona TAKE 1 [...] systolic heart failure (HCC),Coronary artery disease involving [place] coronary artery of [place] heart without angina pectoris Take 1 Tablet [...] single episode, in full remission 12/07/2018 Old [place] (myocardial infarction) 03/31/2018 Heart failure, systolic, due to CAD 03/31/2018 Lymphedema of both lower extremities 03/31/2018 Dyslipidemia 02/18/2018 Coronary artery disease invo lving [place] coronary artery of [place] heart without angina pectoris 12/10/2017 PAF (paroxysmal [...] mRNA, LNP-s, No Pre serve, 2-Dose Series (ParasitX) 07/23/2021,11/14/2020,10/24/2020 COVID-19, MRNA-LNP, 23-24, P F, 30 MCG/0.3 mL, 12 YRS AND ABOVE, IM (CytoSolv-Comirnaty) 05/26/2023 Covid-19, Mrna, Lnp-s, Pf, B ivalent, [...] 03/01/2024 12:30 PM EDT [facility] [address] [facility] [place] [phone] Marquez Kolb MD 200 [facility] [place] [address] 04/05/2024 1:00 PM EDT Office Visit [facility] [address] [place] [facility] [place] [phone] Jason West MD [address], [place] [phone] 05/15/2024 10:45 AM EDT Imaging Radiology [facility] 132 [facility] [place] [address] Health Maintenance Due Date Last Done Comments [...] Additional history exists CKD HGB USE SMARTSET 11971 02/18/202502/18, 02/19/2024, 02/12/2024, Additional history exists CKD PHOS USE SMARTSET 52699 02/18/2025 07/2 , 10/02/2022, 03/17/2021, Additional history [...] filedocumented as of this encounter Care Teams Tower Switch Operator Relationship Specialty Start Date End Date Jason West MD [address] [place] [address] PCP - General 02/06/03 documented as of this encounter
--- OUTSIDE RECORDS SUMMARY | 2024-02-23 02:42 | External Medical Summary | Summary of Care ---
Author Name Unknown Organization [facility] Address [address] [facility] [address] Phone [phone] Care Team Providers Care County Program Technician Name Role Phone Jason West MD Primary Care Provider +1- [phone] Reason for Visit * Reason Onset Date Comments Test Results Lab 02/19/2024 Encounter Details Date Type Department Care Team (Late st Contact Info) Description 02/19/2024 Telephone Hematology/Oncology Korina Jeny [place] 200 [facility] [place] [phone] Pete Iqbal MD 200 [place] [address] Test Results Lab Allergies Active Allergy Reactions Criticality Noted Date Comments Hydroxyzine Hcl 05/12/2012 halluzinating Cetirizine & Related 02/11/1999 HALLUCINATIONS documented as of this encounter (statuses as of 02/19/2024) Medications Medication Sig Dispensed Refills Start Date End Date Status MULTIVITAMIN/PLYWOOD MATCHER AL FORMULA TABS OR 1 TABLET DAILY 0 0 12/02/2001 Active SYSTANE PRESERVATIVE FREE 0.4-0.3 % OP SOLNIndications:Ot her anterior corneal dystrophies 1 gtt OU q2h WA 1 box 6 12/03/2008 Active CALCIUM 3560-2603 MG-UNIT PO CHEW Take 1 Tablet by [...] 81 MG TBECIndications:Co ronary artery disease involving [place] coronary artery of [place] heart without angina pectoris Take 1 [...] Tablet Sublingual (Nitrostat)Indicat ions:Coronary artery disease involving [place] coronary artery of [place] heart without angina pectoris,[place] (myocardial infarction) [...] Oral Tablet (Lipitor)Indicatio ns:Coronary artery disease involving [place] coronary artery of [place] heart without angina pectoris,Dyslipide mona TAKE 1 TABLET DAILY IN THE MORNING 90 Tablet 3 05/27/2023 Active Insulin Glargine Solostar 100 UNIT/ML Subcutaneous Solution Pen-injector (Lantus SoloStar)Indicatio ns:DM type 2 causing renal disease, 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) INJECT 20 UNITS SUBCUTANEOUSLY TWICE DAILY 30 mL 2 07/08/2023 Active Digoxin 125 MCG Oral Tablet (Lanoxin)Indicatio ns:Chronic systolic heart failure (HCC),Coronary artery disease involving [place] coronary artery of [place] heart without angina pectoris Take 1 [...] a day. 180 Tablet 3 01/10/2024 Active Akoha Verio w/Device Kit Use up to 4 times a day E11.9 1 Kit 02/15/2024 Active documented as of this encounter (statuses as of 02/19/2024) Active Problems Problem Noted Date Diagnosed Date [...] Dyslipidemia 02/18/2018 Coronary artery disease invo lving [place] coronary artery of [place] heart without angina pectoris 12/10/2017 PAF (paroxysmal atrial fibrillation) 12/10/2017 Type 2 diabetes mellitus wit h hemoglobin A1c goal of less than 8.0% 09/08/2013 Overview: ICD-10 update of inactive term DJD, CERVICAL SPINE 04/12/2002 GENERAL OSTEOARTHROSIS documented as of this encounter (statuses as of 02/19/2024) Resolved Problems Problem Noted Date Diagnosed Date [...] as of this encounter (statuses as of 02/19/2024) Immunizations Name Administration Dates Next Due COVID-19 mRNA, LNP-s, No Pre serve, 2-Dose Series (Thinkr) 07/23/2021,11/14/2020,10/24/2020 COVID-19, MRNA-LNP, 23-24, P F, 30 MCG/0.3 mL, 12 YRS AND ABOVE, IM (Tablus-Comirnat) 05/26/2023 Covid-19, Mrna, Lnp-s, Pf, B ivalent, [...] encounter Miscellaneous Notes * Telephone Encounter - Pete Iqbal MD - 02/19/2024 10:37 AM EDT I received [place] text from lab regarding low WBC count [...] 10:00 AM EDT Hem/Onc Treatment [facility] [place] [facility] [phone] 03/01/2024 12:30 PM EDT Office Visit Hematology/Oncology [address] [place] [phone] Marquez Kolb MD 200 [facility] [place] [address] 04/05/2024 1:00 PM EDT Office Visit [facility] [address] [facility] [phone] Jason West [facility] [address] [facility] [phone] 05/15/2024 10:45 AM EDT Imaging Radiology [facility], [address] [place] [address] Health Maintenance Due Date Last Done Comments Hepatitis C Screening 1963 COVID-19 Vaccine (2022-24 season) 2023 05/26/2023, 05/26/2022, 07/23/2021, Additional history exists Albumin/Creatinine Ratio 10/03/2023 023, 08/28/2021, 11/18/2020, Additional history exists CKD PHOS USE SMARTSET 47293 10/03/2023 03/0 09/2022, 03/17/2021, 08/18/2019, Additional history exists Depression Monitoring 12/03/2023 12/02/2022 DIG LEVEL FOR MEDICATION MONITORING YEARLY 03/08/2024 03/08/2023, 10/02/2022, 07/29/2021 Influenza Vaccine (FLU shot) (#1) 2024 05/26/2023, 05/22/2022, 04/30/2021, Additional history exists HbA1c 06/18/2024 12/17/2023, 08/0 01/2023, 10/02/2022, Additional history exists GFR 08/21/2024 02/19/2024, 0710/2023, 02/05/2024, Additional history exists Diabetic Eye Exam 11/01/2024 11/02/2023, , 04/07/2019, Additional history exists Diabetic Foot Exam 11/01/2024 11/02/2023, 0 03/17/2021, 12/27/2019, Additional history exists CKD HGB USE SMARTSET 09962 02/18/202502/18, 02/19/2024, 02/12/2024, Additional history exists DXA Scan 03/21/2026 03/21/2019, [...] filedocumented as of this encounter Care Teams County Program Technician Relationship Specialty Start Date End Date Jason West MD [address] [place] [address] PCP - General 02/06/03 documented as of this encounter
--- OUTSIDE RECORDS SUMMARY | 2024-02-23 02:42 | External Medical Summary | Summary of Care ---
Author Name Unknown Organization [facility] Address [address] [place] [address] Phone [phone] Care Team Providers Care Production Cost Estimator Name Role Phone Jason West MD Primary Care Provider [phone]- [phone] Reason for Visit * Reason Onset Date Comments Medication Refill 02/21/2024 Encounter Details Date Type Department Care Team (Late st Contact Info) Description 02/21/2024 Refill Hematology/Oncology Treatment, [place] 200 [place] [address] Marquez Kolb MD 200 [place] [address] Malignant neoplasm of lower third of esophagus (HCC)* Allergies Active Allergy Reactions Criticality Noted Date Comments Hydroxyzine Hcl 05/12/2012 halluzinating Cetirizine & Related 02/11/1999 HALLUCINATIONS documented as of this encounter (statuses as of 02/21/2024) Medications Medication Sig Dispensed Refills Start Date End Date Status MULTIVITAMIN/PROPERTY STAFF ACCOUNTANT AL FORMULA TABS OR 1 TABLET DAILY 0 0 12/02/2001 Active SYSTANE PRESERVATIVE FREE 0.4-0.3 % OP SOLNIndications:Ot her anterior corneal dystrophies 1 gtt OU q2h WA 1 box 6 12/03/2008 Active CALCIUM 5332-6569 MG-UNIT PO CHEW Take 1 Tablet by [...] 81 MG TBECIndications:Co ronary artery disease involving [place] coronary artery of [place] heart without angina pectoris Take 1 Tab by mouth daily. 30 Tab 11 07/17/2019 Active Loratadine 10 MG Oral Capsule Take 1 Capsule by mouth in the morning. Active Magnesium 400 MG Capsule Take 1 by mouth daily. 30 Cap 11 01/11/2020 Active acetaminophen (TYLENOL) 325 MG Tablet 2 Tablets. 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) INJECT 20 UNITS SUBCUTANEOUSLY TWICE DAILY 30 mL 2 07/08/2023 Active Digoxin 125 MCG Oral Tablet (Lanoxin)Indicatio ns:Chronic systolic heart failure (HCC),Coronary artery disease involving [place] coronary artery of [place] heart without angina pectoris Take 1 Tablet [...] Dyslipidemia 02/18/2018 Coronary artery disease invo lving [place] coronary artery of [place] heart without angina pectoris 12/10/2017 PAF (paroxysmal [...] 08/18/2019 CHF (congestive heart failure) 12/07/2018 12/30/2018 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 She is nervous to take anything OTC for this as she doesn't know what is ok to take with her chemotherapy. Dr Kolb: could we try tessalon? Patient requesting rx be sent to [facility]. documented in this encounter Plan of Treatment Upcoming Encounters Date Type Department Care Team (Late st Contact Info) Description 03/01/2024 12:30 PM EDT Office Visit Hematology/Oncology [facility] 200 [facility] [place] [address] Marquez Kolb MD 200 [facility] [place] [address] 04/05/2024 1:00 PM EDT [facility] [address] [facility] [phone] Jason West MD [address] [facility] [place] [address] 05/15/2024 10:45 AM EDT Imaging Radiology [address] [place] [address] Health Maintenance Due Date Last Done Comments [...] Additional history exists CKD HGB USE SMARTSET 24756 02/18/202502/18, 02/19/2024, 02/12/2024, Additional history exists CKD PHOS USE SMARTSET 55112 02/18/2025 072 , 10/02/2022, 03/17/2021, Additional history exists DXA [...] esophagus documented in this encounter Care Teams Production Cost Estimator Relationship Specialty Start Date End Date Jason West MD [address] [place] [address] PCP - General 02/06/03 documented as of this encounter
--- OUTSIDE RECORDS SUMMARY | 2024-02-23 02:42 | External Medical Summary | Summary of Care ---
Author Name Unknown Organization [facility] Address [address] [facility] [address] Phone [phone] Care Team Providers Care Cloth Printing Back Tender Name Role Phone Jason West MD Primary Care Provider +1- [phone] Reason for Visit * Reason Comments Outpatient Testing Encounter Details Date Type Department Care Team (Late st Contact Info) Description 02/19/2024 10:30 AM EDT Laboratory Laboratory, [facility] [address] [facility] [place] [address] [place] [facility] 132 [facility] [place] [id number] Type 2 diabetes mellitus with stage 3a chronic kidney disease (HCC); [employer] Other*[id number]; GE junction carcinoma (HCC) Allergies Active Allergy Reactions Criticality Noted Date Comments Hydroxyzine Hcl 05/12/2012 halluzinating Cetirizine & Related 02/11/1999 HALLUCINATIONS documented as of this encounter (statuses as of 02/19/2024) Medications Medication Sig Dispensed Refills Start Date End Date Status MULTIVITAMIN/INTERNET PROGRAMMER AL FORMULA TABS OR 1 TABLET DAILY 0 0 12/02/2001 Active SYSTANE PRESERVATIVE FREE 0.4-0.3 % OP SOLNIndications:Ot her anterior corneal dystrophies 1 gtt OU q2h WA 1 box 6 12/03/2008 Active CALCIUM 5095-1944 MG-UNIT PO CHEW Take 1 Tablet by [...] 81 MG TBECIndications:Co ronary artery disease involving [place] coronary artery of [place] heart without angina pectoris Take 1 Tab by mouth daily. 30 Tab 11 07/17/2019 Active Loratadine 10 MG Oral Capsule Take 1 Capsule by mouth in the morning. Active Magnesium 400 MG Capsule Take 1 by mouth daily. 30 Cap 11 01/11/2020 Active acetaminophen (TYLENOL) 325 MG Tablet 2 Tablets. 04/13/2020 Active Nitroglycerin 0.4 MG Sublingual Tablet Sublingual (Nitrostat)Indicat ions:Coronary artery disease involving [place] coronary artery of [place] heart without angina pectoris,Old [place] (myocardial infarction) [...] Oral Tablet (Lipitor)Indicatio ns:Coronary artery disease involving [place] coronary artery of [place] heart without angina pectoris,Dyslipide mona TAKE 1 TABLET DAILY IN THE MORNING 90 Tablet 3 05/27/2023 Active Insulin Glargine Solostar 100 UNIT/ML Subcutaneous Solution Pen-injector (Lantus SoloStar)Indicatio ns:DM type 2 causing renal disease, 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) INJECT 20 UNITS SUBCUTANEOUSLY TWICE DAILY 30 mL 2 07/08/2023 Active Digoxin 125 MCG Oral Tablet (Lanoxin)Indicatio ns:Chronic systolic heart failure (HCC),Coronary artery disease involving [place] coronary artery of [place] heart without angina pectoris Take 1 Tablet [...] Dyslipidemia 02/18/2018 Coronary artery disease invo lving [place] coronary artery of [place] heart without angina pectoris 12/10/2017 PAF (paroxysmal [...] mRNA, LNP-s, No Pre serve, 2-Dose Series ([employer]) 07/23/2021,11/14/2020,10/24/2020 COVID-19, MRNA-LNP, 23-24, P F, 30 MCG/0.3 mL, 12 YRS AND ABOVE, IM (Ecoviate-Comirnaty) 05/26/2023 Covid-19, Mrna, Lnp-s, Pf, B ivalent, [...] 10:00 AM EDT Hem/Onc Treatment Hematology/Oncology Treatment, [place] 200 [place] [phone] 03/01/2024 12:30 PM EDT Office Visit Hematology/Oncology [facility] 200 [facility] [place] [phone] Marquez Kolb MD [facility] [address] 04/05/2024 1:00 PM EDT Office Visit [facility] [address] [place] [address] Jason West MD [address] [place] [address] 05/15/2024 10:45 AM EDT Imaging Radiology [facility] 1st [facility], [place] 132 [facility] [place] [address] Pending Results Name Type Priority Associated Diagnoses Date /Time ALBUMIN / CREATININE RATIO, URINE Lab Routine Type 2 diabetes mellitus with stage 3a chronic kidney disease (HCC) 02/19/2024 9:47 AM EDT PHOSPHORUS Lab Routine Type 2 diabetes mellitus with stage 3a chronic kidney disease (HCC) 02/19/2024 9:40 AM EDT MYCODE SUBSEQUENT ADULT Lab Routine [employer] Other*[id number] 02/19/2024 9:40 AM EDT CBC WITH WBC DIFFERENTIAL Lab STAT GE junction carcinoma (HCC) 02/19/2024 9:40 AM EDT COMPREHENSIVE METABOLIC PANEL Lab STAT GE junction carcinoma (HCC) 02/19/2024 9:40 AM EDT MYCODE SST1 Lab Routine [employer] Other*[id number] 02/19/2024 9:40 AM EDT MYCODE SST2 Lab Routine [employer] Other*[id number] 02/19/2024 9:40 AM EDT CBC Lab STAT GE junction carcinoma (HCC) 02/19/2024 9:40 AM EDT DIFFERENTIAL, AUTOMATED Lab STAT GE junction carcinoma (HCC) 02/19/2024 9:40 AM EDT Scheduled Orders Name Type Priority Associated Diagnoses Orde r Schedule ALBUMIN / CREATININE RATIO, URINE Lab Routine Type 2 diabetes mellitus with stage 3a chronic kidney disease (HCC) Expected: 02/19/2024, Expires: 02/18/2025 Health Maintenance Due Date Last Done Comments Hepatitis C Screening 1963 COVID-19 Vaccine ( season) 2023 05/26/2023, 05/26/2022, 07/23/2021, Additional history exists Albumin/Creatinine Ratio 10/03/202310/02/2 023, 08/28/2021, 11/18/2020, Additional history exists CKD PHOS USE SMARTSET 11734 10/03/2023 03/0 09/2022, 03/17/2021, 08/18/2019, Additional history exists Depression Monitoring 12/03/2023 12/02/2022 DIG LEVEL FOR MEDICATION MONITORING YEARLY 03/08/2024 03/08/2023, 10/02/2022, 07/29/2021 Influenza Vaccine (FLU shot) (#1) 2024 05/26/2023, 05/22/2022, 04/30/2021, Additional history exists HbA1c 06/18/2024 12/17/2023, 08/0 01/2023, 10/02/2022, Additional history exists GFR 08/14/2024 02/12/2024, 07/0 01/2024, 02/01/2024, Additional history exists Diabetic Eye Exam 11/01/2024 11/02/2023, , 04/07/2019, Additional history exists Diabetic Foot Exam 11/01/2024 11/02/2023, 0 03/17/2021, 12/27/2019, Additional history exists CKD HGB USE SMARTSET 98886 02/11/202502/11, 02/12/2024, 02/05/2024, Additional history exists DXA Scan 03/21/2026 03/21/2019, [...] Diagnoses Diagnosis Type 2 diabetes mellitus with stage 3a chronic kidney disease (HCC) [employer] Other*[id number] 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
--- OUTSIDE RECORDS SUMMARY | 2024-02-23 02:42 | External Medical Summary | Summary of Care ---
Author Name Unknown Organization [facility] Address [address] [place] [place] [facility] [place] [address] Phone [phone] Care Team Providers Care Office Manager Receptionist Name Role Phone Jason West MD Primary Care Provider +1- [phone] Reason for Visit * Reason Comments Outpatient Testing Encounter Details Date Type Department Care Team (Late st Contact Info) Description 02/21/2024 9:20 AM EDT Laboratory Laboratory [facility] [address] [place] [phone] [place], [facility] Scenery [address] [place] [address] Arrived Allergies Active Allergy Reactions Criticality Noted Date Comments Hydroxyzine Hcl 05/12/2012 halluzinating Cetirizine & Related 02/11/1999 HALLUCINATIONS documented as of this encounter (statuses as of 02/21/2024) Medications Medication Sig Dispensed Refills Start Date End Date Status MULTIVITAMIN/MOLDER CLOSED MOLDS AL FORMULA TABS OR 1 TABLET DAILY 0 0 12/02/2001 Active SYSTANE PRESERVATIVE FREE 0.4-0.3 % OP SOLNIndications:Ot her anterior corneal dystrophies 1 gtt OU q2h WA 1 box 6 12/03/2008 Active CALCIUM 6552-6311 MG-UNIT PO CHEW Take 1 Tablet by [...] disease, not at goal ([facility]) use to inject lantus twice per [...] disease, not at goal ([facility]) INJECT 20 UNITS SUBCUTANEOUSLY TWICE DAILY [...] mRNA, LNP-s, No Pre serve, 2-Dose Series ([employer]) 07/23/2021,11/14/2020,10/24/2020 COVID-19, MRNA-LNP, 23-24, P F, 30 MCG/0.3 mL, 12 YRS AND ABOVE, IM (ClickMedix-Comirnaty) 05/26/2023 Covid-19, Mrna, Lnp-s, Pf, B ivalent, [...] 03/01/2024 12:30 PM EDT [facility] [place] [phone] Marquez Kolb MD 200 [facility] [place] [address] 04/05/2024 1:00 PM EDT Office Visit [facility] [address] [place] [phone] Jason West MD [address] [place], [place] [phone] 05/15/2024 10:45 AM EDT Imaging Radiology [facility] 1st [facility] 132 [facility] [place] [address] Health Maintenance Due [...] Additional history exists CKD HGB USE SMARTSET 73439 02/18/202502/18, 02/19/2024, 02/12/2024, Additional history exists CKD PHOS USE SMARTSET 11995 02/18/2025 07/2 , 10/02/2022, 03/17/2021, Additional history [...] filedocumented as of this encounter Care Teams Office Manager Receptionist Relationship Specialty Start Date End Date Jason West MD [address] [place] [address] PCP - General 02/06/03 documented as of this encounter
--- OUTSIDE RECORDS SUMMARY | 2024-02-23 02:42 | External Medical Summary | Summary of Care ---
Author Name Unknown Organization [facility] Address [address] [facility] [address] Phone [phone] Care Team Providers Care Water And Fire Technician Name Role Phone Jason West MD Primary Care Provider +1- [phone] Reason for Visit * Reason Onset Date Comments Test Results Lab 02/19/2024 Encounter Details Date Type Department Care Team (Late st Contact Info) Description 02/19/2024 Telephone Hematology/Oncology [place] 200 [facility] [place] [phone] Pete Iqbal MD 200 [facility] [address] Test Results Lab Allergies Active Allergy Reactions Criticality Noted Date Comments Hydroxyzine Hcl 05/12/2012 halluzinating Cetirizine & Related 02/11/1999 HALLUCINATIONS documented as of this encounter (statuses as of 02/21/2024) Medications Medication Sig Dispensed Refills Start Date End Date Status MULTIVITAMIN/CROSSING FLAGMAN AL FORMULA TABS OR 1 TABLET DAILY 0 0 12/02/2001 Active SYSTANE PRESERVATIVE FREE 0.4-0.3 % OP SOLNIndications:Ot her anterior corneal dystrophies 1 gtt OU q2h WA 1 box 6 12/03/2008 Active CALCIUM 6231-5357 MG-UNIT PO CHEW Take 1 Tablet by [...] 81 MG TBECIndications:Co ronary artery disease involving [place] coronary artery of [place] heart without angina pectoris Take 1 Tab by mouth daily. 30 Tab 11 07/17/2019 Active Loratadine 10 MG Oral Capsule Take 1 Capsule by mouth in the morning. Active Magnesium 400 MG Capsule Take 1 by mouth daily. 30 Cap 11 01/11/2020 Active acetaminophen (TYLENOL) 325 MG Tablet 2 Tablets. 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 180 Tablet 3 01/10/2024 Active [employer] Verio w/Device Kit Use up to 4 [...] Dyslipidemia 02/18/2018 Coronary artery disease invo lving [place] coronary artery of [place] heart without angina pectoris 12/10/2017 PAF (paroxysmal [...] syndrome 12/07/2018 019 Systolic heart failure michela quinonse to hypertension 12/07/2018 12/30/2018 Morbid obesity with [...] mRNA, LNP-s, No Pre serve, 2-Dose Series ([employer]) 07/23/2021,11/14/2020,10/24/2020 COVID-19, MRNA-LNP, 23-24, P F, 30 MCG/0.3 mL, 12 YRS AND ABOVE, IM ([employer]) 05/26/2023 Covid-19, Mrna, Lnp-s, [...] - 02/19/2024 10:37 AM EDT I received [place] text from lab regarding low WBC count [...] 10:00 AM EDT Hem/Onc Treatment Hematology/Oncology Treatment, [place] 200 [place] [address] 03/01/2024 12:30 PM EDT Office Visit Hematology/Oncology [facility] 200 [facility] [place] [address] Marquez Kolb MD 200 [facility] [address] 04/05/2024 1:00 PM EDT Office Visit [facility] [address] [place] [address] Jason West MD [address] [place] [address] 05/15/2024 10:45 AM EDT Imaging Radiology [facility] 1st [facility], [place] 132 [facility] [place] [address] Health Maintenance Due Date Last Done Comments [...] Additional history exists CKD HGB USE SMARTSET 94100 02/18/202502/18, 02/19/2024, 02/12/2024, Additional history exists CKD PHOS USE SMARTSET 95024 02/18/2025 07/2 , 10/02/2022, 03/17/2021, Additional history [...] filedocumented as of this encounter Care Teams Water And Fire Technician Relationship Specialty Start Date End Date Jason West MD [address] [place] [address] PCP - General 02/06/03 documented as of this encounter
--- OUTSIDE RECORDS SUMMARY | 2024-02-23 02:42 | External Medical Summary | Summary of Care ---
Author Name Unknown Organization [facility] Address [address] [facility] [address] Phone [phone] Care Team Providers Care Instrumentation Fitter Name Role Phone Jason West MD Primary Care Provider +1- [phone] Reason for Visit * Reason Onset Date Comments Test Results Lab 02/19/2024 Encounter Details Date Type Department Care Team (Late st Contact Info) Description 02/19/2024 Telephone Hematology/Oncology [place]y [place] [address] [facility] [place] [phone] Pete Iqbal MD 200 [place] [address] Test Results Lab Allergies Active Allergy Reactions Criticality Noted Date Comments Hydroxyzine Hcl 05/12/2012 halluzinating Cetirizine & Related 02/11/1999 HALLUCINATIONS documented as of this encounter (statuses as of 02/21/2024) Medications Medication Sig Dispensed Refills Start Date End Date Status MULTIVITAMIN/URINALYSIS TECHNICIAN AL FORMULA TABS OR 1 TABLET DAILY 0 0 12/02/2001 Active SYSTANE PRESERVATIVE FREE 0.4-0.3 % OP SOLNIndications:Ot her anterior corneal dystrophies 1 gtt OU q2h WA 1 box 6 12/03/2008 Active CALCIUM 4900-6151 MG-UNIT PO CHEW Take 1 Tablet by [...] 81 MG TBECIndications:Co ronary artery disease involving [place] coronary artery of [place] heart without angina pectoris Take 1 Tab by mouth daily. 30 Tab 11 07/17/2019 Active Loratadine 10 MG Oral Capsule Take 1 Capsule by mouth in the morning. Active Magnesium 400 MG Capsule Take 1 by mouth daily. 30 Cap 11 01/11/2020 Active acetaminophen (TYLENOL) 325 MG Tablet 2 Tablets. 04/13/2020 Active Nitroglycerin 0.4 MG Sublingual Tablet Sublingual (Nitrostat)Indicat ions:Coronary artery disease involving [place]am[place] coronary artery of suquam[place] heart without angina pectoris,Old [place] (myocardial infarction) Place 1 Tablet under the tongue every 5 minutes as needed for Pain, Chest. 25 Tablet 5 09/03/2022 Active Insulin Pen Needle 32G X 5 MMIndications:DM type 2 causing renal disease, not at goal ([facility]) use to inject lantus twice per day 200 Each 3 03/26/2023 Active OneTouch Verio In Vitro Strip (Glucose Blood)Indications: DM type 2 causing renal disease ([facility]) Check blood sugars one time daily. Dx E11.9 300 Strip 2 05/03/2023 Active Atorvastatin Calcium 40 MG Oral Tablet (Lipitor)Indicatio ns:Coronary artery disease involving [place]quam[place] coronary artery of suquamish heart without angina pectoris,Dyslipide mona TAKE 1 TABLET DAILY IN THE MORNING 90 Tablet 3 05/27/2023 Active Insulin Glargine Solostar 100 UNIT/ML Subcutaneous Solution Pen-injector (Lantus SoloStar)Indicatio ns:DM type 2 causing renal disease, 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) INJECT 20 UNITS SUBCUTANEOUSLY TWICE DAILY 30 mL 2 07/08/2023 Active Digoxin 125 MCG Oral Tablet (Lanoxin)Indicatio ns:Chronic systolic heart failure (HCC),Coronary artery disease involving [place] coronary artery of suqu[place] heart without angina pectoris Take 1 Tablet [...] a day. 180 Tablet 3 01/10/2024 Active Liquid Bronze Verio w/Device Kit Use up to 4 [...] Dyslipidemia 02/18/2018 Coronary artery disease invo lving suquam[place] coronary artery of suquamish heart without angina pectoris 12/10/2017 PAF (paroxysmal [...] mRNA, LNP-s, No Pre serve, 2-Dose Series ([place]) 07/23/2021,11/14/2020,10/24/2020 COVID-19, MRNA-LNP, 23-24, P F, 30 MCG/0.3 mL, 12 YRS AND ABOVE, IM ([facility]) 05/26/2023 Covid-19, Mrna, Lnp-s, Pf, B [...] encounter Miscellaneous Notes * Addendum Note - Nimco Beal RN - 02/21/2024 10:56 AM EDTAddended by: NIMCO BEAL on: 02/21/2024 10:56 AM Modules accepted: Orders * Telephone Encounter - Nimco Beal RN - 02/21/2024 10:19 AM EDT Patient presented- does not want repeat labs. Would be agreeable to labs if this could be done withIV start, but does not want to wait for results. Reviewed with Dr Kolb- delay treatment to Wednesday. Patient agreeable, would like to do labs in [place]. She does not remember what time she is scheduled for radiation either of these days. Spoke to rad/onc, she is scheduled at 9:05 and Wednesday Scheduling: - please schedule lab appt 02/23 in [place] around 10am "CBCd, CMP" - please schedule 3 hour appt Saturday 02/24 "C1D29 carbo/ taxol" at 10am Sent staff message with who can be moved to accommodate. * Telephone Encounter - Saba Sevilla OSA - 02/21/2024 9:21 AM EDT Pt added to the schedule * Telephone Encounter - Nimco Beal RN - 02/21/2024 8:10 AM EDT Attempted to call patient. Left message asking her to come at 9am this morning instead of 10am for repeat lab work. Scheduling: please add lab appt today at 9am "CBCd, CMP". Left message for patient regarding this. Thanks! * Telephone Encounter - Nimco Beal RN - 02/21/2024 7:42 AM EDT Patient is scheduled for chemotherapy today at 10am. * Telephone Encounter - Pete Iqbal MD - 02/19/2024 10:37 AM EDT I received [place] text from lab regarding low WBC count [...] 03/01/2024 12:30 PM EDT Office Visit Hematology/Oncology [place] [address] [place] [phone] Marquez Kolb MD [address] [place] [address] 04/05/2024 1:00 PM EDT Office Visit [facility] [place] [address] [place] [facility] [place] [phone] Jason West MD [address] [place] [address] 05/15/2024 10:45 AM EDT Imaging Radiology [facility], [place] [address] [facility] [place] [address] Health Maintenance Due Date Last Done Comments Hepatitis C Screening 1963 COVID-19 Vaccine ( season) 2023 05/26/2023, 05/26/2022, 07/23/2021, Additional history exists Depression Monitoring 12/03/2023 12/02/2022 DIG LEVEL FOR MEDICATION MONITORING YEARLY 03/08/2024 03/08/2023, 10/02/2022, 07/29/2021 Influenza Vaccine (FLU shot) (#1) 2024 05/26/2023, 05/22/2022, 04/30/2021, Additional history exists HbA1c 06/18/2024 12/17/2023, 08/0 01/2023, 10/02/2022, Additional history exists GFR 08/21/2024 02/19/2024, 07/1 10/2023, 02/05/2024, Additional history exists Diabetic Eye Exam 11/01/2024 11/02/2023, , 04/07/2019, Additional history exists Diabetic Foot Exam 11/01/2024 11/02/2023, 0 03/17/2021, 12/27/2019, Additional history exists Albumin/Creatinine Ratio 02/18/2025 07/2 024, 10/02/2022, 08/28/2021, Additional history exists CKD HGB USE SMARTSET 55611 02/18/202502/18, 02/19/2024, 02/12/2024, Additional history exists CKD PHOS USE SMARTSET 79033 02/18/2025 07/, 10/02/2022, 03/17/2021, Additional history exists DXA Scan [...] filedocumented as of this encounter Care Teams Instrumentation Fitter Relationship Specialty Start Date End Date Jason West MD [address] [place] [address] PCP - General 02/06/03 documented as of this encounter
--- OUTSIDE RECORDS SUMMARY | 2024-02-23 02:42 | External Medical Summary | Summary of Care ---
Author Name Unknown Organization [facility] Address [address] [facility] [address] Phone [phone] Care Team Providers Care Hvac Designer Name Role Phone Jason West MD Primary Care Provider [phone]- [phone] Reason for Visit * Reason Onset Date Comments Test Results Lab 02/19/2024 Encounter Details Date Type Department Care Team (Late st Contact Info) Description 02/19/2024 Telephone Hematology/Oncology Korina Jeny [place] 200 [facility] [place] [phone] Pete Iqbal MD 200 [place] [address] Test Results Lab Allergies Active Allergy Reactions Criticality Noted Date Comments Hydroxyzine Hcl 05/12/2012 halluzinating Cetirizine & Related 02/11/1999 HALLUCINATIONS documented as of this encounter (statuses as of 02/21/2024) Medications Medication Sig Dispensed Refills Start Date End Date Status MULTIVITAMIN/HUMAN SERVICES CASE MANAGER AL FORMULA TABS OR 1 TABLET DAILY 0 0 12/02/2001 Active SYSTANE PRESERVATIVE FREE 0.4-0.3 % OP SOLNIndications:Ot her anterior corneal dystrophies 1 gtt OU q2h WA 1 box 6 12/03/2008 Active CALCIUM 9016-9681 MG-UNIT PO CHEW Take 1 Tablet by [...] 81 MG TBECIndications:Co ronary artery disease involving [place] coronary artery of [place] heart without angina pectoris Take 1 Tab by mouth daily. 30 Tab 11 07/17/2019 Active Loratadine 10 MG Oral Capsule Take 1 Capsule by mouth in the morning. Active Magnesium 400 MG Capsule Take 1 by mouth daily. 30 Cap 11 01/11/2020 Active acetaminophen (TYLENOL) 325 MG Tablet 2 Tablets. 04/13/2020 Active Nitroglycerin 0.4 MG Sublingual Tablet Sublingual (Nitrostat)Indicat ions:Coronary artery disease involving [place] coronary artery of [place] heart without angina pectoris,Old [place] (myocardial infarction) Place 1 Tablet under the tongue every 5 minutes as needed for Pain, Chest. 25 Tablet 5 09/03/2022 Active Insulin Pen Needle 32G X 5 MMIndications:DM type 2 causing renal disease, not at goal ([facility]) use to inject lantus twice per day 200 Each 3 03/26/2023 Active OneTouch Verio In Vitro Strip (Glucose Blood)Indications: DM type 2 causing renal disease ([facility]) Check blood sugars one time daily. Dx E11.9 300 Strip 2 05/03/2023 Active Atorvastatin Calcium 40 MG Oral Tablet (Lipitor)Indicatio ns:Coronary artery disease involving [place] coronary artery of [place] heart without angina pectoris,Dyslipide mona TAKE 1 TABLET DAILY IN THE MORNING 90 Tablet 3 05/27/2023 Active Insulin Glargine Solostar 100 UNIT/ML Subcutaneous Solution Pen-injector (Lantus SoloStar)Indicatio ns:DM type 2 causing renal disease, 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) INJECT 20 UNITS SUBCUTANEOUSLY TWICE DAILY 30 mL 2 07/08/2023 Active Digoxin 125 MCG Oral Tablet (Lanoxin)Indicatio ns:Chronic systolic heart failure (HCC),Coronary artery disease involving [place] coronary artery of [place] heart without angina pectoris Take 1 Tablet [...] a day. 180 Tablet 3 01/10/2024 Active [employer] Verio w/Device Kit Use up to 4 [...] Dyslipidemia 02/18/2018 Coronary artery disease invo lving northern [place] coronary artery of [place] heart without angina pectoris 12/10/2017 PAF (paroxysmal [...] mRNA, LNP-s, No Pre serve, 2-Dose Series ([place]) 07/23/2021,11/14/2020,10/24/2020 COVID-19, MRNA-LNP, 23-24, P F, 30 MCG/0.3 mL, 12 YRS AND ABOVE, IM ([facility]) 05/26/2023 Covid-19, Mrna, Lnp-s, [...] - 02/19/2024 10:37 AM EDT I received [place] text from lab regarding low WBC count [...] 10:00 AM EDT Hem/Onc Treatment Hematology/Oncology Treatment, [place] [address] [place] [address] 03/01/2024 12:30 PM EDT Office Visit [facility] [place] 200 [facility] [place], [place] [phone] Marquez Kolb MD 200 [facility] [place] [address] 04/05/2024 1:00 PM EDT Office Visit [facility] [address] [place] [facility] [place] [phone] Jason West MD [address] [place] [facility] [place] [address] 05/15/2024 10:45 AM EDT Imaging Radiology [address], [place] [address] [facility] [place] [address] Health Maintenance Due Date Last Done Comments [...] 03/17/2021, 12/27/2019, Additional history exists Albumin/Creatinine Ratio 02/18/20252 024, 10/02/2022, 08/28/2021, Additional history exists CKD HGB USE SMARTSET 66631 02/18/202502/18, 02/19/2024, 02/12/2024, Additional history exists CKD PHOS USE SMARTSET 66683 02/18/202501/31, 10/02/2022, 03/17/2021, Additional history exists DXA [...] filedocumented as of this encounter Care Teams Hvac Designer Relationship Specialty Start Date End Date Jason West MD [address] [place] [address] PCP - General 02/06/03 documented as of this encounter
--- OUTSIDE RECORDS SUMMARY | 2024-02-23 02:43 | External Medical Summary | Summary of Care ---
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) Encounter for antineoplastic chemotherapy Procedures WA PALONOSETRON HCL WA CARBOPLATIN INJECTION [place] PACLITAXEL INJECTION Marquez Kolb MD 200 [facility] [place] [address] Anc Hem/Onc [address] [place] [address] Referral ID Status Reason Start Date Expiration Date V isits Requested Visits Authorized [id number] Authorized 01/04/2024 07/01/2024 [id number] Encounter Details Date Type Department Care Team (Latest Contact Info) Description 02/14/2024 8:30 AM EDT Hem/Onc Treatment Hematology/Oncolog y Treatment, [address] [place] [address] Jeny, Chair 9 Hem Onc [address] [place] [address] GE junction carcinoma (HCC)*; Encounter for antineoplastic chemotherapy Allergies Active Allergy Reactions Criticality Noted Date Comments Hydroxyzine Hcl 05/12/2012 halluzinating Cetirizine & Related 02/11/1999 HALLUCINATIONS documented as of this encounter (statuses as of 02/14/2024) Medications Medication Sig Dispensed Refills Start Date End Date Status MULTIVITAMIN/SCIENTIFIC PROCESS OPERATOR AL FORMULA TABS OR 1 TABLET DAILY 0 0 12/02/2001 Active SYSTANE PRESERVATIVE FREE 0.4-0.3 % OP SOLNIndications:Ot her anterior corneal dystrophies 1 gtt OU q2h WA 1 box 6 12/03/2008 Active CALCIUM 1460-0748 MG-UNIT PO CHEW Take 1 Tablet by [...] 81 MG TBECIndications:Co ronary artery disease involving napaim[place] coronary artery of napaim[place] heart without angina pectoris Take 1 Tab by mouth daily. 30 Tab 11 07/17/2019 Active Loratadine 10 MG Oral Capsule Take 1 Capsule by mouth in the morning. Active Magnesium 400 MG Capsule Take 1 by mouth daily. 30 Cap 11 01/11/2020 Active acetaminophen (TYLENOL) 325 MG Tablet 2 Tablets. 04/13/2020 Active Nitroglycerin 0.4 MG Sublingual Tablet Sublingual (Nitrostat)Indicat ions:Coronary artery disease involving napaim[place] coronary artery of nap[place] heart without angina pectoris,Old [place] (myocardial infarction) [...] Oral Tablet (Lipitor)Indicatio ns:Coronary artery disease involving [place]aim[place] coronary artery of napaimute heart without angina pectoris,Dyslipide mona TAKE 1 [...] ([facility]),Coronary artery disease involving napaim[place] coronary artery of napaimute heart without angina pectoris Take 1 Tablet [...] a day. 180 Tablet 3 01/10/2024 Active documented as of this encounter (statuses as of 02/14/2024) Active Problems Problem Noted Date Diagnosed Date [...] Dyslipidemia 02/18/2018 Coronary artery disease invo lving napaimute coronary artery of napaimute heart without angina pectoris 12/10/2017 PAF (paroxysmal atrial fibrillation) 12/10/2017 Type 2 diabetes mellitus wit h hemoglobin A1c goal of less than 8.0% 09/08/2013 Overview: ICD-10 update of inactive term DJD, CERVICAL SPINE 04/12/2002 GENERAL OSTEOARTHROSIS documented as of this encounter (statuses as of 02/14/2024) Resolved Problems Problem Noted Date Diagnosed Date [...] as of this encounter (statuses as of 02/14/2024) Immunizations Name Administration Dates Next Due COVID-19 mRNA, LNP-s, No Pre serve, 2-Dose Series ([place]) 07/23/2021,11/14/2020,10/24/2020 COVID-19, MRNA-LNP, 23-24, P F, 30 MCG/0.3 mL, 12 YRS AND ABOVE, [facility] 05/26/2023 Covid-19, Mrna, Lnp-s, [...] Sign Reading Time Taken Comments Blood Pressure 136/68 02/14/2024 9:16 AM EDT Pulse - - Temperature - - Respiratory Rate - - Oxygen Saturation - - Inhaled Oxygen Concentration - - Weight - - Height - - Body Mass Index - - documented in this encounter Nursing Notes * Christie Sotelo RN - 02/14/2024 3:05 PM EDT Pt completed treatment without issues. IV removed. Goals: Pt will remain free from injury. Possible barriers to meeting goals: pt is a high fall risk Stability of the patient: Moderately stable - low risk of patient condition declining or worsening Summary regarding today's goals: Met: Pt Pt remained free from injury during treatment today. Discharged in stable condition. * Christie Sotelo RN - 02/14/2024 10:43 AM EDT Chair 6 Chemotherapy/Immunotherapy agents: CARBOPLATIN and TAXOL Consent for chemotherapy drug treatment complete, dated, and signed? yes, date - 01/04/24 Treatment lab parameters met? Yes Has treatment weight changed > than 10%? No Treatment preauthorized? Yes VITALS Filed Vitals: 02/14/24 0916 BP: 136/68 Urine protein: N/A Patient education completed for treatment? Yes Blood transfusion consent signed and complete? NA Return appointment scheduled? Yes Patient had provider visit today? Yes - Ok to release order and treat per provider VAD accessed; NSS infusing. Safety and Risk for Injury Patient will remain free from injury. Ensure appropriate safety devices are available. Provide and maintain safe environment. Functional Status: Functional status at today's visit: Restricted in physically strenuous activity but ambulatory and able to carry out work on a light orsedentary nature, e.g. light house work, office work The drug name, dose, infusion volume, rate and route of administration, expiration date and time, appearance and physical integrity of the drug and rate set on the pump and sequencing of drug administration (as applicable) were verified by me and second sign-in RN. Patient was assessed for symptoms or adverse side effects during treatment. documented in this encounter Plan of Treatment Upcoming Encounters Date Type Department Care Team (Late st Contact Info) Description 02/19/2024 10:30 AM EDT Laboratory Laboratory, [facility] [address] [facility] [place] [phone] [facility] [address] 03/01/2024 12:30 PM EDT Office Visit Hematology/Oncology [facility] [address] [place] [phone] Marquez Kolb MD [address] [place] [address] 03/08/2024 10:00 AM EDT Cardiac Studies Cardiology, [facility] [address] [facility] [place] [address] [facility] [address] [facility] [place] [address] 04/05/2024 1:00 PM EDT Office Visit [facility] [address] [place] [facility] [place] [address] Jason West MD [address] [facility] [place] [address] 05/15/2024 10:45 AM EDT Imaging Radiology [address], [place] [address] [facility] [place] [address] Health Maintenance Due Date Last Done Comments Hepatitis C Screening 1963 COVID-19 Vaccine ( season) 2023 05/26/2023, 05/26/2022, 07/23/2021, Additional history exists Albumin/Creatinine Ratio 10/03/2023 023, 08/28/2021, 11/18/2020, Additional history exists CKD PHOS USE SMARTSET 90307 10/03/2023 03/0 09/2022, 03/17/2021, 08/18/2019, Additional history [...] Additional history exists CKD HGB USE SMARTSET 87180 02/11/202502/114, 02/12/2024, 02/05/2024, Additional history exists DXA Scan [...] carcinoma (HCC)- Primary Malignant neoplasm of cardia Encounter for antineoplastic chemotherapy documented in this encounter Administered Medications Active Administered Medications - up to 3 most recent administrations Medication Order MAR Action Action Date Dose Rate Site diphenhydrAMINE (Benadryl) inj 50 mg 50 mg, IV Push, ONCE PRN Other, Hypersensitivity Reaction, Starting on Wed02/14/24 at 0905, Until Wed02/15/24 at 0904, For 24 hours EPINEPHrine 1 MG/ML inj 0.3 mg 0.3 mg, Intramuscular, ONCE PRN Other, Hypersensitivity Reaction or Anaphylaxis, Starting on Wed02/14/24 at 0905, Until Wed02/15/24 at 0904, For 24 hours hEParin 100 UNIT/ML Lock Flush inj 500 Units 500 Units (5 mL), IV Lock, PRN Other, IV Flush, Starting on Wed02/14/24 at 0905, Until Wed02/15/24 at 0904, For 24 hours, Do not flush if lock, PICC, or central line not in place; IV infusing or unable to flush. Hydrocortisone Sod Suc (PF) (Solu-Cortef) inj 100 mg 100 mg, IV Push, ONCE PRN Other, Hypersensitivity Reaction, Starting on Wed02/14/24 at 0905, Until Wed02/15/24 at 0904, For 24 hours LORAzepam (Ativan) tab 0.5 mg 0.5 mg, Oral, ONCE PRN Anxiety, Nausea, Starting on Wed02/14/24 at 1015, Until Discontinued NSS infusion Intravenous, at 50 mL/hr, PRN, Starting on Wed02/14/24 at 1015, Until Discontinued, Maintenance line Start Infusion 02/14/2024 9:08 AM EDT 50 mL/hr oxygen GAS Inhalation, OXYGEN, First dose on Wed02/14/24 at 0945, Until Discontinued, Device/Managed by: Low Flow Device, Goal SPO2 (%): 91-95, Starting Device: Nasal Cannula, Initial Flow Rate (LPM): 2, Lowest Support: Nasal Cannula: Flow 0-6 LPM. Titrate up/down by 1 LPM., Higher Support: Non-Rebreather (NRB) Mask: Minimum of 10 LPM. Titrate to maintain bag inflation., Titration Interval: Q2 minutes and as needed., Notify Provider: For sudden DECREASE in resting SPO2 to less than 85% and when escalating delivery device., Wean patient off Oxygen when the oxygen saturation is greater than or equal to 93% sodium chloride 0.9 % flush central line 10 mL 10 mL, IV Push, PRN Other, IV Flush, Starting on Wed02/14/24 at 0905, Until Wed02/15/24 at 0904, For 24 hours, Do not flush if lock, PICC, or central line not in place; IV infusing or unable to flush. Inactive Administered Medications - up to 3 most recent administrations Medication Order MAR Action Action Date Dose Rate Site CARBOplatin (Paraplatin) 198 mg in D5W 250 mL infusion 198 mg (Target AUC = 2), IV Piggyback, at 510 mL/hr Administer over 30 Minutes, PROTECT FROM LIGHT, ONCE, 1 dose, On Wed02/14/24 at 1045 Start Infusion 02/14/2024 11:04 AM EDT 198 mg 510 mL/hr dexAMETHasone (Decadron) tab 12 mg 12 mg, Oral, ONCE, On Wed02/14/24 at 1015, For 1 dose Given 02/14/2024 9:23 AM EDT 12 mg diphenhydrAMINE (Benadryl) inj 25 mg 25 mg, IV Push, ONCE, On Wed02/14/24 at 0945, For 1 dose Given 02/14/2024 9:23 AM EDT 25 mg Famotidine (Pepcid) tab 20 mg 20 mg, Oral, ONCE, On Wed02/14/24 at 1015, For 1 dose Given 02/14/2024 9:23 AM EDT 20 mg PACLitaxel (Taxol) 106 mg in NSS 250 mL infusion 106 mg (50 mg/m2 2.12 m2 Treatment Plan BSA from Recorded weight), IV Piggyback, ONCE, 1 dose, On Wed02/14/24 at 1045, Administer over 60 Minutes, Administer through 0.22 micron low protein binding filter! Start Infusion 02/14/2024 9:57 AM EDT 106 mg 255 mL/hr Palonosetron (Aloxi) inj SOLN 0.25 mg 0.25 mg, IV Push, ONCE, On Wed02/14/24 at 1015, For 1 dose, Restricted per S antiemetic guidelines Given 02/14/2024 9:25 AM EDT 0.25 mg documented in this encounter Care Teams Professional Benefits Sales Consultant Relationship Specialty Start Date End Date Jason West MD [address] [place] [address] PCP - General 02/06/03 documented as of this encounter
--- OUTSIDE RECORDS SUMMARY | 2024-02-23 02:43 | External Medical Summary | Summary of Care ---
Author Name Unknown Organization [facility] Address [address] [facility] [place] [address] Phone [phone] Care Team Providers Care Retail Loan Officer Name Role Phone Jason West MD Primary Care Provider [phone]- [phone] Reason for Visit * Reason Comments Chemotherapy paclitaxel/carbo * Episode Based Medications (Routine) - Authorized Specialty Diagnoses / Procedures Referred By Abdullahi melo Referred To Contact Diagnoses GE junction carcinoma (HCC) Encounter for antineoplastic chemotherapy Procedures VA PALONOSETRON HCL VA CARBOPLATIN INJECTION VA PACLITAXEL INJECTION Marquez Kolb MD [address] [facility] [place] [address] Anc Hem/Onc [address] [place] [address] Referral ID Status Reason Start Date Expiration Date V isits Requested Visits Authorized [id number] Authorized 01/04/2024 07/01/2024 [id number] Encounter Details Date Type Department Care Team (Latest Contact Info) Description 01/17/2024 10:00 AM EDT Hem/Onc Treatment Hematology/Oncolog y Treatment, [address] [place] [address] Jeny, Chair 4 Hem Onc [address] [place] [address] GE junction carcinoma (HCC)*; Encounter for antineoplastic chemotherapy Allergies Active Allergy Reactions Criticality Noted Date Comments Hydroxyzine Hcl 05/12/2012 halluzinating Cetirizine & Related 02/11/1999 HALLUCINATIONS documented as of this encounter (statuses as of 02/09/2024) Medications Medication Sig Dispensed Refills Start Date End Date Status MULTIVITAMIN/PATIENT FINANCIAL COORDINATOR AL FORMULA TABS OR 1 TABLET DAILY 0 0 12/02/2001 Active SYSTANE PRESERVATIVE FREE 0.4-0.3 % OP SOLNIndications:Ot her anterior corneal dystrophies 1 gtt OU q2h WA 1 box 6 12/03/2008 Active CALCIUM 3322-8218 MG-UNIT PO CHEW Take 1 Tablet by [...] 81 MG TBECIndications:Co ronary artery disease involving hamilton coronary artery of hamilton heart without angina pectoris Take 1 Tab by mouth daily. 30 Tab 11 07/17/2019 Active Loratadine 10 MG Oral Capsule Take 1 Capsule by mouth in the morning. Active Magnesium 400 MG Capsule Take 1 by mouth daily. 30 Cap 11 01/11/2020 Active acetaminophen (TYLENOL) 325 MG Tablet 2 Tablets. 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,Dyslipide mona TAKE 1 TABLET DAILY IN THE MORNING 90 Tablet 3 05/27/2023 Active Insulin Glargine Solostar 100 UNIT/ML Subcutaneous Solution Pen-injector (Lantus SoloStar)Indicatio ns:DM type 2 causing renal disease, not at goal ([facility]) INJECT 20 UNITS SUBCUTANEOUSLY TWICE DAILY 30 mL 2 07/08/2023 Active Digoxin 125 MCG Oral Tablet (Lanoxin)Indicatio ns:Chronic systolic heart failure ([facility]),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..] as of this encounter (statuses as of 02/09/2024) Immunizations Name Administration Dates Next Due COVID-19 mRNA, LNP-s, No Pre serve, 2-Dose Series ([employer]) 07/23/2021,11/14/2020,10/24/2020 COVID-19, MRNA-LNP, 23-24, P F, 30 MCG/0.3 mL, 12 YRS AND ABOVE, [facility] 05/26/2023 Covid-19, Mrna, Lnp-s, Pf, [...] Sign Reading Time Taken Comments Blood Pressure 138/83 01/17/2024 10:20 AM EDT Pulse 92 01/17/2024 10:20 AM EDT Temperature 36.8 C (98.2 F) 01/17/2024 10:20 AM E DT Respiratory Rate - - Oxygen Saturation 94% 01/17/2024 10:20 AM EDT Inhaled Oxygen Concentration - - Weight 98.5 kg (217 lb 3.2 oz) 01/17/2024 10:20 AM EDT Height - - Body Mass Index 38.48 12/17/2023 12:47 PM EDT documented in this encounter Nursing Notes * Delma Jackman RN - 01/17/2024 1:28 PM EDT Goals: Patient will remain free from injury. Possible barriers to meeting goals: Fall risk d/t ambulation with IV pole. Stability of the patient: Moderately unstable - medium risk of patient condition declining or worsening Summary regarding today's goals: Met: Patient remained free of injury. Patient tolerated infusion well. Discharged in stable condition. * Delma Jackman RN - 01/17/2024 11:33 AM EDT Chair 12. Sister in law at chairside. Patient arrived for C1D1 Paclitaxel/Carbo. Patient was oriented to infusion room and infusion process, patient verbalized understanding. Patient given call philip and instructed on how to use, patient verbalizes understanding. PIV established. Chemotherapy/Immunotherapy agents: CARBOPLATIN and TAXOL Consent for chemotherapy drug treatment complete, dated, and signed? yes, date - 01/04/24 Treatment lab parameters met? Yes Has treatment weight changed > than 10%? No Treatment preauthorized? Yes VITALS Filed Vitals: 01/17/24 1020 BP: 138/83 Pulse: 92 Temp: 36.8 C (98.2 F) TempSrc: Tympanic SpO2: 94% Weight: 98.5 kg (217 lb 3.2 oz) Urine protein: N/A Patient education completed for treatment? Yes Blood transfusion consent signed and complete? NA Return appointment scheduled? Yes Patient had provider visit today? No - If no provider visit must complete Pretreatment Assessment Functional Status: Functional status at today's visit: [...] symptoms or adverse side effects during treatment. PRE-TREATMENT ASSESSMENT: NEURO: denies symptoms CV/RESP: denies symptoms GI/: denies symptoms OTHER: denies any additional symptoms PAIN: 0 Safety and Risk for Injury Patient will remain free from injury. Ensure appropriate safety devices are available. Provide and maintain safe environment. documented in this encounter Plan of Treatment Upcoming Encounters Date Type Department Care Team (Late st Contact Info) Description 02/12/2024 10:00 AM EDT Laboratory Laboratory, [address] [place] [address] [place] [address] 02/14/2024 8:00 AM EDT Office Visit Hematology/Oncology [facility] [place] [address] [place] [id number] Marquez Kolb MD [address] [place] [address] 02/14/2024 8:30 AM EDT Hem/Onc Treatment Hematology/Oncology Treatment, [place] [address] [place], [place] [phone] Jeny, Chair 9 Hem Onc [facility] [address] [facility] [place] [address] 03/08/2024 10:00 AM EDT Cardiac Studies Cardiology, [facility] [address] [place] [address] [place], Pacer Clinic [facility] [address] [place] [address] 04/05/2024 1:00 PM EDT Office Visit [facility] [address] [place] [phone] Jason West MD [address] [place] [address] Health Maintenance Due Date Last Done Comments Hepatitis C Screening 1963 COVID-19 Vaccine ( season) 2023 05/26/2023, 05/26/2022, 07/23/2021, Additional history exists Albumin/Creatinine Ratio 10/03/2023 03/2 023, 08/28/2021, 11/18/2020, Additional history exists CKD PHOS USE SMARTSET 72995 10/03/2023 03/0 09/2022, 03/17/2021, 08/18/2019, Additional history exists Depression Monitoring 12/03/2023 12/02/2022 DIG LEVEL FOR MEDICATION MONITORING YEARLY 03/08/2024 03/08/2023, 10/02/2022, 07/29/2021 Influenza Vaccine (FLU shot) (#1) 2024 05/26/2023, 05/22/2022, 04/30/2021, Additional history exists HbA1c 06/18/2024 12/17/2023, 08/0 01/2023, 10/02/2022, Additional history exists GFR 08/07/2024 02/05/2024, 07/0 09/2023, 01/31/2024, Additional history exists Diabetic Eye Exam 11/01/2024 11/02/2023, , 04/07/2019, Additional history exists Diabetic Foot Exam 11/01/2024 11/02/2023, 0 03/17/2021, 12/27/2019, Additional history exists CKD HGB USE SMARTSET 19508 02/04/202502/04, 02/05/2024, 01/31/2024, Additional history exists DXA Scan 03/21/2026 03/21/2019, [...] chemotherapy documented in this encounter Administered Medications Inactive Administered Medications - up to 3 most recent administrations Medication Order MAR Action Action Date Dose Rate Site CARBOplatin (Paraplatin) 179 mg in D5W 250 mL infusion 179 mg (rounded from 179.4 mg, Target AUC = 2), IV Piggyback, at 510 mL/hr Administer over 30 Minutes, PROTECT FROM LIGHT, ONCE, 1 dose, On Wed01/17/24 at 1200 Start Infusion 01/17/2024 12:31 PM EDT 179 mg 510 mL/hr dexAMETHasone (Decadron) tab 12 mg 12 mg, Oral, ONCE, On Wed01/17/24 at 1130, For 1 dose Given 01/17/2024 10:54 AM EDT 12 mg diphenhydrAMINE (Benadryl) inj 25 mg 25 mg, IV Push, ONCE, On Wed01/17/24 at 1100, For 1 dose Given 01/17/2024 10:55 AM EDT 25 mg Famotidine (Pepcid) tab 20 mg 20 mg, Oral, ONCE, On Wed01/17/24 at 1130, For 1 dose Given 01/17/2024 10:54 AM EDT 20 mg NSS infusion Intravenous, at 50 mL/hr, PRN, Starting on Wed01/17/24 at 1130, Until Wed01/17/24 at 1729, Maintenance line Start Infusion 01/17/2024 10:37 AM EDT 50 mL/hr PACLitaxel (Taxol) 106 mg in NSS 250 mL infusion 106 mg (50 mg/m2 2.12 m2 Treatment Plan BSA from Recorded weight), IV Piggyback, ONCE, 1 dose, On Wed01/17/24 at 1200, Administer over 60 Minutes, Administer through 0.22 micron low protein binding filter! Start Infusion 01/17/2024 11:25 AM EDT 106 mg 255 mL/hr Palonosetron (Aloxi) inj SOLN 0.25 mg 0.25 mg, IV Push, ONCE, On Wed01/17/24 at 1130, For 1 dose, Restricted per S antiemetic guidelines Given 01/17/2024 10:55 AM EDT 0.25 mg documented in this encounter Care Teams Retail Loan Officer Relationship Specialty Start Date End Date Jason West MD [address], [place] [phone] PCP - General 7/8/03 documented as of this encounter
--- OUTSIDE RECORDS SUMMARY | 2024-02-23 02:43 | External Medical Summary ---
Author Name Unknown Address Unknown Organization [id number]:LABORATORY [facility] - [facility] [address] [place] [address] Laboratory Report Ordering Provider Test Date Status JANUSAMASHIRA 02/19/2024 09:47:56 Final Normal: <30 mg/g creatinine< br/>High: 30-300 mg/g creatinine
Very High: >300 mg/g creatinine
Nephrotic: >2200 mg/g creatinine Observation Date Value Abnormality Reference (Units ) Status Albumin, Urine 02/19/2024 09:47:56 3.70 (mg/dL) Final Creatinine, Urine 02/19/2024 09:47:56 90 (mg/dL) Final Albumin/Creatinine [Mass Ratio] in Urine 02/19/2024 09:47:56 41 Above high normal <30 (mg/g Creat) Final Performing Location LABORATORY [facility] - [facility] [place] [address] Anthony[address] [place] [address]
--- OUTSIDE RECORDS SUMMARY | 2024-02-23 02:43 | External Medical Summary | Summary of Care ---
Author Name Unknown Organization [facility] Address [address] [facility] [address] Phone [phone] Care Team Providers Care Direct Service Worker Name Role Phone Jason West MD Primary Care Provider [phone]- [phone] Reason for Visit * Reason Comments Outpatient Testing Encounter Details Date Type Department Care Team (Late st Contact Info) Description 02/19/2024 10:30 AM EDT Laboratory Laboratory, [facility] [address] [facility] [place] [address] [place] [facility] [address] [facility] [place] [phone] Type 2 diabetes mellitus with stage 3a chronic kidney disease (HCC); [employer] Other*[id number]; GE junction carcinoma (HCC) Allergies Active Allergy Reactions Criticality Noted Date Comments Hydroxyzine Hcl 05/12/2012 halluzinating Cetirizine & Related 02/11/1999 HALLUCINATIONS documented as of this encounter (statuses as of 02/19/2024) Medications Medication Sig Dispensed Refills Start Date End Date Status MULTIVITAMIN/GENERAL OFFICE ASSISTANT AL FORMULA TABS OR 1 TABLET DAILY 0 0 12/02/2001 Active SYSTANE PRESERVATIVE FREE 0.4-0.3 % OP SOLNIndications:Ot her anterior corneal dystrophies 1 gtt OU q2h WA 1 box 6 12/03/2008 Active CALCIUM 7041-9185 MG-UNIT PO CHEW Take 1 Tablet by [...] 81 MG TBECIndications:Co ronary artery disease involving tolowa dee-ni' coronary artery of tolowa dee-ni' heart without angina pectoris Take 1 Tab by mouth daily. 30 Tab 11 07/17/2019 Active Loratadine 10 MG Oral Capsule Take 1 Capsule by mouth in the morning. Active Magnesium 400 MG Capsule Take 1 by mouth daily. 30 Cap 11 01/11/2020 Active acetaminophen (TYLENOL) 325 MG Tablet 2 Tablets. 04/13/2020 Active Nitroglycerin 0.4 MG Sublingual Tablet Sublingual (Nitrostat)Indicat ions:Coronary artery disease involving tolowa dee-ni' coronary artery of tolowa dee-ni' heart without angina pectoris,Old [place] (myocardial infarction) Place 1 Tablet under the [...] Oral Tablet (Lipitor)Indicatio ns:Coronary artery disease involving tolowa dee-ni' coronary artery of tolowa dee-ni' heart without angina pectoris,Dyslipide mona TAKE 1 TABLET DAILY IN THE MORNING 90 Tablet 3 05/27/2023 Active Insulin Glargine Solostar 100 UNIT/ML Subcutaneous Solution Pen-injector (Lantus SoloStar)Indicatio ns:DM type 2 causing renal disease, 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) INJECT 20 UNITS SUBCUTANEOUSLY TWICE DAILY 30 mL 2 07/08/2023 Active Digoxin 125 MCG Oral Tablet (Lanoxin)Indicatio ns:Chronic systolic heart failure (HCC),Coronary artery disease involving tolowa dee-ni' coronary artery of tolowa dee-ni' heart without angina pectoris Take 1 Tablet [...] single episode, in full remission 12/07/2018 Old [place] (myocardial infarction) 03/31/2018 Heart failure, systolic, due to CAD 03/31/2018 Lymphedema of both lower extremities 03/31/2018 Dyslipidemia 02/18/2018 Coronary artery disease invo lving tolowa dee-ni' coronary artery of tolowa dee-ni' heart without angina pectoris 12/10/2017 PAF (paroxysmal [...] mRNA, LNP-s, No Pre serve, 2-Dose Series ([place]) 07/23/2021,11/14/2020,10/24/2020 COVID-19, MRNA-LNP, 23-24, P F, 30 MCG/0.3 mL, 12 YRS AND ABOVE, IM ([employer]) 05/26/2023 Covid-19, Mrna, Lnp-s, Pf, B ivalent, [...] 10:00 AM EDT Hem/Onc Treatment Hematology/Oncology Treatment, [place] [address] [place] [phone] 03/01/2024 12:30 PM EDT Office Visit Hematology/Oncology [facility] [address] [facility] [place] [phone] Marquez Kolb MD [address] [facility] [address] 04/05/2024 1:00 PM EDT Office Visit [facility] [address] [place] [address] Jason West MD [address] [place] [address] 05/15/2024 10:45 AM EDT Imaging Radiology [facility] [address] [facility] [place] [address] [facility] [place] [address] Pending Results Name Type Priority Associated Diagnoses Date /Time ALBUMIN / CREATININE RATIO, URINE Lab Routine Type 2 diabetes mellitus with stage 3a chronic kidney disease (HCC) 02/19/2024 9:47 AM EDT PHOSPHORUS Lab Routine Type 2 diabetes mellitus with stage 3a chronic kidney disease (HCC) 02/19/2024 9:40 AM EDT MYCODE SUBSEQUENT ADULT Lab Routine [employer] Other*[id number] 02/19/2024 9:40 AM EDT CBC WITH WBC DIFFERENTIAL Lab STAT GE junction carcinoma (HCC) 02/19/2024 9:40 AM EDT COMPREHENSIVE METABOLIC PANEL Lab STAT GE junction carcinoma (HCC) 02/19/2024 9:40 AM EDT MYCODE SST1 Lab Routine [employer] Other*[id number] 02/19/2024 9:40 AM EDT MYCODE SST2 Lab Routine [employer] Other*[id number] 02/19/2024 9:40 AM EDT CBC Lab STAT [...] Additional history exists CKD PHOS USE SMARTSET 37528 10/03/2023 03/0 09/2022, 03/17/2021, 08/18/2019, Additional history [...] Additional history exists CKD HGB USE SMARTSET 89723 02/11/202502/11, 02/12/2024, 02/05/2024, Additional history exists DXA [...] 3a chronic kidney disease (HCC) [employer] Other*[id number] 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
--- OUTSIDE RECORDS SUMMARY | 2024-02-23 02:43 | External Medical Summary | Summary of Care ---
Author Name Unknown Organization [facility] Address [address] [place] [facility] [place] [address] Phone [phone] Care Team Providers Care Endo Tech Name Role Phone Jason West MD Primary Care Provider [phone]- [phone] Reason for Referral * Precert (Within 10 days (routine)) - Pending Review Specialty Diagnoses / Procedures Referred By Abdullahi melo Referred To Contact Radiology Diagnoses GE junction carcinoma (HCC) Procedures PET CT SKULL BASE TO MID-THIGH FDG Marquez Kolb MD [address] [place] [id number] Referral ID Status Reason Start Date Expiration Date V isits Requested Visits Authorized [id number] Pending Review 05/16/2024 999 999 Reason for Visit * Reason Comments Follow Up Encounter Details Date Type Department Care Team (Late st Contact Info) Description 02/14/2024 8:00 AM EDT Office Visit Hematology/Oncology [facility] [address] [place] [phone] Marquez Kolb MD [address] [place] [id number] GE junction carcinoma (HCC)* Allergies Active Allergy Reactions Criticality Noted Date Comments Hydroxyzine Hcl 05/12/2012 halluzinating Cetirizine & Related 02/11/1999 HALLUCINATIONS documented as of this encounter (statuses as of 02/14/2024) Medications Medication Sig Dispensed Refills Start Date End Date Status MULTIVITAMIN/CELLOPHANE BATH MIXER AL FORMULA TABS OR 1 TABLET DAILY 0 0 12/02/2001 Active SYSTANE PRESERVATIVE FREE 0.4-0.3 % OP SOLNIndications:Ot her anterior corneal dystrophies 1 gtt OU q2h WA 1 box 6 12/03/2008 Active CALCIUM 5819-4278 MG-UNIT PO CHEW Take 1 Tablet by [...] MG TBECIndications:Co ronary artery disease involving [place] coronary artery of [place] heart without angina pectoris Take 1 [...] Sublingual (Nitrostat)Indicat ions:Coronary artery disease involving pra[place] coronary artery of [place] heart without angina pectoris,Old [place] (myocardial infarction) [...] Tablet (Lipitor)Indicatio ns:Coronary artery disease involving [place] coronary artery of [place] heart without angina pectoris,Dyslipide mona TAKE 1 TABLET DAILY IN THE MORNING 90 Tablet 3 05/27/2023 Active Insulin Glargine Solostar 100 UNIT/ML Subcutaneous Solution Pen-injector (Lantus SoloStar)Indicatio ns:DM type 2 causing renal disease, not at goal ([facility]) INJECT 20 UNITS SUBCUTANEOUSLY TWICE DAILY 30 mL 2 07/08/2023 Active Digoxin 125 MCG Oral Tablet (Lanoxin)Indicatio ns:Chronic systolic heart failure (HCC),Coronary artery disease involving pra[place] coronary artery of pra[place] heart without angina pectoris Take 1 [...] 02/18/2018 Coronary artery disease invo lving prairie [place] coronary artery of pra[place] heart without angina pectoris 12/10/2017 PAF [...] mRNA, LNP-s, No Pre serve, 2-Dose Series (Betify) 07/23/2021,11/14/2020,10/24/2020 COVID-19, MRNA-LNP, 23-24, P F, 30 MCG/0.3 mL, 12 YRS AND ABOVE, IM ([employer]-Comirnaty) 05/26/2023 Covid-19, Mrna, Lnp-s, Pf, B ivalent, 30 Mcg, IM, 12 yrs and above (Betify) 05/26/2022 Pneumococcal Conjugate Vacc, 13 Valent (Prevnar) [...] Taken Comments Blood Pressure - - Pulse 98 02/14/2024 8:18 AM EDT Temperature 36.2 C (97.1 F) 02/14/2024 8:18 AM ED T Respiratory Rate 17 02/14/2024 8:18 AM EDT Oxygen Saturation 97% 02/14/2024 8:18 AM EDT Inhaled Oxygen Concentration - - Weight 88.6 kg (195 lb 4.8 oz) 02/14/2024 8:18 A M EDT Height - - Body Mass Index 34.6 12/17/2023 12:47 PM EDT documented in this encounter Progress Notes * Marquez Kolb MD - 02/14/2024 8:19 AM EDT Outpatient Consult Note Data Source: Patient, Epic record. Data Source: Patient, Epic record. 02/14/2024 8:19 AM [place] Safia [id number] 78 year old Patient Encounter: HEMATOLOGY/ONCOLOGY 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 Current Treatment: On weekly Carboplatin plus Taxol concurrent with radiation therapy. Previous Treatment: none Oncologic History : 78-year-old female with complicated past medical history including coronary artery disease, hypertension, hyperlipidemia, AFib on Eliquis, type 2 diabetes, heart failure with preserved ejection fraction and overactive bladder referred with the about diagnosis. She was admitted to [facility] between 10/21/23 - 10/27/23. Presented to the emergency department with chest pain, shortness of breath, headache. She has had some swallowing difficulties and weight loss. Swallowing difficulties had been present for few weeks. She had endoscopy done on 10/25/2023 which revealed non obstructing janneth circumferential mass 2 cm [...] (MMRp). - HER2/solomon overexpression: Negative (score 0). [place] Mismatch Repair (MMR) Immunohistochemistry Panel Results: Mismatch repair proficient (MMRp). Immunohistochemistry: MLH1 Protein: Intact. PMS2 Protein: Intact. MSH2 Protein: Intact. MSH6 Protein: Intact. Interpretation: Intact expression of all four proteins (MLH1, MSH2, MSH6 and PMS2) is present. The immunohistochemistry findings are not consistent with microsatellite instability. FISH analysis shows no evidence of HER2 amplification and as such this is considered a NEGATIVE result. Liquipel PD-L1 LDT: Detected Total PD-L1 Expression: 30 [...] was diagnosed of brain tumor. Interval History: Overall clinically she is feeling better with improvement in the appetite. Denies any vomiting, nausea is well controlled with antiemetics. Overall she has more energy level. LABS/IMAGING: Results for orders placed or performed in visit on 02/12/24 COMPREHENSIVE METABOLIC PANEL Result Value Ref Range BUN 22 (H) 6 - 20 mg/dL Creatinine 0.7 0.5 - 1.0 mg/dL Estimated Glomerular Filtration Rate 89 >=60 mL/min Sodium 137 135 - 146 mmol/L Potassium 5.2 (H) 3.5 - 5.1 mmol/L Chloride 100 98 - 107 mmol/L CO2 28 22 - 32 mmol/L Anion Gap 9 7 - 15 mmol/L Glucose 200 (H) 70 - 120 mg/dL Albumin 3.5 (L) 3.8 - 5.0 g/dL AST 22 10 - 35 U/L Alkaline Phosphatase 67 35 - 130 U/L Bilirubin, Total 0.6 <=1.2 mg/dL Calcium 9.3 8.4 - 10.2 mg/dL Protein 6.6 6.0 - 8.3 g/dL ALT 11 10 - 35 U/L CBC Result Value Ref Range WBC 3.39 (L) 4.00 - 10.80 K/uL RBC 3.99 3.85 - 5.15 M/uL HGB 9.6 (L) 12.0 - 15.3 g/dL HCT 32.2 (L) 36.0 - 45.2 % MCV 80.7 81.5 - 97.5 fL MCH 24.1 27.0 - 34.0 pg MCHC 29.8 32.0 - 36.0 g/dL RDW 18.8 11.5 - 15.5 % PLT 116 (L) 140 - 400 K/uL MPV 9.9 6.6 - 11.1 fL DIFFERENTIAL, AUTOMATED Result Value Ref Range WBC 3.39 (L) 4.00 - 10.80 K/uL Neutrophils % 85.0 (H) 40.0 - 75.0 % Lymphocytes % 8.0 (L) 18.0 - 42.0 % Monocytes % 3.2 1.0 - 11.0 % Eosinophils % 2.9 0.0 - 6.0 % Basophils % 0.9 0.0 - 2.0 % Absolute Neutrophils 2.88 1.80 - 7.70 K/uL Absolute Lymphocytes 0.27 (L) 1.00 - 4.80 K/ul Absolute Monocytes 0.11 0.00 - 1.10 K/uL Absolute Eosinophils 0.10 0.00 - 0.70 K/uL Absolute Basophils 0.03 0.00 - 0.20 K/uL DIFFERENTIAL, TECHNOLOGIST REVIEW Result Value Ref Range nRBCs *Note: Due to a large number of results and/or encounters for the requested time period, some results have not been displayed. A complete set of results can be found in Results Review. Overall blood counts are in acceptable range REVIEW OF SYSTEMS: General: No Fever, chills, night sweats HEENT: No change in visual acuity, blurred or double vision. No epistaxis, facial pain, nasal discharge or change in hearing. Denies dysphagia, no muscosal ulceration, or sores noted. Cardiovascular: No chest pain, BRONW, or palpitations Respiratory: No shortness of breath, cough, hemoptysis, or pleuritic chest pain Gastrointestinal: No abdominal pain, improving nausea, vomiting, No diarrhea, rectal pain or bleeding Genitourinary: Denies Hematuria or dysuria Musculoskeletal: No bone pain Skin: No skin rash or lesions noted Psychiatric: No vegetative signs of depression Endocrine: [...] failure, systolic, due to CAD ([facility]) 03/31/2018 HTN, goal below 140/90 Menopause Mixed dyslipidemia Morbid Obesity, BMI not known Myalgia and myositis PAF (paroxysmal atrial fibrillation) ([facility]) 12/10/2017 Polymyalgia rheumatica ([facility]) Current Outpatient Medications Medication Sig Dispense Refill MULTIVITAMIN/MINERAL FORMULA TABS OR 1 TABLET DAILY 0 0 SYSTANE PRESERVATIVE FREE 0.4-0.3 % OP SOLN 1 gtt OU q2h WA 1 box 6 CALCIUM 5289-8831 MG-UNIT PO CHEW Take 1 Tablet by [...] needed for Pain, Chest. 25 Tablet 5 Insulin Pen Needle 32G X 5 MM use to inject lantus twice per day 200 Each 3 OneTouch Verio In Vitro Strip (Glucose Blood) Check blood sugars one time daily. Dx E11.9 300 Strip2 COVID-19 mRNA Vaccine 12 years and above Betify 30 MCG/0.3 ML IM SUSP Inject into a large muscle asdirected 0.3 mL 0 Fluzone High-Dose Quadrivalent 0.7 ML Suspension Prefilled Syringe (Influenza Vac High-Dose Quad (65 years and older)) Inject 0.7 ml intramuscularly as directed (Patient not taking: Reported on 12/17/2023) 0.7 mL 0 Atorvastatin Calcium 40 MG Oral Tablet (Lipitor) TAKE 1 TABLET DAILY IN THE MORNING 90 Tablet 3 Abrysvo 120 MCG/0.5ML Intramuscular Solution Reconstituted (RSV Pre-Fusion F A&B Vac Rcmb) inject as directed (Patient not taking: Reported on 12/17/2023) 1 Each 0 Insulin Glargine Solostar 100 [...] TABLET IN THE EVENING 230 Tablet 3 Advanced Probiotic Oral Capsule Take 1 Capsule by mouth daily. glipiZIDE 5 MG Oral Tablet (Glucotrol) Take 1 Tablet by mouth in the morning and 1 Tablet before bedtime. 180 Tablet 3 Ondansetron HCl 8 MG Oral Tablet Take 1 Tablet by mouth every 8 hours as needed for Nausea. 30 Tablet 0 Prochlorperazine Maleate 10 MG Oral Tablet (Compazine) Take 1 Tablet by mouth every 6 hours as needed for Nausea. 30 Tablet 0 dexAMETHasone 4 MG Oral Tablet 12 mg (3 tab) 12 and 6 hours before chemotherapy 40 Tablet 0 Midodrine HCl 2.5 MG Oral Tablet (Proamatine) Take 1 tablet shortly before or upon rising in the morning, midday, and again in late afternoon but no later than 6:00 p.m.. 270 Tablet 3 Torsemide 10 MG Oral Tablet (Demadex) Take 1 Tablet by mouth in the morning. 90 Tablet 3 Pantoprazole Sodium 40 MG Oral Tablet Delayed Release (Protonix) Take 1 Tablet by mouth 2 times a day. 180 Tablet 3 No current facility-administered medications for this visit. Social History Tobacco Use Smoking status: Former Current packs/day: 0.00 Average packs/day: 1.5 packs/day for 35.0 years (52.5 ttl pk-yrs) Types: Cigarettes Start date: 08/12/1964 Quit date: 08/12/1999 Years since quittin.5 Smokeless tobacco: Never Tobacco comments: 10/25/98 Vaping Use Vaping status: Never Used Substance Use Topics Alcohol use: Not Currently Drug use: No Review of patient's allergies indicates: Allergen Reactions Atarax [Hydroxyzine Hcl] halluzinating Cetirizine & Related HALLUCINATIONS PHYSICAL EXAMINATION: General Appearance: Healthy appearing patient in no acute distress Pulse 98 | Temp 36.2 C (97.1 F) (Tympanic) | Resp 17 | Wt 88.6 kg (195 lb 4.8 oz) | SpO2 97% | BMI 34.60 kg/m | BSA 1.98 m Vitals reviewed. HEENT: No oral or pharyngeal [...] mismatch repair proficient and HER2 Solomon negative. [id number] was 30 CPS. Endo sonographic ultrasound revealed T3 N 0 disease. 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 Currently she is receiving weekly Taxol plus carboplatin concurrent with radiation therapy. She is scheduled to complete radiation therapy on 02/28/2024. She will receive tumor the risk of the chemotherapy including 1 today and next week. Overall clinically she is feeling better with improvement in the energy level and appetite. All herblood counts are in acceptable range. Discussed with the patient about diagnosis reviewed all the available blood test result with her. PLAN: Proceed with the chemotherapy as scheduled. She will return clinic for follow-up in 1 week. The patient voiced understanding of all of [...] Notes * Annie Paz MED ASSIST - 02/14/2024 8:19 AM EDT Patient identifed by name and [...] it for you? ALREADY ACTIVE Filed Vitals: 02/14/24 0818 Pulse: 98 Resp: 17 Temp: 36.2 C (97.1 F) TempSrc: Tympanic SpO2: 97% Weight: 88.6 kg (195 lb 4.8 oz) Patient was instructed to not get [...] Care Team (Late st Contact Info) Description 03/08/2024 10:00 AM EDT Cardiac Studies Cardiology, [facility] [address] [address] [place] [address] [facility] [place] [address] 04/05/2024 1:00 PM EDT Office Visit [facility] [address] [place] [id number] Jason West MD [address] [place], [place] [id number] Scheduled Orders Name Type Priority Associated Diagnoses Orde r Schedule PET CT SKULL BASE TO MID-THIGH FDG Medical Imaging Routine GE junction carcinoma (HCC) Expected: 05/16/2024, Expires: 03/16/2025 Health Maintenance Due Date Last Done Comments Hepatitis C Screening 1963 COVID-19 Vaccine ( season) 2023 05/26/2023, 05/26/2022, 07/23/2021, Additional history exists Albumin/Creatinine Ratio 10/03/2023 023, 08/28/2021, 11/18/2020, Additional history exists CKD PHOS USE SMARTSET 34845 10/03/2023 03/0 09/2022, 03/17/2021, 08/18/2019, Additional history [...] Additional history exists CKD HGB USE SMARTSET 08921 02/11/202502/11, 02/12/2024, 02/05/2024, Additional history exists DXA [...] cardia documented in this encounter Care Teams Endo Tech Relationship Specialty Start Date End Date Jasno West MD [address] [place] [address] PCP - General 02/06/03 documented as of this encounter"
--- OUTSIDE RECORDS SUMMARY | 2024-02-23 02:43 | External Medical Summary ---
Author Name Unknown Address Unknown Organization [id number]:[facility] [place] [address] Laboratory Report Ordering Provider Test Date Status DAQUAN MOHAN 02/19/2024 09:40:47 Final Observation Date Value Abnormality Reference (Units ) Status WBC, Total 02/19/2024 09:40:47 0.79 Below lower panic limits 4.00-10.80 (K/uL) Final Results rechecked.
null RBC 02/19/2024 09:40:47 3.89 3.85-5.15 (M/uL) Final Hemoglobin 02/19/2024 09:40:47 9.3 Below low normal 12 .0-15.3 (g/dL) Final HCT 02/19/2024 09:40:47 30.9 Below low normal 36. 0-45.2 (%) Final MCV 02/19/2024 09:40:47 79.4 81.5-97.5 (fL) Final MCH 02/19/2024 09:40:47 23.9 27.0-34.0 (pg) Final MCHC 02/19/2024 09:40:47 30.1 32.0-36.0 (g/dL) Final RDW 02/19/2024 09:40:47 18.6 11.5-15.5 (%) Final Platelets 02/19/2024 09:40:47 93 Below low normal 140 -400 (K/uL) Final Results rechecked.
null MPV 02/19/2024 09:40:47 10.0 6.6-11.1 ( fL) Final Performing Location [facility] [place] [address]
--- OUTSIDE RECORDS SUMMARY | 2024-02-23 02:43 | External Medical Summary ---
Author Name Unknown Address Unknown Organization K0[facility] [address] - [address] [place] [address] Laboratory Report Ordering Provider Test Date Status DAQUAN MOHAN 02/19/2024 09:40:47 Final Observation Date Value Abnormality Reference (Units ) Status BUN 02/19/2024 09:40:47 23 Above high normal 6-20 (mg/dL) Final Creatinine 02/19/2024 09:40:47 0.8 0.5-1.0 (mg/dL) Final Glomerular filtration rate/1.73 sq M.predicted [Volume Rate/Area] in Serum, Plasma or Blood by Creatinine-based formula (CKD-EPI) 02/19/2024 09:40:47 78 >=60 (mL/min) Final eGFR is calculated based on the CKD-EPI 2020 equation. Sodium 02/19/2024 09:40:47 139 135-146 (m mol/L) Final Potassium 02/19/2024 09:40:47 4.6 3.5-5.1 (m mol/L) Final Cl 02/19/2024 09:40:47 101 98-107 (mm ol/L) Final CO2 02/19/2024 09:40:47 26 22-32 (mmo l/L) Final Anion gap 02/19/2024 09:40:47 12 7-15 (mmol /L) Final Glucose 02/19/2024 09:40:47 229 Above high normal 70 -120 (mg/dL) Final Albumin 02/19/2024 09:40:47 3.6 Below low normal 3.8 -5.0 (g/dL) Final AST (Aspartate aminotransferase) 02/19/2024 09:40:47 21 10-35 (U/L) Fin al Alk Phos 02/19/2024 09:40:47 74 35-130 (U/ L) Final Bilirubin, Total 02/19/2024 09:40:47 0.9 <=1 .2 (mg/dL) Final Calcium 02/19/2024 09:40:47 9.3 8.4-10.2 ( mg/dL) Final Protein 02/19/2024 09:40:47 6.9 6.0-8.3 (g /dL) Final ALT (Alanine aminotransferase) 02/19/2024 09:40:47 15 10-35 (U/L) Axel lopze Performing Location [facility] [address] [place] [address]
--- OUTSIDE RECORDS SUMMARY | 2024-02-23 02:43 | External Medical Summary | Summary of Care ---
Author Name Unknown Organization [facility] Address [address] [facility] [place] [address] Phone [phone] Care Team Providers Care Owner Operator Tanker Truck Driver Name Role Phone Jason West MD Primary Care Provider [phone]- [phone] Reason for Visit * Reason Onset Date Comments Appointment 02/16/2024 [facility] appointment Encounter Details Date Type Department Care Team (Late st Contact Info) Description 02/16/2024 Telephone Cardiology, [facility] 132 [facility] [place] [address] [facility] 132 [facility] [place] [address] Appointment (DC appointment ) Allergies Active Allergy Reactions Criticality Noted Date Comments Hydroxyzine Hcl 05/12/2012 halluzinating Cetirizine & Related 02/11/1999 HALLUCINATIONS documented as of this encounter (statuses as of 02/16/2024) Medications Medication Sig Dispensed Refills Start Date End Date Status MULTIVITAMIN/WOOL HAT FLANGER AL FORMULA TABS OR 1 TABLET DAILY 0 0 12/02/2001 Active SYSTANE PRESERVATIVE FREE 0.4-0.3 % OP SOLNIndications:Ot her anterior corneal dystrophies 1 gtt OU q2h WA 1 box 6 12/03/2008 Active CALCIUM 0901-3402 MG-UNIT PO CHEW Take 1 Tablet by [...] 81 MG TBECIndications:Co ronary artery disease involving red devil coronary artery of red devil heart without angina pectoris Take 1 Tab by mouth daily. 30 Tab 11 07/17/2019 Active Loratadine 10 MG Oral Capsule Take 1 Capsule by mouth in the morning. Active Magnesium 400 MG Capsule Take 1 by mouth daily. 30 Cap 11 01/11/2020 Active acetaminophen (TYLENOL) 325 MG Tablet 2 Tablets. 04/13/2020 Active Nitroglycerin 0.4 MG Sublingual Tablet Sublingual (Nitrostat)Indicat ions:Coronary artery disease involving red devil coronary artery of red devil heart without angina pectoris,Old [place] (myocardial infarction) Place 1 Tablet under the [...] Oral Tablet (Lipitor)Indicatio ns:Coronary artery disease involving red devil coronary artery of red devil heart without angina pectoris,Dyslipide mona TAKE 1 TABLET DAILY IN THE MORNING 90 Tablet 3 05/27/2023 Active Insulin Glargine Solostar 100 UNIT/ML Subcutaneous Solution Pen-injector (Lantus SoloStar)Indicatio ns:DM type 2 causing renal disease, 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) INJECT 20 UNITS SUBCUTANEOUSLY TWICE DAILY 30 mL 2 07/08/2023 Active Digoxin 125 MCG Oral Tablet (Lanoxin)Indicatio ns:Chronic systolic heart failure (HCC),Coronary artery disease involving red devil coronary artery of red devil heart without angina pectoris Take 1 Tablet [...] a day. 180 Tablet 3 01/10/2024 Active MerkuTouch Verio w/Device Kit Use up to 4 times a day E11.9 1 Kit 02/15/2024 Active documented as of this encounter (statuses as of 02/16/2024) Active Problems Problem Noted Date Diagnosed Date [...] single episode, in full remission 12/07/2018 Old PR (myocardial infarction) 03/31/2018 Heart failure, systolic, due to CAD 03/31/2018 Lymphedema of both lower extremities 03/31/2018 Dyslipidemia 02/18/2018 Coronary artery disease invo lving red devil coronary artery of red devil heart without angina pectoris 12/10/2017 PAF (paroxysmal atrial fibrillation) 12/10/2017 Type 2 diabetes mellitus wit h hemoglobin A1c goal of less than 8.0% 09/08/2013 Overview: ICD-10 update of inactive term DJD, CERVICAL SPINE 04/12/2002 GENERAL OSTEOARTHROSIS documented as of this encounter (statuses as of 02/16/2024) Resolved Problems Problem Noted Date Diagnosed Date [...] as of this encounter (statuses as of 02/16/2024) Immunizations Name Administration Dates Next Due COVID-19 mRNA, LNP-s, No Pre serve, 2-Dose Series ([employer]) 07/23/2021,11/14/2020,10/24/2020 COVID-19, MRNA-LNP, 23-24, P F, 30 MCG/0.3 mL, 12 YRS AND ABOVE, IM ([employer]-Comirnat) 05/26/2023 Covid-19, Mrna, Lnp-s, Pf, B ivalent, [...] encounter Miscellaneous Notes * Telephone Encounter - Deidra Molina LPN - 02/16/2024 2:41 PM EDT [employer] message sent to patient regarding cancellation of [facility] appointment 03/08/2025. Patient monitored remotely, IOC not indicated at this time, documented in this encounter Plan of Treatment Upcoming Encounters Date Type Department Care Team (Late st Contact Info) Description 02/19/2024 10:30 AM EDT Laboratory Laboratory, [facility] [address] [place] [phone] [facility] [address] [place] [address] 02/21/2024 10:00 AM EDT Hem/Onc Treatment Hematology/Oncology Treatment, [place] [address] [facility] [address] [place] [phone] 03/01/2024 12:30 PM EDT Office Visit Hematology/Oncology [facility] [address] [facility] [place] [phone] Marquez Kolb MD [address] [facility] [place] [address] 03/08/2024 10:00 AM EDT Cardiac Studies Cardiology, [facility] [address] [place] [address] [facility] [address] [place] [address] 04/05/2024 1:00 PM EDT [facility] [place] [address] [facility] [phone] Jason West MD [address] [facility] [place] [address] 05/15/2024 10:45 AM EDT Imaging Radiology [address], [place] 132 [facility] [place] [address] Health Maintenance Due Date Last Done Comments Hepatitis C Screening 1963 COVID-19 Vaccine ( season) 2023 05/26/2023, 05/26/2022, 07/23/2021, Additional history exists Albumin/Creatinine Ratio 10/03/2023 023, 08/28/2021, 11/18/2020, Additional history exists CKD PHOS USE SMARTSET 79407 10/03/2023 03/0 09/2022, 03/17/2021, 08/18/2019, Additional history [...] Additional history exists CKD HGB USE SMARTSET 51363 02/11/202502/11, 02/12/2024, 02/05/2024, Additional history exists DXA [...] filedocumented as of this encounter Care Teams Owner Operator Tanker Truck Driver Relationship Specialty Start Date End Date Jason West MD [address] [place] [address] PCP - General 02/06/03 documented as of this encounter
--- OUTSIDE RECORDS SUMMARY | 2024-02-23 02:43 | External Medical Summary ---
Author Name Unknown Address Unknown Organization K01:[facility] - [address] [place] [address] Laboratory Report Ordering Provider Test Date Status MELLISASHARATH 02/19/2024 09:40:47 Final Observation Date Value Abnormality Reference (Units ) Status MYCODE SPECIMEN-SST 02/19/2024 09:40:47 Freezing of extracted DNA, whole blood and/or serum. Final Performing Location [facility] - [address] [place] [address]
--- OUTSIDE RECORDS SUMMARY | 2024-02-23 02:43 | External Medical Summary ---
Author Name Unknown Address Unknown Organization [id number]:[facility] [address] - [address] [place] [address] Laboratory Report Ordering Provider Test Date Status DAQUAN MOHAN 02/12/2024 09:34:00 Final Observation Date Value Abnormality Reference (Units ) Status BUN 02/12/2024 09:34:00 22 Above high normal 6-20 (mg/dL) Final Creatinine 02/12/2024 09:34:00 0.7 0.5-1.0 (mg/dL) Final Glomerular filtration rate/1.73 sq M.predicted [Volume Rate/Area] in Serum, Plasma or Blood by Creatinine-based formula (CKD-EPI) 02/12/2024 09:34:00 89 >=60 (mL/min) Final eGFR is calculated based on the CKD-EPI 2020 equation Sodium 02/12/2024 09:34:00 137 135-146 (m mol/L) Final Potassium 02/12/2024 09:34:00 5.2 Above high normal 3. 5-5.1 (mmol/L) Final Cl 02/12/2024 09:34:00 100 98-107 (mm ol/L) Final CO2 02/12/2024 09:34:00 28 22-32 (mmo l/L) Final Anion gap 02/12/2024 09:34:00 9 7-15 (mmol /L) Final Glucose 02/12/2024 09:34:00 200 Above high normal 70 -120 (mg/dL) Final Albumin 02/12/2024 09:34:00 3.5 Below low normal 3.8 -5.0 (g/dL) Final AST (Aspartate aminotransferase) 02/12/2024 09:34:00 22 10-35 (U/L) Fin al Alk Phos 02/12/2024 09:34:00 67 35-130 (U/ L) Final Bilirubin, Total 02/12/2024 09:34:00 0.6 <=1 .2 (mg/dL) Final Calcium 02/12/2024 09:34:00 9.3 8.4-10.2 ( mg/dL) Final Protein 02/12/2024 09:34:00 6.6 6.0-8.3 (g /dL) Final ALT (Alanine aminotransferase) 02/12/2024 09:34:00 11 10-35 (U/L) Axel lopez Performing Location LAB[facility]ATORY [facility] [address] - [address] [place] [address]
--- OUTSIDE RECORDS SUMMARY | 2024-02-23 02:43 | External Medical Summary ---
Author Name Unknown Address Unknown Organization [id number]:[facility]ORY [place] [address] - [address] [place] [address] Laboratory Report Ordering Provider Test Date Status DAQUAN MOHAN 02/12/2024 09:34:00 Final Observation Date Value Abnormality Reference (Units ) Status WBC, Total 02/12/2024 09:34:00 3.39 Below low normal 4. 00-10.80 (K/uL) Final RBC 02/12/2024 09:34:00 3.99 3.85-5.15 (M/uL) Final Hemoglobin 02/12/2024 09:34:00 9.6 Below low normal 12 .0-15.3 (g/dL) Final HCT 02/12/2024 09:34:00 32.2 Below low normal 36. 0-45.2 (%) Final MCV 02/12/2024 09:34:00 80.7 81.5-97.5 (fL) Final MCH 02/12/2024 09:34:00 24.1 27.0-34.0 (pg) Final MCHC 02/12/2024 09:34:00 29.8 32.0-36.0 (g/dL) Final RDW 02/12/2024 09:34:00 18.8 11.5-15.5 (%) Final Platelets 02/12/2024 09:34:00 116 Below low normal 140 -400 (K/uL) Final MPV 02/12/2024 09:34:00 9.9 6.6-11.1 ( fL) Final Performing Location [facility] 0 - [address] [place] [address]
--- OUTSIDE RECORDS SUMMARY | 2024-02-23 02:43 | External Medical Summary ---
Author Name Unknown Address Unknown Organization K0G:[facility] [address] - [address] [place] [address] Laboratory Report Ordering Provider Test Date Status DAQUAN MOHAN 02/19/2024 09:40:47 Final Observation Date Value Abnormality Reference (Units ) Status SYNC LEUKOCYTES IN BLOOD BY AUTOMATED COUNT 02/19/2024 09:40:47 0.79 Below lower panic limits 4.00-10.80 (K/uL) Final Neutrophils/100 leukocytes in Blood by Manual count 02/19/2024 09:40:47 48.0 40.0-75.0 (%) Final Lymphocytes/100 leukocytes in Blood by Manual count 02/19/2024 09:40:47 18.0 18.0-42.0 (%) Final Monocytes/100 leukocytes in Blood by Manual count 02/19/2024 09:40:47 10.0 1.0-11.0 (%) Final Eosinophils/100 leukocytes in Blood by Manual count 02/19/2024 09:40:47 24.0 Above high normal 0.0-6.0 (%) Final Neutrophils [#/volume] in Blood by Manual count 02/19/2024 09:40:47 0.38 Below low normal 1.80-7.70 (K/uL) Final Lymphocytes [#/volume] in Blood by Manual count 02/19/2024 09:40:47 0.14 Below low normal 1.00-4.80 (K/uL) Final Monocytes [#/volume] in Blood by Manual count 02/19/2024 09:40:47 0.08 0.00-1.10 (K/uL) Final Eosinophils [#/volume] in Blood by Manual count 02/19/2024 09:40:47 0.19 0.00-0.70 (K/uL) Final Nucleated erythrocytes/100 leukocytes [Ratio] in Blood by Automated count 02/19/2024 09:40:47 Final Performing Location [facility]ATORY [facility] [address] - [address] [place] [address]
--- OUTSIDE RECORDS SUMMARY | 2024-02-23 02:43 | External Medical Summary | Summary of Care ---
Author Name Unknown Organization [facility] Address [address] [facility] [address] Phone [phone] Care Team Providers Care Binder Selector Name Role Phone Jason Wets MD Primary Care Provider [phone]- [phone] Reason for Visit * Reason Comments Outpatient Testing Encounter Details Date Type Department Care Team (Late st Contact Info) Description 02/12/2024 10:00 AM EDT Laboratory Laboratory, [facility] 132 [facility] [place] [address] [facility] 132 [facility] [place] [id number] GE junction carcinoma (HCC) Allergies Active Allergy Reactions Criticality Noted Date Comments Hydroxyzine Hcl 05/12/2012 halluzinating Cetirizine & Related 02/11/1999 HALLUCINATIONS documented as of this encounter (statuses as of 02/12/2024) Medications Medication Sig Dispensed Refills Start Date End Date Status MULTIVITAMIN/CLEANER FURNITURE AL FORMULA TABS OR 1 TABLET DAILY 0 0 12/02/2001 Active SYSTANE PRESERVATIVE FREE 0.4-0.3 % OP SOLNIndications:Ot her anterior corneal dystrophies 1 gtt OU q2h WA 1 box 6 12/03/2008 Active CALCIUM 7159-9984 MG-UNIT PO CHEW Take 1 Tablet by mouth in the morning. Active Cinnamon 500 MG Capsule Take 2 Capsules by mouth in the morning. Active ONETOUCH ULTRASOFT LANCETS MISCIndications:DM type 2 causing renal disease ([facility]) Use as directed daily. Use up to four times a day as directed. Dx E11.9 3 Box Dosing Unit 3 09/13/2018 Active aspirin enteric coated 81 MG TBECIndications:Co ronary artery disease involving pokagon coronary artery of 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 angina pectoris Take 1 Tab by mouth daily. 30 Tab 11 07/17/2019 Active Loratadine 10 MG Oral Capsule Take 1 Capsule by mouth in the morning. Active Magnesium 400 MG Capsule Take 1 by mouth daily. 30 Cap 11 01/11/2020 Active acetaminophen (TYLENOL) 325 MG Tablet 2 Tablets. 04/13/2020 Active Nitroglycerin 0.4 MG Sublingual Tablet Sublingual (Nitrostat)Indicat ions:Coronary artery disease involving pok[place] coronary artery of 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 angina pectoris,Old [place] (myocardial infarction) [...] Oral Tablet (Lipitor)Indicatio ns:Coronary artery disease involving pok[place] coronary artery of 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 angina pectoris,Dyslipide mona TAKE 1 TABLET DAILY IN THE MORNING 90 Tablet 3 05/27/2023 Active Insulin Glargine Solostar 100 UNIT/ML Subcutaneous Solution Pen-injector (Lantus SoloStar)Indicatio ns:DM type 2 causing renal disease, not at goal ([facility]) INJECT 20 UNITS SUBCUTANEOUSLY TWICE DAILY 30 mL 2 07/08/2023 Active Digoxin 125 MCG Oral Tablet (Lanoxin)Indicatio ns:Chronic systolic heart failure (HCC),Coronary artery disease involving pokagon coronary artery of 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 angina pectoris Take 1 Tablet [...] as of this encounter (statuses as of 02/12/2024) Active Problems Problem Noted Date Diagnosed Date [...] Dyslipidemia 02/18/2018 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 angina pectoris 12/10/2017 PAF (paroxysmal atrial fibrillation) 12/10/2017 Type 2 diabetes mellitus wit h hemoglobin A1c goal of less than 8.0% 09/08/2013 Overview: ICD-10 update of inactive term DJD, CERVICAL SPINE 04/12/2002 GENERAL OSTEOARTHROSIS documented as of this encounter (statuses as of 02/12/2024) Resolved Problems Problem Noted Date Diagnosed Date Resolved Date Diabetes mellitus with stage 3 chronic kidney disease 05/15/2019 12/12/2020 Overview: Per CKD protocol Gastroesophageal reflux disease 12/30/2018 08/18/2019 CHF (congestive heart failure) 12/07/2018 12/30/2018 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 019 Systolic heart failure michela [...] as of this encounter (statuses as of 02/12/2024) Immunizations Name Administration Dates Next Due COVID-19 mRNA, LNP-s, No Pre serve, 2-Dose Series ([employer]) 07/23/2021,11/14/2020,10/24/2020 COVID-19, MRNA-LNP, 23-24, P F, 30 MCG/0.3 mL, 12 YRS AND ABOVE, IM ([employer]) 05/26/2023 Covid-19, Mrna, Lnp-s, Pf, B ivalent, 30 Mcg, IM, 12 yrs and above ([employer]) 05/26/2022 Pneumococcal Conjugate Vacc, 13 Valent (Prevnar) [...] 02/14/2024 8:00 AM EDT Office Visit Hematology/Oncology [facility] [address] [place] [phone] Marquez Kolb MD [address] [place] [address] 02/14/2024 8:30 AM EDT Hem/Onc Treatment Hematology/Oncology Treatment, [place] [address] [place] [phone] Jeny, Chair 9 Hem Onc [facility] 200 [facility] [place] [address] 03/08/2024 10:00 AM EDT Cardiac Studies Cardiology, [facility] 132 [place] [address] Delmar [place] 132 [facility] [place] [address] 04/05/2024 1:00 PM EDT Office Visit [facility] [address] [place] [address] Jason West MD [address] [place] [address] Pending Results Name Type Priority Associated Diagnoses Date /Time CBC WITH WBC DIFFERENTIAL Lab STAT GE junction carcinoma (HCC) 02/12/2024 9:34 AM EDT COMPREHENSIVE METABOLIC PANEL Lab STAT GE junction carcinoma (HCC) 02/12/2024 9:34 AM EDT CBC Lab STAT GE junction carcinoma (HCC) 02/12/2024 9:34 AM EDT DIFFERENTIAL, AUTOMATED Lab STAT GE junction carcinoma (HCC) 02/12/2024 9:34 AM EDT Health Maintenance Due Date Last Done Comments Hepatitis C Screening 1963 COVID-19 Vaccine ( season) 2023 05/26/2023, 05/26/2022, 07/23/2021, Additional history exists Albumin/Creatinine Ratio 10/03/202310/02/2 023, 08/28/2021, 11/18/2020, Additional history exists CKD PHOS USE SMARTSET 88777 10/03/2023 03/0 09/2022, 03/17/2021, 08/18/2019, Additional history [...] Additional history exists CKD HGB USE SMARTSET 24068 02/04/202502/04, 02/05/2024, 01/31/2024, Additional history exists DXA [...] encounter Visit Diagnoses Diagnosis 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
--- OUTSIDE RECORDS SUMMARY | 2024-02-23 02:43 | External Medical Summary ---
Author Name Unknown Address Unknown Organization K0G:LABORATORY [place] [address] - [address] [facility] [address] Laboratory Report Ordering Provider Test Date Status DAQUAN MOHAN 02/12/2024 09:34:00 Final Observation Date Value Abnormality Reference (Units ) Status SYNC LEUKOCYTES IN BLOOD BY AUTOMATED COUNT 02/12/2024 09:34:00 3.39 Below low normal 4.00-10.80 (K/uL) Final Segs 02/12/2024 09:34:00 85.0 Above high normal 40.0-75.0 (%) Final Lymphs % 02/12/2024 09:34:00 8.0 Below low normal 18.0-42.0 (%) Final Monos 02/12/2024 09:34:00 3.2 1.0-11.0 (%) Final Eosinophils 02/12/2024 09:34:00 2.9 0.0-6.0 (%) Final Basos 02/12/2024 09:34:00 0.9 0.0-2.0 (%) Final Absolute Segs 02/12/2024 09:34:00 2.88 1.80-7.70 (K/uL) Final Lymphs, absolute 02/12/2024 09:34:00 0.27 Below low normal 1.00-4.80 (K/ul) Final Monos, Abs 02/12/2024 09:34:00 0.11 0.00-1.10 (K/uL) Final Eos, Abs 02/12/2024 09:34:00 0.10 0.00-0.70 (K/uL) Final Basos, Abs 02/12/2024 09:34:00 0.03 0.00-0.20 (K/uL) Final Performing Location LABORATORY [place] 57-[address] 0 - [address] [place] [address]
--- OUTSIDE RECORDS SUMMARY | 2024-02-23 02:43 | External Medical Summary ---
Author Name Unknown Address Unknown Organization K01:LABORATORY [facility] - [address] [place] [address] Laboratory Report Ordering Provider Test Date Status MELLISASHARATH 02/19/2024 09:40:47 Final Observation Date Value Abnormality Reference (Units ) Status MYCODE SPECIMEN-SST 02/19/2024 09:40:47 Freezing of extracted DNA, whole blood and/or serum. Final Performing Location LABORATORY C - [address] [place] [address]
--- OUTSIDE RECORDS SUMMARY | 2024-02-23 02:44 | External Medical Summary | Summary of Care ---
Author Name Unknown Organization [facility] Address [address] [facility] [place] [address] Phone [phone] Care Team Providers Care Embossing Calender Operator Name Role Phone Jason West MD Primary Care Provider +1- [phone] Reason for Visit * Reason Comments Chemotherapy paclitaxel/carbo * Episode Based Medications (Routine) - Authorized Specialty Diagnoses / Procedures Referred By Abdullahi melo Referred To Contact Diagnoses GE junction carcinoma (HCC) Encounter for antineoplastic chemotherapy Procedures RI PALONOSETRON HCL RI CARBOPLATIN INJECTION RI PACLITAXEL INJECTION Marquez Kolb MD 200 [facility] [place] [address] Anc Hem/Onc [address] [place] [address] Referral ID Status Reason Start Date Expiration Date V isits Requested Visits Authorized [id number] Authorized 01/04/2024 07/01/2024 [id number] Encounter Details Date Type Department Care Team (Latest Contact Info) Description 01/17/2024 10:00 AM EDT Hem/Onc Treatment Hematology/Oncolog y Treatment, [address] [place] [address] Jeny, Chair 4 Hem Onc [address] [place] [address] GE junction carcinoma (HCC)*; Encounter for antineoplastic chemotherapy Allergies Active Allergy Reactions Criticality Noted Date Comments Hydroxyzine Hcl 05/12/2012 halluzinating Cetirizine & Related 02/11/1999 HALLUCINATIONS documented as of this encounter (statuses as of 02/09/2024) Medications Medication Sig Dispensed Refills Start Date End Date Status MULTIVITAMIN/SALES REPRESENTATIVE SALES MANAGER AL FORMULA TABS OR 1 TABLET DAILY 0 0 12/02/2001 Active SYSTANE PRESERVATIVE FREE 0.4-0.3 % OP SOLNIndications:Ot her anterior corneal dystrophies 1 gtt OU q2h WA 1 box 6 12/03/2008 Active CALCIUM 2661-9427 MG-UNIT PO CHEW Take 1 Tablet by mouth in the morning. Active Cinnamon 500 MG Capsule Take 2 Capsules by mouth in the morning. Active ONETOUCH ULTRASOFT LANCETS MISCIndications:DM type 2 causing renal disease ([facility]) Use as directed daily. Use up to [...] artery of [place] heart without angina pectoris,Old [place] (myocardial infarction) [...] not at goal ([facility]) INJECT 20 UNITS SUBCUTANEOUSLY TWICE DAILY 30 mL 2 07/08/2023 Active Digoxin 125 MCG Oral Tablet (Lanoxin)Indicatio ns:Chronic systolic heart failure ([facility]),Coronary artery disease involving [place] coronary artery of [...] mRNA, LNP-s, No Pre serve, 2-Dose Series ([employer]) 07/23/2021,11/14/2020,10/24/2020 COVID-19, MRNA-LNP, 23-24, P F, 30 MCG/0.3 mL, 12 YRS AND ABOVE, IM ([facility]) 05/26/2023 Covid-19, Mrna, Lnp-s, Pf, B [...] Description 02/12/2024 10:00 AM EDT Laboratory Laboratory, [address] [place] [address] [place] [address] 02/14/2024 8:00 AM EDT Office Visit Hematology/Oncology [facility] [place] [address] [place] [phone] Marquez Kolb MD [address] [place] [address] 02/14/2024 8:30 AM EDT Hem/Onc Treatment Hematology/Oncology Treatment, [place] [address] [place], [place] [phone] Jeny, Chair 9 Hem Onc [facility] 200 [facility] [place] [address] 03/08/2024 10:00 AM EDT Cardiac Studies Cardiology, [facility] 132 [place] [address] [place], Pacer Clinic [facility] 132 [place] [address] 04/05/2024 1:00 PM EDT Office Visit [facility] [address] [place] [phone] Jason West MD [address] [place] [address] Health Maintenance Due Date Last Done Comments Hepatitis C Screening 1963 COVID-19 Vaccine ( season) 2023 05/26/2023, 05/26/2022, 07/23/2021, Additional history exists Albumin/Creatinine Ratio 10/03/2023 03/2 023, 08/28/2021, 11/18/2020, Additional history exists CKD PHOS USE SMARTSET 42873 10/03/2023 03/0 09/2022, 03/17/2021, 08/18/2019, Additional history [...] Additional history exists CKD HGB USE SMARTSET 08130 02/04/202502/04, 02/05/2024, 01/31/2024, Additional history exists DXA [...] mg documented in this encounter Care Teams Embossing Calender Operator Relationship Specialty Start Date End Date Jason West MD [address] [place], [place] [phone] PCP - General 7/8/03 documented as of this encounter
--- OUTSIDE RECORDS SUMMARY | 2024-02-23 02:44 | External Medical Summary | Summary of Care ---
Author Name Unknown Organization [facility] Address [address] [place] [place] [address] Phone [phone] Care Team Providers Care Straightedge Man Name Role Phone Jason West MD Primary Care Provider +1- [phone] Reason for Visit * Reason Comments Chemotherapy paclitaxel/carbo * Episode Based Medications (Routine) - Authorized Specialty Diagnoses / Procedures Referred By Abdullahi melo Referred To Contact Diagnoses GE junction carcinoma (HCC) Encounter for antineoplastic chemotherapy Procedures VT PALONOSETRON HCL VT CARBOPLATIN INJECTION VT PACLITAXEL INJECTION Marqeuz Kolb MD 200 [facility] [place] [address] Anc Hem/Onc [address] [place] [address] Referral ID Status Reason Start Date Expiration Date V isits Requested Visits Authorized [id number] Authorized 01/04/2024 07/01/[phone] Encounter Details Date Type Department Care Team (Latest Contact Info) Description 01/17/2024 10:00 AM EDT Hem/Onc Treatment Hematology/Oncolog y Treatment, [address] [place] [address] Jeny, Chair 4 Hem Onc [address] [place] [address] GE junction carcinoma (HCC)*; Encounter for antineoplastic chemotherapy Allergies Active Allergy Reactions Criticality Noted Date Comments Hydroxyzine Hcl 05/12/2012 halluzinating Cetirizine & Related 02/11/1999 HALLUCINATIONS documented as of this encounter (statuses as of 02/09/2024) Medications Medication Sig Dispensed Refills Start Date End Date Status MULTIVITAMIN/SENIOR COMPUTER SPECIALIST AL FORMULA TABS OR 1 TABLET DAILY 0 0 12/02/2001 Active SYSTANE PRESERVATIVE FREE 0.4-0.3 % OP SOLNIndications:Ot her anterior corneal dystrophies 1 gtt OU q2h WA 1 box 6 12/03/2008 Active CALCIUM 8746-1820 MG-UNIT PO CHEW Take 1 Tablet by mouth in the morning. Active Cinnamon 500 MG Capsule Take 2 Capsules by mouth in the morning. Active ONETOUCH ULTRASOFT LANCETS MISCIndications:DM type 2 causing renal disease ([facility]) Use as directed daily. Use up to four times a day as directed. Dx E11.9 3 Box Dosing Unit 3 09/13/2018 Active aspirin enteric coated 81 MG TBECIndications:Co ronary artery disease involving [place] coronary artery of [place] heart without angina pectoris Take 1 Tab by mouth daily. 30 Tab 11 07/17/2019 Active Loratadine 10 MG Oral Capsule Take 1 Capsule by mouth in the morning. Active Magnesium 400 MG Capsule Take 1 by mouth daily. 30 Cap 11 01/11/2020 Active acetaminophen (TYLENOL) 325 MG Tablet 2 Tablets. 04/13/2020 Active Nitroglycerin 0.4 MG Sublingual Tablet Sublingual (Nitrostat)Indicat ions:Coronary artery disease involving [place] coronary artery of [place] heart without angina pectoris,Old CT (myocardial infarction) Place 1 Tablet under the tongue every 5 minutes as needed for Pain, Chest. 25 Tablet 5 09/03/2022 Active Insulin Pen Needle 32G X 5 MMIndications:DM type 2 causing renal disease, not at goal ([facility]) use to inject lantus twice per day 200 Each 3 03/26/2023 Active OneTouch Verio In Vitro Strip (Glucose Blood)Indications: DM type 2 causing renal disease ([facility]) Check blood sugars one time daily. Dx E11.9 300 Strip 2 05/03/2023 Active Atorvastatin Calcium 40 MG Oral Tablet (Lipitor)Indicatio ns:Coronary artery disease involving c[place]o coronary artery of [place]add[place] heart without angina pectoris,Dyslipide mona TAKE 1 TABLET DAILY IN THE MORNING 90 Tablet 3 05/27/2023 Active Insulin Glargine Solostar 100 UNIT/ML Subcutaneous Solution Pen-injector (Lantus SoloStar)Indicatio ns:DM type 2 causing renal disease, not at goal ([facility]) INJECT 20 UNITS SUBCUTANEOUSLY TWICE DAILY 30 mL 2 07/08/2023 Active Digoxin 125 MCG Oral Tablet (Lanoxin)Indicatio ns:Chronic systolic heart failure ([facility]),Coronary artery disease involving [place] coronary artery of [place] heart without angina pectoris Take 1 Tablet [...] Dyslipidemia 02/18/2018 Coronary artery disease invo lving caddo coronary artery of [place]add[place] heart without angina pectoris 12/10/2017 PAF (paroxysmal [...] mRNA, LNP-s, No Pre serve, 2-Dose Series ([employer]) 07/23/2021,11/14/2020,10/24/2020 COVID-19, MRNA-LNP, 23-24, P F, 30 MCG/0.3 mL, 12 YRS AND ABOVE, IM ([facility]) 05/26/2023 Covid-19, Mrna, Lnp-s, Pf, [...] Description 02/12/2024 10:00 AM EDT Laboratory Laboratory, [address] [place] [address] [place] [address] 02/14/2024 8:00 AM EDT Office Visit Hematology/Oncology [facility] [place] [address] [place] [phone] Marquez Kolb MD [address] [place] [address] 02/14/2024 8:30 AM EDT Hem/Onc Treatment Hematology/Oncology Treatment, [place] [address] [place], [place] [phone] Jeny, Chair 9 Hem Onc [facility] 200 [facility] [place] [address] 03/08/2024 10:00 AM EDT Cardiac Studies Cardiology, [facility] 132 [place] [address] [place], Pacer Clinic [facility] 132 [place] [address] 04/05/2024 1:00 PM EDT Office Visit [facility] [address] [place] [phone] Jason West MD [address] [place] [address] Health Maintenance Due Date Last Done Comments Hepatitis C Screening 1963 COVID-19 Vaccine ( season) 2023 05/26/2023, 05/26/2022, 07/23/2021, Additional history exists Albumin/Creatinine Ratio 10/03/2023 03/2 023, 08/28/2021, 11/18/2020, Additional history exists CKD PHOS USE SMARTSET 66170 10/03/2023 03/0 09/2022, 03/17/2021, 08/18/2019, Additional history [...] Additional history exists CKD HGB USE SMARTSET 94034 02/04/202502/04, 02/05/2024, 01/31/2024, Additional history exists DXA [...] mg documented in this encounter Care Teams Straightedge Man Relationship Specialty Start Date End Date Jason West MD [address] [place], [place] [phone] PCP - General 7/8/03 documented as of this encounter
--- OUTSIDE RECORDS SUMMARY | 2024-02-23 02:44 | External Medical Summary | Summary of Care ---
Author Name Unknown Organization [facility] Address [address] [facility] [place] [address] Phone [phone] Care Team Providers Care Railway Signal Operator Name Role Phone Jason West MD Primary Care Provider [phone]- [phone] Reason for Visit * Reason Comments Chemotherapy paclitaxel/carbo * Episode Based Medications (Routine) - Authorized Specialty Diagnoses / Procedures Referred By Abdullahi melo Referred To Contact Diagnoses GE junction carcinoma (HCC) Encounter for antineoplastic chemotherapy Procedures [place] PALONOSETRON HCL [place] CARBOPLATIN INJECTION [place] PACLITAXEL INJECTION Marquez Kolb MD [address] [facility] [place] [address] Anc Hem/Onc [address] [place] [address] Referral ID Status Reason Start Date Expiration Date V isits Requested Visits Authorized [id number] Authorized 01/04/2024 07/01/2024 [id number] Encounter Details Date Type Department Care Team (Latest Contact Info) Description 01/17/2024 10:00 AM EDT Hem/Onc Treatment Hematology/Oncolog y Treatment, [address] [place] [address] Jeny, Chair 4 Hem Onc [address] [place] [address] GE junction carcinoma (HCC)*; Encounter for antineoplastic chemotherapy Allergies Active Allergy Reactions Criticality Noted Date Comments Hydroxyzine Hcl 05/12/2012 halluzinating Cetirizine & Related 02/11/1999 HALLUCINATIONS documented as of this encounter (statuses as of 02/09/2024) Medications Medication Sig Dispensed Refills Start Date End Date Status MULTIVITAMIN/LIBRARY MANAGER AL FORMULA TABS OR 1 TABLET DAILY 0 0 12/02/2001 Active SYSTANE PRESERVATIVE FREE 0.4-0.3 % OP SOLNIndications:Ot her anterior corneal dystrophies 1 gtt OU q2h WA 1 box 6 12/03/2008 Active CALCIUM 8983-2107 MG-UNIT PO CHEW Take 1 Tablet by mouth in the morning. Active Cinnamon 500 MG Capsule Take 2 Capsules by mouth in the morning. Active ONETOUCH ULTRASOFT LANCETS MISCIndications:DM type 2 causing renal disease ([facility]) Use as directed daily. Use up to four times a day as directed. Dx E11.9 3 Box Dosing Unit 3 09/13/2018 Active aspirin enteric coated 81 MG TBECIndications:Co ronary artery disease involving [place] coronary artery of [place] heart without angina pectoris Take 1 [...] Tablet Sublingual (Nitrostat)Indicat ions:Coronary artery disease involving [place] coronary artery of [place] heart without angina pectoris,Old [place] (myocardial infarction) Place 1 Tablet under the tongue every 5 minutes as needed for Pain, Chest. 25 Tablet 5 09/03/2022 Active Insulin Pen Needle 32G X 5 MMIndications:DM type 2 causing renal disease, not at goal ([facility]) use to inject lantus twice per day 200 Each 3 03/26/2023 Active OneTouch Verio In Vitro Strip (Glucose Blood)Indications: DM type 2 causing renal disease ([facility]) Check blood sugars one time daily. Dx E11.9 300 Strip 2 05/03/2023 Active Atorvastatin Calcium 40 MG Oral Tablet (Lipitor)Indicatio ns:Coronary artery disease involving [place] coronary artery of [place] heart without angina pectoris,Dyslipide mona TAKE 1 TABLET DAILY IN THE MORNING 90 Tablet 3 05/27/2023 Active Insulin Glargine Solostar 100 UNIT/ML Subcutaneous Solution Pen-injector (Lantus SoloStar)Indicatio ns:DM type 2 causing renal disease, not at goal ([facility]) INJECT 20 UNITS SUBCUTANEOUSLY TWICE DAILY 30 mL 2 07/08/2023 Active Digoxin 125 MCG Oral Tablet (Lanoxin)Indicatio ns:Chronic systolic heart failure ([facility]),Coronary artery disease involving [place] coronary artery of [place] heart without angina pectoris Take 1 [...] Dyslipidemia 02/18/2018 Coronary artery disease invo lving [place] coronary artery of [place] heart without angina pectoris 12/10/2017 PAF [...] mRNA, LNP-s, No Pre serve, 2-Dose Series ([employer] 07/23/2021,11/14/2020,10/24/2020 COVID-19, MRNA-LNP, 23-24, P F, 30 MCG/0.3 mL, 12 YRS AND ABOVE, [facility] 05/26/2023 Covid-19, Mrna, Lnp-s, [...] Description 02/12/2024 10:00 AM EDT Laboratory Laboratory, [address] [place] [address] [place] [address] 02/14/2024 8:00 AM EDT Office Visit Hematology/Oncology [facility] [place] [address] [place] [phone] Marquez Kolb MD [address] [place] [address] 02/14/2024 8:30 AM EDT Hem/Onc Treatment Hematology/Oncology Treatment, [place] [address] [place], [place] [phone] Jeny, Chair 9 Hem Onc [facility] [address] [facility] [place] [address] 03/08/2024 10:00 AM EDT Cardiac Studies Cardiology, [facility] [address] [place] [address] [place] [place] [address] [facility] [place] [address] 04/05/2024 1:00 PM EDT Office Visit [facility] [address] [place] [phone] Jason West MD [address] [place] [address] Health Maintenance Due Date Last Done Comments Hepatitis C Screening 1963 COVID-19 Vaccine ( season) 2023 05/26/2023, 05/26/2022, 07/23/2021, Additional history exists Albumin/Creatinine Ratio 10/03/2023 03/2 023, 08/28/2021, 11/18/2020, Additional history exists CKD PHOS USE SMARTSET 53467 10/03/2023 03/0 09/2022, 03/17/2021, 08/18/2019, Additional history [...] Additional history exists CKD HGB USE SMARTSET 56698 02/04/202502/04, 02/05/2024, 01/31/2024, Additional history exists DXA [...] mg documented in this encounter Care Teams Railway Signal Operator Relationship Specialty Start Date End Date Jason West MD [address] [place], [place] [id number] PCP - General 7/8/03 documented as of this encounter
--- OUTSIDE RECORDS SUMMARY | 2024-02-23 02:44 | External Medical Summary | Summary of Care ---
Author Name Unknown Organization [facility] Address [address] [place] [facility] [place] [place] [address] Phone [phone] Care Team Providers Care Hand Candy Cutter Name Role Phone Jason West MD Primary Care Provider [phone]- [phone] Reason for Visit * Reason Comments Chemotherapy TaxolCarbo * Episode Based Medications (Routine) - Authorized Specialty Diagnoses / Procedures Referred By Abdullahi melo Referred To Contact Diagnoses GE junction carcinoma (HCC) Encounter for antineoplastic chemotherapy Procedures [place] PALONOSETRON HCL [place] CARBOPLATIN INJECTION [place] PACLITAXEL INJECTION Marquez Kolb MD [address] [place] [address] Anc Hem/Onc [address] [address] Referral ID Status Reason Start Date Expiration Date V isits Requested Visits Authorized [id number] Authorized 01/04/2024 07/01/2024 [id number] Encounter Details Date Type Department Care Team (Latest Contact Info) Description 02/07/2024 1:00 PM EDT Hem/Onc Treatment Hematology/Oncolog y Treatment, [address] [address] GE junction carcinoma (HCC)*; Encounter for antineoplastic chemotherapy Allergies Active Allergy Reactions Criticality Noted Date Comments Hydroxyzine Hcl 05/12/2012 halluzinating Cetirizine & Related 02/11/1999 HALLUCINATIONS documented as of this encounter (statuses as of 02/07/2024) Medications Medication Sig Dispensed Refills Start Date End Date Status MULTIVITAMIN/FLOAT TENDER AL FORMULA TABS OR 1 TABLET DAILY 0 0 12/02/2001 Active SYSTANE PRESERVATIVE FREE 0.4-0.3 % OP SOLNIndications:Ot her anterior corneal dystrophies 1 gtt OU q2h WA 1 box 6 12/03/2008 Active CALCIUM 2273-2649 MG-UNIT PO CHEW Take 1 Tablet by mouth in the morning. Active Cinnamon 500 MG Capsule Take 2 Capsules by mouth in the morning. Active ONETOUCH ULTRASOFT LANCETS MISCIndications:DM type 2 causing renal disease ([facility]) Use as directed daily. Use up to four times a day as directed. Dx E11.9 3 Box Dosing Unit 3 09/13/2018 Active aspirin enteric coated 81 MG TBECIndications:Co ronary artery disease involving [place] coronary artery of [place] heart without angina pectoris Take 1 Tab by mouth daily. 30 Tab 11 07/17/2019 Active Loratadine 10 MG Oral Capsule Take 1 Capsule by mouth in the morning. Active Magnesium 400 MG Capsule Take 1 by mouth daily. 30 Cap 11 01/11/2020 Active acetaminophen (TYLENOL) 325 MG Tablet 2 Tablets. 04/13/2020 Active Nitroglycerin 0.4 MG Sublingual Tablet Sublingual (Nitrostat)Indicat ions:Coronary artery disease involving [place] coronary artery of [place] heart without angina pectoris,Old CT (myocardial infarction) Place 1 Tablet under the tongue every 5 minutes as needed for Pain, Chest. 25 Tablet 5 09/03/2022 Active Insulin Pen Needle 32G X 5 MMIndications:DM type 2 causing renal disease, not at goal ([facility]) use to inject lantus twice per day 200 Each 3 03/26/2023 Active OneTouch Verio In Vitro Strip (Glucose Blood)Indications: DM type 2 causing renal disease ([facility]) Check blood sugars one time daily. Dx E11.9 300 Strip 2 05/03/2023 Active Atorvastatin Calcium 40 MG Oral Tablet (Lipitor)Indicatio ns:Coronary artery disease involving [place] coronary artery of [place] heart without angina pectoris,Dyslipide mona TAKE 1 TABLET DAILY IN THE MORNING 90 Tablet 3 05/27/2023 Active Insulin Glargine Solostar 100 UNIT/ML Subcutaneous Solution Pen-injector (Lantus SoloStar)Indicatio ns:DM type 2 causing renal disease, not at goal ([facility]) INJECT 20 UNITS SUBCUTANEOUSLY TWICE DAILY 30 mL 2 07/08/2023 Active Digoxin 125 MCG Oral Tablet (Lanoxin)Indicatio ns:Chronic systolic heart failure (HCC),Coronary artery disease involving [place] coronary artery of [place] heart without angina pectoris Take 1 Tablet [...] as of this encounter (statuses as of 02/07/2024) Active Problems Problem Noted Date Diagnosed Date [...] Dyslipidemia 02/18/2018 Coronary artery disease invo lving [place] coronary artery of [place] heart without angina pectoris 12/10/2017 PAF (paroxysmal atrial fibrillation) 12/10/2017 Type 2 diabetes mellitus wit h hemoglobin A1c goal of less than 8.0% 09/08/2013 Overview: ICD-10 update of inactive term DJD, CERVICAL SPINE 04/12/2002 GENERAL OSTEOARTHROSIS documented as of this encounter (statuses as of 02/07/2024) Resolved Problems Problem Noted Date Diagnosed Date [...] as of this encounter (statuses as of 02/07/2024) Immunizations Name Administration Dates Next Due COVID-19 mRNA, LNP-s, No Pre serve, 2-Dose Series ([employer]) 07/23/2021,11/14/2020,10/24/2020 COVID-19, MRNA-LNP, 23-24, P F, 30 MCG/0.3 mL, 12 YRS AND ABOVE, IM ([employer]) 05/26/2023 Covid-19, Mrna, Lnp-s, Pf, B ivalent, [...] Sign Reading Time Taken Comments Blood Pressure 127/79 02/07/2024 10:49 AM EDT Pulse 74 02/07/2024 10:49 AM EDT Temperature 36.2 C (97.2 F) 02/07/2024 1 0:49 AM EDT Respiratory Rate 18 02/07/2024 10:4 9 AM EDT Oxygen Saturation 94% 02/07/2024 10: 49 AM EDT Inhaled Oxygen Concentration - - Weight 94.3 kg (207 lb 12.8 oz) 024 10:49 AM EDT Height - - Body Mass Index 36.81 12/17/2023 12:47 PM EDT documented in this encounter Nursing Notes * Christie Sotelo RN - 02/07/2024 2:09 PM EDT Chair 2 Chemotherapy/Immunotherapy agents: CARBOPLATIN and TAXOL Consent for chemotherapy drug treatment complete, dated, and signed? yes, date - 01/04/24 Treatment lab parameters met? Yes Has treatment weight changed > than 10%? No Treatment preauthorized? Yes VITALS Filed Vitals: 02/07/24 1049 BP: 127/79 Pulse: 74 Resp: 18 Temp: 36.2 C (97.2 F) TempSrc: Tympanic SpO2: 94% Weight: 94.3 kg (207 lb 12.8 oz) Urine protein: N/A Patient education completed for treatment? Yes Blood transfusion consent signed and complete? NA Return appointment scheduled? Yes Patient had provider visit today? No - If no provider visit must complete Pretreatment Assessment PRE-TREATMENT ASSESSMENT: NEURO: denies symptoms, numbness or tingling: stable, and fatigue:pt reports "sleeping all the time" CV/RESP: denies symptoms GI/: nausea: pt reports nausea with most foods she tries to eat, vomiting: pt has difficulty with swallowing, and occasionally vomits when trying to eat, and decreased appetite: ongoing with treatment OTHER: denies any additional symptoms PAIN: 0 PIV established; NSS infusing. Safety and Risk for Injury Patient will remain free from injury. Ensure appropriate safety devices are available. Provide and maintain safe environment. Functional Status: Functional status at today's visit: Ambulatory and capable of all selfcare but unable to carry out any work activities. Up and about more than 50% of waking hours The drug name, dose, infusion volume, rate and route of administration, expiration date and time, appearance and physical integrity of the drug and rate set on the pump and sequencing of drug administration (as applicable) were verified by me and second sign-in RN. Patient was assessed for symptoms or adverse side effects during treatment. Pt completed treatment without issues. PIV removed. Goals: Pt completed treatment without issues. Possible barriers to meeting goals: pt is a high fall risk Stability of the patient: Moderately stable - low risk of patient condition declining or worsening Summary regarding today's goals: Met: Pt Pt remained free from injury during treatment today. Discharged in stable condition. * Christie Sotelo RN - 02/07/2024 10:59 AM EDT Labs reviewed with Dr. Kolb;okay to proceed with treatment today. documented in this encounter Plan of Treatment Upcoming Encounters Date Type Department Care Team (Late st Contact Info) Description 02/12/2024 10:00 AM EDT [facility] [address] [facility] [place] [phone] [place] [facility] [address] [facility] [place] [address] 02/14/2024 8:00 AM EDT Office Visit Hematology/Oncology [facility] [address] [place] [phone] Marquez Kolb MD [address] [place] [address] 02/14/2024 8:30 AM EDT Hem/Onc Treatment Hematology/Oncology Treatment, [place] [address] [place], [place] [phone] Jeny, Chair [address] [facility] [address] [facility] [place] [address] 03/08/2024 10:00 AM EDT Cardiac Studies Cardiology, [facility] [address] [facility] [place] [address] [facility] [address] [facility] [place] [address] 04/05/2024 1:00 PM EDT Office Visit [facility] [address] [place] [phone] Jason West MD [address] [place] [address] Health Maintenance Due Date Last Done Comments Hepatitis C Screening 1963 COVID-19 Vaccine (2022- season) 2023 05/26/2023, 05/26/2022, 07/23/2021, Additional history exists Albumin/Creatinine Ratio 10/03/20232 023, 08/28/2021, 11/18/2020, Additional history exists CKD PHOS USE SMARTSET 45478 10/03/2023 03/0 09/2022, 03/17/2021, 08/18/2019, Additional history [...] Additional history exists CKD HGB USE SMARTSET 58291 02/04/202502/04, 02/05/2024, 01/31/2024, Additional history exists DXA [...] ONCE PRN Other, Hypersensitivity Reaction, Starting on Wed02/07/24 at 1059, Until Wed02/08/24 at 1058, For 24 hours EPINEPHrine 1 MG/ML inj 0.3 mg 0.3 mg, Intramuscular, ONCE PRN Other, Hypersensitivity Reaction or Anaphylaxis, Starting on Wed02/07/24 at 1059, Until Wed02/08/24 at 1058, For 24 hours hEParin 100 UNIT/ML Lock Flush inj 500 Units 500 Units (5 mL), IV Lock, PRN Other, IV Flush, Starting on Wed02/07/24 at 1059, Until Wed02/08/24 at 1058, For 24 hours, Do not flush if lock, PICC, or central line not in place; IV infusing or unable to flush. Hydrocortisone Sod Suc (PF) (Solu-Cortef) inj 100 mg 100 mg, IV Push, ONCE PRN Other, Hypersensitivity Reaction, Starting on Wed02/07/24 at 1059, Until Wed02/08/24 at 1058, For 24 hours LORAzepam (Ativan) tab 0.5 mg 0.5 mg, Oral, ONCE PRN Anxiety, Nausea, Starting on Wed02/07/24 at 1200, Until Discontinued NSS infusion Intravenous, at 50 mL/hr, PRN, Starting on Wed02/07/24 at 1200, Until Discontinued, Maintenance line Start Infusion 02/07/2024 11:02 AM EDT 50 mL/hr oxygen GAS Inhalation, OXYGEN, First dose on Wed02/07/24 at 1130, Until Discontinued, Device/Managed by: Low Flow Device, [...] Push, PRN Other, IV Flush, Starting on Wed02/07/24 at 1059, Until Wed02/08/24 at 1058, For 24 hours, Do not flush if [...] PROTECT FROM LIGHT, ONCE, 1 dose, On Wed02/07/24 at 1245 Start Infusion 02/07/2024 1:41 PM EDT 198 mg 510 mL/hr dexAMETHasone (Decadron) tab 12 mg 12 mg, Oral, ONCE, On Wed02/07/24 at 1115, For 1 dose Given 02/07/2024 12:09 PM EDT 12 mg diphenhydrAMINE (Benadryl) inj 25 mg 25 mg, IV Push, ONCE, On Wed02/07/24 at 1115, For 1 dose Given 02/07/2024 12:09 PM EDT 25 mg Famotidine (Pepcid) tab 20 mg 20 mg, Oral, ONCE, On Wed02/07/24 at 1115, For 1 dose Given 02/07/2024 12:09 PM EDT 20 mg PACLitaxel (Taxol) 106 mg in NSS 250 mL infusion 106 mg (50 mg/m2 2.12 m2 Treatment Plan BSA from Recorded weight), IV Piggyback, ONCE, 1 dose, On Wed02/07/24 at 1145, Administer over 60 Minutes, Administer through 0.22 micron low protein binding filter! Start Infusion 02/07/2024 12:37 PM EDT 106 mg 255 mL/hr Palonosetron (Aloxi) inj SOLN 0.25 mg 0.25 mg, IV Push, ONCE, On Wed02/07/24 at 1115, For 1 dose, Restricted per S antiemetic guidelines Given 02/07/2024 12:08 PM EDT 0.25 mg documented in this encounter Care Teams Hand Candy Cutter Relationship Specialty Start Date End Date Jason West MD [address] [facility] [place] [address] PCP - General 02/06/03 documented as of this encounter
--- OUTSIDE RECORDS SUMMARY | 2024-02-23 02:45 | External Medical Summary | Summary of Care ---
Author Name Unknown Organization [facility] Address [address] [place] [facility] [address] Phone [phone] Care Team Providers Care Yarn Sorter Name Role Phone Jason West MD Primary Care Provider [phone]- [phone] Reason for Visit * Reason Comments Chemotherapy C2D1 Taxol/Carboplat in * Episode Based Medications (Routine) - Authorized Specialty Diagnoses / Procedures Referred By Abdullahi melo Referred To Contact Diagnoses GE junction carcinoma (HCC) Encounter for antineoplastic chemotherapy Procedures [place] PALONOSETRON HCL [place] CARBOPLATIN INJECTION [place] PACLITAXEL INJECTION Marquez Kolb MD 200 [facility] [place] [address] Anc Hem/Onc [address] [address] Referral ID Status Reason Start Date Expiration Date V isits Requested Visits Authorized [id number] Authorized 01/04/2024 07/01/2024 [id number] Encounter Details Date Type Department Care Team (Latest Contact Info) Description 01/24/2024 11:00 AM EDT Hem/Onc Treatment Hematology/Oncolog y Treatment, [address] [address] Jeny, Chair 2 Hem Onc Scenery [address] [place] [address] GE junction carcinoma (HCC)*; Encounter for antineoplastic chemotherapy Allergies Active Allergy Reactions Criticality Noted Date Comments Hydroxyzine Hcl 05/12/2012 halluzinating Cetirizine & Related 02/11/1999 HALLUCINATIONS documented as of this encounter (statuses as of 02/06/2024) Medications Medication Sig Dispensed Refills Start Date End Date Status MULTIVITAMIN/PHONE CIRCUIT OPERATOR AL FORMULA TABS OR 1 TABLET DAILY 0 0 12/02/2001 Active SYSTANE PRESERVATIVE FREE 0.4-0.3 % OP SOLNIndications:Ot her anterior corneal dystrophies 1 gtt OU q2h WA 1 box 6 12/03/2008 Active CALCIUM 2289-6876 MG-UNIT PO CHEW Take 1 Tablet by [...] 81 MG TBECIndications:Co ronary artery disease involving [place] coronary artery of [place] heart without angina pectoris Take 1 Tab by mouth daily. 30 Tab 11 07/17/2019 Active Loratadine 10 MG Oral Capsule Take 1 Capsule by mouth in the morning. Active Magnesium 400 MG Capsule Take 1 by mouth daily. 30 Cap 11 01/11/2020 Active acetaminophen (TYLENOL) 325 MG Tablet 2 Tablets. 04/13/2020 Active Nitroglycerin 0.4 MG Sublingual Tablet Sublingual (Nitrostat)Indicat ions:Coronary artery disease involving [place] coronary artery of [place] heart without angina pectoris,Old [place] (myocardial infarction) [...] Oral Tablet (Lipitor)Indicatio ns:Coronary artery disease involving [place] coronary artery of [place] heart without angina pectoris,Dyslipide mona TAKE 1 TABLET DAILY IN THE MORNING 90 Tablet 3 05/27/2023 Active Insulin Glargine Solostar 100 UNIT/ML Subcutaneous Solution Pen-injector (Lantus SoloStar)Indicatio ns:DM type 2 causing renal disease, not at goal ([facility]) INJECT 20 UNITS SUBCUTANEOUSLY TWICE DAILY 30 mL 2 07/08/2023 Active Digoxin 125 MCG Oral Tablet (Lanoxin)Indicatio ns:Chronic systolic heart failure ([facility]),Coronary artery disease involving [place] coronary artery of [place] heart without angina pectoris Take 1 Tablet [...] as of this encounter (statuses as of 02/06/2024) Active Problems Problem Noted Date Diagnosed Date [...] Dyslipidemia 02/18/2018 Coronary artery disease invo lving [place] coronary artery of [place] heart without angina pectoris 12/10/2017 PAF (paroxysmal atrial fibrillation) 12/10/2017 Type 2 diabetes mellitus wit h hemoglobin A1c goal of less than 8.0% 09/08/2013 Overview: ICD-10 update of inactive term DJD, CERVICAL SPINE 04/12/2002 GENERAL OSTEOARTHROSIS documented as of this encounter (statuses as of 02/06/2024) Resolved Problems Problem Noted Date Diagnosed Date [...] as of this encounter (statuses as of 02/06/2024) Immunizations Name Administration Dates Next Due COVID-19 mRNA, LNP-s, No Pre serve, 2-Dose Series ([employer]) 07/23/2021,11/14/2020,10/24/2020 COVID-19, MRNA-LNP, 23-24, P F, 30 MCG/0.3 mL, 12 YRS AND ABOVE, IM ([employer]-Comirnat) 05/26/2023 Covid-19, Mrna, Lnp-s, Pf, B ivalent, [...] Sign Reading Time Taken Comments Blood Pressure 119/86 01/24/2024 10:15 AM EDT Pulse 82 01/24/2024 10:15 AM EDT Temperature 36.6 C (97.9 F) 01/24/2024 1 0:15 AM EDT Respiratory Rate 18 01/24/2024 10:1 5 AM EDT Oxygen Saturation 97% 01/24/2024 10: 15 AM EDT Inhaled Oxygen Concentration - - Weight 97.4 kg (214 lb 12.8 oz) 024 10:15 AM EDT Height - - Body Mass Index 38.05 12/17/2023 12:47 PM EDT documented in this encounter Nursing Notes * Sarah Monroe, RN - 01/24/2024 1:31 PM EDT Goals: Patient will remain free from injury. Possible barriers to meeting goals: ambulation with IV pole Stability of the patient: Moderately stable - low risk of patient condition declining or worsening Summary regarding today's goals: Met: patient without injury during treatment today. Pt tolerated infusions well. No complaints. Discharged in stable condition. * Sarah Monroe RN - 01/24/2024 11:30 AM EDT Chair 11 Pt here for C2D1 Taxol/Carboplatin. No complaints. States she has had an intermittent stomach ache since treatment that resolves quickly after drinking hot tea. Denies any other side effects from first treatment. Chemotherapy/Immunotherapy agents: CARBOPLATIN and TAXOL Consent for chemotherapy drug treatment complete, dated, and signed? yes, date - 01/03/22 Treatment lab parameters met? Yes Has treatment weight changed > than 10%? No Treatment preauthorized? Yes VITALS Filed Vitals: 01/24/24 1015 BP: 119/86 Pulse: 82 Resp: 18 Temp: 36.6 C (97.9 F) TempSrc: Tympanic SpO2: 97% Weight: 97.4 kg (214 lb 12.8 oz) Urine protein: N/A Patient [...] symptoms CV/RESP: denies symptoms GI/: denies symptoms and abdominal pain or tenderness: as above OTHER: denies any additional symptoms PAIN: 0 Safety and Risk for Injury Patient will remain free from injury. Ensure appropriate safety devices are available. Provide and maintain safe environment. documented in this encounter Plan of Treatment Upcoming Encounters Date Type Department Care Team (Late st Contact Info) Description 02/07/2024 1:00 PM EDT Hem/Onc Treatment Hematology/Oncology Treatment, [place] [address] [place] [address] 02/12/2024 10:00 AM EDT Laboratory Laboratory, [facility] [address] [place] [address] [place], [facility] 132 [facility] [place] [address] 02/14/2024 8:00 AM EDT Office Visit Hematology/Oncology [facility] Jeny [place] [address] [place] [phone] Marquez Kolb MD [address] [place] [address] 02/14/2024 8:30 AM EDT Hem/Onc Treatment Hematology/Oncology Treatment, [place] [address] [place] [phone] Jeny, Chair 9 Hem Onc [facility] 200 [facility] [place] [address] 03/08/2024 10:00 AM EDT Cardiac Studies Cardiology, [facility] [address] [place] [address] [place] [facility] 132 [facility] [place] [address] 04/05/2024 1:00 PM EDT Office Visit [facility] [address] [place] [phone] Jason West MD [address] [place] [address] Health Maintenance Due Date Last Done Comments Hepatitis C Screening 1963 COVID-19 Vaccine (2022- season) 2023 05/26/2023, 05/26/2022, 07/23/2021, Additional history exists Albumin/Creatinine Ratio 10/03/2023 023, 08/28/2021, 11/18/2020, Additional history exists CKD PHOS USE SMARTSET 93656 10/03/2023 03/0 09/2022, 03/17/2021, 08/18/2019, Additional history [...] Additional history exists CKD HGB USE SMARTSET 61711 02/04/202502/04, 02/05/2024, 01/31/2024, Additional history exists DXA [...] PROTECT FROM LIGHT, ONCE, 1 dose, On Wed01/24/24 at 1215 Start Infusion 01/24/2024 12:31 PM EDT 198 mg 510 mL/hr dexAMETHasone (Decadron) tab 12 mg 12 mg, Oral, ONCE, On Wed01/24/24 at 1100, For 1 dose Given 01/24/2024 10:43 AM EDT 12 mg diphenhydrAMINE (Benadryl) inj 25 mg 25 mg, IV Push, ONCE, On Wed01/24/24 at 1100, For 1 dose Given 01/24/2024 11:03 AM EDT 25 mg Famotidine (Pepcid) tab 20 mg 20 mg, Oral, ONCE, On Wed01/24/24 at 1100, For 1 dose Given 01/24/2024 10:43 AM EDT 20 mg NSS infusion Intravenous, at 50 mL/hr, PRN, Starting on Wed01/24/24 at 1145, Until Wed01/24/24 at 1742, Maintenance line Start Infusion 01/24/2024 11:01 AM EDT 50 mL/hr PACLitaxel (Taxol) 106 mg in NSS 250 mL infusion 106 mg (50 mg/m2 2.12 m2 Treatment Plan BSA from Recorded weight), IV Piggyback, ONCE, 1 dose, On Wed01/24/24 at 1215, Administer over 60 Minutes, Administer through 0.22 micron low protein binding filter! Start Infusion 01/24/2024 11:22 AM EDT 106 mg 255 mL/hr Palonosetron (Aloxi) inj SOLN 0.25 mg 0.25 mg, IV Push, ONCE, On Wed01/24/24 at 1100, For 1 dose, Restricted per S antiemetic guidelines Given 01/24/2024 11:01 AM EDT 0.25 mg documented in this encounter Care Teams Yarn Sorter Relationship Specialty Start Date End Date Jason West MD [address] [place] [address] PCP - General 02/06/03 documented as of this encounter
--- OUTSIDE RECORDS SUMMARY | 2024-02-23 02:45 | External Medical Summary | Summary of Care ---
Author Name Unknown Organization [facility] Address [address] [place] [place] [address] Phone [phone] Care Team Providers Care Bench Assembler Operator Name Role Phone Jason West MD Primary Care Provider [phone]- [phone] Reason for Visit * Reason Comments Chemotherapy C2D1 Taxol/Carboplat in * Episode Based Medications (Routine) - Authorized Specialty Diagnoses / Procedures Referred By Abdullahi melo Referred To Contact Diagnoses GE junction carcinoma (HCC) Encounter for antineoplastic chemotherapy Procedures [place] PALONOSETRON HCL CA CARBOPLATIN INJECTION CA PACLITAXEL INJECTION Marquez Kolb MD 200 [facility] [place] [id number] Anc Hem/Onc [address] [address] Referral ID Status Reason Start Date Expiration Date V isits Requested Visits Authorized [id number] Authorized 01/04/2024 07/01/[phone] Encounter Details Date Type Department Care Team (Latest Contact Info) Description 01/24/2024 11:00 AM EDT Hem/Onc Treatment Hematology/Oncolog y Treatment, [address] [address] Jeny, Chair 2 Hem Onc Scenery [address] [place] [id number] GE junction carcinoma (HCC)*; Encounter for antineoplastic chemotherapy Allergies Active Allergy Reactions Criticality Noted Date Comments Hydroxyzine Hcl 05/12/2012 halluzinating Cetirizine & Related 02/11/1999 HALLUCINATIONS documented as of this encounter (statuses as of 02/06/2024) Medications Medication Sig Dispensed Refills Start Date End Date Status MULTIVITAMIN/CIGARETTE PACKING MACHINE OPERATOR AL FORMULA TABS OR 1 TABLET DAILY 0 0 12/02/2001 Active SYSTANE PRESERVATIVE FREE 0.4-0.3 % OP SOLNIndications:Ot her anterior corneal dystrophies 1 gtt OU q2h WA 1 box 6 12/03/2008 Active CALCIUM 8849-2603 MG-UNIT PO CHEW Take 1 Tablet by mouth in the morning. Active Cinnamon 500 MG Capsule Take 2 Capsules by mouth in the morning. Active ONETOUCH ULTRASOFT LANCETS MISCIndications:DM type 2 causing renal disease ([facility]) Use as directed daily. Use up to four times a day as directed. Dx E11.9 3 Box Dosing Unit 3 09/13/2018 Active aspirin enteric coated 81 MG TBECIndications:Co ronary artery disease involving [place] coronary artery [...] Tablet Sublingual (Nitrostat)Indicat ions:Coronary artery disease involving [place] coronary artery of [place] heart without angina pectoris,Old [place] (myocardial infarction) Place 1 Tablet under the [...] Blood)Indications: DM type 2 causing renal disease ([facility]) Check blood sugars one time daily. Dx E11.9 300 Strip 2 05/03/2023 Active Atorvastatin Calcium 40 MG Oral Tablet (Lipitor)Indicatio ns:Coronary artery disease involving [place] coronary artery of [place] heart without angina pectoris,Dyslipide mona TAKE 1 TABLET DAILY IN THE MORNING 90 Tablet 3 05/27/2023 Active Insulin Glargine Solostar 100 UNIT/ML Subcutaneous Solution Pen-injector (Lantus SoloStar)Indicatio ns:DM type 2 causing renal disease, not at goal ([facility]) INJECT 20 UNITS SUBCUTANEOUSLY TWICE DAILY 30 mL 2 07/08/2023 Active Digoxin 125 MCG Oral Tablet (Lanoxin)Indicatio ns:Chronic systolic heart failure ([facility]),Coronary artery disease involving [place] coronary artery [...] single episode, in full remission 12/07/2018 [place] (myocardial infarction) 03/31/2018 Heart failure, systolic, due [...] mRNA, LNP-s, No Pre serve, 2-Dose Series ([employer]) 07/23/2021,11/14/2020,10/24/2020 COVID-19, MRNA-LNP, 23-24, P F, 30 MCG/0.3 mL, 12 YRS AND ABOVE, IM ([employer]-Comirnat) 05/26/2023 Covid-19, Mrna, Lnp-s, Pf, B ivalent, [...] 1:00 PM EDT Hem/Onc Treatment Hematology/Oncology Treatment, [place] [address] [place] [address] 02/12/2024 10:00 AM EDT Laboratory Laboratory, [facility] [address] [place], [facility] 132 [facility] [place] [address] 02/14/2024 8:00 AM EDT Office Visit Hematology/Oncology [facility] Jeny [place] [address] [place] [phone] Marquez Kolb MD [address] [place] [address] 02/14/2024 8:30 AM EDT Hem/Onc Treatment Hematology/Oncology Treatment, [place] [address] [place] [phone] Jeny, Chair 9 Hem Onc [facility] 200 [facility] [place] [address] 03/08/2024 10:00 AM EDT Cardiac Studies Cardiology, [facility] [address] Del[place] [facility] 132 [facility] [place] [address] 04/05/2024 1:00 PM EDT Office Visit [facility] [address] [place] [phone] Jason West MD [address] [place] [address] Health Maintenance Due Date Last Done Comments Hepatitis C Screening 1963 COVID-19 Vaccine (2022- season) 2023 05/26/2023, 05/26/2022, 07/23/2021, Additional history exists Albumin/Creatinine Ratio 10/03/2023 023, 08/28/2021, 11/18/2020, Additional history exists CKD PHOS USE SMARTSET 57981 10/03/2023 03/0 09/2022, 03/17/2021, 08/18/2019, Additional history [...] Additional history exists CKD HGB USE SMARTSET 26585 02/04/202502/04, 02/05/2024, 01/31/2024, Additional history exists DXA [...] mg documented in this encounter Care Teams Bench Assembler Operator Relationship Specialty Start Date End Date Jason West MD [address] [place] [address] PCP - General 02/06/03 documented as of this encounter
--- OUTSIDE RECORDS SUMMARY | 2024-02-23 02:45 | External Medical Summary | Summary of Care ---
Author Name Unknown Organization [facility] Address [address] [facility] [place] [address] Phone [phone] Care Team Providers Care Aviation Safety Inspector Name Role Phone Jason West MD Primary Care Provider [phone]- [phone] Reason for Visit * Reason Comments Chemotherapy C2D1 Taxol/Carboplat in * Episode Based Medications (Routine) - Authorized Specialty Diagnoses / Procedures Referred By Abdullahi melo Referred To Contact Diagnoses GE junction carcinoma (HCC) Encounter for antineoplastic chemotherapy Procedures [place] PALONOSETRON HCL [place] CARBOPLATIN INJECTION [place] PACLITAXEL INJECTION Marquez Kolb MD 200 [facility] [place] [address] Anc Hem/Onc [address] [address] Referral ID Status Reason Start Date Expiration Date V isits Requested Visits Authorized [id number] Authorized 01/04/2024 07/01/[phone] Encounter Details Date Type Department Care Team (Latest Contact Info) Description 01/24/2024 11:00 AM EDT Hem/Onc Treatment Hematology/Oncolog y Treatment, [address] [address] Jeny, Chair 2 Hem Onc Scenery [address] [place] [address] GE junction carcinoma (HCC)*; Encounter for antineoplastic chemotherapy Allergies Active Allergy Reactions Criticality Noted Date Comments Hydroxyzine Hcl 05/12/2012 halluzinating Cetirizine & Related 02/11/1999 HALLUCINATIONS documented as of this encounter (statuses as of 02/07/2024) Medications Medication Sig Dispensed Refills Start Date End Date Status MULTIVITAMIN/TIRE LAYER AL FORMULA TABS OR 1 TABLET DAILY 0 0 12/02/2001 Active SYSTANE PRESERVATIVE FREE 0.4-0.3 % OP SOLNIndications:Ot her anterior corneal dystrophies 1 gtt OU q2h WA 1 box 6 12/03/2008 Active CALCIUM 2735-4902 MG-UNIT PO CHEW Take 1 Tablet by mouth in the morning. Active Cinnamon 500 MG Capsule Take 2 Capsules by mouth in the morning. Active ONETOUCH ULTRASOFT LANCETS MISCIndications:DM type 2 causing renal disease ([facility]) Use as directed daily. Use up to four times a day as directed. Dx E11.9 3 Box Dosing Unit 3 09/13/2018 Active aspirin enteric coated 81 MG TBECIndications:Co ronary artery disease involving [place] coronary artery of [place] heart without angina pectoris Take 1 Tab by mouth daily. 30 Tab 11 07/17/2019 Active Loratadine 10 MG Oral Capsule Take 1 Capsule by mouth in the morning. Active Magnesium 400 MG Capsule Take 1 by mouth daily. 30 Cap 11 01/11/2020 Active acetaminophen (TYLENOL) 325 MG Tablet 2 Tablets. 04/13/2020 Active Nitroglycerin 0.4 MG Sublingual Tablet Sublingual (Nitrostat)Indicat ions:Coronary artery disease involving [place] coronary artery of [place] heart without angina pectoris,Old [place] (myocardial infarction) Place 1 Tablet under the tongue every 5 minutes as needed for Pain, Chest. 25 Tablet 5 09/03/2022 Active Insulin Pen Needle 32G X 5 MMIndications:DM type 2 causing renal disease, not at goal ([facility]) use to inject lantus twice per day 200 Each 3 03/26/2023 Active OneTouch Verio In Vitro Strip (Glucose Blood)Indications: DM type 2 causing renal disease ([facility]) Check blood sugars one time daily. Dx E11.9 300 Strip 2 05/03/2023 Active Atorvastatin Calcium 40 MG Oral Tablet (Lipitor)Indicatio ns:Coronary artery disease involving [place] coronary artery of [place] heart without angina pectoris,Dyslipide mona TAKE 1 TABLET DAILY IN THE MORNING 90 Tablet 3 05/27/2023 Active Insulin Glargine Solostar 100 UNIT/ML Subcutaneous Solution Pen-injector (Lantus SoloStar)Indicatio ns:DM type 2 causing renal disease, not at goal ([facility]) INJECT 20 UNITS SUBCUTANEOUSLY TWICE DAILY 30 mL 2 07/08/2023 Active Digoxin 125 MCG Oral Tablet (Lanoxin)Indicatio ns:Chronic systolic heart failure ([facility]),Coronary artery disease involving [place] coronary artery of [place] heart without angina pectoris Take 1 Tablet [...] Dyslipidemia 02/18/2018 Coronary artery disease invo lving [place] coronary artery of [place] heart without angina pectoris 12/10/2017 PAF (paroxysmal [...] mRNA, LNP-s, No Pre serve, 2-Dose Series ([employer]) 07/23/2021,11/14/2020,10/24/2020 COVID-19, MRNA-LNP, 23-24, P F, 30 MCG/0.3 mL, 12 YRS AND ABOVE, IM ([facility]-Comirnat) 05/26/2023 Covid-19, Mrna, Lnp-s, Pf, B ivalent, [...] complaints. Discharged in stable condition. * Sarah Monroe, RN - 01/24/2024 11:30 AM EDT Chair [...] Description 02/12/2024 10:00 AM EDT Laboratory Laboratory, [facility] [address] [place] [phone] [facility] 132 [facility] [place] [address] 02/14/2024 8:00 AM EDT Office Visit Hematology/Oncology [facility] Jeny [place] [address] [place] [phone] Marquez Kolb MD [address] [place] [address] 02/14/2024 8:30 AM EDT Hem/Onc Treatment Hematology/Oncology Treatment, [place] [address] [place], [place] [phone] Jeny, Chair 9 Hem Onc [facility] [address] [place] [address] 03/08/2024 10:00 AM EDT Cardiac Studies Cardiology, [facility] 132 [facility] [place] [address] [facility] [address] [facility] [address] 04/05/2024 1:00 PM EDT Office Visit [facility] [address] [place] [phone] Jason West MD [address] [place] [address] Health Maintenance Due Date Last Done Comments Hepatitis C Screening 1963 COVID-19 Vaccine ( season) 2023 05/26/2023, 05/26/2022, 07/23/2021, Additional history exists Albumin/Creatinine Ratio 10/03/202310/02/2 023, 08/28/2021, 11/18/2020, Additional history exists CKD PHOS USE SMARTSET 70282 10/03/2023 03/0 09/2022, 03/17/2021, 08/18/2019, Additional history [...] Additional history exists CKD HGB USE SMARTSET 97964 02/04/202502/04, 02/05/2024, 01/31/2024, Additional history exists DXA [...] mg documented in this encounter Care Teams Aviation Safety Inspector Relationship Specialty Start Date End Date Jason West MD [address], [place] [phone] PCP - General 02/06/03 documented as of this encounter
--- OUTSIDE RECORDS SUMMARY | 2024-02-23 02:45 | External Medical Summary | Summary of Care ---
Author Name Unknown Organization [facility] Address [address] [facility] [place] [address] Phone [phone] Care Team Providers Care Physician Specialist Name Role Phone Jason West MD Primary Care Provider [phone]- [phone] Reason for Visit * Reason Comments Chemotherapy C2D1 Taxol/Carboplat in * Episode Based Medications (Routine) - Authorized Specialty Diagnoses / Procedures Referred By Abdullahi melo Referred To Contact Diagnoses GE junction carcinoma (HCC) Encounter for antineoplastic chemotherapy Procedures [place] PALONOSETRON HCL [place] CARBOPLATIN INJECTION [place] PACLITAXEL INJECTION Marquez Kolb MD 200 [facility] [place] [address] Anc Hem/Onc [address] [address] Referral ID Status Reason Start Date Expiration Date V isits Requested Visits Authorized [id number] Authorized 01/04/2024 07/01/2024 [id number] Encounter Details Date Type Department Care Team (Latest Contact Info) Description 01/24/2024 11:00 AM EDT Hem/Onc Treatment Hematology/Oncolog y Treatment, [address] [address] Jeny, Chair 2 Hem Onc Scenery [address] [place] [address] GE junction carcinoma (HCC)*; Encounter for antineoplastic chemotherapy Allergies Active Allergy Reactions Criticality Noted Date Comments Hydroxyzine Hcl 05/12/2012 halluzinating Cetirizine & Related 02/11/1999 HALLUCINATIONS documented as of this encounter (statuses as of 02/07/2024) Medications Medication Sig Dispensed Refills Start Date End Date Status MULTIVITAMIN/PERMIT AGENT AL FORMULA TABS OR 1 TABLET DAILY 0 0 12/02/2001 Active SYSTANE PRESERVATIVE FREE 0.4-0.3 % OP SOLNIndications:Ot her anterior corneal dystrophies 1 gtt OU q2h WA 1 box 6 12/03/2008 Active CALCIUM 5120-6856 MG-UNIT PO CHEW Take 1 Tablet by mouth in the morning. Active Cinnamon 500 MG Capsule Take 2 Capsules by mouth in the morning. Active ONETOUCH ULTRASOFT LANCETS MISCIndications:DM type 2 causing renal disease ([facility]) Use as directed daily. Use up to four times a day as directed. Dx E11.9 3 Box Dosing Unit 3 09/13/2018 Active aspirin enteric coated 81 MG TBECIndications:Co ronary artery disease involving [place] coronary artery of [place] heart without angina pectoris Take 1 Tab by mouth daily. 30 Tab 11 07/17/2019 Active Loratadine 10 MG Oral Capsule Take 1 Capsule by mouth in the morning. Active Magnesium 400 MG Capsule Take 1 by mouth daily. 30 Cap 11 01/11/2020 Active acetaminophen (TYLENOL) 325 MG Tablet 2 Tablets. 04/13/2020 Active Nitroglycerin 0.4 MG Sublingual Tablet Sublingual (Nitrostat)Indicat ions:Coronary artery disease involving [place] coronary artery of [place] heart without angina pectoris,Old [place] (myocardial infarction) Place 1 Tablet under the tongue every 5 minutes as needed for Pain, Chest. 25 Tablet 5 09/03/2022 Active Insulin Pen Needle 32G X 5 MMIndications:DM type 2 causing renal disease, not at goal ([facility]) use to inject lantus twice per day 200 Each 3 03/26/2023 Active OneTouch Verio In Vitro Strip (Glucose Blood)Indications: DM type 2 causing renal disease ([facility]) Check blood sugars one time daily. Dx E11.9 300 Strip 2 05/03/2023 Active Atorvastatin Calcium 40 MG Oral Tablet (Lipitor)Indicatio ns:Coronary artery disease involving [place] coronary artery of [place] heart without angina pectoris,Dyslipide mona TAKE 1 TABLET DAILY IN THE MORNING 90 Tablet 3 05/27/2023 Active Insulin Glargine Solostar 100 UNIT/ML Subcutaneous Solution Pen-injector (Lantus SoloStar)Indicatio ns:DM type 2 causing renal disease, not at goal ([facility]) INJECT 20 UNITS SUBCUTANEOUSLY TWICE DAILY 30 mL 2 07/08/2023 Active Digoxin 125 MCG Oral Tablet (Lanoxin)Indicatio ns:Chronic systolic heart failure ([facility]),Coronary artery disease involving [place] coronary artery of [place] heart without angina pectoris Take 1 Tablet [...] Dyslipidemia 02/18/2018 Coronary artery disease invo lving [place] coronary artery of [place] heart without angina pectoris 12/10/2017 PAF (paroxysmal [...] mRNA, LNP-s, No Pre serve, 2-Dose Series (People [employer]) 07/23/2021,11/14/2020,10/24/2020 COVID-19, MRNA-LNP, 23-24, P F, 30 MCG/0.3 mL, 12 YRS AND ABOVE, IM ([employer]-Comirnat) 05/26/2023 Covid-19, Mrna, Lnp-s, Pf, B ivalent, [...] Description 02/12/2024 10:00 AM EDT Laboratory Laboratory, [facility] [address] [place] [place] [phone] [facility] 132 [facility] [place] [address] 02/14/2024 8:00 AM EDT Office Visit Hematology/Oncology [facility] [place]y [place] [address] [place] [phone] Marquez Kolb MD [address] [place] [address] 02/14/2024 8:30 AM EDT Hem/Onc Treatment Hematology/Oncology Treatment, [place] [address] [place], [place] [phone] Jeny, Chair 9 Hem Onc [facility] [address] [place] [address] 03/08/2024 10:00 AM EDT Cardiac Studies Cardiology, [facility] 132 [facility] [place] [address] [facility] 132 [facility] [address] 04/05/2024 1:00 PM EDT Office Visit [facility] [address] [place] [phone] Jason West MD [address] [place] [address] Health Maintenance Due Date Last Done Comments Hepatitis C Screening 1963 COVID-19 Vaccine ( season) 2023 05/26/2023, 05/26/2022, 07/23/2021, Additional history exists Albumin/Creatinine Ratio 10/03/202310/02/2 023, 08/28/2021, 11/18/2020, Additional history exists CKD PHOS USE SMARTSET 32429 10/03/2023 03/0 09/2022, 03/17/2021, 08/18/2019, Additional history [...] Additional history exists CKD HGB USE SMARTSET 87301 02/04/202502/04, 02/05/2024, 01/31/2024, Additional history exists DXA [...] mg documented in this encounter Care Teams Physician Specialist Relationship Specialty Start Date End Date Jason West MD [address] [place], [place] [phone] PCP - General 02/06/03 documented as of this encounter
--- OUTSIDE RECORDS SUMMARY | 2024-02-23 02:45 | External Medical Summary | Summary of Care ---
Author Name Unknown Organization [facility] Address [address] [place] [facility] [place] [address] Phone [phone] Care Team Providers Care Skiagrapher Name Role Phone Jason West MD Primary Care Provider [phone]- [phone] Reason for Visit * Reason Comments Chemotherapy C2D1 Taxol/Carboplat in * Episode Based Medications (Routine) - Authorized Specialty Diagnoses / Procedures Referred By Abdullahi melo Referred To Contact Diagnoses GE junction carcinoma (HCC) Encounter for antineoplastic chemotherapy Procedures [place] PALONOSETRON HCL [place] CARBOPLATIN INJECTION PA PACLITAXEL INJECTION Marquez Kolb MD 200 [place] [address] Anc Hem/Onc [address] [address] Referral ID Status Reason Start Date Expiration Date V isits Requested Visits Authorized [id number] Authorized 01/04/2024 07/01/[id number] Encounter Details Date Type Department Care Team (Latest Contact Info) Description 01/24/2024 11:00 AM EDT Hem/Onc Treatment Hematology/Oncolog y Treatment, [address] [address] Jeny, Chair 2 Hem Onc Scenery [address] [place] [address] GE junction carcinoma (HCC)*; Encounter for antineoplastic chemotherapy Allergies Active Allergy Reactions Criticality Noted Date Comments Hydroxyzine Hcl 05/12/2012 halluzinating Cetirizine & Related 02/11/1999 HALLUCINATIONS documented as of this encounter (statuses as of 02/07/2024) Medications Medication Sig Dispensed Refills Start Date End Date Status MULTIVITAMIN/RADIO COMMENTATOR AL FORMULA TABS OR 1 TABLET DAILY 0 0 12/02/2001 Active SYSTANE PRESERVATIVE FREE 0.4-0.3 % OP SOLNIndications:Ot her anterior corneal dystrophies 1 gtt OU q2h WA 1 box 6 12/03/2008 Active CALCIUM 8997-5806 MG-UNIT PO CHEW Take 1 Tablet by mouth in the morning. Active Cinnamon 500 MG Capsule Take 2 Capsules by mouth in the morning. Active ONETOUCH ULTRASOFT LANCETS MISCIndications:DM type 2 causing renal disease ([facility]) Use as directed daily. Use up to four times a day as directed. Dx E11.9 3 Box Dosing Unit 3 09/13/2018 Active aspirin enteric coated 81 MG TBECIndications:Co ronary artery disease involving [place] coronary artery of [place] heart without angina pectoris Take 1 Tab by mouth daily. 30 Tab 11 07/17/2019 Active Loratadine 10 MG Oral Capsule Take 1 Capsule by mouth in the morning. Active Magnesium 400 MG Capsule Take 1 by mouth daily. 30 Cap 11 01/11/2020 Active acetaminophen (TYLENOL) 325 MG Tablet 2 Tablets. 04/13/2020 Active Nitroglycerin 0.4 MG Sublingual Tablet Sublingual (Nitrostat)Indicat ions:Coronary artery disease involving [place] coronary artery of [place] heart without angina pectoris,Old [place] (myocardial infarction) [...] type 2 causing renal disease ([facility]) Check blood sugars one time daily. Dx E11.9 300 Strip 2 05/03/2023 Active Atorvastatin Calcium 40 MG Oral Tablet (Lipitor)Indicatio ns:Coronary artery disease involving [place] coronary artery of [place] heart without angina pectoris,Dyslipide mona TAKE 1 [...] failure ([facility]),Coronary artery disease involving [place] coronary artery of [place] heart without angina pectoris Take 1 Tablet [...] Dyslipidemia 02/18/2018 Coronary artery disease invo lving [place] coronary artery of [place] heart without angina pectoris 12/10/2017 PAF (paroxysmal [...] mRNA, LNP-s, No Pre serve, 2-Dose Series ([employer]) 07/23/2021,11/14/2020,10/24/2020 COVID-19, MRNA-LNP, 23-24, P F, 30 MCG/0.3 mL, 12 YRS AND ABOVE, IM (BiondVax-Comirnat) 05/26/2023 Covid-19, Mrna, Lnp-s, Pf, B ivalent, [...] Description 02/12/2024 10:00 AM EDT Laboratory Laboratory, [facility] [address] [place] [phone] [facility] 132 [facility] [place] [address] 02/14/2024 8:00 AM EDT Office Visit Hematology/Oncology [facility] [place] [address] [place] [phone] Marquez Kolb MD [address] [place] [address] 02/14/2024 8:30 AM EDT Hem/Onc Treatment Hematology/Oncology Treatment, [place] [address] [place], [place] [phone] Jeny, Chair 9 Hem Onc [facility] [address] [place] [address] 03/08/2024 10:00 AM EDT Cardiac Studies Cardiology, [facility] 132 [facility] [place] [address] [facility] [address] 04/05/2024 1:00 PM EDT Office Visit [facility] [address] [place] [phone] Jason West MD [address] [place] [address] Health Maintenance Due Date Last Done Comments Hepatitis C Screening 1963 COVID-19 Vaccine ( season) 2023 05/26/2023, 05/26/2022, 07/23/2021, Additional history exists Albumin/Creatinine Ratio 10/03/202310/02/2 023, 08/28/2021, 11/18/2020, Additional history exists CKD PHOS USE SMARTSET 12960 10/03/2023 03/0 09/2022, 03/17/2021, 08/18/2019, Additional history [...] Additional history exists CKD HGB USE SMARTSET 21779 02/04/202502/04, 02/05/2024, 01/31/2024, Additional history exists DXA [...] mg documented in this encounter Care Teams Skiagrapher Relationship Specialty Start Date End Date Jason West MD [address] [place], [place] [phone] PCP - General 02/06/03 documented as of this encounter
--- OUTSIDE RECORDS SUMMARY | 2024-02-23 02:45 | External Medical Summary | Summary of Care ---
Author Name Unknown Organization [facility] Address [address] [place] [facility] [place] [address] Phone [phone] Care Team Providers Care Hand Sample Maker Name Role Phone Jason West MD Primary Care Provider [phone]- [phone] Reason for Visit * Reason Comments Chemotherapy C2D1 Taxol/Carboplat in * Episode Based Medications (Routine) - Authorized Specialty Diagnoses / Procedures Referred By Abdullahi melo Referred To Contact Diagnoses GE junction carcinoma (HCC) Encounter for antineoplastic chemotherapy Procedures [place] PALONOSETRON HCL CO CARBOPLATIN INJECTION CO PACLITAXEL INJECTION Marquez Kolb MD 200 [facility] [place] [address] Anc Hem/Onc [address] [address] Referral ID Status Reason Start Date Expiration Date V isits Requested Visits Authorized [id number] Authorized 01/04/2024 07/01/[phone] Encounter Details Date Type Department Care Team (Latest Contact Info) Description 01/24/2024 11:00 AM EDT Hem/Onc Treatment Hematology/Oncolog y Treatment, [address] [address] Jeny, Chair 2 Hem Onc Scenery [address] [place] [address] GE junction carcinoma (HCC)*; Encounter for antineoplastic chemotherapy Allergies Active Allergy Reactions Criticality Noted Date Comments Hydroxyzine Hcl 05/12/2012 halluzinating Cetirizine & Related 02/11/1999 HALLUCINATIONS documented as of this encounter (statuses as of 02/07/2024) Medications Medication Sig Dispensed Refills Start Date End Date Status MULTIVITAMIN/BUCKET CHUCKER AL FORMULA TABS OR 1 TABLET DAILY 0 0 12/02/2001 Active SYSTANE PRESERVATIVE FREE 0.4-0.3 % OP SOLNIndications:Ot her anterior corneal dystrophies 1 gtt OU q2h WA 1 box 6 12/03/2008 Active CALCIUM 7094-0117 MG-UNIT PO CHEW Take 1 Tablet by mouth in the morning. Active Cinnamon 500 MG Capsule Take 2 Capsules by mouth in the morning. Active ONETOUCH ULTRASOFT LANCETS MISCIndications:DM type 2 causing renal disease ([facility]) Use as directed daily. Use up to four times a day as directed. Dx E11.9 3 Box Dosing Unit 3 09/13/2018 Active aspirin enteric coated 81 MG TBECIndications:Co ronary artery disease involving [place] coronary artery of [place] heart without angina pectoris Take 1 Tab by mouth daily. 30 Tab 11 07/17/2019 Active Loratadine 10 MG Oral Capsule Take 1 Capsule by mouth in the morning. Active Magnesium 400 MG Capsule Take 1 by mouth daily. 30 Cap 11 01/11/2020 Active acetaminophen (TYLENOL) 325 MG Tablet 2 Tablets. 04/13/2020 Active Nitroglycerin 0.4 MG Sublingual Tablet Sublingual (Nitrostat)Indicat ions:Coronary artery disease involving [place] coronary artery of [place] heart without angina pectoris,Old [place] (myocardial infarction) Place 1 Tablet under the tongue every 5 minutes as needed for Pain, Chest. 25 Tablet 5 09/03/2022 Active Insulin Pen Needle 32G X 5 MMIndications:DM type 2 causing renal disease, not at goal ([facility]) use to inject lantus twice per day 200 Each 3 03/26/2023 Active OneTouch Verio In Vitro Strip (Glucose Blood)Indications: DM type 2 causing renal disease ([facility]) Check blood sugars one time daily. Dx E11.9 300 Strip 2 05/03/2023 Active Atorvastatin Calcium 40 MG Oral Tablet (Lipitor)Indicatio ns:Coronary artery disease involving [place] coronary artery of [place] heart without angina pectoris,Dyslipide mona TAKE 1 TABLET DAILY IN THE MORNING 90 Tablet 3 05/27/2023 Active Insulin Glargine Solostar 100 UNIT/ML Subcutaneous Solution Pen-injector (Lantus SoloStar)Indicatio ns:DM type 2 causing renal disease, not at goal ([facility]) INJECT 20 UNITS SUBCUTANEOUSLY TWICE DAILY 30 mL 2 07/08/2023 Active Digoxin 125 MCG Oral Tablet (Lanoxin)Indicatio ns:Chronic systolic heart failure ([facility]),Coronary artery disease involving [place] coronary artery of [place] heart without angina pectoris Take 1 Tablet [...] Dyslipidemia 02/18/2018 Coronary artery disease invo lving [place] coronary artery of [place] heart without angina pectoris 12/10/2017 PAF (paroxysmal [...] mRNA, LNP-s, No Pre serve, 2-Dose Series ([employer]) 07/23/2021,11/14/2020,10/24/2020 COVID-19, MRNA-LNP, 23-24, P F, 30 MCG/0.3 mL, 12 YRS AND ABOVE, IM ([employer]-Comirnat) 05/26/2023 Covid-19, Mrna, Lnp-s, Pf, B ivalent, [...] Description 02/12/2024 10:00 AM EDT Laboratory Laboratory, [facility] [address] [place] [phone] [facility] 132 [facility] [place] [address] 02/14/2024 8:00 AM EDT Office Visit Hematology/Oncology [facility] Jeny [place] [address] [place] [phone] Marquez Kolb MD [address] [place] [address] 02/14/2024 8:30 AM EDT Hem/Onc Treatment Hematology/Oncology Treatment, [place] [address] [place], [place] [phone] Jeny, Chair 9 Hem Onc [facility] [address] [place] [address] 03/08/2024 10:00 AM EDT Cardiac Studies Cardiology, [facility] 132 [facility] [place] [address] [facility] [address] 04/05/2024 1:00 PM EDT Office Visit [facility] [address] [place] [phone] Jason West MD [address] [place] [address] Health Maintenance Due Date Last Done Comments Hepatitis C Screening 1963 COVID-19 Vaccine ( season) 2023 05/26/2023, 05/26/2022, 07/23/2021, Additional history exists Albumin/Creatinine Ratio 10/03/202310/02/2 023, 08/28/2021, 11/18/2020, Additional history exists CKD PHOS USE SMARTSET 17096 10/03/2023 03/0 09/2022, 03/17/2021, 08/18/2019, Additional history [...] Additional history exists CKD HGB USE SMARTSET 34707 02/04/202502/04, 02/05/2024, 01/31/2024, Additional history exists DXA [...] documented in this encounter Care Teams Hand Sample Maker Relationship Specialty Start Date End Date Jason West MD [address] [place], [place] [phone] PCP - General 02/06/03 documented as of this encounter
--- OUTSIDE RECORDS SUMMARY | 2024-02-23 02:45 | External Medical Summary | Summary of Care ---
Author Name Unknown Organization [facility] Address [address] [place] [place] [address] Phone [phone] Care Team Providers Care Supervisor Benzene Refining Name Role Phone Jason West MD Primary Care Provider +1- [phone] Reason for Visit * Reason Comments Chemotherapy C2D1 Taxol/Carboplat in * Episode Based Medications (Routine) - Authorized Specialty Diagnoses / Procedures Referred By Abdullahi melo Referred To Contact Diagnoses GE junction carcinoma (HCC) Encounter for antineoplastic chemotherapy Procedures [place] PALONOSETRON HCL [place] CARBOPLATIN INJECTION [place] PACLITAXEL INJECTION Marquez Kolb MD 200 [facility] [place] [address] Anc Hem/Onc [address] [address] Referral ID Status Reason Start Date Expiration Date V isits Requested Visits Authorized [id number] Authorized 01/04/2024 07/01/[phone] Encounter Details Date Type Department Care Team (Latest Contact Info) Description 01/24/2024 11:00 AM EDT Hem/Onc Treatment Hematology/Oncolog y Treatment, [address] [address] Jeny, Chair 2 Hem Onc Scenery [address] [place] [address] GE junction carcinoma (HCC)*; Encounter for antineoplastic chemotherapy Allergies Active Allergy Reactions Criticality Noted Date Comments Hydroxyzine Hcl 05/12/2012 halluzinating Cetirizine & Related 02/11/1999 HALLUCINATIONS documented as of this encounter (statuses as of 02/06/2024) Medications Medication Sig Dispensed Refills Start Date End Date Status MULTIVITAMIN/RV MECHANIC AL FORMULA TABS OR 1 TABLET DAILY 0 0 12/02/2001 Active SYSTANE PRESERVATIVE FREE 0.4-0.3 % OP SOLNIndications:Ot her anterior corneal dystrophies 1 gtt OU q2h WA 1 box 6 12/03/2008 Active CALCIUM 7041-1624 MG-UNIT PO CHEW Take 1 Tablet by mouth in the morning. Active Cinnamon 500 MG Capsule Take 2 Capsules by mouth in the morning. Active ONETOUCH ULTRASOFT LANCETS MISCIndications:DM type 2 causing renal disease ([facility]) Use as directed daily. Use up to four times a day as directed. Dx E11.9 3 Box Dosing Unit 3 09/13/2018 Active aspirin enteric coated 81 MG TBECIndications:Co ronary artery disease involving [place] coronary artery of [place] heart without angina pectoris Take 1 Tab by mouth daily. 30 Tab 11 07/17/2019 Active Loratadine 10 MG Oral Capsule Take 1 Capsule by mouth in the morning. Active Magnesium 400 MG Capsule Take 1 by mouth daily. 30 Cap 11 01/11/2020 Active acetaminophen (TYLENOL) 325 MG Tablet 2 Tablets. 04/13/2020 Active Nitroglycerin 0.4 MG Sublingual Tablet Sublingual (Nitrostat)Indicat ions:Coronary artery disease involving [place] coronary artery of [place] heart without angina pectoris,Old [place] (myocardial infarction) [...] Oral Tablet (Lipitor)Indicatio ns:Coronary artery disease involving [place] coronary artery of [place] heart without angina pectoris,Dyslipide mona TAKE 1 TABLET DAILY IN THE MORNING 90 Tablet 3 05/27/2023 Active Insulin Glargine Solostar 100 UNIT/ML Subcutaneous Solution Pen-injector (Lantus SoloStar)Indicatio ns:DM type 2 causing renal disease, not at goal ([facility]) INJECT 20 UNITS SUBCUTANEOUSLY TWICE DAILY 30 mL 2 07/08/2023 Active Digoxin 125 MCG Oral Tablet (Lanoxin)Indicatio ns:Chronic systolic heart failure ([facility]),Coronary artery disease involving [place] coronary artery of [place] heart without angina pectoris Take 1 Tablet [...] Dyslipidemia 02/18/2018 Coronary artery disease invo lving [place] coronary artery of [place] heart without angina pectoris 12/10/2017 PAF (paroxysmal [...] mRNA, LNP-s, No Pre serve, 2-Dose Series ([employer]) 07/23/2021,11/14/2020,10/24/2020 COVID-19, MRNA-LNP, 23-24, P F, 30 MCG/0.3 mL, 12 YRS AND ABOVE, IM ([employer]-Comirnat) 05/26/2023 Covid-19, Mrna, Lnp-s, Pf, B ivalent, [...] 1:00 PM EDT Hem/Onc Treatment Hematology/Oncology Treatment, [place] [address] [place] [address] 02/12/2024 10:00 AM EDT Laboratory Laboratory, [facility] [address] [place] 132 [facility] [place] [address] 02/14/2024 8:00 AM EDT Office Visit Hematology/Oncology [facility] Jeny [place] [address] [place] [phone] Marquez Kolb MD [address] [place] [address] 02/14/2024 8:30 AM EDT Hem/Onc Treatment Hematology/Oncology Treatment, [place] [address] [place] [phone] Jeny, Chair 9 Hem Onc [facility] 200 [facility] [place] [address] 03/08/2024 10:00 AM EDT Cardiac Studies Cardiology, [facility] [address] [facility] [address] [address] [place] 132 [facility] [place] [address] 04/05/2024 1:00 PM EDT Office Visit [facility] [address] [place] [phone] Jason West MD [address] [place] [address] Health Maintenance Due Date Last Done Comments Hepatitis C Screening 1963 COVID-19 Vaccine (2022- season) 2023 05/26/2023, 05/26/2022, 07/23/2021, Additional history exists Albumin/Creatinine Ratio 10/03/2023 023, 08/28/2021, 11/18/2020, Additional history exists CKD PHOS USE SMARTSET 87204 10/03/2023 03/0 09/2022, 03/17/2021, 08/18/2019, Additional history [...] Additional history exists CKD HGB USE SMARTSET 57866 02/04/202502/04, 02/05/2024, 01/31/2024, Additional history exists DXA [...] mg documented in this encounter Care Teams Supervisor Benzene Refining Relationship Specialty Start Date End Date Jason West MD [address] [place] [address] PCP - General 02/06/03 documented as of this encounter
--- OUTSIDE RECORDS SUMMARY | 2024-02-23 02:45 | External Medical Summary | Summary of Care ---
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 chemotherapy Procedures [place] PALONOSETRON HCL [place] CARBOPLATIN INJECTION [place] PACLITAXEL INJECTION Marquez Kolb MD 200 [facility] [place] [address] Anc Hem/Onc [address] [address] Referral ID Status Reason Start Date Expiration Date V isits Requested Visits Authorized [id number] Authorized 01/04/2024 07/01/2024 [id number] Encounter Details Date Type Department Care Team (Latest Contact Info) Description 01/24/2024 11:00 AM EDT Hem/Onc Treatment Hematology/Oncolog y Treatment, [address] [address] Jeny, Chair 2 Hem Onc Scenery [address] [place] [address] GE junction carcinoma (HCC)*; Encounter for antineoplastic chemotherapy Allergies Active Allergy Reactions Criticality Noted Date Comments Hydroxyzine Hcl 05/12/2012 halluzinating Cetirizine & Related 02/11/1999 HALLUCINATIONS documented as of this encounter (statuses as of 02/07/2024) Medications Medication Sig Dispensed Refills Start Date End Date Status MULTIVITAMIN/BRAND COMMUNICATIONS MANAGER AL FORMULA TABS OR 1 TABLET DAILY 0 0 12/02/2001 Active SYSTANE PRESERVATIVE FREE 0.4-0.3 % OP SOLNIndications:Ot her anterior corneal dystrophies 1 gtt OU q2h WA 1 box 6 12/03/2008 Active CALCIUM 6352-5053 MG-UNIT PO CHEW Take 1 Tablet by mouth in the morning. Active Cinnamon 500 MG Capsule Take 2 Capsules by mouth in the morning. Active ONETOUCH ULTRASOFT LANCETS MISCIndications:DM type 2 causing renal disease ([facility] MED[facility] [...] artery of [place] heart without angina pectoris,Old [place] (myocardial infarction) [...] DM type 2 causing renal disease (FORMERLY MEDICAL [...] Tablet (Lanoxin)Indicatio ns:Chronic systolic heart failure ([facility]),Coronary artery disease involving [place] coronary artery of [...] mRNA, LNP-s, No Pre serve, 2-Dose Series ([employer]) 07/23/2021,11/14/2020,10/24/2020 COVID-19, MRNA-LNP, 23-24, P F, 30 MCG/0.3 mL, 12 YRS AND ABOVE, IM ([employer]-Comirnat) 05/26/2023 Covid-19, Mrna, Lnp-s, Pf, B ivalent, [...] 02/12/2024 10:00 AM EDT Laboratory Laboratory, [facility] [address] [place] [phone] [facility] 132 [facility] [place] [address] 02/14/2024 8:00 AM EDT Office Visit Hematology/Oncology [facility] [place] [address] [place] [phone] Marquez Kolb MD [address] [place] [address] 02/14/2024 8:30 AM EDT Hem/Onc Treatment Hematology/Oncology Treatment, [place] [address] [place], [place] [phone] Jeny, Chair 9 Hem Onc [facility] [address] [place] [address] 03/08/2024 10:00 AM EDT Cardiac Studies Cardiology, [facility] 132 [facility] [place] [address] [facility] [address] 04/05/2024 1:00 PM EDT Office Visit [facility] [address] [place] [phone] Jason West MD [address] [place] [address] Health Maintenance Due Date Last Done Comments Hepatitis C Screening 1963 COVID-19 Vaccine ( season) 2023 05/26/2023, 05/26/2022, 07/23/2021, Additional history exists Albumin/Creatinine Ratio 10/03/202310/02/2 023, 08/28/2021, 11/18/2020, Additional history exists CKD PHOS USE SMARTSET 96893 10/03/2023 03/0 09/2022, 03/17/2021, 08/18/2019, Additional history [...] Additional history exists CKD HGB USE SMARTSET 61659 02/04/202502/04, 02/05/2024, 01/31/2024, Additional history exists DXA [...] mg documented in this encounter Care Teams Apprentice Cook Relationship Specialty Start Date End Date Jason West MD [address] [place], [place] [phone] PCP - General 02/06/03 documented as of this encounter
--- OUTSIDE RECORDS SUMMARY | 2024-02-23 02:45 | External Medical Summary | Summary of Care ---
Author Name Unknown Organization [facility] Address [address] [facility] [place] [address] Phone [phone] Care Team Providers Care Brake Liner Name Role Phone Jason West MD Primary Care Provider [phone]- [phone] Reason for Visit * Reason Comments Chemotherapy C2D1 Taxol/Carboplat in * Episode Based Medications (Routine) - Authorized Specialty Diagnoses / Procedures Referred By Abdullahi melo Referred To Contact Diagnoses GE junction carcinoma (HCC) Encounter for antineoplastic chemotherapy Procedures [place] PALONOSETRON HCL [place] CARBOPLATIN INJECTION [place] PACLITAXEL INJECTION Marquez Kolb MD 200 [place] [address] Anc Hem/Onc [address] [address] Referral ID Status Reason Start Date Expiration Date V isits Requested Visits Authorized [id number] Authorized 01/04/2024 07/01/2024 [id number] Encounter Details Date Type Department Care Team (Latest Contact Info) Description 01/24/2024 11:00 AM EDT Hem/Onc Treatment Hematology/Oncolog y Treatment, [address] [address] Jeny, Chair 2 Hem Onc Scenery [address] [place] [address] GE junction carcinoma (HCC)*; Encounter for antineoplastic chemotherapy Allergies Active Allergy Reactions Criticality Noted Date Comments Hydroxyzine Hcl 05/12/2012 halluzinating Cetirizine & Related 02/11/1999 HALLUCINATIONS documented as of this encounter (statuses as of 02/07/2024) Medications Medication Sig Dispensed Refills Start Date End Date Status MULTIVITAMIN/SHIP PURSER AL FORMULA TABS OR 1 TABLET DAILY 0 0 12/02/2001 Active SYSTANE PRESERVATIVE FREE 0.4-0.3 % OP SOLNIndications:Ot her anterior corneal dystrophies 1 gtt OU q2h WA 1 box 6 12/03/2008 Active CALCIUM 0672-1315 MG-UNIT PO CHEW Take 1 Tablet by mouth in the morning. Active Cinnamon 500 MG Capsule Take 2 Capsules by mouth in the morning. Active ONETOUCH ULTRASOFT LANCETS MISCIndications:DM type 2 causing renal disease ([facility]) Use as directed daily. Use up to four times a day as directed. Dx E11.9 3 Box Dosing Unit 3 09/13/2018 Active aspirin enteric coated 81 MG TBECIndications:Co ronary artery disease involving [place] coronary artery of [place] heart without angina pectoris Take 1 Tab by mouth daily. 30 Tab 11 07/17/2019 Active Loratadine 10 MG Oral Capsule Take 1 Capsule by mouth in the morning. Active Magnesium 400 MG Capsule Take 1 by mouth daily. 30 Cap 11 01/11/2020 Active acetaminophen (TYLENOL) 325 MG Tablet 2 Tablets. 04/13/2020 Active Nitroglycerin 0.4 MG Sublingual Tablet Sublingual (Nitrostat)Indicat ions:Coronary artery disease involving [place] coronary artery of [place] heart without angina pectoris,Old [place] (myocardial infarction) Place 1 Tablet under the tongue every 5 minutes as needed for Pain, Chest. 25 Tablet 5 09/03/2022 Active Insulin Pen Needle 32G X 5 MMIndications:DM type 2 causing renal disease, not at goal ([facility]) use to inject lantus twice per day 200 Each 3 03/26/2023 Active OneTouch Verio In Vitro Strip (Glucose Blood)Indications: DM type 2 causing renal disease ([facility]) Check blood sugars one time daily. Dx E11.9 300 Strip 2 05/03/2023 Active Atorvastatin Calcium 40 MG Oral Tablet (Lipitor)Indicatio ns:Coronary artery disease involving [place] coronary artery of [place] heart without angina pectoris,Dyslipide mona TAKE 1 TABLET DAILY IN THE MORNING 90 Tablet 3 05/27/2023 Active Insulin Glargine Solostar 100 UNIT/ML Subcutaneous Solution Pen-injector (Lantus SoloStar)Indicatio ns:DM type 2 causing renal disease, not at goal ([facility]) INJECT 20 UNITS SUBCUTANEOUSLY TWICE DAILY 30 mL 2 07/08/2023 Active Digoxin 125 MCG Oral Tablet (Lanoxin)Indicatio ns:Chronic systolic heart failure ([facility]),Coronary artery disease involving [place] coronary artery of [place] heart without angina pectoris Take 1 Tablet [...] Dyslipidemia 02/18/2018 Coronary artery disease invo lving [place] coronary artery of [place] heart without angina pectoris 12/10/2017 PAF (paroxysmal [...] mRNA, LNP-s, No Pre serve, 2-Dose Series ([employer] 07/23/2021,11/14/2020,10/24/2020 COVID-19, MRNA-LNP, 23-24, P F, 30 MCG/0.3 mL, 12 YRS AND ABOVE, IM ([employer]-Comirnat) 05/26/2023 Covid-19, Mrna, Lnp-s, Pf, B ivalent, [...] Description 02/12/2024 10:00 AM EDT Laboratory Laboratory, [facility] [address] [place] [phone] [facility] 132 [facility] [place] [address] 02/14/2024 8:00 AM EDT Office Visit Hematology/Oncology [facility] [place] [address] [place] [phone] Marquez Kolb MD [address] [place] [address] 02/14/2024 8:30 AM EDT Hem/Onc Treatment Hematology/Oncology Treatment, [place] [address] [place], [place] [phone] Jeny, Chair 9 Hem Onc [facility] [address] [place] [address] 03/08/2024 10:00 AM EDT Cardiac Studies Cardiology, [facility] 132 [facility] [place] [address] [facility] [address] 04/05/2024 1:00 PM EDT Office Visit [facility] [address] [place] [phone] Jason West MD [address] [place] [address] Health Maintenance Due Date Last Done Comments Hepatitis C Screening 1963 COVID-19 Vaccine ( season) 2023 05/26/2023, 05/26/2022, 07/23/2021, Additional history exists Albumin/Creatinine Ratio 10/03/202310/02/2 023, 08/28/2021, 11/18/2020, Additional history exists CKD PHOS USE SMARTSET 12740 10/03/2023 03/0 09/2022, 03/17/2021, 08/18/2019, Additional history [...] Additional history exists CKD HGB USE SMARTSET 40491 02/04/202502/04, 02/05/2024, 01/31/2024, Additional history exists DXA [...] mg documented in this encounter Care Teams Brake Liner Relationship Specialty Start Date End Date Jason West MD [address] [place], [place] [phone] PCP - General 02/06/03 documented as of this encounter
--- OUTSIDE RECORDS SUMMARY | 2024-02-23 02:46 | External Medical Summary | Summary of Care ---
Author Name Unknown Organization [facility] Address [address] [facility] [place] [address] Phone [phone] Care Team Providers Care Product Delivery Specialist Name Role Phone Jason West MD Primary Care Provider +1- [phone] Reason for Visit * Reason Comments Chemotherapy C2D1 Taxol/Carboplat in * Episode Based Medications (Routine) - Authorized Specialty Diagnoses / Procedures Referred By Abdullahi melo Referred To Contact Diagnoses GE junction carcinoma (HCC) Encounter for antineoplastic chemotherapy Procedures [place] PALONOSETRON HCL [place] CARBOPLATIN INJECTION [place] PACLITAXEL INJECTION Marquez Kolb MD 200 [facility] [place] [address] Anc Hem/Onc [address] [address] Referral ID Status Reason Start Date Expiration Date V isits Requested Visits Authorized [id number] Authorized 01/04/2024 07/01/[phone] Encounter Details Date Type Department Care Team (Latest Contact Info) Description 01/24/2024 11:00 AM EDT Hem/Onc Treatment Hematology/Oncolog y Treatment, [address] [address] Jeny, Chair 2 Hem Onc Scenery [address] [place] [address] GE junction carcinoma (HCC)*; Encounter for antineoplastic chemotherapy Allergies Active Allergy Reactions Criticality Noted Date Comments Hydroxyzine Hcl 05/12/2012 halluzinating Cetirizine & Related 02/11/1999 HALLUCINATIONS documented as of this encounter (statuses as of 02/06/2024) Medications Medication Sig Dispensed Refills Start Date End Date Status MULTIVITAMIN/UNIT LEADER AL FORMULA TABS OR 1 TABLET DAILY 0 0 12/02/2001 Active SYSTANE PRESERVATIVE FREE 0.4-0.3 % OP SOLNIndications:Ot her anterior corneal dystrophies 1 gtt OU q2h WA 1 box 6 12/03/2008 Active CALCIUM 2983-3772 MG-UNIT PO CHEW Take 1 Tablet by mouth in the morning. Active Cinnamon 500 MG Capsule Take 2 Capsules by mouth in the morning. Active ONETOUCH ULTRASOFT LANCETS MISCIndications:DM type 2 causing renal disease ([facility]) Use as directed daily. Use up to [...] artery of peters[place] heart without angina pectoris,Old [place] (myocardial infarction) Place 1 Tablet under the tongue every 5 minutes as needed for Pain, Chest. 25 Tablet 5 09/03/2022 Active Insulin Pen Needle 32G X 5 MMIndications:DM type 2 causing renal disease, not at goal ([facility]) use to inject lantus twice per day 200 Each 3 03/26/2023 Active OneTouch Verio In Vitro Strip (Glucose Blood)Indications: DM type 2 causing renal disease ([facility]) Check blood sugars one time daily. Dx [...] renal disease, not at goal ([facility]) INJECT 20 UNITS SUBCUTANEOUSLY TWICE DAILY 30 mL 2 07/08/2023 Active Digoxin 125 MCG Oral Tablet (Lanoxin)Indicatio ns:Chronic systolic heart failure ([facility]),Coronary artery disease involving p[place] coronary artery of [...] mRNA, LNP-s, No Pre serve, 2-Dose Series ([employer]) 07/23/2021,11/14/2020,10/24/2020 COVID-19, MRNA-LNP, 23-24, P F, 30 MCG/0.3 mL, 12 YRS AND ABOVE, IM ([employer]-Comirnat) 05/26/2023 Covid-19, Mrna, Lnp-s, Pf, B ivalent, [...] 1:00 PM EDT Hem/Onc Treatment Hematology/Oncology Treatment, [place] [address] [place] [address] 02/12/2024 10:00 AM EDT Laboratory Laboratory, [facility] [address] [place] 132 [facility] [place] [address] 02/14/2024 8:00 AM EDT Office Visit Hematology/Oncology [facility] [place] [address] [place] [phone] Marquez Kolb MD [address] [place] [address] 02/14/2024 8:30 AM EDT Hem/Onc Treatment Hematology/Oncology Treatment, [place] [employer] [address] [place] [phone] Jeny, Chair 9 Hem Onc [facility] 200 [facility] [place] [address] 03/08/2024 10:00 AM EDT Cardiac Studies Cardiology, [facility] [place] [address] [facility] 132 [facility] [place] [address] 04/05/2024 1:00 PM EDT Office Visit [facility] [address] [place] [phone] Jason West MD [address] [place] [address] Health Maintenance Due Date Last Done Comments Hepatitis C Screening 1963 COVID-19 Vaccine (2022- season) 2023 05/26/2023, 05/26/2022, 07/23/2021, Additional history exists Albumin/Creatinine Ratio 10/03/2023 023, 08/28/2021, 11/18/2020, Additional history exists CKD PHOS USE SMARTSET 94569 10/03/2023 03/0 09/2022, 03/17/2021, 08/18/2019, Additional history [...] Additional history exists CKD HGB USE SMARTSET 93322 02/04/202502/04, 02/05/2024, 01/31/2024, Additional history exists DXA [...] mg documented in this encounter Care Teams Product Delivery Specialist Relationship Specialty Start Date End Date Jason West MD [address] [place] [address] PCP - General 02/06/03 documented as of this encounter
--- OUTSIDE RECORDS SUMMARY | 2024-02-23 02:46 | External Medical Summary ---
Author Name Unknown Address Unknown Organization [id number] [address] [place] [address] Laboratory Report Ordering Provider Test Date Status DAQUAN MOHAN 02/05/2024 09:36:53 Final Observation Date Value Abnormality Reference (Units ) Status SYNC LEUKOCYTES IN BLOOD BY AUTOMATED COUNT 02/05/2024 09:36:53 2.13 Below low normal 4.00-10.80 (K/uL) Final Segs 02/05/2024 09:36:53 52.5 40.0-75.0 (%) Final Lymphs % 02/05/2024 09:36:53 17.4 Below low normal 18.0-42.0 (%) Final Monos 02/05/2024 09:36:53 24.9 Above high normal 1.0-11.0 (%) Final Eosinophils 02/05/2024 09:36:53 3.8 0.0-6.0 (%) Final Basos 02/05/2024 09:36:53 1.4 0.0-2.0 (%) Final Absolute Segs 02/05/2024 09:36:53 1.12 Below low normal 1.80-7.70 (K/uL) Final Lymphs, absolute 02/05/2024 09:36:53 0.37 Below low normal 1.00-4.80 (K/ul) Final Monos, Abs 02/05/2024 09:36:53 0.53 0.00-1.10 (K/uL) Final Eos, Abs 02/05/2024 09:36:53 0.08 0.00-0.70 (K/uL) Final Basos, Abs 02/05/2024 09:36:53 0.03 0.00-0.20 (K/uL) Final Performing Location [facility] [place] [address]
--- OUTSIDE RECORDS SUMMARY | 2024-02-23 02:46 | External Medical Summary ---
Author Name Unknown Address Unknown Organization [id number] [address] [place] [address] Laboratory Report Ordering Provider Test Date Status DAQUAN MOHAN 02/05/2024 09:36:53 Final Observation Date Value Abnormality Reference (Units ) Status BUN 02/05/2024 09:36:53 16 6-20 (mg/dL) Final Creatinine 02/05/2024 09:36:53 0.7 0.5-1.0 (mg/dL) Final Glomerular filtration rate/1.73 sq M.predicted [Volume Rate/Area] in Serum, Plasma or Blood by Creatinine-based formula (CKD-EPI) 02/05/2024 09:36:53 88 >=60 (mL/min) Final eGFR is calculated based on the CKD-EPI 2020 equation Sodium 02/05/2024 09:36:53 141 135-146 (m mol/L) Final Potassium 02/05/2024 09:36:53 4.1 3.5-5.1 (m mol/L) Final Cl 02/05/2024 09:36:53 104 98-107 (mm ol/L) Final CO2 02/05/2024 09:36:53 27 22-32 (mmo l/L) Final Anion gap 02/05/2024 09:36:53 10 7-15 (mmol /L) Final Glucose 02/05/2024 09:36:53 87 70-120 (mg /dL) Final Albumin 02/05/2024 09:36:53 3.5 Below low normal 3.8 -5.0 (g/dL) Final AST (Aspartate aminotransferase) 02/05/2024 09:36:53 24 10-35 (U/L) Fin al Alk Phos 02/05/2024 09:36:53 77 35-130 (U/ L) Final Bilirubin, Total 02/05/2024 09:36:53 0.5 <=1 .2 (mg/dL) Final Calcium 02/05/2024 09:36:53 8.8 8.4-10.2 ( mg/dL) Final Protein 02/05/2024 09:36:53 6.6 6.0-8.3 (g /dL) Final ALT (Alanine aminotransferase) 02/05/2024 09:36:53 20 10-35 (U/L) Axel lopez Performing Location [facility] [place] [address]
--- OUTSIDE RECORDS SUMMARY | 2024-02-23 02:46 | External Medical Summary | Summary of Care ---
Author Name Unknown Organization [facility] Address [address] [facility] [address] Phone [phone] Care Team Providers Care Extension Professor Name Role Phone Jason West MD Primary Care Provider +1- [phone] Reason for Visit * Reason Comments Outpatient Testing Encounter Details Date Type Department Care Team (Late st Contact Info) Description 02/05/2024 10:00 AM EDT Laboratory Laboratory, [facility] [address] [place] [address] [facility] 132 [facility] [place] [id number] GE junction carcinoma (HCC) Allergies Active Allergy Reactions Criticality Noted Date Comments Hydroxyzine Hcl 05/12/2012 halluzinating Cetirizine & Related 02/11/1999 HALLUCINATIONS documented as of this encounter (statuses as of 02/05/2024) Medications Medication Sig Dispensed Refills Start Date End Date Status MULTIVITAMIN/CONSERVATION ENFORCEMENT OFFICER AL FORMULA TABS OR 1 TABLET DAILY 0 0 12/02/2001 Active SYSTANE PRESERVATIVE FREE 0.4-0.3 % OP SOLNIndications:Ot her anterior corneal dystrophies 1 gtt OU q2h WA 1 box 6 12/03/2008 Active CALCIUM 5802-4040 MG-UNIT PO CHEW Take 1 Tablet by [...] 81 MG TBECIndications:Co ronary artery disease involving quileute coronary artery of quileute heart without angina pectoris Take 1 Tab by mouth daily. 30 Tab 11 07/17/2019 Active Loratadine 10 MG Oral Capsule Take 1 Capsule by mouth in the morning. Active Magnesium 400 MG Capsule Take 1 by mouth daily. 30 Cap 11 01/11/2020 Active acetaminophen (TYLENOL) 325 MG Tablet 2 Tablets. 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,Dyslipide mona TAKE 1 TABLET DAILY IN THE MORNING 90 Tablet 3 05/27/2023 Active Insulin Glargine Solostar 100 UNIT/ML Subcutaneous Solution Pen-injector (Lantus SoloStar)Indicatio ns:DM type 2 causing renal disease, not at goal ([facility]) INJECT 20 UNITS SUBCUTANEOUSLY TWICE DAILY 30 mL 2 07/08/2023 Active Digoxin 125 MCG Oral Tablet (Lanoxin)Indicatio ns:Chronic systolic heart failure (HCC),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..] as of this encounter (statuses as of 02/05/2024) Immunizations Name Administration Dates Next Due COVID-19 mRNA, LNP-s, No Pre serve, 2-Dose Series ([employer]) 07/23/2021,11/14/2020,10/24/2020 COVID-19, MRNA-LNP, 23-24, P F, 30 MCG/0.3 mL, 12 YRS AND ABOVE, IM ([employer]Comirnat) 05/26/2023 Covid-19, Mrna, Lnp-s, Pf, B ivalent, 30 Mcg, IM, 12 yrs and above ([employer]) 05/26/2022 Pneumococcal Conjugate Vacc, 13 Valent (Prevnar) [...] 02/07/2024 1:00 PM EDT [facility] [phone] 02/12/2024 10:00 AM EDT Laboratory Laboratory, [facility] [address] [place] [phone] [facility] [address] [facility] [place] [address] 02/14/2024 8:00 AM EDT Office Visit Hematology/Oncology [facility] [place] [address] [facility] [place] [phone] Marquez Kolb MD 200 [facility] [place] [address] 02/14/2024 8:30 AM EDT Hem/Onc Treatment Hematology/Oncology Treatment, [place] 200 [facility], [place] [phone] Jeny, Chair 9 Hem Onc [address] [place] [address] 03/08/2024 10:00 AM EDT Cardiac Studies Cardiology, [facility] [address] [facility] [place] [address] [address] [address] [facility] [place] [address] 04/05/2024 1:00 PM EDT Office Visit [place] [address] [facility] [phone] Jason West MD [address] [place] [address] Pending Results Name Type Priority Associated Diagnoses Date /Time COMPREHENSIVE METABOLIC PANEL Lab STAT GE junction carcinoma (HCC) 02/05/2024 9:36 AM EDT Health Maintenance Due Date Last Done Comments Hepatitis C Screening 1963 COVID-19 Vaccine ( season) 2023 05/26/2023, 05/26/2022, 07/23/2021, Additional history exists Albumin/Creatinine Ratio 10/03/2023 023, 08/28/2021, 11/18/2020, Additional history exists CKD PHOS USE SMARTSET 47242 10/03/2023 03/0 09/2022, 03/17/2021, 08/18/2019, Additional history exists Depression Monitoring 12/03/2023 12/02/2022 DIG LEVEL FOR MEDICATION MONITORING YEARLY 03/08/2024 03/08/2023, 10/02/2022, 07/29/2021 Influenza Vaccine (FLU shot) (#1) 2024 05/26/2023, 05/22/2022, 04/30/2021, Additional history exists HbA1c 06/18/2024 12/17/2023, 08/0 01/2023, 10/02/2022, Additional history exists GFR 08/03/2024 02/01/2024, 07/0 08/2023, 01/22/2024, Additional history exists Diabetic Eye Exam 11/01/2024 11/02/2023, , 04/07/2019, Additional history exists Diabetic Foot Exam 11/01/2024 11/02/2023, 0 03/17/2021, 12/27/2019, Additional history exists CKD HGB USE SMARTSET 99257 01/30/202502/04, 02/05/2024, 01/31/2024, Additional history exists DXA Scan [...] Procedure Name Priority Date/Time Associated Diagnosis Comments DIFFERENTIAL, AUTOMATED STAT 02/05/2024 9:36 AM EDT GE junction carcinoma (HCC) CBC STAT 02/05/2024 9:36 AM EDT GE junction carcinoma (HCC) CBC STAT 02/05/2024 9:36 AM EDT GE junction carcinoma (HCC) documented in this encounter Results * (ABNORMAL) DIFFERENTIAL, AUTOMATED (02/05/2024 9:36 AM EDT) WBC 2.13(L) 4.00 - 10.80 K/uL 02/05/2024 9:45 AM EDT [facility] [place] [facility]10 Neutrophils % 52.5 40.0 - 75.0 % 02/05/2024 9:45 AM EDT [facility] [place] 57[facility]10 Lymphocytes % 17.4(L) 18.0 - 42.0 % 02/05/2024 9:45 AM EDT [facility] [place] [facility]10 Monocytes % 24.9(H) 1.0 - 11.0 % 02/05/2024 9:45 AM EDT [facility] [place] [facility]10 Eosinophils % 3.8 0.0 - 6.0 % 02/05/2024 9:45 AM EDT [facility] [place] [facility]10 Basophils % 1.4 0.0 - 2.0 % 02/05/2024 9:45 AM EDT [facility] [place] [facility]10 Absolute Neutrophils 1.12(L) 1.80 - 7.70 K/uL 02/05/2024 9:45 AM EDT [facility] [place] 57-10 Absolute Lymphocytes 0.37(L) 1.00 - 4.80 K/ul 02/05/2024 9:45 AM EDT [facility] [place] 57-10 Absolute Monocytes 0.53 0.00 - 1.10 K/uL 02/05/2024 9:45 AM EDT [facility] [place] 57-10 Absolute Eosinophils 0.08 0.00 - 0.70 K/uL 02/05/2024 9:45 AM EDT [facility] [place] 57-10 Absolute Basophils 0.03 0.00 - 0.20 K/uL 02/05/2024 9:45 AM EDT [facility] [place] 5710 Blood Venous blood specimen / Unknown Venipuncture / Unknown 02/05/2024 9:36 AM EDT 02/05/2024 9:36 AM EDT Marquez Kolb MD LAB BLOOD [facility] [place] [address] [address] [place] [address] * (ABNORMAL) CBC (02/05/2024 9:36 AM EDT) WBC 2.13(L) 4.00 - 10.80 K/uL 02/05/2024 9:45 AM EDT [facility] [place] 5710 RBC 4.01 3.85 - 5.15 M/uL 02/05/2024 9:45 AM EDT [facility] [place] 57-10 HGB 9.5(L) 12.0 - 15.3 g/dL 02/05/2024 9:45 AM EDT [facility] [place] 5710 HCT 32.2(L) 36.0 - 45.2 % 02/05/2024 9:45 AM EDT [facility] [place] 5710 MCV 80.3 81.5 - 97.5 fL 02/05/2024 9:45 AM EDT [facility] [place] [facility]10 MCH 23.7 27.0 - 34.0 pg 02/05/2024 9:45 AM EDT [facility] [place] [facility]10 MCHC 29.5 32.0 - 36.0 g/dL 02/05/2024 9:45 AM EDT [facility] [place] [facility]10 RDW 18.7 11.5 - 15.5 % 02/05/2024 9:45 AM EDT [facility] [place] 57-10 PLT 196 140 - 400 K/uL 02/05/2024 9:45 AM EDT [facility] [place] [facility]10 MPV 9.6 6.6 - 11.1 fL 02/05/2024 9:45 AM EDT [facility] [place] 57[facility]10 Blood Venous blood specimen / Unknown Venipuncture / Unknown 02/05/2024 9:36 AM EDT 02/05/2024 9:36 AM EDT Marquez Kolb MD LAB BLOOD [facility] [place] [facility] [address] [facility] [address] documented in this encounter Visit Diagnoses Diagnosis 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
--- OUTSIDE RECORDS SUMMARY | 2024-02-23 02:46 | External Medical Summary ---
Author Name Unknown Address Unknown Organization [facility] - [address] [place] [address] Laboratory Report Ordering Provider Test Date Status DAQUAN MOHAN 02/05/2024 09:36:53 Final Observation Date Value Abnormality Reference (Units ) Status WBC, Total 02/05/2024 09:36:53 2.13 Below low normal 4. 00-10.80 (K/uL) Final RBC 02/05/2024 09:36:53 4.01 3.85-5.15 (M/uL) Final Hemoglobin 02/05/2024 09:36:53 9.5 Below low normal 12 .0-15.3 (g/dL) Final HCT 02/05/2024 09:36:53 32.2 Below low normal 36. 0-45.2 (%) Final MCV 02/05/2024 09:36:53 80.3 81.5-97.5 (fL) Final MCH 02/05/2024 09:36:53 23.7 27.0-34.0 (pg) Final MCHC 02/05/2024 09:36:53 29.5 32.0-36.0 (g/dL) Final RDW 02/05/2024 09:36:53 18.7 11.5-15.5 (%) Final Platelets 02/05/2024 09:36:53 196 140-400 (K /uL) Final MPV 02/05/2024 09:36:53 9.6 6.6-11.1 ( fL) Final Performing Location [facility] [address] - [address] [place] [address]
--- OUTSIDE RECORDS SUMMARY | 2024-02-23 02:46 | External Medical Summary | Summary of Care ---
Author Name Unknown Organization [facility] Address [address] [facility] [place] [address] Phone [phone] Care Team Providers Care Wet Machine Operator Name Role Phone Jason West MD Primary Care Provider +1- [phone] Reason for Visit * Reason Comments Chemotherapy C2D1 Taxol/Carboplat in * Episode Based Medications (Routine) - Authorized Specialty Diagnoses / Procedures Referred By Abdullahi melo Referred To Contact Diagnoses GE junction carcinoma (HCC) Encounter for antineoplastic chemotherapy Procedures [place] PALONOSETRON HCL [place] CARBOPLATIN INJECTION [place] PACLITAXEL INJECTION Marquez Kolb MD [address] [facility] [address] Anc Hem/Onc [address] [address] Referral ID Status Reason Start Date Expiration Date V isits Requested Visits Authorized [id number] Authorized 01/04/2024 07/01/[phone] Encounter Details Date Type Department Care Team (Latest Contact Info) Description 01/24/2024 11:00 AM EDT Hem/Onc Treatment Hematology/Oncolog y Treatment, [address] [address] Jeny, Chair 2 Hem Onc [address] [address] [place] [address] GE junction carcinoma (HCC)*; Encounter for antineoplastic chemotherapy Allergies Active Allergy Reactions Criticality Noted Date Comments Hydroxyzine Hcl 05/12/2012 halluzinating Cetirizine & Related 02/11/1999 HALLUCINATIONS documented as of this encounter (statuses as of 02/06/2024) Medications Medication Sig Dispensed Refills Start Date End Date Status MULTIVITAMIN/CRM MANAGER AL FORMULA TABS OR 1 TABLET DAILY 0 0 12/02/2001 Active SYSTANE PRESERVATIVE FREE 0.4-0.3 % OP SOLNIndications:Ot her anterior corneal dystrophies 1 gtt OU q2h WA 1 box 6 12/03/2008 Active CALCIUM 8138-0073 MG-UNIT PO CHEW Take 1 Tablet by [...] 81 MG TBECIndications:Co ronary artery disease involving grindstone coronary artery of grindstone heart without angina pectoris Take 1 Tab by mouth daily. 30 Tab 11 07/17/2019 Active Loratadine 10 MG Oral Capsule Take 1 Capsule by mouth in the morning. Active Magnesium 400 MG Capsule Take 1 by mouth daily. 30 Cap 11 01/11/2020 Active acetaminophen (TYLENOL) 325 MG Tablet 2 Tablets. 04/13/2020 Active Nitroglycerin 0.4 MG Sublingual Tablet Sublingual (Nitrostat)Indicat ions:Coronary artery disease involving grindstone coronary artery of grindstone heart without angina pectoris,Old [place] (myocardial infarction) [...] Oral Tablet (Lipitor)Indicatio ns:Coronary artery disease involving grind[place] coronary artery of grindstone heart without angina pectoris,Dyslipide mona TAKE 1 [...] [facility]),Coronary artery disease involving grindstone coronary artery of grindstone heart without angina pectoris Take 1 Tablet [...] Dyslipidemia 02/18/2018 Coronary artery disease invo lving grindstone coronary artery of grindstone heart without angina pectoris 12/10/2017 PAF (paroxysmal [...] mRNA, LNP-s, No Pre serve, 2-Dose Series ([employer]) 07/23/2021,11/14/2020,10/24/2020 COVID-19, MRNA-LNP, 23-24, P F, 30 MCG/0.3 mL, 12 YRS AND ABOVE, IM ([employer]-Comirnat) 05/26/2023 Covid-19, Mrna, Lnp-s, Pf, B ivalent, [...] 1:00 PM EDT Hem/Onc Treatment Hematology/Oncology Treatment, [place] [address] [place] [address] 02/12/2024 10:00 AM EDT Laboratory Laboratory, [facility] [address] [facility] [address] [place], [facility] [address] [place] [address] 02/14/2024 8:00 AM EDT Office Visit Hematology/Oncology [facility] Jeny [place] [address] [place] [phone] Marquez Kolb MD [address] [place] [address] 02/14/2024 8:30 AM EDT Hem/Onc Treatment Hematology/Oncology Treatment, [place] [address] [place] [phone] Jeny, Chair 9 Hem Onc [facility] [address] [facility] [place] [address] 03/08/2024 10:00 AM EDT Cardiac Studies Cardiology, [facility] [address] [facility] [address] Del[place] [facility] 132 [facility] [place] [address] 04/05/2024 1:00 PM EDT Office Visit [facility] [address] [place] [phone] Jason West MD [address] [place] [address] Health Maintenance Due Date Last Done Comments Hepatitis C Screening 1963 COVID-19 Vaccine (2022- season) 2023 05/26/2023, 05/26/2022, 07/23/2021, Additional history exists Albumin/Creatinine Ratio 10/03/2023 023, 08/28/2021, 11/18/2020, Additional history exists CKD PHOS USE SMARTSET 97592 10/03/2023 03/0 09/2022, 03/17/2021, 08/18/2019, Additional history [...] Additional history exists CKD HGB USE SMARTSET 84310 02/04/202502/04, 02/05/2024, 01/31/2024, Additional history exists DXA [...] mg documented in this encounter Care Teams Wet Machine Operator Relationship Specialty Start Date End Date Jason West MD [address] [place] [address] PCP - General 02/06/03 documented as of this encounter
--- OUTSIDE RECORDS SUMMARY | 2024-02-23 02:46 | External Medical Summary | Summary of Care ---
Author Name Unknown Organization [facility] Address [address] [place] [facility] [place] [address] Phone [phone] Care Team Providers Care Provisioning Analyst Name Role Phone Jason West MD Primary Care Provider +1- [phone] Reason for Visit * Reason Comments Chemotherapy C2D1 Taxol/Carboplat in * Episode Based Medications (Routine) - Authorized Specialty Diagnoses / Procedures Referred By Abdullahi melo Referred To Contact Diagnoses GE junction carcinoma (HCC) Encounter for antineoplastic chemotherapy Procedures AL PALONOSETRON HCL AL CARBOPLATIN INJECTION AL PACLITAXEL INJECTION Marquez Kolb MD 200 [facility] [place] [address] Anc Hem/Onc [address] [address] Referral ID Status Reason Start Date Expiration Date V isits Requested Visits Authorized [id number] Authorized 01/04/2024 07/01/[phone] Encounter Details Date Type Department Care Team (Latest Contact Info) Description 01/24/2024 11:00 AM EDT Hem/Onc Treatment Hematology/Oncolog y Treatment, [address] [address] Jeny, Chair 2 Hem Onc [place] [address] [place] [address] GE junction carcinoma (HCC)*; Encounter for antineoplastic chemotherapy Allergies Active Allergy Reactions Criticality Noted Date Comments Hydroxyzine Hcl 05/12/2012 halluzinating Cetirizine & Related 02/11/1999 HALLUCINATIONS documented as of this encounter (statuses as of 02/06/2024) Medications Medication Sig Dispensed Refills Start Date End Date Status MULTIVITAMIN/SOUND PERSON AL FORMULA TABS OR 1 TABLET DAILY 0 0 12/02/2001 Active SYSTANE PRESERVATIVE FREE 0.4-0.3 % OP SOLNIndications:Ot her anterior corneal dystrophies 1 gtt OU q2h WA 1 box 6 12/03/2008 Active CALCIUM 6854-5676 MG-UNIT PO CHEW Take 1 Tablet by mouth in the morning. Active Cinnamon 500 MG Capsule Take 2 Capsules by mouth in the morning. Active ONETOUCH ULTRASOFT LANCETS MISCIndications:DM type 2 causing renal disease ([facility]) Use as directed daily. Use [...] of [place] heart without angina pectoris,Old [place] (myocardial infarction) [...] ([facility]),Coronary artery disease involving [place] coronary artery [...] mRNA, LNP-s, No Pre serve, 2-Dose Series ([employer]) 07/23/2021,11/14/2020,10/24/2020 COVID-19, MRNA-LNP, 23-24, P F, 30 MCG/0.3 mL, 12 YRS AND ABOVE, IM ([employer]-Comirnat) 05/26/2023 Covid-19, Mrna, Lnp-s, Pf, B ivalent, [...] 1:00 PM EDT Hem/Onc Treatment Hematology/Oncology Treatment, [place] [address] [place] [address] 02/12/2024 10:00 AM EDT Laboratory Laboratory, [facility] [address] [place], [facility] 132 [facility] [place] [address] 02/14/2024 8:00 AM EDT Office Visit Hematology/Oncology [facility] Jeny [place] [address] [place] [phone] Marquez Kolb MD [address] [place] [address] 02/14/2024 8:30 AM EDT Hem/Onc Treatment Hematology/Oncology Treatment, [place] [address] [place] [phone] Jeny, Chair 9 Hem Onc [facility] 200 [facility] [place] [address] 03/08/2024 10:00 AM EDT Cardiac Studies Cardiology, [facility] [address] [address] [facility] 132 [facility] [place] [address] 04/05/2024 1:00 PM EDT Office Visit [facility] [address] [place] [phone] Jason West MD [address] [place] [address] Health Maintenance Due Date Last Done Comments Hepatitis C Screening 1963 COVID-19 Vaccine (2022- season) 2023 05/26/2023, 05/26/2022, 07/23/2021, Additional history exists Albumin/Creatinine Ratio 10/03/2023 023, 08/28/2021, 11/18/2020, Additional history exists CKD PHOS USE SMARTSET 87995 10/03/2023 03/0 09/2022, 03/17/2021, 08/18/2019, Additional history [...] Additional history exists CKD HGB USE SMARTSET 07909 02/04/202502/04, 02/05/2024, 01/31/2024, Additional history exists DXA [...] mg documented in this encounter Care Teams Provisioning Analyst Relationship Specialty Start Date End Date Jason West MD [address] [place] [address] PCP - General 02/06/03 documented as of this encounter
--- OUTSIDE RECORDS SUMMARY | 2024-02-23 02:47 | External Medical Summary | Summary of Care ---
Author Name Unknown Organization [facility] Address [address] [facility] [address] Phone [phone] Care Team Providers Care Email Specialist Name Role Phone Jason West MD Primary Care Provider [phone]- [phone] Reason for Visit * Reason Comments Follow Up Treatment Encounter Details Date Type Department Care Team (Late st Contact Info) Description 01/31/2024 9:30 AM EDT Office Visit Hematology/Oncology [facility] [place] [address] [facility] [place] [phone] Marquez Butt MD [address] [facility] [place] [address] GE junction carcinoma (HCC)*; Encounter for antineoplastic chemotherapy Allergies Active Allergy Reactions Criticality Noted Date Comments Hydroxyzine Hcl 05/12/2012 halluzinating Cetirizine & Related 02/11/1999 HALLUCINATIONS documented as of this encounter (statuses as of 01/31/2024) Medications Medication Sig Dispensed Refills Start Date End Date Status MULTIVITAMIN/MARKER MACHINE AL FORMULA TABS OR 1 TABLET DAILY 0 0 12/02/2001 Active SYSTANE PRESERVATIVE FREE 0.4-0.3 % OP SOLNIndications:Ot her anterior corneal dystrophies 1 gtt OU q2h WA 1 box 6 12/03/2008 Active CALCIUM 7897-0879 MG-UNIT PO CHEW Take 1 Tablet by [...] 81 MG TBECIndications:Co ronary artery disease involving [place] coronary artery of [place] heart without angina pectoris Take 1 [...] Tablet Sublingual (Nitrostat)Indicat ions:Coronary artery disease involving [place] coronary artery of [place] heart without angina pectoris,Old NE (myocardial [...] Oral Tablet (Lipitor)Indicatio ns:Coronary artery disease involving [place] coronary artery of [place] heart without angina pectoris,Dyslipide mona TAKE 1 TABLET DAILY IN THE MORNING 90 Tablet 3 05/27/2023 Active Insulin Glargine Solostar 100 UNIT/ML Subcutaneous Solution Pen-injector (Lantus SoloStar)Indicatio ns:DM type 2 causing renal disease, not at goal ([facility]) INJECT 20 UNITS SUBCUTANEOUSLY TWICE DAILY 30 mL 2 07/08/2023 Active Digoxin 125 MCG Oral Tablet (Lanoxin)Indicatio ns:Chronic systolic heart failure (HCC),Coronary artery disease involving [place] coronary artery of [place] heart without angina pectoris Take 1 [...] as of this encounter (statuses as of 01/31/2024) Active Problems Problem Noted Date Diagnosed Date [...] Dyslipidemia 02/18/2018 Coronary artery disease invo lving walk[place] coronary artery of [place] heart without angina pectoris 12/10/2017 PAF (paroxysmal atrial fibrillation) 12/10/2017 Type 2 diabetes mellitus wit h hemoglobin A1c goal of less than 8.0% 09/08/2013 Overview: ICD-10 update of inactive term DJD, CERVICAL SPINE 04/12/2002 GENERAL OSTEOARTHROSIS documented as of this encounter (statuses as of 01/31/2024) Resolved Problems Problem Noted Date Diagnosed Date [...] as of this encounter (statuses as of 01/31/2024) Immunizations Name Administration Dates Next Due COVID-19 mRNA, LNP-s, No Pre serve, 2-Dose Series ([employer]) 07/23/2021,11/14/2020,10/24/2020 COVID-19, MRNA-LNP, 23-24, P F, 30 MCG/0.3 mL, 12 YRS AND ABOVE, IM ([employer]) 05/26/2023 Covid-19, Mrna, Lnp-s, Pf, B ivalent, 30 Mcg, IM, 12 yrs and above ([employer]) 05/26/2022 Diptheria/Tetanus (Adult) 05/02/1992 Pneumococcal Conjugate Vacc, [...] Sign Reading Time Taken Comments Blood Pressure 152/67 01/31/2024 9:58 AM EDT Pulse 100 01/31/2024 9:58 AM EDT Temperature 36.2 C (97.2 F) 01/31/2024 9:58 AM ED T Respiratory Rate 17 01/31/2024 9:58 AM EDT Oxygen Saturation 95% 01/31/2024 9:58 AM EDT Inhaled Oxygen Concentration - - Weight 95.3 kg (210 lb) 01/31/2024 9:58 AM EDT Height - - Body Mass Index 37.2 12/17/2023 12:47 PM EDT documented in this encounter Progress Notes * Marquez Butt MD - 01/31/2024 10:17 AM EDT Outpatient Consult Note Data Source: Patient, [facility] record. Data Source: Patient, [facility] record. 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 She was admitted to [facility] between 10/21/23 - 10/27/23. Presented to the [...] (MMRp). - HER2/solomon overexpression: Negative (score 0). [place] Mismatch Repair (MMR) Immunohistochemistry Panel Results: Mismatch repair proficient (MMRp). Immunohistochemistry: MLH1 Protein: Intact. PMS2 Protein: Intact. MSH2 Protein: Intact. MSH6 Protein: Intact. Interpretation: Intact expression of all four proteins (MLH1, MSH2, MSH6 and PMS2) is present. The immunohistochemistry findings are not consistent with microsatellite instability. FISH analysis shows no evidence of HER2 amplification and as such this is considered a NEGATIVE result. [employer] PD-L1 LDT: Detected Total PD-L1 Expression: 30 [...] of brain tumor. Interval History: She is complaining generalized weakness and fatigue. She was sick on the weekend with nausea. Now overall she is feeling better. Denies any headache, dizziness, nausea, vomiting, chest pain palpitation abdominal pain, bleeding, bruising. LABS/IMAGING: Results for orders placed or performed in visit on 01/22/24 COMPREHENSIVE METABOLIC PANEL Result Value Ref Range BUN 14 6 - 20 mg/dL Creatinine 0.6 0.5 - 1.0 mg/dL Estimated Glomerular Filtration Rate >90 >=60 mL/min Sodium 140 135 - 146 mmol/L Potassium 4.7 3.5 - 5.1 mmol/L Chloride 103 98 - 107 mmol/L CO2 28 22 - 32 mmol/L Anion Gap 9 7 - 15 mmol/L Glucose 128 (H) 70 - 120 mg/dL Albumin 3.5 (L) 3.8 - 5.0 g/dL AST 21 10 - 35 U/L Alkaline Phosphatase 81 35 - 130 U/L Bilirubin, Total 0.7 <=1.2 mg/dL Calcium 9.3 8.4 - 10.2 mg/dL Protein 7.0 6.0 - 8.3 g/dL ALT 11 10 - 35 U/L CBC Result Value Ref Range WBC 4.28 4.00 - 10.80 K/uL RBC 4.04 3.85 - 5.15 M/uL HGB 9.7 (L) 12.0 - 15.3 g/dL HCT 33.2 (L) 36.0 - 45.2 % MCV 82.2 81.5 - 97.5 fL MCH 24.0 27.0 - 34.0 pg MCHC 29.2 32.0 - 36.0 g/dL RDW 18.3 11.5 - 15.5 % PLT 179 140 - 400 K/uL MPV 9.8 6.6 - 11.1 fL DIFFERENTIAL, AUTOMATED Result Value Ref Range WBC 4.28 4.00 - 10.80 K/uL Neutrophils % 70.6 40.0 - 75.0 % Lymphocytes % 21.5 18.0 - 42.0 % Monocytes % 1.6 1.0 - 11.0 % Eosinophils % 5.6 0.0 - 6.0 % Basophils % 0.7 0.0 - 2.0 % Absolute Neutrophils 3.02 1.80 - 7.70 K/uL Absolute Lymphocytes 0.92 (L) 1.00 - 4.80 K/ul Absolute Monocytes 0.07 0.00 - 1.10 K/uL Absolute Eosinophils 0.24 0.00 - 0.70 K/uL Absolute Basophils 0.03 0.00 - 0.20 K/uL DIFFERENTIAL, TECHNOLOGIST REVIEW Result Value Ref Range nRBCs *Note: Due to a large number of results and/or encounters for the requested time period, some results have not been displayed. A complete set of results can be found in Results Review. REVIEW OF SYSTEMS: General: No Fever, chills, night sweats, or weight loss. HEENT: No change in visual acuity, blurred or double vision. No epistaxis, facial pain, nasal discharge or change in hearing. Denies dysphagia, no muscosal ulceration, or sores noted. Cardiovascular: No chest pain, BROWN, or palpitations Respiratory: No shortness of breath, cough, hemoptysis, or pleuritic chest pain Gastrointestinal: No abdominal pain, nausea, vomiting, diarrhea, rectal pain or bleeding Genitourinary: Denies Hematuria or dysuria Musculoskeletal: Generalized weakness and fatigue Psychiatric: No vegetative signs [...] disease) Heart failure, systolic, due to CAD ([facility]) 03/31/2018 HTN, goal below 140/90 Menopause Mixed dyslipidemia Morbid Obesity, BMI not known Myalgia and myositis PAF (paroxysmal atrial fibrillation) ([facility]) 12/10/2017 Polymyalgia rheumatica ([facility]) Current Outpatient Medications Medication Sig Dispense Refill MULTIVITAMIN/MINERAL FORMULA TABS OR 1 TABLET DAILY 0 0 SYSTANE PRESERVATIVE FREE 0.4-0.3 % OP SOLN 1 gtt OU q2h WA 1 box 6 CALCIUM 1277-8151 MG-UNIT PO CHEW Take 1 Tablet by [...] date: 08/12/1965 Quit date: 08/12/1999 Years since quittin.4 Smokeless tobacco: Never Tobacco comments: 10/25/98 Vaping Use Vaping status: Never Used Substance Use Topics Alcohol use: Not Currently Drug use: No Review of patient's allergies indicates: Allergen Reactions Atarax [Hydroxyzine Hcl] halluzinating Cetirizine & Related HALLUCINATIONS PHYSICAL EXAMINATION: General Appearance: Healthy appearing patient in no acute distress BP 152/67 (BP Site: Left Arm, BP Position: Sitting, BP Cuff Size: Large) | Pulse 100 | Temp 36.2 C (97.2 F) (Tympanic) | Resp 17 | Wt 95.3 kg (210 lb) | SpO2 95% | BMI 37.20 kg/m | BSA 2.06 m Vitals reviewed. HEENT: No oral or [...] no palpable masses Extremeties: Good pulses bilaterally, lymphedema bilateral lower extremity ASSESSMENT: 78-year-old female with complicated past medical [...] mismatch repair proficient and HER2 Solomon negative. [id number] was 30 CPS. Endo sonographic ultrasound revealed [...] carboplatin concurrent with radiation therapy. She is complaining generalized weakness and fatigue. She would issues with nausea and vomiting on weekend. Now she is feeling better. Discussed with the patient in detail about diagnosis and prognosis and reviewed all the available blood test result with her. I encouraged her to take antiemetics pill including nausea and Compazine.We are planning to continue current treatment including weekly chemotherapy concurrent with radiation therapy. After detailed discussion she agreed proceed with treatment. She will have blood test done today before the chemotherapy today. PLAN: As above. She will return clinic for follow-up in 2 weeks. The patient voiced understanding of all of the above. All questions and concerns were addressed in an apparently satisfactory manner. Marquez Butt MD (This note was completed using the dictation program Fluency Direct. As such, there may be misspellings, word substitutions, or other variations that should not change the essence of the clinical content of this encounter note. If there is need for further clarification, please direct questions to me.) documented in this encounter Nursing Notes * Annie Paz, MED ASSIST - 01/31/2024 10:04 AM EDT Patient identifed by name and [...] it for you? ALREADY ACTIVE Filed Vitals: 01/31/24 0958 BP: 152/67 Pulse: 100 Resp: 17 Temp: 36.2 C (97.2 F) TempSrc: Tympanic SpO2: 95% Weight: 95.3 kg (210 lb) Patient was instructed to not get up on the exam table/exam chair until directed and assisted by their provider; patient is to remain seated in the chair/ wheelchair/ exam table/ exam chair for fall prevention and safety reasons. Patient is aware to have assistance to step down off exam table/exam chair with personnel. Patient voiced full comprehension of instructions. documented in this encounter Miscellaneous Notes * Addendum Note - Marquez Butt MD - 01/31/2024 12:40 PM EDTAddended by: MARQUEZ BUTT on: 01/31/2024 12:40 PM Modules accepted: Orders documented in this encounter Plan of Treatment Upcoming Encounters Date Type Department Care Team (Late st Contact Info) Description 02/14/2024 8:00 AM EDT Office Visit Hematology/Oncology [facility] [place] [address] [place] [phone] Marquez Butt MD [address] [facility] [place] [address] 03/08/2024 10:00 AM EDT Cardiac Studies Cardiology, [facility] [address] [facility] [place] [address] [facility] [address] [facility] [place] [address] 04/05/2024 1:00 PM EDT Office Visit [facility] [address] [facility] [place] [phone] Jason West MD [address] [place] [address] Health Maintenance Due Date Last Done Comments Hepatitis C Screening 1963 COVID-19 Vaccine (2022- season) 2023 05/26/2023, 05/26/2022, 07/23/2021, Additional history exists Albumin/Creatinine Ratio 10/03/2023 023, 08/28/2021, 11/18/2020, Additional history exists CKD PHOS USE SMARTSET 41120 10/03/2023 03/0 09/2022, 03/17/2021, 08/18/2019, Additional history exists Depression Monitoring 12/03/2023 12/02/2022 DIG LEVEL FOR MEDICATION MONITORING YEARLY 03/08/2024 03/08/2023, 10/02/2022, 07/29/2021 Influenza Vaccine (FLU shot) (#1) 2024 05/26/2023, 05/22/2022, 04/30/2021, Additional history exists HbA1c 06/18/2024 12/17/2023, 08/0 01/2023, 10/02/2022, Additional history exists GFR 08/02/2024 01/31/2024, 06/09/2023, 01/11/2024, Additional history exists Diabetic Eye Exam 11/01/2024 11/02/2023, , 04/07/2019, Additional history exists Diabetic Foot Exam 11/01/2024 11/02/2023, 0 03/17/2021, 12/27/2019, Additional history exists CKD HGB USE SMARTSET 31947 01/30/202501/30, 01/31/2024, 01/22/2024, Additional history exists DXA Scan 03/21/2026 03/21/2019, 07/02, 07/12/2013, Additional history exists DTaP,Tdap,and Td Vaccines (3 - Td or Tdap) 06/29/2033 06/29/2023, 02/28/2008, 05/02/1992 Pneumococcal Vaccine: 65+ Years Completed 10/24/2014, 12/28/2012, 12/16/2006, Additional history exists Zoster Vaccines Completed 12/07/2018, 06/28/2018 GARDASIL-HPV IMMUNIZATION SERIES Aged Out No longer [...] for antineoplastic chemotherapy documented in this encounter Care Teams Email Specialist Relationship Specialty Start Date End Date Jason West MD [address] [place] [address] PCP - General 02/06/03 documented as of this encounter"
--- OUTSIDE RECORDS SUMMARY | 2024-02-23 02:47 | External Medical Summary | Summary of Care ---
Author Name Unknown Organization [facility] Address [address] [place] [facility] [place] [address] Phone [phone] Care Team Providers Care Densitometer Reader Name Role Phone Jason West MD Primary Care Provider +1- [phone] Reason for Visit * Reason Comments Outpatient Testing Encounter Details Date Type Department Care Team (Late st Contact Info) Description 01/31/2024 10:40 AM EDT Laboratory Laboratory [facility] [place] [address] [place] [address] [place], [address] [place] [address] GE junction carcinoma (HCC) Allergies Active Allergy Reactions Criticality Noted Date Comments Hydroxyzine Hcl 05/12/2012 halluzinating Cetirizine & Related 02/11/1999 HALLUCINATIONS documented as of this encounter (statuses as of 01/31/2024) Medications Medication Sig Dispensed Refills Start Date End Date Status MULTIVITAMIN/OUTSIDE PLANT SUPERVISOR AL FORMULA TABS OR 1 TABLET DAILY 0 0 12/02/2001 Active SYSTANE PRESERVATIVE FREE 0.4-0.3 % OP SOLNIndications:Ot her anterior corneal dystrophies 1 gtt OU q2h WA 1 box 6 12/03/2008 Active CALCIUM 9702-7497 MG-UNIT PO CHEW Take 1 Tablet by [...] 81 MG TBECIndications:Co ronary artery disease involving kake coronary artery of kake heart without angina pectoris Take 1 Tab by mouth daily. 30 Tab 11 07/17/2019 Active Loratadine 10 MG Oral Capsule Take 1 Capsule by mouth in the morning. Active Magnesium 400 MG Capsule Take 1 by mouth daily. 30 Cap 11 01/11/2020 Active acetaminophen (TYLENOL) 325 MG Tablet 2 Tablets. 04/13/2020 Active Nitroglycerin 0.4 MG Sublingual Tablet Sublingual (Nitrostat)Indicat ions:Coronary artery disease involving kake coronary artery of kake heart without angina pectoris,Old ND (myocardial infarction) [...] Oral Tablet (Lipitor)Indicatio ns:Coronary artery disease involving kake coronary artery of kake heart without angina pectoris,Dyslipide mona TAKE 1 TABLET DAILY IN THE MORNING 90 Tablet 3 05/27/2023 Active Insulin Glargine Solostar 100 UNIT/ML Subcutaneous Solution Pen-injector (Lantus SoloStar)Indicatio ns:DM type 2 causing renal disease, not at goal ([facility]) INJECT 20 UNITS SUBCUTANEOUSLY TWICE DAILY 30 mL 2 07/08/2023 Active Digoxin 125 MCG Oral Tablet (Lanoxin)Indicatio ns:Chronic systolic heart failure (HCC),Coronary artery disease involving kake coronary artery of kake heart without angina pectoris Take 1 Tablet [...] Dyslipidemia 02/18/2018 Coronary artery disease invo lving kake coronary artery of kake heart without angina pectoris 12/10/2017 PAF (paroxysmal [...] mRNA, LNP-s, No Pre serve, 2-Dose Series ([email or web address]) 07/23/2021,11/14/2020,10/24/2020 COVID-19, MRNA-LNP, 23-24, P F, 30 MCG/0.3 mL, 12 YRS AND ABOVE, IM ([employer]-Comirnat) 05/26/2023 Covid-19, Mrna, Lnp-s, Pf, B ivalent, 30 Mcg, IM, 12 yrs and above ([email or web address]) 05/26/2022 Pneumococcal Conjugate Vacc, 13 Valent (Prevnar) [...] 02/14/2024 8:00 AM EDT Office Visit Hematology/Oncology [facility] [place] [address] [facility] [place] [phone] Marquez Kolb MD [address] [facility] [place] [address] 03/08/2024 10:00 AM EDT Cardiac Studies Cardiology, [facility] [address] [facility] [place] [address] [facility] [address] [facility] [place] [address] 04/05/2024 1:00 PM EDT Office Visit [facility] [address] [place] [phone] Jason West MD [address] [place] [address] Pending Results Name Type Priority Associated Diagnoses Date /Time CBC WITH WBC DIFFERENTIAL Lab STAT GE junction carcinoma (HCC) 01/31/2024 11:15 AM EDT COMPREHENSIVE METABOLIC PANEL Lab STAT GE junction carcinoma (HCC) 01/31/2024 11:15 AM EDT CBC Lab STAT GE junction carcinoma (HCC) 01/31/2024 11:15 AM EDT DIFFERENTIAL, AUTOMATED Lab STAT GE junction carcinoma (HCC) 01/31/2024 11:15 AM EDT DIFFERENTIAL, TECHNOLOGIST REVIEW Lab Routine GE junction carcinoma (HCC) 01/31/2024 11:15 AM EDT Health Maintenance Due Date Last Done Comments Hepatitis C Screening 1963 COVID-19 Vaccine ( season) 2023 05/26/2023, 05/26/2022, 07/23/2021, Additional history exists Albumin/Creatinine Ratio 10/03/202310/02/2 023, 08/28/2021, 11/18/2020, Additional history exists CKD PHOS USE SMARTSET 50295 10/03/2023 03/0 09/2022, 03/17/2021, 08/18/2019, Additional history exists Depression Monitoring 12/03/2023 12/02/2022 DIG LEVEL FOR MEDICATION MONITORING YEARLY 03/08/2024 03/08/2023, 10/02/2022, 07/29/2021 Influenza Vaccine (FLU shot) (#1) 2024 05/26/2023, 05/22/2022, 04/30/2021, Additional history exists HbA1c 06/18/2024 12/17/2023, 08/0 01/2023, 10/02/2022, Additional history exists GFR 07/23/2024 01/22/2024, 12/31, 12/17/2023, Additional history exists Diabetic Eye Exam 11/01/2024 11/02/2023, , 04/07/2019, Additional history exists Diabetic Foot Exam 11/01/2024 11/02/2023, 0 03/17/2021, 12/27/2019, Additional history exists CKD HGB USE SMARTSET 14911 01/21/202501/21, 01/22/2024, 01/11/2024, Additional history exists DXA Scan 03/21/2026 03/21/2019, [...] cardia documented in this encounter Care Teams Densitometer Reader Relationship Specialty Start Date End Date Jason West MD [address] [place] [facility] [place] [address] PCP - General 02/06/03 documented as of this encounter
--- OUTSIDE RECORDS SUMMARY | 2024-02-23 02:47 | External Medical Summary | Summary of Care ---
Author Name Unknown Organization [facility] Address [address] [place] [address] Phone [phone] Care Team Providers Care Nursery [employer] Teacher Name Role Phone Jason West MD Primary Care Provider [phone]- [phone] Reason for Visit * Reason Comments Outpatient Testing Encounter Details Date Type Department Care Team (Late st Contact Info) Description 02/01/2024 11:50 AM EDT Laboratory Laboratory, [place] [address] [place] [phone] [place], Laboratory [address] [place] [address] Hyperkalemia Allergies Active Allergy Reactions Criticality Noted Date Comments Hydroxyzine Hcl 05/12/2012 halluzinating Cetirizine & Related 02/11/1999 HALLUCINATIONS documented as of this encounter (statuses as of 02/01/2024) Medications Medication Sig Dispensed Refills Start Date End Date Status MULTIVITAMIN/BOATING SAFETY OFFICER AL FORMULA TABS OR 1 TABLET DAILY 0 0 12/02/2001 Active SYSTANE PRESERVATIVE FREE 0.4-0.3 % OP SOLNIndications:Ot her anterior corneal dystrophies 1 gtt OU q2h WA 1 box 6 12/03/2008 Active CALCIUM 7644-8472 MG-UNIT PO CHEW Take 1 Tablet by [...] 81 MG TBECIndications:Co ronary artery disease involving mcgrath coronary artery of mcgrath heart without angina pectoris Take 1 Tab by mouth daily. 30 Tab 11 07/17/2019 Active Loratadine 10 MG Oral Capsule Take 1 Capsule by mouth in the morning. Active Magnesium 400 MG Capsule Take 1 by mouth daily. 30 Cap 11 01/11/2020 Active acetaminophen (TYLENOL) 325 MG Tablet 2 Tablets. 04/13/2020 Active Nitroglycerin 0.4 MG Sublingual Tablet Sublingual (Nitrostat)Indicat ions:Coronary artery disease involving mcgrath coronary artery of mcgrath heart without angina pectoris,Old NE (myocardial infarction) [...] Oral Tablet (Lipitor)Indicatio ns:Coronary artery disease involving mcgrath coronary artery of mcgrath heart without angina pectoris,Dyslipide mona TAKE 1 [...] systolic heart failure (HCC),Coronary artery disease involving mcgrath coronary artery of mcgrath heart without angina pectoris Take 1 Tablet [...] as of this encounter (statuses as of 02/01/2024) Active Problems Problem Noted Date Diagnosed Date [...] Dyslipidemia 02/18/2018 Coronary artery disease invo lving mcgrath coronary artery of mcgrath heart without angina pectoris 12/10/2017 PAF (paroxysmal atrial fibrillation) 12/10/2017 Type 2 diabetes mellitus wit h hemoglobin A1c goal of less than 8.0% 09/08/2013 Overview: ICD-10 update of inactive term DJD, CERVICAL SPINE 04/12/2002 GENERAL OSTEOARTHROSIS documented as of this encounter (statuses as of 02/01/2024) Resolved Problems Problem Noted Date Diagnosed Date [...] as of this encounter (statuses as of 02/01/2024) Immunizations Name Administration Dates Next Due COVID-19 mRNA, LNP-s, No Pre serve, 2-Dose Series ([email or web address]) 07/23/2021,11/14/2020,10/24/2020 COVID-19, MRNA-LNP, 23-24, P F, 30 MCG/0.3 mL, 12 YRS AND ABOVE, IM (Inventalator-Comirnat) 05/26/2023 Covid-19, Mrna, Lnp-s, Pf, B ivalent, 30 Mcg, IM, 12 yrs and above ([email or web address]) 05/26/2022 Pneumococcal Conjugate Vacc, 13 Valent (Prevnar) [...] Description 02/05/2024 10:00 AM EDT [facility] [address] [place] [address] [place] [address] [place] [address] 02/07/2024 1:00 PM EDT Hem/Onc Treatment [facility]ematology[facility], [place] [facility] [phone] 02/12/2024 10:00 AM EDT [facility] [address] [place] [phone] [place] [facility] [place] [address] 02/14/2024 8:00 AM EDT Office Visit Hematology/Oncology [facility] Jeny [place] [address] [place] [phone] Marquez Kolb MD [address] [place] [address] 02/14/2024 8:30 AM EDT Hem/Onc Treatment Hematology/Oncology Treatment, [place] [address] [facility] [place]h [place] [phone] Jeny, Chair [address] Hem Onc [place] [address] [place] [address] 03/08/2024 10:00 AM EDT Cardiac Studies Cardiology, [facility] [address] [facility] [place] [address] [facility] [address] [facility] [place] [address] 04/05/2024 1:00 PM EDT Office Visit [facility] [address] [facility] [address] Jason West MD [address] [facility] [place] [phone] Pending Results Name Type Priority Associated Diagnoses Date /Time COMPREHENSIVE METABOLIC PANEL Lab STAT Hyperkalemia 02/01/2024 11:50 AM EDT Health Maintenance Due Date Last Done Comments Hepatitis C Screening 1963 COVID-19 Vaccine ( season) 2023 05/26/2023, 05/26/2022, 07/23/2021, Additional history exists Albumin/Creatinine Ratio 10/03/2023 023, 08/28/2021, 11/18/2020, Additional history exists CKD PHOS USE SMARTSET 82913 10/03/2023 03/0 09/2022, 03/17/2021, 08/18/2019, Additional history [...] Additional history exists CKD HGB USE SMARTSET 29540 01/30/202501/30, 01/31/2024, 01/22/2024, Additional history exists DXA [...] as of this encounter Visit Diagnoses Diagnosis Hyperkalemia Hyperpotassemia documented in this encounter Care Teams Nursery [employer] Teacher Relationship Specialty Start Date End Date Jason West MD [address] [place] [address] PCP - General 02/06/03 documented as of this encounter
--- OUTSIDE RECORDS SUMMARY | 2024-02-23 02:47 | External Medical Summary ---
Author Name Unknown Address Unknown Organization K01:LABORATORY [facility] - [facility] [place] [address] Laboratory Report Ordering Provider Test Date Status DAQUAN MOHAN 02/01/2024 11:50:54 Final Observation Date Value Abnormality Reference (Units ) Status BUN 02/01/2024 11:50:54 21 Above high normal 6-20 (mg/dL) Final Creatinine 02/01/2024 11:50:54 0.7 0.5-1.0 (mg/dL) Final Glomerular filtration rate/1.73 sq M.predicted [Volume Rate/Area] in Serum, Plasma or Blood by Creatinine-based formula (CKD-EPI) 02/01/2024 11:50:54 85 >=60 (mL/min) Final eGFR is calculated based on the CKD-EPI 2020 equation Sodium 02/01/2024 11:50:54 140 135-146 (m mol/L) Final Potassium 02/01/2024 11:50:54 4.7 3.5-5.1 (m mol/L) Final Cl 02/01/2024 11:50:54 102 98-107 (mm ol/L) Final CO2 02/01/2024 11:50:54 22 22-32 (mmo l/L) Final Anion gap 02/01/2024 11:50:54 16 Above high normal 7- 15 (mmol/L) Final Glucose 02/01/2024 11:50:54 128 Above high normal 70 -120 (mg/dL) Final Albumin 02/01/2024 11:50:54 3.9 3.8-5.0 (g /dL) Final AST (Aspartate aminotransferase) 02/01/2024 11:50:54 24 10-35 (U/L) Fin al Alk Phos 02/01/2024 11:50:54 75 35-130 (U/ L) Final Bilirubin, Total 02/01/2024 11:50:54 0.7 <=1 .2 (mg/dL) Final Calcium 02/01/2024 11:50:54 9.3 8.4-10.2 ( mg/dL) Final Protein 02/01/2024 11:50:54 6.6 6.0-8.3 (g /dL) Final ALT (Alanine aminotransferase) 02/01/2024 11:50:54 23 10-35 (U/L) Axel lopez Performing Location LABORATORY [facility] - [address] [facility] [address]
--- OUTSIDE RECORDS SUMMARY | 2024-02-23 02:47 | External Medical Summary | Summary of Care ---
Author Name Unknown Organization [facility] Address [address] [place] [address] Phone [phone] Care Team Providers Care Information Engineer Name Role Phone Jason West MD Primary Care Provider [phone]- [phone] Encounter Details Date Type Department Care Team (Late st Contact Info) Description 01/31/2024 Orders Only Hematology/Oncology Treatment, [place] [address] [place] [address] Marquez Kolb MD [address] [place] [address] Hyperkalemia* Allergies Active Allergy Reactions Criticality Noted Date Comments Hydroxyzine Hcl 05/12/2012 halluzinating Cetirizine & Related 02/11/1999 HALLUCINATIONS documented as of this encounter (statuses as of 01/31/2024) Medications Medication Sig Dispensed Refills Start Date End Date Status MULTIVITAMIN/BEDSPREAD SEAMER AL FORMULA TABS OR 1 TABLET DAILY 0 0 12/02/2001 Active SYSTANE PRESERVATIVE FREE 0.4-0.3 % OP SOLNIndications:Ot her anterior corneal dystrophies 1 gtt OU q2h WA 1 box 6 12/03/2008 Active CALCIUM 5574-2641 MG-UNIT PO CHEW Take 1 Tablet by [...] 81 MG TBECIndications:Co ronary artery disease involving [place] coronary artery of [place] heart without angina pectoris Take 1 Tab by mouth daily. 30 Tab 11 07/17/2019 Active Loratadine 10 MG Oral Capsule Take 1 Capsule by mouth in the morning. Active Magnesium 400 MG Capsule Take 1 by mouth daily. 30 Cap 11 01/11/2020 Active acetaminophen (TYLENOL) 325 MG Tablet 2 Tablets. 04/13/2020 Active Nitroglycerin 0.4 MG Sublingual Tablet Sublingual (Nitrostat)Indicat ions:Coronary artery disease involving [place] coronary artery of [place] heart without angina pectoris,Old [place] (myocardial infarction) Place 1 Tablet under the tongue every 5 minutes as needed for Pain, Chest. 25 Tablet 5 09/03/2022 Active Insulin Pen Needle 32G X 5 MMIndications:DM type 2 causing renal disease, not at goal ([facility]) use to inject lantus twice per day 200 Each 3 03/26/2023 Active OneTouch Verio In Vitro Strip (Glucose Blood)Indications: 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 Dx E11.9 300 Strip 2 05/03/2023 Active Atorvastatin Calcium 40 MG Oral Tablet (Lipitor)Indicatio ns:Coronary artery disease involving [place] coronary artery of [place] heart without angina pectoris,Dyslipide mona TAKE 1 TABLET DAILY IN THE MORNING 90 Tablet 3 05/27/2023 Active Insulin Glargine Solostar 100 UNIT/ML Subcutaneous Solution Pen-injector (Lantus SoloStar)Jasmintio ns:DM type 2 causing renal disease, not at goal ([facility]) INJECT 20 UNITS SUBCUTANEOUSLY TWICE DAILY 30 mL 2 07/08/2023 Active Digoxin 125 MCG Oral Tablet (Lanoxin)Jasmintio ns:Chronic systolic heart failure (HCC),Coronary artery disease involving [place] coronary artery of [place] heart without angina pectoris Take 1 Tablet [...] Dyslipidemia 02/18/2018 Coronary artery disease invo lving [place] coronary artery of [place] heart without angina pectoris 12/10/2017 PAF (paroxysmal [...] mRNA, LNP-s, No Pre serve, 2-Dose Series (Banks[employer]) 07/23/2021,11/14/2020,10/24/2020 COVID-19, MRNA-LNP, 23-24, P F, 30 MCG/0.3 mL, 12 YRS AND ABOVE, IM ([facility]) 05/26/2023 Covid-19, Mrna, Lnp-s, Pf, B ivalent, 30 Mcg, IM, 12 yrs and above ([employer]) 05/26/2022 Pneumococcal Conjugate Vacc, 13 Valent (Prevnar) [...] Description 02/05/2024 10:00 AM EDT Laboratory Laboratory, [facility] [address] [place] [phone] [place] [address] [facility] [place] [address] 02/07/2024 1:00 PM EDT Hem/Onc Treatment [facility] [place] [facility] [phone] 02/12/2024 10:00 AM EDT Laboratory Laboratory, [facility] [address] [place] [phone] [place] [address] [facility] [place] [address] 02/14/2024 8:00 AM EDT Office [facility] [address] [place] [phone] Marquez Kolb MD 200 [facility] [place] [address] 02/14/2024 8:30 AM EDT Hem/Onc Treatment Hematology/Oncology Treatment, [place] [address] [facility], [place] [phone] Jeny, Chair 9 Hem Onc [facility] 200 [facility] [place] [address] 03/08/2024 10:00 AM EDT Cardiac Studies Cardiology, [facility] [address] [place] [address] [facility] [address] [place] [address] 04/05/2024 1:00 PM EDT Office Visit [facility] [address] [facility] [address] Jason West MD [address] [facility] [place] [address] Scheduled Orders Name Type Priority Associated Diagnoses Orde r Schedule COMPREHENSIVE METABOLIC PANEL Lab STAT Hyperkalemia Expected: 02/01/2024, Expires: 03/02/2024 Health Maintenance Due Date Last Done Comments Hepatitis C Screening 1963 COVID-19 Vaccine ( season) 2023 05/26/2023, 05/26/2022, 07/23/2021, Additional history exists Albumin/Creatinine Ratio 10/03/2023 023, 08/28/2021, 11/18/2020, Additional history exists CKD PHOS USE SMARTSET 60225 10/03/2023 03/0 09/2022, 03/17/2021, 08/18/2019, Additional history exists Depression Monitoring 12/03/2023 12/02/2022 DIG LEVEL FOR MEDICATION MONITORING YEARLY 03/08/2024 03/08/2023, 10/02/2022, 07/29/2021 Influenza Vaccine (FLU shot) (#1) 2024 05/26/2023, 05/22/2022, 04/30/2021, Additional history exists HbA1c 06/18/2024 12/17/2023, 08/0 01/2023, 10/02/2022, Additional history exists GFR 08/02/2024 01/31/2024, 06/2 09/2023, 01/11/2024, Additional history exists Diabetic Eye Exam 11/01/2024 11/02/2023, , 04/07/2019, Additional history exists Diabetic Foot Exam 11/01/2024 11/02/2023, 0 03/17/2021, 12/27/2019, Additional history exists CKD HGB USE SMARTSET 07136 01/30/202501/30, 01/31/2024, 01/22/2024, Additional history exists DXA [...] as of this encounter Visit Diagnoses Diagnosis Hyperkalemia- Primary Hyperpotassemia documented in this encounter Care Teams Information Engineer Relationship Specialty Start Date End Date Jason West MD [address] [place] [address] PCP - General 02/06/03 documented as of this encounter
--- OUTSIDE RECORDS SUMMARY | 2024-02-23 02:47 | External Medical Summary | Summary of Care ---
Author Name Unknown Organization [facility] Address [address] [facility] [address] Phone [phone] Care Team Providers Care Graduate Teaching Associate Name Role Phone Jason West MD Primary Care Provider [phone]- [phone] Reason for Visit * Reason Comments Chemotherapy Held Carbo/Taxol tod ay per provider. 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)* Allergies Active Allergy Reactions Criticality Noted Date Comments Hydroxyzine Hcl 05/12/2012 halluzinating Cetirizine & Related 02/11/1999 HALLUCINATIONS documented as of this encounter (statuses as of 01/31/2024) Medications Medication Sig Dispensed Refills Start Date End Date Status MULTIVITAMIN/COMMERCIAL PILOT AL FORMULA TABS OR 1 TABLET DAILY 0 0 12/02/2001 Active SYSTANE PRESERVATIVE FREE 0.4-0.3 % OP SOLNIndications:Ot her anterior corneal dystrophies 1 gtt OU q2h WA 1 box 6 12/03/2008 Active CALCIUM 6001-5337 MG-UNIT PO CHEW Take 1 Tablet by [...] 81 MG TBECIndications:Co ronary artery disease involving [place] coronary artery of [place] heart without angina pectoris Take 1 [...] Tablet Sublingual (Nitrostat)Indicat ions:Coronary artery disease involving [place] coronary artery of [place] heart without angina pectoris,Old [place] (myocardial infarction) [...] Oral Tablet (Lipitor)Indicatio ns:Coronary artery disease involving [place] coronary artery of [place] heart without angina pectoris,Dyslipide mona TAKE [...] systolic heart failure (HCC),Coronary artery disease involving [place] coronary artery of [place] heart without angina pectoris Take 1 [...] Dyslipidemia 02/18/2018 Coronary artery disease invo lving [place] coronary artery of [place] heart without angina pectoris 12/10/2017 PAF [...] mRNA, LNP-s, No Pre serve, 2-Dose Series (Telly) 07/23/2021,11/14/2020,10/24/2020 COVID-19, MRNA-LNP, 23-24, P F, 30 MCG/0.3 mL, 12 YRS AND ABOVE, IM ([employer]) 05/26/2023 Covid-19, Mrna, Lnp-s, Pf, B [...] on file documented as of this encounter Progress Notes * Zeyad Hernandez RN - 01/31/2024 1:29 PM EDT Pt refusing to have labs done again today. Advised patient that she may have them done in [place] tomorrow. Pt made aware that if she were to have any abnormal chest palpitations, shortness of breath she should be seen in the ER. documented in this encounter Nursing Notes * Zeyad Hernandez RN - 01/31/2024 2:45 PM EDT Pt infusion completed. Pt IV site removed with catheter tip intact. Pt ambulated from treatment room in stable condition. Goals: Pt will remain free from injury. Possible barriers to meeting goals: IV line Stability of the patient: Moderately stable - low risk of patient condition declining or worsening Summary regarding today's goals: Met: Pt remained free from injury. * Zeyad Hernandez RN - 01/31/2024 1:12 PM EDT Chair 5. Reviewed labs with Dr. Kolb. Per Dr. Kolb: - Hold treatment 1 week - Give 1L NSS over 2 hours today - Re-check labs after hydration in regards to potassium level Safety and Risk for Injury Patient will remain free from injury. Ensure appropriate safety devices are available. Provide and maintain safe environment. documented in this encounter Plan of Treatment Upcoming Encounters Date Type Department Care Team (Late st Contact Info) Description 02/05/2024 10:00 AM EDT Laboratory Laboratory, [address] [place] [address] [place] [facility] [address] [facility] [place], [place] [address] 02/07/2024 1:00 PM EDT Hem[facility] 200 [facility], [place] [phone] 02/12/2024 10:00 AM EDT Laboratory Laboratory, [facility] 132 [facility] [place] [phone] [place], [facility] 132 [facility] [place] [address] 02/14/2024 8:00 AM EDT Office Visit Hematology/Oncology [facility] 200 [facility] [place] [phone] Marquez Kolb MD 200 [facility] [place] [address] 02/14/2024 8:30 AM EDT Hem/Onc Treatment Hematology/Oncology Treatment, [place] 200 [facility], [place] [phone] Jeny, Chair 9 Hem Onc [address], [place] [address] 03/08/2024 10:00 AM EDT Cardiac Studies Cardiology, [facility] 132 [facility] [place] [address] [place] mir[place] [facility] 132 [facility] [address] 04/05/2024 1:00 PM EDT Office Visit [facility] [address] [place] [phone] Jason West MD [address] [place] [address] Health Maintenance Due Date Last Done Comments Hepatitis C Screening 1963 COVID-19 Vaccine (2022- season) 2023 05/26/2023, 05/26/2022, 07/23/2021, Additional history exists Albumin/Creatinine Ratio 10/03/2023 023, 08/28/2021, 11/18/2020, Additional history exists CKD PHOS USE SMARTSET 84426 10/03/2023 03/0 09/2022, 03/17/2021, 08/18/2019, Additional history [...] Additional history exists CKD HGB USE SMARTSET 00748 01/30/202501/30, 01/31/2024, 01/22/2024, Additional history exists DXA [...] neoplasm of cardia documented in this encounter Administered Medications Active Administered Medications - up to 3 most recent administrations Medication Order MAR Action Action Date Dose Rate Site hEParin 100 UNIT/ML Lock Flush inj 500 Units 500 Units (5 mL), IV Lock, PRN Other, IV Flush, Starting on Wed01/31/24 at 1258, Until Wed02/01/24 at 1257, For 24 hours, Do not flush if lock, PICC, or central line not in place; IV infusing or unable to flush. sodium chloride 0.9 % flush central line 10 mL 10 mL, IV Push, PRN Other, IV Flush, Starting on Wed01/31/24 at 1258, Until Wed02/01/24 at 1257, For 24 hours, Do not flush if lock, PICC, or central line not in place; IV infusing or unable to flush. Inactive Administered Medications - up to 3 most recent administrations Medication Order MAR Action Action Date Dose Rate Site NSS infusion FOR HYDRATION Intravenous, at 500 mL/hr Administer over 2 Hours, ONCE, 1 dose, On Wed01/31/24 at 1400 Start Infusion 01/31/2024 1:04 PM EDT 1,000 mL 500 mL/hr documented in this encounter Care Teams Graduate Teaching Associate Relationship Specialty Start Date End Date Jason West MD [address] [place] [address] PCP - General 02/06/03 documented as of this encounter
--- OUTSIDE RECORDS SUMMARY | 2024-02-23 02:47 | External Medical Summary | Summary of Care ---
Author Name Unknown Organization [facility] Address [address] [place] [address] Phone [phone] Care Team Providers Care Ball Truing Machine Operator Name Role Phone Jason West MD Primary Care Provider +1- [phone] Reason for Visit * Reason Onset Date Comments Scan To Read 11/02/2023 Encounter Details Date Type Department Care Team (Late st Contact Info) Description 11/02/2023 Telephone [facility] [address] [place] [address] Jason West MD [address] [place] [address] Scan To Read Allergies Active Allergy Reactions Criticality Noted Date Comments Hydroxyzine Hcl 05/12/2012 halluzinating Cetirizine & Related 02/11/1999 HALLUCINATIONS documented as of this encounter (statuses as of 02/01/2024) Medications Medication Sig Dispensed Refills Start Date End Date Status MULTIVITAMIN/HEAD OF RESEARCH & INSIGHTS AL FORMULA TABS OR 1 TABLET DAILY 0 0 12/02/2001 Active SYSTANE PRESERVATIVE FREE 0.4-0.3 % OP SOLNIndications:Ot her anterior corneal dystrophies 1 gtt OU q2h WA 1 box 6 12/03/2008 Active CALCIUM 5842-6234 MG-UNIT PO CHEW Take 1 Tablet by [...] artery of [place] heart without angina pectoris,Old [place] (myocardial infarction) Place 1 Tablet under the tongue every 5 minutes as needed for Pain, Chest. 25 Tablet 5 09/03/2022 Active Insulin Pen Needle 32G X 5 MMIndications:DM type 2 causing renal disease, not at goal ([facility]) use to inject lantus twice per day 200 Each 3 03/26/2023 Active OneTouch Verio In Vitro Strip (Glucose Blood)Indications: DM type 2 causing renal disease ([facility]) Check blood sugars one [...] Take 1 Capsule by mouth daily. Active documented as of this encounter (statuses [...] mRNA, LNP-s, No Pre serve, 2-Dose Series ([employer]) 07/23/2021,11/14/2020,10/24/2020 COVID-19, MRNA-LNP, 23-24, P F, 30 [...] encounter Miscellaneous Notes * Telephone Encounter - Jonas Coles MD - 11/02/2023 12:46 PM EDT Retinal Scan Imaging Ciara Baig [id number] Retinal Scan Interpretation: There is no retinopathy in both eyes Diabetes Retinal Imaging Care Plan: The retinal scan results are normal - I will forward this encounter to the Ophthalmology DM Letter Pool [[id number]], they will send a normal retinal scan letter to the patient, and the patient will be seen back for a yearly scan. Jonas Coles MD 11/02/2023 12:46 PM * Telephone Encounter - Lissa Powell LPN - 11/02/2023 11:28 AM EDT A Diabetic Telemed Eye image was taken and requires your interpretation for Dr West. Please check your inbasket for image. Patient prefers to be seen at [facility] if a follow-up appointment is needed. documented in this encounter Plan of Treatment Upcoming Encounters Date Type Department Care Team (Late st Contact Info) Description 02/05/2024 10:00 AM EDT [facility] [place] [address] [place] [phone] [place] [facility] [place] [address] 02/07/2024 1:00 PM EDT Hem/Onc Treatment Hematology/Oncology Treatment, [place] [facility] [phone] 02/12/2024 10:00 AM EDT Laboratory [facility], [facility] [place] [address] [facility] [place] [phone] [place] [address] [facility] [place] [address] 02/14/2024 8:00 AM EDT Office Visit Hematology/Oncology [facility] Jeny [address] [place] [phone] Marquez Kolb MD [address] [place] [address] [place] [address] 02/14/2024 8:30 AM EDT Hem/Onc Treatment Hematology/Oncology Treatment, [place] [facility] [phone] Jeny, Chair 9 Hem Onc [place] [address] [place] [address] 03/08/2024 10:00 AM EDT Cardiac Studies [facility], [facility] [place] [address] [facility] [place] [address] [place], [place] [address] [facility] [place] [address] 04/05/2024 1:00 PM EDT Office Visit [facility] [place] [address] [facility] [place] [phone] Jason West MD [address] [place] [facility] [place] [address] Health Maintenance Due Date Last Done Comments Hepatitis C Screening 1963 COVID-19 Vaccine ( season) 2023 05/26/2023, 05/26/2022, 07/23/2021, Additional history exists Albumin/Creatinine Ratio 10/03/2023 023, 08/28/2021, 11/18/2020, Additional history exists CKD PHOS USE SMARTSET 25221 10/03/2023 03/0 09/2022, 03/17/2021, 08/18/2019, Additional history [...] Additional history exists CKD HGB USE SMARTSET 41467 01/30/202501/30, 01/31/2024, 01/22/2024, Additional history exists DXA [...] filedocumented as of this encounter Care Teams Ball Truing Machine Operator Relationship Specialty Start Date End Date Jason West MD [address] [place] [address] PCP - General 02/06/03 documented as of this encounter
--- OUTSIDE RECORDS SUMMARY | 2024-02-23 02:47 | External Medical Summary | Summary of Care ---
Author Name Unknown Organization [facility] Address [address] [facility] [address] Phone [phone] Care Team Providers Care Cnc Machine Programmer Name Role Phone Jason West MD Primary Care Provider [phone]- [phone] Encounter Details Date Type Department Care Team (Late st Contact Info) Description 01/31/2024 Orders Only Hematology/Oncology [facility] [place] [facility] [place] [address] Marquez Kolb MD [facility] [place] [address] Allergies Active Allergy Reactions Criticality Noted Date Comments Hydroxyzine Hcl 05/12/2012 halluzinating Cetirizine & Related 02/11/1999 HALLUCINATIONS documented as of this encounter (statuses as of 01/31/2024) Medications Medication Sig Dispensed Refills Start Date End Date Status MULTIVITAMIN/CAISSON WORKER AL FORMULA TABS OR 1 TABLET DAILY 0 0 12/02/2001 Active SYSTANE PRESERVATIVE FREE 0.4-0.3 % OP SOLNIndications:Ot her anterior corneal dystrophies 1 gtt OU q2h WA 1 box 6 12/03/2008 Active CALCIUM 0702-5715 MG-UNIT PO CHEW Take 1 Tablet by [...] 81 MG TBECIndications:Co ronary artery disease involving false pass coronary artery of false pass heart without angina pectoris Take 1 Tab by mouth daily. 30 Tab 11 07/17/2019 Active Loratadine 10 MG Oral Capsule Take 1 Capsule by mouth in the morning. Active Magnesium 400 MG Capsule Take 1 by mouth daily. 30 Cap 11 01/11/2020 Active acetaminophen (TYLENOL) 325 MG Tablet 2 Tablets. 04/13/2020 Active Nitroglycerin 0.4 MG Sublingual Tablet Sublingual (Nitrostat)Indicat ions:Coronary artery disease involving false pass coronary artery of false pass heart without angina pectoris,[place] (myocardial infarction) Place 1 Tablet under the tongue every 5 minutes as needed for Pain, Chest. 25 Tablet 5 09/03/2022 Active Insulin Pen Needle 32G X 5 MMIndications:DM type 2 causing renal disease, not at goal ([facility]) use to inject lantus twice per day 200 Each 3 03/26/2023 Active OneTouch Verio In Vitro Strip (Glucose Blood)Indications: 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 Dx E11.9 300 Strip 2 05/03/2023 Active Atorvastatin Calcium 40 MG Oral Tablet (Lipitor)Indicatio ns:Coronary artery disease involving false [place] coronary artery of false pass heart without angina pectoris,Dyslipide mona TAKE 1 TABLET DAILY IN THE MORNING 90 Tablet 3 05/27/2023 Active Insulin Glargine Solostar 100 UNIT/ML Subcutaneous Solution Pen-injector (Lantus SoloStar)Jasmintio ns:DM type 2 causing renal disease, not at goal ([facility]) INJECT 20 UNITS SUBCUTANEOUSLY TWICE DAILY 30 mL 2 07/08/2023 Active Digoxin 125 MCG Oral Tablet (Lanoxin)Jasmintio ns:Chronic systolic heart failure (HCC),Coronary artery disease involving false pass coronary artery of false pass heart without angina pectoris Take 1 Tablet [...] Dyslipidemia 02/18/2018 Coronary artery disease invo lving false pass coronary artery of false pass heart without angina pectoris 12/10/2017 PAF (paroxysmal [...] mRNA, LNP-s, No Pre serve, 2-Dose Series (IndaBox) 07/23/2021,11/14/2020,10/24/2020 COVID-19, MRNA-LNP, 23-24, P F, 30 MCG/0.3 mL, 12 YRS AND ABOVE, IM (BigDNA-ComirnatEchometrix) 05/26/2023 Covid-19, Mrna, Lnp-s, Pf, B ivalent, 30 Mcg, IM, 12 yrs and above (IndaBox) 05/26/2022 Pneumococcal Conjugate Vacc, 13 Valent (Prevnar) [...] 02/14/2024 8:00 AM EDT Office Visit Hematology/Oncology [facility] [place] [phone] Marquez Kolb MD [facility] [place] [address] 03/08/2024 10:00 AM EDT Cardiac Studies Cardiology, [facility] [address] [place] [address] [address] [facility] 132 [facility] [place] [address] 04/05/2024 1:00 PM EDT Office Visit [facility] [address] [place] [phone] Jason West MD [address] [place], [place] [phone] Health Maintenance Due Date Last Done Comments Hepatitis C Screening 1963 COVID-19 Vaccine ( season) 2023 05/26/2023, 05/26/2022, 07/23/2021, Additional history exists Albumin/Creatinine Ratio 10/03/202310/02/ 023, 08/28/2021, 11/18/2020, Additional history exists CKD PHOS USE SMARTSET 47524 10/03/2023 03/0 09/2022, 03/17/2021, 08/18/2019, Additional history exists Depression Monitoring 12/03/2023 12/02/2022 DIG LEVEL FOR MEDICATION MONITORING YEARLY 03/08/2024 03/08/2023, 10/02/2022, 07/29/2021 Influenza Vaccine (FLU shot) (#1) 2024 05/26/2023, 05/22/2022, 04/30/2021, Additional history exists HbA1c 06/18/2024 12/17/2023, 08/0 01/2023, 10/02/2022, Additional history exists GFR 08/02/2024 01/31/2024, 01/01, 01/11/2024, Additional history exists Diabetic Eye Exam 11/01/2024 11/02/2023, , 04/07/2019, Additional history exists Diabetic Foot Exam 11/01/2024 11/02/2023, 0 03/17/2021, 12/27/2019, Additional history exists CKD HGB USE SMARTSET 29068 01/30/202501/30, 01/31/2024, 01/22/2024, Additional history exists DXA [...] filedocumented as of this encounter Care Teams Cnc Machine Programmer Relationship Specialty Start Date End Date Jason West MD [address] [place] [address] PCP - General 02/06/03 documented as of this encounter
--- OUTSIDE RECORDS SUMMARY | 2024-02-23 02:47 | External Medical Summary | Summary of Care ---
Author Name Unknown Organization [facility] Address [address] [place] [place] [place] [address] Phone [phone] Care Team Providers Care Massage Therapy Instructor Name Role Phone Jason West MD Primary Care Provider [phone]- [phone] Encounter Details Date Type Department Care Team (Late st Contact Info) Description 01/31/2024 Orders Only Hematology/Oncology Treatment, [place] [address] [place] [address] Marquez Kolb MD [address] [place] [address] Allergies Active Allergy Reactions Criticality Noted Date Comments Hydroxyzine Hcl 05/12/2012 halluzinating Cetirizine & Related 02/11/1999 HALLUCINATIONS documented as of this encounter (statuses as of 01/31/2024) Medications Medication Sig Dispensed Refills Start Date End Date Status MULTIVITAMIN/CHAR FILTER OPERATOR HELPER AL FORMULA TABS OR 1 TABLET DAILY 0 0 12/02/2001 Active SYSTANE PRESERVATIVE FREE 0.4-0.3 % OP SOLNIndications:Ot her anterior corneal dystrophies 1 gtt OU q2h WA 1 box 6 12/03/2008 Active CALCIUM 3566-1787 MG-UNIT PO CHEW Take 1 Tablet by [...] 81 MG TBECIndications:Co ronary artery disease involving [place] coronary artery of [place] heart without angina pectoris Take 1 Tab by mouth daily. 30 Tab 11 07/17/2019 Active Loratadine 10 MG Oral Capsule Take 1 Capsule by mouth in the morning. Active Magnesium 400 MG Capsule Take 1 by mouth daily. 30 Cap 11 01/11/2020 Active acetaminophen (TYLENOL) 325 MG Tablet 2 Tablets. 04/13/2020 Active Nitroglycerin 0.4 MG Sublingual Tablet Sublingual (Nitrostat)Indicat ions:Coronary artery disease involving [place] coronary artery of [place] heart without angina pectoris,Old [place] (myocardial infarction) Place 1 Tablet under the tongue every 5 minutes as needed for Pain, Chest. 25 Tablet 5 09/03/2022 Active Insulin Pen Needle 32G X 5 MMIndications:DM type 2 causing renal disease, not at goal ([facility] use to inject lantus twice per day 200 Each 3 03/26/2023 Active OneTouch Verio In Vitro Strip (Glucose Blood)Indications: 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 Dx E11.9 300 Strip 2 05/03/2023 Active Atorvastatin Calcium 40 MG Oral Tablet (Lipitor)Indicatio ns:Coronary artery disease involving [place] coronary artery of [place] heart without angina pectoris,Dyslipide mona TAKE 1 TABLET DAILY IN THE MORNING 90 Tablet 3 05/27/2023 Active Insulin Glargine Solostar 100 UNIT/ML Subcutaneous Solution Pen-injector (Lantus SoloStar)Indicatio ns:DM type 2 causing renal disease, not at goal ([facility]) INJECT 20 UNITS SUBCUTANEOUSLY TWICE DAILY 30 mL 2 07/08/2023 Active Digoxin 125 MCG Oral Tablet (Lanoxin)Indicatio ns:Chronic systolic heart failure (HCC),Coronary artery disease involving [place] coronary artery of [place] heart without angina pectoris Take 1 Tablet [...] single episode, in full remission 12/07/2018 [place] (myocardial infarction) 03/31/2018 Heart failure, systolic, due to CAD 03/31/2018 Lymphedema of both lower extremities 03/31/2018 Dyslipidemia 02/18/2018 Coronary artery disease invo lving [place] coronary artery of [place] heart without angina pectoris 12/10/2017 PAF (paroxysmal [...] 06/07/2009 Overview: Per HTN Taxonomy Respiratory abnormality 11/26/19990 09/2012 Overview: ICD-10 update of inactive term [...] mRNA, LNP-s, No Pre serve, 2-Dose Series (Phonetime) 07/23/2021,11/14/2020,10/24/2020 COVID-19, MRNA-LNP, 23-24, P F, 30 MCG/0.3 mL, 12 YRS AND ABOVE, IM (in2nite-ComirnatTruffls) 05/26/2023 Covid-19, Mrna, Lnp-s, Pf, B ivalent, 30 Mcg, IM, 12 yrs and above (Phonetime) 05/26/2022 Pneumococcal Conjugate Vacc, 13 Valent (Prevnar) [...] 02/14/2024 8:00 AM EDT Office Visit Hematology/Oncology [facility] 200 [facility] [place] [phone] Marquez Kolb MD 200 [facility] [place] [address] 03/08/2024 10:00 AM EDT Cardiac Studies [facility], [facility] [address] [facility] 132 [facility] [place] [address] 04/05/2024 1:00 PM EDT Office Visit [facility] [address] [place] [phone] Jason West MD [address] [place] [address] Health Maintenance Due Date Last Done Comments Hepatitis C Screening 1963 COVID-19 Vaccine ( season) 2023 05/26/2023, 05/26/2022, 07/23/2021, Additional history exists Albumin/Creatinine Ratio 10/03/202310/02/2 023, 08/28/2021, 11/18/2020, Additional history exists CKD PHOS USE SMARTSET 81763 10/03/2023 03/0 09/2022, 03/17/2021, 08/18/2019, Additional history [...] Additional history exists CKD HGB USE SMARTSET 94166 01/30/202501/30, 01/31/2024, 01/22/2024, Additional history exists DXA [...] filedocumented as of this encounter Care Teams Massage Therapy Instructor Relationship Specialty Start Date End Date Jason West MD [address] [place] [address] PCP - General 02/06/03 documented as of this encounter
--- OUTSIDE RECORDS SUMMARY | 2024-02-23 02:48 | External Medical Summary ---
Author Name Unknown Address Unknown Organization K09:[facility] [place] [address] Laboratory Report Ordering Provider Test Date Status DAQUAN MOHAN 01/31/2024 11:15:04 Final Observation Date Value Abnormality Reference (Units ) Status SYNC LEUKOCYTES IN BLOOD BY AUTOMATED COUNT 01/31/2024 11:15:04 0.94 Below lower panic limits 4.00-10.80 (K/uL) Final Neutrophils/100 leukocytes in Blood by Manual count 01/31/2024 11:15:04 86.0 Above high normal 40.0-75.0 (%) Final Lymphocytes/100 leukocytes in Blood by Manual count 01/31/2024 11:15:04 10.0 Below low normal 18.0-42.0 (%) Final Monocytes/100 leukocytes in Blood by Manual count 01/31/2024 11:15:04 4.0 1.0-11.0 (%) Final Neutrophils [#/volume] in Blood by Manual count 01/31/2024 11:15:04 0.81 Below low normal 1.80-7.70 (K/uL) Final Lymphocytes [#/volume] in Blood by Manual count 01/31/2024 11:15:04 0.09 Below low normal 1.00-4.80 (K/uL) Final Monocytes [#/volume] in Blood by Manual count 01/31/2024 11:15:04 0.04 0.00-1.10 (K/uL) Final Nucleated erythrocytes/100 leukocytes [Ratio] in Blood by Automated count 01/31/2024 11:15:04 Final Performing Location [facility] [place] [address]
--- OUTSIDE RECORDS SUMMARY | 2024-02-23 02:48 | External Medical Summary | Summary of Care ---
Author Name Unknown Organization [facility] Address [address] [facility] [address] Phone [phone] Care Team Providers Care Manager Sterile Processing Name Role Phone Jason West MD Primary Care Provider +1- [phone] Reason for Visit * Reason Comments Outpatient Testing Encounter Details Date Type Department Care Team (Late st Contact Info) Description 01/22/2024 10:00 AM EDT Laboratory Laboratory, [facility] 132 [facility] [place] [address] [place] [facility] [facility] [phone] Hospital discharge follow-up; Gastrointestinal hemorrhage with melena; GE junction carcinoma (HCC) Allergies Active Allergy Reactions Criticality Noted Date Comments Hydroxyzine Hcl 05/12/2012 halluzinating Cetirizine & Related 02/11/1999 HALLUCINATIONS documented as of this encounter (statuses as of 01/22/2024) Medications Medication Sig Dispensed Refills Start Date End Date Status MULTIVITAMIN/APPLICATION SECURITY ARCHITECT AL FORMULA TABS OR 1 TABLET DAILY 0 0 12/02/2001 Active SYSTANE PRESERVATIVE FREE 0.4-0.3 % OP SOLNIndications:Ot her anterior corneal dystrophies 1 gtt OU q2h WA 1 box 6 12/03/2008 Active CALCIUM 5057-4909 MG-UNIT PO CHEW Take 1 Tablet by [...] 81 MG TBECIndications:Co ronary artery disease involving [place] coronary artery of [place] heart without angina pectoris Take 1 Tab by mouth daily. 30 Tab 11 07/17/2019 Active Loratadine 10 MG Oral Capsule Take 1 Capsule by mouth in the morning. Active Magnesium 400 MG Capsule Take 1 by mouth daily. 30 Cap 11 01/11/2020 Active acetaminophen (TYLENOL) 325 MG Tablet 2 Tablets. 04/13/2020 Active Nitroglycerin 0.4 MG Sublingual Tablet Sublingual (Nitrostat)Indicat ions:Coronary artery disease involving [place] coronary artery of [place] heart without angina pectoris,Old [place] (myocardial infarction) [...] Oral Tablet (Lipitor)Indicatio ns:Coronary artery disease involving [place] coronary artery of [place] heart without angina pectoris,Dyslipide mona TAKE 1 [...] systolic heart failure (HCC),Coronary artery disease involving [place] coronary artery of [place] heart without angina pectoris Take 1 Tablet [...] as of this encounter (statuses as of 01/22/2024) Active Problems Problem Noted Date Diagnosed Date [...] Dyslipidemia 02/18/2018 Coronary artery disease invo lving [place] coronary artery of [place] heart without angina pectoris 12/10/2017 PAF (paroxysmal atrial fibrillation) 12/10/2017 Type 2 diabetes mellitus wit h hemoglobin A1c goal of less than 8.0% 09/08/2013 Overview: ICD-10 update of inactive term DJD, CERVICAL SPINE 04/12/2002 GENERAL OSTEOARTHROSIS documented as of this encounter (statuses as of 01/22/2024) Resolved Problems Problem Noted Date Diagnosed Date [...] as of this encounter (statuses as of 01/22/2024) Immunizations Name Administration Dates Next Due COVID-19 mRNA, LNP-s, No Pre serve, 2-Dose Series (Pictrition App) 07/23/2021,11/14/2020,10/24/2020 COVID-19, MRNA-LNP, 23-24, P F, 30 MCG/0.3 mL, 12 YRS AND ABOVE, IM (Swank-Comirnat) 05/26/2023 Covid-19, Mrna, Lnp-s, Pf, B ivalent, [...] Care Team (Late st Contact Info) Description 01/24/2024 11:00 AM EDT [facility] 200 [facility] [place] [phone] Jeny, Chair 2 Hem Onc [address] [place] [address] 01/29/2024 10:00 AM EDT Laboratory Laboratory, [facility] 132 [facility] [place] [phone] [place] [facility] 132 [facility] [place] [address] 01/31/2024 9:30 AM EDT Office Visit Hematology/Oncology [facility] 200 [facility] [place] [phone] Marquez Kolb MD 200 [facility] [place] [address] 01/31/2024 11:00 AM EDT Hem/Onc Treatment Hematology/Oncology [address] [place] [phone] Jeny, Chair 10 Hem Onc [facility] 200 [facility] [place] [address] 03/08/2024 10:00 AM EDT Cardiac Studies Cardiology, [facility] 132 [facility] [place] [address] [facility] 132 [facility] [place] [address] 04/05/2024 1:00 PM EDT Office Visit [facility] [address] [place] [facility] [place] [address] Jason West MD [address] [facility] [place] [address] Pending Results Name Type Priority Associated Diagnoses Date /Time CBC WITH WBC DIFFERENTIAL Lab STAT GE junction carcinoma (HCC) 01/22/2024 10:12 AM EDT COMPREHENSIVE METABOLIC PANEL Lab STAT GE junction carcinoma (HCC) 01/22/2024 10:12 AM EDT CBC Lab STAT GE junction carcinoma (HCC) 01/22/2024 10:12 AM EDT DIFFERENTIAL, AUTOMATED Lab STAT GE junction carcinoma (HCC) 01/22/2024 10:12 AM EDT Health Maintenance Due Date Last Done Comments Hepatitis C Screening 1963 COVID-19 Vaccine ( season) 2023 05/26/2023, 05/26/2022, 07/23/2021, Additional history exists Albumin/Creatinine Ratio 10/03/2023 023, 08/28/2021, 11/18/2020, Additional history exists CKD PHOS USE SMARTSET 10510 10/03/2023 03/0 09/2022, 03/17/2021, 08/18/2019, Additional history exists Depression Monitoring 12/03/2023 12/02/2022 DIG LEVEL FOR MEDICATION MONITORING YEARLY 03/08/2024 03/08/2023, 10/02/2022, 07/29/2021 HbA1c 06/18/2024 12/17/2023, 08/0 01/2023, 10/02/2022, Additional history exists GFR 07/12/2024 01/11/2024, 11/30, 03/08/2023, Additional history exists Diabetic Eye Exam 11/01/2024 11/02/2023, , 04/07/2019, Additional history exists Diabetic Foot Exam 11/01/2024 11/02/2023, 0 03/17/2021, 12/27/2019, Additional history exists CKD HGB USE SMARTSET 62856 01/10/202501/10, 01/11/2024, 12/17/2023, Additional history exists DXA Scan 03/21/2026 03/21/2019, [...] as of this encounter Visit Diagnoses Diagnosis Hospital discharge follow-up Other follow-up examination Gastrointestinal hemorrhage with 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
--- OUTSIDE RECORDS SUMMARY | 2024-02-23 02:48 | External Medical Summary | Summary of Care ---
Author Name Unknown Organization [facility] Address [address] [place] [address] Phone [phone] Care Team Providers Care Dial Polisher Name Role Phone Jason West MD Primary Care Provider [phone]- [phone] Reason for Visit * Reason Onset Date Comments Advice 01/17/2024 [place] Encounter Details Date Type Department Care Team (Late st Contact Info) Description 01/17/2024 Telephone Hematology/Oncology [facility] [place] [address] [facility] [address] [facility], Scheduling [address] [place] [address] Advice ([place]) Allergies Active Allergy Reactions Criticality Noted Date Comments Hydroxyzine Hcl 05/12/2012 halluzinating Cetirizine & Related 02/11/1999 HALLUCINATIONS documented as of this encounter (statuses as of 01/17/2024) Medications Medication Sig Dispensed Refills Start Date End Date Status MULTIVITAMIN/NOODLE CATALYST MAKER AL FORMULA TABS OR 1 TABLET DAILY 0 0 12/02/2001 Active SYSTANE PRESERVATIVE FREE 0.4-0.3 % OP SOLNIndications:Ot her anterior corneal dystrophies 1 gtt OU q2h WA 1 box 6 12/03/2008 Active CALCIUM 2895-9487 MG-UNIT PO CHEW Take 1 Tablet by [...] 81 MG TBECIndications:Co ronary artery disease involving [place] coronary artery of [place] heart without angina pectoris Take 1 Tab by mouth daily. 30 Tab 11 07/17/2019 Active Loratadine 10 MG Oral Capsule Take 1 Capsule by mouth in the morning. Active Magnesium 400 MG Capsule Take 1 by mouth daily. 30 Cap 11 01/11/2020 Active acetaminophen (TYLENOL) 325 MG Tablet 2 Tablets. 04/13/2020 Active Nitroglycerin 0.4 MG Sublingual Tablet Sublingual (Nitrostat)Indicat ions:Coronary artery disease involving [place] coronary artery of [place] heart without angina pectoris,Old [place] (myocardial infarction) [...] Oral Tablet (Lipitor)Indicatio ns:Coronary artery disease involving [place] coronary artery of [place] heart without angina pectoris,Dyslipide mona TAKE 1 TABLET DAILY IN THE MORNING 90 Tablet 3 05/27/2023 Active Insulin Glargine Solostar 100 UNIT/ML Subcutaneous Solution Pen-injector (Lantus SoloStar)Indicatio ns:DM type 2 causing renal disease, 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) INJECT 20 UNITS SUBCUTANEOUSLY TWICE DAILY 30 mL 2 07/08/2023 Active Digoxin 125 MCG Oral Tablet (Lanoxin)Indicatio ns:Chronic systolic heart failure (HCC),Coronary artery disease involving [place] coronary artery of [place] heart without angina pectoris Take 1 Tablet [...] as of this encounter (statuses as of 01/17/2024) Active Problems Problem Noted Date Diagnosed Date [...] Dyslipidemia 02/18/2018 Coronary artery disease invo lving [place] coronary artery of [place] heart without angina pectoris 12/10/2017 PAF (paroxysmal atrial fibrillation) 12/10/2017 Type 2 diabetes mellitus wit h hemoglobin A1c goal of less than 8.0% 09/08/2013 Overview: ICD-10 update of inactive term DJD, CERVICAL SPINE 04/12/2002 GENERAL OSTEOARTHROSIS documented as of this encounter (statuses as of 01/17/2024) Resolved Problems Problem Noted Date Diagnosed Date [...] as of this encounter (statuses as of 01/17/2024) Immunizations Name Administration Dates Next Due COVID-19 mRNA, LNP-s, No Pre serve, 2-Dose Series ([employer]) 07/23/2021,11/14/2020,10/24/2020 COVID-19, MRNA-LNP, 23-24, P F, 30 MCG/0.3 mL, 12 YRS AND ABOVE, IM ([employer]Comir[employer]) 05/26/2023 Covid-19, Mrna, Lnp-s, Pf, B ivalent, 30 Mcg, IM, 12 yrs and above ([employer]) 05/26/2022 Pneumococcal Conjugate Vacc, 13 Valent (Prevnar) [...] Telephone Encounter - Saba Sevilla OSA - 01/17/2024 2:53 PM EDT Spoke to nursing they stated that the apts that she is talking about is for radiation not TX with us here Made pt aware and she has no other questions at this time * Telephone Encounter - Sola Gold OSA - 01/17/2024 2:42 PM EDT Patient calling stating that she is scheduled for treatments 01/17-01/20 but there is nothing in her chart until 01/23. Please advise SKIP. documented in this encounter Plan of Treatment Upcoming Encounters Date Type Department Care Team (Late st Contact Info) Description 01/22/2024 10:00 AM EDT [facility] [address] [facility] [place] [address] [place] [facility] [place] [address] 01/24/2024 11:00 AM EDT Hem/Onc Treatment Hematology/Oncology [address] [place] [phone] Jeny, Chair 2 Hem Onc [facility] [place] [address] 01/29/2024 10:00 AM EDT Laboratory Laboratory, [facility] [address] [facility] [place] [address] [place] [address] [facility] [place] [address] 01/31/2024 9:30 AM EDT Office Visit Hematology/Oncology [facility] [place] [address] [place] [address] Marquez Kolb MD [address] [place] [address] 01/31/2024 11:00 AM EDT Hem/Onc Treatment Hematology/Oncology Treatment, [address] [place] [phone] Jeny, Chair 10 Hem Onc [address] [place], [place] [address] 03/08/2024 10:00 AM EDT Cardiac Studies Cardiology, [facility] [address] [facility] [place] [address] [facility] [address] [place] [address] 04/05/2024 1:00 PM EDT Office Visit [facility] [address] [facility] [phone] Jason West MD [address] [facility] [place] [address] Health Maintenance Due Date Last Done Comments Hepatitis C Screening 1963 COVID-19 Vaccine ( season) 2023 05/26/2023, 05/26/2022, 07/23/2021, Additional history exists Albumin/Creatinine Ratio 10/03/2023 023, 08/28/2021, 11/18/2020, Additional history exists CKD PHOS USE SMARTSET 55221 10/03/2023 03/0 09/2022, 03/17/2021, 08/18/2019, Additional history exists Depression Monitoring 12/03/2023 12/02/2022 DIG LEVEL FOR MEDICATION MONITORING YEARLY 03/08/2024 03/08/2023, 10/02/2022, 07/29/2021 HbA1c 06/18/2024 12/17/2023, 08/01/2023, 10/02/2022, Additional history exists GFR 07/12/2024 01/11/2024, 11/30, 03/08/2023, Additional history exists Diabetic Eye Exam 11/01/2024 11/02/2023, , 04/07/2019, Additional history exists Diabetic Foot Exam 11/01/2024 11/02/2023, 0 03/17/2021, 12/27/2019, Additional history exists CKD HGB USE SMARTSET 37636 01/10/202501/10, 01/11/2024, 12/17/2023, Additional history exists DXA [...] filedocumented as of this encounter Care Teams Dial Polisher Relationship Specialty Start Date End Date aJson West MD [address] [place] [address] PCP - General 02/06/03 documented as of this encounter
--- OUTSIDE RECORDS SUMMARY | 2024-02-23 02:48 | External Medical Summary ---
Author Name Unknown Address Unknown Organization K0G:[facility] [address] [place] [address] Laboratory Report Ordering Provider Test Date Status DAQUAN MOHAN 01/22/2024 10:12:19 Final Observation Date Value Abnormality Reference (Units ) Status SYNC LEUKOCYTES IN BLOOD BY AUTOMATED COUNT 01/22/2024 10:12:19 4.28 4.00-10.80 (K/uL) Final Segs 01/22/2024 10:12:19 70.6 40.0-75.0 (%) Final Lymphs % 01/22/2024 10:12:19 21.5 18.0-42.0 (%) Final Monos 01/22/2024 10:12:19 1.6 1.0-11.0 (%) Final Eosinophils 01/22/2024 10:12:19 5.6 0.0-6.0 (%) Final Basos 01/22/2024 10:12:19 0.7 0.0-2.0 (%) Final Absolute Segs 01/22/2024 10:12:19 3.02 1.80-7.70 (K/uL) Final Lymphs, absolute 01/22/2024 10:12:19 0.92 Below low normal 1.00-4.80 (K/ul) Final Monos, Abs 01/22/2024 10:12:19 0.07 0.00-1.10 (K/uL) Final Eos, Abs 01/22/2024 10:12:19 0.24 0.00-0.70 (K/uL) Final Basos, Abs 01/22/2024 10:12:19 0.03 0.00-0.20 (K/uL) Final Performing Location [facility] [place] [address]
--- OUTSIDE RECORDS SUMMARY | 2024-02-23 02:48 | External Medical Summary ---
Author Name Unknown Address Unknown Organization K0[facility] [place] [address] - [address] [place] [address] Laboratory Report Ordering Provider Test Date Status DAQUAN MOHAN 01/22/2024 10:12:19 Final Observation Date Value Abnormality Reference (Units ) Status WBC, Total 01/22/2024 10:12:19 4.28 4.00-10.8 0 (K/uL) Final RBC 01/22/2024 10:12:19 4.04 3.85-5.15 (M/uL) Final Hemoglobin 01/22/2024 10:12:19 9.7 Below low normal 12 .0-15.3 (g/dL) Final HCT 01/22/2024 10:12:19 33.2 Below low normal 36. 0-45.2 (%) Final MCV 01/22/2024 10:12:19 82.2 81.5-97.5 (fL) Final MCH 01/22/2024 10:12:19 24.0 27.0-34.0 (pg) Final MCHC 01/22/2024 10:12:19 29.2 32.0-36.0 (g/dL) Final RDW 01/22/2024 10:12:19 18.3 11.5-15.5 (%) Final Platelets 01/22/2024 10:12:19 179 140-400 (K /uL) Final MPV 01/22/2024 10:12:19 9.8 6.6-11.1 ( fL) Final Performing Location [facility] - [address] [place] [address]
--- OUTSIDE RECORDS SUMMARY | 2024-02-23 02:48 | External Medical Summary ---
Author Name Unknown Address Unknown Organization K09:[facility] [address] [place] [address] Laboratory Report Ordering Provider Test Date Status DAQUAN MOHAN 01/31/2024 11:15:04 Final Observation Date Value Abnormality Reference (Units ) Status BUN 01/31/2024 11:15:04 21 Above high normal 6-20 (mg/dL) Final Creatinine 01/31/2024 11:15:04 0.7 0.5-1.0 (mg/dL) Final Glomerular filtration rate/1.73 sq M.predicted [Volume Rate/Area] in Serum, Plasma or Blood by Creatinine-based formula (CKD-EPI) 01/31/2024 11:15:04 85 >=60 (mL/min) Final eGFR is calculated based on the CKD-EPI 2020 equation Sodium 01/31/2024 11:15:04 137 135-146 (m mol/L) Final Potassium 01/31/2024 11:15:04 5.6 Above high normal 3. 5-5.1 (mmol/L) Final Cl 01/31/2024 11:15:04 101 98-107 (mm ol/L) Final CO2 01/31/2024 11:15:04 25 22-32 (mmo l/L) Final Anion gap 01/31/2024 11:15:04 11 7-15 (mmol /L) Final Glucose 01/31/2024 11:15:04 263 Above high normal 70 -120 (mg/dL) Final Albumin 01/31/2024 11:15:04 3.7 Below low normal 3.8 -5.0 (g/dL) Final AST (Aspartate aminotransferase) 01/31/2024 11:15:04 24 10-35 (U/L) Fin al Alk Phos 01/31/2024 11:15:04 81 35-130 (U/ L) Final Bilirubin, Total 01/31/2024 11:15:04 0.7 <=1 .2 (mg/dL) Final Calcium 01/31/2024 11:15:04 9.3 8.4-10.2 ( mg/dL) Final Protein 01/31/2024 11:15:04 6.9 6.0-8.3 (g /dL) Final ALT (Alanine aminotransferase) 01/31/2024 11:15:04 20 10-35 (U/L) Axel lopez Performing Location [facility] [address] [place] [address]
--- OUTSIDE RECORDS SUMMARY | 2024-02-23 02:48 | External Medical Summary ---
Author Name Unknown Address Unknown Organization K0G:[facility] [place] [address] [place] [address] Laboratory Report Ordering Provider Test Date Status DAUQAN MOHAN 01/22/2024 10:12:19 Final Observation Date Value Abnormality Reference (Units ) Status Nucleated erythrocytes/100 leukocytes [Ratio] in Blood by Automated count 01/22/2024 10:12:19 Final Performing Location [facility] [address] [place] [address]
--- OUTSIDE RECORDS SUMMARY | 2024-02-23 02:48 | External Medical Summary | Summary of Care ---
Author Name Unknown Organization [facility] Address [address] [facility] [address] Phone [phone] Care Team Providers Care Automotive Product Engineer Name Role Phone Jason West MD Primary Care Provider [phone]- [phone] Reason for Visit * Reason Comments Follow Up Treatment Encounter Details Date Type Department Care Team (Late st Contact Info) Description 01/31/2024 9:30 AM EDT Office Visit Hematology/Oncology [place] [facility] [place] [phone] Marquez Kolb MD [address] [place] [address] GE junction carcinoma (HCC)*; Encounter for antineoplastic chemotherapy Allergies Active Allergy Reactions Criticality Noted Date Comments Hydroxyzine Hcl 05/12/2012 halluzinating Cetirizine & Related 02/11/1999 HALLUCINATIONS documented as of this encounter (statuses as of 01/31/2024) Medications Medication Sig Dispensed Refills Start Date End Date Status MULTIVITAMIN/[place] LAW CLERK AL FORMULA TABS OR 1 TABLET DAILY 0 0 12/02/2001 Active SYSTANE PRESERVATIVE FREE 0.4-0.3 % OP SOLNIndications:Ot her anterior corneal dystrophies 1 gtt OU q2h WA 1 box 6 12/03/2008 Active CALCIUM 3246-4303 MG-UNIT PO CHEW Take 1 Tablet by mouth in the morning. Active Cinnamon 500 MG Capsule Take 2 Capsules by mouth in the morning. Active ONETOUCH ULTRASOFT LANCETS MISCIndications:DM type 2 causing renal disease ([facility]) Use as directed daily. Use up to four times a day as directed. Dx E11.9 3 Box Dosing Unit 3 09/13/2018 Active aspirin enteric coated 81 MG TBECIndications:Co ronary artery disease involving [place] coronary artery of [place] heart without angina pectoris Take 1 Tab by mouth daily. 30 Tab 11 07/17/2019 Active Loratadine 10 MG Oral Capsule Take 1 Capsule by mouth in the morning. Active Magnesium 400 MG Capsule Take 1 by mouth daily. 30 Cap 11 01/11/2020 Active acetaminophen (TYLENOL) 325 MG Tablet 2 Tablets. 04/13/2020 Active Nitroglycerin 0.4 MG Sublingual Tablet Sublingual (Nitrostat)Indicat ions:Coronary artery disease involving [place] coronary artery of [place] heart without angina pectoris,Old [place] (myocardial infarction) [...] Oral Tablet (Lipitor)Indicatio ns:Coronary artery disease involving [place] coronary artery of [place] heart without angina pectoris,Dyslipide mona TAKE 1 TABLET DAILY IN THE MORNING 90 Tablet 3 05/27/2023 Active Insulin Glargine Solostar 100 UNIT/ML Subcutaneous Solution Pen-injector (Lantus SoloStar)Indicatio ns:DM type 2 causing renal disease, not at goal ([facility]) INJECT 20 UNITS SUBCUTANEOUSLY TWICE DAILY 30 mL 2 07/08/2023 Active Digoxin 125 MCG Oral Tablet (Lanoxin)Indicatio ns:Chronic systolic heart failure (HCC),Coronary artery disease involving [place] coronary artery of [place] heart without angina pectoris Take 1 Tablet [...] Dyslipidemia 02/18/2018 Coronary artery disease invo lving [place] coronary artery of [place] heart without angina pectoris 12/10/2017 PAF (paroxysmal [...] mRNA, LNP-s, No Pre serve, 2-Dose Series ([employer]) 07/23/2021,11/14/2020,10/24/2020 COVID-19, MRNA-LNP, 23-24, P F, 30 MCG/0.3 mL, 12 YRS AND ABOVE, IM ([employer]-Comirnat) 05/26/2023 Covid-19, Mrna, Lnp-s, Pf, B ivalent, [...] Progress Notes * Marquez Kolb MD - 01/31/2024 10:17 AM EDT Outpatient Consult Note Data Source: Patient, Epic record. Data Source: Patient, Epic record. 01/31/2024 10:17 AM [place] [id number] 78 year old Patient Encounter: HEMATOLOGY/ONCOLOGY [facility] Cancer Diagnosis: GE junction carcinoma, T3 [...] the about diagnosis. She was admitted to [facility] between 10/21/23 - 10/27/23. Presented to [...] (MMRp). - HER2/solomon overexpression: Negative (score 0). Ferney Mismatch Repair (MMR) Immunohistochemistry Panel Results: Mismatch repair proficient (MMRp). Immunohistochemistry: MLH1 Protein: Intact. PMS2 Protein: Intact. MSH2 Protein: Intact. MSH6 Protein: Intact. Interpretation: Intact expression of all four proteins (MLH1, MSH2, MSH6 and PMS2) is present. The immunohistochemistry findings are not consistent with microsatellite instability. FISH analysis shows no evidence of HER2 amplification and as such this is considered a NEGATIVE result. [place] PD-L1 LDT: Detected Total PD-L1 Expression: 30 [...] disease) Heart failure, systolic, due to CAD ([facility]) 03/31/2018 HTN, goal below 140/90 Menopause Mixed dyslipidemia Morbid Obesity, BMI not known Myalgia and myositis PAF (paroxysmal atrial fibrillation) ([facility]) 12/10/2017 Polymyalgia rheumatica ([facility]) Current Outpatient Medications Medication Sig Dispense Refill MULTIVITAMIN/MINERAL FORMULA TABS OR 1 TABLET DAILY 0 0 SYSTANE PRESERVATIVE FREE 0.4-0.3 % OP SOLN 1 gtt OU q2h WA 1 box 6 CALCIUM 8812-4579 MG-UNIT PO CHEW Take 1 Tablet by [...] mismatch repair proficient and HER2 Solomon negative. [id number] was 30 CPS. Endo sonographic ultrasound revealed [...] 02/14/2024 8:00 AM EDT Office Visit Hematology/Oncology [facility] [address] [facility] [place] [address] Marquez Kolb MD [address] [facility] [place] [address] 03/08/2024 10:00 AM EDT Cardiac Studies Cardiology, [facility] [place] [address] [place], Pacer [facility] [place] [address] [place] [address] 04/05/2024 1:00 PM EDT Office Visit [facility] [address] [facility] [place] [phone] Jason West MD [address] [place] [facility] [place] [address] Health Maintenance Due Date Last Done Comments Hepatitis C Screening 1963 COVID-19 Vaccine ( season) 2023 05/26/2023, 05/26/2022, 07/23/2021, Additional history exists Albumin/Creatinine Ratio 10/03/20232 023, 08/28/2021, 11/18/2020, Additional history exists CKD PHOS USE SMARTSET 59004 10/03/2023 03/0 09/2022, 03/17/2021, 08/18/2019, Additional history [...] Additional history exists CKD HGB USE SMARTSET 26370 01/21/202501/21, 01/22/2024, 01/11/2024, Additional history exists DXA [...] chemotherapy documented in this encounter Care Teams Automotive Product Engineer Relationship Specialty Start Date End Date Jason West MD [address] [place] [address] PCP - General 02/06/03 documented as of this encounter"
--- OUTSIDE RECORDS SUMMARY | 2024-02-23 02:48 | External Medical Summary | Summary of Care ---
Author Name Unknown Organization [facility] Address [address] [place] [address] Phone [phone] Care Team Providers Care Optical Lens Manufacturing Tech Name Role Phone Jason West MD Primary Care Provider [phone]- [phone] Reason for Visit * Reason Onset Date Comments Medication Refill 01/17/2024 Encounter Details Date Type Department Care Team (Late st Contact Info) Description 01/17/2024 Refill [facility] [address] [place] [address] Jason West MD [address] [place] [address] Allergies Active Allergy Reactions Criticality Noted Date Comments Hydroxyzine Hcl 05/12/2012 halluzinating Cetirizine & Related 02/11/1999 HALLUCINATIONS documented as of this encounter (statuses as of 01/21/2024) Medications Medication Sig Dispensed Refills Start Date End Date Status MULTIVITAMIN/BOLTER HELPER AL FORMULA TABS OR 1 TABLET DAILY 0 0 12/02/2001 Active SYSTANE PRESERVATIVE FREE 0.4-0.3 % OP SOLNIndications:Ot her anterior corneal dystrophies 1 gtt OU q2h WA 1 box 6 12/03/2008 Active CALCIUM 0673-6174 MG-UNIT PO CHEW Take 1 Tablet by [...] TBECIndications:Co ronary artery disease involving [place] coronary artery of [place] heart without angina pectoris Take 1 Tab [...] (Nitrostat)Indicat ions:Coronary artery disease involving [place] coronary artery of [place] heart without angina pectoris,Old [place] (myocardial infarction) [...] (Lipitor)Indicatio ns:Coronary artery disease involving [place] coronary artery of [place] heart without angina pectoris,Dyslipide mona TAKE 1 TABLET DAILY IN THE MORNING 90 Tablet 3 05/27/2023 Active Insulin Glargine Solostar 100 UNIT/ML Subcutaneous Solution Pen-injector (Lantus SoloStar)Indicatio ns:DM type 2 causing renal disease, not at goal ([facility]) INJECT 20 UNITS SUBCUTANEOUSLY TWICE DAILY 30 mL 2 07/08/2023 Active Digoxin 125 MCG Oral Tablet (Lanoxin)Indicatio ns:Chronic systolic heart failure (HCC),Coronary artery disease involving [place] coronary artery of [place] heart without angina pectoris Take 1 Tablet [...] as of this encounter (statuses as of 01/21/2024) Active Problems Problem Noted Date Diagnosed Date [...] Coronary artery disease invo lving [place] coronary artery of [place] heart without angina pectoris 12/10/2017 PAF (paroxysmal atrial fibrillation) 12/10/2017 Type 2 diabetes mellitus wit h hemoglobin A1c goal of less than 8.0% 09/08/2013 Overview: ICD-10 update of inactive term DJD, CERVICAL SPINE 04/12/2002 GENERAL OSTEOARTHROSIS documented as of this encounter (statuses as of 01/21/2024) Resolved Problems Problem Noted Date Diagnosed Date [...] as of this encounter (statuses as of 01/21/2024) Immunizations Name Administration Dates Next Due COVID-19 mRNA, LNP-s, No Pre serve, 2-Dose Series ([employer]) 07/23/2021,11/14/2020,10/24/2020 COVID-19, MRNA-LNP, 23-24, P F, 30 MCG/0.3 mL, 12 YRS AND ABOVE, IM ([employer]Comirnat) 05/26/2023 Covid-19, Mrna, Lnp-s, Pf, B ivalent, 30 Mcg, IM, 12 yrs and above ([employer]) 05/26/2022 Pneumococcal Conjugate Vacc, 13 Valent (Prevnar) [...] Description 01/22/2024 10:00 AM EDT [facility] [address] [place] [phone] [place] [address] [place] [address] 01/24/2024 11:00 AM EDT Hem/Onc Treatment Hematology/Oncology [facility] 200 [facility] [place] [phone] Jeny, Chair 2 Hem Onc [place] [address] [address] [place] [address] 01/29/2024 10:00 AM EDT Laboratory Laboratory, [facility] [address] [place] [phone] [place] 132 [facility] [place] [address] 01/31/2024 9:30 AM EDT Office Visit Hematology/Oncology [facility] [place] [facility] [place] [phone] Marquez Kolb MD [address] [facility] [place] [address] 01/31/2024 11:00 AM EDT [facility] [address] [facility] [place] [phone] Jeny, Chair 10 Hem Onc [facility] [address] [place] [address] 03/08/2024 10:00 AM EDT Cardiac Studies Cardiology, [facility] [address] [place] [address] [facility] [address] [place] [address] 04/05/2024 1:00 PM EDT Office Visit [facility] [address] [facility] [phone] Jason West MD [address] [facility] [address] Health Maintenance Due Date Last Done Comments Hepatitis C Screening 1963 COVID-19 Vaccine ( season) 2023 05/26/2023, 05/26/2022, 07/23/2021, Additional history exists Albumin/Creatinine Ratio 10/03/2023 023, 08/28/2021, 11/18/2020, Additional history exists CKD PHOS USE SMARTSET 12092 10/03/2023 03/0 09/2022, 03/17/2021, 08/18/2019, Additional history [...] Additional history exists CKD HGB USE SMARTSET 25310 01/10/202501/10, 01/11/2024, 12/17/2023, Additional history exists DXA [...] filedocumented as of this encounter Care Teams Optical Lens Manufacturing Tech Relationship Specialty Start Date End Date Jason West MD [address] [place] [address] PCP - General 02/06/03 documented as of this encounter
--- OUTSIDE RECORDS SUMMARY | 2024-02-23 02:48 | External Medical Summary | Summary of Care ---
Author Name Unknown Organization [facility] Address [address] [facility] [place] [address] Phone [phone] Care Team Providers Care Route Delivery Clerk Name Role Phone Jason West MD Primary Care Provider [phone]- [phone] Reason for Visit * Reason Comments Chemotherapy C2D1 Taxol/Carboplat in * Episode Based Medications (Routine) - Authorized Specialty Diagnoses / Procedures Referred By Abdullahi melo Referred To Contact Diagnoses GE junction carcinoma (HCC) Encounter for antineoplastic chemotherapy Procedures [place] PALONOSETRON HCL [place] CARBOPLATIN INJECTION W[place] PACLITAXEL INJECTION Marquez Kolb MD [address] [place] [address] Anc Hem/Onc [address] [address] Referral ID Status Reason Start Date Expiration Date V isits Requested Visits Authorized [id number] Authorized 01/04/2024 07/01/2024 [id number] Encounter Details Date Type Department Care Team (Latest Contact Info) Description 01/24/2024 11:00 AM EDT Hem/Onc Treatment Hematology/Oncolog y Treatment, [address] [address] Jeny, Chair 2 Hem Onc Scenery [address] [place] [address] GE junction carcinoma (HCC)*; Encounter for antineoplastic chemotherapy Allergies Active Allergy Reactions Criticality Noted Date Comments Hydroxyzine Hcl 05/12/2012 halluzinating Cetirizine & Related 02/11/1999 HALLUCINATIONS documented as of this encounter (statuses as of 01/24/2024) Medications Medication Sig Dispensed Refills Start Date End Date Status MULTIVITAMIN/DIGITAL COMMUNICATIONS MANAGER AL FORMULA TABS OR 1 TABLET DAILY 0 0 12/02/2001 Active SYSTANE PRESERVATIVE FREE 0.4-0.3 % OP SOLNIndications:Ot her anterior corneal dystrophies 1 gtt OU q2h WA 1 box 6 12/03/2008 Active CALCIUM 1113-1607 MG-UNIT PO CHEW Take 1 Tablet by [...] of [place] heart without angina pectoris,Old [place] (myocardial infarction) [...] heart failure ([facility]),Coronary artery disease involving [place] coronary artery [...] as of this encounter (statuses as of 01/24/2024) Active Problems Problem Noted Date Diagnosed Date [...] as of this encounter (statuses as of 01/24/2024) Resolved Problems Problem Noted Date Diagnosed Date [...] as of this encounter (statuses as of 01/24/2024) Immunizations Name Administration Dates Next Due COVID-19 mRNA, LNP-s, No Pre serve, 2-Dose Series ([employer]) 07/23/2021,11/14/2020,10/24/2020 COVID-19, MRNA-LNP, 23-24, P F, 30 MCG/0.3 mL, 12 YRS AND ABOVE, IM ([employer]) 05/26/2023 Covid-19, Mrna, Lnp-s, Pf, B ivalent, [...] Care Team (Late st Contact Info) Description 01/29/2024 10:00 AM EDT Laboratory Laboratory, [facility] [address] [place] [phone] [facility] 132 [facility] [place] [address] 01/31/2024 9:30 AM EDT Office Visit Hematology/Oncology [facility] Jeny [place] [address] [place] [phone] Marquez Kolb MD [address] [place] [address] 01/31/2024 11:00 AM EDT Hem/Onc Treatment Hematology/Oncology Treatment, [place] [address] [place], [place] [phone] Jeny, Chair 10 Hem Onc [facility] [address] [place] [address] 03/08/2024 10:00 AM EDT Cardiac Studies Cardiology, [facility] 132 [facility] [place] [address] [facility] [address] 04/05/2024 1:00 PM EDT Office Visit [facility] [address] [place] [phone] Jason West MD [address] [place] [address] Health Maintenance Due Date Last Done Comments Hepatitis C Screening 1963 COVID-19 Vaccine ( season) 2023 05/26/2023, 05/26/2022, 07/23/2021, Additional history exists Albumin/Creatinine Ratio 10/03/202310/02/2 023, 08/28/2021, 11/18/2020, Additional history exists CKD PHOS USE SMARTSET 66578 10/03/2023 03/0 09/2022, 03/17/2021, 08/18/2019, Additional history [...] Additional history exists CKD HGB USE SMARTSET 03317 01/21/202501/21, 01/22/2024, 01/11/2024, Additional history exists DXA [...] ONCE PRN Other, Hypersensitivity Reaction, Starting on Wed01/24/24 at 1033, Until Wed01/25/24 at 1032, For 24 hours EPINEPHrine 1 MG/ML inj 0.3 mg 0.3 mg, Intramuscular, ONCE PRN Other, Hypersensitivity Reaction or Anaphylaxis, Starting on Wed01/24/24 at 1033, Until Wed01/25/24 at 1032, For 24 hours hEParin 100 UNIT/ML Lock Flush inj 500 Units 500 Units (5 mL), IV Lock, PRN Other, IV Flush, Starting on Wed01/24/24 at 1033, Until Wed01/25/24 at 1032, For 24 hours, Do not flush if lock, PICC, or central line not in place; IV infusing or unable to flush. Hydrocortisone Sod Suc (PF) (Solu-Cortef) inj 100 mg 100 mg, IV Push, ONCE PRN Other, Hypersensitivity Reaction, Starting on Wed01/24/24 at 1033, Until Wed01/25/24 at 1032, For 24 hours LORAzepam (Ativan) tab 0.5 mg 0.5 mg, Oral, ONCE PRN Anxiety, Nausea, Starting on Wed01/24/24 at 1145, Until Discontinued NSS infusion Intravenous, at 50 mL/hr, PRN, Starting on Wed01/24/24 at 1145, Until Discontinued, Maintenance line Start Infusion 01/24/2024 11:01 AM EDT 50 mL/hr oxygen GAS Inhalation, OXYGEN, First dose on Wed01/24/24 at 1115, Until Discontinued, Device/Managed by: Low Flow Device, [...] Push, PRN Other, IV Flush, Starting on Wed01/24/24 at 1033, Until Wed01/25/24 at 1032, For 24 hours, Do not flush if [...] Given 01/24/2024 10:43 AM EDT 20 mg PACLitaxel (Taxol) 106 [...] mg documented in this encounter Care Teams Route Delivery Clerk Relationship Specialty Start Date End Date Jason West MD [address] [place] [address] PCP - General 02/06/03 documented as of this encounter
--- OUTSIDE RECORDS SUMMARY | 2024-02-23 02:48 | External Medical Summary ---
Author Name Unknown Address Unknown Organization K0[facility] [place] [address] [place] [address] Laboratory Report Ordering Provider Test Date Status DAQUAN MOHAN 01/22/2024 10:12:19 Final Observation Date Value Abnormality Reference (Units ) Status BUN 01/22/2024 10:12:19 14 6-20 (mg/dL) Final Creatinine 01/22/2024 10:12:19 0.6 0.5-1.0 (mg/dL) Final Glomerular filtration rate/1.73 sq M.predicted [Volume Rate/Area] in Serum, Plasma or Blood by Creatinine-based formula (CKD-EPI) 01/22/2024 10:12:19 >90 >=60 (mL/min) Final eGFR is calculated based on the CKD-EPI 2020 equation Sodium 01/22/2024 10:12:19 140 135-146 (m mol/L) Final Potassium 01/22/2024 10:12:19 4.7 3.5-5.1 (m mol/L) Final Cl 01/22/2024 10:12:19 103 98-107 (mm ol/L) Final CO2 01/22/2024 10:12:19 28 22-32 (mmo l/L) Final Anion gap 01/22/2024 10:12:19 9 7-15 (mmol /L) Final Glucose 01/22/2024 10:12:19 128 Above high normal 70 -120 (mg/dL) Final Albumin 01/22/2024 10:12:19 3.5 Below low normal 3.8 -5.0 (g/dL) Final AST (Aspartate aminotransferase) 01/22/2024 10:12:19 21 10-35 (U/L) Fin al Alk Phos 01/22/2024 10:12:19 81 35-130 (U/ L) Final Bilirubin, Total 01/22/2024 10:12:19 0.7 <=1 .2 (mg/dL) Final Calcium 01/22/2024 10:12:19 9.3 8.4-10.2 ( mg/dL) Final Protein 01/22/2024 10:12:19 7.0 6.0-8.3 (g /dL) Final ALT (Alanine aminotransferase) 01/22/2024 10:12:19 11 10-35 (U/L) Axel lopez Performing Location [facility] [address] [facility] [address]
--- OUTSIDE RECORDS SUMMARY | 2024-02-23 02:48 | External Medical Summary | Summary of Care ---
Author Name Unknown Organization [facility] Address [address] [facility] [place] [place] [address] Phone [phone] Care Team Providers Care Heel Slicker Name Role Phone Jason West MD Primary Care Provider [phone]- [phone] Reason for Visit * Reason Comments Chemotherapy paclitaxel/carbo * Episode Based Medications (Routine) - Authorized Specialty Diagnoses / Procedures Referred By Abdullahi melo Referred To Contact Diagnoses GE junction carcinoma (HCC) Encounter for antineoplastic chemotherapy Procedures [place] PALONOSETRON HCL [place] CARBOPLATIN INJECTION [place] PACLITAXEL INJECTION Marquez Kolb MD 200 [facility] [place] [address] Anc Hem/Onc [address] [place] [address] Referral ID Status Reason Start Date Expiration Date V isits Requested Visits Authorized [id number] Authorized 01/04/2024 07/01/2024 [id number] Encounter Details Date Type Department Care Team (Latest Contact Info) Description 01/17/2024 10:00 AM EDT Hem/Onc Treatment Hematology/Oncolog y Treatment, [address] [place] [address] Jeny, Chair 4 Hem Onc [address] [place] [address] GE junction carcinoma (HCC)*; Encounter for antineoplastic chemotherapy Allergies Active Allergy Reactions Criticality Noted Date Comments Hydroxyzine Hcl 05/12/2012 halluzinating Cetirizine & Related 02/11/1999 HALLUCINATIONS documented as of this encounter (statuses as of 01/17/2024) Medications Medication Sig Dispensed Refills Start Date End Date Status MULTIVITAMIN/DIRECTOR ORACLE DATABASE AL FORMULA TABS OR 1 TABLET DAILY 0 0 12/02/2001 Active SYSTANE PRESERVATIVE FREE 0.4-0.3 % OP SOLNIndications:Ot her anterior corneal dystrophies 1 gtt OU q2h WA 1 box 6 12/03/2008 Active CALCIUM 9509-1305 MG-UNIT PO CHEW Take 1 Tablet by mouth in the morning. Active Cinnamon 500 MG Capsule Take 2 Capsules by mouth in the morning. Active ONETOUCH ULTRASOFT LANCETS MISCIndications:DM type 2 causing renal disease ([facility]) Use as directed daily. Use up to four times a day as directed. Dx E11.9 3 Box Dosing Unit 3 09/13/2018 Active aspirin enteric coated 81 MG TBECIndications:Co ronary artery disease involving [place] coronary artery of [place] heart without angina pectoris Take 1 Tab by mouth daily. 30 Tab 11 07/17/2019 Active Loratadine 10 MG Oral Capsule Take 1 Capsule by mouth in the morning. Active Magnesium 400 MG Capsule Take 1 by mouth daily. 30 Cap 11 01/11/2020 Active acetaminophen (TYLENOL) 325 MG Tablet 2 Tablets. 04/13/2020 Active Nitroglycerin 0.4 MG Sublingual Tablet Sublingual (Nitrostat)Indicat ions:Coronary artery disease involving [place] coronary artery of [place] heart without angina pectoris,Old [place] (myocardial infarction) Place 1 Tablet under the tongue every 5 minutes as needed for Pain, Chest. 25 Tablet 5 09/03/2022 Active Insulin Pen Needle 32G X 5 MMIndications:DM type 2 causing renal disease, not at goal ([facility]) use to inject lantus twice per day 200 Each 3 03/26/2023 Active OneTouch Verio In Vitro Strip (Glucose Blood)Indications: DM type 2 causing renal disease ([facility]) Check blood sugars one time daily. Dx E11.9 300 Strip 2 05/03/2023 Active Atorvastatin Calcium 40 MG Oral Tablet (Lipitor)Indicatio ns:Coronary artery disease involving [place] coronary artery of [place] heart without angina pectoris,Dyslipide mona TAKE 1 TABLET DAILY IN THE MORNING 90 Tablet 3 05/27/2023 Active Insulin Glargine Solostar 100 UNIT/ML Subcutaneous Solution Pen-injector (Lantus SoloStar)Indicatio ns:DM type 2 causing renal disease, not at goal ([facility]) INJECT 20 UNITS SUBCUTANEOUSLY TWICE DAILY 30 mL 2 07/08/2023 Active Digoxin 125 MCG Oral Tablet (Lanoxin)Indicatio ns:Chronic systolic heart failure ([facility]),Coronary artery disease involving [place] coronary artery of [place] heart without angina pectoris Take 1 Tablet [...] Dyslipidemia 02/18/2018 Coronary artery disease invo lving [place] coronary artery of [place] heart without angina pectoris 12/10/2017 PAF (paroxysmal [...] mRNA, LNP-s, No Pre serve, 2-Dose Series ([employer]) 07/23/2021,11/14/2020,10/24/2020 COVID-19, MRNA-LNP, 23-24, P F, 30 MCG/0.3 mL, 12 YRS AND ABOVE, IM ([employer] [facility] [facility]) 05/26/2023 Covid-19, Mrna, Lnp-s, [...] Description 01/22/2024 10:00 AM EDT [facility] [address] [phone] [place] [address] [place], [place] [address] [address] 01/24/2024 11:00 AM EDT Hem/Onc Treatment Hematology/Oncology Treatment, [place] [facility] [phone] Jeny Chair 2 Hem Onc Scen[address] [facility] [address] 01/29/2024 10:00 AM EDT [facility] 132 [place] [address] [facility] [place] [address] 01/31/2024 9:30 AM EDT Office Visit Hematology/Oncology [facility] [place] [address] [place] [phone] Marquez Kolb MD [address] [place] [address] 01/31/2024 11:00 AM EDT Hem/Onc Treatment Hematology/Oncology Treatment, [place] [address] [place] [phone] Jeny, Chair 10 Hem Onc [facility] 200 [facility] [place] [address] 03/08/2024 10:00 AM EDT Cardiac Studies Cardiology, [facility] 132 [facility] [place] [address] [facility] [address] [facility] [address] 04/05/2024 1:00 PM EDT Office Visit [facility] [address] [place] [address] Jason West MD [address] [place] [address] Health Maintenance Due Date Last Done Comments Hepatitis C Screening 1963 COVID-19 Vaccine (2022- season) 2023 05/26/2023, 05/26/2022, 07/23/2021, Additional history exists Albumin/Creatinine Ratio 10/03/2023 023, 08/28/2021, 11/18/2020, Additional history exists CKD PHOS USE SMARTSET 30759 10/03/2023 03/0 09/2022, 03/17/2021, 08/18/2019, Additional history [...] Additional history exists CKD HGB USE SMARTSET 20945 01/10/202501/10, 01/11/2024, 12/17/2023, Additional history exists DXA [...] ONCE PRN Other, Hypersensitivity Reaction, Starting on Wed01/17/24 at 1029, Until Wed01/18/24 at 1028, For 24 hours EPINEPHrine 1 MG/ML inj 0.3 mg 0.3 mg, Intramuscular, ONCE PRN Other, Hypersensitivity Reaction or Anaphylaxis, Starting on Wed01/17/24 at 1029, Until Wed01/18/24 at 1028, For 24 hours hEParin 100 UNIT/ML Lock Flush inj 500 Units 500 Units (5 mL), IV Lock, PRN Other, IV Flush, Starting on Wed01/17/24 at 1029, Until Wed01/18/24 at 1028, For 24 hours, Do not flush if lock, PICC, or central line not in place; IV infusing or unable to flush. Hydrocortisone Sod Suc (PF) (Solu-Cortef) inj 100 mg 100 mg, IV Push, ONCE PRN Other, Hypersensitivity Reaction, Starting on Wed01/17/24 at 1029, Until Wed01/18/24 at 1028, For 24 hours LORAzepam (Ativan) tab 0.5 mg 0.5 mg, Oral, ONCE PRN Anxiety, Nausea, Starting on Wed01/17/24 at 1130, Until Discontinued NSS infusion Intravenous, at 50 mL/hr, PRN, Starting on Wed01/17/24 at 1130, Until Discontinued, Maintenance line Start Infusion 01/17/2024 10:37 AM EDT 50 mL/hr oxygen GAS Inhalation, OXYGEN, First dose on Wed01/17/24 at 1100, Until Discontinued, Device/Managed by: Low Flow Device, [...] Push, PRN Other, IV Flush, Starting on Wed01/17/24 at 1029, Until Wed01/18/24 at 1028, For 24 hours, Do not flush if [...] Given 01/17/2024 10:54 AM EDT 20 mg PACLitaxel (Taxol) 106 mg in NSS 250 mL infusion 106 mg (50 mg/m2 2.12 m2 Treatment Plan BSA from Recorded weight), IV Piggyback, at 255 mL/hr Administer over 60 Minutes, Administer through 0.22 micron low protein binding filter!, ONCE, 1 dose, On Wed01/17/24 at 1200 Start Infusion 01/17/2024 11:25 AM EDT 106 mg 255 mL/hr Palonosetron (Aloxi) inj SOLN 0.25 mg 0.25 mg, IV Push, ONCE, On Wed01/17/24 at 1130, For 1 dose, Restricted per S antiemetic guidelines Given 01/17/2024 10:55 AM EDT 0.25 mg documented in this encounter Care Teams Heel Slicker Relationship Specialty Start Date End Date Jason West MD [address] [facility] [place] [address] PCP - General 02/06/03 documented as of this encounter
--- OUTSIDE RECORDS SUMMARY | 2024-02-23 02:48 | External Medical Summary | Summary of Care ---
Author Name Unknown Organization [facility] Address [address] [place] [address] Phone [phone] Care Team Providers Care Highway Patrol Pilot Name Role Phone Jason West MD Primary Care Provider +1- [phone] Reason for Visit * Reason Onset Date Comments Appointment 01/12/2024 [place] Encounter Details Date Type Department Care Team (Late st Contact Info) Description 01/12/2024 Telephone Access Center, [place] [address] [facility] *DO NOT REMOVE THIS DEPARTMENT* [place] [address] Services, Scheduling [address] [place] [address] Appointment ([place]) Allergies Active Allergy Reactions Criticality Noted Date Comments Hydroxyzine Hcl 05/12/2012 halluzinating Cetirizine & Related 02/11/1999 HALLUCINATIONS documented as of this encounter (statuses as of 01/14/2024) Medications Medication Sig Dispensed Refills Start Date End Date Status MULTIVITAMIN/SOCIOLOGY ADJUNCT INSTRUCTOR AL FORMULA TABS OR 1 TABLET DAILY 0 0 12/02/2001 Active SYSTANE PRESERVATIVE FREE 0.4-0.3 % OP SOLNIndications:Ot her anterior corneal dystrophies 1 gtt OU q2h WA 1 box 6 12/03/2008 Active CALCIUM 7066-3713 MG-UNIT PO CHEW Take 1 Tablet by [...] 81 MG TBECIndications:Co ronary artery disease involving [place] coronary artery of [place] heart without angina pectoris Take 1 Tab by mouth daily. 30 Tab 11 07/17/2019 Active Loratadine 10 MG Oral Capsule Take 1 Capsule by mouth in the morning. Active Magnesium 400 MG Capsule Take 1 by mouth daily. 30 Cap 11 01/11/2020 Active acetaminophen (TYLENOL) 325 MG Tablet 2 Tablets. 04/13/2020 Active Nitroglycerin 0.4 MG Sublingual Tablet Sublingual (Nitrostat)Indicat ions:Coronary artery disease involving [place] coronary artery of [place] heart without angina pectoris,Old [place] (myocardial infarction) [...] Oral Tablet (Lipitor)Indicatio ns:Coronary artery disease involving [place] coronary artery of [place] heart without angina pectoris,Dyslipide mona TAKE 1 TABLET DAILY IN THE MORNING 90 Tablet 3 05/27/2023 Active Insulin Glargine Solostar 100 UNIT/ML Subcutaneous Solution Pen-injector (Lantus SoloStar)Indicatio ns:DM type 2 causing renal disease, 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) INJECT 20 UNITS SUBCUTANEOUSLY TWICE DAILY 30 mL 2 07/08/2023 Active Digoxin 125 MCG Oral Tablet (Lanoxin)Indicatio ns:Chronic systolic heart failure (HCC),Coronary artery disease involving [place] coronary artery of [place] heart without angina pectoris Take 1 Tablet [...] Take 1 Capsule by mouth daily. Active Ketoconazole 2 % External Shampoo Apply topically to affected area every 3 days for 28 days. Shampoo twice a week for 4 weeks. 120 mL 1 12/17/2023 Active glipiZIDE 5 MG Oral Tablet (Glucotrol) [...] as of this encounter (statuses as of 01/14/2024) Active Problems Problem Noted Date Diagnosed Date [...] Dyslipidemia 02/18/2018 Coronary artery disease invo lving [place] coronary artery of [place] heart without angina pectoris 12/10/2017 PAF (paroxysmal atrial fibrillation) 12/10/2017 Type 2 diabetes mellitus wit h hemoglobin A1c goal of less than 8.0% 09/08/2013 Overview: ICD-10 update of inactive term DJD, CERVICAL SPINE 04/12/2002 GENERAL OSTEOARTHROSIS documented as of this encounter (statuses as of 01/14/2024) Resolved Problems Problem Noted Date Diagnosed Date [...] as of this encounter (statuses as of 01/14/2024) Immunizations Name Administration Dates Next Due COVID-19 mRNA, LNP-s, No Pre serve, 2-Dose Series ([employer]) 07/23/2021,11/14/2020,10/24/2020 COVID-19, MRNA-LNP, 23-24, P F, 30 MCG/0.3 mL, 12 YRS AND ABOVE, IM ([facility]) 05/26/2023 Covid-19, Mrna, Lnp-s, Pf, B [...] Telephone Encounter - Saba Sevilla OSA - 01/14/2024 12:43 PM EDT Called pt and went over apts with her and she was ok with the date and time * Telephone Encounter - Farnaz Olivia OSA - 01/14/2024 12:28 PM EDT Patient returned call to schedule, she advised she is having radiation treatment on Mondays at the [facility] and they told her she should have her radiation treatment and then go to [facility] for chemo treatment and she wanted to relay this information. Please contact Ciara at [phone]. Thank you. * Telephone Encounter - Saba Sevilla OSA - 01/14/2024 8:30 AM EDT Left message and my g sent * Telephone Encounter - Saba Sevilla OSA - 01/13/2024 8:43 AM EDT Left message will try again tomorrow when pts back in town * Telephone Encounter - Saba Sevilla OSA - 01/12/2024 9:26 AM EDT Left message * Telephone Encounter - Jazmyne Albrecht OSA - 01/12/2024 8:17 AM EDT Pt would like a call back about starting her treatment. She will be leaving this morning and won't be back till Wednesday. Please advise. documented in this encounter Plan of Treatment Upcoming Encounters Date Type Department Care Team (Late st Contact Info) Description 01/17/2024 10:00 AM EDT Hem/Onc Treatment Hematology/Oncology Treatment, [address] [place] [phone] Jeny, Chair 4 Hem Onc [address] [place] [address] 01/22/2024 10:00 AM EDT Laboratory Laboratory, [facility] [address] [place] [phone] [facility] [address] [place] [address] 01/24/2024 11:00 AM EDT Hem/Onc Treatment Hematology/Oncology Treatment, [address] [place] [phone] Jeny, Chair 6 Hem Onc [address] [place] [address] 03/08/2024 10:00 AM EDT Cardiac Studies Cardiology, [facility] 132 [facility] [place] [address] [facility] 132 [facility] [place] [address] 04/05/2024 1:00 PM EDT Office Visit [facility] [address] [place] [facility] [place] [phone] Jason West MD [address] [place] [facility] [place] [address] Health Maintenance Due Date Last Done Comments Hepatitis C Screening 1963 COVID-19 Vaccine ( season) 2023 05/26/2023, 05/26/2022, 07/23/2021, Additional history exists Albumin/Creatinine Ratio 10/03/2023 023, 08/28/2021, 11/18/2020, Additional history exists CKD PHOS USE SMARTSET 23711 10/03/2023 03/0 09/2022, 03/17/2021, 08/18/2019, Additional history exists Depression Monitoring 12/03/2023 12/02/2022 DIG LEVEL FOR MEDICATION MONITORING YEARLY 03/08/2024 03/08/2023, 10/02/2022, 07/29/2021 HbA1c 06/18/2024 12/17/2023, 0801/2023, 10/02/2022, Additional history exists GFR 07/12/2024 01/11/2024, 11/30, 03/08/2023, Additional history exists Diabetic Eye Exam 11/01/2024 11/02/2023, , 04/07/2019, Additional history exists Diabetic Foot Exam 11/01/2024 11/02/2023, 0 03/17/2021, 12/27/2019, Additional history exists CKD HGB USE SMARTSET 10210 01/10/202501/10, 01/11/2024, 12/17/2023, Additional history exists DXA [...] filedocumented as of this encounter Care Teams Highway Patrol Pilot Relationship Specialty Start Date End Date Jason West MD [address] [place] [address] PCP - General 02/06/03 documented as of this encounter
--- OUTSIDE RECORDS SUMMARY | 2024-02-23 02:48 | External Medical Summary | Summary of Care ---
Author Name Unknown Organization [facility] Address [address] [place] [address] Phone [phone] Care Team Providers Care Cardiac Cath Tech Name Role Phone Jason West MD Primary Care Provider [phone]- [phone] Reason for Visit * Reason Onset Date Comments Appointment 01/12/2024 [place] Encounter Details Date Type Department Care Team (Late st Contact Info) Description 01/12/2024 Telephone Access Center, [place] [address] [facility] *DO NOT REMOVE THIS DEPARTMENT* [place] [address] Services, Scheduling [address] [place] [address] Appointment ([place]) Allergies Active Allergy Reactions Criticality Noted Date Comments Hydroxyzine Hcl 05/12/2012 halluzinating Cetirizine & Related 02/11/1999 HALLUCINATIONS documented as of this encounter (statuses as of 01/14/2024) Medications Medication Sig Dispensed Refills Start Date End Date Status MULTIVITAMIN/ENVELOPE SEALING MACHINE OPERATOR AL FORMULA TABS OR 1 TABLET DAILY 0 0 12/02/2001 Active SYSTANE PRESERVATIVE FREE 0.4-0.3 % OP SOLNIndications:Ot her anterior corneal dystrophies 1 gtt OU q2h WA 1 box 6 12/03/2008 Active CALCIUM 4397-2606 MG-UNIT PO CHEW Take 1 Tablet by [...] artery of [place] heart without angina pectoris,Old PR (myocardial infarction) Place 1 Tablet under the tongue every 5 minutes as needed for Pain, Chest. 25 Tablet 5 09/03/2022 Active Insulin Pen Needle 32G X 5 MMIndications:DM type 2 causing renal disease, not at goal ([facility]) use to inject lantus twice per [...] mRNA, LNP-s, No Pre serve, 2-Dose Series ([employer]) 07/23/2021,11/14/2020,10/24/2020 COVID-19, MRNA-LNP, 23-24, P F, 30 MCG/0.3 mL, 12 YRS AND ABOVE, IM ([employer]) 05/26/2023 Covid-19, [...] encounter Miscellaneous Notes * Telephone Encounter - Farnaz Olivia OSA - 01/14/2024 12:28 PM EDT Patient returned call to schedule, she advised she is having radiation treatment on Mondays at the [facility] and they told her she should have her radiation treatment and then go to [facility] for chemo treatment and she wanted to relay this information. Please contact Ciara at [phone]. Thank you. * Telephone Encounter - Saba [...] 10:00 AM EDT Hem/Onc Treatment Hematology/Oncology Treatment, [place] [address] [facility] [place] [phone] Jeny, Chair 4 Hem Onc Scenery 200 [facility] [place] [address] 01/22/2024 10:00 AM EDT Laboratory Laboratory, [facility] [phone] [place] [facility] [address] 01/24/2024 11:00 AM EDT Hem/Onc Treatment Hematology/Oncology Treatment, [place] [address] [facility], [place] [phone] Jeny, Chair 6 Hem Onc [facility] 200 [facility] [place] [address] 03/08/2024 10:00 AM EDT Cardiac Studies Cardiology, [facility] [address] [facility] [address] [place], Pacer Clinic [facility] 132 [facility] [address] 04/05/2024 1:00 PM EDT Office Visit [facility] [address] [place] [address] Jason West MD [address] [place] [address] Health Maintenance Due Date Last Done Comments Hepatitis C Screening 1963 COVID-19 Vaccine ( season) 2023 05/26/2023, 05/26/2022, 07/23/2021, Additional history exists Albumin/Creatinine Ratio 10/03/20232 023, 08/28/2021, 11/18/2020, Additional history exists CKD PHOS USE SMARTSET 08877 10/03/2023 03/0 09/2022, 03/17/2021, 08/18/2019, Additional history [...] Additional history exists CKD HGB USE SMARTSET 54028 01/10/202501/10, 01/11/2024, 12/17/2023, Additional history exists DXA [...] filedocumented as of this encounter Care Teams Cardiac Cath Tech Relationship Specialty Start Date End Date Jason West MD [address] [facility] [place] [address] PCP - General 02/06/03 documented as of this encounter
--- OUTSIDE RECORDS SUMMARY | 2024-02-23 02:48 | External Medical Summary ---
Author Name Unknown Address Unknown Organization K09:[facility] [address] Laboratory Report Ordering Provider Test Date Status DAQUAN MOHAN 01/31/2024 11:15:04 Final Observation Date Value Abnormality Reference (Units ) Status WBC, Total 01/31/2024 11:15:04 0.94 Below lower panic limits 4.00-10.80 (K/uL) Final Results rechecked.
null RBC 01/31/2024 11:15:04 4.08 3.85-5.15 (M/uL) Final Hemoglobin 01/31/2024 11:15:04 9.6 Below low normal 12 .0-15.3 (g/dL) Final HCT 01/31/2024 11:15:04 32.5 Below low normal 36. 0-45.2 (%) Final MCV 01/31/2024 11:15:04 79.7 81.5-97.5 (fL) Final MCH 01/31/2024 11:15:04 23.5 27.0-34.0 (pg) Final MCHC 01/31/2024 11:15:04 29.5 32.0-36.0 (g/dL) Final RDW 01/31/2024 11:15:04 18.3 11.5-15.5 (%) Final Platelets 01/31/2024 11:15:04 157 140-400 (K /uL) Final MPV 01/31/2024 11:15:04 10.4 6.6-11.1 ( fL) Final Performing Location [facility] [address]
--- OUTSIDE RECORDS SUMMARY | 2024-02-23 02:49 | External Medical Summary | Summary of Care ---
Author Name Unknown Organization [facility] Address [address] [facility] [address] Phone [phone] Care Team Providers Care Tile Helper Name Role Phone Jason West MD Primary Care Provider [phone]- [phone] Reason for Visit * Reason Onset Date Comments Precert Future 01/04/2024 Carbo/Taxol Encounter Details Date Type Department Care Team (Late st Contact Info) Description 01/04/2024 Telephone Hematology/Oncology [facility] Jeny [place] [address] [place] [address] Marquez Kolb MD [address] [facility] [place] [address] Precert Future (Carbo/Taxol) Allergies Active Allergy Reactions Criticality Noted Date Comments Hydroxyzine Hcl 05/12/2012 halluzinating Cetirizine & Related 02/11/1999 HALLUCINATIONS documented as of this encounter (statuses as of 01/12/2024) Medications Medication Sig Dispensed Refills Start Date End Date Status MULTIVITAMIN/MINE RAL FORMULA TABS OR 1 TABLET DAILY 0 0 2 Active SYSTANE PRESERVATIVE FREE 0.4-0.3 % OP SOLNIndications:O ther anterior corneal dystrophies 1 gtt OU q2h WA 1 box 6 9 Active CALCIUM 3338-6238 MG-UNIT PO CHEW Take 1 Tablet by [...] 81 MG TBECIndications:C oronary artery disease involving elem coronary artery of elem heart without angina pectoris Take 1 Tab by mouth daily. 30 Tab 11 9 Active Loratadine 10 MG Oral Capsule Take 1 Capsule by mouth in the morning. Active Magnesium 400 MG Capsule Take 1 by mouth daily. 30 Cap 11 0 Active acetaminophen (TYLENOL) 325 MG Tablet 2 Tablets. 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 Active Ketoconazole 2 % External Shampoo Apply topically to affected area every 3 days for 28 days. Shampoo twice a week for 4 weeks. 120 mL 1 4 01/14/20 24 Active glipiZIDE 5 MG Oral Tablet (Glucotrol) Take 1 Tablet by mouth in the morning and 1 Tablet before bedtime. 180 Tablet 3 4 Active Ondansetron HCl 8 MG Oral TabletIndications :GE junction carcinoma (HCC) Take 1 Tablet by mouth every 8 hours as needed for Nausea. 30 Tablet 4 Active Prochlorperazine Maleate 10 MG Oral Tablet (Compazine)Indica tions:GE junction carcinoma (HCC) Take 1 Tablet by mouth every 6 hours as needed for Nausea. 30 Tablet 4 Active dexAMETHasone 4 MG Oral TabletIndications :GE junction carcinoma (HCC) 12 mg (3 tab) 12 and 6 hours before chemotherapy 40 Tablet 4 Active Torsemide 10 MG Oral Tablet (Demadex) Take 1 Tablet by mouth in the morning. 01/10/20 24 Discontinu ed(Refill) Midodrine HCl 2.5 MG Oral Tablet (Proamatine) Take 1 Tablet by mouth in the morning and 1 Tablet at noon and 1 Tablet before bedtime. 4 01/10/20 24 Discontinu ed(Refill) pantoprazole 40 mg in 100 mL NSS Administer 100 mL intravenously in the morning. 01/10/20 24 Discontinu ed(Medicat ion List Clean Up) documented as of this encounter (statuses as of 01/12/2024) Active Problems Problem Noted Date Diagnosed Date [...] Dyslipidemia 02/18/2018 Coronary artery disease invo lving elem coronary artery of elem heart without angina pectoris 12/10/2017 PAF (paroxysmal atrial fibrillation) 12/10/2017 Type 2 diabetes mellitus wit h hemoglobin A1c goal of less than 8.0% 09/08/2013 Overview: ICD-10 update of inactive term DJD, CERVICAL SPINE 04/12/2002 GENERAL OSTEOARTHROSIS documented as of this encounter (statuses as of 01/12/2024) Resolved Problems Problem Noted Date Diagnosed Date [...] as of this encounter (statuses as of 01/12/2024) Immunizations Name Administration Dates Next Due COVID-19 mRNA, LNP-s, No Pre serve, 2-Dose Series ([employer]) 07/23/2021,11/14/2020,10/24/2020 COVID-19, MRNA-LNP, 23-24, P F, [...] Encounter - Saba [place] OSA - 01/12/2024 8:36 AM EDT Pt is scheduled * Telephone Encounter - Zeyad Hernandez RN - 01/11/2024 3:18 PM EDT Spoke with Rad/Onc plan to start patient Tuesday 01/16. Scheduling- Please call patient to schedule the following appointments: - 3 hour treatment "Carbo/Taxol C1,D1" ([place]) on 01/16 @ 10AM - No lab appointment is needed per Dr. Kolb, labs from today are ok to proceed. - 3 hour treatment "Carbo/Taxol C2,D1" ([place]) on 01/23 @ 11AM. - Lab appointment in [place] "CBCD,CMP" on Sunday 01/21. * Telephone Encounter - Zyead Hernandez RN - 01/11/2024 2:41 PM EDT Education completed, pt went to lab today for baseline/hep b labs. TT sent to Rad/Onc scheduling to coordinate first treatment. * Telephone Encounter - Delmy Beal RN - 01/06/2024 12:43 PM EDT Referral entered. * Telephone Encounter - Zeyad Hernandez RN - 01/04/2024 3:08 PM EDT Orders received, beacon plan built and routed. Awaiting auth. -Chemo Consent: 01/04/24 -Chemo Education: 01/11/24 -Port Placement: N/A -Standing Lab orders placed: CBCD,CMP -Medications Pended: Dexamethasone, Zofran, Compazine -Hep B Labs: Need completed documented in this encounter Plan of Treatment Upcoming Encounters Date Type Department Care Team (Late st Contact Info) Description 01/17/2024 10:00 AM EDT Hem/Onc Treatment Hematology/Oncology Treatment, [address] [place] [phone] Jeny, Chair 4 Hem Onc [address] [place] [address] 01/22/2024 10:00 AM EDT Laboratory Laboratory, [facility] [address] [place] [phone] [facility] [address] [place] [address] 01/24/2024 11:00 AM EDT Hem/Onc Treatment Hematology/Oncology Treatment, [address], [place] [phone] Jeny, Chair 6 Hem Onc [address] [place] [address] 01/26/2024 10:00 AM EDT Office Visit Cardiology, [facility] [address] [place] [address] Segun Cooley MD [address] [place] [address] 02/21/2024 9:30 AM EDT Office Visit Cardiology, [facility] [address] [place] [address] Aurelio Viera, PA-C [address] [place] [address] 03/08/2024 10:00 AM EDT Cardiac Studies Cardiology, [facility] [address] [place] [address] [place] [facility] [address] [place] [address] 04/05/2024 1:00 PM EDT Office Visit [facility] [address] [place] [facility] [place] [phone] aJson West MD [address] [place] [address] Scheduled Orders Name Type Priority Associated Diagnoses Orde r Schedule CBC WITH WBC DIFFERENTIAL Lab STAT GE junction carcinoma (HCC) Every Week for 8 Occurrences starting 01/04/2024 until 01/03/2025, 1 completed COMPREHENSIVE METABOLIC PANEL Lab STAT GE junction carcinoma (HCC) Every Week for 8 Occurrences starting 01/04/2024 until 01/03/2025, 1 completed Health Maintenance Due Date Last Done Comments Hepatitis C Screening 1963 COVID-19 Vaccine ( season) 2023 05/26/2023, 05/26/2022, 07/23/2021, Additional history exists Albumin/Creatinine Ratio 10/03/20232 023, 08/28/2021, 11/18/2020, Additional history exists CKD PHOS USE SMARTSET 88569 10/03/2023 030 09/2022, 03/17/2021, 08/18/2019, Additional history exists Depression Monitoring 12/03/2023 12/02/2022 DIG LEVEL FOR MEDICATION MONITORING YEARLY 03/08/2024 03/08/2023, 10/02/2022, 07/29/2021 HbA1c 06/18/2024 12/17/2023, 0801/2023, 10/02/2022, Additional history exists GFR 07/12/2024 01/11/2024, 11/30, 03/08/2023, Additional history exists Diabetic Eye Exam 11/01/2024 11/02/2023, , 04/07/2019, Additional history exists Diabetic Foot Exam 11/01/2024 11/02/2023, 0 03/17/2021, 12/27/2019, Additional history exists CKD HGB USE SMARTSET 39591 01/10/202501/10, 01/11/2024, 12/17/2023, Additional history exists DXA [...] Not on filedocumented as of this encounter Results * HEPATITIS B CORE ANTIBODIES IGG AND IGM (01/11/2024 2:31 PM EDT) Hepatitis B Core Antibodies IgG and IgM Negative Negative 01/12/2024 2:26 AM EDT [facility] Blood Venous blood specimen / Unknown Venipuncture / Unknown 01/11/2024 2:31 PM EDT 01/11/2024 2:31 PM EDT Marquez Kolb MD LAB BLOOD [facility] [address] [place] [address] * HEPATITIS B SURFACE ANTIGEN (01/11/2024 2:31 PM EDT) Pathologist [facility] Hepatitis B Surface Antigen Negative Negative 01/12/2024 2:26 AM EDT [facility] Blood Venous blood specimen / Unknown Venipuncture / Unknown 01/11/2024 2:31 PM EDT 01/11/2024 2:31 PM EDT Marquez Kolb MD LAB BLOOD [facility] [address] [place] [address] * HEPATITIS B SURFACE ANTIBODY (01/11/2024 2:31 PM EDT) Pathologist [facility] Hepatitis B Surface Antibody, Quantitative <3.5 mIU/mL 01/12/2024 2:26 AM EDT [facility] Hepatitis B Surface Antibody, Qualitative Negative 01/12/2024 2:26 AM EDT [facility] Hepatitis B Surface Antibody, Interpretation NOT immune to Hepatitis B Virus 01/12/2024 2:26 AM EDT [facility] Comment: POSITIVE: >=11.5 mIU/mL INDETERMINATE: 8.5-<11.5 mIU/mL NEGATIVE: <8.5 mIU/mL Blood Venous blood specimen / Unknown Venipuncture / Unknown 01/11/2024 2:31 PM EDT 01/11/2024 2:31 PM EDT Marquez Kolb MD LAB BLOOD [facility] [address] [place] [address] * (ABNORMAL) COMPREHENSIVE METABOLIC PANEL (01/11/2024 2:31 PM EDT) Pathologist [facility] BUN 15 6 - 20 mg/dL 01/11/2024 2:58 PM EDT LABORATORY [place] 56-02 Creatinine 0.8 0.5 - 1.0 mg/dL 01/11/2024 2:58 PM EDT [facility] 56 Estimated Glomerular Filtration Rate 73 >=60 mL/min 01/11/2024 2:58 PM EDT [facility] 56- Comment:eGFR is calculated b ased on the CKD-EPI 2020 equation Sodium 142 135 - 146 mmol/L 01/11/2024 2:58 PM EDT [facility] 56 Potassium 4.6 3.5 - 5.1 mmol/L 01/11/2024 2:58 PM EDT [facility] 56 Chloride 104 98 - 107 mmol/L 01/11/2024 2:58 PM EDT [facility] 56 CO2 27 22 - 32 mmol/L 01/11/2024 2:58 PM EDT [facility] 56 Anion Gap 11 7 - 15 mmol/L 01/11/2024 2:58 PM EDT [facility] 56 Glucose 92 70 - 120 mg/dL 01/11/2024 2:58 PM EDT [facility] 56 Albumin 3.6(L) 3.8 - 5.0 g/dL 01/11/2024 2:58 PM EDT [facility] 56 AST 21 10 - 35 U/L 01/11/2024 2:58 PM EDT [facility] 56 Alkaline Phosphatase 90 35 - 130 U/L 01/11/2024 2:58 PM EDT [facility] 56 Bilirubin, Total 0.5 <=1.2 mg/dL 01/11/2024 2:58 PM EDT [facility] 56 Calcium 9.4 8.4 - 10.2 mg/dL 01/11/2024 2:58 PM EDT [facility] 56 Protein 7.3 6.0 - 8.3 g/dL 01/11/2024 2:58 PM EDT [facility] 56 ALT 7(L) 10 - 35 U/L 01/11/2024 2:58 PM EDT [facility] 56- Blood Venous blood specimen / Unknown Venipuncture / Unknown 01/11/2024 2:31 PM EDT 01/11/2024 2:31 PM EDT Marquez oKlb MD LAB BLOOD [facility] [place] 56-[address] [place], [place] [id number] documented in this encounter Visit Diagnoses Diagnosis 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
--- OUTSIDE RECORDS SUMMARY | 2024-02-23 02:49 | External Medical Summary | Summary of Care ---
Author Name Unknown Organization [facility] Address [address] [place] [address] Phone [phone] Care Team Providers Care Federal Air Marshal Name Role Phone Jason West MD Primary Care Provider +1- [phone] Reason for Visit * Reason Onset Date Comments Appointment 01/12/2024 [place] Encounter Details Date Type Department Care Team (Late st Contact Info) Description 01/12/2024 Telephone Access Center, [place] [address] [facility] *DO NOT REMOVE THIS DEPARTMENT* [place] [address] Services, Scheduling [address] [place] [address] Appointment ([place]) Allergies Active Allergy Reactions Criticality Noted Date Comments Hydroxyzine Hcl 05/12/2012 halluzinating Cetirizine & Related 02/11/1999 HALLUCINATIONS documented as of this encounter (statuses as of 01/12/2024) Medications Medication Sig Dispensed Refills Start Date End Date Status MULTIVITAMIN/VIDEO GAMES STORYWRITER AL FORMULA TABS OR 1 TABLET DAILY 0 0 12/02/2001 Active SYSTANE PRESERVATIVE FREE 0.4-0.3 % OP SOLNIndications:Ot her anterior corneal dystrophies 1 gtt OU q2h WA 1 box 6 12/03/2008 Active CALCIUM 9659-4541 MG-UNIT PO CHEW Take 1 Tablet by [...] 81 MG TBECIndications:Co ronary artery disease involving [place] coronary artery of [place] heart without angina pectoris Take 1 Tab by mouth daily. 30 Tab 11 07/17/2019 Active Loratadine 10 MG Oral Capsule Take 1 Capsule by mouth in the morning. Active Magnesium 400 MG Capsule Take 1 by mouth daily. 30 Cap 11 01/11/2020 Active acetaminophen (TYLENOL) 325 MG Tablet 2 Tablets. 04/13/2020 Active Nitroglycerin 0.4 MG Sublingual Tablet Sublingual (Nitrostat)Indicat ions:Coronary artery disease involving [place] coronary artery of [place] heart without angina pectoris,Old UT (myocardial infarction) [...] Oral Tablet (Lipitor)Indicatio ns:Coronary artery disease involving [place] coronary artery of [place] heart without angina pectoris,Dyslipide mona TAKE 1 TABLET DAILY IN THE MORNING 90 Tablet 3 05/27/2023 Active Insulin Glargine Solostar 100 UNIT/ML Subcutaneous Solution Pen-injector (Lantus SoloStar)Indicatio ns:DM type 2 causing renal disease, 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) INJECT 20 UNITS SUBCUTANEOUSLY TWICE DAILY 30 mL 2 07/08/2023 Active Digoxin 125 MCG Oral Tablet (Lanoxin)Indicatio ns:Chronic systolic heart failure (HCC),Coronary artery disease involving [place] coronary artery of [place] heart without angina pectoris Take 1 Tablet [...] Dyslipidemia 02/18/2018 Coronary artery disease invo lving [place] coronary artery of [place] heart without angina pectoris 12/10/2017 PAF (paroxysmal [...] mRNA, LNP-s, No Pre serve, 2-Dose Series ([employer]) 07/23/2021,11/14/2020,10/24/2020 COVID-19, MRNA-LNP, 23-24, P F, 30 MCG/0.3 mL, 12 YRS AND ABOVE, IM ([employer]) 05/26/2023 Covid-19, Mrna, Lnp-s, Pf, B ivalent, [...] 10:00 AM EDT Hem/Onc Treatment Hematology/Oncology Treatment, [address], [place] [phone] Jeny, Chair 4 Hem Onc [facility] [address] [place], [place] [address] [address] 01/22/2024 10:00 AM EDT Laboratory Laboratory, [facility] [address] [place] [phone] [facility] [address] [place] [address] 01/24/2024 11:00 AM EDT Hem/Onc Treatment Hematology/Oncology Treatment, [address], [place] [phone] Jeny, Chair 6 Hem Onc [facility] [address] [place] [address] [place] [address] 01/26/2024 10:00 AM EDT Office Visit Cardiology, [facility] [address] [place] [address] Segun Cooley MD [address] [place] [address] 02/21/2024 9:30 AM EDT Office Visit Cardiology, [facility] [address] [place] [address] Aurelio Viera PA-C [address] [place] [address] 03/08/2024 10:00 AM EDT Cardiac Studies Cardiology, [facility] [address] [place] [address] [place], Pacer Clinic [facility] [address] [place] [address] 04/05/2024 1:00 PM EDT Office Visit [facility] [address] [place] [address] Jason West MD [address] [place] [address] Health Maintenance Due Date Last Done Comments Hepatitis C Screening 1963 COVID-19 Vaccine ( season) 2023 05/26/2023, 05/26/2022, 07/23/2021, Additional history exists Albumin/Creatinine Ratio 10/03/2023 023, 08/28/2021, 11/18/2020, Additional history exists CKD PHOS USE SMARTSET 64871 10/03/2023 03/0 09/2022, 03/17/2021, 08/18/2019, Additional history exists Depression Monitoring 12/03/2023 12/02/2022 DIG LEVEL FOR MEDICATION MONITORING YEARLY 03/08/2024 03/08/2023, 10/02/2022, 07/29/2021 HbA1c 06/18/2024 12/17/2023, 08/01/2023, 10/02/2022, Additional history exists GFR 07/12/2024 01/11/2024, 11/30, 03/08/2023, Additional history exists Diabetic Eye Exam 11/01/2024 11/02/2023, , 04/07/2019, Additional history exists Diabetic Foot Exam 11/01/2024 11/02/2023, 0 03/17/2021, 12/27/2019, Additional history exists CKD HGB USE SMARTSET 51160 01/10/202501/10, 01/11/2024, 12/17/2023, Additional history exists DXA [...] filedocumented as of this encounter Care Teams Federal Air Marshal Relationship Specialty Start Date End Date Jason West MD [address] [place] [address] PCP - General 02/06/03 documented as of this encounter
--- OUTSIDE RECORDS SUMMARY | 2024-02-23 02:49 | External Medical Summary | Summary of Care ---
Author Name Unknown Organization [facility] Address [address] [facility] [address] Phone [phone] Care Team Providers Care Solution Developer Name Role Phone Jason West MD Primary Care Provider +1- [phone] Reason for Visit * Reason Onset Date Comments Precert Future 01/04/2024 Carbo/Taxol Encounter Details Date Type Department Care Team (Late st Contact Info) Description 01/04/2024 Telephone Hematology/Oncology [facility] Jeny [place] [address] [place] [address] Marquez Kolb MD 200 [facility] [place] [address] Precert Future (Carbo/Taxol) Allergies Active Allergy Reactions Criticality Noted Date Comments Hydroxyzine Hcl 05/12/2012 halluzinating Cetirizine & Related 02/11/1999 HALLUCINATIONS documented as of this encounter (statuses as of 01/13/2024) Medications Medication Sig Dispensed Refills Start Date End Date Status MULTIVITAMIN/MINE RAL FORMULA TABS OR 1 TABLET DAILY 0 0 2 Active SYSTANE PRESERVATIVE FREE 0.4-0.3 % OP SOLNIndications:O ther anterior corneal dystrophies 1 gtt OU q2h [place] 1 box 6 9 Active CALCIUM 8417-3580 MG-UNIT PO CHEW Take 1 Tablet by [...] 81 MG TBECIndications:C oronary artery disease involving [place] coronary artery of [place] heart without angina pectoris Take 1 Tab by mouth daily. 30 Tab 11 9 Active Loratadine 10 MG Oral Capsule Take 1 Capsule by mouth in the morning. Active Magnesium 400 MG Capsule Take 1 by mouth daily. 30 Cap 11 0 Active acetaminophen (TYLENOL) 325 MG Tablet 2 Tablets. 0 Active Nitroglycerin 0.4 MG Sublingual Tablet Sublingual (Nitrostat)Indica tions:Coronary artery disease involving [place] coronary artery of [place] heart without angina pectoris,Old [place] (myocardial infarction) [...] Oral Tablet (Lipitor)Indicati ons:Coronary artery disease involving [place] coronary artery of [place] heart without angina pectoris,Dyslipid emia TAKE 1 TABLET DAILY IN THE MORNING 90 Tablet 3 3 Active Insulin Glargine Solostar 100 UNIT/ML Subcutaneous Solution Pen-injector (Lantus SoloStar)Indicati ons:DM type 2 causing renal disease, 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) INJECT 20 UNITS SUBCUTANEOUSLY TWICE DAILY 30 mL 2 3 Active Digoxin 125 MCG Oral Tablet (Lanoxin)Indicati ons:Chronic systolic heart failure (HCC),Coronary artery disease involving [place] coronary artery of [place] heart without angina pectoris Take 1 Tablet [...] as of this encounter (statuses as of 01/13/2024) Active Problems Problem Noted Date Diagnosed Date [...] 02/18/2018 Coronary artery disease invo lving [place] coronary artery of [place] heart without angina pectoris 12/10/2017 PAF (paroxysmal atrial fibrillation) 12/10/2017 Type 2 diabetes mellitus wit h hemoglobin A1c goal of less than 8.0% 09/08/2013 Overview: ICD-10 update of inactive term DJD, CERVICAL SPINE 04/12/2002 GENERAL OSTEOARTHROSIS documented as of this encounter (statuses as of 01/13/2024) Resolved Problems Problem Noted Date Diagnosed Date [...] as of this encounter (statuses as of 01/13/2024) Immunizations Name Administration Dates Next Due COVID-19 mRNA, LNP-s, No Pre serve, 2-Dose Series ([employer]) 07/23/2021,11/14/2020,10/24/2020 COVID-19, MRNA-LNP, 23-24, P F, [...] 01/23 @ 11AM. - Lab appointment in [place] "CBCD,CMP" on Sunday 01/21. * Telephone Encounter - Zeyad Hernandez RN - 01/11/2024 2:41 PM EDT [...] 10:00 AM EDT Hem/Onc Treatment Hematology/Oncology Treatment, [address] [place] [phone] Jeny, Chair 4 Hem Onc [address] [place] [address] 01/22/2024 10:00 AM EDT Laboratory Laboratory, [facility] [phone] [facility] [address] [address] 01/24/2024 11:00 AM EDT Hem/Onc Treatment Hematology/Oncology Treatment, [address], [place] [phone] Jeny, Chair 6 Hem Onc [address] [place] [address] 03/08/2024 10:00 AM EDT Cardiac Studies Cardiology, [facility] 132 [facility] [place] [address] [facility] 132 [facility] [place] [address] 04/05/2024 1:00 PM EDT Office Visit [place] [address] [place] [phone] Jason West MD [address] [place] [address] Scheduled Orders Name Type Priority Associated Diagnoses [...] Additional history exists CKD PHOS USE SMARTSET 89800 10/03/2023 03/0 09/2022, 03/17/2021, 08/18/2019, Additional history exists Depression Monitoring 12/03/2023 12/02/2022 DIG LEVEL FOR MEDICATION MONITORING YEARLY 03/08/2024 03/08/2023, 10/02/2022, 07/29/2021 HbA1c 06/18/2024 12/17/2023, 0801/2023, 10/02/2022, Additional history exists GFR 07/12/2024 01/11/2024, 11/30, 03/08/2023, Additional history exists Diabetic Eye Exam 11/01/2024 11/02/2023, , 04/07/2019, Additional history exists Diabetic Foot Exam 11/01/2024 11/02/2023, 0 03/17/2021, 12/27/2019, Additional history exists CKD HGB USE SMARTSET 86187 01/10/202501/10, 01/11/2024, 12/17/2023, Additional history exists DXA [...] Negative Negative 01/12/2024 2:26 AM EDT LAB[facility]ATORY [facility] Blood Venous blood specimen / Unknown Venipuncture / Unknown 01/11/2024 2:31 PM EDT 01/11/2024 2:31 PM EDT Marquez Kolb MD LAB BLOOD ORDERA BLES Performing Organization Address City/[facility]/ZIP Co de Phone Number LABORATORY [facility] [address] [place] [address] * HEPATITIS B SURFACE ANTIGEN (01/11/2024 2:31 PM EDT) Hepatitis B Surface Antigen Negative Negative 01/12/2024 2:26 AM EDT LAB[facility]ATORY [facility] Blood Venous blood specimen / Unknown Venipuncture / Unknown 01/11/2024 2:31 PM EDT 01/11/2024 2:31 PM EDT Marquez Kolb MD LAB BLOOD ORDERA BLES LABORATORY [facility] [address] [place] [address] * HEPATITIS B SURFACE ANTIBODY (01/11/2024 2:31 PM EDT) Pathologist [facility] Hepatitis B Surface Antibody, Quantitative <3.5 mIU/mL 01/12/2024 2:26 AM EDT LABORATORY [facility] Hepatitis B Surface Antibody, Qualitative Negative 01/12/2024 2:26 AM EDT LABORATORY [facility] Hepatitis B Surface Antibody, Interpretation NOT immune to Hepatitis B Virus 01/12/2024 2:26 AM EDT LABORATORY [facility] Comment: POSITIVE: >=11.5 mIU/mL INDETERMINATE: 8.5-<11.5 mIU/mL NEGATIVE: <8.5 mIU/mL Blood Venous blood specimen / Unknown Venipuncture / Unknown 01/11/2024 2:31 PM EDT 01/11/2024 2:31 PM EDT Marquez Kolb MD LAB BLOOD ORDERA BLES Performing Organization Address City/State/[facility] Co de Phone Number LABORATORY [facility] [address] [place] [address] * (ABNORMAL) COMPREHENSIVE METABOLIC PANEL (01/11/2024 2:31 PM EDT) [facility] BUN 15 6 - 20 mg/dL 01/11/2024 2:58 PM EDT [facility] 56- Creatinine 0.8 0.5 - 1.0 mg/dL 01/11/2024 2:58 PM EDT [facility] 56- Estimated Glomerular Filtration Rate 73 >=60 mL/min 01/11/2024 2:58 PM EDT [facility] 56- Comment:eGFR is calculated b ased on the CKD-EPI 2020 equation Sodium 142 135 - 146 mmol/L 01/11/2024 2:58 PM EDT [facility] 56- Potassium 4.6 3.5 - 5.1 mmol/L 01/11/2024 2:58 PM EDT [facility] 56- Chloride 104 98 - 107 mmol/L 01/11/2024 2:58 PM EDT [facility] 56- CO2 27 22 - 32 mmol/L 01/11/2024 2:58 PM EDT [facility] 56-02 Anion Gap 11 7 - 15 mmol/L 01/11/2024 2:58 PM EDT [facility] 56- Glucose 92 70 - 120 mg/dL 01/11/2024 2:58 PM EDT [facility] 56- Albumin 3.6(L) 3.8 - 5.0 g/dL 01/11/2024 2:58 PM EDT [facility] 56- AST 21 10 - 35 U/L 01/11/2024 2:58 PM EDT [facility] 56- Alkaline Phosphatase 90 35 - 130 U/L 01/11/2024 2:58 PM EDT [facility] 56- Bilirubin, Total 0.5 <=1.2 mg/dL 01/11/2024 2:58 PM EDT [facility] 56- Calcium 9.4 8.4 - 10.2 mg/dL 01/11/2024 2:58 PM EDT [facility] 56- Protein 7.3 6.0 - 8.3 g/dL 01/11/2024 2:58 PM EDT [facility] 56 ALT 7(L) 10 - 35 U/L 01/11/2024 2:58 PM EDT [facility] 56- Blood Venous blood specimen / Unknown Venipuncture / Unknown 01/11/2024 2:31 PM EDT 01/11/2024 2:31 PM EDT Marquez Kolb MD LAB BLOOD ORDERA BLES [facility] [address] [place] [address] documented in this encounter Visit Diagnoses Diagnosis 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
--- OUTSIDE RECORDS SUMMARY | 2024-02-23 02:49 | External Medical Summary | Summary of Care ---
Author Name Unknown Organization [facility] Address [address] [place] [facility] [place] [address] Phone [phone] Care Team Providers Care Consultant [employer]. Vice President [employer] (Ex ) Name Role Phone Jason West MD Primary Care Provider +1- [phone] Reason for Visit * Reason Comments Outpatient Testing Encounter Details Date Type Department Care Team (Late st Contact Info) Description 01/11/2024 2:30 PM EDT Laboratory Laboratory [facility] [place] [address] [place] [address] [place], [address]en[address] [place] [address] GE junction carcinoma (HCC) Allergies Active Allergy Reactions Criticality Noted Date Comments Hydroxyzine Hcl 05/12/2012 halluzinating Cetirizine & Related 02/11/1999 HALLUCINATIONS documented as of this encounter (statuses as of 01/11/2024) Medications Medication Sig Dispensed Refills Start Date End Date Status MULTIVITAMIN/COPYWRITER AL FORMULA TABS OR 1 TABLET DAILY 0 0 12/02/2001 Active SYSTANE PRESERVATIVE FREE 0.4-0.3 % OP SOLNIndications:Ot her anterior corneal dystrophies 1 gtt OU q2h WA 1 box 6 12/03/2008 Active CALCIUM 7832-7199 MG-UNIT PO CHEW Take 1 Tablet by [...] 81 MG TBECIndications:Co ronary artery disease involving hoh coronary artery of hoh heart without angina pectoris Take 1 Tab by mouth daily. 30 Tab 11 07/17/2019 Active Loratadine 10 MG Oral Capsule Take 1 Capsule by mouth in the morning. Active Magnesium 400 MG Capsule Take 1 by mouth daily. 30 Cap 11 01/11/2020 Active acetaminophen (TYLENOL) 325 MG Tablet 2 Tablets. 04/13/2020 Active Nitroglycerin 0.4 MG Sublingual Tablet Sublingual (Nitrostat)Indicat ions:Coronary artery disease involving hoh coronary artery of hoh heart without angina pectoris,Old [place] (myocardial infarction) Place 1 Tablet under the tongue every 5 minutes as needed for Pain, Chest. 25 Tablet 5 09/03/2022 Active Insulin Pen Needle 32G X 5 MMIndications:DM type 2 causing renal disease, not at goal ([facility]) use to inject lantus twice per day 200 Each 3 03/26/2023 Active OneTouch Verio In Vitro Strip (Glucose Blood)Indications: 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 Dx E11.9 300 Strip 2 05/03/2023 Active Atorvastatin Calcium 40 MG Oral Tablet (Lipitor)Indicatio ns:Coronary artery disease involving hoh coronary artery of hoh heart without angina pectoris,Dyslipide mona TAKE 1 TABLET DAILY IN THE MORNING 90 Tablet 3 05/27/2023 Active Insulin Glargine Solostar 100 UNIT/ML Subcutaneous Solution Pen-injector (Lantus SoloStar)Indicatio ns:DM type 2 causing renal disease, not at goal ([facility]) INJECT 20 UNITS SUBCUTANEOUSLY TWICE DAILY 30 mL 2 07/08/2023 Active Digoxin 125 MCG Oral Tablet (Lanoxin)Indicatio ns:Chronic systolic heart failure (HCC),Coronary artery disease involving hoh coronary artery of hoh heart without angina pectoris Take 1 Tablet [...] as of this encounter (statuses as of 01/11/2024) Active Problems Problem Noted Date Diagnosed Date [...] Dyslipidemia 02/18/2018 Coronary artery disease invo lving hoh coronary artery of hoh heart without angina pectoris 12/10/2017 PAF (paroxysmal atrial fibrillation) 12/10/2017 Type 2 diabetes mellitus wit h hemoglobin A1c goal of less than 8.0% 09/08/2013 Overview: ICD-10 update of inactive term DJD, CERVICAL SPINE 04/12/2002 GENERAL OSTEOARTHROSIS documented as of this encounter (statuses as of 01/11/2024) Resolved Problems Problem Noted Date Diagnosed Date [...] as of this encounter (statuses as of 01/11/2024) Immunizations Name Administration Dates Next Due COVID-19 mRNA, LNP-s, No Pre serve, 2-Dose Series ([employer]) 07/23/2021,11/14/2020,10/24/2020 COVID-19, MRNA-LNP, 23-24, P F, 30 MCG/0.3 mL, 12 YRS AND ABOVE, IM ([email or web address]) 05/26/2023 Covid-19, Mrna, Lnp-s, Pf, B ivalent, [...] Care Team (Late st Contact Info) Description 01/26/2024 10:00 AM EDT Office Visit Cardiology, [facility] 132 [facility] [place] [address] Segun Cooley MD [address] [place] [address] 02/21/2024 9:30 AM EDT Office Visit Cardiology, [facility] [address] [place] [address] Aurelio [place] PAJuanyC [address] [place] [address] 03/08/2024 10:00 AM EDT Cardiac Studies Cardiology, [facility] [address] [place] [address] [address] [place] [facility] [address] [place] [address] 04/05/2024 1:00 PM EDT Office Visit [facility] [address] [place] [address] Jason West MD [address] [place], [place] [phone] Pending Results Name Type Priority Associated Diagnoses Date /Time CBC WITH WBC DIFFERENTIAL Lab STAT GE junction carcinoma (HCC) 01/11/2024 2:31 PM EDT COMPREHENSIVE METABOLIC PANEL Lab STAT GE junction carcinoma (HCC) 01/11/2024 2:31 PM EDT HEPATITIS B SURFACE ANTIBODY Lab Routine GE junction carcinoma (HCC) 01/11/2024 2:31 PM EDT HEPATITIS B SURFACE ANTIGEN Lab Routine GE junction carcinoma (HCC) 01/11/2024 2:31 PM EDT HEPATITIS B CORE ANTIBODIES IGG AND IGM Lab Routine GE junction carcinoma (HCC) 01/11/2024 2:31 PM EDT CBC Lab STAT GE junction carcinoma (HCC) 01/11/2024 2:31 PM EDT DIFFERENTIAL, AUTOMATED Lab STAT GE junction carcinoma (HCC) 01/11/2024 2:31 PM EDT Health Maintenance Due Date Last Done Comments Hepatitis C Screening 1963 COVID-19 Vaccine (2022- season) 2023 05/26/2023, 05/26/2022, 07/23/2021, Additional history exists Albumin/Creatinine Ratio 10/03/202310/02/2 023, 08/28/2021, 11/18/2020, Additional history exists CKD PHOS USE SMARTSET 49974 10/03/2023 03/0 09/2022, 03/17/2021, 08/18/2019, Additional history [...] Additional history exists CKD HGB USE SMARTSET 10526 12/16/202412/16, 12/17/2023, 03/08/2023, Additional history exists DXA [...] cardia documented in this encounter Care Teams Consultant [employer]. Vice President [employer] (Ex ) Relationship Specialty Start Date End Date Jason West MD [address] [place] [address] PCP - General 02/06/03 documented as of this encounter
--- OUTSIDE RECORDS SUMMARY | 2024-02-23 02:49 | External Medical Summary | Summary of Care ---
Author Name Unknown Organization [facility] Address [address] [facility] [address] Phone [phone] Care Team Providers Care Steam Box Tender Name Role Phone Jason West MD Primary Care Provider +1- [phone] Reason for Visit * Reason Onset Date Comments Precert Future 01/04/2024 Carbo/Taxol Encounter Details Date Type Department Care Team (Late st Contact Info) Description 01/04/2024 Telephone Hematology/Oncology [facility] Jeny [place] [address] [place] [address] Marquez Kolb MD 200 [place] [address] Precert Future (Carbo/Taxol) Allergies Active Allergy Reactions [...] WA 1 box 6 9 Active CALCIUM 9071-2152 MG-UNIT PO CHEW Take 1 Tablet by [...] 81 MG TBECIndications:C oronary artery disease involving [place] coronary artery of [place] heart without angina pectoris Take 1 Tab by mouth daily. 30 Tab 11 9 Active Loratadine 10 MG Oral Capsule Take 1 Capsule by mouth in the morning. Active Magnesium 400 MG Capsule Take 1 by mouth daily. 30 Cap 11 0 Active acetaminophen (TYLENOL) 325 MG Tablet 2 Tablets. 0 Active Nitroglycerin 0.4 MG Sublingual Tablet Sublingual (Nitrostat)Indica tions:Coronary artery disease involving [place] coronary artery of [place] heart without angina pectoris,Old [place] (myocardial infarction) [...] Oral Tablet (Lipitor)Indicati ons:Coronary artery disease involving [place] coronary artery of [place] heart without angina pectoris,Dyslipid emia TAKE 1 [...] failure (HCC),Coronary artery disease involving [place] coronary artery of [place] heart without angina pectoris Take 1 Tablet [...] Coronary artery disease invo lving [place] and [place] tribes coronary artery of [place] and [place] tribes heart without angina pectoris 12/10/2017 PAF (paroxysmal [...] mRNA, LNP-s, No Pre serve, 2-Dose Series ([employer]) 07/23/2021,11/14/2020,10/24/2020 COVID-19, MRNA-LNP, 23-24, P F, 30 [...] Miscellaneous Notes * Telephone Encounter - Zeyad Hernandez RN [...] 01/23 @ 11AM. - Lab appointment in [place] "CBCD,CMP" on Sunday 01/21. * Telephone Encounter [...] 01/26/2024 10:00 AM EDT Office Visit Cardiology, [facility] [address] [place] [address] Segun Cooley MD [address] [place] [address] 02/21/2024 9:30 AM EDT Office Visit Cardiology, [facility] [address] [place] [address] Aurelio Viera PA-C [address] [place] [address] 03/08/2024 10:00 AM EDT Cardiac Studies Cardiology, [facility] [address] [place] [address] [place], [facility]er [facility] [address] [place] [address] 04/05/2024 1:00 PM EDT Office Visit [address] [phone] Jason West MD [address] [place] [address] Pending Results Name Type Priority Associated Diagnoses Date /Time HEPATITIS B SURFACE ANTIBODY Lab Routine GE junction carcinoma (HCC) 01/11/2024 2:31 PM EDT HEPATITIS B SURFACE ANTIGEN Lab Routine GE junction carcinoma (HCC) 01/11/2024 2:31 PM EDT HEPATITIS B CORE ANTIBODIES IGG AND IGM Lab Routine GE junction carcinoma (HCC) 01/11/2024 2:31 PM EDT Scheduled Orders Name Type Priority Associated Diagnoses Orde r Schedule CBC WITH WBC DIFFERENTIAL Lab STAT GE junction carcinoma (HCC) Every Week for 8 Occurrences starting 01/04/2024 until 01/03/2025, 1 completed COMPREHENSIVE METABOLIC PANEL Lab STAT GE junction carcinoma (HCC) Every Week for 8 Occurrences starting 01/04/2024 until 01/03/2025, 1 completed HEPATITIS B SURFACE ANTIBODY Lab Routine GE junction carcinoma (HCC) Expected: 01/11/2024 (Approximate), Expires: 01/03/2025 HEPATITIS B SURFACE ANTIGEN Lab Routine GE junction carcinoma (HCC) Expected: 01/11/2024 (Approximate), Expires: 01/03/2025 HEPATITIS B CORE ANTIBODIES IGG AND IGM Lab Routine GE junction carcinoma (HCC) Expected: 01/11/2024 (Approximate), Expires: 01/03/2025 Health Maintenance Due Date Last Done Comments Hepatitis C Screening 1963 COVID-19 Vaccine ( season) 2023 05/26/2023, 05/26/2022, 07/23/2021, Additional history exists Albumin/Creatinine Ratio 10/03/2023 023, 08/28/2021, 11/18/2020, Additional history exists CKD PHOS USE SMARTSET 11839 10/03/2023 03/0 09/2022, 03/17/2021, 08/18/2019, Additional history [...] Additional history exists CKD HGB USE SMARTSET 92134 01/10/202501/10, 01/11/2024, 12/17/2023, Additional history exists DXA [...] filedocumented as of this encounter Results * (ABNORMAL) COMPREHENSIVE METABOLIC PANEL (01/11/2024 2:31 PM EDT) BUN 15 6 - 20 mg/dL 01/11/2024 2:58 PM EDT [facility] 56- Creatinine 0.8 0.5 - 1.0 mg/dL 01/11/2024 2:58 PM EDT [facility] 56- Estimated Glomerular Filtration Rate 73 >=60 mL/min 01/11/2024 2:58 PM EDT [facility] 56- Comment:eGFR is calculated b ased on the CKD-EPI 2020 equation Sodium 142 135 - 146 mmol/L 01/11/2024 2:58 PM EDT [facility] 56- Potassium 4.6 3.5 - 5.1 mmol/L 01/11/2024 2:58 PM EDT [facility] 56- Chloride 104 98 - 107 mmol/L 01/11/2024 2:58 PM EDT [facility] [place] 56- CO2 27 22 - 32 mmol/L 01/11/2024 2:58 PM EDT [facility] 56- Anion Gap 11 7 - 15 mmol/L 01/11/2024 2:58 PM EDT [facility] 56- Glucose 92 70 - 120 mg/dL 01/11/2024 2:58 PM EDT [facility] [place] 56- Albumin 3.6(L) 3.8 - 5.0 g/dL 01/11/2024 2:58 PM EDT [facility] [place] 56- AST 21 10 - 35 U/L 01/11/2024 2:58 PM EDT [facility] 56- Alkaline Phosphatase 90 35 - 130 U/L 01/11/2024 2:58 PM EDT [facility] 56- Bilirubin, Total 0.5 <=1.2 mg/dL 01/11/2024 2:58 PM EDT [facility] [place] 56- Calcium 9.4 8.4 - 10.2 mg/dL 01/11/2024 2:58 PM EDT [facility] 56- Protein 7.3 6.0 - 8.3 g/dL 01/11/2024 2:58 PM EDT [facility] 56- ALT 7(L) 10 - 35 U/L 01/11/2024 2:58 PM EDT [facility] 56 Blood Venous blood specimen / Unknown Venipuncture / Unknown 01/11/2024 2:31 PM EDT 01/11/2024 2:31 PM EDT Marquez Kolb MD LAB BLOOD ORDERA BLES [facility] [address] [place] [address] documented in this encounter Visit Diagnoses Diagnosis 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
--- OUTSIDE RECORDS SUMMARY | 2024-02-23 02:49 | External Medical Summary | Summary of Care ---
Author Name Unknown Organization [facility] Address [address] [facility] [address] Phone [phone] Care Team Providers Care Reel Worker Name Role Phone Jason West MD Primary Care Provider +1- [phone] Reason for Visit * Reason Comments Education Chemo Ed - Carbo/Tax ol Encounter Details Date Type Department Care Team (Late st Contact Info) Description 01/11/2024 1:45 PM EDT Nurse Only Hematology/Oncology [facility] [place]y [place] [address] [place] [phone] [place], Nurse Hem Onc [facility] 200 [facility] [place] [address] Education (Chemo Ed - Carbo/Taxol) Allergies Active Allergy Reactions Criticality Noted Date Comments Hydroxyzine Hcl 05/12/2012 halluzinating Cetirizine & Related 02/11/1999 HALLUCINATIONS documented as of this encounter (statuses as of 01/11/2024) Medications Medication Sig Dispensed Refills Start Date End Date Status MULTIVITAMIN/CONCRETE POURER AL FORMULA TABS OR 1 TABLET DAILY 0 0 12/02/2001 Active SYSTANE PRESERVATIVE FREE 0.4-0.3 % OP SOLNIndications:Ot her anterior corneal dystrophies 1 gtt OU q2h [place] 1 box 6 12/03/2008 Active CALCIUM 9883-4459 MG-UNIT PO CHEW Take 1 Tablet by mouth in the morning. Active Cinnamon 500 MG Capsule Take 2 Capsules by mouth in the morning. Active ONETOUCH ULTRASOFT LANCETS MISCIndications:DM type 2 causing renal disease ([facility]) Use as directed daily. Use up to four times a day as directed. Dx E11.9 3 Box Dosing Unit 3 09/13/2018 Active aspirin enteric coated 81 MG TBECIndications:Co ronary artery disease involving [place] coronary artery of [place] heart without angina pectoris Take 1 Tab by mouth daily. 30 Tab 11 07/17/2019 Active Loratadine 10 MG Oral Capsule Take 1 Capsule by mouth in the morning. Active Magnesium 400 MG Capsule Take 1 by mouth daily. 30 Cap 11 01/11/2020 Active acetaminophen (TYLENOL) 325 MG Tablet 2 Tablets. 04/13/2020 Active Nitroglycerin 0.4 MG Sublingual Tablet Sublingual (Nitrostat)Indicat ions:Coronary artery disease involving [place] coronary artery of [place] heart without angina pectoris,Old [place] (myocardial infarction) Place 1 Tablet under the tongue every 5 minutes as needed for Pain, Chest. 25 Tablet 5 09/03/2022 Active Insulin Pen Needle 32G X 5 MMIndications:DM type 2 causing renal disease, not at goal ([facility]) use to inject lantus twice per day 200 Each 3 03/26/2023 Active OneTouch Verio In Vitro Strip (Glucose Blood)Indications: DM type 2 causing renal disease ([facility]) Check blood sugars one time daily. Dx E11.9 300 Strip 2 05/03/2023 Active Atorvastatin Calcium 40 MG Oral Tablet (Lipitor)Indicatio ns:Coronary artery disease involving [place] coronary artery of [place] heart without angina pectoris,Dyslipide mona TAKE 1 TABLET DAILY IN THE MORNING 90 Tablet 3 05/27/2023 Active Insulin Glargine Solostar 100 UNIT/ML Subcutaneous Solution Pen-injector (Lantus SoloStar)Indicatio ns:DM type 2 causing renal disease, not at goal ([facility]) INJECT 20 UNITS SUBCUTANEOUSLY TWICE DAILY 30 mL 2 07/08/2023 Active Digoxin 125 MCG Oral Tablet (Lanoxin)Indicatio ns:Chronic systolic heart failure (HCC),Coronary artery disease involving [place] coronary artery of [place] heart without angina pectoris Take 1 Tablet [...] Date Diagnosed Date Encounter for antineoplastic chemotherapy 06/04/ 2024 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 documented in this encounter Plan of Treatment Upcoming Encounters Date Type Department Care Team (Late st Contact Info) Description 01/26/2024 10:00 AM EDT Office Visit Cardiology, [facility] [address] [place] [address] Segun Cooley MD [address] [place] [address] 02/21/2024 9:30 AM EDT Office Visit Cardiology, [facility] [address] [place] [address] Aurelio Viera PA-C [address] [place] [address] 03/08/2024 10:00 AM EDT Cardiac Studies Cardiology, [facility] [address] [place] [address] [facility] [address] [place] [address] 04/05/2024 1:00 PM EDT Office Visit [facility] [address] [place] [phone] Jason West MD [address] [place] [address] Health Maintenance Due Date Last Done Comments Hepatitis C Screening 1963 COVID-19 Vaccine ( season) 2023 05/26/2023, 05/26/2022, 07/23/2021, Additional history exists Albumin/Creatinine Ratio 10/03/2023 023, 08/28/2021, 11/18/2020, Additional history exists CKD PHOS USE SMARTSET 06247 10/03/2023 03/0 09/2022, 03/17/2021, 08/18/2019, Additional history [...] Additional history exists CKD HGB USE SMARTSET 03601 12/16/202412/16, 12/17/2023, 03/08/2023, Additional history exists DXA [...] filedocumented as of this encounter Care Teams Reel Worker Relationship Specialty Start Date End Date Jason West MD [address] [facility] [place] [address] PCP - General 02/06/03 documented as of this encounter
--- OUTSIDE RECORDS SUMMARY | 2024-02-23 02:49 | External Medical Summary | Summary of Care ---
Author Name Unknown Organization [facility] Address [address] [place] [address] Phone [phone] Care Team Providers Care Vascular Surgery Physician Name Role Phone Jason West MD Primary Care Provider +1- [phone] Reason for Visit * Reason Onset Date Comments Appointment 01/12/2024 [place] Encounter Details Date Type Department Care Team (Late st Contact Info) Description 01/12/2024 Telephone Access Center, [place] [address] [facility] *DO NOT REMOVE THIS DEPARTMENT* [place] [address] Services, Scheduling [address] [place] [address] Appointment ([place]) Allergies Active Allergy Reactions Criticality Noted Date Comments Hydroxyzine Hcl 05/12/2012 halluzinating Cetirizine & Related 02/11/1999 HALLUCINATIONS documented as of this encounter (statuses as of 01/14/2024) Medications Medication Sig Dispensed Refills Start Date End Date Status MULTIVITAMIN/SLP AL FORMULA TABS OR 1 TABLET DAILY 0 0 12/02/2001 Active SYSTANE PRESERVATIVE FREE 0.4-0.3 % OP SOLNIndications:Ot her anterior corneal dystrophies 1 gtt OU q2h WA 1 box 6 12/03/2008 Active CALCIUM 7671-0012 MG-UNIT PO CHEW Take 1 Tablet by [...] 81 MG TBECIndications:Co ronary artery disease involving [place] coronary artery of [place] heart without angina pectoris Take 1 Tab by mouth daily. 30 Tab 11 07/17/2019 Active Loratadine 10 MG Oral Capsule Take 1 Capsule by mouth in the morning. Active Magnesium 400 MG Capsule Take 1 by mouth daily. 30 Cap 11 01/11/2020 Active acetaminophen (TYLENOL) 325 MG Tablet 2 Tablets. 04/13/2020 Active Nitroglycerin 0.4 MG Sublingual Tablet Sublingual (Nitrostat)Indicat ions:Coronary artery disease involving [place] coronary artery of [place] heart without angina pectoris,Old [place] (myocardial infarction) [...] Oral Tablet (Lipitor)Indicatio ns:Coronary artery disease involving [place] coronary artery of [place] heart without angina pectoris,Dyslipide mona TAKE 1 TABLET DAILY IN THE MORNING 90 Tablet 3 05/27/2023 Active Insulin Glargine Solostar 100 UNIT/ML Subcutaneous Solution Pen-injector (Lantus SoloStar)Indicatio ns:DM type 2 causing renal disease, 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) INJECT 20 UNITS SUBCUTANEOUSLY TWICE DAILY 30 mL 2 07/08/2023 Active Digoxin 125 MCG Oral Tablet (Lanoxin)Indicatio ns:Chronic systolic heart failure (HCC),Coronary artery disease involving [place] coronary artery of [place] heart without angina pectoris Take 1 Tablet [...] Dyslipidemia 02/18/2018 Coronary artery disease invo lving [place] coronary artery of [place] heart without angina pectoris 12/10/2017 PAF (paroxysmal [...] mRNA, LNP-s, No Pre serve, 2-Dose Series ([employer]) 07/23/2021,11/14/2020,10/24/2020 COVID-19, MRNA-LNP, 23-24, P F, 30 MCG/0.3 mL, 12 YRS AND ABOVE, IM ([employer]) 05/26/2023 Covid-19, Mrna, Lnp-s, [...] back in town * Telephone Encounter - aSba Sevilla OSA - 01/12/2024 9:26 AM EDT [...] 10:00 AM EDT Hem/Onc Treatment Hematology/Oncology Treatment, [place] [address] [place] [address] Jeny, Chair 4 Hem Onc [place] [address] [place] [address] 01/22/2024 10:00 AM EDT Laboratory Laboratory, [facility] 132 [facility] [place] [phone] [place] 132 [facility] [place] [address] 01/24/2024 11:00 AM EDT Hem/Onc Treatment Hematology/Oncology Treatment, [place] [address] [place] [address] Jeny, Chair 6 Hem Onc [place] [address] [place], [place] [address] 03/08/2024 10:00 AM EDT Cardiac Studies Cardiology, [facility] 132 [facility] [address] [place] [facility] 132 [facility] [place] [address] 04/05/2024 1:00 PM EDT Office Visit [facility] [address] [place] [address] Jason West MD [address] [place] [address] Health Maintenance Due Date Last Done Comments Hepatitis C Screening 1963 COVID-19 Vaccine ( season) 2023 05/26/2023, 05/26/2022, 07/23/2021, Additional history exists Albumin/Creatinine Ratio 10/03/2023 023, 08/28/2021, 11/18/2020, Additional history exists CKD PHOS USE SMARTSET 00645 10/03/2023 030 09/2022, 03/17/2021, 08/18/2019, Additional history exists Depression Monitoring 12/03/2023 12/02/2022 DIG LEVEL FOR MEDICATION MONITORING YEARLY 03/08/2024 03/08/2023, 10/02/2022, 07/29/2021 HbA1c 06/18/2024 12/17/2023, 0801/2023, 10/02/2022, Additional history exists GFR 07/12/2024 01/11/2024, 11/30, 03/08/2023, Additional history exists Diabetic Eye Exam 11/01/2024 11/02/2023, , 04/07/2019, Additional history exists Diabetic Foot Exam 11/01/2024 11/02/2023, 0 03/17/2021, 12/27/2019, Additional history exists CKD HGB USE SMARTSET 52598 01/10/202501/10, 01/11/2024, 12/17/2023, Additional history exists DXA [...] filedocumented as of this encounter Care Teams Vascular Surgery Physician Relationship Specialty Start Date End Date Jason West MD [address] [place] [address] PCP - General 02/06/03 documented as of this encounter
--- OUTSIDE RECORDS SUMMARY | 2024-02-23 02:49 | External Medical Summary | Summary of Care ---
Author Name Unknown Organization [facility] Address [address] [place] [address] Phone [phone] Care Team Providers Care Activities Assistant Name Role Phone Jason West MD Primary Care Provider +1- [phone] Reason for Visit * Reason Onset Date Comments Appointment 01/12/2024 [place] Encounter Details Date Type Department Care Team (Late st Contact Info) Description 01/12/2024 Telephone Access Center, [place] [address] [facility] *DO NOT REMOVE THIS DEPARTMENT* [place] [address] Services, Scheduling [address] [place] [address] Appointment ([place]) Allergies Active Allergy Reactions Criticality Noted Date Comments Hydroxyzine Hcl 05/12/2012 halluzinating Cetirizine & Related 02/11/1999 HALLUCINATIONS documented as of this encounter (statuses as of 01/14/2024) Medications Medication Sig Dispensed Refills Start Date End Date Status MULTIVITAMIN/NAVAL DESIGNER AL FORMULA TABS OR 1 TABLET DAILY 0 0 12/02/2001 Active SYSTANE PRESERVATIVE FREE 0.4-0.3 % OP SOLNIndications:Ot her anterior corneal dystrophies 1 gtt OU q2h WA 1 box 6 12/03/2008 Active CALCIUM 7427-1950 MG-UNIT PO CHEW Take 1 Tablet by [...] [place] heart without angina pectoris,Old [place] (myocardial infarction) Place 1 Tablet under the tongue every 5 minutes as needed for Pain, Chest. 25 Tablet 5 09/03/2022 Active Insulin Pen Needle 32G X 5 MMIndications:DM type 2 causing renal disease, not at goal ([facility]) use to inject lantus twice per [...] mRNA, LNP-s, No Pre serve, 2-Dose Series ([employer]) 07/23/2021,11/14/2020,10/24/2020 COVID-19, MRNA-LNP, 23-24, P F, 30 MCG/0.3 mL, 12 YRS AND ABOVE, IM ([employer]) 05/26/2023 Covid-19, Mrna, Lnp-s, Pf, B ivalent, [...] having radiation treatment on Mondays at the [facility] and they told her she should have her radiation treatment and then go to [facility] for chemo treatment and she wanted to relay this information. Please contact Ciara at [phone]. Thank you. * Telephone Encounter - Saba [...] 10:00 AM EDT Hem/Onc Treatment Hematology/Oncology Treatment, [place] 200 [place] [phone] Jeny, Chair 4 Hem Onc [place] 200 [facility] [place] [address] 01/22/2024 10:00 AM EDT Laboratory Laboratory, [facility] [phone] [facility] [address] 01/24/2024 11:00 AM EDT Hem/Onc Treatment Hematology/Oncology Treatment, [place] 200 [facility], [place] [phone] Jeny, Chair 6 Hem Onc [facility] 200 [facility] [place] [address] 03/08/2024 10:00 AM EDT Cardiac Studies Cardiology, [facility] 132 [facility] [address] [place], Pacer Clinic [facility] 132 [facility] [address] 04/05/2024 1:00 PM EDT Office Visit [facility] [address] [place] [address] Jason West MD [address] [place] [address] Health Maintenance Due Date Last Done Comments Hepatitis C Screening 1963 COVID-19 Vaccine ( season) 2023 05/26/2023, 05/26/2022, 07/23/2021, Additional history exists Albumin/Creatinine Ratio 10/03/20232 023, 08/28/2021, 11/18/2020, Additional history exists CKD PHOS USE SMARTSET 51729 10/03/2023 03/0 09/2022, 03/17/2021, 08/18/2019, Additional history [...] Additional history exists CKD HGB USE SMARTSET 65068 01/10/202501/10, 01/11/2024, 12/17/2023, Additional history exists DXA [...] filedocumented as of this encounter Care Teams Activities Assistant Relationship Specialty Start Date End Date Jason West MD [address] [facility] [place] [address] PCP - General 02/06/03 documented as of this encounter
--- OUTSIDE RECORDS SUMMARY | 2024-02-23 02:49 | External Medical Summary | Summary of Care ---
Author Name Unknown Organization [facility] Address [address] [facility] [address] Phone [phone] Care Team Providers Care Quality Measurement Specialist Name Role Phone Jason West MD Primary Care Provider +1- [phone] Reason for Visit * Reason Onset Date Comments Precert Future 01/04/2024 Carbo/Taxol Encounter Details Date Type Department Care Team (Late st Contact Info) Description 01/04/2024 Telephone Hematology/Oncology [facility] Jeny [place] [address] [place] [address] Marquez Kolb MD 200 [facility] [place] [facility] [place] [address] Precert Future (Carbo/Taxol) Allergies Active Allergy Reactions [...] WA 1 box 6 9 Active CALCIUM 5656-7433 MG-UNIT PO CHEW Take 1 Tablet by [...] [place] heart without angina pectoris,Old [place] (myocardial infarction) [...] mRNA, LNP-s, No Pre serve, 2-Dose Series ([employer]) 07/23/2021,11/14/2020,10/24/2020 COVID-19, MRNA-LNP, 23-24, P F, 30 [...] 01/26/2024 10:00 AM EDT Office Visit Cardiology, [facility] [address] [place] [address] Segun Cooley MD [address] [place] [address] 02/21/2024 9:30 AM EDT Office Visit Cardiology, [facility] [address] [place] [address] Aurelio Viera, PAJuanyC [address] [place] [address] 03/08/2024 10:00 AM EDT Cardiac Studies Cardiology, [facility] [address] [place] [address] [place], Pacer Clinic [facility] [address] [place] [address] 04/05/2024 1:00 PM EDT Office Visit [facility] [address] [place] [phone] Jason West MD [address] [place] [address] Pending Results Name Type Priority Associated Diagnoses [...] Week for 8 Occurrences starting 01/04/2024 until 01/03/2025 COMPREHENSIVE METABOLIC PANEL Lab STAT GE junction carcinoma (HCC) Every Week for 8 Occurrences starting 01/04/2024 until 01/03/2025 HEPATITIS B SURFACE ANTIBODY Lab Routine GE [...] Additional history exists CKD PHOS USE SMARTSET 73791 10/03/2023 03/0 09/2022, 03/17/2021, 08/18/2019, Additional history [...] Additional history exists CKD HGB USE SMARTSET 45049 12/16/202412/16, 12/17/2023, 03/08/2023, Additional history exists DXA [...] cardia documented in this encounter Care Teams Quality Measurement Specialist Relationship Specialty Start Date End Date Jason West MD [address] [place] [address] PCP - General 02/06/03 documented as of this encounter
--- OUTSIDE RECORDS SUMMARY | 2024-02-23 02:50 | External Medical Summary | Summary of Care ---
Author Name Unknown Organization [facility] Address [address] [place] [address] Phone [phone] Care Team Providers Care Block Sorter Name Role Phone Jason West MD Primary Care Provider +1- [phone] Encounter Details Date Type Department Care Team (Late st Contact Info) Description 01/04/2024 Orders Only Hematology/Oncology, [facility] [address] [place] [address] Marquez Kolb MD [address] [place] [address] Allergies Active Allergy Reactions Criticality Noted Date Comments Hydroxyzine Hcl 05/12/2012 halluzinating Cetirizine & Related 02/11/1999 HALLUCINATIONS documented as of this encounter (statuses as of 01/04/2024) Medications Medication Sig Dispensed Refills Start Date End Date Status MULTIVITAMIN/SUPERVISOR MECHANIC BOILERMAKING AL FORMULA TABS OR 1 TABLET DAILY 0 0 12/02/2001 Active SYSTANE PRESERVATIVE FREE 0.4-0.3 % OP SOLNIndications:Ot her anterior corneal dystrophies 1 gtt OU q2h WA 1 box 6 12/03/2008 Active CALCIUM 2738-3864 MG-UNIT PO CHEW Take 1 Tablet by [...] 81 MG TBECIndications:Co ronary artery disease involving [place] coronary artery of [place] heart without angina pectoris Take 1 Tab by mouth daily. 30 Tab 11 07/17/2019 Active Loratadine 10 MG Oral Capsule Take 1 Capsule by mouth in the morning. Active Magnesium 400 MG Capsule Take 1 by mouth daily. 30 Cap 11 01/11/2020 Active acetaminophen (TYLENOL) 325 MG Tablet 2 Tablets. 04/13/2020 Active Nitroglycerin 0.4 MG Sublingual Tablet Sublingual (Nitrostat)Indicat ions:Coronary artery disease involving [place] coronary artery of [place] heart without angina pectoris,Old [place] (myocardial infarction) [...] Oral Tablet (Lipitor)Indicatio ns:Coronary artery disease involving [place] coronary artery of [place] heart without angina pectoris,Dyslipide mona TAKE 1 [...] systolic heart failure (HCC),Coronary artery disease involving [place] coronary artery of [place] heart without angina pectoris Take 1 Tablet [...] before bedtime. 180 Tablet 3 12/28/2023 Active Midodrine HCl 2.5 MG Oral Tablet (Proamatine) Take 1 Tablet by mouth in the morning and 1 Tablet at noon and 1 Tablet before bedtime. 12/25/2023 Active pantoprazole 40 mg in 100 mL NSS Administer 100 mL intravenously in the morning. Active Ondansetron HCl 8 MG Oral TabletIndications: [...] hours before chemotherapy 40 Tablet 01/04/2024 Active documented as of this encounter (statuses as of 01/04/2024) Active Problems Problem Noted Date Diagnosed Date [...] Dyslipidemia 02/18/2018 Coronary artery disease invo lving [place] coronary artery of [place] heart without angina pectoris 12/10/2017 PAF (paroxysmal atrial fibrillation) 12/10/2017 Type 2 diabetes mellitus wit h hemoglobin A1c goal of less than 8.0% 09/08/2013 Overview: ICD-10 update of inactive term DJD, CERVICAL SPINE 04/12/2002 GENERAL OSTEOARTHROSIS documented as of this encounter (statuses as of 01/04/2024) Resolved Problems Problem Noted Date Diagnosed Date [...] as of this encounter (statuses as of 01/04/2024) Immunizations Name Administration Dates Next Due COVID-19 mRNA, LNP-s, No Pre serve, 2-Dose Series ([employer]) 07/23/2021,11/14/2020,10/24/2020 COVID-19, MRNA-LNP, 23-24, P F, 30 MCG/0.3 mL, 12 YRS AND ABOVE, IM ([employer]) 05/26/2023 Covid-19, Mrna, Lnp-s, Pf, B ivalent, 30 Mcg, IM, 12 yrs and above ([employer]) 05/26/2022 Pneumococcal Conjugate Vacc, 13 Valent (Prevnar) [...] Care Team (Late st Contact Info) Description 01/05/2024 11:20 AM EDT Office Visit [facility] [address] [place] [address] Jason West MD [address] [facility] [place] [address] 01/11/2024 1:45 PM EDT Nurse Only Hematology/Oncology [facility] [address] [place] [phone] Jeny, Nurse Hem Onc [facility] 200 [facility] [address] 01/26/2024 10:00 AM EDT Office Visit Cardiology, [facility] [address] [facility] [place] [address] Segun Cooley MD [address] [place] [address] 02/21/2024 9:30 AM EDT Office Visit Cardiology, [facility] [address] [place] [address] Aurelio Viera PA-C [address] [place] [address] 03/08/2024 10:00 AM EDT Cardiac Studies Cardiology, [facility] [address] [place] [address] [facility] [address] [place] [address] 04/05/2024 1:00 PM EDT Office Visit Family [facility] [address] [place] [facility] [place] [phone] Jason West MD [address] [place] [address] Health Maintenance Due Date Last Done Comments Hepatitis C Screening 1963 COVID-19 Vaccine (2022-24 season) 2023 05/26/2023, 05/26/2022, 07/23/2021, Additional history exists Albumin/Creatinine Ratio 10/03/2023 023, 08/28/2021, 11/18/2020, Additional history exists CKD PHOS USE SMARTSET 88696 10/03/2023 03/0 09/2022, 03/17/2021, 08/18/2019, Additional history exists DIG LEVEL FOR MEDICATION MONITORING YEARLY 03/08/2024 03/08/2023, 10/02/2022, 07/29/2021 GFR 06/18/2024 12/17/2023, 08/0 01/2023, 10/02/2022, Additional history exists HbA1c 06/18/2024 12/17/2023, 08/0 01/2023, 10/02/2022, Additional history exists Diabetic Eye Exam 11/01/2024 11/02/2023, , 04/07/2019, Additional history exists Diabetic Foot Exam 11/01/2024 11/02/2023, 0 03/17/2021, 12/27/2019, Additional history exists CKD HGB USE SMARTSET 98654 12/16/202412/16, 12/17/2023, 03/08/2023, Additional history exists DXA [...] filedocumented as of this encounter Care Teams Block Sorter Relationship Specialty Start Date End Date Jason West MD [address] [place] [facility] [place] [address] PCP - General 02/06/03 documented as of this encounter
--- OUTSIDE RECORDS SUMMARY | 2024-02-23 02:50 | External Medical Summary | Summary of Care ---
Author Name Unknown Organization [facility] Address [address] [facility] [address] Phone [phone] Care Team Providers Care Credit Operations Specialist Name Role Phone Jason West MD Primary Care Provider +1- [phone] Encounter Details Date Type Department Care Team (Late st Contact Info) Description 12/24/2023 Telephone Cardiology, [facility] [address] [place] [address] Nimo Sewell CRNP [address] [place] [address] Allergies Active Allergy Reactions Criticality Noted Date Comments Hydroxyzine Hcl 05/12/2012 halluzinating Cetirizine & Related 02/11/1999 HALLUCINATIONS documented as of this encounter (statuses as of 01/07/2024) Medications Medication Sig Dispensed Refills Start Date End Date Status MULTIVITAMIN/MINE RAL FORMULA TABS OR 1 TABLET DAILY 0 0 2 Active SYSTANE PRESERVATIVE FREE 0.4-0.3 % OP SOLNIndications:O ther anterior corneal dystrophies 1 gtt OU q2h WA 1 box 6 9 Active CALCIUM 9764-6108 MG-UNIT PO CHEW Take 1 Tablet by [...] 81 MG TBECIndications:C oronary artery disease involving [place] coronary artery of [place] heart without angina pectoris Take 1 Tab by mouth daily. 30 Tab 11 9 Active Loratadine 10 MG Oral Capsule Take 1 Capsule by mouth in the morning. Active Magnesium 400 MG Capsule Take 1 by mouth daily. 30 Cap 11 0 Active acetaminophen (TYLENOL) 325 MG Tablet 2 Tablets. 0 Active Nitroglycerin 0.4 MG Sublingual Tablet Sublingual (Nitrostat)Indica tions:Coronary artery disease involving [place] coronary artery of [place] heart without angina pectoris,Old [place] (myocardial infarction) [...] Oral Tablet (Lipitor)Indicati ons:Coronary artery disease involving [place] coronary artery of [place] heart without angina pectoris,Dyslipid emia TAKE 1 [...] systolic heart failure (HCC),Coronary artery disease involving [place] coronary artery of [place] heart without angina pectoris Take 1 Tablet by mouth at bedtime. 90 Tablet 3 01/02/202 4 Active oxyBUTYnin Chloride 5 MG Oral [...] 120 mL 1 4 01/14/20 24 Active Apixaban 5 MG Oral Tablet (Eliquis)Indicati ons:PAF (paroxysmal atrial fibrillation) (HCC) Take 1 Tablet by mouth in the morning and 1 Tablet before bedtime. 180 Tablet 3 3 12/28/19 24 Discontinu ed(Dischar ged) Midodrine HCl 5 MG Oral Tablet (Proamatine)Indic ations:Chronic systolic heart failure (HCC),Coronary artery disease involving [place] coronary artery of [place] heart without angina pectoris TAKE 1 TAB BY MOUTH SHORTLY BEFORE OR UPON RISING IN THE MORNING, AT MIDDAY, AND IN THE LATE AFTERNOON (NO LATER THAN 6PM) 270 Tablet 3 3 12/28/19 24 Discontinu ed(Ana lin) documented as of this encounter (statuses as of 01/07/2024) Active Problems Problem Noted Date Diagnosed Date [...] Dyslipidemia 02/18/2018 Coronary artery disease invo lving [place] coronary artery of [place] heart without angina pectoris 12/10/2017 PAF (paroxysmal atrial fibrillation) 12/10/2017 Type 2 diabetes mellitus wit h hemoglobin A1c goal of less than 8.0% 09/08/2013 Overview: ICD-10 update of inactive term DJD, CERVICAL SPINE 04/12/2002 GENERAL OSTEOARTHROSIS documented as of this encounter (statuses as of 01/07/2024) Resolved Problems Problem Noted Date Diagnosed Date [...] as of this encounter (statuses as of 01/07/2024) Immunizations Name Administration Dates Next Due COVID-19 mRNA, LNP-s, No Pre serve, 2-Dose Series ([employer]) 07/23/2021,11/14/2020,10/24/2020 COVID-19, MRNA-LNP, 23-24, P F, 30 MCG/0.3 mL, 12 YRS AND ABOVE, IM ([employer]-Comirnaty) 05/26/2023 Covid-19, Mrna, Lnp-s, Pf, B ivalent, [...] Telephone Encounter - Zeyad White OSA - 12/29/2023 11:50 AM EDT Called patient, LM that I scheduled her with Dr. Cooley, on: Wednesday Arrive by 9:45 AM Appt at 10:00 AM (30 min) Also sent letter on 12/29/23 * Telephone Encounter - Nimo Sewell CRNP - 12/24/2023 5:39 PM EDT Need for hospital discharge follow up within the next 2-4 weeks. 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 Jairo remains on hold with on ASA 81mg therapy per GI recommendation. Typically sees Aurelio Viera PA-C Labs one week post discharge documented in this encounter Plan of Treatment Upcoming Encounters Date Type Department Care Team (Late st Contact Info) Description 01/11/2024 1:45 PM EDT Nurse Only Hematology/Oncology [facility] [address] [place] [phone] Jeny, Nurse Hem Onc [facility] [address] [facility] [place] [address] 01/26/2024 10:00 AM EDT Office Visit Cardiology, [facility] [address] [place] [address] Segun Cooley MD [address] [place] [address] 02/21/2024 9:30 AM EDT Office Visit Cardiology, [facility] [address] [place] [address] Aurelio Viera PA-C [address] [place] [address] 03/08/2024 10:00 AM EDT Cardiac Studies Cardiology, [facility] [address] [place] [address] [facility] [address] [place] [address] 04/05/2024 1:00 PM EDT [address] [address] Jason West MD [address] [place] [address] Scheduled Orders Name Type Priority Associated Diagnoses Orde r Schedule CBC Lab Routine Hospital discharge follow-up Gastrointestinal hemorrhage with melena Expected: 12/24/2023, Expires: 12/23/2024 Health Maintenance Due Date Last Done Comments Hepatitis C Screening 1963 COVID-19 Vaccine ( season) 2023 05/26/2023, 05/26/2022, 07/23/2021, Additional history exists Albumin/Creatinine Ratio 10/03/2023 023, 08/28/2021, 11/18/2020, Additional history exists CKD PHOS USE SMARTSET 79535 10/03/2023 03/0 09/2022, 03/17/2021, 08/18/2019, Additional history exists DIG LEVEL FOR MEDICATION MONITORING YEARLY 03/08/2024 03/08/2023, 10/02/2022, 07/29/2021 GFR 06/18/2024 12/17/2023, 08/0 01/2023, 10/02/2022, Additional history exists HbA1c 06/18/2024 12/17/2023, 08/0 01/2023, 10/02/2022, Additional history exists Diabetic Eye Exam 11/01/2024 11/02/2023, , 04/07/2019, Additional history exists Diabetic Foot Exam 11/01/2024 11/02/2023, 0 03/17/2021, 12/27/2019, Additional history exists CKD HGB USE SMARTSET 74291 12/16/202412/16, 12/17/2023, 03/08/2023, Additional history exists DXA [...] this encounter Visit Diagnoses Diagnosis Hospital discharge follow-up- Primary Other follow-up examination Gastrointestinal hemorrhage with melena documented in this encounter Care Teams Credit Operations Specialist Relationship Specialty Start Date End Date Jason West MD [address] [place] [address] PCP - General 02/06/03 documented as of this encounter
--- OUTSIDE RECORDS SUMMARY | 2024-02-23 02:50 | External Medical Summary | Summary of Care ---
Author Name Unknown Organization [facility] Address [address] [facility] [address] Phone [phone] Care Team Providers Care Taping Foreman Name Role Phone Jason West MD Primary Care Provider +1- [phone] Reason for Visit * Reason Onset Date Comments Precert Future 01/04/2024 Carbo/Taxol Encounter Details Date Type Department Care Team (Late st Contact Info) Description 01/04/2024 Telephone Hematology/Oncology [facility] Jen[place] [address] [place] [address] Marquez Kolb MD [address] [place] [address] Precert Future (Carbo/Taxol) Allergies Active Allergy Reactions Criticality Noted Date Comments Hydroxyzine Hcl 05/12/2012 halluzinating Cetirizine & Related 02/11/1999 HALLUCINATIONS documented as of this encounter (statuses as of 01/06/2024) Medications Medication Sig Dispensed Refills Start Date End Date Status MULTIVITAMIN/PROTOTYPE DEICER ASSEMBLER AL FORMULA TABS OR 1 TABLET DAILY 0 0 12/02/2001 Active SYSTANE PRESERVATIVE FREE 0.4-0.3 % OP SOLNIndications:Ot her anterior corneal dystrophies 1 gtt OU q2h WA 1 box 6 12/03/2008 Active CALCIUM 5628-0454 MG-UNIT PO CHEW Take 1 Tablet by [...] MG TBECIndications:Co ronary artery disease involving [place] coronary artery of [place] heart without angina pectoris Take 1 Tab [...] Sublingual (Nitrostat)Indicat ions:Coronary artery disease involving [place] coronary artery of [place] heart without angina pectoris,Old CT (myocardial infarction) [...] Tablet (Lipitor)Indicatio ns:Coronary artery disease involving [place] coronary artery of [place] heart without angina pectoris,Dyslipide mona TAKE 1 TABLET DAILY IN THE MORNING 90 Tablet 3 05/27/2023 Active Insulin Glargine Solostar 100 UNIT/ML Subcutaneous Solution Pen-injector (Lantus SoloStar)Indicatio ns:DM type 2 causing renal disease, not at goal ([facility]) INJECT 20 UNITS SUBCUTANEOUSLY TWICE DAILY 30 mL 2 07/08/2023 Active Digoxin 125 MCG Oral Tablet (Lanoxin)Indicatio ns:Chronic systolic heart failure (HCC),Coronary artery disease involving [place] coronary artery of [place] heart without angina pectoris Take 1 Tablet [...] as of this encounter (statuses as of 01/06/2024) Active Problems Problem Noted Date Diagnosed Date [...] 02/18/2018 Coronary artery disease invo lving [place] coronary artery of [place] heart without angina pectoris 12/10/2017 PAF (paroxysmal atrial fibrillation) 12/10/2017 Type 2 diabetes mellitus wit h hemoglobin A1c goal of less than 8.0% 09/08/2013 Overview: ICD-10 update of inactive term DJD, CERVICAL SPINE 04/12/2002 GENERAL OSTEOARTHROSIS documented as of this encounter (statuses as of 01/06/2024) Resolved Problems Problem Noted Date Diagnosed Date [...] as of this encounter (statuses as of 01/06/2024) Immunizations Name Administration Dates Next Due COVID-19 mRNA, LNP-s, No Pre serve, 2-Dose Series ([employer]) 07/23/2021,11/14/2020,10/24/2020 COVID-19, MRNA-LNP, 23-24, P F, 30 MCG/0.3 mL, 12 YRS AND ABOVE, IM ([employer]-Comirnat) 05/26/2023 Covid-19, Mrna, Lnp-s, Pf, B ivalent, [...] 01/11/2024 1:45 PM EDT Nurse Only Hematology/Oncology [facility] [address] [facility] [place] [phone] Jeny, Nurse Hem Onc [facility] [address] [facility] [place] [address] 01/26/2024 10:00 AM EDT Office Visit [facility] [address] [place] [address] Segun Cooley MD [address] [place] [address] 02/21/2024 9:30 AM EDT Office Visit [facility] [address] [place] [address] Aurelio Viera PA-C [address] [place] [address] 03/08/2024 10:00 AM EDT Cardiac Studies Cardiology [facility] [address] [place] [address] [facility] [address] [place] [address] 04/05/2024 1:00 PM EDT Office Visit [facility] [address] [place] [phone] Jason West MD [address] [place] [address] Scheduled Orders Name Type Priority Associated Diagnoses [...] 05/26/2022, 07/23/2021, Additional history exists Albumin/Creatinine Ratio 10/03/2023/03/2 023, 08/28/2021, 11/18/2020, Additional history exists CKD PHOS USE SMARTSET 62782 10/03/2023 03/0 09/2022, 03/17/2021, 08/18/2019, Additional history exists DIG LEVEL FOR MEDICATION MONITORING YEARLY 03/08/2024 03/08/2023, 10/02/2022, 07/29/2021 GFR 06/18/2024 12/17/2023, 08/0 01/2023, 10/02/2022, Additional history exists HbA1c 06/18/2024 12/17/2023, 08/0 01/2023, 10/02/2022, Additional history exists Diabetic Eye Exam 11/01/2024 11/02/2023, , 04/07/2019, Additional history exists Diabetic Foot Exam 11/01/2024 11/02/2023, 0 03/17/2021, 12/27/2019, Additional history exists CKD HGB USE SMARTSET 76777 12/16/202412/16, 12/17/2023, 03/08/2023, Additional history exists DXA [...] cardia documented in this encounter Care Teams Taping Foreman Relationship Specialty Start Date End Date Jason West MD [address] [place] [address] PCP - General 02/06/03 documented as of this encounter
--- OUTSIDE RECORDS SUMMARY | 2024-02-23 02:50 | External Medical Summary ---
Author Name Unknown Address Unknown Organization [id number]:[facility] - [address] [place] [address] Laboratory Report Ordering Provider Test Date Status DAQUAN MOHAN 01/11/2024 14:31:22 Final Observation Date Value Abnormality Reference (Units ) Status Hepatitis B virus core Ab [Presence] in Serum 01/11/2024 14:31:22 Negative Negative Final Performing Location [facility] - [address] [place] [address]
--- OUTSIDE RECORDS SUMMARY | 2024-02-23 02:50 | External Medical Summary ---
Author Name Unknown Address Unknown Organization K09:[facility] [place] [address] [address] Laboratory Report Ordering Provider Test Date Status DAQUAN MOHAN 01/11/2024 14:31:22 Final Observation Date Value Abnormality Reference (Units ) Status WBC, Total 01/11/2024 14:31:22 8.06 4.00-10.8 0 (K/uL) Final RBC 01/11/2024 14:31:22 4.18 3.85-5.15 (M/uL) Final Hemoglobin 01/11/2024 14:31:22 10.0 Below low normal 12 .0-15.3 (g/dL) Final HCT 01/11/2024 14:31:22 35.0 Below low normal 36. 0-45.2 (%) Final MCV 01/11/2024 14:31:22 83.7 81.5-97.5 (fL) Final MCH 01/11/2024 14:31:22 23.9 27.0-34.0 (pg) Final MCHC 01/11/2024 14:31:22 28.6 32.0-36.0 (g/dL) Final RDW 01/11/2024 14:31:22 18.3 11.5-15.5 (%) Final Platelets 01/11/2024 14:31:22 370 140-400 (K /uL) Final MPV 01/11/2024 14:31:22 9.6 6.6-11.1 ( fL) Final Performing Location [facility] [place] [address]
--- OUTSIDE RECORDS SUMMARY | 2024-02-23 02:50 | External Medical Summary ---
Author Name Unknown Address Unknown Organization K09:[facility] [place] [address] Laboratory Report Ordering Provider Test Date Status DAQUAN MOHAN 01/11/2024 14:31:22 Final Observation Date Value Abnormality Reference (Units ) Status SYNC LEUKOCYTES IN BLOOD BY AUTOMATED COUNT 01/11/2024 14:31:22 8.06 4.00-10.80 (K/uL) Final Segs 01/11/2024 14:31:22 70.8 40.0-75.0 (%) Final Lymphs % 01/11/2024 14:31:22 19.6 18.0-42.0 (%) Final Monos 01/11/2024 14:31:22 6.3 1.0-11.0 (%) Final Eosinophils 01/11/2024 14:31:22 2.9 0.0-6.0 (%) Final Basos 01/11/2024 14:31:22 0.4 0.0-2.0 (%) Final Absolute Segs 01/11/2024 14:31:22 5.71 1.80-7.70 (K/uL) Final Lymphs, absolute 01/11/2024 14:31:22 1.58 1.00-4.80 (K/ul) Final Monos, Abs 01/11/2024 14:31:22 0.51 0.00-1.10 (K/uL) Final Eos, Abs 01/11/2024 14:31:22 0.23 0.00-0.70 (K/uL) Final Basos, Abs 01/11/2024 14:31:22 0.03 0.00-0.20 (K/uL) Final Performing Location [facility] [place] [address]
--- OUTSIDE RECORDS SUMMARY | 2024-02-23 02:50 | External Medical Summary ---
Author Name Unknown Address Unknown Organization K09:[facility] [place] [address] [place] [address] Laboratory Report Ordering Provider Test Date Status DAQUAN MOHAN 01/11/2024 14:31:22 Final Observation Date Value Abnormality Reference (Units ) Status BUN 01/11/2024 14:31:22 15 6-20 (mg/dL) Final Creatinine 01/11/2024 14:31:22 0.8 0.5-1.0 (mg/dL) Final Glomerular filtration rate/1.73 sq M.predicted [Volume Rate/Area] in Serum, Plasma or Blood by Creatinine-based formula (CKD-EPI) 01/11/2024 14:31:22 73 >=60 (mL/min) Final eGFR is calculated based on the CKD-EPI 2020 equation Sodium 01/11/2024 14:31:22 142 135-146 (m mol/L) Final Potassium 01/11/2024 14:31:22 4.6 3.5-5.1 (m mol/L) Final Cl 01/11/2024 14:31:22 104 98-107 (mm ol/L) Final CO2 01/11/2024 14:31:22 27 22-32 (mmo l/L) Final Anion gap 01/11/2024 14:31:22 11 7-15 (mmol /L) Final Glucose 01/11/2024 14:31:22 92 70-120 (mg /dL) Final Albumin 01/11/2024 14:31:22 3.6 Below low normal 3.8 -5.0 (g/dL) Final AST (Aspartate aminotransferase) 01/11/2024 14:31:22 21 10-35 (U/L) Fin al Alk Phos 01/11/2024 14:31:22 90 35-130 (U/ L) Final Bilirubin, Total 01/11/2024 14:31:22 0.5 <=1 .2 (mg/dL) Final Calcium 01/11/2024 14:31:22 9.4 8.4-10.2 ( mg/dL) Final Protein 01/11/2024 14:31:22 7.3 6.0-8.3 (g /dL) Final ALT (Alanine aminotransferase) 01/11/2024 14:31:22 7 Below low normal 10-35 (U/L) Final Performing Location [facility] [place] [address] [place] [address]
--- OUTSIDE RECORDS SUMMARY | 2024-02-23 02:50 | External Medical Summary ---
Author Name Unknown Address Unknown Organization K09:[facility] [place] [place] [address] Laboratory Report Ordering Provider Test Date Status DAQUAN MOHAN 01/11/2024 14:31:22 Final Observation Date Value Abnormality Reference (Units ) Status Nucleated erythrocytes/100 leukocytes [Ratio] in Blood by Automated count 01/11/2024 14:31:22 Final Performing Location [facility] [place] [address]
--- OUTSIDE RECORDS SUMMARY | 2024-02-23 02:50 | External Medical Summary ---
Author Name Unknown Address Unknown Organization K01:[facility] [place] [address] [place] [address] Laboratory Report Ordering Provider Test Date Status DAQUAN MOHAN 01/11/2024 14:31:22 Final Observation Date Value Abnormality Reference (Units) Status Hepatitis B virus surface Ab [Units/volume] in Serum or Plasma by Immunoassay 01/11/2024 14:31:22 <3.5 (mIU/mL) Final Hepatitis B virus surface Ab [Presence] in Serum by Immunoassay 01/11/2024 14:31:22 Negative Final HEPATITIS B SURFACE ANTIBODY, INTERPRETATION 01/11/2024 14:31:22 NOT immune to Hepatitis B Virus Final POSITIVE: >=11.5 mIU/mL
INDETERMINATE: 8.5-<11.5 mIU/mL
NEGATIVE: <8.5 mIU/mL Performing Location [facility] [place] [address] [address] [facility] [address]
--- OUTSIDE RECORDS SUMMARY | 2024-02-23 02:51 | External Medical Summary | Summary of Care ---
Author Name Unknown Organization [facility] Address [address] [facility] [address] Phone [phone] Care Team Providers Care Materials Coordinator Name Role Phone Jason West MD Primary Care Provider +1- [phone] Encounter Details Date Type Department Care Team (Late st Contact Info) Description 01/04/2024 Orders Only Hematology/Oncology [facility] Jeny [place] [address] [facility] [place] [phone] Marquez Kolb MD [address] [facility] [place] [address] Allergies Active Allergy Reactions Criticality Noted Date Comments Hydroxyzine Hcl 05/12/2012 halluzinating Cetirizine & Related 02/11/1999 HALLUCINATIONS documented as of this encounter (statuses as of 01/04/2024) Medications Medication Sig Dispensed Refills Start Date End Date Status MULTIVITAMIN/STOCK GRADER AL FORMULA TABS OR 1 TABLET DAILY 0 0 12/02/2001 Active SYSTANE PRESERVATIVE FREE 0.4-0.3 % OP SOLNIndications:Ot her anterior corneal dystrophies 1 gtt OU q2h WA 1 box 6 12/03/2008 Active CALCIUM 5783-8166 MG-UNIT PO CHEW Take 1 Tablet by [...] 81 MG TBECIndications:Co ronary artery disease involving [place] coronary artery of [place] heart without angina pectoris Take 1 Tab by mouth daily. 30 Tab 11 07/17/2019 Active Loratadine 10 MG Oral Capsule Take 1 Capsule by mouth in the morning. Active Magnesium 400 MG Capsule Take 1 by mouth daily. 30 Cap 11 01/11/2020 Active acetaminophen (TYLENOL) 325 MG Tablet 2 Tablets. 04/13/2020 Active Nitroglycerin 0.4 MG Sublingual Tablet Sublingual (Nitrostat)Indicat ions:Coronary artery disease involving [place] coronary artery of [place] heart without angina pectoris,Old [place] (myocardial infarction) [...] Oral Tablet (Lipitor)Indicatio ns:Coronary artery disease involving [place] coronary artery of [place] heart without angina pectoris,Dyslipide mona TAKE 1 [...] systolic heart failure (HCC),Coronary artery disease involving [place] coronary artery of [place] heart without angina pectoris Take 1 Tablet [...] Dyslipidemia 02/18/2018 Coronary artery disease invo lving [place] coronary artery of [place] heart without angina pectoris 12/10/2017 PAF (paroxysmal [...] mRNA, LNP-s, No Pre serve, 2-Dose Series ([employer]) 07/23/2021,11/14/2020,10/24/2020 COVID-19, MRNA-LNP, 23-24, P F, 30 MCG/0.3 mL, 12 YRS AND ABOVE, IM ([employer]-Comirnat) 05/26/2023 Covid-19, Mrna, Lnp-s, Pf, B ivalent, 30 Mcg, IM, 12 yrs and above ([employer]) 05/26/2022 Pneumococcal Conjugate Vacc, 13 Valent [...] Description 01/05/2024 11:20 AM EDT Office Visit [facility] [address] [place] [phone] Jason West MD [address] [facility] [place] [address] 01/11/2024 1:45 PM EDT Nurse Only Hematology/Oncology [facility] [address] [place] [phone] Jeny, Nurse Hem Onc [facility] [address] [facility] [place] [address] 01/26/2024 10:00 AM EDT Office Visit Cardiology, [facility] [address] [facility] [place] [address] Segun Cooley MD [address] [place] [address] 02/21/2024 9:30 AM EDT Office Visit Cardiology, [facility] [address] [place] [address] Aurelio Viera PA-C [address] [place] [address] 03/08/2024 10:00 AM EDT Cardiac Studies Cardiology, [facility] [address] [place] [address] [facility] [address] [place] [address] 04/05/2024 1:00 PM EDT Office Visit [facility] [address] [place] [address] Jason West MD [address] [place] [address] Health Maintenance Due Date Last Done Comments Hepatitis C Screening 1963 COVID-19 Vaccine (2022- season) 2023 05/26/2023, 05/26/2022, 07/23/2021, Additional history exists Albumin/Creatinine Ratio 10/03/[address] 023, 08/28/2021, 11/18/2020, Additional history exists CKD PHOS USE SMARTSET 78270 10/03/2023 03/0 09/2022, 03/17/2021, 08/18/2019, Additional history exists DIG LEVEL FOR MEDICATION MONITORING YEARLY 03/08/2024 03/08/2023, 10/02/2022, 07/29/2021 GFR 06/18/2024 12/17/2023, 08/0 01/2023, 10/02/2022, Additional history exists HbA1c 06/18/2024 12/17/2023, 08/0 01/2023, 10/02/2022, Additional history exists Diabetic Eye Exam 11/01/2024 11/02/2023, , 04/07/2019, Additional history exists Diabetic Foot Exam 11/01/2024 11/02/2023, 0 03/17/2021, 12/27/2019, Additional history exists CKD HGB USE SMARTSET 22792 12/16/202412/16, 12/17/2023, 03/08/2023, Additional history exists DXA [...] filedocumented as of this encounter Care Teams Materials Coordinator Relationship Specialty Start Date End Date Jason West MD [address] [place], [place] [phone] PCP - General 02/06/03 documented as of this encounter
--- OUTSIDE RECORDS SUMMARY | 2024-02-23 02:51 | External Medical Summary | Summary of Care ---
Author Name Unknown Organization [facility] [address] [address] Phone [phone] Care Team Providers Care Housekeeping Assistant Name Role Phone Jason West MD Primary Care Provider [phone]- [phone] Reason for Visit * Reason Onset Date Comments Scheduling 12/28/2023 Encounter Details Date Type Department Care Team (Late st Contact Info) Description 12/28/2023 Telephone [facility]ology [facility] [address] [facility] [place] [address] Raymon Lord PA-C [address] [facility] [place] [address] Scheduling Allergies Active Allergy Reactions Criticality Noted Date Comments Hydroxyzine Hcl 05/12/2012 halluzinating Cetirizine & Related 02/11/1999 HALLUCINATIONS documented as of this encounter (statuses as of 12/28/2023) Medications Medication Sig Dispensed Refills Start Date End Date Status MULTIVITAMIN/MINE RAL FORMULA TABS OR 1 TABLET DAILY 0 0 2 Active SYSTANE PRESERVATIVE FREE 0.4-0.3 % OP SOLNIndications:O ther anterior corneal dystrophies 1 gtt OU q2h WA 1 box 6 9 Active CALCIUM 8160-0365 MG-UNIT PO CHEW Take 1 Tablet by mouth in the morning. Active Cinnamon 500 MG Capsule Take 2 Capsules by mouth in the morning. 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 Use up to four times a day as directed. Dx E11.9 3 Box Dosing Unit 3 9 Active aspirin enteric coated 81 MG TBECIndications:C oronary artery disease involving [place] coronary artery of [place] heart without angina pectoris Take 1 [...] Tablet Sublingual (Nitrostat)Indica tions:Coronary artery disease involving [place] coronary artery of [place] heart without angina pectoris,Old [place] (myocardial infarction) [...] systolic heart failure (HCC),Coronary artery disease involving [place] coronary artery of [place] heart without angina pectoris TAKE 1 [...] renal disease ([facility]) Check blood sugars one time daily. Dx E11.9 300 Strip 2 3 Active Atorvastatin Calcium 40 MG Oral Tablet (Lipitor)Indicati ons:Coronary artery disease involving [place] coronary artery of [place] heart without angina pectoris,Dyslipid emia TAKE 1 TABLET DAILY IN THE MORNING 90 Tablet 3 3 Active Insulin Glargine Solostar 100 UNIT/ML Subcutaneous Solution Pen-injector (Lantus SoloStar)Indicati ons:DM type 2 causing renal disease, 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) INJECT 20 UNITS SUBCUTANEOUSLY TWICE DAILY 30 mL 2 3 Active Digoxin 125 MCG Oral Tablet (Lanoxin)Indicati ons:Chronic systolic heart failure (HCC),Coronary artery disease involving [place] coronary artery of [place] heart without angina pectoris Take 1 [...] before a meal 180 Tablet 1 4 12/28/19 24 Discontinu ed(Refill) documented as of this encounter (statuses as of 12/28/2023) Active Problems Problem Noted Date Diagnosed Date [...] Dyslipidemia 02/18/2018 Coronary artery disease invo lving [place] coronary artery of [place] heart without angina pectoris 12/10/2017 PAF (paroxysmal atrial fibrillation) 12/10/2017 Type 2 diabetes mellitus wit h hemoglobin A1c goal of less than 8.0% 09/08/2013 Overview: ICD-10 update of inactive term DJD, CERVICAL SPINE 04/12/2002 GENERAL OSTEOARTHROSIS documented as of this encounter (statuses as of 12/28/2023) Resolved Problems Problem Noted Date Diagnosed Date [...] as of this encounter (statuses as of 12/28/2023) Immunizations Name Administration Dates Next Due COVID-19 mRNA, LNP-s, No Pre serve, 2-Dose Series ([employer]) 07/23/2021,11/14/2020,10/24/2020 COVID-19, MRNA-LNP, 23-24, P F, 30 MCG/0.3 mL, 12 YRS AND ABOVE, IM ([employer]-ComirnatConforMIS) 05/26/2023 Covid-19, Mrna, Lnp-s, Pf, B ivalent, [...] Telephone Encounter - Raymon Lord PA-C - 12/28/2023 10:18 AM EDT Duplicate encounter, pt can get FNA done at [facility]. 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 Pt to let us know documented in this encounter Plan of Treatment Upcoming Encounters Date Type Department Care Team (Late st Contact Info) Description 01/04/2024 2:25 PM EDT Office Visit Hematology/Oncology [facility] [address] [facility] [place] [id number] Marquez Kolb MD [address] [facility] [place] [address] 02/21/2024 9:30 AM EDT Office Visit Cardiology, [facility] [address] [facility] [place] [address] Aurelio Viera PA-C [address] [place] [address] 03/08/2024 10:00 AM EDT Cardiac Studies Cardiology, [facility] [address] [place] [address] [place], Pacer Clinic [facility] [address] [place] [address] 04/05/2024 1:00 PM EDT Office Visit [facility] [address] [facility] [facility] [phone] Jason West [facility] [address] [facility] [address] Health Maintenance Due Date Last Done Comments Hepatitis C Screening 1963 COVID-19 Vaccine (2022- season) 2023 05/26/2023, 05/26/2022, 07/23/2021, Additional history exists Albumin/Creatinine Ratio 10/03/2023 023, 08/28/2021, 11/18/2020, Additional history exists CKD PHOS USE SMARTSET 22715 10/03/2023 03/0 09/2022, 03/17/2021, 08/18/2019, Additional history exists DIG LEVEL FOR MEDICATION MONITORING YEARLY 03/08/2024 03/08/2023, 10/02/2022, 07/29/2021 GFR 06/18/2024 12/17/2023, 08/0 01/2023, 10/02/2022, Additional history exists HbA1c 06/18/2024 12/17/2023, 08/0 01/2023, 10/02/2022, Additional history exists Diabetic Eye Exam 11/01/2024 11/02/2023, , 04/07/2019, Additional history exists Diabetic Foot Exam 11/01/2024 11/02/2023, 0 03/17/2021, 12/27/2019, Additional history exists CKD HGB USE SMARTSET 95173 12/16/202412/16, 12/17/2023, 03/08/2023, Additional history exists DXA [...] filedocumented as of this encounter Care Teams Housekeeping Assistant Relationship Specialty Start Date End Date Jason West MD [address] [place] [address] PCP - General 02/06/03 documented as of this encounter
--- OUTSIDE RECORDS SUMMARY | 2024-02-23 02:51 | External Medical Summary | Summary of Care ---
Author Name Unknown Organization [facility] Address [address] [place] [address] Phone [phone] Care Team Providers Care Scratch Finisher Name Role Phone Jason West MD Primary Care Provider [phone]- [phone] Reason for Visit * Reason Onset Date Comments Hospital Follow-Up 12/28/2023 HUSSAIN Encounter Details Date Type Department Care Team (Late st Contact Info) Description 12/28/2023 Telephone [facility] [address] [place] [address] Sakshi Ashton, [facility] Follow-Up (HUSSAIN) Allergies Active Allergy Reactions [...] WA 1 box 6 9 Active CALCIUM 4196-5804 MG-UNIT PO CHEW Take 1 Tablet by [...] 81 MG TBECIndications:C oronary artery disease involving [place] coronary artery of barrow heart without angina pectoris Take 1 Tab by mouth daily. 30 Tab 11 9 Active Loratadine 10 MG Oral Capsule Take 1 Capsule by mouth in the morning. Active Magnesium 400 MG Capsule Take 1 by mouth daily. 30 Cap 11 0 Active acetaminophen (TYLENOL) 325 MG Tablet 2 Tablets. 0 Active Nitroglycerin 0.4 MG Sublingual Tablet Sublingual (Nitrostat)Indica tions:Coronary artery disease involving b[place] coronary artery of [place]arrow heart without angina pectoris,Old [place] (myocardial infarction) Place 1 Tablet under the tongue every 5 minutes as needed for Pain, Chest. 25 Tablet 5 3 Active Insulin Pen Needle 32G X 5 MMIndications:DM type 2 causing renal disease, not at goal ([facility]) use to inject lantus twice per day 200 Each 3 3 Active OneTouch Verio In Vitro Strip (Glucose Blood)Indications :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 Dx E11.9 300 Strip 2 3 Active Atorvastatin Calcium 40 MG Oral Tablet (Lipitor)Indicati ons:Coronary artery disease involving [place] coronary artery of [place]arrow heart without angina pectoris,Dyslipid emia TAKE 1 TABLET DAILY IN THE MORNING 90 Tablet 3 3 Active Insulin Glargine Solostar 100 UNIT/ML Subcutaneous Solution Pen-injector (Lantus SoloStar)Indicati ons:DM type 2 causing renal disease, not at goal ([facility]) INJECT 20 UNITS SUBCUTANEOUSLY TWICE DAILY 30 mL 2 3 Active Digoxin 125 MCG Oral Tablet (Lanoxin)Indicati ons:Chronic systolic heart failure (HCC),Coronary artery disease involving barrow coronary artery of barrow heart without angina pectoris Take 1 Tablet [...] before bedtime. 180 Tablet 3 4 Active Midodrine HCl 2.5 MG Oral Tablet (Proamatine) Take 1 Tablet by mouth in the morning and 1 Tablet at noon and 1 Tablet before bedtime. 4 Active Apixaban 5 MG Oral Tablet (Eliquis)Indicati ons:PAF (paroxysmal atrial fibrillation) (HCC) Take 1 Tablet by mouth in the morning and 1 Tablet before bedtime. 180 Tablet 3 3 12/28/19 24 Discontinu ed(Dischar ged) Midodrine HCl 5 MG Oral Tablet (Proamatine)Indic ations:Chronic systolic heart failure (HCC),Coronary artery disease involving barrow coronary artery of barrow heart without angina pectoris TAKE 1 TAB BY MOUTH SHORTLY BEFORE OR UPON RISING IN THE MORNING, AT MIDDAY, AND IN THE LATE AFTERNOON (NO LATER THAN 6PM) 270 Tablet 3 3 12/28/19 24 Discontinu ed(Dischar ged) documented as of this encounter (statuses as [...] Dyslipidemia 02/18/2018 Coronary artery disease invo lving barrow coronary artery of barrow heart without angina pectoris 12/10/2017 PAF (paroxysmal [...] mRNA, LNP-s, No Pre serve, 2-Dose Series ([employer]) 07/23/2021,11/14/2020,10/24/2020 COVID-19, MRNA-LNP, 23-24, P F, 30 MCG/0.3 mL, 12 YRS AND ABOVE, IM ([employer]-Comirnat) 05/26/2023 Covid-19, Mrna, Lnp-s, Pf, B ivalent, 30 Mcg, IM, 12 yrs and above ([employer]) 05/26/2022 Pneumococcal Conjugate Vacc, 13 Valent (Prevnar) [...] Telephone Encounter - Sakshi Ashton RN - 12/28/2023 3:17 PM EDT Transitions of Care Note Reason for Referral:Recent Admission Phone visit for follow up: HUSSAIN Admitted to: [facility], Date: 12/20/2023 Discharged to: Home, Date: 12/25/2023 Diagnosis driving hospitalization: GI Bleed, Anemia, AFib Source/Contact: Patient SUBJECTIVE Consent: Verbal consent for review of hospital discharge: Yes REVIEW OF SYSTEMS Patient/Other Reports: Current patient/caregiver problems or concerns: Reports doing well at home. No concerns CV: Denies problems Pulmonary: Denies problems Chills/Sweats/Fever:Denies chills/sweats Denies fever Appetite:OK, knows which foods she can eat Current diet: Carbohydrate consistent, Dental soft Bowel: denies problems Bladder: denies problems Wound (If applicable): N/A Pain:Denies Sleep:Denies problems Sleeps 5 hours per night on average, then naps during the day FUNCTIONAL STATUS: ADL'S: Needs Assistance With:N/A as pt is independent IADL'S: Needs Assistance With:N/A as pt is independent Cognitive and Mental Health: denies problems, alert and oriented x 3, and able to communicate, understand instructions, process information. MEDICATION RECONCILIATION Medications: Discharge med list reviewed with patient or caregiver New medication: Midodrine 2.5 mg Discontinued medication: Eliquis, Midodrine 5 mg ASSESSMENT Medication Risk Assessment: No risks identified Did patient fail outpatient treatment? No Discharge instructions available for review? Yes PLAN Symptom Monitoring Interventions:Member/caregiver education - signs and symptoms to contact PrimaryCare (DO NOT DELETE-Three quinn symptoms patient is to report to PCP) 1. Chest Pain/SOB 2. Fever/chills 3. Recurrent melena Recreation Attendant SupervisorBusiness Office Associate of Care interventions/Action Plan: PCP appointment scheduled 01/05/2024 Educated on role of HUSSAIN completed with patient/caregiver. Educated patient/caregiver on patient right to have input on HUSSAIN plan of care. Verification of Home Health/DME if indicated: NA Identified Care Gaps: No Care Gaps closed this call: Appointment made or confirmed and Transition of Care follow-up communication Re-evaluation of Plan of Care and progress towards goals achievement: Patient education this visit: Verbal, Scheduled PCP appointment, discussed reasons to call sooner as above Plan to instructed to call Primary Care Provider with change in symptoms or as needed before next follow-up, discharge needs met, verbalizes understanding and agrees with plan. Asking about electric wheelchair, will follow up with referral Sakshi Ashton RN documented in this encounter Plan of Treatment Upcoming Encounters Date Type Department Care Team (Late st Contact Info) Description 01/04/2024 2:25 PM EDT Office Visit Hematology/Oncology [facility] [address] [place] [address] [place] [phone] Marquez Kolb MD [address] [facility] [place] [address] 01/05/2024 11:20 AM EDT Office Visit [facility] [address] [facility] [phone] Jason West MD [address] [facility] [place] [id number] 02/21/2024 9:30 AM EDT [facility] [address] [facility] [place] [address] Aurelio Viera PASaud [address] [facility] [place] [address] 03/08/2024 10:00 AM EDT Cardiac Studies [facility], [facility] [address] [facility] [address] [place], [facility] [place] [address] 04/05/2024 1:00 PM EDT Office Visit [facility] [address] [facility] [phone] Jason West MD [address] [facility] [place] [id number] Health Maintenance Due Date Last Done Comments Hepatitis C Screening 1963 COVID-19 Vaccine (2022-24 season) 2023 05/26/2023, 05/26/2022, 07/23/2021, Additional history exists Albumin/Creatinine Ratio 10/03/2023 03/2 023, 08/28/2021, 11/18/2020, Additional history exists CKD PHOS USE SMARTSET 83669 10/03/2023 03/0 09/2022, 03/17/2021, 08/18/2019, Additional history exists DIG LEVEL FOR MEDICATION MONITORING YEARLY 03/08/2024 03/08/2023, 10/02/2022, 07/29/2021 GFR 06/18/2024 12/17/2023, 08/0 01/2023, 10/02/2022, Additional history exists HbA1c 06/18/2024 12/17/2023, 08/0 01/2023, 10/02/2022, Additional history exists Diabetic Eye Exam 11/01/2024 11/02/2023, , 04/07/2019, Additional history exists Diabetic Foot Exam 11/01/2024 11/02/2023, 0 03/17/2021, 12/27/2019, Additional history exists CKD HGB USE SMARTSET 08499 12/16/202412/16, 12/17/2023, 03/08/2023, Additional history exists DXA [...] filedocumented as of this encounter Care Teams Scratch Finisher Relationship Specialty Start Date End Date Jason West MD [address] [place] [facility] [place] [id number] PCP - General 02/06/03 documented as of this encounter
--- OUTSIDE RECORDS SUMMARY | 2024-02-23 02:51 | External Medical Summary | Summary of Care ---
Author Name Unknown Organization [facility] Address [address] [place] [address] Phone [phone] Care Team Providers Care Vp Delivery Name Role Phone Jason West MD Primary Care Provider [phone] Reason for Visit * Reason Comments Status Check Return in 4 months Encounter Details Date Type Department Care Team (Late st Contact Info) Description 12/17/2023 1:00 PM EDT Office Visit 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; Chronic systolic heart failure (HCC); PAF (paroxysmal atrial fibrillation) (HCC); GE junction carcinoma (HCC) Allergies Active Allergy Reactions Criticality Noted Date Comments Hydroxyzine Hcl 05/12/2012 halluzinating Cetirizine & Related 02/11/1999 HALLUCINATIONS documented as of this encounter (statuses as of 01/03/2024) Medications Medication Sig Dispensed Refills Start Date End Date Status MULTIVITAMIN/MINE RAL FORMULA TABS OR 1 TABLET DAILY 0 0 2 Active SYSTANE PRESERVATIVE FREE 0.4-0.3 % OP SOLNIndications:O ther anterior corneal dystrophies 1 gtt OU q2h WA 1 box 6 9 Active CALCIUM 7628-9328 MG-UNIT PO CHEW Take 1 Tablet by [...] 81 MG TBECIndications:C oronary artery disease involving cahuilla coronary artery of cahuilla heart without angina pectoris Take 1 Tab by mouth daily. 30 Tab 11 9 Active Loratadine 10 MG Oral Capsule Take 1 Capsule by mouth in the morning. Active Magnesium 400 MG Capsule Take 1 by mouth daily. 30 Cap 11 0 Active acetaminophen (TYLENOL) 325 MG Tablet 2 Tablets. 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 12/17/19 24 Discontinu ed(Medicat ion List Clean Up) Amoxicillin 500 MG Oral Capsule (Amoxil) Take 2 Capsules by mouth in the morning and 2 Capsules before bedtime. For 10 days. 12/17/19 24 Discontinu ed(Medicat ion List Clean Up) Clarithromycin 500 MG Oral Tablet (Biaxin) Take 1 Tablet by mouth in the morning and 1 Tablet before bedtime. For 10 days. 12/17/19 24 Discontinu ed(Medicat ion List Clean Up) glipiZIDE 5 MG Oral Tablet (Glucotrol) Take 1 Tablet by mouth in the morning and 1 Tablet before bedtime 30 minutes before a meal 180 Tablet 1 4 12/28/19 24 Discontinu ed(Refill) documented as of this encounter (statuses as of 01/03/2024) Active Problems Problem Noted Date Diagnosed Date [...] Dyslipidemia 02/18/2018 Coronary artery disease invo lving cahuilla coronary artery of cahuilla heart without angina pectoris 12/10/2017 PAF (paroxysmal atrial fibrillation) 12/10/2017 Type 2 diabetes mellitus wit h hemoglobin A1c goal of less than 8.0% 09/08/2013 Overview: ICD-10 update of inactive term DJD, CERVICAL SPINE 04/12/2002 GENERAL OSTEOARTHROSIS documented as of this encounter (statuses as of 01/03/2024) Resolved Problems Problem Noted Date Diagnosed Date [...] as of this encounter (statuses as of 01/03/2024) Immunizations Name Administration Dates Next Due COVID-19 mRNA, LNP-s, No Pre serve, 2-Dose Series ([employer]) 07/23/2021,11/14/2020,10/24/2020 COVID-19, MRNA-LNP, 23-24, P F, 30 MCG/0.3 mL, 12 YRS AND ABOVE, IM (VR1-Comirnaty) 05/26/2023 Covid-19, Mrna, Lnp-s, Pf, B ivalent, [...] Sign Reading Time Taken Comments Blood Pressure 132/70 12/17/2023 12:47 PM EDT Pulse 86 12/17/2023 12:47 PM EDT Temperature 36.6 C (97.8 F) 12/17/2023 12:47 PM E DT Respiratory Rate 18 12/17/2023 12:47 PM EDT Oxygen Saturation 94% 12/17/2023 12:47 PM EDT Inhaled Oxygen Concentration - - Weight 101.6 kg (224 lb) 12/17/2023 12:47 PM EDT Height 160 cm (5' 3") 12/17/2023 12:47 PM EDT Body Mass Index 39.68 12/17/2023 12:47 PM EDT documented in this encounter Patient Instructions * Patient Instructions* Sosa Rosenberg LPN - 12/17/2023 12:47 PM EDT Patient Instructions - Fall Prevention (This education is for all patients over 65 regardless of symptoms) Remember to take your current medications as prescribed. In order to prevent falls, you are encouraged to: Exercise Utilize assistive/adaptive devices Avoid multifocal lenses when walking Avoid hazards in home Maintain a regular toileting schedule Any questions please contact our office. Preventing Falls in the Home (This education is for all patients over 65 regardless of symptoms) As you get older, falls are more likely. Thats because your reaction time slows. Your muscles and joints may also get stiffer, making them less flexible. Illness, medications, and vision changes can also affect your balance. A fall could leave you unable to live on your own. To make your home safer, follow these tips: Floors Put nonskid pads under area rugs Remove throw rugs Replace worn floor coverings Tack carpets firmly to each step on carpeted stairs. Put nonskid strips on the edges of uncarpeted stairs Keep floors and stairs free of clutter and cords Arrange furniture so there are clear pathways Clean up any spills right away Bathrooms Install grab bars in the tub or shower Apply nonskid strips or put a nonskid rubber mat in the tub or shower Sit on a bath chair to bathe Use bathmats with nonskid backing Lighting Keep a flashlight in each room Put a nightlight along the pathway between the bedroom and the bathroom [employer] Patient Education Copyright 2008 - 2010 [employer] except where otherwise noted Preventing Falls: Exercises to Improve Balance, Flexibility, Strength, and Staying Power (This education is for all patients over 65 regardless of symptoms) Certain types of exercises may help make you less likely to fall. Try the ones below. Or do other exercises that your healthcare provider suggests. Depending on your health, you may need to start slowly. Dont let that stop you. Even small amounts of exercise can help you. Be sure to talk to yourhealthcare provider before starting any exercise program. Improve Balance Many types of exercise can help improve balance. Hussain chi and yoga are good examples. Heres another one to try. You can do it anytime and almost anywhere. Stand next to a counter or solid support. Push yourself up onto your tiptoes. Hold for 5 seconds. If you start to lose your balance, hold on to the counter. Rest and repeat 5 times. Work up to holding for 20 to 30 seconds, if you can. Increase Flexibility Being more flexible makes it easier for you to move around safely. Try exercises like the seated hamstring stretch. Sit in a chair and put one foot on a stool. Straighten your leg and reach with both hands down either side of your leg. Reach as far down your leg as you can. Hold for about 20 seconds. Go back to the starting position. Then repeat 5 times. Switch legs. Build Strength Resistance exercises help build strength. You can do them without equipment. Or you can use weights, elastic bands, or special machines. One such exercise is called the biceps curl. You can hold a 1 pound weight or even a can of soup. Do this exercise at least 3 times a week. Strive for everyday. Sit up straight in a chair. Keep your elbow close to your body and your wrist straight. Bend your arm, moving your hand up to your shoulder. Then slowly lower your arm. Repeat 5 times. Switch to the other arm. Build Your Staying Power Aerobic exercises make your heart and lungs stronger so you can keep moving longer. Walking and swimming are two of the best types of exercises you can do. Using a stationary bike is great, too. Find an aerobic exercise that you enjoy. Start slowly and build up. Even 5 minutes is helpful. Aimfor a goal of 30 minutes, at least 3 times a week. You dont have to do 30 minutes in one session. Break it up and walk a little throughout the day. More Helpful Tips Start easy. Slowly work up to doing more. Talk with your healthcare provider about the best exercises for you. Call senior centers or health clubs about exercise programs. If needed, have a family member watch you walk every so often to check your stability. Exercise with a friend. Choose an activity you both enjoy. Try exercises that you can do anytime, anywhere. Here are two examples. Have someone with you when you first try these: Practice walking by placing one foot right in front of the other. Stand up and sit down 10 times. Repeat this throughout the day. [employer] Patient Education Copyright 2009 - 2010 J[employer] except where otherwise noted. Preventing Falls: Moving Safely Using a Cane or Walker (This education is for all patients over 65 regardless of symptoms) Keep the cane away from your feet so you dont trip. A walking aid, such as a cane or walker, can help you stay more independent and avoid falls. Remember to keep your walking aid within easy reach when youre in a chair or in bed. And learn how to use it safely so you dont injure yourself. Using a Cane If you have a stronger side, hold the cane on that side. Get your balance. Move the cane and your weaker leg forward. Support your weight on both the cane and your weaker side. Step with your stronger leg. Start again from step 1. If youre using a folding walker, be sure you know how to lock it open. Check that its locked open before each use. Using a Walker Roll the walker (or lift it, if youre using one without wheels) forward about 12 inches. Step forward with your weaker leg first. Use the walker to help keep your balance. Bring your other foot forward to the center of the walker. Start again from step 1. Helpful Tips Check with your healthcare provider about the right walking aid to use. Ask about a walker with a seat attached. Check the tips of your cane or walker to make sure they have nonskid covers. Move slowly from room to room. Dont ferraro. Sit down to get dressed. Use a godfrey pack or backpack to keep your hands free. Get help for jobs that mean climbing, even on a stepstool. [employer] Patient Education Copyright 2008 - 2010 J[employer] except where otherwise noted. documented in this encounter Progress Notes * Jason West MD - 12/17/2023 1:07 PM EDT Subjective: Ciara Baig is a 78 year old female here today for Chief Complaint Patient presents with Status Check Return in 4 months Had appt with xrt yesterday - had to cancel due to nausea/vomiting/illness Gets shakey at times. No sweats. [employer] - diabetic shoes[facility] Has tickle in throat. No pain in chest. Breathing stable. Ask a doc ID [employer] - will give electric wheelchair. Past Medical History: Diagnosis Date DM type 2, goal A1C below 8.0 09/08/2013 Fam hx-cardiovas dis NEC Family history of diabetes mellitus Generalized osteoarthritis GERD (gastroesophageal reflux disease) Heart failure, systolic, due to CAD ([facility]) 03/31/2018 HTN, goal below 140/90 Menopause Mixed dyslipidemia Morbid Obesity, BMI not known Myalgia and myositis PAF (paroxysmal atrial fibrillation) ([facility]) 12/10/2017 Polymyalgia rheumatica ([facility]) Past Surgical History: Procedure Laterality Date ABDOMEN SURGERY PROCEDURE NEC OVARIAN CYST AND APPENDECTOMY ARTHROPLASTY KNEE TOTAL 05/11 Right, [place]. CATHETERIZE LEFT HEART THRU SKIN 09/25/04 <30% LAD, hyperdynamic LV function EGD, W/ENDOSCOPIC US N/A 11/12/2023 ESOPHAGOGASTRODUODENOSCOPY (EGD), FLEXIBLE, TRANSORAL, ENDOSCOPIC ULTRASOUND performed by Fer Solano MD at ENDOSCOPY [facility] FRACTURE NOS ANKLES, L AND R [...] OU q2h WA 1 box 6 CALCIUM 0010-3527 MG-UNIT PO CHEW Take 1 Tablet by [...] COVID-19 mRNA Vaccine 12 years and above [employer] 30 MCG/0.3 ML IM SUSP Inject into a large muscle asdirected 0.3 mL 0 Atorvastatin Calcium 40 MG Oral Tablet (Lipitor) TAKE 1 TABLET DAILY IN THE MORNING 90 Tablet 3 Insulin Glargine Solostar 100 UNIT/ML Subcutaneous Solution Pen-injector (Lantus SoloStar) INJECT 20 UNITS SUBCUTANEOUSLY TWICE DAILY 30 mL 2 oxyBUTYnin Chloride 5 MG Oral Tablet (Ditropan) TAKE 1 TABLET 2 TIMES DAILY 180 Tablet 3 Metoprolol Succinate ER 100 MG Oral Tablet Extended Release 24 Hour (toPROL XL) TAKE 1 AND 1/2 TABLETS BY MOUTH IN THE MORNING AND 1 TABLET IN THE EVENING 230 Tablet 3 Torsemide 10 MG Oral Tablet (Demadex) Take 1 Tablet by mouth in the morning. Advanced Probiotic Oral Capsule Take 1 Capsule by mouth daily. Ketoconazole 2 % External Shampoo Apply topically to affected area every 3 days for 28 days. Shampoo twice a week for 4 weeks. 120 mL 1 Fluzone High-Dose Quadrivalent 0.7 ML Suspension Prefilled Syringe (Influenza Vac High-Dose Quad (65 years and older)) Inject 0.7 ml intramuscularly as directed (Patient not taking: Reported on 12/17/2023) 0.7 mL 0 Abrysvo 120 MCG/0.5ML Intramuscular Solution Reconstituted (RSV Pre-Fusion F A&B Vac Rcmb) inject as directed (Patient not taking: Reported on 12/17/2023) 1 Each 0 Digoxin 125 MCG Oral Tablet (Lanoxin) Take 1 Tablet by mouth at bedtime. 90 Tablet 3 glipiZIDE 5 MG Oral Tablet (Glucotrol) Take 1 Tablet by mouth in the morning and 1 Tablet before bedtime. 180 Tablet 3 Midodrine HCl 2.5 MG Oral Tablet (Proamatine) Take 1 Tablet by mouth in the morning and 1 Tablet atnoon and 1 Tablet before bedtime. No current facility-administered medications for this visit. 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 Shampoo twice a week for 4 weeks. Continue current treatments and specialty follow up. Will assist as able with diabetic shoes, mobility devices Follow Up: Return in about 4 months (around 04/18/2024) for recheck. | For: recheck 36 min with pt and chart review. Jason West MD documented in this encounter Nursing Notes * Sosa Rosenberg LPN - 12/17/2023 12:47 PM EDT The patient has been properly identified by confirmation of name and date of . Chief Complaint Patient presents with Status Check Return in 4 months Patient reports swelling in bilateral legs/feet Scalp is itchy Tremors that come on "all the sudden" Not present all the time documented in this encounter Plan of Treatment Upcoming Encounters Date Type Department Care Team (Late st Contact Info) Description 01/04/2024 2:25 PM EDT Office Visit Hematology/Oncology [facility] [address] [place] [id number] Marquez Kolb MD [address] [address] 01/05/2024 11:20 AM EDT Office Visit [facility] [address] [place] [phone] Jason West MD [address] [place] [address] 01/26/2024 10:00 AM EDT Office Visit Cardiology, [facility] [address] [facility] [place] [address] Segun Cooley MD [address] [place] [address] 02/21/2024 9:30 AM EDT Office Visit Cardiology, [facility] [address] [place] [address] Aurelio Viera PA-C [address] [place] [address] 03/08/2024 10:00 AM EDT Cardiac Studies Cardiology, [facility] [address] [place] [place] [address] [address] [facility] [address] [place] [address] 04/05/2024 1:00 PM EDT Office Visit [facility] [address] [place] [facility] [place] [id number] Jason West MD [address] [place] [address] Health Maintenance Due Date Last Done Comments Hepatitis C Screening 1963 COVID-19 Vaccine ( season) 2023 05/26/2023, 05/26/2022, 07/23/2021, Additional history exists Albumin/Creatinine Ratio 10/03/2023 023, 08/28/2021, 11/18/2020, Additional history exists CKD PHOS USE SMARTSET 42432 10/03/2023 03/0 09/2022, 03/17/2021, 08/18/2019, Additional history exists DIG LEVEL FOR MEDICATION MONITORING YEARLY 03/08/2024 03/08/2023, 10/02/2022, 07/29/2021 GFR 06/18/2024 12/17/2023, 08/0 01/2023, 10/02/2022, Additional history exists HbA1c 06/18/2024 12/17/2023, 08/0 01/2023, 10/02/2022, Additional history exists Diabetic Eye Exam 11/01/2024 11/02/2023, , 04/07/2019, Additional history exists Diabetic Foot Exam 11/01/2024 11/02/2023, 0 03/17/2021, 12/27/2019, Additional history exists CKD HGB USE SMARTSET 12000 12/16/202412/16, 12/17/2023, 03/08/2023, Additional history exists DXA [...] hemoglobin A1c goal of less than 8.0% (HCC)- Primary Risk and functional assessment Screening for unspecified condition 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
--- OUTSIDE RECORDS SUMMARY | 2024-02-23 02:51 | External Medical Summary | Summary of Care ---
Author Name Unknown Organization [facility] Address [address] [place] [address] Phone [phone] Care Team Providers Care R D Engineer Name Role Phone Jason West MD Primary Care Provider [phone]- [phone] Reason for Visit * Reason Onset Date Comments Advice 12/30/2023 [place] Encounter Details Date Type Department Care Team (Late st Contact Info) Description 12/30/2023 Telephone Hematology/Oncology [facility] [place] [address] [facility] [address] Services, Scheduling [address] [place] [address] Advice ([place]ort[place]) Allergies Active Allergy Reactions Criticality Noted Date Comments Hydroxyzine Hcl 05/12/2012 halluzinating Cetirizine & Related 02/11/1999 HALLUCINATIONS documented as of this encounter (statuses as of 12/30/2023) Medications Medication Sig Dispensed Refills Start Date End Date Status MULTIVITAMIN/CALENDER ROLL OPERATOR AL FORMULA TABS OR 1 TABLET DAILY 0 0 12/02/2001 Active SYSTANE PRESERVATIVE FREE 0.4-0.3 % OP SOLNIndications:Ot her anterior corneal dystrophies 1 gtt OU q2h WA 1 box 6 12/03/2008 Active CALCIUM 7650-6005 MG-UNIT PO CHEW Take 1 Tablet by [...] 81 MG TBECIndications:Co ronary artery disease involving [place] coronary artery of [place] heart without angina pectoris Take 1 [...] Tablet Sublingual (Nitrostat)Indicat ions:Coronary artery disease involving [place] coronary artery of [place] heart without angina pectoris,Old [place] (myocardial infarction) [...] Oral Tablet (Lipitor)Indicatio ns:Coronary artery disease involving [place] coronary artery of [place] heart without angina pectoris,Dyslipide mona TAKE 1 TABLET DAILY IN THE MORNING 90 Tablet 3 05/27/2023 Active Insulin Glargine Solostar 100 UNIT/ML Subcutaneous Solution Pen-injector (Lantus SoloStar)Indicatio ns:DM type 2 causing renal disease, 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 12/25/2023 Active documented as of this encounter (statuses as of 12/30/2023) Active Problems Problem Noted Date Diagnosed Date [...] Dyslipidemia 02/18/2018 Coronary artery disease invo lving [place] coronary artery of [place] heart without angina pectoris 12/10/2017 PAF (paroxysmal atrial fibrillation) 12/10/2017 Type 2 diabetes mellitus wit h hemoglobin A1c goal of less than 8.0% 09/08/2013 Overview: ICD-10 update of inactive term DJD, CERVICAL SPINE 04/12/2002 GENERAL OSTEOARTHROSIS documented as of this encounter (statuses as of 12/30/2023) Resolved Problems Problem Noted Date Diagnosed Date [...] as of this encounter (statuses as of 12/30/2023) Immunizations Name Administration Dates Next Due COVID-19 mRNA, LNP-s, No Pre serve, 2-Dose Series (Pfizer) 07/23/2021,11/14/2020,10/24/2020 COVID-19, MRNA-LNP, 23-24, P F, 30 [...] Telephone Encounter - Delmy Beal RN - 12/30/2023 2:40 PM EDT Called patient- advised her to keep appt 01/04/24 as scheduled. At this appt, Dr Kolb will order chemotherapy. She verbalized understanding. * Telephone Encounter - Sola Gold OSA - 12/30/2023 2:19 PM EDT Patient called and said that she has to have her chemotherapy treatments via [facility], and she waswondering what she had to do to get that scheduled. Please advise. Thank you. documented in this encounter Plan of Treatment Upcoming Encounters Date Type Department Care Team (Late st Contact Info) Description 01/04/2024 2:25 PM EDT Office Visit Hematology/Oncology [facility] [place] [address] [place], [place] [phone] Marquez Kolb MD [address] [place] [address] 01/05/2024 11:20 AM EDT Office Visit [facility] [address] [place] [facility] [place] [address] Jason West MD [address] [place] [address] 01/26/2024 10:00 AM EDT Office Visit Cardiology, [facility] [address] [place] [address] Segun Cooley MD [address] [place] [address] 02/21/2024 9:30 AM EDT Office Visit Cardiology, [facility] [address] [place] [address] Aurelio Viera PA-C [address] [place] [address] 03/08/2024 10:00 AM EDT Cardiac Studies Cardiology, [facility] [address] [facility] [place] [address] [facility] [address] [place] [address] 04/05/2024 1:00 PM EDT Office Visit [facility] [address] [place] [facility] [place] [phone] Jason West MD [address] [facility] [place] [address] Health Maintenance Due Date Last Done Comments Hepatitis C Screening 1963 COVID-19 Vaccine ( season) 2023 05/26/2023, 05/26/2022, 07/23/2021, Additional history exists Albumin/Creatinine Ratio 10/03/202310/02/ 023, 08/28/2021, 11/18/2020, Additional history exists CKD PHOS USE SMARTSET 27842 10/03/2023 03/0 09/2022, 03/17/2021, 08/18/2019, Additional history exists DIG LEVEL FOR MEDICATION MONITORING YEARLY 03/08/2024 03/08/2023, 10/02/2022, 07/29/2021 GFR 06/18/2024 12/17/2023, 08/0 01/2023, 10/02/2022, Additional history exists HbA1c 06/18/2024 12/17/2023, 08/0 01/2023, 10/02/2022, Additional history exists Diabetic Eye Exam 11/01/2024 11/02/2023, , 04/07/2019, Additional history exists Diabetic Foot Exam 11/01/2024 11/02/2023, 0 03/17/2021, 12/27/2019, Additional history exists CKD HGB USE SMARTSET 04810 12/16/202412/16, 12/17/2023, 03/08/2023, Additional history exists DXA [...] filedocumented as of this encounter Care Teams R D Engineer Relationship Specialty Start Date End Date Jason West MD [address] [place] [address] PCP - General 02/06/03 documented as of this encounter
--- OUTSIDE RECORDS SUMMARY | 2024-02-23 02:51 | External Medical Summary | Summary of Care ---
Author Name Unknown Organization [facility] Address [address] [place] [address] Phone [phone] Care Team Providers Care Flitch Hanger Name Role Phone Jason West MD Primary Care Provider [phone]- [phone] Encounter Details Date Type Department Care Team (Late st Contact Info) Description 01/04/2024 Orders Only Hematology/Oncology, [facility] [address] [place] [address] Marquez Kolb MD [address] [place] [address] Allergies Active Allergy Reactions Criticality Noted Date Comments Hydroxyzine Hcl 05/12/2012 halluzinating Cetirizine & Related 02/11/1999 HALLUCINATIONS documented as of this encounter (statuses as of 01/04/2024) Medications Medication Sig Dispensed Refills Start Date End Date Status MULTIVITAMIN/CHILD NEUROLOGIST AL FORMULA TABS OR 1 TABLET DAILY 0 0 12/02/2001 Active SYSTANE PRESERVATIVE FREE 0.4-0.3 % OP SOLNIndications:Ot her anterior corneal dystrophies 1 gtt OU q2h WA 1 box 6 12/03/2008 Active CALCIUM 4591-3205 MG-UNIT PO CHEW Take 1 Tablet by [...] 81 MG TBECIndications:Co ronary artery disease involving [place] coronary artery of [place] heart without angina pectoris Take 1 Tab by mouth daily. 30 Tab 11 07/17/2019 Active Loratadine 10 MG Oral Capsule Take 1 Capsule by mouth in the morning. Active Magnesium 400 MG Capsule Take 1 by mouth daily. 30 Cap 11 01/11/2020 Active acetaminophen (TYLENOL) 325 MG Tablet 2 Tablets. 04/13/2020 Active Nitroglycerin 0.4 MG Sublingual Tablet Sublingual (Nitrostat)Indicat ions:Coronary artery disease involving [place] coronary artery of [place] heart without angina pectoris,Old [place] (myocardial infarction) [...] Oral Tablet (Lipitor)Indicatio ns:Coronary artery disease involving [place] coronary artery of [place] heart without angina pectoris,Dyslipide mona TAKE 1 [...] systolic heart failure (HCC),Coronary artery disease involving [place] coronary artery of [place] heart without angina pectoris Take 1 Tablet [...] Dyslipidemia 02/18/2018 Coronary artery disease invo lving [place] coronary artery of [place] heart without angina pectoris 12/10/2017 PAF (paroxysmal [...] mRNA, LNP-s, No Pre serve, 2-Dose Series ([employer]) 07/23/2021,11/14/2020,10/24/2020 COVID-19, MRNA-LNP, 23-24, P F, 30 MCG/0.3 mL, 12 YRS AND ABOVE, IM ([employer]) 05/26/2023 Covid-19, Mrna, Lnp-s, Pf, B ivalent, 30 Mcg, IM, 12 yrs and above ([employer]) 05/26/2022 Pneumococcal Conjugate Vacc, 13 Valent (Prevnar) [...] Description 01/05/2024 11:20 AM EDT Office Visit [facility] [address] [place] [address] Jason West MD [address] [facility] [place] [address] 01/11/2024 1:45 PM EDT Nurse Only Hematology/Oncology [facility] [address] [place] [id number] Jeny, Nurse Hem Onc [facility] [address] [facility] [place] [address] 01/26/2024 10:00 AM EDT Office Visit Cardiology, [facility] [address] [facility] [place] [address] Segun Cooley MD [address] [place] [address] 02/21/2024 9:30 AM EDT Office Visit Cardiology, [facility] [address] [place] [address] Aurelio Viera PA-C [address] [place] [address] 03/08/2024 10:00 AM EDT Cardiac Studies Cardiology, [facility] [address] [place] [address] [facility] [address] [place] [address] 04/05/2024 1:00 PM EDT Office Visit [facility] [address] [place] [phone] Jason West MD [address] [place] [address] Health Maintenance Due Date Last Done Comments Hepatitis C Screening 1963 COVID-19 Vaccine (2022-24 season) 2023 05/26/2023, 05/26/2022, 07/23/2021, Additional history exists Albumin/Creatinine Ratio 10/03/2023 023, 08/28/2021, 11/18/2020, Additional history exists CKD PHOS USE SMARTSET 66665 10/03/2023 03/0 09/2022, 03/17/2021, 08/18/2019, Additional history exists DIG LEVEL FOR MEDICATION MONITORING YEARLY 03/08/2024 03/08/2023, 10/02/2022, 07/29/2021 GFR 06/18/2024 12/17/2023, 08/0 01/2023, 10/02/2022, Additional history exists HbA1c 06/18/2024 12/17/2023, 08/0 01/2023, 10/02/2022, Additional history exists Diabetic Eye Exam 11/01/2024 11/02/2023, , 04/07/2019, Additional history exists Diabetic Foot Exam 11/01/2024 11/02/2023, 0 03/17/2021, 12/27/2019, Additional history exists CKD HGB USE SMARTSET 97968 12/16/202412/16, 12/17/2023, 03/08/2023, Additional history exists DXA [...] filedocumented as of this encounter Care Teams Flitch Hanger Relationship Specialty Start Date End Date Jason West MD [address] [facility] [place] [address] PCP - General 02/06/03 documented as of this encounter
--- OUTSIDE RECORDS SUMMARY | 2024-02-23 02:51 | External Medical Summary | Summary of Care ---
Author Name Unknown Organization [facility] Address [address] [facility] [address] Phone [phone] Care Team Providers Care Smoke Eater Name Role Phone Jason West MD Primary Care Provider [phone]- [phone] Encounter Details Date Type Department Care Team (Late st Contact Info) Description 12/31/2023 Result Scan Unspecified Department Tristian Vaca, DO [address] [place] [address] <No scans attached> Allergies Active Allergy Reactions Criticality Noted Date Comments Hydroxyzine Hcl 05/12/2012 halluzinating Cetirizine & Related 02/11/1999 HALLUCINATIONS documented as of this encounter (statuses as of 12/31/2023) Medications Medication Sig Dispensed Refills Start Date End Date Status MULTIVITAMIN/SHEEP SHEARER AL FORMULA TABS OR 1 TABLET DAILY 0 0 12/02/2001 Active SYSTANE PRESERVATIVE FREE 0.4-0.3 % OP SOLNIndications:Ot her anterior corneal dystrophies 1 gtt OU q2h WA 1 box 6 12/03/2008 Active CALCIUM 3955-5414 MG-UNIT PO CHEW Take 1 Tablet by [...] 81 MG TBECIndications:Co ronary artery disease involving [place] coronary artery of [place] heart without angina pectoris Take 1 Tab by mouth daily. 30 Tab 11 07/17/2019 Active Loratadine 10 MG Oral Capsule Take 1 Capsule by mouth in the morning. Active Magnesium 400 MG Capsule Take 1 by mouth daily. 30 Cap 11 01/11/2020 Active acetaminophen (TYLENOL) 325 MG Tablet 2 Tablets. 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 goal ([facility]) INJECT 20 UNITS SUBCUTANEOUSLY TWICE DAILY 30 mL 2 07/08/2023 Active Digoxin 125 MCG Oral Tablet (Lanoxin)Indicatio ns:Chronic systolic heart failure (HCC),Coronary artery disease involving [place] coronary artery of [place] heart without angina pectoris Take 1 Tablet [...] as of this encounter (statuses as of 12/31/2023) Active Problems Problem Noted Date Diagnosed Date [...] Dyslipidemia 02/18/2018 Coronary artery disease invo lving [place] coronary artery of [place] heart without angina pectoris 12/10/2017 PAF (paroxysmal atrial fibrillation) 12/10/2017 Type 2 diabetes mellitus wit h hemoglobin A1c goal of less than 8.0% 09/08/2013 Overview: ICD-10 update of inactive term DJD, CERVICAL SPINE 04/12/2002 GENERAL OSTEOARTHROSIS documented as of this encounter (statuses as of 12/31/2023) Resolved Problems Problem Noted Date Diagnosed Date [...] as of this encounter (statuses as of 12/31/2023) Immunizations Name Administration Dates Next Due COVID-19 mRNA, LNP-s, No Pre serve, 2-Dose Series ([employer]) 07/23/2021,11/14/2020,10/24/2020 COVID-19, MRNA-LNP, 23-24, P F, 30 [...] 01/04/2024 2:25 PM EDT Office Visit Hematology/Oncology [facility] [address] [facility] [place] [phone] Marquez Kolb MD [address] [facility] [place] [address] 01/05/2024 11:20 AM EDT Office Visit [facility] [address] [place] [phone] Jason West MD [address] [place] [address] 01/26/2024 10:00 AM EDT Office Visit Cardiology, [facility] [address] [place] [address] Segun Cooley MD [address] [place] [address] 02/21/2024 9:30 AM EDT Office Visit Cardiology, [facility] [address] [place] [address] Aurelio Viera PA-C [address] [place] [address] 03/08/2024 10:00 AM EDT Cardiac Studies Cardiology, [facility] [address] [place] [address] [place] [address] [place] [address] 04/05/2024 1:00 PM EDT Office Visit [facility] [address] [place] [phone] Jason West MD [address] [place] [address] Health Maintenance Due Date Last Done Comments Hepatitis C Screening 1963 COVID-19 Vaccine ( season) 2023 05/26/2023, 05/26/2022, 07/23/2021, Additional history exists Albumin/Creatinine Ratio 10/03/202[address] 023, 08/28/2021, 11/18/2020, Additional history exists CKD PHOS USE SMARTSET 30134 10/03/2023 03/0 09/2022, 03/17/2021, 08/18/2019, Additional history exists DIG LEVEL FOR MEDICATION MONITORING YEARLY 03/08/2024 03/08/2023, 10/02/2022, 07/29/2021 GFR 06/18/2024 12/17/2023, 08/0 01/2023, 10/02/2022, Additional history exists HbA1c 06/18/2024 12/17/2023, 08/0 01/2023, 10/02/2022, Additional history exists Diabetic Eye Exam 11/01/2024 11/02/2023, , 04/07/2019, Additional history exists Diabetic Foot Exam 11/01/2024 11/02/2023, 0 03/17/2021, 12/27/2019, Additional history exists CKD HGB USE SMARTSET 89342 12/16/202412/16, 12/17/2023, 03/08/2023, Additional history exists DXA [...] Date/Time Associated Diagnosis Comments CARDIOLOGY SCANNED RESULT 12/31/2023 documented in this encounter Results * CARDIOLOGY SCANNED RESULT (12/31/2023) 12/31/2023 Tristian Vaca DO OTHER documented in this encounter Care Teams Smoke Eater Relationship Specialty Start Date End Date Jason West MD [address] [place] [address] PCP - General 02/06/03 documented as of this encounter
--- OUTSIDE RECORDS SUMMARY | 2024-02-23 02:51 | External Medical Summary | Summary of Care ---
Author Name Unknown Organization [facility] Address [address] [facility] [address] Phone [phone] Care Team Providers Care Shotblast Equipment Operator Name Role Phone Jason West MD Primary Care Provider [phone]- [phone] Reason for Visit * Reason Comments Follow Up Encounter Details Date Type Department Care Team (Late st Contact Info) Description 01/04/2024 2:25 PM EDT Office Visit Hematology/Oncology [facility] [place] [address] [facility] [place] [phone] Marquez Kolb MD [address] [facility] [place] [address] GE junction carcinoma (HCC)* Allergies Active Allergy Reactions Criticality Noted Date Comments Hydroxyzine Hcl 05/12/2012 halluzinating Cetirizine & Related 02/11/1999 HALLUCINATIONS documented as of this encounter (statuses as of 01/04/2024) Medications Medication Sig Dispensed Refills Start Date End Date Status MULTIVITAMIN/POUNCER AL FORMULA TABS OR 1 TABLET DAILY 0 0 12/02/2001 Active SYSTANE PRESERVATIVE FREE 0.4-0.3 % OP SOLNIndications:Ot her anterior corneal dystrophies 1 gtt OU q2h WA 1 box 6 12/03/2008 Active CALCIUM 5332-3322 MG-UNIT PO CHEW Take 1 Tablet by [...] 81 MG TBECIndications:Co ronary artery disease involving mary's igloo coronary artery of mary's igloo heart without angina pectoris Take 1 Tab by mouth daily. 30 Tab 11 07/17/2019 Active Loratadine 10 MG Oral Capsule Take 1 Capsule by mouth in the morning. Active Magnesium 400 MG Capsule Take 1 by mouth daily. 30 Cap 11 01/11/2020 Active acetaminophen (TYLENOL) 325 MG Tablet 2 Tablets. 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) INJECT 20 UNITS SUBCUTANEOUSLY TWICE DAILY 30 mL 2 07/08/2023 Active Digoxin 125 MCG Oral Tablet (Lanoxin)Indicatio ns:Chronic systolic heart failure (HCC),Coronary artery disease involving mary[place] ig[place] coronary artery of mary's igloo heart without angina pectoris Take 1 Tablet [...] Dyslipidemia 02/18/2018 Coronary artery disease invo lving mary's igloo coronary artery of mary's igloo heart without angina pectoris 12/10/2017 PAF (paroxysmal [...] mRNA, LNP-s, No Pre serve, 2-Dose Series ([employer]) 07/23/2021,11/14/2020,10/24/2020 COVID-19, MRNA-LNP, 23-24, P F, 30 MCG/0.3 mL, 12 YRS AND ABOVE, IM ([employer]-Comirnat) 05/26/2023 Covid-19, Mrna, Lnp-s, Pf, B ivalent, [...] Sign Reading Time Taken Comments Blood Pressure 134/76 01/04/2024 2:36 PM EDT Pulse 87 01/04/2024 2:36 PM EDT Temperature 37 C (98.6 F) 01/04/2024 2:36 PM EDT Respiratory Rate 16 01/04/2024 2:36 PM EDT Oxygen Saturation 94% 01/04/2024 2:36 PM EDT Inhaled Oxygen Concentration - - Weight 101.2 kg (223 lb) 01/04/2024 2:36 PM EDT Height - - Body Mass Index 39.5 12/17/2023 12:47 PM EDT documented in this encounter Progress Notes * Marquez Kolb MD - 01/04/2024 2:31 PM EDT Outpatient Consult Note Data Source: Patient, Epic record. Data Source: Patient, Epic record. 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 Current Treatment: For discussion Previous Treatment: none Oncologic History : 78-year-old female with complicated past medical history including coronary artery disease, hypertension, hyperlipidemia, AFib on Eliquis, type 2 diabetes, heart failure with preserved ejection fraction and overactive bladder referred with the about diagnosis. She was admitted to [facility] between 10/21/23 - 10/27/23. Presented to the [...] (MMRp). - HER2/solomon overexpression: Negative (score 0). [place] Mismatch Repair (MMR) Immunohistochemistry Panel Results: Mismatch repair proficient (MMRp). Immunohistochemistry: MLH1 Protein: Intact. PMS2 Protein: Intact. MSH2 Protein: Intact. MSH6 Protein: Intact. Interpretation: Intact expression of all four proteins (MLH1, MSH2, MSH6 and PMS2) is present. The immunohistochemistry findings are not consistent with microsatellite instability. FISH analysis shows no evidence of HER2 amplification and as such this is considered a NEGATIVE result. [employer] PD-L1 LDT: Detected Total PD-L1 Expression: 30 [...] diagnosed of brain tumor. Interval History: She was admitted to the hospital on 12/20/2023 to 12/25/2023 with generalized weakness and GI bleeding and low hemoglobin. She had endoscopy done which revealed small ulcerating mass with minimal bleeding at the GE junction. She received blood transfusion. She continues to complain generalized weakness and pain during eating. She was seen by the Radiation Oncology and planning for chemoradiation. Biopsy from the parotid lesions pending and she is still waiting to hear from the IR from [facility]. Luis Eduardoused to go to the [place] for biopsy. Eliquis was discontinued and currently she is on aspirin. LABS/IMAGING: Results for orders placed or performed in visit on 12/17/23 URINALYSIS, REFLEX TO MICROSCOPIC Result Value Ref Range Color, Urine Light Yellow Colorless, Light Yellow, Yellow, Dark Yellow Clarity, Urine Clear Clear Glucose, Urine Negative Negative mg/dL Bilirubin, Urine Negative Negative Ketone, Urine Negative Negative mg/dL Specific [place], Urine 1.016 1.003 - 1.030 Blood, Urine Negative Negative pH, Urine 6.0 5.0 - 7.5 Units Protein, Urine Negative Negative mg/dL Urobilinogen, Urine Normal Normal mg/dL Nitrite, Urine Negative Negative Esterase, Urine Moderate (A) Negative RBC, Urine 0-2 0 - 2 /HPF WBC, Urine 6-9 (A) 0 - 2 /HPF Bacteria, Urine 26-50 (A) 0 - 25 /HPF Hyaline, Cast, Urine 1-4 (A) None /LPF CULTURE, URINE, QUANTITATIVE Specimen: Urine, Clean Catch Result Value Ref Range Culture Growth No significant growth HEMOGLOBIN A1C Result Value Ref Range Hemoglobin A1C 6.5 (H) 4.0 - 5.6 % Estimated Average Glucose 140 (H) <126 mg/dL CREATININE Result Value Ref Range Creatinine 0.7 0.5 - 1.0 mg/dL Estimated Glomerular Filtration Rate 88 >=60 mL/min CBC Result Value Ref Range WBC 10.24 4.00 - 10.80 K/uL RBC 3.07 3.85 - 5.15 M/uL HGB 7.1 (L) 12.0 - 15.3 g/dL HCT 26.7 (L) 36.0 - 45.2 % MCV 87.0 81.5 - 97.5 fL MCH 23.1 27.0 - 34.0 pg MCHC 26.6 32.0 - 36.0 g/dL RDW 17.4 11.5 - 15.5 % PLT 478 (H) 140 - 400 K/uL MPV 10.1 6.6 - 11.1 fL nRBCs 0 <=0 /100 WBCs DIFFERENTIAL, AUTOMATED Result Value Ref Range WBC 10.24 4.00 - 10.80 K/uL Neutrophils % 71.9 40.0 - 75.0 % Lymphocytes % 18.2 18.0 - 42.0 % Monocytes % 6.9 1.0 - 11.0 % Eosinophils % 1.5 0.0 - 6.0 % Basophils % 1.0 0.0 - 2.0 % Immature Granulocytes % 0.5 0.0 - 2.0 % Absolute Neutrophils 7.37 1.80 - 7.70 K/uL Absolute Lymphocytes 1.86 1.00 - 4.80 K/ul Absolute Monocytes 0.71 0.00 - 1.10 K/uL Absolute Eosinophils 0.15 0.00 - 0.70 K/uL Absolute Basophils 0.10 0.00 - 0.20 K/uL Absolute Immature Granulocytes 0.05 0.00 - 0.20 K/uL TSH WITH FREE T4 IF INDICATED Result Value Ref Range TSH 1.07 0.27 - 4.20 uIU/mL VITAMIN B12 Result Value Ref Range Vitamin B12 665 232 - 1,245 pg/mL FERRITIN Result Value Ref Range Ferritin 20 13 - 150 ng/mL FOLIC ACID Result Value Ref Range Folic Acid >20.0 >4.5 ng/mL IRON SCREEN, INCLUDING TIBC Result Value Ref Range Iron 17 (L) 33 - 151 ug/dL Iron Binding Capacity 366 250 - 425 ug/dL Transferrin Saturation Percent 5 (L) 15 - 55 % RETICULOCYTE PANEL Result Value Ref Range Reticulocyte Percent 4.42 (H) 0.80 - 1.90 % Absolute Reticulocyte 130.4 (H) 31.3 - 100.1 K/uL Immature Reticuloctye Fraction 29.9 (H) 2.5 - 20.6 % Reticulocyte Hemoglobin 19.9 (L) 29.7 - 37.4 pg *Note: Due to a large number of results and/or encounters for the requested time period, some results have not been displayed. A complete set of results can be found in Results Review. Hemoglobin was 9.2 on 12/25/2023 at the time of discharge from the hospital REVIEW OF SYSTEMS: General: No Fever, chills, night sweats, or weight loss. HEENT: No change in visual acuity, blurred or double vision. No epistaxis, facial pain, nasal discharge or change in hearing. Denies dysphagia, no muscosal ulceration, or sores noted. Cardiovascular: No chest pain, BROWN, or palpitations Respiratory: No shortness of breath, cough, hemoptysis, or pleuritic chest pain Gastrointestinal: Complain abdominal pain, nausea, No vomiting, diarrhea, rectal pain or bleeding Genitourinary: Denies Hematuria or dysuria Musculoskeletal: Generalized weak Psychiatric: No vegetative signs of depression Endocrine: [...] OU q2h WA 1 box 6 CALCIUM 3368-2533 MG-UNIT PO CHEW Take 1 Tablet by [...] COVID-19 mRNA Vaccine 12 years and above [employer] 30 MCG/0.3 ML IM SUSP Inject into [...] week for 4 weeks. 120 mL 1 glipiZIDE 5 MG Oral Tablet (Glucotrol) Take [...] mismatch repair proficient and HER2 Solomon negative. LII5ugltyjwnck was 30 CPS. Endo sonographic ultrasound revealed T3 N 0 disease. 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 She was recently admitted to hospital with generalized weakness and anemia and bleeding. She received blood transfusion and now she is better. She continues to be pain in the stomach. Biopsy from the blood clot is still pending. Again discussed with the patient about diagnosis and reviewed all the available blood tests and pathology reports with her. 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 She will benefit with the weekly Taxol carboplatin concurrent with radiation therapy. Discussed with the patient in detail about diagnosis, prognosis, benefit, risk, side effects, toxicity and the rationale of the combination treatment. After detail discussion she agreed to proceed with treatment and signed the consent form. PLAN: She will be treated with Taxol plus carboplatin concurrent with radiation therapy. She will return clinic for 1 week after receiving 1st dose of chemotherapy. The patient voiced understanding of all of [...] Notes * Annie Paz MED ASSIST - 01/04/2024 2:40 PM EDT Patient identifed by name and birthdate Do you have any concerns about pain management for today's visit? Yes. Patient instructed to discuss pain concerns with provider during the visit today Living Will or Advance Directive for Health Care as noted on the problem list. [facility] is a way you can talk to your provider on line through e-mail. Would you like to sign up? I can activate it for you? ALREADY ACTIVE Filed Vitals: 01/04/24 1436 BP: 134/76 Pulse: 87 Resp: 16 Temp: 37 C (98.6 F) TempSrc: Tympanic SpO2: 94% Weight: 101.2 kg (223 lb) Patient was instructed to not get [...] documented in this encounter Miscellaneous Notes * Oncology Pathways Update - Marquez Kolb MD - 01/04/2024 2:50 PM EDT START ON PATHWAY REGIMEN - Gastroesophageal [id number]: Carboplatin + Paclitaxel (2/50) Weekly (x 5-6 Weeks) with Concurrent RT A cycle is every 7 days, concurrent with RT: Paclitaxel 50 mg/m IV once on day 1 Carboplatin AUC=2 IV once on day 1 Always confirm dose/schedule in your pharmacy ordering system Citations: -neo Monson, Lior GRAY, et al. Neoadjuvant chemoradiotherapy plus surgery versus surgery alone for oesophageal or junctional cancer (CROSS): long-term results of a randomised controlled trial. Lancet Oncol. 2015;16(9):1090- 8. URL: http://www.ncbi.nlm.nih.gov/pubmed/08408860 -Lior Prado MC, van Lanschott JJ, et al. Preoperative chemoradiotherapy for esophageal orjunctional cancer. N Engl J Med. 2012;366(23):2874-57. URL: http://www.ncbi.nlm.nih.gov/pubmed/24897521 Patient Characteristics: Esophageal & GE Junction, Adenocarcinoma, Preoperative or Nonsurgical Candidate, M0 (Clinical Staging), cT2 or Higher or cN+, Surgical Candidate (Up to cT4a), GE Junction, ELEAZAR/pMMR or MSI Unknown Therapeutic Status: Preoperative or Nonsurgical Candidate, M0 (Clinical Staging) Histology: Adenocarcinoma Disease Classification: GE Junction AJCC Grade: G3 AJCC 8 Stage Grouping: Unknown AJCC T Category: cT3 AJCC N Category: cNX AJCC M Category: cM0 Microsatellite/Mismatch Repair Status: ELEAZAR/pMMR Intent of Therapy: Curative Intent, Discussed with Patient * Oncology Pathways Notification - Marquez Kolb MD - 01/04/2024 2:50 PM EDT A new patient decision has been made in [facility]. Details of this patient have been provided below: Patient Information: Name: ISIDRO MURPHY : 1945 Provider Name: Marquez Kolb Disease: Gastroesophageal Pathway Followed: Gastroesophageal, Esophageal & GE Junction, Adenocarcinoma, Preoperative or Nonsurgical Candidate, M0 (Clinical Staging), cT2 or Higher or cN+, Surgical Candidate (Up to cT4a), GE Junction, ELEAZAR/pMMR or MSI Unknown Patient Characteristics: Esophageal & GE Junction, Adenocarcinoma, Preoperative or Nonsurgical Candidate, M0 (Clinical Staging), cT2 or Higher or cN+, Surgical Candidate (Up to cT4a), GE Junction, ELEAZAR/pMMR or MSI Unknown Therapeutic Status: Preoperative or Nonsurgical Candidate, M0 (Clinical Staging) Histology: Adenocarcinoma Disease Classification: GE Junction AJCC Grade: G3 AJCC 8 Stage Grouping: Unknown AJCC T Category: cT3 AJCC N Category: cNX AJCC M Category: cM0 Microsatellite/Mismatch Repair Status: ELEAZAR/pMMR Intent of Therapy: Curative Intent, Discussed with PatientTreatment Details: START ON PATHWAY REGIMEN [id number]: Carboplatin + Paclitaxel (2/50) Weekly (x 5-6 Weeks) with Concurrent RT A cycle is every 7 days, concurrent with RT: Paclitaxel 50 mg/m IV once on day 1 Carboplatin AUC=2 IV once on day 1 Always confirm dose/schedule in your pharmacy ordering system Citations: -neo Monson, Lior GRAY, et al. Neoadjuvant chemoradiotherapy plus surgery versus surgery alone for oesophageal or junctional cancer (CROSS): long-term results of a randomised controlled trial. Lancet Oncol. 2015;16(9):1090- 8. URL: http://www.ncbi.nlm.nih.gov/pubmed/44708562 -neo Curry, Lior GRAY, neo UCELLAR, et al. Preoperative chemoradiotherapy for esophageal orjunctional cancer. N Engl J Med. 2012;366(22):2074-84. URL: http://www.ncbi.nlm.nih.gov/pubmed/06049321 documented in this encounter Plan of Treatment Upcoming Encounters Date Type Department Care Team (Late st Contact Info) Description 01/05/2024 11:20 AM EDT Office Visit [facility] [address] [place] [phone] Jason West MD [address] [place] [address] 01/11/2024 1:45 PM EDT Nurse Only Hematology/Oncology [facility] [address] [facility] [place] [phone] Jeny, Nurse Hem Onc [facility] [address] [facility] [place] [address] 01/26/2024 10:00 AM EDT Office Visit Cardiology, [facility] [address] [address] [address] Segun Cooley MD [address] [place] [address] 02/21/2024 9:30 AM EDT Office Visit Cardiology, [facility] [address] [place] [address] Aurelio Viera PA-C [address] [place] [address] 03/08/2024 10:00 AM EDT Cardiac Studies Cardiology, [facility] [address] [place] [address] Del[address] [facility] [address] [place] [address] 04/05/2024 1:00 PM EDT Office Visit [facility] [address] [place] [phone] Jason West MD [address] [place] [address] Health Maintenance Due Date Last Done Comments Hepatitis C Screening 1963 COVID-19 Vaccine ( season) 2023 05/26/2023, 05/26/2022, 07/23/2021, Additional history exists Albumin/Creatinine Ratio 10/03/20232 023, 08/28/2021, 11/18/2020, Additional history exists CKD PHOS USE SMARTSET 42790 10/03/2023 03/0 09/2022, 03/17/2021, 08/18/2019, Additional history exists DIG LEVEL FOR MEDICATION MONITORING YEARLY 03/08/2024 03/08/2023, 10/02/2022, 07/29/2021 GFR 06/18/2024 12/17/2023, 080 01/2023, 10/02/2022, Additional history exists HbA1c 06/18/2024 12/17/2023, 080 01/2023, 10/02/2022, Additional history exists Diabetic Eye Exam 11/01/2024 11/02/2023, , 04/07/2019, Additional history exists Diabetic Foot Exam 11/01/2024 11/02/2023, 0 03/17/2021, 12/27/2019, Additional history exists CKD HGB USE SMARTSET 96431 12/16/202412/16, 12/17/2023, 03/08/2023, Additional history exists DXA [...] cardia documented in this encounter Care Teams Shotblast Equipment Operator Relationship Specialty Start Date End Date Jason West MD [address] [place] [address] PCP - General 02/06/03 documented as of this encounter
--- OUTSIDE RECORDS SUMMARY | 2024-02-23 02:51 | External Medical Summary | Summary of Care ---
Author Name Unknown Organization [facility] Address [address] [facility] [address] Phone [phone] Care Team Providers Care Reinstatement Clerk Name Role Phone Jason West MD Primary Care Provider [phone]- [phone] Reason for Visit * Reason Onset Date Comments Precert Future 01/04/2024 Carbo/Taxol Encounter Details Date Type Department Care Team (Late st Contact Info) Description 01/04/2024 Telephone Hematology/Oncology [facility] [place] [address] [place] [address] Maqruez Kolb MD [address] [place] [address] Precert Future (Carbo/Taxol) Allergies Active Allergy Reactions Criticality Noted Date Comments Hydroxyzine Hcl 05/12/2012 halluzinating Cetirizine & Related 02/11/1999 HALLUCINATIONS documented as of this encounter (statuses as of 01/04/2024) Medications Medication Sig Dispensed Refills Start Date End Date Status MULTIVITAMIN/OUTREACH MANAGER AL FORMULA TABS OR 1 TABLET DAILY 0 0 12/02/2001 Active SYSTANE PRESERVATIVE FREE 0.4-0.3 % OP SOLNIndications:Ot her anterior corneal dystrophies 1 gtt OU q2h WA 1 box 6 12/03/2008 Active CALCIUM 8448-5479 MG-UNIT PO CHEW Take 1 Tablet by [...] systolic heart failure (HCC),Coronary artery disease involving [place] coronary artery of [...] mRNA, LNP-s, No Pre serve, 2-Dose Series ([employer]) 07/23/2021,11/14/2020,10/24/2020 COVID-19, MRNA-LNP, 23-24, P F, 30 MCG/0.3 mL, 12 YRS AND ABOVE, IM (CytoPherx-Comirnat) 05/26/2023 Covid-19, Mrna, Lnp-s, Pf, B ivalent, [...] Telephone Encounter - Zeyad Hernandez, RN - 01/04/2024 3:08 PM EDT Orders [...] Description 01/05/2024 11:20 AM EDT Office Visit [facility] [address] [place] [facility] [place] [phone] Jason West MD [address] [place] [address] 01/11/2024 1:45 PM EDT Nurse Only Hematology/Oncology [facility] [address] [facility] [place] [phone] Jeny, Nurse Hem Onc [facility] [address] [facility] [place] [address] 01/26/2024 10:00 AM EDT Office Visit Cardiology, [facility] [address] [place] [address] Segun Cooley MD [address] [place] [address] 02/21/2024 9:30 AM EDT Office Visit Cardiology [facility] [address] [place] [address] Aurelio Viera, PA-C [address] [place] [address] 03/08/2024 10:00 AM EDT Cardiac Studies Cardiology, [facility] [address] [place] [address] [address] [address] [place] [address] 04/05/2024 1:00 PM EDT Office Visit [facility] [address] [place] [facility] [place] [phone] Jason West MD [address] [place] [facility] [place] [address] Scheduled Orders Name Type Priority Associated Diagnoses [...] Additional history exists CKD PHOS USE SMARTSET 88195 10/03/2023 03/0 09/2022, 03/17/2021, 08/18/2019, Additional history exists DIG LEVEL FOR MEDICATION MONITORING YEARLY 03/08/2024 03/08/2023, 10/02/2022, 07/29/2021 GFR 06/18/2024 12/17/2023, 08/0 01/2023, 10/02/2022, Additional history exists HbA1c 06/18/2024 12/17/2023, 08/0 01/2023, 10/02/2022, Additional history exists Diabetic Eye Exam 11/01/2024 11/02/2023, , 04/07/2019, Additional history exists Diabetic Foot Exam 11/01/2024 11/02/2023, 0 03/17/2021, 12/27/2019, Additional history exists CKD HGB USE SMARTSET 89341 12/16/202412/16, 12/17/2023, 03/08/2023, Additional history exists DXA [...] cardia documented in this encounter Care Teams Reinstatement Clerk Relationship Specialty Start Date End Date Jason West MD [address] [place] [address] PCP - General 02/06/03 documented as of this encounter
--- OUTSIDE RECORDS SUMMARY | 2024-02-23 02:51 | External Medical Summary | Summary of Care ---
Author Name Unknown Organization [facility] Address [address] [facility] [address] Phone [phone] Care Team Providers Care Electric Motors Salesperson Name Role Phone Jason West MD Primary Care Provider +1- [phone] Reason for Visit * Reason Onset Date Comments Precert Future 01/04/2024 Carbo/Taxol Encounter Details Date Type Department Care Team (Late st Contact Info) Description 01/04/2024 Telephone Hematology/Oncology [facility] [place] [address] [place] [address] Marquez Kolb MD 200 [place] [address] Precert Future (Carbo/Taxol) Allergies Active Allergy Reactions Criticality Noted Date Comments Hydroxyzine Hcl 05/12/2012 halluzinating Cetirizine & Related 02/11/1999 HALLUCINATIONS documented as of this encounter (statuses as of 01/04/2024) Medications Medication Sig Dispensed Refills Start Date End Date Status MULTIVITAMIN/GUT PULLER AL FORMULA TABS OR 1 TABLET DAILY 0 0 12/02/2001 Active SYSTANE PRESERVATIVE FREE 0.4-0.3 % OP SOLNIndications:Ot her anterior corneal dystrophies 1 gtt OU q2h [place] 1 box 6 12/03/2008 Active CALCIUM 8544-7947 MG-UNIT PO CHEW Take 1 Tablet by mouth in the morning. Active Cinnamon 500 MG Capsule Take 2 Capsules by mouth in the morning. Active ONETOUCH ULTRASOFT LANCETS MISCIndications:DM type 2 causing renal disease ([facility]) Use as directed daily. Use up to four times a day as directed. Dx E11.9 3 Box Dosing Unit 3 09/13/2018 Active aspirin enteric coated 81 MG TBECIndications:Co ronary artery disease involving ute coronary artery of ute heart without angina pectoris Take 1 Tab by mouth daily. 30 Tab 11 07/17/2019 Active Loratadine 10 MG Oral Capsule Take 1 Capsule by mouth in the morning. Active Magnesium 400 MG Capsule Take 1 by mouth daily. 30 Cap 11 01/11/2020 Active acetaminophen (TYLENOL) 325 MG Tablet 2 Tablets. 04/13/2020 Active Nitroglycerin 0.4 MG Sublingual Tablet Sublingual (Nitrostat)Indicat ions:Coronary artery disease involving ute coronary artery of ute heart without angina pectoris,Old [place] (myocardial infarction) [...] Oral Tablet (Lipitor)Indicatio ns:Coronary artery disease involving ute coronary artery of ute heart without angina pectoris,Dyslipide mona TAKE 1 [...] systolic heart failure (HCC),Coronary artery disease involving ute coronary artery of ute heart without angina pectoris Take 1 Tablet [...] Dyslipidemia 02/18/2018 Coronary artery disease invo lving ute coronary artery of ute heart without angina pectoris 12/10/2017 PAF (paroxysmal [...] mRNA, LNP-s, No Pre serve, 2-Dose Series ([employer]) 07/23/2021,11/14/2020,10/24/2020 COVID-19, MRNA-LNP, 23-24, P F, 30 MCG/0.3 mL, 12 YRS AND ABOVE, IM ([employer]ir[employer]) 05/26/2023 Covid-19, Mrna, Lnp-s, Pf, B ivalent, [...] Description 01/05/2024 11:20 AM EDT Office Visit [facility] [address] [place] [facility] [place] [address] Jason West MD [address] [place] [address] 01/11/2024 1:45 PM EDT Nurse Only Hematology/Oncology [facility] [address] [facility] [place] [address] [place], Nurse Hem Onc [facility] [address] [facility] [place] [address] 01/26/2024 10:00 AM EDT Office Visit Cardiology, [facility] [address] [place] [address] Segun Cooley MD [address] [place] [address] 02/21/2024 9:30 AM EDT Office Visit Cardiology [facility] [address] [place] [address] Aurelio Viera, PA-C [address] [place] [address] 03/08/2024 10:00 AM EDT Cardiac Studies Cardiology, [facility] [address] [place] [address] [facility] [address] [place] [address] 04/05/2024 1:00 PM EDT Office Visit [facility] [address] [place] [facility] [place] [phone] Jason West MD [address] [place] [place] [address] Scheduled Orders Name Type Priority Associated [...] Additional history exists CKD PHOS USE SMARTSET 11416 10/03/2023 03/0 09/2022, 03/17/2021, 08/18/2019, Additional history exists DIG LEVEL FOR MEDICATION MONITORING YEARLY 03/08/2024 03/08/2023, 10/02/2022, 07/29/2021 GFR 06/18/2024 12/17/2023, 08/0 01/2023, 10/02/2022, Additional history exists HbA1c 06/18/2024 12/17/2023, 08/0 01/2023, 10/02/2022, Additional history exists Diabetic Eye Exam 11/01/2024 11/02/2023, , 04/07/2019, Additional history exists Diabetic Foot Exam 11/01/2024 11/02/2023, 0 03/17/2021, 12/27/2019, Additional history exists CKD HGB USE SMARTSET 61222 12/16/202412/16, 12/17/2023, 03/08/2023, Additional history exists DXA [...] cardia documented in this encounter Care Teams Electric Motors Salesperson Relationship Specialty Start Date End Date Jason West MD [address] [place] [address] PCP - General 02/06/03 documented as of this encounter
--- OUTSIDE RECORDS SUMMARY | 2024-02-23 02:52 | External Medical Summary | Summary of Care ---
Author Name Unknown Organization [facility] Address [address] [place] [facility] [place] [place] [address] Phone [phone] Care Team Providers Care Dumpling Machine Operator Name Role Phone Jason West MD Primary Care Provider +1- [phone] Reason for Visit * Reason Onset Date Comments Information 12/20/2023 Encounter Details Date Type Department Care Team (Late st Contact Info) Description 12/20/2023 Telephone Hematology/Oncology Treatment, [place] [address] [place] [address] Marquez Kolb MD 200 [place] [address] Information Allergies Active Allergy Reactions Criticality Noted Date Comments Hydroxyzine Hcl 05/12/2012 halluzinating Cetirizine & Related 02/11/1999 HALLUCINATIONS documented as of this encounter (statuses as of 12/21/2023) Medications Medication Sig Dispensed Refills Start Date End Date Status MULTIVITAMIN/VIBRATION ANALYST AL FORMULA TABS OR 1 TABLET DAILY 0 0 12/02/2001 Active SYSTANE PRESERVATIVE FREE 0.4-0.3 % OP SOLNIndications:Ot her anterior corneal dystrophies 1 gtt OU q2h WA 1 box 6 12/03/2008 Active CALCIUM 7386-6649 MG-UNIT PO CHEW Take 1 Tablet by mouth in the morning. Active Cinnamon 500 MG Capsule Take 2 Capsules by mouth in the morning. Active ONETOUCH ULTRASOFT LANCETS MISCIndications:DM type 2 causing renal disease ([facility]) Use as directed daily. Use up to four times a day as directed. Dx E11.9 3 Box Dosing Unit 3 09/13/2018 Active aspirin enteric coated 81 MG TBECIndications:Co ronary artery disease involving kaw coronary artery of kaw heart without angina pectoris Take 1 Tab by mouth daily. 30 Tab 11 07/17/2019 Active Loratadine 10 MG Oral Capsule Take 1 Capsule by mouth in the morning. Active Magnesium 400 MG Capsule Take 1 by mouth daily. 30 Cap 11 01/11/2020 Active acetaminophen (TYLENOL) 325 MG Tablet 2 Tablets. 04/13/2020 Active Nitroglycerin 0.4 MG Sublingual Tablet Sublingual (Nitrostat)Indicat ions:Coronary artery disease involving kaw coronary artery of kaw heart without angina pectoris,Old [place] (myocardial infarction) Place 1 Tablet under the tongue every 5 minutes as needed for Pain, Chest. 25 Tablet 5 09/03/2022 Active Apixaban 5 MG Oral Tablet (Eliquis)Indicatio ns:PAF (paroxysmal atrial fibrillation) ([facility]) Take 1 Tablet by mouth in the morning and 1 Tablet before bedtime. 180 Tablet 3 01/01/2023 Active Midodrine HCl 5 MG Oral Tablet (Proamatine)Indica tions:Chronic systolic heart failure (HCC),Coronary artery disease involving kaw coronary artery of kaw heart without angina pectoris TAKE 1 TAB BY MOUTH SHORTLY BEFORE OR UPON RISING IN THE MORNING, AT MIDDAY, AND IN THE LATE AFTERNOON (NO LATER THAN 6PM) 270 Tablet 3 03/25/2023 Active Insulin Pen Needle 32G X 5 MMIndications:DM type 2 causing renal disease, not at goal ([facility]) use to inject lantus twice per day 200 Each 3 03/26/2023 Active OneTouch Verio In Vitro Strip (Glucose Blood)Indications: DM type 2 causing renal disease ([facility]) Check blood sugars one time daily. Dx E11.9 300 Strip 2 05/03/2023 Active Atorvastatin Calcium 40 MG Oral Tablet (Lipitor)Indicatio ns:Coronary artery disease involving kaw coronary artery of kaw heart without angina pectoris,Dyslipide mona TAKE 1 TABLET DAILY IN THE MORNING 90 Tablet 3 05/27/2023 Active Insulin Glargine Solostar 100 UNIT/ML Subcutaneous Solution Pen-injector (Lantus SoloStar)Indicatio ns:DM type 2 causing renal disease, 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) INJECT 20 UNITS SUBCUTANEOUSLY TWICE DAILY 30 mL 2 07/08/2023 Active Digoxin 125 MCG Oral Tablet (Lanoxin)Indicatio ns:Chronic systolic heart failure (HCC),Coronary artery disease involving kaw coronary artery of kaw heart without angina pectoris Take 1 Tablet [...] as of this encounter (statuses as of 12/21/2023) Active Problems Problem Noted Date Diagnosed Date [...] Dyslipidemia 02/18/2018 Coronary artery disease invo lving kaw coronary artery of kaw heart without angina pectoris 12/10/2017 PAF (paroxysmal atrial fibrillation) 12/10/2017 Type 2 diabetes mellitus wit h hemoglobin A1c goal of less than 8.0% 09/08/2013 Overview: ICD-10 update of inactive term DJD, CERVICAL SPINE 04/12/2002 GENERAL OSTEOARTHROSIS documented as of this encounter (statuses as of 12/21/2023) Resolved Problems Problem Noted Date Diagnosed Date [...] as of this encounter (statuses as of 12/21/2023) Immunizations Name Administration Dates Next Due COVID-19 mRNA, LNP-s, No Pre serve, 2-Dose Series ([employer]) 07/23/2021,11/14/2020,10/24/2020 COVID-19, MRNA-LNP, 23-24, P F, 30 MCG/0.3 mL, 12 YRS AND ABOVE, IM ([employer]) 05/26/2023 Covid-19, Mrna, Lnp-s, Pf, B ivalent, 30 Mcg, IM, 12 yrs and above ([employer]) 05/26/2022 Diptheria/Tetanus (Adult) 05/02/1992 Pneumococcal Conjugate Vacc, [...] Telephone Encounter - Delmy Beal RN - 12/21/2023 8:50 AM EDT Patient admitted. * Telephone Encounter - Delmy Beal RN - 12/20/2023 4:[address] Kolb forwarded message from Aurelio Viera re: lab results. Hgb 7.1 on 12/17/23- see cardiology result note. Called patient to see how she is feeling/ assess for outpatient transfusion. She states that the last week or so she has been progressively weaker. Not able to move around much, cannot walk more than4-5 feet without stopping to rest due to SOB with any activity. Denies CP. Advised patient that due to progressive symptoms, would recommend going to ER for transfusion. Patient agreeable, will call her sister in law to bring her, if her sister in law cannot bring her she is agreeable to calling EMS to bring her. Called [facility] ER and spoke to Sasha Perdue to make them aware patient is coming. Dr Kolb/ Aurelio Viera: FYI documented in this encounter Plan of Treatment Upcoming Encounters Date Type Department Care Team (Late st Contact Info) Description 01/04/2024 2:25 PM EDT Office Visit Hematology/Oncology [facility] [place] [address] [place] [phone] Marquez Kolb MD [address] [place] [address] 02/21/2024 9:30 AM EDT Office Visit Cardiology, [facility] [address] [place] [address] Aurelio Viera PA-C [address] [place] [address] 03/08/2024 10:00 AM EDT Cardiac Studies Cardiology, [facility] [address] [place] [address] [facility] [address] [place] [address] 04/05/2024 1:00 PM EDT Office Visit [facility] [address] [place] [phone] Jason West MD [address] [place] [address] Health Maintenance Due Date Last Done Comments Hepatitis C Screening 1963 COVID-19 Vaccine (2022- season) 2023 05/26/2023, 05/26/2022, 07/23/2021, Additional history exists Albumin/Creatinine Ratio 10/03/2023 023, 08/28/2021, 11/18/2020, Additional history exists CKD PHOS USE SMARTSET 44732 10/03/2023 03/0 09/2022, 03/17/2021, 08/18/2019, Additional history exists DIG LEVEL FOR MEDICATION MONITORING YEARLY 03/08/2024 03/08/2023, 10/02/2022, 07/29/2021 GFR 06/18/2024 12/17/2023, 08/0 01/2023, 10/02/2022, Additional history exists HbA1c 06/18/2024 12/17/2023, 08/0 01/2023, 10/02/2022, Additional history exists Diabetic Eye Exam 11/01/2024 11/02/2023, , 04/07/2019, Additional history exists Diabetic Foot Exam 11/01/2024 11/02/2023, 0 03/17/2021, 12/27/2019, Additional history exists CKD HGB USE SMARTSET 18258 12/16/202412/16, 12/17/2023, 03/08/2023, Additional history exists DXA [...] filedocumented as of this encounter Care Teams Dumpling Machine Operator Relationship Specialty Start Date End Date Jason West MD [address] [place] [address] PCP - General 02/06/03 documented as of this encounter
--- OUTSIDE RECORDS SUMMARY | 2024-02-23 02:52 | External Medical Summary | Summary of Care ---
Author Name Unknown Organization [facility] Address [address] [facility] [address] Phone [phone] Care Team Providers Care Mechanical Estimator Name Role Phone Jason West MD Primary Care Provider +1- [phone] Reason for Visit * Reason Onset Date Comments Scheduling 12/21/2023 Encounter Details Date Type Department Care Team (Late st Contact Info) Description 12/21/2023 Telephone [facility]olaryngology [facility] [address] [facility] [place] [address] Raymon Lord PA-C 132 [facility] [place] [address] Scheduling Allergies Active Allergy Reactions Criticality Noted [...] WA 1 box 6 12/03/2008 Active CALCIUM 6692-3429 MG-UNIT PO CHEW Take 1 Tablet by [...] of [place] heart without angina pectoris,Old [place] (myocardial infarction) [...] systolic heart failure (HCC),Coronary artery disease involving [place] coronary artery of [place] heart without angina pectoris TAKE 1 [...] systolic heart failure (HCC),Coronary artery disease involving [place] coronary artery [...] mRNA, LNP-s, No Pre serve, 2-Dose Series ([employer]) 07/23/2021,11/14/2020,10/24/2020 COVID-19, MRNA-LNP, 23-24, P F, 30 MCG/0.3 mL, 12 YRS AND ABOVE, IM ([employer]-Comirnaty) 05/26/2023 Covid-19, Mrna, Lnp-s, Pf, B ivalent, [...] encounter Miscellaneous Notes * Telephone Encounter - Peg Armando OSA - 12/21/2023 1:44 PM EDT Called patient to schedule Us Bilateral Parotid mass Biopsy. No answer. Left message for patient toreturn call. documented in this encounter Plan of Treatment Upcoming Encounters Date Type Department Care Team (Late st Contact Info) Description 01/04/2024 2:25 PM EDT Office Visit Hematology/Oncology [facility] [place] [address] [place] [phone] Marquez Kolb MD [address] [place], [place] [address] 02/21/2024 9:30 AM EDT Office Visit [facility]iology, [facility] [address] [facility] [address] Aurelio Viera PA-C [address] [facility] [place] [place] [address] 03/08/2024 10:00 AM EDT Cardiac Studies Cardiology, [facility] [address] [facility] [address] [facility] [address] [facility] [address] 04/05/2024 1:00 PM EDT Office Visit [facility] [address] [place] [phone] Jason West MD [address] [place], [place] [address] Health Maintenance Due Date Last Done Comments Hepatitis C Screening 1963 COVID-19 Vaccine ( season) 2023 05/26/2023, 05/26/2022, 07/23/2021, Additional history exists Albumin/Creatinine Ratio 10/03/202[address] 023, 08/28/2021, 11/18/2020, Additional history exists CKD PHOS USE SMARTSET 49993 10/03/2023 0309/2022, 03/17/2021, 08/18/2019, Additional history exists DIG LEVEL FOR MEDICATION MONITORING YEARLY 03/08/2024 03/08/2023, 10/02/2022, 07/29/2021 GFR 06/18/2024 12/17/2023, 0801/2023, 10/02/2022, Additional history exists HbA1c 06/18/2024 12/17/2023, 08/0 01/2023, 10/02/2022, Additional history exists Diabetic Eye Exam 11/01/2024 11/02/2023, , 04/07/2019, Additional history exists Diabetic Foot Exam 11/01/2024 11/02/2023, 0 03/17/2021, 12/27/2019, Additional history exists CKD HGB USE SMARTSET 91229 12/16/202412/16, 12/17/2023, 03/08/2023, Additional history exists DXA [...] filedocumented as of this encounter Care Teams Mechanical Estimator Relationship Specialty Start Date End Date Jason West MD [address] [place] [address] PCP - General 02/06/03 documented as of this encounter
--- OUTSIDE RECORDS SUMMARY | 2024-02-23 02:52 | External Medical Summary | Summary of Care ---
Author Name Unknown Organization [facility] Address [address] [facility] [place] [address] Phone [phone] Care Team Providers Care Lathe Sander Name Role Phone Jason West MD Primary Care Provider +1- [phone] Reason for Visit * Reason Onset Date Comments Information 12/20/2023 Encounter Details Date Type Department Care Team (Late st Contact Info) Description 12/20/2023 Telephone Hematology/Oncology Treatment, [place] [address] [place] [address] Marquez Kolb MD [address] [place] [address] Information Allergies Active Allergy Reactions Criticality Noted Date Comments Hydroxyzine Hcl 05/12/2012 halluzinating Cetirizine & Related 02/11/1999 HALLUCINATIONS documented as of this encounter (statuses as of 12/20/2023) Medications Medication Sig Dispensed Refills Start Date End Date Status MULTIVITAMIN/ELECTRICAL MAINTENANCE MAN AL FORMULA TABS OR 1 TABLET DAILY 0 0 12/02/2001 Active SYSTANE PRESERVATIVE FREE 0.4-0.3 % OP SOLNIndications:Ot her anterior corneal dystrophies 1 gtt OU q2h WA 1 box 6 12/03/2008 Active CALCIUM 2467-2251 MG-UNIT PO CHEW Take 1 Tablet by mouth in the morning. Active Cinnamon 500 MG Capsule Take 2 Capsules by mouth in the morning. Active ONETOUCH ULTRASOFT LANCETS MISCIndications:DM type 2 causing renal disease ([facility]) Use as directed daily. Use [...] of [place] heart without angina pectoris,Old [place] (myocardial infarction) Place 1 Tablet under the tongue every 5 minutes as needed for Pain, Chest. 25 Tablet 5 09/03/2022 Active Apixaban 5 MG Oral Tablet (Eliquis)Indicatio ns:PAF (paroxysmal atrial fibrillation) ([facility]) Take 1 Tablet by mouth in the morning and 1 Tablet before bedtime. 180 Tablet 3 01/01/2023 Active Midodrine HCl 5 MG Oral Tablet (Proamatine)Indica tions:Chronic systolic heart failure (HCC),Coronary artery disease involving [place] coronary artery of [place] heart without angina pectoris TAKE 1 [...] mRNA, LNP-s, No Pre serve, 2-Dose Series ([employer]) 07/23/2021,11/14/2020,10/24/2020 COVID-19, MRNA-LNP, 23-24, P F, 30 MCG/0.3 mL, 12 YRS AND ABOVE, IM ([employer]-Comirnat) 05/26/2023 Covid-19, Mrna, Lnp-s, Pf, B ivalent, [...] to calling EMS to bring her. Called [facility] ER and spoke to Sasha Perdue to make them aware patient is coming. Dr Kolb/ Aurelio Viera: FYI documented in this encounter Plan of Treatment Upcoming Encounters Date Type Department Care Team (Late st Contact Info) Description 01/04/2024 2:25 PM EDT Office Visit Hematology/Oncology [facility] [address] [place] [phone] Marquez Kolb MD [address] [place] [address] 02/21/2024 9:30 AM EDT Office Visit Cardiology, [facility] [address] [facility] [place] [address] Aurelio Viera PA-C [address] [place] [address] 03/08/2024 10:00 AM EDT Cardiac Studies Cardiology, [facility] [address] [place] [address] [place] [address] [facility] [place] [address] 04/05/2024 1:00 PM EDT Office Visit [facility] [address] [facility] [phone] Jason West MD [address] [facility] [address] Health Maintenance Due Date Last Done Comments Hepatitis C Screening 1963 COVID-19 Vaccine (2022- season) 2023 05/26/2023, 05/26/2022, 07/23/2021, Additional history exists Albumin/Creatinine Ratio 10/03/2023 023, 08/28/2021, 11/18/2020, Additional history exists CKD PHOS USE SMARTSET 11137 10/03/2023 03/0 09/2022, 03/17/2021, 08/18/2019, Additional history exists DIG LEVEL FOR MEDICATION MONITORING YEARLY 03/08/2024 03/08/2023, 10/02/2022, 07/29/2021 GFR 06/18/2024 12/17/2023, 08/0 01/2023, 10/02/2022, Additional history exists HbA1c 06/18/2024 12/17/2023, 08/0 01/2023, 10/02/2022, Additional history exists Diabetic Eye Exam 11/01/2024 11/02/2023, , 04/07/2019, Additional history exists Diabetic Foot Exam 11/01/2024 11/02/2023, 0 03/17/2021, 12/27/2019, Additional history exists CKD HGB USE SMARTSET 82509 12/16/202412/16, 12/17/2023, 03/08/2023, Additional history exists DXA [...] filedocumented as of this encounter Care Teams Lathe Sander Relationship Specialty Start Date End Date Jason West MD [address] [place] [address] PCP - General 02/06/03 documented as of this encounter
--- OUTSIDE RECORDS SUMMARY | 2024-02-23 02:52 | External Medical Summary | Summary of Care ---
Author Name Unknown Organization [facility] Address [address] [facility] [address] Phone [phone] Care Team Providers Care Animal Attendants And Trainers Name Role Phone Jason West MD Primary Care Provider [phone] Reason for Visit * Reason Onset Date Comments Scheduling 12/28/2023 Encounter Details Date Type Department Care Team (Late st Contact Info) Description 12/28/2023 Telephone Otol[facility]ology [facility] [address] 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 30 Tab 11 07/17/2019 Active Loratadine 10 MG Oral Capsule Take 1 Capsule by mouth in the morning. Active Magnesium 400 MG Capsule Take 1 by mouth daily. 30 Cap 11 01/11/2020 Active acetaminophen (TYLENOL) 325 MG Tablet 2 Tablets. 04/13/2020 Active Nitroglycerin 0.4 MG Sublingual Tablet Sublingual (Nitrostat)Indicat ions:Coronary artery disease involving algaaciq coronary artery of algaaciq heart without angina pectoris,Old [place] (myocardial infarction) [...] systolic heart failure (HCC),Coronary artery disease involving algaaciq coronary artery of algaaciq heart without angina pectoris TAKE 1 TAB [...] Oral Tablet (Lipitor)Indicatio ns:Coronary artery disease involving algaaciq coronary artery of algaaciq heart without angina pectoris,Dyslipide mona TAKE 1 TABLET DAILY IN THE MORNING 90 Tablet 3 05/27/2023 Active Insulin Glargine Solostar 100 UNIT/ML Subcutaneous Solution Pen-injector (Lantus SoloStar)Indicatio ns:DM type 2 causing renal disease, 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) INJECT 20 UNITS SUBCUTANEOUSLY TWICE DAILY 30 mL 2 07/08/2023 Active Digoxin 125 MCG Oral Tablet (Lanoxin)Indicatio ns:Chronic systolic heart failure (HCC),Coronary artery disease involving algaaciq coronary artery of algaaciq heart without angina pectoris Take 1 Tablet [...] Dyslipidemia 02/18/2018 Coronary artery disease invo lving algaaciq coronary artery of algaaciq heart without angina pectoris 12/10/2017 PAF (paroxysmal [...] mRNA, LNP-s, No Pre serve, 2-Dose Series (Saber Seven) 07/23/2021,11/14/2020,10/24/2020 COVID-19, MRNA-LNP, 23-24, P F, 30 MCG/0.3 mL, 12 YRS AND ABOVE, IM ([place]-Comirnaty) 05/26/2023 Covid-19, Mrna, Lnp-s, Pf, B ivalent, [...] no ride to get here , 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 Pt to let us know documented in this encounter Plan of Treatment Upcoming Encounters Date Type Department Care Team (Late st Contact Info) Description 01/04/2024 2:25 PM EDT Office Visit Hematology/Oncology [facility] [address] [facility] [place], [place] [phone] Marquez Kolb MD [address] [facility] [facility] [address] 02/21/2024 9:30 AM EDT Office Visit Cardiology, [facility] [address] [facility] [address] Aurelio Viera PA-C [address] [facility] [place] [address] 03/08/2024 10:00 AM EDT Cardiac Studies Cardiology, [facility] [address] [facility] [place] [address] [address] [facility] [address] [facility] [place] [address] 04/05/2024 1:00 PM EDT Office Visit [facility] [address] [place] [phone] Jason West MD [address] [place] [address] Health Maintenance Due Date Last Done Comments Hepatitis C Screening 1963 COVID-19 Vaccine ( season) 2023 05/26/2023, 05/26/2022, 07/23/2021, Additional history exists Albumin/Creatinine Ratio 10/03/202310/02/2 023, 08/28/2021, 11/18/2020, Additional history exists CKD PHOS USE SMARTSET 16400 10/03/2023 03/0 09/2022, 03/17/2021, 08/18/2019, Additional history exists DIG LEVEL FOR MEDICATION MONITORING YEARLY 03/08/2024 03/08/2023, 10/02/2022, 07/29/2021 GFR 06/18/2024 12/17/2023, 08/0 01/2023, 10/02/2022, Additional history exists HbA1c 06/18/2024 12/17/2023, 08/0 01/2023, 10/02/2022, Additional history exists Diabetic Eye Exam 11/01/2024 11/02/2023, , 04/07/2019, Additional history exists Diabetic Foot Exam 11/01/2024 11/02/2023, 0 03/17/2021, 12/27/2019, Additional history exists CKD HGB USE SMARTSET 06060 12/16/202412/16, 12/17/2023, 03/08/2023, Additional history exists DXA [...] filedocumented as of this encounter Care Teams Animal Attendants And Trainers Relationship Specialty Start Date End Date Jason West MD [address] [place] [address] PCP - General 02/06/03 documented as of this encounter
--- OUTSIDE RECORDS SUMMARY | 2024-02-23 02:53 | External Medical Summary ---
Author Name Unknown Address Unknown Organization K01:[facility] - [address] [place] [id number] Laboratory Report Ordering Provider Test Date Status MELANIE CROWE 12/20/2023 10:04:50 Final Observation Date Value Abnormality Reference (Units) Status Bacteria identified in Specimen by Culture 12/20/2023 10:04:50 No significant growth Final Test: Culture, Urine, Quanti tative
Specimen Source: Urine, Clean Catch
Specimen Type: Urine
Specimen Date: 12/20/20231003
Result Date: 12/21/2023822
Result Status: Final result
Resulting Lab: [facility]
[address]
[place] [address]

CULTURE

No significant growth

null Performing Location [facility] - [address] [facility] [address]
--- NOTE | 2024-02-23 07:18 | Pulmonology Progress Note ---
Date of Service February 23, 2024 Assessment & Plan (1) Pulmonary embolism: (2) Permanent atrial fibrillation: (3) Multiple pulmonary nodules: (4) Bronchiectasis: Plan CTA chest 02/22/2024 personally reviewed: Motion degraded study Multiple pulmonary nodules appreciated bilaterally upper and lower lobes Pulmonary emboli in the left upper as well as right lower pulmonary arteries Tree-in-bud opacities appreciated in the lingula as well as the right middle lobe with minimal bronchiectasis No significant mediastinal lymphadenopathy -- Pulmonary emboli sPESI score 2, high sec to history of cancer Doppler lower extremities negative for DVT Saturating 99% room air No indication for tPA -- Abnormal chest CT Minimal bronchiectasis in the right middle as well as the lingula One of the sputum culture 10/25/2023 was positive for Mycobacterium avium complex Will repeat AFB -- Multiple pulmonary nodules Up to 5 mm Continue to monitor -- History of A-fib On Eliquis at home It seems that patient was not able to take Eliquis twice a day is because of her throwing it up Plan: No indication for tPA. Continue with anticoagulation, will need lifelong anticoagulation given the history of esophageal cancer. Recommend Lovenox therapeutic twice daily given the inability to keep pills down consistently Follow-up AFB Flutter valve with Mucinex to help bring up the phlegm For odynophagia, Magic mouthwash will be ordered Patient was requesting artificial tears which will be given to the patient. Please note the above document was generated using voice recognition software. It may contain grammatical, syntax or spelling errors.Any formal questions or concerns about the content, text or information contained within the body of this dictation should be directly addressed to the provider for clarification. Admission and Anticipated Discharge Date Admission Date: February 22, 2024 Subjective Patient seen and examined at bedside. No acute distress, low-dose insulin She was saturating 96-97% on room Stated that she is coughing up and bringing up clear phlegm. Denies any hemoptysis Was complaining of odynophagia No chest pain, no headache, no blurry vision Review of Systems 2 Review of Systems: All systems reviewed & are unremarkable except as noted in Subjective Physical Exam 2 Physical Exam: Constitutional: No acute distress HEENT: EOMI, PERRLA Respiratory system: Decreased air entry bilaterally, no wheeze, no rhonchi, mild crackles bilateral lower lobes CVS: S1-S2 positive, no murmurs or gallops Abdomen: Soft, nontender, nondistended, positive bowel sounds x4 Extremities: +2 pulses bilaterally radialis/ dorsalis pedis, no cyanosis, +1 pitting edema bilateral lower extremity Neuro: Awake alert oriented x3 Psych: Normal mood and affect G/U: No Whitaker Skin: no rashes, warm and dry Lymphatic: no cervical or axillary lymphadenopathy Results & Data Results & Data Vital Signs (Past 12 Hours) Vital Signs Temp Pulse Pulse Resp BP BP Pulse Ox 02/23/24 03:07 36.5 C 77 20 124/81 94 02/22/24 23:08 36.5 C 94 H 24 91/53 L 97 02/22/24 22:00 96 H 02/22/24 19:51 36.6 C 92 H 31 H 152/76 H 99 O2 Del Method 02/23/24 03:07 Room Air 02/22/24 23:08 Room Air 02/22/24 22:00 02/22/24 19:51 Room Air Laboratory Results 02/22/24 10:37 02/22/24 10:37 PG Care Time/CCT Total # of Minutes Spent Total Time Spent with Patient: Total time spent is greater than 50% in coordination of care (as documented) at patient's floor/unit and/or counseling patient: Coding Level of Care Code 12422 SUB INP/OBS CARE 2/35MIN Diagnoses Pulmonary embolism I26.99 Permanent atrial fibrillation I48.21 Multiple pulmonary nodules R91.8 Bronchiectasis J47.9
[2024-02-23] MEDS ORDERED: ENOXAPARIN 1 MG/KG SQ SCH (08:30)
[2024-02-23 08:38] LABS: Hematocrit (blood only) 32.3 % (37.0-47.0); Hemoglobin 9.5 g/dl (12.0-16.0); Mean Corpuscular Hemoglobin 23.3 pg (25.0-34.0); Mean Corpuscular Hgb Conc 29.4 g/dL (32.0-36.0); Mean Corpuscular Volume 79.4 fL (80.0-100.0); Mean Platelet Volume 9.5 fL (9.4-12.4); Nucleated RBC # (auto) 0.03 K/uL (0.00-0.12); Nucleated RBC % (auto) 2.1 %; Platelet Count 135 K/uL (130-400); RDW Coefficient of Variation 19.2 % (11.5-14.5); RDW Standard Deviation 53.1 fL (36.4-46.3); Red Blood Count 4.07 M/uL (4.20-5.40); White Blood Count 1.41 K/ul (4.8-10.8)
[2024-02-23] MEDS: ATORVASTATIN 40 MG TAB PO SCH (08:40)
[2024-02-23] MEDS: ASPIRIN 81 MG ECTAB PO SCH (08:40)
[2024-02-23] MEDS: METOPROLOL SUCC 50MG EXT REL TAB PO SCH ×2 (08:41→20:12)
[2024-02-23] MEDS: TORSEMIDE 10 MG TAB PO SCH (08:41)
[2024-02-23] MEDS: ENOXAPARIN 100 MG/1ML SYR SQ SCH (08:41)
[2024-02-23 09:02] LABS: ANTI-Xa, UFH(UnfractionatedHep 1.02 IU/ml (0.3-0.7)
[2024-02-23 09:14] LABS: Folate (Folic Acid),Ser orPlas > 22.30 ng/ml (>5.38)
[2024-02-23 09:15] LABS: Ovalocytes 1+; Vitamin B12 547 pg/ml (180-914)
[2024-02-23 09:17] LABS: Basophils # (auto) 0.02 K/uL (0.00-0.20); Basophils % (auto) 1.4 %; Eosinophils # (auto) 0.04 K/uL (0.00-0.50); Eosinophils % (auto) 2.8 %; Immature Granulocytes # (auto) 0.02 K/uL (0.01-0.20); Immature Granulocytes % (auto) 1.4 %; Lymphocytes # (auto) 0.21 K/uL (1.20-3.40); Lymphocytes % (auto) 14.9 %; Monocytes # (auto) 0.31 K/uL (0.11-0.59); Neutrophils # (auto) 0.81 K/uL (1.40-6.50); Neutrophils % (auto) 57.5 %
[2024-02-23 09:25] LABS: Magnesium 1.8 mg/dl (1.7-2.4); Potassium 3.4 mmol/L (3.5-5.1)
[2024-02-23 09:28] LABS: BUN Creatinine Ratio 26.7 (10-20); Creatinine Clr Calc Pharmacy 81.3 ml/min; Est GFR (African American) 100.5 ml/min; Est GFR (Non-African American) 86.7 ml/min
[2024-02-23 09:33] LABS: Troponin I High Sensitivity 15.3 pg/ml (0-14)
[2024-02-23 09:47] LABS: Ferritin 272.9 ng/ml (8-388)
[2024-02-23 09:55] LABS: Estimated Average Glucose 166 mg/dl; Hemoglobin A1C 7.4 % (4.5-5.6)
[2024-02-23] MEDS ORDERED: ARTIFICIAL TEARS OP PRN (10:39)
[2024-02-23] MEDS: POTASSIUM CHLORIDE 20 MEQ/15 ML UDC PO ONE (10:50)
[2024-02-23] MEDS: FIRST - Mouthwash BLM 119 ML MT SCH (11:41)
[2024-02-23] MEDS: MAGNESIUM OXIDE 400 MG TAB PO SCH (11:41)
[2024-02-23] MEDS ORDERED: DOCUSATE SODIUM 100 MG CAP PO PRN (13:57)
[2024-02-23] MEDS: POLYETHYLENE (MIRALAX) 17 GM PACK PO SCH (14:48)
[2024-02-23] MEDS: POTASSIUM CHLORIDE / WTR 10 MEQ/100 ML PLCT IV SCH (15:56)
[2024-02-23] MEDS: ARTIFICIAL TEARS OP OINT 3.5 GM TUBE OP SCH (15:57)
--- NOTE | 2024-02-23 16:03 | Hospitalist Progress Note ---
Date of Service February 23, 2024 Assessment & Plan (1) Atrial fibrillation with RVR: Plan: Patient is 78-year-old female with PMH CAD s/p stent, atrial fibrillation, SSS s/p pacemaker, chronic HFpEF, HTN, HLD, DM II, esophageal cancer currently receiving chemo and radiation and others listed below presented to ER from oncology center for tachycardia. A-fib RVR H/O Afib. Previously on anticoagulation with Eliquis (discontinued due to GI bleed issues) Admits to having missed her metoprolol prior to admission due to difficulty swallowing Hypothyroidism likely contributing as well Resume metoprolol succinate 150 mg twice a day On Lovenox for anticoagulation as below Discussed with endocrinology on 02/23/24: Start methimazole 10 mg twice a day. Needs follow-up with endocrinology as outpatient Monitor and replete electrolytes as needed Also on digoxin Will consider cardiology evaluation if needed Hyperthyroidism--POA Low TSH, elevated free T4 Started on methimazole Needs follow-up with endocrinology on discharge. Will update prior to discharge as requested. Hypokalemia Hypomagnesemia Replete electrolytes as needed Monitor (2) SOB (shortness of breath): (3) Pulmonary embolism: Plan: Acute pulmonary embolism Off Eliquis since 12/2023 secondary to GI bleed. SOB x several days. H/O Esophageal cancer --CTA Chest: Cardiomegaly with bilateral segmental and subsegmental pulmonary emboli and probable associated right heart strain. No pleural effusion or pulmonary infarct. Mild lingular and right middle lobe bronchiectasis with stable subcentimeter nodules including tree-in-bud nodules which are likely infectious or inflammatory. A chronic bronchiolitis such as nontuberculous mycobacterium considered. No lymphadenopathy. --ECHO: EF 45 to 50%. Mild concentric LVH. Mild global hypokinesis of left ventricle. Left atrium is severely dilated. Mild mitral regurgitation, trace tricuspid regurgitation, findings not suggestive of pulmonary hypertension. 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, gastritis, and on on aspirin and Eliquis in which she was was treated with IV PPI, s/p PRBC transfusion Denies melena, hematochezia recently Continue PPI Monitor CBC GE junction adenocarcinoma Follows with [facility] oncology and radiation oncology Currently undergoing chemotherapy, radiation Needs follow-up with oncology on discharge (5) Neutropenia: Plan: Bronchiectasis Pulmonary nodules WBC: 1.5, Hgb: 9.7 (recent baseline), Plt: 147, ANC: 990 Likely due to chemotherapy No obvious source of infection Abnormal CT chest: Suggestive of bronchiectasis Repeat AFB pending Appreciate pulmonology input Continue pulmonary hygiene with bird Taylor (6) Primary carcinoma of lower third of esophagus: Plan: Dysphagia 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 Currently receiving chemo and radiation Last chemo reported 02/14/[address] Kolb Progressive dysphagia with recent diagnosis esophageal cancer. 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 Pacemaker interrogation (11) Hypertension: Plan: Continue metoprolol succinate Monitor (12) Dyslipidemia: Plan: Continue atorvastatin DVT Px Lovenox SQ CODE STATUS Full code Admission and Anticipated Discharge Date Admission Date: February 22, 2024 Subjective Patient is seen and examined at bedside States having generalized weakness Also reports some dyspnea on exertion Denies any bleeding issues Also denies any chest pain, nausea, vomiting, abdominal pain No other complaints Review of Systems Review of Systems: All systems reviewed & are unremarkable except as noted in Subjective Physical Exam Physical Exam: Physical Exam: Vitals signs as noted above General Appearance:Obese, no apparent distress Head: normocephalic, Atraumatic Eyes: normal inspection, EOMI Neck: supple, Trachea midline Respiratory/Chest: Decreased breath sounds, CTA, No accessory muscle use Cardiovascular: Irregularly irregular, + murmur. +Pacer,+Tachycardia Abdomen/GI:Soft, Non tender, Bowel sounds present Extremities/Musculoskeletal:normal inspection, 1+edema Neurologic/Psych:AAOX3, grossly no focal neurological deficits Skin: normal color, warm Results & Data Results & Data Vital Signs (Past 12 Hours) Vital Signs Temp Pulse Pulse Resp BP Pulse Ox O2 Del Method 02/23/24 10:24 36.6 C 98 H 19 108/71 96 Room Air 02/23/24 08:35 98 H 02/23/24 08:15 36.4 C L 98 H 18 121/79 96 Room Air Laboratory Results Short CBC 02/23/24 Range/Units 08:09 WBC 1.41 L (4.8-10.8) K/ul Hgb 9.5 L (12.0-16.0) g/dl Hct 32.3 L (37.0-47.0) % Plt Count 135 (130-400) K/uL BMP 02/23/24 08:09 Sodium 140 Potassium 3.4 L D Chloride 106 Carbon Dioxide 26 BUN 16 Creatinine 0.60 Glucose 109 H Calcium 9.0 Urine 02/22/24 Range/Units Unknown Urine Color Yellow Urine Appearance Clear (Clear) Urine pH 5.5 (4.5-7.5) Ur Specific [place] > 1.045 H (1.000-1.030) Urine Protein Trace H (Negative) Urine Glucose (UA) 2+ H (Negative) (9) Coronary artery disease Associated angina: without angina Coronary Disease-Associated Artery/Lesion type: platinum artery [place] vs. transplanted heart: platinum heart Qualified Code(s): I25.10 - Atherosclerotic heart disease of platinum coronary artery without angina pectoris (11) Hypertension Hypertension type: essential hypertension Qualified Code(s): I10 - Essential (primary) hypertension
[2024-02-23] MEDS: methIMAzole 5 MG TABLET PO SCH (20:12)
[2024-02-24 06:27] LABS: Hematocrit (blood only) 30.2 % (37.0-47.0); Hemoglobin 9.1 g/dl (12.0-16.0); Mean Corpuscular Hemoglobin 23.6 pg (25.0-34.0); Mean Corpuscular Hgb Conc 30.1 g/dL (32.0-36.0); Mean Corpuscular Volume 78.4 fL (80.0-100.0); Mean Platelet Volume 9.1 fL (9.4-12.4); Nucleated RBC # (auto) 0.04 K/uL (0.00-0.12); Nucleated RBC % (auto) 2.3 %; Platelet Count 144 K/uL (130-400); RDW Coefficient of Variation 19.4 % (11.5-14.5); RDW Standard Deviation 52.6 fL (36.4-46.3); Red Blood Count 3.85 M/uL (4.20-5.40); White Blood Count 1.73 K/ul (4.8-10.8)
[2024-02-24 06:51] LABS: BUN Creatinine Ratio 29.3 (10-20); Calcium 8.7 mg/dl (8.6-10.3); Creatinine Clr Calc Pharmacy 64.3 ml/min; Est GFR (African American) 87.9 ml/min; Est GFR (Non-African American) 75.8 ml/min; Magnesium 1.4 mg/dl (1.7-2.4); Potassium 4.1 mmol/L (3.5-5.1)
[2024-02-24 06:55] LABS: Anisocytosis Present; Polychromasia 1+
[2024-02-24] MEDS: CARBOHYDRATES FOR HYPOGLYCEMIA PO PRN (07:35)
[2024-02-24 07:38] LABS: Basophils # (auto) 0.03 K/uL (0.00-0.20); Basophils % (auto) 1.7 %; Eosinophils # (auto) 0.03 K/uL (0.00-0.50); Eosinophils % (auto) 1.7 %; Immature Granulocytes # (auto) 0.04 K/uL (0.01-0.20); Immature Granulocytes % (auto) 2.3 %; Lymphocytes # (auto) 0.24 K/uL (1.20-3.40); Lymphocytes % (auto) 13.9 %; Monocytes # (auto) 0.49 K/uL (0.11-0.59); Monocytes % (auto) 28.3 %; Neutrophils % (auto) 52.1 %
[2024-02-24] MEDS: MAGNESIUM SULFATE / D5W 1 GM/100 ML BAG IV SCH (09:03)
--- NOTE | 2024-02-24 09:29 | Pulmonology Progress Note ---
Date of Service February 24, 2024 Assessment & Plan (1) Pulmonary embolism: (2) Permanent atrial fibrillation: (3) Multiple pulmonary nodules: (4) Bronchiectasis: Plan CTA chest 02/22/2024 personally reviewed: Motion degraded study Multiple pulmonary nodules appreciated bilaterally upper and lower lobes Pulmonary emboli in the left upper as well as right lower pulmonary arteries Tree-in-bud opacities appreciated in the lingula as well as the right middle lobe with minimal bronchiectasis No significant mediastinal lymphadenopathy -- Pulmonary emboli sPESI score 2, high sec to history of cancer Doppler lower extremities negative for DVT Saturating 99% room air No indication for tPA -- Abnormal chest CT Minimal bronchiectasis in the right middle as well as the lingula One of the sputum culture 10/25/2023 was positive for Mycobacterium avium complex Will repeat AFB -- Multiple pulmonary nodules Up to 5 mm Continue to monitor -- History of A-fib On Eliquis at home It seems that patient was not able to take Eliquis twice a day is because of her throwing it up Plan: No indication for tPA. Continue with anticoagulation, will need lifelong anticoagulation given the history of esophageal cancer. Recommend Lovenox therapeutic twice daily given the inability to keep pills down consistently Follow-up AFB, negative to date Flutter valve with Mucinex to help bring up the phlegm No further recommendation from pulmonary perspective, will sign off Please call directly with any questions Please note the above document was generated using voice recognition software. It may contain grammatical, syntax or spelling errors.Any formal questions or concerns about the content, text or information contained within the body of this dictation should be directly addressed to the provider for clarification. Admission and Anticipated Discharge Date Admission Date: February 22, 2024 Subjective Patient seen and examined at bedside. No acute distress, no adverse events overnight She was saturating 95% on room air at the time of examination She said that the pain on swelling has gone down after the starting of Magic mouthwash Denies any abdominal pain Does complain of generalized malaise and weakness Review of Systems 2 Review of Systems: All systems reviewed & are unremarkable except as noted in Subjective Physical Exam 2 Physical Exam: Constitutional: No acute distress HEENT: EOMI, PERRLA Respiratory system: Decreased air entry bilaterally, no wheeze, no rhonchi, mild crackles bilateral lower lobes CVS: S1-S2 positive, no murmurs or gallops Abdomen: Soft, nontender, nondistended, positive bowel sounds x4 Extremities: +2 pulses bilaterally radialis/ dorsalis pedis, no cyanosis, +1 pitting edema bilateral lower extremity Neuro: Awake alert oriented x3 Psych: Normal mood and affect G/U: No Hwitaker Skin: no rashes, warm and dry Lymphatic: no cervical or axillary lymphadenopathy Results & Data Results & Data Vital Signs (Past 12 Hours) Vital Signs Temp Pulse Pulse Resp BP Pulse Ox O2 Del Method 02/24/24 09:16 37 C 96 H 16 125/68 94 Room Air 02/24/24 07:24 92 H 02/24/24 03:18 36.4 C L 73 26 H 119/76 98 Room Air 02/23/24 23:28 36.5 C 84 26 H 132/67 97 Room Air 02/23/24 22:15 85 Laboratory Results 02/24/24 06:08 02/24/24 06:08 PG Care Time/CCT Total # of Minutes Spent Total Time Spent with Patient: Total time spent is greater than 50% in coordination of care (as documented) at patient's floor/unit and/or counseling patient: Coding Level of Care Code 64818 SUB INP/OBS CARE 2/35MIN Diagnoses Pulmonary embolism I26.99 Permanent atrial fibrillation I48.21 Multiple pulmonary nodules R91.8 Bronchiectasis J47.9
[2024-02-24] MEDS ORDERED: METOPROLOL TARTRATE 1 MG/ML VIAL IV PRN (12:25)
[2024-02-24] MEDS: SUCRALFATE 1 GM TAB PO SCH (13:03)
--- NOTE | 2024-02-24 17:59 | Hospitalist Progress Note ---
Date of Service February 24, 2024 Assessment & Plan (1) Atrial fibrillation with RVR: Plan: Patient is 78-year-old female with PMH CAD s/p stent, atrial fibrillation, SSS s/p pacemaker, chronic HFpEF, HTN, HLD, DM II, esophageal cancer currently receiving chemo and radiation and others listed below presented to ER from oncology center for tachycardia. A-fib RVR H/O Afib. Previously on anticoagulation with Eliquis (discontinued due to GI bleed issues) Admits to having missed her metoprolol prior to admission due to difficulty swallowing Hyperthyroidism likely contributing as well Resume metoprolol succinate 150 mg twice a day On Lovenox for anticoagulation as below Discussed with endocrinology on 02/23/24: Start methimazole 10 mg twice a day. Needs follow-up with endocrinology as outpatient Monitor and replete electrolytes as needed Also on digoxin Added IV Lopressor as needed Monitor Hyperthyroidism--POA Low TSH, elevated free T4 Started on methimazole 10 mg twice daily Needs follow-up with endocrinology on discharge. Will update prior to discharge as requested. Hypokalemia Hypomagnesemia Replete electrolytes as needed Monitor (2) SOB (shortness of breath): (3) Pulmonary embolism: Plan: Acute pulmonary embolism Off Eliquis since 12/2023 secondary to GI bleed. SOB x several days. H/O Esophageal cancer --CTA Chest: Cardiomegaly with bilateral segmental and subsegmental pulmonary emboli and probable associated right heart strain. No pleural effusion or pulmonary infarct. Mild lingular and right middle lobe bronchiectasis with stable subcentimeter nodules including tree-in-bud nodules which are likely infectious or inflammatory. A chronic bronchiolitis such as nontuberculous mycobacterium considered. No lymphadenopathy. --ECHO: EF 45 to 50%. Mild concentric LVH. Mild global hypokinesis of left ventricle. Left atrium is severely dilated. Mild mitral regurgitation, trace tricuspid regurgitation, findings not suggestive of pulmonary hypertension. 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, gastritis, and on on aspirin and Eliquis in which she was was treated with IV PPI, s/p PRBC transfusion Denies melena, hematochezia recently Continue PPI Monitor CBC GE junction adenocarcinoma Follows with [facility] oncology and radiation oncology Currently undergoing chemotherapy, radiation Needs follow-up with oncology on discharge (5) Neutropenia: Plan: Bronchiectasis Pulmonary nodules WBC: 1.5, Hgb: 9.7 (recent baseline), Plt: 147, ANC: 990 Likely due to chemotherapy No obvious source of infection Abnormal CT chest: Suggestive of bronchiectasis Repeat AFB --pending Appreciate pulmonology input Continue pulmonary hygiene with bird Taylor (6) Primary carcinoma of lower third of esophagus: Plan: Dysphagia 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 Currently receiving chemo and radiation Last chemo reported 02/14/[address] Kolb Progressive dysphagia with recent diagnosis esophageal cancer Aspiration precautions Speech consult Bulk Gas Specialist consult for assistance with oral supplement Liquid diet for now added Magic mouthwash, Carafate to help with odynophagia (7) Chronic heart failure with preserved ejection fraction (HFpEF): Plan: Appears euvolemic Continue torsemide (8) DM type 2 (diabetes mellitus, type 2): Plan: A1c: 7.4 Hold home glipizide Continue home Lantus NovoLog sliding scale per protocol Monitor BGs (9) Coronary artery disease: Plan: CAD s/p stent Continue aspirin, atorvastatin, metoprolol (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 Pacemaker interrogation (11) Hypertension: Plan: Continue metoprolol succinate Monitor (12) Dyslipidemia: Plan: Continue atorvastatin DVT Px Lovenox SQ CODE STATUS Full code Admission and Anticipated Discharge Date Admission Date: February 22, 2024 Subjective Patient is seen and examined at bedside States having burning-like sensation with swallowing Also reports headache today Was hypoglycemic earlier this morning Less dyspnea today Still has some expectoration Reports generalized weakness No other complaints Denies any chest pain, nausea, vomiting, abdominal pain Discussed with radiation oncology today Review of Systems Review of Systems: All systems reviewed & are unremarkable except as noted in Subjective Physical Exam Physical Exam: Physical Exam: Vitals signs as noted above General Appearance:Obese, no apparent distress Head: normocephalic, Atraumatic Eyes: normal inspection, EOMI Neck: supple, Trachea midline Respiratory/Chest: Decreased breath sounds, CTA, No accessory muscle use Cardiovascular: Irregularly irregular, + murmur. +Pacer,+Tachycardia Abdomen/GI:Soft, Non tender, Bowel sounds present Extremities/Musculoskeletal:normal inspection, 1+edema Neurologic/Psych:AAOX3, grossly no focal neurological deficits Skin: normal color, warm Results & Data Results & Data Vital Signs (Past 12 Hours) Vital Signs Temp Pulse Pulse Resp BP BP Pulse Ox 02/24/24 15:40 92 H 02/24/24 15:28 36.3 C L 84 18 123/85 100 02/24/24 14:39 106 H 02/24/24 11:57 36.6 C 100 H 16 144/69 H 100 02/24/24 10:34 02/24/24 09:16 37 C 96 H 16 125/68 94 02/24/24 07:24 92 H O2 Del Method 02/24/24 15:40 02/24/24 15:28 Room Air 02/24/24 14:39 02/24/24 11:57 Room Air 02/24/24 10:34 Room Air 02/24/24 09:16 Room Air 02/24/24 07:24 Laboratory Results Short CBC 02/24/24 Range/Units 06:08 WBC 1.73 L (4.8-10.8) K/ul Hgb 9.1 L (12.0-16.0) g/dl Hct 30.2 L (37.0-47.0) % Plt Count 144 (130-400) K/uL BMP 02/24/24 06:08 Sodium 142 Potassium 4.1 D Chloride 107 Carbon Dioxide 30 BUN 22 Creatinine 0.75 Glucose 55 L Calcium 8.7 (9) Coronary artery disease Coronary Disease-Associated Artery/Lesion type: [place] artery [place] vs. transplanted heart: [place] heart Associated angina: without angina Qualified Code(s): I25.10 - Atherosclerotic heart disease of [place] coronary artery without angina pectoris (11) Hypertension Hypertension type: essential hypertension Qualified Code(s): I10 - Essential (primary) hypertension
[2024-02-25 06:46] LABS: Basophils # (auto) 0.02 K/uL (0.00-0.20); Basophils % (auto) 0.8 %; Eosinophils # (auto) 0.02 K/uL (0.00-0.50); Eosinophils % (auto) 0.8 %; Hematocrit (blood only) 31.5 % (37.0-47.0); Hemoglobin 9.6 g/dl (12.0-16.0); Immature Granulocytes # (auto) 0.04 K/uL (0.01-0.20); Immature Granulocytes % (auto) 1.5 %; Lymphocytes # (auto) 0.29 K/uL (1.20-3.40); Lymphocytes % (auto) 10.9 %; Mean Corpuscular Hemoglobin 23.9 pg (25.0-34.0); Mean Corpuscular Hgb Conc 30.5 g/dL (32.0-36.0); Mean Corpuscular Volume 78.4 fL (80.0-100.0); Mean Platelet Volume 9.5 fL (9.4-12.4); Monocytes # (auto) 0.58 K/uL (0.11-0.59); Monocytes % (auto) 21.8 %; Neutrophils # (auto) 1.71 K/uL (1.40-6.50); Neutrophils % (auto) 64.2 %; Platelet Count 152 K/uL (130-400); RDW Coefficient of Variation 19.5 % (11.5-14.5); RDW Standard Deviation 52.7 fL (36.4-46.3); Red Blood Count 4.02 M/uL (4.20-5.40); White Blood Count 2.66 K/ul (4.8-10.8)
[2024-02-25 07:06] LABS: Calcium 8.7 mg/dl (8.6-10.3); Creatinine Clr Calc Pharmacy 67.1 ml/min; Est GFR (African American) 93.9 ml/min; Magnesium 1.4 mg/dl (1.7-2.4); Potassium 3.9 mmol/L (3.5-5.1)
[2024-02-25] MEDS: MAGNESIUM SULFATE / D5W 1 GM/100 ML BAG IV SCH (10:17)
[2024-02-25] MEDS: guaiFENesin/DEXTROM SYRUP 100MG/10MG 5ML UDC PO SCH (14:54)
--- NOTE | 2024-02-25 16:57 | Hospitalist Progress Note ---
Date of Service February 25, 2024 Assessment & Plan (1) Atrial fibrillation with RVR: Plan: Patient is 78-year-old female with PMH CAD s/p stent, atrial fibrillation, SSS s/p pacemaker, chronic HFpEF, HTN, HLD, DM II, esophageal cancer currently receiving chemo and radiation and others listed below presented to ER from oncology center for tachycardia. A-fib RVR H/O Afib. Previously on anticoagulation with Eliquis (discontinued due to GI bleed issues) Admits to having missed her metoprolol prior to admission due to difficulty swallowing Hyperthyroidism likely contributing as well Resume metoprolol succinate 150 mg twice a day On Lovenox for anticoagulation as below Discussed with endocrinology on 02/23/24: Start methimazole 10 mg twice a day. Needs follow-up with endocrinology as outpatient Monitor and replete electrolytes as needed Also on digoxin Added IV Lopressor as needed Heart rate is better controlled Will need rehab placement Case management to help with discharge planning Hyperthyroidism--POA Low TSH, elevated free T4 Started on methimazole 10 mg twice daily Needs follow-up with endocrinology on discharge. Will update prior to discharge as requested. Hypokalemia Hypomagnesemia Replete electrolytes as needed Monitor Minimal epistaxis Afrin as needed (2) SOB (shortness of breath): (3) Pulmonary embolism: Plan: Acute pulmonary embolism Off Eliquis since 12/2023 secondary to GI bleed. SOB x several days. H/O Esophageal cancer --CTA Chest: Cardiomegaly with bilateral segmental and subsegmental pulmonary emboli and probable associated right heart strain. No pleural effusion or pulmonary infarct. Mild lingular and right middle lobe bronchiectasis with stable subcentimeter nodules including tree-in-bud nodules which are likely infectious or inflammatory. A chronic bronchiolitis such as nontuberculous mycobacterium considered. No lymphadenopathy. --ECHO: EF 45 to 50%. Mild concentric LVH. Mild global hypokinesis of left ventricle. Left atrium is severely dilated. Mild mitral regurgitation, trace tricuspid regurgitation, findings not suggestive of pulmonary hypertension. - IV heparin transition to therapeutic Lovenox Appreciate pulmonology input Discussed with pulmonology today. 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, gastritis, and on on aspirin and Eliquis in which she was was treated with IV PPI, s/p PRBC transfusion Denies melena, hematochezia recently Continue PPI Monitor CBC GE junction adenocarcinoma Follows with [facility] oncology and radiation oncology Currently undergoing chemotherapy, radiation Needs follow-up with oncology on discharge (5) Neutropenia: Plan: Bronchiectasis Pulmonary nodules WBC: 1.5, Hgb: 9.7 (recent baseline), Plt: 147, ANC: 990 Likely due to chemotherapy No obvious source of infection Abnormal CT chest: Suggestive of bronchiectasis Repeat AFB --pending Appreciate pulmonology input (6) Primary carcinoma of lower third of esophagus: Plan: Dysphagia 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 Currently receiving chemo and radiation Last chemo reported 02/14/[address] Kolb Progressive dysphagia with recent diagnosis esophageal cancer Aspiration precautions Speech consult Multi Disciplined Language Analyst consult for assistance with oral supplement Liquid diet for now added Magic mouthwash, Carafate to help with odynophagia (7) Chronic heart failure with preserved ejection fraction (HFpEF): Plan: Appears euvolemic Continue torsemide (8) DM type 2 (diabetes mellitus, type 2): Plan: A1c: 7.4 Hold home glipizide Continue home Lantus NovoLog sliding scale per protocol Monitor BGs (9) Coronary artery disease: Plan: CAD s/p stent Continue aspirin, atorvastatin, metoprolol (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 Pacemaker interrogation (11) Hypertension: Plan: Continue metoprolol succinate Monitor (12) Dyslipidemia: Plan: Continue atorvastatin DVT Px Lovenox SQ CODE STATUS Full code Admission and Anticipated Discharge Date Admission Date: February 22, 2024 Subjective Patient is seen and examined at bedside States having generalized weakness Continues to have burning-like sensation with swallowing Also reports minimal epistaxis, hemoptysis Discussed with pulmonology today Saturating well on room air Denies any chest pain, nausea, vomiting, abdominal pain Review of Systems Review of Systems: All systems reviewed & are unremarkable except as noted in Subjective Physical Exam Physical Exam: Physical Exam: Vitals signs as noted above General Appearance:Obese, no apparent distress Head: normocephalic, Atraumatic Eyes: normal inspection, EOMI Neck: supple, Trachea midline Respiratory/Chest: Decreased breath sounds, CTA, No accessory muscle use Cardiovascular: Irregularly irregular, + murmur. +Pacer,+Tachycardia Abdomen/GI:Soft, Non tender, Bowel sounds present Extremities/Musculoskeletal:normal inspection, 1+edema Neurologic/Psych:AAOX3, grossly no focal neurological deficits Skin: normal color, warm Results & Data Results & Data Vital Signs (Past 12 Hours) Vital Signs Temp Pulse Pulse Resp BP BP Pulse Ox 02/25/24 16:43 93 H 02/25/24 15:45 36.6 C 86 18 117/79 96 02/25/24 12:27 02/25/24 11:48 36.6 C 107 H 18 128/84 98 02/25/24 08:23 76 02/25/24 07:30 37.2 C 94 H 18 130/81 96 Pulse Ox O2 Del Method O2 Flow Rate 02/25/24 16:43 02/25/24 15:45 Room Air 02/25/24 12:27 100 0 02/25/24 11:48 Room Air 02/25/24 08:23 02/25/24 07:30 Room Air Laboratory Results Short CBC 02/25/24 Range/Units 06:21 WBC 2.66 L (4.8-10.8) K/ul Hgb 9.6 L (12.0-16.0) g/dl Hct 31.5 L (37.0-47.0) % Plt Count 152 (130-400) K/uL BMP 02/25/24 06:21 Sodium 138 Potassium 3.9 Chloride 102 Carbon Dioxide 29 BUN 22 Creatinine 0.71 Glucose 125 H Calcium 8.7 (9) Coronary artery disease Coronary Disease-Associated Artery/Lesion type: [place] artery [place] vs. transplanted heart: [place] heart Associated angina: without angina Qualified Code(s): I25.10 - Atherosclerotic heart disease of [place] coronary artery without angina pectoris (11) Hypertension Hypertension type: essential hypertension Qualified Code(s): I10 - Essential (primary) hypertension
[2024-02-25] MEDS: OXYMETAZOLINE 0.05% 30 ML BTL PRN (20:05)
[2024-02-26 07:57] LABS: Basophils # (auto) 0.02 K/uL (0.00-0.20); Basophils % (auto) 0.5 %; Eosinophils # (auto) 0.01 K/uL (0.00-0.50); Eosinophils % (auto) 0.3 %; Hematocrit (blood only) 31.3 % (37.0-47.0); Hemoglobin 9.6 g/dl (12.0-16.0); Immature Granulocytes # (auto) 0.05 K/uL (0.01-0.20); Immature Granulocytes % (auto) 1.3 %; Lymphocytes # (auto) 0.45 K/uL (1.20-3.40); Lymphocytes % (auto) 11.6 %; Mean Corpuscular Hemoglobin 23.3 pg (25.0-34.0); Mean Corpuscular Hgb Conc 30.7 g/dL (32.0-36.0); Mean Platelet Volume 9.5 fL (9.4-12.4); Monocytes # (auto) 0.69 K/uL (0.11-0.59); Monocytes % (auto) 17.8 %; Neutrophils # (auto) 2.66 K/uL (1.40-6.50); Neutrophils % (auto) 68.5 %; Nucleated RBC # (auto) 0.02 K/uL (0.00-0.12); Nucleated RBC % (auto) 0.5 %; Platelet Count 172 K/uL (130-400); RDW Coefficient of Variation 19.9 % (11.5-14.5); RDW Standard Deviation 52.2 fL (36.4-46.3); Red Blood Count 4.12 M/uL (4.20-5.40); White Blood Count 3.88 K/ul (4.8-10.8)
[2024-02-26 08:23] LABS: BUN Creatinine Ratio 33.8 (10-20); Creatinine Clr Calc Pharmacy 69.9 ml/min; Est GFR (African American) 96.4 ml/min; Est GFR (Non-African American) 83.2 ml/min; Magnesium 1.4 mg/dl (1.7-2.4); Potassium 3.4 mmol/L (3.5-5.1)
[2024-02-26] MEDS: POTASSIUM CHLORIDE 20 MEQ/15 ML UDC PO ONE (10:33)
[2024-02-26] MEDS: MAGNESIUM SULFATE / D5W 1 GM/100 ML BAG IV SCH (10:33)
--- NOTE | 2024-02-26 15:40 | Hospitalist Progress Note ---
Date of Service February 26, 2024 Assessment & Plan (1) Atrial fibrillation with RVR: Plan: Patient is 78-year-old female with PMH CAD s/p stent, atrial fibrillation, SSS s/p pacemaker, chronic HFpEF, HTN, HLD, DM II, esophageal cancer currently receiving chemo and radiation and others listed below presented to ER from oncology center for tachycardia. A-fib RVR H/O Afib. Previously on anticoagulation with Eliquis (discontinued due to GI bleed issues) Admits to having missed her metoprolol prior to admission due to difficulty swallowing Hyperthyroidism likely contributing as well Resume metoprolol succinate 150 mg twice a day On Lovenox for anticoagulation as below Discussed with endocrinology on 02/23/24: Start methimazole 10 mg twice a day. Needs follow-up with endocrinology as outpatient Monitor and replete electrolytes as needed Also on digoxin Added IV Lopressor as needed Heart rate is better controlled Case management to help with discharge planning Waiting for rehab placement Hyperthyroidism--POA Low TSH, elevated free T4 Started on methimazole 10 mg twice daily Needs follow-up with endocrinology on discharge. Will update prior to discharge as requested. Hypokalemia Hypomagnesemia Replete electrolytes as needed Monitor Minimal epistaxis Afrin as needed Resolved (2) SOB (shortness of breath): (3) Pulmonary embolism: Plan: Acute pulmonary embolism Off Eliquis since 12/2023 secondary to GI bleed. SOB x several days. H/O Esophageal cancer --CTA Chest: Cardiomegaly with bilateral segmental and subsegmental pulmonary emboli and probable associated right heart strain. No pleural effusion or pulmonary infarct. Mild lingular and right middle lobe bronchiectasis with stable subcentimeter nodules including tree-in-bud nodules which are likely infectious or inflammatory. A chronic bronchiolitis such as nontuberculous mycobacterium considered. No lymphadenopathy. --ECHO: EF 45 to 50%. Mild concentric LVH. Mild global hypokinesis of left ventricle. Left atrium is severely dilated. Mild mitral regurgitation, trace tricuspid regurgitation, findings not suggestive of pulmonary hypertension. - IV heparin transition to therapeutic Lovenox Appreciate pulmonology input Discussed with pulmonology on 02/25/2024. 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, gastritis, and on on aspirin and Eliquis in which she was was treated with IV PPI, s/p PRBC transfusion Denies melena, hematochezia recently Continue PPI Monitor CBC GE junction adenocarcinoma Follows with [facility] oncology and radiation oncology Currently undergoing chemotherapy, radiation Needs follow-up with oncology on discharge (5) Neutropenia: Plan: Bronchiectasis Pulmonary nodules WBC: 1.5, Hgb: 9.7 (recent baseline), Plt: 147, ANC: 990 Likely due to chemotherapy No obvious source of infection Abnormal CT chest: Suggestive of bronchiectasis Repeat AFB --pending Empirically received doxycycline Appreciate pulmonology input (6) Primary carcinoma of lower third of esophagus: Plan: Dysphagia 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 Currently receiving chemo and radiation Last chemo reported 02/14/[address] Kolb Progressive dysphagia with recent diagnosis esophageal cancer Aspiration precautions Speech consult Dietary Supervisor consult for assistance with oral supplement Liquid diet for now added Magic mouthwash, Carafate to help with odynophagia Advance diet as tolerated (7) Chronic heart failure with preserved ejection fraction (HFpEF): Plan: Appears euvolemic Continue torsemide (8) DM type 2 (diabetes mellitus, type 2): Plan: A1c: 7.4 Hold home glipizide Continue home Lantus NovoLog sliding scale per protocol Monitor BGs (9) Coronary artery disease: Plan: CAD s/p stent Continue aspirin, atorvastatin, metoprolol (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 Pacemaker interrogation (11) Hypertension: Plan: Continue metoprolol succinate Monitor (12) Dyslipidemia: Plan: Continue atorvastatin DVT Px Lovenox SQ CODE STATUS Full code Disposition Rehab when accepted Admission and Anticipated Discharge Date Admission Date: February 22, 2024 Subjective Patient is seen and examined at bedside States feeling better today No new complaints Denies any significant odynophagia Epistaxis, hemoptysis resolved Saturating well on room air Denies any chest pain, nausea, vomiting, abdominal pain Waiting for rehab placement Review of Systems Review of Systems: All systems reviewed & are unremarkable except as noted in Subjective Physical Exam Physical Exam: Physical Exam: Vitals signs as noted above General Appearance:Obese, no apparent distress Head: normocephalic, Atraumatic Eyes: normal inspection, EOMI Neck: supple, Trachea midline Respiratory/Chest: Decreased breath sounds, CTA, No accessory muscle use Cardiovascular: Irregularly irregular, + murmur. +Pacer,+Tachycardia Abdomen/GI:Soft, Non tender, Bowel sounds present Extremities/Musculoskeletal:normal inspection, 1+edema Neurologic/Psych:AAOX3, grossly no focal neurological deficits Skin: normal color, warm Results & Data Results & Data Vital Signs (Past 12 Hours) Vital Signs Temp Pulse Pulse Resp BP Pulse Ox O2 Del Method 02/26/24 14:35 36.5 C 94 H 18 130/72 92 Room Air 02/26/24 14:09 104 H 02/26/24 11:06 36.4 C L 84 18 113/89 Room Air 02/26/24 11:00 Room Air 02/26/24 07:42 79 02/26/24 07:00 36.4 C L 96 H 20 143/89 H 96 Room Air Laboratory Results Short CBC 02/26/24 Range/Units 07:26 WBC 3.88 L (4.8-10.8) K/ul Hgb 9.6 L (12.0-16.0) g/dl Hct 31.3 L (37.0-47.0) % Plt Count 172 (130-400) K/uL BMP 02/26/24 07:26 Sodium 138 Potassium 3.4 L Chloride 100 Carbon Dioxide 32 BUN 23 Creatinine 0.68 Glucose 93 Calcium 9.0 (9) Coronary artery disease Coronary Disease-Associated Artery/Lesion type: [place] artery [place] vs. [place] heart: [place] heart Associated angina: without angina Qualified Code(s): I25.10 - Atherosclerotic heart disease of [place] coronary artery without angina pectoris (11) Hypertension Hypertension type: essential hypertension Qualified Code(s): I10 - Essential (primary) hypertension
[2024-02-26] MEDS: DOXYCYCLINE HYCLATE 100 MG CAP PO ONE (17:49)
[2024-02-26] MEDS: MAGNESIUM OXIDE 400 MG TAB PO SCH (20:32)
[2024-02-27 07:00] LABS: Basophils # (auto) 0.02 K/uL (0.00-0.20); Basophils % (auto) 0.4 %; Eosinophils # (auto) 0.01 K/uL (0.00-0.50); Eosinophils % (auto) 0.2 %; Hematocrit (blood only) 31.6 % (37.0-47.0); Hemoglobin 9.8 g/dl (12.0-16.0); Immature Granulocytes # (auto) 0.05 K/uL (0.01-0.20); Lymphocytes # (auto) 0.62 K/uL (1.20-3.40); Lymphocytes % (auto) 12.3 %; Mean Corpuscular Hemoglobin 23.7 pg (25.0-34.0); Mean Corpuscular Volume 76.3 fL (80.0-100.0); Mean Platelet Volume 9.8 fL (9.4-12.4); Monocytes # (auto) 0.74 K/uL (0.11-0.59); Monocytes % (auto) 14.7 %; Neutrophils # (auto) 3.61 K/uL (1.40-6.50); Neutrophils % (auto) 71.4 %; Platelet Count 199 K/uL (130-400); RDW Coefficient of Variation 20.2 % (11.5-14.5); RDW Standard Deviation 52.9 fL (36.4-46.3); Red Blood Count 4.14 M/uL (4.20-5.40); White Blood Count 5.05 K/ul (4.8-10.8)
[2024-02-27 07:24] LABS: Anisocytosis Present; Ovalocytes 1+; Polychromasia 1+
[2024-02-27 07:56] LABS: BUN Creatinine Ratio 37.5 (10-20); Calcium 9.2 mg/dl (8.6-10.3); Creatinine Clr Calc Pharmacy 59.4 ml/min; Est GFR (African American) 81.3 ml/min; Est GFR (Non-African American) 70.1 ml/min; Magnesium 1.7 mg/dl (1.7-2.4); Potassium 4.1 mmol/L (3.5-5.1)
[2024-02-27] MEDS: MAGNESIUM SULFATE / D5W 1 GM/100 ML BAG IV ONE (10:04)
[2024-02-27] MEDS ORDERED: LEVALBUTEROL HCL 0.63 MG/3 ML NEB NEB PRN (12:09)
--- NOTE | 2024-02-27 13:00 | XRay Report ---
XR chest 1V portable HISTORY: 78 years-old Female Dsypnea COMPARISON: 02/22/2024 TECHNIQUE: AP view of the chest FINDINGS: Cardiomediastinal and hilar silhouettes are unchanged. Coronary arterial stent. Dual-lead left subcla vian pacer. Mild right hemidiaphragmatic elevation redemonstrated. The lungs are clear. No pneumothor ax or pleural effusion. Right humeral head surgical anchors. Right upper quadrant surgical clips. IMPRESSION: No acute process. ACT 112: Negative or not required by law. The above report was generated using voice recognition software. It may contain grammatical, syntax o r spelling errors. Electronically signed by: Michele Maddox M.D. 02/27/2024 12:59 PM
[2024-02-27] MEDS: ARTIFICIAL TEARS OP PRN (13:26)
--- NOTE | 2024-02-27 15:37 | Hospitalist Progress Note ---
Date of Service February 27, 2024 Assessment & Plan (1) Atrial fibrillation with RVR: Plan: Patient is 78-year-old female with PMH CAD s/p stent, atrial fibrillation, SSS s/p pacemaker, chronic HFpEF, HTN, HLD, DM II, esophageal cancer currently receiving chemo and radiation and others listed below presented to ER from oncology center for tachycardia. A-fib RVR H/O Afib. Previously on anticoagulation with Eliquis (discontinued due to GI bleed issues) Admits to having missed her metoprolol prior to admission due to difficulty swallowing Hyperthyroidism likely contributing as well Resume metoprolol succinate 150 mg twice a day On Lovenox for anticoagulation as below Discussed with endocrinology on 02/23/24: Start methimazole 10 mg twice a day. Needs follow-up with endocrinology as outpatient Monitor and replete electrolytes as needed Also on digoxin Added IV Lopressor as needed Case management to help with discharge planning Waiting for rehab placement/insurance Auth Hyperthyroidism--POA Low TSH, elevated free T4 Started on methimazole 10 mg twice daily Needs follow-up with endocrinology on discharge. Will update prior to discharge as requested. Continue current medications Hypokalemia Hypomagnesemia Replete electrolytes as needed Monitor Minimal epistaxis Afrin as needed Resolved (2) SOB (shortness of breath): (3) Pulmonary embolism: Plan: Acute pulmonary embolism Off Eliquis since 12/2023 secondary to GI bleed. SOB x several days. H/O Esophageal cancer --CTA Chest: Cardiomegaly with bilateral segmental and subsegmental pulmonary emboli and probable associated right heart strain. No pleural effusion or pulmonary infarct. Mild lingular and right middle lobe bronchiectasis with stable subcentimeter nodules including tree-in-bud nodules which are likely infectious or inflammatory. A chronic bronchiolitis such as nontuberculous mycobacterium considered. No lymphadenopathy. --ECHO: EF 45 to 50%. Mild concentric LVH. Mild global hypokinesis of left ventricle. Left atrium is severely dilated. Mild mitral regurgitation, trace tricuspid regurgitation, findings not suggestive of pulmonary hypertension. - IV heparin transition to therapeutic Lovenox Appreciate pulmonology input Discussed with pulmonology on 02/25/2024. 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, gastritis, and on on aspirin and Eliquis in which she was was treated with IV PPI, s/p PRBC transfusion Denies melena, hematochezia recently Continue PPI Monitor CBC GE junction adenocarcinoma Follows with [facility] oncology and radiation oncology Currently undergoing chemotherapy, radiation Needs follow-up with oncology on discharge (5) Neutropenia: Plan: Bronchiectasis Pulmonary nodules WBC: 1.5, Hgb: 9.7 (recent baseline), Plt: 147, ANC: 990 Likely due to chemotherapy No obvious source of infection Abnormal CT chest: Suggestive of bronchiectasis Repeat AFB culture--preliminary negative Empirically received doxycycline for 5 days Appreciate pulmonology input (6) Primary carcinoma of lower third of esophagus: Plan: Dysphagia 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 Currently receiving chemo and radiation Last chemo reported 02/14/[address] Kolb Progressive dysphagia with recent diagnosis esophageal cancer Aspiration precautions Speech consult [employer] Manager consult for assistance with oral supplement Liquid diet for now added Magic mouthwash, Carafate to help with odynophagia (7) Chronic heart failure with preserved ejection fraction (HFpEF): Plan: Appears euvolemic Continue torsemide (8) DM type 2 (diabetes mellitus, type 2): Plan: A1c: 7.4 Hold home glipizide Continue home Lantus NovoLog sliding scale per protocol Monitor BGs (9) Coronary artery disease: Plan: CAD s/p stent Continue aspirin, atorvastatin, metoprolol (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 Pacemaker interrogation (11) Hypertension: Plan: Continue metoprolol succinate Monitor (12) Dyslipidemia: Plan: Continue atorvastatin DVT Px Lovenox SQ CODE STATUS Full code Disposition Rehab when accepted Admission and Anticipated Discharge Date Admission Date: February 22, 2024 Subjective Patient is seen and examined at bedside States having dyspnea on exertion Still has minimal cough No other complaints today Chest x-ray showed no acute findings Denies any chest pain, nausea, vomiting, abdominal pain Waiting for rehab placement Review of Systems Review of Systems: All systems reviewed & are unremarkable except as noted in Subjective Physical Exam Physical Exam: Physical Exam: Vitals signs as noted above General Appearance:Obese, no apparent distress Head: normocephalic, Atraumatic Eyes: normal inspection, EOMI Neck: supple, Trachea midline Respiratory/Chest: Decreased breath sounds, CTA, No accessory muscle use Cardiovascular: Irregularly irregular, + murmur. +Pacer Abdomen/GI:Soft, Non tender, Bowel sounds present Extremities/Musculoskeletal:normal inspection, 1+edema Neurologic/Psych:AAOX3, grossly no focal neurological deficits Skin: normal color, warm Results & Data Results & Data Vital Signs (Past 12 Hours) Vital Signs Temp Pulse Pulse Resp BP Pulse Ox O2 Del Method 02/27/24 15:35 36.5 C 87 14 107/63 99 Room Air 02/27/24 07:30 36.3 C L 83 24 130/73 97 Room Air 02/27/24 07:24 71 02/27/24 03:43 36.3 C L 84 18 122/74 98 Room Air Laboratory Results Short CBC 02/27/24 Range/Units 06:39 WBC 5.05 (4.8-10.8) K/ul Hgb 9.8 L (12.0-16.0) g/dl Hct 31.6 L (37.0-47.0) % Plt Count 199 (130-400) K/uL BMP 02/27/24 06:39 Sodium 138 Potassium 4.1 D Chloride 100 Carbon Dioxide 30 BUN 30 H Creatinine 0.80 Glucose 92 Calcium 9.2 (9) Coronary artery disease Coronary Disease-Associated Artery/Lesion type: [place] artery [place] vs. transplanted heart: [place] heart Associated angina: without angina Qualified Code(s): I25.10 - Atherosclerotic heart disease of [place] coronary artery without angina pectoris (11) Hypertension Hypertension type: essential hypertension Qualified Code(s): I10 - Essential (primary) hypertension
[2024-02-28 06:39] LABS: BUN Creatinine Ratio 44.9 (10-20); Calcium 8.7 mg/dl (8.6-10.3); Creatinine Clr Calc Pharmacy 60.5 ml/min; Est GFR (African American) 83.8 ml/min; Est GFR (Non-African American) 72.3 ml/min; Magnesium 1.6 mg/dl (1.7-2.4); Potassium 4.3 mmol/L (3.5-5.1)
[2024-02-28] MEDS: MAGNESIUM SULFATE / D5W 1 GM/100 ML BAG IV SCH (12:40)
--- NOTE | 2024-02-28 17:35 | Hospitalist Progress Note ---
Date of Service February 28, 2024 Assessment & Plan (1) Atrial fibrillation with RVR: Plan: Patient is 78-year-old female with PMH CAD s/p stent, atrial fibrillation, SSS s/p pacemaker, chronic HFpEF, HTN, HLD, DM II, esophageal cancer currently receiving chemo and radiation and others listed below presented to ER from oncology center for tachycardia. A-fib RVR H/O Afib. Previously on anticoagulation with Eliquis (discontinued due to GI bleed issues) Admits to having missed her metoprolol prior to admission due to difficulty swallowing Hyperthyroidism likely contributing as well Resume metoprolol succinate 150 mg twice a day On Lovenox for anticoagulation as below Discussed with endocrinology on 02/23/24: Start methimazole 10 mg twice a day. Needs follow-up with endocrinology as outpatient Monitor and replete electrolytes as needed Also on digoxin Added IV Lopressor as needed Stable for discharge Waiting for SNF placement Hyperthyroidism--POA Low TSH, elevated free T4 Started on methimazole 10 mg twice daily Needs follow-up with endocrinology on discharge. Will update prior to discharge as requested. Continue current medications Hypokalemia Hypomagnesemia Replete electrolytes as needed Monitor Minimal epistaxis Afrin as needed Resolved (2) SOB (shortness of breath): (3) Pulmonary embolism: Plan: Acute pulmonary embolism Off Eliquis since 12/2023 secondary to GI bleed. SOB x several days. H/O Esophageal cancer --CTA Chest: Cardiomegaly with bilateral segmental and subsegmental pulmonary emboli and probable associated right heart strain. No pleural effusion or pulmonary infarct. Mild lingular and right middle lobe bronchiectasis with stable subcentimeter nodules including tree-in-bud nodules which are likely infectious or inflammatory. A chronic bronchiolitis such as nontuberculous mycobacterium considered. No lymphadenopathy. --ECHO: EF 45 to 50%. Mild concentric LVH. Mild global hypokinesis of left ventricle. Left atrium is severely dilated. Mild mitral regurgitation, trace tricuspid regurgitation, findings not suggestive of pulmonary hypertension. - IV heparin transition to therapeutic Lovenox Appreciate pulmonology input Discussed with pulmonology on 02/25/2024. 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, gastritis, and on on aspirin and Eliquis in which she was was treated with IV PPI, s/p PRBC transfusion Denies melena, hematochezia recently Continue PPI Monitor CBC GE junction adenocarcinoma Follows with [facility] oncology and radiation oncology Currently undergoing chemotherapy, radiation Needs follow-up with oncology on discharge Had radiation therapy today (5) Neutropenia: Plan: Bronchiectasis Pulmonary nodules WBC: 1.5, Hgb: 9.7 (recent baseline), Plt: 147, ANC: 990 Likely due to chemotherapy No obvious source of infection Abnormal CT chest: Suggestive of bronchiectasis Repeat AFB culture--preliminary negative Empirically received doxycycline for 5 days Appreciate pulmonology input Neutropenia improved (6) Primary carcinoma of lower third of esophagus: Plan: Dysphagia 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 Currently receiving chemo and radiation Last chemo reported 02/14/[address] Kolb Progressive dysphagia with recent diagnosis esophageal cancer Aspiration precautions Speech consult Skin Former consult for assistance with oral supplement Liquid diet for now added Magic mouthwash, Carafate to help with odynophagia (7) Chronic heart failure with preserved ejection fraction (HFpEF): Plan: Appears euvolemic Continue torsemide (8) DM type 2 (diabetes mellitus, type 2): Plan: A1c: 7.4 Hold home glipizide Continue home Lantus NovoLog sliding scale per protocol Monitor BGs (9) Coronary artery disease: Plan: CAD s/p stent Continue aspirin, atorvastatin, metoprolol (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 Pacemaker interrogation (11) Hypertension: Plan: Continue metoprolol succinate Monitor (12) Dyslipidemia: Plan: Continue atorvastatin DVT Px Lovenox SQ CODE STATUS Full code Disposition SNF when accepted Admission and Anticipated Discharge Date Admission Date: February 22, 2024 Subjective Patient is seen and examined at bedside Had radiation therapy today Reports minimal dyspnea on exertion Otherwise no complaints Discussed with radiation oncology today Denies any chest pain, nausea, vomiting, abdominal pain Waiting for rehab placement Review of Systems Review of Systems: All systems reviewed & are unremarkable except as noted in Subjective Physical Exam Physical Exam: Physical Exam: Vitals signs as noted above General Appearance:Obese, no apparent distress Head: normocephalic, Atraumatic Eyes: normal inspection, EOMI Neck: supple, Trachea midline Respiratory/Chest: Decreased breath sounds, CTA, No accessory muscle use Cardiovascular: Irregularly irregular, + murmur. +Pacer Abdomen/GI:Soft, Non tender, Bowel sounds present Extremities/Musculoskeletal:normal inspection, 1+edema Neurologic/Psych:AAOX3, grossly no focal neurological deficits Skin: normal color, warm Results & Data Results & Data Vital Signs (Past 12 Hours) Vital Signs Temp Pulse Pulse Resp BP BP Pulse Ox 02/28/24 17:21 70 02/28/24 12:26 36.4 C L 76 17 116/78 97 02/28/24 12:04 02/28/24 08:02 36.5 C 93 H 19 130/80 98 O2 Del Method 02/28/24 17:21 02/28/24 12:26 Room Air 02/28/24 12:04 Room Air 02/28/24 08:02 Room Air Laboratory Results BMP 02/28/24 06:06 Sodium 138 Potassium 4.3 Chloride 102 Carbon Dioxide 31 BUN 35 H Creatinine 0.78 Glucose 85 Calcium 8.7 (9) Coronary artery disease Coronary Disease-Associated Artery/Lesion type: [place] artery [place] vs. transplanted heart: [place] heart Associated angina: without angina Qualified Code(s): I25.10 - Atherosclerotic heart disease of [place] coronary artery without angina pectoris (11) Hypertension Hypertension type: essential hypertension Qualified Code(s): I10 - Essential (primary) hypertension
[2024-02-29 07:33] LABS: Hematocrit (blood only) 30.4 % (37.0-47.0); Hemoglobin 9.2 g/dl (12.0-16.0); Mean Corpuscular Hemoglobin 23.8 pg (25.0-34.0); Mean Corpuscular Hgb Conc 30.3 g/dL (32.0-36.0); Mean Corpuscular Volume 78.6 fL (80.0-100.0); Mean Platelet Volume 9.4 fL (9.4-12.4); Platelet Count 194 K/uL (130-400); RDW Coefficient of Variation 20.6 % (11.5-14.5); RDW Standard Deviation 56.3 fL (36.4-46.3); Red Blood Count 3.87 M/uL (4.20-5.40); White Blood Count 4.63 K/ul (4.8-10.8)
[2024-02-29 07:49] LABS: BUN Creatinine Ratio 44.6 (10-20); Calcium 8.7 mg/dl (8.6-10.3); Creatinine Clr Calc Pharmacy 63.8 ml/min; Est GFR (African American) 89.3 ml/min; Est GFR (Non-African American) 77.1 ml/min; Magnesium 1.5 mg/dl (1.7-2.4); Potassium 4.2 mmol/L (3.5-5.1)
--- NOTE | 2024-02-29 09:57 | Hospitalist Progress Note ---
Date of Service February 29, 2024 Assessment & Plan (1) Atrial fibrillation with RVR: Plan: Patient is 78-year-old female with PMH CAD s/p stent, atrial fibrillation, SSS s/p pacemaker, chronic HFpEF, HTN, HLD, DM II, esophageal cancer currently receiving chemo and radiation and others listed below presented to ER from oncology center for tachycardia. A-fib RVR H/O Afib. Previously on anticoagulation with Eliquis (discontinued due to GI bleed issues) Admits to having missed her metoprolol prior to admission due to difficulty swallowing Hyperthyroidism likely contributing as well Resume metoprolol succinate 150 mg twice a day On Lovenox for anticoagulation as below Discussed with endocrinology on 02/23/24: Start methimazole 10 mg twice a day. Needs follow-up with endocrinology as outpatient Monitor and replete electrolytes as needed Also on digoxin Added IV Lopressor as needed Stable for discharge Waiting for SNF placement Hyperthyroidism--POA Low TSH, elevated free T4 Started on methimazole 10 mg twice daily Needs follow-up with endocrinology on discharge. Will update prior to discharge as requested. Continue current medications Electrolyte imbalance Hypokalemia Hypomagnesemia Replete electrolytes as needed Will monitor electrolytes Minimal epistaxis Afrin as needed Resolved (2) SOB (shortness of breath): (3) Pulmonary embolism: Plan: Acute pulmonary embolism Off Eliquis since 12/2023 secondary to GI bleed. SOB x several days. H/O Esophageal cancer --CTA Chest: Cardiomegaly with bilateral segmental and subsegmental pulmonary emboli and probable associated right heart strain. No pleural effusion or pulmonary infarct. Mild lingular and right middle lobe bronchiectasis with stable subcentimeter nodules including tree-in-bud nodules which are likely infectious or inflammatory. A chronic bronchiolitis such as nontuberculous mycobacterium considered. No lymphadenopathy. --ECHO: EF 45 to 50%. Mild concentric LVH. Mild global hypokinesis of left ventricle. Left atrium is severely dilated. Mild mitral regurgitation, trace tricuspid regurgitation, findings not suggestive of pulmonary hypertension. - IV heparin transition to therapeutic Lovenox Appreciate pulmonology input Discussed with pulmonology on 02/25/2024. 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, gastritis, and on on aspirin and Eliquis in which she was was treated with IV PPI, s/p PRBC transfusion Denies melena, hematochezia recently Continue PPI Monitor CBC- hemoglobin remained stable Progressive dysphagia Secondary to # GE junction adenocarcinoma Follows with [facility] oncology and radiation oncology Currently undergoing chemotherapy-no more chemotherapy, ongoing radiation Needs follow-up with oncology on discharge No more chemotherapy as per the patient Ongoing radiation therapy and will have about 4 more therapy session Minimally improved swallowing Appreciate speech evaluation and recommendation no acute recurrent can do to Patient does not want to go for any PEG tube placement (5) Neutropenia: Plan: Bronchiectasis Pulmonary nodules WBC: 1.5, Hgb: 9.7 (recent baseline), Plt: 147, ANC: 990 Likely due to chemotherapy No obvious source of infection Abnormal CT chest: Suggestive of bronchiectasis Repeat AFB culture--preliminary negative Empirically received doxycycline for 5 days Appreciate pulmonology input Neutropenia improved (6) Primary carcinoma of lower third of esophagus: (7) Chronic heart failure with preserved ejection fraction (HFpEF): Plan: Appears euvolemic Continue torsemide (8) DM type 2 (diabetes mellitus, type 2): Plan: A1c: 7.4 Hold home glipizide Continue home Lantus NovoLog sliding scale per protocol Monitor BGs (9) Coronary artery disease: Plan: CAD s/p stent Continue aspirin, atorvastatin, metoprolol (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 Pacemaker interrogation (11) Hypertension: Plan: Continue metoprolol succinate Monitor (12) Dyslipidemia: Plan: Continue atorvastatin DVT Px Lovenox SQ CODE STATUS Full code Disposition SNF when accepted Admission and Anticipated Discharge Date Admission Date: February 22, 2024 Subjective 02/29/2024 Patient was seen and examined in medical floor She continues to have problems with swallowing She has been getting radiation treatment with some improvement She also has not had a bowel movement for the last 6 days with abdominal bloating without nausea and/or vomiting Review of Systems Review of Systems: All systems reviewed and are unremarkable except as noted below Physical Exam Physical Exam: Sitting on a chair without any acute distress Constitutional: + ill appearing and average body habitus Eyes: PERRL, conjunctivae normal, anicteric sclerae ENMT: external ear and nose normal, oropharynx normal Neck: trachea midline, no thyromegaly Respiratory: no respiratory distress Auscultation: lungs clear to auscultation bilaterally Cardiovascular: Rate/Rhythm: regular rate and regular rhythm; not tachycardic Heart Sounds: normal S1 and normal S2; no murmur Extremities: no edema Gastrointestinal (Abdomen): Inspection/Auscultation: normal bowel sounds; abdomen not distended Percussion/Palpation: + abdomen tender (Mildly tender epigastrium) and abdomen soft Musculoskeletal: No acute arthritis involving any of the joint Neurologic: normal touch/pain/proprioception and moves all extremities; no focal motor deficits Lymphatic: no cervical or axillary lymphadenopathy Results & Data Results & Data Vital Signs (Past 12 Hours) Vital Signs Temp Pulse Resp BP Pulse Ox O2 Del Method 02/29/24 07:44 36.6 C 82 16 125/84 98 Room Air Laboratory Results Short CBC 02/29/24 Range/Units 06:37 WBC 4.63 L (4.8-10.8) K/ul Hgb 9.2 L (12.0-16.0) g/dl Hct 30.4 L (37.0-47.0) % Plt Count 194 (130-400) K/uL BMP 02/29/24 06:37 Sodium 139 Potassium 4.2 Chloride 101 Carbon Dioxide 32 BUN 33 H Creatinine 0.74 Glucose 106 H Calcium 8.7 Medications Administered Current Inpatient Medications Acetaminophen (Acetaminophen 325 Mg Tab) 650 mg PO Q4H PRN PRN Reason: Pain or Fever Stop: 03/23/24 14:54 Artificial Tears (Artificial Tears) 1 drops OP Q2H PRN PRN Reason: Dry Eyes Stop: 03/23/24 15:01 Last Admin: 02/27/24 13:27 Dose: 1 ea Aspirin (Aspirin 81 Mg Ectab) [facility] [place] Stop: 03/24/24 08:59 Last Admin: 02/29/24 10:10 Dose: 81 mg Atorvastatin Calcium (Atorvastatin 40 Mg Tab) 40 mg PO QAM [facility] Stop: 03/24/24 08:59 Last Admin: 02/29/24 10:10 Dose: 40 mg Calcium/Vitamin D (Calcium 600mg + Vit D 400 Iu Tab) 1 tab PO BID [facility] Stop: 03/23/24 20:59 Last Admin: 02/29/24 10:10 Dose: 1 tab Dextrose (Dextrose 50% 50 Ml Syringe) 25 - 50 ml IV UD PRN; Protocol PRN Reason: Hypoglycemia Protocol Stop: 03/23/24 14:54 Digoxin (Digoxin 0.125 Mg Tab) 0.125 mg PO DAILY@1600 [facility] Stop: 03/23/24 15:59 Last Admin: 02/29/24 17:50 Dose: 0.125 mg Docusate Sodium (Docusate Sodium 100 Mg Cap) 100 mg PO BID PRN PRN Reason: Constipation Stop: 03/24/24 20:59 Enoxaparin Sodium (Enoxaparin 100 Mg/1ml Syr) 90 mg SQ Q12 [facility] Stop: 03/24/24 08:59 Last Admin: 02/29/24 10:09 Dose: 90 mg Glucagon (Glucagon For Inj 1 Mg Vial) 1 mg SQ UD PRN; Protocol PRN Reason: Hypoglycemia Protocol Stop: 03/23/24 14:54 Glucose (Glucose 40% Gel 15 Gm Tube) 15 - 30 gm PO UD PRN; Protocol PRN Reason: Hypoglycemia Protocol Stop: 03/23/24 14:54 Glucose (Glucose 10 Tab/Tube) 4 - 8 tab PO UD PRN; Protocol PRN Reason: Hypoglycemia Treatment Stop: 03/23/24 14:54 Guaifenesin/Dextromethorphan (Guaifenesin/Dextrom Syrup 100mg/10mg 5ml Udc) 5 ml PO Q6H [facility] Stop: 03/26/24 13:29 Last Admin: 02/29/24 13:19 Dose: 5 ml Insulin Aspart (Insulin Aspart Per Unit Charge) 0 units SC ACHS [facility] Stop: 03/23/24 16:29 Last Admin: 02/29/24 17:46 Dose: 3 units Insulin Glargine (Lantus Per Unit Charge) 0 - 20 units SQ BID [facility] Stop: 03/23/24 20:59 Last Admin: 02/29/24 08:14 Dose: 7 units Levalbuterol HCl (Levalbuterol Hcl 0.63 Mg/3 Ml Neb) 0.63 mg NEB Q6R PRN; Protocol PRN Reason: Shortness Of Breath Or Wheezing Stop: 03/28/24 12:08 Loratadine (Loratadine 10 Mg Tab) 10 mg PO DAILY PRN PRN Reason: allergies Stop: 03/23/24 14:54 Magnesium Oxide (Magnesium Oxide 400 Mg Tab) 400 mg PO BID [facility] Stop: 03/27/24 20:59 Last Admin: 02/29/24 10:09 Dose: 400 mg Methimazole (Methimazole 5 Mg Tablet) 10 mg PO BID [facility] Stop: 03/24/24 20:59 Last Admin: 02/29/24 10:10 Dose: 10 mg Metoprolol Succinate (Metoprolol Succ 50mg Ext Rel Tab) 150 mg PO BID [facility] Stop: 03/24/24 20:59 Last Admin: 02/29/24 10:10 Dose: 150 mg Metoprolol Tartrate (Metoprolol Tartrate 1 Mg/Ml Vial) 5 mg IV Q6H PRN PRN Reason: Tachycardia HR>110 Stop: 03/25/24 12:24 Midodrine (Midodrine Hcl 2.5 Mg Tab) 2.5 mg PO TID@0800,1200,1600 [facility] Stop: 03/23/24 15:59 Last Admin: 02/29/24 17:49 Dose: 2.5 mg Miscellaneous (Carbohydrates For Hypoglycemia ) 15 - 30 gm PO UD PRN PRN Reason: Hypoglycemia Protocol Stop: 03/23/24 14:54 Last Admin: 02/24/24 08:26 Dose: 15 gm Multi-Ingredient Cream (Artificial Tears Op Oint 3.5 Gm Tube) 1 appln OP TID [facility] Stop: 03/24/24 13:59 Last Admin: 02/29/24 13:21 Dose: 1 appln Multi-Ingredient Mouthwash/Gargle (First - Mouthwash Blm 119 Ml) 5 ml MT QID [facility] Stop: 03/24/24 10:59 Last Admin: 02/29/24 17:46 Dose: 5 ml Ondansetron HCl (Ondansetron Inj 2 Mg/Ml 2 Ml Vial) 4 mg IV Q6H PRN PRN Reason: Nausea Stop: 03/23/24 14:54 Oxybutynin Chloride (Oxybutynin Chloride 5 Mg Tab) 5 mg PO BID [facility] Stop: 03/23/24 20:59 Last Admin: 02/29/24 10:10 Dose: 5 mg Oxymetazoline HCl (Oxymetazoline 0.05% 30 Ml Btl) 1 sprays NA Q8H PRN PRN Reason: epistaxis Stop: 03/26/24 10:17 Last Admin: 02/26/24 12:36 Dose: 1 sprays Pantoprazole Sodium (Pantoprazole 40 Mg Tab) 40 mg PO BID [facility] Stop: 03/23/24 20:59 Last Admin: 02/29/24 10:10 Dose: 40 mg Polyethylene Glycol (Polyethylene (Miralax) 17 Gm Pack) 17 gm PO DAILY [facility] Stop: 03/24/24 13:59 Last Admin: 02/29/24 10:11 Dose: Not Given Sucralfate (Sucralfate 1 Gm Tab) 1 gm PO QID [facility] Stop: 03/05/24 12:59 Last Admin: 02/29/24 17:49 Dose: 1 gm Torsemide (Torsemide 10 Mg Tab) 10 mg PO DAILY [facility] Stop: 03/24/24 08:59 Last Admin: 02/29/24 10:09 Dose: 10 mg (9) Coronary artery disease Associated angina: without angina Coronary Disease-Associated Artery/Lesion type: [place] artery [place] vs. transplanted heart: [place] heart Qualified Code(s): I25.10 - Atherosclerotic heart disease of [place] coronary artery without angina pectoris (11) Hypertension Hypertension type: essential hypertension Qualified Code(s): I10 - Essential (primary) hypertension
[2024-02-29] MEDS: MAGNESIUM SULFATE / D5W 1 GM/100 ML BAG IV SCH (10:17)
[2024-02-29] MEDS: bisacodyL 10 MG SUPP PR ONE (13:19)
[2024-02-29] MEDS: bisacodyL 10 MG SUPP PR STA (13:20)
[2024-03-01 07:06] LABS: Basophils # (auto) 0.02 K/uL (0.00-0.20); Basophils % (auto) 0.4 %; Eosinophils # (auto) 0.01 K/uL (0.00-0.50); Eosinophils % (auto) 0.2 %; Hematocrit (blood only) 32.2 % (37.0-47.0); Hemoglobin 9.8 g/dl (12.0-16.0); Immature Granulocytes # (auto) 0.04 K/uL (0.01-0.20); Immature Granulocytes % (auto) 0.9 %; Lymphocytes # (auto) 0.39 K/uL (1.20-3.40); Lymphocytes % (auto) 8.6 %; Mean Corpuscular Hemoglobin 23.6 pg (25.0-34.0); Mean Corpuscular Hgb Conc 30.4 g/dL (32.0-36.0); Mean Corpuscular Volume 77.6 fL (80.0-100.0); Mean Platelet Volume 9.9 fL (9.4-12.4); Monocytes # (auto) 0.57 K/uL (0.11-0.59); Monocytes % (auto) 12.5 %; Neutrophils # (auto) 3.53 K/uL (1.40-6.50); Neutrophils % (auto) 77.4 %; Platelet Count 228 K/uL (130-400); RDW Standard Deviation 56.4 fL (36.4-46.3); Red Blood Count 4.15 M/uL (4.20-5.40); White Blood Count 4.56 K/ul (4.8-10.8)
[2024-03-01 07:33] LABS: Anisocytosis Present; Poikilocytosis Present
[2024-03-01 08:05] LABS: Magnesium 1.5 mg/dl (1.7-2.4); Potassium 3.9 mmol/L (3.5-5.1)
[2024-03-01 08:11] LABS: BUN Creatinine Ratio 41.9 (10-20); Creatinine Clr Calc Pharmacy 63.8 ml/min; Est GFR (African American) 89.3 ml/min; Est GFR (Non-African American) 77.1 ml/min; Phosphorus 3.3 mg/dl (2.5-4.9)
--- NOTE | 2024-03-01 13:17 | Hospitalist Progress Note ---
Date of Service March 01, 2024 Assessment & Plan (1) Atrial fibrillation with RVR: Plan: Patient is 78-year-old female with PMH CAD s/p stent, atrial fibrillation, SSS s/p pacemaker, chronic HFpEF, HTN, HLD, DM II, esophageal cancer currently receiving chemo and radiation and others listed below presented to ER from oncology center for tachycardia. A-fib RVR H/O Afib. Previously on anticoagulation with Eliquis (discontinued due to GI bleed issues) Admits to having missed her metoprolol prior to admission due to difficulty swallowing Hyperthyroidism likely contributing as well Resume metoprolol succinate 150 mg twice a day On Lovenox for anticoagulation as below Discussed with endocrinology on 02/23/24: Start methimazole 10 mg twice a day. Needs follow-up with endocrinology as outpatient Monitor and replete electrolytes as needed Also on digoxin Added IV Lopressor as needed Stable for discharge Rate is controlled without any cardiac symptoms Hyperthyroidism--POA Low TSH, elevated free T4 Started on methimazole 10 mg twice daily Needs follow-up with endocrinology on discharge. Will update prior to discharge as requested. 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, gastritis, and on on aspirin and Eliquis in which she was was treated with IV PPI, s/p PRBC transfusion Denies melena, hematochezia recently Continue PPI Monitor CBC- hemoglobin remained stable Progressive dysphagia Secondary to # GE junction adenocarcinoma [facility] Currently undergoing chemotherapy-no more chemotherapy, ongoing radiation Needs follow-up with oncology on discharge No more chemotherapy as per the patient Ongoing radiation therapy and will have about 4 more therapy session Minimally improved swallowing Appreciate speech evaluation and recommendation no acute recurrent can do to Patient does not want to go for any PEG tube placement Has been tolerating liquid diet and remains reasonably medically stable Will transfer to [facility] tomorrow (3) SOB (shortness of breath): (4) Pulmonary embolism: Plan: Acute pulmonary embolism Off Eliquis since 12/2023 secondary to GI bleed. SOB x several days. H/O Esophageal cancer --CTA Chest: Cardiomegaly with bilateral segmental and subsegmental pulmonary emboli and probable associated right heart strain. No pleural effusion or pulmonary infarct. Mild lingular and right middle lobe bronchiectasis with stable subcentimeter nodules including tree-in-bud nodules which are likely infectious or inflammatory. A chronic bronchiolitis such as nontuberculous mycobacterium considered. No lymphadenopathy. --ECHO: EF 45 to 50%. Mild concentric LVH. Mild global hypokinesis of left ventricle. Left atrium is severely dilated. Mild mitral regurgitation, trace tricuspid regurgitation, findings not suggestive of pulmonary hypertension. - IV heparin transition to therapeutic Lovenox Appreciate pulmonology input Discussed with pulmonology on 02/25/2024. No contraindication for discharge from respiratory standpoint Chest x-ray today showed no acute findings Continue Lovenox for anticoagulation Mild troponin elevation Likely demand ischemia secondary to above Doubt ACS (5) Neutropenia: Plan: Bronchiectasis Pulmonary nodules WBC: 1.5, Hgb: 9.7 (recent baseline), Plt: 147, ANC: 990 Likely due to chemotherapy No obvious source of infection Abnormal CT chest: Suggestive of bronchiectasis Repeat AFB culture--preliminary negative Empirically received doxycycline for 5 days Appreciate pulmonology input Neutropenia improved (6) Primary carcinoma of lower third of esophagus: Plan: As above No more chemo as per the oncologist and the patient Ongoing radiation treatment She will have remaining radiation from the facility She was asking for prognosis which I deferred to the oncologist In general prognosis is guarded (7) Chronic heart failure with preserved ejection fraction (HFpEF): Plan: Appears euvolemic Continue torsemide (8) DM type 2 (diabetes mellitus, type 2): Plan: A1c: 7.4 Hold home glipizide Continue home Lantus NovoLog sliding scale per protocol Monitor BGs (9) Coronary artery disease: Plan: CAD s/p stent Continue aspirin, atorvastatin, metoprolol (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 Pacemaker interrogation (11) Hypertension: Plan: Continue metoprolol succinate Monitor (12) Dyslipidemia: Plan: Continue atorvastatin DVT Px Lovenox SQ CODE STATUS Full code Disposition SNF when accepted Admission and Anticipated Discharge Date Admission Date: February 22, 2024 Subjective 02/29/2024 Patient was seen and examined in medical floor She continues to have problems with swallowing She has been getting radiation treatment with some improvement She also has not had a bowel movement for the last 6 days with abdominal bloating without nausea and/or vomiting 03/01/2024 The patient was seen and examined in medical floor She remains generally weak and gets easily short of breath with exertion Tolerating liquid diet but still has nausea If well will be transferred to [facility] tomorrow Review of Systems Review of Systems: All systems reviewed and are unremarkable except as noted below Physical Exam Physical Exam: Sitting on a chair without any acute distress Constitutional: + ill appearing and average body habitus Eyes: PERRL, conjunctivae normal, anicteric sclerae ENMT: external ear and nose normal, oropharynx normal Neck: trachea midline, no thyromegaly Respiratory: no respiratory distress Auscultation: lungs clear to auscultation bilaterally Cardiovascular: Rate/Rhythm: regular rate and regular rhythm; not tachycardic Heart Sounds: normal S1 and normal S2; no murmur Extremities: no edema Gastrointestinal (Abdomen): Inspection/Auscultation: normal bowel sounds; abdomen not distended Percussion/Palpation: + abdomen tender (Mildly tender epigastrium) and abdomen soft Neurologic: normal touch/pain/proprioception and moves all extremities; no focal motor deficits Lymphatic: no cervical or axillary lymphadenopathy Results & Data Results & Data Vital Signs (Past 12 Hours) Vital Signs Temp Pulse Pulse Resp BP BP Pulse Ox 03/01/24 11:40 36.4 C L 82 17 118/60 98 03/01/24 08:25 03/01/24 07:38 36.6 C 80 17 104/74 97 03/01/24 07:17 36.8 C 89 16 109/71 99 O2 Del Method 03/01/24 11:40 Room Air 03/01/24 08:25 Room Air 03/01/24 07:38 Room Air 03/01/24 07:17 Room Air Laboratory Results Short CBC 03/01/24 Range/Units 06:40 WBC 4.56 L (4.8-10.8) K/ul Hgb 9.8 L (12.0-16.0) g/dl Hct 32.2 L (37.0-47.0) % Plt Count 228 (130-400) K/uL BMP 03/01/24 06:40 Sodium 139 Potassium 3.9 Chloride 100 Carbon Dioxide 32 BUN 31 H Creatinine 0.74 Glucose 102 H Calcium 9.0 Medications Administered Current Inpatient Medications Acetaminophen (Acetaminophen 325 Mg Tab) 650 mg PO Q4H PRN PRN Reason: Pain or Fever Stop: 03/23/24 14:54 Artificial Tears (Artificial Tears) 1 drops OP Q2H PRN PRN Reason: Dry Eyes Stop: 03/23/24 15:01 Last Admin: 02/27/24 13:27 Dose: 1 ea Aspirin (Aspirin 81 Mg Ectab) 81 mg PO QAM [facility] Stop: 03/24/24 08:59 Last Admin: 03/01/24 10:15 Dose: 81 mg Atorvastatin Calcium (Atorvastatin 40 Mg Tab) 40 mg PO QAM [facility] Stop: 03/24/24 08:59 Last Admin: 03/01/24 10:16 Dose: 40 mg Calcium/Vitamin D (Calcium 600mg + Vit D 400 Iu Tab) 1 tab PO BID [facility] Stop: 03/23/24 20:59 Last Admin: 03/01/24 10:16 Dose: 1 tab Dextrose (Dextrose 50% 50 Ml Syringe) 25 - 50 ml IV UD PRN; Protocol PRN Reason: Hypoglycemia Protocol Stop: 03/23/24 14:54 Digoxin (Digoxin 0.125 Mg Tab) 0.125 mg PO DAILY@1600 [facility] Stop: 03/23/24 15:59 Last Admin: 02/29/24 17:50 Dose: 0.125 mg Docusate Sodium (Docusate Sodium 100 Mg Cap) 100 mg PO BID PRN PRN Reason: Constipation Stop: 03/24/24 20:59 Enoxaparin Sodium (Enoxaparin 100 Mg/1ml Syr) 90 mg SQ Q12 [facility] Stop: 03/24/24 08:59 Last Admin: 03/01/24 10:17 Dose: 90 mg Glucagon (Glucagon For Inj 1 Mg Vial) 1 mg SQ UD PRN; Protocol PRN Reason: Hypoglycemia Protocol Stop: 03/23/24 14:54 Glucose (Glucose 40% Gel 15 Gm Tube) 15 - 30 gm PO UD PRN; Protocol PRN Reason: Hypoglycemia Protocol Stop: 03/23/24 14:54 Glucose (Glucose 10 Tab/Tube) 4 - 8 tab PO UD PRN; Protocol PRN Reason: Hypoglycemia Treatment Stop: 03/23/24 14:54 Guaifenesin/Dextromethorphan (Guaifenesin/Dextrom Syrup 100mg/10mg 5ml Udc) 5 ml PO Q6H [facility] Stop: 03/26/24 13:29 Last Admin: 03/01/24 10:12 Dose: Not Given Insulin Aspart (Insulin Aspart Per Unit Charge) 0 units SC ACHS [facility] Stop: 03/23/24 16:29 Last Admin: 03/01/24 13:07 Dose: 1 units Insulin Glargine (Lantus Per Unit Charge) 0 - 20 units SQ BID [facility] Stop: 03/23/24 20:59 Last Admin: 03/01/24 08:09 Dose: 7 units Levalbuterol HCl (Levalbuterol Hcl 0.63 Mg/3 Ml Neb) 0.63 mg NEB Q6R PRN; Protocol PRN Reason: Shortness Of Breath Or Wheezing Stop: 03/28/24 12:08 Loratadine (Loratadine 10 Mg Tab) 10 mg PO DAILY PRN PRN Reason: allergies Stop: 03/23/24 14:54 Magnesium Oxide (Magnesium Oxide 400 Mg Tab) 400 mg PO BID [facility] Stop: 03/27/24 20:59 Last Admin: 03/01/24 10:18 Dose: 400 mg Methimazole (Methimazole 5 Mg Tablet) 10 mg PO BID [facility] Stop: 03/24/24 20:59 Last Admin: 03/01/24 10:18 Dose: 10 mg Metoprolol Succinate (Metoprolol Succ 50mg Ext Rel Tab) 150 mg PO BID [facility] Stop: 03/24/24 20:59 Last Admin: 03/01/24 10:19 Dose: 150 mg Metoprolol Tartrate (Metoprolol Tartrate 1 Mg/Ml Vial) 5 mg IV Q6H PRN PRN Reason: Tachycardia HR>110 Stop: 03/25/24 12:24 Midodrine (Midodrine Hcl 2.5 Mg Tab) 2.5 mg PO TID@0800,1200,1600 [facility] Stop: 03/23/24 15:59 Last Admin: 03/01/24 13:06 Dose: 2.5 mg Miscellaneous (Carbohydrates For Hypoglycemia ) 15 - 30 gm PO UD PRN PRN Reason: Hypoglycemia Protocol Stop: 03/23/24 14:54 Last Admin: 02/24/24 08:26 Dose: 15 gm Multi-Ingredient Cream (Artificial Tears Op Oint 3.5 Gm Tube) 1 appln OP TID [facility] Stop: 03/24/24 13:59 Last Admin: 03/01/24 10:15 Dose: Not Given Multi-Ingredient Mouthwash/Gargle (First - Mouthwash Blm 119 Ml) 5 ml MT QID [facility] Stop: 03/24/24 10:59 Last Admin: 03/01/24 13:07 Dose: Not Given Ondansetron HCl (Ondansetron Inj 2 Mg/Ml 2 Ml Vial) 4 mg IV Q6H PRN PRN Reason: Nausea Stop: 03/23/24 14:54 Oxybutynin Chloride (Oxybutynin Chloride 5 Mg Tab) 5 mg PO BID [facility] Stop: 03/23/24 20:59 Last Admin: 03/01/24 10:20 Dose: 5 mg Oxymetazoline HCl (Oxymetazoline 0.05% 30 Ml Btl) 1 sprays NA Q8H PRN PRN Reason: epistaxis Stop: 03/26/24 10:17 Last Admin: 02/26/24 12:36 Dose: 1 sprays Pantoprazole Sodium (Pantoprazole 40 Mg Tab) 40 mg PO BID [facility] Stop: 03/23/24 20:59 Last Admin: 03/01/24 10:20 Dose: 40 mg Polyethylene Glycol (Polyethylene (Miralax) 17 Gm Pack) 17 gm PO DAILY [facility] Stop: 03/24/24 13:59 Last Admin: 03/01/24 10:20 Dose: Not Given Sucralfate (Sucralfate 1 Gm Tab) 1 gm PO QID [facility] Stop: 03/05/24 12:59 Last Admin: 03/01/24 13:08 Dose: 1 gm Torsemide (Torsemide 10 Mg Tab) 10 mg PO DAILY [facility] Stop: 03/24/24 08:59 Last Admin: 03/01/24 10:21 Dose: 10 mg (9) Coronary artery disease Coronary Disease-Associated Artery/Lesion type: [place] artery [place] vs. transplanted heart: [place] heart Associated angina: without angina Qualified Code(s): I25.10 - Atherosclerotic heart disease of [place] coronary artery without angina pectoris (11) Hypertension Hypertension type: essential hypertension Qualified Code(s): I10 - Essential (primary) hypertension
[2024-03-02] MEDS: LORATADINE 10 MG TAB PO PRN (08:01)
--- NOTE | 2024-03-02 09:46 | Hospitalist Progress Note ---
Date of Service March 02, 2024 Assessment & Plan (1) Primary carcinoma of lower third of esophagus: Plan: Current symptoms of dysphagia, weakness, shortness of breath on exertion are related to carcinoma and complicated by her comorbid medical condition as menti oned below No more chemo as per the oncologist and the patient Ongoing radiation treatment-Willing to finish the course of radiation She will have remaining radiation from the facility She was asking for prognosis which I deferred to the oncologist In general prognosis is guarded Down the line she is asking for palliative care evaluation which will be done as an outpatient through her primary care physician She will be discharged to [facility] this afternoon (2) Atrial fibrillation with RVR: Plan: Patient is 78-year-old female with PMH CAD s/p stent, atrial fibrillation, SSS s/p pacemaker, chronic HFpEF, HTN, HLD, DM II, esophageal cancer currently receiving chemo and radiation and others listed below presented to ER from oncology center for tachycardia. A-fib RVR H/O Afib. Previously on anticoagulation with Eliquis (discontinued due to GI bleed issues) Admits to having missed her metoprolol prior to admission due to difficulty swallowing Hyperthyroidism likely contributing as well Resume metoprolol succinate 150 mg twice a day On Lovenox for anticoagulation as below Discussed with endocrinology on 02/23/24: Start methimazole 10 mg twice a day. Needs follow-up with endocrinology as outpatient Monitor and replete electrolytes as needed Also on digoxin Added IV Lopressor as needed Stable for discharge Rate is controlled without any cardiac symptoms Hyperthyroidism--POA Low TSH, elevated free T4 Started on methimazole 10 mg twice daily Needs follow-up with endocrinology on discharge. Will update prior to discharge as requested. 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, gastritis, and on on aspirin and Eliquis in which she was was treated with IV PPI, s/p PRBC transfusion Denies melena, hematochezia recently Continue PPI Monitor CBC- hemoglobin remained stable Progressive dysphagia Secondary to # GE junction adenocarcinoma Follows with [facility] and radiation oncology Currently undergoing chemotherapy-no more chemotherapy, ongoing radiation Needs follow-up with oncology on discharge No more chemotherapy as per the patient Ongoing radiation therapy and will have about 4 more therapy session Minimally improved swallowing Appreciate speech evaluation and recommendation no acute recurrent can do to Patient does not want to go for any PEG tube placement Has been tolerating liquid diet and remains reasonably medically stable Remains medically stable and she will be transferred to [facility] this afternoon (4) SOB (shortness of breath): (5) Pulmonary embolism: Plan: Acute pulmonary embolism Off Eliquis since 12/2023 secondary to GI bleed. SOB x several days. H/O Esophageal cancer --CTA Chest: Cardiomegaly with bilateral segmental and subsegmental pulmonary emboli and probable associated right heart strain. No pleural effusion or pulmonary infarct. Mild lingular and right middle lobe bronchiectasis with stable subcentimeter nodules including tree-in-bud nodules which are likely infectious or inflammatory. A chronic bronchiolitis such as nontuberculous mycobacterium considered. No lymphadenopathy. --ECHO: EF 45 to 50%. Mild concentric LVH. Mild global hypokinesis of left ventricle. Left atrium is severely dilated. Mild mitral regurgitation, trace tricuspid regurgitation, findings not suggestive of pulmonary hypertension. - IV heparin transition to therapeutic Lovenox Appreciate pulmonology input Discussed with pulmonology on 02/25/2024. No contraindication for discharge from respiratory standpoint Chest x-ray today showed no acute findings Continue Lovenox for anticoagulation Mild troponin elevation Likely demand ischemia secondary to above Doubt ACS (6) Neutropenia: Plan: Bronchiectasis Pulmonary nodules WBC: 1.5, Hgb: 9.7 (recent baseline), Plt: 147, ANC: 990 Likely due to chemotherapy No obvious source of infection Abnormal CT chest: Suggestive of bronchiectasis Repeat AFB culture--preliminary negative Empirically received doxycycline for 5 days Appreciate pulmonology input Neutropenia improved (7) Chronic heart failure with preserved ejection fraction (HFpEF): Plan: Appears euvolemic Continue torsemide (8) DM type 2 (diabetes mellitus, type 2): Plan: A1c: 7.4 Hold home glipizide Continue home Lantus NovoLog sliding scale per protocol Monitor BGs (9) Coronary artery disease: Plan: CAD s/p stent Continue aspirin, atorvastatin, metoprolol (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 Pacemaker interrogation (11) Hypertension: Plan: Continue metoprolol succinate Monitor (12) Dyslipidemia: Plan: Continue atorvastatin DVT Px Lovenox SQ CODE STATUS Full code Disposition SNF when accepted She will be discharged to [facility] this afternoon Admission and Anticipated Discharge Date Admission Date: February 22, 2024 Subjective 02/29/2024 Patient was seen and examined in medical floor She continues to have problems with swallowing She has been getting radiation treatment with some improvement She also has not had a bowel movement for the last 6 days with abdominal bloating without nausea and/or vomiting 03/01/2024 The patient was seen and examined in medical floor She remains generally weak and gets easily short of breath with exertion Tolerating liquid diet but still has nausea If well will be transferred to [facility] tomorrow 03/02/2024 The patient was seen and examined in medical floor She remains stable Generally weak and is still has nausea Refused to go for radiation treatment today but later on agreed to finish the co urse. She will be going to [facility] this afternoon Review of Systems Review of Systems: All systems reviewed and are unremarkable except as noted below Physical Exam Physical Exam: Sitting on a chair without any acute distress Constitutional: + ill appearing and average body habitus Eyes: PERRL, conjunctivae normal, anicteric sclerae ENMT: external ear and nose normal, oropharynx normal Neck: trachea midline, no thyromegaly Respiratory: no respiratory distress Auscultation: lungs clear to auscultation bilaterally Cardiovascular: Rate/Rhythm: regular rate and regular rhythm; not tachycardic Heart Sounds: normal S1 and normal S2; no murmur Extremities: no edema Gastrointestinal (Abdomen): Inspection/Auscultation: normal bowel sounds; abdomen not distended Percussion/Palpation: + abdomen tender (Mildly tender epigastrium) and abdomen soft Neurologic: normal touch/pain/proprioception and moves all extremities; no focal motor deficits Lymphatic: no cervical or axillary lymphadenopathy Results & Data Results & Data Vital Signs (Past 12 Hours) Vital Signs Temp Pulse Resp BP Pulse Ox O2 Del Method 03/02/24 07:53 36.6 C 79 16 118/67 98 Room Air Medications Administered Current Inpatient Medications Acetaminophen (Acetaminophen 325 Mg Tab) 650 mg PO Q4H PRN PRN Reason: Pain or Fever Stop: 03/23/24 14:54 Artificial Tears (Artificial Tears) 1 drops OP Q2H PRN PRN Reason: Dry Eyes Stop: 03/23/24 15:01 Last Admin: 02/27/24 13:27 Dose: 1 ea Aspirin (Aspirin 81 Mg Ectab) 81 mg PO QAM [facility] Stop: 03/24/24 08:59 Last Admin: 03/02/24 07:59 Dose: 81 mg Atorvastatin Calcium (Atorvastatin 40 Mg Tab) 40 mg PO QAM [facility] Stop: 03/24/24 08:59 Last Admin: 03/02/24 07:59 Dose: 40 mg Calcium/Vitamin D (Calcium 600mg + Vit D 400 Iu Tab) 1 tab PO BID [facility] Stop: 03/23/24 20:59 Last Admin: 03/02/24 08:00 Dose: 1 tab Dextrose (Dextrose 50% 50 Ml Syringe) 25 - 50 ml IV UD PRN; Protocol PRN Reason: Hypoglycemia Protocol Stop: 03/23/24 14:54 Digoxin (Digoxin 0.125 Mg Tab) 0.125 mg PO DAILY@1600 [facility] Stop: 03/23/24 15:59 Last Admin: 03/01/24 17:22 Dose: 0.125 mg Docusate Sodium (Docusate Sodium 100 Mg Cap) 100 mg PO BID PRN PRN Reason: Constipation Stop: 03/24/24 20:59 Enoxaparin Sodium (Enoxaparin 100 Mg/1ml Syr) 90 mg SQ Q12 [facility] Stop: 03/24/24 08:59 Last Admin: 03/02/24 08:01 Dose: 90 mg Glucagon (Glucagon For Inj 1 Mg Vial) 1 mg SQ UD PRN; Protocol PRN Reason: Hypoglycemia Protocol Stop: 03/23/24 14:54 Glucose (Glucose 40% Gel 15 Gm Tube) 15 - 30 gm PO UD PRN; Protocol PRN Reason: Hypoglycemia Protocol Stop: 03/23/24 14:54 Glucose (Glucose 10 Tab/Tube) 4 - 8 tab PO UD PRN; Protocol PRN Reason: Hypoglycemia Treatment Stop: 03/23/24 14:54 Guaifenesin/Dextromethorphan (Guaifenesin/Dextrom Syrup 100mg/10mg 5ml Udc) 5 ml PO Q6H [facility] Stop: 03/26/24 13:29 Last Admin: 03/02/24 07:57 Dose: Not Given Insulin Aspart (Insulin Aspart Per Unit Charge) 0 units SC ACHS [facility] Stop: 03/23/24 16:29 Last Admin: 03/02/24 08:11 Dose: 2 units Insulin Glargine (Lantus Per Unit Charge) 0 - 20 units SQ BID [facility] Stop: 03/23/24 20:59 Last Admin: 03/02/24 08:02 Dose: Not Given Levalbuterol HCl (Levalbuterol Hcl 0.63 Mg/3 Ml Neb) 0.63 mg NEB Q6R PRN; Protocol PRN Reason: Shortness Of Breath Or Wheezing Stop: 03/28/24 12:08 Loratadine (Loratadine 10 Mg Tab) 10 mg PO DAILY PRN PRN Reason: allergies Stop: 03/23/24 14:54 Last Admin: 03/02/24 08:01 Dose: 10 mg Magnesium Oxide (Magnesium Oxide 400 Mg Tab) 400 mg PO BID [facility] Stop: 03/27/24 20:59 Last Admin: 03/02/24 07:59 Dose: 400 mg Methimazole (Methimazole 5 Mg Tablet) 10 mg PO BID [facility] Stop: 03/24/24 20:59 Last Admin: 03/02/24 08:00 Dose: 10 mg Metoprolol Succinate (Metoprolol Succ 50mg Ext Rel Tab) 150 mg PO BID [facility] Stop: 03/24/24 20:59 Last Admin: 03/02/24 08:00 Dose: 150 mg Metoprolol Tartrate (Metoprolol Tartrate 1 Mg/Ml Vial) 5 mg IV Q6H PRN PRN Reason: Tachycardia HR>110 Stop: 03/25/24 12:24 Midodrine (Midodrine Hcl 2.5 Mg Tab) 2.5 mg PO TID@0800,1200,1600 [facility] Stop: 03/23/24 15:59 Last Admin: 03/02/24 08:01 Dose: 2.5 mg Miscellaneous (Carbohydrates For Hypoglycemia ) 15 - 30 gm PO UD PRN PRN Reason: Hypoglycemia Protocol Stop: 03/23/24 14:54 Last Admin: 02/24/24 08:26 Dose: 15 gm Multi-Ingredient Cream (Artificial Tears Op Oint 3.5 Gm Tube) 1 appln OP TID [facility] Stop: 03/24/24 13:59 Last Admin: 03/02/24 08:01 Dose: Not Given Multi-Ingredient Mouthwash/Gargle (First - Mouthwash Blm 119 Ml) 5 ml MT QID [facility] Stop: 03/24/24 10:59 Last Admin: 03/02/24 08:02 Dose: Not Given Ondansetron HCl (Ondansetron Inj 2 Mg/Ml 2 Ml Vial) 4 mg IV Q6H PRN PRN Reason: Nausea Stop: 03/23/24 14:54 Oxybutynin Chloride (Oxybutynin Chloride 5 Mg Tab) 5 mg PO BID [facility] Stop: 03/23/24 20:59 Last Admin: 03/02/24 07:59 Dose: 5 mg Oxymetazoline HCl (Oxymetazoline 0.05% 30 Ml Btl) 1 sprays NA Q8H PRN PRN Reason: epistaxis Stop: 03/26/24 10:17 Last Admin: 02/26/24 12:36 Dose: 1 sprays Pantoprazole Sodium (Pantoprazole 40 Mg Tab) 40 mg PO BID [facility] Stop: 03/23/24 20:59 Last Admin: 03/02/24 07:59 Dose: 40 mg Polyethylene Glycol (Polyethylene (Miralax) 17 Gm Pack) 17 gm PO DAILY [facility] Stop: 03/24/24 13:59 Last Admin: 03/02/24 08:02 Dose: Not Given Sucralfate (Sucralfate 1 Gm Tab) 1 gm PO QID [facility] Stop: 03/05/24 12:59 Last Admin: 03/02/24 07:59 Dose: 1 gm Torsemide (Torsemide 10 Mg Tab) 10 mg PO DAILY [facility] Stop: 03/24/24 08:59 Last Admin: 03/02/24 07:59 Dose: 10 mg (9) Coronary artery disease Coronary Disease-Associated Artery/Lesion type: [place] artery [place] vs. transplanted heart: [place] heart Associated angina: without angina Qualified Code(s): I25.10 - Atherosclerotic heart disease of [place] coronary artery without angina pectoris (11) Hypertension Hypertension type: essential hypertension Qualified Code(s): I10 - Essential (primary) hypertension
--- NOTE | 2024-03-03 07:45 | Discharge Summary ---
Date of Service March 03, 2024 Admission HPI Per Admitting Provider Patient is 78-year-old female with PMH CAD s/p stent, atrial fibrillation, SSS s/p pacemaker, chronic HFpEF, HTN, HLD, DM II, esophageal cancer currently receiving chemo and radiation and others listed below presented to ER from oncology center for tachycardia. History obtained from patient, inpatient and outpatient chart review. 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 During that admission cardiology and GI were consult ed and it was recommended patient hold Eliquis and continue aspirin. Reported shortness of breath x 1 week. Cough for past several months productive clear sputum. Denies increased cough or hematuria. Reports a couple of days ago felt like her heart was pounding hard. Patient states that lasted a short while and then seem to resolve. She states the past several days has been having generalized weakness and "feels like a wet noodle". She uses a rollator walker for ambulating. [facility] has not been ambulating much secondary to weakness. Denies any falls. Denies any headache, chest pain, fever, chills. Denies any noted epistaxis, hematuria, melena, hematochezia. Patient had presented to oncology office today for scheduled There she was found to be tachycardic in the 160s and was sent to ER. Last chemo reported 02/14/24. [facility] was unable to receive chemo secondary to leukopenia. She reports progressive dysphagia Denies fever/chills, diaphoresis, N/V/D/C, SOLORZANO, dizziness, syncope, vision changes, neck pain, CP, orthopnea, sore throat, otalgia, rhinorrhea, abdominal pain, paresthesias, increased extremity edema, rashes, urinary symptoms. Admission Exam Per Admitting Provider Physical Exam: General: no current distress, +chronic ill appearing Head: normocephalic, atraumatic Eyes: conjunctiva non-injected, anicteric ENT: normal inspection external ears, nose, mucous membranes moist Neck: supple, trachea midline Lungs: clear, no respiratory distress, pulse ox 98% on RA, faint rhonchi noted LLL which cleared after coughing, no rales or wheezing noted CV: irregularly irregular, rate 124, 1+pretibial edema Abd: normal BS, soft, non-tender Ext: +brown skin discolorations bilateral lower legs noted, no cyanosis or other erythema noted, no calf tenderness Neuro: A&O x 3, no focal deficits noted, normal affect Skin: warm, dry Principal Diagnosis Atrial fibrillation with RVR Hyperthyroidism Acute pulmonary embolism Bronchiectasis GE junction adenocarcinoma Discharge Exam Sitting on a chair without any acute distress Constitutional + ill appearing and average body habitus Eyes PERRL, conjunctivae normal, anicteric sclerae ENMT external ear and nose normal, oropharynx normal Neck trachea midline, no thyromegaly Respiratory no respiratory distress Auscultation: lungs clear to auscultation bilaterally Cardiovascular Rate/Rhythm: regular rate and regular rhythm; not tachycardic Heart Sounds: normal S1 and normal S2; no murmur Extremities: no edema Gastrointestinal (Abdomen) Inspection/Auscultation: normal bowel sounds; abdomen not distended Percussion/Palpation: + abdomen tender (Mildly tender epigastrium) and abdomen soft Neurologic normal touch/pain/proprioception and moves all extremities; no focal motor deficits Lymphatic no cervical or axillary lymphadenopathy Discharge Data Allergies Allergy/AdvReac Type Severity Reaction Status Date / Time cetirizine AdvReac Intermediate Hallucinati Verified 02/22/24 09:26 ng hydroxyzine AdvReac Intermediate Hallucinati Verified 02/22/24 09:26 ng Consultations 02/22/24 12:51 ED Decision to Admit Stat 02/22/24 14:55 Consult Pulmonology Routine Ordered Studies 02/22/24 10:23 CT for pulmonary embolism PE [CT angio chest PE protocol] Stat CT head/brain wo con Stat 02/22/24 14:03 US venous doppler [facility] Urgent Hospital Course (1) Primary carcinoma of lower third of esophagus: Current symptoms of dysphagia, weakness, shortness of breath on exertion are related to carcinoma and complicated by her comorbid medical condition as mentioned below No more chemo as per the oncologist and the patient Ongoing radiation treatment-Willing to finish the course of radiation She will have remaining radiation from the facility She was asking for prognosis which I deferred to the oncologist In general prognosis is guarded Down the line she is asking for palliative care evaluation which will be done as an outpatient through her primary care physician She will be discharged to Center care this afternoon (2) Atrial fibrillation with RVR: Patient is 78-year-old female with PMH CAD s/p stent, atrial fibrillation, SSS s/p pacemaker, chronic HFpEF, HTN, HLD, DM II, esophageal cancer currently receiving chemo and radiation and others listed below presented to ER from oncology center for tachycardia. A-fib RVR H/O Afib. Previously on anticoagulation with Eliquis (discontinued due to GI bleed issues) Admits to having missed her metoprolol prior to admission due to difficulty swallowing Hyperthyroidism likely contributing as well Resume metoprolol succinate 150 mg twice a day On Lovenox for anticoagulation as below Discussed with endocrinology on 02/23/24: Start methimazole 10 mg twice a day. Needs follow-up with endocrinology as outpatient Monitor and replete electrolytes as needed Also on digoxin Added IV Lopressor as needed Stable for discharge Rate is controlled without any cardiac symptoms Hyperthyroidism--POA Low TSH, elevated free T4 Started on methimazole 10 mg twice daily Needs follow-up with endocrinology on discharge. Will update prior to discharge as requested. Continue current medications Electrolyte imbalance Hypokalemia Hypomagnesemia Replete electrolytes as needed Will monitor electrolytes-Unremarkable as of 03/01/2024 Minimal epistaxis Afrin as needed Resolved (3) History of GI bleed: 12/2023 Upper GI bleed in setting of GE junction adenocarcinoma, gastritis, and on on aspirin and Eliquis in which she was was treated with IV PPI, s/p PRBC transfusion Denies melena, hematochezia recently Continue PPI Monitor CBC- hemoglobin remained stable Progressive dysphagia Secondary to # GE junction adenocarcinoma Follows with [facility] onc[facility] and radiation oncology Currently undergoing chemotherapy-no more chemotherapy, ongoing radiation Needs follow-up with oncology on discharge No more chemotherapy as per the patient Ongoing radiation therapy and will have about 4 more therapy session Minimally improved swallowing Appreciate speech evaluation and recommendation no acute recurrent can do to Patient does not want to go for any PEG tube placement Has been tolerating liquid diet and remains reasonably medically stable Remains medically stable and she will be transferred to [facility] this afternoon (4) SOB (shortness of breath): (5) Pulmonary embolism: Acute pulmonary embolism Off Eliquis since 12/2023 secondary to GI bleed. SOB x several days. H/O Esophageal cancer --CTA Chest: Cardiomegaly with bilateral segmental and subsegmental pulmonary emboli and probable associated right heart strain. No pleural effusion or pulmonary infarct. Mild lingular and right middle lobe bronchiectasis with stable subcentimeter nodules including tree-in-bud nodules which are likely infectious or inflammatory. A chronic bronchiolitis such as nontuberculous mycobacterium considered. No lymphadenopathy. --ECHO: EF 45 to 50%. Mild concentric LVH. Mild global hypokinesis of left ventricle. Left atrium is severely dilated. Mild mitral regurgitation, trace tricuspid regurgitation, findings not suggestive of pulmonary hypertension. - IV heparin transition to therapeutic Lovenox Appreciate pulmonology input Discussed with pulmonology on 02/25/2024. No contraindication for discharge from respiratory standpoint Chest x-ray today showed no acute findings Continue Lovenox for anticoagulation Mild troponin elevation Likely demand ischemia secondary to above Doubt ACS (6) Neutropenia: Bronchiectasis Pulmonary nodules WBC: 1.5, Hgb: 9.7 (recent baseline), Plt: 147, ANC: 990 Likely due to chemotherapy No obvious source of infection Abnormal CT chest: Suggestive of bronchiectasis Repeat AFB culture--preliminary negative Empirically received doxycycline for 5 days Appreciate pulmonology input Neutropenia improved (7) Chronic heart failure with preserved ejection fraction (HFpEF): Appears euvolemic Continue torsemide (8) DM type 2 (diabetes mellitus, type 2): A1c: 7.4 Hold home glipizide Continue home Lantus NovoLog sliding scale per protocol Monitor BGs (9) Coronary artery disease: CAD s/p stent Continue aspirin, atorvastatin, metoprolol (10) Tachy-barbra syndrome: S/P Pacemaker Pacemaker interrogation (11) Hypertension: Continue metoprolol succinate Monitor (12) Dyslipidemia: Continue atorvastatin DVT Px Lovenox SQ CODE STATUS Full code Disposition SNF when accepted She will be discharged to [place] care this afternoon Total Time Total Time Spent Total Time Spent (In Minutes): 40 minutes Discharge Plan Discharge Items Patient Disposition: Transfer Inpatient Rehab Fac Reason For Visit: afib rvr, pe Discharge Diagnosis: Atrial fibrillation with RVR Hyperthyroidism Acute pulmonary embolism Bronchiectasis GE junction adenocarcinoma Condition on Discharge: Fair Activity: Per Instructions section Exercise/Sports: Gradually increase as tolerated Non-emergency contact: Primary Care Provider, Specialist, Oncologist and Topographical Engineer Call non-emergency contact if: you have any medication questions, your symptoms worsen, your pain is concerning for you and you have a fever Follow-up/Referrals: Jason West MD [Primary Care Provider] - (Please make an appointment with your PCP within 7 days following discharge from the facility) Diet: Carb Consistent or DM2 and Full liquid Addtl Attending Provider Instructions: Follow-up with your primary care physician in 1 week Follow-up with your wellness specialist in 1-2 weeks Follow-up with your oncologist for further management of GE junction adenocarcinoma Follow-up with your medical staff director as needed You will need to have a referral to see palliative care as an outpatient from your PCP -- Continue Lovenox sq 90 mg twice a day until further recommendations from your oncologist Seek immediate medical attention if your symptoms reoccur or worsen Please take all medications as instructed on discharge list below. Please call if you have any questions or problems. You can reach a [facility] hospitalist on duty at [facility] 24 hours a day by calling [phone] Pending Studies at Discharge: No Stand-Alone Forms: My [facility] Skilled Items Patient informed of condition?: Yes DNR: No Discharge Level of Care: Acute rehab Communicable Disease: No Discharge Prognosis: Stable Lines: None Urinary Catheter: No Medications and DC Order Prescriptions: New sucralfate 1 gram Tablet 1 g PO BID Qty: 60 0RF methimazole 5 mg Tablet 10 mg PO BID Qty: 60 0RF enoxaparin 100 mg/mL Syringe 90 mg subcut Q12 Qty: 60 0RF Continued loratadine [Claritin] 10 mg tablet 10 mg PO DAILY PRN (Reason: allergies) calcium carbonate-vitamin D3 [Calcium 600 with Vitamin D3] 600 mg-12.5 mcg (500 unit) capsule 1 cap PO BID metoprolol succinate 100 mg tablet extended release 24 hr 150 mg PO BID atorvastatin 40 mg Tablet 40 mg PO QAM Hold Instructions: Until further recommendations from your primary care physician nitroglycerin [Nitrostat] 0.4 mg Tablet, Sublingual 0.4 mg Sublingual DIRECTED PRN (Reason: Chest Pain) oxybutynin chloride 5 mg Tablet 5 mg PO BID insulin glargine [Lantus Solostar U-100 Insulin] 100 unit/mL (3 mL) insulin pen 20 unit SUBCUT BIDM Rx Instructions: 20 units per pt original 15 units aspirin 81 mg Tablet,Delayed Release (Dr/Ec) 81 mg PO QAM acetaminophen [Tylenol Extra Strength] 500 mg Tablet 1,000 mg PO TID PRN (Reason: PAIN/FEVER) Systane (PF) 0.4-0.3 % Dropperette 1 drp OPB Q2H PRN (Reason: Dry Eyes) magnesium oxide 400 mg magnesium Tablet 400 mg PO QDL torsemide 10 mg tablet 10 mg PO DAILY Qty: 30 0RF glipizide 5 mg tablet 5 mg PO BID digoxin 125 mcg (0.125 mg) tablet 0.125 mg PO PM midodrine 2.5 mg tablet 2.5 mg PO UD Rx Instructions: 1 tab upon awakening in am, 1 tab noon, 1 tab late afternoon (usually takes around 4p-5pm, no later than 6pm) pantoprazole 40 mg Tablet,Delayed Release (Dr/Ec) 40 mg PO BID Qty: 60 0RF Discharge Orders: Discharge Order (Routine); Ordered 03/02/24 Ordered By: Franco Miles/Other Patient Handouts: Managing Type 2 Diabetes Admission Data Admit Date/Time: 02/22/24 13:17 Attending Provider: Franco Pinedo Admit Provider: Mary Anne Rowley Primary Care Provider: Jason West Other Providers: [facility]; Dagmar Pickard [facility]; [place],[facility]; Mary Anne Rowley; Maranda Busby; Valerio Ken Other Interventions: Discharge Summary Assessment (RN) Last Done: 03/02/24 12:50
== END 2024-03-02 14:38 | DRG 176 ==
LOC: ED 10:13 → SUATTDRO 13:17 → 2E 13:17 → 3W 02-27 10:48